=== PATIENT | female | born 1935 | race Caucasian/White ===

== ENCOUNTER 2016-07-18 18:46 | Inpatient (IN) | payer BC, OTHER ==
[~2016-07-18] VITALS: Ht 160 cm; Wt 83.2 kg
[~2016-07-18 18:46] MED LIST: AMOX500C3 PO; ASPI81TA28 PO; BRIM0.2S OPB; CHOL100010 PO; CRS20 PO; LISI-461 PO; NTRGSL/4 UT; TPRSR/25 PO; WARF5TAB90 PO
[2016-07-18] MEDS ORDERED: SODIUM CHLORIDE 0.9% 1000ML 250 ML IV STA (19:13)
[2016-07-18] MEDS ORDERED: SODIUM CHLORIDE 0.9% 1000ML 1,000 ML IV STA (19:13)
[2016-07-18] MEDS ORDERED: TRAV0.00 OPB (19:28)
--- NOTE | 2016-07-18 19:29 | EMERGENCY ROOM VISIT NOTE ---
History Report prepared by Suleman: Brooklynn Gray Under the Supervision of: Dr. William Kirkland M.D. First contact with patient: 19:08 Chief Complaint: RECTAL BLEEDING Stated Complaint: BLOOD FROM RECTUM History of Present Illness The patient is an 81 year old female who presents to the Emergency Room with complaints of persistent rectal bleeding that occurred at 1710 today. She currently rates her discomfort as a 5/10 in severity. The patient states that she noticed pressure today around 1710 and states that she went to have a bowel movement. She states that with bowel movement was mostly blood, but noticed some stool. The patient states that she had abdominal pain yesterday and additionally had vomited and felt nauseous. She denies any history of a GI bleed and states that she is no longer on Coumadin. The patient states that she takes 81 mg aspirin daily. She states that when she had her abdominal pain yesterday, she took an Advil. The patient denies any urinary symptoms, shortness of breath, or chest pain. She notes a history of diverticulitis. Source of History: patient Onset: 1710 today Position: other (rectal) Symptom Intensity: 5/10 Quality: other (bleeding) Timing: other (persistent) Associated Symptoms: + abdominal pain, + nausea, + vomiting, No SOB, No chest pain, No urinary symptoms Review of Systems See HPI for pertinent positives & negatives. A total of 10 systems reviewed and were otherwise negative. Past Medical & Surgical Medical Problems: (1) CAD (coronary artery disease) (2) CKD (chronic kidney disease) stage 3, GFR 30-59 ml/min (3) Dyslipidemia (4) Glaucoma (5) History of DVT (deep vein thrombosis) (6) HTN (hypertension) (7) Macular degeneration (8) Spinal stenosis (9) Vitamin D deficiency Surgical Problems: (1) H/O cataract removal with insertion of prosthetic lens (2) H/O heart artery stent (3) History of bilateral knee arthroplasty (4) History of bilateral total hip arthroplasty (5) History of carpal tunnel surgery (6) History of hysterectomy Family History Cancer FH: CAD (coronary artery disease) BROTHER FH: CHF (congestive heart failure) FATHER FH: heart disease Hypertension Social History Smoking Status: Never Smoker Alcohol Use: none Drug Use: none Housing Status: lives alone Occupation Status: unemployed Current/Historical Medications Scheduled Aspirin (Aspirin Ec), 81 MG PO QPM Cholecalciferol (Vitamin D), 1,000 INTER.UNIT PO QPM Lisinopril (Lisinopril), 5 MG PO QPM Metoprolol Succinate (Metoprolol Succinate ER), 12.5 MG PO QPM Rosuvastatin Calcium (Crestor), 20 MG PO QPM Travoprost (Travatan Z), 1 DROP OPB HS Scheduled PRN Amoxicillin (Amoxil), 2,000 MG PO UD PRN for Prior to Dental Appointment Nitroglycerin (Nitrostat), 0.4 MG UT UD PRN for Chest Pain Allergies Coded Allergies: No Known Allergies (Verified , 07/18/16) Physical Exam Vital Signs Date Time Temp Pulse Resp B/P Pulse Ox O2 Delivery O2 Flow Rate FiO2 07/18/16 20:45 64 07/18/16 18:49 37.0 76 18 180/81 95 Room Air Physical Exam GENERAL: Patient is in no acute distress. HEENT: No acute trauma, normocephalic atraumatic, mucous membranes moist, no nasal congestion, no scleral icterus. NECK: No stridor, no adenopathy, no meningismus, trachea is midline. LUNGS: Clear to auscultation bilaterally, no wheeze, no rhonchi, breath sounds equal. HEART: Without murmurs gallops or rubs, regular rate and rhythm. ABDOMEN: Slightly tender in epigastrium and somewhat along left abdomen. Soft, bowel sounds positive, no hernias, no peritonitis. RECTAL: Maroon, dark, blood per rectum, no external source for bleeding, no rectal mass by exam. Heme positive. EXTREMITIES: No cyanosis or edema, full range of motion of all the joints without pain or difficulty, no signs for acute trauma. NEUROLOGIC: Oriented x 3, no acute motor or sensory deficits, no focal weakness. SKIN: No rash, no jaundice, no diaphoresis. Medical Decision & Procedures ER Provider Diagnostic Interpretation: X-ray results as stated below per interpretation by me and the radiologist: CHEST ONE VIEW PORTABLE CLINICAL HISTORY: Abdominal pain. COMPARISON STUDY: Chest radiograph May 09, 2014. FINDINGS: There is no lucency under the hemidiaphragms to suggest pneumoperitoneum on this exam. Lung volumes are normal. Lungs are clear. There is no pneumothorax or pleural effusion. Cardiomegaly and mediastinal silhouette is stable. There is no evidence of pulmonary edema. Linear right lung opacity suggests atelectasis. Mild left basilar opacity favors atelectasis. IMPRESSION: No acute cardiopulmonary findings. Electronically signed by: David Holland M.D. 07/18/2016 7:38 PM Dictated Date/Time: 07/18/2016 7:37 PM Laboratory Results 07/18/16 19:40 Red Blood Count 4.06, Mean Corpuscular Volume 86.2, Mean Corpuscular Hemoglobin 29.1, Mean Corpuscular Hemoglobin Concent 33.7, Mean Platelet Volume 9.0, Neutrophils (%) (Auto) 61.9, Lymphocytes (%) (Auto) 22.6, Monocytes (%) (Auto) 11.4, Eosinophils (%) (Auto) 3.7, Basophils (%) (Auto) 0.1, Neutrophils # (Auto ) 4.49, Lymphocytes # (Auto) 1.64, Monocytes # (Auto) 0.83, Eosinophils # (Auto ) 0.27, Basophils # (Auto) 0.01 07/18/16 19:40 Test 07/18/16 19:40 07/18/16 20:29 White Blood Count 7.26 K/uL (4.8-10.8) Red Blood Count 4.06 M/uL (4.2-5.4) Hemoglobin 11.8 g/dL (12.0-16.0) Hematocrit 35.0 % (37-47) Mean Corpuscular Volume 86.2 fL (80-100) Mean Corpuscular Hemoglobin 29.1 pg (25-34) Mean Corpuscular Hemoglobin Concent 33.7 g/dl (32-36) Platelet Count 285 K/uL (130-400) Mean Platelet Volume 9.0 fL (7.4-10.4) Neutrophils (%) (Auto) 61.9 % Lymphocytes (%) (Auto) 22.6 % Monocytes (%) (Auto) 11.4 % Eosinophils (%) (Auto) 3.7 % Basophils (%) (Auto) 0.1 % Neutrophils # (Auto) 4.49 K/uL (1.4-6.5) Lymphocytes # (Auto) 1.64 K/uL (1.2-3.4) Monocytes # (Auto) 0.83 K/uL (0.11-0.59) Eosinophils # (Auto) 0.27 K/uL (0-0.5) Basophils # (Auto) 0.01 K/uL (0-0.2) RDW Standard Deviation 43.8 fL (36.4-46.3) RDW Coefficient of Variation 13.9 % (11.5-14.5) Immature Granulocyte % (Auto) 0.3 % Immature Granulocyte # (Auto) 0.02 K/uL (0.00-0.02) Prothrombin Time 10.9 SECONDS (9.0-12.0) Prothromb Time International Ratio 1.0 (0.9-1.1) Activated Partial Thromboplast Time 28.9 SECONDS (21.0-31.0) Partial Thromboplastin Ratio 1.1 Anion Gap 6.0 mmol/L (3-11) Est Creatinine Clear Calc Drug Dose 37.9 ml/min Estimated GFR () 49.1 Estimated GFR (Non- 42.4 BUN/Creatinine Ratio 18.0 (10-20) Calcium Level 9.4 mg/dl (8.5-10.1) Total Bilirubin 0.2 mg/dl (0.2-1) Aspartate Amino Transf (AST/SGOT) 23 U/L (15-37) Alanine Aminotransferase (ALT/SGPT) 18 U/L (12-78) Alkaline Phosphatase 154 U/L (45-117) Total Protein 7.6 gm/dl (6.4-8.2) Albumin 3.2 gm/dl (3.4-5.0) Globulin 4.4 gm/dl (2.5-4.0) Albumin/Globulin Ratio 0.7 (0.9-2) Laboratory results reviewed by me. Medications Administered Medications (Trade) Dose Ordered Sig/Allison Route Start Time Stop Time Status Last Admin Dose Admin Sodium Chloride 250 ml @ 999 mls/hr Q16M STAT IV 07/18/16 19:13 07/18/16 19:28 DC 07/18/16 20:04 999 MLS/HR Sodium Chloride 1,000 ml @ 200 mls/hr Q5H STAT IV 07/18/16 19:13 07/19/16 00:12 07/18/16 20:04 200 MLS/HR Pantoprazole Sodium 80 mg/ Dextrose 120 ml @ 480 mls/hr TODAY@1945 IV 07/18/16 19:45 07/18/16 19:59 DC 07/18/16 19:58 480 MLS/HR Pantoprazole Sodium/Dextrose (Protonix Inj/D5 100ml) 100 ml @ 20 mls/hr Q5H IV 07/18/16 20:00 07/19/16 00:59 07/18/16 19:58 20 MLS/HR ECG Indication: other (GI bleed) Rate (beats per minute): 64 Rhythm: normal sinus Findings: no acute ischemic change, no ectopy ED Course 1911: The patient was evaluated in room B8. A complete history and physical exam was performed. 1912: Ordered Sodium Chloride 1000 ml @ 200 mls/hr IV, Sodium Chloride 250 mls/ hr IV. 1944: Ordered Pantoprazole Sodium 80 mg/Dextrose 120 ml @ 480 mls/hr IV. 1999: Ordered Pantoprazole Sodium 40 mg/Dextrose 100 ml @ 20 mls/hr IV. 2026: I discussed the patients case with Rayna Carmichael. She is going to evaluate the patient for further treatment. 2030: I reevaluated the patient and she is resting comfortably. I discussed the exam findings with her and I discussed the treatment plan. She verbalized complete understanding and agreement. She is going to be evaluated for further treatment. Medical Decision The patient is an 81 year old female who presents to the ED with complaints of rectal bleeding. Differential diagnoses considered include upper or lower GI bleeding, diverticular bleeding, ulcer or gastritis, coagulopathy, anemia, electrolyte imbalance. There is no leukocytosis or concerning anemia. No significant electrolyte abnormality, kidney failure, hepatitis. There is no coagulopathy. Chest film shows no free air or pneumonia. EKG shows a sinus rhythm, no acute ischemia. The patient was given IV saline, she received IV Protonix. The patient is doing well, she is stable. She does have maroon-colored blood per my rectal exam and likely has a lower GI bleed. Admission/observation is warranted. I spoke with the patient and case management. The on-call hospitalist was consulted. Consults Time Called: 2025 Consulting Physician: Rayna Carmichael Returned Call: 2026 I discussed the patients case with Rayna Carmichael. She is going to evaluate the patient for further treatment. Impression Primary Impression: Rectal bleeding Scribe Attestation The scribe's documentation has been prepared under my direction and personally reviewed by me in its entirety. I confirm that the note above accurately reflects all work, treatment, procedures, and medical decision making performed by me. Departure Information Dispostion Being Evaluated By Hospitalist Margarito Pace M.D. (PCP)
--- NOTE | 2016-07-18 19:39 | DIAGNOSTIC IMAGING REPORT ---
CHEST ONE VIEW PORTABLE CLINICAL HISTORY: Abdominal pain. COMPARISON STUDY: Chest radiograph May 09, 2014. FINDINGS: There is no lucency under the hemidiaphragms to suggest pneumoperitoneum on this exam. Lung volumes are normal. Lungs are clear. There is no pneumothorax or pleural effusion. Cardiomegaly and mediastinal silhouette is stable. There is no evidence of pulmonary edema. Linear right lung opacity suggests atelectasis. Mild left basilar opacity favors atelectasis. IMPRESSION: No acute cardiopulmonary findings. Electronically signed by: David Holland M.D. 07/18/2016 7:38 PM Dictated Date/Time: 07/18/2016 7:37 PM
[2016-07-18] MEDS ORDERED: PANTOprazole INJ 80 MG in DEXTROSE 5% 100ML IV SCH (19:45)
[2016-07-18 19:52] LABS: BASO % 0.1 %; BASO ABS # 0.01 K/uL (0-0.2); COMPLETE YES; EOS % 3.7 %; IG% 0.3 %; LYMPH % 22.6 %; LYMPH ABS # 1.64 K/uL (1.2-3.4); MEAN CELL VOLUME 86.2 fL (80-100); MEAN CORPUSCULAR HEMOGLOBIN 29.1 pg (25-34); MEAN CORPUSCULAR HGB CONC 33.7 g/dl (32-36); MONO % 11.4 %; NEUT % 61.9 %; PLATELET COUNT 285 K/uL (130-400); RED BLOOD COUNT 4.06 M/uL (4.2-5.4); WHITE BLOOD COUNT 7.26 K/uL (4.8-10.8)
[2016-07-18] MEDS ORDERED: PANTOprazole INJ 40 MG in DEXTROSE 5% 100ML IV SCH (20:00)
[2016-07-18 20:02] LABS: PARTIAL THROMBOPLASTIN RATIO 1.1; PROTHROMBIN TIME (PATIENT) 10.9 SECONDS (9.0-12.0)
[2016-07-18 20:14] LABS: CALCIUM 9.4 mg/dl (8.5-10.1); CREATININE 1.2 mg/dl (0.60-1.20); POTASSIUM 3.9 mmol/L (3.5-5.1)
[2016-07-18 20:17] LABS: ALB/GLOB RATIO 0.7 (0.9-2)
[2016-07-18] MEDS ORDERED: ACETAMINOPHEN 325 MG TAB PO PRN (21:15)
[2016-07-18] MEDS ORDERED: OPTIRAY 320 IV PRN (21:15)
[2016-07-18] MEDS ORDERED: NITROGLYCERIN 0.4 MG SL PER TAB CHARGE SL PRN (21:15)
[2016-07-18] MEDS ORDERED: ONDANSETRON INJ 2 MG/ML 2 ML VIAL IV PRN (21:15)
--- NOTE | 2016-07-18 21:48 | History and Physical ---
History & Physical Date & Time of Service: Jul 18, 2016 at 21:27 Chief Complaint: Blood From Rectum Primary Care Physician: Margarito aDy M.D. History of Present Illness Source: patient This is an 81 y/o female with PMHx of CKD stage 3, CAD s/p stent placement, HTN , Dyslipidemia and other problems as outlined below who presents to the ED c/o rectal bleed that began this evening. Pt reports that around 1710 she noticed bright red blood in her BM. She states that it "filled the toilet bowl". Her sxs are assoc with LLQ abd pain and N/V yesterday. She had one more episode of bloody BM before leaving for the ED. Pt takes a baby ASA daily but is not on any other anticoagulation. She reports that she was told she had diverticulitis "years" ago but she has never had a GI bleed and never required a transfusion. Last colonoscopy was in 2005 which showed diverticulosis throughout the colon. Pt denies fever/chills, diaphoresis, chest pain, palpitations, SOB, bladder issues, LE edema, calf pain, lightheadedness/dizziness. In the ED, vitals are stable. HgB 11.8. BUN 22. Pt has not had any more bleeding since arrival to the ED. She is hemodynamically stable and will be admitted for further evaluation and treatment. Past Medical/Surgical History Medical Problems: (1) CAD (coronary artery disease) Permanent Comment: DENA to RCA 06/2009 cath 06/2010 showed widely patent RCA and no progression of disease Status: Chronic (2) CKD (chronic kidney disease) stage 3, GFR 30-59 ml/min Status: Chronic (3) Dyslipidemia Status: Chronic (4) Glaucoma Status: Chronic (5) History of DVT (deep vein thrombosis) Status: Resolved (6) HTN (hypertension) Status: Chronic (7) Macular degeneration Status: Chronic (8) Spinal stenosis Status: Chronic (9) Vitamin D deficiency Status: Chronic Surgical Problems: (1) H/O cataract removal with insertion of prosthetic lens Status: Resolved (2) H/O heart artery stent Permanent Comment: DENA to RCA in 2009 Status: Resolved (3) History of bilateral knee arthroplasty Status: Resolved (4) History of bilateral total hip arthroplasty Status: Resolved (5) History of carpal tunnel surgery Status: Resolved (6) History of hysterectomy Status: Resolved Family History Cancer FH: CAD (coronary artery disease) BROTHER FH: CHF (congestive heart failure) FATHER FH: heart disease Hypertension Social History Smoking Status: Never Smoker Alcohol Use: occasionally (beer) Drug Use: none Marital Status: single Housing status: lives alone Occupational Status: retired Immunizations History of Influenza Vaccine: Yes History of Tetanus Vaccine?: UTD History of Pneumococcal: Unknown History of Hepatitis B Vaccine: Unknown Multi-Drug Resistant Organisms History of MDRO: No Allergies Coded Allergies: No Known Allergies (Verified , 07/18/16) Home Medications Scheduled Aspirin (Aspirin Ec), 81 MG PO QPM Cholecalciferol (Vitamin D), 1,000 INTER.UNIT PO QPM Lisinopril (Lisinopril), 5 MG PO QPM Metoprolol Succinate (Metoprolol Succinate ER), 12.5 MG PO QPM Rosuvastatin Calcium (Crestor), 20 MG PO QPM Travoprost (Travatan Z), 1 DROP OPB HS Scheduled PRN Amoxicillin (Amoxil), 2,000 MG PO UD PRN for Prior to Dental Appointment Nitroglycerin (Nitrostat), 0.4 MG UT UD PRN for Chest Pain Review of Systems Constitutional: No chills, No fatigue, No fever, No sweats, No weakness Eyes: No worsening of vision ENT: No hearing loss Respiratory: No cough, No shortness of breath Cardiovascular: No chest pain, No claudication, No edema, No palpitations Abdomen: + GI bleeding, + nausea, + vomiting, No constipation, No diarrhea, No pain Musculoskeletal: No calf pain, No swelling Genitourinary - Female: No dysuria Neurologic: No weakness Psychiatric: No depression symptoms Endocrine: No fatigue Hematologic / Lymphatic: + abnormal bleeding/bruising (see above) Integumentary: No new/changing skin lesions Physical Exam Vital Signs Date Time Temp Pulse Resp B/P Pulse Ox O2 Delivery O2 Flow Rate FiO2 07/18/16 20:45 64 07/18/16 18:49 37.0 76 18 180/81 95 Room Air General Appearance: WD/WN, no apparent distress, + pertinent finding (Pt is sitting up in bed with son at bedside ) Head: normocephalic, atraumatic Eyes: normal inspection ENT: hearing grossly normal Neck: supple Respiratory/Chest: chest non-tender, lungs clear, normal breath sounds, no respiratory distress Cardiovascular: regular rate, rhythm, no edema, no murmur Abdomen/GI: normal bowel sounds, soft, + tenderness (LLQ) Back: normal inspection Extremities/Musculoskelatal: normal inspection, no calf tenderness, no pedal edema Neurologic/Psych: alert, normal mood/affect, oriented x 3 Skin: normal color, warm/dry Diagnostics Laboratory Results Results Past 24 Hours Test 07/18/16 19:40 07/18/16 21:14 Range/Units White Blood Count 7.26 4.8-10.8 K/uL Red Blood Count 4.06 4.2-5.4 M/uL Hemoglobin 11.8 12.0-16.0 g/dL Hematocrit 35.0 37-47 % Mean Corpuscular Volume 86.2 80-100 fL Mean Corpuscular Hemoglobin 29.1 25-34 pg Mean Corpuscular Hemoglobin Concent 33.7 32-36 g/dl Platelet Count 285 130-400 K/uL Mean Platelet Volume 9.0 7.4-10.4 fL Neutrophils (%) (Auto) 61.9 % Lymphocytes (%) (Auto) 22.6 % Monocytes (%) (Auto) 11.4 % Eosinophils (%) (Auto) 3.7 % Basophils (%) (Auto) 0.1 % Neutrophils # (Auto) 4.49 1.4-6.5 K/uL Lymphocytes # (Auto) 1.64 1.2-3.4 K/uL Monocytes # (Auto) 0.83 0.11-0.59 K/uL Eosinophils # (Auto) 0.27 0-0.5 K/uL Basophils # (Auto) 0.01 0-0.2 K/uL RDW Standard Deviation 43.8 36.4-46.3 fL RDW Coefficient of Variation 13.9 11.5-14.5 % Immature Granulocyte % (Auto) 0.3 % Immature Granulocyte # (Auto) 0.02 0.00-0.02 K/uL Prothrombin Time 10.9 9.0-12.0 SECONDS Prothromb Time International Ratio 1.0 0.9-1.1 Activated Partial Thromboplast Time 28.9 21.0-31.0 SECONDS Partial Thromboplastin Ratio 1.1 Sodium Level 139 136-145 mmol/L Potassium Level 3.9 3.5-5.1 mmol/L Chloride Level 106 98-107 mmol/L Carbon Dioxide Level 27 21-32 mmol/L Anion Gap 6.0 3-11 mmol/L Blood Urea Nitrogen 22 7-18 mg/dl Creatinine 1.20 0.60-1.20 mg/dl Est Creatinine Clear Calc Drug Dose 37.9 ml/min Estimated GFR () 49.1 Estimated GFR (Non- 42.4 BUN/Creatinine Ratio 18.0 10-20 Random Glucose 99 70-99 mg/dl Calcium Level 9.4 8.5-10.1 mg/dl Total Bilirubin 0.2 0.2-1 mg/dl Aspartate Amino Transf (AST/SGOT) 23 15-37 U/L Alanine Aminotransferase (ALT/SGPT) 18 12-78 U/L Alkaline Phosphatase 154 45-117 U/L Total Protein 7.6 6.4-8.2 gm/dl Albumin 3.2 3.4-5.0 gm/dl Globulin 4.4 2.5-4.0 gm/dl Albumin/Globulin Ratio 0.7 0.9-2 Diagnostic Radiology CXR IMPRESSION: No acute cardiopulmonary findings. Impression Assessment and Plan RECTAL BLEED; POSSIBLY SECONDARY TO ACUTE DIVERTICULITIS pt presented with c/o rectal bleed that began this evening assoc with LLQ abd pain -admit to telemetry -pt is not on anticoagulation and does not use NSAIDs -Hgb currently 11.8; will continue to monitor with H&H q 8h and transfuse PRN HgB <10 (with h/o heart disease) -obtain CT abd/pelvis to r/o diverticulitis -hold ASA -cont IVF and Protonix drip -type and screen completed -consult GI, Dr. Bobo-pending input -pt appears to be hemodynamically stable -continue to monitor closely CKD STAGE 3 -creatinine at baseline -cont to monitor with prp daily and avoid nephrotoxic agents when able CORONARY ARTERY DISEASE -s/p stent placement to RCA in 2009 -hold ASA due to GI bleed -cont metoprolol and statin -pt denies anginal sxs -monitor HTN -BP stable -cont lisinopril and metoprolol -monitor DYSLIPIDEMIA -cont statin DVT PROPHYLAXIS -SCDs only in setting of GI bleed CODE STATUS -FULL CODE per discussion with patient upon admission DISPO Pt seen in collaboration with Dr Morris. Please see her addendum for further details. Thanks! -Of note: patient will be followed by Dr. Pal starting tomorrow AM. ATTENDING ADDENDUM Record reviewed. Patient interviewed and examined. I have examined the patient and agree with the findings above. Care coordinated with Laura Rivera PA-C. Please refer to her documentation for patient's history. Carri Morris, DO Hospitalist VTE Prophylaxis VTE Risk Assessment Done? Y/N: Yes Risk Level: Moderate
--- NOTE | 2016-07-18 22:18 | DIAGNOSTIC IMAGING REPORT ---
CT OF THE ABDOMEN AND PELVIS WITH CONTRAST CLINICAL HISTORY: Blood from rectum. Evaluate for acute diverticulitis. COMPARISON STUDY: CT of the abdomen and pelvis June 01, 2009. TECHNIQUE: Following IV administration of 116 mL of Optiray-320, axial images of the abdomen and pelvis were obtained from the lung bases to the proximal femurs. Images were reviewed in the axial, sagittal, and coronal planes. IV contrast was administered without complication. CT DOSE: 627.17 mGy.cm FINDINGS: Visualized portions of the lower lungs demonstrate a 5 mm right lower lobe nodule shown image 29 of 441 which is unchanged since CT of June 01, 2009. Therefore, this is benign. There is a small hiatal hernia. Moderate cardiomegaly is noted. The liver, spleen, adrenal glands are unremarkable. A gallstone is noted within the gallbladder. There is no pericholecystic infiltration. There may be mild infiltration adjacent to the pancreatic neck. There is no pancreatic ductal dilatation. A right renal cyst is noted. There are suspected bilateral parapelvic cysts. Moderate renal cortical thinning is noted. There is no evidence for a bowel obstruction. There is extensive pancolonic diverticulosis. There is mild infiltration and colonic wall thickening of the distal descending colon. There is no free air or abscess. Images of the pelvis are degraded by streak artifact from bilateral hip arthroplasties. No suspicious osseous lesions are present. IMPRESSION: 1. Mild acute diverticulitis of the distal descending colon. No free air or abscess. Severe pancolonic diverticulosis. 2. Possible minimal peripancreatic infiltration. This could be correlated with laboratory evidence of acute pancreatitis. 3. Cholelithiasis. Electronically signed by: David Holland M.D. 07/18/2016 10:17 PM Dictated Date/Time: 07/18/2016 10:08 PM
[2016-07-18 23:20] VITALS: BP 104/64; PULSE 60; TEMP 36.7; O2SAT 98; Ht 160 cm; Wt 83.2 kg
[2016-07-18] MEDS: SODIUM CHLORIDE 0.9% 1000ML 1,000 ML IV SCH (23:53)
[2016-07-18] MEDS: PANTOprazole INJ 40 MG in DEXTROSE 5% 100ML IV SCH (23:53)
[2016-07-19 02:29] LABS: HEMATOCRIT 31.3 % (37-47); MEAN CORPUSCULAR HEMOGLOBIN 28.8 pg (25-34); MEAN CORPUSCULAR HGB CONC 33.5 g/dl (32-36); MEAN PLATELET VOLUME 9.2 fL (7.4-10.4); PLATELET COUNT 246 K/uL (130-400); RED BLOOD COUNT 3.64 M/uL (4.2-5.4); WHITE BLOOD COUNT 6.74 K/uL (4.8-10.8)
[2016-07-19 02:46] LABS: BUN/CREATININE RATIO 17.7 (10-20); CALCIUM 8.5 mg/dl (8.5-10.1); CREATININE 1.1 mg/dl (0.60-1.20); POTASSIUM 3.9 mmol/L (3.5-5.1)
[2016-07-19 03:55] VITALS: BP_SYST 158; BP_SYST 159; BP_SYST 175; BP_DIAS 80; BP_DIAS 83; BP_DIAS 85; PULSE 63; TEMP 36.4; O2SAT 96
[2016-07-19] MEDS: METRONIDAZOLE / NSS 500 MG in PREMIXED NSS 100 ML IV SCH ×3 (04:05→19:29)
[2016-07-19] MEDS: PANTOprazole INJ 40 MG in DEXTROSE 5% 100ML IV SCH ×4 (04:53→21:25)
[2016-07-19] MEDS: SODIUM CHLORIDE 0.9% 1000ML 1,000 ML IV SCH (05:27)
[2016-07-19] MEDS: CIPROFLOXACIN / D5W 400 MG in PREMIXED IN D5W 200 ML IV SCH ×2 (05:27→15:42)
[2016-07-19 06:58] VITALS: BP 112/68; PULSE 52; TEMP 36.7; O2SAT 94
[2016-07-19] MEDS ORDERED: PANTOprazole INJ 40 MG in SYRINGE 0 ML IV SCH (09:00)
--- NOTE | 2016-07-19 09:20 | Gastrointestinal Consultation ---
Gastrointestinal Consultation Date of Consultation: Jul 19, 2016 Consulting Physician: Kosta Reason for Consultation: rectal bleed History of Present Illness Patient is a 81 year old female with past medical history significant for CAD, HTN, macular degeneration, HTN, glaucoma, chronic ischemic heart disease, vitamin D deficiency, spinal stenosis, hyperlipidemia, raynaud's, history of DVT and CKD3. She presented to the ED with episodes of rectal bleeding, GI was consulted for management. She reports that yesterday she started with left lower quadrant abdominal pain. The pain was constant and did not radiate. She reports it was a sharp pain. There was a sudden urge to have a BM - this was BRB with clots and a small amount of stool. She had a few more episodes of bloody BM at home before seeking medical attention. This morning she reports she had a formed BM with less blood and without clots. She is denying any nausea or vomiting. No fever, chills, chest pain, SOB. She reports that she wants to go home. CT ABD: 07/18/16: Mild acute diverticulitis of the distal descending colon. No free air or abscess. Severe pancolonic diverticulosis. Possible minimal peripancreatic infiltration. This could be correlated with laboratory evidence of acute pancreatitis. Cholelithiasis. Colonoscopy 06/01/2005: The perianal and digital rectal examinations were normal. Multiple small and large-mouthed diverticula were found in the entire colon. Internal hemorrhoids were seen. Past Medical/Surgical History Medical Problems: (1) Rectal bleeding Status: Acute Family History Cancer FH: CAD (coronary artery disease) BROTHER FH: CHF (congestive heart failure) FATHER FH: heart disease Hypertension Social History Smoking Status: Unknown if Ever Smoked Alcohol Use: none Drug Use: none Marital Status: single Housing Status: lives alone Occupation Status: retired Allergies Coded Allergies: No Known Allergies (Verified , 07/18/16) Current Medications Home Meds and Scripts Medications Dose Route/Sig Max Daily Dose Days Date Category Dose Instructions Travatan Z (Travoprost) 0.004 % Ananda 1 Drop OPB HS 07/18/16 Reported Aspirin Ec (Aspirin) 81 Mg Tab 81 Mg PO QPM 03/01/14 Reported Amoxil (Amoxicillin) 500 Mg Cap 2,000 Mg PO UD PRN 03/01/14 Reported NEEDED ONE HOUR PRIOR TO DENTAL APPOINTMENTS. Lisinopril 10 Mg Tab 5 Mg PO QPM 03/01/14 Reported Crestor (Rosuvastatin Calcium) 20 Mg Tab 20 Mg PO QPM 03/01/14 Reported Metoprolol Succinate ER (Metoprolol Succinate) 25 Mg Tabcr 12.5 Mg PO QPM 03/01/14 Reported Vitamin D (Cholecalciferol) 1,000 Inter.unit Tab 1,000 Inter.unit PO QPM 11/19/10 Reported Nitrostat (Nitroglycerin) 0.4 Mg Tab 0.4 Mg UT UD PRN 11/19/10 Reported Review of Systems Constitutional: No chills, No fever Respiratory: No cough, No shortness of breath Cardiac: No chest pain, No edema Abdomen: + pain, No GI bleeding (lower, BRB, mixed with stool, no clots today) , No constipation, No diarrhea, No nausea, No vomiting Physical Exam Date Time Temp Pulse Resp B/P Pulse Ox O2 Delivery O2 Flow Rate FiO2 07/19/16 06:58 36.7 52 18 112/68 94 Room Air 07/19/16 04:00 Room Air 07/19/16 03:55 36.4 63 18 158/83 96 Room Air 159/80 175/85 07/19/16 00:00 Room Air 07/18/16 23:20 36.7 60 20 104/64 98 Room Air 07/18/16 22:07 37.0 63 20 175/87 95 07/18/16 21:26 63 20 07/18/16 21:21 63 16 07/18/16 21:16 66 23 07/18/16 21:12 175/87 07/18/16 21:11 64 25 07/18/16 21:06 66 20 07/18/16 21:01 61 15 07/18/16 20:56 67 24 07/18/16 20:51 64 27 07/18/16 20:46 65 17 07/18/16 20:45 64 07/18/16 18:49 37.0 76 18 180/81 95 Room Air General Appearance: no apparent distress Eyes: PERRL ENT: hearing grossly normal Neck: supple, trachea midline Respiratory/Chest: lungs clear, normal breath sounds, no respiratory distress, no accessory muscle use Cardiovascular: regular rate, rhythm, no edema, no gallop, no JVD Abdomen: normal bowel sounds, soft, no organomegaly, no pulsatile mass, + tenderness (left lower quadrant abdominal pain, worse with palpation, no radiation of pain) Neurologic/Psych: alert, normal mood/affect, oriented x 3 Skin: normal color, no jaundice, warm/dry Laboratory Results Last 24 Hours Test 07/18/16 19:40 07/18/16 21:14 07/19/16 02:13 White Blood Count 7.26 K/uL 6.74 K/uL Red Blood Count 4.06 M/uL 3.64 M/uL Hemoglobin 11.8 g/dL 10.5 g/dL Hematocrit 35.0 % 31.3 % Mean Corpuscular Volume 86.2 fL 86.0 fL Mean Corpuscular Hemoglobin 29.1 pg 28.8 pg Mean Corpuscular Hemoglobin Concent 33.7 g/dl 33.5 g/dl Platelet Count 285 K/uL 246 K/uL Mean Platelet Volume 9.0 fL 9.2 fL Neutrophils (%) (Auto) 61.9 % Lymphocytes (%) (Auto) 22.6 % Monocytes (%) (Auto) 11.4 % Eosinophils (%) (Auto) 3.7 % Basophils (%) (Auto) 0.1 % Neutrophils # (Auto) 4.49 K/uL Lymphocytes # (Auto) 1.64 K/uL Monocytes # (Auto) 0.83 K/uL Eosinophils # (Auto) 0.27 K/uL Basophils # (Auto) 0.01 K/uL RDW Standard Deviation 43.8 fL 43.8 fL RDW Coefficient of Variation 13.9 % 13.9 % Immature Granulocyte % (Auto) 0.3 % Immature Granulocyte # (Auto) 0.02 K/uL Prothrombin Time 10.9 SECONDS Prothromb Time International Ratio 1.0 Activated Partial Thromboplast Time 28.9 SECONDS Partial Thromboplastin Ratio 1.1 Sodium Level 139 mmol/L 143 mmol/L Potassium Level 3.9 mmol/L 3.9 mmol/L Chloride Level 106 mmol/L 110 mmol/L Carbon Dioxide Level 27 mmol/L 23 mmol/L Anion Gap 6.0 mmol/L 10.0 mmol/L Blood Urea Nitrogen 22 mg/dl 20 mg/dl Creatinine 1.20 mg/dl 1.10 mg/dl Est Creatinine Clear Calc Drug Dose 37.9 ml/min 41.3 ml/min Estimated GFR () 49.1 54.5 Estimated GFR (Non- 42.4 47.0 BUN/Creatinine Ratio 18.0 17.7 Random Glucose 99 mg/dl 110 mg/dl Calcium Level 9.4 mg/dl 8.5 mg/dl Total Bilirubin 0.2 mg/dl Aspartate Amino Transf (AST/SGOT) 23 U/L Alanine Aminotransferase (ALT/SGPT) 18 U/L Alkaline Phosphatase 154 U/L Total Protein 7.6 gm/dl Albumin 3.2 gm/dl Globulin 4.4 gm/dl Albumin/Globulin Ratio 0.7 Lactic Acid Level 0.9 mmol/L Impression Patient is a 81 year old female with LLQ abdominal pain and BRBPR. Differentials include diverticular bleed, ischemic colitis, malignancy etc. There is CT evidence of acute diverticulitis. She reports the BRBPR is slowing down in frequency and quantity. HGB today 10.5 after IVFs Plan Trend H&H Transfuse as needed Cover with IV cipro/flagyl while admitted Continue treatment with cipro/flagyl as an outpatient Advance to low residue diet as tolerated miralax once daily Discussed colonoscopy suggest 6 weeks as an outpatient I have seen and evaluated the patient. Gastroenterology is consulted at for evaluation of diverticulitis and hematochezia. The patient notes that she had sudden onset of left-sided abdominal discomfort with imaging showing evidence of diverticulitis. She also notes having hematochezia with bowel movements with blood on toilet paper and in the water. She does not have bloody bowel movements at this time and notes that her symptoms are improving. Physical examination No obvious distress Left lower quadrant with mild tenderness No peritoneal signs Impression: Patient with imaging evidence suggestive of diverticulitis. Her hematochezia is likely related to an anorectal etiology such as hemorrhoids or perhaps ischemic colitis. I would suggest that the patient complete a two-week course of antibiotics. I would suggest advancing her diet as tolerated. She will undergo a repeat colonoscopy as an outpatient in 6-8 weeks. Recommendations Complete a two-week course of antibiotics as you're doing Advance diet as tolerated Begin MiraLAX 17 g per day Please call with any questions or concerns, GI to sign off at this time.
[2016-07-19 11:24] VITALS: BP 105/56; PULSE 63; TEMP 36.8; O2SAT 95
[2016-07-19 12:43] LABS: HEMATOCRIT 33.2 % (37-47)
--- NOTE | 2016-07-19 13:27 | Progress Note ---
Medicine Progress Note Date & Time of Visit: Jul 19, 2016 at 13:20. Subjective patient seen sitting up in bed appears comfortable overall states abdominal pain has resolved (+) formed BM, minimal blood no chest pain,dyspnea, dizziness denies other symptoms Objective Last 8 Hrs Date Time Temp Pulse Resp B/P Pulse Ox O2 Delivery O2 Flow Rate FiO2 07/19/16 11:24 36.8 63 18 105/56 95 Room Air 07/19/16 08:45 Room Air 07/19/16 06:58 36.7 52 18 112/68 94 Room Air Physical Exam: General- oriented x 3, not in distress, speaks in sentences with no effort Head- atraumatic Eyes- EOMI, anicteric ENT- oropharynx clear Neck- supple, no JVD, no adenopathy, no thyromegaly Lungs- clear breath sounds bilaterally Heart-normal rate, regular rhythm; no murmurs Abdomen- normal bowel sounds, soft, nontender Extremities- no pretibial edema, no calf tenderness; peripheral pulses intact Neuro- alert, oriented x 3; no gross deficits Skin- warm & dry Laboratory Results: Last 24 Hours Test 07/18/16 19:40 07/18/16 21:14 07/19/16 02:13 07/19/16 12:37 White Blood Count 7.26 K/uL 6.74 K/uL Red Blood Count 4.06 M/uL 3.64 M/uL Hemoglobin 11.8 g/dL 10.5 g/dL 11.0 g/dL Hematocrit 35.0 % 31.3 % 33.2 % Mean Corpuscular Volume 86.2 fL 86.0 fL Mean Corpuscular Hemoglobin 29.1 pg 28.8 pg Mean Corpuscular Hemoglobin Concent 33.7 g/dl 33.5 g/dl Platelet Count 285 K/uL 246 K/uL Mean Platelet Volume 9.0 fL 9.2 fL Neutrophils (%) (Auto) 61.9 % Lymphocytes (%) (Auto) 22.6 % Monocytes (%) (Auto) 11.4 % Eosinophils (%) (Auto) 3.7 % Basophils (%) (Auto) 0.1 % Neutrophils # (Auto) 4.49 K/uL Lymphocytes # (Auto) 1.64 K/uL Monocytes # (Auto) 0.83 K/uL Eosinophils # (Auto) 0.27 K/uL Basophils # (Auto) 0.01 K/uL RDW Standard Deviation 43.8 fL 43.8 fL RDW Coefficient of Variation 13.9 % 13.9 % Immature Granulocyte % (Auto) 0.3 % Immature Granulocyte # (Auto) 0.02 K/uL Prothrombin Time 10.9 SECONDS Prothromb Time International Ratio 1.0 Activated Partial Thromboplast Time 28.9 SECONDS Partial Thromboplastin Ratio 1.1 Sodium Level 139 mmol/L 143 mmol/L Potassium Level 3.9 mmol/L 3.9 mmol/L Chloride Level 106 mmol/L 110 mmol/L Carbon Dioxide Level 27 mmol/L 23 mmol/L Anion Gap 6.0 mmol/L 10.0 mmol/L Blood Urea Nitrogen 22 mg/dl 20 mg/dl Creatinine 1.20 mg/dl 1.10 mg/dl Est Creatinine Clear Calc Drug Dose 37.9 ml/min 41.3 ml/min Estimated GFR () 49.1 54.5 Estimated GFR (Non- 42.4 47.0 BUN/Creatinine Ratio 18.0 17.7 Random Glucose 99 mg/dl 110 mg/dl Calcium Level 9.4 mg/dl 8.5 mg/dl Total Bilirubin 0.2 mg/dl Aspartate Amino Transf (AST/SGOT) 23 U/L Alanine Aminotransferase (ALT/SGPT) 18 U/L Alkaline Phosphatase 154 U/L Total Protein 7.6 gm/dl Albumin 3.2 gm/dl Globulin 4.4 gm/dl Albumin/Globulin Ratio 0.7 Lactic Acid Level 0.9 mmol/L Assessment & Plan 81 year old female with history of CAD, HTN presenting with rectal bleed RECTAL BLEED; POSSIBLY SECONDARY TO ACUTE DIVERTICULITIS - CT abdomen noted - Hg stable at 11 - no recurrence - hold Aspirin - continue CIpro + Metro IV fluids change protonix to BID advance diet to clears for dinner - appreciate GI consult CORONARY ARTERY DISEASE -s/p stent placement to RCA in 2009 -hold ASA due to GI bleed -cont metoprolol and statin HTN - hold Lisinopril as BP on the low side - continue metoprolol -monitor CKD STAGE 3 - stable DYSLIPIDEMIA -cont statin DVT PROPHYLAXIS -SCDs only in setting of GI bleed CODE STATUS -FULL CODE per discussion with patient upon admission DISPO pending Current Inpatient Medications: Current Inpatient Medications Medications (Trade) Dose Ordered Sig/Allison Route Start Time Stop Time Status Last Admin Dose Admin Acetaminophen (Tylenol Tab) 650 mg Q4H PRN PO 07/18/16 21:15 08/17/16 21:14 Ondansetron HCl (Zofran Inj) 4 mg Q6H PRN IV 07/18/16 21:15 08/17/16 21:14 Nitroglycerin (Nitrostat Tab) 0.4 mg UD PRN SL 07/18/16 21:15 08/17/16 21:14 Ioversol (Optiray 320) 100 ml UD PRN IV 07/18/16 21:15 07/22/16 21:14 Metoprolol Succinate (Toprol Xl Tab) 12.5 mg QPM PO 07/19/16 21:00 08/18/16 20:59 Travoprost 1 drops 1 drops HS OPB 07/19/16 21:00 08/18/16 20:59 Pantoprazole Sodium 40 mg/ Dextrose 100 ml @ 20 mls/hr Q5H IV 07/19/16 01:00 08/18/16 00:59 07/19/16 10:11 20 MLS/HR Ciprofloxacin/ Dextrose 400 mg/ Prmx 200 ml @ 100 mls/hr Q12H IV 07/19/16 04:00 07/29/16 03:59 07/19/16 05:27 100 MLS/HR Metronidazole 500 mg/Prmx 100 ml @ 100 mls/hr Q8H IV 07/19/16 03:00 07/29/16 02:59 07/19/16 10:31 100 MLS/HR Dextrose/Sodium Chloride (D5W And Nss) 1,000 ml @ 100 mls/hr Q10H IV 07/19/16 12:30 08/18/16 12:29 UNV
[2016-07-19] MEDS: D5W AND NSS 1,000 ML IV SCH ×2 (13:42→23:39)
[2016-07-19 15:13] VITALS: BP 158/83; PULSE 58; TEMP 36.5; O2SAT 90
[2016-07-19 20:44] VITALS: BP 150/78; PULSE 64; TEMP 36.3; O2SAT 96
[2016-07-19] MEDS ORDERED: ZOLPIDEM TARTRATE 5 MG TAB PO PRN (21:00)
[2016-07-19] MEDS ORDERED: METOPROLOL SUCC 25MG EXT REL TAB PO SCH (21:00)
[2016-07-19] MEDS ORDERED: LISINOPRIL 5 MG TAB PO SCH (21:00)
[2016-07-19] MEDS ORDERED: TRAVOPROST Z 0.004% OPH SOLN 2.5 ML BTL OPB SCH (21:00)
[2016-07-19 23:55] VITALS: BP 97/62; PULSE 65; TEMP 36.7; O2SAT 92
[2016-07-20] VITALS (7 sets, daily range): BP systolic 112–130; BP diastolic 67–78; PULSE 61–77; TEMP 36.5–36.9; O2SAT 94–96
[2016-07-20 00:39] LABS: HEMATOCRIT 29.8 % (37-47)
[2016-07-20] MEDS: PANTOprazole INJ 40 MG in DEXTROSE 5% 100ML IV SCH ×2 (01:51→07:51)
[2016-07-20] MEDS: CIPROFLOXACIN / D5W 400 MG in PREMIXED IN D5W 200 ML IV SCH (04:17)
[2016-07-20] MEDS: METRONIDAZOLE / NSS 500 MG in PREMIXED NSS 100 ML IV SCH ×2 (04:17→11:28)
[2016-07-20 06:45] LABS: HEMATOCRIT 32.1 % (37-47)
[2016-07-20] MEDS: D5W AND NSS 1,000 ML IV SCH (09:30)
[2016-07-20] MEDS ORDERED: PANTOprazole SOD 40 MG TAB PO ONE (09:52)
--- NOTE | 2016-07-20 15:07 | Progress Note ---
Medicine Progress Note Date & Time of Visit: Jul 20, 2016 at 14:52. Subjective patient seen resting in bed, comfortable states she feels better overall denies any abdominal pain, nausea no BM, (+) flatus denies other symptoms states she is ready and would like to be discharged today Objective Last 8 Hrs Date Time Temp Pulse Resp B/P Pulse Ox O2 Delivery O2 Flow Rate FiO2 07/20/16 11:17 36.8 61 18 130/74 96 07/20/16 08:00 94 Room Air 07/20/16 07:56 36.9 63 18 126/78 94 Physical Exam: General- oriented x 3, not in distress, speaks in sentences with no effort Eyes- anicteric Neck- supple, no JVD Lungs- clear breath sounds bilaterally, no rales Heart-normal rate, regular rhythm; no murmurs Abdomen- normal bowel sounds,non distended, soft, nontender Extremities- no pretibial edema, no calf tenderness; peripheral pulses intact Neuro- alert, oriented x 3; no gross deficits Skin- warm & dry Laboratory Results: Last 24 Hours Test 07/19/16 18:27 07/20/16 00:31 07/20/16 06:27 Hemoglobin 10.5 g/dL 9.9 g/dL 10.6 g/dL Hematocrit 32.0 % 29.8 % 32.1 % Assessment & Plan 81 year old female with history of CAD, HTN presenting with rectal bleed ACUTE DIVERTICULITIS with RECTAL BLEED, Resolved - CT abdomen: IMPRESSION: 1. Mild acute diverticulitis of the distal descending colon. No free air or abscess. Severe pancolonic diverticulosis. 2. Possible minimal peripancreatic infiltration. This could be correlated with laboratory evidence of acute pancreatitis. 3. Cholelithiasis. - no recurrence of rectal bleed during admission - Hg remained stable at around 10-11 - evaluated by GI- Dr. Brambila/EVER Berumen - placed on IV CIpro + Metro IV fluids, Protonix Aspirin held - discharge plan: Cipro 400mg PO BID x 12 more days to complete 14 days Metro 500mg PO TID x 12 more days to complete 14 days Miralax daily colonoscopy in 6-8 weeks ff up with PCP in 1 week CORONARY ARTERY DISEASE -s/p stent placement to RCA in 2009 - resume Aspirin in 1 day if with no recurrence rectal bleed -cont metoprolol and statin HTN - continue Lisinopril and Metoprolol -monitor CKD STAGE 3 - stable DYSLIPIDEMIA -cont statin DVT PROPHYLAXIS -SCDs only in setting of GI bleed CODE STATUS -FULL CODE per discussion with patient upon admission DISPO d/c home ff up with Dr. Mario on Mond 07/25/16 at 10 20am. Current Inpatient Medications: Current Inpatient Medications Medications (Trade) Dose Ordered Sig/Allison Route Start Time Stop Time Status Last Admin Dose Admin Acetaminophen (Tylenol Tab) 650 mg Q4H PRN PO 07/18/16 21:15 08/17/16 21:14 Ondansetron HCl (Zofran Inj) 4 mg Q6H PRN IV 07/18/16 21:15 08/17/16 21:14 07/19/16 21:38 4 MG Nitroglycerin (Nitrostat Tab) 0.4 mg UD PRN SL 07/18/16 21:15 08/17/16 21:14 Ioversol (Optiray 320) 100 ml UD PRN IV 07/18/16 21:15 07/22/16 21:14 Metoprolol Succinate (Toprol Xl Tab) 12.5 mg QPM PO 07/19/16 21:00 08/18/16 20:59 07/19/16 21:27 12.5 MG Travoprost 1 drops 1 drops HS OPB 07/19/16 21:00 08/18/16 20:59 07/19/16 21:27 1 DROPS Ciprofloxacin/ Dextrose 400 mg/ Prmx 200 ml @ 100 mls/hr Q12H IV 07/19/16 04:00 07/29/16 03:59 07/20/16 04:17 100 MLS/HR Metronidazole 500 mg/Prmx 100 ml @ 100 mls/hr Q8H IV 07/19/16 03:00 07/29/16 02:59 07/20/16 11:28 100 MLS/HR Dextrose/Sodium Chloride (D5W And Nss) 1,000 ml @ 100 mls/hr Q10H IV 07/19/16 13:30 08/18/16 13:29 07/19/16 23:39 100 MLS/HR Zolpidem Tartrate (Ambien Tab) 5 mg HS PRN PO 07/19/16 21:00 08/18/16 20:59 07/19/16 21:26 5 MG Pantoprazole Sodium (Protonix Tab) 40 mg QAM PO 07/21/16 09:00 08/20/16 08:59
[2016-07-20] MEDS ORDERED: MRLP17X PO (15:21)
[2016-07-20] MEDS ORDERED: CPR500 PO (15:21)
[2016-07-20] MEDS ORDERED: MTR500 PO (15:21)
--- NOTE | 2016-07-20 15:25 | Discharge Instructions ---
Discharge Instructions Admission Reason for Admission: Rectal Bleeding Discharge Discharge Diagnosis / Problem: ACUTE DIVERTICULITIS Discharge Goals Goal(s): Diagnostic testing, Therapeutic intervention Activity Recommendations Activity Limitations: as noted below (NO HEAVY EXERTION UNTIL RE EVALUATED BY PRIMARY CARE PHYSICIAN.) RETURN TO ER IMMEDIATELY IF WITH RECURRENCE OF SYMPTOMS. SOFT DIET X 3-5 DAYS, THEN ADVANCE ACCORDINGLY. MAINTAIN LOW FIBER DIET, AVOID NUTS AND FRUITS WITH SEEDS. TAKE YOGURT WHILE ON ANTIBIOTICS. FOLLOW UP WITH DR. FLORIAN ON Monday07/25/16 AT 10:20AM. . Current Hospital Diet Patient's current hospital diet: AHA Diet (Heart Healthy), Full Liquid Diet Discharge Diet Recommended Diet: AHA Diet (Heart Healthy), Low Fiber Diet Pending Studies Studies pending at discharge: yes List of pending studies: BLOODWORK (CBC) Medical Emergencies . Who to Call and When: Medical Emergencies: If at any time you feel your situation is an emergency, please call 911 immediately. . Non-Emergent Contact Non-Emergency issues call your: Primary Care Provider Call Non-Emergent contact if: you have a fever, your pain is not controlled, you have any medication questions . Past History Medical & Surgical History: (1) Macular degeneration (2) Glaucoma (3) Vitamin D deficiency (4) Spinal stenosis (5) Rectal bleeding (6) HTN (hypertension) (7) Dyslipidemia (8) CKD (chronic kidney disease) stage 3, GFR 30-59 ml/min (9) History of DVT (deep vein thrombosis) (10) CAD (coronary artery disease) (11) History of bilateral knee arthroplasty (12) History of bilateral total hip arthroplasty (13) History of carpal tunnel surgery (14) History of hysterectomy (15) H/O cataract removal with insertion of prosthetic lens (16) H/O heart artery stent . "Provider Documentation" section prepared by Rd Pal. VTE Core Measure Inpt VTE Proph given/why not?: SCD's, Contraindicated
--- NOTE | 2016-07-20 15:28 | Discharge Summary ---
Discharge Summary Date of Service Jul 20, 2016. Discharge Summary Admission Date: Jul 18, 2016 at 21:07 Discharge Date: Jul 20, 2016 Discharge Disposition: Home Principal Diagnosis: ACUTE DIVERTICULITIS with RECTAL BLEED, Resolved Secondary Diagnoses/Problems: Please refer to hospital course below. Consultations: GI Dr. Brambila Pending Studies/Follow-Up: Repeat CBC on follow up; Colonoscopy in 6-8 weeks Medication Reconciliation New Medications: Ciprofloxacin (Ciprofloxacin HCl) 500 Mg Tab 1 TAB PO BID for 12 Days, #24 TABS 0 Refills Metronidazole (Metronidazole) 500 Mg Tab 1 TAB PO TID for 12 Days, #36 TABS 0 Refills Polyethylene (Miralax) 17 Gm Pow 1 PKT PO DAILY for 30 Days, #30 PKT 2 Refills Continued Medications: Amoxicillin (Amoxil) 500 Mg Cap 2000 MG PO UD PRN for Prior to Dental Appointment NEEDED ONE HOUR PRIOR TO DENTAL APPOINTMENTS. Aspirin (Aspirin Ec) 81 Mg Tab 81 MG PO QPM Cholecalciferol (Vitamin D) 1,000 Inter.unit Tab 1000 INTER.UNIT PO QPM, 0 Refills Lisinopril (Lisinopril) 10 Mg Tab 5 MG PO QPM Metoprolol Succinate (Metoprolol Succinate ER) 25 Mg Tabcr 12.5 MG PO QPM Nitroglycerin (Nitrostat) 0.4 Mg Tab 0.4 MG UT UD PRN for Chest Pain, 0 Refills Rosuvastatin Calcium (Crestor) 20 Mg Tab 20 MG PO QPM Travoprost (Travatan Z) 0.004 % Ananda 1 DROP OPB HS, #2 Admission Information HPI (per Admitting provider): This is an 81 y/o female with PMHx of CKD stage 3, CAD s/p stent placement, HTN , Dyslipidemia and other problems as outlined below who presents to the ED c/o rectal bleed that began this evening. Pt reports that around 1710 she noticed bright red blood in her BM. She states that it "filled the toilet bowl". Her sxs are assoc with LLQ abd pain and N/V yesterday. She had one more episode of bloody BM before leaving for the ED. Pt takes a baby ASA daily but is not on any other anticoagulation. She reports that she was told she had diverticulitis "years" ago but she has never had a GI bleed and never required a transfusion. Last colonoscopy was in 2005 which showed diverticulosis throughout the colon. Pt denies fever/chills, diaphoresis, chest pain, palpitations, SOB, bladder issues, LE edema, calf pain, lightheadedness/dizziness. In the ED, vitals are stable. HgB 11.8. BUN 22. Pt has not had any more bleeding since arrival to the ED. She is hemodynamically stable and will be admitted for further evaluation and treatment. Physical Exam (per Admitting): General Appearance: WD/WN, no apparent distress, + pertinent finding (Pt is sitting up in bed with son at bedside ) Head: normocephalic, atraumatic Eyes: normal inspection ENT: hearing grossly normal Neck: supple Respiratory/Chest: chest non-tender, lungs clear, normal breath sounds, no respiratory distress Cardiovascular: regular rate, rhythm, no edema, no murmur Abdomen/GI: normal bowel sounds, soft, + tenderness (LLQ) Back: normal inspection Extremities/Musculoskelatal: normal inspection, no calf tenderness, no pedal edema Neurologic/Psych: alert, normal mood/affect, oriented x 3 Skin: normal color, warm/dry Hospital Course 81 year old female with history of CAD, HTN presenting with rectal bleed ACUTE DIVERTICULITIS with RECTAL BLEED, Resolved - CT abdomen: IMPRESSION: 1. Mild acute diverticulitis of the distal descending colon. No free air or abscess. Severe pancolonic diverticulosis. 2. Possible minimal peripancreatic infiltration. This could be correlated with laboratory evidence of acute pancreatitis. 3. Cholelithiasis. - no recurrence of rectal bleed during admission - Hg remained stable at around 10-11 - evaluated by GI- Dr. Brambila/EVER Berumen - placed on IV CIpro + Metro IV fluids, Protonix Aspirin held - discharge plan: Cipro 500mg PO BID x 12 more days to complete 14 days Metro 500mg PO TID x 12 more days to complete 14 days Miralax daily colonoscopy in 6-8 weeks ff up with PCP in 1 week CORONARY ARTERY DISEASE -s/p stent placement to RCA in 2009 - resume Aspirin -cont metoprolol and statin HTN - continue Lisinopril and Metoprolol -monitor CKD STAGE 3 - stable DYSLIPIDEMIA -cont statin DVT PROPHYLAXIS -SCDs only in setting of GI bleed CODE STATUS -FULL CODE per discussion with patient upon admission DISPO d/c home ff up with Dr. Florian on 07/25/16 at 10 20am. Total time spent on discharge = 35 minutes This includes examination of the patient, discharge planning, medication reconciliation, and communication with other providers. Discharge Instructions Discharge Instructions Admission Reason for Admission: Rectal Bleeding Discharge Discharge Diagnosis / Problem: ACUTE DIVERTICULITIS Discharge Goals Goal(s): Diagnostic testing, Therapeutic intervention Activity Recommendations Activity Limitations: as noted below (NO HEAVY EXERTION UNTIL RE EVALUATED BY PRIMARY CARE PHYSICIAN.) RETURN TO ER IMMEDIATELY IF WITH RECURRENCE OF SYMPTOMS. SOFT DIET X 3-5 DAYS, THEN ADVANCE ACCORDINGLY. MAINTAIN LOW FIBER DIET, AVOID NUTS AND FRUITS WITH SEEDS. TAKE YOGURT WHILE ON ANTIBIOTICS. FOLLOW UP WITH DR. FLORIAN ON Monday07/25/16 AT 10:20AM. . Current Hospital Diet Patient's current hospital diet: AHA Diet (Heart Healthy), Full Liquid Diet Discharge Diet Recommended Diet: AHA Diet (Heart Healthy), Low Fiber Diet Pending Studies Studies pending at discharge: yes List of pending studies: BLOODWORK (CBC) Medical Emergencies . Who to Call and When: Medical Emergencies: If at any time you feel your situation is an emergency, please call 911 immediately. . Non-Emergent Contact Non-Emergency issues call your: Primary Care Provider Call Non-Emergent contact if: you have a fever, your pain is not controlled, you have any medication questions . Past History Medical & Surgical History: (1) Macular degeneration (2) Glaucoma (3) Vitamin D deficiency (4) Spinal stenosis (5) Rectal bleeding (6) HTN (hypertension) (7) Dyslipidemia (8) CKD (chronic kidney disease) stage 3, GFR 30-59 ml/min (9) History of DVT (deep vein thrombosis) (10) CAD (coronary artery disease) (11) History of bilateral knee arthroplasty (12) History of bilateral total hip arthroplasty (13) History of carpal tunnel surgery (14) History of hysterectomy (15) H/O cataract removal with insertion of prosthetic lens (16) H/O heart artery stent . "Provider Documentation" section prepared by Rd Pal. VTE Core Measure Inpt VTE Proph given/why not?: SCD's, Contraindicated
[2016-07-21] MEDS ORDERED: PANTOprazole SOD 40 MG TAB PO SCH (09:00)
== END 2016-07-20 16:01 | disposition home or self-care (01) | DRG 391 ==
LOC: ENRESERVTM → ENRESERVDT → C.EDB 18:48 → C.MED 21:07
PROVIDERS: ADMIT Hospitalist; ATTEND Internal Medicine
DX: K57.32 Diverticulitis of large intestine without perforation or abscess without bleeding (principal); K57.91 Diverticulosis of intestine, part unspecified, without perforation or abscess with bleeding; K62.5 Hemorrhage of anus and rectum; N18.3 Chronic kidney disease, stage 3 (moderate); I25.10 Atherosclerotic heart disease of native coronary artery without angina pectoris; E78.5 Hyperlipidemia, unspecified; E55.9 Vitamin D deficiency, unspecified; H40.9 Unspecified glaucoma; I12.9 Hypertensive chronic kidney disease with stage 1 through stage 4 chronic kidney disease, or unspecified chronic kidney disease; H35.30 Unspecified macular degeneration; M48.00 Spinal stenosis, site unspecified; Z95.5 Presence of coronary angioplasty implant and graft; Z86.718 Personal history of other venous thrombosis and embolism; Z96.653 Presence of artificial knee joint, bilateral; Z96.643 Presence of artificial hip joint, bilateral; Z79.82 Long term (current) use of aspirin; Z79.899 Other long term (current) drug therapy

== ENCOUNTER 2016-09-01 12:20 | Inpatient (IN) | payer BC, OTHER ==
[~2016-09-01] VITALS: Ht 162.6 cm; Wt 86.4 kg
[2016-09-01] VITALS (7 sets, daily range): BP systolic 142–168; BP diastolic 65–94; PULSE 83–98; TEMP 36.1–37.8; O2SAT 91–95; Ht 162.6 cm; Wt 86.4 kg
[~2016-09-01 12:20] MED LIST changes: -BRIM0.2S OPB; +TRAV0.00 OPB; -WARF5TAB90 PO
[2016-09-01] MEDS ORDERED: ZOLPIDEM TARTRATE 5 MG TAB PO PRN (13:30)
[2016-09-01] MEDS ORDERED: ONDA4TAB65 PO (14:12)
[2016-09-01] MEDS ORDERED: TRAM-453 PO (14:12)
[2016-09-01] MEDS ORDERED: IV FLUIDS COMPLETED PRN (14:15)
[2016-09-01] MEDS ORDERED: LEVALBUTEROL/IPRATROPIUM NEB INH PRN (14:15)
[2016-09-01] MEDS ORDERED: IPRATROPIUM BROMIDE NEB SOLN 0.02% 2.5 ML VIAL INH PRN (14:30)
[2016-09-01] MEDS ORDERED: LEVALBUTEROL 0.63MG/3 ML NEB INH PRN (14:30)
--- NOTE | 2016-09-01 14:40 | DIAGNOSTIC IMAGING REPORT ---
CHEST ONE VIEW PORTABLE CLINICAL HISTORY: cough, SOB, possible aspiration dyspnea COMPARISON STUDY: 07/18/2016 FINDINGS: Poorly defined parenchymal infiltrate left base. Diaphragms smooth. Lungs otherwise are clear. IMPRESSION: Poorly defined left basilar parenchymal infiltrate. Electronically signed by: Yvon West M.D. 09/01/2016 2:37 PM Dictated Date/Time: 09/01/2016 2:37 PM
[2016-09-01 14:46] LABS: HEMATOCRIT 37.3 % (37-47); MEAN CELL VOLUME 86.3 fL (80-100); MEAN CORPUSCULAR HEMOGLOBIN 29.4 pg (25-34); MEAN PLATELET VOLUME 9.1 fL (7.4-10.4); PLATELET COUNT 282 K/uL (130-400); RED BLOOD COUNT 4.32 M/uL (4.2-5.4); WHITE BLOOD COUNT 14.39 K/uL (4.8-10.8)
[2016-09-01 14:59] LABS: PROTHROMBIN TIME (PATIENT) 11.2 SECONDS (9.0-12.0)
[2016-09-01] MEDS ORDERED: LEVALBUTEROL/IPRATROPIUM NEB INH SCH (15:00)
--- NOTE | 2016-09-01 15:12 | History and Physical ---
History & Physical Date & Time of Service: Sep 01, 2016 at 14:13 Chief Complaint: Aspiration Primary Care Physician: Bj Mario D.OTayla History of Present Illness Source: patient, hospital records This is an 81 year old female with PMH of CAD s/p stent, HTN, HL, CKD stage III , and other problems listed below who presents as a direct admission for possible aspiration episode during outpatient colonoscopy. Patient was recently admitted Jul 18-July 20 for acute diverticulitis with rectal bleed. She was discharged on Cipro and Flagyl which she finished. Pt states stool remained loose since last hospitalization but did not have any further rectal bleeding. F /u colonoscopy was done today by Dr. Ford which showed diverticulosis, erythema in sigmoid colon consistent with resolving diverticulitis. During the procedure patient reportedly developed cough and SOB with decreased O2 sats and there was concern for aspiration. She states SOB is improved at present. Still has cough. Has not produced sputum. She reports associated chills, fatigue, dry throat. Prior to today her respiratory status was at baseline (chronic QUIGLEY with climbing steps). Denies fever, chest pain, palpitations, decreased appetite, nausea, vomiting, abdominal pain, dysuria, frequency, calf pain, edema. No hx of asthma or COPD. On arrival to PCU patient is saturating 96-97% on RA, temp was low at 32.1, HR running in 90s, BP elevated to 160s systolic. Past Medical/Surgical History Medical Problems: (1) CAD (coronary artery disease) Permanent Comment: DENA to RCA 06/2009 cath 06/2010 showed widely patent RCA and no progression of disease Status: Chronic (2) CKD (chronic kidney disease) stage 3, GFR 30-59 ml/min Status: Chronic (3) Dyslipidemia Status: Chronic (4) Glaucoma Status: Chronic (5) History of DVT (deep vein thrombosis) Status: Resolved (6) HTN (hypertension) Status: Chronic (7) Macular degeneration Status: Chronic (8) Spinal stenosis Status: Chronic (9) Vitamin D deficiency Status: Chronic Surgical Problems: (1) H/O cataract removal with insertion of prosthetic lens Status: Resolved (2) H/O heart artery stent Permanent Comment: DENA to RCA in 2009 Status: Resolved (3) History of bilateral knee arthroplasty Status: Resolved (4) History of bilateral total hip arthroplasty Status: Resolved (5) History of carpal tunnel surgery Status: Resolved (6) History of hysterectomy Status: Resolved Family History Cancer FH: CAD (coronary artery disease) BROTHER FH: CHF (congestive heart failure) FATHER FH: heart disease Hypertension Social History Smoking Status: Never Smoker Alcohol Use: occasionally Drug Use: none Marital Status: single Housing status: lives with family (with daughter who lives in basement apartment) Occupational Status: retired Immunizations History of Influenza Vaccine: Yes History of Tetanus Vaccine?: UTD History of Pneumococcal: Unknown History of Hepatitis B Vaccine: Unknown Multi-Drug Resistant Organisms History of MDRO: No Allergies Coded Allergies: No Known Allergies (Verified , 07/18/16) Home Medications Scheduled Aspirin (Aspirin Ec), 81 MG PO QPM Cholecalciferol (Vitamin D), 1,000 INTER.UNIT PO QPM Lisinopril (Lisinopril), 5 MG PO QPM Metoprolol Succinate (Metoprolol Succinate ER), 12.5 MG PO QPM Rosuvastatin Calcium (Crestor), 20 MG PO QPM Travoprost (Travatan Z), 1 DROP OPB HS Scheduled PRN Amoxicillin (Amoxil), 2,000 MG PO UD PRN for Prior to Dental Appointment Nitroglycerin (Nitrostat), 0.4 MG UT UD PRN for Chest Pain Ondansetron Hcl (Zofran), 1 TAB PO Q6H PRN for Nausea Tramadol Hcl (Ultram), 50 MG PO Q6H PRN for Pain Review of Systems Constitutional: + chills, No fever, No weight loss Eyes: No worsening of vision ENT: + problem reported (dry throat), No nasal symptoms, No trouble swallowing Respiratory: + cough, + dyspnea on exertion, + shortness of breath Cardiovascular: No chest pain, No edema, No palpitations Abdomen: + diarrhea (loose stools past 6 wks), No GI bleeding (no further GI bleeding since last hospitalization), No nausea, No pain, No vomiting Musculoskeletal: No calf pain Genitourinary - Female: No dysuria, No urinary frequency, No urinary urgency Neurologic: No problem reported (no dizziness) Integumentary: No new/changing skin lesions Physical Exam Vital Signs Date Time Temp Pulse Resp B/P Pulse Ox O2 Delivery O2 Flow Rate FiO2 09/01/16 13:27 36.1 91 22 168/94 93 Room Air 3.0 154/84 General Appearance: WD/WN, no apparent distress, + pertinent finding (alert elderly female, no distress, lying in bed, daughter at bedside) Head: normocephalic, atraumatic ENT: + pertinent finding (petechiae noted in soft palate) Neck: supple, trachea midline, + JVD (mild) Respiratory/Chest: no respiratory distress, no accessory muscle use, + crackles (left base), + rhonchi (diffuse rhonchi), + wheezing (scattered expiratory wheeze) Cardiovascular: regular rate, rhythm, no murmur Abdomen/GI: normal bowel sounds, non tender, soft Extremities/Musculoskelatal: no calf tenderness, + pertinent finding (trace pretibial edema bilaterally) Neurologic/Psych: alert, normal mood/affect, oriented x 3, + pertinent finding (grossly nonfocal) Skin: normal color, warm/dry Diagnostics Laboratory Results Results Past 24 Hours Test 09/01/16 13:25 Range/Units Diagnostic Radiology CHEST ONE VIEW PORTABLE IMPRESSION: Poorly defined left basilar parenchymal infiltrate. EKG NSR, 87 bpm, nonspecific ST abnormality in V6 Impression Assessment and Plan ASPIRATION PNEUMONIA S/p aspiration episode at outpatient colonoscopy with reported drop in O2 sats CXR shows L base infiltrate Temp mildly low 36.1; HR 80s-90s, BP stable, saturating well on RA WBC 14K; PRP pending Check blood cultures, lactic acid, sputum cx Will initiate empiric antibiotics with Unasyn once blood cx drawn Xopenex-Atrovent nebs IV Solu-Medrol 80 mg x 1 then 40 mg q8 NPO except ice chips/ sips/ meds Aspiration precautions RECENT DIVERTICULITIS W/ RECTAL BLEEDING Hospitalized Jul 18-July 20; completed course of Cipro/ Flagyl Stools remain loose; no abdominal pain or further bleeding Outpatient colonoscopy 09/01/[address] Ford- diverticulosis, erythema in sigmoid colon consistent with resolving diverticulitis CORONARY ARTERY DISEASE S/p RCA stent 2009 Stable; continue aspirin, BB, statin HYPERTENSION BP moderately elevated Continue metoprolol and lisinopril CKD STAGE III Baseline creat 1.1-1.2 Creat stable at 1.0 DYSLIPIDEMIA Continue statin DVT PROPHYLAXIS SCD's CODE STATUS Full code per patient's preference on recent admission DISPOSITION Follows with Dr. Bj Mario for primary care. Patient seen in collaboration with Dr. Rivera. Please see his addendum. Attending will be Dr. Pal tomorrow. Advanced Directives Existing Living Will: Yes Existing Power of Instructional Paraprofessional: Yes VTE Prophylaxis VTE Risk Assessment Done? Y/N: Yes Risk Level: Moderate Given or contraindicated: SCD's Note ATTENDING ADDENDUM Record reviewed. Patient interviewed and examined in her room around 17:00. Care coordinated with Kathy Sanchez PA-C. Please refer to her documentation for patient's history. Briefly, 81 YO female with history of CAD, hypertension, recent diverticulitis, and other problems. Outpatient colonoscopy performed this morning at [facility] Developed cough and shortness of breath during the procedure. It was felt that she probably aspirated. She was referred for hospitalization because of persistent cough and SOB. No CP. EXAM: General- no acute distress VS- as noted Neck- no JVD Lungs- scattered rhonchi, diffuse wheezing Heart- RRR, no gallop appreciated Abdomen- + BS, soft, nontender Extremities- no pretibial edema or calf tenderness Neuro- alert, oriented DATA: WBC 14,390. Other lab studies as noted. CXR reviewed by the undersigned and interpreted by Radiology- left basilar infiltrate. EKG performed at 14:25 reviewed and demonstrated NSR at 90 / minute, left axis deviation, poor R-wave progression, slight T depression lateral precordial leads. ASSESSMENT AND PLAN: Suspected aspiration during conscious sedation for colonoscopy. It could be argued that pulmonary process is a chemical pneumonitis, but prudent to Rx with antibiotics in light of low grade fever, leukocytosis, and LLL infiltrate. Rx with IV ampicillin / sulbactam transitioning to oral therapy with amoxicillin / clavulanic acid. Steroids and nebs for bronchospasm. Please refer to EVER Sanchez's documentation for discussion of other issues. Rojas Rivera MD ADDENDUM: Patient had a few runs of non-sustained VT in the evening. ~ 20:30. Nebulizer Rx's adjusted to low dose levalbuterol. K = 3.6. Received KCl 40 mEq PO. Mg = 1.6. Received Mg Sulfate 1 gm IV. Continue telemetry. Repeat lytes in a.m. Rojas Rivera MD. .
[2016-09-01] MEDS ORDERED: METHYLPREDNISOLONE IV 80 MG in SYRINGE 0 ML IV ONE (15:15)
[2016-09-01] MEDS ORDERED: NITROGLYCERIN 0.4 MG SL PER TAB CHARGE UT PRN (15:15)
[2016-09-01] MEDS ORDERED: TRAMADOL HCL 50 MG TAB PO PRN (15:15)
[2016-09-01] MEDS: IPRATROPIUM BROMIDE NEB SOLN 0.02% 2.5 ML VIAL INH SCH ×2 (15:24→19:11)
[2016-09-01] MEDS: LEVALBUTEROL 1.25MG/0.5ML NEB INH SCH ×2 (15:24→19:11)
[2016-09-01 15:27] LABS: ALB/GLOB RATIO 0.8 (0.9-2); BUN/CREATININE RATIO 18.5 (10-20); CALCIUM 9.4 mg/dl (8.5-10.1); POTASSIUM 4.2 mmol/L (3.5-5.1)
[2016-09-01] MEDS: AMPICILLIN/SULBACTAM SOD INJ 3,000 MG in SODIUM CHLORIDE 0.9% 100ML 100 ML IV SCH ×2 (15:38→22:16)
[2016-09-01] MEDS: LACTATED RINGER'S 1000ML 1,000 ML IV SCH (18:46)
[2016-09-01] MEDS: LISINOPRIL 5 MG TAB PO SCH (18:48)
[2016-09-01] MEDS: ASPIRIN 81 MG ECTAB PO SCH (18:48)
[2016-09-01] MEDS: ROSUVASTATIN CALCIUM 20 MG TAB PO SCH (18:49)
[2016-09-01] MEDS: CHOLECALCIFEROL 1000 INTER.UNIT TAB PO SCH (18:49)
[2016-09-01] MEDS: METOPROLOL SUCC 25MG EXT REL TAB PO SCH (18:50)
[2016-09-01] MEDS ORDERED: COUGH DROP (SUGAR FREE) LOZ 24 LOZ/1 BOX ONE (19:35)
[2016-09-01] MEDS: PANTOprazole INJ 40 MG in SYRINGE 0 ML IV SCH (20:23)
[2016-09-01] MEDS ORDERED: METOPROLOL SUCC 25MG EXT REL TAB PO SCH (21:00)
[2016-09-01] MEDS ORDERED: ASPIRIN 81 MG ECTAB PO SCH (21:00)
[2016-09-01] MEDS ORDERED: ROSUVASTATIN CALCIUM 20 MG TAB PO SCH (21:00)
[2016-09-01] MEDS ORDERED: LISINOPRIL 5 MG TAB PO SCH (21:00)
[2016-09-01] MEDS ORDERED: CHOLECALCIFEROL 1000 INTER.UNIT TAB PO SCH (21:00)
[2016-09-01 21:34] LABS: POTASSIUM 3.6 mmol/L (3.5-5.1)
[2016-09-01 21:36] LABS: MAGNESIUM 1.6 mg/dl (1.8-2.4)
[2016-09-01] MEDS: METHYLPREDNISOLONE IV 40 MG in SYRINGE 0 ML IV SCH (22:16)
[2016-09-01] MEDS: TRAVOPROST Z 0.004% OPH SOLN 2.5 ML BTL OPB SCH (22:16)
[2016-09-01] MEDS ORDERED: MAGNESIUM SULFATE 1GM / D5W 1 GM in PREMIXED IN D5W 100 ML IV ONE (22:30)
[2016-09-01] MEDS ORDERED: POTASSIUM CHLORIDE 10 MEQ TABCR PO ONE (22:30)
[2016-09-02] VITALS (7 sets, daily range): BP systolic 109–136; BP diastolic 52–80; PULSE 61–74; TEMP 36.1–36.8; O2SAT 92–95
[2016-09-02] MEDS ORDERED: LEVALBUTEROL 0.63MG/3 ML NEB INH PRN (00:30)
[2016-09-02] MEDS: AMPICILLIN/SULBACTAM SOD INJ 3,000 MG in SODIUM CHLORIDE 0.9% 100ML 100 ML IV SCH ×4 (04:36→21:19)
[2016-09-02] MEDS: LACTATED RINGER'S 1000ML 1,000 ML IV SCH ×2 (04:37→14:00)
[2016-09-02 05:49] LABS: HEMATOCRIT 32.6 % (37-47); MEAN CELL VOLUME 86.9 fL (80-100); MEAN CORPUSCULAR HEMOGLOBIN 29.6 pg (25-34); MEAN PLATELET VOLUME 9.2 fL (7.4-10.4); PLATELET COUNT 256 K/uL (130-400); RED BLOOD COUNT 3.75 M/uL (4.2-5.4); WHITE BLOOD COUNT 13.13 K/uL (4.8-10.8)
[2016-09-02] MEDS: METHYLPREDNISOLONE IV 40 MG in SYRINGE 0 ML IV SCH ×3 (05:57→21:20)
[2016-09-02 06:22] LABS: CALCIUM 8.7 mg/dl (8.5-10.1); CREATININE 1.2 mg/dl (0.60-1.20); MAGNESIUM 2.1 mg/dl (1.8-2.4); POTASSIUM 4.2 mmol/L (3.5-5.1)
[2016-09-02] MEDS: PANTOprazole INJ 40 MG in SYRINGE 0 ML IV SCH ×2 (09:00→21:20)
--- NOTE | 2016-09-02 10:02 | Progress Note ---
Medicine Progress Note Date & Time of Visit: Sep 02, 2016 at 09:50. Subjective seen sitting up in bedside chair, comfortable states she feels improved compared to yesterday breathing improving, still has cough had 7 beat v tach episode yesterday no abdominal pain, nausea (+) flatus no other symptoms Objective Last 8 Hrs Date Time Temp Pulse Resp B/P Pulse Ox O2 Delivery O2 Flow Rate FiO2 09/02/16 08:18 36.1 61 16 122/66 95 Nasal Cannula 2.0 09/02/16 04:00 93 Nasal Cannula 2.0 09/02/16 04:00 36.4 70 20 117/52 93 Nasal Cannula 2.0 Physical Exam: General- oriented x 3 not in distress, speaks in sentences with no effort Head- atraumatic Eyes- EOMI, anicteric ENT- oropharynx clear Neck- supple, no JVD, no adenopathy, no thyromegaly Lungs- (+) mild scattered wheeze and rhonchi bilaterally Heart- regular rhythm; no murmur, no gallop Abdomen- normal bowel sounds, soft, nontender, no masses Extremities- no pretibial edema, no calf tenderness; peripheral pulses intact Neuro- alert, oriented x 3; no gross focal deficits Skin- warm & dry Laboratory Results: Last 24 Hours Test 09/01/16 14:38 09/01/16 15:20 09/01/16 21:07 09/02/16 05:40 White Blood Count 14.39 K/uL 13.13 K/uL Red Blood Count 4.32 M/uL 3.75 M/uL Hemoglobin 12.7 g/dL 11.1 g/dL Hematocrit 37.3 % 32.6 % Mean Corpuscular Volume 86.3 fL 86.9 fL Mean Corpuscular Hemoglobin 29.4 pg 29.6 pg Mean Corpuscular Hemoglobin Concent 34.0 g/dl 34.0 g/dl RDW Standard Deviation 43.7 fL 44.6 fL RDW Coefficient of Variation 13.8 % 14.0 % Platelet Count 282 K/uL 256 K/uL Mean Platelet Volume 9.1 fL 9.2 fL Prothrombin Time 11.2 SECONDS Prothromb Time International Ratio 1.0 Activated Partial Thromboplast Time 25.7 SECONDS Partial Thromboplastin Ratio 1.0 Sodium Level 140 mmol/L 140 mmol/L Potassium Level 4.2 mmol/L 3.6 mmol/L 4.2 mmol/L Chloride Level 106 mmol/L 108 mmol/L Carbon Dioxide Level 27 mmol/L 25 mmol/L Anion Gap 7.0 mmol/L 7.0 mmol/L Blood Urea Nitrogen 19 mg/dl 22 mg/dl Creatinine 1.00 mg/dl 1.20 mg/dl Est Creatinine Clear Calc Drug Dose 46.2 ml/min 38.5 ml/min Estimated GFR () 61.2 49.1 Estimated GFR (Non- 52.8 42.4 BUN/Creatinine Ratio 18.5 18.0 Random Glucose 97 mg/dl 184 mg/dl Calcium Level 9.4 mg/dl 8.7 mg/dl Total Bilirubin 0.5 mg/dl Aspartate Amino Transf (AST/SGOT) 28 U/L Alanine Aminotransferase (ALT/SGPT) 20 U/L Alkaline Phosphatase 132 U/L Total Protein 7.8 gm/dl Albumin 3.5 gm/dl Globulin 4.3 gm/dl Albumin/Globulin Ratio 0.8 Lactic Acid Level 1.0 mmol/L Magnesium Level 1.6 mg/dl 2.1 mg/dl Date/Time Source Procedure Growth Status 09/01/16 15:30 Blood Blood Culture Pending Received 09/01/16 15:20 Blood Blood Culture Pending Received 09/01/16 15:45 Sputum Expectorated Sputum Gram Stain - Final Resulted 09/01/16 15:45 Sputum Expectorated Sputum Sputum Culture Pending Resulted Assessment & Plan ASPIRATION PNEUMONIA S/p aspiration episode at outpatient colonoscopy with reported drop in O2 sats CXR shows L base infiltrate blood cultures: pending -- improving -- continue Unasyn, Solumedrol PRN nebs V TACH EPISODE no recurrence check Echo already on Metoprolol RECENT DIVERTICULITIS W/ RECTAL BLEEDING Hospitalized Jul 18-July 20; completed course of Cipro/ Flagyl Outpatient colonoscopy 09/01/[address] Ford- diverticulosis, erythema in sigmoid colon consistent with resolving diverticulitis CORONARY ARTERY DISEASE S/p RCA stent 2009 Stable; continue aspirin, BB, statin HYPERTENSION Continue metoprolol and lisinopril CKD STAGE III Baseline creat 1.1-1.2 Creat stable at 1.0 DYSLIPIDEMIA Continue statin DVT PROPHYLAXIS SCD's CODE STATUS Full code per patient's preference on recent admission DISPOSITION pending possible d/c home tomorrow Current Inpatient Medications: Current Inpatient Medications Medications (Trade) Dose Ordered Sig/Allison Route Start Time Stop Time Status Last Admin Dose Admin Zolpidem Tartrate (Ambien Tab) 5 mg HSZ PRN PO 09/01/16 13:30 10/01/16 13:29 Miscellaneous 1 ea 1 ea PRN PRN N/A 09/01/16 14:15 09/01/17 14:14 Ampicillin Sodium/ Sulbactam Sodium 3000 mg/Sodium Chloride 108 ml @ 200 mls/hr Q6H IV 09/01/16 16:00 09/08/16 14:29 09/02/16 04:36 200 MLS/HR Methylprednisolone Sodium Succinate/ Syringe (Solu-Medrol IV/ Syringe) 0.64 ml @ 1.5 mls/min Q8 IV 09/01/16 22:00 10/01/16 21:59 09/02/16 05:57 1.5 MLS/MIN Nitroglycerin (Nitrostat Tab) 0.4 mg UD PRN UT 09/01/16 15:15 10/01/16 15:14 Tramadol HCl (Ultram Tab) 50 mg Q6H PRN PO 09/01/16 15:15 10/01/16 15:14 Travoprost (Travatan Z) 1 drops HS OPB 09/01/16 21:00 10/01/16 20:59 09/01/16 22:16 1 DROPS Aspirin (Ecotrin Tab) 81 mg DAILY@1800 PO 09/01/16 18:00 10/01/16 17:59 09/01/16 18:48 81 MG Cholecalciferol (Vitamin D Tab) 1,000 inter.unit DAILY@1800 PO 09/01/16 18:00 10/01/16 17:59 09/01/16 18:49 1,000 INTER.UNIT Lisinopril (Zestril Tab) 5 mg DAILY@1800 PO 09/01/16 18:00 10/01/16 17:59 09/01/16 18:48 5 MG Metoprolol Succinate (Toprol Xl Tab) 12.5 mg DAILY@1800 PO 09/01/16 18:00 10/01/16 17:59 09/01/16 18:50 12.5 MG Rosuvastatin Calcium 20 mg 20 mg DAILY@1800 PO 09/01/16 18:00 10/01/16 17:59 09/01/16 18:49 20 MG Pantoprazole Sodium 40 mg/ Syringe 10 ml @ 5 mls/min BID@0900,2100 IV 09/01/16 21:00 10/01/16 20:59 09/01/16 20:23 5 MLS/MIN Lactated Ringer's (Lr 1000ml) 1,000 ml @ 100 mls/hr Q10H IV 09/01/16 18:00 10/01/16 17:59 09/02/16 04:37 100 MLS/HR Levalbuterol (Xopenex 0.63 Mg/ 3 Ml Neb) 0.63 mg Q4H PRN INH 09/02/16 00:30 10/02/16 00:29
--- NOTE | 2016-09-02 16:17 | ECHOCARDIOGRAM REPORT ---
*NOTICE TO RECEIVING [employer]Y This information is strictly Confidential and protected under [place] law. [place] law prohibits you from making any further disclosure of this information unless further disclosure is expressly permitted by the written consent of the person to whom it pertains or is authorized by law. A general authorization for the release of medical or other information is not sufficient for this purpose. Hospital accepts no responsibility if the information is made available to any other person, INCLUDING THE PATIENT. Interpretation Summary * Name: MARIELENA ESTRADA Study Date: 09/02/2016 05:30 PM BP: 109/74 mmHg * Patient Location: C.2E\S\E212\S\1 HR: 71 * : 1935 (M/d/yy) Gender: Female Height: 64 in * Age: 81 yrs Ethnicity: CA Weight: 189 lb * Ordering Physician: Rd Pal * Referring Physician: Self, Referred * Performed By: Brooklynn Faria RDCS * * Reason For Study: V TACH EPISODE * BSA: 1.9 m2 * -- Conclusions -- * The left ventricle is normal in size. * There is mild concentric left ventricular hypertrophy. * The left ventricular wall motion is normal. * Ejection Fraction = 60-65%. * The right ventricle is normal in size and function. * Aortic valve sclerosis moderate, without significant aortic valvular stenosis. * There is trace mitral regurgitation. Procedure Details * A complete two-dimensional transthoracic echocardiogram was performed (2D, M-mode, Doppler and color flow Doppler). Left Ventricle * The left ventricle is normal in size. * There is mild concentric left ventricular hypertrophy. * Ejection Fraction = 60-65%. * Left ventricular systolic function is normal. * The left ventricular wall motion is normal. Right Ventricle * The right ventricle is normal in size and function. Atria * The left atrial size is normal. * Right atrial size is normal. * No ASD detected; PFO is not assessed. Mitral Valve * The mitral valve anatomy is normal. * There is no mitral valve stenosis. * There is trace mitral regurgitation. Tricuspid Valve * The tricuspid valve anatomy is normal. * There is no tricuspid stenosis. * There is trace tricuspid regurgitation. * Doppler findings do not suggest pulmonary hypertension. Aortic Valve * The aortic valve is trileaflet. * Aortic valve sclerosis moderate, without significant aortic valvular stenosis. * No aortic regurgitation is present. Pulmonic Valve * The pulmonic valve is not well visualized. Great Vessels * The aortic root is normal size. Pericardium/Pleural * There is no pericardial effusion. Great Vessels * Normal inferior vena cava diameter and respiratory variation suggests normal central venous pressure. Left Ventricular Diastolic Function * Grade I diastolic dysfunction, (abnormal relaxation pattern). MMode 2D Measurements and Calculations IVSd 1.2 cm IVSs 1.8 cm LVIDd 4.5 cm LVIDs 3.1 cm LVPWd 1.0 cm LVPWs 1.4 cm IVS/LVPW 1.2 FS 30.2 % EDV(Teich) 92.6 ml ESV(Teich) 39.2 ml EF(Teich) 57.7 % EDV(cubed) 91.3 ml ESV(cubed) 31.1 ml EF(cubed) 66.0 % % IVS thick 55.5 % % LVPW thick 43.0 % LV mass(C)d 173.5 grams LV mass(C)dI 90.9 grams/m\S\2 LV mass(C)s 194.4 grams LV mass(C)sI 101.8 grams/m\S\2 SV(Teich) 53.4 ml SI(Teich) 28.0 ml/m\S\2 SV(cubed) 60.3 ml SI(cubed) 31.6 ml/m\S\2 Ao root diam 2.9 cm Ao root area 6.5 cm\S\2 LA dimension 3.9 cm LA/Ao 1.4 LVAd ap4 25.1 cm\S\2 LVLd ap4 7.0 cm EDV(MOD-sp4) 74.2 ml LVAs ap4 13.9 cm\S\2 LVLs ap4 5.3 cm ESV(MOD-sp4) 29.3 ml EF(MOD-sp4) 60.5 % LVAd ap2 20.4 cm\S\2 LVLd ap2 7.2 cm EDV(MOD-sp2) 49.6 ml LVAs ap2 11.0 cm\S\2 LVLs ap2 5.9 cm ESV(MOD-sp2) 18.4 ml EF(MOD-sp2) 62.9 % SV(MOD-sp4) 44.9 ml SI(MOD-sp4) 23.5 ml/m\S\2 SV(MOD-sp2) 31.2 ml SI(MOD-sp2) 16.3 ml/m\S\2 Doppler Measurements and Calculations MV E max venancio 94.3 cm/sec MV A max venancio 115.1 cm/sec MV E/A 0.82 MV dec time 0.23 sec Ao V2 max 147.7 cm/sec Ao max PG 8.7 mmHg Ao max PG (full) 4.9 mmHg LV V1 max PG 3.8 mmHg LV V1 max 97.9 cm/sec TR max venancio 257.2 cm/sec
[2016-09-02] MEDS: ASPIRIN 81 MG ECTAB PO SCH (17:15)
[2016-09-02] MEDS: ROSUVASTATIN CALCIUM 20 MG TAB PO SCH (17:16)
[2016-09-02] MEDS: METOPROLOL SUCC 25MG EXT REL TAB PO SCH (17:16)
[2016-09-02] MEDS: CHOLECALCIFEROL 1000 INTER.UNIT TAB PO SCH (17:16)
[2016-09-02] MEDS: LISINOPRIL 5 MG TAB PO SCH (17:17)
[2016-09-02] MEDS: TRAVOPROST Z 0.004% OPH SOLN 2.5 ML BTL OPB SCH (21:20)
[2016-09-03 00:07] VITALS: BP 129/56; PULSE 72; TEMP 36.3; O2SAT 95
[2016-09-03] MEDS: LACTATED RINGER'S 1000ML 1,000 ML IV SCH (00:15)
[2016-09-03 04:31] VITALS: BP 129/70; PULSE 71; TEMP 36.4; O2SAT 93
[2016-09-03] MEDS: AMPICILLIN/SULBACTAM SOD INJ 3,000 MG in SODIUM CHLORIDE 0.9% 100ML 100 ML IV SCH ×2 (05:08→10:47)
[2016-09-03] MEDS: METHYLPREDNISOLONE IV 40 MG in SYRINGE 0 ML IV SCH (05:08)
[2016-09-03] MEDS: PANTOprazole INJ 40 MG in SYRINGE 0 ML IV SCH (07:55)
[2016-09-03 08:24] VITALS: BP 120/73; PULSE 71; TEMP 36.6; O2SAT 96
[2016-09-03 11:23] VITALS: BP 127/77; PULSE 64; TEMP 36.8; O2SAT 95
--- NOTE | 2016-09-03 12:52 | Progress Note ---
Medicine Progress Note Date & Time of Visit: Sep 03, 2016 at 12:46. Subjective patient seen resting in bedside chair, comfortable in good spirits states she feels much better breathing has improved significantly, denies cough no chest pain, fever/chills,abdominal pain, nausea no other symptoms states she is ready and would like to be discharged today Objective Last 8 Hrs Date Time Temp Pulse Resp B/P Pulse Ox O2 Delivery O2 Flow Rate FiO2 09/03/16 11:23 36.8 64 20 127/77 95 Room Air 09/03/16 08:24 36.6 71 20 120/73 96 Room Air 09/03/16 08:00 Room Air Physical Exam: General- oriented x 3 not in distress, speaks in sentences with no effort Eyes- anicteric Neck- no JVD Lungs- (+) mild occasional rhonchi bilateral bases, no rhonchi, no rales Heart- regular rhythm; no murmur, normal rate Abdomen- normal bowel sounds, soft, nontender Extremities- no pretibial edema, no calf tenderness Neuro- alert, oriented x 3; no gross focal deficits Skin- warm & dry Assessment & Plan ASPIRATION PNEUMONIA s/p aspiration episode at outpatient colonoscopy with reported drop in O2 sats CXR shows L base infiltrate blood cultures: negative sputum culture: heavy normal howard -- clinically improved no supplemental oxygen required -- given Unasyn and Solumedrol x 2 days PRN nebs -- discharge plan: Augmentin x 5 for more days to complete 7 days of therapy Prednisone taper PRN Levalbuterol for SOB/wheeze -- ff up with PCP in 1 week V TACH EPISODE 6 beats, asymptomatic Echo: * -- Conclusions -- * The left ventricle is normal in size. * There is mild concentric left ventricular hypertrophy. * The left ventricular wall motion is normal. * Ejection Fraction = 60-65%. * The right ventricle is normal in size and function. * Aortic valve sclerosis moderate, without significant aortic valvular stenosis. * There is trace mitral regurgitation. -- already on Metoprolol Neb treatments changed to PRN no recurrence since denies dizziness, syncope, palpitations, dyspnea, chest pain; advised to inform PCP or [facility] if she experiences these RECENT DIVERTICULITIS W/ RECTAL BLEEDING Hospitalized Jul 18-July 20; completed course of Cipro/ Flagyl Outpatient colonoscopy 09/01/[address] Ford- diverticulosis, erythema in sigmoid colon consistent with resolving diverticulitis CORONARY ARTERY DISEASE S/p RCA stent 2009 Stable; continue aspirin, BB, statin HYPERTENSION stable Continue metoprolol and lisinopril CKD STAGE III Baseline creat 1.1-1.2 Creat stable at 1.0 DYSLIPIDEMIA Continue statin DVT PROPHYLAXIS SCD's CODE STATUS Full code per patient's preference on recent admission DISPOSITION d/c home today ff up with PCP in 1 week Current Inpatient Medications: Current Inpatient Medications Medications (Trade) Dose Ordered Sig/Allison Route Start Time Stop Time Status Last Admin Dose Admin Zolpidem Tartrate (Ambien Tab) 5 mg HSZ PRN PO 09/01/16 13:30 10/01/16 13:29 Miscellaneous 1 ea 1 ea PRN PRN N/A 09/01/16 14:15 09/01/17 14:14 Ampicillin Sodium/ Sulbactam Sodium 3000 mg/Sodium Chloride 108 ml @ 200 mls/hr Q6H IV 09/01/16 16:00 09/08/16 14:29 09/03/16 10:47 200 MLS/HR Methylprednisolone Sodium Succinate/ Syringe (Solu-Medrol IV/ Syringe) 0.64 ml @ 1.5 mls/min Q8 IV 09/01/16 22:00 10/01/16 21:59 09/03/16 05:08 1.5 MLS/MIN Nitroglycerin (Nitrostat Tab) 0.4 mg UD PRN UT 09/01/16 15:15 10/01/16 15:14 Tramadol HCl (Ultram Tab) 50 mg Q6H PRN PO 09/01/16 15:15 10/01/16 15:14 Travoprost (Travatan Z) 1 drops HS OPB 09/01/16 21:00 10/01/16 20:59 09/02/16 21:20 1 DROPS Aspirin (Ecotrin Tab) 81 mg DAILY@1800 PO 09/01/16 18:00 10/01/16 17:59 09/02/16 17:15 81 MG Cholecalciferol (Vitamin D Tab) 1,000 inter.unit DAILY@1800 PO 09/01/16 18:00 10/01/16 17:59 09/02/16 17:16 1,000 INTER.UNIT Lisinopril (Zestril Tab) 5 mg DAILY@1800 PO 09/01/16 18:00 10/01/16 17:59 09/02/16 17:17 5 MG Metoprolol Succinate (Toprol Xl Tab) 12.5 mg DAILY@1800 PO 09/01/16 18:00 10/01/16 17:59 09/02/16 17:16 12.5 MG Rosuvastatin Calcium 20 mg 20 mg DAILY@1800 PO 09/01/16 18:00 10/01/16 17:59 09/02/16 17:16 20 MG Pantoprazole Sodium 40 mg/ Syringe 10 ml @ 5 mls/min BID@0900,2100 IV 09/01/16 21:00 10/01/16 20:59 09/03/16 07:55 5 MLS/MIN Lactated Ringer's (Lr 1000ml) 1,000 ml @ 100 mls/hr Q10H IV 09/01/16 18:00 10/01/16 17:59 09/03/16 00:15 100 MLS/HR Levalbuterol (Xopenex 0.63 Mg/ 3 Ml Neb) 0.63 mg Q4H PRN INH 09/02/16 00:30 10/02/16 00:29
[2016-09-03] MEDS ORDERED: PRED10TA PO (13:01)
[2016-09-03] MEDS ORDERED: LEVA45AE INH (13:01)
[2016-09-03] MEDS ORDERED: AMOX875T PO (13:01)
--- NOTE | 2016-09-03 13:09 | Discharge Instructions ---
Discharge Instructions Date of Service Sep 03, 2016. Admission Reason for Admission: Aspiration Discharge Discharge Diagnosis / Problem: ASPIRATION PNEUMONIA Discharge Goals Goal(s): Diagnostic testing, Therapeutic intervention Activity Recommendations Activity Limitations: as noted below (NO HEAVY EXERTION UNTIL RE-EVALUATION BY PRIMARY CARE PHYSICIAN) . Instructions / Follow-Up Instructions / Follow-Up PLEASE REVIEW MEDICATION LIST AND FOLLOW INSTRUCTIONS CAREFULLY. CALL PRIMARY CARE PHYSICIAN OR RETURN TO ER IF WITH INCREASING COUGH, SPUTUM PRODUCTION, FEVER/CHILLS, SHORTNESS OF BREATH, PALPITATIONS, CHEST PAIN. FOLLOW UP WITH DR. FLORIAN ON Monday09/08/16 AT 3:10PM. Current Hospital Diet Patient's current hospital diet: AHA Diet (Heart Healthy) Discharge Diet Recommended Diet: AHA Diet (Heart Healthy) Pending Studies Studies pending at discharge: no Medical Emergencies . Who to Call and When: Medical Emergencies: If at any time you feel your situation is an emergency, please call 911 immediately. . Non-Emergent Contact Non-Emergency issues call your: Primary Care Provider Call Non-Emergent contact if: you have a fever, you have any medication questions . Past History Medical & Surgical History: (1) Dyspnea (2) Aspiration pneumonia (3) Macular degeneration (4) Glaucoma (5) Vitamin D deficiency (6) Spinal stenosis (7) HTN (hypertension) (8) Dyslipidemia (9) CKD (chronic kidney disease) stage 3, GFR 30-59 ml/min (10) History of DVT (deep vein thrombosis) (11) CAD (coronary artery disease) (12) History of bilateral knee arthroplasty (13) History of bilateral total hip arthroplasty (14) History of carpal tunnel surgery (15) History of hysterectomy (16) H/O cataract removal with insertion of prosthetic lens (17) H/O heart artery stent . "Provider Documentation" section prepared by Rd Pal. VTE Core Measure Inpt VTE Proph given/why not?: SCD's
--- NOTE | 2016-09-03 13:12 | Discharge Summary ---
Discharge Summary Date of Service Sep 03, 2016. Discharge Summary Admission Date: Sep 02, 2016 at 13:17 Discharge Date: Sep 03, 2016 Discharge Disposition: Home Principal Diagnosis: ASPIRATION PNEUMONIA Secondary Diagnoses/Problems: PLEASE REFER TO HOSPITAL COURSE BELOW. Procedures: CHEST ONE VIEW PORTABLE CLINICAL HISTORY: cough, SOB, possible aspiration dyspnea COMPARISON STUDY: 07/18/2016 FINDINGS: Poorly defined parenchymal infiltrate left base. Diaphragms smooth. Lungs otherwise are clear. IMPRESSION: Poorly defined left basilar parenchymal infiltrate. Pending Studies/Follow-Up: PLEASE REFER TO HOSPITAL COURSE BELOW. Medication Reconciliation New Medications: Amoxicillin & Pot Clavulanate (Augmentin 875-125 mg) 1 Tab Tab 875 MG PO BID for 5 Days, #10 TAB 0 Refills Levalbuterol Tartrate (Levalbuterol Tartrate Hfa) 45 Mcg/Act Aer 2 PUFFS INH Q4H PRN for SOB/Wheezing, #1 INHA 1 Refill Prednisone Tab (Prednisone) 10 Mg Tab 10 MG PO UD for 8 Days, #15 TAB take 4 tabs po daily x 2 days, then take 2 tabs po daily x 2 days, then take 1 tab po daily x 2 days, then take 1/2 tab po daily x 2 days, then stop Continued Medications: Amoxicillin (Amoxil) 500 Mg Cap 2000 MG PO UD PRN for Prior to Dental Appointment NEEDED ONE HOUR PRIOR TO DENTAL APPOINTMENTS. Aspirin (Aspirin Ec) 81 Mg Tab 81 MG PO QPM Cholecalciferol (Vitamin D) 1,000 Inter.unit Tab 1000 INTER.UNIT PO QPM, 0 Refills Lisinopril (Lisinopril) 10 Mg Tab 5 MG PO QPM Metoprolol Succinate (Metoprolol Succinate ER) 25 Mg Tabcr 12.5 MG PO QPM Nitroglycerin (Nitrostat) 0.4 Mg Tab 0.4 MG UT UD PRN for Chest Pain, 0 Refills Ondansetron Hcl (Zofran) 4 Mg Tab 1 TAB PO Q6H PRN for Nausea, #10 TAB 1 Refill Rosuvastatin Calcium (Crestor) 20 Mg Tab 20 MG PO QPM Tramadol Hcl (Ultram) 50 Mg Tab 50 MG PO Q6H PRN for Pain, TAB PRN PAIN Travoprost (Travatan Z) 0.004 % Ananda 1 DROP OPB HS, #2 Admission Information HPI (per Admitting provider): This is an 81 year old female with PMH of CAD s/p stent, HTN, HL, CKD stage III , and other problems listed below who presents as a direct admission for possible aspiration episode during outpatient colonoscopy. Patient was recently admitted Jul 18-July 20 for acute diverticulitis with rectal bleed. She was discharged on Cipro and Flagyl which she finished. Pt states stool remained loose since last hospitalization but did not have any further rectal bleeding. F /u colonoscopy was done today by Dr. Ford which showed diverticulosis, erythema in sigmoid colon consistent with resolving diverticulitis. During the procedure patient reportedly developed cough and SOB with decreased O2 sats and there was concern for aspiration. She states SOB is improved at present. Still has cough. Has not produced sputum. She reports associated chills, fatigue, dry throat. Prior to today her respiratory status was at baseline (chronic QUIGLEY with climbing steps). Denies fever, chest pain, palpitations, decreased appetite, nausea, vomiting, abdominal pain, dysuria, frequency, calf pain, edema. No hx of asthma or COPD. On arrival to PCU patient is saturating 96-97% on RA, temp was low at 32.1, HR running in 90s, BP elevated to 160s systolic. Physical Exam (per Admitting): General Appearance: WD/WN, no apparent distress, + pertinent finding (alert elderly female, no distress, lying in bed, daughter at bedside) Head: normocephalic, atraumatic ENT: + pertinent finding (petechiae noted in soft palate) Neck: supple, trachea midline, + JVD (mild) Respiratory/Chest: no respiratory distress, no accessory muscle use, + crackles (left base), + rhonchi (diffuse rhonchi), + wheezing (scattered expiratory wheeze) Cardiovascular: regular rate, rhythm, no murmur Abdomen/GI: normal bowel sounds, non tender, soft Extremities/Musculoskelatal: no calf tenderness, + pertinent finding (trace pretibial edema bilaterally) Neurologic/Psych: alert, normal mood/affect, oriented x 3, + pertinent finding (grossly nonfocal) Skin: normal color, warm/dry Hospital Course ASPIRATION PNEUMONIA s/p aspiration episode at outpatient colonoscopy with reported drop in O2 sats CXR shows L base infiltrate blood cultures: negative sputum culture: heavy normal howard -- clinically improved no supplemental oxygen required -- given Unasyn and Solumedrol x 2 days PRN nebs -- discharge plan: Augmentin x 5 for more days to complete 7 days of therapy Prednisone taper PRN Levalbuterol for SOB/wheeze -- ff up with PCP in 1 week V TACH EPISODE 6 beats, asymptomatic Echo: * -- Conclusions -- * The left ventricle is normal in size. * There is mild concentric left ventricular hypertrophy. * The left ventricular wall motion is normal. * Ejection Fraction = 60-65%. * The right ventricle is normal in size and function. * Aortic valve sclerosis moderate, without significant aortic valvular stenosis. * There is trace mitral regurgitation. -- already on Metoprolol Neb treatments changed to PRN no recurrence since denies dizziness, syncope, palpitations, dyspnea, chest pain; advised to inform PCP or Patient Accounting Representative if she experiences these RECENT DIVERTICULITIS W/ RECTAL BLEEDING Hospitalized Jul 18-July 20; completed course of Cipro/ Flagyl Outpatient colonoscopy 09/01/[address] Ford- diverticulosis, erythema in sigmoid colon consistent with resolving diverticulitis CORONARY ARTERY DISEASE S/p RCA stent 2009 Stable; continue aspirin, BB, statin HYPERTENSION stable Continue metoprolol and lisinopril CKD STAGE III Baseline creat 1.1-1.2 Creat stable at 1.0 DYSLIPIDEMIA Continue statin DVT PROPHYLAXIS SCD's CODE STATUS Full code per patient's preference on recent admission DISPOSITION d/c home ff up with PCP in 1 week Total time spent on discharge = 35 MINUTES This includes examination of the patient, discharge planning, medication reconciliation, and communication with other providers. Discharge Instructions Discharge Instructions Date of Service Sep 03, 2016. Admission Reason for Admission: Aspiration Discharge Discharge Diagnosis / Problem: ASPIRATION PNEUMONIA Discharge Goals Goal(s): Diagnostic testing, Therapeutic intervention Activity Recommendations Activity Limitations: as noted below (NO HEAVY EXERTION UNTIL RE-EVALUATION BY PRIMARY CARE PHYSICIAN) . Instructions / Follow-Up Instructions / Follow-Up PLEASE REVIEW MEDICATION LIST AND FOLLOW INSTRUCTIONS CAREFULLY. CALL PRIMARY CARE PHYSICIAN OR RETURN TO ER IF WITH INCREASING COUGH, SPUTUM PRODUCTION, FEVER/CHILLS, SHORTNESS OF BREATH, PALPITATIONS, CHEST PAIN. FOLLOW UP WITH DR. FLORIAN ON Monday09/08/16 AT 3:10PM. Current Hospital Diet Patient's current hospital diet: AHA Diet (Heart Healthy) Discharge Diet Recommended Diet: AHA Diet (Heart Healthy) Pending Studies Studies pending at discharge: no Medical Emergencies . Who to Call and When: Medical Emergencies: If at any time you feel your situation is an emergency, please call 911 immediately. . Non-Emergent Contact Non-Emergency issues call your: Primary Care Provider Call Non-Emergent contact if: you have a fever, you have any medication questions . Past History Medical & Surgical History: (1) Dyspnea (2) Aspiration pneumonia (3) Macular degeneration (4) Glaucoma (5) Vitamin D deficiency (6) Spinal stenosis (7) HTN (hypertension) (8) Dyslipidemia (9) CKD (chronic kidney disease) stage 3, GFR 30-59 ml/min (10) History of DVT (deep vein thrombosis) (11) CAD (coronary artery disease) (12) History of bilateral knee arthroplasty (13) History of bilateral total hip arthroplasty (14) History of carpal tunnel surgery (15) History of hysterectomy (16) H/O cataract removal with insertion of prosthetic lens (17) H/O heart artery stent . "Provider Documentation" section prepared by Rd Pal. VTE Core Measure Inpt VTE Proph given/why not?: SCD's
[2016-09-03 13:20] VITALS: BP 127/77; PULSE 64; TEMP 36.8; O2SAT 95
== END 2016-09-03 14:04 | disposition home or self-care (01) | DRG 177 ==
LOC: UNDOADMIN 12:20 → C.2E 12:20 → PREINTOOBSV 12:31 → C.2E 13:00 → OBSVTOIN 09-02 13:17
PROVIDERS: ADMIT Hospitalist; ATTEND Internal Medicine
DX: J69.0 Pneumonitis due to inhalation of food and vomit (principal); K57.91 Diverticulosis of intestine, part unspecified, without perforation or abscess with bleeding; K91.81 Other intraoperative complications of digestive system; I47.2 Ventricular tachycardia; H91.90 Unspecified hearing loss, unspecified ear; E55.9 Vitamin D deficiency, unspecified; E78.5 Hyperlipidemia, unspecified; I25.10 Atherosclerotic heart disease of native coronary artery without angina pectoris; N18.3 Chronic kidney disease, stage 3 (moderate); I12.9 Hypertensive chronic kidney disease with stage 1 through stage 4 chronic kidney disease, or unspecified chronic kidney disease; J98.01 Acute bronchospasm; Y84.8 Other medical procedures as the cause of abnormal reaction of the patient, or of later complication, without mention of misadventure at the time of the procedure; Y92.538 Other ambulatory health services establishments as the place of occurrence of the external cause; Z87.19 Personal history of other diseases of the digestive system; H35.30 Unspecified macular degeneration; H40.9 Unspecified glaucoma; Z86.718 Personal history of other venous thrombosis and embolism; Z96.653 Presence of artificial knee joint, bilateral; Z96.643 Presence of artificial hip joint, bilateral; Z95.5 Presence of coronary angioplasty implant and graft; Z79.82 Long term (current) use of aspirin; Z79.891 Long term (current) use of opiate analgesic; Z79.899 Other long term (current) drug therapy

== ENCOUNTER 2017-08-05 15:16 | Emergency (ER) | payer BC ==
[~2017-08-05 15:16] MED LIST changes: +AMOX875T PO; +LEVA45AE INH; +ONDA4TAB65 PO; +TRAM-453 PO
[2017-08-05 15:18] VITALS: TEMP 36.7; Ht 160 cm
--- NOTE | 2017-08-05 15:39 | EMERGENCY ROOM VISIT NOTE ---
History Report prepared by Suleman: Jagdeep Savage Under the Supervision of: Dr. Arvind Duke M.D. First contact with patient: 15:21 Chief Complaint: BACK PAIN Stated Complaint: LEFT HIP AND LEG PAIN History of Present Illness The patient is an 82 year old female who presents to the Emergency Room with complaints of constant left-sided back pain beginning 6 days ago. The patient states that she went in for X-RAYs 3 days ago for her hip pain but has not received the results. She notes that she believes that her back pain is related to her artificial hip. She also complains of nausea and left leg pain. She denies any fevers, chills, cough, congestion, vomiting, diarrhea, urinary symptoms, weakness, and recent falls. She reports that her pain worsens when she stands up. Source of History: patient Onset: 6 days ago Position: back (left-sided) Timing: constant Modifying Factors (Worsening): other (standing up) Associated Symptoms: + nausea, No fevers, No chills, No cough, No vomiting, No diarrhea, No urinary symptoms, No weakness Note: The patient also complains of left leg pain. She denies any congestion. Review of Systems See HPI for pertinent positives and negatives. A total of ten systems were reviewed and were otherwise negative. Past Medical & Surgical Medical Problems: (1) Aspiration pneumonia (2) CAD (coronary artery disease) (3) CKD (chronic kidney disease) stage 3, GFR 30-59 ml/min (4) Dyslipidemia (5) Dyspnea (6) Glaucoma (7) History of DVT (deep vein thrombosis) (8) HTN (hypertension) (9) Macular degeneration (10) Spinal stenosis (11) Vitamin D deficiency Surgical Problems: (1) H/O cataract removal with insertion of prosthetic lens (2) H/O heart artery stent (3) History of bilateral knee arthroplasty (4) History of bilateral total hip arthroplasty (5) History of carpal tunnel surgery (6) History of hysterectomy Family History Cancer FH: CAD (coronary artery disease) BROTHER FH: CHF (congestive heart failure) FATHER FH: heart disease Hypertension Social History Smoking Status: Never Smoker Alcohol Use: none Drug Use: none Marital Status: single Housing Status: lives alone Occupation Status: retired Current/Historical Medications Scheduled Aspirin (Aspirin Ec), 81 MG PO QPM Cholecalciferol (Vitamin D), 1,000 INTER.UNIT PO QPM Lisinopril (Lisinopril), 5 MG PO QPM Metoprolol Succinate (Metoprolol Succinate ER), 12.5 MG PO QPM Rosuvastatin Calcium (Crestor), 20 MG PO QPM Travoprost (Travatan Z), 1 DROP OPB HS Scheduled PRN Lidocaine (Lidocaine), 1 PATCH TD DAILY PRN for Pain Nitroglycerin (Nitrostat), 0.4 MG UT UD PRN for Chest Pain Ondansetron Hcl (Zofran), 1 TAB PO Q6H PRN for Nausea Tramadol Hcl (Ultram), 50 MG PO Q6H PRN for Pain Allergies Coded Allergies: No Known Allergies (Verified , 08/05/17) Physical Exam Vital Signs Date Time Temp Pulse Resp B/P (MAP) Pulse Ox O2 Delivery O2 Flow Rate FiO2 08/05/17 17:12 84 18 177/81 94 08/05/17 15:18 36.7 68 18 137/88 96 Room Air Physical Exam GENERAL: Awake, alert, well-appearing, in no distress HENT: Normocephalic, atraumatic. Oropharynx unremarkable. Dry MM. EYES: Normal conjunctiva. Sclera non-icteric. NECK: Supple. No nuchal rigidity. FROM. No JVD. RESPIRATORY: Clear to auscultation. CARDIAC: Regular rate, normal rhythm. Extremities warm and well perfused. Pulses equal. ABDOMEN: Soft, non-distended. No tenderness to palpation. No rebound or guarding. No masses. RECTAL: Deferred. MUSCULOSKELETAL: Chest examination reveals no tenderness. The back is symmetrical on inspection without obvious abnormality. There is no CVA tenderness to palpation. No joint edema. Mild tenderness to left lumbar region, positive straight leg raise, 5/5 strength. LOWER EXTREMITIES: Calves are equal size bilaterally and non-tender. No edema. No discoloration. SILT in bilateral lower extremities. NEURO: Normal sensorium. No sensory or motor deficits noted. SKIN: No rash or jaundice noted. Medical Decision & Procedures Medications Administered Medications (Trade) Dose Ordered Sig/Allison Route Start Time Stop Time Status Last Admin Dose Admin Oxycodone/ Acetaminophen (Percocet 5-325mg Tab) 1 tab NOW ONCE PO 08/05/17 16:00 08/05/17 16:01 DC 08/05/17 16:00 1 TAB Ibuprofen (Motrin Tab) 600 mg NOW STAT PO 08/05/17 17:26 08/05/17 17:31 DC 08/05/17 17:42 600 MG Diazepam (Valium Tab) 2 mg NOW ONCE PO 08/05/17 17:30 18 17:31 DC 08/05/17 17:42 2 MG Diazepam (Valium Tab) 6 mg NOW STAT PO 08/05/17 17:26 08/05/17 17:31 DC 08/05/17 17:42 6 MG Lidocaine (Lidoderm Patch 5%) 1 patch NOW STAT TD 08/05/17 17:26 08/05/17 17:31 DC 08/05/17 17:41 1 PATCH Lidocaine (Lidoderm Patch 5%) 1 patch NOW STAT TD 08/05/17 17:26 08/05/17 17:31 DC 08/05/17 17:41 1 PATCH ED Course 0: The patient was evaluated in room A2. A complete history and physical exam was performed. 1739: I reevaluated the patient. Discussed results and discharge instructions: She verbalized understanding and agreement. The patient is ready for discharge. Medical Decision I reviewed the patient's past medical history, medications, and the nursing notes as described above. Differential Diagnoses Include: muscular strain, fracture, complication of arthroplasty, and sciatica. The patient is a 82-year-old woman with a past medical history of arthritis and hip replacement presents emergency department with persistent left hip pain with intermittent radiation down her leg per hpi. Of note, the patient was seen on Monday and had outpatient x-rays but comes to the ED because she did not hear back about the results. On arrival, patient is relatively well- appearing, no acute distress, afebrile stable vital signs. On exam the patient has mild tenderness in the left lower lumbar region with positive left straight leg raise. She has full range of motion of bilateral hips with no instability. Outpatient plain film was reviewed which demonstrates the patient's bilateral hip arthroplasty with no evidence of complications or osseous abnormality otherwise. I reviewed the results with the patient and discussed with her that her symptoms are likely related to sciatica/a lumbosacral radiculopathy. The patient has 5/5 BLE strength and sensation. The patient shows no concerning symptoms such as urinary retention or bowel incontinence there is no indication for emergent MRI at this time. Additionally there is no recent trauma therefore no emergent need for CT scan. We will treat symptomatically and patient will follow up with her doctor. Findings and plan for follow-up reviewed with patient. Patient agreeable and d/c'd per discharge instructions. Medication Reconcilliation Current Medication List: was personally reviewed by me Blood Pressure Screening Patient's blood pressure: Elevated blood pressure Blood pressure disposition: Elevated BP felt to be situational Impression Primary Impression: Sciatica Scribe Attestation The scribe's documentation has been prepared under my direction and personally reviewed by me in its entirety. I confirm that the note above accurately reflects all work, treatment, procedures, and medical decision making performed by me. Departure Information Dispostion Home / Self-Care Prescriptions Lidocaine (Lidocaine) 1 Patch Tdsy 1 PATCH TD DAILY Y for Pain, #10 PATCH 12 hours on and 12 hours off. Prov: Arvind Duke M.D. 08/05/17 Referrals Bj Mario, D.OTayla (PCP) Forms HOME CARE DOCUMENTATION FORM, IMPORTANT VISIT INFORMATION Patient Instructions ED Sciatica, Lumbar Radiculopathy, My [facility] Additional Instructions Please follow up with your primary care physician as scheduled next week for re- evaluation and possible outpatient MRI. You may also follow up with orthopedics, Dr. Keys, if pain persists. Your symptoms are most likely related to sciatica. Otherwise, your exam did not show signs of an emergent condition at this time. Your outpatient hip xray report did not show any fractures. Acetaminophen or ibuprofen for pain as needed. Lidoderm patch for additional pain relief. Heating pad at 20 minute intervals for muscle relaxation. Valium every 6 hours as needed for additional muscle relaxation. Drink plenty of fluids to ensure hydration. Return to the emergency department for worsening symptoms as described in the accompanying instructions.
[2017-08-05] MEDS ORDERED: OXYCODONE/ACETAMINOPHEN 5-325 TAB PO ONE (16:00)
[2017-08-05 17:12] VITALS: BP 177/81; PULSE 84; O2SAT 94
[2017-08-05] MEDS ORDERED: DIAZEPAM 2MG TAB PO STA (17:26)
[2017-08-05] MEDS ORDERED: IBUPROFEN 600 MG TAB PO STA (17:26)
[2017-08-05] MEDS ORDERED: LIDODERM (LIDOCAINE) PATCH 5% TD STA ×2 (17:26)
[2017-08-05] MEDS ORDERED: DIAZEPAM 2MG TAB PO ONE (17:30)
[2017-08-05] MEDS ORDERED: LDDP5 TD (17:34)
== END 2017-08-05 17:52 | disposition home or self-care (01) ==
LOC: C.EDB 15:17 → C.EDA 17:52
DX: M54.42 Lumbago with sciatica, left side (principal); N18.3 Chronic kidney disease, stage 3 (moderate); I12.9 Hypertensive chronic kidney disease with stage 1 through stage 4 chronic kidney disease, or unspecified chronic kidney disease; I25.10 Atherosclerotic heart disease of native coronary artery without angina pectoris; E78.5 Hyperlipidemia, unspecified; H35.30 Unspecified macular degeneration; E55.9 Vitamin D deficiency, unspecified; H40.9 Unspecified glaucoma; M48.00 Spinal stenosis, site unspecified; Z79.82 Long term (current) use of aspirin; Z96.643 Presence of artificial hip joint, bilateral; Z96.653 Presence of artificial knee joint, bilateral; Z95.9 Presence of cardiac and vascular implant and graft, unspecified; Z96.1 Presence of intraocular lens; Z90.710 Acquired absence of both cervix and uterus; Z98.890 Other specified postprocedural states; Z87.01 Personal history of pneumonia (recurrent); Z86.718 Personal history of other venous thrombosis and embolism; Z87.09 Personal history of other diseases of the respiratory system; Z82.49 Family history of ischemic heart disease and other diseases of the circulatory system

== ENCOUNTER 2023-01-18 11:32 | Inpatient (IN) ==
[2023-01-18] MEDS ORDERED: MoRPHine SULFATE 4 MG/ML 1 ML CARP\\VIAL IV STA (14:27)
--- NOTE | 2023-01-18 14:45 | Emergency Department Note ---
Impression & Plan Back pain ED Provider Note Diagnosis: Intractable back pain Disposition: Admission Condition: Good INFORMANT: Patient CHIEF COMPLAINT: Back pain HPI: Patient is an 87-year-old female presenting with complaint of back pain. Patient's pain is lumbar region. Patient denies any new traumatic injury. Patient states pain sometimes radiates down both legs. Patient denies any saddle anesthesia. Patient denies any urinary retention. Patient states she has been on gabapentin and tramadol and recently started on oxycodone. Patient states that she has noticed constipation since starting the oxycodone is not on any bowel regimen. Patient has an appointment with neurosurgery outpatient and her she in 2 to 3 weeks time. Patient is having increasing pain and wanted to come to the ER to see if anything will be helped moved up appointment simon. PAST MEDICAL HISTORY: See Below PAST SURGICAL HISTORY: See Below SOCIAL HISTORY: See Below HOME MEDICATIONS: See Below ALLERGIES: See Below VITALS: See Below PHYSICAL EXAMINATION: GENERAL: Well appearing, well nourished, NAD, non-toxic. EYE EXAM: Normal conjunctiva. OROPHARYNX: Moist mucus membranes. Grossly normal dentition. NECK: Supple, LUNGS: Clear to auscultation. Normal chest wall mechanics. HEART: NSR ABDOMEN: Abdomen soft, non-tender, normo-active bowel sounds, no masses, no rebound or guarding BACK: Tenderness palpation lumbar spine, 5 out of 5 muscle strength of the lower extremities bilaterally, intact sensation lower extremities bilaterally, 2+ dorsal pedis pulses bilateral lower extremities. SKIN: No rashes and no bruising. UPPER EXTREMITIES: Upper extremities are grossly normal LOWER EXTREMITIES: Grossly normal, no edema. NEURO EXAM: A&O x3,, normal speech, moves all 4 extremities PSYCH: Cooperative MEDICAL DECISION MAKING: Patient is an 87-year-old female presenting with complaint of lower back pain. Patient states a history of spinal stenosis lumbar spine region. Patient states she has an appointment with neurosurgery at [place] on February 07. Patient has been using gabapentin and tramadol for pain and recently had oxycodone added. Patient denies any urinary retention, denies any saddle anesthesia. Patient has been having worsening pain and trouble walking at home without eliciting pain. Patient on exam today has equal muscle strength of the lower extremities with good pulses and sensation. Patient had postvoid residual that was less than 20 cc. Patient has no numbness or decree sensation and no signs of cauda equina on exam. Patient was given a dose of morphine. I did ask case management to call neurosurgery office to try to establish an appointment sooner. Case management talked with family and took down their information and will try to establish a plan to see the patient sooner as well as follow-up PCP. Patient tried to ambulate with family to the bathroom from the stretcher and had significant pain and family did not feel that it was safe for her to go home at this time. Patient's case was discussed with the hospitalist service who agrees to accept her for further treatment and evaluation. Chronic conditions affecting care: lab interpretation: No electrolyte abnormality, no leukocytosis Triage Nursing notes reviewed and agree them. Vital Signs: reviewed and remarkable for: no significant abnormalities Past Med/Surg History Medical History Aspiration pneumonia CAD (coronary artery disease) "DENA to RCA 06/2009 cath 06/2010 showed widely patent RCA and no progression of disease" Chronic back pain CKD (chronic kidney disease) stage 3, GFR 30-59 ml/min Degenerative disc disease Diverticulitis Dyslipidemia Fibromyalgia GERD (gastroesophageal reflux disease) Glaucoma bilt Hearing deficit History of anesthesia reaction aspirated during colonoscopy at [facility] 5-7yrs ago--taken to [facility] and admitted for 2 nights in ICU--no further issues, had colonoscopy 10/09/18 @ [facility] with no issues History of DVT (deep vein thrombosis) 15 yrs? ago--left leg after left knee sx HTN (hypertension) Hypercalcemia Hyperparathyroidism Macular degeneration Osteoarthritis Spinal stenosis Surgical History H/O cataract removal with insertion of prosthetic lens bilt H/O heart artery stent "DENA to RCA in 2009" x1 History of cardiac cath 2009 with 1 stent--follows with Dr. Harris History of carpal tunnel surgery bilt History of colonoscopy History of hysterectomy with unilateral oophorectomy History of left hip replacement History of right hip replacement History of tooth extraction all upper teeth History of total left knee replacement (TKR) History of total right knee replacement (TKR) Family History Brother Myocardial infarction Other Cancer Heart disease Hypertension No family history of adverse response to anesthesia Social History Smoking Status: Never smoker Cigarettes Per Day: 0; Second Hand Exposure: Yes ( was a smoker); Do You Dip or Chew Tobacco: No; Hx Alcohol Use: Yes Alcohol type: beer and wine Hx Substance Use: No Preferred Language: Upper Sorbian Communication Ability: Effective Equipment Coordinator Required: No Beliefs That Will Affect Care: None Current Living Situation: Family Current Living Situation Comment: Lives with daughter Feels Safe at Home: Yes Assistive Devices: Denture - Upper and Hearing Aid - Bilateral Allergies Allergies Allergy/AdvReac Type Severity Reaction Status Date / Time No Known Allergies Allergy Verified 10/20/21 13:29 Home Meds Home Medications Medication Instructions Recorded Confirmed aspirin 81 mg tablet,delayed 81 mg PO PM 08/13/18 01/18/23 release cholecalciferol (vitamin D3) 25 1,000 unit PO PM 08/13/18 01/18/23 mcg (1,000 unit) tablet (Vitamin D3) lisinopril 10 mg tablet 10 mg PO PM 08/13/18 01/18/23 metoprolol succinate 25 mg 12.5 mg PO PM 08/13/18 01/18/23 tablet,extended release 24 hr ropinirole 0.25 mg tablet See Rx Instructions .Route .COMPLEX 08/13/18 01/18/23 rosuvastatin 20 mg tablet 20 mg PO PM 08/13/18 01/18/23 travoprost 0.004 % eye drops 1 drp OPB HS 08/13/18 01/18/23 (Travatan Z) tramadol 50 mg tablet 50 mg PO Q6H PRN Pain 10/02/18 01/18/23 acetaminophen 500 mg tablet 500 mg PO Q6H PRN Pain 01/28/19 01/18/23 diclofenac sodium 1 % gel topical 0 g topical QID 08/30/21 01/18/23 kit famotidine 20 mg tablet 20 mg PO BID 08/30/21 01/18/23 furosemide 20 mg tablet 20 mg PO DAILY 08/30/21 01/18/23 isosorbide mononitrate 30 mg 0 mg PO DAILY 08/30/21 01/18/23 tablet,extended release 24 hr timolol maleate 0.5 % eye drops 1 drp ophthalmic (eye) DAILY 08/30/21 01/18/23 gabapentin 300 mg capsule See Rx Instructions .Route .COMPLEX 11/29/22 01/18/23 Results & Data (ED) Vital Signs Vital Signs - 24 hr 01/18/23 11:40 01/18/23 14:46 Temperature 36.4 C L Temperature Source Temporal Artery Scan Pulse Rate 62 Pulse Rate [Apical] 63 Pulse Rhythm [Apical] Regular Pulse Strength [Apical] Normal Respiratory Rate 18 18 Respiratory Effort / Characteristics Non-Labored Spontaneous Non-Labored Respiratory Depth Normal Normal Respiratory Pattern Regular Regular Blood Pressure 110/64 Blood Pressure [Right Arm] 150/76 H Blood Pressure Mean 79 Blood Pressure Mean [Right Arm] 100 Blood Pressure Position [Right Arm] Lying Pulse Oximetry 95 95 Oxygen Delivery Method Room Air Room Air Sepsis Recent Fever Within 48 Hours No Sepsis New/Unexplained Change in Mental Status N/A Sepsis Action Taken by Nursing No Action Required Laboratory Data 01/18/23 14:34 01/18/23 14:34 Lab Results 01/18/23 01/18/23 Range/Units 14:34 14:34 WBC 7.16 (4.8-10.8) K/ul RBC 3.84 L (4.20-5.40) M/uL Hgb 12.5 (12.0-16.0) g/dl Hct 35.5 L (37.0-47.0) % MCV 92.4 (80.0-100.0) fL MCH 32.6 (25.0-34.0) pg MCHC 35.2 (32.0-36.0) g/dL RDW Std Deviation 44.2 (36.4-46.3) fL RDW Coeff of Sheryl 13.1 (11.5-14.5) % Plt Count 263 (130-400) K/uL MPV 10.0 (9.4-12.4) fL Immature Gran % (Auto) 0.6 % Neut % (Auto) 64.3 % Lymph % (Auto) 20.5 % [place] % (Auto) 10.1 % Eos % (Auto) 3.8 % Baso % (Auto) 0.7 % Neut # (Auto) 4.61 (1.40-6.50) K/uL Lymph # (Auto) 1.47 (1.20-3.40) K/uL [place] # (Auto) 0.72 H (0.11-0.59) K/uL Eos # (Auto) 0.27 (0.00-0.50) K/uL Baso # (Auto) 0.05 (0.00-0.20) K/uL Immature Gran # (Auto) 0.04 (0.01-0.20) K/uL Sodium 132 L (136-145) mmol/L Potassium 4.2 (3.5-5.1) mmol/L Chloride 99 (98-107) mmol/L Carbon Dioxide 25 (21-32) mmol/L Anion Gap 8 (3-11) BUN 21 (6-23) mg/dl Creatinine 1.26 H (0.6-1.2) mg/dl Est Cr Clr Drug Dosing 36.6 ml/min Est GFR ( Amer) 44.4 ml/min Est GFR (Non-Af Amer) 38.3 ml/min BUN/Creatinine Ratio 16.7 (10-20) Glucose 98 (70-99(Fasting)) mg/dl Calcium 10.4 H (8.6-10.3) mg/dl Total Bilirubin 0.5 (0.2-1.0) mg/dl AST 20 (13-39) U/L ALT 10 (7-52) U/L Alkaline Phosphatase 82 (34-104) U/L Total Protein 6.9 (6.0-8.3) gm/dl Albumin 3.8 (3.4-5.0) gm/dl Globulin 3.1 (2.5-4.0) gm/dl Albumin/Globulin Ratio 1.2 (0.9-2) Administered Medications Discontinued Medications Dexamethasone (Dexamethasone Sod Inj 4 Mg/Ml Vial) 8 mg IV NOW STA Stop: 01/18/23 17:00 Last Admin: 01/18/23 17:08 Dose: 8 mg Documented By: RSL Morphine Sulfate (Morphine Sulfate 4 Mg/Ml 1 Ml Carp\\Vial) 4 mg IV NOW STA Stop: 01/18/23 14:28 Last Admin: 01/18/23 14:33 Dose: 4 mg Documented By: RSL Oxycodone HCl (Oxycodone Hcl Soln 5 Mg/5 Ml Udc) 10 mg PO ONCE ONE Stop: 01/18/23 17:00 Last Admin: 01/18/23 17:08 Dose: 10 mg Documented By: RSL Discharge Plan Visit Data Chief Complaint: Back Injury/Pain Stated Complaint: BACK AND LEG PAIN, EXTREME ED Provider: Stanley Handy Discharge Problem: Back pain Forms Stand Alone Forms: [facility] Prescriptions Prescriptions: No Action diclofenac sodium 1 % kit 0 g topical QID Rx Instructions: 11/29/22- pt isnt sure if she still uses this apply to single knee, ankle, foot; for foot includes sole/toes/top of foot furosemide 20 mg tablet 20 mg PO DAILY timolol maleate 0.5 % drops 1 drp ophthalmic (eye) DAILY isosorbide mononitrate 30 mg tablet extended release 24 hr 0 mg PO DAILY famotidine 20 mg tablet 20 mg PO BID travoprost [Travatan Z] 0.004 % Drops 1 drp OPB HS aspirin 81 mg Tablet,Delayed Release (Dr/Ec) 81 mg PO PM lisinopril 10 mg tablet 10 mg PO PM metoprolol succinate 25 mg tablet extended release 24 hr 12.5 mg PO PM rosuvastatin 20 mg tablet 20 mg PO PM cholecalciferol (vitamin D3) [Vitamin D3] 1,000 unit Tablet 1,000 unit PO PM ropinirole 0.25 mg Tablet See Rx Instructions .ROUTE .COMPLEX Rx Instructions: Per Pt she states she take 2 tablets, one AM and one PM. Pt maybe confused on how to take medication. Fill History is 0.25 mg QHS tramadol 50 mg Tablet 50 mg PO Q6H PRN (Reason: Pain) acetaminophen 500 mg Tablet 500 mg PO Q6H PRN (Reason: Pain) gabapentin 300 mg capsule See Rx Instructions .ROUTE .COMPLEX Rx Instructions: Per pt she takes 3 capsules daily instead of twice daily Referrals Referrals: Bj Mario, [Primary Care Provider] -
[2023-01-18 15:08] LABS: Basophils # (auto) 0.05 K/uL (0.00-0.20); Basophils % (auto) 0.7 %; Eosinophils # (auto) 0.27 K/uL (0.00-0.50); Eosinophils % (auto) 3.8 %; Hematocrit (blood only) 35.5 % (37.0-47.0); Hemoglobin 12.5 g/dl (12.0-16.0); Immature Granulocytes # (auto) 0.04 K/uL (0.01-0.20); Immature Granulocytes % (auto) 0.6 %; Lymphocytes # (auto) 1.47 K/uL (1.20-3.40); Lymphocytes % (auto) 20.5 %; Mean Corpuscular Hemoglobin 32.6 pg (25.0-34.0); Mean Corpuscular Hgb Conc 35.2 g/dL (32.0-36.0); Mean Corpuscular Volume 92.4 fL (80.0-100.0); Monocytes # (auto) 0.72 K/uL (0.11-0.59); Monocytes % (auto) 10.1 %; Neutrophils # (auto) 4.61 K/uL (1.40-6.50); Neutrophils % (auto) 64.3 %; Platelet Count 263 K/uL (130-400); RDW Coefficient of Variation 13.1 % (11.5-14.5); RDW Standard Deviation 44.2 fL (36.4-46.3); Red Blood Count 3.84 M/uL (4.20-5.40); White Blood Count 7.16 K/ul (4.8-10.8)
[2023-01-18 15:20] LABS: Albumin Globulin Ratio 1.2 (0.9-2); Albumin Level 3.8 gm/dl (3.4-5.0); BUN Creatinine Ratio 16.7 (10-20); Bilirubin,Total 0.5 mg/dl (0.2-1.0); Calcium 10.4 mg/dl (8.6-10.3); Creatinine Clr Calc Pharmacy 36.6 ml/min; Est GFR (African American) 44.4 ml/min; Est GFR (Non-African American) 38.3 ml/min; Globulin 3.1 gm/dl (2.5-4.0); Potassium 4.2 mmol/L (3.5-5.1); Total Protein 6.9 gm/dl (6.0-8.3)
[2023-01-18] MEDS ORDERED: DEXAMETHASONE SOD INJ 4 MG/ML VIAL IV STA (16:59)
[2023-01-18] MEDS ORDERED: oxyCODONE HCL SOLN 5 MG/5 ML UDC PO ONE (16:59)
[2023-01-18] MEDS ORDERED: traMADol HCL 50 MG TABLET PO PRN (18:18)
--- NOTE | 2023-01-18 18:29 | History & Physical Report ---
Date of Service January 18, 2023 Assessment & Plan (1) Back pain: Plan: secondary to known spinal stenosis Pt reports having back pain for years but now unfortunately worsening and has difficulty to function at home, reports using a walker at home but per daughters it's difficult to deal with the pain takes gabapentin tramadol hydrocodone Was given decadron and oxycodone in the ED will start methylprednisolone pack, and add baclofen prn consult pain management Pt was referred to [facility] neurosurgery by PCP - currently has appointment scheduled for Feb 07. Trying to move up her appointment. Per ED provider - ED CM called [place] neurosurgery office as well as [place] to see how early pt can be possibly seen. PT/OT Cont. to closely monitor (2) CAD (coronary artery disease): Plan: S/P Stent to RCA in 2009 No CP. -continue aspirin, metoprolol, statin, imdur (3) HTN (hypertension): Plan: -monitor BP -cont. home lisinopril, imdur Hyperlipidemia - cont. home statin (4) Spinal stenosis: Plan: -as above (5) CKD (chronic kidney disease) stage 3, GFR 30-59 ml/min: Plan: Baseline: 1.1-1.3, current Cr at baseline - monitor renal function History of Present Illness Chief Complaint: Back pain - recurrent Primary Care Provider: Bj Mario DO Pt is an 87 y/o F with lumbar spinal stenosis, CAD s/p stent to RCA in 2009, carotid stenosis, CKD III, HTN, dyslipidemia,hyperparathyroidism, non toxic nodular goiter, DVT in 2013 to RLE post R TKA, osteoarthritis who presents with complaint of severe back pain. Pt reports she has been dealing with lumbar stenosis and back pain for several years however it is getting worse and she can hardly function at home. Her 2 daughters are presents at the bedside and report that she is using walker at home but can hardly do anything due to pain. Pt's PCP sent referral to [facility] neurosurgery for for further evaluation and poss. surgical treatment. Daughters say that they have an appointment right now for February 07 but they are trying to move it up. ED provider reported to me that CM in ED contacted the [place] neurosurgery office as well as [facility] office to see if they can get to see pt earlier. When reviewing pt's chart, pt seen a [place]ropract[place] [facility] Asked if she was seen by any orthopedic surgeon at [facility] and pt denies - her daughters state that they were told that there is nobody in this area that can possibly operate on the pt. And they are trying to see a neurosurgeon/spine surgeon. Pt denies fever/chills, chest pain, shortness of breath, abd. pain, N/V. Denies incontinence. Denies any recent trauma. Denies any new weakness. Allergies Allergy/AdvReac Type Severity Reaction Status Date / Time No Known Allergies Allergy Verified 10/20/21 13:29 Home Medications Medication Instructions Recorded Confirmed Type aspirin 81 mg tablet,delayed 81 mg PO PM 08/13/18 01/18/23 History release cholecalciferol (vitamin D3) 25 1,000 unit PO PM 08/13/18 01/18/23 History mcg (1,000 unit) tablet (Vitamin D3) lisinopril 10 mg tablet 10 mg PO PM 08/13/18 01/18/23 History metoprolol succinate 25 mg 12.5 mg PO PM 08/13/18 01/18/23 History tablet,extended release 24 hr ropinirole 0.25 mg tablet See Rx Instructions .Route .COMPLEX 08/13/18 01/18/23 History rosuvastatin 20 mg tablet 20 mg PO PM 08/13/18 01/18/23 History travoprost 0.004 % eye drops 1 drp OPB HS 08/13/18 01/18/23 History (Travatan Z) tramadol 50 mg tablet 50 mg PO Q6H PRN Pain 10/02/18 01/18/23 History acetaminophen 500 mg tablet 500 mg PO Q6H PRN Pain 01/28/19 01/18/23 History diclofenac sodium 1 % gel topical 0 g topical QID 08/30/21 01/18/23 History kit famotidine 20 mg tablet 20 mg PO BID 08/30/21 01/18/23 History furosemide 20 mg tablet 20 mg PO DAILY 08/30/21 01/18/23 History isosorbide mononitrate 30 mg 0 mg PO DAILY 08/30/21 01/18/23 History tablet,extended release 24 hr timolol maleate 0.5 % eye drops 1 drp ophthalmic (eye) DAILY 08/30/21 01/18/23 History gabapentin 300 mg capsule See Rx Instructions .Route .COMPLEX 11/29/22 01/18/23 History Past Med/Surg History Medical History Aspiration pneumonia CAD (coronary artery disease) "DENA to RCA 06/2009 cath 06/2010 showed widely patent RCA and no progression of disease" Chronic back pain CKD (chronic kidney disease) stage 3, GFR 30-59 ml/min Degenerative disc disease Diverticulitis Dyslipidemia Fibromyalgia GERD (gastroesophageal reflux disease) Glaucoma bilt Hearing deficit History of anesthesia reaction aspirated during colonoscopy at [facility] 5-7yrs ago--taken to [facility] and admitted for 2 nights in ICU--no further issues, had colonoscopy 10/09/18 @ [facility] with no issues History of DVT (deep vein thrombosis) 15 yrs? ago--left leg after left knee sx HTN (hypertension) Hypercalcemia Hyperparathyroidism Macular degeneration Osteoarthritis Spinal stenosis Surgical History H/O cataract removal with insertion of prosthetic lens bilt H/O heart artery stent "DENA to RCA in 2009" x1 History of cardiac cath 2009 with 1 stent--follows with Dr. Harris History of carpal tunnel surgery bilt History of colonoscopy History of hysterectomy with unilateral oophorectomy History of left hip replacement History of right hip replacement History of tooth extraction all upper teeth History of total left knee replacement (TKR) History of total right knee replacement (TKR) Family History Brother Myocardial infarction Other Cancer Heart disease Hypertension No family history of adverse response to anesthesia Social History Smoking Status: Never smoker Cigarettes Per Day: 0; Second Hand Exposure: Yes ( was a smoker); Do You Dip or Chew Tobacco: No; Hx Alcohol Use: Yes Alcohol type: beer and wine Hx Substance Use: No Preferred Language: British Communication Ability: Effective Town Justice Required: No Beliefs That Will Affect Care: None Current Living Situation: Family Current Living Situation Comment: Lives with daughter Feels Safe at Home: Yes Assistive Devices: Denture - Upper and Hearing Aid - Bilateral Review of Systems Review of Systems: All systems reviewed & are unremarkable except as noted in HPI & below Physical Exam Constitutional: WD/WN, vitals as above Eyes: PERRL, conjunctivae normal, anicteric sclerae ENMT: external ear and nose normal, oropharynx normal Neck: trachea midline, no thyromegaly Respiratory: normal respiratory effort, lungs clear to auscultation Cardiovascular: RRR, no murmur, no edema Chest (Breasts): Chest: normal inspection of chest Gastrointestinal (Abdomen): normal bowel sounds, soft, nontender, no hepatosplenomegaly Musculoskeletal: Extremities: extremities normal to inspection (pt moves extremities however mvmt causes back pain) Skin: no rashes, warm and dry Neurologic: PERRL, EOMI, accommodation nl, no face palsy, no dysarthria Psychiatric: A+Ox3, euthymic affect Results & Data Results & Data Vital Signs (Past 12 Hours) Vital Signs Temp Pulse Pulse Resp BP BP Pulse Ox 01/18/23 14:46 63 18 150/76 H 95 01/18/23 11:40 36.4 C L 62 18 110/64 95 O2 Del Method 01/18/23 14:46 Room Air 01/18/23 11:40 Room Air Laboratory Results 01/18/23 01/18/23 Range/Units 14:34 14:34 WBC 7.16 (4.8-10.8) K/ul RBC 3.84 L (4.20-5.40) M/uL Hgb 12.5 (12.0-16.0) g/dl Hct 35.5 L (37.0-47.0) % MCV 92.4 (80.0-100.0) fL MCH 32.6 (25.0-34.0) pg MCHC 35.2 (32.0-36.0) g/dL RDW Std Deviation 44.2 (36.4-46.3) fL RDW Coeff of Sheryl 13.1 (11.5-14.5) % Plt Count 263 (130-400) K/uL MPV 10.0 (9.4-12.4) fL Immature Gran % (Auto) 0.6 % Neut % (Auto) 64.3 % Lymph % (Auto) 20.5 % [place] % (Auto) 10.1 % Eos % (Auto) 3.8 % Baso % (Auto) 0.7 % Neut # (Auto) 4.61 (1.40-6.50) K/uL Lymph # (Auto) 1.47 (1.20-3.40) K/uL [place] # (Auto) 0.72 H (0.11-0.59) K/uL Eos # (Auto) 0.27 (0.00-0.50) K/uL Baso # (Auto) 0.05 (0.00-0.20) K/uL Immature Gran # (Auto) 0.04 (0.01-0.20) K/uL Sodium 132 L (136-145) mmol/L Potassium 4.2 (3.5-5.1) mmol/L Chloride 99 (98-107) mmol/L Carbon Dioxide 25 (21-32) mmol/L Anion Gap 8 (3-11) BUN 21 (6-23) mg/dl Creatinine 1.26 H (0.6-1.2) mg/dl Est Cr Clr Drug Dosing 36.6 ml/min Est GFR ( Amer) 44.4 ml/min Est GFR (Non-Af Amer) 38.3 ml/min BUN/Creatinine Ratio 16.7 (10-20) Glucose 98 (70-99(Fasting)) mg/dl Calcium 10.4 H (8.6-10.3) mg/dl Total Bilirubin 0.5 (0.2-1.0) mg/dl AST 20 (13-39) U/L ALT 10 (7-52) U/L Alkaline Phosphatase 82 (34-104) U/L Total Protein 6.9 (6.0-8.3) gm/dl Albumin 3.8 (3.4-5.0) gm/dl Globulin 3.1 (2.5-4.0) gm/dl Albumin/Globulin Ratio 1.2 (0.9-2) Code Status & VTE Plan VTE Prophylaxis Plan VTE Prophylaxis will be ordered: Yes
[2023-01-18] MEDS: GABAPENTIN 300 MG CAP PO SCH (20:14)
[2023-01-18] MEDS: FAMOTIDINE 20 MG TAB PO SCH (23:49)
[2023-01-18] MEDS: METOPROLOL SUCC 25MG EXT REL TAB PO SCH (23:50)
[2023-01-18] MEDS: ROSUVASTATIN CALCIUM 20 MG TAB PO SCH (23:50)
[2023-01-18] MEDS: lisinopril 10 MG TAB PO SCH (23:52)
[2023-01-18] MEDS: ASPIRIN 81 MG ECTAB PO SCH (23:53)
[2023-01-19] MEDS: traMADol HCL 50 MG TABLET PO PRN ×2 (02:51→22:12)
[2023-01-19] MEDS: BACLOFEN 10 MG TAB PO PRN ×2 (02:53→12:06)
[2023-01-19] MEDS: GABAPENTIN 300 MG CAP PO SCH ×4 (06:57→21:28)
[2023-01-19] MEDS ORDERED: methylPREDNISolone 4 MG TAB PO SCH ×4 (07:00→21:00)
[2023-01-19] MEDS: CHOLECALCIFEROL 1,000 UNITS 25 MCG TAB PO SCH ×2 (07:38→21:28)
[2023-01-19] MEDS: TRAVOPROST Z 0.004% OPH SOLN 2.5 ML BTL OPB SCH ×2 (07:38→21:30)
[2023-01-19 07:57] LABS: Hematocrit (blood only) 34.8 % (37.0-47.0); Hemoglobin 11.9 g/dl (12.0-16.0); Mean Corpuscular Hemoglobin 31.2 pg (25.0-34.0); Mean Corpuscular Hgb Conc 34.2 g/dL (32.0-36.0); Mean Corpuscular Volume 91.1 fL (80.0-100.0); Mean Platelet Volume 10.1 fL (9.4-12.4); Platelet Count 248 K/uL (130-400); RDW Coefficient of Variation 12.6 % (11.5-14.5); RDW Standard Deviation 41.5 fL (36.4-46.3); Red Blood Count 3.82 M/uL (4.20-5.40); White Blood Count 6.66 K/ul (4.8-10.8)
[2023-01-19] MEDS ORDERED: traMADol HCL 50 MG TABLET PO STA (08:09)
[2023-01-19] MEDS: ACETAMINOPHEN 325 MG TAB PO PRN ×2 (08:12→12:05)
[2023-01-19 08:25] LABS: BUN Creatinine Ratio 20.7 (10-20); Calcium 10.3 mg/dl (8.6-10.3); Creatinine Clr Calc Pharmacy 36.4 ml/min; Est GFR (African American) 51.7 ml/min; Est GFR (Non-African American) 44.6 ml/min; Magnesium 1.5 mg/dl (1.7-2.4); Phosphorus 3.3 mg/dl (2.5-4.9); Potassium 4.3 mmol/L (3.5-5.1)
[2023-01-19] MEDS: methylPREDNISolone 4 MG TAB PO SCH ×4 (08:37→21:27)
--- NOTE | 2023-01-19 08:57 | Pain Management Consultation ---
Date of Consultation January 19, 2023 Assessment & Plan (1) Back pain: (2) Lumbosacral radiculopathy due to degenerative joint disease of spine: (3) Spondylolisthesis: (4) Spinal stenosis of lumbar region: Plan 1. There are no interventional procedures to offer the patient at this time while she is an inpatient. Patient has been established with an outpatient pain management clinic (Dr. Ramirez Jin) and has been receiving periodic epidural injections. Unsure if there is a plan to continue with that pain clinic. * She could consider following up with the [facility] pain clinic pending the outcome of her neurosurgery visit. 2. The following medication adjustments can be considered: * Change tramadol to 50 mg q6h scheduled 3. Agree with Medrol taper, Baclofen, PT/OT. 4. Patient needs updated lumbar spine MRI, as the last one was done in September 2021. * Order placed. * This will help with facilitating things for her [facility] visit, as well as planning for potential interlaminar vs. transforaminal JACKIE if the patient does decide to eventually follow-up with the [facility] pain clinic. Thank you for this consultation. We will follow peripherally at this time and check on the status of the patient's updated MRI. History of Present Illness Reason for Consultation: low back pain and leg pain Attending Physician: Danilo López MD History of Present Illness Patient is an 87-year-old female that presented to the [facility] ER yesterday complaining of back pain. She does relate a history of spinal stenosis in the lumbar spine. Patient localized her pain to the lumbar region and stated that she had radiating symptoms into the legs, left worse than right. Patient did not have any injury or incident that caused an injury to the back. She was also in the ER back in November for the same/similar issues. Patient does have an upcoming visit with Dr. Thacker of [facility] neurosurgery, but this is not until February 07. The patient was having increasing pain and worsening symptoms, so she apparently wanted to come to the ER to see if it would expedite things and help to get an appointment sooner with neurosurgeon. She does state a lengthy history of low back pain and radicular symptoms. She is a patient with Dr. Berg of [facility] [facility] at [facility]. She has had injections by him, of which the patient cannot really recall the details, but likely an epidural type injection. She says that most recently she has had 1 back in the July/August 2022 timeframe, which was about 5 months ago. Patient states that the injections have been helping some, but they only provide about a month or so of relief. She was recently started onto gabapentin 300 mg 3 times daily by her PCP, and she has been taking this for about 2 weeks now. Additionally, she takes tramadol, and more recently, oxycodone, at home. Patient denies bowel/bladder incontinence and saddle anesthesia. She says that she is able to walk on her own, mainly with a walker. The pain management team was consulted for help in managing the patient's back pain. Patient states that she would even go to [place] if she could get an appointment sooner than her appointment in [place]. Case discussed with Dr. Kathy Morrow. Allergies Allergy/AdvReac Type Severity Reaction Status Date / Time No Known Allergies Allergy Verified 10/20/21 13:29 Home Medications Medication Instructions Recorded Confirmed Type aspirin 81 mg tablet,delayed 81 mg PO PM 08/13/18 01/18/23 History release cholecalciferol (vitamin D3) 25 1,000 unit PO PM 08/13/18 01/18/23 History mcg (1,000 unit) tablet (Vitamin D3) lisinopril 10 mg tablet 10 mg PO PM 08/13/18 01/18/23 History metoprolol succinate 25 mg 12.5 mg PO PM 08/13/18 01/18/23 History tablet,extended release 24 hr ropinirole 0.25 mg tablet See Rx Instructions .Route .COMPLEX 08/13/18 01/18/23 History rosuvastatin 20 mg tablet 20 mg PO PM 08/13/18 01/18/23 History travoprost 0.004 % eye drops 1 drp OPB HS 08/13/18 01/18/23 History (Travatan Z) tramadol 50 mg tablet 50 mg PO Q6H PRN Pain 10/02/18 01/18/23 History acetaminophen 500 mg tablet 500 mg PO Q6H PRN Pain 01/28/19 01/18/23 History diclofenac sodium 1 % gel topical 0 g topical QID 08/30/21 01/18/23 History kit famotidine 20 mg tablet 20 mg PO BID 08/30/21 01/18/23 History furosemide 20 mg tablet 20 mg PO DAILY 08/30/21 01/18/23 History isosorbide mononitrate 30 mg 0 mg PO DAILY 08/30/21 01/18/23 History tablet,extended release 24 hr timolol maleate 0.5 % eye drops 1 drp ophthalmic (eye) DAILY 08/30/21 01/18/23 History gabapentin 300 mg capsule See Rx Instructions .Route .COMPLEX 11/29/22 01/18/23 History Pain History Pain Location Full Body Front + Back: 1. 2. 3. Patient History Medical History (Updated 01/19/23 @ 09:20 by Arnav Davis PA-C) Aspiration pneumonia CAD (coronary artery disease) "DENA to RCA 06/2009 cath 06/2010 showed widely patent RCA and no progression of disease" Chronic back pain CKD (chronic kidney disease) stage 3, GFR 30-59 ml/min Degenerative disc disease Diverticulitis Dyslipidemia Fibromyalgia GERD (gastroesophageal reflux disease) Glaucoma bilt Hearing deficit History of anesthesia reaction aspirated during colonoscopy at [facility] 5-7yrs ago--taken to [facility] and admitted for 2 nights in ICU--no further issues, had colonoscopy 10/09/18 @ [facility] with no issues History of DVT (deep vein thrombosis) 15 yrs? ago--left leg after left knee sx HTN (hypertension) Hypercalcemia Hyperparathyroidism Lumbosacral radiculopathy due to degenerative joint disease of spine Macular degeneration Osteoarthritis Spinal stenosis Spinal stenosis of lumbar region Spondylolisthesis Surgical History H/O cataract removal with insertion of prosthetic lens bilt H/O heart artery stent "DENA to RCA in 2009" x1 History of cardiac cath 2009 with 1 stent--follows with Dr. Harris History of carpal tunnel surgery bilt History of colonoscopy History of hysterectomy with unilateral oophorectomy History of left hip replacement History of right hip replacement History of tooth extraction all upper teeth History of total left knee replacement (TKR) History of total right knee replacement (TKR) Family History Brother Myocardial infarction Other Cancer Heart disease Hypertension No family history of adverse response to anesthesia Social History Smoking Status: Never smoker Cigarettes Per Day: 0; Second Hand Exposure: No; Do You Dip or Chew Tobacco: No; Tobacco Cessation Education Requested by Patient: No Hx Alcohol Use: Yes Alcohol type: hard liquor Hx Substance Use: No Preferred Language: Mohawk Communication Ability: Effective School Services Officer Required: No Beliefs That Will Affect Care: None Current Living Situation: Family Current Living Situation Comment: Daughter Corinne Marroquin lives in patients home. Feels Safe at Home: Yes Safety Concerns: Feels Safe At This Time Assistive Devices: Cane and Walker Assistive Devices Comment: assistive devices as needed Physical Exam Physical Exam: GENERAL: Speech and cognition is intact. Mood and affect is appropriate. Does not appear in acute distress. Seated in bedside chair, and does shift around to mitigate pain. HEAD: Normocephalic; atraumatic. NECK: Trachea is midline. CHEST: Regular chest respiration and excursion. EXTREMITIES: No TTP. Distal sensation and pulses intact bilaterally. BACK: Diminished ROM. + lumbosacral tenderness. Inspection/palpation demonstrates loss of normal lumbar lordotic curvature. NEURO: CN II-XII grossly intact with no focal deficits noted. Antalgic gait reported with walker. Awake, alert, and oriented x 3. Distal sensation of lower legs intact and equal bilaterally. SKIN: No lesions, erythema, or rashes noted. LOWER EXTREMITIES: Positive straight leg raise bilaterally. R Hip flexion 4/5; hip extension 4/5; knee extension 5/5; knee flexion 4-/5; ankle dorsiflexion 5/5; ankle plantar flexion 5/5; EHL 5/5 L Hip flexion 4/5; hip extension 4/5; knee extension 5/5; knee flexion 4-/5; ankle dorsiflexion 5/5; ankle plantar flexion 5/5; EHL 5/5 Results (Pain Clinic) Diagnostic Review MRI Findings: Lumbar spine MRI without contrast done at [facility] on 09/30/2021 This report was found in the [employer] link system Findings: There is moderate multilevel degenerative disc disease with loss of disc height and disc desiccation seen diffusely throughout the lumbar spine. Vertebral heights are preserved. There is a slight retrolisthesis of L1 on L2 and L2 on L3. There is a slight anterior listhesis of L4 on L5. On the sagittal T2 weighted images, no significant canal stenosis. Conus ends normally at L1 level. On the STIR images, no significant STIR signal abnormality to suggest soft tissue or ligamentous injury. On review of axial images: At L1-2: Concentric disc bulge without significant canal narrowing and mild bilateral foraminal narrowing. At L2-3: Concentric disc bulge with moderate canal narrowing and moderate bilateral foraminal narrowing. At L3-4: Concentric disc bulge with mild to moderate canal narrowing and moderate to severe bilateral foraminal narrowing. Series 7 image 12. At L4-5: Concentric disc bulge with severe canal stenosis and moderate to severe bilateral foraminal narrowing. Facet arthropathy noted at this level. Series 7 image 18. At L5-S1: Concentric disc bulge with moderate canal narrowing and moderate to severe bilateral foraminal narrowing. Series 7 image 22. Impression: 1. Moderate multilevel degenerative disc disease with loss of disc height and disc desiccation seen diffusely throughout the lumbar spine. 2. Vertebral heights are preserved. Slight retrolisthesis of L1 on L2 and L2 on L3. Slight anterolisthesis of L4 and L5. 3. At L2-3: Concentric disc bulge with moderate canal narrowing and moderate bilateral foraminal narrowing. 4. At L3-4: Concentric disc bulge with mild to moderate canal narrowing and mo derate to severe bilateral foraminal narrowing. Series 7 image 12. 5. At L4-5: Concentric disc bulge and listhesis with severe canal stenosis and moderate to severe bilateral foraminal narrowing. Facet arthropathy noted at this level. Series 7 image 18. 6. At L5-S1: Concentric disc bulge with moderate canal narrowing and moderate to severe bilateral foraminal narrowing. Series 7 image 22. 7. No STIR signal abnormality to suggest bone marrow edema, soft tissue or ligamentous injury.
[2023-01-19] MEDS ORDERED: DICLOFENAC SOD 1% GEL 100 GM TUBE EXT PRN (09:00)
[2023-01-19] MEDS ORDERED: methylPREDNISolone 4 MG TAB, 6 DAY TAPER PO SCH (09:00)
[2023-01-19] MEDS: TIMOLOL MALEATE 0.5% OP SOLN 5 ML BTL OP SCH (10:43)
[2023-01-19] MEDS: FAMOTIDINE 20 MG TAB PO SCH ×2 (10:43→21:29)
[2023-01-19] MEDS: ISOSORBIDE MONO EXTENDED REL 30 MG TABCR PO SCH (10:43)
[2023-01-19] MEDS: FUROSEMIDE 20 MG TAB PO SCH (10:43)
[2023-01-19] MEDS ORDERED: LORazepam 2 MG/1 ML VIAL IV STA (10:50)
--- NOTE | 2023-01-19 14:40 | Hospitalist Progress Note ---
Date of Service January 19, 2023 Assessment & Plan (1) Back pain: Plan: Secondary to known spinal stenosis Pt reports having back pain for years but now unfortunately worsening and has difficulty to function at home, reports using a walker at home but per daughters it's difficult to deal with the pain takes gabapentin tramadol hydrocodone Was given decadron and oxycodone in the ED will start methylprednisolone pack, and add baclofen prn Appreciate pain management input and recommendation Medications will be adjusted by the pain therapist The patient will need to have follow-up appointment with [place] neurosurgery department as planned and also with pain therapist in the [facility] MRI showed severe spinal stenosis She was referred to spine Ortho evaluation and recommendation Pt was referred to [facility] neurosurgery by PCP - currently has appointment scheduled for Feb 07. Trying to move up her appointment. Per ED provider - ED CM called [place] neurosurgery office as well as [facility] to see how early pt can be possibly seen. PT/OT Cont. to closely monitor (2) CAD (coronary artery disease): Plan: S/P Stent to RCA in 2009 No CP. -continue aspirin, metoprolol, statin, imdur (3) HTN (hypertension): Plan: -monitor BP -cont. home lisinopril, imdur Hyperlipidemia - cont. home statin (4) Spinal stenosis: Plan: -as above (5) CKD (chronic kidney disease) stage 3, GFR 30-59 ml/min: Plan: Baseline: 1.1-1.3, current Cr at baseline - monitor renal function Admission and Anticipated Discharge Date Admission Date: January 18, 2023 Subjective 01/19/2023 The patient was seen and examined in medical telemetry unit in presence of the daughter She was admitted with severe pain with radiculopathy involving the lower back and posterior thighs She has been waiting to see neurosurgery at [facility] on of next month Denies any bladder and/or bowel problem and does have minimal weakness involving the legs Review of Systems Review of Systems: All systems reviewed and are unremarkable except as noted below Musculoskeletal: Severe lower back pain with radiculopathy mostly involving back of thighs Physical Exam Physical Exam: Sitting on a chair with moderate distress due to back pain Constitutional: well developed, well nourished, + ill appearing and + obese Eyes: PERRL, conjunctivae normal, anicteric sclerae ENMT: external ear and nose normal, oropharynx normal Neck: trachea midline, no thyromegaly Respiratory: no respiratory distress Auscultation: lungs clear to auscultation bilaterally Cardiovascular: Rate/Rhythm: regular rate and regular rhythm; not tachycardic Heart Sounds: normal S1 and normal S2; no murmur Extremities: no edema Gastrointestinal (Abdomen): Inspection/Auscultation: normal bowel sounds; abdomen not distended Percussion/Palpation: abdomen soft; abdomen nontender Musculoskeletal: No acute arthritis involving any joint. Localized tenderness over lumbar spinal area Neurologic: Alert, awake and oriented x3. Lymphatic: no cervical or axillary lymphadenopathy Results & Data Results & Data Vital Signs (Past 12 Hours) Vital Signs Temp Pulse Pulse Pulse Resp BP Pulse Ox 01/19/23 12:27 36.4 C L 72 18 153/81 H 96 01/19/23 08:32 36.5 C 51 L 17 115/53 L 94 01/19/23 08:00 68 01/19/23 03:33 36.4 C L 64 16 115/78 93 01/19/23 02:50 81 O2 Del Method 01/19/23 12:27 Room Air 01/19/23 08:32 Room Air 01/19/23 08:00 01/19/23 03:33 Room Air 01/19/23 02:50 Laboratory Results Short CBC 01/18/23 01/19/23 Range/Units 14:34 06:55 WBC 7.16 6.66 (4.8-10.8) K/ul Hgb 12.5 11.9 L (12.0-16.0) g/dl Hct 35.5 L 34.8 L (37.0-47.0) % Plt Count 263 248 (130-400) K/uL BMP 01/18/23 01/19/23 14:34 06:55 Sodium 132 L 131 L Potassium 4.2 4.3 Chloride 99 99 Carbon Dioxide 25 24 BUN 21 23 Creatinine 1.26 H 1.11 Glucose 98 148 H Calcium 10.4 H 10.3 Liver Function 01/18/23 Range/Units 14:34 Total Bilirubin 0.5 (0.2-1.0) mg/dl AST 20 (13-39) U/L ALT 10 (7-52) U/L Alkaline Phosphatase 82 (34-104) U/L Albumin 3.8 (3.4-5.0) gm/dl Medications Administered Current Inpatient Medications Acetaminophen (Acetaminophen 325 Mg Tab) 650 mg PO Q4H PRN PRN Reason: Pain or Fever Stop: 02/17/23 18:14 Last Admin: 01/19/23 12:05 Dose: 650 mg Aspirin (Aspirin 81 Mg Ectab) 81 mg PO PM PATEL Stop: 02/17/23 20:59 Last Admin: 01/18/23 23:53 Dose: 81 mg Baclofen (Baclofen 10 Mg Tab) 10 mg PO TID PRN PRN Reason: back spasm pain Stop: 02/17/23 20:59 Last Admin: 01/19/23 12:06 Dose: 10 mg Diclofenac Sodium (Diclofenac Sod 1% Gel 100 Gm Tube) 0 gm EXT QID PRN PRN Reason: Pain Stop: 02/18/23 08:59 Famotidine (Famotidine 20 Mg Tab) 20 mg PO BID PATEL Stop: 02/17/23 20:59 Last Admin: 01/19/23 10:43 Dose: 20 mg Furosemide (Furosemide 20 Mg Tab) 20 mg PO DAILY PATEL Stop: 02/18/23 08:59 Last Admin: 01/19/23 10:43 Dose: 20 mg Gabapentin (Gabapentin 300 Mg Cap) 300 mg PO TID PATEL Stop: 02/17/23 18:14 Last Admin: 01/19/23 13:59 Dose: 300 mg Isosorbide Mononitrate (Isosorbide Cook Extended Rel 30 Mg Tabcr) 30 mg PO DAILY PATEL Stop: 02/18/23 08:59 Last Admin: 01/19/23 10:43 Dose: 30 mg Lisinopril (Lisinopril 10 Mg Tab) 10 mg PO PM PATEL Stop: 02/17/23 20:59 Last Admin: 01/18/23 23:52 Dose: 10 mg Methylprednisolone (Methylprednisolone 4 Mg Tab) 8 mg PO 0700,2100 PATEL Stop: 01/19/23 21:01 Last Admin: 01/19/23 08:37 Dose: 8 mg Methylprednisolone (Methylprednisolone 4 Mg Tab) 4 mg PO 1300,1800 PATEL Stop: 01/19/23 18:01 Last Admin: 01/19/23 13:59 Dose: 4 mg Methylprednisolone (Methylprednisolone 4 Mg Tab) 4 mg PO 0700,1300,1800 PATEL Stop: 01/20/23 18:01 Methylprednisolone (Methylprednisolone 4 Mg Tab) 8 mg PO HS PATEL Stop: 01/20/23 21:01 Methylprednisolone (Methylprednisolone 4 Mg Tab) 4 mg PO 0700,1300,1800,2100 PATEL Stop: 01/21/23 21:01 Methylprednisolone (Methylprednisolone 4 Mg Tab) 4 mg PO 0700,1300,2100 PATEL Stop: 01/22/23 21:01 Methylprednisolone (Methylprednisolone 4 Mg Tab) 4 mg PO 0700,2100 PATEL Stop: 01/23/23 21:01 Methylprednisolone (Methylprednisolone 4 Mg Tab) 4 mg PO 0700 PATEL Stop: 01/24/23 07:01 Metoprolol Succinate (Metoprolol Succ 25mg Ext Rel Tab) 12.5 mg PO PM PATEL Stop: 02/17/23 20:59 Last Admin: 01/18/23 23:50 Dose: 12.5 mg Rosuvastatin Calcium (Rosuvastatin Calcium 20 Mg Tab) 20 mg PO PM PATEL Stop: 02/17/23 20:59 Last Admin: 01/18/23 23:50 Dose: 20 mg Timolol Maleate (Timolol Maleate 0.5% Op Soln 5 Ml Btl) 1 drops OP DAILY PATEL Stop: 02/18/23 08:59 Last Admin: 01/19/23 10:43 Dose: 1 drops Tramadol HCl (Tramadol Hcl 50 Mg Tablet) 50 mg PO BID PRN PRN Reason: Pain Stop: 02/17/23 18:17 Last Admin: 01/19/23 02:51 Dose: 50 mg Travoprost (Travoprost Z 0.004% Oph Soln 2.5 Ml Btl) 1 drops OPB HS PATEL Stop: 02/17/23 20:59 Last Admin: 01/19/23 07:38 Dose: Not Given Vitamin D (Cholecalciferol 1,000 Units 25 Mcg Tab) 1,000 units PO PM PATEL Stop: 02/17/23 20:59 Last Admin: 01/19/23 07:38 Dose: Not Given
[2023-01-19] MEDS ORDERED: POLYETHYLENE (MIRALAX) 17 GM PACK PO PRN (15:34)
--- NOTE | 2023-01-19 15:44 | Magnetic Resonance Report ---
MR lumbar spine wo con CLINICAL HISTORY: Hx severe spinal stenosis; worsening pain TECHNIQUE: Multiplanar sequences through the lumbar spine were obtained, without intravenous contrast . Comparison: Comparison is made to CT lumbar spine 11/29/2022 FINDINGS: The alignment is anatomical. L1-L2: No significant abnormality. L2-L3: Broad-based posterior disc bulge is seen resulting in moderate canal stenosis, AP diameter 5 m m, and mild bilateral neural foraminal stenosis. L3-L4: Broad-based posterior disc bulge with moderate bilateral neural foraminal stenosis. L4-L5: Broad-based posterior disc bulge and bilateral facet arthropathy result in severe canal stenos is, AP diameter 3 mm, and severe bilateral neuroforaminal stenosis. L5-S1: Broad-based posterior disc bulge is seen with moderate to severe bilateral neural foraminal st enosis, mild canal stenosis is seen. The spinal ligaments are intact, without evidence of disruption or abnormal signal intensity. The spi nal cord is normal in signal intensity and there is no evidence of cord contusion. There is no eviden ce of an extradural, intradural, extramedullary or intramedullary lesion. Visualized soft tissues are normal. IMPRESSION: Multilevel degenerative changes with up to severe canal stenosis, AP diameter and 3 mm, and severe bi lateral neuroforaminal stenosis. ACT 112: Negative or not required by law. Electronically signed by: Boone Belle M.D. 01/19/2023 3:43 PM
[2023-01-19] MEDS: lisinopril 10 MG TAB PO SCH (21:28)
[2023-01-19] MEDS: ROSUVASTATIN CALCIUM 20 MG TAB PO SCH (21:29)
[2023-01-19] MEDS: ASPIRIN 81 MG ECTAB PO SCH (21:29)
[2023-01-19] MEDS: METOPROLOL SUCC 25MG EXT REL TAB PO SCH (21:30)
[2023-01-19] MEDS: DOCUSATE SODIUM 100 MG CAP PO SCH (21:33)
[2023-01-20] MEDS: methylPREDNISolone 4 MG TAB PO SCH ×3 (06:44→17:58)
[2023-01-20] MEDS ORDERED: methylPREDNISolone 4 MG TAB PO SCH ×2 (07:00→21:00)
[2023-01-20] MEDS: FUROSEMIDE 20 MG TAB PO SCH (07:58)
[2023-01-20] MEDS: GABAPENTIN 300 MG CAP PO SCH ×3 (07:58→21:29)
[2023-01-20] MEDS: FAMOTIDINE 20 MG TAB PO SCH ×2 (07:58→21:29)
[2023-01-20] MEDS: ISOSORBIDE MONO EXTENDED REL 30 MG TABCR PO SCH (07:59)
[2023-01-20] MEDS: TIMOLOL MALEATE 0.5% OP SOLN 5 ML BTL OP SCH (07:59)
[2023-01-20] MEDS: DOCUSATE SODIUM 100 MG CAP PO SCH ×2 (07:59→21:29)
[2023-01-20] MEDS: traMADol HCL 50 MG TABLET PO SCH ×3 (08:29→21:40)
[2023-01-20] MEDS: BACLOFEN 10 MG TAB PO PRN ×2 (09:42→17:58)
--- NOTE | 2023-01-20 09:52 | Orthopedic Consultation ---
Date of Consultation January 20, 2023 Assessment & Plan (1) Spinal stenosis of lumbar region: MRI lumbar spine performed yesterday available for review. This is in addition to a CAT scan. It demonstrates significant multilevel spondylosis. There is severe spinal stenosis most impressive at L4-L5 with evidence of instability followed by L5-S1. Assessment spinal stenosis spinal listhesis with neurogenic claudication. Plan at this time I discussed with this patient reviewing her imaging and clinical presentation. Undoubtedly she is experiencing significant neural compression and subsequent pain. We discussed possible surgical intervention. I would recommend a lumbar decompression and fusion L4-L5 L5-S1. I have discussed that she is 87 years of age and would be at increased risk. She is going to consider her options and notify us if she would like to proceed History of Present Illness Reason for Consultation: Back and bilateral leg pain Attending Physician: Danilo López MD History of Present Illness This is a very pleasant 87-year-old female presents with marked decline in status over the past several months. She has a history of back injury bilateral leg pain secondary to spinal stenosis that has been managed with injections. Unfortunately they are no longer providing any relief. She is in significant distress over the past several weeks. It radiates into the bilateral buttocks posterior thighs. Left side is markedly worse than the right. Markedly limits her ability to stand and ambulate any distance. She notes no gross strength deficits. She is considering surgical consultation. Allergies Allergy/AdvReac Type Severity Reaction Status Date / Time No Known Allergies Allergy Verified 10/20/21 13:29 Home Medications Medication Instructions Recorded Confirmed Type aspirin 81 mg tablet,delayed 81 mg PO PM 08/13/18 01/18/23 History release cholecalciferol (vitamin D3) 25 1,000 unit PO PM 08/13/18 01/18/23 History mcg (1,000 unit) tablet (Vitamin D3) lisinopril 10 mg tablet 10 mg PO PM 08/13/18 01/18/23 History metoprolol succinate 25 mg 12.5 mg PO PM 08/13/18 01/18/23 History tablet,extended release 24 hr ropinirole 0.25 mg tablet See Rx Instructions .Route .COMPLEX 08/13/18 01/18/23 History rosuvastatin 20 mg tablet 20 mg PO PM 08/13/18 01/18/23 History travoprost 0.004 % eye drops 1 drp OPB HS 08/13/18 01/18/23 History (Travatan Z) tramadol 50 mg tablet 50 mg PO Q6H PRN Pain 10/02/18 01/18/23 History acetaminophen 500 mg tablet 500 mg PO Q6H PRN Pain 01/28/19 01/18/23 History diclofenac sodium 1 % gel topical 0 g topical QID 08/30/21 01/18/23 History kit famotidine 20 mg tablet 20 mg PO BID 08/30/21 01/18/23 History furosemide 20 mg tablet 20 mg PO DAILY 08/30/21 01/18/23 History isosorbide mononitrate 30 mg 0 mg PO DAILY 08/30/21 01/18/23 History tablet,extended release 24 hr timolol maleate 0.5 % eye drops 1 drp ophthalmic (eye) DAILY 08/30/21 01/18/23 History gabapentin 300 mg capsule See Rx Instructions .Route .COMPLEX 11/29/22 01/18/23 History Patient History Medical History (Updated 01/19/23 @ 09:20 by Arnav Davis PA-C) Aspiration pneumonia CAD (coronary artery disease) "DENA to RCA 06/2009 cath 06/2010 showed widely patent RCA and no progression of disease" Chronic back pain CKD (chronic kidney disease) stage 3, GFR 30-59 ml/min Degenerative disc disease Diverticulitis Dyslipidemia Fibromyalgia GERD (gastroesophageal reflux disease) Glaucoma bilt Hearing deficit History of anesthesia reaction aspirated during colonoscopy at [facility] 5-7yrs ago--taken to [facility] and admitted for 2 nights in ICU--no further issues, had colonoscopy 10/09/18 @ [facility] with no issues History of DVT (deep vein thrombosis) 15 yrs? ago--left leg after left knee sx HTN (hypertension) Hypercalcemia Hyperparathyroidism Lumbosacral radiculopathy due to degenerative joint disease of spine Macular degeneration Osteoarthritis Spinal stenosis Spinal stenosis of lumbar region Spondylolisthesis Surgical History H/O cataract removal with insertion of prosthetic lens bilt H/O heart artery stent "DENA to RCA in 2009" x1 History of cardiac cath 2009 with 1 stent--follows with Dr. Harris History of carpal tunnel surgery bilt History of colonoscopy History of hysterectomy with unilateral oophorectomy History of left hip replacement History of right hip replacement History of tooth extraction all upper teeth History of total left knee replacement (TKR) History of total right knee replacement (TKR) Family History Brother Myocardial infarction Other Cancer Heart disease Hypertension No family history of adverse response to anesthesia Social History Smoking Status: Never smoker Cigarettes Per Day: 0; Second Hand Exposure: No; Do You Dip or Chew Tobacco: No; Tobacco Cessation Education Requested by Patient: No Hx Alcohol Use: Yes Alcohol type: hard liquor Hx Substance Use: No Preferred Language: Maltese Communication Ability: Effective Drafter Directional Survey Required: No Beliefs That Will Affect Care: None Current Living Situation: Family Current Living Situation Comment: Daughter Corinne Marroquin lives in patients home. Feels Safe at Home: Yes Safety Concerns: Feels Safe At This Time Assistive Devices: Glasses and Walker Assistive Devices Comment: assistive devices as needed Physical Exam Physical Exam: On exam she is ambulating with her walker at night paddock returned to her chair. She is markedly stooped. On bench exam she is has difficulty lifting sitting on her left side secondary to radicular pain. She has reasonable plantarflexion dorsiflexion quadricep strength bilaterally. Sensory appears to be symmetric and intact. There is some dependent edema to the lower extremities. Results & Data Vital Signs (Past 12 Hours) Vital Signs Temp Pulse Pulse Pulse Resp BP BP 01/20/23 07:36 36.5 C 69 16 139/69 01/20/23 04:00 36.7 C 76 18 135/69 01/19/23 23:00 36.6 C 73 18 124/77 01/20/23 00:22 01/20/23 00:21 73 Pulse Ox O2 Del Method 01/20/23 07:36 94 Room Air 01/20/23 04:00 96 Room Air 01/19/23 23:00 95 Room Air 01/20/23 00:22 Room Air 01/20/23 00:21
[2023-01-20] MEDS: ACETAMINOPHEN 325 MG TAB PO PRN (13:12)
[2023-01-20] MEDS ORDERED: HEPARIN SOD 5,000 UNIT/0.5 ML VIAL SQ STA (13:47)
--- NOTE | 2023-01-20 14:36 | Hospitalist Progress Note ---
Date of Service January 20, 2023 Assessment & Plan (1) Back pain: Plan: Secondary to known spinal stenosis Pt reports having back pain for years but now unfortunately worsening and has difficulty to function at home, reports using a walker at home but per daughters it's difficult to deal with the pain takes gabapentin tramadol hydrocodone Was given decadron and oxycodone in the ED will start methylprednisolone pack, and add baclofen prn Appreciate pain management input and recommendation Medications will be adjusted by the pain therapist The patient will need to have follow-up appointment with [facility] neurosurgery department as planned and also with pain therapist in the [facility] MRI showed severe spinal stenosis She was referred to spine Ortho evaluation and recommendation Pain is reasonably controlled and awaiting decision about surgery Pt was referred to [facility] neurosurgery by PCP - currently has appointment scheduled for Feb 07. Trying to move up her appointment. Per ED provider - ED CM called [facility] neurosurgery office as well as [place] to see how early pt can be possibly seen. PT/OT Cont. to closely monitor (2) CAD (coronary artery disease): Plan: S/P Stent to RCA in 2009 No CP. -continue aspirin, metoprolol, statin, imdur -No contraindication for proposed surgery (3) HTN (hypertension): Plan: -monitor BP -cont. home lisinopril, imdur Hyperlipidemia - cont. home statin (4) Spinal stenosis: Plan: -as above (5) CKD (chronic kidney disease) stage 3, GFR 30-59 ml/min: Plan: Baseline: 1.1-1.3, current Cr at baseline - monitor renal function Admission and Anticipated Discharge Date Admission Date: January 18, 2023 Subjective 01/19/2023 The patient was seen and examined in medical telemetry unit in presence of the daughter She was admitted with severe pain with radiculopathy involving the lower back and posterior thighs She has been waiting to see neurosurgery at [facility] on of next month Denies any bladder and/or bowel problem and does have minimal weakness involving the legs 01/20/2023 The patient was seen and examined in medical telemetry unit Her pain seems to be reasonably controlled with current regimen of pain medications She was seen by spine Ortho and awaiting decision for surgery Denies any other significant symptoms Review of Systems Review of Systems: All systems reviewed and are unremarkable except as noted below Musculoskeletal: Severe lower back pain with radiculopathy mostly involving back of thighs Physical Exam Physical Exam: Sitting on a chair with moderate distress due to back pain Constitutional: well developed, well nourished, + ill appearing and + obese Eyes: PERRL, conjunctivae normal, anicteric sclerae ENMT: external ear and nose normal, oropharynx normal Neck: trachea midline, no thyromegaly Respiratory: no respiratory distress Auscultation: lungs clear to auscultation bilaterally Cardiovascular: Rate/Rhythm: regular rate and regular rhythm; not tachycardic Heart Sounds: normal S1 and normal S2; no murmur Extremities: no edema Gastrointestinal (Abdomen): Inspection/Auscultation: normal bowel sounds; abdomen not distended Percussion/Palpation: abdomen soft; abdomen nontender Musculoskeletal: No acute arthritis involving any of the joint. Has significant pain in the lower back with radiation to back of the thighs Neurologic: normal touch/pain/proprioception and moves all extremities; no focal motor deficits Psychiatric: A+Ox3, euthymic affect Lymphatic: no cervical or axillary lymphadenopathy Results & Data Results & Data Vital Signs (Past 12 Hours) Vital Signs Temp Pulse Pulse Resp BP Pulse Ox O2 Del Method 01/20/23 11:20 36.7 C 63 20 102/63 95 Room Air 01/20/23 07:36 36.5 C 69 16 139/69 94 Room Air 01/20/23 04:00 36.7 C 76 18 135/69 96 Room Air Laboratory Results Home Medications Medication Instructions Recorded Confirmed aspirin 81 mg tablet,delayed 81 mg PO PM 08/13/18 01/18/23 release cholecalciferol (vitamin D3) 25 1,000 unit PO PM 08/13/18 01/18/23 mcg (1,000 unit) tablet (Vitamin D3) lisinopril 10 mg tablet 10 mg PO PM 08/13/18 01/18/23 metoprolol succinate 25 mg 12.5 mg PO PM 08/13/18 01/18/23 tablet,extended release 24 hr ropinirole 0.25 mg tablet See Rx Instructions .Route .COMPLEX 08/13/18 01/18/23 rosuvastatin 20 mg tablet 20 mg PO PM 08/13/18 01/18/23 travoprost 0.004 % eye drops 1 drp OPB HS 08/13/18 01/18/23 (Travatan Z) tramadol 50 mg tablet 50 mg PO Q6H PRN Pain 10/02/18 01/18/23 acetaminophen 500 mg tablet 500 mg PO Q6H PRN Pain 01/28/19 01/18/23 diclofenac sodium 1 % gel topical 0 g topical QID 08/30/21 01/18/23 kit famotidine 20 mg tablet 20 mg PO BID 08/30/21 01/18/23 furosemide 20 mg tablet 20 mg PO DAILY 08/30/21 01/18/23 isosorbide mononitrate 30 mg 0 mg PO DAILY 08/30/21 01/18/23 tablet,extended release 24 hr timolol maleate 0.5 % eye drops 1 drp ophthalmic (eye) DAILY 08/30/21 01/18/23 gabapentin 300 mg capsule See Rx Instructions .Route .COMPLEX 11/29/22 01/18/23 Medications Administered Current Inpatient Medications Acetaminophen (Acetaminophen 325 Mg Tab) 650 mg PO Q4H PRN PRN Reason: Pain or Fever Stop: 02/17/23 18:14 Last Admin: 01/20/23 13:12 Dose: 650 mg Aspirin (Aspirin 81 Mg Ectab) 81 mg PO PM PATEL Stop: 02/17/23 20:59 Last Admin: 01/19/23 21:29 Dose: 81 mg Baclofen (Baclofen 10 Mg Tab) 10 mg PO TID PRN PRN Reason: back spasm pain Stop: 02/17/23 20:59 Last Admin: 01/20/23 09:42 Dose: 10 mg Diclofenac Sodium (Diclofenac Sod 1% Gel 100 Gm Tube) 0 gm EXT QID PRN PRN Reason: Pain Stop: 02/18/23 08:59 Docusate Sodium (Docusate Sodium 100 Mg Cap) 100 mg PO BID PATEL Stop: 02/18/23 20:59 Last Admin: 01/20/23 07:59 Dose: 100 mg Famotidine (Famotidine 20 Mg Tab) 20 mg PO BID PATEL Stop: 02/17/23 20:59 Last Admin: 01/20/23 07:58 Dose: 20 mg Furosemide (Furosemide 20 Mg Tab) 20 mg PO DAILY PATEL Stop: 02/18/23 08:59 Last Admin: 01/20/23 07:58 Dose: 20 mg Gabapentin (Gabapentin 300 Mg Cap) 300 mg PO TID PATEL Stop: 02/17/23 18:14 Last Admin: 01/20/23 13:09 Dose: 300 mg Heparin Sodium (Porcine) (Heparin Sod 5,000 Unit/0.5 Ml Vial) 5,000 units SQ Q12 PATEL Stop: 02/19/23 20:59 Isosorbide Mononitrate (Isosorbide [place] Extended Rel 30 Mg Tabcr) 30 mg PO DAILY PATEL Stop: 02/18/23 08:59 Last Admin: 01/20/23 07:59 Dose: 30 mg Lisinopril (Lisinopril 10 Mg Tab) 10 mg PO PM PATEL Stop: 02/17/23 20:59 Last Admin: 01/19/23 21:28 Dose: 10 mg Methylprednisolone (Methylprednisolone 4 Mg Tab) 4 mg PO 0700,1300,1800 PATEL Stop: 01/20/23 18:01 Last Admin: 01/20/23 13:10 Dose: 4 mg Methylprednisolone (Methylprednisolone 4 Mg Tab) 8 mg PO HS PATEL Stop: 01/20/23 21:01 Methylprednisolone (Methylprednisolone 4 Mg Tab) 4 mg PO 0700,1300,1800,2100 PATEL Stop: 01/21/23 21:01 Methylprednisolone (Methylprednisolone 4 Mg Tab) 4 mg PO 0700,1300,2100 PATEL Stop: 01/22/23 21:01 Methylprednisolone (Methylprednisolone 4 Mg Tab) 4 mg PO 0700,2100 PATEL Stop: 01/23/23 21:01 Methylprednisolone (Methylprednisolone 4 Mg Tab) 4 mg PO 0700 PATEL Stop: 01/24/23 07:01 Metoprolol Succinate (Metoprolol Succ 25mg Ext Rel Tab) 12.5 mg PO PM PATEL Stop: 02/17/23 20:59 Last Admin: 01/19/23 21:30 Dose: 12.5 mg Polyethylene Glycol (Polyethylene (Miralax) 17 Gm Pack) 17 gm PO DAILY PRN PRN Reason: Constipation Stop: 02/18/23 15:33 Rosuvastatin Calcium (Rosuvastatin Calcium 20 Mg Tab) 20 mg PO PM PATEL Stop: 02/17/23 20:59 Last Admin: 01/19/23 21:29 Dose: 20 mg Timolol Maleate (Timolol Maleate 0.5% Op Soln 5 Ml Btl) 1 drops OP DAILY PATEL Stop: 02/18/23 08:59 Last Admin: 01/20/23 07:59 Dose: 1 drops Tramadol HCl (Tramadol Hcl 50 Mg Tablet) 50 mg PO Q6H PATEL Stop: 02/19/23 08:59 Last Admin: 01/20/23 08:29 Dose: 50 mg Travoprost (Travoprost Z 0.004% Oph Soln 2.5 Ml Btl) 1 drops OPB HS PATEL Stop: 02/17/23 20:59 Last Admin: 01/19/23 21:30 Dose: 1 drops Vitamin D (Cholecalciferol 1,000 Units 25 Mcg Tab) 1,000 units PO PM PATEL Stop: 02/17/23 20:59 Last Admin: 01/19/23 21:28 Dose: 1,000 units
[2023-01-20] MEDS: HEPARIN SOD 5,000 UNIT/0.5 ML VIAL SQ SCH (21:26)
[2023-01-20] MEDS: lisinopril 10 MG TAB PO SCH (21:26)
[2023-01-20] MEDS: METOPROLOL SUCC 25MG EXT REL TAB PO SCH (21:27)
[2023-01-20] MEDS: CHOLECALCIFEROL 1,000 UNITS 25 MCG TAB PO SCH (21:29)
[2023-01-20] MEDS: ASPIRIN 81 MG ECTAB PO SCH (21:30)
[2023-01-20] MEDS: TRAVOPROST Z 0.004% OPH SOLN 2.5 ML BTL OPB SCH (21:31)
[2023-01-20] MEDS: ROSUVASTATIN CALCIUM 20 MG TAB PO SCH (21:31)
[2023-01-21] MEDS: traMADol HCL 50 MG TABLET PO SCH ×4 (03:07→19:54)
[2023-01-21] MEDS ORDERED: methylPREDNISolone 4 MG TAB PO SCH (07:00)
[2023-01-21] MEDS: ISOSORBIDE MONO EXTENDED REL 30 MG TABCR PO SCH (08:54)
[2023-01-21] MEDS: FUROSEMIDE 20 MG TAB PO SCH (08:54)
[2023-01-21] MEDS: methylPREDNISolone 4 MG TAB PO SCH ×4 (08:54→19:56)
[2023-01-21] MEDS: FAMOTIDINE 20 MG TAB PO SCH ×2 (08:55→19:56)
[2023-01-21] MEDS: GABAPENTIN 300 MG CAP PO SCH ×3 (08:55→19:56)
[2023-01-21] MEDS: HEPARIN SOD 5,000 UNIT/0.5 ML VIAL SQ SCH ×2 (08:56→19:55)
[2023-01-21] MEDS: DOCUSATE SODIUM 100 MG CAP PO SCH ×2 (08:56→19:57)
[2023-01-21] MEDS: TIMOLOL MALEATE 0.5% OP SOLN 5 ML BTL OP SCH (08:56)
--- NOTE | 2023-01-21 10:22 | Orthopedic Progress Note ---
Date of Service January 21, 2023 Assessment & Plan (1) Spinal stenosis of lumbar region: Plan: Assessment lumbar spinal stenosis with spondylolisthesis and neurogenic claudication. Plan I had a lengthy discussion today with the patient and her family reviewing her MRI findings and clinical presentation. She is a candidate for surgical intervention. It would require a lumbar decompression and fusion L4-L5 L5-S1. Risk benefits pros cons and alternatives were in detail. [facility] forward with a surgery soon as possible. Looking at the schedule I would tentatively put her on for next Monday if cleared by medicine. Admission and Anticipated Discharge Date Admission Date: January 18, 2023 Subjective Patient continues to have back and bilateral leg pain markedly limiting her ability to stand and ambulate. This become more incapacitating over the past several months. Her son and daughter are currently in the room with her today. Physical Exam Physical Exam: On exam she is in bed. She is reasonable strength testing. Results & Data Vital Signs (Past 12 Hours) Vital Signs Temp Pulse Pulse Resp BP BP Pulse Ox 01/21/23 09:34 36.4 C L 57 L 18 154/83 H 98 01/21/23 07:30 64 01/21/23 03:03 60 18 143/90 H 93 01/20/23 23:01 36.6 C 59 L 18 156/79 H 97 O2 Del Method 01/21/23 09:34 Room Air 01/21/23 07:30 01/21/23 03:03 Room Air 01/20/23 23:01 Room Air
--- NOTE | 2023-01-21 13:25 | Hospitalist Progress Note ---
Date of Service January 21, 2023 Assessment & Plan (1) Back pain: Plan: Secondary to known spinal stenosis Pt reports having back pain for years but now unfortunately worsening and has difficulty to function at home, reports using a walker at home but per daughters it's difficult to deal with the pain takes gabapentin tramadol hydrocodone Was given decadron and oxycodone in the ED will start methylprednisolone pack, and add baclofen prn Appreciate pain management input and recommendation Medications will be adjusted by the pain therapist The patient will need to have follow-up appointment with [facility] neurosurgery department as planned and also with pain therapist in the [facility] MRI showed severe spinal stenosis She was referred to spine Ortho evaluation and recommendation Pain is reasonably controlled and awaiting decision about surgery The patient has decided to go for lumbar decompression fusion after discussion with the family members Pt was referred to [facility] neurosurgery by PCP - currently has appointment scheduled for Feb 07. Trying to move up her appointment. Per ED provider - ED CM called [facility] neurosurgery office as well as [place] to see how early pt can be possibly seen. PT/OT Cont. to closely monitor (2) CAD (coronary artery disease): Plan: S/P Stent to RCA in 2009 No CP. -continue aspirin, metoprolol, statin, imdur -Will get EKG , chest x-ray and echocardiographic before the proposed surgery (3) HTN (hypertension): Plan: -monitor BP -cont. home lisinopril, imdur Hyperlipidemia - cont. home statin (4) Spinal stenosis: Plan: -as above (5) CKD (chronic kidney disease) stage 3, GFR 30-59 ml/min: Plan: Baseline: 1.1-1.3, current Cr at baseline - monitor renal function Admission and Anticipated Discharge Date Admission Date: January 18, 2023 Subjective 01/19/2023 The patient was seen and examined in medical telemetry unit in presence of the daughter She was admitted with severe pain with radiculopathy involving the lower back and posterior thighs She has been waiting to see neurosurgery at [facility] on of next month Denies any bladder and/or bowel problem and does have minimal weakness involving the legs 01/20/2023 The patient was seen and examined in medical telemetry unit Her pain seems to be reasonably controlled with current regimen of pain medications She was seen by spine Ortho and awaiting decision for surgery Denies any other significant symptoms 01/21/2023 The patient was seen and examined in medical telemetry unit She has decided to go for lumbar surgery after discussion with the family members Pain seems to be controlled and denies any other symptoms Review of Systems Review of Systems: All systems reviewed and are unremarkable except as noted below Musculoskeletal: Severe lower back pain with radiculopathy mostly involving back of thighs Physical Exam Physical Exam: Sitting on a chair with moderate distress due to back pain Constitutional: well developed, well nourished, + ill appearing and + obese Eyes: PERRL, conjunctivae normal, anicteric sclerae ENMT: external ear and nose normal, oropharynx normal Neck: trachea midline, no thyromegaly Respiratory: no respiratory distress Auscultation: lungs clear to ausculta tion bilaterally Cardiovascular: Rate/Rhythm: regular rate and regular rhythm; not tachycardic Heart Sounds: normal S1 and normal S2; no murmur Extremities: no edema Gastrointestinal (Abdomen): Inspection/Auscultation: normal bowel sounds; abdomen not distended Percussion/Palpation: abdomen soft; abdomen nontender Neurologic: normal touch/pain/proprioception and moves all extremities; no focal motor deficits Psychiatric: A+Ox3, euthymic affect Lymphatic: no cervical or axillary lymphadenopathy Results & Data Results & Data Vital Signs (Past 12 Hours) Vital Signs Temp Pulse Pulse Resp BP Pulse Ox O2 Del Method 01/21/23 11:48 36.4 C L 61 18 115/67 96 Room Air 01/21/23 09:34 36.4 C L 57 L 18 154/83 H 98 Room Air 01/21/23 07:30 64 01/21/23 03:03 60 18 143/90 H 93 Room Air Medications Administered Current Inpatient Medications Acetaminophen (Acetaminophen 325 Mg Tab) 650 mg PO Q4H PRN PRN Reason: Pain or Fever Stop: 02/17/23 18:14 Last Admin: 01/20/23 13:12 Dose: 650 mg Aspirin (Aspirin 81 Mg Ectab) 81 mg PO PM PATEL Stop: 02/17/23 20:59 Last Admin: 01/20/23 21:30 Dose: 81 mg Baclofen (Baclofen 10 Mg Tab) 10 mg PO TID PRN PRN Reason: back spasm pain Stop: 02/17/23 20:59 Last Admin: 01/20/23 17:58 Dose: 10 mg Diclofenac Sodium (Diclofenac Sod 1% Gel 100 Gm Tube) 0 gm EXT QID PRN PRN Reason: Pain Stop: 02/18/23 08:59 Docusate Sodium (Docusate Sodium 100 Mg Cap) 100 mg PO BID PATEL Stop: 02/18/23 20:59 Last Admin: 01/21/23 08:56 Dose: 100 mg Famotidine (Famotidine 20 Mg Tab) 20 mg PO BID PATEL Stop: 02/17/23 20:59 Last Admin: 01/21/23 08:55 Dose: 20 mg Furosemide (Furosemide 20 Mg Tab) 20 mg PO DAILY PATEL Stop: 02/18/23 08:59 Last Admin: 01/21/23 08:54 Dose: 20 mg Gabapentin (Gabapentin 300 Mg Cap) 300 mg PO TID PATEL Stop: 02/17/23 18:14 Last Admin: 01/21/23 08:55 Dose: 300 mg Heparin Sodium (Porcine) (Heparin Sod 5,000 Unit/0.5 Ml Vial) 5,000 units SQ Q12 PATEL Stop: 02/19/23 20:59 Last Admin: 01/21/23 08:56 Dose: 5,000 units Isosorbide Mononitrate (Isosorbide [place] Extended Rel 30 Mg Tabcr) 30 mg PO DAILY PATEL Stop: 02/18/23 08:59 Last Admin: 01/21/23 08:54 Dose: 30 mg Lisinopril (Lisinopril 10 Mg Tab) 10 mg PO PM PATEL Stop: 02/17/23 20:59 Last Admin: 01/20/23 21:26 Dose: 10 mg Methylprednisolone (Methylprednisolone 4 Mg Tab) 4 mg PO 0700,1300,1800,2100 PATEL Stop: 01/21/23 21:01 Last Admin: 01/21/23 13:04 Dose: 4 mg Methylprednisolone (Methylprednisolone 4 Mg Tab) 4 mg PO 0700,1300,2100 PATEL Stop: 01/22/23 21:01 Methylprednisolone (Methylprednisolone 4 Mg Tab) 4 mg PO 0700,2100 PATEL Stop: 01/23/23 21:01 Methylprednisolone (Methylprednisolone 4 Mg Tab) 4 mg PO 0700 PATEL Stop: 01/24/23 07:01 Metoprolol Succinate (Metoprolol Succ 25mg Ext Rel Tab) 12.5 mg PO PM PATEL Stop: 02/17/23 20:59 Last Admin: 01/20/23 21:27 Dose: 12.5 mg Polyethylene Glycol (Polyethylene (Miralax) 17 Gm Pack) 17 gm PO DAILY PRN PRN Reason: Constipation Stop: 02/18/23 15:33 Rosuvastatin Calcium (Rosuvastatin Calcium 20 Mg Tab) 20 mg PO PM PATEL Stop: 02/17/23 20:59 Last Admin: 01/20/23 21:31 Dose: 20 mg Timolol Maleate (Timolol Maleate 0.5% Op Soln 5 Ml Btl) 1 drops OP DAILY PATEL Stop: 02/18/23 08:59 Last Admin: 01/21/23 08:56 Dose: 1 drops Tramadol HCl (Tramadol Hcl 50 Mg Tablet) 50 mg PO Q6H PATEL Stop: 02/19/23 08:59 Last Admin: 01/21/23 09:03 Dose: 50 mg Travoprost (Travoprost Z 0.004% Oph Soln 2.5 Ml Btl) 1 drops OPB HS PATEL Stop: 02/17/23 20:59 Last Admin: 01/20/23 21:31 Dose: 1 drops Vitamin D (Cholecalciferol 1,000 Units 25 Mcg Tab) 1,000 units PO PM PATEL Stop: 02/17/23 20:59 Last Admin: 01/20/23 21:29 Dose: 1,000 units
--- NOTE | 2023-01-21 17:18 | XRay Report ---
XR chest 1V portable CLINICAL HISTORY: pre-op TECHNIQUE: Single frontal radiograph of the chest was obtained. Comparison: Comparison is made to chest radiograph 09/01/2016 FINDINGS: No lines and tubes are seen. The cardiomediastinal silhouette is normal. The lungs are clear. No evid ence of pleural effusion or pneumothorax. IMPRESSION: No acute chest disease. ACT 112: Negative or not required by law. Electronically signed by: Boone Belle M.D. 01/21/2023 5:17 PM
[2023-01-21] MEDS: TRAVOPROST Z 0.004% OPH SOLN 2.5 ML BTL OPB SCH (19:54)
[2023-01-21] MEDS: METOPROLOL SUCC 25MG EXT REL TAB PO SCH (19:55)
[2023-01-21] MEDS: lisinopril 10 MG TAB PO SCH (19:55)
[2023-01-21] MEDS: ROSUVASTATIN CALCIUM 20 MG TAB PO SCH (19:55)
[2023-01-21] MEDS: CHOLECALCIFEROL 1,000 UNITS 25 MCG TAB PO SCH (19:57)
[2023-01-21] MEDS: ASPIRIN 81 MG ECTAB PO SCH (19:57)
[2023-01-22] MEDS: traMADol HCL 50 MG TABLET PO SCH ×4 (03:01→20:58)
[2023-01-22] MEDS: methylPREDNISolone 4 MG TAB PO SCH ×3 (06:02→20:59)
[2023-01-22] MEDS ORDERED: methylPREDNISolone 4 MG TAB PO SCH (07:00)
[2023-01-22] MEDS: FAMOTIDINE 20 MG TAB PO SCH ×2 (09:53→21:00)
[2023-01-22] MEDS: DOCUSATE SODIUM 100 MG CAP PO SCH ×2 (09:53→21:00)
[2023-01-22] MEDS: GABAPENTIN 300 MG CAP PO SCH ×3 (09:53→21:00)
[2023-01-22] MEDS: HEPARIN SOD 5,000 UNIT/0.5 ML VIAL SQ SCH ×2 (09:54→20:58)
[2023-01-22] MEDS: ISOSORBIDE MONO EXTENDED REL 30 MG TABCR PO SCH (09:54)
[2023-01-22] MEDS: FUROSEMIDE 20 MG TAB PO SCH (09:54)
[2023-01-22] MEDS: TIMOLOL MALEATE 0.5% OP SOLN 5 ML BTL OP SCH (09:55)
--- NOTE | 2023-01-22 11:31 | Hospitalist Progress Note ---
Date of Service January 22, 2023 Assessment & Plan (1) Back pain: Plan: Secondary to known spinal stenosis Pt reports having back pain for years but now unfortunately worsening and has difficulty to function at home, reports using a walker at home but per daughters it's difficult to deal with the pain takes gabapentin tramadol hydrocodone Was given decadron and oxycodone in the ED will start methylprednisolone pack, and add baclofen prn Appreciate pain management input and recommendation Medications will be adjusted by the pain therapist The patient will need to have follow-up appointment with [facility] as planned [facility] showed severe spinal stenosis She was referred to spine Ortho evaluation and recommendation Pain is reasonably controlled and awaiting decision about surgery The patient has decided to go for lumbar decompression fusion after discussion with the family members Pain is controlled at rest-does not have any bladder and or bowel retention Pt was referred to [facility] neurosurgery by PCP - currently has appointment scheduled for Feb 07. Trying to move up her appointment. Per ED provider - ED CM called [facility] office as well as [facility] to see how early pt can be possibly seen. PT/OT Cont. to closely monitor (2) CAD (coronary artery disease): Plan: S/P Stent to RCA in 2009 No CP. -continue aspirin, metoprolol, statin, imdur -Will get EKG , chest x-ray and echocardiographic before the proposed surgery -Echo of the heart showedmild concentric LVH, LV wall motion is normal, LV systolic function is normal with EF 55 to 60%, aortic valve sclerosis moderate without significant aortic valvular stenosis and grade 1 diastolic dysfunction -Awaiting EKG and the chest x-ray did not show any cardiomegaly under CHF -There will not be any contraindication to proposed surgery (3) HTN (hypertension): Plan: -monitor BP -cont. home lisinopril, imdur Hyperlipidemia - cont. home statin (4) Spinal stenosis: Plan: -as above (5) CKD (chronic kidney disease) stage 3, GFR 30-59 ml/min: Plan: Baseline: 1.1-1.3, current Cr at baseline - monitor renal function Admission and Anticipated Discharge Date Admission Date: January 18, 2023 Subjective 01/19/2023 The patient was seen and examined in medical telemetry unit in presence of the daughter She was admitted with severe pain with radiculopathy involving the lower back and posterior thighs She has been waiting to see neurosurgery at [facility] on of next month Denies any bladder and/or bowel problem and does have minimal weakness involving the legs 01/20/2023 The patient was seen and examined in medical telemetry unit Her pain seems to be reasonably controlled with current regimen of pain medications She was seen by spine Ortho and awaiting decision for surgery Denies any other significant symptoms 01/21/2023 The patient was seen and examined in medical telemetry unit She has decided to go for lumbar surgery after discussion with the family members Pain seems to be controlled and denies any other symptoms 01/22/2023 The patient was seen and examined in medical telemetry unit Heart pain seems to be controlled at rest Complains back pain with radiation to the back of the thighs and buttock with any movement Awaiting lumbar spine surgery Review of Systems Review of Systems: All systems reviewed and are unremarkable except as noted below Musculoskeletal: Severe lower back pain with radiculopathy mostly involving back of thighs Physical Exam Physical Exam: Sitting on a chair with moderate distress due to back pain Constitutional: well developed, well nourished, + ill appearing and + obese Eyes: PERRL, conjunctivae normal, anicteric sclerae ENMT: external ear and nose normal, oropharynx normal Neck: trachea midline, no thyromegaly Respiratory: no respiratory distress Auscultation: lungs clear to auscultation bilaterally Cardiovascular: Rate/Rhythm: regular rate and regular rhythm; not tachycardic Heart Sounds: normal S1 and normal S2; no murmur Extremities: no edema Gastrointestinal (Abdomen): Inspection/Auscultation: normal bowel sounds; abdomen not distended Percussion/Palpation: abdomen soft; abdomen nontender Neurologic: normal touch/pain/proprioception and moves all extremities; no focal motor deficits Psychiatric: A+Ox3, euthymic affect Lymphatic: no cervical or axillary lymphadenopathy Results & Data Results & Data Vital Signs (Past 12 Hours) Vital Signs Temp Pulse Pulse Resp BP BP Pulse Ox 01/22/23 08:34 36.5 C 58 L 17 129/84 95 01/22/23 08:28 01/22/23 07:04 61 01/22/23 03:20 36.4 C L 57 L 18 132/74 96 01/22/23 00:33 60 09/02/23 23:36 36.5 C 59 L 18 131/79 96 O2 Del Method 01/22/23 08:34 Room Air 01/22/23 08:28 Room Air 01/22/23 07:04 01/22/23 03:20 Room Air 01/22/23 00:33 01/21/23 23:36 Room Air Medications Administered Current Inpatient Medications Acetaminophen (Acetaminophen 325 Mg Tab) 650 mg PO Q4H PRN PRN Reason: Pain or Fever Stop: 02/17/23 18:14 Last Admin: 01/20/23 13:12 Dose: 650 mg Aspirin (Aspirin 81 Mg Ectab) 81 mg PO PM PATEL Stop: 02/17/23 20:59 Last Admin: 01/21/23 19:57 Dose: 81 mg Baclofen (Baclofen 10 Mg Tab) 10 mg PO TID PRN PRN Reason: back spasm pain Stop: 02/17/23 20:59 Last Admin: 01/20/23 17:58 Dose: 10 mg Diclofenac Sodium (Diclofenac Sod 1% Gel 100 Gm Tube) 0 gm EXT QID PRN PRN Reason: Pain Stop: 02/18/23 08:59 Docusate Sodium (Docusate Sodium 100 Mg Cap) 100 mg PO BID PATEL Stop: 02/18/23 20:59 Last Admin: 01/22/23 09:53 Dose: 100 mg Famotidine (Famotidine 20 Mg Tab) 20 mg PO BID PATEL Stop: 02/17/23 20:59 Last Admin: 01/22/23 09:53 Dose: 20 mg Furosemide (Furosemide 20 Mg Tab) 20 mg PO DAILY PATEL Stop: 02/18/23 08:59 Last Admin: 01/22/23 09:54 Dose: 20 mg Gabapentin (Gabapentin 300 Mg Cap) 300 mg PO TID PATEL Stop: 02/17/23 18:14 Last Admin: 01/22/23 09:53 Dose: 300 mg Heparin Sodium (Porcine) (Heparin Sod 5,000 Unit/0.5 Ml Vial) 5,000 units SQ Q12 PATEL Stop: 02/19/23 20:59 Last Admin: 01/22/23 09:54 Dose: 5,000 units Isosorbide Mononitrate (Isosorbide [place] Extended Rel 30 Mg Tabcr) 30 mg PO DAILY PATEL Stop: 02/18/23 08:59 Last Admin: 01/22/23 09:54 Dose: 30 mg Lisinopril (Lisinopril 10 Mg Tab) 10 mg PO PM PATEL Stop: 02/17/23 20:59 Last Admin: 01/21/23 19:55 Dose: 10 mg Methylprednisolone (Methylprednisolone 4 Mg Tab) 4 mg PO 0700,1300,2100 PATEL Stop: 01/22/23 21:01 Last Admin: 01/22/23 06:02 Dose: 4 mg Methylprednisolone (Methylprednisolone 4 Mg Tab) 4 mg PO 0700,2100 PATEL Stop: 01/23/23 21:01 Methylprednisolone (Methylprednisolone 4 Mg Tab) 4 mg PO 0700 PATEL Stop: 01/24/23 07:01 Metoprolol Succinate (Metoprolol Succ 25mg Ext Rel Tab) 12.5 mg PO PM PATEL Stop: 02/17/23 20:59 Last Admin: 01/21/23 19:55 Dose: 12.5 mg Polyethylene Glycol (Polyethylene (Miralax) 17 Gm Pack) 17 gm PO DAILY PRN PRN Reason: Constipation Stop: 02/18/23 15:33 Last Admin: 01/22/23 10:06 Dose: 17 gm Rosuvastatin Calcium (Rosuvastatin Calcium 20 Mg Tab) 20 mg PO PM PATEL Stop: 02/17/23 20:59 Last Admin: 01/21/23 19:55 Dose: 20 mg Timolol Maleate (Timolol Maleate 0.5% Op Soln 5 Ml Btl) 1 drops OP DAILY PATEL Stop: 02/18/23 08:59 Last Admin: 01/22/23 09:55 Dose: 1 drops Tramadol HCl (Tramadol Hcl 50 Mg Tablet) 50 mg PO Q6H PATEL Stop: 02/19/23 08:59 Last Admin: 01/22/23 09:56 Dose: 50 mg Travoprost (Travoprost Z 0.004% Oph Soln 2.5 Ml Btl) 1 drops OPB HS PATEL Stop: 02/17/23 20:59 Last Admin: 01/21/23 19:54 Dose: 1 drops Vitamin D (Cholecalciferol 1,000 Units 25 Mcg Tab) 1,000 units PO PM PATEL Stop: 02/17/23 20:59 Last Admin: 01/21/23 19:57 Dose: 1,000 units
[2023-01-22] MEDS: METOPROLOL SUCC 25MG EXT REL TAB PO SCH (20:59)
[2023-01-22] MEDS: lisinopril 10 MG TAB PO SCH (20:59)
[2023-01-22] MEDS: TRAVOPROST Z 0.004% OPH SOLN 2.5 ML BTL OPB SCH (20:59)
[2023-01-22] MEDS: ROSUVASTATIN CALCIUM 20 MG TAB PO SCH (20:59)
[2023-01-22] MEDS: ASPIRIN 81 MG ECTAB PO SCH (21:01)
[2023-01-22] MEDS: CHOLECALCIFEROL 1,000 UNITS 25 MCG TAB PO SCH (21:01)
--- OUTSIDE RECORDS SUMMARY | 2023-01-22 22:47 | External Medical Summary | Summary of Care ---
Author Name Unknown Organization [facility] Address [address] [place] [address] Phone [phone] Care Team Providers Care Management Trainee Program Stores Name Role Phone Bj Mario DO Primary Care Provider [phone] Reason for Visit * Reason Comments Outpatient Testing Encounter Details Date Type Department Care Team Description 11/14/2022 Laboratory [facility] [address] [place] [id number] [place], [facility] [address] [place] [id number] Benign hypertension with CKD (chronic kidney disease) stage III ([facility]) Allergies Active Allergy Reactions Severity Noted Date Comments Escitalopram 04/27/2022 "Didn't feel right" documented as of this encounter (statuses as of 11/14/2022) Medications Medication Sig Dispensed Refills Start Date End Date Status ASPIRIN 81 MG PO CHEW One pill by mouth once a day with food 100 5 08/06/2008 Active VITAMIN D 1000 UNIT PO CAPSIndications:Carmel min D deficiency 1 capsule daily 30 Cap 11 10/13/2009 Active Acetaminophen 500 MG Oral Tablet Take 1 Tablet by mouth every 6 hours as needed for Pain. 0 Active Diclofenac Sodium (VOLTAREN) 1 % gelIndications:Cervi calgia Place 4 g topically on the skin 4 times a day. To affected area as directed. 100 g 5 09/03/2019 Active travoprost, MAYA Free, (TRAVATAN Z) 0.004 % ophthalmic solution instill 1 drop into both eyes every evening 2.5 mL 5 12/03/2019 Active Timolol Maleate 0.5 % Ophthalmic Solution (Timoptic) instill 1 drop into both eyes every morning 0 11/25/2020 Active Isosorbide Mononitrate ER 30 MG Oral Tablet Extended Release 24 Hour (Imdur)Indications:C hronic ischemic heart disease take 1 tablet by mouth once daily 100 Tablet 3 04/27/2022 Active Famotidine 20 MG Oral Tablet (Pepcid) Take 1 Tablet by mouth every night at bedtime. 90 Tablet 3 05/09/2022 Active Lisinopril 10 MG Oral Tablet (Prinivil)Indication s: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),Edema take 1 tablet by mouth once daily 90 Tablet 3 06/29/2022 Active Nitroglycerin 0.4 MG Sublingual Tablet Sublingual (Nitrostat)Indicatio ns:Chronic ischemic heart disease 1 every 5 min as needed with chest pain up to 3 doses in 15 minutes 25 Tablet 11 07/04/2022 Active Metoprolol Succinate ER 25 MG Oral Tablet Extended Release 24 Hour (toPROL XL)Indications:Chron ic ischemic heart disease take 1/2 tablet by mouth daily 45 Tablet 3 07/19/2022 Active Rosuvastatin Calcium 10 MG Oral Tablet (Crestor)Indications :Dyslipidemia, goal LDL below 70 Take 1 Tablet by mouth in the morning. 90 Tablet 1 08/29/2022 Active rOPINIRole HCl 0.25 MG Oral Tablet (Requip)Indications: Restless legs syndrome take 1 tablet by mouth at bedtime 90 Tablet 1 08/29/2022 Active Furosemide 20 MG Oral Tablet (Lasix)Indications:H TN, goal below 140/90 take 1 tablet by mouth once daily 90 Tablet 1 11/03/2022 Active traMADol HCl 50 MG Oral Tablet (Ultram)Indications: 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 neurogenic claudication,Cervica lgia Take 1 Tablet by mouth 2 times a day as needed for Pain, Severe. 60 Tablet 0 11/14/2022 Active Gabapentin 300 MG Oral Capsule (Neurontin)Indicatio ns: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 neurogenic claudication Take 1 Capsule by mouth in the morning and 1 Capsule in the evening. 60 Capsule 5 11/14/2022 Active documented as of this encounter (statuses as of 11/14/2022) Active Problems Problem Noted Date Benign hypertension with CKD (chronic ki dney disease) stage III 07/04/2022 Hyperparathyroidism, primary 05/09/2022 Chronic kidney disease, stage 3b 021 Overview: Per CKD protocol 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 09/29/2020 Overview: Per CKD protocol History of deep vein thrombosis (DVT) of lower extremity 09/08/2016 Status post insertion of drug eluting co ronary artery stent 04/07/2015 Overview: 2009, DUS placed in the mid RCA at [facility] Asymptomatic bilateral carotid artery st enosis 06/10/2014 Raynaud phenomenon 06/13/2011 Knee joint replacement status 01/13/2011 Overview: 2014, right Dr Ricardo [facility] 2011: left Dr Priya Ricardo [facility] Dyslipidemia, goal LDL below 70 09/21/19 11 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 neurogenic claudication 02/17/2010 Vitamin D deficiency 10/13/2009 Chronic ischemic heart disease 0 S/P angioplasty with stent 06/30/2009 Overview: 07/01/2009 DUS in the RCA at [facility] Non-toxic multinodular goiter 04/21/2009 Overview: seen on US, repeat -10/2009 HTN, goal below 140/90 05/25/2006 Advance directive on file 01/19/2005 Overview: No, Advance Directive brochure given to patient. Hip joint replacement status 01/19/2005 Overview: right 2000, left 1992 Menopause Macular degeneration Overview: Ugo Simon MD Glaucoma of both eyes Overview: Paul Simon MD, drops used bilateral Both cataracts also documented as of this encounter (statuses as of 11/14/2022) Resolved Problems Problem Noted Date Resolved Date Benign hypertension with CKD (chronic kidney disease) stage III 09/06/2017 10/01/2020 Overview: Per CKD protocol Prophylactic antibiotic 07/09/2015 06/02/19 18 Kidney disease, chronic, stage III (GFR 30-59 ml /min) 08/04/2014 10/12/2017 Overview: Per CKD protocol #1 Acute deep vein thrombosis of right lower extrem ity 03/05/2014 09/08/2016 Overview: Occurred after the right knee replacement Right leg DVT 03/05/2014 09/08/2016 Warfarin anticoagulation 03/05/2014 015 History of bilateral hip replacements 01/16/2013 06/02/2017 Primary open angle glaucoma 08/17/200905/22 Chest pain 06/23/2009 08/17/2009 SCREEN CANCER - COLON 02/06/2006 09/06/2017 Prophylactic antibiotic 01/19/2005 06/02/19 18 Need for prophylactic hormon e replacement therapy (postmenopausal) 06/13/2001 06/02/2017 ELEV BL PRES W-O HYPERTN 06/13/2001 007 documented as of this encounter (statuses as of 11/14/2022) Immunizations Name Administration Dates Next Due COVID-19 mRNA, LNP-s, No Pre serve, 2-Dose Series (Moderna) 07/30/2020,07/02/2020 Covid-19 Mrna, Lnp-s, No Pre serve, Booster (Moderna) 05/07/2021 Pneumococcal Conjugate Vacc, 13 Valent (Prevnar) 09/22/2014 Pneumococcal Polysaccharide PPV23 (Pneumovax) 03/12/2002 Seasonal Influenza, Quadriva lent Hd, 65+ Yrs 04/01/2022 Seasonal Influenza, Quadriva lent, No Preserve, 6 Mons & Above, IM 03/14/2018,03/23/2017 Seasonal Influenza, Quadriva lent, No Preserve, Adjuvanted, 65+ Yrs, IM 06/05/2020,04/08/2020 Seasonal Influenza, Quadriva lent, No Preserve, IM 04/11/2016,04/06/2015 Seasonal Influenza, Split, I IV3, With Preserve, Inj 03/10/2014,04/25/2013,03/20/2012,03/18,02/17/2010,02/04/2009,04/28/2008 ,03/30/2007,02/22/2007,03/01/2006,02/20,03/12/2002 Seasonal Influenza, Trivalen t, Adjuvanted, 65+ yrs 03/20/2019 TD, Preservative Free 04/21/2012,04/28/2008 TDAP (age 10 and older)(Boostrix) 08/28/2018 Varicella Zoster Vaccine (Adult) 06/11/2008 Zoster Vaccine Recombinant (Shingrix) 02/26/2020 ,11/18/2019 documented as of this encounter Social History Tobacco Use Types Packs/Day Years Used Date Smoking Tobacco: Never Smokeless Tobacco: Never Alcohol Use Standard Drinks/Week Comments Yes 0 (1 standard drink = 0.6 oz pur e alcohol) now and then Food Insecurity Answer Date Recorded Within the past 12 months, y ou worried that your food would run out before you got money to buy more. Never true 01/17/2022 Within the past 12 months, t he food you bought just didn't last and you didn't have money to get more. Never true 01/17/2022 Sex Assigned at Date Recorded Female 09/14/2018 8:42 AM E DT Job Start Date Occupation Industry Not on file Not on file Not on file documented as of this encounter Plan of Treatment Upcoming Encounters Date Type Specialty Care Team Description 01/18/2023 Nurse Only Ancillary Nurse [facility] [address] [place] [id number] 04/20/2023 Imaging Radiology 04/27/2023 Office Visit Cardiology Yvon Harris PA-C [address] [place] [id number] 06/16/2023 Office Visit Family Medicine Bj Mario DO [address] [place] [id number] Pending Results Name Type Priority Associated Diagnoses Date /Time BASIC METABOLIC PANEL Lab Routine 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) 11/14/2022 9:02 AM EDT ALBUMIN / CREATININE RATIO, URINE Lab Routine 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) 11/14/2022 9:07 AM EDT Health Maintenance Due Date Last Done Comments DXA Scan 10/30/2020 10/30/2013, 10/20, 08/24/2009, Additional history exists COVID-19 Vaccine (4 - Moderna series) 07/02/2021 05/07/2021, 07/30/2020, 07/02/2020 CKD PHOS USE SMARTSET [id number] 10/19/2022 05/05/2021, 11/18/2019, 07/15/2019, Additional history exists Albumin/Creatinine Ratio 01/17/2023 01/17/2022, 03/23 Depression Screening, Annual for Pts 12 and Over 01/17/2023 01/17/2022 CKD HGB USE SMARTSET [id number] 04/27/202304/27, 04/27/2022, 10/19/2021, Additional history exists DTaP,Tdap,and Td Vaccines (2 - Td or Tdap) 08/28/2028 08/28/2018, 04/21/2012, 04/28/2008 Pneumococcal Vaccine: 65+ Years Completed 09/22/2014, 03/12/2002 Zoster Vaccines Completed 02/26/2020, 10/21, 06/11/2008 Influenza Vaccine (FLU shot) Completed 03/2022, 06/05/2020, 04/08/2020, Additional history exists GARDASIL-HPV IMMUNIZATION SERIES Aged Out No longer eligible based on patient's age to complete this topic Hepatitis B Aged Out No longer eligi ble based on patient's age to complete this topic MENINGOCOCCAL (MENACTRA/MENVEO) Aged Out No longer eligible based on patient's age to complete this topic documented as of this encounter Medical Devices Not on filedocumented as of this encounter Visit Diagnoses Diagnosis 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 I through stage IV, or unspecified documented in this encounter Care Teams Management Trainee Program Stores Relationship Specialty Start Date End Date Bj Mario DO [address] [place] [address] PCP - General Family Medicine 11/28/16 documented as of this encounter
--- OUTSIDE RECORDS SUMMARY | 2023-01-22 22:47 | External Medical Summary | Summary of Care ---
Author Name Unknown Organization [facility] Address [address] [facility] [address] Phone [phone] Care Team Providers Care Template Fitter Name Role Phone Nhi Florian DO Primary Care Provider [phone] Reason for Visit * Reason Comments eRx-Medication Refill Encounter Details Date Type Department Care Team Description 08/27/2022 Refill Family Practice [facility] [place] [address] [place] [address] Nhi Florian DO [address] [place] [address] Dyslipidemia, goal LDL below 70; Restless legs syndrome Allergies Active Allergy Reactions Severity Noted Date Comments Escitalopram 04/27/2022 "Didn't feel right" documented as of this encounter (statuses as of 11/08/2022) Medications Medication Sig Dispensed Refills Start Date End Date Status ASPIRIN 81 MG PO CHEW One pill by mouth once a day with food 100 5 9 Active VITAMIN D 1000 UNIT PO CAPSIndications:Vi tamin D deficiency 1 capsule daily 30 Cap 11 0 Active Acetaminophen 500 MG Oral Tablet Take 1 Tablet by mouth every 6 hours as needed for Pain. 0 Active Diclofenac Sodium (VOLTAREN) 1 % gelIndications:Cer vicalgia Place 4 g topically on the skin 4 times a day. To affected area as directed. 100 g 5 0 Active travoprost, MAYA Free, (TRAVATAN Z) 0.004 % ophthalmic solution instill 1 drop into both eyes every evening 2.5 mL 5 0 Active Timolol Maleate 0.5 % Ophthalmic Solution (Timoptic) instill 1 drop into both eyes every morning 0 1 Active Isosorbide Mononitrate ER 30 MG Oral Tablet Extended Release 24 Hour (Imdur)Indications :Chronic ischemic heart disease take 1 tablet by mouth once daily 100 Tablet 3 2 Active traMADol HCl 50 MG Oral Tablet (Ultram)Indication s: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 neurogenic claudication,Cervi calgia Take 1 Tablet by mouth daily as needed for Pain, Severe. 30 Tablet 0 2 Active Famotidine 20 MG Oral Tablet (Pepcid) Take 1 Tablet by mouth every night at bedtime. 90 Tablet 3 2 Active Lisinopril 10 MG Oral Tablet (Prinivil)Indicati ons: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),Edema take 1 tablet by mouth once daily 90 Tablet 3 3 Active Nitroglycerin 0.4 MG Sublingual Tablet Sublingual (Nitrostat)Indicat ions:Chronic ischemic heart disease 1 every 5 min as needed with chest pain up to 3 doses in 15 minutes 25 Tablet 11 3 Active Additional Information Patient not taking.Reported on 07/26/2022 Metoprolol Succinate ER 25 MG Oral Tablet Extended Release 24 Hour (toPROL XL)Indications:Chr onic ischemic heart disease take 1/2 tablet by mouth daily 45 Tablet 3 3 Active Gabapentin 100 MG Oral Capsule (Neurontin)Indicat ions:Spinal stenosis of lumbar region with radiculopathy Take 2 Capsules by mouth in the morning and 2 Capsules in the evening. 120 Capsule 5 3 Active Rosuvastatin Calcium 10 MG Oral Tablet (Crestor)Indicatio ns:Dyslipidemia, goal LDL below 70 Take 1 Tablet by mouth in the morning. 90 Tablet 1 3 Active rOPINIRole HCl 0.25 MG Oral Tablet (Requip)Indication s:Restless legs syndrome take 1 tablet by mouth at bedtime 90 Tablet 1 3 Active rOPINIRole HCl 0.25 MG Oral Tablet (Requip)Indication s:Restless legs syndrome take 1 tablet by mouth at bedtime 90 Tablet 1 2 08/30/19 23 Discontinued Rosuvastatin Calcium 20 MG Oral Tablet (Crestor)Indicatio ns:Dyslipidemia, goal LDL below 70 take 1 tablet by mouth once daily 90 Tablet 1 2 08/30/19 23 Discontinued Furosemide 20 MG Oral Tablet (Lasix)Indications :HTN, goal below 140/90 take 1 tablet by mouth once daily 90 Tablet 1 2 11/04/19 23 Discontinued documented as of this encounter (statuses as of 11/08/2022) Active Problems Problem Noted Date Benign hypertension [...] placed in the mid RCA at [facility] Asymptomatic bilateral carotid artery st enosis 06/10/2014 Raynaud phenomenon 06/13/2011 Knee joint replacement status 01/13/2011 Overview: 2014, right Dr Ricardo [facility] 2011: left Dr Priya Ricardo [facility] Dyslipidemia, goal LDL below 70 09/21/19 11 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 neurogenic claudication 02/17/2010 Vitamin D deficiency 10/13/2009 Chronic ischemic heart disease 0 S/P angioplasty with stent 06/30/2009 Overview: 07/01/2009 DUS in the RCA at [facility] Non-toxic multinodular goiter 04/21/2009 Overview: seen on [...] as of this encounter (statuses as of 11/08/2022) Resolved Problems Problem Noted Date Resolved Date [...] as of this encounter (statuses as of 11/08/2022) Immunizations Name Administration Dates Next Due COVID-19 [...] on file documented as of this encounter Miscellaneous Notes * Telephone Encounter - TODD Vicente - 08/31/2022 9:26 AM EDT Pt calling back and I gave her the message Thank you for your assistance [facility]i [facility] [employer] [facility] 08/31/2022,9:26 AM * Telephone Encounter - Austin Cleveland [facility] - 08/30/2022 2:16 PM EDT Called patient to update but had to leave . Also, labs reordered to be tested. Thanks, Austin Cleveland, PharmD Clinical Pharmacist [facility] [phone] 08/30/2022, 2:16 PM * Telephone Encounter - Nhi Florian DO - 08/29/2022 3:41 PM EDTSigned Prescriptions: Disp Refills Rosuvastatin Calcium 10 MG Oral Tablet (Cr*90 Tab*1 Sig: Take 1 Tablet by mouth in the morning. Authorizing Provider: NHI FLORIAN rOPINIRole HCl 0.25 MG Oral Tablet (Requip)90 Tab*1 Sig: take 1 tablet by mouth at bedtime Authorizing Provider: NHI FLORIAN * Telephone Encounter - Austin Cleveland [facility] - 08/29/2022 2:42 PM EDT Pending Prescriptions: Disp Refills Rosuvastatin Calcium 10 MG Oral Tablet (Cr*90 Tab*1 Sig: Take 1 Tablet by mouth in the morning. rOPINIRole HCl 0.25 MG Oral Tablet (Requip)90 Tab*1 Sig: take 1 tablet by mouth at bedtime * Telephone Encounter - Austin Cleveland [facility] - 08/29/2022 2:39 PM EDT Serum creatinine: 1.4 mg/dL (H) 04/27/22 1004 Estimated creatinine clearance: 28.9 mL/min (A) Altered kidney function: CrCl ?30 mL/minute/1.73 m2: No dosage adjustment necessary. CrCl <30 mL/minute/1.73 m2: 5 to 10 mg once daily. Due to patients altered kidney function dose recommendation to lower to 10 mg daily. Lipid Panel Results: Results for orders placed or performed in visit on 04/27/22 LIPID PANEL WITH DIRECT LDL IF TG IS HIGH Result Value Ref Range Triglycerides 122 <=174 mg/dL Cholesterol 142 <200 mg/dL HDL Cholesterol 55 >49 mg/dL Non-HDL Cholesterol 87 <=159 mg/dL LDL Cholesterol 63 <=129 mg/dL Please approve if agreeable. Thanks, Austin Cleveland, PharmD Clinical Pharmacist [facility] [phone] 08/29/2022, 2:42 PM documented in this encounter Plan of Treatment Upcoming Encounters Date Type Specialty Care Team Description 11/14/2022 Office Visit Family Medicine Nhi Florian, [address] [place] [address] 01/18/2023 Nurse Only Ancillary Pauline, Nurse Annual Wellness Scenery [address] [place] [address] 04/20/2023 Imaging Radiology 04/27/2023 Office Visit Cardiology Yvon Harris PA-C [address] [place] [address] Health Maintenance Due Date Last Done Comments DXA Scan 10/30/2020 10/30/2013, 10/20, 08/24/2009, Additional history exists COVID-19 Vaccine (4 - Moderna series) 07/02/2021 05/07/2021, 07/30/2020, 07/02/2020 CKD PHOS USE SMARTSET [id number] 10/19/2022 05/05/2021, 11/18/2019, 07/15/2019, Additional history exists Albumin/Creatinine Ratio 01/17/2023 01/17/2022, 03/23 Depression Screening, Annual for Pts 12 and Over 01/17/2023 01/17/2022 CKD HGB USE SMARTSET 47075 04/27/202304/27, 04/27/2022, 10/19/2021, Additional history exists DTaP,Tdap,and [...] as of this encounter Visit Diagnoses Diagnosis Dyslipidemia, goal LDL below 70 Other and unspecified hyperlipidemia Restless legs syndrome Restless legs syndrome (RLS) documented in this encounter Care Teams Template Fitter Relationship Specialty Start Date End Date Nhi Florian, DO [address] [facility] [address] [place] [address] PCP - General Family Medicine 11/28/16 documented as of this encounter
--- OUTSIDE RECORDS SUMMARY | 2023-01-22 22:47 | External Medical Summary | Summary of Care ---
Author Name Unknown Organization [facility] Address [address] [facility] [address] Phone [phone] Care Team Providers Care Judge Name Role Phone Bj Mario DO Primary Care Provider [phone] Reason for Referral * Evaluate & Treat - Unlimited Visits (Within 30 days (routine)) - Pending Review Specialty Diagnoses / Procedures Referred By Contac t Referred To Contact Physical Therapy / Physical Medicine And Rehab Diagnoses 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 neurogenic claudication Hip pain, left Bj Mario DO [address] [place] [address] Referral ID Status Reason Start Date Expiration Date Visits Requested Visits Authorized [id number] Pending Review Specialty Services Required 11/14/[phone] Question Answer Referral Priority Within 30 days (routine) * Medication Prior Authorization - Pending Review Specialty Diagnoses / Procedures Referred By Contac t Referred To Contact Diagnoses 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 neurogenic claudication Bj Mario DO [address] [place] [address] Referral ID Status Reason Start Date Expiration Date V isits Requested Visits Authorized [id number] Pending Review [phone] Reason for Visit * Reason Comments Re-Check Encounter Details Date Type Department Care Team Description 11/14/2022 Office Visit Family Practice [facility] Roger [address] [place] [address] Bj Mario DO [address] [place] [address] 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)*; 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 neurogenic claudication; Cervicalgia; Hip pain, left; Dyslipidemia, goal LDL below 70; Asymptomatic bilateral carotid artery stenosis; 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 90 Tablet 1 3 Active rOPINIRole HCl 0.25 MG Oral Tablet (Requip)Indication s:Restless legs syndrome take 1 tablet by mouth at bedtime 90 Tablet 1 3 Active Furosemide 20 MG Oral Tablet (Lasix)Indications :HTN, goal below 140/90 take 1 tablet by mouth once daily 90 Tablet 1 3 Active traMADol HCl 50 MG Oral Tablet (Ultram)Indication s: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 neurogenic claudication,Cervi calgia Take 1 Tablet by mouth 2 times a day as needed for Pain, Severe. 60 Tablet 0 3 Active Gabapentin 300 MG Oral Capsule (Neurontin)Indicat ions: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 neurogenic claudication Take 1 Capsule by mouth in the morning and 1 Capsule in the evening. 60 Capsule 5 3 Active traMADol HCl 50 MG Oral Tablet (Ultram)Indication s: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 neurogenic claudication,Cervi calgia Take 1 Tablet by mouth daily as needed for Pain, Severe. 30 Tablet 0 2 11/15/19 23 Discontinued(Ref ill) Gabapentin 100 MG Oral Capsule (Neurontin)Indicat ions:Spinal stenosis of lumbar region with radiculopathy Take 2 Capsules by mouth in the morning and 2 Capsules in the evening. 120 Capsule 5 3 11/15/19 23 Discontinued documented as of this encounter [...] DUS placed in the mid RCA at [facility] Asymptomatic bilateral carotid artery st enosis 06/10/2014 Raynaud phenomenon 06/13/2011 Knee joint replacement status 01/13/2011 Overview: 2014, right Dr Ricardo [facility] 2011: left Dr Priya Ricardo [facility] Dyslipidemia, goal LDL below 70 09/21/19 11 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 neurogenic claudication 02/17/2010 Vitamin D deficiency 10/13/2009 Chronic ischemic heart disease 0 S/P angioplasty with stent 06/30/2009 Overview: 07/01/2009 DUS in the RCA at [facility] Non-toxic multinodular goiter 04/21/2009 Overview: seen on [...] COLON 02/06/2006 09/06/2017 Prophylactic antibiotic 01/19/2005 06/02/19 Need for prophylactic hormon e replacement therapy (postmenopausal) 06/13/2001 06/02/2017 ELEV BL PRES W-O HYPERTN 06/13/2001 007 documented as of this encounter (statuses as of 11/14/2022) Immunizations Name Administration Dates Next Due COVID-19 mRNA, LNP-s, No Pre serve, 2-Dose Series (Moderna) 07/30/2020,07/02/2020 Covid-19 Mrna, Lnp-s, No Pre serve, Booster (Moderna) 05/07/2021 Pneumococcal Conjugate Vacc, 13 Valent (Prevnar) 09/22/2014 Seasonal Influenza, Quadriva lent Hd, 65+ Yrs 04/01/2022 Seasonal Influenza, Quadriva lent, No Preserve, 6 Mons & Above, IM 03/14/2018,03/23/2017 Seasonal Influenza, Quadriva lent, No Preserve, Adjuvanted, 65+ Yrs, IM 06/05/2020,04/08/2020 Seasonal Influenza, Quadriva lent, No Preserve, IM 04/11/2016,04/06/2015 Seasonal Influenza, Split, I IV3, With Preserve, Inj 03/10/2014,04/25/2013,03/20/2012,2010,02/17/2010,02/04/2009,04/28/2008,1 05/30/2006,02/22/2007,03/01/2006 Seasonal Influenza, Trivalen t, Adjuvanted, 65+ yrs [...] on file documented as of this encounter Last Filed Vital Signs Vital Sign Reading Time Taken Comments Blood Pressure 122/62 11/14/2022 8:11 AM EDT Pulse 60 11/14/2022 8:11 AM EDT Temperature 36.3 C (97.4 F) 11/14/2022 8:11 AM ED T Respiratory Rate 18 11/14/2022 8:11 AM EDT Oxygen Saturation 98% 11/14/2022 8:11 AM EDT Inhaled Oxygen Concentration - - Weight 87.5 kg (192 lb 12.8 oz) 11/14/2022 8:11 AM EDT Height - - Body Mass Index 34.7 07/04/2022 3:38 PM EST documented in this encounter Progress Notes * Bj Mario DO - 11/14/2022 8:34 AM EDT Subjective: Eugenia Hu is a 87 year old female. Chief Complaint Patient presents with Re-Check HPI: Pt here in follow-up. Shot in her back helped for about a month and a half. Cymbalta made her feel poor. Increase in gabapentin helped. Rarely uses Tramadol. Mostly uses it is going to a ball game or being active. Trying to stay active, goes to ball games, out to dinner, out to a casino. BP looks good today. Kidneys discussed, would benefit from more water. Eugenia does not want a DEXA scan because she would not want treatment if she had OP. 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 HTN, goal below 140/90 I10 Non-toxic multinodular goiter E04.2 Chronic ischemic heart disease I25.9 Vitamin D deficiency E55.9 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 neurogenic claudication M48.061 S/P angioplasty with stent Z95.820 Dyslipidemia, goal LDL below 70 E78.5 Knee joint replacement status Z96.659 Raynaud phenomenon I73.00 Asymptomatic bilateral carotid artery stenosis I65.23 Status post insertion of drug eluting coronary artery stent Z95.5 History of deep vein thrombosis (DVT) of lower extremity Z86.718 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 Diclofenac Sodium (VOLTAREN) 1 % gel Place 4 g topically on the skin 4 times a day. To affectedarea as directed. 100 g 5 travoprost, MAYA Free, (TRAVATAN Z) 0.004 % ophthalmic solution instill 1 drop into both eyes every evening 2.5 mL 5 Timolol Maleate 0.5 % Ophthalmic Solution (Timoptic) instill 1 drop into both eyes every morning Isosorbide Mononitrate ER 30 MG Oral Tablet Extended Release 24 Hour (Imdur) take 1 tablet by mouth once daily 100 Tablet 3 traMADol HCl 50 MG Oral Tablet (Ultram) Take 1 Tablet by mouth daily as needed for Pain, Severe. 30 Tablet 0 Famotidine 20 MG Oral Tablet (Pepcid) Take 1 Tablet by mouth every night at bedtime. 90 Tablet 3 Lisinopril 10 MG Oral Tablet (Prinivil) take 1 tablet by mouth once daily 90 Tablet 3 Nitroglycerin 0.4 MG Sublingual Tablet Sublingual (Nitrostat) 1 every 5 min as needed with chest pain up to 3 doses in 15 minutes 25 Tablet 11 Metoprolol Succinate ER 25 MG Oral Tablet Extended Release 24 Hour (toPROL XL) take 1/2 tablet by mouth daily 45 Tablet 3 Gabapentin 100 MG Oral Capsule (Neurontin) Take 2 Capsules by mouth in the morning and 2 Capsules in the evening. 120 Capsule 5 Rosuvastatin Calcium 10 MG Oral Tablet (Crestor) Take 1 Tablet by mouth in the morning. 90 Tablet 1 rOPINIRole HCl 0.25 MG Oral Tablet (Requip) take 1 tablet by mouth at bedtime 90 Tablet 1 Furosemide 20 MG Oral Tablet (Lasix) take 1 tablet by mouth once daily 90 Tablet 1 No current facility-administered medications for this visit. Review of patient's allergies indicates: Allergen Reactions Lexapro [Escitalopram] "Didn't feel right" OBJECTIVE: BP 122/62 | Pulse 60 | Temp 36.3 C (97.4 F) (Tympanic) | Resp 18 | Wt 87.5 kg (192 lb 12.8 oz) | SpO2 98% | BMI 34.70 kg/m | BSA 1.96 m Estimated body mass index is 34.7 kg/m as calculated from the following: Height as of 07/04/22: 1.588 m (5' 2.5"). Weight as of this encounter: 87.5 kg (192 lb 12.8 oz). BP Readings from Last 3 Encounters: 11/14/22 122/62 10/26/22 128/78 07/26/22 129/84 Wt Readings from Last 3 Encounters: 11/14/22 87.5 kg (192 lb 12.8 oz) 10/26/22 85.7 kg (189 lb) 07/04/22 84.5 kg (186 lb 3.2 oz) ROS: Negative except for above PHYSICAL EXAM: General: alert, healthy and no distress Head: Normocephalic, No masses, lesions, tenderness or abnormalities Heart: regular rate & rhythm, no murmur and no gallops Lungs: chest symmetric with normal AP diameter, no chest deformities noted, no chest wall tenderness, lungs clear to auscultation Extremities: less than 2 second capillary refill, no joint deformities, effusion, or inflammation, and trace edema B/L ASSESSMENT/Plan 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) (Primary) - ALBUMIN / CREATININE RATIO, URINE; Future; Expected date: 11/14/2022 - PHOSPHORUS - BASIC METABOLIC PANEL; Future; Expected date: 11/14/2022 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 neurogenic claudication - traMADol HCl 50 MG Oral Tablet (Ultram); Take 1 Tablet by mouth 2 times a day as needed for Pain,Severe. - Gabapentin 300 MG Oral Capsule (Neurontin); Take 1 Capsule by mouth in the morning and 1 Capsule in the evening. - PHYSICAL THERAPY REFERRAL OP Cervicalgia - traMADol HCl 50 MG Oral Tablet (Ultram); Take 1 Tablet by mouth 2 times a day as needed for Pain,Severe. 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 Staying as active as possible. Increase gabapentin. Use tramadol as needed. Try PT at [facility]. The above was discussed and understanding was expressed. Bj Mario DO documented in this encounter Nursing Notes * Fabiola Lopez LPN - 11/14/2022 8:07 AM EDT Eugenia Keen Fritz presents for 6 month recheck. Medications & HM reviewed. documented in this encounter Plan of Treatment Upcoming Encounters Date Type Specialty Care Team Description 11/14/2022 Laboratory Laboratory [place], Lab Scenery [address] [facility] [place] [address] 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) 01/18/2023 Nurse Only Ancillary Pauline, Nurse Annual Wellness Scenery [address] [place] [address] 04/20/2023 Imaging Radiology 04/27/2023 Office Visit Cardiology Yvon Harris PA-C [address] [place] [address] 06/16/2023 Office Visit Family Medicine Bj Mario, DO [address] [facility] [address] Pending Results Name Type Priority Associated Diagnoses Date /Time ALBUMIN / CREATININE RATIO, URINE Lab Routine 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) 11/14/2022 9:07 AM EDT PHOSPHORUS Lab Routine 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) 11/14/2022 9:02 AM EDT BASIC METABOLIC PANEL Lab Routine 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) 11/14/2022 9:02 AM EDT Scheduled Orders Name Type Priority Associated Diagnoses Orde r Schedule ALBUMIN / CREATININE RATIO, URINE Lab Routine 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) Expected: 11/14/2022 (Approximate), Expires: 11/15/2023 BASIC METABOLIC PANEL Lab Routine 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) Expected: 11/14/2022 (Approximate), Expires: 11/14/2023 Scheduled Referrals Name Type Priority Associated Diagnoses Orde r Schedule PHYSICAL THERAPY REFERRAL OP Referral Within 30 days (routine) 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 neurogenic claudication Hip pain, left Ordered: 11/14/2022 Health Maintenance Due Date Last Done Comments DXA Scan 10/30/2020 10/30/2013, 10/20, 08/24/2009, Additional history exists COVID-19 Vaccine (4 - Moderna series) 07/02/2021 05/07/2021, 07/30/2020, 07/02/2020 CKD PHOS USE SMARTSET [id number] 10/19/2022 05/05/2021, 11/18/2019, 07/15/2019, Additional history exists Albumin/Creatinine Ratio 01/17/2023 01/17/2022, 03/23 Depression Screening, Annual for Pts 12 and Over 01/17/2023 01/17/2022 CKD HGB USE SMARTSET [id number] 04/27/202304/27, 04/27/2022, 10/19/2021, Additional history exists DTaP,Tdap,and [...] with CKD (chronic kidney disease) stage III (HCC)- Primary Benign hypertensive kidney disease with chronic kidney disease stage I through stage IV, or unspecified 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 neurogenic claudication Spinal stenosis, lumbar region, without neurogenic claudication Cervicalgia Hip pain, left Pain in joint, pelvic region and thigh Dyslipidemia, goal LDL below 70 Other and unspecified hyperlipidemia Asymptomatic bilateral carotid artery stenosis Occlusion and stenosis of multiple and bilateral precerebral arteries without mention of cerebral infarction 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
--- OUTSIDE RECORDS SUMMARY | 2023-01-22 22:47 | External Medical Summary | Summary of Care ---
Author Name Unknown Organization [facility] Address [address] [place] [facility] [place] [address] Phone [phone] Care Team Providers Care General Partner Name Role Phone Nhi Florian DO Primary Care Provider [phone] Reason for Visit * Reason Comments eRx-Medication Refill Encounter Details Date Type Department Care Team Description 11/02/2022 Refill Family Practice [facility] [place] [address] [place] [address] Nhi Florian DO [address] [place] [address] HTN, goal below 140/90 Allergies Active Allergy Reactions Severity Noted Date Comments Escitalopram 04/27/2022 "Didn't feel right" documented as of this encounter (statuses as of 11/03/2022) Medications Medication Sig Dispensed Refills Start Date [...] once daily 90 Tablet 1 3 Active Furosemide 20 MG Oral Tablet (Lasix)Indications :HTN, goal below 140/90 take 1 tablet by mouth once daily 90 Tablet 1 2 11/04/19 23 Discontinued documented as of this encounter (statuses as of 11/03/2022) Active Problems Problem Noted Date Benign hypertension [...] DUS placed in the mid RCA at [facility] Asymptomatic bilateral carotid artery st enosis 06/10/2014 Raynaud phenomenon 06/13/2011 Knee joint replacement status 01/13/2011 Overview: 2014, right Dr Ricardo [facility] 2011: left Dr Priya Ricardo [facility] Dyslipidemia, goal LDL below 70 09/21/19 11 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 neurogenic claudication 02/17/2010 Vitamin D deficiency 10/13/2009 Chronic ischemic heart disease 0 S/P angioplasty with stent 06/30/2009 Overview: 07/01/2009 DUS in the RCA at [facility] Non-toxic multinodular goiter 04/21/2009 Overview: seen on [...] as of this encounter (statuses as of 11/03/2022) Resolved Problems Problem Noted Date Resolved Date [...] as of this encounter (statuses as of 11/03/2022) Immunizations Name Administration Dates Next Due COVID-19 [...] encounter Miscellaneous Notes * Telephone Encounter - Carolyn Chou RPh - 11/03/2022 10:24 AM EDTSigned Prescriptions: Disp Refills Furosemide 20 MG Oral Tablet (Lasix) 90 Tab*1 Sig: take 1 tabletby mouth once dailyAuthorizing Provider: NHI FLORIAN User: CAROLYN CHOU------ documented in this encounter Plan of Treatment Upcoming Encounters Date Type Specialty Care Team Description 11/14/2022 Office Visit Family Medicine Nhi Florian DO [address] [place] [address] 01/18/2023 Nurse Only Ancillary Nurse [place] [facility] [address] [place] [address] 04/20/2023 Imaging Radiology 04/27/2023 Office Visit Cardiology Yvon Harris PA-C [address] [place] [address] Health Maintenance Due Date Last Done Comments DXA Scan 10/30/2020 10/30/2013, 10/20, 08/24/2009, Additional history exists COVID-19 Vaccine (4 - Moderna series) 07/02/2021 05/07/2021, 07/30/2020, 07/02/2020 CKD PHOS USE SMARTSET 66515 10/19/202209/21, 11/18/2019, 07/15/2019, Additional history exists Albumin/Creatinine Ratio 01/17/2023 01/17/2022, 03/23 Depression Screening, Annual for Pts 12 and Over 01/17/2023 01/17/2022 CKD HGB USE SMARTSET 22667 04/27/202304/27, 04/27/2022, 10/19/2021, Additional history exists DTaP,Tdap,and [...] as of this encounter Visit Diagnoses Diagnosis HTN, goal below 140/90 Unspecified essential hypertension documented in this encounter Care Teams General Partner Relationship Specialty Start Date End Date Nhi Florian, DO [address] [place] [address] PCP - General Family Medicine 11/28/16 documented as of this encounter
--- OUTSIDE RECORDS SUMMARY | 2023-01-22 22:47 | External Medical Summary | Summary of Care ---
Author Name Unknown Organization [facility] Address [address] [facility] [address] Phone [phone] Care Team Providers Care Conductor Sleeping Car Name Role Phone Nhi Mario DO Primary Care Provider [phone] Reason for Referral * Evaluate & Treat - Unlimited Visits (Within 30 days (routine)) - Pending Review Specialty Diagnoses / Procedures Referred By Love gamboa Referred To Contact Neuro/Ortho Surgery - Spine. / Neurological Surgery Diagnoses 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 neurogenic claudication Nhi Mario DO [address] [place] [address] Referral ID Status Reason Start Date Expiration Date Visits Requested Visits Authorized [id number] Pending Review Specialty Services Required 01/09/[phone] Question Answer Referral Priority Within 30 days (routine) Select spine region: Back - Thoracic/Lumbar Do you have any recent complete loss of bladder or bowel function? No Encounter Details Date Type Department Care Team Description 01/06/2023 Telephone Family Practice [facility] [address] [place] [address] Nhi Mario DO [address] [place] [address] Allergies Active Allergy Reactions Severity Noted Date Comments Escitalopram 04/27/2022 "Didn't feel right" documented as of this encounter (statuses as of 01/09/2023) Medications Medication Sig Dispensed Refills Start Date [...] mouth in the morning and 1 Capsule at noon and 1 Capsule before bedtime. 90 Capsule 5 01/02/2023 Active HYDROcodone-Acetamin ophen 5-325 MG Oral TabletIndications:Sp inal stenosis of lumbar region without neurogenic claudication Take 1 Tablet by mouth 2 times a day as needed for Pain, Severe. 60 Tablet 0 01/02/2023 Active documented as of this encounter (statuses as of 01/09/2023) Active Problems Problem Noted Date Benign hypertension [...] DUS placed in the mid RCA at [facility] Asymptomatic bilateral carotid artery st enosis 06/10/2014 Raynaud phenomenon 06/13/2011 Knee joint replacement status 01/13/2011 Overview: 2014, right Dr Ricardo [facility] 2011: left Dr Priya Ricardo [facility] Dyslipidemia, goal LDL below 70 09/21/19 11 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 neurogenic claudication 02/17/2010 Vitamin D deficiency 10/13/2009 Chronic ischemic heart disease 0 S/P angioplasty with stent 06/30/2009 Overview: 07/01/2009 DUS in the RCA at [facility] Non-toxic multinodular goiter 04/21/2009 Overview: seen on [...] as of this encounter (statuses as of 01/09/2023) Resolved Problems Problem Noted Date Resolved Date [...] as of this encounter (statuses as of 01/09/2023) Immunizations Name Administration Dates Next Due COVID-19 mRNA, LNP-s, No Pre serve, 2-Dose Series (Moderna) 07/30/2020,07/02/2020 Covid-19 Mrna, Lnp-s, No Pre serve, Booster (Moderna) 05/07/2021 Pneumococcal Conjugate Vacc, 13 Valent (Prevnar) 09/22/2014 Pneumococcal Polysaccharide PPV23 (Pneumovax) 03/12/2002 Season Influenza, Quad, PF, Adjuvanted, 65+ Yrs, IM (FLUAD) 06/05/2020,04/08/2020 Seasonal Influenza, PF, 6 mo ns & Above, IM , (Flulaval) 03/14/2018,03/23/2017 Seasonal Influenza, Quadriva lent Hd, 65+ Yrs 04/01/2022 Seasonal Influenza, Quadriva lent, No Preserve, IM [...] encounter Miscellaneous Notes * Telephone Encounter - ALESHA Kearney - 01/09/2023 12:04 PM EDT Printed and faxed 01/09 * Addendum Note - Nhi Mario DO - 01/09/2023 11:28 AM EDTAddended by: NHI MARIO on: 01/09/2023 11:28 AM Modules accepted: Orders * Telephone Encounter - Nhi Mario DO - 01/09/2023 11:27 AM EDT Please help set up referral to Dr. Thacker at [facility] * Telephone Encounter - ALESHA Kearney - 01/06/2023 12:06 PM EDT Called pt and she stated that it is for her back, shooting pain in back, back crouch, can hardly walk * Telephone Encounter - Mary Jo Gooden DO - 01/06/2023 11:54 AM EDT General surgery? Or what specific kind of referral needed? Ortho / neurosurgery? And what is the problem you are seeing them for? * Telephone Encounter - ALESHA Kearney - 01/06/2023 11:28 AM EDT Please advise there is no referral in for pt so that I can send this to sammi * Telephone Encounter - ALESHA Colin - 01/06/2023 9:28 AM EDT Patient is calling, she states her and Dr Mario discussed a surgeon. He had mentioned about going to [place]. She has decided she would like to talk with a surgeon about options. She wants to be seen by Dr Thacker in [place]. She would like to start the process. She is open to whenever she can bescheduled Please call her back to help schedule documented in this encounter Plan of Treatment Upcoming Encounters Date Type Specialty Care Team Description 01/18/2023 Nurse Only Ancillary Pauline, Nurse Annual [facility] [address] [place] [address] 04/20/2023 Imaging Radiology 04/27/2023 Office Visit Cardiology Yvon Harris PA-C [address] [place] [address] 06/16/2023 Office Visit Family Medicine Nhi Mario, [address] [place] [address] Scheduled Referrals Name Type Priority Associated Diagnoses Orde r Schedule SPINE SURGERY REFERRAL OP Referral Within 30 days (routine) 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 neurogenic claudication Ordered: 01/09/2023 Health Maintenance Due Date Last Done Comments DXA Scan 10/30/2020 10/30/2013, 10/20, 08/24/2009, Additional history exists COVID-19 Vaccine (4 - Moderna series) 07/02/2021 05/07/2021, 07/30/2020, 07/02/2020 Depression Screening, Annual for Pts 12 and Over 01/17/2023 01/17/2022 Influenza Vaccine (FLU shot) (#1) 2023 04/01/2022, 06/05/2020, 04/08/2020, Additional history exists CKD HGB USE SMARTSET 25479 04/27/202304/27, 04/27/2022, 10/19/2021, Additional history exists Albumin/Creatinine Ratio 11/15/2023 023, 01/17/2022, 04/11/2016 CKD PHOS USE SMARTSET 79181 11/15/202310/21, 10/19/2021, 11/18/2019, Additional history exists DTaP,Tdap,and Td Vaccines (2 - Td or Tdap) 08/28/2028 08/28/2018, 04/21/2012, 04/28/2008 Pneumococcal Vaccine: 65+ Years Completed 09/22/2014, 03/12/2002 Zoster Vaccines Completed 02/26/2020, 10/21, 06/11/2008 GARDASIL-HPV IMMUNIZATION SERIES Aged Out No longer [...] as of this encounter Visit Diagnoses Diagnosis 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 neurogenic claudication- Primary Spinal stenosis, lumbar region, without neurogenic claudication documented in this encounter Care Teams Conductor Sleeping Car Relationship Specialty Start Date End Date Nhi Mario, DO [address] [place] [address] PCP - General Family Medicine 11/28/16 documented as of this encounter
--- OUTSIDE RECORDS SUMMARY | 2023-01-22 22:47 | External Medical Summary ---
Author Name Unknown Address Unknown Organization K09:[facility] [place] [address] Laboratory Report Ordering Provider Test Date Status NHIANIVAL 11/14/2022 09:02:06 Final Observation Date Value Abnormality Reference (Units ) Status BUN 11/14/2022 09:02:06 24 Above high normal 6-20 (mg/dL) Final Creatinine 11/14/2022 09:02:06 1.5 Above high normal 0.5-1.0 (mg/dL) Final Glomerular filtration rate/1.73 sq M.predicted [Volume Rate/Area] in Serum, Plasma or Blood by Creatinine-based formula (CKD-EPI) 11/14/2022 09:02:06 34 Below low normal >=60 (mL/min) Final Performing Location [facility] [address] [place] [address]
--- OUTSIDE RECORDS SUMMARY | 2023-01-22 22:47 | External Medical Summary | Summary of Care ---
Author Name Unknown Organization [facility] Address [address] [place] [address] Phone [phone] Care Team Providers Care Pre Sales Architect Name Role Phone Bj Mario DO Primary Care Provider [phone] Reason for Visit * Reason Onset Date Comments Advice 11/29/2022 Encounter Details Date Type Department Care Team Description 11/29/2022 Telephone Family Practice [facility] [address] [place] [address] Bj Mario DO [address] [facility] [place] [address] Advice Allergies Active Allergy Reactions Severity Noted Date Comments Escitalopram 04/27/2022 "Didn't feel right" documented as of this encounter (statuses as of 12/01/2022) Medications Medication Sig Dispensed Refills Start Date [...] as of this encounter (statuses as of 12/01/2022) Active Problems Problem Noted Date Benign hypertension [...] DUS placed in the mid RCA at [facility] Asymptomatic bilateral carotid artery st enosis 06/10/2014 Raynaud phenomenon 06/13/2011 Knee joint replacement status 01/13/2011 Overview: 2014, right Dr Ricardo [facility] 2011: left Dr Priya Ricardo [facility] Dyslipidemia, goal LDL below 70 09/21/19 11 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 neurogenic claudication 02/17/2010 Vitamin D deficiency 10/13/2009 Chronic ischemic heart disease 0 S/P angioplasty with stent 06/30/2009 Overview: 07/01/2009 DUS in the RCA at [facility] Non-toxic multinodular goiter 04/21/2009 Overview: [...] as of this encounter (statuses as of 12/01/2022) Resolved Problems Problem Noted Date Resolved Date [...] as of this encounter (statuses as of 12/01/2022) Immunizations Name Administration Dates Next Due COVID-19 [...] encounter Miscellaneous Notes * Telephone Encounter - Bj Mario DO - 12/01/2022 4:23 PM EDT Sounds like progress * Telephone Encounter - Keerthi Barry RN - 12/01/2022 4:03 PM EDT Provider to address: Back Pain Reason for Call: Advice Contact: Telephone Call Contact Type: Assessment Outcome: Pt says she is doing OK now because she went to chiropractor. Will have another visit withchiropractor next week. She rarely takes tramadol and she cannot go to PT. Says she just can't do the exercises. Total Time including non face to face (minutes): 5 * Telephone Encounter - Keerthi Barry RN - 12/01/2022 4:03 PM EDT Left message for pt to call back. * Telephone Encounter - Bj Mario DO - 12/01/2022 3:48 PM EDT Please call: is she using Tramadol? HAs she started the PT that was ordered? * Telephone Encounter - ALESHA Browning - 11/29/2022 8:13 AM EDT Patient calling in is experiencing back pain- has had the pain for months now but seems to be getting worse. Having difficulty with eating and walking as well as bowel issues. Wanting to know what PCP recommends. documented in this encounter Plan of Treatment Upcoming Encounters Date Type Specialty Care Team Description 01/18/2023 Nurse Only Ancillary Pauline, Nurse Annual Wellness Scenery [address] [facility] [place] [address] 04/20/2023 Imaging Radiology 04/27/2023 Office Visit Cardiology Yvon Harris PA-C [address] [place] [address] 06/16/2023 Office Visit Family Medicine Bj Mario DO [address] [facility] [place] [address] Health Maintenance Due Date Last Done Comments DXA Scan 10/30/2020 10/30/2013, 10/20, 08/24/2009, Additional history exists COVID-19 Vaccine (4 - Moderna series) 07/02/2021 05/07/2021, 07/30/2020, 07/02/2020 Depression Screening, Annual for Pts 12 and Over 01/17/2023 01/17/2022 Influenza Vaccine (FLU shot) (#1) 2023 04/01/2022, 06/05/2020, 04/08/2020, Additional history exists CKD HGB USE SMARTSET 79706 04/27/202304/27, 04/27/2022, 10/19/2021, Additional history exists Albumin/Creatinine Ratio 11/15/2023 023, 01/17/2022, 04/11/2016 CKD PHOS USE SMARTSET 78881 11/15/202310/21, 10/19/2021, 11/18/2019, Additional history exists DTaP,Tdap,and [...] Not on filedocumented as of this encounter Care Teams Pre Sales Architect Relationship Specialty Start Date End Date Bj Mario, DO [address] [place] [address] PCP - General Family Medicine 11/28/16 documented as of this encounter
--- OUTSIDE RECORDS SUMMARY | 2023-01-22 22:47 | External Medical Summary ---
Author Name Unknown Address Unknown Organization K09:[facility] [place] [address] Laboratory Report Ordering Provider Test Date Status ANIVAL HANKINS 11/14/2022 09:02:06 Final Observation Date Value Abnormality Reference (Units ) Status Phosphate 11/14/2022 09:02:06 4.0 2.5-4.8 (m g/dL) Final Performing Location [facility] [place] [address]
--- OUTSIDE RECORDS SUMMARY | 2023-01-22 22:47 | External Medical Summary | Summary of Care ---
Author Name Unknown Organization [facility] Address [address] [place] [facility] [place] [place] [address] Phone [phone] Care Team Providers Care Aquaculture Farmer Name Role Phone Bj Mario DO Primary Care Provider [phone] Encounter Details Date Type Department Care Team Description 01/06/2023 Telephone Family Practice [facility] [place]ine [place] [address] [place] [address] Bj Mario DO [address] [place] [address] Allergies Active Allergy Reactions Severity Noted Date Comments Escitalopram 04/27/2022 "Didn't feel right" documented as of this encounter (statuses as of 01/06/2023) Medications Medication Sig Dispensed Refills Start Date [...] as of this encounter (statuses as of 01/06/2023) Active Problems Problem Noted Date Benign hypertension [...] DUS placed in the mid RCA at [facility] Asymptomatic bilateral carotid artery st enosis 06/10/2014 Raynaud phenomenon 06/13/2011 Knee joint replacement status 01/13/2011 Overview: 2014, right Dr Ricardo [facility] 2011: left Dr Priya Ricardo [facility] Dyslipidemia, goal LDL below 70 09/21/19 11 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 neurogenic claudication 02/17/2010 Vitamin D deficiency 10/13/2009 Chronic ischemic heart disease 0 S/P angioplasty with stent 06/30/2009 Overview: 07/01/2009 DUS in the RCA at [facility] Non-toxic multinodular goiter 04/21/2009 Overview: seen on [...] as of this encounter (statuses as of 01/06/2023) Resolved Problems Problem Noted Date Resolved Date [...] as of this encounter (statuses as of 01/06/2023) Immunizations Name Administration Dates Next Due COVID-19 mRNA, LNP-s, No Pre serve, 2-Dose Series (Moderna) 07/30/2020,07/02/2020 Covid-19 Mrna, Lnp-s, No Pre serve, Booster (Moderna) 05/07/2021 Pneumococcal Conjugate Vacc, 13 Valent (Prevnar) 09/22/2014 Season Influenza, Quad, PF, Adjuvanted, 65+ Yrs, [...] so that I can send this to gary * Telephone Encounter - ALESHA Colin - 01/06/2023 9:28 AM EDT Patient is calling, she states her and Dr Mario discussed a surgeon. He had mentioned about going to [place]. She has decided she would like to talk with a surgeon about options. She wants to be seen by Dr Thacker in [place]. She would like to start the process. She is open to whenever she can bescheduled Please call her back to help schedule documented in this encounter Plan of Treatment Upcoming Encounters Date Type Specialty Care Team Description 01/18/2023 Nurse Only Ancillary Nurse [place] Annual Wellness Scenery [address] [facility] [place] [address] 04/20/2023 Imaging Radiology 04/27/2023 Office Visit Cardiology Yvon Harris PA-C [address] [place] [address] 06/16/2023 Office Visit Family Medicine Bj Mario DO [address] [place] [address] Health Maintenance Due Date Last Done Comments DXA Scan 10/30/2020 10/30/2013, 10/20, 08/24/2009, Additional history exists COVID-19 Vaccine (4 - Moderna series) 07/02/2021 05/07/2021, 07/30/2020, 07/02/2020 Depression Screening, Annual for Pts 12 and Over 01/17/2023 01/17/2022 Influenza Vaccine (FLU shot) (#1) 2023 04/01/2022, 06/05/2020, 04/08/2020, Additional history exists CKD HGB USE SMARTSET 18224 04/27/202304/27, 04/27/2022, 10/19/2021, Additional history exists Albumin/Creatinine Ratio 11/15/2023 023, 01/17/2022, 04/11/2016 CKD PHOS USE SMARTSET 85968 11/15/202310/21, 10/19/2021, 11/18/2019, Additional history exists DTaP,Tdap,and [...] filedocumented as of this encounter Care Teams Aquaculture Farmer Relationship Specialty Start Date End Date Bj Mario, DO [address] [place] [address] PCP - General Family Medicine 11/28/16 documented as of this encounter
--- OUTSIDE RECORDS SUMMARY | 2023-01-22 22:47 | External Medical Summary | Summary of Care ---
Author Name Unknown Organization [facility] Address [address] [place] [place] [address] Phone [phone] Care Team Providers Care Ink Technician Name Role Phone Bj Mario DO Primary Care Provider [phone] Encounter Details Date Type Department Care Team Description 01/06/2023 Telephone Family Practice [facility] [place] [address] [place] [address] Bj Mario DO [address] [place] [address] Allergies Active Allergy Reactions Severity Noted Date [...] DUS placed in the mid RCA at [facility] Asymptomatic bilateral carotid artery st enosis 06/10/2014 Raynaud phenomenon 06/13/2011 Knee joint replacement status 01/13/2011 Overview: 2014, right Dr Ricardo [facility] 2011: left Dr Priya Ricardo [facility] Dyslipidemia, goal LDL below 70 09/21/19 11 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 neurogenic claudication 02/17/2010 Vitamin D deficiency 10/13/2009 Chronic ischemic heart disease 0 S/P angioplasty with stent 06/30/2009 Overview: 07/01/2009 DUS in the RCA at [facility] Non-toxic multinodular goiter 04/21/2009 Overview: seen [...] so that I can send this to [place] * Telephone Encounter - Malina VannALESHA campo - 01/06/2023 9:28 AM EDT Patient is calling, she states her and Dr Mario discussed a surgeon. He had mentioned about going to [place]. She has decided she would like to talk with a surgeon about options. She wants to be seen by Dr Thacker in [place]. She would like to start the process. She is open to whenever she can bescheduled Please call her back to help schedule documented in this encounter Plan of Treatment Upcoming Encounters Date Type Specialty Care Team Description 01/18/2023 Nurse Only Ancillary Pauline Nurse Annual Wellness Scenery [address] [facility] [place] [address] 04/20/2023 Imaging Radiology 04/27/2023 Office Visit Cardiology Yvon Harris PA-C [address] [place] [address] 06/16/2023 Office Visit Family Medicine Bj Mario, DO [address] [facility] [address] Health Maintenance Due Date Last Done Comments DXA Scan 10/30/2020 10/30/2013, 10/20, 08/24/2009, Additional history exists COVID-19 Vaccine (4 - Moderna series) 07/02/2021 05/07/2021, 07/30/2020, 07/02/2020 Depression Screening, Annual for Pts 12 and Over 01/17/2023 01/17/2022 Influenza Vaccine (FLU shot) (#1) 2023 04/01/2022, 06/05/2020, 04/08/2020, Additional history exists CKD HGB USE SMARTSET 86091 04/27/202304/27, 04/27/2022, 10/19/2021, Additional history exists Albumin/Creatinine Ratio 11/15/2023 023, 01/17/2022, 04/11/2016 CKD PHOS USE SMARTSET 83074 11/15/202310/21, 10/19/2021, 11/18/2019, Additional history exists DTaP,Tdap,and [...] filedocumented as of this encounter Care Teams Ink Technician Relationship Specialty Start Date End Date Bj Mario, DO [address] [place] [address] PCP - General Family Medicine 11/28/16 documented as of this encounter
--- OUTSIDE RECORDS SUMMARY | 2023-01-22 22:47 | External Medical Summary | Summary of Care ---
Author Name Unknown Organization [facility] Address [address] [facility] [place] [address] Phone [phone] Care Team Providers Care Senior Network Administrator Name Role Phone Bj Mario DO Primary Care Provider [phone] Reason for Referral * Medication Prior Authorization - Pending Review Specialty Diagnoses / Procedures Referred By Love gamboa Referred To Contact Diagnoses 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 neurogenic claudication Bj Mario DO [address] [facility] [place] [address] Referral ID Status Reason Start Date Expiration Date V isits Requested Visits Authorized [id number] Pending Review [phone] Reason for Visit * Reason Comments Back Pain Encounter Details Date Type Department Care Team Description 01/02/2023 Office Visit [facility] [place] [address] [facility] [place] [address] Bj Mario DO 200 [facility] [place] [address] 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 neurogenic claudication* Allergies Active Allergy Reactions Severity Noted Date Comments Escitalopram 04/27/2022 "Didn't feel right" documented as of this encounter (statuses as of 01/09/2023) Medications Medication Sig Dispensed Refills Start Date End Date Status ASPIRIN 81 MG PO CHEW One pill by mouth once a day with food 100 5 08/06/2008 Active VITAMIN D 1000 UNIT PO CAPSIndications:Vi [...] 05/09/2022 Active Lisinopril 10 MG Oral Tablet (Prinivil)Indicati [...] 08/29/2022 Active Furosemide 20 MG Oral Tablet (Lasix)Indications :HTN, goal below 140/90 take 1 tablet by mouth once daily 90 Tablet 1 11/03/2022 Active traMADol HCl 50 MG Oral Tablet (Ultram)Indication s: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 neurogenic claudication,Cervi calgia Take 1 Tablet by mouth 2 times a day as needed for Pain, Severe. 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 60 Capsule 5 11/14/2022 3 Discontinued documented as of this encounter (statuses [...] the mid RCA at [facility] Asymptomatic bilateral carotid artery st enosis 06/10/2014 Raynaud phenomenon 06/13/2011 Knee joint replacement status 01/13/2011 Overview: 2014, right Dr Ricardo [facility] 2011: left Dr Priya Ricardo [facility] Dyslipidemia, goal LDL below 70 09/21/19 11 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 neurogenic claudication 02/17/2010 Vitamin D deficiency 10/13/2009 Chronic ischemic heart disease 0 S/P angioplasty with stent 06/30/2009 Overview: 07/01/2009 DUS in the RCA at [facility] Non-toxic multinodular goiter 04/21/2009 Overview: seen on US, repeat 4-10/2009 HTN, goal below 140/90 05/25/2006 Advance directive [...] Sign Reading Time Taken Comments Blood Pressure 104/60 01/02/2023 2:50 PM EDT Pulse 63 01/02/2023 2:50 PM EDT Temperature 35.8 C (96.4 F) 01/02/2023 2:50 PM ED T Respiratory Rate 16 01/02/2023 2:50 PM EDT Oxygen Saturation 96% 01/02/2023 2:50 PM EDT Inhaled Oxygen Concentration - - Weight 86.8 kg (191 lb 6.4 oz) 01/02/2023 2:50 P M EDT Height - - Body Mass Index 34.45 07/04/2022 3:38 PM EST documented in this encounter Progress Notes * Bj Mario, DO - 01/02/2023 3:13 PM EDT Subjective: Eugenia Hu is a 87 year old female. Chief Complaint Patient presents with Back Pain HPI: Pt here for a back pain. We increased her gabapentin on last visit. We also put her on Tramadol. She does not feel like it is strong enough. Pain is around her tailbone and into her buttocks. A lot of it is going to her legs. She feels painwith walking. She sees Dr. Hall and has for 3-4 weeks. It helps to a certain extent. She has tried a TENS unit also. Family member says gabapentin helped. 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 100 g 5 travoprost, MAYA Free, (TRAVATAN Z) 0.004 % ophthalmic solution instill 1 drop into both eyes every evening 2.5 mL 5 Timolol Maleate 0.5 % Ophthalmic Solution (Timoptic) instill 1 drop into both eyes every morning Isosorbide Mononitrate ER 30 MG Oral Tablet Extended Release 24 Hour (Imdur) take 1 tablet by mouthonce daily 100 Tablet 3 Famotidine 20 MG Oral Tablet (Pepcid) Take [...] tablet by mouth daily 45 Tablet 3 Rosuvastatin Calcium 10 MG Oral Tablet (Crestor) Take 1 Tablet by mouth in the morning. 90 Tablet 1 rOPINIRole HCl 0.25 MG Oral Tablet (Requip) take 1 tablet by mouth at bedtime 90 Tablet 1 Furosemide 20 MG Oral Tablet (Lasix) take 1 tablet by mouth once daily 90 Tablet 1 traMADol HCl 50 MG Oral Tablet (Ultram) Take 1 Tablet by mouth 2 times a day as needed for Pain, Severe. 60 Tablet 0 Gabapentin 300 MG Oral Capsule (Neurontin) Take 1 Capsule by mouth in the morning and 1 Capsule in the evening. (Patient not taking: Reported on 01/02/2023) 60 Capsule 5 No current facility-administered medications for this visit. Review of patient's allergies indicates: Allergen Reactions Lexapro [Escitalopram] "Didn't feel right" OBJECTIVE: BP 104/60 | Pulse 63 | Temp 35.8 C (96.4 F) (Tympanic) | Resp 16 | Wt 86.8 kg (191 lb 6.4 oz) |SpO2 96% | BMI 34.45 kg/m | BSA 1.96 m Estimated body mass index is 34.45 kg/m as calculated from the following: Height as of 07/04/22: 1.588 m (5' 2.5"). Weight as of this encounter: 86.8 kg (191 lb 6.4 oz). BP Readings from Last 3 Encounters: 01/02/23 104/60 11/14/22 122/62 10/26/22 128/78 Wt Readings from Last 3 Encounters: 01/02/23 86.8 kg (191 lb 6.4 oz) 11/14/22 87.5 kg (192 lb 12.8 oz) 10/26/22 85.7 kg (189 lb) ROS: Negative except for above PHYSICAL EXAM: General: alert, healthy, and no distress Head: Normocephalic, No masses, lesions, tenderness or abnormalities ASSESSMENT/Plan 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 neurogenic claudication (Primary) - Gabapentin 300 MG Oral Capsule (Neurontin); Take 1 Capsule by mouth in the morning and 1 Capsule at noon and 1 Capsule before bedtime. - HYDROcodone-Acetaminophen 5-325 MG Oral Tablet; Take 1 Tablet by mouth 2 times a day as needed for Pain, Severe. Go back to gabapentin. Use Vicodin as needed. She will consider going to neurosurgery. Will let me know if she wants to go there. The above was discussed and understanding was expressed. Bj Mario DO documented in this encounter Nursing Notes * Marly Dennison LPN - 01/02/2023 2:45 PM EDT Patient presents in office today with C/O lower back and tail bone pain. Was in the ER 2 weeks ago had a follow up and missed it but is now in more pain. States its a sharp pain that comes and goes. Says the pain radiates down into her buttocks. States she has sat on ice, used TENs unit, PT twice aweek. Tried doing some exercises. documented in this encounter Plan of Treatment Upcoming Encounters Date Type Specialty Care Team Description 01/18/2023 Nurse Only Ancillary Nurse Pauline [facility] [address] [place] [address] 04/20/2023 Imaging Radiology 04/27/2023 Office Visit Cardiology Yvon Harris PA-C [address] [place] [address] 06/16/2023 Office Visit Family Medicine Bj Mario DO [address] [place] [address] Health Maintenance Due Date Last Done Comments DXA Scan 10/30/2020 10/30/2013, 10/20, 08/24/2009, Additional history exists COVID-19 Vaccine (4 - Moderna series) 07/02/2021 05/07/2021, 07/30/2020, 07/02/2020 Depression Screening, Annual for Pts 12 and Over 01/17/2023 01/17/2022 Influenza Vaccine (FLU shot) (#1) 2023 04/01/2022, 06/05/2020, 04/08/2020, Additional history exists CKD HGB USE SMARTSET 35836 04/27/202304/27, 04/27/2022, 10/19/2021, Additional history exists Albumin/Creatinine Ratio 11/15/2023 023, 01/17/2022, 04/11/2016 CKD PHOS USE SMARTSET 77591 11/15/202310/21, 10/19/2021, 11/18/2019, Additional history exists DTaP,Tdap,and [...] claudication documented in this encounter Care Teams Senior Network Administrator Relationship Specialty Start Date End Date Bj Mario, DO [address] [place] [address] PCP - General Family Medicine 11/28/16 documented as of this encounter
--- OUTSIDE RECORDS SUMMARY | 2023-01-22 22:47 | External Medical Summary | Summary of Care ---
Author Name Unknown Organization [facility] Address [address] [place] [address] Phone [phone] Care Team Providers Care Lap Polisher Name Role Phone Bj Mario DO Primary Care Provider [phone] Reason for Visit * Reason Comments Outpatient Testing Encounter Details Date Type Department Care Team Description 11/14/2022 Laboratory Laboratory Sc[facility] Raquel Carpenter [address] [place] [address] [place], Lab Scenery [address] [place] [address] Benign hypertension with CKD (chronic kidney disease) stage III ([facility]) Allergies Active Allergy Reactions Severity Noted Date [...] DUS placed in the mid RCA at [facility] Asymptomatic bilateral carotid artery st enosis 06/10/2014 Raynaud phenomenon 06/13/2011 Knee joint replacement status 01/13/2011 Overview: 2014, right Dr Ricardo [facility] 2011: left Dr Priya Ricardo [facility] Dyslipidemia, goal LDL below 70 09/21/19 11 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 neurogenic claudication 02/17/2010 Vitamin D deficiency 10/13/2009 Chronic ischemic heart disease 0 S/P angioplasty with stent 06/30/2009 Overview: 07/01/2009 DUS in the RCA at [facility] Non-toxic multinodular goiter 04/21/2009 Overview: seen on [...] Annual Wellness Scenery [address] [place] [address] 04/20/2023 Imaging Radiology 04/27/2023 Office Visit Cardiology Yvon Harris PA-C [address] [place] [address] 06/16/2023 Office Visit Family Medicine Bj Mario DO [address] [place] [address] Pending Results Name Type Priority Associated Diagnoses [...] 05/07/2021, 07/30/2020, 07/02/2020 CKD PHOS USE SMARTSET 45536 10/19/2022 05/05/2021, 11/18/2019, 07/15/2019, Additional history exists Albumin/Creatinine Ratio 01/17/2023 01/17/2022, 03/23 Depression Screening, Annual for Pts 12 and Over 01/17/2023 01/17/2022 CKD HGB USE SMARTSET 57248 04/27/202304/27, 04/27/2022, 10/19/2021, Additional history exists DTaP,Tdap,and [...] unspecified documented in this encounter Care Teams Lap Polisher Relationship Specialty Start Date End Date Bj Mario DO [address] [place] [address] PCP - General Family Medicine 11/28/16 documented as of this encounter
--- OUTSIDE RECORDS SUMMARY | 2023-01-22 22:47 | External Medical Summary ---
Author Name Unknown Address Unknown Organization K01:[facility] - [address] [place] [address] Laboratory Report Ordering Provider Test Date Status NHIANIVAL 11/14/2022 09:07:10 Final Observation Date Value Abnormality Reference (Units ) Status Albumin, Urine 11/14/2022 09:07:10 <1.20 (mg/dL) Final Creatinine, Urine 11/14/2022 09:07:10 76 (mg/dL) Final Albumin/Creatinine [Mass Ratio] in Urine 11/14/2022 09:07:10 <16 <30 (mg/g Creat) Final Performing Location [facility] - [address] [place] [address]
--- OUTSIDE RECORDS SUMMARY | 2023-01-22 22:47 | External Medical Summary | Summary of Care ---
Author Name Unknown Organization [facility] Address [address] [facility] [place] [address] Phone [phone] Care Team Providers Care Prepress Supervisor Name Role Phone Bj Mario DO Primary Care Provider [phone] Encounter Details Date Type Department Care Team Description 01/06/2023 Telephone Family Practice [facility] [place] [address] [place] [address] Bj Mario DO [address] [place] [address] Allergies Active Allergy Reactions Severity Noted Date [...] in the mid RCA at [facility] Asymptomatic bilateral carotid artery st enosis 06/10/2014 Raynaud phenomenon 06/13/2011 Knee joint replacement status 01/13/2011 Overview: 2014, right Dr Ricardo [facility] 2011: left Dr Priya Ricardo [facility] Dyslipidemia, goal LDL below 70 09/21/19 11 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 neurogenic claudication 02/17/2010 Vitamin D deficiency 10/13/2009 Chronic ischemic heart disease 0 S/P angioplasty with stent 06/30/2009 Overview: 07/01/2009 DUS in the RCA at [facility] Non-toxic multinodular goiter 04/21/2009 Overview: seen on [...] encounter Miscellaneous Notes * Telephone Encounter - Mary Jo Gooden DO - 01/06/2023 11:54 AM EDT General surgery? Or what specific kind of referral needed? Ortho / neurosurgery? And what is the problem you are seeing them for? * Telephone Encounter - ALESHA Kearney - 01/06/2023 11:28 AM EDT Please advise there is no referral in for pt so that I can send this to [place] * Telephone Encounter - ALESHA Colin - 01/06/2023 9:28 AM EDT Patient is calling, she states her and Dr Mario discussed a surgeon. He had mentioned about going to [place]. She has decided she would like to talk with a surgeon about options. She wants to be seen by Dr Thacker in [place]. She would like to start the process. She is open to whenever she can bescheduled Please call her back to help schedule documented in this encounter Plan of Treatment Upcoming Encounters Date Type Specialty Care Team Description 01/18/2023 Nurse Only Ancillary Pauline, Nurse [facility] [address] [place] [address] 04/20/2023 Imaging Radiology 04/27/2023 Office Visit Cardiology Yvon Harris PA-C [address] [place] [address] 06/16/2023 Office Visit Family Medicine Bj Mario DO [address] [place] [address] Health Maintenance Due Date Last Done Comments DXA Scan 10/30/2020 10/30/2013, 10/20, 08/24/2009, Additional history exists COVID-19 Vaccine (4 - Moderna series) 07/02/2021 05/07/2021, 07/30/2020, 07/02/2020 Depression Screening, Annual for Pts 12 and Over 01/17/2023 01/17/2022 Influenza Vaccine (FLU shot) (#1) 2023 04/01/2022, 06/05/2020, 04/08/2020, Additional history exists CKD HGB USE SMARTSET 80890 04/27/202304/27, 04/27/2022, 10/19/2021, Additional history exists Albumin/Creatinine Ratio 11/15/2023 023, 01/17/2022, 04/11/2016 CKD PHOS USE SMARTSET 12007 11/15/202310/21, 10/19/2021, 11/18/2019, Additional history exists DTaP,Tdap,and [...] filedocumented as of this encounter Care Teams Prepress Supervisor Relationship Specialty Start Date End Date Bj Mario, DO [address] [place] [place] [address] PCP - General Family Medicine 11/28/16 documented as of this encounter
--- OUTSIDE RECORDS SUMMARY | 2023-01-22 22:47 | External Medical Summary | Summary of Care ---
Author Name Unknown Organization [facility] Address [address] [facility] [address] Phone [phone] Care Team Providers Care Boiler Maker Name Role Phone Nhi Mario DO Primary Care Provider [phone] Reason for Referral * Evaluate & Treat - Unlimited Visits (Within 30 days (routine)) - Pending Review Specialty Diagnoses / Procedures Referred By Love gamboa Referred To Contact Neuro/Ortho Surgery - Spine. 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 No Encounter Details Date Type Department Care Team Description 01/06/2023 Telephone Family Practice [place] Raquel Roger [address] [place] [address] Nhi Mario DO [address] [place] [address] Allergies Active Allergy Reactions Severity Noted Date [...] DUS placed in the mid RCA at [facility] Asymptomatic bilateral carotid artery st enosis 06/10/2014 Raynaud phenomenon 06/13/2011 Knee joint replacement status 01/13/2011 Overview: 2014, right Dr Ricardo [facility] 2011: left Dr Priya Ricardo [facility] Dyslipidemia, goal LDL below 70 09/21/19 11 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 Thacker at [facility] * Telephone Encounter - ALESHA Kearney - [...] so that I can send this to [place] * Telephone Encounter - Malina Dinero, ALESHA - 01/06/2023 9:28 AM EDT Patient is calling, she states her and Dr Mario discussed a surgeon. He had mentioned about going to [place]. She has decided she would like to talk with a surgeon about options. She wants to be seen by Dr Thacker in [place]. She would like to start the process. She is open to whenever she can bescheduled Please call her back to help schedule documented in this encounter Plan of Treatment Upcoming Encounters Date Type Specialty Care Team Description 01/18/2023 Nurse Only Ancillary Nurse Pauline [facility] [address] [place] [address] 04/20/2023 Imaging Radiology 04/27/2023 Office Visit Cardiology Yvon Harris PA-C [address] [place] [address] 06/16/2023 Office Visit Family Medicine Nhi Mario DO [address] [place] [address] Scheduled Referrals Name Type Priority Associated Diagnoses [...] Additional history exists CKD HGB USE SMARTSET 14001 04/27/202304/27, 04/27/2022, 10/19/2021, Additional history exists Albumin/Creatinine Ratio 11/15/2023 023, 01/17/2022, 04/11/2016 CKD PHOS USE SMARTSET 87178 11/15/202310/21, 10/19/2021, 11/18/2019, Additional history exists DTaP,Tdap,and [...] claudication documented in this encounter Care Teams Boiler Maker Relationship Specialty Start Date End Date Nhi Mario, DO [address] [place] [address] PCP - General Family Medicine 11/28/16 documented as of this encounter
--- OUTSIDE RECORDS SUMMARY | 2023-01-22 22:48 | External Medical Summary | Summary of Care ---
Author Name Unknown Organization [place] [address] Care Team Providers Care Outreach Librarian Name Role Phone Nhi Florian DO Primary Care Provider [phone] Reason for Visit * Reason Comments eRx-Medication Refill Encounter Details Date Type Department Care Team Description 07/18/2022 Refill Family Practice [facility] [place] [address] [place] [address] Nhi Florian DO [address] [place] [address] CHR ISCHEMIC HRT DIS NOS Allergies Active Allergy Reactions Severity Noted Date Comments Escitalopram 04/27/2022 "Didn't feel right" documented as of this encounter (statuses as of 07/19/2022) Medications Medication Sig Dispensed Refills Start Date [...] both eyes every morning 0 11/25/2020 Active rOPINIRole HCl 0.25 MG Oral Tablet (Requip)Indication s:Restless legs syndrome take 1 tablet by mouth at bedtime 90 Tablet 1 02/24/2022 Active Rosuvastatin Calcium 20 MG Oral Tablet (Crestor)Indicatio ns:Dyslipidemia, goal LDL below 70 take 1 tablet by mouth once daily 90 Tablet 1 02/24/2022 Active Isosorbide Mononitrate ER 30 MG Oral Tablet Extended Release 24 Hour (Imdur)Indications :Chronic ischemic heart disease take 1 tablet by mouth once daily 100 Tablet 3 04/27/2022 Active Furosemide 20 MG Oral Tablet (Lasix)Indications :HTN, goal below 140/90 take 1 tablet by mouth once daily 90 Tablet 1 05/02/2022 Active traMADol HCl 50 MG Oral Tablet (Ultram)Indication s: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 neurogenic claudication,Cervi calgia Take 1 Tablet by mouth daily as needed for Pain, Severe. 30 Tablet 0 05/09/2022 Active Famotidine 20 MG Oral Tablet (Pepcid) [...] 15 minutes 25 Tablet 11 07/04/2022 Active Gabapentin 100 MG Oral Capsule (Neurontin)Indicat ions:Spinal stenosis of lumbar region with radiculopathy Take 1 Capsule by mouth in the morning and 1 Capsule in the evening. 60 Capsule 5 07/04/2022 Active Metoprolol Succinate ER 25 MG Oral Tablet Extended Release 24 Hour (toPROL XL)Indications:Chr onic ischemic heart disease take 1/2 tablet by mouth daily 45 Tablet 3 07/19/2022 Active Metoprolol Succinate ER 25 MG Oral Tablet Extended Release 24 Hour (toPROL XL)Indications:Chr onic ischemic heart disease Take 0.5 Tablets by mouth daily. 45 Tablet 3 04/19/2021 3 Discontinued documented as of this encounter (statuses as of 07/19/2022) Active Problems Problem Noted Date Benign hypertension [...] DUS placed in the mid RCA at [facility] Asymptomatic bilateral carotid artery st enosis 06/10/2014 Raynaud phenomenon 06/13/2011 Knee joint replacement status 01/13/2011 Overview: 2014, right Dr Ricardo [facility] 2011: left Dr Priya Ricardo [facility] Dyslipidemia, goal LDL below 70 09/21/19 11 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 neurogenic claudication 02/17/2010 Vitamin D deficiency 10/13/2009 Chronic ischemic heart disease 0 S/P angioplasty with stent 06/30/2009 Overview: 07/01/2009 DUS in the RCA at [facility] Non-toxic multinodular goiter 04/21/2009 Overview: seen [...] as of this encounter (statuses as of 07/19/2022) Resolved Problems Problem Noted Date Resolved Date [...] as of this encounter (statuses as of 07/19/2022) Immunizations Name Administration Dates Next Due COVID-19 [...] encounter Miscellaneous Notes * Telephone Encounter - Cynthia Madison [facility] - 07/19/2022 9:19 AM ESTSigned Prescriptions: Disp Refills Metoprolol Succinate ER 25 MG Oral Tablet *45 Tab*3 Sig: take 1/2 tablet by mouth daily Authorizing Provider: NHI FLORIAN User: CYNTHIA MADISON * Telephone Encounter - Zoe [facility] - 07/18/2022 3:26 PM ESTPending Prescriptions: Disp Refills Metoprolol Succinate ER 25 MG Oral Tablet *45 Tab*3 Sig: take 1/2 tablet by mouth daily * Telephone Encounter - Cassidy Gamez, gear machinist - 07/18/2022 10:32 AM EST Did you pend patient's preferred pharmacy and medication before forwarding?yes Pharmacy: [facility] #[id number] Pending Prescriptions: Disp Refills Metoprolol Succinate ER 25 MG Oral Tablet*45 Tab*3 Sig: take 1/2 tablet by mouth daily Last Visit: 05/09/2022 (in office), Visit date not found (telemedicine) Next Visit: 11/14/2022 If no future appointments scheduled, and last appointment is greater than a year ago, please schedule patient for a follow-up appointment Last date the medication was ordered: 04/19/21 Is this request for a controlled substance?No Urine Drug Screen:No results found for this or any previous visit. Patient Phone Numbers Labs: Lab Results Component Value Date/Time CREAT 1.4 (H) 04/27/2022 10:04 AM CREAT 1.3 (H) 04/06/2020 10:20 AM POTASSIUM 4.4 04/27/2022 10:04 AM POTASSIUM 4.6 04/06/2020 10:20 AM POTASSIUM 4.0 08/05/1996 07:45 AM TSH 1.79 04/27/2022 10:04 AM TSH 2.53 04/06/2020 10:20 AM TSH 3.60 08/05/1996 07:45 AM LDLCALC 63 04/27/2022 10:04 AM LDLCALC 59 04/04/2019 10:11 AM LDLDIRECT 72 04/19/2021 09:18 AM LDLDIRECT 67 04/06/2020 10:20 AM LDLDIRECT 92 06/13/2011 10:52 AM ALT 12 04/27/2022 10:04 AM ALT 14 04/06/2020 10:20 AM documented in this encounter Plan of Treatment Upcoming Encounters Date Type Specialty Care Team Description 07/26/2022 Hospital Encounter Surgery Paul Berg, [address] [place] [address] 07/26/2022 Surgery Surgery Paul Berg DO [address] [place] [address] INJECTION SPINE LUMBAR OR SACRAL 10/26/2022 Office Visit Cardiology Yvon Harris PA-C [address] [place] [address] 11/14/2022 Office Visit Family Medicine Nhi Florian, DO [address] [place] [address] 01/18/2023 Nurse Only [place]illary [place], Nurse Annual Wellness Scenery [address] [place] [address] Scheduled Procedures Name Priority Associated Diagnoses Date/Ti me INJECTION SPINE LUMBAR OR SACRAL 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 neurogenic claudication 07/26/2022 10:00 AM EST Health Maintenance Due Date Last Done Comments DXA Scan 10/30/2020 10/30/2013, 10/20, 08/24/2009, Additional history exists COVID-19 Vaccine (4 - Booster for Moderna series) 07/02/2021 05/07/2021, 07/30/2020, 07/02/2020 CKD PHOS USE SMARTSET 68924 10/19/202209/21, 11/18/2019, 07/15/2019, Additional history exists Albumin/Creatinine Ratio 01/17/2023 01/17/2022, 03/23 Depression Screening, Annual for Pts 12 and Over 01/17/2023 01/17/2022 CKD HGB USE SMARTSET 85288 04/27/202304/27, 04/27/2022, 10/19/2021, Additional history exists DTaP,Tdap,and [...] as of this encounter Visit Diagnoses Diagnosis CHR ISCHEMIC HRT DIS NOS Chronic ischemic heart disease, unspecified 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 neurogenic claudication Spinal stenosis, lumbar region, without neurogenic claudication documented in this encounter Care Teams Outreach Librarian Relationship Specialty Start Date End Date Nhi Florian, DO [address] [facility] [place] [address] PCP - General Family Medicine 11/28/16 documented as of this encounter
--- OUTSIDE RECORDS SUMMARY | 2023-01-22 22:48 | External Medical Summary | Summary of Care ---
Author Name Unknown Organization [facility] Address [address] [place] [address] Phone [phone] Care Team Providers Care Loop Cutter Name Role Phone Bj Mario DO Primary Care Provider [phone] Reason for Visit * Reason Onset Date Comments Order Request 08/01/2022 Encounter Details Date Type Department Care Team Description 08/01/2022 Telephone Family Practice [facility] [address] [place] [address] Bj Mario DO [address] [facility] [place] [place] [address] Order Request Allergies Active Allergy Reactions Severity Noted Date Comments Escitalopram 04/27/2022 "Didn't feel right" documented as of this encounter (statuses as of 08/01/2022) Medications Medication Sig Dispensed Refills Start Date End Date Status ASPIRIN 81 MG PO CHEW One pill by mouth once a day with food 100 5 08/06/2008 Active VITAMIN D 1000 UNIT PO CAPSIndications:Vit fishman D deficiency 1 capsule daily 30 Cap 11 10/13/2009 Active Acetaminophen 500 MG Oral Tablet Take 1 Tablet by mouth every 6 hours as needed for Pain. 0 Active Diclofenac Sodium (VOLTAREN) 1 % gelIndications:Cerv icalgia Place 4 g topically on the skin [...] Active rOPINIRole HCl 0.25 MG Oral Tablet (Requip)Indications :Restless legs syndrome take 1 tablet by mouth at bedtime 90 Tablet 1 02/24/2022 Active Rosuvastatin Calcium 20 MG Oral Tablet (Crestor)Indication s:Dyslipidemia, goal LDL below 70 take 1 tablet by mouth once daily 90 Tablet 1 02/24/2022 Active Isosorbide Mononitrate ER 30 MG Oral Tablet Extended Release 24 Hour (Imdur)Indications: Chronic ischemic heart disease take 1 tablet by mouth once daily 100 Tablet 3 04/27/2022 Active Furosemide 20 MG Oral Tablet (Lasix)Indications: HTN, goal below 140/90 take 1 tablet by mouth once daily 90 Tablet 1 05/02/2022 Active traMADol HCl 50 MG Oral Tablet (Ultram)Indications :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 neurogenic claudication,Cervic algia Take 1 Tablet by mouth daily as needed for Pain, Severe. 30 Tablet 0 05/09/2022 Active Famotidine 20 MG Oral Tablet (Pepcid) Take 1 Tablet by mouth every night at bedtime. 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 120 Capsule 5 07/29/2022 Active documented as of this encounter (statuses as of 08/01/2022) Active Problems Problem Noted Date Benign hypertension [...] DUS placed in the mid RCA at [facility] Asymptomatic bilateral carotid artery st enosis 06/10/2014 Raynaud phenomenon 06/13/2011 Knee joint replacement status 01/13/2011 Overview: 2014, right Dr Ricardo [facility] 2011: left Dr Priya Ricardo [facility] Dyslipidemia, goal LDL below 70 09/21/19 11 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 neurogenic claudication 02/17/2010 Vitamin D deficiency 10/13/2009 Chronic ischemic heart disease 0 S/P angioplasty with stent 06/30/2009 Overview: 07/01/2009 DUS in the RCA at [facility] Non-toxic multinodular goiter 04/21/2009 Overview: seen on [...] as of this encounter (statuses as of 08/01/2022) Resolved Problems Problem Noted Date Resolved Date [...] as of this encounter (statuses as of 08/01/2022) Immunizations Name Administration Dates Next Due COVID-19 [...] Telephone Encounter - Bj Mario DO - 08/01/2022 4:47 PM EDT Order placed in separate encounter already it appears. * Telephone Encounter - ALESHA Sotomayor - 08/01/2022 9:10 AM EDT Will need an order for a mammogram cristi bilateral documented in this encounter Plan of Treatment Upcoming Encounters Date Type Specialty Care Team Description 08/23/2022 Telemedicine Pain Medicine Paul Berg DO [address] [place] [address] 09/12/2022 Imaging Radiology 10/26/2022 Office Visit Cardiology Yvon Harris PA-C [address] [place] [address] 11/14/2022 Office Visit Family Medicine Bj Mario DO [address] [place] [address] 01/18/2023 Nurse Only Ancillary [place], Nurse Annual Wellness Scenery [address] [place] [address] Health Maintenance Due Date Last Done Comments DXA Scan 10/30/2020 10/30/2013, 10/20, 08/24/2009, Additional history exists COVID-19 Vaccine (4 - Booster for Moderna series) 07/02/2021 05/07/2021, 07/30/2020, 07/02/2020 CKD PHOS USE SMARTSET 91423 10/19/202209/21, 11/18/2019, 07/15/2019, Additional history exists Albumin/Creatinine Ratio 01/17/2023 01/17/2022, 03/23 Depression Screening, Annual for Pts 12 and Over 01/17/2023 01/17/2022 CKD HGB USE SMARTSET 92372 04/27/202304/27, 04/27/2022, 10/19/2021, Additional history exists DTaP,Tdap,and [...] filedocumented as of this encounter Care Teams Loop Cutter Relationship Specialty Start Date End Date Bj Mario, DO [address] [place] [address] PCP - General Family Medicine 11/28/16 documented as of this encounter
--- OUTSIDE RECORDS SUMMARY | 2023-01-22 22:48 | External Medical Summary | Summary of Care ---
Author Name Unknown Organization [facility] Address [address] [place] [address] Phone [phone] Care Team Providers Care Advertising Account Executive Name Role Phone Bj Mario DO Primary Care Provider [phone] Reason for Visit * Reason Onset Date Comments Medication Question 07/29/2022 Encounter Details Date Type Department Care Team Description 07/29/2022 Telephone General Internal Medicine [facility] [address] [facility] [place] [address] Leonel Burns PA-C [address] [facility] [place] [address] Medication Question Allergies Active Allergy Reactions Severity Noted Date [...] 07/19/2022 Active Gabapentin 100 MG Oral Capsule (Neurontin)Indicat ions:Spinal stenosis of lumbar region with radiculopathy Take 2 Capsules by mouth in the morning and 2 Capsules in the evening. 120 Capsule 5 07/29/2022 Active Gabapentin 100 MG Oral Capsule (Neurontin)Indicat ions:Spinal stenosis of lumbar region with radiculopathy Take 1 Capsule by mouth in the morning and 1 Capsule in the evening. 60 Capsule 5 07/04/2022 3 Discontinu ed(Refill) documented as of this encounter (statuses as [...] DUS placed in the mid RCA at [facility] Asymptomatic bilateral carotid artery st enosis 06/10/2014 Raynaud phenomenon 06/13/2011 Knee joint replacement status 01/13/2011 Overview: 2014, right Dr Ricardo [facility] 2011: left Dr Priya Ricardo [facility] Dyslipidemia, goal LDL below 70 09/21/19 11 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 neurogenic claudication 02/17/2010 Vitamin D deficiency 10/13/2009 Chronic ischemic heart disease 0 S/P angioplasty with stent 06/30/2009 Overview: 07/01/2009 DUS in the RCA at [facility] Non-toxic multinodular goiter 04/21/2009 Overview: seen [...] Miscellaneous Notes * Telephone Encounter - TODD Guerrero - 07/29/2022 10:09 AM EST Pt calling in requesting increased dosage on Gabapentin 100 MG Oral Capsule (Neurontin). Pt is requesting to take 200 MG twice daily. Please advise. Thank you, Renée Schmitz CPhT Functional Skills Tutor [facility] 07/29/2022, 10:10 AM documented in this encounter Plan of Treatment Upcoming Encounters Date Type Specialty Care Team Description 08/23/2022 Telemedicine Pain Medicine Cousins, Paul Weiss, DO [address] [place] [address] 09/12/2022 Imaging Radiology 10/26/2022 Office Visit Cardiology Yvon Harris PA-C [address] [place] [address] 11/14/2022 Office Visit Family Medicine Bj Mario, DO [address] [place] [address] 01/18/2023 Nurse Only [place]illary [place], Nurse Annual Wellness Scenery [address] [place] [address] Health Maintenance Due Date Last Done Comments DXA Scan 10/30/2020 10/30/2013, 10/20, 08/24/2009, Additional history exists COVID-19 Vaccine (4 - Booster for Moderna series) 07/02/2021 05/07/2021, 07/30/2020, 07/02/2020 CKD PHOS USE SMARTSET 88652 10/19/202209/21, 11/18/2019, 07/15/2019, Additional history exists Albumin/Creatinine Ratio 01/17/2023 01/17/2022, 03/23 Depression Screening, Annual for Pts 12 and Over 01/17/2023 01/17/2022 CKD HGB USE SMARTSET 25141 04/27/202304/27, 04/27/2022, 10/19/2021, Additional history exists DTaP,Tdap,and [...] Diagnoses Diagnosis Spinal stenosis of lumbar region with radiculopathy Spinal stenosis, lumbar region, without neurogenic claudication documented in this encounter Care Teams Advertising Account Executive Relationship Specialty Start Date End Date Bj Mario, DO [address] [facility] [place] [place] [address] PCP - General Family Medicine 11/28/16 documented as of this encounter
--- OUTSIDE RECORDS SUMMARY | 2023-01-22 22:48 | External Medical Summary | Summary of Care ---
Author Name Unknown Organization [facility] Address [address] [facility] [place] [address] Phone [phone] Care Team Providers Care Human Resources Receptionist Name Role Phone Nhi Florian DO Primary Care Provider [phone] Reason for Visit * Reason Comments eRx-Medication Refill Encounter Details Date Type Department Care Team Description 08/27/2022 Refill Family Practice [facility] [place] [address] [place] [address] Nhi Florian DO [address] [place] [address] Dyslipidemia, goal LDL below 70; Restless legs syndrome Allergies Active Allergy Reactions Severity Noted Date Comments Escitalopram 04/27/2022 "Didn't feel right" documented as of this encounter (statuses as of 08/29/2022) Medications Medication Sig Dispensed Refills Start Date [...] once daily 100 Tablet 3 2 Active Furosemide 20 MG Oral Tablet (Lasix)Indications :HTN, goal below 140/90 take 1 tablet by mouth once daily 90 Tablet 1 2 Active traMADol HCl 50 MG Oral [...] 90 Tablet 1 2 08/30/19 23 Discontinued documented as of this encounter (statuses as of 08/29/2022) Active Problems Problem Noted Date Benign hypertension [...] DUS placed in the mid RCA at [facility] Asymptomatic bilateral carotid artery st enosis 06/10/2014 Raynaud phenomenon 06/13/2011 Knee joint replacement status 01/13/2011 Overview: 2014, right Dr Ricardo [facility] 2011: left Dr Priya Ricardo [facility] Dyslipidemia, goal LDL below 70 09/21/19 11 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 neurogenic claudication 02/17/2010 Vitamin D deficiency 10/13/2009 Chronic ischemic heart disease 0 S/P angioplasty with stent 06/30/2009 Overview: 07/01/2009 DUS in the RCA at [facility] Non-toxic multinodular goiter 04/21/2009 Overview: seen [...] as of this encounter (statuses as of 08/29/2022) Resolved Problems Problem Noted Date Resolved Date [...] as of this encounter (statuses as of 08/29/2022) Immunizations Name Administration Dates Next Due COVID-19 [...] encounter Miscellaneous Notes * Telephone Encounter - Nhi Florian DO - 08/29/2022 3:41 PM EDTSigned Prescriptions: Disp Refills Rosuvastatin Calcium 10 MG Oral Tablet (Cr*90 Tab*1 Sig: Take 1 Tablet by mouth in the morning. Authorizing Provider: NHI FLORIAN rOPINIRole HCl 0.25 MG Oral Tablet (Requip)90 Tab*1 Sig: take 1 tablet by mouth at bedtime Authorizing Provider: NHI FLORIAN * Telephone Encounter - Austin Cleveland, [facility] - 08/29/2022 2:42 PM EDT Pending Prescriptions: Disp Refills Rosuvastatin Calcium 10 MG Oral Tablet (Cr*90 Tab*1 Sig: Take 1 Tablet by mouth in the morning. rOPINIRole HCl 0.25 MG Oral Tablet (Requip)90 Tab*1 Sig: take 1 tablet by mouth at bedtime * Telephone Encounter - Austin Cleveland [facility] - 08/29/2022 2:39 PM EDT Serum creatinine: [...] agreeable. Thanks, Austin Cleveland, PharmD Clinical Pharmacist [facility] [phone] 08/29/2022, 2:42 PM documented in this encounter Plan of Treatment Upcoming Encounters Date Type Specialty Care Team Description 09/12/2022 Imaging Radiology 10/26/2022 Office Visit Cardiology Yvon Harris PA-C [address] [place] [address] 11/14/2022 Office Visit Family Medicine Nhi Florian, DO [address] [place] [address] 01/18/2023 Nurse Only Ancillary [place]ine, Nurse Annual Wellness Scenery [address] [place] [address] Health Maintenance Due Date Last Done Comments DXA Scan 10/30/2020 10/30/2013, 10/20, 08/24/2009, Additional history exists COVID-19 Vaccine (4 - Booster for Moderna series) 07/02/2021 05/07/2021, 07/30/2020, 07/02/2020 CKD PHOS USE SMARTSET 60010 10/19/202209/21, 11/18/2019, 07/15/2019, Additional history exists Albumin/Creatinine Ratio 01/17/2023 01/17/2022, 03/23 Depression Screening, Annual for Pts 12 and Over 01/17/2023 01/17/2022 CKD HGB USE SMARTSET 73312 04/27/202304/27, 04/27/2022, 10/19/2021, Additional history exists DTaP,Tdap,and [...] (RLS) documented in this encounter Care Teams Human Resources Receptionist Relationship Specialty Start Date End Date Nhi Florian, DO [address] [facility] [place] [address] PCP - General Family Medicine 11/28/16 documented as of this encounter
--- OUTSIDE RECORDS SUMMARY | 2023-01-22 22:48 | External Medical Summary | Summary of Care ---
Author Name Unknown Organization [facility] Address [address] [place] [address] Phone [phone] Care Team Providers Care Silk Finisher Name Role Phone Bj Mario DO Primary Care Provider [phone] Reason for Visit * Reason Onset Date Comments Medication Question 07/29/2022 Encounter Details Date Type Department Care Team Description 07/29/2022 Telephone General Internal Medicine [facility] [address] [place] [address] Leonel Burns PA-C [address] [facility] [place] [address] Medication Question Allergies Active Allergy Reactions Severity Noted Date Comments Escitalopram 04/27/2022 "Didn't feel right" documented as of this encounter (statuses as of 07/29/2022) Medications Medication Sig Dispensed Refills Start Date [...] as of this encounter (statuses as of 07/29/2022) Active Problems Problem Noted Date Benign hypertension [...] DUS placed in the mid RCA at [facility] Asymptomatic bilateral carotid artery st enosis 06/10/2014 Raynaud phenomenon 06/13/2011 Knee joint replacement status 01/13/2011 Overview: 2014, right Dr Ricardo [facility] 2011: left Dr Priya Ricardo [facility] Dyslipidemia, goal LDL below 70 09/21/19 11 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 neurogenic claudication 02/17/2010 Vitamin D deficiency 10/13/2009 Chronic ischemic heart disease 0 S/P angioplasty with stent 06/30/2009 Overview: 07/01/2009 DUS in the RCA at [facility] Non-toxic multinodular goiter 04/21/2009 Overview: [...] as of this encounter (statuses as of 07/29/2022) Resolved Problems Problem Noted Date Resolved Date [...] as of this encounter (statuses as of 07/29/2022) Immunizations Name Administration Dates Next Due COVID-19 [...] Please advise. Thank you, Renée Schmitz CPhT Patrol Community Service Officer [facility] 07/29/2022, 10:10 AM documented in this encounter Plan of Treatment Upcoming Encounters Date Type Specialty Care Team Description 08/23/2022 Telemedicine Pain Medicine Cousins, Paul Weiss, DO [address] [place] [address] 10/26/2022 Office Visit Cardiology Yvon Harris PA-C [address] [place] [address] 11/14/2022 Office Visit Family Medicine Bj Mario, DO [address] [place] [address] 01/18/2023 Nurse Only [place]illary [place], Nurse Annual Wellness Scenery [address] [place] [address] Health Maintenance Due Date Last Done Comments DXA Scan 10/30/2020 10/30/2013, 10/20, 08/24/2009, Additional history exists COVID-19 Vaccine (4 - Booster for Moderna series) 07/02/2021 05/07/2021, 07/30/2020, 07/02/2020 CKD PHOS USE SMARTSET 01784 10/19/202209/21, 11/18/2019, 07/15/2019, Additional history exists Albumin/Creatinine Ratio 01/17/2023 01/17/2022, 03/23 Depression Screening, Annual for Pts 12 and Over 01/17/2023 01/17/2022 CKD HGB USE SMARTSET 66528 04/27/202304/27, 04/27/2022, 10/19/2021, Additional history exists DTaP,Tdap,and [...] claudication documented in this encounter Care Teams Silk Finisher Relationship Specialty Start Date End Date Bj Mario, DO [address] [place] [address] PCP - General Family Medicine 11/28/16 documented as of this encounter
--- OUTSIDE RECORDS SUMMARY | 2023-01-22 22:48 | External Medical Summary | Summary of Care ---
Author Name Unknown Organization [facility] Address [address] [address] Phone [phone] Care Team Providers Care Jewelry Engraver Name Role Phone Bj Mario DO Primary Care Provider [phone] Reason for Visit * Auth/Cert Specialty Diagnoses / Procedures Referred By Love gamboa Referred To Contact Diagnoses 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 neurogenic claudication 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 neurogenic claudication [M48.061] Procedures INJECT DX/THER SUBSTANCE INTERLAMINAR LUMBAR/SACRAL W IMAGE GUIDE INJECTION SPINE LUMBAR OR SACRAL Referral ID Status Reason Start Date Expiration Date Visits Re quested Visits Authorized [id number] Encounter Details Date Type Department Care Team Description 07/26/2022 Hospital Encounter OR [facility], Operating Room [facility] [address] [place] [address] Paul Berg DO [address] [place] [address] Allergies Active Allergy Reactions Severity Noted Date Comments Escitalopram 04/27/2022 "Didn't feel right" documented as of this encounter (statuses as of 07/26/2022) Medications Medication Sig Dispensed Refills Start Date [...] Active Rosuvastatin Calcium 20 MG Oral Tablet (Crestor)Indications :Dyslipidemia, goal LDL below 70 take 1 tablet by mouth once daily 90 Tablet 1 02/24/2022 Active Isosorbide Mononitrate ER 30 MG Oral Tablet Extended Release 24 Hour (Imdur)Indications:C hronic ischemic heart disease take 1 tablet by mouth once daily 100 Tablet 3 04/27/2022 Active Furosemide 20 MG Oral Tablet (Lasix)Indications:H TN, goal below 140/90 take 1 tablet by mouth once daily 90 Tablet 1 05/02/2022 Active traMADol HCl 50 MG Oral Tablet (Ultram)Indications: 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 neurogenic claudication,Cervica lgia Take 1 Tablet by mouth daily as [...] Additional Information Patient not taking.Reported on 07/26/2022 Gabapentin 100 MG Oral Capsule (Neurontin)Indicatio ns:Spinal stenosis of lumbar region with radiculopathy Take 1 Capsule by mouth in the morning and 1 Capsule in the evening. 60 Capsule 5 07/04/2022 Active Metoprolol Succinate ER 25 MG Oral Tablet Extended Release 24 Hour (toPROL XL)Indications:Chron ic ischemic heart disease take 1/2 tablet by mouth daily 45 Tablet 3 07/19/2022 Active documented as of this encounter (statuses as of 07/26/2022) Active Problems Problem Noted Date Benign hypertension [...] placed in the mid RCA at [facility] Asymptomatic bilateral carotid artery st enosis 06/10/2014 Raynaud phenomenon 06/13/2011 Knee joint replacement status 01/13/2011 Overview: 2014, right Dr Ricardo [facility] 2011: left Dr Pirya Ricardo [facility] Dyslipidemia, goal LDL below 70 09/21/19 11 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 neurogenic claudication 02/17/2010 Vitamin D deficiency 10/13/2009 Chronic ischemic heart disease 0 S/P angioplasty with stent 06/30/2009 Overview: 07/01/2009 DUS in the RCA at [facility] Non-toxic multinodular goiter 04/21/2009 Overview: [...] as of this encounter (statuses as of 07/26/2022) Resolved Problems Problem Noted Date Resolved Date [...] as of this encounter (statuses as of 07/26/2022) Immunizations Name Administration Dates Next Due COVID-19 [...] Sign Reading Time Taken Comments Blood Pressure 129/84 07/26/2022 9:55 AM EST Pulse 64 07/26/2022 9:55 AM EST Temperature 35.9 C (96.6 F) 07/26/2022 9:34 AM ES T Respiratory Rate 20 07/26/2022 9:55 AM EST Oxygen Saturation 100% 07/26/2022 9:55 AM EST Inhaled Oxygen Concentration - - Weight - - Height - - Body Mass Index - - documented in this encounter Discharge Instructions * Discharge Instr - AVS* Paul Berg, DO - 07/26/2022 9:51 AM EST Rayna Callahan [facility] [address] [place] [address] Discharge Date: 07/26/2022 [facility] at [phone] during business hours. For after-hours emergencies call 911. Your attending physician at the time of your discharge was: Paul Berg DO [address] [place] [address] The information below provides you with the instructions and the list of medications you need to betaking following discharge from the hospital. If you have any questions, please ask before leaving.Please carry this letter with you when you see your doctor in the clinic. Diet: Resume your normal diet If you are diabetic, follow your blood sugars closely for next 2-3 days as they are likely to be elevated. If you are having difficulty controlling your blood sugars call your family doctor or the physician that treats your diabetes. Activity: Do not engage in strenuous activity today Resume your normal activities tomorrow Do not soak in water for 24 hours. No swimming, hot tub or bath but showering is allowed. Do not use heat on the injection site for 24 hours. If uncomfortable ice may be helpful. Some injections may make your arms or legs weak for a few hours. Be extremely careful when walking or changing positions that you do not fall. Have someone assist you for the next 6 hours. If weakness or numbness becomes progressive CALL IMMEDIATELY or GO TO THE NEAREST EMERGENCY ROOM Keep a diary of your pain until seen in the office to help us determine how effective the injectionwas Do not restart physical therapy or chiropractic manipulation until 48 hours after your injection Call : If weakness or numbness suddenly becomes worse or become progressive If the injection site becomes red, swollen, warm to the touch, begins to bleed or drain fluid, or is excessively painful. If you have any questions Medications: Resume all the medications you were taking prior to your injection. Resume your anticoagulants tomorrow unless otherwise instructed by your family physician, recruiting specialist or the anticoagulation clinic. Additional Instructions: {NONE:[id number]} Driving: . Date you may return to work or school: Follow Up: Telemedicine visit in 4 weeks. documented in this encounter Progress Notes * Paul Leslieian DO [place] - 07/26/2022 9:51 AM EST [facility] [place] [address] [place] [address] OUTPATIENT SURGERY DISCHARGE SUMMARY NOTE Name: Eugenia Hu Location: OR [facility]/OR Date: 07/26/2022 Time: 9:51 AM Surgery Date: 07/26/2022 Procedure: Procedure(s): INJECTION SPINE LUMBAR OR SACRAL No laterality found for procedure #1 Surgeon: Surgeon(s): Paul Berg DO Discharge Diagnosis: Lumbar spinal stenosis After examination of this patient, I have determined she is ready for discharge to home when the patient meets criteria. Discharge instructions were given to the patient. documented in this encounter H&P Notes * Paul Berg DO - 07/26/2022 6:44 AM EST Interventional Pain Pre-Procedure Assessment Name:Eugenia Hu Date:07/26/2022 Time:6:44 AM Procedure(s): Caudal epidural steroid injection Diagnosis: Lumbar spinal stenosis Pre-Procedure Assessment: Prior to the procedure, the patient was identified. The patient's history, medications and allergies were reviewed . The patient is competent. The risks and benefits of the proposed procedure and theplanned sedation were discussed with the patient. All questions were answered and informed consent for the procedure was obtained. Prior to Admission medications Medication Sig Last Dose Discont. Metoprolol Succinate ER 25 MG Oral Tablet Extended Release 24 Hour (toPROL XL) take 1/2 tablet by mouth daily Gabapentin 100 MG Oral Capsule (Neurontin) Take 1 Capsule by mouth in the morning and 1 Capsule in the evening. Nitroglycerin 0.4 MG Sublingual Tablet Sublingual (Nitrostat) 1 every 5 min as needed with chest pain up to 3 doses in 15 minutes Lisinopril 10 MG Oral Tablet (Prinivil) take 1 tablet by mouth once daily Famotidine 20 MG Oral Tablet (Pepcid) Take 1 Tablet by mouth every night at bedtime. traMADol HCl 50 MG Oral Tablet (Ultram) Take 1 Tablet by mouth daily as needed for Pain, Severe. Furosemide 20 MG Oral Tablet (Lasix) take 1 tablet by mouth once daily Isosorbide Mononitrate ER 30 MG Oral Tablet Extended Release 24 Hour (Imdur) take 1 tablet by mouthonce daily rOPINIRole HCl 0.25 MG Oral Tablet (Requip) take 1 tablet by mouth at bedtime Rosuvastatin Calcium 20 MG Oral Tablet (Crestor) take 1 tablet by mouth once daily Timolol Maleate 0.5 % Ophthalmic Solution (Timoptic) instill 1 drop into both eyes every morning travoprost, MAYA Free, (TRAVATAN Z) 0.004 % ophthalmic solution instill 1 drop into both eyes every evening Diclofenac Sodium (VOLTAREN) 1 % gel Place 4 g topically on the skin 4 times a day. To affected area as directed. Acetaminophen 500 MG Oral Tablet Take 1 Tablet by mouth every 6 hours as needed for Pain. VITAMIN D 1000 UNIT PO CAPS 1 capsule daily ASPIRIN 81 MG PO CHEW One pill by mouth once a day with food Review of patient's allergies indicates: Allergen Reactions Lexapro [Escitalopram] "Didn't feel right" There were no vitals taken for this visit. Physical Exam: Mental Status Examination: alert and oriented. Airway Examination: normal oropharyngeal airway and neck mobility. Respiratory Examination: clear to auscultation. CV Examination: normal. ASA Grade: III - A patient with severe systemic disease. After reviewing the risks and benefits, the patient was deemed in satisfactory condition to undergothe procedure. The anesthesia plan was to use local anesthesia. Paul Berg DO 07/26/2022 documented in this encounter Nursing Notes * Lynn Loaiza RN - 07/26/2022 9:58 AM EST Pt to PACU II post procedure. Tolerated injection well. Visited by Dr. Berg post procedure. Instructions for discharge given and understood by patient. * Ilene Powers RN - 07/26/2022 9:49 AM EST Band aid applied to area patient transferred to pacu 11 via wheelchair * Ilene Powers RN - 07/26/2022 9:46 AM EST Patient tolerating pain management injection well. * Lynn Loaiza RN - 07/26/2022 9:39 AM EST Patient is present for pain management injection. documented in this encounter OR Notes * OR Surgeon - Paul Berg DO - 07/26/2022 9:51 AM EST OPERATIVE RECORD OR [facility], Operating Room [address] [address] Eugenia Hu : 1935 DOS: 07/26/2022 SERVICE: INTERVENTIONAL PAIN MANAGEMENT PRE-OP DIAGNOSIS: Lumbar spinal stenosis with neurogenic claudication. POST-OP DIAGNOSIS: Same. SURGEON: Paul Berg DO. ASSISTANTS: None. ANESTHESIA: 2 cubic centimeters of 1% lidocaine. OPERATION: Caudal epidural steroid injection. FINDINGS: No intraoperative findings. ESTIMATED BLOOD LOSS: None. DRAINS: There were no drains placed. FLUIDS: No IV fluids. URINE OUTPUT: None. SPECIMEN: No specimens collected. COMPLICATIONS: None. CONDITION: Good. INDICATIONS AND HISTORY: Eugenia Hu presents in anticipation of undergoing epidural steroidinjection for persistent low back and lower extremity radicular pain refractory to conservative treatment. The injection procedure was reviewed, as well as the risks of bleeding, infection, headache,nerve or spinal cord injury, worsening pain, or steroid side effects. DESCRIPTION OF OPERATION: After obtaining appropriate informed consent, Eugenia Hu was taken to the fluoroscopy suite, placed in a prone position. Time- out was taken to properly identify the patient and procedure, and the sacral hiatus was identified and the overlying skin sterilely preppedwith ChloraPrep and draped. 1% lidocaine, 2 cubic centimeters, was infiltrated in skin and subcutaneous tissue and a #25 gauge, 3-1/2 inch spinal needle was directed with fluoroscopic guidance through the sacral hiatus, into the sacral canal without pain or paresthesia. After negative aspiration for blood or cerebrospinal fluid, Omnipaque 180, 0.5 cubic centimeter was easily injected, showed appropriate epidural spread in P-A and lateral fluoroscopic views. There was no evidence of intravascular or subarachnoid spread of contrast. Kenalog 40 mg with 5 cubic centimeters of preservative-free normal saline was slowly and easily injected without pain. There was appropriate washout of contrast. The needle was removed. Patient tolerated procedure well. Eugenia Hu will be re-evaluated by telemedicine in approximately 4 weeks, and was given appropriate discharge instructions following postprocedure monitoring. Paul Berg DO 07/26/2022 9:51 AM documented in this encounter Plan of Treatment Upcoming Encounters Date Type Specialty Care Team Description 08/23/2022 Telemedicine Pain Medicine Paul Berg DO [address] [place] [address] 10/26/2022 Office Visit Cardiology Yvon Harris PA-C [address] [place] [address] 11/14/2022 Office Visit Family Medicine Bj Mario, DO [address] [place] [address] 01/18/2023 Nurse Only [place], Nurse [facility] [address] [place] [address] Scheduled Procedures Name Priority Associated Diagnoses Date/Ti me INJECTION SPINE LUMBAR OR SACRAL 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 neurogenic claudication 07/26/2022 9:45 AM EST Health Maintenance Due Date Last Done Comments DXA Scan 10/30/2020 10/30/2013, 10/20, 08/24/2009, Additional history exists COVID-19 Vaccine (4 - Booster for Moderna series) 07/02/2021 05/07/2021, 07/30/2020, 07/02/2020 CKD PHOS USE SMARTSET 05471 10/19/2022 05/05/2021, 11/18/2019, 07/15/2019, Additional history exists Albumin/Creatinine Ratio 01/17/2023 01/17/2022, 03/23 Depression Screening, Annual for Pts 12 and Over 01/17/2023 01/17/2022 CKD HGB USE SMARTSET 05550 04/27/202304/27, 04/27/2022, 10/19/2021, Additional history exists DTaP,Tdap,and [...] Not on filedocumented as of this encounter Procedures Procedure Name Priority Date/Time Associated Diagnosis Comments FLUORO INTERVENTIONAL PAIN PROCEDURE NONBILLABLE Routine 07/26/2022 9:53 AM EST documented in this encounter Results * FLUORO INTERVENTIONAL PAIN PROCEDURE NONBILLABLE (07/26/2022 9:53 AM EST) Narrative Scheduling, Silent - 07/26/2022 9:54 AM EST This procedure will not be read by a Radiologist. Please see operative note. Paul Berg DO RAD FLUOROSCOPY documented in this encounter Administered Medications Inactive Administered Medications - up to 3 most recent administrations Medication Order MAR Action Action Date Dose Rate Site Iohexol (Omnipaque 180) inj 1 mL 1 mL, Intravenous, ONCE, On 07/26/22 at 1015, For 1 dose Given 07/26/2022 9:47 AM EST 1 mL lidocaine 1 % inj 20 mg 20 mg (2 mL), Subcutaneous, ONCE, On 07/26/22 at 1015, For 1 dose Given 07/26/2022 9:46 AM EST 20 mg O ther-Specify Triamcinolone Acetonide (Kenalog) 40 MG/ML inj 40 mg 40 mg, Injection, ONCE, On 07/26/22 at 1015, For 1 dose Given 07/26/2022 9:47 AM EST 40 mg documented in this encounter Active and Recently Administered Medications Times are shown in EST. Scheduled Medication Order 07/24/2022 07/25/2022 07/26/2022 Iohexol (Omnipaque 180) inj 1 mL (COMPLETED) 1 mL, Intravenous, ONCE, On 07/26/22 at 1015, For 1 dose 0947 (Given - Provid er: Ilene Powers RN - Comment: CAUDAL) lidocaine 1 % inj 20 mg (COMPLETED) 20 mg (2 mL), Subcutaneous, ONCE, On 07/26/22 at 1015, For 1 dose 0946 (Given - Provid er: Ilene Powers RN - Comment: CAUDAL) Triamcinolone Acetonide (Kenalog) 40 MG/ML inj 40 mg (COMPLETED) 40 mg, Injection, ONCE, On 07/26/22 at 1015, For 1 dose 0947 (Given - Provid er: Ilene Powers RN - Comment: CAUDAL) documented in this encounter Care Teams Jewelry Engraver Relationship Specialty Start Date End Date Bj Mario, [address] [place] [address] PCP - General Family Medicine 11/28/16 documented as of this encounter
--- OUTSIDE RECORDS SUMMARY | 2023-01-22 22:48 | External Medical Summary | Summary of Care ---
Author Name Unknown Organization [facility] Address [address] [place] [address] Phone [phone] Care Team Providers Care Pocket And Pulley Machine Operator Name Role Phone Bj Mario DO Primary Care Provider [phone] Reason for Visit * Reason Comments Follow Up 6 month follow up. E eva in left leg ongoing but no worse then prior. SOB only up and down steps and long distances. Denies chest pain, palpitations, dizziness. Encounter Details Date Type Department Care Team Description 10/26/2022 Office Visit Cardiology, [facility] [address] [place] [address] Yvon Harris PA-C [address] [place] [id number] Chronic ischemic heart disease*; HTN, goal below 140/90; S/P angioplasty with stent; 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); Dyslipidemia, goal LDL below 70; PVC (premature ventricular contraction); Asymptomatic bilateral carotid artery stenosis Allergies Active Allergy Reactions Severity Noted Date Comments Escitalopram 04/27/2022 "Didn't feel right" documented as of this encounter (statuses as of 10/26/2022) Medications Medication Sig Dispensed Refills Start Date [...] Oral Tablet Extended Release 24 Hour (toPROL XL)Indications: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 120 Capsule 5 07/29/2022 Active Rosuvastatin Calcium 10 MG Oral Tablet (Crestor)Indication s:Dyslipidemia, goal LDL below 70 Take 1 Tablet by mouth in the morning. 90 Tablet 1 08/29/2022 Active rOPINIRole HCl 0.25 MG Oral Tablet (Requip)Indications :Restless legs syndrome take 1 tablet by mouth at bedtime 90 Tablet 1 08/29/2022 Active documented as of this encounter (statuses as of 10/26/2022) Active Problems Problem Noted Date Benign hypertension [...] DUS placed in the mid RCA at [facility] Asymptomatic bilateral carotid artery st enosis 06/10/2014 Raynaud phenomenon 06/13/2011 Knee joint replacement status 01/13/2011 Overview: 2014, right Dr Ricardo [facility] 2011: left Dr Priya Ricardo [facility] Dyslipidemia, goal LDL below 70 09/21/19 11 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 neurogenic claudication 02/17/2010 Vitamin D deficiency 10/13/2009 Chronic ischemic heart disease 0 S/P angioplasty with stent 06/30/2009 Overview: 07/01/2009 DUS in the RCA at [facility] Non-toxic multinodular goiter 04/21/2009 Overview: [...] as of this encounter (statuses as of 10/26/2022) Resolved Problems Problem Noted Date Resolved Date [...] as of this encounter (statuses as of 10/26/2022) Immunizations Name Administration Dates Next Due COVID-19 [...] Sign Reading Time Taken Comments Blood Pressure 128/78 10/26/2022 8:34 AM EDT Pulse 60 10/26/2022 8:34 AM EDT Temperature - - Respiratory Rate 17 10/26/2022 8:34 AM EDT Oxygen Saturation - - Inhaled Oxygen Concentration - - Weight 85.7 kg (189 lb) 10/26/2022 8:34 AM EDT Height - - Body Mass Index 34.02 07/04/2022 3:38 PM EST documented in this encounter Progress Notes * Yvon Harris PA-C - 10/26/2022 8:43 AM EDT History of Present Illness: Eugenia Hu is an 87-year-old female who returns today for cardiology follow-up evaluation. Patient returns today feeling relatively well from a cardiac standpoint. No reported chest pain. Stable exertional shortness of breath. No resting dyspnea. Stable chronic left greater than right lower extremity peripheral edema. Chronic stable back pain. Notes breaking down in utilizing a cane for her granddaughter's recent graduation from [employer]. Occasional heartburn, taking Tums as needed may be 5 per week. Self discontinued famotidine. No palpitations. No cough, chest congestion, orthopnea, or PND. No lightheadedness, dizziness, near syncope, or syncope. No epistaxis, hemoptysis, melena, hematochezia, or hematuria. No night sweats. History includes chest pain and abnormal adenosine stress testing leading to diagnostic cardiac catheterization on June 30, 2009 which demonstrated a 99% mid RCA stenosis with moderate non-obstructive disease observed elsewhere. Patient status post PTCA and stenting of the RCA with a drug-eluting stent. Abnormal Lexiscan in November 2010, prior to elective knee replacement, revealed a reversible defect consistent with inferior wall ischemia and a fixed defect involving the apex which lead to repeat cardiac catheterization on December 23, 2010 demonstrating a widely patent mid RCA stent with no progression in disease from the time of the prior cardiac catheterization (40% mid LAD stenosis, moderate irregularities of up to 50% in two separate areas within the midportion of the LCX. There was mild hypokinesis of the inferior wall at the base without otherwise reserved LV systolic function, EF 55%. Patient hospitalized at [facility] in June 2012 at which time she was seen by the undersigned as wellas Dr. Robert Kidd. She presented with atypical chest discomfort and was referred for exercise stress testing which was negative for ischemia at 99% age predicted maximal heart rate. Patient hospitalized in February 2014 with a right lower extremity deep venous thrombosis (post right knee replacement) which was treated with 3 months of Coumadin anticoagulation. At that time the patient was seen in cardiology consultation by Dr. Kidd secondary to atypical chest pain. Resting echo cardiography revealed a normal size left ventricle with mild concentric left ventricular hypertrophy. Left ventricular systolic function was normal, EF 60 to 65%. There was mild aortic valve sclerosis without significant stenosis, trace tricuspid regurgitation, no significant evidence to suggest pulmonary hypertension. The aortic root was noted to be normal in size. There was no pericardial effusion. She was referred for dobutamine stress echocardiography which was negative for pharmacologically induced myocardial ischemia at 95% age predicted maximum heart rate. Patient hospitalized in August 2016 secondary to possible aspiration at the time of outpatient colonoscopy to follow-up on the episode of acute diverticulotis in July 2016. Resting echocardiography was obtained due to an asymptomatic 6 beat run of ventricular tachycardia; borderline hypokalemia (3.6 mmol/L) and hypomagnesemia 1.6 mg/dL) were noted as was the use of albuterol via nebulization. TTE was interpreted by Dr. Kidd at [facility] on September 02, 2016 as demonstrating normal LV chamber size with mild concentric LVH. Left ventricular wall motion was normal. Systolic function was normal, EF 60 to 65%. The right ventricle was noted be normal in size and function. There was moderate aortic sclerosis without significant stenosis and trace mitral regurgitation observed. Hospitalized in July of 2018 with acute diverticulitis. Colonoscopy in September 2018 revealed diverticulosis as well as nonbleeding internal hemorrhoids. Repeat colonoscopy not recommended for screening purposes. EGD on January 30, 2019 revealed a large hiatal hernia and a nonobstructing Schatzki's ring that was dilated and biopsied. Additional problems include carotid disease without infarction, hypertension, hyperlipidemia, multinodular goiter, macular degeneration, glaucoma, and osteoarthritis with cervical and lumbar spinal stenosis, bilateral hip replacements, December 2010 uneventful left knee replacement, and November 2013 right knee replacement complicated by postop DVT. Patient Active Problem List Diagnosis Code Advance [...] CKD (chronic kidney disease) stage III (HCC) I12.9, N18.30 Past Medical History: Diagnosis Date Chronic kidney disease, stage 3b (HCC) 11/03/2020 Per CKD protocol Dyslipidemia, goal LDL below 100 Dyslipidemia, goal to be determined Hip joint replacement status 2000 right 2000, left 1992 HTN, goal below 140/90 HTN, goal below 140/90 05/25/2006 Knee joint replacement status 01/13/[address] Priya Ricarod [facility] Knee joint replacement status 12/15/2013 right [facility] Macular degeneration Ugo Simon MD Menopause 1974 Need for prophylactic hormone replacement therapy (postmenopausal) 1974 Non-toxic multinodular goiter 04/2009 seen on US, repeat -10/2009 Other screening mammogram 10/24/03 Birad Code 2 Other specified glaucoma both eyes, Paul Simon MD, drops used, timolol S/P angioplasty with stent 06/30/09 [facility] Status post insertion of drug eluting coronary artery stent 04/07/20152009, DUS placed in the mid RCA at [facility] Vitamin D deficiency 10/13/2009 Past Surgical History: Procedure Laterality Date ARTHROPLASTY KNEE TOTAL Left 01/13/2011 Left, Dr Priya Ricardo [place] ARTHROPLASTY KNEE TOTAL Right 12/16/13 Right, Dr Priya Ricardo [facility] CARDIAC CATH SCANNED RESULT 06/30/2009 DUS placed in right coronary, [facility] CARPAL TUNNEL SURGERY Bilateral 2014 bilateral COLONOSCOPY 03/22/2006 normal repeat in 2015 COLONOSCOPY, DIAGNOSTIC (RECTUM) 09/01/2016 diverticulosis/COLONOSCOPY FLEXIBLE PROXIMAL DIAGNOSTIC performed by Kaylie Ford MD at [facility] COLONOSCOPY, DIAGNOSTIC (RECTUM) 10/09/2018 diverticulosis/[facility] COLONOSCOPY, GI REFERRAL OP 03/22/2005 diverticulosis, repeat in 10 years for surveillance reasons COLORECTAL CANCER SCREEN;W/FLE 1999 normal, Dr Estrella DENTAL SURGERY PROCEDURE NEC 1970 Dental Surgery Procedure tumor benign palate DEXA SCAN/BONE MINERAL AXIAL 07/2002 normal, repeat 2007 DEXA SCAN/BONE MINERAL AXIAL 07/20/2006 normal repeat in 6-8 years EGD, FLEXIBLE, DIAGNOSTIC 01/30/2019 acid reflux, Schatzki ring, hiatal hernia / [facility] EXERCISE ECHO 09/02/2002 normal, Dr Genao INJECT DX/THER SUBSTANCE INTERLAMINAR LUMBAR/SACRAL W IMAGE GUIDE 01/18/2018 INJECTION SPINE LUMBAR OR SACRAL performed by Paul B Cousins, DO at [facility] INJECT DX/THER SUBSTANCE INTERLAMINAR LUMBAR/SACRAL W IMAGE GUIDE 02/12/2018 INJECTION SPINE LUMBAR OR SACRAL performed by Paul Azam Cousins, DO at [facility] INJECT DX/THER SUBSTANCE INTERLAMINAR LUMBAR/SACRAL W IMAGE GUIDE 12/27/2018 INJECTION SPINE LUMBAR OR SACRAL performed by Paul Azam Cousins, DO at [facility] INJECT DX/THER SUBSTANCE INTERLAMINAR LUMBAR/SACRAL W IMAGE GUIDE 02/21/2019 INJECTION SPINE LUMBAR OR SACRAL performed by Paul Azam Cousins, DO at [facility] INJECT DX/THER SUBSTANCE INTERLAMINAR LUMBAR/SACRAL W IMAGE GUIDE 08/06/2020 INJECTION SPINE LUMBAR OR SACRAL performed by Paul Weiss Cousins, DO at [facility] INJECT DX/THER SUBSTANCE INTERLAMINAR LUMBAR/SACRAL W IMAGE GUIDE 02/16/2022 INJECTION SPINE LUMBAR OR SACRAL performed by Paul Weiss Cousins, DO at [facility] INJECT DX/THER SUBSTANCE INTERLAMINAR LUMBAR/SACRAL W IMAGE GUIDE 07/26/2022 INJECTION SPINE LUMBAR OR SACRAL performed by Paul Weiss Cousins, DO at [facility] MAMMOGRAM - BILATERAL 2.1.02 negative finding. birad code 1 MAMMOGRAM - BILATERAL 4.25.03 negative findings, yearly mammograms appropriate, birad code 1-diffuse scattered calcifications MAMMOGRAM - BILATERAL 04/10/07 birad code 2 MAMMOGRAM SCREENING-BILATERAL 03/02/05 benign findings, yearly mammograms appropriate, birad code 2 MAMMOGRAM SCREENING-BILATERAL 10.13.06 benign findings, yearly mammograms appropriate, birad code 2 MAMMOGRAM SCREENING-BILATERAL 07/03/08 birad code 2 NUCLEAR SCAN OF HEART MUSCLE 05/31/09, 11/23/10 abnormal PARTIAL HYSTERECTOMY 1974 one ovary left in, Dr Chakraborty in [facility] REMOVE CATARACT, INSERT LENS PROSTH Right 01/05/[address] Messi Simon REMOVE CATARACT, INSERT LENS PROSTH Left 01/28/[address] Messi Simon STENT, COATED/COVERED, WITH DELIVERY SYSTEM 06/30/2009 [employer] [facility] Eluding Stent [facility] TOTAL HIP REPLACEMENT & PROSTHESIS 1992 left, Dr Ricardo TOTAL HIP REPLACEMENT & PROSTHESIS 10/2000 right , Dr Ricardo at [facility] Family History Problem Relation Age of Onset Bone cancer Mother Lung Disorder Father Heart disease Father Heart failure Father old age with heart failure No Known Problems Daughter No Known Problems Daughter Heart attack Brother 62 Lung Disorder Brother smoker Heart attack Brother age 62 Heart disease Brother angina No Known Problems Son Breast Cancer No significant family history 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, [employer]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: Employer: [employer] Social Needs Financial resource strain: Not on file Food insecurity: Worry: Not on file Inability: Not on file Transportation needs: Medical: Not on file Non-medical: Not on file Tobacco Use Smoking status: Never Smoker Smokeless tobacco: Never Used Substance and Sexual Activity Alcohol use: Yes Comment: occ Drug use: No Sexual activity: Yes Partners: Male Lifestyle Physical activity: Days per week: Not on file Minutes per session: Not on file Stress: Not on file Relationships Social connections: Talks on phone: Not on file Gets together: Not on file Attends restoration service: Not on file Active member of club or organization: Not on file Attends meetings of clubs or organizations: Not on file Relationship status: Not on file Intimate partner violence: Fear of current or ex partner: Not on file Emotionally abused: Not on file Physically abused: Not on file Forced sexual activity: Not on file Other Topics Concern Service No Blood Transfusions No Caffeine Concern Not Asked Occupational Exposure Not Asked Hobby Hazards Not Asked Sleep Concern Not Asked Stress Concern Not Asked Weight Concern Not Asked Special Diet Not Asked Back Care Not Asked Exercise Not Asked Bike Helmet Not Asked Seat Belt Not Asked Self-Exams Not Asked Social History Narrative born [place] in [facility] since 1953 ; 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 Complete Review of Systems: See above. Otherwise negative or noncontributory. Review of patient's allergies indicates: Allergen Reactions Lexapro [Escitalopram] "Didn't feel right" Outpatient Medications Marked as Taking for the 10/26/22 encounter (Office Visit) with Yvon Harris PA-C Medication Sig rOPINIRole HCl 0.25 MG Oral Tablet (Requip) take 1 tablet by mouth at bedtime Rosuvastatin Calcium 10 MG Oral Tablet (Crestor) Take 1 Tablet by mouth in the morning. Gabapentin 100 MG Oral Capsule (Neurontin) Take 2 Capsules by mouth in the morning and 2 Capsules in the evening. Metoprolol Succinate ER 25 MG Oral Tablet Extended Release 24 Hour (toPROL XL) take 1/2 tablet by mouth daily Lisinopril 10 MG Oral Tablet (Prinivil) take [...] times a day. To affectedarea as directed. Acetaminophen 500 MG Oral Tablet Take 1 Tablet by mouth every 6 hours as needed for Pain. VITAMIN D 1000 UNIT PO CAPS 1 capsule daily ASPIRIN 81 MG PO CHEW One pill by mouth once a day with food OBJECTIVE/PHYSICAL EXAMINATION: BP 128/78 | Pulse 60 | Resp 17 | Wt 85.7 kg (189 lb) | BMI 34.02 kg/m | BSA 1.94 m General: NAD. HENT: Normocephalic. Atraumatic. Eyes: PER. Conjunctiva pink, sclera clear. Neck: Bilateral carotid bruits. No JVD. Heart: RRR, 66 bpm. Soft systolic murmur. Lungs: Clear to auscultation. Abdomen: +BS. Soft. Nontender. No masses or organomegaly. Extremities: Mild left lower extremity edema. No clubbing. No cyanosis. Pulses: radial=2/4, posterior tibial=1/4 on the left and nonpalpable on the right. Additional Data: August 28, 2017 DSE Interpretation Summary (as per Dr. Kidd): The stress echo is negative for inducible ischemia. There was an adequate and appropriate heart rate and blood pressure response to the dobutamine/atropine stress protocol. No symptoms were noted. The stress EKG response showed no evidence of ischemia. Occasional PVCs were noted with stress. Nonsustained supraventricular tachycardia wasnoted during stress. The left ventricular wall motion is normal. The left ventricular ejection fraction increases normally with stress. The left ventricular wall motion with stress is normal. The left ventricular cavity size is normal. The LV wall thickness is moderately increased (concentric). Thebasal septum is thickened and angulated consistent with sigmoid septum. The qualitative LV ejectionfraction is 60-64% (normal). Moderate aortic valve sclerosis is present. Prior described VSD not visible on current study. ASSESSMENT: 1. ASCVD. Stable. 2. Hypertension, well controlled. 3. Hyperlipidemia. LDL cholesterol 63 mg/dL on 04/27/2022. 4. Bilateral internal carotid artery disease, without infarction, asymptomatic. Carotid duplex in March 2020 revealed mild right internal carotid artery disease, 50 to 69% left internal carotid artery disease, unchanged dating back to January 2015. 5. Asymptomatic ectopy 6. Chronic kidney disease. 7. Primary hyperparathyroidism. Previously followed [place] [facility]. 8. Degenerative disc disease, spinal stenosis, status post injection RECOMMENDATIONS/PLAN: Recommend resumption of famotidine for GI protection given medications and history of large hiatal hernia. Carotid duplex to be obtained prior to next evaluation. Continue conservative medical management of the patient's CAD. Cardiology follow-up in 6 months time or as needed.ER with emergencies. Yvon Harris PA-C Department of Cardiology This chart was completed in part utilizing [employer] Speech Voice Recognition Software. Grammatical errors, random word insertions, prounoun errors, and incomplete sentences are an occasional consequence of this system due to software limitations, ambient noise, and hardware issues. Any formal questions or concerns about the content, text, or information contained within the body of this dictation should be directly addressed to the provider for clarification. documented in this encounter Nursing Notes * Stanley Felix LPN - 10/26/2022 8:33 AM EDT Patient identified by full name and date of Chief Complaint Patient presents with Follow Up 6 month follow up. Edema in left leg ongoing but no worse then prior. SOB only up and down steps and long distances. Denies chest pain, palpitations, dizziness. Examination Room: 3 Name: Eugenia Hu Date of : (1935). Reason for Visit: 6 month follow up Interim Hospitalization(s): Denies Problems/Concerns: See chief complaint Chest Pain/SOB: See chief complaint [facility] Discussed: Not applicable [facility] is a way you can talk to your provider online through e-mail. Would you like to sign up? I can activate it for you? DECLINES Patient was instructed to not get up on the exam table until directed and assisted by their provider; patient is to remain seated in the chair/ wheelchair/ exam table for fall prevention and safety reasons. Patient is aware to have assistance to step down off exam table with personnel. Patient voiced full comprehension of instructions. documented in this encounter Plan of Treatment Upcoming Encounters Date Type Specialty Care Team Description 11/14/2022 Office Visit Family Medicine Bj Mario, DO [address] [place] [id number] 01/18/2023 Nurse Only Ancillary Nurse [facility] [address] [place] [id number] 04/20/2023 Imaging Radiology 04/27/2023 Office Visit Cardiology Yvon Harris PA-C [address] [place] [id number] Scheduled Orders Name Type Priority Associated Diagnoses Orde r Schedule VASC DUPLEX CAROTID BILAT Medical Imaging Routine Asymptomatic bilateral carotid artery stenosis Expected: 04/27/2023, Expires: 11/26/2023 Health Maintenance Due Date Last Done Comments DXA Scan 10/30/2020 10/30/2013, 10/20, 08/24/2009, Additional history exists COVID-19 Vaccine (4 - Booster for Moderna series) 07/02/2021 05/07/2021, 07/30/2020, 07/02/2020 CKD PHOS USE SMARTSET [id number] 10/19/202209/21, 11/18/2019, 07/15/2019, Additional history exists Albumin/Creatinine Ratio 01/17/2023 01/17/2022, 03/23 Depression Screening, Annual for Pts 12 and Over 01/17/2023 01/17/2022 CKD HGB USE SMARTSET [id number] 04/27/202304/27, 04/27/2022, 10/19/2021, Additional history exists DTaP,Tdap,and [...] as of this encounter Visit Diagnoses Diagnosis Chronic ischemic heart disease- Primary Chronic ischemic heart disease, unspecified HTN, goal below 140/90 Unspecified essential hypertension S/P angioplasty with stent Postsurgical percutaneous transluminal coronary angioplasty status 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 I through stage IV, or unspecified Dyslipidemia, goal LDL below 70 Other and unspecified hyperlipidemia PVC (premature ventricular contraction) Other premature beats Asymptomatic bilateral carotid artery stenosis Occlusion and stenosis of multiple and bilateral precerebral arteries without mention of cerebral infarction documented in this encounter Care Teams Pocket And Pulley Machine Operator Relationship Specialty Start Date End Date Bj Mario, DO [address] [place] [address] PCP - General Family Medicine 11/28/16 documented as of this encounter
--- OUTSIDE RECORDS SUMMARY | 2023-01-22 22:48 | External Medical Summary | Summary of Care ---
Author Name Unknown Organization [facility] Address [address] [facility] [place] [address] Phone [phone] Care Team Providers Care Unit Secretary Name Role Phone Nhi Florian DO Primary Care Provider [phone] Reason for Visit * Reason Comments eRx-Medication Refill Encounter Details Date Type Department Care Team Description 08/27/2022 Refill Family Practice [facility] [place] [address] [place] [address] Nhi Florian DO [address] [place] [address] Dyslipidemia, goal LDL below 70; Restless legs syndrome Allergies Active Allergy Reactions Severity Noted Date Comments Escitalopram 04/27/2022 "Didn't feel right" documented as of this encounter (statuses as of 08/31/2022) Medications Medication Sig Dispensed Refills Start Date [...] as of this encounter (statuses as of 08/31/2022) Active Problems Problem Noted Date Benign hypertension [...] in the mid RCA at [facility] Asymptomatic bilateral carotid artery st enosis 06/10/2014 Raynaud phenomenon 06/13/2011 Knee joint replacement status 01/13/2011 Overview: 2014, right Dr Ricardo [facility] 2011: left Dr Priya Ricardo [facility] Dyslipidemia, goal LDL below 70 09/21/19 11 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 neurogenic claudication 02/17/2010 Vitamin D deficiency 10/13/2009 Chronic ischemic heart disease 0 S/P angioplasty with stent 06/30/2009 Overview: 07/01/2009 DUS in the RCA at [facility] Non-toxic multinodular goiter 04/21/2009 Overview: seen on [...] as of this encounter (statuses as of 08/31/2022) Resolved Problems Problem Noted Date Resolved Date [...] as of this encounter (statuses as of 08/31/2022) Immunizations Name Administration Dates Next Due COVID-19 [...] Thank you for your assistance Franci Armstrong [employer] [facility] 08/31/2022,9:26 AM * Telephone Encounter - Austin Cleveland [facility] - 08/30/2022 2:16 PM EDT Called patient to update but had to leave VM. Also, labs reordered to be tested. Thanks, Austin Cleveland, PharmD Clinical Pharmacist [facility] [phone] 08/30/2022, 2:16 PM * Telephone Encounter - [...] FLORIAN * Telephone Encounter - Austin Cleveland [facility] - 08/29/2022 2:42 PM EDT Pending Prescriptions: Disp Refills Rosuvastatin Calcium 10 MG Oral Tablet (Cr*90 Tab*1 Sig: Take 1 Tablet by mouth in the morning. rOPINIRole HCl 0.25 MG Oral Tablet (Requip)90 Tab*1 Sig: take 1 tablet by mouth at bedtime * Telephone Encounter - Austin Cleveland [facility] - 08/29/2022 2:39 PM EDT Serum creatinine: [...] Thanks, Austin Cleveland, PharmD Clinical Pharmacist [facility] [phone] 08/29/2022, 2:42 PM documented in this encounter Plan of Treatment Upcoming Encounters Date Type Specialty Care Team Description 09/12/2022 Imaging Radiology 10/26/2022 Office Visit Cardiology Yvon Harris PA-C [address] [place] [address] 11/14/2022 Office Visit Family Medicine Nhi Florian, [address] [place] [address] 01/18/2023 Nurse Only Ancillary Park, Nurse Annual Well[facility] Scenery [address] [place] [address] Health Maintenance Due Date Last Done Comments DXA Scan 10/30/2020 10/30/2013, 10/20, 08/24/2009, Additional history exists COVID-19 Vaccine (4 - Booster for Moderna series) 07/02/2021 05/07/2021, 07/30/2020, 07/02/2020 CKD PHOS USE SMARTSET 03286 10/19/202209/21, 11/18/2019, 07/15/2019, Additional history exists Albumin/Creatinine Ratio 01/17/2023 01/17/2022, 03/23 Depression Screening, Annual for Pts 12 and Over 01/17/2023 01/17/2022 CKD HGB USE SMARTSET 44944 04/27/202304/27, 04/27/2022, 10/19/2021, Additional history exists DTaP,Tdap,and [...] (RLS) documented in this encounter Care Teams Unit Secretary Relationship Specialty Start Date End Date Nhi Florian, DO [address] [place] [address] PCP - General Family Medicine 11/28/16 documented as of this encounter
--- OUTSIDE RECORDS SUMMARY | 2023-01-22 22:48 | External Medical Summary | Summary of Care ---
Author Name Unknown Organization [facility] Address [address] [facility] [place] [address] Phone [phone] Care Team Providers Care Commission Auditor Name Role Phone Nhi Florian DO Primary Care Provider [phone] Reason for Visit * Reason Comments eRx-Medication Refill Encounter Details Date Type Department Care Team Description 08/27/2022 Refill Family Practice [facility] [place] [address] [place] [address] Nhi Florian DO [address] [place] [address] Dyslipidemia, goal LDL below 70; Restless legs syndrome Allergies Active Allergy Reactions Severity Noted Date Comments Escitalopram 04/27/2022 "Didn't feel right" documented as of this encounter (statuses as of 08/30/2022) Medications Medication Sig Dispensed Refills Start Date [...] as of this encounter (statuses as of 08/30/2022) Active Problems Problem Noted Date Benign hypertension [...] DUS placed in the mid RCA at [facility] Asymptomatic bilateral carotid artery st enosis 06/10/2014 Raynaud phenomenon 06/13/2011 Knee joint replacement status 01/13/2011 Overview: 2014, right Dr Ricardo [facility] 2011: left Dr Priya Ricardo [facility] Dyslipidemia, goal LDL below 70 09/21/19 11 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 neurogenic claudication 02/17/2010 Vitamin D deficiency 10/13/2009 Chronic ischemic heart disease 0 S/P angioplasty with stent 06/30/2009 Overview: 07/01/2009 DUS in the RCA at [facility] Non-toxic multinodular goiter 04/21/2009 [...] as of this encounter (statuses as of 08/30/2022) Resolved Problems Problem Noted Date Resolved Date [...] as of this encounter (statuses as of 08/30/2022) Immunizations Name Administration Dates Next Due COVID-19 [...] encounter Miscellaneous Notes * Telephone Encounter - Austin Cleveland [facility] - 08/30/2022 2:16 PM EDT Called patient to update but had to leave . Also, labs reordered to be tested. Thanks, Austin Cleveland, PharmD Clinical Pharmacist [facility] [phone] 08/30/2022, 2:16 PM * Telephone Encounter - [...] FLORIAN * Telephone Encounter - Austin Cleveland [facility] - 08/29/2022 2:42 PM EDT Pending Prescriptions: Disp Refills Rosuvastatin Calcium 10 MG Oral Tablet (Cr*90 Tab*1 Sig: Take 1 Tablet by mouth in the morning. rOPINIRole HCl 0.25 MG Oral Tablet (Requip)90 Tab*1 Sig: take 1 tablet by mouth at bedtime * Telephone Encounter - Austin Cleveland [facility] - 08/29/2022 2:39 PM EDT Serum creatinine: [...] agreeable. Thanks, Austin Cleveland, PharmD Clinical Pharmacist [facility] [phone] 08/29/2022, 2:42 PM documented in this encounter Plan of Treatment Upcoming Encounters Date Type Specialty Care Team Description 09/12/2022 Imaging Radiology 10/26/2022 Office Visit Cardiology Yvon Harris PA-C [address] [place] [address] 11/14/2022 Office Visit Family Medicine Nhi Florian, [address] [place] [address] 01/18/2023 Nurse Only Ancillary Park, Nurse Annual Wellness Scenery [address] [place] [address] Health Maintenance Due Date Last Done Comments DXA Scan 10/30/2020 10/30/2013, 10/20, 08/24/2009, Additional history exists COVID-19 Vaccine (4 - Booster for Moderna series) 07/02/2021 05/07/2021, 07/30/2020, 07/02/2020 CKD PHOS USE SMARTSET 70258 10/19/202209/21, 11/18/2019, 07/15/2019, Additional history exists Albumin/Creatinine Ratio 01/17/2023 01/17/2022, 03/23 Depression Screening, Annual for Pts 12 and Over 01/17/2023 01/17/2022 CKD HGB USE SMARTSET 94489 04/27/202304/27, 04/27/2022, 10/19/2021, Additional history exists DTaP,Tdap,and [...] (RLS) documented in this encounter Care Teams Commission Auditor Relationship Specialty Start Date End Date Nhi Florian, DO [address] [place] [address] PCP - General Family Medicine 11/28/16 documented as of this encounter
--- OUTSIDE RECORDS SUMMARY | 2023-01-22 22:48 | External Medical Summary | Summary of Care ---
Author Name Unknown Organization [facility] Address [address] [facility] [address] Phone [phone] Care Team Providers Care Lead Presser Name Role Phone Bj Mario Primary Care Provider [phone] Reason for Visit * Reason Comments Lumbar Pain W/radiation Encounter Details Date Type Department Care Team Description 08/23/2022 Telemedicine Interventional [facility], [facility] [address] [place] [address] Cousins Pual LeslieianDO [address] [place] [address] Spinal stenosis of lumbar region with neurogenic claudication* Allergies Active Allergy Reactions Severity Noted Date Comments Escitalopram 04/27/2022 "Didn't feel right" documented as of this encounter (statuses as of 08/23/2022) Medications Medication Sig Dispensed Refills Start Date [...] Oral Tablet Extended Release 24 Hour (toPROL XL)Indications:Bulk Fluids Handler jose alberto ischemic heart disease take 1/2 tablet by mouth daily 45 Tablet 3 07/19/2022 Active Gabapentin 100 MG Oral Capsule (Neurontin)Indicati ons:Spinal stenosis of lumbar region with radiculopathy Take 2 Capsules by mouth in the morning and 2 Capsules in the evening. 120 Capsule 5 07/29/2022 Active documented as of this encounter (statuses as of 08/23/2022) Active Problems Problem Noted Date Benign hypertension [...] as of this encounter (statuses as of 08/23/2022) Resolved Problems Problem Noted Date Resolved Date [...] as of this encounter (statuses as of 08/23/2022) Immunizations Name Administration Dates Next Due COVID-19 [...] on file documented as of this encounter Progress Notes * Paul Abhishek Cousins, DO - 08/23/2022 10:51 AM EDT Name: Eugenia uH Date: 08/23/2022 HPI: Eugenia Hu is a 87 year old female who presents for telephonic visit. After connecting to the patient via telephone, the patient was identified by name and date of . Patient was then informed that this was a telephone call only visit. The patient agreed to participate. Visit Disposition: Routine follow-up Total call duration was 5 minutes. Moderate improvement following caudal JACKIE, 4 weeks ago. Minimal leg pain now. More active. History: Past Medical History: Diagnosis Date Chronic kidney disease, stage 3b (HCC) 11/03/2020 Per CKD protocol Dyslipidemia, goal LDL below 100 Dyslipidemia, goal to be determined Hip joint replacement status 2001 right 2000, left 1992 HTN, goal below 140/90 HTN, goal below 140/90 05/25/2006 Knee joint replacement status 01/13/[address] Priya Ricardo [facility] Knee joint replacement status 12/15/2013 right [facility] Macular degeneration Ugo Simon MD Menopause 1974 Need for prophylactic hormone replacement therapy (postmenopausal) 1974 Non-toxic multinodular goiter 04/2009 seen on US, repeat -10/2009 Other screening mammogram 10/24/03 Birad Code 2 Other specified glaucoma both eyes, Paul Simon MD, drops used, timolol S/P angioplasty with stent 06/30/09 [facility] Status post insertion of drug eluting coronary artery stent 04/07/20152009, DUS placed in the mid RCA at [facility] Vitamin D deficiency 10/13/2009 Past Surgical History: Procedure Laterality Date ARTHROPLASTY KNEE TOTAL Left 01/13/2011 Left, Dr Priya Ricardo [facility] ARTHROPLASTY KNEE TOTAL Right 12/16/13 Right, Dr Priya Ricardo [facility] CARDIAC CATH SCANNED RESULT 06/30/2009 DUS placed in right coronary, [facility] CARPAL TUNNEL SURGERY Bilateral 2014 bilateral COLONOSCOPY 03/22/2006 normal repeat in 2015 COLONOSCOPY, DIAGNOSTIC (RECTUM) 09/01/2016 diverticulosis/COLONOSCOPY FLEXIBLE PROXIMAL DIAGNOSTIC performed by Kaylie Ford MD at ENDOSCOPY [facility] COLONOSCOPY, DIAGNOSTIC (RECTUM) 10/09/2018 diverticulosis/[facility] COLONOSCOPY, GI REFERRAL OP 03/22/2005 diverticulosis, repeat in 10 years for surveillance reasons COLORECTAL CANCER SCREEN;W/FLE 1999 normal, Dr Estrella DENTAL SURGERY PROCEDURE NEC 1970 Dental Surgery Procedure tumor benign palate DEXA SCAN/BONE MINERAL AXIAL 07/2002 normal, repeat 2007 DEXA SCAN/BONE MINERAL AXIAL 07/20/2006 normal repeat in 6-8 years EGD, FLEXIBLE, DIAGNOSTIC 01/30/2019 acid reflux, Schatzki ring, hiatal hernia / [facility] EXERCISE ECHO 09/02/2002 normal, Dr Genao INJECT DX/THER SUBSTANCE INTERLAMINAR LUMBAR/SACRAL W IMAGE GUIDE 01/18/2018 INJECTION SPINE LUMBAR OR SACRAL performed by Paul Berg, DO at [facility] INJECT DX/THER SUBSTANCE INTERLAMINAR LUMBAR/SACRAL W IMAGE GUIDE 02/12/2018 INJECTION SPINE LUMBAR OR SACRAL performed by Paul Azam Berg, DO at [facility] INJECT DX/THER SUBSTANCE INTERLAMINAR LUMBAR/SACRAL W IMAGE GUIDE 12/27/2018 INJECTION SPINE LUMBAR OR SACRAL performed by [facility] Robbis, DO at [facility] INJECT DX/THER SUBSTANCE INTERLAMINAR LUMBAR/SACRAL W IMAGE GUIDE 02/21/2019 INJECTION SPINE LUMBAR OR SACRAL performed by Paul Nascimento Cousins, DO at [facility] INJECT DX/THER [...] one ovary left in, Dr Chakraborty in [facility] REMOVE CATARACT, INSERT LENS PROSTH Right 01/05/[address] Messi Simon REMOVE CATARACT, INSERT LENS PROSTH Left 01/28/[address] Messi iSmon STENT, COATED/COVERED, WITH DELIVERY SYSTEM 06/30/2009 [employer] Eluding Stent [facility] TOTAL HIP REPLACEMENT & PROSTHESIS 1992 left, Dr Ricardo TOTAL HIP REPLACEMENT & PROSTHESIS 10/2000 right , Dr Ricardo at [facility] Current Outpatient Medications Medication Sig Dispense Refill [...] 1 drop into both eyes every morning rOPINIRole HCl 0.25 MG Oral Tablet (Requip) take 1 tablet by mouth at bedtime 90 Tablet 1 Rosuvastatin Calcium 20 MG Oral Tablet (Crestor) take 1 tablet by mouth once daily 90 Tablet 1 Isosorbide Mononitrate ER 30 MG Oral Tablet Extended Release 24 Hour (Imdur) take 1 tablet by mouth once daily 100 Tablet 3 Furosemide 20 MG Oral Tablet (Lasix) take [...] up to 3 doses in 15 minutes (Patient not taking: Reported on 07/26/2022) 25 Tablet 11 Metoprolol Succinate ER 25 MG Oral Tablet Extended Release 24 Hour (toPROL XL) take 1/2 tablet by mouth daily 45 Tablet 3 Gabapentin 100 MG Oral Capsule (Neurontin) Take 2 Capsules by mouth in the morning and 2 Capsules in the evening. 120 Capsule 5 No current facility-administered medications for this visit. Review of patient's allergies indicates: Allergen Reactions Lexapro [Escitalopram] "Didn't feel right" Social History Tobacco Use Smoking Status Never Smokeless Tobacco Never Social History Substance and Sexual Activity Alcohol Use Yes Comment: now and then ASSESSMENT: Lumbar radicular pain Lumbar spinal stenosis RECOMMENDATION: I will see her if symptoms worsen again. Paul Berg DO 08/23/2022 10:51 AM documented in this encounter Plan of Treatment Upcoming Encounters Date Type Specialty Care Team Description 09/12/2022 Imaging Radiology 10/26/2022 Office Visit Cardiology Yvon Harris PA-C [address] [place] [address] 11/14/2022 Office Visit Family Medicine Bj Mario DO [address] [place] [address] 01/18/2023 Nurse Only Ancillary Nurse Pauline Annual Wellness Scenery [address] [facility] [place] [address] Health Maintenance Due Date Last Done Comments DXA Scan 10/30/2020 10/30/2013, 10/20, 08/24/2009, Additional history exists COVID-19 Vaccine (4 - Booster for Moderna series) 07/02/2021 05/07/2021, 07/30/2020, 07/02/2020 CKD PHOS USE SMARTSET 26079 10/19/202209/21, 11/18/2019, 07/15/2019, Additional history exists Albumin/Creatinine Ratio 01/17/2023 01/17/2022, 03/23 Depression Screening, Annual for Pts 12 and Over 01/17/2023 01/17/2022 CKD HGB USE SMARTSET 03067 04/27/202304/27, 04/27/2022, 10/19/2021, Additional history exists DTaP,Tdap,and [...] Diagnosis Spinal stenosis of lumbar region with neurogenic claudication- Primary Spinal stenosis, lumbar region, with neurogenic claudication documented in this encounter Care Teams Lead Presser Relationship Specialty Start Date End Date Bj Mario, DO [address] [place] [address] PCP - General Family Medicine 11/28/16 documented as of this encounter
--- OUTSIDE RECORDS SUMMARY | 2023-01-22 22:48 | External Medical Summary | Summary of Care ---
Author Name Unknown Organization [facility] Address [address] [place] [address] Phone [phone] Care Team Providers Care Fast Food Server Name Role Phone Bj Mario DO Primary Care Provider [phone] Reason for Visit * Reason Onset Date Comments Test Results 09/15/2022 Encounter Details Date Type Department Care Team Description 09/15/2022 Telephone Family Practice [facility] [address] [place] [address] Bj Mario DO [address] [facility] [place] [address] Test Results Allergies Active Allergy Reactions Severity Noted Date Comments Escitalopram 04/27/2022 "Didn't feel right" documented as of this encounter (statuses as of 09/15/2022) Medications Medication Sig Dispensed Refills Start Date [...] Oral Tablet Extended Release 24 Hour (toPROL XL)Indications:Lambskin Trimmer jose alberto ischemic heart disease take 1/2 [...] as of this encounter (statuses as of 09/15/2022) Active Problems Problem Noted Date Benign hypertension [...] DUS placed in the mid RCA at [facility] Asymptomatic bilateral carotid artery st enosis 06/10/2014 Raynaud phenomenon 06/13/2011 Knee joint replacement status 01/13/2011 Overview: 2014, right Dr Ricardo [facility] 2011: left Dr Priya Ricardo [facility] Dyslipidemia, goal LDL below 70 09/21/19 11 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 neurogenic claudication 02/17/2010 Vitamin D deficiency 10/13/2009 Chronic ischemic heart disease 0 S/P angioplasty with stent 06/30/2009 Overview: 07/01/2009 DUS in the RCA at [facility] Non-toxic multinodular goiter 04/21/2009 Overview: seen on [...] as of this encounter (statuses as of 09/15/2022) Resolved Problems Problem Noted Date Resolved Date [...] as of this encounter (statuses as of 09/15/2022) Immunizations Name Administration Dates Next Due COVID-19 [...] encounter Miscellaneous Notes * Telephone Encounter - Mounika Torres RN - 09/15/2022 3:11 PM EDT Reason for Call: Test result Contact: Letter Contact Type: Test Results Outcome: Automated negative mammogram letter sent to patient by [facility] radiology. Face to face time spent with Patient (minutes): 0 Total Time including non face to face (minutes): 10 documented in this encounter Plan of Treatment Upcoming Encounters Date Type Specialty Care Team Description 10/26/2022 Office Visit Cardiology Yvon Harris PA-C [address] [place] [address] 11/14/2022 Office Visit Family Medicine Bj Mario, DO [address] [place] [address] 01/18/2023 Nurse Only Ancillary Park, Nurse Annual Wellness Scenery [address] [place] [address] Health Maintenance Due Date Last Done Comments DXA Scan 10/30/2020 10/30/2013, 10/20, 08/24/2009, Additional history exists COVID-19 Vaccine (4 - Booster for Moderna series) 07/02/2021 05/07/2021, 07/30/2020, 07/02/2020 CKD PHOS USE SMARTSET 03137 10/19/2022 0505/2021, 11/18/2019, 07/15/2019, Additional history exists Albumin/Creatinine Ratio 01/17/2023 01/17/2022, 03/23 Depression Screening, Annual for Pts 12 and Over 01/17/2023 01/17/2022 CKD HGB USE SMARTSET 94248 04/27/202304/27, 04/27/2022, 10/19/2021, Additional history exists DTaP,Tdap,and [...] filedocumented as of this encounter Care Teams Fast Food Server Relationship Specialty Start Date End Date Bj Mario, DO [address] [place] [address] PCP - General Family Medicine 11/28/16 documented as of this encounter
--- OUTSIDE RECORDS SUMMARY | 2023-01-22 22:49 | External Medical Summary | Summary of Care ---
Author Name Unknown Organization [place] [address] Care Team Providers Care Sap Hana Architect Name Role Phone Bj Mario DO Primary Care Provider [phone] Reason for Visit * Reason Comments eRx-Medication Refill Encounter Details Date Type Department Care Team Description 04/27/2022 Refill Cardiology, [facility] [address] [place] [address] Chaim Harris PA-C [address] [employer] [place] [address] Chronic ischemic heart disease Allergies Active Allergy Reactions Severity Noted Date Comments Escitalopram 04/27/2022 "Didn't feel right" documented as of this encounter (statuses as of 04/27/2022) Medications Medication Sig Dispensed Refills Start Date End Date Status ASPIRIN 81 MG PO CHEW One pill by mouth once a day with food 100 5 08/06/2008 Active VITAMIN D 1000 UNIT PO CAPSIndications:Vi tamin D deficiency 1 capsule daily 30 Cap 11 10/13/2009 Active nitroglycerin (NITROSTAT) 0.4 MG SUBLIndications:Ch ronic ischemic heart disease 1 every 5 min as needed with chest pain up to 3 doses in 15 minutes 25 Tab 11 10/09/2017 Active Acetaminophen 500 MG Oral Tablet Take 500 mg by mouth every 6 hours as needed for Pain. 0 Active cyclobenzaprine (FLEXERIL) 5 MG TabletIndications: Spasm of muscle Take 1 Tab by mouth 2 times a day as needed for Muscle spasms. 60 Tab 5 03/20/2019 Active Diclofenac Sodium (VOLTAREN) 1 % gelIndications:Cer vicalgia Place 4 g topically on the skin 4 times a day. To affected area as directed. 100 g 5 09/03/2019 Active travoprost, MAYA Free, (TRAVATAN Z) 0.004 % ophthalmic solution instill 1 drop into both eyes every evening 2.5 mL 5 12/03/2019 Active Meclizine HCl 12.5 MG Oral Tablet (ANTIVERT)Indicati ons:Benign paroxysmal vertigo of left ear Take 1 Tab by mouth 3 times a day as needed for Dizziness. 30 Tab 0 04/25/2020 Active Timolol Maleate 0.5 % Ophthalmic Solution (Timoptic) instill 1 drop into both eyes every morning 0 11/25/2020 Active Metoprolol Succinate ER 25 MG Oral Tablet Extended Release 24 Hour (toPROL XL)Indications:Chr onic ischemic heart disease Take 0.5 Tablets by mouth daily. 45 Tablet 3 04/19/2021 Active Lisinopril 10 MG Oral Tablet (Prinivil)Indicati ons: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),Edema take 1 tablet by mouth once daily 90 Tablet 2 10/07/2021 Active Furosemide 20 MG Oral Tablet (Lasix)Indications :HTN, goal below 140/90 take 1 tablet by mouth once daily 90 Tablet 1 11/03/2021 Active Famotidine 10 MG Oral Tablet (Pepcid)Indication s:Gastroesophageal reflux disease without esophagitis Take by mouth 1 Tablet in the morning. 90 Tablet 1 12/31/2021 Active traMADol HCl 50 MG Oral Tablet (Ultram)Indication s: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 neurogenic claudication,Cervi calgia Take by mouth 1 Tablet daily as needed for Pain, Severe. 30 Tablet 0 01/17/2022 Active rOPINIRole HCl 0.25 MG Oral Tablet [...] once daily 100 Tablet 3 04/27/2022 Active Isosorbide Mononitrate ER 30 MG Oral Tablet Extended Release 24 Hour (Imdur)Indications :Chronic ischemic heart disease Take 1 Tab by mouth daily. 100 Tab 3 03/17/2021 2 Discontinued documented as of this encounter (statuses as of 04/27/2022) Active Problems Problem Noted Date Chronic kidney disease, stage 3b 021 Overview: Per CKD protocol 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 09/29/2020 Overview: Per CKD protocol History of deep vein thrombosis (DVT) of lower extremity 09/08/2016 Status post insertion of drug eluting co ronary artery stent 04/07/2015 Overview: 2009, DUS placed in the mid RCA at [facility] Asymptomatic bilateral carotid artery st enosis 06/10/2014 Raynaud phenomenon 06/13/2011 Knee joint replacement status 01/13/2011 Overview: 2014, right Dr Ricardo [facility] 2011: left Dr Priya Ricardo [facility] Dyslipidemia, goal LDL below 70 09/21/19 11 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 neurogenic claudication 02/17/2010 Vitamin D deficiency 10/13/2009 Chronic ischemic heart disease 0 S/P angioplasty with stent 06/30/2009 Overview: 07/01/2009 DUS in the RCA at [facility] Non-toxic multinodular goiter 04/21/2009 Overview: seen [...] as of this encounter (statuses as of 04/27/2022) Resolved Problems Problem Noted Date Resolved Date [...] as of this encounter (statuses as of 04/27/2022) Immunizations Name Administration Dates Next Due COVID-19 [...] encounter Miscellaneous Notes * Telephone Encounter - Chaim Harris PA-C - 04/27/2022 12:42 PM ESTSigned Prescriptions: Disp Refills Isosorbide Mononitrate ER 30 MG Oral Table*100 Ta*3 Sig: take 1 tablet by mouth once daily Authorizing Provider: CHAIM HARRIS * Telephone Encounter - Jace Gonzalez RN - 04/27/2022 11:10 AM ESTPending Prescriptions: Disp Refills Isosorbide Mononitrate ER 30 MG Oral Table*100 Ta*3 Sig: take 1 tablet by mouth once daily * Telephone Encounter - Jace Gonzalez RN - 04/27/2022 11:10 AM EST Pending Prescriptions: Disp Refills Isosorbide Mononitrate ER 30 MG Oral Tabl*100 Ta*3 Sig: take 1 tablet by mouth once daily Last Visit: 04/27/2022 (in office), 07/07/2020 (telemedicine) Next Visit: 10/26/2022 Last medication order date: 03/17/2021 Have you choosen a preferred pharm?? yes Patient Active Problem List Diagnosis Code Advance [...] Chronic kidney disease, stage 3b (HCC) N18.32 Labs: Lab Results Component Value Date/Time CREATININE - [facility] 1.6 (H) 10/19/2021 12:35 PM CREATININE - [facility] 1.3 (H) 04/06/2020 10:20 AM CREATININE, RANDOM URINE - [facility] 158 01/17/2022 10:28 AM CREATININE, RANDOM URINE - [facility] 195 04/11/2016 08:47 AM CREATININE-[facility] 1.53 (A) 08/13/2018 12:00 AM Lab Results Component Value Date/Time POTASSIUM 4.0 08/05/1996 07:45 AM POTASSIUM - [facility] 4.7 10/19/2021 12:35 PM POTASSIUM - [facility] 4.6 04/06/2020 10:20 AM POTASSIUM-[facility] 3.9 08/13/2018 12:00 AM Lab Results Component Value Date/Time TSH - [facility] 2.53 04/06/2020 10:20 AM Lab Results Component Value Date/Time LDL CHOLESTEROL (CALCULATED) - [facility] 59 04/04/2019 10:11 AM LDL CHOLESTEROL (CALCULATED) - [facility] 55 02/14/2018 09:47 AM LDL CHOLESTEROL (DIRECT MEASURE) - [facility] 72 04/19/2021 09:18 AM LDL CHOLESTEROL (DIRECT MEASURE) - [facility] 67 04/06/2020 10:20 AM LDL CHOLESTEROL (DIRECT MEASURE) - [facility] NOT APPLICABLE 04/04/2019 10:11 AM LDL CHOLESTEROL (DIRECT MEASURE) - [facility] 92 06/13/2011 10:52 AM Lab Results Component Value Date/Time ALT - [facility] 13 10/19/2021 12:35 PM ALT - [facility] 14 04/06/2020 10:20 AM Hemoglobin AIC Results: No results found for: HEMOGLOBIN A1C documented in this encounter Plan of Treatment Upcoming Encounters Date Type Specialty Care Team Description 05/09/2022 Office Visit Family Medicine Bj Mario, DO [address] [place] [address] 10/26/2022 Office Visit Cardiology Chaim Harris PA-C [address] [place] [address] 01/18/2023 Nurse Only [place], Nurse [facility] [address] [place] [address] Health Maintenance Due Date Last Done Comments Hepatitis B (1 of 3 - 3-dose series) 1935 DXA Scan 10/30/2020 10/30/2013, 10/20, 08/24/2009, Additional history exists COVID-19 Vaccine (4 - Booster for Moderna series) 07/02/2021 05/07/2021, 07/30/2020, 07/02/2020 CKD HGB USE SMARTSET 83572 10/19/202210/19, 10/30/2020, 04/06/2020, Additional history exists CKD PHOS USE SMARTSET 39437 10/19/2022 05/3 05/2021, 11/18/2019, 07/15/2019, Additional history exists Alb / Creat Ratio 01/17/2023 01/17/2022, 04/11/2016 Depression Screening, Annual for Pts 12 and Over 01/17/2023 01/17/2022 DTaP,Tdap,and Td Vaccines (2 - Td or [...] encounter Visit Diagnoses Diagnosis Chronic ischemic heart disease Chronic ischemic heart disease, unspecified documented in this encounter Care Teams Sap Hana Architect Relationship Specialty Start Date End Date Bj Mario, DO [address] [place] [address] PCP - General Family Medicine 11/28/16 documented as of this encounter
--- OUTSIDE RECORDS SUMMARY | 2023-01-22 22:49 | External Medical Summary | Summary of Care ---
Author Name Unknown Organization [place] [address] Care Team Providers Care Telecommunications Repairer Name Role Phone Bj Mario DO Primary Care Provider [phone] Reason for Visit * Reason Onset Date Comments Follow Up 03/14/2022 Encounter Details Date Type Department Care Team Description 03/14/2022 Telephone Interventional Pain Center, [facility] [address] [place] [address] CousinsPaulDO [address] [place] [address] Follow Up Allergies No known active allergiesdocumented as of this encounter (statuses as of 03/15/2022) Medications Medication Sig Dispensed Refills Start Date End Date Status ASPIRIN 81 MG PO CHEW One pill by mouth once a day with food 100 5 08/06/2008 Active VITAMIN D 1000 UNIT PO CAPSIndications:Vitam in D deficiency 1 capsule daily 30 Cap 11 10/13/2009 Active nitroglycerin (NITROSTAT) 0.4 MG SUBLIndications:Chron ic ischemic heart disease 1 every 5 min as needed with chest pain up to 3 doses in 15 minutes 25 Tab 11 10/09/2017 Active acetaminophen (TYLENOL EXTRA STRENGTH) 500 MG Tablet Take 500 mg by mouth every 6 hours as needed for Pain. 0 Active cyclobenzaprine (FLEXERIL) 5 MG TabletIndications:Spa sm of muscle Take 1 Tab by mouth 2 times a day as needed for Muscle spasms. 60 Tab 5 03/20/2019 Active Diclofenac Sodium (VOLTAREN) 1 % gelIndications:Cervic algia Place 4 g topically on the skin 4 times a day. To affected area as directed. 100 g 5 09/03/2019 Active travoprost, MAYA Free, (TRAVATAN Z) 0.004 % ophthalmic solution instill 1 drop into both eyes every evening 2.5 mL 5 12/03/2019 Active Meclizine HCl 12.5 MG Oral Tablet (ANTIVERT)Indications :Benign paroxysmal vertigo of left ear Take 1 Tab by mouth 3 times a day as needed for Dizziness. 30 Tab 0 04/25/2020 Active Timolol Maleate 0.5 % Ophthalmic Solution (Timoptic) instill 1 drop into both eyes every morning 0 11/25/2020 Active Isosorbide Mononitrate ER 30 MG Oral Tablet Extended Release 24 Hour (Imdur)Indications:Ch ronic ischemic heart disease Take 1 Tab by mouth daily. 100 Tab 3 03/17/2021 Active Metoprolol Succinate ER 25 MG Oral Tablet Extended Release 24 Hour (toPROL XL)Indications:Chroni c ischemic heart disease Take 0.5 Tablets by mouth daily. 45 Tablet 3 04/19/2021 Active Lisinopril 10 MG Oral Tablet (Prinivil)Indications :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),Edema take 1 tablet by mouth once daily 90 Tablet 2 10/07/2021 Active Furosemide 20 MG Oral Tablet (Lasix)Indications:HT N, goal below 140/90 take 1 tablet by mouth once daily 90 Tablet 1 11/03/2021 Active Famotidine 10 MG Oral Tablet (Pepcid)Indications:G astroesophageal reflux disease without esophagitis Take by mouth 1 Tablet in the morning. 90 Tablet 1 12/31/2021 Active traMADol HCl 50 MG Oral Tablet (Ultram)Indications:S josie stenosis of lumbar region without neurogenic claudication,Cervical jade Take by mouth 1 Tablet daily as needed for Pain, Severe. 30 Tablet 0 01/17/2022 Active Escitalopram Oxalate 10 MG Oral Tablet (Lexapro)Indications: RIGOBERTO (generalized anxiety disorder) Take by mouth 1 Tablet in the morning. 30 Tablet 5 02/08/2022 Active rOPINIRole HCl 0.25 MG Oral Tablet (Requip)Indications:R estless legs syndrome take 1 tablet by mouth at bedtime 90 Tablet 1 02/24/2022 Active Rosuvastatin Calcium 20 MG Oral Tablet (Crestor)Indications: Dyslipidemia, goal LDL below 70 take 1 tablet by mouth once daily 90 Tablet 1 02/24/2022 Active documented as of this encounter (statuses as of 03/15/2022) Active Problems Problem Noted Date Chronic kidney disease, stage 3b 021 Overview: Per CKD protocol 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 09/29/2020 Overview: Per CKD protocol History of deep vein thrombosis (DVT) of lower extremity 09/08/2016 Status post insertion of drug eluting co ronary artery stent 04/07/2015 Overview: 2009, DUS placed in the mid RCA at [facility] Asymptomatic bilateral carotid artery st enosis 06/10/2014 Raynaud phenomenon 06/13/2011 Knee joint replacement status 01/13/2011 Overview: 2014, right Dr Ricardo [facility] 2011: left Dr Priya Ricardo [facility] Dyslipidemia, goal LDL below 70 09/21/19 11 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 neurogenic claudication 02/17/2010 Vitamin D deficiency 10/13/2009 Chronic ischemic heart disease 0 S/P angioplasty with stent 06/30/2009 Overview: 07/01/2009 DUS in the RCA at [facility] Non-toxic multinodular goiter 04/21/2009 Overview: seen [...] as of this encounter (statuses as of 03/15/2022) Resolved Problems Problem Noted Date Resolved Date [...] as of this encounter (statuses as of 03/15/2022) Immunizations Name Administration Dates Next Due COVID-19 mRNA, LNP-s, No Pre serve, 2-Dose Series (Moderna) 07/30/2020,07/02/2020 Covid-19 Mrna, Lnp-s, No Pre serve, Booster (Moderna) 05/07/2021 Pneumococcal Conjugate Vacc, 13 Valent (Prevnar) 09/22/2014 Pneumococcal Polysaccharide PPV23 (Pneumovax) 03/12/2002 Seasonal Influenza, Quadriva lent, No Preserve, 6 [...] Tobacco Use Types Packs/Day Years Used Date Never Smoker Smokeless Tobacco: Never Used Alcohol Use Standard Drinks/Week Comments Not Currently 0 (1 standard drink = 0.6 oz pur e alcohol) occasional Alcohol Habits Answer Date Recorded How often do you have a drink containing alcohol ? Not asked How many drinks containing a lcohol do you have on a typical day when you are drinking? Not asked How often do you have six or more drinks on one occasion? Not asked Comment: occasional 01/17/2022 Food Insecurity Answer Date Recorded Within the [...] encounter Miscellaneous Notes * Telephone Encounter - Paul Berg DO - 03/15/2022 7:22 AM EDT Can repeat injection in another few months if things worsen. * Telephone Encounter - ALESHA Kaur - 03/14/2022 1:38 PM EDT Patient states she is having 40-50% relief from her injection. documented in this encounter Plan of Treatment Upcoming Encounters Date Type Specialty Care Team Description 04/27/2022 Office Visit Cardiology Yvon Harris PA-C [address] [facility] [place] [address] 05/09/2022 Office Visit Family Medicine Bj Mario, DO [address] [place] [address] 01/18/2023 Nurse Only Ancillary Nurse [facility] [address] [place] [address] Health Maintenance Due Date Last Done Comments DXA Scan 10/30/2020 10/30/2013, 10/20, 08/24/2009, Additional history exists COVID-19 Vaccine (4 - Booster for Moderna series) 07/02/2021 05/07/2021, 07/30/2020, 07/02/2020 Influenza Vaccine (FLU shot) (#1) 2022 06/05/2020, 04/08/2020, 03/20/2019, Additional history exists CKD HGB USE SMARTSET 74719 10/19/202210/19, 10/30/2020, 04/06/2020, Additional history exists CKD PHOS USE SMARTSET 22681 10/19/2022 05/05/2021, 11/18/2019, 07/15/2019, Additional history exists Alb / [...] this topic documented as of this encounter Implants Not on filedocumented as of this encounter Advance Directives Documents on File Type Date Recorded Patient Stack Attendant Expl anation Advanced Directive service a mike default Advanced Directive Advanced Directive Advanced Directive Advanced Directive Advanced Directive Advanced Directive Advanced Directive Advanced Directive Advanced Directive Advanced Directive Advanced Directive Advanced Directive Advanced Directive Advanced Directive Advanced Directive Advanced Directive Advanced Directive Advanced Directive Advanced Directive Advanced Directive Advanced Directive Advanced Directive Advanced Directive Advanced Directive Advanced Directive Advanced Directive Advanced Directive Advanced Directive Advanced Directive Advanced Directive Advanced Directive Advanced Directive Advanced Directive Advanced Directive Advanced Directive Advanced Directive Advanced Directive Advanced Directive Advanced Directive Advanced Directive Advanced Directive Advanced Directive Advanced Directive Advanced Directive Advanced Directive Advanced Directive Advanced Directive Advanced Directive Advanced Directive Advanced Directive Advanced Directive Advanced Directive Advanced Directive Advanced Directive Advanced Directive Advanced Directive Advanced Directive Advanced Directive Advanced Directive Advanced Directive Advanced Directive Advanced Directive Advanced Directive Advanced Directive Advanced Directive 09/01/2016 8:20 AM Advance Directives and Living Will 08/13/2009 12:00 AM LIVING WILL Power of Paraprofessional Interpreter 08/13/2009 12:00 AM DOMONIQUE R OF NUCLEAR ENGINEER DURABLE HEALTH POA AND HEALTH CARE TREATMENT INSTR Power of Paraprofessional Interpreter 08/13/2009 12:00 AM DOMONIQUE R OF NUCLEAR ENGINEER DURABLE HEALTH CARE POA Care Teams Telecommunications Repairer Relationship Specialty Start Date End Date Bj Mario, DO [address] [place] [address] PCP - General Family Medicine 11/28/16 documented as of this encounter
--- OUTSIDE RECORDS SUMMARY | 2023-01-22 22:49 | External Medical Summary ---
Author Name Unknown Address Unknown Organization K01:[facility] [address] [place] [address] Laboratory Report Ordering Provider Test Date Status SRINI RUCKER 04/27/2022 10:04:30 Final Observation Date Value Abnormality Reference (Units ) Status Triglyceride 04/27/2022 10:04:30 122 <=174 ( mg/dL) Final Performing Location [facility] [address] [place] [address]
--- OUTSIDE RECORDS SUMMARY | 2023-01-22 22:49 | External Medical Summary | Summary of Care ---
Author Name Unknown Organization [place] [address] Care Team Providers Care School Director Name Role Phone Bj Mario DO Primary Care Provider [phone] Reason for Visit * Reason Comments Follow Up 6 month follow up. E eva in LE is no worse then prior- uses compression socks most days. SOB ongoing but no worse then prior. Denies chest pain, palpitations and dizziness. Encounter Details Date Type Department Care Team Description 04/27/2022 Office Visit Cardiology, [facility] [address] [place] [address] Yvon Harris PA-C [address] [place] [address] HTN, goal below 140/90*; Weight loss; Chronic ischemic heart disease; S/P angioplasty with stent; 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); Dyslipidemia, goal LDL below 70; PVC (premature ventricular contraction) Allergies Active Allergy Reactions Severity Noted Date Comments Escitalopram 04/27/2022 "Didn't feel right" documented as of this encounter (statuses as of 04/29/2022) Medications Medication Sig Dispensed Refills Start Date End Date Status ASPIRIN 81 MG PO CHEW One pill by mouth once a day with food 100 5 08/06/2008 Active VITAMIN D 1000 UNIT PO CAPSIndications:V itamin D deficiency 1 capsule daily 30 Cap 11 10/13/2009 Active nitroglycerin (NITROSTAT) 0.4 MG SUBLIndications:C hronic ischemic heart disease 1 every 5 min as needed with chest pain up to 3 doses in 15 minutes 25 Tab 11 10/09/2017 Active Acetaminophen 500 MG Oral Tablet Take 500 mg by mouth every 6 hours as needed for Pain. 0 Active cyclobenzaprine (FLEXERIL) 5 MG TabletIndications :Spasm of muscle Take 1 Tab by mouth 2 times a day as needed for Muscle spasms. 60 Tab 5 03/20/2019 Active Diclofenac Sodium (VOLTAREN) 1 % gelIndications:Ce rvicalgia Place 4 g topically on the skin 4 times a day. To affected area as directed. 100 g 5 09/03/2019 Active travoprost, MAYA Free, (TRAVATAN Z) 0.004 % ophthalmic solution instill 1 drop into both eyes every evening 2.5 mL 5 12/03/2019 Active Meclizine HCl 12.5 MG Oral Tablet (ANTIVERT)Indicat ions:Benign paroxysmal vertigo of left ear Take 1 Tab by mouth 3 times a day as needed for Dizziness. 30 Tab 0 04/25/2020 Active Timolol Maleate 0.5 % Ophthalmic Solution (Timoptic) instill 1 drop into both eyes every morning 0 11/25/2020 Active Metoprolol Succinate ER 25 MG Oral Tablet Extended Release 24 Hour (toPROL XL)Indications:Ch ronic ischemic heart disease Take 0.5 Tablets by mouth daily. 45 Tablet 3 04/19/2021 Active Lisinopril 10 MG Oral Tablet (Prinivil)Indicat ions: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),Edema take 1 tablet by mouth once daily 90 Tablet 2 10/07/2021 Active Furosemide 20 MG Oral Tablet (Lasix)Indication s:HTN, goal below 140/90 take 1 tablet by mouth once daily 90 Tablet 1 11/03/2021 Active Famotidine 10 MG Oral Tablet (Pepcid)Indicatio ns:Gastroesophage al reflux disease without esophagitis Take by mouth 1 Tablet in the morning. 90 Tablet 1 12/31/2021 Active traMADol HCl 50 MG Oral Tablet (Ultram)Indicatio ns: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 neurogenic claudication,Cerv icalgia Take by mouth 1 Tablet daily as needed for Pain, Severe. 30 Tablet 0 01/17/2022 Active rOPINIRole HCl 0.25 MG Oral Tablet (Requip)Indicatio ns:Restless legs syndrome take 1 tablet by mouth at bedtime 90 Tablet 1 02/24/2022 Active Rosuvastatin Calcium 20 MG Oral Tablet (Crestor)Indicati ons:Dyslipidemia, goal LDL below 70 take 1 tablet by mouth once daily 90 Tablet 1 02/24/2022 Active Isosorbide Mononitrate ER 30 MG Oral Tablet Extended Release 24 Hour (Imdur)Indication s:Chronic ischemic heart disease Take 1 Tab by mouth daily. 100 Tab 3 03/17/2021 04/27/20 22 Discontinued Escitalopram Oxalate 10 MG Oral Tablet (Lexapro)Indicati ons:RIGOBERTO (generalized anxiety disorder) Take by mouth 1 Tablet in the morning. 30 Tablet 5 02/08/2022 04/27/20 22 Discontinued(Adv erse reaction) documented as of this encounter (statuses as of 04/29/2022) Active Problems Problem Noted Date Chronic kidney [...] as of this encounter (statuses as of 04/29/2022) Resolved Problems Problem Noted Date Resolved Date [...] as of this encounter (statuses as of 04/29/2022) Immunizations Name Administration Dates Next Due COVID-19 [...] Date Smoking Tobacco: Never Smokeless Tobacco: Never Tobacco Cessation:Counseling Given: Not Answered Alcohol Use Standard Drinks/Week Comments Yes 0 [...] Sign Reading Time Taken Comments Blood Pressure 132/78 04/27/2022 9:03 AM EST Pulse 64 04/27/2022 9:03 AM EST Temperature 36.1 C (97 F) 04/27/2022 9:03 AM EST Respiratory Rate 16 04/27/2022 9:03 AM EST Oxygen Saturation - - Inhaled Oxygen Concentration - - Weight 82.4 kg (181 lb 12 oz) 04/27/2022 9:03 AM EST Height - - Body Mass Index 32.61 02/08/2022 9:54 AM EDT documented in this encounter Progress Notes * Yvon Harris PA-C - 04/27/2022 9:34 AM EST History of Present Illness: Eugenia Hu is an 87-year-old female who returns today for cardiology follow-up evaluation. Prescribed Lexapro in January for anxiety. Took one pill and stopped. Back injection at the end of January that "did good" until late last month. "If I had a new back I'd been real good." Less of an appetite since the summer, down 11 pounds, improving since . No chest pain. She states that her breathing "is the same as it has always been." Less swelling with the cooler weather. Wearing compression stockings most days. No resting or nocturnal dyspnea. No palpitations. No positional dizziness or lightheadedness. No syncope. No melena or hematochezia. History includes chest pain and abnormal adenosine [...] systolic function, EF 55%. Patient hospitalized at [facility] in June 2012 at which time she [...] TTE was interpreted by Dr. Kidd at [facility] on September 02, 2016 as demonstrating normal LV chamber size with mild concentric LVH. Left ventricular wall motion was normal. Systolic function was normal, EF 60 to 65%. The right ventricle was noted be normal in size and function. There was moderate aortic sclerosis without significant stenosis and trace mitral regurgitation observed. Last hospitalization was in July of 2018 with acute diverticulitis. [...] Chronic kidney disease, stage 3b (HCC) N18.32 Past Medical History: Diagnosis Date Chronic kidney disease, stage 3b (HCC) 11/03/2020 Per CKD protocol Dyslipidemia, goal LDL below 100 Dyslipidemia, goal to be determined Hip joint replacement status 2000 right 2000, left 1992 HTN, goal below 140/90 HTN, goal below 140/90 05/25/2006 Knee joint replacement status 01/13/[address] Priya Ricardo [facility] Knee joint replacement status 12/15/2013 right [facility] Macular degeneration Ugo Simon MD Menopause 1974 Need for prophylactic hormone replacement therapy (postmenopausal) 1974 Non-toxic multinodular goiter 04/2009 seen on US, repeat Other screening mammogram 10/24/03 [facility] Code 2 Other specified glaucoma both eyes, Paul Simon MD, drops used, timolol S/P angioplasty with stent 06/30/09 [facility] Status post insertion of drug eluting coronary artery stent 04/07/20152009, DUS placed in the mid RCA at [facility] Vitamin D deficiency 10/13/2009 Past Surgical History: Procedure Laterality Date ARTHROPLASTY KNEE TOTAL Left 01/13/2011 Left, Dr Priya Ricardo [facility] ARTHROPLASTY KNEE TOTAL Right 12/16/13 Right, Dr Priya Ricardo [facility] CARDIAC CATH SCANNED RESULT 06/30/2009 DUS placed in right coronary, [facility] CARPAL TUNNEL SURGERY Bilateral 2014 bilateral COLONOSCOPY 03/22/2006 normal repeat in 2015 COLONOSCOPY, DIAGNOSTIC (RECTUM) 09/01/2016 diverticulosis/COLONOSCOPY FLEXIBLE PROXIMAL DIAGNOSTIC performed by Kaylie Ford MD at ENDOSCOPY [facility] COLONOSCOPY, DIAGNOSTIC (RECTUM) 10/09/2018 diverticulosis/[facility] COLONOSCOPY, GI REFERRAL OP 03/22/2005 diverticulosis, repeat in 10 years for surveillance reasons COLORECTAL CANCER SCREEN;W/FLE 1999 normal, Dr Estrella DENTAL SURGERY PROCEDURE NEC 1970 Dental Surgery Procedure tumor benign palate DEXA SCAN/BONE MINERAL AXIAL 07/2002 normal, repeat 2007 DEXA SCAN/BONE MINERAL AXIAL 07/20/2006 normal repeat in 6-8 years EGD, FLEXIBLE, DIAGNOSTIC 01/30/2019 acid reflux, Schatzki ring, hiatal hernia / [facility] EXERCISE ECHO 09/02/2002 normal, Dr Genao INJECT [...] SPINE LUMBAR OR SACRAL performed by Paul Abhishek Cousins, DO at OR [facility] MAMMOGRAM - [...] one ovary left in, Dr Chakraborty in [facility] REMOVE CATARACT, INSERT LENS PROSTH Right 01/05/[address] Messi Simon REMOVE CATARACT, INSERT LENS PROSTH Left 01/28/[address] Messi Simon STENT, COATED/COVERED, WITH DELIVERY SYSTEM 06/30/2009 [employer] Drug Eluding Stent [facility] TOTAL HIP REPLACEMENT & PROSTHESIS 1992 left, Dr Ricardo TOTAL HIP REPLACEMENT & PROSTHESIS 10/2000 right , Dr Ricardo at [facility] Family History Problem Relation Age of Onset Cancer Mother cancer of bone Lung Disorder Father old age with heart failure Heart disease Father Heart attack Brother 62 Lung Disorder Brother smoker Heart attack Brother age 62 Heart disease Brother angina No Known Problems Son No Known Problems Daughter No Known Problems Daughter Social History Socioeconomic History Marital status: Spouse [...] file Gets together: Not on file Attends yazdanism service: Not on file Active member of [...] Self-Exams Not Asked Social History Narrative born [place] in [facility] since 1953 ; 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 Complete Review of Systems: See above. Otherwise negative or noncontributory. Review of patient's allergies indicates: Allergen Reactions Lexapro [Escitalopram] "Didn't feel right" Outpatient Medications Marked as Taking for the 04/27/22 encounter (Office Visit) with Yvon Harris PA-C Medication Sig rOPINIRole HCl 0.25 MG Oral Tablet (Requip) take 1 tablet by mouth at bedtime Rosuvastatin Calcium 20 MG Oral Tablet (Crestor) take 1 tablet by mouth once daily Famotidine 10 MG Oral Tablet (Pepcid) Take by mouth 1 Tablet in the morning. Furosemide 20 MG Oral Tablet (Lasix) take 1 tablet by mouth once daily Lisinopril 10 MG Oral Tablet (Prinivil) take 1 tablet by mouth once daily Metoprolol Succinate ER 25 MG Oral Tablet Extended Release 24 Hour (toPROL XL) Take 0.5 Tabletsby mouth daily. Isosorbide Mononitrate ER 30 MG Oral Tablet Extended Release 24 Hour (Imdur) Take 1 Tab by mouth daily. Timolol Maleate 0.5 % Ophthalmic Solution (Timoptic) instill 1 drop into both eyes every morning travoprost, MAYA Free, (TRAVATAN Z) 0.004 % ophthalmic solution instill 1 drop into both eyes every evening Diclofenac Sodium (VOLTAREN) 1 % gel Place 4 g topically on the skin 4 times a day. To affectedarea as directed. Acetaminophen 500 MG Oral Tablet Take 500 mg by mouth every 6 hours as needed for Pain. VITAMIN D 1000 UNIT PO CAPS 1 capsule daily ASPIRIN 81 MG PO CHEW One pill by mouth once a day with food OBJECTIVE/PHYSICAL EXAMINATION: BP 132/78 | Pulse 64 | Temp 36.1 C (97 F) | Resp 16 | Wt 82.4 kg (181 lb 12 oz) | BMI 32.61 kg/m | BSA 1.91 m General: NAD. HENT: Normocephalic. Atraumatic. Eyes: PER. Conjunctiva pink, sclera clear. Neck: Bilateral carotid bruits. No JVD. Heart: RRR, 70 bpm. Soft systolic murmur. Lungs: Clear to auscultation. Abdomen: +BS. Soft. Nontender. No masses or organomegaly. Extremities: Minimal left lower extremity edema. No clubbing. No [...] described VSD not visible on current study. EKG today reveals sinus rhythm at 62 bpm with frequent premature ventricular complexes, left axis deviation, low-voltage QRS, nonspecific ST and T-wave abnormality. ASSESSMENT: 1. ASCVD. Stable. 2. Hypertension, well controlled. 3. Hyperlipidemia. LDL cholesterol 72 mg/dL on April 19, 2021 4. Bilateral internal carotid artery disease, without infarction, asymptomatic. Carotid duplex in March 2020 revealed mild right internal carotid artery disease, 50 to 69% left internal carotid artery disease, unchanged dating back to January 2015. 5. Asymptomatic ectopy 6. Chronic kidney disease. Creatinine 1.6 mg/dL on October 19, 2021. 7. Primary hyperparathyroidism. Followed by [facility] Endocrinology. 8. Degenerative disc disease, spinal stenosis, status post injection RECOMMENDATIONS/PLAN: Laboratory work today. Continue current therapies as prescribed. Continue conservative medical management of the patient's CAD. Cardiology follow-up in 6 months time or as needed. ER with emergencies. Yvon Harris PA-C Department of Cardiology This chart was completed in part utilizing [employer] Speech Voice Recognition Software. Grammatical errors, random word insertions, prounoun errors, and incomplete sentences are an occasional consequence of this system due to software limitations, ambient noise, and hardware issues. Any formal questions or concerns about the content, text, or information contained within the body of this dictation should be directly addressed to the provider for clarification. documented in this encounter Procedure Notes * Gonzalo Gay, - 04/27/2022 8:59 AM ESTAssociated Order(s): EKG REASON FOR STUDY: HTN CONCLUSIONS: Sinus rhythm with frequent Premature ventricular complexes Left axis deviation Low voltage QRS, consider pulmonary disease, pericardial effusion, or normal variant Nonspecific ST and T wave abnormality Abnormal ECG When compared with ECG of 16-APR-2021 14:49, Criteria for Septal infarct are no longer Present Ventricular Rate: 62 Atrial Rate: 62 MA Interval: 164 QRS Duration: 100 QT/QTc: 370/375 ms P-R-T [place]: 68 : -34 : 57 degrees documented in this encounter Nursing Notes * Stanley Felix LPN - 04/27/2022 8:59 AM EST Patient identified by full name and date of Chief Complaint Patient presents with Follow Up 6 month follow up. Edema in LE is no worse then prior- uses compression socks most days. SOB ongoing but no worse then prior. Denies chest pain, palpitations and dizziness. Examination Room: 2 Name: Eugenia Hu Date of : (1935). Reason for Visit: 6 month follow up Interim Hospitalization(s): Denies Problems/Concerns: See chief complaint Chest Pain/SOB: See chief complaint [facility] Discussed: Not applicable [facility] is a way you can talk to [...] Description 05/09/2022 Office Visit Family Medicine Bj aMrio DO [address] [place] [id number] 10/26/2022 Office Visit Cardiology Yvon Harris PA-C [address] [facility] [place] [address] 01/18/2023 Nurse Only [place] [place], Nurse [facility] [address] [place] [address] Health Maintenance Due Date Last Done Comments Hepatitis B (1 of 3 - 3-dose series) 1935 DXA Scan 10/30/2020 10/30/2013, 10/20, 08/24/2009, Additional history exists COVID-19 Vaccine (4 - Booster for Moderna series) 07/02/2021 05/07/2021, 07/30/2020, 07/02/2020 CKD PHOS USE SMARTSET 82863 10/19/2022 0505/2021, 11/18/2019, 07/15/2019, Additional history exists Alb / Creat Ratio 01/17/2023 01/17/2022, 04/11/2016 Depression Screening, Annual for Pts 12 and Over 01/17/2023 01/17/2022 CKD HGB USE SMARTSET 85247 04/27/202304/27, 04/27/2022, 10/19/2021, Additional history exists DTaP,Tdap,and [...] Procedure Name Priority Date/Time Associated Diagnosis Comments MA ECG ROUTINE ECG W/LEAST 12 LDS I&R ONLY Routine 04/27/2022 8:59 AM EST HTN, goal below 140/90 documented in this encounter Results * MAGNESIUM (04/27/2022 10:04 AM EST) Magnesium 1.8 1.5 - 2.6 mg/dL 04/27/2022 7:27 PM EST [facility] Blood Venous blood specimen / Unknown Venipuncture / Unknown 04/27/2022 10:04 AM EST 04/27/2022 10:04 AM EST Yvon Harris PA-C LAB BLOOD ORDERABLE S Performing Organization Address City/[facility]/ZIP Co de Phone Number [facility] [place] [address] [place] [address] * TSH WITH FREE T4 IF INDICATED (04/27/2022 10:04 AM EST) TSH 1.79 0.27 - 4.20 uIU/mL 04/27/2022 8:13 PM EST [facility] [place] Venous blood specimen / Unknown Venipuncture / Unknown 04/27/2022 10:04 AM EST 04/27/2022 10:04 AM EST Yvon Harris PA-C LAB BLOOD ORDERABLE S [facility] [place] [address] [place] [address] * (ABNORMAL) COMPREHENSIVE METABOLIC PANEL (04/27/2022 10:04 AM EST) BUN 17 6 - 20 mg/dL 04/27/2022 12:38 PM EST LABORATORY [place] [facility]10 Creatinine 1.4(H) 0.5 - 1.0 mg/dL 04/27/2022 12:38 PM EST LAB[facility]ATORY [place] [facility] Estimated Glomerular Filtration Rate 37(L) >=60 mL/min 04/27/2022 12:38 PM EST LAB[facility] [place] [facility]10 Comment:eGFR is calculated b ased on the CKD-EPI 2020 equation Sodium 142 135 - 146 mmol/L 04/27/2022 12:38 PM EST LAB[facility]ORY [place] [facility]10 Potassium 4.4 3.5 - 5.1 mmol/L 04/27/2022 12:38 PM EST LAB[facility] [place] [facility]10 Chloride 107 98 - 107 mmol/L 04/27/2022 12:38 PM EST [facility] [place] [facility] CO2 24 22 - 32 mmol/L 04/27/2022 12:38 PM EST [facility] [place] [facility] Anion Gap 11 7 - 15 mmol/L 04/27/2022 12:38 PM EST [facility] [place] [facility]10 Glucose 108 70 - 120 mg/dL 04/27/2022 12:38 PM EST [facility] [place] [facility] Albumin 4.1 3.8 - 5.0 g/dL 04/27/2022 12:38 PM EST [facility] [place] [facility]10 AST 22 10 - 35 U/L 04/27/2022 12:38 PM EST [facility] [place] [facility] Alkaline Phosphatase 87 35 - 130 U/L 04/27/2022 12:38 PM EST [facility] [place] [facility]10 Bilirubin, Total 0.4 <=1.2 mg/dL 04/27/2022 12:38 PM EST [facility] [place] [facility] Calcium 10.6(H) 8.4 - 10.2 mg/dL 04/27/2022 12:38 PM EST [facility] [place] [facility]10 Protein 6.8 6.0 - 8.3 g/dL 04/27/2022 12:38 PM EST [facility] [place] [facility] ALT 12 10 - 35 U/L 04/27/2022 12:38 PM EST [facility] [place] [facility] Blood Venous blood specimen / Unknown Venipuncture / Unknown 04/27/2022 10:04 AM EST 04/27/2022 10:04 AM EST Yvon Harris PA-C LAB BLOOD ORDERABLE S [facility] [place] [facility] [address] [facility] [place] [address] * LIPID PANEL WITH DIRECT LDL IF TG IS HIGH (04/27/2022 10:04 AM EST) Triglycerides 122 <=174 mg/dL 04/27/2022 7:27 PM EST [facility] [place] Comment: Triglyceride Reference Ranges (mg/dL): <150 Acceptable 150-174 Borderline high 175-499 High >=500 Very high Cholesterol 142 <200 mg/dL 04/27/2022 7:27 PM EST [facility] [place] Comment: Total Cholesterol Reference Ranges (mg/dL): <200 Desirable 200-239 Borderline high >=240 High HDL Cholesterol 55 >49 mg/dL 7:27 PM EST [facility] [place] Comment: HDL Cholesterol Reference Ranges (mg/dL): >=60 High (Desirable) <50 Low (Undesirable) For Females <40 Low (Undesirable) For Males Non-HDL Cholesterol 87 <=159 mg/dL 04/27/2022 7:27 PM EST [facility] [place] Comment: Non-HDL Cholesterol Reference Range (mg/dL): <100 Target level for high risk ASCVD patient <130 Optimal for general population 130-159 Near optimal for general population 160-189 Borderline High 190-219 High >=220 Very High LDL Cholesterol 63 <=129 mg/dL 04/27/2022 7:27 PM EST [facility] [place] Comment: LDL Cholesterol Reference Ranges (mg/dL): <70 Target level for high risk ASCVD patient <100 Optimal for general population 100-129 Near optimal for general population 130-159 Borderline high 160-189 High >=190 Very high Blood Venous blood specimen / Unknown Venipuncture / Unknown 04/27/2022 10:04 AM EST 04/27/2022 10:04 AM EST Yvon Leonila Kimberly [place] LAB BLOOD ORDERABLE S [facility] [place] [address] [place], [place] [id number] * EKG (04/27/2022 8:59 AM EST) 04/27/2022 8:59 AM EST Procedure Note Gonzalo Gay, DO - 04/27/2022 8:59 AM EST REASON FOR STUDY: HTN CONCLUSIONS: Sinus rhythm with frequent Premature ventricular complexes Left axis deviation Low voltage QRS, consider pulmonary disease, pericardial effusion, ornormal variant Nonspecific ST and T wave abnormality Abnormal ECG When compared with ECG of 16-APR-2021 14:49, Criteria for Septal infarct are no longer Present Ventricular Rate: 62 Atrial Rate: 62 MA Interval: 164 QRS Duration: 100 QT/QTc: 370/375 ms P-R-T [place]: 68 : -34 : 57 degrees Yvon Harris PA-C EKG [facility] documented in this encounter Visit Diagnoses Diagnosis HTN, goal below 140/90- Primary Unspecified essential hypertension Weight loss Loss of weight Chronic ischemic heart disease Chronic ischemic heart disease, unspecified S/P angioplasty with stent Postsurgical percutaneous transluminal coronary angioplasty status 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 I through stage IV, or unspecified Dyslipidemia, goal LDL below 70 Other and unspecified hyperlipidemia PVC (premature ventricular contraction) Other premature beats documented in this encounter Care Teams School Director Relationship Specialty Start Date End Date Bj Mario, DO [address] [place] [address] PCP - General Family Medicine 11/28/16 documented as of this encounter
--- OUTSIDE RECORDS SUMMARY | 2023-01-22 22:49 | External Medical Summary ---
Author Name Unknown Address Unknown Organization [id number]:LABORATORY [facility] - [address] [place] [address] Laboratory Report Ordering Provider Test Date Status SRINI RUCKER 04/27/2022 10:04:30 Final Observation Date Value Abnormality Reference (Units ) Status TSH 04/27/2022 10:04:30 1.79 0.27-4.20 (uIU/mL) Final Performing Location LABORATORY [facility] - [address] [place] [place] [address]
--- OUTSIDE RECORDS SUMMARY | 2023-01-22 22:49 | External Medical Summary ---
Author Name Unknown Address Unknown Organization K01:LABORATORY [facility] - [address] [place] [address] Laboratory Report Ordering Provider Test Date Status SRINI RUCKER 04/27/2022 10:04:30 Final Observation Date Value Abnormality Reference (Units ) Status Magnesium 04/27/2022 10:04:30 1.8 1.5-2.6 (m g/dL) Final Performing Location [facility] - [address] [place] [address]
--- OUTSIDE RECORDS SUMMARY | 2023-01-22 22:49 | External Medical Summary | Summary of Care ---
Author Name Unknown Organization [place] [address] Care Team Providers Care Parking Lot Supervisor Name Role Phone Bj Mario Primary Care Provider [phone] Reason for Visit * Reason Comments Outpatient Testing Encounter Details Date Type Department Care Team Description 04/27/2022 [facility] [address] [facility] [place] [id number] JinLisette macks [address] [facility] [place] [address] Dyslipidemia, goal LDL below 70; Weight loss; 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); PVC (premature ventricular contraction) Allergies Active Allergy [...] in the mid RCA at [facility] Asymptomatic bilateral carotid artery st enosis 06/10/2014 Raynaud phenomenon 06/13/2011 Knee joint replacement status 01/13/2011 Overview: 2014, right Dr Ricardo [facility] 2011: left Dr Priya Ricrado [facility] Dyslipidemia, goal LDL below 70 09/21/19 11 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 neurogenic claudication 02/17/2010 Vitamin D deficiency 10/13/2009 Chronic ischemic heart disease 0 S/P angioplasty with stent 06/30/2009 Overview: 07/01/2009 DUS in the RCA at [facility] Non-toxic multinodular goiter 04/21/2009 Overview: seen [...] 13 Valent (Prevnar) 09/22/2014 Seasonal Influenza, Quadriva lent, No Preserve, 6 [...] 05/09/2022 Office Visit Family Medicine Bj Mario, [address] [place] [address] 10/26/2022 Office Visit Cardiology Yvon Harris PA-C [address] [facility] [place] [address] 01/18/2023 Nurse Only Ancillary Park, Nurse Annual Wellness Scenery [address] [place] [address] Pending Results Name Type Priority Associated Diagnoses Date /Time LIPID PANEL WITH DIRECT LDL IF TG IS HIGH Lab Routine Dyslipidemia, goal LDL below 70 04/27/2022 10:04 AM EST COMPREHENSIVE METABOLIC PANEL Lab Routine Weight loss 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) Dyslipidemia, goal LDL below 70 PVC (premature ventricular contraction) 04/27/2022 10:04 AM EST CBC WITH WBC DIFFERENTIAL AND ANEMIA REFLEX WORKUP Lab Routine Weight loss 04/27/2022 10:04 AM EST TSH WITH FREE T4 IF INDICATED Lab Routine Weight loss PVC (premature ventricular contraction) 04/27/2022 10:04 AM EST MAGNESIUM Lab Routine PVC (premature ventricular contraction) 04/27/2022 10:04 AM EST ANEMIA CBC Lab Routine Weight loss 04/27/2022 10:04 AM EST DIFFERENTIAL, AUTOMATED Lab Routine Weight loss 04/27/2022 10:04 AM EST ANEMIA REFLEX CHEMISTRY HOLD Lab Routine Weight loss 04/27/2022 10:04 AM EST Health Maintenance Due Date Last Done Comments Hepatitis B (1 of 3 - 3-dose series) 1935 DXA Scan 10/30/2020 10/30/2013, 10/20, 08/24/2009, Additional history exists COVID-19 Vaccine (4 - Booster for Moderna series) 07/02/2021 05/07/2021, 07/30/2020, 07/02/2020 Influenza Vaccine (FLU shot) (#1) 2022 06/05/2020, 04/08/2020, 03/20/2019, Additional history exists CKD HGB USE SMARTSET 76236 10/19/202210/19, 10/30/2020, 04/06/2020, Additional history exists CKD PHOS USE SMARTSET 70481 10/19/2022/05/2021, 11/18/2019, 07/15/2019, Additional history exists Alb / [...] LDL below 70 Other and unspecified hyperlipidemia Weight loss Loss of weight 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 I through stage IV, or unspecified PVC (premature ventricular contraction) Other premature beats documented in this encounter Care Teams Parking Lot Supervisor Relationship Specialty Start Date End Date Bj Mario, DO [address] [place] [address] PCP - General Family Medicine 11/28/16 documented as of this encounter
--- OUTSIDE RECORDS SUMMARY | 2023-01-22 22:49 | External Medical Summary ---
Author Name Unknown Address Unknown Organization K01:[facility] [place] [address] [place] [address] Laboratory Report Ordering Provider Test Date Status SRINI RUCKER 04/27/2022 10:04:30 Final Observation Date Value Abnormality Reference (Units ) Status SYNC LEUKOCYTES IN BLOOD BY AUTOMATED COUNT 04/27/2022 10:04:30 6.28 4.00-10.80 (K/uL) Final Segs 04/27/2022 10:04:30 63.5 40.0-75.0 (%) Final Lymphs % 04/27/2022 10:04:30 22.8 18.0-42.0 (%) Final Monos 04/27/2022 10:04:30 9.6 1.0-11.0 (%) Final Eosinophils 04/27/2022 10:04:30 3.0 0.0-6.0 (%) Final Basos 04/27/2022 10:04:30 0.6 0.0-2.0 (%) Final Immature Granulocyte, Percent 04/27/2022 10:04:30 0.5 0.0-2.0 (%) Final Absolute Segs 04/27/2022 10:04:30 3.99 1.80-7.70 (K/uL) Final Lymphs, absolute 04/27/2022 10:04:30 1.43 1.00-4.80 (K/ul) Final Monos, Abs 04/27/2022 10:04:30 0.60 0.00-1.10 (K/uL) Final Eos, Abs 04/27/2022 10:04:30 0.19 0.00-0.70 (K/uL) Final Basos, Abs 04/27/2022 10:04:30 0.04 0.00-0.20 (K/uL) Final Immature Granulocytes, Number 04/27/2022 10:04:30 0.03 0.00-0.20 (K/uL) Final Performing Location [facility] [place] [facility][note 3] [address] [facility] [id number]
--- OUTSIDE RECORDS SUMMARY | 2023-01-22 22:49 | External Medical Summary | Summary of Care ---
Author Name Unknown Organization [place] [address] Care Team Providers Care Independent Marketing Consultant Name Role Phone Bj Mario DO Primary Care Provider [phone] Reason for Visit * Reason Onset Date Comments Follow Up 03/14/2022 Encounter Details Date Type Department Care Team Description 03/14/2022 Telephone Interventional Pain Center, [facility] [address] [place] [address] CousinsPaulDO [address] [place] [id number] Follow Up Allergies No known active allergiesdocumented as of this encounter (statuses as of 03/14/2022) Medications Medication Sig Dispensed Refills Start Date [...] as of this encounter (statuses as of 03/14/2022) Active Problems Problem Noted Date Chronic kidney disease, stage 3b 021 Overview: Per CKD protocol 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 09/29/2020 Overview: Per CKD protocol History of deep vein thrombosis (DVT) of lower extremity 09/08/2016 Status post insertion of drug eluting co ronary artery stent 04/07/2015 Overview: 2009, DUS placed in the mid RCA at [facility] Asymptomatic bilateral carotid artery st enosis 06/10/2014 Raynaud phenomenon 06/13/2011 Knee joint replacement status 01/13/2011 Overview: 2014, right Dr Ricardo [facility] 2011: left Dr Priya Ricardo [facility] Dyslipidemia, goal LDL below 70 09/21/19 11 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 neurogenic claudication 02/17/2010 Vitamin D deficiency 10/13/2009 Chronic ischemic heart disease 0 S/P angioplasty with stent 06/30/2009 Overview: 07/01/2009 DUS in the RCA at [facility] Non-toxic multinodular goiter 04/21/2009 Overview: [...] as of this encounter (statuses as of 03/14/2022) Resolved Problems Problem Noted Date Resolved Date [...] as of this encounter (statuses as of 03/14/2022) Immunizations Name Administration Dates Next Due COVID-19 [...] Miscellaneous Notes * Telephone Encounter - ALESHA Kaur - 03/14/2022 1:38 PM EDT Patient states she is having 40-50% relief from her injection. documented in this encounter Plan of Treatment Upcoming Encounters Date Type Specialty Care Team Description 04/27/2022 Office Visit Cardiology Yvon Harris PA-C [address] [place] [address] [place] [address] 05/09/2022 Office Visit Family Medicine jB Mario, DO [address] [facility] [place] [address] 01/18/2023 Nurse Only Ancillary [place] Nurse Annual Wellness Scenery [address] [place] [address] Health Maintenance Due Date Last Done Comments DXA Scan 10/30/2020 10/30/2013, 10/20, 08/24/2009, Additional history exists COVID-19 Vaccine (4 - Booster for Moderna series) 07/02/2021 05/07/2021, 07/30/2020, 07/02/2020 Influenza Vaccine (FLU shot) (#1) 2022 06/05/2020, 04/08/2020, 03/20/2019, Additional history exists CKD HGB USE SMARTSET 96672 10/19/202210/19, 10/30/2020, 04/06/2020, Additional history exists CKD PHOS USE SMARTSET 94280 10/19/2022 05/05/2021, 11/18/2019, 07/15/2019, Additional history exists [...] Documents on File Type Date Recorded 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
--- OUTSIDE RECORDS SUMMARY | 2023-01-22 22:49 | External Medical Summary ---
Author Name Unknown Address Unknown Organization K0G:[email or web address] [address] [place] [address] Laboratory Report Ordering Provider Test Date Status SRINI RUCKER 04/27/2022 10:04:30 Final Observation Date Value Abnormality Reference (Units ) Status BUN 04/27/2022 10:04:30 17 6-20 (mg/dL) Final Creatinine 04/27/2022 10:04:30 1.4 Above high normal 0.5-1.0 (mg/dL) Final Glomerular filtration rate/1.73 sq M.predicted [Volume Rate/Area] in Serum, Plasma or Blood by Creatinine-based formula (CKD-EPI) 04/27/2022 10:04:30 37 Below low normal >=60 (mL/min) Final Performing Location [email or web address] [address] [place] [address]
--- OUTSIDE RECORDS SUMMARY | 2023-01-22 22:49 | External Medical Summary | Summary of Care ---
Author Name Unknown Organization [place] [address] Care Team Providers Care Audiovisual Equipment Operator Name Role Phone Nhi Florian DO Primary Care Provider [phone] Reason for Visit * Reason Comments eRx-Medication Refill Encounter Details Date Type Department Care Team Description 05/01/2022 Refill Family Practice Festus Carpenter [place] [address] [facility] [place] [address] Nhi Florian DO [address] [facility] [place] [address] HTN, goal below 140/90 Allergies Active Allergy Reactions Severity Noted Date Comments Escitalopram 04/27/2022 "Didn't feel right" documented as of this encounter (statuses as of 05/02/2022) Medications Medication Sig Dispensed Refills Start Date [...] once daily 90 Tablet 2 10/07/2021 Active Famotidine 10 MG Oral Tablet (Pepcid)Indication [...] once daily 90 Tablet 1 05/02/2022 Active Furosemide 20 MG Oral Tablet (Lasix)Indications :HTN, goal below 140/90 take 1 tablet by mouth once daily 90 Tablet 1 11/03/2021 2 Discontinued documented as of this encounter (statuses as of 05/02/2022) Active Problems Problem Noted Date Chronic kidney disease, stage 3b 021 Overview: Per CKD protocol 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 09/29/2020 Overview: Per CKD protocol History of deep vein thrombosis (DVT) of lower extremity 09/08/2016 Status post insertion of drug eluting co ronary artery stent 04/07/2015 Overview: 2009, DUS placed in the mid RCA at [facility] Asymptomatic bilateral carotid artery st enosis 06/10/2014 Raynaud phenomenon 06/13/2011 Knee joint replacement status 01/13/2011 Overview: 2014, right Dr Ricardo [facility] 2011: left Dr Priya Ricardo [facility] Dyslipidemia, goal LDL below 70 09/21/19 11 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 neurogenic claudication 02/17/2010 Vitamin D deficiency 10/13/2009 Chronic ischemic heart disease 0 S/P angioplasty with stent 06/30/2009 Overview: 07/01/2009 DUS in the RCA at [facility] Non-toxic multinodular goiter 04/21/2009 Overview: seen [...] as of this encounter (statuses as of 05/02/2022) Resolved Problems Problem Noted Date Resolved Date [...] as of this encounter (statuses as of 05/02/2022) Immunizations Name Administration Dates Next Due COVID-19 [...] encounter Miscellaneous Notes * Telephone Encounter - David Taylor RPh - 05/02/2022 11:18 AM ESTSigned Prescriptions: Disp Refills Furosemide 20 MG Oral Tablet (Lasix) 90 Tab*1 Sig: take 1 tabletby mouth once dailyAuthorizing Provider: NHI FLORIAN User: DAVID TAYLOR-------- documented in this encounter Plan of Treatment Upcoming Encounters Date Type Specialty Care Team Description 05/09/2022 Office Visit Family Medicine Nhi Florian, DO [address] [facility], [place] [id number] 10/26/2022 Office Visit Cardiology Yvon Harris PA-C [address] [facility] [place] [address] 01/18/2023 Nurse Only Ancillary [place], Nurse Annual Wellness Scenery [address] [facility] [address] Health Maintenance Due Date Last Done Comments Hepatitis B (1 of 3 - 3-dose series) 1935 DXA Scan 10/30/2020 10/30/2013, 10/20, 08/24/2009, Additional history exists COVID-19 Vaccine (4 - Booster for Moderna series) 07/02/2021 05/07/2021, 07/30/2020, 07/02/2020 CKD PHOS USE SMARTSET 91282 10/19/202209/21, 11/18/2019, 07/15/2019, Additional history exists Alb / Creat Ratio 01/17/2023 01/17/2022, 04/11/2016 Depression Screening, Annual for Pts 12 and Over 01/17/2023 01/17/2022 CKD HGB USE SMARTSET 95072 04/27/202304/27, 04/27/2022, 10/19/2021, Additional history exists DTaP,Tdap,and [...] hypertension documented in this encounter Care Teams Audiovisual Equipment Operator Relationship Specialty Start Date End Date Nhi Florian, DO [address] [facility] [place] [address] PCP - General Family Medicine 11/28/16 documented as of this encounter
--- OUTSIDE RECORDS SUMMARY | 2023-01-22 22:49 | External Medical Summary | Summary of Care ---
Author Name Unknown Organization [place] [address] Care Team Providers Care National Service Officer Name Role Phone Bj Mario DO Primary Care Provider [phone] Reason for Visit * Reason Comments Follow Up Encounter Details Date Type Department Care Team Description 05/09/2022 Office Visit Family Practice [facility] [address] [place] [address] [facility] [place] [id number] Bj Mario DO [address] [place] [id number] Hyperparathyroidism, primary (HCC)*; 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 neurogenic claudication; Cervicalgia Allergies Active Allergy Reactions Severity Noted Date Comments Escitalopram 04/27/2022 "Didn't feel right" documented as of this encounter (statuses as of 05/09/2022) Medications Medication Sig Dispensed Refills Start Date End Date Status ASPIRIN 81 MG PO CHEW One pill by mouth once a day with food 100 5 9 Active VITAMIN D 1000 UNIT PO CAPSIndications:V itamin D deficiency 1 capsule daily 30 Cap 11 0 Active nitroglycerin (NITROSTAT) 0.4 MG SUBLIndications:C hronic ischemic heart disease 1 every 5 min as needed with chest pain up to 3 doses in 15 minutes 25 Tab 11 8 Active Acetaminophen 500 MG Oral Tablet Take 500 mg by mouth every 6 hours as needed for Pain. 0 Active cyclobenzaprine (FLEXERIL) 5 MG TabletIndications :Spasm of muscle Take 1 Tab by mouth 2 times a day as needed for Muscle spasms. 60 Tab 5 9 Active Diclofenac Sodium (VOLTAREN) 1 % gelIndications:Ce rvicalgia Place 4 g topically on the skin 4 times a day. To affected area as directed. 100 g 5 0 Active travoprost, MAYA Free, (TRAVATAN Z) 0.004 % ophthalmic solution instill 1 drop into both eyes every evening 2.5 mL 5 0 Active Meclizine HCl 12.5 MG Oral Tablet (ANTIVERT)Indicat ions:Benign paroxysmal vertigo of left ear Take 1 Tab by mouth 3 times a day as needed for Dizziness. 30 Tab 0 0 Active Timolol Maleate 0.5 % Ophthalmic Solution (Timoptic) instill 1 drop into both eyes every morning 0 1 Active Metoprolol Succinate ER 25 MG Oral Tablet Extended Release 24 Hour (toPROL XL)Indications:Ch ronic ischemic heart disease Take 0.5 Tablets by mouth daily. 45 Tablet 3 1 Active Lisinopril 10 MG Oral Tablet (Prinivil)Indicat ions: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),Edema take 1 tablet by mouth once daily 90 Tablet 2 2 Active rOPINIRole HCl 0.25 MG Oral Tablet (Requip)Indicatio ns:Restless legs syndrome take 1 tablet by mouth at bedtime 90 Tablet 1 2 Active Rosuvastatin Calcium 20 MG Oral Tablet (Crestor)Indicati ons:Dyslipidemia, goal LDL below 70 take 1 tablet by mouth once daily 90 Tablet 1 2 Active Isosorbide Mononitrate ER 30 MG Oral Tablet Extended Release 24 Hour (Imdur)Indication s:Chronic ischemic heart disease take 1 tablet by mouth once daily 100 Tablet 3 2 Active Furosemide 20 MG Oral Tablet (Lasix)Indication s:HTN, goal below 140/90 take 1 tablet by mouth once daily 90 Tablet 1 2 Active traMADol HCl 50 MG Oral Tablet (Ultram)Indicatio ns: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 neurogenic claudication,Cerv icalgia Take 1 Tablet by mouth daily as needed for Pain, Severe. 30 Tablet 0 2 Active DULoxetine HCl 20 MG Oral Capsule Delayed Release Particles (Cymbalta)Indicat ions: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 neurogenic claudication,Cerv icalgia Take 1 Capsule by mouth in the morning. Do not cut, crush or chew. 30 Capsule 5 2 Active Famotidine 20 MG Oral Tablet (Pepcid) Take 1 Tablet by mouth every night at bedtime. 90 Tablet 3 2 Active Famotidine 10 MG Oral Tablet (Pepcid)Indicatio ns:Gastroesophage al reflux disease without esophagitis Take by mouth 1 Tablet in the morning. 90 Tablet 1 2 05/09/20 22 Discontinued traMADol HCl 50 MG Oral Tablet (Ultram)Indicatio ns: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 neurogenic claudication,Cerv icalgia Take by mouth 1 Tablet daily as needed for Pain, Severe. 30 Tablet 0 2 05/09/20 22 Discontinued(Ref ill) documented as of this encounter (statuses as of 05/09/2022) Active Problems Problem Noted Date Hyperparathyroidism, primary 05/09/2022 Chronic kidney disease, stage 3b 021 Overview: Per CKD protocol 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 09/29/2020 Overview: Per CKD protocol History of deep vein thrombosis (DVT) of lower extremity 09/08/2016 Status post insertion of drug eluting co ronary artery stent 04/07/2015 Overview: 2009, DUS placed in the mid RCA at [facility] Asymptomatic bilateral carotid artery st enosis 06/10/2014 Raynaud phenomenon 06/13/2011 Knee joint replacement status 01/13/2011 Overview: 2014, right Dr Ricardo [facility] 2011: left Dr Priya Ricardo [facility] Dyslipidemia, goal LDL below 70 09/21/19 11 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 neurogenic claudication 02/17/2010 Vitamin D deficiency 10/13/2009 Chronic ischemic heart disease 0 S/P angioplasty with stent 06/30/2009 Overview: 07/01/2009 DUS in the RCA at [facility] Non-toxic multinodular goiter 04/21/2009 Overview: seen [...] as of this encounter (statuses as of 05/09/2022) Resolved Problems Problem Noted Date Resolved Date [...] as of this encounter (statuses as of 05/09/2022) Immunizations Name Administration Dates Next Due COVID-19 [...] Sign Reading Time Taken Comments Blood Pressure 132/68 05/09/2022 12:28 PM EST Pulse 73 05/09/2022 12:28 PM EST Temperature 36.3 C (97.3 F) 05/09/2022 12:[address] Respiratory Rate - - Oxygen Saturation 98% 05/09/2022 12:28 PM EST Inhaled Oxygen Concentration - - Weight - - Height - - Body Mass Index - - documented in this encounter Progress Notes * Bj Mario, DO - 05/09/2022 12:52 PM EST Subjective: Eugenia Hu is a 87 year old female. Chief Complaint Patient presents with Follow Up HPI: Pt here in follow-up. She saw endocrine and was diagnosed with hyperparathyroidism. Feels done is seeing them. No kidney stones, no fractures, mood is steady. Up and down. Mood is effected by pain. Pain comes from her back mostly but sometimes in her groin. Using Tramadol as needed. Refill signedtoday. Seeing Dr. Hall at [facility] for neck. Won't do much for her low back. Pain goes down her legs. johnny her stomach isn't the best. NEeding to sit with her pillow elevated. Gets stuff up her throat. Last upper endoscopy discussed. Can consider scope if no better. PMHx, meds, and allergies reviewed Patient Active [...] 3b (HCC) N18.32 Hyperparathyroidism, primary (HCC) E21.0 Current Outpatient Medications Medication Sig Dispense Refill traMADol HCl 50 MG Oral Tablet (Ultram) Take 1 Tablet by mouth daily as needed for Pain, Severe. 30 Tablet 0 ASPIRIN 81 MG PO CHEW One pill by mouth once a day with food 100 5 VITAMIN D 1000 UNIT PO CAPS 1 capsule daily 30 Cap 11 nitroglycerin (NITROSTAT) 0.4 MG SUBL 1 every 5 min as needed with chest pain up to 3 doses in 15 minutes 25 Tab 11 Acetaminophen 500 MG Oral Tablet Take 500 mg by mouth every 6 hours as needed for Pain. cyclobenzaprine (FLEXERIL) 5 MG Tablet Take 1 Tab by mouth 2 times a day as needed for Muscle spasms. 60 Tab 5 Diclofenac Sodium (VOLTAREN) 1 % gel Place 4 g topically on the skin 4 times a day. To affectedarea as directed. 100 g 5 travoprost, MAYA Free, (TRAVATAN Z) 0.004 % ophthalmic solution instill 1 drop into both eyes every evening 2.5 mL 5 Meclizine HCl 12.5 MG Oral Tablet (ANTIVERT) Take 1 Tab by mouth 3 times a day as needed for Dizziness. 30 Tab 0 Timolol Maleate 0.5 % Ophthalmic Solution (Timoptic) instill 1 drop into both eyes every morning Metoprolol Succinate ER 25 MG Oral Tablet Extended Release 24 Hour (toPROL XL) Take 0.5 Tabletsby mouth daily. 45 Tablet 3 Lisinopril 10 MG Oral Tablet (Prinivil) take 1 tablet by mouth once daily 90 Tablet 2 Famotidine 10 MG Oral Tablet (Pepcid) Take by mouth 1 Tablet in the morning. 90 Tablet 1 rOPINIRole [...] Lexapro [Escitalopram] "Didn't feel right" OBJECTIVE: BP 132/68 | Pulse 73 | Temp 36.3 C (97.3 F) (Tympanic) | SpO2 98% Estimated body mass index is 32.61 kg/m as calculated from the following: Height as of 02/08/22: 1.59 m (5' 2.6"). Weight as of 04/27/22: 82.4 kg (181 lb 12 oz). BP Readings from Last 3 Encounters: 05/09/22 132/68 04/27/22 132/78 02/16/22 137/74 Wt Readings from Last 3 Encounters: 04/27/22 82.4 kg (181 lb 12 oz) 02/08/22 84.4 kg (186 lb) 01/17/22 84.6 kg (186 lb 6.4 oz) ROS: Negative except for above PHYSICAL EXAM: General: alert, healthy and no distress Head: Normocephalic, No masses, lesions, tenderness or abnormalities Heart: regular rate & rhythm, no murmur and no gallops Lungs: chest symmetric with normal AP diameter, no chest deformities noted, no chest wall tenderness, lungs clear to auscultation Abdomen: abdomen soft, non-tender, normal bowel sounds and no masses or organomegaly ASSESSMENT/Plan Hyperparathyroidism, primary (HCC) (Primary) 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 neurogenic claudication - traMADol HCl 50 MG Oral Tablet (Ultram); Take 1 Tablet by mouth daily as needed for Pain, Severe. - DULoxetine HCl 20 MG Oral Capsule Delayed Release Particles (Cymbalta); Take 1 Capsule by mouth in the morning. Do not cut, crush or chew. Cervicalgia - traMADol HCl 50 MG Oral Tablet (Ultram); Take 1 Tablet by mouth daily as needed for Pain, Severe. - DULoxetine HCl 20 MG Oral Capsule Delayed Release Particles (Cymbalta); Take 1 Capsule by mouth in the morning. Do not cut, crush or chew. Other orders - Famotidine 20 MG Oral Tablet (Pepcid); Take 1 Tablet by mouth every night at bedtime. I spent a total of 30 minutes on the date of service in preparation, delivery, and documentation ofthe care provided to this patient, excluding any time spent on the performance of any procedure or separately billable services. Increase Pepcid Try Cymbalta for overall pain. The above was discussed and understanding was expressed. Bj Mario DO documented in this encounter Nursing Notes * Loretta Root LPN - 05/09/2022 12:27 PM EST Eugenia Hu presents for 6 month recheck. Medications & HM reviewed. Patient would like a refill of tramadol. Says her pain is getting worse and she's had to take it more often than she used to. documented in this encounter Plan of Treatment Upcoming Encounters Date Type Specialty Care Team Description 10/26/2022 Office Visit Cardiology Yvon Harris PA-C [address] [facility] [place] [id number] 11/14/2022 Office Visit Family Medicine Bj Mario DO [address] [place] [id number] 01/18/2023 Nurse Only Ancillary Pauline, Nurse [facility] [address] [place] [id number] Health Maintenance Due Date Last Done Comments DXA Scan 10/30/2020 10/30/2013, 10/20, 08/24/2009, Additional history exists COVID-19 Vaccine (4 - Booster for Moderna series) 07/02/2021 05/07/2021, 07/30/2020, 07/02/2020 CKD PHOS USE SMARTSET [id number] 10/19/2022 05/05/2021, 11/18/2019, 07/15/2019, Additional history exists Alb / Creat Ratio 01/17/2023 01/17/2022, 04/11/2016 Depression Screening, Annual for Pts 12 and Over 01/17/2023 01/17/2022 CKD HGB USE SMARTSET 48341 04/27/202304/27, 04/27/2022, 10/19/2021, Additional history exists DTaP,Tdap,and [...] as of this encounter Visit Diagnoses Diagnosis Hyperparathyroidism, primary (HCC)- Primary Primary hyperparathyroidism 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 neurogenic claudication Spinal stenosis, lumbar region, without neurogenic claudication Cervicalgia documented in this encounter Care Teams National Service Officer Relationship Specialty Start Date End Date Bj Mario, DO [address] [place] [address] PCP - General Family Medicine 11/28/16 documented as of this encounter
--- OUTSIDE RECORDS SUMMARY | 2023-01-22 22:49 | External Medical Summary | Summary of Care ---
Author Name Unknown Organization [place] [address] Care Team Providers Care Production Helper Name Role Phone Bj Mario DO Primary Care Provider [phone] Reason for Referral * Medication Prior Authorization - Pending Review Specialty Diagnoses / Procedures Referred By Love gamboa Referred To Contact Diagnoses Spinal stenosis of lumbar region with radiculopathy Leonel Burns PA-C [address] [place] [address] Referral ID Status Reason Start Date Expiration Date V isits Requested Visits Authorized [id number] Pending Review [phone] Reason for Visit * Reason Comments Acute Patient presents wit h concerns for on going back/coccyx pain for 1 month that continues to worsen over time. Patient states last spring she tried PT and did not have much relief. Patient has not had recent imagining but states and MRI was preformed last year for the same reason. Denied any injury. Encounter Details Date Type Department Care Team Description 07/04/2022 Office Visit General Internal Medicine State Raquel Roger [address] [place] [id number] Leonel Burns PA-C 200 [facility] [place] [address] Spinal stenosis of lumbar region with radiculopathy*; Chronic ischemic heart disease; 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); Hyperparathyroidism, primary (HCC) Allergies Active Allergy Reactions Severity Noted Date Comments Escitalopram 04/27/2022 "Didn't feel right" documented as of this encounter (statuses as of 07/05/2022) Medications Medication Sig Dispensed Refills Start Date [...] mouth daily. 45 Tablet 3 1 Active rOPINIRole HCl 0.25 MG Oral Tablet [...] 15 minutes 25 Tablet 11 3 Active Gabapentin 100 MG Oral Capsule (Neurontin)Indicat ions:Spinal stenosis of lumbar region with radiculopathy Take 1 Capsule by mouth in the morning and 1 Capsule in the evening. 60 Capsule 5 3 Active nitroglycerin (NITROSTAT) 0.4 MG SUBLIndications:Ch ronic ischemic heart disease 1 every 5 min as needed with chest pain up to 3 doses in 15 minutes 25 Tab 11 8 07/04/19 23 Discontinued(Ref ill) cyclobenzaprine (FLEXERIL) 5 MG TabletIndications: Spasm of muscle Take 1 Tab by mouth 2 times a day as needed for Muscle spasms. 60 Tab 5 9 07/04/19 23 Discontinued Meclizine HCl 12.5 MG Oral Tablet (ANTIVERT)Indicati ons:Benign paroxysmal vertigo of left ear Take 1 Tab by mouth 3 times a day as needed for Dizziness. 30 Tab 0 0 07/04/19 23 Discontinued(Ref ill) DULoxetine HCl 20 MG Oral Capsule Delayed Release Particles (Cymbalta)Indicati ons: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 neurogenic claudication,Cervi calgia Take 1 Capsule by mouth in the morning. Do not cut, crush or chew. 30 Capsule 5 2 07/04/19 23 Discontinued Meclizine HCl 12.5 MG Oral Tablet (Antivert) Take 1 Tablet by mouth 3 times a day as needed for Dizziness. 30 Tablet 0 3 07/04/19 23 Discontinued documented as of this encounter (statuses as of 07/05/2022) Active Problems Problem Noted Date Benign hypertension with CKD (chronic ki dney disease) stage III 07/04/2022 Hyperparathyroidism, primary 05/09/2022 Chronic kidney disease, stage 3b 06/15/2 021 Overview: Per CKD protocol 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 09/29/2020 Overview: Per CKD protocol History of deep vein thrombosis (DVT) of lower extremity 09/08/2016 Status post insertion of drug eluting co ronary artery stent 04/07/2015 Overview: 2009, DUS placed in the mid RCA at [facility] Asymptomatic bilateral carotid artery st enosis 06/10/2014 Raynaud phenomenon 06/13/2011 Knee joint replacement status 01/13/2011 Overview: 2014, right Dr Ricardo [facility] 2011: left Dr Priya Ricardo [facility] Dyslipidemia, goal LDL below 70 09/21/19 11 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 neurogenic claudication 02/17/2010 Vitamin D deficiency 10/13/2009 Chronic ischemic heart disease 0 S/P angioplasty with stent 06/30/2009 Overview: 07/01/2009 DUS in the RCA at [facility] Non-toxic multinodular goiter 04/21/2009 Overview: seen on [...] as of this encounter (statuses as of 07/05/2022) Resolved Problems Problem Noted Date Resolved Date [...] as of this encounter (statuses as of 07/05/2022) Immunizations Name Administration Dates Next Due COVID-19 [...] Sign Reading Time Taken Comments Blood Pressure 150/68 07/04/2022 3:38 PM EST Pulse 65 07/04/2022 3:38 PM EST Temperature 35.6 C (96.1 F) 07/04/2022 3:38 PM ES T Respiratory Rate - - Oxygen Saturation 97% 07/04/2022 3:38 PM EST Inhaled Oxygen Concentration - - Weight 84.5 kg (186 lb 3.2 oz) 07/04/2022 3:38 P M EST Height 158.8 cm (5' 2.5") 07/04/2022 3:38 PM EST Body Mass Index 33.51 07/04/2022 3:38 PM EST documented in this encounter Progress Notes * Paul Dykes DO - 07/05/2022 7:21 AM EST Last injection was in 2021. Will [address] injection order. * Leonel Burns PA-C - 07/04/2022 3:41 PM EST Subjective: Eugenia Hu is a 87 year old female. Chief Complaint Patient presents with Acute Patient presents with concerns for on going back/coccyx pain for 1 month that continues to worsen over time. Patient states last spring she tried PT and did not have much relief. Patient has not had recent imagining but states and MRI was preformed last year for the same reason. Denied any injury. HPI: 87 y/o female with macular degeneration, glaucoma, HTN, HLD, CAD, CKD III, hyperparathyroidismseen today with complaint of return of low back pain return with bilateral radiculopathy that is absent at rest and worse with ambulation. Has MRI year ago with follow up JACKIE with improvement. Has one in January recently with improvement. Has not reached back out to pain management. Not using much Tylenol. Does not want to use Tramadol prescribed due to being concerned for addition. "space cadet" with cymbalta. Only used for about three days. Flexeril makes her lethargic. PMH: Patient Active Problem List Diagnosis Code Advance [...] kidney disease) stage III (HCC) I12.9, N18.30 Current Outpatient Medications Medication Sig [...] 0.5 Tabletsby mouth daily. 45 Tablet 3 rOPINIRole HCl 0.25 MG Oral Tablet (Requip) [...] doses in 15 minutes 25 Tablet 11 Gabapentin 100 MG Oral Capsule (Neurontin) Take 1 Capsule by mouth in the morning and 1 Capsulein the evening. 60 Capsule 5 No current facility-administered medications for this visit. Review of patient's allergies indicates: Allergen Reactions Lexapro [Escitalopram] "Didn't feel right" All other review of systems reviewed and negative other than mentioned in HPI. Objective: BP 150/68 | Pulse 65 | Temp 35.6 C (96.1 F) | Ht 1.588 m (5' 2.5") | Wt 84.5 kg (186 lb 3.2 oz)| SpO2 97% | BMI 33.51 kg/m | BSA 1.93 m Results for orders placed or performed in visit on 04/27/22 LIPID PANEL WITH DIRECT LDL IF TG IS HIGH Result Value Ref Range Triglycerides 122 <=174 mg/dL Cholesterol 142 <200 mg/dL HDL Cholesterol 55 >49 mg/dL Non-HDL Cholesterol 87 <=159 mg/dL LDL Cholesterol 63 <=129 mg/dL COMPREHENSIVE METABOLIC PANEL Result Value Ref Range BUN 17 6 - 20 mg/dL Creatinine 1.4 (H) 0.5 - 1.0 mg/dL Estimated Glomerular Filtration Rate 37 (L) >=60 mL/min Sodium 142 135 - 146 mmol/L Potassium 4.4 3.5 - 5.1 mmol/L Chloride 107 98 - 107 mmol/L CO2 24 22 - 32 mmol/L Anion Gap 11 7 - 15 mmol/L Glucose 108 70 - 120 mg/dL Albumin 4.1 3.8 - 5.0 g/dL AST 22 10 - 35 U/L Alkaline Phosphatase 87 35 - 130 U/L Bilirubin, Total 0.4 <=1.2 mg/dL Calcium 10.6 (H) 8.4 - 10.2 mg/dL Protein 6.8 6.0 - 8.3 g/dL ALT 12 10 - 35 U/L TSH WITH FREE T4 IF INDICATED Result Value Ref Range TSH 1.79 0.27 - 4.20 uIU/mL MAGNESIUM Result Value Ref Range Magnesium 1.8 1.5 - 2.6 mg/dL ANEMIA CBC Result Value Ref Range WBC 6.28 4.00 - 10.80 K/uL RBC 4.20 3.85 - 5.15 M/uL HGB 13.1 12.0 - 15.3 g/dL HCT 42.4 36.0 - 45.2 % MCV 101.0 81.5 - 97.5 fL MCH 31.2 27.0 - 34.0 pg MCHC 30.9 32.0 - 36.0 g/dL RDW 13.1 11.5 - 15.5 % PLT 285 140 - 400 K/uL MPV 10.3 6.6 - 11.1 fL nRBCs 0 <=0 /100 WBCs DIFFERENTIAL, AUTOMATED Result Value Ref Range WBC 6.28 4.00 - 10.80 K/uL Neutrophils % 63.5 40.0 - 75.0 % Lymphocytes % 22.8 18.0 - 42.0 % Monocytes % 9.6 1.0 - 11.0 % Eosinophils % 3.0 0.0 - 6.0 % Basophils % 0.6 0.0 - 2.0 % Immature Granulocytes % 0.5 0.0 - 2.0 % Absolute Neutrophils 3.99 1.80 - 7.70 K/uL Absolute Lymphocytes 1.43 1.00 - 4.80 K/ul Absolute Monocytes 0.60 0.00 - 1.10 K/uL Absolute Eosinophils 0.19 0.00 - 0.70 K/uL Absolute Basophils 0.04 0.00 - 0.20 K/uL Absolute Immature Granulocytes 0.03 0.00 - 0.20 K/uL 01/28/22 pain medicine note: RECOMMENDATION: Progressive low back pain with R LE radiculopathy. Associated paresthesia, follows L5/S1 pattern. Discussed repeat JACKIE as this has provided benefit in the past. Reviewed updated L spine MRI - severe central stenosis L4/5 with moderate to severe B foraminal narrowing, moderate central and foraminal narrowing bilaterally L5/S1. Risks of JACKIE including, but not limited to, bleeding, infection, worsening pain, nerve injury and possible steroid side effects were reviewed. Due to severity and durationof symptoms, will schedule caudal JACKIE. Follow up four weeks after procedure. Reviewed MRI report with main findings listed above Physical Exam Constitutional: General: She is not in acute distress. Appearance: She is normal weight. She is not ill-appearing or toxic-appearing. Musculoskeletal: Comments: 5/5 strength to hip flexion, knee flexion and extension, dorsiflexion and plantar flexion. Neurological: General: No focal deficit present. Mental Status: She is alert. Mental status is at baseline. Sensory: No sensory deficit. Motor: No weakness. Gait: Gait abnormal. Deep Tendon Reflexes: Reflexes normal. Psychiatric: Mood and Affect: Mood normal. ASSESSMENT: Spinal stenosis of lumbar region with radiculopathy (Primary) - Gabapentin 100 MG Oral Capsule (Neurontin); Take 1 Capsule by mouth in the morning and 1 Capsule in the evening. Past treatment as noted above. Did send notification to pain medicine that she would like to be seen for infection again. Recommend she call as well. Stop cymbalta as did not tolerate. Stop flexeril as just makes lethargic and does not improve pain. More likely to have adverse effectfrom use. Discussed tylenol 500 mg q6 hours. Can use a tramadol if pain severe. Can trial gabapentin. Did discuss possible neurologic and GI side effects that are common. 100 mg at bedtime for 4-5 days then increase to BID to note response. Chronic ischemic heart disease - Nitroglycerin 0.4 MG Sublingual Tablet Sublingual (Nitrostat); 1 every 5 min as needed with chestpain up to 3 doses in 15 minutes Has not needed. Current script out dated and would like new. 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) Dicussed max dose of gabapentin 600 mg daily based on renal function Hyperparathyroidism, primary (HCC) Calcium 10.6 on recent labs. Follow up with PCP Follow-up: Return if symptoms worsen or fail to improve. | Check-out note: Follow up with Dr. Culp (pain medicine) Leonel Burns PA-C documented in this encounter Nursing Notes * Judy Lawrence CMA - 07/04/2022 3:38 PM EST Chief Complaint Patient presents with Acute Patient presents with concerns for on going back/coccyx pain for 1 month that continues to worsen over time. Patient states last spring she tried PT and did not have much relief. Patient has not had recent imagining but states and MRI was preformed last year for the same reason. Denied any injury. documented in this encounter Miscellaneous Notes * Addendum Note - Paul Dykes DO - 07/05/2022 7:22 AM ESTAddended by: PAUL DYKES on: 07/05/2022 07:22 AM Modules accepted: Orders documented in this encounter Plan of Treatment Upcoming Encounters Date Type Specialty Care Team Description 10/26/2022 Office Visit Cardiology Yvon Harris PA-C [address] [place] [address] [place] [address] 11/14/2022 Office Visit Family Medicine Bj Mario DO [address] [place] [address] 01/18/2023 Nurse Only Ancillary Pauline Nurse [facility] [address] [place] [address] Scheduled Orders Name Type Priority Associated Diagnoses Orde r Schedule INJECT DX/THER SUBSTANCE INTERLAMINAR LUMBAR/SACRAL W IMAGE GUIDE Procedures Routine Spinal stenosis of lumbar region with radiculopathy Ordered: 07/05/2022 Health Maintenance Due Date Last Done Comments DXA Scan 10/30/2020 10/30/2013, 10/20, 08/24/2009, Additional history exists COVID-19 Vaccine (4 - Booster for Moderna series) 07/02/2021 05/07/2021, 07/30/2020, 07/02/2020 CKD PHOS USE SMARTSET 37440 10/19/202209/21, 11/18/2019, 07/15/2019, Additional history exists Alb / Creat Ratio 01/17/2023 01/17/2022, 04/11/2016 Depression Screening, Annual for Pts 12 and Over 01/17/2023 01/17/2022 CKD HGB USE SMARTSET 55340 04/27/202304/27, 04/27/2022, 10/19/2021, Additional history exists DTaP,Tdap,and [...] Diagnosis Spinal stenosis of lumbar region with radiculopathy- Primary Spinal stenosis, lumbar region, without neurogenic claudication Chronic ischemic heart disease Chronic ischemic heart disease, unspecified 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 I through stage IV, or unspecified Hyperparathyroidism, primary (HCC) Primary hyperparathyroidism documented in this encounter Care Teams Production Helper Relationship Specialty Start Date End Date Bj Mario, DO [address] [facility] [place] [address] PCP - General Family Medicine 11/28/16 documented as of this encounter
--- OUTSIDE RECORDS SUMMARY | 2023-01-22 22:49 | External Medical Summary | Summary of Care ---
Author Name Unknown Organization [place] [address] Care Team Providers Care Re Etcher Name Role Phone Bj Mario DO Primary Care Provider [phone] Reason for Referral * Medication Prior Authorization - Pending Review Specialty Diagnoses / Procedures Referred By Love gamboa Referred To Contact Diagnoses Spinal stenosis of lumbar region with radiculopathy Leonel Burns PA-C [address] [place] [address] Referral ID Status Reason Start Date Expiration Date V isits Requested Visits Authorized [id number] Pending Review [phone] Reason for Visit [...] State Raquel Roger [address] [place] [address] [address] Leonel Burns PA-C 200 [facility] [place] [address] Spinal stenosis of lumbar region with radiculopathy*; Chronic ischemic heart disease; 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); Hyperparathyroidism, primary (HCC) Allergies Active Allergy Reactions Severity Noted Date Comments Escitalopram 04/27/2022 "Didn't feel right" documented as of this encounter (statuses as of 07/04/2022) Medications Medication Sig Dispensed Refills Start Date [...] as of this encounter (statuses as of 07/04/2022) Active Problems Problem Noted Date Benign hypertension [...] in the mid RCA at [facility] Asymptomatic bilateral carotid artery st enosis 06/10/2014 Raynaud phenomenon 06/13/2011 Knee joint replacement status 01/13/2011 Overview: 2014, right Dr Ricardo [facility] 2011: left Dr Pryia Ricardo [facility] Dyslipidemia, goal LDL below 70 09/21/19 11 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 neurogenic claudication 02/17/2010 Vitamin D deficiency 10/13/2009 Chronic ischemic heart disease 0 S/P angioplasty with stent 06/30/2009 Overview: 07/01/2009 DUS in the RCA at [facility] Non-toxic multinodular goiter 04/21/2009 Overview: seen on [...] as of this encounter (statuses as of 07/04/2022) Resolved Problems Problem Noted Date Resolved Date [...] as of this encounter (statuses as of 07/04/2022) Immunizations Name Administration Dates Next Due COVID-19 [...] documented in this encounter Progress Notes * Leonel Burns PA-C - 07/04/2022 3:41 [...] disease, stage 3b (HCC) N18.32 Hyperparathyroidism, primary ([facility]) E21.0 Benign hypertension with CKD [...] Denied any injury. documented in this encounter Plan of Treatment Upcoming Encounters Date Type Specialty Care Team Description 10/26/2022 Office Visit Cardiology Yvon Harris PA-C [address] [facility] [place] [address] 11/14/2022 Office Visit Family Medicine Bj Mario, DO [address] [place] [address] 01/18/2023 Nurse Only Ancillary Pauline, Nurse [facility] [address] [place] [address] Health Maintenance Due Date Last Done Comments DXA Scan 10/30/2020 10/30/2013, 10/20, 08/24/2009, Additional history exists COVID-19 Vaccine (4 - Booster for Moderna series) 07/02/2021 05/07/2021, 07/30/2020, 07/02/2020 CKD PHOS USE SMARTSET 47977 10/19/202209/21, 11/18/2019, 07/15/2019, Additional history exists Alb / Creat Ratio 01/17/2023 01/17/2022, 04/11/2016 Depression Screening, Annual for Pts 12 and Over 01/17/2023 01/17/2022 CKD HGB USE SMARTSET 30338 04/27/202304/27, 04/27/2022, 10/19/2021, Additional history exists DTaP,Tdap,and [...] hyperparathyroidism documented in this encounter Care Teams Re Etcher Relationship Specialty Start Date End Date Bj Mario, [address] [place] [address] PCP - General Family Medicine 11/28/16 documented as of this encounter
--- OUTSIDE RECORDS SUMMARY | 2023-01-22 22:49 | External Medical Summary | Summary of Care ---
Author Name Unknown Organization [place] [address] Care Team Providers Care Puppy Trainer Name Role Phone Nhi Florian DO Primary Care Provider [phone] Reason for Visit * Reason Comments eRx-Medication Refill Encounter Details Date Type Department Care Team Description 06/28/2022 Refill Family Practice [facility] [place] [address] [place] [address] Nhi Florian DO [address] [place] [address] 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); Edema Allergies Active Allergy Reactions Severity Noted Date Comments Escitalopram 04/27/2022 "Didn't feel right" documented as of this encounter (statuses as of 06/29/2022) Medications Medication Sig Dispensed Refills Start Date [...] mouth daily. 45 Tablet 3 04/19/2021 Active rOPINIRole HCl 0.25 MG Oral Tablet [...] Pain, Severe. 30 Tablet 0 05/09/2022 Active DULoxetine HCl 20 MG Oral Capsule Delayed Release Particles (Cymbalta)Indicati ons: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 neurogenic claudication,Cervi calgia Take 1 Capsule by mouth in the morning. Do not cut, crush or chew. 30 Capsule 5 05/09/2022 Active Famotidine 20 MG Oral Tablet (Pepcid) Take 1 Tablet by mouth every night at bedtime. 90 Tablet 3 05/09/2022 Active Lisinopril 10 MG Oral Tablet (Prinivil)Indicati ons: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),Edema take 1 tablet by mouth once daily 90 Tablet 3 06/29/2022 Active Lisinopril 10 MG Oral Tablet (Prinivil)Indicati ons: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),Edema take 1 tablet by mouth once daily 90 Tablet 2 10/07/2021 3 Discontinued documented as of this encounter (statuses as of 06/29/2022) Active Problems Problem Noted Date Hyperparathyroidism, primary 05/09/2022 Chronic kidney disease, stage 3b 021 Overview: Per CKD protocol 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 09/29/2020 Overview: Per CKD protocol History of deep vein thrombosis (DVT) of lower extremity 09/08/2016 Status post insertion of drug eluting co ronary artery stent 04/07/2015 Overview: 2009, DUS placed in the mid RCA at [facility] Asymptomatic bilateral carotid artery st enosis 06/10/2014 Raynaud phenomenon 06/13/2011 Knee joint replacement status 01/13/2011 Overview: 2014, right Dr Ricardo [facility] 2011: left Dr Priya Ricardo [facility] Dyslipidemia, goal LDL below 70 09/21/19 11 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 neurogenic claudication 02/17/2010 Vitamin D deficiency 10/13/2009 Chronic ischemic heart disease 0 S/P angioplasty with stent 06/30/2009 Overview: 07/01/2009 DUS in the RCA at [facility] Non-toxic multinodular goiter 04/21/2009 Overview: [...] as of this encounter (statuses as of 06/29/2022) Resolved Problems Problem Noted Date Resolved Date [...] as of this encounter (statuses as of 06/29/2022) Immunizations Name Administration Dates Next Due COVID-19 [...] at Date Recorded Female 09/14/2018 8:42 AM EDT Job Start Date Occupation Industry Not on file Not on file Not on file documented as of this encounter Miscellaneous Notes * Telephone Encounter - Ruby Beltran, [facility] - 06/29/2022 9:13 AM ESTSigned Prescriptions: Disp Refills Lisinopril 10 MG Oral Tablet (Prinivil) 90 Tab*3 Sig: take 1 tablet by mouth once dailyAuthorizing Provider: NHI FLORIAN User: RUBY BELTRAN------ documented in this encounter Plan of Treatment Upcoming Encounters Date Type Specialty Care Team Description 10/26/2022 Office Visit Cardiology Yvon Harris PA-C [address] [facility] [place] [address] 11/14/2022 Office Visit Family Medicine Nhi Florian DO [address] [place] [address] 01/18/2023 Nurse Only Ancillary Nurse Pauline [facility] [address] [place] [address] Health Maintenance Due Date Last Done Comments DXA Scan 10/30/2020 10/30/2013, 10/20, 08/24/2009, Additional history exists COVID-19 Vaccine (4 - Booster for Moderna series) 07/02/2021 05/07/2021, 07/30/2020, 07/02/2020 CKD PHOS USE SMARTSET [id number] 10/19/202209/21, 11/18/2019, 07/15/2019, Additional history exists Alb / Creat Ratio 01/17/2023 01/17/2022, 04/11/2016 Depression Screening, Annual for Pts 12 and Over 01/17/2023 01/17/2022 CKD HGB USE SMARTSET [id number] 04/27/202304/27, 04/27/2022, 10/19/2021, Additional history exists DTaP,Tdap,and [...] stage I through stage IV, or unspecified Edema documented in this encounter Care Teams Puppy Trainer Relationship Specialty Start Date End Date Nhi Florian, DO [address] [place] [address] PCP - General Family Medicine 11/28/16 documented as of this encounter
--- OUTSIDE RECORDS SUMMARY | 2023-01-22 22:49 | External Medical Summary ---
Author Name Unknown Address Unknown Organization K01:[facility] [place] [address] [address] Laboratory Report Ordering Provider Test Date Status SRINI RUCKER 04/27/2022 10:04:30 Final Observation Date Value Abnormality Reference (Units ) Status WBC, Total 04/27/2022 10:04:30 6.28 4.00-10.8 0 (K/uL) Final RBC 04/27/2022 10:04:30 4.20 3.85-5.15 (M/uL) Final Hemoglobin 04/27/2022 10:04:30 13.1 12.0-15.3 (g/dL) Final Performing Location [facility] - [address] [place] [address]
--- OUTSIDE RECORDS SUMMARY | 2023-01-22 22:50 | External Medical Summary | Summary of Care ---
Author Name Unknown Organization [place] [address] Care Team Providers Care Financial Analyst Name Role Phone Bj Mario DO Primary Care Provider [phone] [phone] Encounter Details Date Type Department Care Team Description 09/22/2021 Orders Only [facility], [facility] [address] [place] [address] [place] [address] [place] [address] Allergies No known active allergiesdocumented as of this encounter (statuses as of 02/07/2022) Medications Medication Sig Dispensed Refills Start Date End Date Status ASPIRIN 81 MG PO CHEW One pill by mouth once a day with food 100 5 08/06/2008 Active VITAMIN D 1000 UNIT PO CAPSIndications:Carmel min D deficiency 1 capsule daily 30 Cap 11 10/13/2009 Active nitroglycerin (NITROSTAT) 0.4 MG SUBLIndications:[employer] Car Loader jose alberto ischemic heart disease 1 every 5 min as needed with chest pain up to 3 doses in 15 minutes 25 Tab 11 10/09/2017 Active acetaminophen (TYLENOL EXTRA STRENGTH) 500 MG Tablet Take 500 mg by mouth every 6 hours as needed for Pain. 0 Active cyclobenzaprine (FLEXERIL) 5 MG TabletIndications:Sp asm of muscle Take 1 Tab by mouth 2 times a day as needed for Muscle spasms. 60 Tab 5 03/20/2019 Active Diclofenac Sodium (VOLTAREN) 1 % gelIndications:Cervi calgia Place 4 g topically on the skin 4 times a day. To affected area as directed. 100 g 5 09/03/2019 Active travoprost, MAYA Free, (TRAVATAN Z) 0.004 % ophthalmic solution instill 1 drop into both eyes every evening 2.5 mL 5 12/03/2019 Active Meclizine HCl 12.5 MG Oral Tablet (ANTIVERT)Indication s:Benign paroxysmal vertigo of left ear Take 1 Tab by mouth 3 times a day as needed for Dizziness. 30 Tab 0 04/25/2020 Active Timolol Maleate 0.5 % Ophthalmic Solution (Timoptic) instill 1 drop into both eyes every morning 0 11/25/2020 Active rOPINIRole HCl 0.25 MG Oral Tablet (Requip)Indications: Restless legs syndrome take 1 tablet by mouth at bedtime 90 Tab 3 02/08/2021 Active Isosorbide Mononitrate ER 30 MG Oral Tablet Extended Release 24 Hour (Imdur)Indications:C hronic ischemic heart disease Take 1 Tab by mouth daily. 100 Tab 3 03/17/2021 Active Metoprolol Succinate ER 25 MG Oral Tablet Extended Release 24 Hour (toPROL XL)Indications:Chron ic ischemic heart disease Take 0.5 Tablets by mouth daily. 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 Asymptomatic bilateral carotid artery st enosis 06/10/2014 Raynaud phenomenon 06/13/2011 Knee joint replacement status 01/13/2011 Overview: 2014, right Dr Ricardo [facility] 2011: left Dr Priya Ricardo [facility] Dyslipidemia, goal LDL below 70 09/21/19 11 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 neurogenic claudication 02/17/2010 Vitamin D deficiency 10/13/2009 Chronic ischemic heart disease 0 S/P angioplasty with stent 06/30/2009 Overview: 07/01/2009 DUS in the RCA at [facility] Non-toxic multinodular goiter 04/21/2009 Overview: seen [...] as of this encounter (statuses as of 02/07/2022) Resolved Problems Problem Noted Date Resolved Date [...] as of this encounter (statuses as of 02/07/2022) Immunizations Name Administration Dates Next Due COVID-19 [...] Never Used Alcohol Use Standard Drinks/Week Comments Yes 0 (1 standard drink = 0.6 oz pure alcohol) occ-once every couple of months Alcohol Habits Answer Date Recorded How often do you have a drin k containing alcohol? Not asked How many drinks containing a lcohol do you have on a typical day when you are drinking? Not asked How often do you have six or more drinks on one occasion? Not asked Comment: occ-once every couple of months 07/15/2019 Food Insecurity Answer Date Recorded Within the [...] Encounters Date Type Specialty Care Team Description 02/08/2022 Office Visit Family Medicine Bj Mario, DO [address] [place] [address] 02/16/2022 Hospital Encounter Surgery Paul Berg, [address] [place] [address] 02/16/2022 Surgery Surgery Paul Berg DO [address] [place] [address] INJECTION SPINE LUMBAR OR SACRAL 04/27/2022 Office Visit Cardiology Yvon Harris PA-C [address] [place] [address] 05/09/2022 Office Visit Family Medicine Bj Mario, DO [address] [place] [address] 01/18/2023 Nurse Only Ancillary Pauline, Nurse Annual Well[facility] [address] [place] [address] Scheduled Procedures Name Priority Associated Diagnoses Date/Ti me INJECTION SPINE LUMBAR OR SACRAL Lumbar radiculopathy 02/16/2022 1:00 PM EDT Health Maintenance Due Date Last Done Comments DXA Scan 10/30/2020 10/30/2013, 10/20, 08/24/2009, Additional history exists COVID-19 Vaccine (4 - Booster for Moderna series) 09/05/2021 05/07/2021, 07/30/2020, 07/02/2020 Influenza Vaccine (FLU shot) (#1) 2022 06/05/2020, 04/08/2020, 03/20/2019, Additional history exists CKD HGB USE SMARTSET 61676 10/19/202210/19, 10/30/2020, 04/06/2020, Additional history exists CKD PHOS USE SMARTSET 16077 10/19/202209/21, 11/18/2019, 07/15/2019, Additional history exists Alb [...] Procedure Name Priority Date/Time Associated Diagnosis Comments RADIOLOGY EXAM - GENERAL RAD (IMAGES ONLY,NO REPORT) Routine 09/22/2021 9:30 AM EDT documented in this encounter Results * RADIOLOGY EXAM - GENERAL RAD (IMAGES ONLY,NO REPORT) (09/22/2021 9:30 AM EDT) Specimen Narrative Scheduling, Silent - 02/07/2022 9:20 PM EDT This is an imaging study not interpreted or resulted by a [facility] or [facility] radiologist. documented in this encounter Advance Directives Documents on File Type Date Recorded Patient Security Operations Specialist Expl anation Advanced Directive service a [...] 08/13/2009 12:00 AM LIVING WILL Power of Motion Picture Operator 08/13/2009 12:00 AM DOMONIQUE R OF DATABASE ADMINISTRATION PROJECT MANAGER DURABLE HEALTH POA AND HEALTH CARE TREATMENT INSTR Power of Motion Picture Operator 08/13/2009 12:00 AM DOMONIQUE R OF DATABASE ADMINISTRATION PROJECT MANAGER DURABLE HEALTH CARE POA Care Teams Financial Analyst Relationship Specialty Start Date End Date Bj Mario, DO [address] [place] [address] PCP - General Family Medicine 11/28/16 documented as of this encounter
--- OUTSIDE RECORDS SUMMARY | 2023-01-22 22:50 | External Medical Summary | Summary of Care ---
Author Name Unknown Organization [place] [address] Care Team Providers Care Oil Gauger Name Role Phone Bj Mario DO Primary Care Provider [phone] Reason for Visit * Reason Onset Date Comments Pre Cert/Prior Auth 02/23/2022 Encounter Details Date Type Department Care Team Description 02/23/2022 Telephone Family Practice [facility] [place] [address] [place] [address] Bj Mario DO [address] [facility] [place] [address] Pre Cert/Prior Auth Allergies No known active allergiesdocumented as of this encounter (statuses as of 02/23/2022) Medications Medication Sig Dispensed Refills Start Date [...] once daily 90 Tablet 2 05/17/2021 Active Lisinopril 10 MG Oral Tablet (Prinivil)Indications [...] the morning. 30 Tablet 5 02/08/2022 Active documented as of this encounter (statuses as of 02/23/2022) Active Problems Problem Noted Date Chronic kidney disease, stage 3b 021 Overview: Per CKD protocol 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 09/29/2020 Overview: Per CKD protocol History of deep vein thrombosis (DVT) of lower extremity 09/08/2016 Status post insertion of drug eluting co ronary artery stent 04/07/2015 Overview: 2009, DUS placed in the mid RCA at [facility] Asymptomatic bilateral carotid artery st enosis 06/10/2014 Raynaud phenomenon 06/13/2011 Knee joint replacement status 01/13/2011 Overview: 2014, right Dr Ricardo [facility] 2011: left Dr Priya Ricardo [facility] Dyslipidemia, goal LDL below 70 09/21/19 11 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 neurogenic claudication 02/17/2010 Vitamin D deficiency 10/13/2009 Chronic ischemic heart disease 0 S/P angioplasty with stent 06/30/2009 Overview: 07/01/2009 DUS in the RCA at [facility] Non-toxic multinodular goiter 04/21/2009 Overview: seen [...] as of this encounter (statuses as of 02/23/2022) Resolved Problems Problem Noted Date Resolved Date [...] as of this encounter (statuses as of 02/23/2022) Immunizations Name Administration Dates Next Due COVID-19 [...] encounter Miscellaneous Notes * Telephone Encounter - Yanely Coe LPN - 02/23/2022 3:49 PM EDT Prior auth for Tramadol HCL 30 per 30 days 50mg was approved from 12/13/2021- 02/12/2023. Approval letter placed in scans documented in this encounter Plan of Treatment Upcoming Encounters Date Type Specialty Care Team Description 04/27/2022 Office Visit Cardiology Yvon Harris PA-C [address] [facility] [place] [address] 05/09/2022 Office Visit Family Medicine Bj Mario DO [address] [place] [address] 01/18/2023 Nurse Only Ancillary Nurse [place]ine [facility] [place] [address] [facility] [place] [address] Health Maintenance Due Date Last Done Comments DXA Scan 10/30/2020 10/30/2013, 10/20, 08/24/2009, Additional history exists COVID-19 Vaccine (4 - Booster for Moderna series) 07/02/2021 05/07/2021, 07/30/2020, 07/02/2020 Influenza Vaccine (FLU shot) (#1) 2022 06/05/2020, 04/08/2020, 03/20/2019, Additional history exists CKD HGB USE SMARTSET 44760 10/19/202210/19, 10/30/2020, 04/06/2020, Additional history exists CKD PHOS USE SMARTSET 20594 10/19/202209/21, 11/18/2019, 07/15/2019, Additional history exists Alb [...] Documents on File Type Date Recorded Patient Mds Nurse Expl anation Advanced Directive service a mike [...] 08/13/2009 12:00 AM LIVING WILL Power of Milk Pasteurizer 08/13/2009 12:00 AM DOMONIQUE R OF DISTILLING DEPARTMENT SUPERVISOR DURABLE HEALTH POA AND HEALTH CARE TREATMENT INSTR Power of Milk Pasteurizer 08/13/2009 12:00 AM DOMONIQUE R OF DISTILLING DEPARTMENT SUPERVISOR DURABLE HEALTH CARE POA Care Teams Oil Gauger Relationship Specialty Start Date End Date Bj Mario, DO [address] [place] [address] PCP - General Family Medicine 11/28/16 documented as of this encounter
--- OUTSIDE RECORDS SUMMARY | 2023-01-22 22:50 | External Medical Summary | Summary of Care ---
Author Name Unknown Organization [place] [address] Care Team Providers Care Job Coach Name Role Phone Nhi Florian DO Primary Care Provider [phone] [phone] Reason for Visit * Reason Comments eRx-Medication Refill Encounter Details Date Type Department Care Team Description 02/24/2022 Refill Family Practice [facility] [place] [address] [place] [address] Nhi Florian DO [address] [place] [address] Restless legs syndrome; Dyslipidemia, goal LDL below 70 Allergies No known active allergiesdocumented as of this encounter (statuses as of 02/24/2022) Medications Medication Sig Dispensed Refills Start Date [...] Active Escitalopram Oxalate 10 MG Oral Tablet (Lexapro)Indicatio ns:RIGOBERTO (generalized anxiety disorder) Take by mouth 1 Tablet in the morning. 30 Tablet 5 02/08/2022 Active rOPINIRole HCl 0.25 MG Oral Tablet (Requip)Indication s:Restless legs syndrome take 1 tablet by mouth at bedtime 90 Tablet 1 02/24/2022 Active Rosuvastatin Calcium 20 MG Oral Tablet (Crestor)Indicatio ns:Dyslipidemia, goal LDL below 70 take 1 tablet by mouth once daily 90 Tablet 1 02/24/2022 Active rOPINIRole HCl 0.25 MG Oral Tablet (Requip)Indication s:Restless legs syndrome take 1 tablet by mouth at bedtime 90 Tab 3 02/08/2021 2 Discontinued Rosuvastatin Calcium 20 MG Oral Tablet (Crestor)Indicatio ns:Dyslipidemia, goal LDL below 70 take 1 tablet by mouth once daily 90 Tablet 2 05/17/2021 2 Discontinued documented as of this encounter (statuses as of 02/24/2022) Active Problems Problem Noted Date Chronic kidney disease, stage 3b 021 Overview: Per CKD protocol 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 09/29/2020 Overview: Per CKD protocol History of deep vein thrombosis (DVT) of lower extremity 09/08/2016 Status post insertion of drug eluting co ronary artery stent 04/07/2015 Overview: 2009, DUS placed in the mid RCA at [facility] Asymptomatic bilateral carotid artery st enosis 06/10/2014 Raynaud phenomenon 06/13/2011 Knee joint replacement status 01/13/2011 Overview: 2014, right Dr Ricardo [facility] 2011: left Dr Priya Ricardo [facility] Dyslipidemia, goal LDL below 70 09/21/19 11 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 neurogenic claudication 02/17/2010 Vitamin D deficiency 10/13/2009 Chronic ischemic heart disease 0 S/P angioplasty with stent 06/30/2009 Overview: 07/01/2009 DUS in the RCA at [facility] Non-toxic multinodular goiter 04/21/2009 Overview: [...] as of this encounter (statuses as of 02/24/2022) Resolved Problems Problem Noted Date Resolved Date [...] as of this encounter (statuses as of 02/24/2022) Immunizations Name Administration Dates Next Due COVID-19 [...] Telephone Encounter - Nhi Florian DO - 02/24/2022 2:18 PM EDT Signed Prescriptions: Disp Refills rOPINIRole HCl 0.25 MG Oral Tablet (Requip)90 Tab*1 Sig: take 1 tablet by mouth at bedtime Authorizing Provider: NHI FLORIAN Rosuvastatin Calcium 20 MG Oral Tablet (Cr*90 Tab*1 Sig: take 1 tablet by mouth once daily Authorizing Provider: NHI FLORIAN Ordering User: MARCO ANTONIO MACE * Telephone Encounter - Marco Antonio Mace [facility] - 02/24/2022 12:30 PM EDT Pending Prescriptions: Disp Refills rOPINIRole HCl 0.25 MG Oral Tablet (Requip)90 Tab*1 Sig: take 1 tablet by mouth at bedtime Signed Prescriptions: Disp Refills Rosuvastatin Calcium 20 MG Oral Tablet (Cr*90 Tab*1 Sig: take 1 tablet by mouth once daily Authorizing Provider: NHI FLORIAN Ordering User: MARCO ANTONIO MACE * Telephone Encounter - Marco Antonio Mace [facility] - 02/24/2022 12:30 PM EDT Pending Prescriptions: Disp Refills rOPINIRole HCl 0.25 MG Oral Tablet (Requip)90 Tab*1 Sig: take 1 tablet by mouth at bedtime Signed Prescriptions: Disp Refills Rosuvastatin Calcium 20 MG Oral Tablet (Cr*90 Tab*1 Sig: take 1 tablet by mouth once daily Authorizing Provider: NHI FLORIAN Ordering User: MARCO ANTONIO MACE 02/08/2022 (in office), Visit date not found (telemedicine) 05/09/2022 If no future appointments scheduled, and last appointment is greater than a year ago, please schedule patient for a follow-up appointment Last date the medication was ordered: 02/08/21 [facility]: [id number] [address] [facility] Is this request for a controlled substance?No Urine Drug Screen:No results found for this or any previous visit. Patient Phone Numbers Labs: Lab Results Component Value Date/Time CREAT 1.6 (H) 10/19/2021 12:35 PM CREAT 1.3 (H) 04/06/2020 10:20 AM POTASSIUM 4.7 10/19/2021 12:35 PM POTASSIUM 4.6 04/06/2020 10:20 AM POTASSIUM 4.0 08/05/1996 07:45 AM TSH 2.53 04/06/2020 10:20 AM TSH 3.60 08/05/1996 07:45 AM LDLCALC 59 04/04/2019 10:11 AM LDLDIRECT 72 04/19/2021 09:18 AM LDLDIRECT 67 04/06/2020 10:20 AM LDLDIRECT 92 06/13/2011 10:52 AM ALT 13 10/19/2021 12:35 PM ALT 14 04/06/2020 10:20 AM documented in this encounter Plan of Treatment Upcoming Encounters Date Type Specialty Care Team Description 04/27/2022 Office Visit Cardiology Yvon Harris PA-C [address] [place] [address] [place] [address] 05/09/2022 Office Visit Family Medicine Nhi Florian DO [address] [place] [address] 01/18/2023 Nurse Only Ancillary Nurse [place]ine [facility] [address] [facility] [place] [address] Health Maintenance Due Date Last Done Comments DXA Scan 10/30/2020 10/30/2013, 10/20, 08/24/2009, Additional history exists COVID-19 Vaccine (4 - Booster for Moderna series) 07/02/2021 05/07/2021, 07/30/2020, 07/02/2020 Influenza Vaccine (FLU shot) (#1) 2022 06/05/2020, 04/08/2020, 03/20/2019, Additional history exists CKD HGB USE SMARTSET 16955 10/19/202210/19, 10/30/2020, 04/06/2020, Additional history exists CKD PHOS USE SMARTSET 34981 10/19/2022 05/3 05/2021, 11/18/2019, 07/15/2019, Additional history [...] as of this encounter Visit Diagnoses Diagnosis Restless legs syndrome Restless legs syndrome (RLS) Dyslipidemia, goal LDL below 70 Other and unspecified hyperlipidemia documented in this encounter Advance Directives Documents on File Type Date Recorded Patient Merchant Tailor Expl anation Advanced Directive service a mike [...] 08/13/2009 12:00 AM LIVING WILL Power of Manager Math 08/13/2009 12:00 AM DOMONIQUE R OF TRANSPORTATION OPERATIONS MANAGER DURABLE HEALTH POA AND HEALTH CARE TREATMENT INSTR Power of Manager Math 08/13/2009 12:00 AM DOMONIQUE R OF TRANSPORTATION OPERATIONS MANAGER DURABLE HEALTH CARE POA Care Teams Job Coach Relationship Specialty Start Date End Date Nhi Florian, DO [address] [place] [address] PCP - General Family Medicine 11/28/16 documented as of this encounter
--- OUTSIDE RECORDS SUMMARY | 2023-01-22 22:50 | External Medical Summary | Summary of Care ---
Author Name Unknown Organization [place] [address] Care Team Providers Care Geophysical Operator Name Role Phone Bj Mario DO Primary Care Provider [phone] [phone] Encounter Details Date Type Department Care Team Description 10/11/2021 Orders Only [facility], [facility] [address] [place] [address] [place] [address] [place] [address] Allergies No known active allergiesdocumented as of [...] once daily 90 Tablet 2 10/07/2021 Active documented as of this encounter (statuses [...] DUS placed in the mid RCA at [facility] Asymptomatic bilateral carotid artery st enosis 06/10/2014 Raynaud phenomenon 06/13/2011 Knee joint replacement status 01/13/2011 Overview: 2014, right Dr Ricardo [facility] 2011: left Dr Priya Ricardo [facility] Dyslipidemia, goal LDL below 70 09/21/19 11 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 neurogenic claudication 02/17/2010 Vitamin D deficiency 10/13/2009 Chronic ischemic heart disease 0 S/P angioplasty with stent 06/30/2009 Overview: 07/01/2009 DUS in the RCA at [facility] Non-toxic multinodular goiter 04/21/2009 Overview: [...] Bj Mario, DO [address] [place] [address] 02/16/2022 Hospital Encounter Surgery Paul Berg, DO [address] [place] [address] 02/16/2022 Surgery Surgery Paul Berg, [address] [place] [address] INJECTION SPINE LUMBAR OR SACRAL 04/27/2022 Office Visit Cardiology Yvon Harris PA-C [address] [place] [address] 05/09/2022 Office Visit Family Medicine Bj Mario DO [address] [place] [address] 01/18/2023 Nurse Only Ancillary [place], Nurse [facility] [address] [place] [address] Scheduled Procedures Name Priority Associated Diagnoses Date/Ti me INJECTION SPINE LUMBAR OR SACRAL Lumbar radiculopathy 02/16/2022 1:00 PM EDT Health Maintenance Due Date Last Done Comments DXA Scan 10/30/2020 10/30/2013, 10/20, 08/24/2009, Additional history exists COVID-19 Vaccine (4 - Booster for Moderna series) 09/05/2021 05/07/2021, 07/30/2020, 07/02/2020 Influenza Vaccine (FLU shot) (#1) 2022 06/05/2020, 04/08/2020, 03/20/2019, Additional history exists CKD HGB USE SMARTSET 57627 10/19/202210/19, 10/30/2020, 04/06/2020, Additional history exists CKD PHOS USE SMARTSET 32923 10/19/2022 05/05/2021, 11/18/2019, 07/15/2019, Additional history exists [...] - GENERAL RAD (IMAGES ONLY,NO REPORT) Routine 10/11/2021 9:30 AM EDT documented in this encounter Results * RADIOLOGY EXAM - GENERAL RAD (IMAGES ONLY,NO REPORT) (10/11/2021 9:30 AM EDT) Specimen Narrative Scheduling, Silent - 02/07/2022 9:26 PM EDT This is an imaging study not interpreted or resulted by a [facility] or [facility] contracted radiologist. documented in this encounter Advance Directives Documents on File Type Date Recorded Patient Biomedical Equipment Specialist Expl anation Advanced Directive service a [...] 08/13/2009 12:00 AM LIVING WILL Power of Detail Drafter 08/13/2009 12:00 AM DOMONIQUE R OF GLASS CLEANER DURABLE HEALTH POA AND HEALTH CARE TREATMENT INSTR Power of Detail Drafter 08/13/2009 12:00 AM DOMONIQUE R OF GLASS CLEANER DURABLE HEALTH CARE POA Care Teams Geophysical Operator Relationship Specialty Start Date End Date Bj Mario, DO [address] [place] [address] PCP - General Family Medicine 11/28/16 documented as of this encounter
--- OUTSIDE RECORDS SUMMARY | 2023-01-22 22:50 | External Medical Summary | Summary of Care ---
Author Name Unknown Organization [facility] [address] Care Team Providers Care Cad Engineer Name Role Phone Bj Mario Primary Care Provider [phone] Reason for Visit * Auth/Cert Specialty Diagnoses / Procedures Referred By Love gamboa Referred To Contact Diagnoses Lumbar radiculopathy Lumbar radiculopathy [M54.16] Procedures INJECT DX/THER SUBSTANCE INTERLAMINAR LUMBAR/SACRAL W IMAGE GUIDE INJECTION SPINE LUMBAR OR SACRAL Referral ID Status Reason Start Date Expiration Date Visits Re quested Visits Authorized [id number] Encounter Details Date Type Department Care Team Description 02/16/2022 Hospital Encounter OR [facility], Operating Room [facility] [address] [place] [id number] CouPaul gillespie DO [address] [place] [address] Allergies No known active allergiesdocumented as of this encounter (statuses as of 02/17/2022) Medications Medication Sig Dispensed Refills Start Date [...] Escitalopram Oxalate 10 MG Oral Tablet (Lexapro)Indications: RIGOBRETO (generalized anxiety disorder) Take by mouth 1 Tablet in the morning. 30 Tablet 5 02/08/2022 Active documented as of this encounter (statuses as of 02/17/2022) Active Problems Problem Noted Date Chronic kidney [...] as of this encounter (statuses as of 02/17/2022) Resolved Problems Problem Noted Date Resolved Date [...] as of this encounter (statuses as of 02/17/2022) Immunizations Name Administration Dates Next Due COVID-19 [...] Sign Reading Time Taken Comments Blood Pressure 137/74 02/16/2022 12:53 PM EDT Pulse 55 02/16/2022 12:53 PM EDT Temperature 36.2 C (97.1 F) 02/16/2022 12:53 PM E DT Respiratory Rate 16 02/16/2022 12:53 PM EDT Oxygen Saturation 99% 02/16/2022 12:53 PM EDT Inhaled Oxygen Concentration - - Weight - - Height - - Body Mass Index - - documented in this encounter Discharge Instructions * Discharge Instr - AVS* Paul Berg DO - 02/16/2022 12:49 PM EDT [facility] [address] [place] [address] Discharge Date: 02/16/2022 You may call [facility] at [phone] during business hours. For after-hours emergencies call 911. Your attending physician at the time of your discharge was: Paul BergDO [address] [facility] [address] The information below provides you with the [...] unless otherwise instructed by your family physician, reimbursement liaison or the anticoagulation clinic. Additional Instructions: Driving: . Date you may return to work or school: Follow Up: Call [phone] in 4 weeks. documented in this encounter Progress Notes * Paul Berg DO - 02/16/2022 12:49 PM EDT [facility] [address] [address] OUTPATIENT SURGERY DISCHARGE SUMMARY NOTE Name: Eugenia Hu Location: OR [facility] Date: 02/16/2022 Time: 12:49 PM Surgery Date: 02/16/2022 Procedure: Procedure(s): INJECTION SPINE LUMBAR OR SACRAL No laterality found for procedure #1 Surgeon: Surgeon(s): Paul Berg DO Discharge Diagnosis: Lumbar spinal stenosis After examination of this patient, I have determined she is ready for discharge to home when the patient meets criteria. Discharge instructions were given to the patient. documented in this encounter H&P Notes * Paul Begr DO - 02/16/2022 6:57 AM EDT Interventional Pain Pre-Procedure Assessment Name:Eugenia Hu Date:02/16/2022 Time:6:57 AM Procedure(s): Caudal epidural steroid injection Diagnosis: [...] Admission medications Medication Sig Last Dose Discont. Escitalopram Oxalate 10 MG Oral Tablet (Lexapro) Take by mouth 1 Tablet in the morning. traMADol HCl 50 MG Oral Tablet (Ultram) Take by mouth 1 Tablet daily as needed for Pain, Severe. Famotidine 10 MG Oral Tablet (Pepcid) Take by mouth 1 Tablet in the morning. Furosemide 20 MG Oral Tablet (Lasix) take 1 tablet by mouth once daily Lisinopril 10 MG Oral Tablet (Prinivil) take 1 tablet by mouth once daily Rosuvastatin Calcium 20 MG Oral Tablet (Crestor) take 1 tablet by mouth once daily Metoprolol Succinate ER 25 MG Oral Tablet Extended Release 24 Hour (toPROL XL) Take 0.5 Tablets by mouth daily. Isosorbide Mononitrate ER 30 MG Oral Tablet Extended Release 24 Hour (Imdur) Take 1 Tab by mouth daily. rOPINIRole HCl 0.25 MG Oral Tablet (Requip) take 1 tablet by mouth at bedtime Timolol Maleate 0.5 % Ophthalmic Solution (Timoptic) instill 1 drop into both eyes every morning Meclizine HCl 12.5 MG Oral Tablet (ANTIVERT) Take 1 Tab by mouth 3 times a day as needed for Dizziness. travoprost, MAYA Free, (TRAVATAN Z) 0.004 % ophthalmic solution instill 1 drop into both eyes every evening Diclofenac Sodium (VOLTAREN) 1 % gel Place 4 g topically on the skin 4 times a day. To affected area as directed. cyclobenzaprine (FLEXERIL) 5 MG Tablet Take 1 Tab by mouth 2 times a day as needed for Muscle spasms. acetaminophen (TYLENOL EXTRA STRENGTH) 500 MG Tablet Take 500 mg by mouth every 6 hours as needed for Pain. nitroglycerin (NITROSTAT) 0.4 MG SUBL 1 every 5 min as needed with chest pain up to 3 doses in 15 minutes VITAMIN D 1000 UNIT PO CAPS 1 capsule daily ASPIRIN 81 MG PO CHEW One pill by mouth once a day with food Review of patient's allergies indicates: No Known Allergies There were no vitals taken for this [...] to use local anesthesia. Paul Berg DO 02/16/2022 documented in this encounter Nursing Notes * Yane Hui RN - 02/16/2022 12:55 PM EDT Patient tolerated pain procedure well. Visited by Dr Berg. Ready for discharge. * Ilene Powers RN - 02/16/2022 12:47 PM EDT Patient tolerating pain management injection well. documented in this encounter OR Notes * OR Surgeon - Paul Berg DO - 02/16/2022 12:49 PM EDT OPERATIVE RECORD OR [facility], Operating Room [address] [address] Eugenia Hu : 1935 DOS: 02/16/2022 SERVICE: INTERVENTIONAL PAIN MANAGEMENT PRE-OP DIAGNOSIS: Lumbar [...] 0.5 cubic centimeter was easily injected, showed appr opriate epidural spread in P-A and lateral fluoroscopic views. There was no evidence of intravascular or subarachnoid spread of contrast. Kenalog 40 mg with 5 cubic centimeters of preservative-free normal saline was slowly and easily injected without pain. There was appropriate washout of contrast.The needle was removed. Patient tolerated procedure well. Eugenia Hu will be re- evaluated by phone in approximately 4 weeks, and was given appropriate discharge instructions following postprocedure monitoring. Paul Berg DO 02/16/2022 12:49 PM documented in this encounter Plan of Treatment Upcoming Encounters Date Type Specialty Care Team Description 04/27/2022 Office Visit Cardiology Yvon Harris PA-C [address] [facility] [place] [address] 05/09/2022 Office Visit Family Medicine Bj Mario DO [address] [facility] [place] [address] 01/18/2023 Nurse Only Ancillary Nurse Pauline [facility] [address] Health Maintenance Due Date Last Done Comments DXA Scan 10/30/2020 10/30/2013, 10/20, 08/24/2009, Additional history exists COVID-19 Vaccine (4 - Booster for Moderna series) 07/02/2021 05/07/2021, 07/30/2020, 07/02/2020 Influenza Vaccine (FLU shot) (#1) 2022 06/05/2020, 04/08/2020, 03/20/2019, Additional history exists CKD HGB USE SMARTSET 71516 10/19/202210/19, 10/30/2020, 04/06/2020, Additional history exists CKD PHOS USE SMARTSET 49625 10/19/202209/21, 11/18/2019, 07/15/2019, Additional history exists Alb [...] Procedure Name Priority Date/Time Associated Diagnosis Comments XR INTRA-OP C-ARM CASE Routine 02/16/2022 12:52 PM EDT documented in this encounter Results * XR INTRA-OP C-ARM CASE (02/16/2022 12:52 PM EDT) Specimen Narrative Scheduling, Silent - 02/16/2022 12:53 PM EDT This procedure will not be read by a Radiologist. Please see operative note. documented in this encounter Administered Medications Inactive Administered Medications - up to 3 most recent administrations Medication Order MAR Action Action Date Dose Rate Site Iohexol (Omnipaque 180) inj 1 mL 1 mL, Injection, ONCE, On Mon02/16/22 at 1300, For 1 dose Given 02/16/2022 12:46 PM EDT 0.5 mL lidocaine 1 % inj 20 mg 20 mg (2 mL), Subcutaneous, ONCE, On Mon02/16/22 at 1300, For 1 dose Given 02/16/2022 12:45 PM EDT 20 mg Other-Specify Triamcinolone Acetonide (Kenalog) 40 MG/ML inj 40 mg 40 mg, Injection, ONCE, On Mon02/16/22 at 1300, For 1 dose Given 02/16/2022 12:47 PM EDT 40 mg documented in this encounter Active and Recently Administered Medications Times are shown in EDT. Scheduled Medication Order 02/14/2022 02/15/2022 02/16/2022 Iohexol (Omnipaque 180) inj 1 mL (COMPLETED) 1 mL, Injection, ONCE, On Mon02/16/22 at 1300, For 1 dose 1246 (Given - Provid er: Ilene Powers RN - Comment: CAUDAL) lidocaine 1 % inj 20 mg (COMPLETED) 20 mg (2 mL), Subcutaneous, ONCE, On Mon02/16/22 at 1300, For 1 dose 1245 (Given - Provid er: Ilene Powers RN - Comment: CAUDAL) Triamcinolone Acetonide (Kenalog) 40 MG/ML inj 40 mg (COMPLETED) 40 mg, Injection, ONCE, On Mon02/16/22 at 1300, For 1 dose 1247 (Given - Provid er: Ilene Powers RN - Comment: CAUDAL) documented in this encounter Advance Directives Documents on File Type Date Recorded 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
--- OUTSIDE RECORDS SUMMARY | 2023-01-22 22:50 | External Medical Summary | Summary of Care ---
Author Name Unknown Organization [place] [address] Care Team Providers Care Advertising Sales Associate Name Role Phone Bj Mario DO Primary Care Provider [phone] Encounter Details Date Type Department Care Team Description 09/30/2021 Orders Only Interventional Pain Center, [facility] [address] [place] [address] CousinsPaul [address] [place] [address] Allergies No known active allergiesdocumented as of this encounter (statuses as of 02/07/2022) Medications Medication Sig Dispensed Refills Start Date End Date Status ASPIRIN 81 MG PO CHEW One pill by mouth once a day with food 100 5 08/06/2008 Active VITAMIN D 1000 UNIT PO CAPSIndications:Carmel min D deficiency 1 capsule daily 30 Cap 11 10/13/2009 Active nitroglycerin (NITROSTAT) 0.4 MG SUBLIndications:Surface Mount Technology Operator jose alberto ischemic heart disease 1 every [...] placed in the mid RCA at [facility] Asymptomatic bilateral carotid artery st enosis 06/10/2014 Raynaud phenomenon 06/13/2011 Knee joint replacement status 01/13/2011 Overview: 2014, right Dr Ricardo [facility] 2011: left Dr Priya Ricardo [facility] Dyslipidemia, goal LDL below 70 09/21/19 11 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 neurogenic claudication 02/17/2010 Vitamin D deficiency 10/13/2009 Chronic ischemic heart disease 0 S/P angioplasty with stent 06/30/2009 Overview: 07/01/2009 DUS in the RCA at [facility] Non-toxic multinodular goiter 04/21/2009 Overview: seen on [...] Bj Mario, DO [address] [place] [address] 02/16/2022 Hospital Encounter Surgery Paul Berg, [address] [place] [address] 02/16/2022 Surgery Surgery Paul Berg DO [address] [place] [address] INJECTION SPINE LUMBAR OR SACRAL 04/27/2022 Office Visit Cardiology Yvon Harris PA-C [address] [place] [address] 05/09/2022 Office Visit Family Medicine Bj Mario, DO [address] [place] [address] 01/18/2023 Nurse Only Ancillary Pauline, Nurse [facility] [address] [place] [address] Scheduled Procedures Name Priority Associated Diagnoses Date/Ti me INJECTION SPINE LUMBAR OR SACRAL Lumbar radiculopathy 02/16/2022 1:00 PM EDT Health Maintenance Due Date Last Done Comments DXA Scan 10/30/2020 10/30/2013, 10/20, 08/24/2009, Additional history exists COVID-19 Vaccine (4 - Booster for Moderna series) 09/05/2021 05/07/2021, 07/30/2020, 07/02/2020 Influenza Vaccine (FLU shot) (#1) 2022 06/05/2020, 04/08/2020, 03/20/2019, Additional history exists CKD HGB USE SMARTSET 23932 10/19/202210/19, 10/30/2020, 04/06/2020, Additional history exists CKD PHOS USE SMARTSET 74662 10/19/202209/21, 11/18/2019, 07/15/2019, Additional history exists Alb [...] Date/Time Associated Diagnosis Comments RADIOLOGY EXAM - MRI (IMAGES ONLY, NO REPORT) Routine 09/30/2021 12:25 PM EDT documented in this encounter Results * RADIOLOGY EXAM - MRI (IMAGES ONLY, NO REPORT) (09/30/2021 12:25 PM EDT) Specimen Narrative Scheduling, Silent - 02/07/2022 9:23 PM EDT This is an imaging study not interpreted or resulted by a [facility] or [facility] contracted radiologist. documented in this encounter Advance Directives Documents on File Type Date Recorded Patient Underwriting Manager Expl anation Advanced Directive service a mike [...] 08/13/2009 12:00 AM LIVING WILL Power of Air Twist Operator 08/13/2009 12:00 AM DOMONIQUE R OF PET WALKER DURABLE HEALTH POA AND HEALTH CARE TREATMENT INSTR Power of Air Twist Operator 08/13/2009 12:00 AM DOMONIQUE R OF PET WALKER DURABLE HEALTH CARE POA Care Teams Advertising Sales Associate Relationship Specialty Start Date End Date Bj Mario, DO [address] [place] [address] PCP - General Family Medicine 11/28/16 documented as of this encounter
--- OUTSIDE RECORDS SUMMARY | 2023-01-22 22:50 | External Medical Summary | Summary of Care ---
Author Name Unknown Organization [place] [address] Care Team Providers Care Road Roller Operator Name Role Phone Bj Mario DO Primary Care Provider [phone] Encounter Details Date Type Department Care Team Description 10/11/2021 Hospital Encounter Radiology Film File [address] [place] [address] Allergies No known active allergiesdocumented as of this encounter (statuses as of 02/08/2022) Medications Medication Sig Dispensed Refills Start Date [...] as of this encounter (statuses as of 02/08/2022) Active Problems Problem Noted Date Chronic kidney [...] as of this encounter (statuses as of 02/08/2022) Resolved Problems Problem Noted Date Resolved Date [...] as of this encounter (statuses as of 02/08/2022) Immunizations Name Administration Dates Next Due COVID-19 [...] Encounters Date Type Specialty Care Team Description 02/16/2022 Hospital Encounter Surgery Paul Berg DO [address] [place] [address] 02/16/2022 Surgery Surgery Paul Berg DO [address] [place] [address] INJECTION SPINE LUMBAR OR SACRAL 04/27/2022 Office Visit Cardiology Yvon Harris PA-C [address] [place] [address] 05/09/2022 Office Visit Family Medicine Bj Mario DO [address] [facility] [address] 01/18/2023 Nurse Only Ancillary Pauline, Nurse [facility] [address] [place] [facility] [address] Scheduled Procedures Name Priority Associated Diagnoses Date/Ti me INJECTION SPINE LUMBAR OR SACRAL Lumbar radiculopathy 02/16/2022 1:00 PM EDT Health Maintenance Due Date Last Done Comments DXA Scan 10/30/2020 10/30/2013, 10/20, 08/24/2009, Additional history exists COVID-19 Vaccine (4 - Booster for Moderna series) 09/05/2021 05/07/2021, 07/30/2020, 07/02/2020 Influenza Vaccine (FLU shot) (#1) 2022 06/05/2020, 04/08/2020, 03/20/2019, Additional history exists CKD HGB USE SMARTSET 77368 10/19/202210/19, 10/30/2020, 04/06/2020, Additional history exists CKD PHOS USE SMARTSET 19703 10/19/202209/21, 11/18/2019, 07/15/2019, Additional history exists Alb [...] interpreted or resulted by a [facility] or [facility] contracted radiologist. 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 Vice President [employer] (Ex ) 08/13/2009 12:00 AM DOMONIQUE R OF AFTER SCHOOL COORDINATOR DURABLE HEALTH POA AND HEALTH CARE TREATMENT INSTR Power of Consultant [employer]. Vice President [employer] (Ex ) 08/13/2009 12:00 AM DOMONIQUE R OF AFTER SCHOOL COORDINATOR DURABLE HEALTH CARE POA Care Teams Road Roller Operator Relationship Specialty Start Date End Date Bj Mario, DO [address] [place] [address] PCP - General Family Medicine 11/28/16 documented as of this encounter
--- OUTSIDE RECORDS SUMMARY | 2023-01-22 22:50 | External Medical Summary | Summary of Care ---
Author Name Unknown Organization [place] [address] Care Team Providers Care Slip Dumper Name Role Phone Bj Mario DO Primary Care Provider [phone] Reason for Referral * Ancillary Services (Within 10 days (routine)) - Pending Review Specialty Diagnoses / Procedures Referred By Love gamboa Referred To Contact Audiology Diagnoses Sensorineural hearing loss (SNHL) of both ears Bj Mario DO [address] [place] [address] Referral ID Status Reason Start Date Expiration Date Visits Requested Visits Authorized [id number] Pending Review Ancillary Services Required 02/08/[phone] Question Answer Referral Priority Within 10 days (routine) Reason for Referral: Hearing Loss Is this sudden hearing loss? No Reason for Visit * Reason Comments Ear Problem Encounter Details Date Type Department Care Team Description 02/08/2022 Office Visit [facility] [place] [address] [place], [place] [address] Bj Mario DO [address] [facility] [place] [address] RIGOBERTO (generalized anxiety disorder)*; Sensorineural hearing loss (SNHL) of both ears Allergies No known active allergiesdocumented as of [...] DUS placed in the mid RCA at [facility] Asymptomatic bilateral carotid artery st enosis 06/10/2014 Raynaud phenomenon 06/13/2011 Knee joint replacement status 01/13/2011 Overview: 2014, right Dr Ricardo [facility] 2011: left Dr Priya Ricardo [facility] Dyslipidemia, goal LDL below 70 09/21/19 11 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 neurogenic claudication 02/17/2010 Vitamin D deficiency 10/13/2009 Chronic ischemic heart disease 0 S/P angioplasty with stent 06/30/2009 Overview: 07/01/2009 DUS in the RCA at [facility] Non-toxic multinodular goiter 04/21/2009 Overview: seen on [...] Sign Reading Time Taken Comments Blood Pressure 118/64 02/08/2022 9:54 AM EDT Pulse 69 02/08/2022 9:54 AM EDT Temperature 36.3 C (97.3 F) 02/08/2022 9:54 AM ED T Respiratory Rate 12 02/08/2022 9:54 AM EDT Oxygen Saturation 97% 02/08/2022 9:54 AM EDT Inhaled Oxygen Concentration - - Weight 84.4 kg (186 lb) 02/08/2022 9:54 AM EDT Height 159 cm (5' 2.6") 02/08/2022 9:54 AM EDT Body Mass Index 33.37 02/08/2022 9:54 AM EDT documented in this encounter Progress Notes * Bj Mario, DO - 02/08/2022 10:10 AM EDT Subjective: Eugenia Hu is a 87 year old female. Chief Complaint Patient presents with Ear Problem HPI: Pt here for acute. Ears do not hurt. She picks her ears a lot. Daughter yells at her not to. Some itch with it. HEaring is terrible. That was her main goal. No pus or blood from her ears. Her eyes have been good with Dr. Simon. She says her nose are good. Sometimes tingling around shoulder. Itching a lot. Digging at her scalp. Admits some anxiety. PMHx, meds, and allergies reviewed Patient Active [...] Chronic kidney disease, stage 3b (HCC) N18.32 Current Outpatient Medications Medication Sig Dispense Refill ASPIRIN 81 MG PO CHEW One pill by mouth once a day with food 100 5 VITAMIN D 1000 UNIT PO CAPS 1 capsule daily 30 Cap 11 nitroglycerin (NITROSTAT) 0.4 MG SUBL 1 every 5 min as needed with chest pain up to 3 doses in 15 minutes 25 Tab 11 acetaminophen (TYLENOL EXTRA STRENGTH) 500 MG Tablet [...] by mouth at bedtime 90 Tab 3 Isosorbide Mononitrate ER 30 MG Oral Tablet Extended Release 24 Hour (Imdur) Take 1 Tab by mouth daily. 100 Tab 3 Metoprolol Succinate ER 25 MG Oral Tablet Extended Release 24 Hour (toPROL XL) Take 0.5 Tabletsby mouth daily. 45 Tablet 3 Rosuvastatin Calcium 20 MG Oral Tablet (Crestor) take 1 tablet by mouth once daily 90 Tablet 2 Lisinopril 10 MG Oral Tablet (Prinivil) take 1 tablet by mouth once daily 90 Tablet 2 Furosemide 20 MG Oral Tablet (Lasix) take 1 tablet by mouth once daily 90 Tablet 1 Famotidine 10 MG Oral Tablet (Pepcid) Take by mouth 1 Tablet in the morning. 90 Tablet 1 traMADol HCl 50 MG Oral Tablet (Ultram) Take by mouth 1 Tablet daily as needed for Pain, Severe. 30 Tablet 0 No current facility-administered medications for this visit. Review of patient's allergies indicates: No Known Allergies OBJECTIVE: BP 118/64 (BP Site: Left Arm, BP Position: Sitting, BP Cuff Size: Regular) | Pulse 69 | Temp 36.3 C (97.3 F) (Tympanic) | Resp 12 | Ht 1.59 m (5' 2.6") | Wt 84.4 kg (186 lb) | SpO2 97% | BMI 33.37 kg/m | BSA 1.93 m Estimated body mass index is 33.37 kg/m as calculated from the following: Height as of this encounter: 1.59 m (5' 2.6"). Weight as of this encounter: 84.4 kg (186 lb). BP Readings from Last 3 Encounters: 02/08/22 118/64 01/17/22 118/64 11/01/21 108/62 Wt Readings from Last 3 Encounters: 02/08/22 84.4 kg (186 lb) 01/17/22 84.6 kg (186 lb 6.4 oz) 11/01/21 87.3 kg (192 lb 8 oz) ROS: Negative except for above PHYSICAL EXAM: General: alert, healthy and no distress Head: Normocephalic, No masses, lesions, tenderness or abnormalities Ears: External ears normal, TM's Normal, R TM not visualized secondary to cerumen, L TM not visualized secondary to cerumen ASSESSMENT/Plan RIGOBERTO (generalized anxiety disorder) (Primary) - Escitalopram Oxalate 10 MG Oral Tablet (Lexapro); Take by mouth 1 Tablet in the morning. Sensorineural hearing loss (SNHL) of both ears - AUDIOLOGY REFERRAL OP I spent a total of 30 minutes on the date of service in preparation, delivery, and documentation ofthe care provided to this patient, excluding any time spent on the performance of any procedure or separately billable services. Even with getting her ears cleared I still feel she will need hearing support The above was discussed and understanding was expressed. Bj aMrio DO documented in this encounter Nursing Notes * QUIQUE Xiao ASSIST - 02/08/2022 9:53 AM EDT Eugenia Hu presents with complaints of: Ear problem- Hearing loss- bilateral Ringing- bilateral Pressure- bilateral Itching-bilateral Would like a referral for hearing aids. Onset of symptoms: 1 month(s) ago. documented in this encounter Plan of Treatment Upcoming Encounters Date Type Specialty Care Team Description 02/16/2022 Hospital Encounter Surgery Paul Berg, DO [address] [place] [address] 02/16/2022 Surgery Surgery Paul Berg DO [address] [place] [address] INJECTION SPINE LUMBAR OR SACRAL 04/27/2022 Office Visit Cardiology Yvon Harris PA-C [address] [place] [address] 05/09/2022 Office Visit Family Medicine Bj Mario DO [address] [place] [address] 01/18/2023 Nurse Only Ancillary Pauline, Nurse [facility] [address] [place], [place] [address] Scheduled Procedures Name Priority Associated Diagnoses Date/Ti me INJECTION SPINE LUMBAR OR SACRAL Lumbar radiculopathy 02/16/2022 1:00 PM EDT Scheduled Referrals Name Type Priority Associated Diagnoses Orde r Schedule AUDIOLOGY REFERRAL OP Referral Within 10 days (routine) Sensorineural hearing loss (SNHL) of both ears Ordered: 02/08/2022 Health Maintenance Due Date Last Done Comments DXA Scan 10/30/2020 10/30/2013, 10/20, 08/24/2009, Additional history exists COVID-19 Vaccine (4 - Booster for Moderna series) 09/05/2021 05/07/2021, 07/30/2020, 07/02/2020 Influenza Vaccine (FLU shot) (#1) 2022 06/05/2020, 04/08/2020, 03/20/2019, Additional history exists CKD HGB USE SMARTSET 54344 10/19/202210/19, 10/30/2020, 04/06/2020, Additional history exists CKD PHOS USE SMARTSET 02489 10/19/2022 05/05/2021, 11/18/2019, 07/15/2019, Additional history exists [...] as of this encounter Visit Diagnoses Diagnosis RIGOBERTO (generalized anxiety disorder)- Primary Generalized anxiety disorder Sensorineural hearing loss (SNHL) of both ears Lumbar radiculopathy Thoracic or lumbosacral neuritis or radiculitis, unspecified documented in this encounter Advance Directives Documents on File Type Date Recorded Patient Pension Agent Expl anation Advanced Directive service a mike [...] 08/13/2009 12:00 AM LIVING WILL Power of Shag Truck Driver 08/13/2009 12:00 AM DOMONIQUE Madsen OF REFINERY OPERATOR HELPER CRUDE UNIT DURABLE HEALTH POA AND HEALTH CARE TREATMENT INSTR Power of Shag Truck Driver 08/13/2009 12:00 AM DOMONIQUE Madsen OF REFINERY OPERATOR HELPER CRUDE UNIT DURABLE HEALTH CARE POA Care Teams Slip Dumper Relationship Specialty Start Date End Date Bj Mario, DO [address] [place] [address] PCP - General Family Medicine 11/28/16 documented as of this encounter
--- OUTSIDE RECORDS SUMMARY | 2023-01-22 22:50 | External Medical Summary | Summary of Care ---
Author Name Unknown Organization [place] [address] Care Team Providers Care Machine Package Sealer Name Role Phone Bj Mario DO Primary Care Provider [phone] Encounter Details Date Type Department Care Team Description 09/22/2021 Hospital Encounter Radiology Film File [address] [place] [address] Allergies No known active allergiesdocumented [...] 11 10/13/2009 Active nitroglycerin (NITROSTAT) 0.4 MG SUBLIndications:Career And Guidance Counselor jose alberto ischemic heart disease 1 every [...] DUS placed in the mid RCA at [facility] Asymptomatic bilateral carotid artery st enosis 06/10/2014 Raynaud phenomenon 06/13/2011 Knee joint replacement status 01/13/2011 Overview: 2014, right Dr Ricardo [facility] 2011: left Dr Priya Ricardo [facility] Dyslipidemia, goal LDL below 70 09/21/19 11 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 neurogenic claudication 02/17/2010 Vitamin D deficiency 10/13/2009 Chronic ischemic heart disease 0 S/P angioplasty with stent 06/30/2009 Overview: 07/01/2009 DUS in the RCA at [facility] Non-toxic multinodular goiter 04/21/2009 [...] Description 02/16/2022 Hospital Encounter Surgery Paul Berg, [address] [place] [address] 02/16/2022 Surgery Surgery Paul Berg DO [address] [place] [address] INJECTION SPINE LUMBAR OR SACRAL 04/27/2022 Office Visit Cardiology Yvon Harris PA-C [address] [place] [address] 05/09/2022 Office Visit Family Medicine Bj Mario, DO [address] [place] [address] 01/18/2023 Nurse Only Ancillary Pauline, Nurse [facility] [address] [place] [address] Scheduled Procedures Name Priority Associated Diagnoses Date/Ti me INJECTION SPINE LUMBAR OR SACRAL Lumbar radiculopathy 02/16/2022 1:00 PM EDT Health Maintenance Due Date Last Done Comments DXA Scan 10/30/2020 10/30/2013, 10/20, 08/24/2009, Additional history exists COVID-19 Vaccine (4 - Booster for Moderna series) 09/05/2021 05/07/2021, 07/30/2020, 07/02/2020 Influenza Vaccine (FLU shot) (#1) 2022 06/05/2020, 04/08/2020, 03/20/2019, Additional history exists CKD HGB USE SMARTSET 41561 10/19/202210/19, 10/30/2020, 04/06/2020, Additional history exists CKD PHOS USE SMARTSET 92005 10/19/202209/21, 11/18/2019, 07/15/2019, Additional history exists Alb [...] interpreted or resulted by a [facility] or [employer] contracted radiologist. documented in this encounter Advance Directives Documents on File Type Date Recorded Patient Double Ending Machine Operator Expl anation Advanced Directive service a mike [...] 08/13/2009 12:00 AM LIVING WILL Power of Human Resources Representative 08/13/2009 12:00 AM DOMONIQUE R OF GRANITE FABRICATOR DURABLE HEALTH POA AND HEALTH CARE TREATMENT INSTR Power of Human Resources Representative 08/13/2009 12:00 AM DOMONIQUE R OF GRANITE FABRICATOR DURABLE HEALTH CARE POA Care Teams Machine Package Sealer Relationship Specialty Start Date End Date Bj Mario, DO [address] [place] [address] PCP - General Family Medicine 11/28/16 documented as of this encounter
--- OUTSIDE RECORDS SUMMARY | 2023-01-22 22:50 | External Medical Summary | Summary of Care ---
Author Name Unknown Organization [place] [address] Care Team Providers Care Client Technologies Analyst Name Role Phone Bj Mario Primary Care Provider [phone] Encounter Details Date Type Department Care Team Description 02/17/2022 Result Scan Unspecified Department <No scans attached> Allergies No known active allergiesdocumented as of this encounter (statuses as of 02/21/2022) Medications Medication Sig Dispensed Refills Start Date [...] as of this encounter (statuses as of 02/21/2022) Active Problems Problem Noted Date Chronic kidney disease, stage 3b 021 Overview: Per CKD protocol 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 09/29/2020 Overview: Per CKD protocol History of deep vein thrombosis (DVT) of lower extremity 09/08/2016 Status post insertion of drug eluting co ronary artery stent 04/07/2015 Overview: 2009, DUS placed in the mid RCA at [facility] Asymptomatic bilateral carotid artery st enosis 06/10/2014 Raynaud phenomenon 06/13/2011 Knee joint replacement status 01/13/2011 Overview: 2014, right Dr Ricardo [facility] 2011: left Dr Priya Ricardo [facility] Dyslipidemia, goal LDL below 70 09/21/19 11 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 neurogenic claudication 02/17/2010 Vitamin D deficiency 10/13/2009 Chronic ischemic heart disease 0 S/P angioplasty with stent 06/30/2009 Overview: 07/01/2009 DUS in the RCA at [facility] Non-toxic multinodular goiter 04/21/2009 Overview: seen on [...] as of this encounter (statuses as of 02/21/2022) Resolved Problems Problem Noted Date Resolved Date [...] as of this encounter (statuses as of 02/21/2022) Immunizations Name Administration Dates Next Due COVID-19 [...] Description 04/27/2022 Office Visit Cardiology Yvon Harris PATylerC [address] [facility] [place] [address] 05/09/2022 Office Visit Family Medicine Bj Mario, [address] [place] [address] 01/18/2023 Nurse Only Ancillary Pauline, Nurse [facility] [address] [place] [address] Health Maintenance Due Date Last Done Comments DXA Scan 10/30/2020 10/30/2013, 10/20, 08/24/2009, Additional history exists COVID-19 Vaccine (4 - Booster for Moderna series) 07/02/2021 05/07/2021, 07/30/2020, 07/02/2020 Influenza Vaccine (FLU shot) (#1) 2022 06/05/2020, 04/08/2020, 03/20/2019, Additional history exists CKD HGB USE SMARTSET 54355 10/19/202210/19, 10/30/2020, 04/06/2020, Additional history exists CKD PHOS USE SMARTSET 40415 10/19/2022 05/05/2021, 11/18/2019, 07/15/2019, Additional history exists [...] Procedure Name Priority Date/Time Associated Diagnosis Comments PROCEDURE SCANNED RESULT 02/17/2022 documented in this encounter Results * PROCEDURE SCANNED RESULT (02/17/2022) Specimen Narrative documented in this encounter Advance Directives Documents on File Type Date Recorded Patient Financial Reporting Advisor Expl anation Advanced Directive service a mike [...] 08/13/2009 12:00 AM LIVING WILL Power of Entertainment Musician 08/13/2009 12:00 AM DOMONIQUE R OF PHOTOGRAPHY PROFESSOR DURABLE HEALTH POA AND HEALTH CARE TREATMENT INSTR Power of Entertainment Musician 08/13/2009 12:00 AM DOMONIQUE R OF PHOTOGRAPHY PROFESSOR DURABLE HEALTH CARE POA Care Teams Client Technologies Analyst Relationship Specialty Start Date End Date Bj Mario, DO [address] [place] [address] PCP - General Family Medicine 11/28/16 documented as of this encounter
--- OUTSIDE RECORDS SUMMARY | 2023-01-22 22:50 | External Medical Summary | Summary of Care ---
Author Name Unknown Organization [place] [address] Care Team Providers Care Diesel Power Shovel Operator Name Role Phone Bj Mario DO Primary Care Provider [phone] Reason for Visit * Auth/Cert Specialty Diagnoses / Procedures Referred By Love gamboa Referred To Contact Diagnoses Lumbar radiculopathy Lumbar radiculopathy [M54.16] Procedures INJECT DX/THER SUBSTANCE INTERLAMINAR LUMBAR/SACRAL W IMAGE GUIDE INJECTION SPINE LUMBAR OR SACRAL Referral ID Status Reason Start Date Expiration Date Visits Re quested Visits Authorized [id number] [phone] Encounter Details Date Type Department Care Team Description 02/16/2022 Hospital Encounter [facility] [place] [address] [place] [address] Allergies No known active allergiesdocumented as of [...] Office Visit Cardiology Yvon Harris PA-C [address] [facility] [place] [address] 05/09/2022 Office Visit Family Medicine Bj Mario DO [address] [place] [address] 01/18/2023 Nurse Only Ancillary [place], Nurse Annual [facility] [address] [place] [address] Health Maintenance Due Date Last Done Comments DXA Scan 10/30/2020 10/30/2013, 10/20, 08/24/2009, Additional history exists COVID-19 Vaccine (4 - Booster for Moderna series) 07/02/2021 05/07/2021, 07/30/2020, 07/02/2020 Influenza Vaccine (FLU shot) (#1) 2022 06/05/2020, 04/08/2020, 03/20/2019, Additional history exists CKD HGB USE SMARTSET 47980 10/19/202210/19, 10/30/2020, 04/06/2020, Additional history exists CKD PHOS USE SMARTSET 82577 10/19/2022 05/05/2021, 11/18/2019, 07/15/2019, Additional history exists [...] see operative note. documented in this encounter Advance Directives Documents on File Type Date Recorded Patient Central Supply Assistant Expl anation Advanced Directive service a mike [...] 08/13/2009 12:00 AM LIVING WILL Power of Christmas Tree Grower 08/13/2009 12:00 AM DOMONIQUE R OF ROLLER GOLD LEAF DURABLE HEALTH POA AND HEALTH CARE TREATMENT INSTR Power of Christmas Tree Grower 08/13/2009 12:00 AM DOMONIQUE R OF ROLLER GOLD LEAF DURABLE HEALTH CARE POA Care Teams Diesel Power Shovel Operator Relationship Specialty Start Date End Date Bj Mario, DO [address] [place] [address] PCP - General Family Medicine 11/28/16 documented as of this encounter
--- OUTSIDE RECORDS SUMMARY | 2023-01-22 22:50 | External Medical Summary | Summary of Care ---
Author Name Unknown Organization [place] [address] Care Team Providers Care Twisting Press Operator Name Role Phone Bj Mario DO Primary Care Provider [phone] Encounter Details Date Type Department Care Team Description 09/30/2021 Hospital Encounter Radiology Film File [address] [place] [address] Allergies No known active allergiesdocumented [...] 11 10/13/2009 Active nitroglycerin (NITROSTAT) 0.4 MG SUBLIndications:Pc Installation Engineer jose alberto ischemic heart disease 1 every [...] Paul Berg, [address] [place] [address] 02/16/2022 Surgery Surgery Paul Berg DO [address] [place] [address] INJECTION SPINE LUMBAR OR SACRAL 04/27/2022 Office Visit Cardiology Yvon Harris PA-C [address] [place] [address] 05/09/2022 Office Visit Family Medicine Bj Mario, DO [address] [place] [address] 01/18/2023 Nurse Only Ancillary Pauline, Nurse Annual [facility] [address] [place] [address] Scheduled Procedures Name Priority Associated Diagnoses Date/Ti me INJECTION SPINE LUMBAR OR SACRAL Lumbar radiculopathy 02/16/2022 1:00 PM EDT Health Maintenance Due Date Last Done Comments DXA Scan 10/30/2020 10/30/2013, 10/20, 08/24/2009, Additional history exists COVID-19 Vaccine (4 - Booster for Moderna series) 09/05/2021 05/07/2021, 07/30/2020, 07/02/2020 Influenza Vaccine (FLU shot) (#1) 2022 06/05/2020, 04/08/2020, 03/20/2019, Additional history exists CKD HGB USE SMARTSET 74944 10/19/202210/19, 10/30/2020, 04/06/2020, Additional history exists CKD PHOS USE SMARTSET 17711 10/19/2022 0505/2021, 11/18/2019, 07/15/2019, Additional history exists [...] interpreted or resulted by a [facility] or [employer] contracted radiologist. documented in this encounter Advance Directives Documents on File Type Date Recorded Patient Director Weights And Measures Expl anation Advanced Directive service a mike [...] 08/13/2009 12:00 AM LIVING WILL Power of Realty Loan Specialist 08/13/2009 12:00 AM DOMONIQUE R OF LAUNDRY LABORER DURABLE HEALTH POA AND HEALTH CARE TREATMENT INSTR Power of Realty Loan Specialist 08/13/2009 12:00 AM DOMONIQUE R OF LAUNDRY LABORER DURABLE HEALTH CARE POA Care Teams Twisting Press Operator Relationship Specialty Start Date End Date Bj Mario, DO [address] [place] [address] PCP - General Family Medicine 11/28/16 documented as of this encounter
--- OUTSIDE RECORDS SUMMARY | 2023-01-22 22:51 | External Medical Summary | Summary of Care ---
Author Name Unknown Organization [place] [address] Care Team Providers Care Door Manager Name Role Phone Bj Mario DO Primary Care Provider [phone] Reason for Visit * Reason Onset Date Comments Adult Annual Wellness Visit, Subsequent Visit Adult Annual Wellness Visit, Subsequent Visit Encounter Details Date Type Department Care Team Description 01/17/2022 Nurse Only [facility]illary [facility] [place] [place] [address] [place] [address] [place], Nurse Annual Wellness [facility] [address] [place] [id number] Adult Annual Wellness Visit, Subsequent Vi... Allergies No known active allergiesdocumented as of this encounter (statuses as of 01/17/2022) Medications Medication Sig Dispensed Refills Start Date [...] for Dizziness. 30 Tab 0 04/25/2020 Active traMADol HCl 50 MG Oral Tablet (Ultram)Indications:C ervicalgia,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 neurogenic claudication Take 1 Tab by mouth daily as needed for Pain, Severe. 30 Tab 0 10/06/2020 Active Timolol Maleate 0.5 % Ophthalmic Solution [...] the morning. 90 Tablet 1 12/31/2021 Active documented as of this encounter (statuses as of 01/17/2022) Active Problems Problem Noted Date Chronic kidney disease, stage 3b 021 Overview: Per CKD protocol 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 09/29/2020 Overview: Per CKD protocol History of deep vein thrombosis (DVT) of lower extremity 09/08/2016 Status post insertion of drug eluting co ronary artery stent 04/07/2015 Overview: 2009, DUS placed in the mid RCA at [facility] Asymptomatic bilateral carotid artery st enosis 06/10/2014 Raynaud phenomenon 06/13/2011 Knee joint replacement status 01/13/2011 Overview: 2014, right Dr Ricardo [facility] 2011: left Dr Priya Ricardo [facility] Dyslipidemia, goal LDL below 70 09/21/19 11 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 neurogenic claudication 02/17/2010 Vitamin D deficiency 10/13/2009 Chronic ischemic heart disease 0 S/P angioplasty with stent 06/30/2009 Overview: 07/01/2009 DUS in the RCA at [facility] Non-toxic multinodular goiter 04/21/2009 Overview: seen on US, repeat -10/2009 HTN, goal below 140/90 05/25/2006 Advance directive on file 01/19/2005 Overview: No, Advance Directive brochure given to patient. Hip joint replacement status 01/19/2005 Overview: right 2000, left 1992 Menopause Macular degeneration Overview: Ugo Simon MD Glaucoma of both eyes Overview: Paul Smion MD, drops used bilateral Both cataracts also documented as of this encounter (statuses as of 01/17/2022) Resolved Problems Problem Noted Date Resolved Date [...] as of this encounter (statuses as of 01/17/2022) Immunizations Name Administration Dates Next Due COVID-19 [...] Reading Time Taken Comments Blood Pressure 118/64 01/17/2022 10:02 AM EDT Pulse 48 01/17/2022 10:02 AM EDT Temperature 36.2 C (97.2 F) 01/17/2022 10:02 AM E DT Respiratory Rate 18 01/17/2022 10:02 AM EDT Oxygen Saturation 95% 01/17/2022 10:02 AM EDT Inhaled Oxygen Concentration - - Weight 84.6 kg (186 lb 6.4 oz) 01/17/2022 10:02 AM EDT Height 160 cm (5' 3") 01/17/2022 10:02 AM EDT Body Mass Index 33.02 01/17/2022 10:02 AM EDT documented in this encounter Patient Instructions * Patient Instructions* Mounika Torres RN - 01/17/2022 9:39 AM EDT Patient Instructions - Fall Prevention (This education is for all patients over 65 regardless of symptoms) Remember to take your current medications as prescribed. In order to prevent falls, you are encouraged to: Exercise Utilize assistive/adaptive devices Avoid multifocal lenses when walking Avoid hazards in home Maintain a regular toileting schedule Any questions please contact our office. Preventing Falls in the Home (This education is for all patients over 65 regardless of symptoms) As you get older, falls are more likely. Thats because your reaction time slows. Your muscles and joints may also get stiffer, making them less flexible. Illness, medications, and vision changes can also affect your balance. A fall could leave you unable to live on your own. To make your home safer, follow these tips: Floors Put nonskid pads under area rugs Remove throw rugs Replace worn floor coverings Tack carpets firmly to each step on carpeted stairs. Put nonskid strips on the edges of uncarpeted stairs Keep floors and stairs free of clutter and cords Arrange furniture so there are clear pathways Clean up any spills right away Bathrooms Install grab bars in the tub or shower Apply nonskid strips or put a nonskid rubber mat in the tub or shower Sit on a bath chair to bathe Use bathmats with nonskid backing Lighting Keep a flashlight in each room Put a nightlight along the pathway between the bedroom and the bathroom [employer] Patient Education Copyright 2008 - 2010 Jelani except where otherwise noted Preventing Falls: Exercises to Improve Balance, Flexibility, Strength, and Staying Power (This education is for all patients over 65 regardless of symptoms) Certain types of exercises may help make you less likely to fall. Try the ones below. Or do other exercises that your healthcare provider suggests. Depending on your health, you may need to start slowly. Dont let that stop you. Even small amounts of exercise can help you. Be sure to talk to yourhealthcare provider before starting any exercise program. Improve Balance Many types of exercise can help improve balance. Dwight chi and yoga are good examples. Heres another one to try. You can do it anytime and almost anywhere. Stand next to a counter or solid support. Push yourself up onto your tiptoes. Hold for 5 seconds. If you start to lose your balance, hold on to the counter. Rest and repeat 5 times. Work up to holding for 20 to 30 seconds, if you can. Increase Flexibility Being more flexible makes it easier for you to move around safely. Try exercises like the seated hamstring stretch. Sit in a chair and put one foot on a stool. Straighten your leg and reach with both hands down either side of your leg. Reach as far down your leg as you can. Hold for about 20 seconds. Go back to the starting position. Then repeat 5 times. Switch legs. Build Strength Resistance exercises help build strength. You can do them without equipment. Or you can use weights, elastic bands, or special machines. One such exercise is called the biceps curl. You can hold a 1 pound weight or even a can of soup. Do this exercise at least 3 times a week. Strive for everyday. Sit up straight in a chair. Keep your elbow close to your body and your wrist straight. Bend your arm, moving your hand up to your shoulder. Then slowly lower your arm. Repeat 5 times. Switch to the other arm. Build Your Staying Power Aerobic exercises make your heart and lungs stronger so you can keep moving longer. Walking and swimming are two of the best types of exercises you can do. Using a stationary bike is great, too. Find an aerobic exercise that you enjoy. Start slowly and build up. Even 5 minutes is helpful. Aimfor a goal of 30 minutes, at least 3 times a week. You dont have to do 30 minutes in one session. Break it up and walk a little throughout the day. More Helpful Tips Start easy. Slowly work up to doing more. Talk with your healthcare provider about the best exercises for you. Call senior centers or health clubs about exercise programs. If needed, have a family member watch you walk every so often to check your stability. Exercise with a friend. Choose an activity you both enjoy. Try exercises that you can do anytime, anywhere. Here are two examples. Have someone with you when you first try these: Practice walking by placing one foot right in front of the other. Stand up and sit down 10 times. Repeat this throughout the day. [employer] Patient Education Copyright 2009 - 2010 Jelani except where otherwise noted. Preventing Falls: Moving Safely Using a Cane or Walker (This education is for all patients over 65 regardless of symptoms) Keep the cane away from your feet so you dont trip. A walking aid, such as a cane or walker, can help you stay more independent and avoid falls. Remember to keep your walking aid within easy reach when youre in a chair or in bed. And learn how to use it safely so you dont injure yourself. Using a Cane If you have a stronger side, hold the cane on that side. 17. Get your balance. 18. Move the cane and your weaker leg forward. 19. Support your weight on both the cane and your weaker side. 20. Step with your stronger leg. 21. Start again from step 1. If youre using a folding walker, be sure you know how to lock it open. Check that its locked open before each use. Using a Walker 7. Roll the walker (or lift it, if youre using one without wheels) forward about 12 inches. 8. Step forward with your weaker leg first. 9. Use the walker to help keep your balance. 10. Bring your other foot forward to the center of the walker. 11. Start again from step 1. Helpful Tips Check with your healthcare provider about the right walking aid to use. Ask about a walker with a seat attached. Check the tips of your cane or walker to make sure they have nonskid covers. Move slowly from room to room. Dont candelaria. Sit down to get dressed. Use a alexander pack or backpack to keep your hands free. Get help for jobs that mean climbing, even on a stepstool. [employer]el[employer] Patient Education Copyright 2008 - 2010 Jelani except where otherwise noted. Urinary Incontinence Plan of Care Documentation: (This education is for all patients over 65 regardless of symptoms) Current medications reconciled. Patient encouraged to: Practice kegal exercises Provide education materials Use the restroom every 2 hours throughout the day Limit caffeine, alcohol, spicy foods and acidic foods Keep a bladder diary Limit fluid intake 3-4 hours before bed Lose weight Prevent constipation Take fluid pills at a time when you can get to the bathroom quickly Control sugar better if diabetic Limit fluid intake to 60 oz. per day Wear support stockings (TEDs)if you have edema Mounika Torres RN 01/17/2022 Kegel Exercises Kegel exercises dont require special clothing or equipment. Theyre easy to learn and simple to do. And if you do them right, no one can tell youre doing them, so they can be done almost anywhere. Your doctor, nurse, or physical therapist can answer any questions you have and help you get started. A Weak Pelvic Floor The pelvic floor muscles may weaken due to aging, and vaginal childbirth, injury, surgery, chronic cough, or lack of exercise. If the pelvic floor is weak, your bladder and other pelvic organs may sag out of place. The urethra may also open too easily and allow urine to leak out. Kegel exercises can help you strengthen your pelvic floor muscles so they can better support the pelvic organs and control urine flow. How Kegel Exercises Are Done Try each of the Kegel exercises described below. When youre doing them, try not to move your leg, buttock, or stomach muscles. While youre urinating, try to stop the flow of urine. Start and stop it as often as you can. Contract as if you were stopping your urine stream, but do it when youre not urinating. Tighten your rectum as if trying not to pass gas. Contract your anus, but dont move your buttocks. Helpful Hints Do your Kegels as often as you can. The more you do them, the faster youll feel the results. Pick an activity you do often as a reminder. For instance, do your Kegels every time you sit down. Tighten your pelvic floor before you sneeze, get up from a chair, cough, laugh, or lift. This protects your pelvic floor from injury and can help prevent urine leakage. Try to hold each Kegel for a slow count to five. You probably wont be able to hold them for thatlong at first, but keep practicing. It will get easier as your pelvic floor gets stronger. Eventually, special weights that you place in your vagina may be recommended to help make your Kegels even more effective. Jelani Patient Education Copyright 2009 - 2011 Jelani except where otherwise noted. Here are some helpful tips for your urinary incontinence: (This education is for all patients over 65 regardless of symptoms) Practice Kegel exercises Use the restroom every 2 hours throughout the day Limit caffeine, alcohol, spicy foods, and acidic foods Keep a bladder diary Limit fluid intake 3-4 hours before bed Lose weight Prevent constipation Take fluid pills at a time when can get to the bathroom quickly Control sugar better if diabetic Limit fluid intake to 60 oz. per day Any questions, please feel free to contact our office. Hi Ms. Hu, As your primary care physician, I know that regular visits with my patients who have several chronic conditions can go a long way in helping you stay healthy. Many times, the clinic team and I are in touch with you and/or other care team members between office visits to adjust medications, discuss any changes in your health, and review our care plan to make sure it is still meeting your needs. I am dedicated to helping you take a more active role in your overall care. It is important that there are resources available to you, so I created a personalized plan of care with a Health Calendar for you, which is included on the next page of this letter. Below is a list that summarizes your electronic health record: Health Maintenance Due: Health Maintenance Due Topic Date Due Alb / Creat Ratio 04/11/2017 DXA Scan 10/30/2020 Depression Screening, Annual for Pts 12 and Over 08/28/2021 COVID-19 Vaccine (4 - Booster for Moderna series) 09/05/2021 Current Medication List: (as of Visit date not found (in office), Visit date not found (telemedicine) ) Current Outpatient Medications Medication Sig Dispense Refill [...] both eyes every evening 2.5 mL 5 traMADol HCl 50 MG Oral Tablet (Ultram) Take 1 Tab by mouth daily as needed for Pain, Severe. 30 Tab 0 Timolol Maleate 0.5 % [...] Tablet in the morning. 90 Tablet 1 cyclobenzaprine (FLEXERIL) 5 MG Tablet Take 1 Tab by mouth 2 times a day as needed for Muscle spasms. 60 Tab 5 Meclizine HCl 12.5 MG Oral Tablet (ANTIVERT) Take 1 Tab by mouth 3 times a day as needed for Dizziness. 30 Tab 0 No current facility-administered medications for this visit. Current List of Allergies: (as of Visit date not found (in office), Visit date not found (telemedicine) ) Review of patient's allergies indicates: No Known Allergies Most Recent Lab Results: Results for orders placed or performed in visit on 10/19/21 CBC Result Value Ref Range WBC 6.27 4.00 - 10.80 K/uL RBC 3.70 (L) 3.85 - 5.15 M/uL HGB 11.4 (L) 12.0 - 15.3 g/dL HCT 34.4 (L) 36.0 - 45.2 % MCV 93.0 81.5 - 97.5 fL MCH 30.8 27.0 - 34.0 pg MCHC 33.1 32.0 - 36.0 g/dL RDW 13.0 11.5 - 15.5 % PLT 265 140 - 400 K/uL MPV 9.7 6.6 - 11.1 fL COMPREHENSIVE METABOLIC PANEL Result Value Ref Range BUN 29 (H) 6 - 20 mg/dL Creatinine 1.6 (H) 0.5 - 1.0 mg/dL Estimated Glomerular Filtration Rate 31 (L) >=60 mL/min Sodium 137 135 - 146 mmol/L Potassium 4.7 3.5 - 5.1 mmol/L Chloride 103 98 - 107 mmol/L CO2 23 22 - 32 mmol/L Anion Gap 11 7 - 15 mmol/L Glucose 94 70 - 120 mg/dL Albumin 4.2 3.8 - 5.0 g/dL AST 23 10 - 35 U/L Alkaline Phosphatase 105 35 - 130 U/L Bilirubin, Total 0.2 <=1.2 mg/dL Calcium 9.3 8.4 - 10.2 mg/dL Protein 6.6 6.0 - 8.3 g/dL ALT 13 10 - 35 U/L PHOSPHORUS Result Value Ref Range Phosphorus 4.2 2.5 - 4.8 mg/dL Sincerely, Bj Mario, DO 01/17/2022 [facility] Calendar (as of Visit date not found (in office), Visit date not found (telemedicine) ) Care needs Care needs Last completed Due next Urine albumin/creatinine test 04/11/2016 04/11/2017 Bone Density 10/30/2013 10/30/2020 COVID-19 Vaccine (4 - Booster for Moderna series) 05/07/2021 09/05/2021 Flu vaccine (recommended) (1) 06/05/2020 01/20/2022 Diphtheria, tetanus & pertussis vaccines (2 - Td or Tdap) 08/28/2018 08/28/2028 As you look over the recommended services, be sure to check with your insurance company to determine what's covered. [employer] is a great tool that helps you review your medical record online, including test results, doctor notes and your health summary. You can also schedule appointments with me and other members of your care team, request prescription refills and ask for advice related to your medical conditions at [email or web address]. documented in this encounter Progress Notes * Mounika Torres RN - 01/17/2022 9:47 AM EDT AD8 Dementia Screening Interview Person answering questions: patient Remember, "Yes, a change" indicates that there has been a change in the last several years caused by cognitive (thinking and memory) problems 1. Problems with judgement (eg: problems making decisions, bad financial decisions, problems with thinking). No (0) 2. Less interest in hobbies/activities. No (0) 3. Repeats the same things over and over (questions, stories, or statements). No (0) 4. Trouble learning how to use a tool, appliance, or gadget (eg: VCR, computer, microwave, remote control). No (0) 5. Forgets correct month or year. No (0) 6. Trouble handling complicated financial affairs (eg: balancing checkbook, income taxes, paying bills). No (0) 7. Trouble remembering appointments. No (0) 8. Daily problems with thinking and/or memory. No (0) TOTAL AD8: 0 - AD8 Dementia Screening Score The final score is a sum of the number items marked "Yes, A Change". 0 - 1: Normal cognition; 2 or greater: Cognitive impairments is likely to be present - further testing required Adult Annual Wellness Visit: Eugenia Hu is a 86 year old female who presents for an Adult Annual Wellness Visit. Depression Screening: Did the patient complete the screening questionnaire for Depression? Yes Is the patient's total score for Depression 15 or greater? No, no further intervention needed, unless requested by patient. Did the patient answer positively to the suicide question? No, no further intervention needed, unless requested by patient. Patient scored 4 (no depression) on depression screening. In general, compared to other people your age, what would you say that your health is? Good Ht Readings from Last 1 Encounters: 01/17/22 1.6 m (5' 3") Wt Readings from Last 1 Encounters: 01/17/22 84.6 kg (186 lb 6.4 oz) Body Mass Index: BMI Greater than 30 Body mass index is 33.02 kg/m. BP Readings from Last 1 Encounters: 01/17/22 118/64 Medical/Surgical/Family History Reviewed: Yes Past Medical History: Diagnosis Date Chronic kidney disease, stage 3b (HCC) 11/03/2020 Per CKD protocol Dyslipidemia, goal LDL below 100 Dyslipidemia, goal to be determined Hip joint replacement status 2000 right 2000, left 1992 HTN, goal below 140/90 HTN, goal below 140/90 05/25/2006 Knee joint replacement status 01/13/[address] Priya Ricardo [facility] Knee joint replacement status 12/15/2013 right [facility] Macular degeneration Ugo Simon MD Menopause 1974 Need for prophylactic hormone replacement therapy (postmenopausal) 1973 Non-toxic multinodular goiter 04/2009 seen on US, repeat -10/2009 Other screening mammogram 10/24/03 Birad Code 2 Other specified glaucoma both eyes, Paul Simon MD, drops used, timolol S/P angioplasty with stent 06/30/09 [facility] Status post insertion of drug eluting coronary artery stent 04/07/20152009, DUS placed in the mid RCA at [facility] Vitamin D deficiency 10/13/2009 Past Surgical History: Procedure Laterality Date ARTHROPLASTY KNEE TOTAL Left 01/13/2011 Left, Dr Priya Ricardo [facility] ARTHROPLASTY KNEE TOTAL Right 12/16/13 Right, Dr Priya Ricardo [facility] CARDIAC CATH SCANNED RESULT 06/30/2009 DUS placed in right coronary, [facility] CARPAL TUNNEL SURGERY Bilateral 2014 bilateral COLONOSCOPY 03/22/2006 normal repeat in 2015 COLONOSCOPY, DIAGNOSTIC (RECTUM) 09/01/2016 diverticulosis/COLONOSCOPY FLEXIBLE PROXIMAL DIAGNOSTIC performed by Kaylie Ford MD at ENDOSCOPY [facility] COLONOSCOPY, DIAGNOSTIC (RECTUM) 10/09/2018 diverticulosis/[facility] COLONOSCOPY, GI REFERRAL OP 03/22/2005 diverticulosis, repeat in 10 years for surveillance reasons COLORECTAL CANCER SCREEN;W/FLE 1999 normal, Dr Estrella DENTAL SURGERY PROCEDURE NEC 1970 Dental Surgery Procedure tumor benign palate DEXA SCAN/BONE MINERAL AXIAL 07/2002 normal, repeat 2007 DEXA SCAN/BONE MINERAL AXIAL 07/20/2006 normal repeat in 6-8 years EGD, FLEXIBLE, DIAGNOSTIC 01/30/2019 acid reflux, Schatzki ring, hiatal hernia / [facility] EXERCISE ECHO 09/02/2002 normal, Dr Genao INJECT DX/THER SUBSTANCE INTERLAMINAR LUMBAR/SACRAL W IMAGE GUIDE 01/18/2018 INJECTION SPINE LUMBAR OR SACRAL performed by Paul Azam Kimsins, DO at OR [facility] INJECT DX/THER SUBSTANCE INTERLAMINAR LUMBAR/SACRAL W IMAGE GUIDE 02/12/2018 INJECTION SPINE LUMBAR OR SACRAL performed by [place] Azam Kimsins, DO at OR [facility] INJECT DX/THER SUBSTANCE INTERLAMINAR LUMBAR/SACRAL W IMAGE GUIDE 12/27/2018 INJECTION SPINE LUMBAR OR SACRAL performed by [place] Azam Kimsins, DO at OR [facility] INJECT DX/THER SUBSTANCE INTERLAMINAR LUMBAR/SACRAL W IMAGE GUIDE 02/21/2019 INJECTION SPINE LUMBAR OR SACRAL performed by Paul Azam Culps, DO at OR [facility] INJECT DX/THER SUBSTANCE INTERLAMINAR LUMBAR/SACRAL W IMAGE GUIDE 08/06/2020 INJECTION SPINE LUMBAR OR SACRAL performed by Paul Berg, DO at OR [facility] MAMMOGRAM - BILATERAL 2.1.02 negative finding. birad [...] one ovary left in, Dr Chakraborty in [facility] REMOVE CATARACT, INSERT LENS PROSTH Right 01/05/[address] Messi Simon REMOVE CATARACT, INSERT LENS PROSTH Left 01/28/[address] Messi Simon STENT, COATED/COVERED, WITH DELIVERY SYSTEM 06/30/2009 [employer] [facility] Eluding Stent [facility] TOTAL HIP REPLACEMENT & PROSTHESIS 1992 left, Dr Ricardo TOTAL HIP REPLACEMENT & PROSTHESIS 10/2000 right , Dr Ricardo at [facility] Family History Problem Relation Age of Onset Cancer Mother cancer of bone Lung Disorder Father old age with heart failure Heart disease Father Heart attack Brother 62 Lung Disorder Brother smoker Heart attack Brother age 62 Heart disease Brother angina No Known Problems Son No Known Problems Daughter No Known Problems Daughter Has patient ever had cancer? No Social History Tobacco Use Smoking status: Never Smoker Smokeless tobacco: Never Used Substance Use Topics Alcohol use: Not Currently Comment: occasional Vaping/E-Cigarette Use Vaping/E-Cigarette Use Never User Vaping/E-Cigarette Substances Nicotine No Other No Flavoring No THC No Cannabidiol (CBD) No Vaping/E-Cigarette Devices Disposable No Pre-filled or Refillable Cartridge No Refillable Tank No Pre-filled Pod No Tobacco/Alcohol screening completed today? Yes Hospital Care: Admissions (within the last year): Not Applicable ER within 30 days: No Does the patient have an Advance Directives/Living Will? Yes Last Physical Exam: Last physical exam: 10/19/21 Does patient see primary provider regularly? Yes Does patient see other providers? Yes, Specialist Patient Care Team updated? Yes Review of patient's allergies indicates: No Known Allergies Immunization History Administered Date(s) Administered COVID-19 mRNA, LNP-s, No Preserve, 2-Dose Series (Moderna) 07/02/2020, 07/30/2020 Covid-19 Mrna, Lnp-s, No Preserve, Booster (Moderna) 05/07/2021 Pneumococcal Conjugate Vacc, 13 Valent (Prevnar) 09/22/2014 Pneumococcal Polysaccharide PPV23 (Pneumovax) 03/12/2002 Seasonal Influenza, Quadrivalent, No Preserve, 6 Mons & Above, IM 03/23/2017, 03/14/2018 Seasonal Influenza, Quadrivalent, No Preserve, Adjuvanted, 65+ Yrs, IM 04/08/2020, 06/05/2020 Seasonal Influenza, Quadrivalent, No Preserve, IM 04/06/2015, 04/11/2016 Seasonal Influenza, Split, IIV3, With Preserve, Inj 03/12/2002, 03/12/2003, 03/01/2006, 02/22/2007, 03/30/2007, 04/28/2008, 02/04/2009, 02/17/2010, 03/18/2011, 03/20/2012, 04/25/2013, 03/10/2014 Seasonal Influenza, Trivalent, Adjuvanted, 65+ yrs 03/20/2019 TD, Preservative Free 04/28/2008, 04/21/2012 TDAP (age 10 and older)(Boostrix) 08/28/2018 Varicella Zoster Vaccine (Adult) 06/11/2008 Zoster Vaccine Recombinant (Shingrix) 11/18/2019, 02/26/2020 Current Outpatient Medications Medication Sig Dispense Refill [...] both eyes every evening 2.5 mL 5 traMADol HCl 50 MG Oral Tablet (Ultram) Take 1 Tab by mouth daily as needed for Pain, Severe. 30 Tab 0 Timolol Maleate 0.5 % [...] Tablet in the morning. 90 Tablet 1 cyclobenzaprine (FLEXERIL) 5 MG Tablet Take 1 Tab by mouth 2 times a day as needed for Muscle spasms. 60 Tab 5 Meclizine HCl 12.5 MG Oral Tablet (ANTIVERT) Take 1 Tab by mouth 3 times a day as needed for Dizziness. 30 Tab 0 No current facility-administered medications for this visit. Patient Active Problem List Diagnosis Code Advance [...] Chronic kidney disease, stage 3b (HCC) N18.32 Medication Compliance: Patient is able to obtain all of her medications? Yes Patient takes medications as prescribed? Yes Patient manages own medications: Yes Patient uses a pill box? Yes, refill(s) completed by self Dental Exam: No Eye Screening: Yes: Every 4 months Are you having trouble with hearing? Yes Do you use an assistive device to help your hearing? Yes Exercise Screening: only the exercise associated with activities daily work around the house. Nutrition Assessment: Eats a balanced diet and Eats three meals a day Pain Screening: Are you having any pain? Yes. Pain Scale: 8 out of 10; Location: Lower back, When: Movement/daily, Duration: n/a, Aggravating Factors: Movement, Relieved by: Resting and taking tylenol daily, ultram prn. Sleep Screening Tool 'STOP': 1. Do you snore? No 2. Do you feel fatigued during the day? No 3. Do you wake up feeling like you haven't slept? No 4. Have you been told you stop breathing at night? No 5. Do you gasp for air or choke while sleeping? No 6. Have you been told you have Sleep Apnea? No 7. Do you have high blood pressure or are on medication(s) to control high blood pressure? Yes SCORE: If you check YES to two or more questions, make a referral for Obstructive Sleep Apnea Patient and Caregiver Support System: Patient lives with children, daughter lives with her. Means of Transportation: Drives. Not a concern. Patient lives in One Story - with basement stairs: 10 stairs to basement and 6 stairs in and out ofhouse, both have railings. Community Resources: Not Applicable Functional Status and ADL Skills: Has patient ever had an amputation? No Functional Assessment: 80- Normal activity with effort: some symptoms of disease Ambulation: Patient ambulates with assistive device. Cane at times. Sometimes uses a rolling walker with seat when she is out walking long distances or different terrains. Dressing: Gets clothes and dresses without any assistance: Independent Able to move freely in chair or bed including turning over: Independent Repositioning (bed or chair): Not applicable Transfers: Independent Toileting: Goes to bathroom, uses toilet, arranges clothes and returns without any assistance: Independent Toileting: continent of bladder and continent of bowel Feeding: Self Bathing: Self; Shower Chair, walk in shower, no grab bar present in shower, but there is one outside of shower, floor of shower is textured, when getting out of shower patient steps out onto bath mat/rug. Requires none assistance with ADLs. Instrumental ADL's: Shopping: Independent Housekeeping: Independent Handling Finances: Independent DME Vendor Name: Not Applicable Fall Risk Assessment: Can the patient demonstrate that she can stand from a sitting position? Yes Has the patient had a fall within the last 6 months? No Does the patient have a problem with her gait or balance? No Does the patient take 4 or more prescription medicines? Yes Does the patient use sedatives or narcotics? No Fall Risk Factors Present: Uses more than 4 medications Uses assistive devices Lower extremity weakness Older than age 70 Fee-Zb-uwz-Go Test: Time began at 0930. Patient stood from sitting position and walked approximately 10 feet, returned and sat down. Total time for onj-tc-fhq-go test was 12 seconds. Qza-Kr-jdk-Go Test completed? Yes Gender Specific Preventative Plan: Health Maintenance Topic Date Due Alb / Creat Ratio 04/11/2017 DXA Scan 10/30/2020 Depression Screening, Annual for Pts 12 and Over 08/28/2021 COVID-19 Vaccine (4 - Booster for Moderna series) 09/05/2021 Influenza Vaccine (FLU shot) (1) 01/20/2022 CKD HGB USE SMARTSET 22083 10/19/2022 CKD PHOS USE SMARTSET 48033 10/19/2022 DTaP,Tdap,and Td Vaccines (2 - Td or Tdap) 08/28/2028 Zoster Vaccines Completed Pneumococcal Vaccine: 65+ Years Completed Hepatitis B Aged Out MENINGOCOCCAL (MENACTRA/MENVEO) Aged Out GARDASIL-HPV IMMUNIZATION SERIES Aged Out Follow Up/ Referrals/Handouts: No further action needed Chronic kidney disease, stage 3b (HCC) (Primary) - ALBUMIN / CREATININE RATIO, URINE; Future; Expected date: 01/17/2022, done 01/17/22. Risk and functional assessment Routine general medical examination at a health care facility HTN, goal below 140/90 - ALBUMIN / CREATININE RATIO, URINE; Future; Expected date: 01/17/2022, done 01/17/22 Continue to monitor and take current medications. BP Readings from Last 3 Encounters: 01/17/22 118/64 11/01/21 108/62 05/31/22 102/64 Dyslipidemia, goal LDL below 70 Continue to monitor and take current medications. Lab Results Component Value Date/Time LDL CHOLESTEROL (CALCULATED) - GIOVANNI 59 04/04/2019 10:11 AM LDL CHOLESTEROL (DIRECT MEASURE) - GIOVANNI 72 04/19/2021 09:18 AM LDL CHOLESTEROL (DIRECT MEASURE) - GIOVANNI 67 04/06/2020 10:20 AM LDL CHOLESTEROL (DIRECT MEASURE) - GIOVANNI 92 06/13/2011 10:52 AM Asymptomatic bilateral carotid artery stenosis Chronic ischemic heart disease Continue to monitor and take current medications. and follow-up with cardiology. Last carotid duplex 12/18/2018: Right carotid artery duplex examination indicates evidence of less than 50% stenosis of the internal carotid artery. Left carotid artery duplex examination indicates evidence of 50-69% stenosis of the internal carotid artery. 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) Continue to monitor and take current medications. Last labs 10/19/21: BUN 6 - 20 mg/dL 29High Creatinine 0.5 - 1.0 mg/dL 1.6High Estimated Glomerular Filtration Rate >=60 mL/min 31Low Vitamin D deficiency Continue to monitor and take current medications. Continue to follow up with endocrinology. Last vit D level 07/02/20: 57 Glaucoma of both eyes Macular degeneration Continue to monitor and take current medications. Continue to follow-up with eye doctor. 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 neurogenic claudication Continue to monitor and take current medications. Patient is requesting pain management referral for possible pain injections. Has had them twice in the past, last one 07/2020 with success. Patient has been verbally educated on the need or importance of Dexa Scan and Urine Microalbumin, albumin creat ratio done 01/17/22, patient reports cancelling her dexa scan, she does not think she needs this test done due to her age. Encouraged patient to talk with Dr. Mario at her next appointment about dexa scan. Patient had both covid vaccines and a booster shot, she is aware she can have another covid boostershot. Patient continues to have lower back pain, she is requesting a refill of her tramadol and a pain management referral. Will send separate telephone encounter to Dr. Mario for request. Follow Up: Return in 1 year (on 01/17/2023) for 12 month Subsequent Adult Wellness Visit. | For: 12 month Subsequent Adult Wellness Visit | Check-out note: 12 month Subsequent Adult Wellness Visit Would patient like to schedule next AWV visit? Yes Mounika Torres RN documented in this encounter Miscellaneous Notes * Pt Handout (on AVS) - Mounika Torres RN - 01/17/2022 10:15 AM EDT 34653 Preventing Falls: Making Changes in Your Living Space Is your living space filled with hazards that could cause you to fall? Changes can make you safer. They could even save your life. Take a careful look around your home. Change what you can on your own. Hire someone or ask friends or family to help with harder tasks. Be sure to add a nonslip mat to the inside of your shower or bathtub. Always keep a nightlight on. Keep a clear path from your bed to the bathroom. Move items from higher shelves to lower ones. Remove hazards Remove things that can trip you, like throw rugs, boxes, piles of paper, or cords. Nail down rugs or carpeting if you don't want to remove them. Don't store items on stairs. Keep walkways clear. Clean up spills right away. Replace glass tables with wooden ones. They're safer if you fall. Add safety devices Add handrails to both sides of stairs. Buy a raised toilet seat. Add grab bars near the toilet and in the shower. Get grabbers to help you reach things and avoid climbing. Improve lighting Add nightlights to halls, bedrooms, and bathrooms. Put light switches at the top and bottom of stairs. Be sure each room and flight of stairs has proper lighting. Use shades or curtains to cut glare from windows. Put flashlights in each room. Replace burned-out bulbs. Get glowing light switches for room entrances. Take other precautions Use nonskid floor wax. Buy a nonslip mat and a liquid soap dispenser for the shower. Tack down carpets or use slip-resistant backing. Put most-used items within easy reach. Add bright paint or tape on the top front edge of steps. Save big jobs, such as moving furniture or other heavy objects, for family or friends. Get professional help installing grab bars. They can be unsafe if not installed the right way. Fix riskier rooms first Don't tackle everything at once. Focus on one room at a time. The bathroom is a common spot for falls, so you may want to start there. Or start with a room you spend lots of time in, such as your bedroom. Make only a few changes at once. This will give you time to adjust to them. Outside safety You might arrange for these changes yourself, or you might need to talk to your building architect orhomeowners' association about them. Have loose boards on porches or damaged stairs repaired. Have rough edges, holes, or large cracks in sidewalks or driveways repaired. Remove hazards that could trip you, such as hoses or samantha. Use high-wattage light bulbs (100 tatum or greater) near outside doors and stairs. Add handrails to outside stairs. Have them extend beyond the bottom step. Get help in winter weather with ice or snow removal. Last Reviewed Date: 09/20/201919997973-9322 [employer]. All rights reserved. This information is not intended as a substitute for professional medical care. Always follow your healthcare professional's instructions. * Pt Handout (on AVS) - Mounika Torres RN - 01/17/2022 10:13 AM EDT 28345 Exercises to Prevent Falls Certain types of exercises may help make you less likely to fall. Try the ones below or do other exercises that your healthcare provider suggests. Depending on your health, you may need to start slowly. Don't let that stop you. Even small amountsof exercise can help you. Talk with your healthcare provider before starting any exercise program. Improve balance Many types of exercise can help improve balance. Dwight chi and yoga are good examples. Here's anotherone to try. You can do it anytime and almost anywhere. Stand next to a counter or solid support. Push yourself up onto your tiptoes. Hold for 5 seconds. If you start to lose your balance, hold on to the counter. Rest and repeat 5 times. Work up to holding for 20 to 30 seconds, if you can. Increase flexibility Being more flexible makes it easier for you to move around safely. Try exercises like the seated hamstring stretch. Sit in a chair and put one foot on a stool. Straighten your leg and reach with both hands down either side of your leg. Reach as far down your leg as you can. Hold for about 20 seconds. Go back to the starting position. Then repeat 5 times. Switch legs. Build strength Resistance exercises help build strength. You can do them without equipment. Or you can use weights, elastic bands, or special machines. One such exercise is called the biceps curl. You can hold a 1-pound (0.45 kg) weight or even a can of soup. Do this exercise at least 3 times a week. Strive for every day. Sit up straight in a chair. Keep your elbow close to your body and your wrist straight. Bend your arm, moving your hand up to your shoulder. Then slowly lower your arm. Repeat 5 times. Switch to the other arm. Build your staying power Aerobic exercises make your heart and lungs stronger so you can keep moving longer. Walking and swimming are 2 of the best types of exercises you can do. Using a stationary bike is great, too. Find an aerobic exercise that you enjoy. Start slowly and build up. Even 5 minutes is helpful. Aim for a goal of 30 minutes, at least 3 times a week. You don't have to do 30 minutes in 1 session. Break it up and walk a little throughout the day. Starting out safely and slowly Start easy. Slowly work up to doing more. Talk with your healthcare provider about the best exercises for you. Call senior centers or health clubs about exercise programs. If needed, have a family member watch you walk every so often to check your stability. Exercise with a friend. Choose an activity you both enjoy. Consider dwight chi or yoga to strengthen your balance. Try exercises that you can do anytime, anywhere. Here are 2 examples. Have someone with you whenyou first try these: o Practice walking by placing one foot right in front of the other. o Stand up and sit down 10 times. Repeat this throughout the day. Last Reviewed Date: 08/21/201919999588-0239 [employer]. All rights reserved. This information is not intended as a substitute for professional medical care. Always follow your healthcare professional's instructions. documented in this encounter Plan of Treatment Upcoming Encounters Date Type Specialty Care Team Description 04/27/2022 Office Visit Cardiology Yvon Harris PA-C [address] [facility] [place] [id number] 05/09/2022 Office Visit Family Medicine Bj Mario, DO [address] [place] [address] 01/18/2023 Nurse Only [place]illary [place], Nurse [facility] [address] [place] [address] Pending Results Name Type Priority Associated Diagnoses Date /Time ALBUMIN / CREATININE RATIO, URINE Lab Routine Chronic kidney disease, stage 3b (HCC) HTN, goal below 140/90 01/17/2022 10:28 AM EDT Scheduled Orders Name Type Priority Associated Diagnoses Orde r Schedule ALBUMIN / CREATININE RATIO, URINE Lab Routine Chronic kidney disease, stage 3b (HCC) HTN, goal below 140/90 Expected: 01/17/2022 (Approximate), Expires: 01/17/2023 Health Maintenance Due Date Last Done Comments Alb / Creat Ratio 04/11/2017 04/11/2016 DXA Scan 10/30/2020 10/30/2013, 10/20, 08/24/2009, Additional history exists Depression Screening, Annual for Pts 12 and Over 08/28/2021 01/17/2022 COVID-19 Vaccine (4 - Booster for Moderna series) 09/05/2021 05/07/2021, 07/30/2020, 07/02/2020 Influenza Vaccine (FLU shot) (#1) 2022 06/05/2020, 04/08/2020, 03/20/2019, Additional history exists CKD HGB USE SMARTSET 75555 10/19/202210/19, 10/30/2020, 04/06/2020, Additional history exists CKD PHOS USE SMARTSET 53614 10/19/202209/21, 11/18/2019, 07/15/2019, Additional history exists DTaP,Tdap,and Td Vaccines (2 [...] of this encounter Visit Diagnoses Diagnosis Chronic kidney disease, stage 3b (HCC)- Primary Risk and functional assessment Screening for unspecified condition Routine general medical examination at a health care facility HTN, goal below 140/90 Unspecified essential hypertension Dyslipidemia, goal LDL below 70 Other and unspecified hyperlipidemia Asymptomatic bilateral carotid artery stenosis Occlusion and stenosis of multiple and bilateral precerebral arteries without mention of cerebral infarction 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) Chronic ischemic heart disease Chronic ischemic heart disease, unspecified Vitamin D deficiency Unspecified vitamin D deficiency Glaucoma of both eyes Unspecified glaucoma Macular degeneration Macular degeneration (senile) of retina, unspecified 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 neurogenic claudication Spinal stenosis, lumbar region, without neurogenic claudication documented in this encounter Advance Directives Documents on File Type Date Recorded 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
--- OUTSIDE RECORDS SUMMARY | 2023-01-22 22:51 | External Medical Summary | Summary of Care ---
Author Name Unknown Organization [place] [address] Care Team Providers Care Electronic Resources Librarian Name Role Phone Bj Mario DO Primary Care Provider [phone] Encounter Details Date Type Department Care Team Description 12/16/2021 External Data Patient Risk Medial Allergies No known active allergiesdocumented as of this encounter (statuses as of 12/22/2021) Medications Medication Sig Dispensed Refills Start Date End Date Status ASPIRIN 81 MG PO CHEW One pill by mouth once a day with food 100 5 08/06/2008 Active VITAMIN D 1000 UNIT PO CAPSIndications:Vit fishman D deficiency 1 capsule daily 30 Cap 11 10/13/2009 Active nitroglycerin (NITROSTAT) 0.4 MG SUBLIndications:Chr onic ischemic heart disease 1 every 5 min as needed with chest pain up to 3 doses in 15 minutes 25 Tab 11 10/09/2017 Active Additional Information Patient not taking. Reported on 11/01/2021 acetaminophen (TYLENOL EXTRA STRENGTH) 500 MG Tablet Take 500 mg by mouth every 6 hours as needed for Pain. 0 Active cyclobenzaprine (FLEXERIL) 5 MG TabletIndications:S pasm of muscle Take 1 Tab by mouth 2 times a day as needed for Muscle spasms. 60 Tab 5 03/20/2019 Active Diclofenac Sodium (VOLTAREN) 1 % gelIndications:Cerv icalgia Place 4 g topically on the skin 4 times a day. To affected area as directed. 100 g 5 09/03/2019 Active travoprost, MAYA Free, (TRAVATAN Z) 0.004 % ophthalmic solution instill 1 drop into both eyes every evening 2.5 mL 5 12/03/2019 Active Meclizine HCl 12.5 MG Oral Tablet (ANTIVERT)Indicatio ns:Benign paroxysmal vertigo of left ear Take 1 Tab by mouth 3 times a day as needed for Dizziness. 30 Tab 0 04/25/2020 Active traMADol HCl 50 MG Oral Tablet (Ultram)Indications :Cervicalgia,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 neurogenic claudication [...] 24 Hour (Imdur)Indications: Chronic ischemic heart disease Take 1 Tab by mouth daily. 100 Tab 3 03/17/2021 Active Famotidine 20 MG Oral Tablet (Pepcid)Indications :Gastroesophageal reflux disease without esophagitis take 1 tablet by mouth twice a day 180 Tablet 2 04/09/2021 Active Metoprolol Succinate ER 25 MG Oral Tablet Extended Release 24 Hour (toPROL XL)Indications:Rehabilitation Center Manager jose alberto ischemic heart disease Take 0.5 Tablets by mouth daily. 45 Tablet 3 04/19/2021 Active Rosuvastatin Calcium 20 MG Oral Tablet (Crestor)Indication s:Dyslipidemia, goal LDL below 70 take 1 tablet by mouth once daily 90 Tablet 2 05/17/2021 Active Lisinopril 10 MG Oral Tablet (Prinivil)Indicatio ns: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),Edema take 1 tablet by mouth once daily 90 Tablet 2 10/07/2021 Active Furosemide 20 MG Oral Tablet (Lasix)Indications: HTN, goal below 140/90 take 1 tablet by mouth once daily 90 Tablet 1 11/03/2021 Active documented as of this encounter (statuses as of 12/22/2021) Active Problems Problem Noted Date Chronic kidney disease, stage 3b 021 Overview: Per CKD protocol 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 09/29/2020 Overview: Per CKD protocol History of deep vein thrombosis (DVT) of lower extremity 09/08/2016 Status post insertion of drug eluting co ronary artery stent 04/07/2015 Overview: 2009, DUS placed in the mid RCA at [facility] Asymptomatic bilateral carotid artery st enosis 06/10/2014 Raynaud phenomenon 06/13/2011 Knee joint replacement status 01/13/2011 Overview: 2014, right Dr Ricardo [facility] 2011: left Dr Priya Ricardo [facility] Dyslipidemia, goal LDL below 70 09/21/19 11 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 neurogenic claudication 02/17/2010 Vitamin D deficiency 10/13/2009 Chronic ischemic heart disease 0 S/P angioplasty with stent 06/30/2009 Overview: 07/01/2009 DUS in the RCA at [facility] Non-toxic multinodular goiter 04/21/2009 Overview: seen [...] as of this encounter (statuses as of 12/22/2021) Resolved Problems Problem Noted Date Resolved Date [...] as of this encounter (statuses as of 12/22/2021) Immunizations Name Administration Dates Next Due COVID-19 mRNA, LNP-s, No Pre serve, 2-Dose Series (Moderna) 07/30/2020,07/02/2020 Pneumococcal Conjugate Vacc, 13 Valent (Prevnar) 09/22/2014 [...] drink = 0.6 oz pur e alcohol) Food Insecurity Answer Date Recorded Within the past 12 months, y ou worried that your food would run out before you got money to buy more. Never true 05/27/2019 Within the past 12 months, t he food you bought just didn't last and you didn't have money to get more. Never true 05/27/2019 Sex Assigned at Date Recorded Female 09/14/2018 8:42 AM E DT Job Start Date Occupation Industry Not on file Not on file Not on file documented as of this encounter Plan of Treatment Upcoming Encounters Date Type Specialty Care Team Description 01/17/2022 Nurse Only Ancillary Nurse [facility] [address] [place] [address] 05/09/2022 Office Visit Family Medicine Bj Mario DO [address] [place] [id number] Health Maintenance Due Date Last Done Comments DXA Scan 10/30/2020 10/30/2013, 10/20, 08/24/2009, Additional history exists COVID-19 Vaccine (3 - Booster for Moderna series) 12/30/2020 07/30/2020, 07/02/2020 Depression Screening, Annual for Pts 12 and Over 08/28/2021 08/28/2020 Influenza Vaccine (FLU shot) (#1) 2022 06/05/2020, 04/08/2020, 03/20/2019, Additional history exists CKD HGB USE SMARTSET 02723 10/19/202210/19, 10/30/2020, 04/06/2020, Additional history exists CKD PHOS USE SMARTSET 97065 10/19/2022 05/05/2021, 11/18/2019, 07/15/2019, Additional history exists DTaP,Tdap,and Td [...] Documents on File Type Date Recorded Patient Parts Classifier Expl anation Advanced Directive service a mike [...] 08/13/2009 12:00 AM LIVING WILL Power of Electrical Engineer Mep 08/13/2009 12:00 AM DOMONIQUE R OF HUMANITIES DEPARTMENT CHAIR DURABLE HEALTH POA AND HEALTH CARE TREATMENT INSTR Power of Electrical Engineer Mep 08/13/2009 12:00 AM DOMONIQUE R OF HUMANITIES DEPARTMENT CHAIR DURABLE HEALTH CARE POA Care Teams Electronic Resources Librarian Relationship Specialty Start Date End Date Bj Mario, DO [address] [place] [address] PCP - General Family Medicine 11/28/16 documented as of this encounter
--- OUTSIDE RECORDS SUMMARY | 2023-01-22 22:51 | External Medical Summary | Summary of Care ---
Author Name Unknown Organization [place] [address] Care Team Providers Care Port Engineer Name Role Phone Bj Mario DO Primary Care Provider [phone] Reason for Visit * Reason Onset Date Comments eRx-Medication Refill Medication Refill 12/31/2021 Medication Refill 01/03/2022 Encounter Details Date Type Department Care Team Description 12/31/2021 Refill Family Practice [facility] [place] [address] Bj Mario DO 200 [facility] [place] [address] Gastroesophageal reflux disease without esophagitis Allergies No known active allergiesdocumented as of this encounter (statuses as of 01/03/2022) Medications Medication Sig Dispensed Refills Start Date [...] traMADol HCl 50 MG Oral Tablet (Ultram)Indicatio ns:Cervicalgia,Sp inal stenosis of lumbar region without neurogenic [...] 05/17/2021 Active Lisinopril 10 MG Oral Tablet (Prinivil)Indicat [...] the morning. 90 Tablet 1 12/31/2021 Active Famotidine 20 MG Oral Tablet (Pepcid)Indicatio ns:Gastroesophage al reflux disease without esophagitis take 1 tablet by mouth twice a day 180 Tablet 2 04/09/2021 01/01/20 22 Discontinued documented as of this encounter (statuses as of 01/03/2022) Active Problems Problem Noted Date Chronic kidney [...] MD Glaucoma of both eyes Overview: Paul iSmon MD, drops used bilateral Both cataracts also documented as of this encounter (statuses as of 01/03/2022) Resolved Problems Problem Noted Date Resolved Date [...] as of this encounter (statuses as of 01/03/2022) Immunizations Name Administration Dates Next Due COVID-19 [...] encounter Miscellaneous Notes * Telephone Encounter - Amelie Spence RPh - 01/03/2022 8:59 AM EDT Placed call back to pt regarding previous message. Pt gave verbal understanding. Thank you, Amelie Spence, PharmD Clinical Pharmacist [facility] [phone] 01/03/2022, 9:00 AM * Telephone Encounter - Amelie Spence RPh - 12/31/2021 4:57 PM EDT Placed call to pt to notify lower dose of Famotidine was [id number] due to reduced renal function. No answer or or [facility] pt portal. Set remind me to try to call pt back on Monday. Thank you, Amelie Spence, PharmD Clinical Pharmacist [facility] [phone] 12/31/2021, 4:58 PM * Telephone Encounter - Jermaine Gooden DO - 12/31/2021 4:35 PM EDT Signed Prescriptions: Disp Refills Famotidine 10 MG Oral Tablet (Pepcid) 90 Tab*1 Sig: Take by mouth 1 Tablet in the morning. Authorizing Provider: JERMAINE GOODEN * Telephone Encounter - Amelie Spence [facility] - 12/31/2021 1:25 PM EDT Pending Prescriptions: Disp Refills Famotidine 10 MG Oral Tablet (Pepcid) 90 Tab*1 Sig: Take by mouth 1 Tablet in the morning. * Telephone Encounter - Amelie Spence [facility] - 12/31/2021 1:21 PM EDT Serum creatinine: 1.6 mg/dL (H) 10/19/21 1235 Estimated creatinine clearance: 26.7 mL/min (A) As per UpToDate: If usual dose is 20 mg twice daily and CrCl is < 30; 10 mg once daily or 20 mg every other day is recommended. Pending Prescriptions: Disp Refills Famotidine 10 MG Oral Tablet (Pepcid) [Ph*90 Tab*1 Sig: Take by mouth 1 Tablet in the morning. Please sign if agreeable and route back so I can advise her. Thank you, Amelie Spence, PharmD Clinical Pharmacist Telepharmacy [phone] 12/31/2021, 1:24 PM documented in this encounter Plan of Treatment Upcoming Encounters Date Type Specialty Care Team Description 01/17/2022 Nurse Only Ancillary Pauline, Nurse [facility] [address] [place] [address] 05/09/2022 Office Visit Family Medicine Bj Mario DO [address] [place] [address] Health Maintenance Due Date Last Done Comments DXA Scan 10/30/2020 10/30/2013, 10/20, 08/24/2009, Additional history exists COVID-19 Vaccine (3 - Booster for Moderna series) 12/30/2020 07/30/2020, 07/02/2020 Depression Screening, Annual for Pts 12 and Over 08/28/2021 08/28/2020 Influenza Vaccine (FLU shot) (#1) 2022 06/05/2020, 04/08/2020, 03/20/2019, Additional history exists CKD HGB USE SMARTSET 53583 10/19/202210/19, 10/30/2020, 04/06/2020, Additional history exists CKD PHOS USE SMARTSET 61559 10/19/2022 0505/2021, 11/18/2019, 07/15/2019, Additional history exists DTaP,Tdap,and Td [...] as of this encounter Visit Diagnoses Diagnosis Gastroesophageal reflux disease without esophagitis Esophageal reflux documented in this encounter Advance Directives Documents on File Type Date Recorded 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
--- OUTSIDE RECORDS SUMMARY | 2023-01-22 22:51 | External Medical Summary | Summary of Care ---
Author Name Unknown Organization [facility] [place] [address] Care Team Providers Care Clinical Services Consultant Name Role Phone Bj Mario DO Primary Care Provider [phone] Reason for Visit * Reason Onset Date Comments eRx-Medication Refill Medication Refill 12/31/2021 Encounter Details Date Type Department Care Team Description 12/31/2021 Refill Family Practice [facility] [place] [address] [place] [address] Bj Mario DO 200 [facility] [place] [address] Gastroesophageal reflux disease without esophagitis Allergies No known active allergiesdocumented as of this encounter (statuses as of 12/31/2021) Medications Medication Sig Dispensed Refills Start Date [...] as of this encounter (statuses as of 12/31/2021) Active Problems Problem Noted Date Chronic kidney disease, stage 3b 021 Overview: Per CKD protocol 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 09/29/2020 Overview: Per CKD protocol History of deep vein thrombosis (DVT) of lower extremity 09/08/2016 Status post insertion of drug eluting co ronary artery stent 04/07/2015 Overview: 2009, DUS placed in the mid RCA at [facility] Asymptomatic bilateral carotid artery st enosis 06/10/2014 Raynaud phenomenon 06/13/2011 Knee joint replacement status 01/13/2011 Overview: 2014, right Dr Ricardo [facility] 2011: left Dr Priya Ricardo [facility] Dyslipidemia, goal LDL below 70 09/21/19 11 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 neurogenic claudication 02/17/2010 Vitamin D deficiency 10/13/2009 Chronic ischemic heart disease 0 S/P angioplasty with stent 06/30/2009 Overview: 07/01/2009 DUS in the RCA at [facility] Non-toxic multinodular goiter 04/21/2009 Overview: seen [...] as of this encounter (statuses as of 12/31/2021) Resolved Problems Problem Noted Date Resolved Date [...] as of this encounter (statuses as of 12/31/2021) Immunizations Name Administration Dates Next Due COVID-19 [...] dose of [facility]otidine [id number] due to renal function. No answer or or My pt portal. Set remind me to try to call pt back on Monday. Thank you, Amelie Spence, PharmD Clinical Pharmacist Telepharmacy [phone] 12/31/2021, 4:58 PM * Telephone Encounter - Jermaine Gooden DO - 12/31/2021 4:35 PM EDT Signed Prescriptions: Disp Refills Famotidine 10 MG Oral Tablet (Pepcid) 90 Tab*1 Sig: Take by mouth 1 Tablet in the morning. Authorizing Provider: JERMAINE GOODEN * Telephone Encounter - Amelie Spence [facility] - 12/31/2021 1:25 PM EDT Pending Prescriptions: Disp Refills Famotidine 10 MG Oral Tablet (Pepcid) 90 Tab*1 Sig: Take by mouth 1 Tablet in the morning. * Telephone Encounter - Amelie Spence [facility] - 12/31/2021 1:21 PM EDT Serum creatinine: [...] Thank you, Amelie Spence, PharmD Clinical Pharmacist [facility] [phone] 12/31/2021, 1:24 PM documented in this encounter Plan of Treatment Upcoming Encounters Date Type Specialty Care Team Description 01/17/2022 Nurse Only Ancillary Nurse Pauline [facility] [address] [place] [address] 05/09/2022 Office Visit Family Medicine Bj Mario DO [address] [place] [address] Health Maintenance Due Date Last Done Comments DXA Scan 10/30/2020 10/30/2013, 10/20, 08/24/2009, Additional history exists COVID-19 Vaccine (3 - Booster for Moderna series) 12/30/2020 07/30/2020, 07/02/2020 Depression Screening, Annual for Pts 12 and Over 08/28/2021 08/28/2020 Influenza Vaccine (FLU shot) (#1) 2022 06/05/2020, 04/08/2020, 03/20/2019, Additional history exists CKD HGB USE SMARTSET 84023 10/19/202210/19, 10/30/2020, 04/06/2020, Additional history exists CKD PHOS USE SMARTSET 14240 10/19/202209/21, 11/18/2019, 07/15/2019, Additional history exists DTaP,Tdap,and [...] Documents on File Type Date Recorded Patient Document Control Manager Expl anation Advanced Directive service a [...] 08/13/2009 12:00 AM LIVING WILL Power of Belt Buckle Maker 08/13/2009 12:00 AM DOMONIQUE R OF MEAT COOLER DURABLE HEALTH POA AND HEALTH CARE TREATMENT INSTR Power of Belt Buckle Maker 08/13/2009 12:00 AM DOMONIQUE R OF MEAT COOLER DURABLE HEALTH CARE POA Care Teams Clinical Services Consultant Relationship Specialty Start Date End Date Bj Mario, DO [address] [place] [address] PCP - General Family Medicine 11/28/16 documented as of this encounter
--- OUTSIDE RECORDS SUMMARY | 2023-01-22 22:51 | External Medical Summary | Summary of Care ---
Author Name Unknown Organization [place] [address] Care Team Providers Care Customer Advocacy Manager Name Role Phone Bj Mario DO Primary Care Provider [phone] Reason for Visit * Reason Comments eRx-Medication Refill Encounter Details Date Type Department Care Team Description 12/31/2021 Refill Family Practice [facility] [place] [facility] [place] [address] Bj Mario DO 200 [facility] [place] [address] Gastroesophageal reflux disease without esophagitis Allergies No [...] DUS placed in the mid RCA at [facility] Asymptomatic bilateral carotid artery st enosis 06/10/2014 Raynaud phenomenon 06/13/2011 Knee joint replacement status 01/13/2011 Overview: 2014, right Dr Ricardo [facility] 2011: left Dr Priya Ricardo [facility] Dyslipidemia, goal LDL below 70 09/21/19 11 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 neurogenic claudication 02/17/2010 Vitamin D deficiency 10/13/2009 Chronic ischemic heart disease 0 S/P angioplasty with stent 06/30/2009 Overview: 07/01/2009 DUS in the RCA at [facility] Non-toxic multinodular goiter 04/21/2009 Overview: [...] encounter Miscellaneous Notes * Telephone Encounter - Jermaine Gooden DO - 12/31/2021 4:35 PM EDT Signed Prescriptions: Disp Refills Famotidine 10 MG Oral Tablet (Pepcid) 90 Tab*1 Sig: Take by mouth 1 Tablet in the morning. Authorizing Provider: JERMAINE GOODEN * Telephone Encounter - Amelie Spence [facility] - 12/31/2021 1:25 PM EDT Pending Prescriptions: Disp Refills Famotidine 10 MG Oral Tablet (Pepcid) 90 Tab*1 Sig: Take by mouth 1 Tablet in the morning. * Telephone Encounter - Amelie Spence RP - 12/31/2021 1:21 PM EDT Serum creatinine: [...] you, Amelie Spence, PharmD Clinical Pharmacist Telepharmacy [phone] 12/31/2021, 1:24 PM documented in this encounter Plan of Treatment Upcoming Encounters Date Type Specialty Care Team Description 01/17/2022 Nurse Only Ancillary Pauline Nurse [facility] [address] [facility] [place] [address] 05/09/2022 Office Visit Family Medicine Bj Mario DO [address] [facility] [place] [address] Health Maintenance Due Date Last Done Comments DXA Scan 10/30/2020 10/30/2013, 10/20, 08/24/2009, Additional history exists COVID-19 Vaccine (3 - Booster for Moderna series) 12/30/2020 07/30/2020, 07/02/2020 Depression Screening, Annual for Pts 12 and Over 08/28/2021 08/28/2020 Influenza Vaccine (FLU shot) (#1) 2022 06/05/2020, 04/08/2020, 03/20/2019, Additional history exists CKD HGB USE SMARTSET 76610 10/19/202210/19, 10/30/2020, 04/06/2020, Additional history exists CKD PHOS USE SMARTSET 15568 10/19/2022 0505/2021, 11/18/2019, 07/15/2019, Additional history exists [...] on File Type Date Recorded 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
--- OUTSIDE RECORDS SUMMARY | 2023-01-22 22:51 | External Medical Summary | Summary of Care ---
Author Name Unknown Organization [place] [address] Care Team Providers Care Truck Body Builder Apprentice Name Role Phone Bj Mario DO Primary Care Provider [phone]- [phone] Reason for Visit * Reason Onset Date Comments Advice 02/04/2022 Encounter Details Date Type Department Care Team Description 02/04/2022 Telephone Family Practice [facility] [place] [address] [place] [address] Bj Mario DO [address] [place] [address] Advice Allergies No known active allergiesdocumented as of [...] Pain, Severe. 30 Tablet 0 01/17/2022 Active documented as of this encounter (statuses [...] DUS placed in the mid RCA at [facility] Asymptomatic bilateral carotid artery st enosis 06/10/2014 Raynaud phenomenon 06/13/2011 Knee joint replacement status 01/13/2011 Overview: 2014, right Dr Ricardo [facility] 2011: left Dr Priya Ricardo [facility] Dyslipidemia, goal LDL below 70 09/21/19 11 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 neurogenic claudication 02/17/2010 Vitamin D deficiency 10/13/2009 Chronic ischemic heart disease 0 S/P angioplasty with stent 06/30/2009 Overview: 07/01/2009 DUS in the RCA at [facility] Non-toxic multinodular goiter 04/21/2009 Overview: seen [...] * Telephone Encounter - ALESHA Kearney - 02/07/2022 10:19 AM EDT appt is scheduled and pt is aware Scheduled for tomorrow at * Telephone Encounter - Yanely Coe LPN - 02/06/2022 8:43 AM EDT Please assist with scheduling * Telephone Encounter - ALESHA Singh - 02/04/2022 3:30 PM EDT No appointments available. Patient declined appointments?: no Is this appointment ACUTE (Yes/No)? acute If YES, were surrounding clinics offered to patient (Yes/No)? Explain Was patient offered appointments with other available providers (Yes/No)? yes If No, explain See Call Details? (Yes or No): yes documented in this encounter Plan of Treatment Upcoming Encounters Date Type Specialty Care Team Description 02/08/2022 Office Visit Family Medicine Bj Mario, DO [address] [place] [address] 02/16/2022 Hospital Encounter Surgery Paul Berg, DO [address] [place] [address] 02/16/2022 Surgery Surgery Paul Berg, DO [address] [place] [address] INJECTION SPINE LUMBAR OR SACRAL 04/27/2022 Office Visit Cardiology Yvon Harris PA-C [address] [place] [address] 05/09/2022 Office Visit Family Medicine Bj Mario, DO [address] [place] [address] 01/18/2023 Nurse Only Ancillary [place], Nurse Annual Wellness Scenery 200 [facility] [place] [address] Scheduled Procedures Name Priority Associated Diagnoses Date/Ti me INJECTION SPINE LUMBAR OR SACRAL Lumbar radiculopathy 02/16/2022 1:00 PM EDT Health Maintenance Due Date Last Done Comments DXA Scan 10/30/2020 10/30/2013, 10/20, 08/24/2009, Additional history exists COVID-19 Vaccine (4 - Booster for Moderna series) 09/05/2021 05/07/2021, 07/30/2020, 07/02/2020 Influenza Vaccine (FLU shot) (#1) 2022 06/05/2020, 04/08/2020, 03/20/2019, Additional history exists CKD HGB USE SMARTSET 96985 10/19/202210/19, 10/30/2020, 04/06/2020, Additional history exists CKD PHOS USE SMARTSET 59440 10/19/2022 0505/2021, 11/18/2019, 07/15/2019, Additional history exists [...] Documents on File Type Date Recorded Patient Machine Splitter Expl anation Advanced Directive service a mike [...] 08/13/2009 12:00 AM LIVING WILL Power of Spanish Medical Interpreter 08/13/2009 12:00 AM DOMONIQUE Madsen OF STAFF RADIATION THERAPIST DURABLE HEALTH POA AND HEALTH CARE TREATMENT INSTR Power of Spanish Medical Interpreter 08/13/2009 12:00 AM DOMONIQUE Madsen OF STAFF RADIATION THERAPIST DURABLE HEALTH CARE POA Care Teams Truck Body Builder Apprentice Relationship Specialty Start Date End Date Bj Mario, DO [address] [place] [address] PCP - General Family Medicine 11/28/16 documented as of this encounter
--- OUTSIDE RECORDS SUMMARY | 2023-01-22 22:51 | External Medical Summary | Summary of Care ---
Author Name Unknown Organization [place] [address] Care Team Providers Care Photo Booth Operator Name Role Phone Bj Mario DO Primary Care Provider [phone] Reason for Visit * Reason Comments Back Pain * Evaluate & Treat - Unlimited Visits (Within 10 days (routine)) - Pending Review Specialty Diagnoses / Procedures Referred By Love gamboa Referred To Contact Pain Management / Pain Medicine Diagnoses 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 neurogenic claudication Low back pain Bj Mario DO [address] [place] [address] Referral ID Status Reason Start Date Expiration Date Visits Requested Visits Authorized [id number] Pending Review Specialty Services Required 01/17/[phone] Encounter Details Date Type Department Care Team Description 01/28/2022 Office Visit Interventional Pain Center, [facility] [address] [facility] [place] [address] Jessi Velásquez PA-C [address] [place] [address] [place] [address] Spinal stenosis of lumbar region with neurogenic claudication*; Lumbar radicular pain Allergies No known active allergiesdocumented as of this encounter (statuses as of 01/28/2022) Medications Medication Sig Dispensed Refills Start Date [...] as of this encounter (statuses as of 01/28/2022) Active Problems Problem Noted Date Chronic kidney disease, stage 3b 021 Overview: Per CKD protocol 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 09/29/2020 Overview: Per CKD protocol History of deep vein thrombosis (DVT) of lower extremity 09/08/2016 Status post insertion of drug eluting co ronary artery stent 04/07/2015 Overview: 2009, DUS placed in the mid RCA at [facility] Asymptomatic bilateral carotid artery st enosis 06/10/2014 Raynaud phenomenon 06/13/2011 Knee joint replacement status 01/13/2011 Overview: 2014, right Dr Ricardo [facility] 2011: left Dr Priya Ricardo [facility] Dyslipidemia, goal LDL below 70 09/21/19 11 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 neurogenic claudication 02/17/2010 Vitamin D deficiency 10/13/2009 Chronic ischemic heart disease 0 S/P angioplasty with stent 06/30/2009 Overview: 07/01/2009 DUS in the RCA at [facility] Non-toxic multinodular goiter 04/21/2009 [...] as of this encounter (statuses as of 01/28/2022) Resolved Problems Problem Noted Date Resolved Date [...] as of this encounter (statuses as of 01/28/2022) Immunizations Name Administration Dates Next Due COVID-19 [...] as of this encounter Progress Notes * Jessi Velásquez PA-C - 01/28/2022 1:32 PM EDT Name: Eugenia Hu Date: 01/28/2022 HPI: Eugenia Hu is a 86 year old female known to the Pain Management clinic presents for follow up due to progressive low back pain that radiates to R buttock, posterior thigh and calf. Last evaluated August 2020 at which time caudal JACKIE was providing significant benefit. Worsening low back and LE pain x's three months without injury. Has followed with PCP for such complaint. [place] [facility] [place] mild [place]. L spine MRI updated 10/31/21 revealed severe central stenosis L4/5 with moderate to severe B foraminal narrowing, moderate central and foraminal narrowing bilaterally L5/S1. Locates pain bilateral low back and buttock that radiates to R posterior thigh and calf. Rates pain8/10 and is constant in nature. Associated weakness R LE. Denies paresthesia. Denies L LE radicularpain. Denies bowel/bladder dysfunction. Aggravated by standing or walking for prolonged periods. Completely alleviated with rest/sitting. Using tylenol, voltaren gel, lidocaine patch, tramadol for pain relief. Pain is affecting ADL. Requesting repeat injection although does have concern for pain during procedure - she has some memory concerns, inially did not recall previous procedures. Historically obtained significant improvement from intermittent injections. Presents with daughter. History: Past Medical History: Diagnosis Date Chronic kidney disease, stage 3b (HCC) 11/03/2020 Per CKD protocol Dyslipidemia, goal LDL below 100 Dyslipidemia, goal to be determined Hip joint replacement status 2000 right 2000, left 1992 HTN, goal below 140/90 HTN, goal below 140/90 05/25/2006 Knee joint replacement status 01/13/[address] Priya Ricardo [facility] Knee joint replacement status 12/15/2013 right [facility] Macular degeneration Ugo Simon MD Menopause 1974 Need for prophylactic hormone replacement therapy (postmenopausal) 1974 Non-toxic multinodular goiter 04/2009 seen on US, repeat -10/2009 Other screening mammogram 10/24/03 Birad Code 2 Other specified glaucoma both eyes, Paul Simon MD, drops used, timolol S/P angioplasty with stent 06/30/09 [facility] Status post insertion of drug eluting coronary artery stent 04/07/20152009, DUS placed in the mid RCA at [facility] Vitamin D deficiency 10/13/2009 Past Surgical History: Procedure Laterality Date ARTHROPLASTY KNEE TOTAL Left 01/13/2011 Left, Dr Priya Ricardo [facility] ARTHROPLASTY KNEE TOTAL Right 12/16/13 Right, Dr Priya Ricardo [facility] CARDIAC CATH SCANNED RESULT 06/30/2009 DUS placed in right coronary, [facility] CARPAL TUNNEL SURGERY Bilateral 2015 bilateral COLONOSCOPY 03/22/2006 normal repeat in 2015 COLONOSCOPY, DIAGNOSTIC (RECTUM) 09/01/2016 diverticulosis/COLONOSCOPY FLEXIBLE PROXIMAL DIAGNOSTIC performed by Kaylie Ford MD at [facility] COLONOSCOPY, DIAGNOSTIC (RECTUM) 10/09/2018 diverticulosis/[facility] COLONOSCOPY, GI REFERRAL OP 03/22/2005 diverticulosis, repeat in 10 years for surveillance reasons COLORECTAL CANCER SCREEN;W/FLE 1999 normal, Dr Estrella DENTAL SURGERY PROCEDURE NEC 1970 Dental Surgery Procedure tumor benign palate DEXA SCAN/BONE MINERAL AXIAL 07/2002 normal, repeat 2007 DEXA SCAN/BONE MINERAL AXIAL 07/20/2006 normal repeat in 6-8 years EGD, FLEXIBLE, DIAGNOSTIC 01/30/2019 acid reflux, Schatzki ring, hiatal hernia / [facility] EXERCISE ECHO 09/02/2002 normal, Dr Genao INJECT DX/THER SUBSTANCE INTERLAMINAR LUMBAR/SACRAL W IMAGE GUIDE 01/18/2018 INJECTION SPINE LUMBAR OR SACRAL performed by Paul Azam Cousins, DO at [facility] INJECT DX/THER SUBSTANCE INTERLAMINAR LUMBAR/SACRAL W IMAGE GUIDE 02/12/2018 INJECTION SPINE LUMBAR OR SACRAL performed by Project [employer] Cousins, DO at [facility] INJECT DX/THER SUBSTANCE INTERLAMINAR LUMBAR/SACRAL W IMAGE GUIDE 12/27/2018 INJECTION SPINE LUMBAR OR SACRAL performed by [employer] Cousins, DO at [facility] INJECT DX/THER SUBSTANCE INTERLAMINAR LUMBAR/SACRAL W IMAGE GUIDE 02/21/2019 INJECTION SPINE LUMBAR OR SACRAL performed by [employer] Cousins, DO at [facility] INJECT DX/THER [...] one ovary left in, Dr Chakraborty in [facility] REMOVE CATARACT, INSERT LENS PROSTH Right 01/05/[address] Messi Simon REMOVE CATARACT, INSERT LENS PROSTH Left 01/28/[address] Messi Simon STENT, COATED/COVERED, WITH DELIVERY SYSTEM 06/30/2009 [employer] [facility] Eluding Stent [facility] TOTAL HIP REPLACEMENT & PROSTHESIS 1992 left, Dr Ricardo TOTAL HIP REPLACEMENT & PROSTHESIS 10/2000 right , Dr Ricardo at [facility] Current Outpatient Medications Medication Sig Dispense Refill ASPIRIN 81 MG PO CHEW One pill by mouth once a day with food 100 5 VITAMIN D 1000 UNIT PO CAPS 1 capsule daily 30 Cap 11 acetaminophen (TYLENOL EXTRA STRENGTH) 500 MG Tablet Take 500 mg by mouth every 6 hours as needed for Pain. cyclobenzaprine (FLEXERIL) 5 MG Tablet Take 1 Tab by mouth 2 times a day as needed for Muscle spasms. 60 Tab 5 travoprost, MAYA Free, (TRAVATAN Z) 0.004 [...] needed for Pain, Severe. 30 Tablet 0 nitroglycerin (NITROSTAT) 0.4 MG SUBL 1 every 5 min as needed with chest pain up to 3 doses in 15 minutes 25 Tab 11 Diclofenac Sodium (VOLTAREN) 1 % gel Place 4 g topically on the skin 4 times a day. To affectedarea as directed. 100 g 5 Meclizine HCl 12.5 MG Oral Tablet (ANTIVERT) Take 1 Tab by mouth 3 times a day as needed for Dizziness. 30 Tab 0 No current facility-administered medications for this visit. Review of patient's allergies indicates: No Known Allergies ROS: CONSTITUTIONAL: Denies anorexia, weight loss, fever, night sweats. RESPIRATORY: Denies shortness of breath, wheezing, productive cough. CARDIOVASCULAR: Denies chest pains, irregular heartbeat. HEME: Denies easy bruising and anticoagulation use. ROS EXAM: Remainder of ROS negative as discussed above in the HPI. PHYSICAL EXAM: There were no vitals taken for this visit. GENERAL: WD/WN female who is awake and alert. Does not appear to be in acute distress. MENTAL STATUS: Oriented x 3. Pleasant and cooperative with normal affect. LUMBAR SPINE: No gross abnormalities. Skin is intact. No lesions visualized. Midline nontender. Mild R paravertebral musculature tenderness. B sacroiliac joint nontender. Mildly limited active ROM with flexion and extension of the lumbar spine. Increased pain with full extension. Lumbar facet loading: positive bilaterally. Straight leg raise: positive R, negative L. FLORENTINO: negative bilaterally. STRENGTH: 5/5 in all major motor groups lower extremities bilaterally. SENSATION: Not formally tested. No gross sensory deficits lower extremities bilaterally. GAIT/COORDINATION: Gait is intact. Ambulates without assistance. ASSESSMENT: Severe lumbar spinal stenosis with neurogenic claudication Right lumbar radicular pain RECOMMENDATION: Progressive low back pain with R [...] JACKIE. Follow up four weeks after procedure. I spent a total of 20-29 minutes (exact time 26 mins) on the date of service in preparation, delivery, and documentation of the care provided to Eugenia Hu excluding any time spent in the performance of separately billed services. Jessi Velásquez PA-C 01/28/2022 documented in this encounter Nursing Notes * Lorri Gotti LPN - 01/28/2022 1:25 PM EDT Patient reports low back and right lower ext pain No relief with PT in -uoc MRI at [facility] with walking documented in this encounter Plan of Treatment Upcoming Encounters Date Type Specialty Care Team Description 02/16/2022 Hospital Encounter Surgery Paul Berg DO [address] [place] [address] 02/16/2022 Surgery Surgery Paul Berg DO [address] [place] [address] INJECTION SPINE LUMBAR OR SACRAL 04/27/2022 Office Visit Cardiology Yvon Harris PA-C [address] [place] [address] 05/09/2022 Office Visit Family Medicine Bj Mario, DO [address] [place] [address] 01/18/2023 Nurse Only [place], Nurse Annual [facility]ness Scenery [address] [place] [address] Scheduled Orders Name Type Priority Associated Diagnoses Orde r Schedule INJECT DX/THER SUBSTANCE INTERLAMINAR LUMBAR/SACRAL W IMAGE GUIDE Procedures Routine Spinal stenosis of lumbar region with neurogenic claudication Lumbar radicular pain Ordered: 01/28/2022 Scheduled Procedures Name Priority Associated Diagnoses Date/Ti me INJECTION SPINE LUMBAR OR SACRAL Lumbar radiculopathy 02/16/2022 1:00 PM EDT Health Maintenance Due Date Last Done Comments DXA Scan 10/30/2020 10/30/2013, 10/20, 08/24/2009, Additional history exists COVID-19 Vaccine (4 - Booster for Moderna series) 09/05/2021 05/07/2021, 07/30/2020, 07/02/2020 Influenza Vaccine (FLU shot) (#1) 2022 06/05/2020, 04/08/2020, 03/20/2019, Additional history exists CKD HGB USE SMARTSET 48542 10/19/202210/19, 10/30/2020, 04/06/2020, Additional history exists CKD PHOS USE SMARTSET 16094 10/19/2022/05/2021, 11/18/2019, 07/15/2019, Additional history exists Alb [...] Spinal stenosis, lumbar region, with neurogenic claudication Lumbar radicular pain Thoracic or lumbosacral neuritis or radiculitis, unspecified Lumbar radiculopathy Thoracic or lumbosacral neuritis or radiculitis, unspecified documented in this encounter Advance Directives Documents on File Type Date Recorded Patient Signal Integrity Engineer Expl anation Advanced Directive service a mike [...] 08/13/2009 12:00 AM LIVING WILL Power of Mine Engineer 08/13/2009 12:00 AM DOMONIQUE R OF LINOLEUM TILE FLOOR LAYER DURABLE HEALTH POA AND HEALTH CARE TREATMENT INSTR Power of Mine Engineer 08/13/2009 12:00 AM DOMONIQUE R OF LINOLEUM TILE FLOOR LAYER DURABLE HEALTH CARE POA Care Teams Photo Booth Operator Relationship Specialty Start Date End Date Bj Mario, DO [address] [place] [address] PCP - General Family Medicine 11/28/16 documented as of this encounter
--- OUTSIDE RECORDS SUMMARY | 2023-01-22 22:51 | External Medical Summary | Summary of Care ---
Author Name Unknown Organization [facility] Address [facility] [place] [address] Care Team Providers Care Heat Treat Inspector Name Role Phone Bj Mario DO Primary Care Provider [phone] Encounter Details Date Type Department Care Team Description 11/15/2021 Scan Encounter Family Practice [facility] [place] [address] [place] [address] Bj Mario DO [address] [facility] [place] [address] <No scans attached> Allergies No known active allergiesdocumented as of this encounter (statuses as of 11/16/2021) Medications Medication Sig Dispensed Refills Start Date [...] Oral Tablet Extended Release 24 Hour (toPROL XL)Indications:Pet Groomer jose alberto ischemic heart disease Take 0.5 [...] as of this encounter (statuses as of 11/16/2021) Active Problems Problem Noted Date Chronic kidney [...] as of this encounter (statuses as of 11/16/2021) Resolved Problems Problem Noted Date Resolved Date [...] as of this encounter (statuses as of 11/16/2021) Immunizations Name Administration Dates Next Due COVID-19 [...] Pauline Nurse Annual Wellness Scenery [address] [place] [address] 03/04/2022 Office Visit Cardiology Yvon Harris PA-C [address] [facility] [place] [address] 05/09/2022 Office Visit Family Medicine Bj Mario DO [address] [place] [address] Health Maintenance Due Date Last Done Comments Dexa Scan 10/30/2020 10/30/2013, 10/20, 08/24/2009, Additional history exists COVID-19 Vaccine (3 - Booster for Moderna series) 12/30/2020 07/30/2020, 07/02/2020 Depression Screening, Annual for Pts 12 and Over 08/28/2021 08/28/2020 Influenza Vaccine (FLU shot) (Season Ended) 2022 06/05/2020, 04/08/2020, 03/20/2019, Additional history exists CKD GFR USE SMARTSET 15771 04/20/202210/19, 04/19/2021, 10/30/2020, Additional history exists BASIC METABOLIC PANEL (BMP) FOR HTN YEARLY 10/19/2022 10/19/2021, 04/19/2021, 10/30/2020, Additional history exists CKD HGB USE SMARTSET 68694 10/19/202210/19, 10/30/2020, 04/06/2020, Additional history exists CKD PHOS USE SMARTSET 85901 10/19/2022 05/05/2021, 11/18/2019, 07/15/2019, Additional history exists DIABETES SCREEN EVERY 3 YRS-AGE 45 AND ABOVE 10/19/2024 10/19/2021, 04/19/2021, 10/30/2020, Additional history exists DTaP,Tdap,and Td Vaccines (2 [...] Documents on File Type Date Recorded Patient Airline Flight Attendant Expl anation Advanced Directive service a [...] 08/13/2009 12:00 AM LIVING WILL Power of Account Assistant 08/13/2009 12:00 AM DOMONIQUE Madsen OF MAINTENANCE SUPERVISOR DURABLE HEALTH POA AND HEALTH CARE TREATMENT INSTR Power of Account Assistant 08/13/2009 12:00 AM DOMONIQUE Madsen OF MAINTENANCE SUPERVISOR DURABLE HEALTH CARE POA Care Teams Heat Treat Inspector Relationship Specialty Start Date End Date Bj Mario, DO [address] [facility] [place] [address] PCP - General Family Medicine 11/28/16 documented as of this encounter
--- OUTSIDE RECORDS SUMMARY | 2023-01-22 22:51 | External Medical Summary | Summary of Care ---
Author Name Unknown Organization [place] [address] Care Team Providers Care Web Art Director Name Role Phone Nhi Florian DO Primary Care Provider [phone] Reason for Referral * Medication Prior Authorization - Pending Review Specialty Diagnoses / Procedures Referred By Love gamboa Referred To Contact Diagnoses 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 neurogenic claudication Cervicalgia Nhi Florian DO [address] [place] [address] Referral ID Status Reason Start Date Expiration Date V isits Requested Visits Authorized [id number] Pending Review [phone] * Evaluate & Treat - Unlimited Visits (Within 10 days (routine)) - Pending Review Specialty Diagnoses / Procedures Referred By Love gamboa Referred To Contact Pain Management / Pain Medicine Diagnoses 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 neurogenic claudication Low back pain Nhi Florian, DO [address] [place] [address] Referral ID Status Reason Start Date Expiration Date Visits Requested Visits Authorized [id number] Pending Review Specialty Services Required 01/17/2022 999 999 Question Answer Referral Priority Within 10 days (routine) Reason for referral? Interventional Pain Management - (Injection) What is the preferred location to have this test performed? [facility] Comments Patient Name: Eugenia Hu Date of : 1935 Department Phone Number: MRI or CT (if unable to have a MRI) is recommended if any of the following apply: 1. Patient has neck or back pain with radiation to extremities. A previous MRI will be accepted if symptoms unchanged since prior MRI. 2. Spinal surgery since last MRI. If yes, order a MRI with and without contrast. 3. Hx or ongoing cancer treatment. Patient will need spine x-ray (Ap/Lat) for axial neck or back pain if not done previously. Fax No. [facility] [phone] or contact front desk attendant [phone] Fax No. [facility] [phone] or contact front desk attendant [phone] Fax No. [facility] [phone] or contact front desk attendant [phone] Reason for Visit * Reason Onset Date Comments Referral 01/17/2022 Medication Refill 01/17/2022 Encounter Details Date Type Department Care Team Description 01/17/2022 Refill Family Practice [facility] Pauline [place] [address] [facility] [place] [address] Nhi Florian DO [address] [facility] [place] [address] 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 neurogenic claudication*; Low back pain; Cervicalgia Allergies No known active allergiesdocumented as of this encounter (statuses as of 01/18/2022) Medications Medication Sig Dispensed Refills Start Date [...] 05/17/2021 Active Lisinopril 10 MG Oral Tablet (Prinivil)Indicati [...] Pain, Severe. 30 Tablet 0 01/17/2022 Active traMADol HCl 50 MG Oral Tablet (Ultram)Indication s:Cervicalgia,Spin al stenosis of lumbar region without neurogenic claudication Take 1 Tab by mouth daily as needed for Pain, Severe. 30 Tab 0 10/06/2020 01/17/2022 Discontinue d(Refill) documented as of this encounter (statuses as of 01/18/2022) Active Problems Problem Noted Date Chronic kidney disease, stage 3b 021 Overview: Per CKD protocol 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 09/29/2020 Overview: Per CKD protocol History of deep vein thrombosis (DVT) of lower extremity 09/08/2016 Status post insertion of drug eluting co ronary artery stent 04/07/2015 Overview: 2009, DUS placed in the mid RCA at [facility] Asymptomatic bilateral carotid artery st enosis 06/10/2014 Raynaud phenomenon 06/13/2011 Knee joint replacement status 01/13/2011 Overview: 2014, right Dr Ricardo [facility] 2011: left Dr Priya Ricardo [facility] Dyslipidemia, goal LDL below 70 09/21/19 11 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 neurogenic claudication 02/17/2010 Vitamin D deficiency 10/13/2009 Chronic ischemic heart disease 0 S/P angioplasty with stent 06/30/2009 Overview: 07/01/2009 DUS in the RCA at [facility] Non-toxic multinodular goiter 04/21/2009 Overview: [...] as of this encounter (statuses as of 01/18/2022) Resolved Problems Problem Noted Date Resolved Date [...] as of this encounter (statuses as of 01/18/2022) Immunizations Name Administration Dates Next Due COVID-19 [...] * Telephone Encounter - ALESHA Kearney - 01/18/2022 9:06 AM EDT PAIN MEDICINE REFERRAL OP [[id number]] (Order [id number]) 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 neurogenic claudication [M48.061] - Primary Low back pain [M54.50] Denied scheduling please call to schedule appt * Telephone Encounter - Nhi Florian DO - 01/17/2022 4:03 PM EDT Signed Prescriptions: Disp Refills traMADol HCl 50 MG Oral Tablet (Ultram) 30 Tab*0 Sig: Take by mouth 1 Tablet daily as needed for Pain, Severe. Authorizing Provider: NHI FLORIAN * Telephone Encounter - Nhi Florian DO - 01/17/2022 4:03 PM EDT Script sent and referral placed * Telephone Encounter - Mounika Torres RN - 01/17/2022 11:20 AM EDT Patient in for annual wellness visit today. Patient is requesting refill on Tramadol, script pended for review. Patient also asking to see Dr. Berg again for pain management and possible injections to her back. She has had two in the past and they were successful. Patient rated her back pain 8/10 today during [facility]. Referral pended for review. documented in this encounter Plan of Treatment Upcoming Encounters Date Type Specialty Care Team Description 04/27/2022 Office Visit Cardiology Yvon Harris PA-C [address] [facility] [place] [address] 05/09/2022 Office Visit Family Medicine Nhi Florian DO [address] [facility] [place] [address] 01/18/2023 Nurse Only Ancillary Pauline Nurse Annual Wellness Scenery [address] [place] [address] Scheduled Referrals Name Type Priority Associated Diagnoses Orde r Schedule PAIN MEDICINE REFERRAL OP Referral Within 10 days (routine) 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 neurogenic claudication Low back pain Ordered: 01/17/2022 Health Maintenance Due Date Last Done Comments DXA Scan 10/30/2020 10/30/2013, 10/20, 08/24/2009, Additional history exists COVID-19 Vaccine (4 - Booster for Moderna series) 09/05/2021 05/07/2021, 07/30/2020, 07/02/2020 Influenza Vaccine (FLU shot) (#1) 2022 06/05/2020, 04/08/2020, 03/20/2019, Additional history exists CKD HGB USE SMARTSET 62764 10/19/202210/19, 10/30/2020, 04/06/2020, Additional history exists CKD PHOS USE SMARTSET 79268 10/19/2022 05/3 05/2021, 11/18/2019, 07/15/2019, Additional history [...] Spinal stenosis, lumbar region, without neurogenic claudication Low back pain Lumbago Cervicalgia documented in this encounter Advance Directives Documents on File Type Date Recorded Patient Plant Operator Expl anation Advanced Directive service a [...] 08/13/2009 12:00 AM LIVING WILL Power of Boat Crew Deck Hand 08/13/2009 12:00 AM DOMONIQUE R OF TILE MECHANIC HELPER DURABLE HEALTH POA AND HEALTH CARE TREATMENT INSTR Power of Boat Crew Deck Hand 08/13/2009 12:00 AM DOMONIQUE R OF TILE MECHANIC HELPER DURABLE HEALTH CARE POA Care Teams Web Art Director Relationship Specialty Start Date End Date Nhi Florian, DO [address] [place] [address] PCP - General Family Medicine 11/28/16 documented as of this encounter
--- OUTSIDE RECORDS SUMMARY | 2023-01-22 22:51 | External Medical Summary ---
Author Name Unknown Address Unknown Organization K01:[facility] [place] - [address] [place] [address] Laboratory Report Ordering Provider Test Date Status KENNETH HANKINSDANILO 01/17/2022 10:28:51 Final Observation Date Value Abnormality Reference (Units ) Status Albumin, Urine 01/17/2022 10:28:51 <1.20 (mg/dL) Final Creatinine, Urine 01/17/2022 10:28:51 158 (mg/dL) Final Albumin/Creatinine [Mass Ratio] in Urine 01/17/2022 10:28:51 <8 <30 (mg/g Creat) Final Performing Location [facility] [place] - [address] [place] [address]
--- OUTSIDE RECORDS SUMMARY | 2023-01-22 22:51 | External Medical Summary | Summary of Care ---
Author Name Unknown Organization [place] [address] Care Team Providers Care Box Machine Operator Name Role Phone Bj Mario DO Primary Care Provider [phone] Reason for Visit * Reason Comments Follow Up 6 month follow up. S OB with exertion like walking. Denies chest pain, palpitations, dizziness and edema. Encounter Details Date Type Department Care Team Description 11/01/2021 Office Visit Cardiology, [facility] [address] [place] [address] Yvon Harris PA-C [address] [facility] [place] [address] Chronic ischemic heart disease*; S/P angioplasty with stent; 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); Dyslipidemia, goal LDL below 70; HTN, goal below 140/90; Asymptomatic bilateral carotid artery stenosis; PVC (premature ventricular contraction) Allergies No known active allergiesdocumented as of this encounter (statuses as of 11/02/2021) Medications Medication Sig Dispensed Refills Start Date [...] Pain, Severe. 30 Tab 0 10/06/2020 Active Furosemide 20 MG Oral Tablet (Lasix)Indications: HTN, goal below 140/90 Take 1 Tab by mouth daily. 30 Tab 11 10/06/2020 Active Timolol Maleate 0.5 % Ophthalmic [...] Oral Tablet Extended Release 24 Hour (toPROL XL)Indications:Primary Operator jose alberto ischemic heart disease Take 0.5 [...] as of this encounter (statuses as of 11/02/2021) Active Problems Problem Noted Date Chronic kidney [...] as of this encounter (statuses as of 11/02/2021) Resolved Problems Problem Noted Date Resolved Date [...] as of this encounter (statuses as of 11/02/2021) Immunizations Name Administration Dates Next Due COVID-19 [...] Sign Reading Time Taken Comments Blood Pressure 108/62 11/01/2021 3:32 PM EDT Pulse 72 11/01/2021 3:32 PM EDT Temperature 36.8 C (98.2 F) 11/01/2021 3:32 PM ED T Respiratory Rate 16 11/01/2021 3:32 PM EDT Oxygen Saturation - - Inhaled Oxygen Concentration - - Weight 87.3 kg (192 lb 8 oz) 11/01/2021 3:32 PM EDT Height - - Body Mass Index 33.69 10/19/2021 11:51 AM EDT documented in this encounter Progress Notes * Yvon Harris PA-C - 11/01/2021 3:55 PM EDT History of Present Illness: Eugenia Hu is an 86-year-old female who returns today for cardiology follow-up evaluation. Patient returns today feeling relatively well. She does note shortness of breath that, per history today, has been chronic and stable for the last 1 to 2 years. She notes parking in the lower level today, walking up the 2 flights of stairs, having to stop fpc up and catch her breath for brief moment before proceeding to the check-in desk. She notes remaining active,doing all for necessary work without significant limitation. Notes knowing her limitations, taking a break when needed. No resting or nocturnal dyspnea. No overt chest pain. No sublingual nitroglycerin use. No palpitations. No cough or chest congestion, abdominal bloating, or increased peripheral edema. No palpitations. No headaches. No positional dizziness or lightheadedness. No syncope. [...] (HCC) N18.32 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 2000, left 1992 HTN, goal below 140/90 Knee joint replacement status 01/13/[address] Priya Ricardo [facility] Knee joint replacement [...] TOTAL Left 01/13/2011 Left, Dr Priya Ricardo [facility] ARTHROPLASTY KNEE TOTAL Right 12/16/13 Right, Dr Priya Ricardo [facility] CARDIAC CATH SCANNED RESULT 06/30/2009 DUS placed in right coronary, [facility] CARPAL TUNNEL SURGERY Bilateral 2015 bilateral COLONOSCOPY 03/22/2006 normal repeat in 2016 COLONOSCOPY, DIAGNOSTIC (RECTUM) 09/01/2016 diverticulosis/COLONOSCOPY FLEXIBLE PROXIMAL DIAGNOSTIC performed by Kaylie Ford MD at ENDOSCOPY [facility] COLONOSCOPY, DIAGNOSTIC (RECTUM) 10/09/2018 diverticulosis[facility] [...] LUMBAR OR SACRAL performed by Paul Berg, at OR [facility] INJECT DX/THER SUBSTANCE INTERLAMINAR LUMBAR/SACRAL W IMAGE [...] one ovary left in, Dr Chakraborty in [facility] REMOVE CATARACT, INSERT LENS PROSTH Right 01/05/[address] Messi Simon REMOVE CATARACT, INSERT LENS PROSTH Left 01/28/[address] Messi Simon STENT, COATED/COVERED, WITH DELIVERY SYSTEM 06/30/2009 [employer] [facility] Drug Eluding Stent [facility] TOTAL HIP REPLACEMENT & PROSTHESIS 1992 left, Dr Ricardo TOTAL HIP REPLACEMENT & PROSTHESIS 10/2000 right , Dr Ricardo at [facility] Family History Problem Relation Age of [...] file Gets together: Not on file Attends bahai service: Not on file Active member of [...] Self-Exams Not Asked Social History Narrative born [place] in [facility] since 1953 ; 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 Complete Review of Systems: See above. Otherwise negative or noncontributory. Review of patient's allergies indicates: No Known Allergies Outpatient Medications Marked as Taking for the 11/01/21 encounter (Office Visit) with Yvon Harris PA-C Medication Sig Lisinopril 10 MG Oral Tablet (Prinivil) take 1 tablet by mouth once daily Rosuvastatin Calcium 20 MG Oral Tablet (Crestor) take 1 tablet by mouth once daily Metoprolol Succinate ER 25 MG Oral Tablet Extended Release 24 Hour (toPROL XL) Take 0.5 Tabletsby mouth daily. Famotidine 20 MG Oral Tablet (Pepcid) take 1 tablet by mouth twice a day Isosorbide Mononitrate ER 30 MG Oral Tablet Extended Release 24 Hour (Imdur) Take 1 Tab by mouth daily. rOPINIRole HCl 0.25 MG Oral Tablet (Requip) take 1 tablet by mouth at bedtime Timolol Maleate 0.5 % Ophthalmic Solution (Timoptic) instill 1 drop into both eyes every morning Furosemide 20 MG Oral Tablet (Lasix) Take 1 Tab by mouth daily. traMADol HCl 50 MG Oral Tablet (Ultram) Take 1 Tab by mouth daily as needed for Pain, Severe. travoprost, MAYA Free, (TRAVATAN Z) 0.004 % ophthalmic solution instill 1 drop into both eyes every evening Diclofenac Sodium (VOLTAREN) 1 % gel Place 4 g topically on the skin 4 times a day. To affectedarea as directed. cyclobenzaprine (FLEXERIL) 5 MG Tablet [...] a day with food OBJECTIVE/PHYSICAL EXAMINATION: BP 108/62 | Pulse 72 | Temp 36.8 C (98.2 F) | Resp 16 | Wt 87.3 kg (192 lb 8 oz) | BMI 33.69 kg/m | BSA 1.98 m General: NAD. HENT: Normocephalic. Atraumatic. Eyes: [...] study. EKG today reveals sinus rhythm at 74 bpm with occasional premature ventricular complexes, low-voltage QRS, possible old septal infarct. QTc is 408 ms. ASSESSMENT: 1. ASCVD. Stable. 2. Hypertension, well controlled. 3. Hyperlipidemia. LDL cholesterol 72 mg/dL on April 19, 2021 4. Bilateral internal carotid artery disease, without infarction, asymptomatic. Carotid duplex in March 2020 revealed mild right internal carotid artery disease, 50 to 69% left internal carotid artery disease, unchanged dating back to January 2015. 5. Fluid retention, significantly improved following discontinuation of amlodipine 6. Chronic kidney disease. Creatinine 1.6 mg/dL on October 19, 2021. 7. Primary hyperparathyroidism. Followed by [facility] Endocrinology. 8. Degenerative disc disease, spinal stenosis RECOMMENDATIONS/PLAN: Continue current therapies as prescribed. Continue conservative medical management of the patient's CAD. Cardiology follow-up in 4 months time or as needed. ER with emergencies. Yvon Harris PA-C Department of Cardiology This chart was completed in part utilizing [employer] Speech Voice Recognition Software. Grammatical errors, random [...] in this encounter Nursing Notes * Stanley Felix, YESENIA - 11/01/2021 3:32 PM EDT Patient identified by full name and date of Chief Complaint Patient presents with Follow Up 6 month follow up. SOB with exertion like walking. Denies chest pain, palpitations, dizziness and edema. Examination Room: 3 Name: Eugenia Hu Date of : (1935). Reason for Visit: 6 month follow up Interim Hospitalization(s): Denies Problems/Concerns: See chief complaint Chest Pain/SOB: See chief complaint [facility] Discussed: Not applicable My [facility] is a way you can talk to [...] Care Team Description 01/17/2022 Nurse Only [place], Nurse Annual Wellness Scenery [address] [place] [id number] 03/04/2022 Office Visit Cardiology Yvon Harris PA-C [address] [facility] [place] [address] 05/09/2022 Office Visit Family Medicine Bj Mario DO [address] [place] [address] Health Maintenance Due Date Last Done Comments Dexa Scan 10/30/2020 10/30/2013, 10/20, 08/24/2009, Additional history exists COVID-19 Vaccine (3 - Booster for Moderna series) 12/30/2020 07/30/2020, 07/02/2020 Depression Screening, Annual for Pts 12 and Over 08/28/2021 08/28/2020 Influenza Vaccine (FLU shot) (Season Ended) 2022 06/05/2020, 04/08/2020, 03/20/2019, Additional history exists CKD GFR USE SMARTSET 44809 04/20/202210/19, 04/19/2021, 10/30/2020, Additional history exists BASIC METABOLIC PANEL (BMP) FOR HTN YEARLY 10/19/2022 10/19/2021, 04/19/2021, 10/30/2020, Additional history exists CKD HGB USE SMARTSET 55213 10/19/202210/19, 10/30/2020, 04/06/2020, Additional history exists CKD PHOS USE SMARTSET 24153 10/19/2022 05/05/2021, 11/18/2019, 07/15/2019, Additional history exists [...] disease- Primary Chronic ischemic heart disease, unspecified S/P angioplasty with stent Postsurgical percutaneous transluminal coronary angioplasty status 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 I through stage IV, or unspecified Dyslipidemia, goal LDL below 70 Other and unspecified hyperlipidemia HTN, goal below 140/90 Unspecified essential hypertension Asymptomatic bilateral carotid artery stenosis Occlusion and stenosis of multiple and bilateral precerebral arteries without mention of cerebral infarction PVC (premature ventricular contraction) Other premature beats documented in this encounter Advance Directives Documents on File Type Date Recorded 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
--- OUTSIDE RECORDS SUMMARY | 2023-01-22 22:51 | External Medical Summary | Summary of Care ---
Author Name Unknown Organization [facility] Address [facility] [place] [address] Care Team Providers Care Offshore Diver Name Role Phone Bj Mario DO Primary Care Provider [phone] Encounter Details Date Type Department Care Team Description 11/19/2021 Scan Encounter Family Practice [facility] [place] [address] [place] [address] Bj Mario DO [address] [facility] [place] [address] <No scans attached> Allergies No known active allergiesdocumented as of this encounter (statuses as of 11/23/2021) Medications Medication Sig Dispensed Refills Start Date [...] Oral Tablet Extended Release 24 Hour (toPROL XL)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: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 jose alberto ischemic heart disease Take [...] as of this encounter (statuses as of 11/23/2021) Active Problems Problem Noted Date Chronic kidney disease, stage 3b 021 Overview: Per CKD protocol 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 09/29/2020 Overview: Per CKD protocol History of deep vein thrombosis (DVT) of lower extremity 09/08/2016 Status post insertion of drug eluting co ronary artery stent 04/07/2015 Overview: 2009, DUS placed in the mid RCA at [facility] Asymptomatic bilateral carotid artery st enosis 06/10/2014 Raynaud phenomenon 06/13/2011 Knee joint replacement status 01/13/2011 Overview: 2014, right Dr Ricardo [facility] 2011: left Dr Priya Ricardo [facility] Dyslipidemia, goal LDL below 70 09/21/19 11 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 neurogenic claudication 02/17/2010 Vitamin D deficiency 10/13/2009 Chronic ischemic heart disease 0 S/P angioplasty with stent 06/30/2009 Overview: 07/01/2009 DUS in the RCA at [facility] Non-toxic multinodular goiter 04/21/2009 Overview: seen on [...] as of this encounter (statuses as of 11/23/2021) Resolved Problems Problem Noted Date Resolved Date [...] as of this encounter (statuses as of 11/23/2021) Immunizations Name Administration Dates Next Due COVID-19 [...] Pauline Nurse Annual Wellness Scenery [address] [place] [id number] 03/04/2022 Office Visit Cardiology Yvon Harris PA-C [address] [facility] [place] [address] 05/09/2022 Office Visit Family Medicine Bj Mario DO [address] [place] [address] Health Maintenance Due Date Last Done Comments Dexa Scan 10/30/2020 10/30/2013, 10/20, 08/24/2009, Additional history exists COVID-19 Vaccine (3 - Booster for Moderna series) 12/30/2020 07/30/2020, 07/02/2020 Depression Screening, Annual for Pts 12 and Over 08/28/2021 08/28/2020 Influenza Vaccine (FLU shot) (#1) 2022 06/05/2020, 04/08/2020, 03/20/2019, Additional history exists CKD GFR USE SMARTSET 33999 04/20/202210/19, 04/19/2021, 10/30/2020, Additional history exists BASIC METABOLIC PANEL (BMP) FOR HTN YEARLY 10/19/2022 10/19/2021, 04/19/2021, 10/30/2020, Additional history exists CKD HGB USE SMARTSET 94631 10/19/202210/19, 10/30/2020, 04/06/2020, Additional history exists CKD PHOS USE SMARTSET 59668 10/19/2022 05/05/2021, 11/18/2019, 07/15/2019, Additional history exists [...] Documents on File Type Date Recorded 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
--- OUTSIDE RECORDS SUMMARY | 2023-01-22 22:52 | External Medical Summary | Summary of Care ---
Author Name Unknown Organization [place] [address] Care Team Providers Care Drilling Contractor Name Role Phone Bj Mario Primary Care Provider [phone] [phone] Reason for Visit * Reason Comments Acute Pt c/o of dizziness since 07/21 and right feels plugged up Encounter Details Date Type Department Care Team Description 07/23/2021 Office Visit General Internal Medicine [facility] Pauline [place] [address] [facility] [place] [address] Maury Young MD [address] [facility] [place] [address] Dizziness*; Ear fullness, right; 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) Allergies No known active allergiesdocumented as of this encounter (statuses as of 09/30/2021) Medications Medication Sig Dispensed Refills Start Date End Date Status ASPIRIN 81 MG PO CHEW One pill by mouth once a day with food 100 5 08/06/2008 Active VITAMIN D 1000 UNIT PO CAPSIndications:Carmel min D deficiency 1 capsule daily 30 Cap 11 10/13/2009 Active nitroglycerin (NITROSTAT) 0.4 MG SUBLIndications:Transaction Coordinator jose alberto ischemic heart disease 1 every [...] traMADol HCl 50 MG Oral Tablet (Ultram)Indications: Cervicalgia,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 neurogenic claudication Take 1 Tab by mouth daily as needed for Pain, Severe. 30 Tab 0 10/06/2020 Active Furosemide 20 MG Oral Tablet (Lasix)Indications:H TN, goal below 140/90 Take 1 Tab by [...] mouth daily. 100 Tab 3 03/17/2021 Active Lisinopril 10 MG Oral Tablet (Prinivil)Indication s: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),Edema take 1 tablet by mouth once daily 90 Tablet 1 04/05/2021 Active Famotidine 20 MG Oral Tablet (Pepcid)Indications: Gastroesophageal reflux disease without esophagitis take 1 tablet [...] as of this encounter (statuses as of 09/30/2021) Active Problems Problem Noted Date Chronic kidney [...] as of this encounter (statuses as of 09/30/2021) Resolved Problems Problem Noted Date Resolved Date [...] as of this encounter (statuses as of 09/30/2021) Immunizations Name Administration Dates Next Due COVID-19 [...] Sign Reading Time Taken Comments Blood Pressure 120/72 07/23/2021 12:04 PM EST Pulse 78 07/23/2021 12:04 PM EST Temperature 35.7 C (96.2 F) 07/23/2021 12:[address] Respiratory Rate - - Oxygen Saturation 98% 07/23/2021 12:04 PM EST Inhaled Oxygen Concentration - - Weight 86.9 kg (191 lb 8 oz) 07/23/2021 12:04 PM EST Height 157.5 cm (5' 2") 07/23/2021 12:04 PM EST Body Mass Index 35.03 07/23/2021 12:04 PM EST documented in this encounter Progress Notes * Maury Young MD - 07/23/2021 12:28 PM EST Chief Complaint Patient presents with Acute Pt c/o of dizziness since 3/2 and right feels plugged up SUBJECTIVE: Eugenia Hu is a 86 year old female with PMH as below who presents for dizziness. Started 3 days ago. Seems worse when awakens and turns head on pillow. Last minutes. No slurred speech, weakness, cp, sob, cancino, or palpitations. No vomitting. Perhaps mild sinus congestion w/o fevers, chills los s of taste/smell. Right ear feels full. No discharge or pain from her ears. Patient Active Problem List Diagnosis Code Advance [...] every 6 hours as needed for Pain. travoprost, MAYA Free, (TRAVATAN Z) 0.004 % ophthalmic solution instill 1 drop into both eyes every evening 2.5 mL 5 Meclizine HCl 12.5 MG Oral Tablet (ANTIVERT) Take 1 Tab by mouth 3 times a day as needed for Dizziness. 30 Tab 0 traMADol HCl 50 MG Oral Tablet (Ultram) Take 1 Tab by mouth daily as needed for Pain, Severe. 30 Tab 0 Furosemide 20 MG Oral Tablet (Lasix) Take 1 Tab by mouth daily. 30 Tab 11 Timolol Maleate 0.5 % Ophthalmic Solution (Timoptic) instill 1 drop into both eyes every morning rOPINIRole HCl 0.25 MG Oral Tablet (Requip) take 1 tablet by mouth at bedtime 90 Tab 3 Isosorbide Mononitrate ER 30 MG Oral Tablet Extended Release 24 Hour (Imdur) Take 1 Tab by mouth daily. 100 Tab 3 Lisinopril 10 MG Oral Tablet (Prinivil) take 1 tablet by mouth once daily 90 Tablet 1 Famotidine 20 MG Oral Tablet (Pepcid) take 1 tablet by mouth twice a day 180 Tablet 2 Metoprolol Succinate ER 25 MG Oral Tablet Extended Release 24 Hour (toPROL XL) Take 0.5 Tabletsby mouth daily. 45 Tablet 3 Rosuvastatin Calcium 20 MG Oral Tablet (Crestor) take 1 tablet by mouth once daily 90 Tablet 2 cyclobenzaprine (FLEXERIL) 5 MG Tablet Take 1 Tab by mouth 2 times a day as needed for Muscle spasms. 60 Tab 5 Diclofenac Sodium (VOLTAREN) 1 % gel Place 4 g topically on the skin 4 times a day. To affectedarea as directed. 100 g 5 No current facility-administered medications for this visit. Review of patient's allergies indicates: No Known Allergies Health Maintenance Due Topic Date Due Dexa Scan 10/30/2020 CKD PHOS USE SMARTSET 91080 11/17/2020 COVID-19 Vaccine (3 - Booster for Moderna series) 12/30/2020 Influenza Vaccine (FLU shot) (1) 01/20/2021 ROS: CONSTITUTIONAL: No change in weight, No weakness and No fevers, sweats, or chills EYE: No recent significant change in vision, No eye pain, redness, discharge and No diplopia EARS: No ear pain, No drainage and No recent change in hearing PULMONARY: No cough, sputum, or hemoptysis, No wheezing, No rales, No shortness of breath and No recent change in breathing CARDIOVASCULAR: No chest pain, No shortness of breath, No dyspnea on exertion, No orthopnea, No paroxysmal nocturnal dyspnea, No edema, No palpitations and No syncope GASTROINTESTINAL: No abdominal pain, No change in bowel habits, No significant heartburn, No significant change in appetite, No vomiting, diarrhea, or constipation, No hematemesis, No blood in stoolsor black tarry stools, No abdominal bloating or early satiety and No dysphagia EXTREMITIES: No pain, redness or swelling on the joints ALL OTHER SYSTEMS NEGATIVE I reviewed social, PMH, PSH, and family history and updated where needed. 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: Employer: [employer] Tobacco Use Smoking status: Never Smoker Smokeless tobacco: Never Used Vaping Use Vaping Use: Never used Substance and Sexual Activity Alcohol use: Yes Comment: occ-once every couple of months Drug use: No Sexual activity: Yes Partners: Male Other Topics Concern Service No Blood Transfusions No Caffeine Concern Not Asked Occupational Exposure Not Asked Hobby Hazards Not Asked Sleep Concern Not Asked Stress Concern Not Asked Weight Concern Not Asked Special Diet Not Asked Back Care Not Asked Exercise Not Asked Bike Helmet Not Asked Seat Belt Not Asked Self-Exams Not Asked Social History Narrative born [place] in [facility] since 1953 ; 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 2000, left 1992 HTN, goal below 140/90 Knee joint replacement status 01/13/[address] Priya Ricardo [facility] Knee joint replacement status 12/15/2013 right [facility] Macular degeneration Ugo Simon MD Menopause 1974 Need for prophylactic hormone replacement therapy (postmenopausal) 1974 Non-toxic multinodular goiter 04/2009 seen on US, repeat -10/2009 Other screening mammogram 10/24/03 Birad Code 2 Other specified glaucoma both eyes, Pual Simon MD, drops used, timolol S/P angioplasty with stent 06/30/09 [facility] Status post insertion of drug eluting coronary artery stent 04/07/20152009, DUS placed in the mid RCA at [facility] Vitamin D deficiency 10/13/2009 Past Surgical History: Procedure Laterality Date ARTHROPLASTY KNEE TOTAL Left 01/13/2011 Left, Dr Priya Ricardo [facility] ARTHROPLASTY KNEE TOTAL Right 12/16/13 Right, Dr Priya Ricardo [facility] CARDIAC CATH SCANNED RESULT 06/30/2009 DUS placed in right coronary, [facility] CARPAL TUNNEL SURGERY Bilateral 2015 bilateral COLONOSCOPY 03/22/2006 normal repeat in 2016 COLONOSCOPY, DIAGNOSTIC (RECTUM) 09/01/2016 diverticulosis/COLONOSCOPY FLEXIBLE PROXIMAL DIAGNOSTIC performed by Kaylie Ford MD at ENDOSCOPY [facility] COLONOSCOPY, DIAGNOSTIC (RECTUM) 10/09/2018 diverticulosis/[facility] COLONOSCOPY, GI REFERRAL OP 03/22/2005 diverticulosis, repeat in 10 years for surveillance reasons COLORECTAL CANCER SCREEN;W/FLE 1999 normal, Dr Estrella DENTAL SURGERY PROCEDURE NEC 1970 Dental Surgery Procedure tumor benign palate DEXA SCAN/BONE MINERAL AXIAL 07/2002 normal, repeat 2007 DEXA SCAN/BONE MINERAL AXIAL 07/20/2006 normal repeat in 6-8 years EGD, FLEXIBLE, DIAGNOSTIC 01/30/2019 acid reflux, Schatzki ring, hiatal hernia / [facility] EXERCISE ECHO 09/02/2002 normal, Dr Genao INJECT DX/THER SUBSTANCE INTERLAMINAR LUMBAR/SACRAL W IMAGE GUIDE 01/18/2018 INJECTION SPINE LUMBAR OR SACRAL performed by Paul miacosa Cousins, DO at OR [facility] INJECT DX/THER SUBSTANCE INTERLAMINAR LUMBAR/SACRAL W IMAGE GUIDE 02/12/2018 INJECTION SPINE LUMBAR OR SACRAL performed by zLense Cousins, DO at OR [facility] INJECT DX/THER SUBSTANCE INTERLAMINAR LUMBAR/SACRAL W IMAGE GUIDE 12/27/2018 INJECTION SPINE LUMBAR OR SACRAL performed by zLense Cousins, DO at [facility] INJECT DX/THER SUBSTANCE INTERLAMINAR LUMBAR/SACRAL W IMAGE GUIDE 02/21/2019 INJECTION SPINE LUMBAR OR SACRAL performed by zLense Cousins, DO at OR [facility] INJECT DX/THER SUBSTANCE INTERLAMINAR LUMBAR/SACRAL W IMAGE GUIDE 08/06/2020 INJECTION SPINE LUMBAR OR SACRAL performed by Paul Weiss Cousins, DO at OR [facility] MAMMOGRAM - BILATERAL 2.1.02 negative finding. birad code 1 MAMMOGRAM - BILATERAL 09.13. negative findings, yearly mammograms appropriate, birad code 1-diffuse scattered calcifications MAMMOGRAM - BILATERAL 04/10/07 birad code 2 MAMMOGRAM SCREENING-BILATERAL 03/02/05 benign findings, yearly mammograms appropriate, birad code 2 MAMMOGRAM SCREENING-BILATERAL 03.03.06 benign findings, yearly mammograms appropriate, birad code 2 MAMMOGRAM SCREENING-BILATERAL 07/03/08 birad code 2 NUCLEAR SCAN OF HEART MUSCLE 05/31/09, 11/23/10 abnormal PARTIAL HYSTERECTOMY 1973 one ovary left in, Dr Chakraborty in [facility] REMOVE CATARACT, INSERT LENS PROSTH Right 01/05/[address] Messi Simon REMOVE CATARACT, INSERT LENS PROSTH Left 01/28/[address] Messi Simon STENT, COATED/COVERED, WITH DELIVERY SYSTEM 06/30/2009 [employer] [facility] Drug Eluding Stent RCC TOTAL HIP REPLACEMENT & PROSTHESIS 1992 left, Dr Ricardo TOTAL HIP REPLACEMENT & PROSTHESIS 10/2000 right , Dr Ricardo at [facility] Family History Problem Relation Age of Onset Cancer Mother cancer of bone Lung Disorder Father old age with heart failure Heart disease Father Lung Disorder Brother smoker Heart attack Brother age 62 Heart disease Brother angina No Known Problems Son No Known Problems Daughter No Known Problems Daughter OBJECTIVE: PHYSICAL EXAM: BP 120/72 | Pulse 78 | Temp 35.7 C (96.2 F) (Tympanic) | Ht 1.575 m (5' 2") | Wt 86.9 kg (191 lb 8 oz) | SpO2 98% | BMI 35.03 kg/m | BSA 1.95 m General: alert, healthy and no distress Head: Normocephalic, No masses, lesions, or abnormalities Eye Exam: conjunctiva are pink and non-injected, sclera clear KELSEY Ears: External ears normal, TM's Normal, canals with minimal cerumen Heart: regular rate & rhythm, no murmurs, no gallops, PMI non-displaced, S-1 normal and S-2 normal Lungs: normal respiratory rate and rhythm, lungs clear to auscultation Psych: normal affect, no flight of ideas or tangential thought, good eye contact, no pressured speech Neuro stands on own, walks w/o issues, to table w/o aid ASSESSMENT: R42 Dizziness (primary encounter diagnosis) H93.8X1 Ear fullness, right I12.9,N18.32 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 Maury Young MD * Yessy Villa LPN - 07/23/2021 12:02 PM EST Chief Complaint Patient presents with Acute Pt c/o of dizziness since 07/21 and right feels plugged up documented in this encounter Miscellaneous Notes * Addendum Note - Maury Young MD - 09/30/2021 1:24 PM EDT Addended by: MAURY YOUNG on: 09/30/2021 01:24 PM Modules accepted: Level of Service documented in this encounter Plan of Treatment Upcoming Encounters Date Type Specialty Care Team Description 10/19/2021 Office Visit Family Medicine Bj Mario DO [address] [place] [address] 11/01/2021 Office Visit Cardiology Yvon Harris PA-C [address] [facility] [place] [address] Health Maintenance Due Date Last Done Comments Dexa Scan 10/30/2020 10/30/2013, 10/20, 08/24/2009, Additional history exists CKD PHOS USE SMARTSET 44635 11/17/202010/21, 07/15/2019, 08/13/2018, Additional history exists COVID-19 Vaccine (3 - Booster for Moderna series) 12/30/2020 07/30/2020, 07/02/2020 Depression Screening, Annual for Pts 12 and Over 08/28/2021 08/28/2020 CKD GFR USE SMARTSET 73730 10/17/202104/19, 10/30/2020, 10/20/2020, Additional history exists CKD HGB USE SMARTSET 77236 10/30/202110/30, 04/06/2020, 04/04/2019, Additional history exists Influenza Vaccine (FLU shot) (Season Ended) 2022 06/05/2020, 04/08/2020, 03/20/2019, Additional history exists BASIC METABOLIC PANEL (BMP) FOR HTN YEARLY 04/19/2022 04/19/2021, 10/30/2020, 10/20/2020, Additional history exists DIABETES SCREEN EVERY 3 YRS-AGE 45 AND ABOVE 04/19/2024 04/19/2021, 10/30/2020, 10/20/2020, Additional history exists DTaP,Tdap,and Td Vaccines (2 [...] as of this encounter Visit Diagnoses Diagnosis Dizziness- Primary Dizziness and giddiness Ear fullness, right 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) documented in this encounter Advance Directives Documents on File Type Date Recorded Patient Coil Former Expl anation Advanced Directive service a mike [...] 08/13/2009 12:00 AM LIVING WILL Power of Devulcanizer Operator 08/13/2009 12:00 AM DOMONIQUE R OF STUDY MANAGER DURABLE HEALTH POA AND HEALTH CARE TREATMENT INSTR Power of Devulcanizer Operator 08/13/2009 12:00 AM DOMONIQUE Madsen OF STUDY MANAGER DURABLE HEALTH CARE POA Care Teams Drilling Contractor Relationship Specialty Start Date End Date Bj Mario, [address] [place] [address] PCP - General Family Medicine 11/28/16 documented as of this encounter
--- OUTSIDE RECORDS SUMMARY | 2023-01-22 22:52 | External Medical Summary | Summary of Care ---
Author Name Unknown Organization [place] [address] Care Team Providers Care Tail Worker Name Role Phone Bj Mario Primary Care Provider [phone] [phone] Encounter Details Date Type Department Care Team Description 09/30/2021 Result Scan Unspecified Department <No scans attached> Allergies No known active allergiesdocumented as of this encounter (statuses as of 10/20/2021) Medications Medication Sig Dispensed Refills Start Date End Date Status ASPIRIN 81 MG PO CHEW One pill by mouth once a day with food 100 5 08/06/2008 Active VITAMIN D 1000 UNIT PO CAPSIndications:Carmel min D deficiency 1 capsule daily 30 Cap 11 10/13/2009 Active nitroglycerin (NITROSTAT) 0.4 MG SUBLIndications:Senior Product Integrity Engineer jose alberto ischemic heart disease 1 [...] 03/17/2021 Active Famotidine 20 MG Oral Tablet (Pepcid)Indications: [...] as of this encounter (statuses as of 10/20/2021) Active Problems Problem Noted Date Chronic kidney disease, stage 3b 021 Overview: Per CKD protocol 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 09/29/2020 Overview: Per CKD protocol History of deep vein thrombosis (DVT) of lower extremity 09/08/2016 Status post insertion of drug eluting co ronary artery stent 04/07/2015 Overview: 2009, DUS placed in the mid RCA at [facility] Asymptomatic bilateral carotid artery st enosis 06/10/2014 Raynaud phenomenon 06/13/2011 Knee joint replacement status 01/13/2011 Overview: 2014, right Dr Ricardo [facility] 2011: left Dr Priya Ricardo [facility] Dyslipidemia, goal LDL below 70 09/21/19 11 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 neurogenic claudication 02/17/2010 Vitamin D deficiency 10/13/2009 Chronic ischemic heart disease 0 S/P angioplasty with stent 06/30/2009 Overview: 07/01/2009 DUS in the RCA at [facility] Non-toxic multinodular goiter 04/21/2009 Overview: seen [...] as of this encounter (statuses as of 10/20/2021) Resolved Problems Problem Noted Date Resolved Date [...] as of this encounter (statuses as of 10/20/2021) Immunizations Name Administration Dates Next Due COVID-19 [...] Encounters Date Type Specialty Care Team Description 11/01/2021 Office Visit Cardiology Yvon Harris PA-C [address] [place] [address] 01/17/2022 Nurse Only Ancillary Nurse [facility] [address] [place] [address] 05/09/2022 Office Visit Family Medicine Bj Mario, [address] [place] [address] Health Maintenance Due Date Last Done Comments Dexa Scan 10/30/2020 10/30/2013, 10/20, 08/24/2009, Additional history exists COVID-19 Vaccine (3 - Booster for Moderna series) 12/30/2020 07/30/2020, 07/02/2020 Depression Screening, Annual for Pts 12 and Over 08/28/2021 08/28/2020 Influenza Vaccine (FLU shot) (Season Ended) 2022 06/05/2020, 04/08/2020, 03/20/2019, Additional history exists CKD GFR USE SMARTSET 47713 04/20/202210/19, 04/19/2021, 10/30/2020, Additional history exists BASIC METABOLIC PANEL (BMP) FOR HTN YEARLY 10/19/2022 10/19/2021, 04/19/2021, 10/30/2020, Additional history exists CKD HGB USE SMARTSET 46151 10/19/202210/19, 10/30/2020, 04/06/2020, Additional history exists CKD PHOS USE SMARTSET 04664 10/19/2022 05/05/2021, 11/18/2019, 07/15/2019, Additional history exists [...] Name Priority Date/Time Associated Diagnosis Comments RADIOLOGY SCANNED RESULT 09/30/2021 documented in this encounter Results * RADIOLOGY SCANNED RESULT (09/30/2021) Specimen Narrative documented in this encounter Advance Directives Documents on File Type Date Recorded 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
--- OUTSIDE RECORDS SUMMARY | 2023-01-22 22:52 | External Medical Summary ---
Author Name Unknown Address Unknown Organization K09:[facility] [place] [place] [id number] Laboratory Report Ordering Provider Test Date Status ANIVAL HANKINS 10/19/2021 12:35:31 Final Observation Date Value Abnormality Reference (Units ) Status WBC, Total 10/19/2021 12:35:31 6.27 4.00-10.8 0 (K/uL) Final RBC 10/19/2021 12:35:31 3.70 Below low normal 3.8 5-5.15 (M/uL) Final Hemoglobin 10/19/2021 12:35:31 11.4 Below low normal 12 .0-15.3 (g/dL) Final HCT 10/19/2021 12:35:31 34.4 Below low normal 36. 0-45.2 (%) Final MCV 10/19/2021 12:35:31 93.0 81.5-97.5 (fL) Final MCH 10/19/2021 12:35:31 30.8 27.0-34.0 (pg) Final MCHC 10/19/2021 12:35:31 33.1 32.0-36.0 (g/dL) Final RDW 10/19/2021 12:35:31 13.0 11.5-15.5 (%) Final Platelets 10/19/2021 12:35:31 265 140-400 (K /uL) Final MPV 10/19/2021 12:35:31 9.7 6.6-11.1 ( fL) Final Performing Location [facility] [place] [address]
--- OUTSIDE RECORDS SUMMARY | 2023-01-22 22:52 | External Medical Summary | Summary of Care ---
Author Name Unknown Organization [place] [address] Care Team Providers Care Composite Laminator Name Role Phone Nhi Florian DO Primary Care Provider [phone] [phone] Reason for Visit * Reason Comments eRx-Medication Refill Encounter Details Date Type Department Care Team Description 10/06/2021 Refill Family Practice [facility] Pauline [place] [address] [facility] [place] [address] Nhi Florian DO [address] [facility] [place] [address] 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); Edema Allergies No known active allergiesdocumented as of this encounter (statuses as of 10/07/2021) Medications Medication Sig Dispensed Refills Start Date [...] 10/06/2020 Active Furosemide 20 MG Oral Tablet (Lasix)Indications :HTN, goal below 140/90 Take 1 Tab by [...] 03/17/2021 Active Famotidine 20 MG Oral Tablet (Pepcid)Indication s:Gastroesophageal reflux disease without esophagitis take 1 tablet [...] once daily 90 Tablet 2 10/07/2021 Active Lisinopril 10 MG Oral Tablet (Prinivil)Indicati ons: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),Edema take 1 tablet by mouth once daily 90 Tablet 1 04/05/2021 2 Discontinued documented as of this encounter (statuses as of 10/07/2021) Active Problems Problem Noted Date Chronic kidney [...] as of this encounter (statuses as of 10/07/2021) Resolved Problems Problem Noted Date Resolved Date [...] as of this encounter (statuses as of 10/07/2021) Immunizations Name Administration Dates Next Due COVID-19 [...] Notes * Telephone Encounter - Cynthia Madison [facility] - 10/07/2021 1:40 PM EDT Signed Prescriptions: Disp Refills Lisinopril 10 MG Oral Tablet (Prinivil) 90 Tab*2 Sig: take 1 tablet by mouth once dailyAuthorizing Provider: NHI FLORIAN User: CYNTHIA MADISON--- documented in this encounter Plan of Treatment Upcoming Encounters Date Type Specialty Care Team Description 10/19/2021 Office Visit Family Medicine Nhi Florian, DO [address] [place] [address] 11/01/2021 Office Visit Cardiology Yvon Harris PA-C [address] [facility] [place] [address] Health Maintenance Due Date Last Done Comments Dexa Scan 10/30/2020 10/30/2013, 10/20, 08/24/2009, Additional history exists CKD PHOS USE SMARTSET 60122 11/17/202010/21, 07/15/2019, 08/13/2018, Additional history exists COVID-19 Vaccine (3 - Booster for Moderna series) 12/30/2020 07/30/2020, 07/02/2020 Depression Screening, Annual for Pts 12 and Over 08/28/2021 08/28/2020 CKD GFR USE SMARTSET 91161 10/17/202104/19, 10/30/2020, 10/20/2020, Additional history exists CKD HGB USE SMARTSET 96866 10/30/202110/30, 04/06/2020, 04/04/2019, Additional history exists Influenza [...] or unspecified Edema documented in this encounter Advance Directives Documents on File Type Date Recorded Patient Glass Finisher Expl anation Advanced Directive service a mike [...] 08/13/2009 12:00 AM LIVING WILL Power of Survey Rodman 08/13/2009 12:00 AM DOMONIQUE R OF ASSISTANT COUNSEL DURABLE HEALTH POA AND HEALTH CARE TREATMENT INSTR Power of Survey Rodman 08/13/2009 12:00 AM DOMONIQUE R OF ASSISTANT COUNSEL DURABLE HEALTH CARE POA Care Teams Composite Laminator Relationship Specialty Start Date End Date Nhi Florian, DO [address] [place] [address] PCP - General Family Medicine 11/28/16 documented as of this encounter
--- OUTSIDE RECORDS SUMMARY | 2023-01-22 22:52 | External Medical Summary | Summary of Care ---
Author Name Unknown Organization [place] [address] Care Team Providers Care Director Community Organization Name Role Phone Bj Mario DO Primary Care Provider [phone] Reason for Visit * Reason Comments Outpatient Testing Encounter Details Date Type Department Care Team Description 10/19/2021 Laboratory Laboratory [facility] [place] [address] [place] [address] [facility] [address] [place] [address] Chronic kidney disease, unspecified CKD stage Allergies No known active allergiesdocumented as of this encounter (statuses as of 10/19/2021) Medications Medication Sig Dispensed Refills Start Date End Date Status ASPIRIN 81 MG PO CHEW One pill by mouth once a day with food 100 5 08/06/2008 Active VITAMIN D 1000 UNIT PO CAPSIndications:Carmel min D deficiency 1 capsule daily 30 Cap 11 10/13/2009 Active nitroglycerin (NITROSTAT) 0.4 MG SUBLIndications:Psych Specialist jose alberto ischemic heart disease 1 every [...] 05/17/2021 Active Lisinopril 10 MG Oral Tablet (Prinivil)Indication s: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),Edema take 1 tablet by mouth once daily 90 Tablet 2 10/07/2021 Active documented as of this encounter (statuses as of 10/19/2021) Active Problems Problem Noted Date Chronic kidney disease, stage 3b 021 Overview: Per CKD protocol 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 09/29/2020 Overview: Per CKD protocol History of deep vein thrombosis (DVT) of lower extremity 09/08/2016 Status post insertion of drug eluting co ronary artery stent 04/07/2015 Overview: 2009, DUS placed in the mid RCA at [facility] Asymptomatic bilateral carotid artery st enosis 06/10/2014 Raynaud phenomenon 06/13/2011 Knee joint replacement status 01/13/2011 Overview: 2014, right Dr Ricardo [facility] 2011: left Dr Priya Ricardo [facility] Dyslipidemia, goal LDL below 70 09/21/19 11 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 neurogenic claudication 02/17/2010 Vitamin D deficiency 10/13/2009 Chronic ischemic heart disease 0 S/P angioplasty with stent 06/30/2009 Overview: 07/01/2009 DUS in the RCA at [facility] Non-toxic multinodular goiter 04/21/2009 Overview: [...] as of this encounter (statuses as of 10/19/2021) Resolved Problems Problem Noted Date Resolved Date [...] as of this encounter (statuses as of 10/19/2021) Immunizations Name Administration Dates Next Due COVID-19 [...] Office Visit Cardiology Yvon Harris PA-C 132 [facility] [place] [address] 01/17/2022 Nurse Only Ancillary Pauline, Nurse Annual Wellness [facility]en[facility] [address] [place] [address] 05/09/2022 Office Visit Family Medicine Bj Mario DO [address] [place] [address] Pending Results Name Type Priority Associated Diagnoses Date /Time COMPREHENSIVE METABOLIC PANEL Lab Routine Chronic kidney disease, unspecified CKD stage 10/19/2021 12:35 PM EDT PHOSPHORUS Lab Routine Chronic kidney disease, unspecified CKD stage 10/19/2021 12:35 PM EDT Health Maintenance Due Date Last Done Comments Dexa Scan 10/30/2020 10/30/2013, 10/20, 08/24/2009, Additional history exists CKD PHOS USE SMARTSET 93583 11/17/202010/21, 07/15/2019, 08/13/2018, Additional history exists COVID-19 Vaccine (3 - Booster for Moderna series) 12/30/2020 07/30/2020, 07/02/2020 Depression Screening, Annual for Pts 12 and Over 08/28/2021 08/28/2020 CKD GFR USE SMARTSET 08879 10/17/202104/19, 10/30/2020, 10/20/2020, Additional history exists CKD HGB USE SMARTSET 82736 10/30/202110/19, 10/30/2020, 04/06/2020, Additional history exists Influenza Vaccine (FLU shot) [...] Procedure Name Priority Date/Time Associated Diagnosis Comments CBC Routine 10/19/2021 12:35 PM EDT Chronic kidney disease, unspecified CKD stage documented in this encounter Results * (ABNORMAL) CBC (10/19/2021 12:35 PM EDT) WBC 6.27 4.00 - 10.80 K/uL [place] [address] RBC 3.70(L) 3.85 - 5.15 M/uL [place] [address] HGB 11.4(L) 12.0 - 15.3 g/dL [place] [address] HCT 34.4(L) 36.0 - 45.2 % LAB[facility]ATORY [address] MCV 93.0 81.5 - 97.5 fL [address] MCH 30.8 27.0 - 34.0 pg LABORATORY [address] MCHC 33.1 32.0 - 36.0 g/dL [address] RDW 13.0 11.5 - 15.5 % LABORATORY [address] PLT 265 140 - 400 K/uL LABORATORY [address] MPV 9.7 6.6 - 11.1 fL LAB[facility]AT[facility] [address] Specimen Blood - Venous blood specime n (specimen) Performing Organization Address City/State/[facility] Co de Phone Number [place] [address] [place] [address] documented in this encounter Visit Diagnoses Diagnosis Chronic kidney disease, unspecified CKD stage documented in this encounter Advance Directives Documents on File Type Date Recorded Patient Magento Developer Expl anation Advanced Directive service a mike [...] 08/13/2009 12:00 AM LIVING WILL Power of Corrosion Technician 08/13/2009 12:00 AM DOMONIQUE R OF INDUCTION HEATING EQUIPMENT SETTER DURABLE HEALTH POA AND HEALTH CARE TREATMENT INSTR Power of Corrosion Technician 08/13/2009 12:00 AM DOMONIQUE Madsen OF INDUCTION HEATING EQUIPMENT SETTER [facility] POA Care Teams Director Community Organization Relationship Specialty Start Date End Date Bj Mario, DO [facility] [place] [address] PCP - General Family Medicine 11/28/16 documented as of this encounter
--- OUTSIDE RECORDS SUMMARY | 2023-01-22 22:52 | External Medical Summary ---
Author Name Unknown Address Unknown Organization K09:[facility] [place] [address] Laboratory Report Ordering Provider Test Date Status ANIVAL HANKINS 10/19/2021 12:35:31 Final Observation Date Value Abnormality Reference (Units ) Status Phosphate 10/19/2021 12:35:31 4.2 2.5-4.8 (m g/dL) Final Performing Location [facility] [place] [address]
--- OUTSIDE RECORDS SUMMARY | 2023-01-22 22:52 | External Medical Summary | Summary of Care ---
Author Name Unknown Organization [place] [address] Care Team Providers Care Work Order Clerk Name Role Phone Bj Mario DO Primary Care Provider [phone] Encounter Details Date Type Department Care Team Description 10/20/2021 Scan Encounter Family Practice [place] [address] [place] [address] jB Mario DO 200 [facility] [place] [address] <No scans attached> Allergies No known active allergiesdocumented as of this encounter (statuses as of 10/21/2021) Medications Medication Sig Dispensed Refills Start Date End Date Status ASPIRIN 81 MG PO CHEW One pill by mouth once a day with food 100 5 08/06/2008 Active VITAMIN D 1000 UNIT PO CAPSIndications:Carmel min D deficiency 1 capsule daily 30 Cap 11 10/13/2009 Active nitroglycerin (NITROSTAT) 0.4 MG SUBLIndications:Campus Director jose alberto ischemic heart disease 1 every [...] as of this encounter (statuses as of 10/21/2021) Active Problems Problem Noted Date Chronic kidney disease, stage 3b 021 Overview: Per CKD protocol 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 09/29/2020 Overview: Per CKD protocol History of deep vein thrombosis (DVT) of lower extremity 09/08/2016 Status post insertion of drug eluting co ronary artery stent 04/07/2015 Overview: 2009, DUS placed in the mid RCA at [facility] Asymptomatic bilateral carotid artery st enosis 06/10/2014 Raynaud phenomenon 06/13/2011 Knee joint replacement status 01/13/2011 Overview: 2014, right Dr Ricardo [facility] 2011: left Dr Priya Ricardo [facility] Dyslipidemia, goal LDL below 70 09/21/19 11 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 neurogenic claudication 02/17/2010 Vitamin D deficiency 10/13/2009 Chronic ischemic heart disease 0 S/P angioplasty with stent 06/30/2009 Overview: 07/01/2009 DUS in the RCA at [facility] Non-toxic multinodular goiter 04/21/2009 Overview: seen [...] as of this encounter (statuses as of 10/21/2021) Resolved Problems Problem Noted Date Resolved Date [...] as of this encounter (statuses as of 10/21/2021) Immunizations Name Administration Dates Next Due COVID-19 [...] Office Visit Cardiology Yvon Harris PA-C [address] [facility] [place] [address] 01/17/2022 Nurse Only Ancillary Pauline Nurse Annual [facility] [address] [place] [address] 05/09/2022 Office Visit Family Medicine Bj Mario DO [address] [place] [address] Health Maintenance Due Date Last Done Comments Dexa Scan 10/30/2020 10/30/2013, 10/20, 08/24/2009, Additional history exists COVID-19 Vaccine (3 - Booster for Moderna series) 12/30/2020 07/30/2020, 07/02/2020 Depression Screening, Annual for Pts 12 and Over 08/28/2021 08/28/2020 Influenza Vaccine (FLU shot) (Season Ended) 2022 06/05/2020, 04/08/2020, 03/20/2019, Additional history exists CKD GFR USE SMARTSET 21488 04/20/202210/19, 04/19/2021, 10/30/2020, Additional history exists BASIC METABOLIC PANEL (BMP) FOR HTN YEARLY 10/19/2022 10/19/2021, 04/19/2021, 10/30/2020, Additional history exists CKD HGB USE SMARTSET 40171 10/19/202210/19, 10/30/2020, 04/06/2020, Additional history exists CKD PHOS USE SMARTSET 64856 10/19/2022 0505/2021, 11/18/2019, 07/15/2019, Additional history exists DIABETES SCREEN [...] Documents on File Type Date Recorded Patient Drama Critic Expl anation Advanced Directive service a mike [...] 08/13/2009 12:00 AM LIVING WILL Power of Residential Youth Counselor 08/13/2009 12:00 AM DOMONIQUE R OF TRAFFIC ENGINEER DURABLE HEALTH POA AND HEALTH CARE TREATMENT INSTR Power of Residential Youth Counselor 08/13/2009 12:00 AM DOMONIQUE R OF TRAFFIC ENGINEER DURABLE HEALTH CARE POA Care Teams Work Order Clerk Relationship Specialty Start Date End Date Bj Mario, DO [address] [place] [address] PCP - General Family Medicine 11/28/16 documented as of this encounter
--- OUTSIDE RECORDS SUMMARY | 2023-01-22 22:52 | External Medical Summary | Summary of Care ---
Author Name Unknown Organization [place] [address] Care Team Providers Care Instructor Physical Name Role Phone Bj Mario DO Primary Care Provider [phone] Reason for Visit * Reason Onset Date Comments Health Maintenance 10/06/2021 Encounter Details Date Type Department Care Team Description 10/06/2021 Telephone Family Practice [place] [address] [place] [address] Bj Mario DO [address] [place] [address] Health Maintenance Allergies No known active allergiesdocumented as of this encounter (statuses as of 10/11/2021) Medications Medication Sig Dispensed Refills Start Date [...] directed. 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 09/29/2020 Overview: Per CKD protocol History of deep vein thrombosis (DVT) of lower extremity 09/08/2016 Status post insertion of drug eluting co ronary artery stent 04/07/2015 Overview: 2009, DUS placed in the mid RCA at [facility] Asymptomatic bilateral carotid artery st enosis 06/10/2014 Raynaud phenomenon 06/13/2011 Knee joint replacement status 01/13/2011 Overview: 2014, right Dr Ricardo [facility] 2011: left Dr Priya Ricardo [facility] Dyslipidemia, goal LDL below 70 09/21/19 11 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 neurogenic claudication 02/17/2010 Vitamin D deficiency 10/13/2009 Chronic ischemic heart disease 0 S/P angioplasty with stent 06/30/2009 Overview: 07/01/2009 DUS in the RCA at [facility] Non-toxic multinodular goiter 04/21/2009 [...] as of this encounter (statuses as of 10/11/2021) Resolved Problems Problem Noted Date Resolved Date [...] as of this encounter (statuses as of 10/11/2021) Immunizations Name Administration Dates Next Due COVID-19 [...] encounter Miscellaneous Notes * Addendum Note - Alexandre Martinez LPN - 10/11/2021 1:53 PM EDT Addended by: ALEXANDRE MARTINEZ on: 10/11/2021 01:53 PM Modules accepted: Orders, SmartSet * Telephone Encounter - Alexandre Martinez LPN - 10/11/2021 1:53 PM EDT Patient returned call. Scheduled awv Scheduled labs with ov per request Will discuss dexa at ov * Telephone Encounter - Alexandre Martinez LPN - 10/06/2021 11:11 AM EDT Care Gaps Comprehensive Care Outreach Last Office/Telemedicine Visit: 04/19/2021 (in office), Visit date not found (telemedicine) Last Office/Telemedine Visit Annual Wellness: due Next Office Visit: 10/19/2021 Reviewed Health Maintenance below: Health Maintenance Care needs: Frequency: Last completed: Due next: Bone Density 1 Year 10/30/2013 10/30/2020 Phosphorus Monitoring (Kidney Disease) 1 Year 11/18/2019 11/17/2020 Covid-19 Vaccine (#3[3 - Booster for Moderna series) Series 07/30/2020 12/30/2020 Kidney Function Test (Kidney Disease) 6 Months 04/19/2021 10/17/2021 Anemia Monitoring (Kidney Disease) 1 Year 10/30/2020 10/30/2021 Care Gap Outreach Action Taken: Left message documented in this encounter Plan of Treatment Upcoming Encounters Date Type Specialty Care Team Description 10/19/2021 Office Visit Family Medicine Bj Mario, DO [address] [place] [address] 10/19/2021 Laboratory Laboratory [place], Lab Scenery 200 [facility] [place] [address] 11/01/2021 Office Visit Cardiology Yvon Harris PA-C 132 [facility] [place] [address] 01/17/2022 Nurse Only Ancillary Pauline Nurse Annual Wellness [address] [place] [address] Scheduled Orders Name Type Priority Associated Diagnoses Orde r Schedule CBC Lab Routine Chronic kidney disease, unspecified CKD stage Expected: 10/11/2021, Expires: 10/11/2022 COMPREHENSIVE METABOLIC PANEL Lab Routine Chronic kidney disease, unspecified CKD stage Expected: 10/11/2021, Expires: 10/11/2022 PHOSPHORUS Lab Routine Chronic kidney disease, unspecified CKD stage Expected: 10/11/2021, Expires: 10/11/2022 Health Maintenance Due Date Last Done Comments Dexa Scan 10/30/2020 10/30/2013, 10/20, 08/24/2009, Additional history exists CKD PHOS USE SMARTSET 08968 11/17/202010/21, 07/15/2019, 08/13/2018, Additional history exists COVID-19 Vaccine (3 - Booster for Moderna series) 12/30/2020 07/30/2020, 07/02/2020 Depression Screening, Annual for Pts 12 and Over 08/28/2021 08/28/2020 CKD GFR USE SMARTSET 14917 10/17/202104/19, 10/30/2020, 10/20/2020, Additional history exists CKD HGB USE SMARTSET 10982 10/30/202110/30, 04/06/2020, 04/04/2019, Additional history exists Influenza [...] Diagnoses Diagnosis Chronic kidney disease, unspecified CKD stage- Primary documented in this encounter Advance Directives Documents on File Type Date Recorded Patient Immigration Associate Expl anation Advanced Directive service a mike [...] 08/13/2009 12:00 AM LIVING WILL Power of Cook Seafood 08/13/2009 12:00 AM DOMONIQUE R OF COMPLEX DIRECTOR DURABLE HEALTH POA AND HEALTH CARE TREATMENT INSTR Power of Cook Seafood 08/13/2009 12:00 AM DOMONIQUE R OF COMPLEX DIRECTOR DURABLE HEALTH CARE POA Care Teams Instructor Physical Relationship Specialty Start Date End Date Bj Mario, DO [address] [place] [address] PCP - General Family Medicine 11/28/16 documented as of this encounter
--- OUTSIDE RECORDS SUMMARY | 2023-01-22 22:52 | External Medical Summary | Summary of Care ---
Author Name Unknown Organization [place] [address] Care Team Providers Care Meter Readers Supervisor Name Role Phone Bj Mario DO Primary Care Provider [phone] Reason for Visit * Reason Onset Date Comments Health Maintenance 10/06/2021 Encounter Details Date Type Department Care Team Description 10/06/2021 Telephone Family Practice [place] [address] [place] [address] Bj Mario DO [address] [place] [address] Health Maintenance Allergies No known active allergiesdocumented as of this encounter (statuses as of 10/06/2021) Medications Medication Sig Dispensed Refills Start Date End Date Status ASPIRIN 81 MG PO CHEW One pill by mouth once a day with food 100 5 08/06/2008 Active VITAMIN D 1000 UNIT PO CAPSIndications:Carmel min D deficiency 1 capsule daily 30 Cap 11 10/13/2009 Active nitroglycerin (NITROSTAT) 0.4 MG SUBLIndications:Supervisor Engine Repair jose alberto ischemic heart disease 1 every [...] as of this encounter (statuses as of 10/06/2021) Active Problems Problem Noted Date Chronic kidney [...] as of this encounter (statuses as of 10/06/2021) Resolved Problems Problem Noted Date Resolved Date [...] as of this encounter (statuses as of 10/06/2021) Immunizations Name Administration Dates Next Due COVID-19 [...] encounter Miscellaneous Notes * Telephone Encounter - Martine Doherty LPN - 10/06/2021 11:11 AM EDT Care [...] Visit Family Medicine Bj Mario, DO 200 [facility] [place] [address] 11/01/2021 Office Visit Cardiology Yvon Harris PA-C [address] [facility] [place] [address] Health Maintenance Due Date Last Done Comments Dexa Scan 10/30/2020 10/30/2013, 10/20, 08/24/2009, Additional history exists CKD PHOS USE SMARTSET 51578 11/17/202010/21, 07/15/2019, 08/13/2018, Additional history exists COVID-19 Vaccine (3 - Booster for Moderna series) 12/30/2020 07/30/2020, 07/02/2020 Depression Screening, Annual for Pts 12 and Over 08/28/2021 08/28/2020 CKD GFR USE SMARTSET 60991 10/17/202104/19, 10/30/2020, 10/20/2020, Additional history exists CKD HGB USE SMARTSET 73159 10/30/202110/30, 04/06/2020, 04/04/2019, Additional history exists Influenza [...] Documents on File Type Date Recorded Patient Doorperson Or Luggage Porter Expl anation Advanced Directive service a mike [...] 08/13/2009 12:00 AM LIVING WILL Power of Machine Shop Specialist 08/13/2009 12:00 AM DOMONIQUE R OF TICKET BROKER DURABLE HEALTH POA AND HEALTH CARE TREATMENT INSTR Power of Machine Shop Specialist 08/13/2009 12:00 AM DOMONIQUE R OF TICKET BROKER DURABLE HEALTH CARE POA Care Teams Meter Readers Supervisor Relationship Specialty Start Date End Date Bj Mario, DO [address] [place] [address] PCP - General Family Medicine 11/28/16 documented as of this encounter
--- OUTSIDE RECORDS SUMMARY | 2023-01-22 22:52 | External Medical Summary ---
Author Name Unknown Address Unknown Organization K09:[facility] [place] [address] Laboratory Report Ordering Provider Test Date Status BUTCH HANKINSCale 10/19/2021 12:35:31 Final Observation Date Value Abnormality Reference (Units ) Status BUN 10/19/2021 12:35:31 29 Above high normal 6-20 (mg/dL) Final Creatinine 10/19/2021 12:35:31 1.6 Above high normal 0.5-1.0 (mg/dL) Final Glomerular filtration rate/1.73 sq M.predicted [Volume Rate/Area] in Serum, Plasma or Blood by Creatinine-based formula (CKD-EPI) 10/19/2021 12:35:31 31 Below low normal >=60 (mL/min) Final Performing Location [facility] [place] [address]
--- OUTSIDE RECORDS SUMMARY | 2023-01-22 22:52 | External Medical Summary | Summary of Care ---
Author Name Unknown Organization [place] [address] Care Team Providers Care Chocolate Production Machine Operator Name Role Phone Bj Mario DO Primary Care Provider [phone] Encounter Details Date Type Department Care Team Description 09/22/2021 Scan Encounter Family Practice [facility] [place] [address] [place] [address] Bj Mario DO [address] [facility] [place] [address] <No scans attached> Allergies No known active allergiesdocumented as of this encounter (statuses as of 09/24/2021) Medications Medication Sig Dispensed Refills Start Date End Date Status ASPIRIN 81 MG PO CHEW One pill by mouth once a day with food 100 5 08/06/2008 Active VITAMIN D 1000 UNIT PO CAPSIndications:Carmel min D deficiency 1 capsule daily 30 Cap 11 10/13/2009 Active nitroglycerin (NITROSTAT) 0.4 MG SUBLIndications:Specialist Physician jose alberto ischemic heart disease 1 every [...] as of this encounter (statuses as of 09/24/2021) Active Problems Problem Noted Date Chronic kidney disease, stage 3b 021 Overview: Per CKD protocol 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 09/29/2020 Overview: Per CKD protocol History of deep vein thrombosis (DVT) of lower extremity 09/08/2016 Status post insertion of drug eluting co ronary artery stent 04/07/2015 Overview: 2009, DUS placed in the mid RCA at [facility] Asymptomatic bilateral carotid artery st enosis 06/10/2014 Raynaud phenomenon 06/13/2011 Knee joint replacement status 01/13/2011 Overview: 2014, right Dr Ricardo [facility] 2011: left Dr Priya Ricardo [facility] Dyslipidemia, goal LDL below 70 09/21/19 11 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 neurogenic claudication 02/17/2010 Vitamin D deficiency 10/13/2009 Chronic ischemic heart disease 0 S/P angioplasty with stent 06/30/2009 Overview: 07/01/2009 DUS in the RCA at [facility] Non-toxic multinodular goiter 04/21/2009 Overview: [...] as of this encounter (statuses as of 09/24/2021) Resolved Problems Problem Noted Date Resolved Date [...] as of this encounter (statuses as of 09/24/2021) Immunizations Name Administration Dates Next Due COVID-19 [...] 10/19/2021 Office Visit Family Medicine Bj Mario, [address] [place] [address] 11/01/2021 Office Visit Cardiology Yvon Harris PA-C 132 [facility] [place] [address] Health Maintenance Due Date Last Done Comments Dexa Scan 10/30/2020 10/30/2013, 10/20, 08/24/2009, Additional history exists CKD PHOS USE SMARTSET 64324 11/17/202010/21, 07/15/2019, 08/13/2018, Additional history exists COVID-19 Vaccine (3 - Booster for Moderna series) 12/30/2020 07/30/2020, 07/02/2020 Depression Screening, Annual for Pts 12 and Over 08/28/2021 08/28/2020 CKD GFR USE SMARTSET 76145 10/17/202104/19, 10/30/2020, 10/20/2020, Additional history exists CKD HGB USE SMARTSET 46840 10/30/202110/30, 04/06/2020, 04/04/2019, Additional history exists Influenza [...] Documents on File Type Date Recorded Patient Farm Manager Expl anation Advanced Directive service a [...] 08/13/2009 12:00 AM LIVING WILL Power of Retail Marketing Executive 08/13/2009 12:00 AM DOMONIQUE Madsen OF DEVELOPMENT LEAD DURABLE HEALTH POA AND HEALTH CARE TREATMENT INSTR Power of Retail Marketing Executive 08/13/2009 12:00 AM DOMONIQUE Madsen OF DEVELOPMENT LEAD DURABLE HEALTH CARE POA Care Teams Chocolate Production Machine Operator Relationship Specialty Start Date End Date Bj Mario, DO [address] [facility] [place] [address] PCP - General Family Medicine 11/28/16 documented as of this encounter
--- OUTSIDE RECORDS SUMMARY | 2023-01-22 22:52 | External Medical Summary | Summary of Care ---
Author Name Unknown Organization [place] [address] Care Team Providers Care Reimbursement Coordinator Name Role Phone Bj Mario DO Primary Care Provider [phone] Encounter Details Date Type Department Care Team Description 08/16/2021 Scan Encounter Family Practice Festus Carpenter [place] [address] [place] [address] Bj Mario DO 200 [facility] [place] [address] <No scans attached> Allergies No known active allergiesdocumented as of this encounter (statuses as of 08/17/2021) Medications Medication Sig Dispensed Refills Start Date End Date Status ASPIRIN 81 MG PO CHEW One pill by mouth once a day with food 100 5 08/06/2008 Active VITAMIN D 1000 UNIT PO CAPSIndications:Carmel min D deficiency 1 capsule daily 30 Cap 11 10/13/2009 Active nitroglycerin (NITROSTAT) 0.4 MG SUBLIndications:Injury/Safety Hazard Assessment jose alberto ischemic heart disease 1 every [...] as of this encounter (statuses as of 08/17/2021) Active Problems Problem Noted Date Chronic kidney disease, stage 3b 021 Overview: Per CKD protocol 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 09/29/2020 Overview: Per CKD protocol History of deep vein thrombosis (DVT) of lower extremity 09/08/2016 Status post insertion of drug eluting co ronary artery stent 04/07/2015 Overview: 2009, DUS placed in the mid RCA at [facility] Asymptomatic bilateral carotid artery st enosis 06/10/2014 Raynaud phenomenon 06/13/2011 Knee joint replacement status 01/13/2011 Overview: 2014, right Dr Ricardo [facility] 2011: left Dr Priya Ricardo [facility] Dyslipidemia, goal LDL below 70 09/21/19 11 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 neurogenic claudication 02/17/2010 Vitamin D deficiency 10/13/2009 Chronic ischemic heart disease 0 S/P angioplasty with stent 06/30/2009 Overview: 07/01/2009 DUS in the RCA at [facility] Non-toxic multinodular goiter 04/21/2009 Overview: [...] as of this encounter (statuses as of 08/17/2021) Resolved Problems Problem Noted Date Resolved Date [...] as of this encounter (statuses as of 08/17/2021) Immunizations Name Administration Dates Next Due COVID-19 [...] Encounters Date Type Specialty Care Team Description 09/09/2021 Imaging Radiology 10/14/2021 Office Visit Cardiology Yvon Harris, MICHAELC 132 [facility] [place] [address] 10/19/2021 Office Visit [facility] Medicine Bj [facility] DO [facility] [address] Health Maintenance Due Date Last Done Comments Dexa Scan 10/30/2020 10/30/2013, 10/20, 08/24/2009, Additional history exists CKD PHOS USE SMARTSET 40860 11/17/202010/21, 07/15/2019, 08/13/2018, Additional history exists COVID-19 Vaccine (3 - Booster for Moderna series) 12/30/2020 07/30/2020, 07/02/2020 Influenza Vaccine (FLU shot) (#1) 2021 06/05/2020, 04/08/2020, 03/20/2019, Additional history exists *URINE ALBUMIN/CREATININE RATIO ONCE FOR HTN 08/15/2021 Depression Screening, Annual for Pts 12 and Over 08/28/2021 08/28/2020 CKD GFR USE SMARTSET 88850 10/17/202104/19, 10/30/2020, 10/20/2020, Additional history exists CKD HGB USE SMARTSET 14775 10/30/202110/30, 04/06/2020, 04/04/2019, Additional history exists BASIC METABOLIC PANEL (BMP) [...] Documents on File Type Date Recorded Patient Trap Setter Expl anation Advanced Directive service a mike [...] 08/13/2009 12:00 AM LIVING WILL Power of Clutch Mechanic 08/13/2009 12:00 AM DOMONIQUE Madsen OF RAIL WALKER DURABLE HEALTH POA AND HEALTH CARE TREATMENT INSTR Power of Clutch Mechanic 08/13/2009 12:00 AM DOMONIQUE Madsen OF RAIL WALKER DURABLE HEALTH CARE POA Care Teams Reimbursement Coordinator Relationship Specialty Start Date End Date Bj Mario, DO 200 [place] [address] PCP - General Family Medicine 11/28/16 documented as of this encounter
--- OUTSIDE RECORDS SUMMARY | 2023-01-22 22:52 | External Medical Summary | Summary of Care ---
Author Name Unknown Organization [place] [address] Care Team Providers Care Mail Courier Name Role Phone Bj Mario DO Primary Care Provider [phone] Encounter Details Date Type Department Care Team Description 09/08/2021 Scan Encounter Family Practice Festus Carpenter [place] [address] [place] [address] Bj Mario DO 200 [facility] [place] [address] <No scans attached> Allergies No known active allergiesdocumented as of this encounter (statuses as of 09/09/2021) Medications Medication Sig Dispensed Refills Start Date End Date Status ASPIRIN 81 MG PO CHEW One pill by mouth once a day with food 100 5 08/06/2008 Active VITAMIN D 1000 UNIT PO CAPSIndications:Carmel min D deficiency 1 capsule daily 30 Cap 11 10/13/2009 Active nitroglycerin (NITROSTAT) 0.4 MG SUBLIndications:Assessment Director jose alberto ischemic heart disease 1 [...] as of this encounter (statuses as of 09/09/2021) Active Problems Problem Noted Date Chronic kidney disease, stage 3b 021 Overview: Per CKD protocol 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 09/29/2020 Overview: Per CKD protocol History of deep vein thrombosis (DVT) of lower extremity 09/08/2016 Status post insertion of drug eluting co ronary artery stent 04/07/2015 Overview: 2009, DUS placed in the mid RCA at [facility] Asymptomatic bilateral carotid artery st enosis 06/10/2014 Raynaud phenomenon 06/13/2011 Knee joint replacement status 01/13/2011 Overview: 2014, right Dr Ricardo [facility] 2011: left Dr Priya Ricardo [facility] Dyslipidemia, goal LDL below 70 09/21/19 11 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 neurogenic claudication 02/17/2010 Vitamin D deficiency 10/13/2009 Chronic ischemic heart disease 0 S/P angioplasty with stent 06/30/2009 Overview: 07/01/2009 DUS in the RCA at [facility] Non-toxic multinodular goiter 04/21/2009 Overview: seen [...] as of this encounter (statuses as of 09/09/2021) Resolved Problems Problem Noted Date Resolved Date [...] as of this encounter (statuses as of 09/09/2021) Immunizations Name Administration Dates Next Due COVID-19 [...] Radiology 10/14/2021 Office Visit Cardiology Yvon Harris, PATylerC 132 [facility] [place] [address] 10/19/2021 Office Visit [facility], DO [facility] [address] Health Maintenance Due Date Last Done Comments Dexa Scan 10/30/2020 10/30/2013, 10/20, 08/24/2009, Additional history exists CKD PHOS USE SMARTSET 67843 11/17/202010/21, 07/15/2019, 08/13/2018, Additional history exists COVID-19 Vaccine (3 - Booster for Moderna series) 12/30/2020 07/30/2020, 07/02/2020 Depression Screening, Annual for Pts 12 and Over 08/28/2021 08/28/2020 CKD GFR USE SMARTSET 33463 10/17/202104/19, 10/30/2020, 10/20/2020, Additional history exists CKD HGB USE SMARTSET 94581 10/30/202110/30, 04/06/2020, 04/04/2019, Additional history exists Influenza [...] Documents on File Type Date Recorded Patient Lead Recoverer Expl anation Advanced Directive service a mike [...] 08/13/2009 12:00 AM LIVING WILL Power of Computer Numerical Control Grinder 08/13/2009 12:00 AM DOMONIQUE Madsen OF EQUIPMENT MAINTENANCE SUPERINTENDENT DURABLE HEALTH POA AND HEALTH CARE TREATMENT INSTR Power of Computer Numerical Control Grinder 08/13/2009 12:00 AM DOMONIQUE Madsen OF EQUIPMENT MAINTENANCE SUPERINTENDENT DURABLE HEALTH CARE POA Care Teams Mail Courier Relationship Specialty Start Date End Date Bj Mario, DO 200 [facility] [place] [address] PCP - General Family Medicine 11/28/16 documented as of this encounter
--- OUTSIDE RECORDS SUMMARY | 2023-01-22 22:52 | External Medical Summary | Summary of Care ---
Author Name Unknown Organization [place] [address] Care Team Providers Care Solar Installation Manager Name Role Phone Bj Mario DO Primary Care Provider [phone] Reason for Visit * Reason Comments Re-Check 6 month Encounter Details Date Type Department Care Team Description 10/19/2021 Office Visit Family Practice Festus Carpenter [place] 200 [facility] [place] [address] Bj Mario DO 200 [facility] [place] [address] Hyperparathyroidism, primary (HCC)*; 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 neurogenic claudication; Dyslipidemia, goal LDL below 70; Asymptomatic bilateral [...] 11 10/13/2009 Active nitroglycerin (NITROSTAT) 0.4 MG SUBLIndications:Psychology Department Chair jose alberto ischemic heart disease 1 every [...] DUS placed in the mid RCA at [facility] Asymptomatic bilateral carotid artery st enosis 06/10/2014 Raynaud phenomenon 06/13/2011 Knee joint replacement status 01/13/2011 Overview: 2014, right Dr Ricardo [facility] 2011: left Dr Priya Ricardo [facility] Dyslipidemia, goal LDL below 70 09/21/19 11 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 neurogenic claudication 02/17/2010 Vitamin D deficiency 10/13/2009 Chronic ischemic heart disease 0 S/P angioplasty with stent 06/30/2009 Overview: 07/01/2009 DUS in the RCA at [facility] Non-toxic multinodular goiter 04/21/2009 Overview: [...] Sign Reading Time Taken Comments Blood Pressure 102/64 10/19/2021 11:51 AM EDT Pulse 57 10/19/2021 11:51 AM EDT Temperature 36.1 C (97 F) 10/19/2021 11:51 AM EDT Respiratory Rate 16 10/19/2021 11:51 AM EDT Oxygen Saturation 97% 10/19/2021 11:51 AM EDT Inhaled Oxygen Concentration - - Weight 89.4 kg (197 lb 3.2 oz) 10/19/2021 11:51 AM EDT Height 161 cm (5' 3.39") 10/19/2021 11:51 AM EDT Body Mass Index 34.51 10/19/2021 11:51 AM EDT documented in this encounter Progress Notes * Bj Mario DO - 10/19/2021 12:12 PM EDT Subjective: Eugenia Hu is a 86 year old female. Chief Complaint Patient presents with Re-Check 6 month HPI: Pt here in follow-up. HAs been having LBP at the base of her spine and tailbone. Told by [facility] that it was not her hips wearing out. Told more coming from her spine. They did an MRI of her spine. Told she has arthritis. They want her to do therapy, starting this afternoon. She has had injections in her back in the past. Will do therpay before trying shots again. We discussed benefits of PT. Walking slower. No pain sitting but pain with walking. She has Tramadol but tries not to us eit much. Only 2 in a long time. Uses ice also. BP lower today. No light-headedness. Seeing an cryptologic technician operator/analyst tomorrow after blood work. Told she has primary hyperparathyroidism. Endonote reviewed. Not scheduled for bone density check yet. Checking her water to see if too much calcium. PMHx, meds, and allergies reviewed Patient Active [...] Tab by mouth daily. 100 Tab 3 Famotidine 20 MG Oral Tablet (Pepcid) take [...] by mouth once daily 90 Tablet 2 No current facility-administered medications for this visit. Review of patient's allergies indicates: No Known Allergies OBJECTIVE: BP 102/64 | Pulse 57 | Temp 36.1 C (97 F) (Tympanic) | Resp 16 | Ht 1.61 m (5' 3.39") | Wt 89.4kg (197 lb 3.2 oz) | SpO2 97% | BMI 34.51 kg/m | BSA 2 m Estimated body mass index is 34.51 kg/m as calculated from the following: Height as of this encounter: 1.61 m (5' 3.39"). Weight as of this encounter: 89.4 kg (197 lb 3.2 oz). BP Readings from Last 3 Encounters: 10/19/21 102/64 07/23/21 120/72 04/19/21 122/66 Wt Readings from Last 3 Encounters: 10/19/21 89.4 kg (197 lb 3.2 oz) 07/23/21 86.9 kg (191 lb 8 oz) 04/19/21 87.3 kg (192 lb 6.4 oz) ROS: Negative except for above PHYSICAL EXAM: General: alert, healthy and no distress Head: Normocephalic, No masses, lesions, tenderness or abnormalities Heart: regular rate & rhythm, no murmurs and no gallops Lungs: chest symmetric with normal AP diameter, no chest deformities noted, no chest wall tenderness, lungs clear to auscultation Extremities: less than 2 second capillary refill, no joint deformities, effusion, or inflammation, and + 1 edema ASSESSMENT/Plan Hyperparathyroidism, primary (HCC) (Primary) 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 neurogenic claudication Dyslipidemia, goal LDL below 70 Asymptomatic bilateral carotid artery stenosis 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) I spent a total of 30 minutes on the date of service in preparation, delivery, and documentation ofthe care provided to this patient, excluding any time spent on the performance of any procedure or separately billable services. We discussed different health issues and particularly as they apply to wanting to go toward surgeryor not. [facility] does show severe spinal stenosis at L4-L5. Will put into scanning. The above was discussed and understanding was expressed. Bj Mario DO documented in this encounter Nursing Notes * Yanely Coe LPN - 10/19/2021 11:50 AM EDT Eugenia Keen Fritz presents for 6 month recheck. Medications & HM reviewed. documented in this encounter Plan of Treatment Upcoming Encounters Date Type Specialty Care Team Description 11/01/2021 Office Visit Cardiology Yvon Harris, ALEXSANDRA 132 [facility] [place] [address] 01/17/2022 Nurse Only Ancillary Nurse [facility] [address] [place] [address] 05/09/2022 Office Visit Family Medicine Bj Mario DO [address] [place] [address] Health Maintenance Due Date Last Done Comments Dexa Scan 10/30/2020 10/30/2013, 10/20, 08/24/2009, Additional history exists CKD PHOS USE SMARTSET 07442 11/17/202010/21, 07/15/2019, 08/13/2018, Additional history exists COVID-19 Vaccine (3 - Booster for Moderna series) 12/30/2020 07/30/2020, 07/02/2020 Depression Screening, Annual for Pts 12 and Over 08/28/2021 08/28/2020 CKD GFR USE SMARTSET 73712 10/17/202104/19, 10/30/2020, 10/20/2020, Additional history exists CKD HGB USE SMARTSET 20448 10/30/202110/19, 10/30/2020, 04/06/2020, Additional history exists Influenza [...] Spinal stenosis, lumbar region, without neurogenic claudication Dyslipidemia, goal LDL below 70 Other and unspecified hyperlipidemia Asymptomatic bilateral carotid artery stenosis Occlusion and stenosis of multiple and bilateral precerebral arteries without mention of cerebral infarction 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) documented in this encounter Advance Directives Documents on File Type Date Recorded Patient Health Associate Expl anation Advanced Directive service a [...] 08/13/2009 12:00 AM LIVING WILL Power of Linux Engineer 08/13/2009 12:00 AM DOMONIQUE R OF ACQUISITION MARKETING MANAGER DURABLE HEALTH POA AND HEALTH CARE TREATMENT INSTR Power of Linux Engineer 08/13/2009 12:00 AM DOMONIQUE R OF ACQUISITION MARKETING MANAGER DURABLE HEALTH CARE POA Care Teams Solar Installation Manager Relationship Specialty Start Date End Date Bj Mario, DO [address] [place] [address] PCP - General Family Medicine 11/28/16 documented as of this encounter
--- OUTSIDE RECORDS SUMMARY | 2023-01-22 22:53 | External Medical Summary | Summary of Care ---
Author Name Unknown Organization [place] [address] Care Team Providers Care Wood And Hardware Outfitter Name Role Phone Bj Mario DO Primary Care Provider [phone] Encounter Details Date Type Department Care Team Description 08/09/2021 Scan Encounter Family Practice Fest[facility] Carpenter [place] [address] [place] [address] Bj Mario DO 200 [facility] [place] [address] <No scans attached> Allergies No known active allergiesdocumented as of this encounter (statuses as of 08/11/2021) Medications Medication Sig Dispensed Refills Start Date End Date Status ASPIRIN 81 MG PO CHEW One pill by mouth once a day with food 100 5 08/06/2008 Active VITAMIN D 1000 UNIT PO CAPSIndications:Carmel min D deficiency 1 capsule daily 30 Cap 11 10/13/2009 Active nitroglycerin (NITROSTAT) 0.4 MG SUBLIndications:Filing And Polishing Supervisor jose alberto ischemic heart disease 1 every [...] as of this encounter (statuses as of 08/11/2021) Active Problems Problem Noted Date Chronic kidney disease, stage 3b 021 Overview: Per CKD protocol 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 09/29/2020 Overview: Per CKD protocol History of deep vein thrombosis (DVT) of lower extremity 09/08/2016 Status post insertion of drug eluting co ronary artery stent 04/07/2015 Overview: 2009, DUS placed in the mid RCA at [facility] Asymptomatic bilateral carotid artery st enosis 06/10/2014 Raynaud phenomenon 06/13/2011 Knee joint replacement status 01/13/2011 Overview: 2014, right Dr Ricardo [facility] 2011: left Dr Priya Ricardo [facility] Dyslipidemia, goal LDL below 70 09/21/19 11 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 neurogenic claudication 02/17/2010 Vitamin D deficiency 10/13/2009 Chronic ischemic heart disease 0 S/P angioplasty with stent 06/30/2009 Overview: 07/01/2009 DUS in the RCA at [facility] Non-toxic multinodular goiter 04/21/2009 Overview: seen on US, repeat -10/2009 HTN, goal below 140/90 05/25/2006 Advance directive on file 01/19/2005 Overview: No, Advance Directive brochure given to patient. Hip joint replacement status 01/19/2005 Overview: right 2000, left 1992 Menopause Macular degeneration Overview: Uog Simon MD Glaucoma of both eyes Overview: Paul Simon MD, drops used bilateral Both cataracts also documented as of this encounter (statuses as of 08/11/2021) Resolved Problems Problem Noted Date Resolved Date [...] as of this encounter (statuses as of 08/11/2021) Immunizations Name Administration Dates Next Due COVID-19 [...] Office Visit Cardiology Yvon Harris, MICHAELC 132 [facility] [place] [address] 10/19/2021 Office Visit Family Medicine Bj Mario, DO [facility] [address] Health Maintenance Due Date Last Done Comments Dexa Scan 10/30/2020 10/30/2013, 10/20, 08/24/2009, Additional history exists CKD PHOS USE SMARTSET 84583 11/17/202010/21, 07/15/2019, 08/13/2018, Additional history exists COVID-19 Vaccine (3 - Booster for Moderna series) 12/30/2020 07/30/2020, 07/02/2020 Influenza Vaccine (FLU shot) (#1) 2021 06/05/2020, 04/08/2020, 03/20/2019, Additional history exists Depression Screening, Annual for Pts 12 and Over 08/28/2021 08/28/2020 CKD GFR USE SMARTSET 15072 10/17/202104/19, 10/30/2020, 10/20/2020, Additional history exists CKD HGB USE SMARTSET 52318 10/30/202110/30, 04/06/2020, 04/04/2019, Additional history exists BASIC [...] Documents on File Type Date Recorded Patient Group Care Worker Expl anation Advanced Directive service a mike [...] 08/13/2009 12:00 AM LIVING WILL Power of Evening Sitter 08/13/2009 12:00 AM DOMONIQUE Madsen OF REAL ESTATE COORDINATOR DURABLE HEALTH POA AND HEALTH CARE TREATMENT INSTR Power of Evening Sitter 08/13/2009 12:00 AM DOMONIQUE Madsen OF REAL ESTATE COORDINATOR DURABLE HEALTH CARE POA Care Teams Wood And Hardware Outfitter Relationship Specialty Start Date End Date Bj Mario, DO 200 [facility] [place] [address] PCP - General Family Medicine 11/28/16 documented as of this encounter
--- OUTSIDE RECORDS SUMMARY | 2023-01-22 22:53 | External Medical Summary | Summary of Care ---
Author Name Unknown Organization [place] [address] Care Team Providers Care Cone Operator Name Role Phone Bj Mario DO Primary Care Provider [phone] Reason for Referral * Evaluate & Treat - Unlimited Visits (Within 10 days (routine)) - Pending Review Specialty Diagnoses / Procedures Referred By Love gamboa Referred To Contact Endocrinology/Metabolism / Endocrinology Diagnoses Hypercalcemia Yvon Harris PA-C [address] [place] [address] Referral ID Status Reason Start Date Expiration Date Visits Requested Visits Authorized [id number] Pending Review Specialty Services Required 04/21/2021 1 1 Question Answer Referral Priority Within 10 days (routine) For what condition is the patient being referred? Thyroid Issues For which thyroid condition are you referring? Other Thyroid Condition Comments Parathyroid Reason for Visit * Reason Onset Date Comments Test Results 04/21/2021 Encounter Details Date Type Department Care Team Description 04/21/2021 Telephone Cardiology, [facility] [address] [place] [address] Yvon Harris PA-C [address] [place] [address] Test Results Allergies No known active allergiesdocumented as of this encounter (statuses as of 04/22/2021) Medications Medication Sig Dispensed Refills Start Date End Date Status ASPIRIN 81 MG PO CHEW One pill by mouth once a day with food 100 5 08/06/2008 Active VITAMIN D 1000 UNIT PO CAPSIndications:Carmel min D deficiency 1 capsule daily 30 Cap 11 10/13/2009 Active nitroglycerin (NITROSTAT) 0.4 MG SUBLIndications:Psych Np jose alberto ischemic heart disease 1 every [...] for Dizziness. 30 Tab 0 04/25/2020 Active Rosuvastatin Calcium 20 MG Oral Tablet (Crestor)Indications :Dyslipidemia, goal LDL below 70 take 1 tablet by mouth once daily 90 Tab 2 08/12/2020 Active traMADol HCl 50 MG Oral Tablet [...] mouth daily. 45 Tablet 3 04/19/2021 Active documented as of this encounter (statuses as of 04/22/2021) Active Problems Problem Noted Date Chronic kidney disease, stage 3b 021 Overview: Per CKD protocol 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 09/29/2020 Overview: Per CKD protocol History of deep vein thrombosis (DVT) of lower extremity 09/08/2016 Status post insertion of drug eluting co ronary artery stent 04/07/2015 Overview: 2009, DUS placed in the mid RCA at [facility] Asymptomatic bilateral carotid artery st enosis 06/10/2014 Raynaud phenomenon 06/13/2011 Knee joint replacement status 01/13/2011 Overview: 2014, right Dr Ricardo [facility] 2011: left Dr Priya Ricardo [facility] Dyslipidemia, goal LDL below 70 09/21/19 11 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 neurogenic claudication 02/17/2010 Vitamin D deficiency 10/13/2009 Chronic ischemic heart disease 0 S/P angioplasty with stent 06/30/2009 Overview: 07/01/2009 DUS in the RCA at [facility] Non-toxic multinodular goiter 04/21/2009 Overview: seen [...] as of this encounter (statuses as of 04/22/2021) Resolved Problems Problem Noted Date Resolved Date [...] as of this encounter (statuses as of 04/22/2021) Immunizations Name Administration Dates Next Due COVID-19 [...] Miscellaneous Notes * Telephone Encounter - ALESHA Chin - 04/22/2021 1:48 PM EST LMOM. Will offer [facility]. * Telephone Encounter - Stanley Felix LPN - 04/21/2021 4:52 PM EST Called patient and informed of Yvon's message. Patient verbalized understanding. Referral placed. ----- Message from Yvon Harris PA-C sent at 04/21/2021 8:14 AM EST ----- Hypercalcemia , previously with high normal PTH, normal 25 hydroxy vitamin-D, chronic renal insufficiency. Likely primary hyperparathyroidism Recommend Endocrinology evaluation documented in this encounter Plan of Treatment Upcoming Encounters Date Type Specialty Care Team Description 09/09/2021 Imaging Radiology 10/14/2021 Office Visit Cardiology Yvon Harris PA-C [address] [facility] [place] [address] 10/19/2021 Office Visit Family Medicine Bj Mario, DO [address] [facility] [address] Scheduled Referrals Name Type Priority Associated Diagnoses Order Schedule ENDOCRINOLOGY REFERRAL OP Referral Within 10 days (routine) Hypercalcemia Ordered: 04/21/2021 Health Maintenance Due Date Last Done Comments Dexa Scan 10/30/2020 10/30/2013, 10/20, 08/24/2009, Additional history exists CKD PHOS USE SMARTSET 26194 11/17/202010/21, 07/15/2019, 08/13/2018, Additional history exists Influenza Vaccine (FLU shot) (#1) 2021 06/05/2020, 04/08/2020, 03/20/2019, Additional history exists COVID-19 Vaccine (3 - Booster for Moderna series) 01/30/2021 07/30/2020, 07/02/2020 CKD GFR USE SMARTSET 75962 10/17/202104/19, 10/30/2020, 10/20/2020, Additional history exists CKD HGB USE SMARTSET 12589 10/30/202110/30, 04/06/2020, 04/04/2019, Additional history exists DIABETES SCREEN EVERY 3 YRS-AGE 45 AND ABOVE 04/19/2024 04/19/2021, 10/30/2020, 10/20/2020, Additional history exists DTaP,Tdap,and Td Vaccines (2 - Td or Tdap) 08/28/2028 08/28/2018, 04/21/2012, 04/28/2008 Pneumococcal Vaccine: 65+ Years Completed 09/22/2014, 03/12/2002 Zoster Vaccines Completed 02/26/2020, 10/21, 06/11/2008 MENINGOCOCCAL (MENACTRA/MENVEO) Aged Out No longer eligible based on patient's age to complete this topic documented as of this encounter Implants Not on filedocumented as of this encounter Visit Diagnoses Diagnosis Hypercalcemia- Primary documented in this encounter Advance Directives Documents on File Type Date Recorded Patient Membership Secretary Expl anation Advanced Directive service a mike [...] 08/13/2009 12:00 AM LIVING WILL Power of Heel Builder 08/13/2009 12:00 AM DOMONIQUE R OF PHOTOVOLTAIC INSTALLATION TECHNICIAN DURABLE HEALTH POA AND HEALTH CARE TREATMENT INSTR Power of Heel Builder 08/13/2009 12:00 AM DOMONIQUE R OF PHOTOVOLTAIC INSTALLATION TECHNICIAN DURABLE HEALTH CARE POA Care Teams Cone Operator Relationship Specialty Start Date End Date Bj Mario, DO [address] [place] [address] PCP - General Family Medicine 11/28/16 documented as of this encounter
--- OUTSIDE RECORDS SUMMARY | 2023-01-22 22:53 | External Medical Summary | Summary of Care ---
Author Name Unknown Organization [place] [address] Care Team Providers Care Field Contractor Name Role Phone Bj Mario DO Primary Care Provider [phone] Reason for Visit * Reason Comments Follow Up Encounter Details Date Type Department Care Team Description 04/19/2021 Office Visit Family Practice [facility] [place] [address] [facility] [place] [address] Bj Mario DO [address] [facility] [place] [address] 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 neurogenic claudication*; Dyslipidemia, goal LDL below 70; Status post insertion of drug eluting coronary artery stent; 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); HTN, goal below 140/90; CHR ISCHEMIC HRT DIS NOS; Encounter for monitoring diuretic therapy Allergies No known active allergiesdocumented as of this encounter (statuses as of 04/19/2021) Medications Medication Sig Dispensed Refills Start Date [...] 03/17/2021 Active Lisinopril 10 MG Oral Tablet (Prinivil)Indicati ons: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),Edema take 1 tablet by mouth once daily 90 Tablet 1 04/05/2021 Active Famotidine 20 MG Oral Tablet (Pepcid)Indication s:Gastroesophageal reflux disease without esophagitis take 1 tablet by mouth twice a day 180 Tablet 2 04/09/2021 Active Metoprolol Succinate ER 25 MG Oral Tablet Extended Release 24 Hour (toPROL XL)Indications:Chr onic ischemic heart disease Take 0.5 Tablets by mouth daily. 45 Tablet 3 04/19/2021 Active Metoprolol Succinate ER 25 MG Oral Tablet Extended Release 24 Hour (toPROL XL)Indications:Chr onic ischemic heart disease Take 0.5 Tabs by mouth daily. 45 Tab 3 04/08/2020 1 Discontinue d(Refill) documented as of this encounter (statuses as of 04/19/2021) Active Problems Problem Noted Date Chronic kidney disease, stage 3b 021 Overview: Per CKD protocol 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 09/29/2020 Overview: Per CKD protocol History of deep vein thrombosis (DVT) of lower extremity 09/08/2016 Status post insertion of drug eluting co ronary artery stent 04/07/2015 Overview: 2009, DUS placed in the mid RCA at [facility] Asymptomatic bilateral carotid artery st enosis 06/10/2014 Raynaud phenomenon 06/13/2011 Knee joint replacement status 01/13/2011 Overview: 2014, right Dr Ricardo [facility] 2011: left Dr Priya Ricardo [facility] Dyslipidemia, goal LDL below 70 09/21/19 11 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 neurogenic claudication 02/17/2010 Vitamin D deficiency 10/13/2009 Chronic ischemic heart disease 0 S/P angioplasty with stent 06/30/2009 Overview: 07/01/2009 DUS in the RCA at [facility] Non-toxic multinodular goiter 04/21/2009 Overview: [...] as of this encounter (statuses as of 04/19/2021) Resolved Problems Problem Noted Date Resolved Date [...] as of this encounter (statuses as of 04/19/2021) Immunizations Name Administration Dates Next Due COVID-19 [...] Sign Reading Time Taken Comments Blood Pressure 122/66 04/19/2021 8:52 AM EST Pulse 54 04/19/2021 8:52 AM EST Temperature 35.8 C (96.4 F) 04/19/2021 8:52 AM ES T Respiratory Rate 18 04/19/2021 8:52 AM EST Oxygen Saturation - - Inhaled Oxygen Concentration - - Weight 87.3 kg (192 lb 6.4 oz) 04/19/2021 8:52 A M EST Height - - Body Mass Index 35.19 09/29/2020 9:01 AM EDT documented in this encounter Progress Notes * Bj Mario, - 04/19/2021 9:03 AM EST Subjective: Eugenia Hu is a 86 year old female. Chief Complaint Patient presents with Follow Up HPI: She had some swelling and headache on Amlodipine. Got rid of it and feels better. Due for blood work. Says she got flu shot done, gave cardio the date. Got first two COVID shots done. We discussed the booster. Wants to get booster at [facility]. BP is great today. Weight is down after med switches. Down 7 pounds since switches. DEXA offered and she does not want it now. She uses Tramadol on very rare occasions. PMHx, meds, and allergies reviewed Patient Active [...] affectedarea as directed. 100 g 5 travoprost, MAAY Free, (TRAVATAN Z) 0.004 % ophthalmic solution instill 1 drop into both eyes every evening 2.5 mL 5 Metoprolol Succinate ER 25 MG Oral Tablet Extended Release 24 Hour (toPROL XL) Take 0.5 Tabs bymouth daily. 45 Tab 3 Meclizine HCl 12.5 MG Oral Tablet (ANTIVERT) Take 1 Tab by mouth 3 times a day as needed for Dizziness. 30 Tab 0 Rosuvastatin Calcium 20 MG Oral Tablet (Crestor) take 1 tablet by mouth once daily 90 Tab 2 traMADol HCl 50 MG Oral Tablet (Ultram) [...] mouth twice a day 180 Tablet 2 No current facility-administered medications for this visit. Review of patient's allergies indicates: No Known Allergies OBJECTIVE: BP 122/66 | Pulse 54 | Temp 35.8 C (96.4 F) (Tympanic) | Resp 18 | Wt 87.3 kg (192 lb 6.4 oz) |BMI 35.19 kg/m | BSA 1.95 m Estimated body mass index is 35.19 kg/m as calculated from the following: Height as of 09/29/20: 1.575 m (5' 2"). Weight as of this encounter: 87.3 kg (192 lb 6.4 oz). BP Readings from Last 3 Encounters: 04/19/21 122/66 04/16/21 126/68 01/04/21 124/64 Wt Readings from Last 3 Encounters: 04/19/21 87.3 kg (192 lb 6.4 oz) 04/16/21 87.5 kg (193 lb) 01/04/21 89.9 kg (198 lb 4 oz) ROS: Negative except for above PHYSICAL EXAM: General: alert, healthy and no distress Head: Normocephalic, No masses, lesions, tenderness or abnormalities Heart: regular rate & rhythm, no murmurs and no gallops Lungs: chest symmetric with normal AP diameter, no chest deformities noted, no chest wall tenderness, lungs clear to auscultation Abdomen: abdomen soft, non-tender, normal bowel sounds and no masses or organomegaly Extremities: less than 2 second capillary refill, no joint deformities, effusion, or inflammation ASSESSMENT/Plan 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 Feeling good overall with medication changes The above was discussed and understanding was expressed. Bj Mario DO documented in this encounter Nursing Notes * Loretta Root LPN - 04/19/2021 8:52 AM EST Eugenia Hu presents for 6 month recheck. Medications & HM reviewed. documented in this encounter Plan of Treatment Upcoming Encounters Date Type Specialty Care Team Description 09/09/2021 Imaging Radiology 10/14/2021 Office Visit Cardiology Yvon Harris PA-C [address] [place] [address] [place] [address] Pending Results Name Type Priority Associated Diagnoses Date /Time LIPID PANEL WITH DIRECT LDL IF TG IS HIGH Lab Routine Dyslipidemia, goal LDL below 70 04/19/2021 9:18 AM EST COMPREHENSIVE METABOLIC PANEL Lab Routine Dyslipidemia, goal LDL below 70 Encounter for monitoring diuretic therapy 04/19/2021 9:18 AM EST MAGNESIUM Lab Routine Encounter for monitoring diuretic therapy 04/19/2021 9:18 AM EST Health Maintenance Due Date Last Done Comments Dexa Scan 10/30/2020 10/30/2013, 10/20, 08/24/2009, Additional history exists CKD PHOS USE SMARTSET 32292 11/17/202010/21, 07/15/2019, 08/13/2018, Additional history exists Influenza Vaccine (FLU shot) (#1) 2021 06/05/2020, 04/08/2020, 03/20/2019, Additional history exists COVID-19 Vaccine (3 - Booster for Moderna series) 01/30/2021 07/30/2020, 07/02/2020 CKD GFR USE SMARTSET 26243 05/01/202110/30, 10/20/2020, 09/15/2020, Additional history exists CKD HGB USE SMARTSET 76046 10/30/202110/30, 04/06/2020, 04/04/2019, Additional history exists DIABETES SCREEN EVERY 3 YRS-AGE 45 AND ABOVE 10/31/2023 10/30/2020, 10/20/2020, 09/15/2020, Additional history exists DTaP,Tdap,and Td Vaccines (2 [...] LDL below 70 Other and unspecified hyperlipidemia Status post insertion of drug eluting coronary artery stent Postsurgical percutaneous transluminal coronary angioplasty status 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) HTN, goal below 140/90 Unspecified essential hypertension CHR ISCHEMIC HRT DIS NOS Chronic ischemic heart disease, unspecified Encounter for monitoring diuretic therapy Encounter for therapeutic drug monitoring documented in this encounter Advance Directives Documents on File Type Date Recorded Patient Bin Packer Expl anation Advanced Directive service a mike [...] 08/13/2009 12:00 AM LIVING WILL Power of Jewelry Polisher 08/13/2009 12:00 AM DOMONIQUE R OF WIRELINE OPERATOR DURABLE HEALTH POA AND HEALTH CARE TREATMENT INSTR Power of Jewelry Polisher 08/13/2009 12:00 AM DOMONIQUE R OF WIRELINE OPERATOR DURABLE HEALTH CARE POA Care Teams Field Contractor Relationship Specialty Start Date End Date Bj Mario, DO [address] [place] [address] PCP - General Family Medicine 11/28/16 documented as of this encounter
--- OUTSIDE RECORDS SUMMARY | 2023-01-22 22:53 | External Medical Summary | Summary of Care ---
Author Name Unknown Organization [place] [address] Care Team Providers Care Sales And Operations Trainee Name Role Phone Bj Mario DO Primary Care Provider [phone] Encounter Details Date Type Department Care Team Description 07/26/2021 Scan Encounter Family Practice [facility] [place] [address] [place] [address] Bj Mario DO 200 [facility] [place] [address] <No scans attached> Allergies No known active allergiesdocumented as of this encounter (statuses as of 07/28/2021) Medications Medication Sig Dispensed Refills Start Date End Date Status ASPIRIN 81 MG PO CHEW One pill by mouth once a day with food 100 5 08/06/2008 Active VITAMIN D 1000 UNIT PO CAPSIndications:Carmel min D deficiency 1 capsule daily 30 Cap 11 10/13/2009 Active nitroglycerin (NITROSTAT) 0.4 MG SUBLIndications:Certified Master Safe Technician jose alberto ischemic heart disease 1 every [...] as of this encounter (statuses as of 07/28/2021) Active Problems Problem Noted Date Chronic kidney [...] as of this encounter (statuses as of 07/28/2021) Resolved Problems Problem Noted Date Resolved Date [...] as of this encounter (statuses as of 07/28/2021) Immunizations Name Administration Dates Next Due COVID-19 [...] Office Visit Cardiology Yvon Harris, MICHAELC [address] [facility] [place] [address] 10/19/2021 Office Visit [facility] [address] Health Maintenance Due Date Last Done Comments Dexa Scan 10/30/2020 10/30/2013, 10/20, 08/24/2009, Additional history exists CKD PHOS USE SMARTSET 78029 11/17/202010/21, 07/15/2019, 08/13/2018, Additional history exists COVID-19 Vaccine (3 - Booster for Moderna series) 12/30/2020 07/30/2020, 07/02/2020 Influenza Vaccine (FLU shot) (#1) 2021 06/05/2020, 04/08/2020, 03/20/2019, Additional history exists Depression Screening, Annual for Pts 12 and Over 08/28/2021 08/28/2020 CKD GFR USE SMARTSET 36087 10/17/202104/19, 10/30/2020, 10/20/2020, Additional history exists CKD HGB USE SMARTSET 75161 10/30/202110/30, 04/06/2020, 04/04/2019, Additional history exists BASIC [...] Documents on File Type Date Recorded Patient Instrumentation Chemist Expl anation Advanced Directive service a mike [...] 08/13/2009 12:00 AM LIVING WILL Power of Immigration Specialist 08/13/2009 12:00 AM DOMONIQUE Madsen OF MARKETING TRAFFIC COORDINATOR DURABLE HEALTH POA AND HEALTH CARE TREATMENT INSTR Power of Immigration Specialist 08/13/2009 12:00 AM DOMONIQUE Madsen OF MARKETING TRAFFIC COORDINATOR DURABLE HEALTH CARE POA Care Teams Sales And Operations Trainee Relationship Specialty Start Date End Date Bj Mario, DO [address] [facility] [place] [address] PCP - General Family Medicine 11/28/16 documented as of this encounter
--- OUTSIDE RECORDS SUMMARY | 2023-01-22 22:53 | External Medical Summary | Summary of Care ---
Author Name Unknown Organization [place] [address] Care Team Providers Care Crochet Beader Name Role Phone Bj Mario Primary Care Provider [phone] Reason for Visit * Reason Comments Acute Pt c/o of dizziness since 07/21 and right feels plugged up Encounter Details Date Type Department Care Team Description 07/23/2021 Office Visit General Internal Medicine [facility] [place] [address] [facility] [place] [address] Maury Higgins MD [address] [facility] [place] [address] Dizziness*; Ear fullness, right; 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) Allergies No known active allergiesdocumented as of this encounter (statuses as of 07/23/2021) Medications Medication Sig Dispensed Refills Start Date End Date Status ASPIRIN 81 MG PO CHEW One pill by mouth once a day with food 100 5 08/06/2008 Active VITAMIN D 1000 UNIT PO CAPSIndications:Carmel min D deficiency 1 capsule daily 30 Cap 11 10/13/2009 Active nitroglycerin (NITROSTAT) 0.4 MG SUBLIndications:Cherry Sorter jose alberto ischemic heart disease 1 every [...] as of this encounter (statuses as of 07/23/2021) Active Problems Problem Noted Date Chronic kidney disease, stage 3b 021 Overview: Per CKD protocol 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 09/29/2020 Overview: Per CKD protocol History of deep vein thrombosis (DVT) of lower extremity 09/08/2016 Status post insertion of drug eluting co ronary artery stent 04/07/2015 Overview: 2009, DUS placed in the mid RCA at [facility] Asymptomatic bilateral carotid artery st enosis 06/10/2014 Raynaud phenomenon 06/13/2011 Knee joint replacement status 01/13/2011 Overview: 2014, right Dr Ricardo [facility] 2011: left Dr Priya Ricardo [facility] Dyslipidemia, goal LDL below 70 09/21/19 11 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 neurogenic claudication 02/17/2010 Vitamin D deficiency 10/13/2009 Chronic ischemic heart disease 0 S/P angioplasty with stent 06/30/2009 Overview: 07/01/2009 DUS in the RCA at [facility] Non-toxic multinodular goiter 04/21/2009 Overview: seen [...] as of this encounter (statuses as of 07/23/2021) Resolved Problems Problem Noted Date Resolved Date [...] as of this encounter (statuses as of 07/23/2021) Immunizations Name Administration Dates Next Due COVID-19 [...] in this encounter Progress Notes * Maury Higgins MD - 07/23/2021 12:28 PM EST Chief [...] Dexa Scan 10/30/2020 CKD PHOS USE SMARTSET 36304 11/17/2020 COVID-19 Vaccine (3 - Booster for [...] Not on file Occupational History 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, [employer]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: 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: [employer] Tobacco Use Smoking status: Never Smoker Smokeless [...] Self-Exams Not Asked Social History Narrative born [place] in [facility] since 1953 ; 3 healthy children; [...] replacement status 01/13/[address] Priya Ricardo [facility] Knee joint replacement status 12/15/2013 right [facility] Macular degeneration Ugo Simon MD Menopause 1974 Need for prophylactic hormone replacement therapy (postmenopausal) 1974 Non-toxic multinodular goiter 04/2009 seen on US, repeat -10/2009 Other screening mammogram 10/24/03 Birad Code 2 Other specified glaucoma both eyes, Paul Simon MD, drops used, timolol S/P angioplasty with stent 06/30/09 [facility] Status post insertion of drug eluting coronary artery stent 04/07/20152009, DUS placed in the mid RCA at [facility] Vitamin D deficiency 10/13/2009 Past Surgical History: Procedure Laterality Date ARTHROPLASTY KNEE TOTAL Left 01/13/2011 Left, Dr Priya Ricardo [facility] ARTHROPLASTY KNEE TOTAL Right 12/16/13 Right, Dr Priya Ricardo [facility] CARDIAC CATH SCANNED RESULT 06/30/2009 DUS placed in right coronary, [facility] CARPAL TUNNEL SURGERY Bilateral 2015 bilateral COLONOSCOPY 03/22/2006 normal repeat in 2016 COLONOSCOPY, DIAGNOSTIC (RECTUM) 09/01/2016 diverticulosis/COLONOSCOPY FLEXIBLE PROXIMAL DIAGNOSTIC performed by Kaylie Ford MD at ENDOSCOPY [facility] COLONOSCOPY, DIAGNOSTIC (RECTUM) 10/09/2018 diverticulosis/[facility] COLONOSCOPY, GI REFERRAL OP 03/22/2005 diverticulosis, repeat in 10 years for surveillance reasons COLORECTAL CANCER SCREEN;W/FLE 1999 normal, Dr Estrella DENTAL SURGERY PROCEDURE NEC 1970 Dental Surgery Procedure tumor benign palate DEXA SCAN/BONE MINERAL AXIAL 07/2002 normal, repeat 2007 DEXA SCAN/BONE MINERAL AXIAL 07/20/2006 normal repeat in 6-8 years EGD, FLEXIBLE, DIAGNOSTIC 01/30/2019 acid reflux, Schatzki ring, hiatal hernia / [facility] EXERCISE ECHO 09/02/2002 normal, Dr Genao INJECT DX/THER SUBSTANCE INTERLAMINAR LUMBAR/SACRAL W IMAGE GUIDE 01/18/2018 INJECTION SPINE LUMBAR OR SACRAL performed by Paul Paradigm Cousins, DO at OR [facility] INJECT DX/THER SUBSTANCE INTERLAMINAR LUMBAR/SACRAL W IMAGE GUIDE 02/12/2018 INJECTION SPINE LUMBAR OR SACRAL performed by MamaBear App Cousins, DO at OR [facility] INJECT DX/THER SUBSTANCE INTERLAMINAR LUMBAR/SACRAL W IMAGE GUIDE 12/27/2018 INJECTION SPINE LUMBAR OR SACRAL performed by MamaBear App Cousins, DO at OR [facility] INJECT DX/THER SUBSTANCE INTERLAMINAR LUMBAR/SACRAL W IMAGE GUIDE 02/21/2019 INJECTION SPINE LUMBAR OR SACRAL performed by MamaBear App Cousins, DO at [facility] INJECT DX/THER [...] one ovary left in, Dr Chakraborty in [facility] REMOVE CATARACT, INSERT LENS PROSTH Right 01/05/[address] Messi Simon REMOVE CATARACT, INSERT LENS PROSTH Left 01/28/[address] Messi Simon STENT, COATED/COVERED, WITH DELIVERY SYSTEM 06/30/2009 [employer] Endeaver Drug Eluding Stent [facility] TOTAL HIP REPLACEMENT & PROSTHESIS 1992 left, Dr Ricardo TOTAL HIP REPLACEMENT & PROSTHESIS 10/2000 right , Dr Ricardo at [facility] Family History Problem Relation Age of Onset [...] symptoms worsen or fail to improve. Maury Higgins MD * Yessy Villa LPN - 07/23/2021 12:02 PM EST Chief Complaint Patient presents with Acute Pt c/o of dizziness since 07/21 and right feels plugged up documented in this encounter Plan of Treatment Upcoming Encounters Date Type Specialty Care Team Description 09/09/2021 Imaging Radiology 10/14/2021 Office Visit Cardiology Yvon Harris PA-C [address] [facility] [place] [address] 10/19/2021 Office Visit Family Medicine Bj Mario DO [facility] [address] Health Maintenance Due Date Last Done Comments Dexa Scan 10/30/2020 10/30/2013, 10/20, 08/24/2009, Additional history exists CKD PHOS USE SMARTSET 31717 11/17/202010/21, 07/15/2019, 08/13/2018, Additional history exists COVID-19 Vaccine (3 - Booster for Moderna series) 12/30/2020 07/30/2020, 07/02/2020 Influenza Vaccine (FLU shot) (#1) 2021 06/05/2020, 04/08/2020, 03/20/2019, Additional history exists Depression Screening, Annual for Pts 12 and Over 08/28/2021 08/28/2020 CKD GFR USE SMARTSET 48380 10/17/202104/19, 10/30/2020, 10/20/2020, Additional history exists CKD HGB USE SMARTSET 09089 10/30/202110/30, 04/06/2020, 04/04/2019, Additional history exists BASIC [...] Documents on File Type Date Recorded 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
--- OUTSIDE RECORDS SUMMARY | 2023-01-22 22:53 | External Medical Summary | Summary of Care ---
Author Name Unknown Organization [place] [address] Care Team Providers Care Building Pressure Washer Name Role Phone Bj Mario DO Primary Care Provider [phone] Reason for Referral * Evaluate & Treat - Unlimited Visits (Within 10 days (routine)) - Pending Review Specialty Diagnoses / Procedures Referred By Love gamboa Referred To Contact Endocrinology/Metabolism / Endocrinology Diagnoses Hypercalcemia Yvon Harris PA-C [address] [place] [address] Referral ID Status Reason Start Date Expiration Date Visits Requested Visits Authorized [id number] Pending Review Specialty Services Required 04/21/2021 1 1 Question Answer Referral Priority Within 10 days (routine) For what condition is the patient being referred? Thyroid Issues For which thyroid condition are you referring? Other Thyroid Condition Comments Parathyroid Reason for Visit * Reason Onset Date Comments Test Results 04/21/2021 Encounter Details Date Type Department Care Team Description 04/21/2021 Telephone Cardiology, [facility] [address] [place] [address] Yvon Harris PA-C [address] [place] [address] Test Results Allergies No known active allergiesdocumented [...] 11 10/13/2009 Active nitroglycerin (NITROSTAT) 0.4 MG SUBLIndications:Wood Flooring Specialist jose alberto ischemic heart disease 1 [...] placed in the mid RCA at [facility] Asymptomatic bilateral carotid artery st enosis 06/10/2014 Raynaud phenomenon 06/13/2011 Knee joint replacement status 01/13/2011 Overview: 2014, right Dr Ricardo [facility] 2011: left Dr Priya Ricardo [facility] Dyslipidemia, goal LDL below 70 09/21/19 11 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 neurogenic claudication 02/17/2010 Vitamin D deficiency 10/13/2009 Chronic ischemic heart disease 0 S/P angioplasty with stent 06/30/2009 Overview: 07/01/2009 DUS in the RCA at [facility] Non-toxic multinodular goiter 04/21/2009 Overview: seen [...] encounter Miscellaneous Notes * Telephone Encounter - Stanley Felix LPN [...] Office Visit Cardiology Yvon Harris PA-C [address] [facility] [place] [address] 10/19/2021 Office Visit Family Medicine Bj Mario, DO [address] [facility] [address] Scheduled Referrals Name Type Priority Associated Diagnoses Order Schedule ENDOCRINOLOGY REFERRAL OP Referral Within 10 days (routine) Hypercalcemia Ordered: 04/21/2021 Health Maintenance Due Date Last Done Comments Dexa Scan 10/30/2020 10/30/2013, 10/20, 08/24/2009, Additional history exists CKD PHOS USE SMARTSET 16629 11/17/202010/21, 07/15/2019, 08/13/2018, Additional history exists Influenza Vaccine (FLU shot) (#1) 2021 06/05/2020, 04/08/2020, 03/20/2019, Additional history exists COVID-19 Vaccine (3 - Booster for Moderna series) 01/30/2021 07/30/2020, 07/02/2020 CKD GFR USE SMARTSET 43354 10/17/202104/19, 10/30/2020, 10/20/2020, Additional history exists CKD HGB USE SMARTSET 51322 10/30/202110/30, 04/06/2020, 04/04/2019, Additional history exists DIABETES [...] Documents on File Type Date Recorded Patient Weight Count Operator Expl anation Advanced Directive service a [...] 08/13/2009 12:00 AM LIVING WILL Power of Online Marketing Manager 08/13/2009 12:00 AM DOMONIQUE R OF GAS OR PETROLEUM OPERATOR DURABLE HEALTH POA AND HEALTH CARE TREATMENT INSTR Power of Online Marketing Manager 08/13/2009 12:00 AM DOMONIQUE R OF GAS OR PETROLEUM OPERATOR DURABLE HEALTH CARE POA Care Teams Building Pressure Washer Relationship Specialty Start Date End Date Bj Mario, DO [address] [place] [address] PCP - General Family Medicine 11/28/16 documented as of this encounter
--- OUTSIDE RECORDS SUMMARY | 2023-01-22 22:53 | External Medical Summary | Summary of Care ---
Author Name Unknown Organization [place] [address] Care Team Providers Care Visual Effects Artist Name Role Phone Nhi Florian DO Primary Care Provider [phone] Reason for Visit * Reason Comments eRx-Medication Refill Encounter Details Date Type Department Care Team Description 05/16/2021 Refill Family Practice [facility] [place] [address] [facility] [place] [address] Nhi Florian DO [address] [facility] [place] [address] Dyslipidemia, goal LDL below 70 Allergies No known active allergiesdocumented as of this encounter (statuses as of 05/17/2021) Medications Medication Sig Dispensed Refills Start Date [...] once daily 90 Tablet 2 05/17/2021 Active Rosuvastatin Calcium 20 MG Oral Tablet (Crestor)Indicatio ns:Dyslipidemia, goal LDL below 70 take 1 tablet by mouth once daily 90 Tab 2 08/12/2020 1 Discontinued documented as of this encounter (statuses as of 05/17/2021) Active Problems Problem Noted Date Chronic kidney disease, stage 3b 021 Overview: Per CKD protocol 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 09/29/2020 Overview: Per CKD protocol History of deep vein thrombosis (DVT) of lower extremity 09/08/2016 Status post insertion of drug eluting co ronary artery stent 04/07/2015 Overview: 2009, DUS placed in the mid RCA at [facility] Asymptomatic bilateral carotid artery st enosis 06/10/2014 Raynaud phenomenon 06/13/2011 Knee joint replacement status 01/13/2011 Overview: 2014, right Dr Ricardo [facility] 2011: left Dr Priya Ricardo [facility] Dyslipidemia, goal LDL below 70 09/21/19 11 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 neurogenic claudication 02/17/2010 Vitamin D deficiency 10/13/2009 Chronic ischemic heart disease 0 S/P angioplasty with stent 06/30/2009 Overview: 07/01/2009 DUS in the RCA at [facility] Non-toxic multinodular goiter 04/21/2009 Overview: [...] as of this encounter (statuses as of 05/17/2021) Resolved Problems Problem Noted Date Resolved Date [...] as of this encounter (statuses as of 05/17/2021) Immunizations Name Administration Dates Next Due COVID-19 [...] encounter Miscellaneous Notes * Telephone Encounter - Jhonny Ocampo RPh - 05/17/2021 9:34 AM EST Signed Prescriptions: Disp Refills Rosuvastatin Calcium 20 MG Oral Tablet (Cr*90 Tab*2 Sig: take 1 tablet by mouth once dailyAuthorizing Provider: NHI FLORIAN User: JHONNY CUELLAR--- documented in this encounter Plan of Treatment Upcoming Encounters Date Type Specialty Care Team Description 09/09/2021 Imaging Radiology 10/14/2021 Office Visit Cardiology Yvon Harris PA-C [address] [facility] [place] [address] 10/19/2021 Office Visit Family Medicine Nhi Florian, DO [address] [place] [address] Health Maintenance Due Date Last Done Comments Dexa Scan 10/30/2020 10/30/2013, 10/20, 08/24/2009, Additional history exists CKD PHOS USE SMARTSET 63529 11/17/202010/21, 07/15/2019, 08/13/2018, Additional history exists Influenza Vaccine (FLU shot) (#1) 2021 06/05/2020, 04/08/2020, 03/20/2019, Additional history exists COVID-19 Vaccine (3 - Booster for Moderna series) 01/30/2021 07/30/2020, 07/02/2020 Depression Screening, Annual for Pts 12 and Over 08/28/2021 08/28/2020 CKD GFR USE SMARTSET 03710 10/17/202104/19, 10/30/2020, 10/20/2020, Additional history exists CKD HGB USE SMARTSET 85372 10/30/202110/30, 04/06/2020, 04/04/2019, Additional history exists DIABETES [...] Documents on File Type Date Recorded Patient Screedman Expl anation Advanced Directive service a mike [...] 08/13/2009 12:00 AM LIVING WILL Power of Electrotype Servicer 08/13/2009 12:00 AM DOMONIQUE R OF TYPING ELEMENT MACHINE OPERATOR DURABLE HEALTH POA AND HEALTH CARE TREATMENT INSTR Power of Electrotype Servicer 08/13/2009 12:00 AM DOMONIQUE R OF TYPING ELEMENT MACHINE OPERATOR DURABLE HEALTH CARE POA Care Teams Visual Effects Artist Relationship Specialty Start Date End Date Nhi Florian, DO [address] [place] [address] PCP - General Family Medicine 11/28/16 documented as of this encounter
--- OUTSIDE RECORDS SUMMARY | 2023-01-22 22:53 | External Medical Summary | Summary of Care ---
Author Name Unknown Organization [place] [address] Care Team Providers Care Pan Reclaim Processor Name Role Phone Bj Mario DO Primary Care Provider [phone] Reason for Referral * Evaluate & Treat - Unlimited Visits (Within 10 days (routine)) - Pending Review Specialty Diagnoses / Procedures Referred By Love gamboa Referred To Contact Endocrinology/Metabolism / Endocrinology Diagnoses Hypercalcemia Yvon Harris PA-C [address] [place] [address] Referral ID Status Reason Start Date Expiration Date Visits Requested Visits Authorized [id number] Pending Review Specialty Services Required 04/21/2021 1 1 Question Answer Referral Priority Within 10 days (routine) For what condition is the patient being referred? Thyroid Issues For which thyroid condition are you referring? Other Thyroid Condition Comments Parathyroid Reason for Visit * Reason Onset Date Comments Test Results 04/21/2021 Encounter Details Date Type Department Care Team Description 04/21/2021 Telephone Cardiology, [facility] [address] [place] [address] Yvon Harris PA-C [address] [place] [address] Test Results Allergies No known active allergiesdocumented as of this encounter (statuses as of 04/21/2021) Medications Medication Sig Dispensed Refills Start Date End Date Status ASPIRIN 81 MG PO CHEW One pill by mouth once a day with food 100 5 08/06/2008 Active VITAMIN D 1000 UNIT PO CAPSIndications:Carmel min D deficiency 1 capsule daily 30 Cap 11 10/13/2009 Active nitroglycerin (NITROSTAT) 0.4 MG SUBLIndications:Or Director jose alberto ischemic heart disease 1 [...] as of this encounter (statuses as of 04/21/2021) Active Problems Problem Noted Date Chronic kidney [...] as of this encounter (statuses as of 04/21/2021) Resolved Problems Problem Noted Date Resolved Date [...] as of this encounter (statuses as of 04/21/2021) Immunizations Name Administration Dates Next Due COVID-19 [...] Office Visit Cardiology Yvon Harris PA-C [address] [facility] [place] [address] 10/19/2021 Office Visit Family Medicine Bj Mario, DO [address] [facility] [address] Scheduled Referrals Name Type Priority Associated Diagnoses Order Schedule ENDOCRINOLOGY REFERRAL OP Referral Within 10 days (routine) Hypercalcemia Ordered: 04/21/2021 Health Maintenance Due Date Last Done Comments Dexa Scan 10/30/2020 10/30/2013, 10/20, 08/24/2009, Additional history exists CKD PHOS USE SMARTSET 60206 11/17/202010/21, 07/15/2019, 08/13/2018, Additional history exists Influenza Vaccine (FLU shot) (#1) 2021 06/05/2020, 04/08/2020, 03/20/2019, Additional history exists COVID-19 Vaccine (3 - Booster for Moderna series) 01/30/2021 07/30/2020, 07/02/2020 CKD GFR USE SMARTSET 37893 10/17/202104/19, 10/30/2020, 10/20/2020, Additional history exists CKD HGB USE SMARTSET 85693 10/30/202110/30, 04/06/2020, 04/04/2019, Additional history exists DIABETES [...] Documents on File Type Date Recorded 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
--- OUTSIDE RECORDS SUMMARY | 2023-01-22 22:53 | External Medical Summary | Summary of Care ---
Author Name Unknown Organization [place] [address] Care Team Providers Care Certified Rehabilitation Counselor Name Role Phone Bj Mario DO Primary Care Provider [phone] Reason for Visit * Reason Comments Follow Up Encounter Details Date Type Department Care Team Description 04/19/2021 Office Visit Family Practice [address] [place] [address] [facility] [place] [address] Bj Mario DO [address] [facility] [place] [address] 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 neurogenic [...] mid RCA at [facility] Asymptomatic bilateral carotid artery st enosis 06/10/2014 Raynaud phenomenon 06/13/2011 Knee joint replacement status 01/13/2011 Overview: 2014, right Dr Ricardo [facility] 2011: left Dr Priya Ricardo [facility] Dyslipidemia, goal LDL below 70 09/21/19 11 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 neurogenic claudication 02/17/2010 Vitamin D deficiency 10/13/2009 Chronic ischemic heart disease 0 S/P angioplasty with stent 06/30/2009 Overview: 07/01/2009 DUS in the RCA at [facility] Non-toxic multinodular goiter 04/21/2009 Overview: seen on [...] LPN - 04/19/2021 8:52 AM EST Eugenia Hendersonmarieskylar presents for 6 month recheck. Medications & HM reviewed. documented in this encounter Plan of Treatment Upcoming Encounters Date Type Specialty Care Team Description 09/09/2021 Imaging Radiology 10/14/2021 Office Visit Cardiology Yvon Harris PA-C [address] [facility] [place] [address] 10/19/2021 Office Visit Family Medicine Bj Mario DO [address] [place] [address] Pending Results Name Type Priority Associated Diagnoses [...] Additional history exists CKD PHOS USE SMARTSET 22554 11/17/202010/21, 07/15/2019, 08/13/2018, Additional history exists Influenza Vaccine (FLU shot) (#1) 2021 06/05/2020, 04/08/2020, 03/20/2019, Additional history exists COVID-19 Vaccine (3 - Booster for Moderna series) 01/30/2021 07/30/2020, 07/02/2020 CKD GFR USE SMARTSET 97775 05/01/202110/30, 10/20/2020, 09/15/2020, Additional history exists CKD HGB USE SMARTSET 44826 10/30/202110/30, 04/06/2020, 04/04/2019, Additional history exists DIABETES [...] Documents on File Type Date Recorded Patient Copyright Clerk Expl anation Advanced Directive service a [...] 08/13/2009 12:00 AM LIVING WILL Power of Health Service Worker 08/13/2009 12:00 AM DOMONIQUE R OF PLATE PRINTER DURABLE HEALTH POA AND HEALTH CARE TREATMENT INSTR Power of Health Service Worker 08/13/2009 12:00 AM DOMONIQUE R OF PLATE PRINTER DURABLE HEALTH CARE POA Care Teams Certified Rehabilitation Counselor Relationship Specialty Start Date End Date Bj Mario, DO [address] [place] [address] PCP - General Family Medicine 11/28/16 documented as of this encounter
--- OUTSIDE RECORDS SUMMARY | 2023-01-22 22:53 | External Medical Summary | Summary of Care ---
Author Name Unknown Organization [place] [address] Care Team Providers Care Cfo Controller Name Role Phone Bj Mario DO Primary Care Provider [phone] Encounter Details Date Type Department Care Team Description 07/28/2021 Scan Encounter Family Practice [facility] [place] [address] [place] [address] Bj Mario DO 200 [facility] [place] [address] <No scans attached> Allergies No known active allergiesdocumented as of this encounter (statuses as of 07/29/2021) Medications Medication Sig Dispensed Refills Start Date End Date Status ASPIRIN 81 MG PO CHEW One pill by mouth once a day with food 100 5 08/06/2008 Active VITAMIN D 1000 UNIT PO CAPSIndications:Carmel min D deficiency 1 capsule daily 30 Cap 11 10/13/2009 Active nitroglycerin (NITROSTAT) 0.4 MG SUBLIndications:Lap Winder jose alberto ischemic heart disease 1 every [...] as of this encounter (statuses as of 07/29/2021) Active Problems Problem Noted Date Chronic kidney disease, stage 3b 021 Overview: Per CKD protocol 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 09/29/2020 Overview: Per CKD protocol History of deep vein thrombosis (DVT) of lower extremity 09/08/2016 Status post insertion of drug eluting co ronary artery stent 04/07/2015 Overview: 2009, DUS placed in the mid RCA at [facility] Asymptomatic bilateral carotid artery st enosis 06/10/2014 Raynaud phenomenon 06/13/2011 Knee joint replacement status 01/13/2011 Overview: 2014, right Dr Ricardo [facility] 2011: left Dr Priya Ricardo [facility] Dyslipidemia, goal LDL below 70 09/21/19 11 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 neurogenic claudication 02/17/2010 Vitamin D deficiency 10/13/2009 Chronic ischemic heart disease 0 S/P angioplasty with stent 06/30/2009 Overview: 07/01/2009 DUS in the RCA at [facility] Non-toxic multinodular goiter 04/21/2009 Overview: [...] as of this encounter (statuses as of 07/29/2021) Resolved Problems Problem Noted Date Resolved Date [...] as of this encounter (statuses as of 07/29/2021) Immunizations Name Administration Dates Next Due COVID-19 [...] Office Visit Cardiology Yvon Harris, MICHAELC [address] [facility] [place] [address] 10/19/2021 [facility] Visit [facility], [facility] [address] Health Maintenance Due Date Last Done Comments Dexa Scan 10/30/2020 10/30/2013, 10/20, 08/24/2009, Additional history exists CKD PHOS USE SMARTSET 62318 11/17/202010/21, 07/15/2019, 08/13/2018, Additional history exists COVID-19 Vaccine (3 - Booster for Moderna series) 12/30/2020 07/30/2020, 07/02/2020 Influenza Vaccine (FLU shot) (#1) 2021 06/05/2020, 04/08/2020, 03/20/2019, Additional history exists Depression Screening, Annual for Pts 12 and Over 08/28/2021 08/28/2020 CKD GFR USE SMARTSET 83858 10/17/202104/19, 10/30/2020, 10/20/2020, Additional history exists CKD HGB USE SMARTSET 82498 10/30/202110/30, 04/06/2020, 04/04/2019, Additional history exists BASIC [...] Documents on File Type Date Recorded Patient Upfitter Expl anation Advanced Directive service a mike [...] 08/13/2009 12:00 AM LIVING WILL Power of Car Hopper 08/13/2009 12:00 AM DOMONIQUE Madsen OF MARINE INSURANCE CLAIM EXAMINER DURABLE HEALTH POA AND HEALTH CARE TREATMENT INSTR Power of Car Hopper 08/13/2009 12:00 AM DOMONIQUE Madsen OF MARINE INSURANCE CLAIM EXAMINER DURABLE HEALTH CARE POA Care Teams Cfo Controller Relationship Specialty Start Date End Date Bj Mario, DO 200 [facility] [place] [address] PCP - General Family Medicine 11/28/16 documented as of this encounter
--- OUTSIDE RECORDS SUMMARY | 2023-01-22 22:53 | External Medical Summary | Summary of Care ---
Author Name Unknown Organization [place] [address] Care Team Providers Care Glassine Machine Tender Name Role Phone Bj Mario DO Primary Care Provider [phone] Reason for Referral * Evaluate & Treat - Unlimited Visits (Within 10 days (routine)) - Pending Review Specialty Diagnoses / Procedures Referred By Love gamboa Referred To Contact Endocrinology/Metabolism / Endocrinology Diagnoses Hypercalcemia Yvon Harris PA-C [address] [employer] [place] [address] Referral ID Status Reason Start Date Expiration Date Visits Requested Visits Authorized [id number] Pending Review Specialty Services Required 04/21/2021 1 1 Question Answer Referral Priority Within 10 days (routine) For what condition is the patient being referred? Thyroid Issues For which thyroid condition are you referring? Other Thyroid Condition Comments Parathyroid Reason for Visit * Reason Onset Date Comments Test Results 04/21/2021 Encounter Details Date Type Department Care Team Description 04/21/2021 Telephone Cardiology, [facility] [address] [place] [address] Yvon Harris PA-C [address] [place] [address] Test Results Allergies No known active allergiesdocumented [...] 11 10/13/2009 Active nitroglycerin (NITROSTAT) 0.4 MG SUBLIndications:Molecular Modeler jose albreto ischemic heart disease 1 every 5 min [...] Telephone Encounter - ALESHA Chin - 04/22/2021 3:29 PM EST Spoke with pt. Pt is scheduled 09/08/[address] Phillips at [facility]. Referral and OV notes faxed [phone] * Telephone Encounter - ALESHA Chin - [...] Office Visit Cardiology Yvon Harris PA-C 132 [facility] [place] [address] 10/19/2021 Office Visit Family Medicine Bj Mario, DO 200 [facility] [place] [address] Scheduled Referrals Name Type Priority Associated Diagnoses Order Schedule ENDOCRINOLOGY REFERRAL OP Referral Within 10 days (routine) Hypercalcemia Ordered: 04/21/2021 Health Maintenance Due Date Last Done Comments Dexa Scan 10/30/2020 10/30/2013, 10/20, 08/24/2009, Additional history exists CKD PHOS USE SMARTSET 19924 11/17/202010/21, 07/15/2019, 08/13/2018, Additional history exists Influenza Vaccine (FLU shot) (#1) 2021 06/05/2020, 04/08/2020, 03/20/2019, Additional history exists COVID-19 Vaccine (3 - Booster for Moderna series) 01/30/2021 07/30/2020, 07/02/2020 CKD GFR USE SMARTSET 05489 10/17/202104/19, 10/30/2020, 10/20/2020, Additional history exists CKD HGB USE SMARTSET 56312 10/30/202110/30, 04/06/2020, 04/04/2019, Additional history exists DIABETES [...] Documents on File Type Date Recorded Patient Printer Helper Expl anation Advanced Directive service a mike [...] 08/13/2009 12:00 AM LIVING WILL Power of Commercial Energy Auditor 08/13/2009 12:00 AM DOMONIQUE R OF COSMETIC MAKER DURABLE HEALTH POA AND HEALTH CARE TREATMENT INSTR Power of Commercial Energy Auditor 08/13/2009 12:00 AM DOMONIQUE R OF COSMETIC MAKER [facility] POA Care Teams Glassine Machine Tender Relationship Specialty Start Date End Date Bj Mario, DO 200 [facility] [place] [address] PCP - General Family Medicine 11/28/16 documented as of this encounter
--- OUTSIDE RECORDS SUMMARY | 2023-01-22 22:53 | External Medical Summary | Summary of Care ---
Author Name Unknown Organization [place] [address] Care Team Providers Care Foxing Cutting Machine Operator Name Role Phone Bj Mario DO Primary Care Provider [phone] Encounter Details Date Type Department Care Team Description 08/02/2021 Scan Encounter Family Practice [facility] [place] [address] [place] [address] Bj Mario DO [address] [facility] [place] [address] <No scans attached> Allergies No known active allergiesdocumented as of this encounter (statuses as of 08/04/2021) Medications Medication Sig Dispensed Refills Start Date End Date Status ASPIRIN 81 MG PO CHEW One pill by mouth once a day with food 100 5 08/06/2008 Active VITAMIN D 1000 UNIT PO CAPSIndications:Carmel min D deficiency 1 capsule daily 30 Cap 11 10/13/2009 Active nitroglycerin (NITROSTAT) 0.4 MG SUBLIndications:Diamond Wheel Molder jose alberto ischemic heart disease 1 every [...] as of this encounter (statuses as of 08/04/2021) Active Problems Problem Noted Date Chronic kidney [...] as of this encounter (statuses as of 08/04/2021) Resolved Problems Problem Noted Date Resolved Date [...] as of this encounter (statuses as of 08/04/2021) Immunizations Name Administration Dates Next Due COVID-19 [...] Office Visit Cardiology Yvon Harris, MICHAELC 132 [facility] [place] [address] 10/19/2021 Office Visit Family Medicine Bj [facility], DO [facility] [address] Health Maintenance Due Date Last Done Comments Dexa Scan 10/30/2020 10/30/2013, 10/20, 08/24/2009, Additional history exists CKD PHOS USE SMARTSET 48243 11/17/202010/21, 07/15/2019, 08/13/2018, Additional history exists COVID-19 Vaccine (3 - Booster for Moderna series) 12/30/2020 07/30/2020, 07/02/2020 Influenza Vaccine (FLU shot) (#1) 2021 06/05/2020, 04/08/2020, 03/20/2019, Additional history exists Depression Screening, Annual for Pts 12 and Over 08/28/2021 08/28/2020 CKD GFR USE SMARTSET 29454 10/17/202104/19, 10/30/2020, 10/20/2020, Additional history exists CKD HGB USE SMARTSET 25548 10/30/202110/30, 04/06/2020, 04/04/2019, Additional history exists BASIC [...] Documents on File Type Date Recorded Patient Fundraising Sale Representative Expl anation Advanced Directive service a mike [...] 08/13/2009 12:00 AM LIVING WILL Power of Log Manager 08/13/2009 12:00 AM DOMONIQUE Madsen OF HAY STACKER DURABLE HEALTH POA AND HEALTH CARE TREATMENT INSTR Power of Log Manager 08/13/2009 12:00 AM DOMONIQUE Madsen OF HAY STACKER DURABLE HEALTH CARE POA Care Teams Foxing Cutting Machine Operator Relationship Specialty Start Date End Date Bj Mario, DO 200 [facility] [place] [address] PCP - General Family Medicine 11/28/16 documented as of this encounter
--- OUTSIDE RECORDS SUMMARY | 2023-01-22 22:54 | External Medical Summary | Summary of Care ---
Author Name Unknown Organization [place] [address] Care Team Providers Care Pharmacist Per Diem Name Role Phone Bj Mario DO Primary Care Provider [phone] Reason for Visit * Reason Comments eRx-Medication Refill Encounter Details Date Type Department Care Team Description 10/09/2020 Refill Cardiology, [facility] [address] [place] [address] Chaim Harris PA-C [address] [place] [address] [phone] Allergies No Known Active Allergiesdocumented as of this encounter (statuses as of 10/12/2020) Medications Medication Sig Dispensed Refills Start Date [...] every evening 2.5 mL 5 12/03/2019 Active rOPINIRole HCl 0.25 MG Oral Tablet (REQUIP)Indication s:Restless legs syndrome take 1 tablet by mouth at bedtime 90 Tab 3 02/12/2020 Active Lisinopril 10 MG Oral Tablet (PRINIVIL)Indicati ons: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),Edema take 1 tablet by mouth once daily 90 Tab 3 03/26/2020 Active Famotidine 20 MG Oral Tablet (Pepcid)Indication s:Gastroesophageal reflux disease without esophagitis Take 1 Tab by mouth 2 times a day. 60 Tab 11 04/08/2020 Active Metoprolol Succinate ER 25 MG Oral Tablet Extended Release 24 Hour (toPROL XL)Indications:Chr onic ischemic heart disease Take 0.5 Tabs by mouth daily. 45 Tab 3 04/08/2020 Active Meclizine HCl 12.5 MG Oral Tablet [...] mouth daily. 30 Tab 11 10/06/2020 Active amLODIPine Besylate 2.5 MG Oral Tablet (Norvasc) take 1 tablet by mouth once daily 31 Tab 5 10/12/2020 Active amLODIPine Besylate 2.5 MG Oral Tablet (NORVASC) Take 1 Tab by mouth daily. 31 Tab 5 04/06/2020 10/12/2020 Discontinued documented as of this encounter (statuses as of 10/12/2020) Active Problems Problem Noted Date 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 09/29/2020 Overview: Per CKD protocol History of deep vein thrombosis (DVT) of lower extremity 09/08/2016 Status post insertion of drug eluting co ronary artery stent 04/07/2015 Overview: 2009, DUS placed in the mid RCA at [facility] Asymptomatic bilateral carotid artery st enosis 06/10/2014 Raynaud phenomenon 06/13/2011 Knee joint replacement status 01/13/2011 Overview: 2014, right Dr Ricardo [facility] 2011: left Dr Priya Ricardo [facility] Dyslipidemia, goal LDL below 70 09/21/19 11 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 neurogenic claudication 02/17/2010 Vitamin D deficiency 10/13/2009 Chronic ischemic heart disease 0 S/P angioplasty with stent 06/30/2009 Overview: 07/01/2009 DUS in the RCA at [facility] Non-toxic multinodular goiter 04/21/2009 Overview: seen on [...] as of this encounter (statuses as of 10/12/2020) Resolved Problems Problem Noted Date Resolved Date [...] as of this encounter (statuses as of 10/12/2020) Immunizations Name Administration Dates Next Due COVID-19 mRNA, LNP-s, No Pre serve, 2-Dose Series (Moderna) 07/30/2020,07/02/2020 Pneumococcal Conjugate Vacc, 13 Valent (Prevnar) 09/22/2014 Pneumococcal Polysaccharide PPV23 (Pneumovax) 03/12/2002 Seasonal Influenza, Quadriva lent, No Preserve, 6 Mons & Above, IM 03/14/2018,03/23/2017 Seasonal Influenza, Quadriva lent, No Preserve, Adjuvanted, 65+ Yrs, IM 06/05/2020,04/08/2020 Seasonal Influenza, Quadriva lent, No Preserve, IM 04/11/2016,04/06/2015 Seasonal Influenza, Trivalen t, Adjuvanted, 65+ yrs 03/20/2019 Seasonal Influenza, Trivalen t, with Preserve, 3yr & Above, Split 03/10/2014,04/25/2013,03/20/2012,03/18,02/17/2010,02/04/2009,04/28/2008 ,03/30/2007,02/22/2007,03/01/2006,02/20,03/12/2002 TD, Preservative Free 04/21/2012,04/28/2008 TDAP (age 10 and older)(Boostrix) 08/28/2018 Varicella Zoster Vaccine (Adult) 06/11/2008 Zoster Vaccine Recombinant (Shingrix) 02/26/2020 ,11/18/2019 documented as of this encounter Social History Tobacco Use Types Packs/Day Years Used Date Never Smoker Smokeless Tobacco: Never Used Alcohol Use Drinks/Week oz/Week Comments Yes occ-once every couple of months Food Insecurity Answer Date Recorded Within the past 12 months, y ou worried that your food would run out before you got money to buy more. Never true Within the past 12 months, t he food you bought just didn't last and you didn't have money to get more. Never true Sex Assigned at Date Recorded Female 09/14/2018 8:42 AM E DT Job Start Date Occupation Industry Not on file Not on file Not on file documented as of this encounter Miscellaneous Notes * Telephone Encounter - Chaim Harris PA-C - 10/12/2020 12:09 PM EDT Signed Prescriptions: Disp Refills amLODIPine Besylate 2.5 MG Oral Tablet (No*31 Tab 5 Sig: take 1 tablet by mouth once daily Authorizing Provider: CHAIM HARRIS * Telephone Encounter - Jace Gonzalez RN - 10/12/2020 9:01 AM EDT Pending Prescriptions: Disp Refills amLODIPine Besylate 2.5 MG Oral Tablet (N*31 Tab 5 Sig: take 1 tablet by mouth once daily * Telephone Encounter - Jaec Gonzalez RN - 10/12/2020 9:00 AM EDT Pending Prescriptions: Disp Refills amLODIPine Besylate 2.5 MG Oral Tablet (N*31 Tab 5 Sig: take 1 tablet by mouth once daily Last Office/Telemedicine Visit: 07/07/2020 Next Office Visit: 01/04/2021 Scheduled Provider(s): Chaim Harris PA-C Last medication order date:04/06/2020 Have you choosen a preferred pharm?? yes [...] 3b chronic kidney disease (HCC) I12.9, N18.32 Labs: Lab Results Component Value Date/Time CREATININE - [facility] 1.4 (H) 09/15/2020 08:32 AM CREATININE - [facility] 1.3 (H) 04/06/2020 10:20 AM CREATININE, RANDOM URINE - [facility] 195 04/11/2016 08:47 AM CREATININE-OUTSIDE LAB 1.53 (A) 08/13/2018 Lab Results Component Value Date/Time POTASSIUM 4.0 08/05/1996 07:45 AM POTASSIUM - [facility] 4.6 09/15/2020 08:32 AM POTASSIUM - [facility] 4.6 04/06/2020 10:20 AM POTASSIUM-OUTSIDE LAB 3.9 08/13/2018 Lab Results Component Value Date/Time TSH - [...] Lab Results Component Value Date/Time ALT - [facility] 14 04/06/2020 10:20 AM Hemoglobin AIC Results: No results found for: HEMOGLOBIN A1C documented in this encounter Plan of Treatment Upcoming Encounters Date Type Specialty Care Team Description 10/20/2020 Laboratory [facility] [place] [address] [place] [address] [phone] 01/04/2021 Office Visit Cardiology Chaim Harris PA-C 132 [facility] [place] [address] [phone] 04/19/2021 Office Visit Family Medicine Bj Mario, [address] [place] [address] [phone] 09/09/2021 Imaging Radiology Health Maintenance Due Date Last Done Comments Dexa Scan 10/30/2020 10/30/2013, 10/20, 08/24/2009, Additional history exists DIABETES SCREEN EVERY 3 YRS-AGE 45 AND ABOVE 09/16/2023 09/15/2020, 07/02/2020, 04/06/2020, Additional history exists DTaP,Tdap,and Td Vaccines (2 - Td) 08/28/2028 08/28/2018, 04/21/2012, 04/28/2008 Pneumococcal Vaccine: 65+ Years Completed 09/22/2014, 03/12/2002 Zoster Vaccines Completed 02/26/2020, 10/21, 06/11/2008 Influenza Vaccine (FLU shot) Completed , 04/08/2020, 03/20/2019, Additional history exists COVID-19 Vaccine Completed 07/30/2020, 07/02/2020 MENINGOCOCCAL (MENACTRA/MENVEO) Aged Out No longer eligible based on patient's age to complete this topic documented as of this encounter Implants Not on filedocumented as of this encounter Advance Directives Documents on File Type Date Recorded Patient Silverware Buffer Expl anation Advance Directives and Living Will 08/13/2009 12:00 AM LIVING WILL Power of Superintendent Maintenance 08/13/2009 12:00 AM DOMONIQUE R OF PULLMAN CAR CLERK DURABLE HEALTH POA AND HEALTH CARE TREATMENT INSTR Power of Superintendent Maintenance 08/13/2009 12:00 AM DOMONIQUE R OF PULLMAN CAR CLERK DURABLE HEALTH CARE POA Advanced Directive service a mike default Advanced Directive Advanced Directive Advanced Directive Advanced Directive Advanced Directive Advanced Directive Advanced Directive Advanced Directive Advanced Directive Advanced Directive Advanced Directive Advanced Directive 09/01/2016 8:20 AM Advanced Directive Advanced Directive Advanced Directive Advanced Directive Advanced Directive Advanced Directive Advanced Directive Advanced Directive Advanced Directive Advanced Directive Advanced Directive Advanced Directive Advanced Directive Advanced Directive Advanced Directive Advanced Directive Advanced Directive Advanced Directive Advanced Directive Advanced Directive Advanced Directive Advanced Directive Advanced Directive Advanced Directive Advanced Directive Advanced Directive
--- OUTSIDE RECORDS SUMMARY | 2023-01-22 22:54 | External Medical Summary ---
Author Name Unknown Address Unknown Organization K09:[facility] [place] [address] Laboratory Report Ordering Provider Test Date Status ANIVAL HANKINS 10/30/2020 15:15:57 Final Observation Date Value Abnormality Reference (Units ) Status WBC, Total 10/30/2020 15:15:57 7.02 4.00-10.8 0 (K/uL) Final RBC 10/30/2020 15:15:57 4.17 3.85-5.15 (M/uL) Final Hemoglobin 10/30/2020 15:15:57 13.1 12.0-15.3 (g/dL) Final HCT 10/30/2020 15:15:57 39.3 36.0-45.2 (%) Final MCV 10/30/2020 15:15:57 94.2 81.5-97.5 (fL) Final MCH 10/30/2020 15:15:57 31.4 27.0-34.0 (pg) Final MCHC 10/30/2020 15:15:57 33.3 32.0-36.0 (g/dL) Final RDW 10/30/2020 15:15:57 12.9 11.5-15.5 (%) Final Platelets 10/30/2020 15:15:57 300 140-400 (K /uL) Final MPV 10/30/2020 15:15:57 10.0 6.6-11.1 ( fL) Final Performing Location [facility] [place] [address]
--- OUTSIDE RECORDS SUMMARY | 2023-01-22 22:54 | External Medical Summary | Summary of Care ---
Author Name Unknown Organization [place] [address] Care Team Providers Care Face Hardener Name Role Phone Nhi Florian DO Primary Care Provider [phone] Reason for Visit * Reason Comments eRx-Medication Refill Encounter Details Date Type Department Care Team Description 04/09/2021 Refill Family Practice [facility] [place] [address] [facility] [place] [address] Nhi Florian DO [address] [place] [address] Gastroesophageal reflux disease without esophagitis Allergies No known active allergiesdocumented as of this encounter (statuses as of 04/09/2021) Medications Medication Sig Dispensed Refills Start Date [...] every evening 2.5 mL 5 12/03/2019 Active Metoprolol Succinate ER 25 MG Oral [...] a day 180 Tablet 2 04/09/2021 Active Famotidine 20 MG Oral Tablet (Pepcid)Indication s:Gastroesophageal reflux disease without esophagitis Take 1 Tab by mouth 2 times a day. 60 Tab 11 04/08/2020 1 Discontinued documented as of this encounter (statuses as of 04/09/2021) Active Problems Problem Noted Date Chronic kidney [...] [facility] 2011: left Dr Priya Ricardo [facility] Dyslipidemia, [...] as of this encounter (statuses as of 04/09/2021) Resolved Problems Problem Noted Date Resolved Date [...] as of this encounter (statuses as of 04/09/2021) Immunizations Name Administration Dates Next Due COVID-19 [...] Comment: occ-once every couple of months 07/15/2019 Sex Assigned at Date Recorded Female 09/14/2018 8:42 AM E DT Job Start Date Occupation Industry Not on file Not on file Not on file documented as of this encounter Miscellaneous Notes * Telephone Encounter - Jana Roth RPh - 04/09/2021 10:40 AM EST Signed Prescriptions: Disp Refills Famotidine 20 MG Oral Tablet (Pepcid) 180 Ta*2 Sig: take 1 tablet by mouth twice a dayAuthorizing Provider: NHI FLORIAN User: JANA ROTH------- documented in this encounter Plan of Treatment Upcoming Encounters Date Type Specialty Care Team Description 04/16/2021 Office Visit Cardiology Yvon Harris PA-C [address] [facility] [place] [address] 04/19/2021 Office Visit Family Medicine Nhi Florian, DO 200 [facility] [place] [address] 08/04/2021 Office Visit Cardiology Yvon Harris PA-C [address] [place] [address] 09/09/2021 Imaging Radiology Health Maintenance Due Date Last Done Comments Dexa Scan 10/30/2020 10/30/2013, 10/20, 08/24/2009, Additional history exists CKD PHOS USE SMARTSET 06453 11/17/202010/21, 07/15/2019, 08/13/2018, Additional history exists Influenza Vaccine (FLU shot) (#1) 2021 06/05/2020, 04/08/2020, 03/20/2019, Additional history exists COVID-19 Vaccine (3 - Booster for Moderna series) 01/30/2021 07/30/2020, 07/02/2020 CKD GFR USE SMARTSET 77550 05/01/202110/30, 10/20/2020, 09/15/2020, Additional history exists CKD HGB USE SMARTSET 78970 10/30/202110/30, 04/06/2020, 04/04/2019, Additional history exists DIABETES [...] Documents on File Type Date Recorded Patient Replanting Machine Crewman Expl anation Advanced Directive service a mike [...] 08/13/2009 12:00 AM LIVING WILL Power of Rotary Rock Drilling Machine Operator 08/13/2009 12:00 AM DOMONIQUE R OF SEAT PACK INSPECTOR DURABLE HEALTH POA AND HEALTH CARE TREATMENT INSTR Power of Rotary Rock Drilling Machine Operator 08/13/2009 12:00 AM DOMONIQUE R OF SEAT PACK INSPECTOR DURABLE HEALTH CARE POA Care Teams Face Hardener Relationship Specialty Start Date End Date Nhi Florian, DO [address] [place] [address] PCP - General Family Medicine 11/28/16 documented as of this encounter
--- OUTSIDE RECORDS SUMMARY | 2023-01-22 22:54 | External Medical Summary | Summary of Care ---
Author Name Unknown Organization [place] [address] Care Team Providers Care Evs Manager Name Role Phone Bj Mario DO Primary Care Provider [phone] Reason for Visit * Reason Onset Date Comments Edema 03/15/2021 LM 03/16 Encounter Details Date Type Department Care Team Description 03/15/2021 Telephone Cardiology, [facility] [address] [place] [address] Yvon Harris PA-C [address] [place] [address] [phone] Edema (LM 03/16) Allergies No Known Active Allergiesdocumented as of this encounter (statuses as of 03/17/2021) Medications Medication Sig Dispensed Refills Start Date [...] every evening 2.5 mL 5 12/03/2019 Active Lisinopril 10 MG Oral Tablet (PRINIVIL)Indicatio ns: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),Edema take 1 tablet by mouth once daily 90 Tab 3 03/26/2020 Active Famotidine 20 MG Oral Tablet (Pepcid)Indications :Gastroesophageal reflux disease without esophagitis Take 1 Tab by mouth 2 times a day. 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 100 Tab 3 03/17/2021 Active amLODIPine Besylate 2.5 MG Oral Tablet (Norvasc) take 1 tablet by mouth once daily 31 Tab 5 10/12/2020 03/17/2021 Discontinued (Adverse reaction) documented as of this encounter (statuses as of 03/17/2021) Active Problems Problem Noted Date Chronic kidney [...] as of this encounter (statuses as of 03/17/2021) Resolved Problems Problem Noted Date Resolved Date [...] as of this encounter (statuses as of 03/17/2021) Immunizations Name Administration Dates Next Due COVID-19 [...] encounter Miscellaneous Notes * Telephone Encounter - Kathy José OSA - 03/17/2021 11:05 AM EDT Spoke with pt. Pt is scheduled 04/16/21 with Yvon. * Telephone Encounter - Alvaro León RN - 03/17/2021 10:47 AM EDT That will be okay, thank you * Telephone Encounter - Kathy José OSA - 03/17/2021 9:28 AM EDT No openings with Yvon until 04/16 which is over 4 weeks. Please advise. * Telephone Encounter - Alvaro León RN - 03/17/2021 8:57 AM EDT Spoke to pt by phone (cold transfer). Shared guidance from Yvon: 1. Discontinue amlodipine (2.5 mg/day) 2. Add isosorbide mononitrate 30 mg daily in the morning. 3. Double furosemide x3 days (today, and Monday), then resume prior dosing starting Monday. 4. Move up cardiology appointment. Pt agrees with plan. All questions were answered to the pt's satisfaction. Scheduling please schedule pt with Yvon in ~ 2-3 weeks. Alvaro León RN * Telephone Encounter - Phoebe Penny LPN - 03/16/2021 3:49 PM EDT Message left for the pt to call back. Phoebe Penny LPN * Telephone Encounter - Yvon Harris PA-C - 03/15/2021 4:27 PM EDT 1. Discontinue amlodipine (2.5 mg/day). 2. Add isosorbide 30 mg daily in the morning. 3. Double furosemide x3 days then resume prior dosing. 4. Move up cardiology appointment. Yvon Harris PA-C Department of Cardiology * Telephone Encounter - Vinita West LPN - 03/15/2021 8:34 AM EDT Pt calling in with continued edema of her ankles. Has not weighed herself lately , so is unsure of weight gain. Upon review of chart, it is documented at last visit to discontinue amlodipine and retry imdur, however she is unsure if this was actually done. Was not changed on med list. Pt advised to check her medication bottles and weight for when chart is reviewed by provider. Denies dyspnea Yvon, Please advise documented in this encounter Plan of Treatment Upcoming Encounters Date Type Specialty Care Team Description 04/16/2021 Office Visit Cardiology Yvon Harris PA-C [address] [place] [address] [phone] 04/19/2021 Office Visit Family Medicine Bj Mario, DO [address] [facility] [address] [phone] 08/04/2021 Office Visit Cardiology Yvon Harris PA-C [address] [place] [place] [address] [phone] 09/09/2021 Imaging Radiology Health Maintenance Due Date Last Done Comments Dexa Scan 10/30/2020 10/30/2013, 10/20, 08/24/2009, Additional history exists CKD PHOS USE SMARTSET 07784 11/17/202010/21, 07/15/2019, 08/13/2018, Additional history exists Influenza Vaccine (FLU shot) (#1) 2021 06/05/2020, 04/08/2020, 03/20/2019, Additional history exists CKD GFR USE SMARTSET 14946 05/01/202110/30, 10/20/2020, 09/15/2020, Additional history exists CKD HGB USE SMARTSET 24559 10/30/202110/30, 04/06/2020, 04/04/2019, Additional history exists DIABETES SCREEN EVERY 3 YRS-AGE 45 AND ABOVE 10/31/2023 10/30/2020, 10/20/2020, 09/15/2020, Additional history exists DTaP,Tdap,and Td Vaccines (2 - Td) 08/28/2028 08/28/2018, 04/21/2012, 04/28/2008 Pneumococcal Vaccine: 65+ Years Completed 09/22/2014, 03/12/2002 Zoster Vaccines Completed 02/26/2020, 10/21, 06/11/2008 COVID-19 Vaccine Completed 07/30/2020, 07/02/2020 MENINGOCOCCAL (MENACTRA/MENVEO) Aged Out No longer eligible based on patient's age to complete this topic documented as of this encounter Implants Not on filedocumented as of this encounter Visit Diagnoses Diagnosis Chronic ischemic heart disease- Primary Chronic ischemic heart disease, unspecified documented in this encounter Advance Directives Documents on File Type Date 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
--- OUTSIDE RECORDS SUMMARY | 2023-01-22 22:54 | External Medical Summary | Summary of Care ---
Author Name Unknown Organization [place] [address] Care Team Providers Care Tacker Off Name Role Phone Bj Mario DO Primary Care Provider [phone] Reason for Referral * Precert (Within 24 hrs (call dept; emergent)) Status Reason Specialty Diagnoses / Procedures Referred By Contact Referred To Contact Pending Review Radiology Diagnoses Abdominal pain, left lower quadrant Abdominal guarding Procedures CT ABD/PELVIS WO IV/ORAL CONTRAST Bj Mario DO [address] [facility] [place] [address] Electronically signed by Bj Mario DO at Reason for Visit * Reason Comments Abdominal Pain Encounter Details Date Type Department Care Team Description 10/30/2020 Office Visit Family Practice [facility] [address] [facility] [place] [address] Bj Mario DO [address] [facility] [place] [address] [phone] Abdominal pain, left lower quadrant*; Abdominal guarding; 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 neurogenic claudication; Asymptomatic bilateral carotid artery stenosis; 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); HTN, goal below 140/90 Allergies No Known Active Allergiesdocumented as of this encounter (statuses as of 10/30/2020) Medications Medication Sig Dispensed Refills Start Date End Date Status ASPIRIN 81 MG PO CHEW One pill by mouth once a day with food 100 5 08/06/2008 Active VITAMIN D 1000 UNIT PO CAPSIndications:Vitami n D deficiency 1 capsule daily 30 Cap 11 10/13/2009 Active nitroglycerin (NITROSTAT) 0.4 MG SUBLIndications:Chroni c ischemic heart disease 1 every 5 min as needed with chest pain up to 3 doses in 15 minutes 25 Tab 11 10/09/2017 Active acetaminophen (TYLENOL EXTRA STRENGTH) 500 MG Tablet Take 500 mg by mouth every 6 hours as needed for Pain. 0 Active cyclobenzaprine (FLEXERIL) 5 MG TabletIndications:Spas m of muscle Take 1 Tab by mouth 2 times a day as needed for Muscle spasms. 60 Tab 5 03/20/2019 Active Diclofenac Sodium (VOLTAREN) 1 % gelIndications:Cervica lgia Place 4 g topically on the skin 4 times a day. To affected area as directed. 100 g 5 09/03/2019 Active travoprost, MAYA Free, (TRAVATAN Z) 0.004 % ophthalmic solution instill 1 drop into both eyes every evening 2.5 mL 5 12/03/2019 Active rOPINIRole HCl 0.25 MG Oral Tablet (REQUIP)Indications:Re stless legs syndrome take 1 tablet by mouth at bedtime 90 Tab 3 02/12/2020 Active Lisinopril 10 MG Oral Tablet (PRINIVIL)Indications: 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),Edema take 1 tablet by mouth once daily 90 Tab 3 03/26/2020 Active Famotidine 20 MG Oral Tablet (Pepcid)Indications:Ga stroesophageal reflux disease without esophagitis Take 1 Tab by mouth 2 times a day. 60 Tab 11 04/08/2020 Active Metoprolol Succinate ER 25 MG Oral Tablet Extended Release 24 Hour (toPROL XL)Indications:Chronic ischemic heart disease Take 0.5 Tabs by mouth daily. 45 Tab 3 04/08/2020 Active Meclizine HCl 12.5 MG Oral Tablet (ANTIVERT)Indications: Benign paroxysmal vertigo of left ear Take 1 Tab by mouth 3 times a day as needed for Dizziness. 30 Tab 0 04/25/2020 Active Rosuvastatin Calcium 20 MG Oral Tablet (Crestor)Indications:D yslipidemia, goal LDL below 70 take 1 tablet by mouth once daily 90 Tab 2 08/12/2020 Active traMADol HCl 50 MG Oral Tablet (Ultram)Indications:Ce rvicalgia,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 neurogenic claudication Take 1 Tab by mouth daily as needed for Pain, Severe. 30 Tab 0 10/06/2020 Active Furosemide 20 MG Oral Tablet (Lasix)Indications:HTN , goal below 140/90 Take 1 Tab by mouth daily. 30 Tab 11 10/06/2020 Active amLODIPine Besylate 2.5 MG Oral Tablet (Norvasc) take 1 tablet by mouth once daily 31 Tab 5 10/12/2020 Active documented as of this encounter (statuses as of 10/30/2020) Active Problems Problem Noted Date 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 09/29/2020 Overview: Per CKD protocol History of deep vein thrombosis (DVT) of lower extremity 09/08/2016 Status post insertion of drug eluting co ronary artery stent 04/07/2015 Overview: 2009, DUS placed in the mid RCA at [facility] Asymptomatic bilateral carotid artery st enosis 06/10/2014 Raynaud phenomenon 06/13/2011 Knee joint replacement status 01/13/2011 Overview: 2014, right Dr Ricardo [facility] 2011: left Dr Priya Ricardo [facility] Dyslipidemia, goal LDL below 70 09/21/19 11 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 neurogenic claudication 02/17/2010 Vitamin D deficiency 10/13/2009 Chronic ischemic heart disease 0 S/P angioplasty with stent 06/30/2009 Overview: 07/01/2009 DUS in the RCA at [facility] Non-toxic multinodular goiter 04/21/2009 Overview: seen on [...] as of this encounter (statuses as of 10/30/2020) Resolved Problems Problem Noted Date Resolved Date [...] as of this encounter (statuses as of 10/30/2020) Immunizations Name Administration Dates Next Due COVID-19 [...] Sign Reading Time Taken Comments Blood Pressure 140/86 10/30/2020 2:22 PM EDT Pulse 72 10/30/2020 2:22 PM EDT Temperature 35.6 C (96.1 F) 10/30/2020 2:22 PM ED T Respiratory Rate 18 10/30/2020 2:22 PM EDT Oxygen Saturation - - Inhaled Oxygen Concentration - - Weight 89.4 kg (197 lb) 10/30/2020 2:22 PM EDT Height - - Body Mass Index 36.03 09/29/2020 9:01 AM EDT documented in this encounter Progress Notes * Bj Mario, - 10/30/2020 2:49 PM EDT Subjective: Eugenia Hu is a 85 year old female. Chief Complaint Patient presents with Abdominal Pain HPI: Told nurse belly pain for 2 weeks, told me 2 days. She describes it as a fullness of her abdomen. She also has pain on her L hip. The pain is a No numbness, tingling or burning. No N or V. Feelslike she could. She had a BM yesterday, more like diarrhea. Did not look to see if blood or dark black. She says it started about 2 weeks ago. We reviewed my note - she talked more about swelling then. Starting lasix has made her swelling better. PMHx, meds, and allergies reviewed Patient [...] 3b chronic kidney disease (HCC) I12.9, N18.32 Current Outpatient Medications Medication Sig Dispense Refill amLODIPine Besylate 2.5 MG Oral Tablet (Norvasc) take 1 tablet by mouth once daily 31 Tab 5 Furosemide 20 MG Oral Tablet (Lasix) Take 1 Tab by mouth daily. 30 Tab 11 traMADol HCl 50 MG Oral Tablet (Ultram) Take 1 Tab by mouth daily as needed for Pain, Severe. 30 Tab 0 Rosuvastatin Calcium 20 MG Oral Tablet (Crestor) take 1 tablet by mouth once daily 90 Tab 2 Meclizine HCl 12.5 MG Oral Tablet (ANTIVERT) Take 1 Tab by mouth 3 times a day as needed for Dizziness. 30 Tab 0 Famotidine 20 MG Oral Tablet (Pepcid) Take 1 Tab by mouth 2 times a day. 60 Tab 11 Metoprolol Succinate ER 25 MG Oral Tablet Extended Release 24 Hour (toPROL XL) Take 0.5 Tabs by mouth daily. 45 Tab 3 Lisinopril 10 MG Oral Tablet (PRINIVIL) take 1 tablet by mouth once daily 90 Tab 3 rOPINIRole HCl 0.25 MG Oral Tablet (REQUIP) take 1 tablet by mouth at bedtime 90 Tab 3 travoprost, MAYA Free, (TRAVATAN Z) 0.004 % ophthalmic solution instill 1 drop into both eyes every evening 2.5 mL 5 Diclofenac Sodium (VOLTAREN) 1 % gel Place 4 g topically on the skin 4 times a day. To affected area as directed. 100 g 5 cyclobenzaprine (FLEXERIL) 5 MG Tablet Take 1 Tab by mouth 2 times a day as needed for Muscle spasms. 60 Tab 5 acetaminophen (TYLENOL EXTRA STRENGTH) 500 MG Tablet Take 500 mg by mouth every 6 hours as needed for Pain. nitroglycerin (NITROSTAT) 0.4 MG SUBL 1 every 5 min as needed with chest pain up to 3 doses in 15 minutes 25 Tab 11 VITAMIN D 1000 UNIT PO CAPS 1 capsule daily 30 Cap 11 ASPIRIN 81 MG PO CHEW One pill by mouth once a day with food 100 5 Review of patient's allergies indicates: No Known Allergies OBJECTIVE: BP 140/86 | Pulse 72 | Temp 35.6 C (96.1 F) (Tympanic) | Resp 18 | Wt 89.4 kg (197 lb) | BMI 36.03 kg/m | BSA 1.98 m Estimated body mass index is 36.03 kg/m as calculated from the following: Height as of 09/29/20: 1.575 m (5' 2"). Weight as of this encounter: 89.4 kg (197 lb). BP Readings from Last 3 Encounters: 10/30/20 140/86 10/06/20 134/62 09/15/20 124/60 Wt Readings from Last 3 Encounters: 10/30/20 89.4 kg (197 lb) 10/06/20 90.6 kg (199 lb 12.8 oz) 09/29/20 89.4 kg (197 lb) ROS: Negative except for above PHYSICAL EXAM: General: alert, healthy and no distress Head: Normocephalic, No masses, lesions, tenderness or abnormalities Heart: regular rate & rhythm, no murmurs and no gallops Lungs: chest symmetric with normal AP diameter, no chest deformities noted, no chest wall tenderness, lungs clear to auscultation Abdomen: no masses or organomegaly, distended and hyperactive bowel sounds, guarding on exam with pain to palpation over her left side of her abdomen more focused in the lower quadrant Back: back symmetric, no curvature, no costovertebral angle tenderness, range of motion is normal Extremities: less than 2 second capillary refill, no joint deformities, effusion, or inflammation ASSESSMENT/Plan Abdominal pain, left lower quadrant (Primary) - COMPREHENSIVE METABOLIC PANEL; Future; Expected date: 10/30/2020 - CBC; Future; Expected date: 10/30/2020 - LIPASE; Future; Expected date: 10/30/2020 - CT ABD/PELVIS WO IV/ORAL CONTRAST Abdominal guarding - COMPREHENSIVE METABOLIC PANEL; Future; Expected date: 10/30/2020 - CBC; Future; Expected date: 10/30/2020 - LIPASE; Future; Expected date: 10/30/2020 - CT ABD/PELVIS WO IV/ORAL CONTRAST 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 neurogenic claudication Asymptomatic bilateral carotid artery stenosis 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) HTN, goal below 140/90 Get blood work here now, CT done stat for possible diverticulitis vs bowel blockage. Cell phone number placed on the order to take further care once resulted. The above was discussed and understanding was expressed. Bj Mario DO documented in this encounter Nursing Notes * Loretta Root LPN - 10/30/2020 2:20 PM EDT Patient c/o pain in the left side of her abdomen and her left hip. She would like to have x-rays ofher abdomen and hip. Pain started about 2 weeks ago, got much worse yesterday. She says it feels like she's got a rock in her belly. Moving her bowels and voiding normally. Nothing seems to make it better or worse. documented in this encounter Plan of Treatment Upcoming Encounters Date Type Specialty Care Team Description 10/30/2020 Imaging Radiology 01/04/2021 Office Visit Cardiology Yvon Harris PA-C [address] [facility] [place] [address] [phone] 04/19/2021 Office Visit Family Medicine Bj Mario DO [address] [facility] [place] [address] [phone] 09/09/2021 Imaging Radiology Pending Results Name Type Priority Associated Diagnoses Date /Time COMPREHENSIVE METABOLIC PANEL Lab Routine Abdominal pain, left lower quadrant Abdominal guarding 10/30/2020 3:15 PM EDT CBC Lab Routine Abdominal pain, left lower quadrant Abdominal guarding 10/30/2020 3:15 PM EDT LIPASE Lab Routine Abdominal pain, left lower quadrant Abdominal guarding 10/30/2020 3:15 PM EDT Scheduled Orders Name Type Priority Associated Diagnoses Orde r Schedule COMPREHENSIVE METABOLIC PANEL Lab Routine Abdominal pain, left lower quadrant Abdominal guarding Expected: 10/30/2020 (Approximate), Expires: 10/30/2021 CBC Lab Routine Abdominal pain, left lower quadrant Abdominal guarding Expected: 10/30/2020 (Approximate), Expires: 10/30/2021 LIPASE Lab Routine Abdominal pain, left lower quadrant Abdominal guarding Expected: 10/30/2020 (Approximate), Expires: 10/30/2021 CT ABD/PELVIS WO IV/ORAL CONTRAST Medical Imaging STAT Abdominal pain, left lower quadrant Abdominal guarding Ordered: 10/30/2020 Health Maintenance Due Date Last Done Comments Dexa Scan 10/30/2020 10/30/2013, 10/20, 08/24/2009, Additional history exists DIABETES SCREEN EVERY 3 YRS-AGE 45 AND ABOVE 10/21/2023 10/20/2020, 09/15/2020, 07/02/2020, Additional history exists DTaP,Tdap,and Td Vaccines (2 [...] as of this encounter Visit Diagnoses Diagnosis Abdominal pain, left lower quadrant- Primary Abdominal guarding Other symptoms involving abdomen and pelvis 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 neurogenic claudication Spinal stenosis, lumbar region, without neurogenic claudication Asymptomatic bilateral carotid artery stenosis Occlusion and stenosis of multiple and bilateral precerebral arteries without mention of cerebral infarction 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) HTN, goal below 140/90 Unspecified essential hypertension documented in this encounter Advance Directives Documents on File Type Date Recorded 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
--- OUTSIDE RECORDS SUMMARY | 2023-01-22 22:54 | External Medical Summary ---
Author Name Unknown Address Unknown Organization K01:[facility] - [address] [place] [address] Laboratory Report Ordering Provider Test Date Status SRINI RUCKER 04/19/2021 09:18:38 Final Observation Date Value Abnormality Reference (Units ) Status LDL, (direct) 04/19/2021 09:18:38 72 <=129 (mg/dL) Final Performing Location [facility] [address] [place] [address]
--- OUTSIDE RECORDS SUMMARY | 2023-01-22 22:54 | External Medical Summary ---
Author Name Unknown Address Unknown Organization K09:[facility] [place] [address] Laboratory Report Ordering Provider Test Date Status NHIANIVAL 10/20/2020 09:11:51 Final Observation Date Value Abnormality Reference (Units ) Status BUN 10/20/2020 09:11:51 27 Above high normal 6-20 (mg/dL) Final Creatinine 10/20/2020 09:11:51 1.7 Above high normal 0.5-1.0 (mg/dL) Final Glomerular filtration rate/1.73 sq M.predicted [Volume Rate/Area] in Serum, Plasma or Blood by Creatinine-based formula (CKD-EPI) 10/20/2020 09:11:51 27.5 Below low normal >=60.0 (mL/min) Final Performing Location [facility] [place] [address]
--- OUTSIDE RECORDS SUMMARY | 2023-01-22 22:54 | External Medical Summary | Summary of Care ---
Author Name Unknown Organization [place] [address] Care Team Providers Care Media Consultant Outside Sales Name Role Phone Bj Mario Primary Care Provider [phone] Encounter Details Date Type Department Care Team Description 10/20/2020 Documentation Laboratory [place] [address] [place] [address] [place], [facility] [address] [place] [address] [phone] HTN, goal below 140/90 Allergies No Known Active Allergiesdocumented as of this encounter (statuses as of 10/23/2020) Medications Medication Sig Dispensed Refills Start Date [...] as of this encounter (statuses as of 10/23/2020) Active Problems Problem Noted Date 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 09/29/2020 Overview: Per CKD protocol History of deep vein thrombosis (DVT) of lower extremity 09/08/2016 Status post insertion of drug eluting co ronary artery stent 04/07/2015 Overview: 2010, DUS placed in the mid RCA at [...] goiter 04/21/2009 Overview: seen on US, repeat HTN, goal below 140/90 05/25/2006 Advance directive on file 01/19/2005 Overview: No, Advance Directive brochure given to patient. Hip joint replacement status 01/19/2005 Overview: right 2000, left 1992 Menopause Macular degeneration Overview: Ugo Simon MD Glaucoma of both eyes Overview: Paul Simon MD, drops used bilateral Both cataracts also documented as of this encounter (statuses as of 10/23/2020) Resolved Problems Problem Noted Date Resolved Date [...] as of this encounter (statuses as of 10/23/2020) Immunizations Name Administration Dates Next Due COVID-19 [...] on file documented as of this encounter Nursing Notes * Data, Entry - 10/21/2020 5:33 AM EDT Automated conversion to a Documentation Encounter documented in this encounter Miscellaneous Notes * Result QuickNote - Bj Mario DO - 10/23/2020 8:54 AM EDT Letter: I feel that your kidneys held up well enough to continue lasix if it is working for your swelling. documented in this encounter Plan of Treatment Upcoming Encounters Date Type Specialty Care Team Description 01/04/2021 Office Visit Cardiology Yvon Harris PA-C [address] [facility] [place] [address] [phone] 04/19/2021 Office Visit Family Medicine Bj Mario DO [address] [facility] [address] [phone] 09/09/2021 Imaging Radiology Health Maintenance Due Date [...] Procedure Name Priority Date/Time Associated Diagnosis Comments BASIC METABOLIC PANEL Routine 10/20/2020 9:11 AM EDT HTN, goal below 140/90 documented in this encounter Results * BASIC METABOLIC PANEL (10/20/2020 9:11 AM EDT) BUN 27(H) 6 - 20 mg/dL LABORATORY STAT E [facility] 56-02 Creatinine 1.7(H) 0.5 - 1.0 mg/dL LABORATORY [place] [id number] Estimated Glomerular Filtration Rate 27.5(L)Comment:If patient is , multiply estimated GFR by 1.159. >=60.0 mL/min LABORATORY [place] 56-02 Sodium 144 135 - 146 mmol/L [facility] [place] 56-02 Potassium 4.7 3.5 - 5.1 mmol/L LAB[facility]AT[facility] [place] 56-02 Chloride 107 98 - 107 mmol/L [facility] [place] 56-02 CO2 26 22 - 32 mmol/L [facility] [place] 56-02 Anion Gap 11 7 - 15 mmol/L LABORATORY [facility] 56-02 Glucose 113 70 - 120 mg/dL LABORATORY [place] 56-02 Calcium 10.0 8.4 - 10.2 mg/dL LABORATORY [place] 56-02 Specimen Blood - Venous blood specime n (specimen) LABORATORY [place] 56-[address] [place] [address] documented in this encounter Visit Diagnoses Diagnosis HTN, goal below 140/90 Unspecified essential hypertension documented in this encounter Advance Directives Documents on File Type Date Recorded Patient Household Manager Expl anation Advance Directives and Living Will 08/13/2009 12:00 AM LIVING WILL Power of Rate Inserter 08/13/2009 12:00 AM DOMONIQUE Madsen OF MIGRATORY FARM HAND DURABLE HEALTH POA AND HEALTH CARE TREATMENT INSTR Power of Rate Inserter 08/13/2009 12:00 AM DOMONIQUE R OF MIGRATORY FARM HAND [facility]A Advanced Directive service a [...]
--- OUTSIDE RECORDS SUMMARY | 2023-01-22 22:54 | External Medical Summary ---
Author Name Unknown Address Unknown Organization K09:[facility] [place] [address] Laboratory Report Ordering Provider Test Date Status ANIVAL HANKINS 10/30/2020 15:15:59 Final Observation Date Value Abnormality Reference (Units ) Status BUN 10/30/2020 15:15:59 16 6-20 (mg/dL) Final Creatinine 10/30/2020 15:15:59 1.5 Above high normal 0.5-1.0 (mg/dL) Final Glomerular filtration rate/1.73 sq M.predicted [Volume Rate/Area] in Serum, Plasma or Blood by Creatinine-based formula (CKD-EPI) 10/30/2020 15:15:59 32.3 Below low normal >=60.0 (mL/min) Final Performing Location [facility] [place] [address]
--- OUTSIDE RECORDS SUMMARY | 2023-01-22 22:54 | External Medical Summary ---
Author Name Unknown Address Unknown Organization [id number]:[facility] [place] [address] [place] [address] Laboratory Report Ordering Provider Test Date Status SRINI RUCKER 04/19/2021 09:18:38 Final Observation Date Value Abnormality Reference (Units ) Status Triglyceride 04/19/2021 09:18:38 193 Above high normal <=174 (mg/dL) Final Performing Location [facility]ATORY [facility] - [address] [place] [address]
--- OUTSIDE RECORDS SUMMARY | 2023-01-22 22:54 | External Medical Summary | Summary of Care ---
Author Name Unknown Organization [place] [address] Care Team Providers Care Pre School Manager Name Role Phone Bj Mario DO Primary Care Provider [phone] Reason for Visit * Reason Comments Follow Up 6 month follow up. E eva ongoing in legs- no big changes. Lightheaded- does not feel right in the head now. Denies chest pain, palpitations and SOB. Encounter Details Date Type Department Care Team Description 01/04/2021 Office Visit Cardiology, [facility] [address] [facility] [place] [address] Yvon Harris PA-C [address] [facility] [place] [address] [phone] Chronic ischemic heart disease*; S/P angioplasty with stent; 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); Dyslipidemia, goal LDL below 70; HTN, goal below 140/90 Allergies No Known Active Allergiesdocumented as of this encounter (statuses as of 01/07/2021) Medications Medication Sig Dispensed Refills Start Date [...] once daily 31 Tab 5 10/12/2020 Active Timolol Maleate 0.5 % Ophthalmic Solution (Timoptic) instill 1 drop into both eyes every morning 0 11/25/2020 Active documented as of this encounter (statuses as of 01/07/2021) Active Problems Problem Noted Date Chronic kidney [...] as of this encounter (statuses as of 01/07/2021) Resolved Problems Problem Noted Date Resolved Date [...] as of this encounter (statuses as of 01/07/2021) Immunizations Name Administration Dates Next Due COVID-19 [...] Sign Reading Time Taken Comments Blood Pressure 124/64 01/04/2021 10:29 AM EDT Pulse 68 01/04/2021 10:29 AM EDT Temperature 36.3 C (97.3 F) 01/04/2021 10:29 AM E DT Respiratory Rate 16 01/04/2021 10:29 AM EDT Oxygen Saturation - - Inhaled Oxygen Concentration - - Weight 89.9 kg (198 lb 4 oz) 01/04/2021 10:29 AM EDT Height - - Body Mass Index 36.26 09/29/2020 9:01 AM EDT documented in this encounter Progress Notes * Yvon Harris PA-C - 01/04/2021 10:45 AM EDT History of Present Illness: Eugenia Hu is an 85-year-old female who returns today for cardiology follow-up evaluation. "Sitting too much. Getting fat and old." Weight is up 7 pounds from last evaluation in this office in March 2020. No chest pain. No palpitations. + Dyspnea when carrying something up stairs, felt to be normal for her. No resting or nocturnal dyspnea. No cough or chest congestion. No improvement noted in the peripheral edema following the addition of furosemide by PCP in September 2020. No new or worsening lightheadedness/dizziness, previously occurring when jumpingout of bed though she notes she has learned to move slower in the mornings and at night. No syncope. No epistaxis, hemoptysis, melena, hematochezia, or hematuria. History includes chest pain and abnormal adenosine [...] prior cardiac catheterization (40% mid LAD stenosis, modera te irregularities of up to 50% in two separate areas within the midportion of the LCX. There was mild hypokinesis of the inferior wall at the base without otherwise reserved LV systolic function, EF 55%. Patient hospitalized at [facility] in June 2012 at which time she was seen by the undersigned as well as Dr. Robert Kidd. She presented with atypical [...] via nebulization. TTE was interpreted by Dr. Kdid at [facility] on September 02, 2016 as [...] replacement status 01/13/[address] Priya Ricardo [facility] Knee joint replacement status 12/15/2013 right [facility] Macular degeneration Ugo Simon MD Menopause 1974 Need for prophylactic hormone replacement therapy (postmenopausal) 1974 Non-toxic multinodular goiter 04/2009 seen on US, repeat -10/2009 Other screening mammogram 10/24/03 Birad Code 2 Other specified glaucoma both eyes, Paul Simon MD, drops used, timolol S/P angioplasty with stent 06/30/09 [facility] Status post insertion of drug eluting coronary artery stent 04/07/20152009, DUS placed in the mid RCA at [facility] Vitamin D deficiency 10/13/2009 Past Surgical History: Procedure Laterality Date ARTHROPLASTY KNEE TOTAL Left 01/13/2011 Left, Dr Priya Ricardo [facility] ARTHROPLASTY KNEE TOTAL Right 12/16/13 Right, Dr Priya Ricardo [facility] CARDIAC CATH SCANNED RESULT 06/30/2009 DUS placed in right coronary, [facility] CARPAL TUNNEL SURGERY Bilateral 2015 bilateral COLONOSCOPY 03/22/2006 normal repeat in 2015 COLONOSCOPY, DIAGNOSTIC (RECTUM) 09/01/2016 diverticulosis/COLONOSCOPY FLEXIBLE PROXIMAL DIAGNOSTIC performed by Kaylie Ford MD at ENDOSCOPY [facility] COLONOSCOPY, DIAGNOSTIC (RECTUM) 10/09/2018 diverticulosis/[facility] COLONOSCOPY, GI REFERRAL OP 03/22/2005 diverticulosis, repeat in 10 years for surveillance reasons COLORECTAL CANCER SCREEN;W/FLE 1999 normal, Dr Estrella DENTAL SURGERY PROCEDURE NEC 1970 Dental Surgery Procedure tumor benign palate DEXA SCAN/BONE MINERAL AXIAL 07/2002 normal, repeat 2007 DEXA SCAN/BONE MINERAL AXIAL 07/20/2006 normal repeat in 6-8 years EGD, FLEXIBLE, DIAGNOSTIC 01/30/2019 acid reflux, Schatzki ring, hiatal hernia / [facility] EXERCISE ECHO 09/02/2002 normal, Dr Genao INJECT DX/THER SUBSTANCE INTERLAMINAR LUMBAR/SACRAL W IMAGE GUIDE 01/18/2018 INJECTION SPINE LUMBAR OR SACRAL performed by Paul Azam Berg, DO at OR [facility] INJECT DX/THER SUBSTANCE INTERLAMINAR LUMBAR/SACRAL W IMAGE GUIDE 02/12/2018 INJECTION SPINE LUMBAR OR SACRAL performed by Paul Kimsins, DO at OR [facility] INJECT DX/THER SUBSTANCE INTERLAMINAR LUMBAR/SACRAL W IMAGE GUIDE 12/27/2018 INJECTION SPINE LUMBAR OR SACRAL performed by Paul Azam Culps, DO at OR [facility] INJECT DX/THER SUBSTANCE INTERLAMINAR LUMBAR/SACRAL W IMAGE GUIDE 02/21/2019 INJECTION SPINE LUMBAR OR SACRAL performed by Paul Kimsins, DO at OR [facility] INJECT DX/THER [...] one ovary left in, Dr Chakraborty in [facility] REMOVE CATARACT, INSERT LENS PROSTH Right 01/05/[address] Messi Simon REMOVE CATARACT, INSERT LENS PROSTH Left 01/28/[address] Messi Simon STENT, COATED/COVERED, WITH DELIVERY SYSTEM 06/30/2009 [employer] Drug Eluding Stent [facility] TOTAL HIP REPLACEMENT & PROSTHESIS 1992 left, Dr Ricardo TOTAL HIP REPLACEMENT & PROSTHESIS 10/2000 right , Dr Ricardo at [facility] Family History Problem Relation Age [...] file Gets together: Not on file Attends jewish service: Not on file Active member of [...] Self-Exams Not Asked Social History Narrative born [place] in [facility] since 1953 ; 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 Complete Review of Systems: See above. Otherwise negative or noncontributory. Review of patient's allergies indicates: No Known Allergies Outpatient Medications Marked as Taking for the 01/04/21 encounter (Office Visit) with Yvon Harris PA-C Medication Sig amLODIPine Besylate 2.5 MG Oral Tablet (Norvasc) take 1 tablet by mouth once daily Furosemide 20 MG Oral Tablet (Lasix) Take 1 Tab by mouth daily. traMADol HCl 50 MG Oral Tablet (Ultram) Take 1 Tab by mouth daily as needed for Pain, Severe. Rosuvastatin Calcium 20 MG Oral Tablet (Crestor) take 1 tablet by mouth once daily Famotidine 20 MG Oral Tablet (Pepcid) Take 1 Tab by mouth 2 times a day. Metoprolol Succinate ER 25 MG Oral Tablet Extended Release 24 Hour (toPROL XL) Take 0.5 Tabs bymouth daily. Lisinopril 10 MG Oral Tablet (PRINIVIL) take 1 tablet by mouth once daily rOPINIRole HCl 0.25 MG Oral Tablet (REQUIP) take 1 tablet by mouth at bedtime travoprost, MAYA Free, (TRAVATAN Z) 0.004 % ophthalmic solution instill 1 drop into both eyes every evening cyclobenzaprine (FLEXERIL) 5 MG Tablet Take 1 [...] a day with food OBJECTIVE/PHYSICAL EXAMINATION: BP 124/64 | Pulse 68 | Temp 36.3 C (97.3 F) | Resp 16 | Wt 89.9 kg (198 lb 4 oz) | BMI 36.26 kg/m | BSA 1.98 m BP on my evaluation was 130/70 via the left arm General: NAD. HENT: Normocephalic. Atraumatic. Eyes: PER. Conjunctiva pink, sclera clear. Bilateralcarotid bruits. No overt JVD. Heart: RRR, 60 bpm. Soft systolic murmur. Lungs: Clear to auscultation. Abdomen: +BS. Soft. Nontender. No masses or organomegaly. Extremities: Mild, trace to 1+ left greater than right lower extremity peripheral edema more towards the lower end of the estimate. No clubbing. No cyanosis. Pulses: radial=2/4, posterior [...] described VSD not visible on current study. Carotid duplex in March 2020 revealed mild right internal carotid artery disease, 50 to 69% leftinternal carotid artery disease. This was stable, unchanged dating back to January 2015. LDL cholesterol was 67 mg/dL March 2020. ASSESSMENT: 1. ASCVD. 2. Hypertension. 3. Hyperlipidemia. 4. Bilateral internal carotid artery disease, without infarction, asymptomatic 5. Mild left greater than right lower extremity peripheral edema, on amlodipine. RECOMMENDATIONS/PLAN: Options of management discussed. Via shared decision making, we decided to continue as prescribed. If edema persists or progresses, would discontinue amlodipine and retry isosorbide versus increase diuretic therapy. Routine cardiology follow-up. ER with emergencies. Yvon Harris PA-C Department of Cardiology This chart was completed in part utilizing [employer] Speech Voice Recognition Software. Grammatical errors, random [...] Nursing Notes * Stanley Felix LPN - 01/04/2021 10:28 AM EDT Patient identified by full name and date of Chief Complaint Patient presents with Follow Up 6 month follow up. Edema ongoing in legs- no big changes. Lightheaded- does not feel right in the head now. Denies chest pain, palpitations and SOB. Examination Room: 2 Name: Eugenia Hu Date of : (1935). Reason for Visit: 6 month follow up Interim Hospitalization(s): Denies Problems/Concerns: See chief complaint Chest Pain/SOB: Denies My [facility] is a way you can talk to your provider online through e-mail. Would you like to sign up? I can activate it for you? ALREADY ACTIVE Patient was instructed to not get up [...] Encounters Date Type Specialty Care Team Description 04/19/2021 Office Visit Family Medicine Bj Mario, DO [address] [place] [address] [phone] 08/04/2021 Office Visit Cardiology Yvon Harris PA-C [address] [facility] [place] [address] [phone] 09/09/2021 Imaging Radiology Health Maintenance Due Date Last Done Comments Dexa Scan 10/30/2020 10/30/2013, 10/20, 08/24/2009, Additional history exists Influenza Vaccine (FLU shot) (#1) 2021 06/05/2020, 04/08/2020, 03/20/2019, Additional history exists DIABETES SCREEN EVERY 3 [...] Documents on File Type Date Recorded Patient Technical Instructor Course Developer Expl anation Advance Directives and Living Will 08/13/2009 12:00 AM LIVING WILL Power of Biochemistry Specialist 08/13/2009 12:00 AM DOMONIQUE Madsen OF QUALITY LAB TECHNICIAN DURABLE HEALTH POA AND HEALTH CARE TREATMENT INSTR Power of Biochemistry Specialist 08/13/2009 12:00 AM DOMONIQUE R OF QUALITY LAB TECHNICIAN DURABLE HEALTH CARE POA Advanced Directive service [...]
--- OUTSIDE RECORDS SUMMARY | 2023-01-22 22:54 | External Medical Summary | Summary of Care ---
Author Name Unknown Organization [place] [address] Care Team Providers Care Dining Chair Seat Cushion Trimmer Name Role Phone Bj Mario DO Primary Care Provider [phone] Reason for Visit * Reason Onset Date Comments eRx-Medication Refill Status Check 10/23/2020 Encounter Details Date Type Department Care Team Description 10/09/2020 Refill Cardiology, [facility] [address] [place] [address] Chaim Harris PA-C [address] [facility] [place] [address] [phone] Allergies No Known Active Allergiesdocumented as of [...] DUS placed in the mid RCA at [facility] [place] Asymptomatic bilateral carotid artery st enosis 06/10/2014 Raynaud phenomenon 06/13/2011 Knee joint replacement status 01/13/2011 Overview: 2014, right Dr Ricardo [facility] [place] 2011: left Dr Priya Ricardo [facility] [place] Dyslipidemia, goal LDL below 70 09/21/19 11 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 neurogenic claudication 02/17/2010 Vitamin D deficiency 10/13/2009 Chronic ischemic heart disease 0 S/P angioplasty with stent 06/30/2009 Overview: 07/01/2009 DUS in the RCA at [facility] [place] Non-toxic multinodular goiter 04/21/2009 Overview: seen [...] encounter Miscellaneous Notes * Telephone Encounter - Leidy Vega PHARM Tech - 10/23/2020 2:08 PM EDT Pt calling to request amlodipine. Informed pt that RX is available at their pharmacy. Pt verbalizedunderstanding and stated they will check with their pharmacy regarding this medication. Thank you, Leidy Vega Refining Machine Operator [employer] 10/23/2020, 2:08 PM * Telephone Encounter - Chaim Harris PA-C [...] Encounter - Jace Gonzalez RN - 10/12/2020 9:00 AM EDT [...] Results Component Value Date/Time ALT - [facility] 04/06/2020 10:20 AM Hemoglobin AIC Results: No results found for: HEMOGLOBIN A1C documented in this encounter Plan of Treatment Upcoming Encounters Date Type Specialty Care Team Description 01/04/2021 Office Visit Cardiology Chaim Harris PA-C [address] [facility] [place] [address] [phone] 04/19/2021 Office Visit Family Medicine Bj Mario, DO [address] [place] [address] [phone] 09/09/2021 Imaging Radiology Health Maintenance Due Date [...] Documents on File Type Date Recorded Patient Manager Lan Expl anation Advance Directives and Living Will 08/13/2009 12:00 AM LIVING WILL Power of Racing Secretary And Handicapper 08/13/2009 12:00 AM DOMONIQUE R OF MANAGER CONTRACTING DURABLE HEALTH POA AND HEALTH CARE TREATMENT INSTR Power of Racing Secretary And Handicapper 08/13/2009 12:00 AM DOMONIQUE R OF MANAGER CONTRACTING DURABLE HEALTH CARE POA Advanced Directive service [...]
--- OUTSIDE RECORDS SUMMARY | 2023-01-22 22:54 | External Medical Summary | Summary of Care ---
Author Name Unknown Organization [place] [address] Care Team Providers Care Process Chemist Name Role Phone Nhi Florian DO Primary Care Provider [phone] Reason for Visit * Reason Comments eRx-Medication Refill Encounter Details Date Type Department Care Team Description 04/04/2021 Refill Family Practice [facility] [place] [address] [facility] [place] [address] Nhi Florian DO [address] [facility] [place] [address] 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); Edema Allergies No known active allergiesdocumented as of this encounter (statuses as of 04/05/2021) Medications Medication Sig Dispensed Refills Start Date [...] every evening 2.5 mL 5 12/03/2019 Active Famotidine 20 MG Oral Tablet (Pepcid)Indication [...] once daily 90 Tablet 1 04/05/2021 Active Lisinopril 10 MG Oral Tablet (PRINIVIL)Indicati ons: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),Edema take 1 tablet by mouth once daily 90 Tab 3 03/26/2020 1 Discontinued documented as of this encounter (statuses as of 04/05/2021) Active Problems Problem Noted Date Chronic kidney [...] as of this encounter (statuses as of 04/05/2021) Resolved Problems Problem Noted Date Resolved Date [...] as of this encounter (statuses as of 04/05/2021) Immunizations Name Administration Dates Next Due COVID-19 [...] Miscellaneous Notes * Telephone Encounter - Ruby Beltran RPh - 04/05/2021 12:50 PM EST Signed Prescriptions: Disp Refills Lisinopril 10 MG Oral Tablet (Prinivil) 90 Tab*1 Sig: take 1 tablet by mouth once dailyAuthorizing Provider: NHI FLORIAN User: RUBY BELTRAN------ documented in this encounter Plan of Treatment Upcoming Encounters Date Type Specialty Care Team Description 04/16/2021 Office Visit Cardiology Yvon Harris PA-C [address] [place] [address] 04/19/2021 Office Visit Family Medicine Nhi Florian, DO [address] [facility] [address] 08/04/2021 Office Visit Cardiology Yvon Harris PA-C [address] [place] [address] 09/09/2021 Imaging Radiology Health Maintenance Due Date Last Done Comments Dexa Scan 10/30/2020 10/30/2013, 10/20, 08/24/2009, Additional history exists CKD PHOS USE SMARTSET 70361 11/17/202010/21, 07/15/2019, 08/13/2018, Additional history exists Influenza Vaccine (FLU shot) (#1) 2021 06/05/2020, 04/08/2020, 03/20/2019, Additional history exists COVID-19 Vaccine (3 - Booster for Moderna series) 01/30/2021 07/30/2020, 07/02/2020 CKD GFR USE SMARTSET 71953 05/01/202110/30, 10/20/2020, 09/15/2020, Additional history exists CKD HGB USE SMARTSET 11303 10/30/202110/30, 04/06/2020, 04/04/2019, Additional history exists DIABETES [...] Documents on File Type Date Recorded Patient Sports Medicine Physician Expl anation Advanced Directive service a mike [...] 08/13/2009 12:00 AM LIVING WILL Power of Automatic Buffer 08/13/2009 12:00 AM DOMONIQUE R OF ERP IMPLEMENTATION CONSULTANT DURABLE HEALTH POA AND HEALTH CARE TREATMENT INSTR Power of Automatic Buffer 08/13/2009 12:00 AM DOMONIQUE R OF ERP IMPLEMENTATION CONSULTANT DURABLE HEALTH CARE POA Care Teams Process Chemist Relationship Specialty Start Date End Date Nhi Florian, DO [address] [place] [address] PCP - General Family Medicine 11/28/16 documented as of this encounter
--- OUTSIDE RECORDS SUMMARY | 2023-01-22 22:54 | External Medical Summary | Summary of Care ---
Author Name Unknown Organization [place] [address] Care Team Providers Care Border Measurer Name Role Phone Bj Mario Primary Care Provider [phone] Reason for Visit * Reason Comments Follow Up Encounter Details Date Type Department Care Team Description 04/16/2021 Office Visit Cardiology, [facility] [address] [place] [address] Yvon Harris PA-C [address] [place] [address] Chronic ischemic heart disease*; S/P angioplasty with stent; 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); Dyslipidemia, goal LDL below 70; HTN, goal below 140/90; Asymptomatic bilateral carotid artery stenosis; PVC (premature ventricular contraction); Encounter for monitoring diuretic therapy Allergies No known active allergiesdocumented as of this encounter (statuses as of 04/18/2021) Medications Medication Sig Dispensed Refills Start Date End Date Status ASPIRIN 81 MG PO CHEW One pill by mouth once a day with food 100 5 08/06/2008 Active VITAMIN D 1000 UNIT PO CAPSIndications:Carmel min D deficiency 1 capsule daily 30 Cap 11 10/13/2009 Active nitroglycerin (NITROSTAT) 0.4 MG SUBLIndications:[employer] jose alberto ischemic heart disease 1 every [...] XL)Indications:Chron ic ischemic heart disease Take 0.5 Tabs by [...] a day 180 Tablet 2 04/09/2021 Active documented as of this encounter (statuses as of 04/18/2021) Active Problems Problem Noted Date Chronic kidney [...] as of this encounter (statuses as of 04/18/2021) Resolved Problems Problem Noted Date Resolved Date [...] as of this encounter (statuses as of 04/18/2021) Immunizations Name Administration Dates Next Due COVID-19 [...] Sign Reading Time Taken Comments Blood Pressure 126/68 04/16/2021 2:41 PM EST Pulse 76 04/16/2021 2:41 PM EST Temperature 35.9 C (96.6 F) 04/16/2021 2:41 PM ES T Respiratory Rate 12 04/16/2021 2:41 PM EST Oxygen Saturation - - Inhaled Oxygen Concentration - - Weight 87.5 kg (193 lb) 04/16/2021 2:41 PM EST Height - - Body Mass Index 35.3 09/29/2020 9:01 AM EDT documented in this encounter Progress Notes * Yvon Harris PA-C - 04/16/2021 3:03 PM EST History of Present Illness: Eugenia Hu is an 86-year-old female who returns today for cardiology follow-up evaluation. Patient noted complaints of fluid retention in February. Furosemide was transiently increased x3 days. Amlodipine (2.5 mg/day) was switched to isosorbide mononitrate 30 mg/day in the morning without difficulty. Patient returns today feeling well. Notes significant improvement after the above medication changes. No chest pain. No sublingual nitroglycerin use. No palpitations. Exertional dyspnea has improved. No resting or nocturnal dyspnea. Peripheral edema has resolved. No cough, chest congestion, abdominal bloating, or peripheral edema noted. Weight is down 5 lb. Nopositional lightheadedness or dizziness. No near syncope or syncope. No fevers or chills. No melenaor hematochezia. Seasonal influenza vaccination received [facility] on March 29, 2021. Patient is scheduled to see PCP on April 19, 2021. History includes chest pain and abnormal adenosine [...] systolic function, EF 55%. Patient hospitalized at [facility] in June 2012 at which time [...] TTE was interpreted by Dr. Kidd at [facility] on September 02, 2016 as demonstrating [...] replacement status 01/13/[address] Ricardo [facility] Knee joint replacement status 12/15/[address] [facility] Macular degeneration Ugo Simon MD Menopause 1974 Need for prophylactic hormone replacement therapy (postmenopausal) 1974 Non-toxic multinodular goiter 04/2009 seen on US, repeat -10/2009 Other screening mammogram 10/24/03 Birad Code 2 Other specified glaucoma both eyes, Paul Simon MD, drops used, timolol S/P angioplasty with stent 06/30/09 [facility] Status post insertion of drug eluting coronary artery stent 04/07/20152009, DUS placed in the mid RCA at [facility] Vitamin D deficiency 10/13/2009 Past Surgical History: Procedure Laterality Date ARTHROPLASTY KNEE TOTAL Left 01/13/2011 Left, Dr Priya Ricardo [facility] ARTHROPLASTY KNEE TOTAL Right 12/16/13 Right, Dr Priya Ricardo [facility] CARDIAC CATH SCANNED RESULT 06/30/2009 DUS placed in right coronary, [facility] CARPAL TUNNEL SURGERY Bilateral 2014 bilateral COLONOSCOPY 03/22/2006 normal repeat in 2015 COLONOSCOPY, DIAGNOSTIC (RECTUM) 09/01/2016 diverticulosis/COLONOSCOPY FLEXIBLE PROXIMAL DIAGNOSTIC performed by Kaylie Ford MD at ENDOSCOPY [facility] COLONOSCOPY, DIAGNOSTIC (RECTUM) 10/09/2018 diverticulosis/[facility] COLONOSCOPY, GI REFERRAL OP 03/22/2005 diverticulosis, repeat in 10 years for surveillance reasons COLORECTAL CANCER SCREEN;W/FLE 1999 normal, Dr Estrella DENTAL SURGERY PROCEDURE NEC 1970 Dental Surgery Procedure tumor benign palate DEXA SCAN/BONE MINERAL AXIAL 07/2002 normal, repeat 2007 DEXA SCAN/BONE MINERAL AXIAL 07/20/2006 normal repeat in 6-8 years EGD, FLEXIBLE, DIAGNOSTIC 01/30/2019 acid reflux, Schatzki ring, hiatal hernia / [facility] EXERCISE ECHO 09/02/2002 normal, Dr Genao [...] INJECTION SPINE LUMBAR OR SACRAL performed by aPul Weiss Cousins, DO at OR [facility] MAMMOGRAM [...] one ovary left in, Dr Chakraborty in [facility] REMOVE CATARACT, INSERT LENS PROSTH Right 01/05/[address] Messi Simon REMOVE CATARACT, INSERT LENS PROSTH Left 01/28/[address] Messi Simon STENT, COATED/COVERED, WITH DELIVERY SYSTEM 06/30/2009 [employer] Endeaver Drug Eluding Stent [facility] TOTAL HIP REPLACEMENT & PROSTHESIS 1992 left, Dr Ricardo TOTAL HIP REPLACEMENT & PROSTHESIS 10/2000 right , Dr Ricardo at [facility] Family History Problem Relation Age of [...] Not on file Occupational History 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, [employer] Occupation: Employer: [employer] Social Needs Financial [...] file Gets together: Not on file Attends temple service: Not on file Active member of [...] Self-Exams Not Asked Social History Narrative born [place] [facility] since 1953 ; 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 Complete Review of Systems: See above. Otherwise negative or noncontributory. Review of patient's allergies indicates: No Known Allergies Outpatient Medications Marked as Taking for the 04/16/21 encounter (Office Visit) with Yvon Harris PA-C Medication Sig Famotidine 20 MG Oral Tablet (Pepcid) take 1 tablet by mouth twice a day Lisinopril 10 MG Oral Tablet (Prinivil) take [...] take 1 tablet by mouth once daily Meclizine HCl 12.5 MG Oral Tablet (ANTIVERT) Take 1 Tab by mouth 3 times a day as needed for Dizziness. Metoprolol Succinate ER 25 MG Oral Tablet Extended Release 24 Hour (toPROL XL) Take 0.5 Tabs bymouth daily. travoprost, MAYA Free, (TRAVATAN Z) 0.004 % [...] a day with food OBJECTIVE/PHYSICAL EXAMINATION: BP 126/68 | Pulse 76 | Temp 35.9 C (96.6 F) (Tympanic) | Resp 12 | Wt 87.5 kg (193 lb) | BMI 35.30 kg/m | BSA 1.96 m General: NAD. HENT: Normocephalic. Atraumatic. Eyes: PER. Conjunctiva pink, sclera clear. Neck: Bilateral carotid bruits. No JVD. Heart: RRR, 66 bpm. Soft systolic murmur. Lungs: Clear to auscultation. Abdomen: +BS. Soft. Nontender. No masses or organomegaly. Extremities: Trivial edema. No clubbing. No cyanosis. Pulses: radial=2/4, [...] QTc is 408 ms. ASSESSMENT: 1. ASCVD. Stable, asymptomatic 2. Hypertension, well controlled. 3. Hyperlipidemia. LDL cholesterol was 67 mg/dL March 2020. 4. Bilateral internal carotid artery disease, without infarction, asymptomatic. Carotid duplex in March 2020 revealed mild right internal carotid artery disease, 50 to 69% left internal carotid artery disease, unchanged dating back to January 2015. 5. Fluid retention, significantly improved following discontinuation of amlodipine RECOMMENDATIONS/PLAN: Continue current therapies as prescribed. Fasting laboratory work when evaluated by PCP next week. Routine cardiology follow-up in 6 months time or as needed. ER with emergencies. Yvon Harris PA-C Department of Cardiology This chart was completed in part utilizing [employer] Speech Voice Recognition Software. Grammatical errors, random [...] documented in this encounter Nursing Notes * [place] LPN - 04/16/2021 2:40 PM EST Examination Room: 1 Name: Eugenia Hu Date of : (1935). Reason for Visit: follow up med change Interim Hospitalization(s): denies Problems/Concerns: none Chest Pain/SOB: denies [facility] Discussed: Not applicable [facility] is a way you can talk to your provider online through e-mail. Would you like to sign up? I can activate it for you? NO Patient was instructed to not get up [...] Visit Family Medicine Bj Mario, DO [address] [facility] [place] [address] 09/09/2021 Imaging Radiology 10/14/2021 Office Visit Cardiology Yvon Harris PA-C [address] [facility] [place] [address] Scheduled Orders Name Type Priority Associated Diagnoses Orde r Schedule EKG EKG Routine Chronic ischemic heart disease Ordered: 04/16/2021 LIPID PANEL WITH DIRECT LDL IF TG IS HIGH Lab Routine Dyslipidemia, goal LDL below 70 Expected: 04/17/2021, Expires: 04/16/2022 COMPREHENSIVE METABOLIC PANEL Lab Routine Dyslipidemia, goal LDL below 70 Encounter for monitoring diuretic therapy Expected: 04/17/2021, Expires: 04/16/2022 MAGNESIUM Lab Routine Encounter for monitoring diuretic therapy Expected: 04/17/2021, Expires: 04/16/2022 Health Maintenance Due Date Last Done Comments Dexa Scan 10/30/2020 10/30/2013, 10/20, 08/24/2009, Additional history exists CKD PHOS USE SMARTSET 15316 11/17/2020/01/2020, 07/15/2019, 08/13/2018, Additional history exists Influenza Vaccine (FLU shot) (#1) 2021 06/05/2020, 04/08/2020, 03/20/2019, Additional history exists COVID-19 Vaccine (3 - Booster for Moderna series) 01/30/2021 07/30/2020, 07/02/2020 CKD GFR USE SMARTSET 11660 05/01/202110/30, 10/20/2020, 09/15/2020, Additional history exists CKD HGB USE SMARTSET 27068 10/30/202110/30, 04/06/2020, 04/04/2019, Additional history exists DIABETES [...] PVC (premature ventricular contraction) Other premature beats Encounter for monitoring diuretic therapy Encounter for therapeutic drug monitoring documented in this encounter Advance Directives Documents on File Type Date Recorded Patient Industrial Nurse Expl anation Advanced Directive service a [...] 08/13/2009 12:00 AM LIVING WILL Power of Prep Cook 08/13/2009 12:00 AM DOMONIQUE R OF LIVE TRUCK OPERATOR DURABLE HEALTH POA AND HEALTH CARE TREATMENT INSTR Power of Prep Cook 08/13/2009 12:00 AM DOMONIQUE Madsen OF LIVE TRUCK OPERATOR DURABLE HEALTH CARE POA Care Teams Border Measurer Relationship Specialty Start Date End Date Bj Mario, DO [address] [facility] [place] [address] PCP - General Family Medicine 11/28/16 documented as of this encounter"
--- OUTSIDE RECORDS SUMMARY | 2023-01-22 22:54 | External Medical Summary ---
Author Name Unknown Address Unknown Organization K[facility] [address] [place] [place] [address] Laboratory Report Ordering Provider Test Date Status ANIVAL HANKINS 10/30/2020 15:15:57 Final Observation Date Value Abnormality Reference (Units ) Status Lipase 10/30/2020 15:15:57 38 13-60 (U/L ) Final Performing Location [facility] - [address] [place] [address]
--- OUTSIDE RECORDS SUMMARY | 2023-01-22 22:54 | External Medical Summary ---
Author Name Unknown Address Unknown Organization [facility] [place] [address] Laboratory Report Ordering Provider Test Date Status SRINI RUCKER 04/19/2021 09:18:38 Final Observation Date Value Abnormality Reference (Units ) Status BUN 04/19/2021 09:18:38 21 Above high normal 6-20 (mg/dL) Final Creatinine 04/19/2021 09:18:38 1.4 Above high normal 0.5-1.0 (mg/dL) Final Glomerular filtration rate/1.73 sq M.predicted [Volume Rate/Area] in Serum, Plasma or Blood by Creatinine-based formula (CKD-EPI) 04/19/2021 09:18:38 33 Below low normal >=60 (mL/min) Final Performing Location [facility] [place] [address]
--- OUTSIDE RECORDS SUMMARY | 2023-01-22 22:54 | External Medical Summary ---
Author Name Unknown Address Unknown Organization K[facility] [place] [address] Laboratory Report Ordering Provider Test Date Status SRINI RUCKER 04/19/2021 09:18:38 Final Observation Date Value Abnormality Reference (Units ) Status Magnesium 04/19/2021 09:18:38 1.9 1.5-2.6 (m g/dL) Final Performing Location [facility] [place] [address]
--- OUTSIDE RECORDS SUMMARY | 2023-01-22 22:54 | External Medical Summary | Summary of Care ---
Author Name Unknown Organization [place] [address] Care Team Providers Care Gum Puller Name Role Phone Nhi Florian DO Primary Care Provider [phone] Reason for Visit * Reason Comments eRx-Medication Refill Encounter Details Date Type Department Care Team Description 02/07/2021 Refill Family Practice [facility] [place] [address] [place] [address] Nhi Florian DO [address] [facility] [place] [address] [phone] Restless legs syndrome Allergies No Known Active Allergiesdocumented as of this encounter (statuses as of 02/08/2021) Medications Medication Sig Dispensed Refills Start Date [...] 12/03/2019 Active Lisinopril 10 MG Oral Tablet (PRINIVIL)Indicati [...] at bedtime 90 Tab 3 02/08/2021 Active rOPINIRole HCl 0.25 MG Oral Tablet (REQUIP)Indication s:Restless legs syndrome take 1 tablet by mouth at bedtime 90 Tab 3 02/12/2020 02/08/2021 Discontinued documented as of this encounter (statuses as of 02/08/2021) Active Problems Problem Noted Date Chronic kidney [...] as of this encounter (statuses as of 02/08/2021) Resolved Problems Problem Noted Date Resolved Date [...] as of this encounter (statuses as of 02/08/2021) Immunizations Name Administration Dates Next Due COVID-19 [...] Telephone Encounter - Nhi Florian DO - 02/08/2021 4:13 PM EDT Signed Prescriptions: Disp Refills rOPINIRole HCl 0.25 MG Oral Tablet (Requip)90 Tab 3 Sig: take 1 tablet by mouth at bedtime Authorizing Provider: NHI FLORIAN * Telephone Encounter - Malorie Whitaker [facility] - 02/08/2021 1:09 PM EDT Pending Prescriptions: Disp Refills rOPINIRole HCl 0.25 MG Oral Tablet [Pharma*90 Tab 3 Sig: take 1 tablet by mouth at bedtime * Telephone Encounter - Malorie Whitaker RPh - 02/08/2021 1:09 PM EDT Refill pharmacists currently not authorized to approve refills for this class of medication per refill protocol. Please approve if appropriate. Thank You, Malorie Whitaker [facility] Clinical Pharmacist [facility] 02/08/2021, 1:09 PM documented in this encounter Plan of Treatment Upcoming Encounters Date Type Specialty Care Team Description 04/19/2021 Office Visit Family Medicine Nhi Florian, DO [address] [facility] [place] [address] [phone] 08/04/2021 Office Visit Cardiology Yvon Harris PA-C [address] [facility] [place] [address] [phone] 09/09/2021 Imaging Radiology Health Maintenance Due Date [...] legs syndrome (RLS) documented in this encounter Advance Directives Documents on File Type Date Recorded Patient Back End Web Developer Expl anation Advance Directives and Living Will 08/13/2009 12:00 AM LIVING WILL Power of Client Support Consultant 08/13/2009 12:00 AM DOMONIQUE R OF FIRER LOCOMOTIVE CRANE DURABLE HEALTH POA AND HEALTH CARE TREATMENT INSTR Power of Client Support Consultant 08/13/2009 12:00 AM DOMONIQUE R OF FIRER LOCOMOTIVE CRANE DURABLE HEALTH CARE POA Advanced Directive service [...]
--- OUTSIDE RECORDS SUMMARY | 2023-01-22 22:55 | External Medical Summary | Summary of Care ---
Author Name Unknown Organization [place] [address] Care Team Providers Care Molder Trimmer Name Role Phone Bj Mario DO Primary Care Provider [phone] Reason for Visit * Reason Comments Adult Annual Wellness Visit, Subsequent Visit Encounter Details Date Type Department Care Team Description 08/28/2020 Nurse Only Ancillary Scenery [place] [address] [place] [address] Pauline, Nurse Annual Wellness Scenery [address] [place] [address] [phone] Adult Annual Wellness Visit, Subsequent Visit Allergies No Known Active Allergiesdocumented as of this encounter (statuses as of 08/28/2020) Medications Medication Sig Dispensed Refills Start Date [...] Active rOPINIRole HCl 0.25 MG Oral Tablet (REQUIP)Indications:R estless legs syndrome take 1 tablet by mouth at bedtime 90 Tab 3 02/12/2020 Active Additional Information Patient not taking. Reported on 08/28/2020 Lisinopril 10 MG Oral Tablet (PRINIVIL)Indications :Benign hypertension with CKD (chronic kidney disease) stage III,Edema take 1 tablet by mouth once daily 90 Tab 3 03/26/2020 Active amLODIPine Besylate 2.5 MG Oral Tablet (NORVASC) Take 1 Tab by mouth daily. 31 Tab 5 04/06/2020 Active Famotidine 20 MG Oral Tablet (Pepcid)Indications:G astroesophageal reflux disease without esophagitis Take 1 Tab by mouth 2 times a day. 60 Tab 11 04/08/2020 Active Metoprolol Succinate ER 25 MG Oral Tablet Extended Release 24 Hour (toPROL XL)Indications:Chroni c ischemic heart disease Take 0.5 Tabs by mouth daily. 45 Tab 3 04/08/2020 Active Meclizine HCl 12.5 MG Oral Tablet (ANTIVERT)Indications :Benign paroxysmal vertigo of left ear Take 1 Tab by mouth 3 times a day as needed for Dizziness. 30 Tab 0 04/25/2020 Active Additional Information Patient not taking. Reported on 08/28/2020 Rosuvastatin Calcium 20 MG Oral Tablet (Crestor)Indications: Dyslipidemia, goal LDL below 70 take 1 tablet by mouth once daily 90 Tab 2 08/12/2020 Active documented as of this encounter (statuses as of 08/28/2020) Active Problems Problem Noted Date Benign hypertension with CKD (chronic ki dney disease) stage III 09/06/2017 History of deep vein thrombosis (DVT) of [...] as of this encounter (statuses as of 08/28/2020) Resolved Problems Problem Noted Date Resolved Date Prophylactic antibiotic 07/09/2015 06/02/19 18 Kidney disease, [...] as of this encounter (statuses as of 08/28/2020) Immunizations Name Administration Dates Next Due COVID-19 [...] Sign Reading Time Taken Comments Blood Pressure 122/64 08/28/2020 9:06 AM EDT Pulse 83 08/28/2020 9:06 AM EDT Temperature 35.9 C (96.6 F) 08/28/2020 9:06 AM ED T Respiratory Rate - - Oxygen Saturation 98% 08/28/2020 9:06 AM EDT Inhaled Oxygen Concentration - - Weight 88 kg (194 lb) 08/28/2020 9:06 AM EDT Height 157.5 cm (5' 2") 08/28/2020 9:06 AM EDT Body Mass Index 35.48 08/28/2020 9:06 AM EDT documented in this encounter Patient Instructions * Patient Instructions* Rosalind Griffith RN - 08/28/2020 9:55 AM EDT Hi Ms. Hu, As your primary care [...] Due: Health Maintenance Due Topic Date Due *DEPRESSION SCREENING,ANNUAL FOR PTS 12 AND OVER Never done Dexa Scan 10/30/2020 Current Medication List: (as of Last Office/Telemedicine Visit: No Previous Office/Telemedicine Visits) Current Outpatient Medications Medication Sig Dispense Refill Rosuvastatin Calcium 20 MG Oral Tablet (Crestor) take 1 tablet by mouth once daily 90 Tab 2 Famotidine 20 MG Oral Tablet (Pepcid) Take 1 Tab by mouth 2 times a day. 60 Tab 11 Metoprolol Succinate ER 25 MG Oral Tablet Extended Release 24 Hour (toPROL XL) Take 0.5 Tabs bymouth daily. 45 Tab 3 amLODIPine Besylate 2.5 MG Oral Tablet (NORVASC) Take 1 Tab by mouth daily. 31 Tab 5 Lisinopril 10 MG Oral Tablet (PRINIVIL) take 1 tablet by mouth once daily 90 Tab 3 travoprost, MAYA Free, (TRAVATAN Z) 0.004 % ophthalmic solution instill 1 drop into both eyes every evening 2.5 mL 5 Diclofenac Sodium (VOLTAREN) 1 % gel Place 4 g topically on the skin 4 times a day. To affectedarea as directed. 100 g 5 cyclobenzaprine (FLEXERIL) [...] once a day with food 100 5 Meclizine HCl 12.5 MG Oral Tablet (ANTIVERT) Take 1 Tab by mouth 3 times a day as needed for Dizziness. (Patient not taking: Reported on 08/28/2020) 30 Tab 0 rOPINIRole HCl 0.25 MG Oral Tablet (REQUIP) take 1 tablet by mouth at bedtime (Patient not taking: Reported on 08/28/2020) 90 Tab 3 nitroglycerin (NITROSTAT) 0.4 MG SUBL 1 every 5 min as needed with chest pain up to 3 doses in 15 minutes 25 Tab 11 Current List of Allergies: (as of Last Office/Telemedicine Visit: No Previous Office/Telemedicine Visits) Review of patient's allergies indicates: No Known Allergies Most Recent Lab Results: Results for orders placed or performed in visit on 07/02/20 BASIC METABOLIC PANEL Result Value Ref Range BUN 20 6 - 20 mg/dL Creatinine 1.4 (H) 0.5 - 1.0 mg/dL Estimated Glomerular Filtration Rate 35.8 (L) >=60.0 mL/min Sodium 142 135 - 146 mmol/L Potassium 4.8 3.5 - 5.1 mmol/L Chloride 105 98 - 107 mmol/L CO2 25 22 - 32 mmol/L Anion Gap 12 7 - 15 mmol/L Glucose 98 70 - 120 mg/dL Calcium 10.5 (H) 8.4 - 10.2 mg/dL PTH Result Value Ref Range PTH 62 15 - 65 pg/mL 25-HYDROXY VITAMIN D Result Value Ref Range 25-Hydroxy Vitamin D 57 >19 ng/mL Sincerely, Bj Mario, DO 08/28/2020 [facility] Calendar (as of Last Office/Telemedicine Visit: No Previous Office/Telemedicine Visits) Check off each item when done! Due Now or Overdue Care needs: Frequency: Last completed: Due next: Screen For Depression Yearly Once 05/30/2020 Due in 3 Months Care needs: Frequency: Last completed: Due next: Bone Density 1 Year 10/30/2013 10/30/2020 Phosphorus Monitoring (Kidney Disease) 1 Year 11/18/2019 11/17/2020 Due in 6 Months Care needs: Frequency: Last completed: Due next: Kidney Function Test (Kidney Disease) 6 Months 07/02/2020 12/30/2020 Due This Year or Later Care needs: Frequency: Last completed: Due next: Anemia Monitoring (Kidney Disease) 1 Year 04/06/2020 04/06/2021 Diabetes Screening - Every 3 Years (Age 45 And Up) 3 Years 07/02/2020 07/02/2023 Diphtheria, Tetanus & Pertussis Vaccines (#2[2 - Td) Series 08/28/2018 08/28/2028 As you look over the recommended services, be sure to check with your insurance company to determine what's covered. [employer] is a great tool that helps you review your medical record online, including test results, doctor notes and your health summary. You can also schedule appointments with me and other members of your care team, request prescription refills and ask for advice related to your medical conditions at [email or web address]. documented in this encounter Progress Notes * Rosalind Griffith RN - 08/28/2020 9:24 AM EDT AD8 Dementia Screening Interview Person [...] (0) 5. Forgets correct month or year. Yes (1) 6. Trouble handling complicated financial affairs (eg: balancing checkbook, income taxes, paying bills). Yes (1) 7. Trouble remembering appointments. No (0) 8. [...] Annual Wellness Visit: Eugenia Hu is a 85 year old female who presents for an Adult Annual Wellness Visit. Depression Screening: Did the patient complete the screening questionnaire for Depression? Yes Is the patient's total score for Depression 15 or greater? No, no further intervention needed, unless requested by patient. Did the patient answer positively to the suicide question? No, no further intervention needed, unless requested by patient. In general, compared to other people your age, what would you say that your health is? Good Ht Readings from Last 1 Encounters: 08/28/20 (!) 1.575 m (5' 2") Wt Readings from Last 1 Encounters: 08/28/20 88 kg (194 lb) Body Mass Index: BMI Greater than 30 Body mass index is 35.48 kg/m. BP Readings from Last 1 Encounters: 08/28/20 122/64 Medical/Surgical/Family History Reviewed: Yes 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 2000, left 1992 HTN, goal below 140/90 Knee joint replacement status 01/13/[address] Priya Ricardo [facility] Knee joint replacement status 12/15/2013 right [facility] Macular degeneration Ugo Simon MD Menopause 1974 Need for prophylactic hormone replacement therapy (postmenopausal) 1974 Non-toxic multinodular goiter 04/2009 seen on US, repeat -10/2009 Other screening mammogram 10/24/03 [facility] Code 2 Other specified glaucoma both eyes, Paul Simon MD, drops used, timolol S/P angioplasty with stent 06/30/09 [facility] Status post insertion of drug eluting coronary artery stent 04/07/20152009, DUS placed in the mid RCA at [facility] Vitamin D deficiency 10/13/2009 Past Surgical History: Procedure Laterality Date ARTHROPLASTY KNEE TOTAL Left 01/13/2011 Left, Dr Priya Ricardo [facility] ARTHROPLASTY KNEE TOTAL Right 12/16/13 Right, Dr Priya Ricardo [facility] CARDIAC CATH SCANNED RESULT 06/30/2009 DUS placed in right coronary, [facility] CARPAL TUNNEL SURGERY Bilateral 2014 bilateral COLONOSCOPY 03/22/2006 normal repeat in 2015 COLONOSCOPY, DIAGNOSTIC (RECTUM) 09/01/2016 diverticulosis/COLONOSCOPY FLEXIBLE PROXIMAL DIAGNOSTIC performed by Kaylie Ford MD at ENDOSCOPY [facility] COLONOSCOPY, DIAGNOSTIC (RECTUM) 10/09/2018 diverticulosis/[facility] COLONOSCOPY, GI REFERRAL OP 03/22/2005 diverticulosis, repeat in 10 years for surveillance reasons COLORECTAL CANCER SCREEN;W/FLE 1999 normal, Dr Estrella DENTAL SURGERY PROCEDURE NEC 1970 Dental Surgery Procedure tumor benign palate DEXA SCAN/BONE MINERAL AXIAL 07/2002 normal, repeat 2007 DEXA SCAN/BONE MINERAL AXIAL 07/20/2006 normal repeat in 6-8 years EGD, FLEXIBLE, DIAGNOSTIC 01/30/2019 acid reflux, Schatzki ring, hiatal hernia / [facility] EXERCISE ECHO 09/02/2002 normal, Dr Genao INJECT DX/THER SUBSTANCE INTERLAMINAR LUMBAR/SACRAL W IMAGE GUIDE 01/18/2018 INJECTION SPINE LUMBAR OR SACRAL performed by Paul Azam Cousins, DO at [facility] INJECT DX/THER SUBSTANCE INTERLAMINAR LUMBAR/SACRAL W IMAGE GUIDE 02/12/2018 INJECTION SPINE LUMBAR OR SACRAL performed by [employer] Cousins, DO at OR [facility] INJECT DX/THER SUBSTANCE INTERLAMINAR LUMBAR/SACRAL W IMAGE GUIDE 12/27/2018 INJECTION SPINE LUMBAR OR SACRAL performed by [employer] Cousins, DO at [facility] INJECT DX/THER SUBSTANCE INTERLAMINAR LUMBAR/SACRAL W IMAGE GUIDE 02/21/2019 INJECTION SPINE LUMBAR OR SACRAL performed by [employer] Cousins, DO at [facility] INJECT DX/THER SUBSTANCE INTERLAMINAR LUMBAR/SACRAL W IMAGE GUIDE 08/06/2020 INJECTION SPINE LUMBAR OR SACRAL performed by Paul Kimsins, DO at [facility] MAMMOGRAM - BILATERAL [...] one ovary left in, Dr Chakraborty in [facility] REMOVE CATARACT, INSERT LENS PROSTH Right 01/05/[address] Messi Simon REMOVE CATARACT, INSERT LENS PROSTH Left 01/28/[address] Messi Simon STENT, COATED/COVERED, WITH DELIVERY SYSTEM 06/30/2009 [employer] [facility] Eluding Stent [facility] TOTAL HIP REPLACEMENT & PROSTHESIS 1992 left, Dr Ricardo TOTAL HIP REPLACEMENT & PROSTHESIS 10/2000 right , Dr Ricardo at [facility] Family History Problem Relation Age of Onset Cancer Mother cancer of bone Lung Disorder Father old age with heart failure Heart disease Father Lung Disorder Brother smoker Heart attack Brother age 62 Heart disease Brother angina No Known Problems Son No Known Problems Daughter No Known Problems Daughter Has patient ever had cancer? History of cancer, type: basal cell carcinoma and location: nose Social History Tobacco Use Smoking status: Never Smoker Smokeless tobacco: Never Used Substance Use Topics Alcohol use: Yes Comment: occ-once every couple of months Vaping/E-Cigarette Use Vaping/E-Cigarette Use Never User Vaping/E-Cigarette Substances Vaping/E-Cigarette Devices Tobacco/Alcohol screening completed today? Yes Hospital Care: Admissions (within the last year): Not Applicable ER within 30 days: No Does the patient have an Advance Directives/Living Will? Yes Last Physical Exam: Last physical exam: 04/08/2020 Does patient see primary provider regularly? Yes Does patient see other providers? Yes, Specialist Patient Care Team updated? Yes- added pain mgmt provider, opthomologist and dentist Review of patient's allergies indicates: No Known Allergies Immunization History Administered Date(s) Administered COVID-19 mRNA, LNP-s, No Preserve, 2-Dose Series (Moderna) 07/02/2020, 07/30/2020 Pneumococcal Conjugate Vacc, 13 Valent (Prevnar) 09/22/2014 Pneumococcal Polysaccharide PPV23 (Pneumovax) 03/12/2002 Seasonal Influenza, Quadrivalent, No Preserve, 6 Mons & Above, IM 03/23/2017, 03/14/2018 Seasonal Influenza, Quadrivalent, No Preserve, Adjuvanted, 65+ Yrs, IM 04/08/2020, 06/05/2020 Seasonal Influenza, Quadrivalent, No Preserve, IM 04/06/2015, 04/11/2016 Seasonal Influenza, Trivalent, Adjuvanted, 65+ yrs 03/20/2019 Seasonal Influenza, Trivalent, with Preserve, 3yr & Above, Split 03/12/2002, 03/12/2003, 03/01/2006, 02/22/2007, 03/30/2007, 04/28/2008, 02/04/2009, 02/17/2010, 03/18/2011, 03/20/2012, 04/25/2013, 03/10/2014 TD, Preservative Free 04/28/2008, 04/21/2012 TDAP (age 10 and older)(Boostrix) 08/28/2018 Varicella Zoster Vaccine (Adult) 06/11/2008 Zoster Vaccine Recombinant (Shingrix) 11/18/2019, 02/26/2020 Current Outpatient Medications Medication Sig Dispense Refill Rosuvastatin Calcium 20 MG Oral Tablet (Crestor) take 1 tablet by mouth once daily 90 Tab 2 Famotidine 20 MG Oral Tablet (Pepcid) Take 1 Tab by mouth 2 times a day. 60 Tab 11 Metoprolol Succinate ER 25 MG Oral Tablet Extended Release 24 Hour (toPROL XL) Take 0.5 Tabs bymouth daily. 45 Tab 3 amLODIPine Besylate 2.5 MG Oral Tablet (NORVASC) Take 1 Tab by mouth daily. 31 Tab 5 Lisinopril 10 MG Oral Tablet (PRINIVIL) take 1 tablet by mouth once daily 90 Tab 3 travoprost, MAYA Free, (TRAVATAN Z) 0.004 % ophthalmic solution instill 1 drop into both eyes every evening 2.5 mL 5 Diclofenac Sodium (VOLTAREN) 1 % gel Place 4 g topically on the skin 4 times a day. To affectedarea as directed. 100 g 5 cyclobenzaprine (FLEXERIL) [...] once a day with food 100 5 Meclizine HCl 12.5 MG Oral Tablet (ANTIVERT) Take 1 Tab by mouth 3 times a day as needed for Dizziness. (Patient not taking: Reported on 08/28/2020) 30 Tab 0 rOPINIRole HCl 0.25 MG Oral Tablet (REQUIP) take 1 tablet by mouth at bedtime (Patient not taking: Reported on 08/28/2020) 90 Tab 3 nitroglycerin (NITROSTAT) 0.4 MG SUBL 1 every 5 min as needed with chest pain up to 3 doses in 15 minutes 25 Tab 11 Patient Active Problem List Diagnosis Code Advance [...] of lower extremity Z86.718 Benign hypertension with CKD (chronic kidney disease) stage III I12.9, N18.30 Medication Compliance: Patient is able to obtain all of her medications? Yes Patient takes medications as prescribed? Yes Patient manages own medications: Yes Patient uses a pill box? Yes, refill(s) completed by self Dental Exam: Yes: Every 6 Months - PT has an upper partial Eye Screening: Yes: Every 6months Are you having trouble with hearing? No Do you use an assistive device to help your hearing? No, PT has hearing aides made approx 10-12 years ago but reports that they do not work. PT is possibly looking into getting new hearing aides at [facility]. PT had not trouble hearing during this exam. Exercise Screening: does not exercise regularly, but lives a very active lifestyle Nutrition Assessment: Eats a balanced diet, Eats three meals a day and eats smaller portions. PT recently switched from full caffeine coffee to half caffeine to improve GERD symptoms. PT also eats 3 prunes every morning. Pain Screening: Are you having any pain? No- PT reports having pain several days a week, exasperated by activities like raking leaves and planting rehman. PT takes Tylenol and Voltaren gel for pain. Sleep Screening Tool 'STOP': 1. Do you [...] on medication(s) to control high blood pressure? No SCORE: If you check YES to two or more questions, make a referral for Obstructive Sleep Apnea PT declined Sleep Study Patient and Caregiver Support System: Patient lives with children- adult daughter lives in the basement of the home Means of Transportation: Drives. Not a concern. Patient lives in Two Story - How many stairs: 12-15, laundry is in the basement, stairs have handrails. PT reports that she takes her time and always uses the rails when taking the steps Community Resources: Not Applicable Functional Status and ADL Skills: Has patient ever had an amputation? No Functional Assessment: 90- Able to carry on normal activity, minor symptoms of disease Ambulation: Patient ambulates without assistive device. Independent Dressing: Gets clothes and dresses without any assistance: Independent Able to move freely in chair or bed including turning over: Independent Repositioning (bed or chair): Not applicable Transfers: Independent Toileting: Goes to bathroom, uses toilet, arranges clothes and returns without any assistance: Independent Toileting: continent of bladder and continent of bowel Feeding: Self Bathing: Self; shower- floor is textured Requires none assistance with ADLs. Instrumental ADL's: Shopping: Independent Housekeeping: Independent Handling Finances: Independent DME Vendor Name: N/A Fall Risk Assessment: Can the patient demonstrate [...] Factors Present: Uses more than 4 medications Older than age 70 Nbc-Ci-dhk-Go Test: Time began at 0900. Patient stood from sitting position and walked approximately 10 feet, returned and sat down. Total time for fza-ry-byk-go test was 10 seconds. Xhf-Nl-yaa-Go Test completed? Yes Gender Specific Preventative Plan: Health Maintenance Topic Date Due *DEPRESSION SCREENING,ANNUAL FOR PTS 12 AND OVER Never done Dexa Scan 10/30/2020 CKD PHOS USE SMARTSET 69709 11/17/2020 CKD GFR USE SMARTSET 76364 12/30/2020 CKD HGB USE SMARTSET 59379 04/06/2021 DIABETES SCREEN EVERY 3 YRS-AGE 45 AND ABOVE 07/02/2023 DTaP,Tdap,and Td Vaccines (2 - Td) 08/28/2028 Influenza Vaccine (FLU shot) Completed Zoster Vaccines Completed Pneumococcal Vaccine: 65+ Years Completed COVID-19 Vaccine Completed MENINGOCOCCAL (MENACTRA/MENVEO) Aged Out Follow Up/ Referrals/Handouts: Falls Risk screening - Provided handouts on improving balance and preventing falls in the home Exercise screening - Provided exercise handouts Pain screening - PT is to follow-up with Pain Management provider next week Depression screening- completed during visit and no follow up is required. PT scored a 0. Routine general medical examination at a health care facility (Primary) Macular degeneration Glaucoma of both eyes Continue to monitor and continue with current medications. Continue to follow up with cab supervisor . 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 neurogenic claudication Continue to monitor and follow up with pain mgmt for additional injections/therapy Kidney disease, chronic, stage III (GFR 30-59 ml/min) HTN, goal below 140/90 BP Readings from Last 3 Encounters: 08/28/20 122/64 08/06/20 148/80 06/16/20 130/64 Continue to monitor and continue with current medications. PT is within goal. Vitamin D deficiency Component Latest Ref Rng & Units 07/02/2020 25-Hydroxy Vitamin D >19 ng/mL 57 Continue to monitor and continue with current medications. S/P angioplasty with stent Chronic ischemic heart disease Asymptomatic bilateral carotid artery stenosis Continue to monitor. Continue with current medications. Follow up with cardiology. Dyslipidemia, goal LDL below 70 Component Latest Ref Rng & Units 04/06/2020 HOURS FASTING hours >8 HOURS Triglycerides 0 - 174 mg/dL 159 Cholesterol <200 mg/dL 142 HDL Cholesterol >49 mg/dL 54 NON-HDL CHOLESTEROL 0 - 159 mg/dL 88 LDL Cholesterol (Direct Measure) 0 - 129 mg/dL 67 Continue to monitor and continue with current medications. Eat a diet low in satured fat and high in fiber. Status post bilateral knee replacements Status post bilateral hip replacements Continue to monitor. Continue to stay active. PT is up-to-date on the Flu, Shingrix, PNA and COVID-19 vaccines. Would patient like to schedule next AWV visit? Yes Rosalind Griffith RN documented in this encounter Miscellaneous Notes * Addendum Note - Rosalind Griffith RN - 08/28/2020 11:53 AM EDT Addended by: ROSALIND GRIFFITH on: 08/28/2020 11:53 AM Modules accepted: Orders * Addendum Note - Rosalind Griffith RN - 08/28/2020 11:47 AM EDT Addended by: ROSALIND GRIFFITH on: 08/28/2020 11:47 AM Modules accepted: Orders documented in this encounter Plan of Treatment Upcoming Encounters Date Type Specialty Care Team Description 10/06/2020 Office Visit Family Medicine Bj Mario, DO [address] [place] [address] [phone] 01/04/2021 Office Visit Cardiology Yvon Harris PA-C [address] [facility] [place] [address] [phone] Health Maintenance Due Date Last Done Comments *DEPRESSION SCREENING,ANNUAL FOR PTS 12 AND OVER 05/30/2020 Dexa Scan 10/30/2020 10/30/2013, 10/20, 08/24/2009, Additional history exists CKD PHOS USE SMARTSET 96229 11/17/202010/21, 07/15/2019, 08/13/2018, Additional history exists CKD GFR USE SMARTSET 24480 12/30/202007/02, 04/06/2020, 11/18/2019, Additional history exists CKD HGB USE SMARTSET 37073 04/06/202104/06, 04/04/2019, 08/13/2018, Additional history exists DIABETES SCREEN EVERY 3 YRS-AGE 45 AND ABOVE 07/02/2023 07/02/2020, 04/06/2020, 11/18/2019, Additional history exists DTaP,Tdap,and Td Vaccines [...] as of this encounter Visit Diagnoses Diagnosis Routine general medical examination at a health care facility- Primary Kidney disease, chronic, stage III (GFR 30-59 ml/min) Chronic kidney disease, Stage III (moderate) Macular degeneration Macular degeneration (senile) of retina, unspecified 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 neurogenic claudication Spinal stenosis, lumbar region, without neurogenic claudication Glaucoma of both eyes Unspecified glaucoma HTN, goal below 140/90 Unspecified essential hypertension Vitamin D deficiency Unspecified vitamin D deficiency Status post bilateral hip replacements Hip joint replacement by other means Chronic ischemic heart disease Chronic ischemic heart disease, unspecified S/P angioplasty with stent Postsurgical percutaneous transluminal coronary angioplasty status Dyslipidemia, goal LDL below 70 Other and unspecified hyperlipidemia Asymptomatic bilateral carotid artery stenosis Occlusion and stenosis of multiple and bilateral precerebral arteries without mention of cerebral infarction Status post bilateral knee replacements Knee joint replacement by other means Inverted nipple Other sign and symptom in breast documented in this encounter Advance Directives Documents on File Type Date Recorded 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
--- OUTSIDE RECORDS SUMMARY | 2023-01-22 22:55 | External Medical Summary | Summary of Care ---
Author Name Unknown Organization [place] [address] Care Team Providers Care Research Worker Kitchen Name Role Phone Bj Mario DO Primary Care Provider [phone] [phone] Reason for Visit * Reason Onset Date Comments Follow Up 09/03/2020 Encounter Details Date Type Department Care Team Description 09/03/2020 Telephone Interventional Pain Center, [facility] [address] [place] [address] CousinsPaulDO [address] [place] [address] [phone] Follow Up Allergies No Known Active Allergiesdocumented as of this encounter (statuses as of 09/03/2020) Medications Medication Sig Dispensed Refills Start Date [...] as of this encounter (statuses as of 09/03/2020) Active Problems Problem Noted Date Benign hypertension with CKD (chronic ki dney disease) stage III 09/06/2017 History of deep vein thrombosis (DVT) of lower extremity 09/08/2016 Status post insertion of drug eluting co ronary artery stent 04/07/2015 Overview: 2009, DUS placed in the mid RCA at [facility] Asymptomatic bilateral carotid artery st enosis 06/10/2014 Raynaud phenomenon 06/13/2011 Knee joint replacement status 01/13/2011 Overview: 2014, right Dr Ricardo [facility] 2011: left Dr Priya Ricardo [facility] Dyslipidemia, goal LDL below 70 09/21/19 11 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 neurogenic claudication 02/17/2010 Vitamin D deficiency 10/13/2009 Chronic ischemic heart disease 0 S/P angioplasty with stent 06/30/2009 Overview: 07/01/2009 DUS in the RCA at [facility] Non-toxic multinodular goiter 04/21/2009 Overview: [...] as of this encounter (statuses as of 09/03/2020) Resolved Problems Problem Noted Date Resolved Date [...] as of this encounter (statuses as of 09/03/2020) Immunizations Name Administration Dates Next Due COVID-19 [...] encounter Miscellaneous Notes * Telephone Encounter - Lorri Gotti LPN - 09/03/2020 2:30 PM EDT Patient reports 65% improvement after injection, pain is tolerable at this point. Will call if needed in future. documented in this encounter Plan of Treatment Upcoming Encounters Date Type Specialty Care Team Description 09/08/2020 Imaging Radiology 09/08/2020 Imaging Radiology 10/06/2020 Office Visit Family Medicine Bj Mario, DO [address] [facility] [address] [phone] 01/04/2021 Office Visit Cardiology Yvon Harris PA-C [address] [facility] [place] [address] [phone] Health Maintenance Due Date Last Done Comments Dexa Scan 10/30/2020 10/30/2013, 10/20, 08/24/2009, Additional history exists CKD PHOS USE SMARTSET 95133 11/17/202010/21, 07/15/2019, 08/13/2018, Additional history exists CKD GFR USE SMARTSET 08748 12/30/202007/02, 04/06/2020, 11/18/2019, Additional history exists CKD HGB USE SMARTSET 52639 04/06/202104/06, 04/04/2019, 08/13/2018, Additional history exists DIABETES [...] Documents on File Type Date Recorded Patient Returns Clerk Expl anation Advance Directives and Living Will 08/13/2009 12:00 AM LIVING WILL Power of Vice Admiral 08/13/2009 12:00 AM DOMONIQUE R OF [place] ORGANIST DURABLE HEALTH POA AND HEALTH CARE TREATMENT INSTR Power of Vice Admiral 08/13/2009 12:00 AM DOMONIQUE R OF [place] ORGANIST DURABLE HEALTH CARE POA Advanced Directive service [...]
--- OUTSIDE RECORDS SUMMARY | 2023-01-22 22:55 | External Medical Summary ---
Author Name Unknown Address Unknown Organization K09:[facility] [place] [address] Laboratory Report Ordering Provider Test Date Status KENNETH HANKINSDANILO 09/15/2020 08:32:15 Final Observation Date Value Abnormality Reference (Units ) Status BUN 09/15/2020 08:32:15 21 Above high normal 6-20 (mg/dL) Final Creatinine 09/15/2020 08:32:15 1.4 Above high normal 0.5-1.0 (mg/dL) Final Glomerular filtration rate/1.73 sq M.predicted [Volume Rate/Area] in Serum, Plasma or Blood by Creatinine-based formula (CKD-EPI) 09/15/2020 08:32:15 35.8 Below low normal >=60.0 (mL/min) Final Performing Location [facility] [place] [address]
--- OUTSIDE RECORDS SUMMARY | 2023-01-22 22:55 | External Medical Summary | Summary of Care ---
Author Name Unknown Organization [place] [address] Care Team Providers Care Campaign Consultant Name Role Phone Bj Mario DO Primary Care Provider [phone] Reason for Visit * Reason Onset Date Comments Appointment 08/28/2020 Encounter Details Date Type Department Care Team Description 08/28/[address] [facility] [place] [address] [place] [address] Rosalind German, RN Appointment Allergies No Known Active Allergiesdocumented as of [...] encounter Miscellaneous Notes * Telephone Encounter - Deanna Gaytan OSA - 08/28/2020 1:52 PM EDT Diag Mammo/US scheduled for 09/08/2020 Antoine Landas. * Telephone Encounter - Rosalind German RN - 08/28/2020 12:01 PM EDT PT needs to be scheduled for a mammogram and breast US. documented in this encounter Plan of Treatment Upcoming Encounters Date Type Specialty Care Team Description 09/08/2020 Imaging Radiology 09/08/2020 Imaging Radiology 10/06/2020 Office Visit Family Medicine Bj Mario, DO [address] [facility] [address] [phone] 01/04/2021 Office Visit Cardiology Yvon Harris PA-C [address] [facility] [place] [address] [phone] Scheduled Orders Name Type Priority Associated Diagnoses Orde r Schedule MAMMOGRAM DIAGNOSTIC BILATERAL Medical Imaging Routine Inverted nipple Ordered: 08/28/2020 US BREAST LIMITED RIGHT Medical Imaging Routine Inverted nipple Ordered: 08/28/2020 Health Maintenance Due Date Last Done Comments *DEPRESSION SCREENING,ANNUAL FOR PTS 12 AND OVER 05/30/2020 Dexa Scan 10/30/2020 10/30/2013, 10/20, 08/24/2009, Additional history exists CKD PHOS USE SMARTSET 64291 11/17/202010/21, 07/15/2019, 08/13/2018, Additional history exists CKD GFR USE SMARTSET 44125 12/30/202007/02, 04/06/2020, 11/18/2019, Additional history exists CKD HGB USE SMARTSET 06412 04/06/202104/06, 04/04/2019, 08/13/2018, Additional history exists DIABETES [...] as of this encounter Visit Diagnoses Diagnosis Inverted nipple- Primary Other sign and symptom in breast documented in this encounter Advance Directives Documents on File Type Date Recorded Patient Coding Technician Expl anation Advance Directives and Living Will 08/13/2009 12:00 AM LIVING WILL Power of Spanish Lecturer 08/13/2009 12:00 AM DOMONIQUE R OF PLATE INSPECTOR DURABLE HEALTH POA AND HEALTH CARE TREATMENT INSTR Power of Spanish Lecturer 08/13/2009 12:00 AM DOMONIQUE R OF PLATE INSPECTOR DURABLE HEALTH CARE POA Advanced Directive service [...]
--- OUTSIDE RECORDS SUMMARY | 2023-01-22 22:55 | External Medical Summary | Summary of Care ---
Author Name Unknown Organization [place] [address] Care Team Providers Care Transactional Attorney Name Role Phone Bj Mario DO Primary Care Provider [phone] [phone] Reason for Visit * Reason Comments NEW PATIENT right nipple retract ion * Evaluate & Treat - Unlimited Visits (Within 10 days (routine)) Status Reason Specialty Diagnoses / Procedures Referred By Contact Referred To Contact Pending Review Specialty Services Required General Surgery Diagnoses Nipple retraction Bj Mario DO [address] [place] [address] Vanessa Brambila MD [address] [place] [address] Encounter Details Date Type Department Care Team Description 09/29/2020 Office Visit General Surgery, [facility] [address] [place] [address] Vanessa Brambila MD [address] [place] [address] [phone] Inversion of right nipple*; Encounter for screening mammogram for breast cancer Allergies No Known Active Allergiesdocumented as of this encounter (statuses as of 09/29/2020) Medications Medication Sig Dispensed Refills Start Date [...] 04/06/2020 Active Famotidine 20 MG Oral Tablet (Pepcid)Indications:Ga [...] as of this encounter (statuses as of 09/29/2020) Active Problems Problem Noted Date Benign hypertension [...] as of this encounter (statuses as of 09/29/2020) Resolved Problems Problem Noted Date Resolved Date [...] as of this encounter (statuses as of 09/29/2020) Immunizations Name Administration Dates Next Due COVID-19 [...] Sign Reading Time Taken Comments Blood Pressure - - Pulse - - Temperature - - Respiratory Rate - - Oxygen Saturation - - Inhaled Oxygen Concentration - - Weight 89.4 kg (197 lb) 09/29/2020 9:01 AM EDT Height 157.5 cm (5' 2") 09/29/2020 9:01 AM EDT Body Mass Index 36.03 09/29/2020 9:01 AM EDT documented in this encounter Progress Notes * Vanessa Brambila MD - 09/29/2020 9:05 AM EDT [facility] GENERAL SURGERY NEW BREAST EXAM CLINIC NOTES Chief Complaint Patient presents with NEW PATIENT right nipple retraction REASON FOR CONSULTATION: Right nipple retraction HPI: Eugenia Hu is a 85 year old female who is seen at the request of Bj Mario DO for evaluation of right nipple retraction which started recently. Last mammogram prior was in 2016. Was sent for diagnostic imaging which showed no worrisome changes. She is here to discuss further. No breast pain or nipple discharge. No nipple crusting. Does have pain in the right arm, gioing on the same period of time. Occasional pain in her neck on the right side also. No breast cancer in her family. No prior breast procedures. BREAST ROS: No new breast lumps or masses, No severe breast pain, No nipple discharge Accompanied by her daughter today. GYNECOLOGIC HISTORY: LMP: No LMP recorded. Patient has had a hysterectomy and unilateral SO. Done after a tubular . Menarche at age: 13 Menopause at age: n/a Number of children: Patient's age at first live : 18 Did you breast feed any of your children: Yes Ever take oral contraceptives? Yes, history of use for less than 1 year(s) Ever take estrogen? Yes, history of use for over 10 year(s) RADIOLOGIC INTERPRETATION: Diagnostic bilateral mammography performed 09/08/2020 at [facility] and is interpreted asBiRads 2. Findings Right MAMMOGRAM DIAGNOSTIC KT The right breast has scattered areas of fibroglandular density. Right nipple is retracted, unchanged since mammogram dating back to 2014 and 2013.No new dominant mass or clustered microcalcificationssuspicious for malignancy are identified. US BREAST LIMITED RIGHT Right breast tissue demonstrates heterogeneous echogenicity. There is no evidence of suspicious masses or other abnormal findings in the right breast. Targeted ultrasound with attention to retroareolar region demonstrates no focal abnormality, cystic or solid. Benign focal duct ectasia is noted. Nointraductal mass identified. Left MAMMOGRAM DIAGNOSTIC KT The left breast has scattered areas of fibroglandular density. There is no evidence of suspicious masses, calcifications, or other abnormal findings in the left breast. Impression Bilateral No mammographic evidence of malignancy. BI-RADS Category: 2 - Benign. Recommendation Clinical management and follow-up of the right nipple changes is advised as deemed clinically necessary. Patient is advised to follow-up with referring clinician. Surgical consultation is a consideration for further evaluation. MY INTERPRETATION: Concur - films personally reviewed with pt. FAMILY HISTORY: Family history of breast cancer: None Family history of ovarian cancer: None Family History Problem Relation Age of Onset Cancer Mother cancer of bone Lung Disorder Father old age with heart failure Heart disease Father Lung Disorder Brother smoker Heart attack Brother age 62 Heart disease Brother angina No Known Problems Son No Known Problems Daughter No Known Problems Daughter PAST MEDICAL HISTORY: 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 2000, left 1992 HTN, goal below 140/90 Knee joint replacement status 01/13/[address] Priya Ricardo [facility] Knee joint replacement status 12/15/2013 right [facility] Macular degeneration Ugo Simon MD Menopause 1974 Need for prophylactic hormone replacement therapy (postmenopausal) 1974 Non-toxic multinodular goiter 04/2009 seen on US, repeat -10/2009 Other screening mammogram 10/24/03 Birad Code 2 Other specified glaucoma both eyes, Paul Simon MD, drops used, timolol S/P angioplasty with stent 06/30/09 [facility] Status post insertion of drug eluting coronary artery stent 04/07/20152009, DUS placed in the mid RCA at [facility] Vitamin D deficiency 10/13/2009 PAST SURGICAL HISTORY: Past Surgical History: Procedure Laterality Date ARTHROPLASTY KNEE TOTAL Left 01/13/2011 Left, Dr Priya Ricardo [facility] ARTHROPLASTY KNEE TOTAL Right 12/16/13 Right, Dr Priya Ricardo [facility] CARDIAC CATH SCANNED RESULT 06/30/2009 DUS placed in right coronary, [facility] CARPAL TUNNEL SURGERY Bilateral 2014 bilateral COLONOSCOPY 03/22/2006 normal repeat in 2015 COLONOSCOPY, DIAGNOSTIC (RECTUM) 09/01/2016 diverticulosis/COLONOSCOPY FLEXIBLE PROXIMAL DIAGNOSTIC performed by Kaylie Ford MD at ENDOSCOPY [facility] COLONOSCOPY, DIAGNOSTIC (RECTUM) 10/09/2018 diverticulosis/[facility] COLONOSCOPY, GI REFERRAL OP 03/22/2005 diverticulosis, repeat in 10 years for surveillance reasons COLORECTAL CANCER SCREEN;W/FLE 1999 normal, Dr Estrella DENTAL SURGERY PROCEDURE NEC 1970 Dental Surgery Procedure tumor benign palate DEXA SCAN/BONE MINERAL AXIAL 07/2002 normal, repeat 2007 DEXA SCAN/BONE MINERAL AXIAL 07/20/2006 normal repeat in 6-8 years EGD, FLEXIBLE, DIAGNOSTIC 01/30/2019 acid reflux, Schatzki ring, hiatal hernia / [facility] EXERCISE ECHO 09/02/2002 normal, Dr Genao [...] performed by Paul Berg, DO at [facility] MAMMOGRAM - BILATERAL [...] one ovary left in, Dr Chakraborty in [facility] REMOVE CATARACT, INSERT LENS PROSTH Right 01/05/[address] Messi Simon REMOVE CATARACT, INSERT LENS PROSTH Left 01/28/[address] Messi Simon STENT, COATED/COVERED, WITH DELIVERY SYSTEM 06/30/2009 [employer] [facility] Eluding Stent [facility] TOTAL HIP REPLACEMENT & PROSTHESIS 1992 left, Dr Ricardo TOTAL HIP REPLACEMENT & PROSTHESIS 10/2000 right , Dr Ricardo at [facility] CURRENT OUTPATIENT PRESCRIPTIONS: Current Outpatient Medications Medication Sig Dispense Refill [...] once a day with food 100 5 ALLERGIES: Patient has no known allergies. SOCIAL HISTORY: Social History Tobacco Use Smoking status: Never Smoker Smokeless tobacco: Never Used Substance Use Topics Alcohol use: Yes Comment: occ-once every couple of months Vaping/E-Cigarette Use Vaping/E-Cigarette Use Never User Vaping/E-Cigarette Substances Vaping/E-Cigarette Devices ROS: GEN: no weight loss, fever, fatigue HEENT: no changes in vision or hearing, no sinus problems, no sore throat, no hoarseness RESPIRATORY: no cough, wheezing, SOB or change in breathing CARDIOVASCULAR: no exertional chest pain, dyspnea, palpitations GI: no melena, hemetemesis, no vomiting or diarrhea : no dysuria, hematuria, frequency MUSCULOSKELETAL: no change in joint pains, no new arthritis PSYCHIATRIC: no significant anxiety or depression, unchanged sleep pattern HEME: no bleeding tendency, no clotting tendency NEURO: no significant headache, no seizures , no tremors SKIN: no new rashes, no itching PHYSICAL EXAMINATION Height (!) 1.575 m (5' 2"), weight 89.4 kg (197 lb), not currently . Constitutional: alert, healthy Head: normocephalic, atraumatic Eyes: conjunctiva non-injected, sclera white Ears: pinna normal shape and color Neck: supple, no adenopathy Lungs: clear to auscultation, breath sounds are equal and symmetric Heart: regular rate & rhythm and no murmur, gallops or rubs Abdomen: soft, non-tender Back: normal curvature Extremities: no edema Neuro: alert, gait normal, motor normal BREAST EXAMINATION: Right Breast: Right Breast: Masses noted: No Post XRT edema: No Post XRT erythema: No Other palpable abnormality: No Skin: Skin retraction: No Peau d'orange: No Telangectasia: No Scar(s) present: No Other changes: No Right Nipple: Nipple inversion: Yes, no mass present Pagets: No Nipple discharge: No Right Lymph Nodes: Arm edema: No Palpable axillary adenopathy: No Palpable supraclavicular adenopathy: No Previous axillary incision: No Left Breast: Left Breast: Masses noted: No Post XRT edema: No Post XRT erythema: No Other palpable abnormality: No Skin: Skin retraction: No Peau d'orange: No Telangectasia: No Scar(s) present: No Other changes: No Left Nipple: Nipple inversion: No Pagets: No Nipple discharge: No Left Lymph Nodes: Arm edema: No Palpable axillary adenopathy: No Palpable supraclavicular adenopathy: No Previous axillary incision: No RISK FACTORS FOR BREAST CANCER: Family history of breast cancer: No Known or suspected genetic mutation: No Previous suspicious breast biopsies: No Disaster Director factors: No Other: none ASSESSMENT: 85 yr old woman with right nipple inversion/ retraction, normal clinical exam except for the finding of nipple inversion, normal mammogram/ ultrasound. Explained that this is likely a benign finding and the rate of malignancy should be about 5%. Options would include repeating mammography in one year vs excisional biopsy. Unfortunately, as nothing is present on imaging or exam, biopsywould involve a surgical procedure to excise the tissue under the nipple. This is an outpatient surgery, is unlikely to result in an everted nipple, but would provide a tissue diagnosis. Given the benign imaging/ exam findings, I am comfortable with monitoring with repeat imaging. After discussion, she is in agreement to repeat mammogram in 1 yr. PLAN: In conclusion, our recommendation for this patient is recheck mammogram in 1 yr. Return if changes worsen. Vanessa Brambila M.D. 09/29/2020 9:39 AM documented in this encounter Nursing Notes * Rosemarie Nava LPN - 09/29/2020 9:02 AM EDT Chief Complaint Patient presents with NEW PATIENT right nipple retraction Patient presents today for evaluation of right nipple retraction. US/mammogram 09/09/20. BREAST HISTORY: Mass: No Breast Pain: no Nipple discharge: No Previous problems/surgeries: None Breast Cancer: no Other Cancers: yes-skin GYNECOLOGIC HISTORY: LMP: No LMP recorded. Patient has had a hysterectomy. Menarche at age: 13 Menopause at age: n/a Number of children: Patient's age at first live : 18 Did you breast feed any of your children: Yes Ever take oral contraceptives? Yes, history of use for less than 1 year(s) Ever take estrogen? Yes, history of use for over 10 year(s) Family History of Breast Cancer: No documented in this encounter Plan of Treatment Upcoming Encounters Date Type Specialty Care Team Description 10/06/2020 Office Visit Family Medicine Bj Mario, DO [address] [facility] [place] [address] [phone] 01/04/2021 Office Visit Cardiology Yvon Harris PA-C [address] [facility] [place] [address] [phone] 09/09/2021 Imaging Radiology Scheduled Orders Name Type Priority Associated Diagnoses Orde r Schedule MAMMOGRAM SCREENING BILATERAL Medical Imaging Routine Encounter for screening mammogram for breast cancer Expected: 09/09/2021 (Approximate), Expires: 10/30/2021 Health Maintenance Due Date Last Done Comments Dexa Scan 10/30/2020 10/30/2013, 10/20, 08/24/2009, Additional history exists CKD PHOS USE SMARTSET 33488 11/17/202010/21, 07/15/2019, 08/13/2018, Additional history exists CKD GFR USE SMARTSET 78812 03/17/202109/15, 07/02/2020, 04/06/2020, Additional history exists CKD HGB USE SMARTSET 15195 04/06/202104/06, 04/04/2019, 08/13/2018, Additional history exists DIABETES [...] as of this encounter Visit Diagnoses Diagnosis Inversion of right nipple- Primary Encounter for screening mammogram for breast cancer documented in this encounter Advance Directives Documents on File Type Date Recorded Patient Retail Stock Clerk Expl anation Advance Directives and Living Will 08/13/2009 12:00 AM LIVING WILL Power of Private Duty Aide 08/13/2009 12:00 AM DOMONIQUE R OF EMPLOYEE RELATIONS ADVISOR DURABLE HEALTH POA AND HEALTH CARE TREATMENT INSTR Power of Private Duty Aide 08/13/2009 12:00 AM DOMONIQUE R OF EMPLOYEE RELATIONS ADVISOR DURABLE HEALTH CARE POA Advanced Directive service [...]
--- OUTSIDE RECORDS SUMMARY | 2023-01-22 22:55 | External Medical Summary | Summary of Care ---
Author Name Unknown Organization [place] [address] Care Team Providers Care Technical Lead Name Role Phone Bj Mario DO Primary Care Provider [phone] [phone] Reason for Visit * Reason Onset Date Comments Appointment 08/28/2020 Encounter Details Date Type Department Care Team Description 08/28/2020 Telephone Family [facility] [place] [address] [place] [address] Rosalind German, RN Appointment Allergies No Known [...] placed in the mid RCA at [facility] Asymptomatic bilateral carotid artery st enosis 06/10/2014 Raynaud phenomenon 06/13/2011 Knee joint replacement status 01/13/2011 Overview: 2014, right Dr Ricardo [facility] 2011: left Dr rPiya Ricardo [facility] Dyslipidemia, goal LDL below 70 09/21/19 11 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 neurogenic claudication 02/17/2010 Vitamin D deficiency 10/13/2009 Chronic ischemic heart disease 0 S/P angioplasty with stent 06/30/2009 Overview: 07/01/2009 DUS in the RCA at [facility] Non-toxic multinodular goiter 04/21/2009 Overview: [...] encounter Miscellaneous Notes * Telephone Encounter - Rosalind German RN - 08/28/2020 12:01 PM EDT PT needs to be scheduled for a mammogram and breast US. documented in this encounter Plan of Treatment Upcoming Encounters Date Type Specialty Care Team Description 10/06/2020 Office Visit Family Medicine Bj Mario, [address] [facility] [place] [place] [address] [phone] 01/04/2021 Office Visit Cardiology Yvon Harris PA-C [address] [facility] [place] [address] [phone] Scheduled Orders Name Type Priority Associated Diagnoses Orde r Schedule MAMMOGRAM DIAGNOSTIC BILATERAL Medical Imaging Routine Inverted nipple Ordered: 08/28/2020 US BREAST LIMITED RIGHT Medical Imaging Routine Inverted nipple Ordered: 08/28/2020 Health Maintenance Due Date Last Done Comments *DEPRESSION SCREENING,ANNUAL FOR PTS 12 AND OVER 05/30/2020 Dexa Scan 10/30/2020 10/30/2013, 10/20, 08/24/2009, Additional history exists CKD PHOS USE SMARTSET 27025 11/17/202010/21, 07/15/2019, 08/13/2018, Additional history exists CKD GFR USE SMARTSET 58319 12/30/202007/02, 04/06/2020, 11/18/2019, Additional history exists CKD HGB USE SMARTSET 33970 04/06/202104/06, 04/04/2019, 08/13/2018, Additional history exists DIABETES [...] Documents on File Type Date Recorded Patient Qa Tester Expl anation Advance Directives and Living Will 08/13/2009 12:00 AM LIVING WILL Power of Division Service Manager 08/13/2009 12:00 AM DOMONIQUE R OF [place] OPERATOR DURABLE HEALTH POA AND HEALTH CARE TREATMENT INSTR Power of Division Service Manager 08/13/2009 12:00 AM DOMONIQUE R OF [place] OPERATOR DURABLE HEALTH CARE POA Advanced Directive service [...]
--- OUTSIDE RECORDS SUMMARY | 2023-01-22 22:55 | External Medical Summary | Summary of Care ---
Author Name Unknown Organization [place] [address] Care Team Providers Care Cottrell Blower Name Role Phone Bj Mario DO Primary Care Provider [phone] Reason for Visit * Reason Comments Adult Annual Wellness Visit, Subsequent Visit Encounter Details Date Type Department Care Team Description 08/28/2020 Nurse Only Ancillary Scenery [place] [address] [place] [address] Pauline, Nurse Annual Wellness Scenery [address] [place] [address] [phone] Adult Annual Wellness Visit, Subsequent Visit Allergies [...] DUS placed in the mid RCA at [facility] Asymptomatic bilateral carotid artery st enosis 06/10/2014 Raynaud phenomenon 06/13/2011 Knee joint replacement status 01/13/2011 Overview: 2014, right Dr Ricardo [facility] 2011: left Dr Priya Ricardo [facility] Dyslipidemia, goal LDL below 70 09/21/19 11 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 neurogenic claudication 02/17/2010 Vitamin D deficiency 10/13/2009 Chronic ischemic heart disease 0 S/P angioplasty with stent 06/30/2009 Overview: 07/01/2009 DUS in the RCA at [facility] Non-toxic multinodular goiter 04/21/2009 Overview: [...] >19 ng/mL Sincerely, Bj Mario, DO 08/28/2020 [facility] Calendar (as of Last Office/Telemedicine Visit: [...] your insurance company to determine what's covered. [employer] is a great tool that helps you review your medical record online, including test results, doctor notes and your health summary. You can also schedule appointments with me and other members of your care team, request prescription refills and ask for advice related to your medical conditions at [email or web address]. documented in this encounter Progress Notes * [...] replacement status 01/13/[address] Priya Ricardo [facility] Knee joint replacement status 12/15/2013 right [facility] Macular degeneration Ugo Simon MD Menopause 1974 Need for prophylactic hormone replacement therapy (postmenopausal) 1974 Non-toxic multinodular goiter 04/2009 seen on US, repeat -10/2009 Other screening mammogram 10/24/03 Birad Code 2 Other specified glaucoma both eyes, Paul Simon MD, drops used, timolol S/P angioplasty with stent 06/30/09 [facility] Status post insertion of drug eluting coronary artery stent 04/07/20152009, DUS placed in the mid RCA at [facility] Vitamin D deficiency 10/13/2009 Past Surgical History: Procedure Laterality Date ARTHROPLASTY KNEE TOTAL Left 01/13/2011 Left, Dr Priya Ricardo [facility] ARTHROPLASTY KNEE TOTAL Right 12/16/13 Right, Dr Priya Ricardo [facility] CARDIAC CATH SCANNED RESULT 06/30/2009 DUS placed in right coronary, [facility] CARPAL TUNNEL SURGERY Bilateral 2014 bilateral COLONOSCOPY 03/22/2006 normal repeat in 2015 COLONOSCOPY, DIAGNOSTIC (RECTUM) 09/01/2016 diverticulosis/COLONOSCOPY FLEXIBLE PROXIMAL DIAGNOSTIC performed by Kaylie Ford MD at ENDOSCOPY [facility] COLONOSCOPY, DIAGNOSTIC (RECTUM) 10/09/2018 diverticulosis/[facility] COLONOSCOPY, GI REFERRAL OP 03/22/2005 diverticulosis, repeat in 10 years for surveillance reasons COLORECTAL CANCER SCREEN;W/FLE 1999 normal, Dr Estrella DENTAL SURGERY PROCEDURE NEC 1970 Dental Surgery Procedure tumor benign palate DEXA SCAN/BONE MINERAL AXIAL 07/2002 normal, repeat 2007 DEXA SCAN/BONE MINERAL AXIAL 07/20/2006 normal repeat in 6-8 years EGD, FLEXIBLE, DIAGNOSTIC 01/30/2019 acid reflux, Schatzki ring, hiatal hernia / [facility] EXERCISE ECHO 09/02/2002 normal, Dr Genao INJECT DX/THER SUBSTANCE INTERLAMINAR LUMBAR/SACRAL W IMAGE GUIDE 01/18/2018 INJECTION SPINE LUMBAR OR SACRAL performed by Paul Azam Cousins, DO at [facility] INJECT DX/THER SUBSTANCE INTERLAMINAR LUMBAR/SACRAL W IMAGE GUIDE 02/12/2018 INJECTION SPINE LUMBAR OR SACRAL performed by Adea Cousins, DO at [facility] INJECT DX/THER SUBSTANCE INTERLAMINAR LUMBAR/SACRAL W IMAGE GUIDE 12/27/2018 INJECTION SPINE LUMBAR OR SACRAL performed by Adea Cousins, DO at [facility] INJECT DX/THER SUBSTANCE INTERLAMINAR LUMBAR/SACRAL W IMAGE GUIDE 02/21/2019 INJECTION SPINE LUMBAR OR SACRAL performed by Adea Cousins, DO at [facility] INJECT DX/THER [...] one ovary left in, Dr Chakraborty in [facility] REMOVE CATARACT, INSERT LENS PROSTH Right 01/05/[address] Messi Simon REMOVE CATARACT, INSERT LENS PROSTH Left 01/28/[address] Messi Simon STENT, COATED/COVERED, WITH DELIVERY SYSTEM 06/30/2009 [employer] Drug Eluding Stent [facility] TOTAL HIP REPLACEMENT & PROSTHESIS 1992 left, Dr Ricardo TOTAL HIP REPLACEMENT & PROSTHESIS 10/2000 right , Dr Ricardo at [facility] Family History Problem Relation Age of [...] looking into getting new hearing aides at [facility]. PT had not trouble hearing during this [...] than 4 medications Older than age 70 Hdb-Im-aqb-Go Test: Time began at 0900. Patient stood from sitting position and walked approximately 10 feet, returned and sat down. Total time for spa-un-pik-go test was 10 seconds. Uke-Gb-ijz-Go Test completed? Yes Gender Specific Preventative Plan: Health Maintenance Topic Date Due *DEPRESSION SCREENING,ANNUAL FOR PTS 12 AND OVER Never done Dexa Scan 10/30/2020 CKD PHOS USE SMARTSET 69404 11/17/2020 CKD GFR USE SMARTSET 48739 12/30/2020 CKD HGB USE SMARTSET 89262 04/06/2021 DIABETES SCREEN EVERY 3 YRS-AGE 45 [...] current medications. Continue to follow up with senior software qa engineer . 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 [...] the Flu, Shingrix, PNA and COVID-19 vaccines. PT reported that during her daily self breast exam she noted an inverted nipple. Spoke to PCP and ordered PT to have a mammogram and breast US. Would patient like to schedule next AWV [...] Family Medicine Bj Mario, [address] [place], [place] [address] [phone] 01/04/2021 Office Visit Cardiology Yvon Harris PA-C [address] [place] [address] [phone] Health Maintenance Due Date Last Done Comments *DEPRESSION SCREENING,ANNUAL FOR PTS 12 AND OVER 05/30/2020 Dexa Scan 10/30/2020 10/30/2013, 10/20, 08/24/2009, Additional history exists CKD PHOS USE SMARTSET 90943 11/17/202010/21, 07/15/2019, 08/13/2018, Additional history exists CKD GFR USE SMARTSET 43584 12/30/202007/02, 04/06/2020, 11/18/2019, Additional history exists CKD HGB USE SMARTSET 80381 04/06/202104/06, 04/04/2019, 08/13/2018, Additional history exists DIABETES [...] Documents on File Type Date Recorded Patient Vice President Medical Affairs Expl anation Advance Directives and Living Will 08/13/2009 12:00 AM LIVING WILL Power of Solaris Administrator 08/13/2009 12:00 AM DOMONIQUE R OF DIRECTOR OF PATIENT CARE DURABLE HEALTH POA AND HEALTH CARE TREATMENT INSTR Power of Solaris Administrator 08/13/2009 12:00 AM DOMONIQUE R OF DIRECTOR OF PATIENT CARE DURABLE HEALTH CARE POA Advanced Directive service [...]
--- OUTSIDE RECORDS SUMMARY | 2023-01-22 22:55 | External Medical Summary | Summary of Care ---
Author Name Unknown Organization [place] [address] Care Team Providers Care Retail Sales Vitamin Consultant Name Role Phone Bj Mario DO Primary Care Provider [phone] Reason for Referral * Evaluate & Treat - Unlimited Visits (Within 10 days (routine)) Status Reason Specialty Diagnoses / Procedures Referred By Contact Referred To Contact Pending Review Specialty Services Required General Surgery Diagnoses Nipple retraction Bj Mario DO [address] [place] [address] Vanessa Brambila MD [address] [place], [place] [address] Question Answer Referral Priority Within 10 days (routine) What condition is the patient being seen for? Skin Lesions Comments Nipple retraction and thickening Electronically signed by Bj Mario DO at Reason for Visit * Reason Onset Date Comments Appointment 09/09/2020 Encounter Details Date Type Department Care Team Description 09/09/2020 Telephone Family Practice [facility] [place] [address] [place] [address] Bj Mario DO [address] [facility] [place] [address] [phone] Appointment Allergies No Known Active Allergiesdocumented as of this encounter (statuses as of 09/11/2020) Medications Medication Sig Dispensed Refills Start Date [...] as of this encounter (statuses as of 09/11/2020) Active Problems Problem Noted Date Benign hypertension [...] as of this encounter (statuses as of 09/11/2020) Resolved Problems Problem Noted Date Resolved Date [...] as of this encounter (statuses as of 09/11/2020) Immunizations Name Administration Dates Next Due COVID-19 [...] Telephone Encounter - Bj Mario DO - 09/11/2020 1:24 PM EDT That's okay with me. * Telephone Encounter - Loretta Root LPN - 09/11/2020 12:[address] Mario. * Telephone Encounter - Yeimi Terrell OSA - 09/11/2020 9:05 AM EDT Patient returning call. Patient scheduled an appointment with PCP to discuss before scheduling withGeneral Surgery. Patient doesn't feel like she needs surgery. * Telephone Encounter - Kirsten Cox OSA - 09/10/2020 1:18 PM EDT LMOM to set up gen surgery appt with Dr. Brambila * Telephone Encounter - Bj Mario DO - 09/09/2020 3:26 PM EDT Call from Dr. Bowling: Eugenia had a retracted nipple with some thickening that patient felt wasnew. Mammogram and US looks okay but considering the changes she recommends seeing surgery for fullevaluation. She contacted Dr. Brambila and made her aware also. Please call patient to schedule with Dr. Vanessa Brambila documented in this encounter Plan of Treatment Upcoming Encounters Date Type Specialty Care Team Description 09/15/2020 Office Visit Family Medicine Bj Mario, DO [address] [facility] [place] [address] [phone] 10/06/2020 Office Visit Family Medicine Bj Mario, DO [address] [place] [address] [phone] 01/04/2021 Office Visit Cardiology Yvon Harris PA-C [address] [facility] [place] [address] [phone] Scheduled Referrals Name Type Priority Associated Diagnoses Orde r Schedule SURGERY REFERRAL OP Referral Within 10 da ys (routine) Nipple retraction Ordered: 09/09/2020 Health Maintenance Due Date Last Done Comments Dexa Scan 10/30/2020 10/30/2013, 10/20, 08/24/2009, Additional history exists CKD PHOS USE SMARTSET 06433 11/17/202010/21, 07/15/2019, 08/13/2018, Additional history exists CKD GFR USE SMARTSET 34434 12/30/202007/02, 04/06/2020, 11/18/2019, Additional history exists CKD HGB USE SMARTSET 51824 04/06/202104/06, 04/04/2019, 08/13/2018, Additional history exists DIABETES [...] as of this encounter Visit Diagnoses Diagnosis Nipple retraction- Primary Other sign and symptom in breast documented in this encounter Advance Directives Documents on File Type Date Recorded Patient Artists' Model Expl anation Advance Directives and Living Will 08/13/2009 12:00 AM LIVING WILL Power of Health Administrator 08/13/2009 12:00 AM DOMONIQUE R OF MANAGER UTILIZATION MANAGEMENT DURABLE HEALTH POA AND HEALTH CARE TREATMENT INSTR Power of Health Administrator 08/13/2009 12:00 AM DOMONIQUE R OF MANAGER UTILIZATION MANAGEMENT DURABLE HEALTH CARE POA Advanced Directive service [...]
--- OUTSIDE RECORDS SUMMARY | 2023-01-22 22:55 | External Medical Summary | Summary of Care ---
Author Name Unknown Organization [place] [address] Care Team Providers Care Oil Winterizer Name Role Phone Bj Mario DO Primary Care Provider [phone] Reason for Visit * Reason Comments Re-Check Encounter Details Date Type Department Care Team Description 09/15/2020 Office Visit Family Practice [facility] [place] [address] [facility] [place] [address] Bj Mario DO [address] [facility] [place] [address] [phone] Hypercalcemia*; Retracted nipple; Asymptomatic bilateral carotid artery stenosis Allergies No Known Active Allergiesdocumented as of this encounter (statuses as of 09/15/2020) Medications Medication Sig Dispensed Refills Start Date [...] as of this encounter (statuses as of 09/15/2020) Active Problems Problem Noted Date Benign hypertension [...] as of this encounter (statuses as of 09/15/2020) Resolved Problems Problem Noted Date Resolved Date [...] as of this encounter (statuses as of 09/15/2020) Immunizations Name Administration Dates Next Due COVID-19 [...] Sign Reading Time Taken Comments Blood Pressure 124/60 09/15/2020 7:38 AM EDT Pulse 61 09/15/2020 7:38 AM EDT Temperature 36.6 C (97.8 F) 09/15/2020 7:38 AM ED T Respiratory Rate 12 09/15/2020 7:38 AM EDT Oxygen Saturation 96% 09/15/2020 7:38 AM EDT Inhaled Oxygen Concentration - - Weight 89.4 kg (197 lb) 09/15/2020 7:38 AM EDT Height - - Body Mass Index 36.03 08/28/2020 9:06 AM EDT documented in this encounter Progress Notes * Bj Mario, DO - 09/15/2020 8:12 AM EDT Subjective: Eugenia Hu is a 85 year old female. Chief Complaint Patient presents with Re-Check HPI: Pt noted that her R nipple is retracted. Imagiung showed no cancer. PT says retraction has been for a few months. No family history of breast cancer. Radiology called and recommended a surgical referral. Pt asks about lymph nodes. Has not felt anything in her axilla but has had some lumps in he groin that drained and went away. Hypercalcemia discussed. She has stopped tums and is open to repeat blood work. PMHx, meds, and allergies reviewed Patient Active [...] (chronic kidney disease) stage III I12.9, N18.30 Current Outpatient Medications Medication Sig [...] allergies indicates: No Known Allergies OBJECTIVE: BP 124/60 | Pulse 61 | Temp 36.6 C (97.8 F) (Tympanic) | Resp 12 | Wt 89.4 kg (197 lb) | SpO2 96% | BMI 36.03 kg/m | BSA 1.98 m Estimated body mass index is 36.03 kg/m as calculated from the following: Height as of 08/28/20: 1.575 m (5' 2"). Weight as of this encounter: 89.4 kg (197 lb). BP Readings from Last 3 Encounters: 09/15/20 124/60 08/28/20 122/64 08/06/20 148/80 Wt Readings from Last 3 Encounters: 09/15/20 89.4 kg (197 lb) 08/28/20 88 kg (194 lb) 06/16/20 88.5 kg (195 lb 3.2 oz) ROS: Negative except for above PHYSICAL EXAM: General: alert, healthy and no distress Head: Normocephalic, No masses, lesions, tenderness or abnormalities Lymph: no palpable lymphadenopathy Breasts: R breast with nipple retraction and slight discharge within the retracted area. No deeper mass palpated ASSESSMENT/Plan Hypercalcemia (Primary) - BASIC METABOLIC PANEL; Future; Expected date: 09/15/2020 - CALCIUM, IONIZED; Future; Expected date: 09/15/2020 Retracted nipple Asymptomatic bilateral carotid artery stenosis I spent over 25 minutes of time face to face with more than half of it being in counseling and coordination of care We discussed options going forward and what the different areas of lymphadenopathy would mean. Pt agreeable to surgery referral as it does create some anxiety for her. The above was discussed and understanding was expressed. Bj Mario DO documented in this encounter Nursing Notes * Katia Villa LPN - 09/15/2020 7:38 AM EDT Check up documented in this encounter Plan of Treatment Upcoming Encounters Date Type Specialty Care Team Description 09/15/2020 Laboratory [facility] [place], Lab Scenery [address] [place] [address] [phone] Hypercalcemia 09/29/2020 Office Visit General Surgery Vanessa Brambila MD [address] [place] [address] [phone] 10/06/2020 Office Visit Family Medicine Bj Mario DO [address] [place] [address] [phone] 01/04/2021 Office Visit Cardiology Yvon Harris PA-C [address] [place] [address] [phone] Pending Results Name Type Priority Associated Diagnoses Date /Time BASIC METABOLIC PANEL Lab Routine Hypercalcemia 09/15/2020 8:32 AM EDT CALCIUM, IONIZED Lab Routine Hypercalcemia 09/15/2020 8:32 AM EDT Scheduled Orders Name Type Priority Associated Diagnoses Orde r Schedule BASIC METABOLIC PANEL Lab Routine Hypercalcemia Expected: 09/15/2020 (Approximate), Expires: 09/15/2021 CALCIUM, IONIZED Lab Routine Hypercalcemia Expected: 09/15/2020 (Approximate), Expires: 09/15/2021 Health Maintenance Due Date Last Done Comments Dexa Scan 10/30/2020 10/30/2013, 10/20, 08/24/2009, Additional history exists CKD PHOS USE SMARTSET 15516 11/17/202010/21, 07/15/2019, 08/13/2018, Additional history exists CKD GFR USE SMARTSET 41614 12/30/202007/02, 04/06/2020, 11/18/2019, Additional history exists CKD HGB USE SMARTSET 89762 04/06/202104/06, 04/04/2019, 08/13/2018, Additional history exists DIABETES [...] this encounter Visit Diagnoses Diagnosis Hypercalcemia- Primary Retracted nipple Other sign and symptom in breast Asymptomatic bilateral carotid artery stenosis Occlusion 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
--- OUTSIDE RECORDS SUMMARY | 2023-01-22 22:55 | External Medical Summary | Summary of Care ---
Author Name Unknown Organization [place] [address] Care Team Providers Care Hospital Cleaning Specialist Name Role Phone Bj Mario DO Primary Care Provider [phone] Reason for Visit * Reason Comments Re-Check Encounter Details Date Type Department Care Team Description 10/06/2020 Office Visit Family Practice [facility] [place] [address] [facility] [place] [address] Bj Mario DO [address] [facility] [place] [address] [phone] 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 neurogenic claudication*; Cervicalgia; HTN, goal below 140/90; Dyslipidemia, goal LDL below 70; Asymptomatic bilateral carotid artery stenosis Allergies No Known Active Allergiesdocumented as of this encounter (statuses as of 10/06/2020) Medications Medication Sig Dispensed Refills Start Date [...] mouth daily. 30 Tab 11 10/06/2020 Active documented as of this encounter (statuses as of 10/06/2020) Active Problems Problem Noted Date 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 09/29/2020 Overview: Per CKD protocol History of deep vein thrombosis (DVT) of lower extremity 09/08/2016 Status post insertion of drug eluting co ronary artery stent 04/07/2015 Overview: 2009, DUS placed in the mid RCA at [facility] Asymptomatic bilateral carotid artery st enosis 06/10/2014 Raynaud phenomenon 06/13/2011 Knee joint replacement status 01/13/2011 Overview: 2014, right Dr Ricardo [facility] 2011: left Dr Priya Ricardo [facility] Dyslipidemia, goal LDL below 70 09/21/19 11 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 neurogenic claudication 02/17/2010 Vitamin D deficiency 10/13/2009 Chronic ischemic heart disease 0 S/P angioplasty with stent 06/30/2009 Overview: 07/01/2009 DUS in the RCA at [facility] Non-toxic multinodular goiter 04/21/2009 Overview: [...] as of this encounter (statuses as of 10/06/2020) Resolved Problems Problem Noted Date Resolved Date [...] as of this encounter (statuses as of 10/06/2020) Immunizations Name Administration Dates Next Due COVID-19 [...] Sign Reading Time Taken Comments Blood Pressure 134/62 10/06/2020 9:39 AM EDT Pulse 58 10/06/2020 9:39 AM EDT Temperature 36.3 C (97.3 F) 10/06/2020 9:39 AM ED T Respiratory Rate 16 10/06/2020 9:39 AM EDT Oxygen Saturation 97% 10/06/2020 9:39 AM EDT Inhaled Oxygen Concentration - - Weight 90.6 kg (199 lb 12.8 oz) 10/06/2020 9:39 AM EDT Height - - Body Mass Index 36.54 09/29/2020 9:01 AM EDT documented in this encounter Progress Notes * Bj Mario, DO - 10/06/2020 9:47 AM EDT Subjective: Eugenia Hu is a 85 year old female. Chief Complaint Patient presents with Re-Check HPI: Calcium got better when she cut back on Tums. Saw surgery and no concerns to do surgery. Plan for a mammogram in one year She got a shot in her back from Dr. Berg. It worked for a few weeks. Pain is off and on. More active and more pain. NExt day it hurts. We discussed taking a Flexeril before bed after a bad day. Will send for Tramadol, she uses it very rarely. We discussed risks and benefits. She made 30 pillslast a month last year. Some swelling in her feet. Worse over the last month or two. Last ECHO and blood work reviewed. She feels there is a change in her body. The more she watches what she eats the fatter she gets. She does not feel constipated. She cut back on candy and eating after 7 o clock. PMHx, meds, and allergies reviewed Patient Active [...] once a day with food 100 5 nitroglycerin (NITROSTAT) 0.4 MG SUBL 1 every 5 min as needed with chest pain up to 3 doses in 15 minutes 25 Tab 11 Review of patient's allergies indicates: No Known Allergies OBJECTIVE: BP 140/74 | Pulse 58 | Temp 36.3 C (97.3 F) (Tympanic) | Resp 16 | Wt 90.6 kg (199 lb 12.8 oz) | SpO2 97% | BMI 36.54 kg/m | BSA 1.99 m Estimated body mass index is 36.54 kg/m as calculated from the following: Height as of 09/29/20: 1.575 m (5' 2"). Weight as of this encounter: 90.6 kg (199 lb 12.8 oz). BP Readings from Last 3 Encounters: 10/06/20 140/74 09/15/20 124/60 08/28/20 122/64 Wt Readings from Last 3 Encounters: 10/06/20 90.6 kg (199 lb 12.8 oz) 09/29/20 89.4 kg (197 lb) 09/15/20 89.4 kg (197 lb) ROS: Negative except [...] Extremities: less than 2 second capillary refill, and B/L 1+ edema ASSESSMENT/Plan 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 neurogenic claudication (Primary) - traMADol HCl 50 MG Oral Tablet (Ultram); Take 1 Tab by mouth daily as needed for Pain, Severe. Cervicalgia - traMADol HCl 50 MG Oral Tablet (Ultram); Take 1 Tab by mouth daily as needed for Pain, Severe. HTN, goal below 140/90 - Furosemide 20 MG Oral Tablet (Lasix); Take 1 Tab by mouth daily. - BASIC METABOLIC PANEL; Future; Expected date: 10/20/2020 Dyslipidemia, goal LDL below 70 Asymptomatic bilateral carotid artery stenosis Add lasix and check blood work int wo weeks to see if kidney function is tolerating lasix. The above was discussed and understanding was expressed. Bj Mario DO documented in this encounter Nursing Notes * Jannette Whittaker LPN - 10/06/2020 9:38 AM EDT Pt in today for a 6 month return documented in this encounter Plan of Treatment Upcoming Encounters Date Type Specialty Care Team Description 10/20/2020 Laboratory [facility] [place], Lab Scenery [address] [place] [address] [phone] 01/04/2021 Office Visit Cardiology Yvon Harris PA-C [address] [facility] [place] [address] [phone] 04/19/2021 Office Visit Family Medicine Bj Mario DO [address] [place] [address] [phone] 09/09/2021 Imaging Radiology Scheduled Orders Name Type Priority Associated Diagnoses Orde r Schedule BASIC METABOLIC PANEL Lab Routine HTN, goal below 140/90 Expected: 10/20/2020 (Approximate), Expires: 10/06/2021 Health Maintenance Due Date Last Done Comments [...] stenosis, lumbar region, without neurogenic claudication Cervicalgia HTN, goal below 140/90 Unspecified essential hypertension Dyslipidemia, goal LDL below 70 Other and unspecified hyperlipidemia Asymptomatic bilateral carotid artery stenosis Occlusion and stenosis of multiple and bilateral precerebral arteries without mention of cerebral infarction documented in this encounter Advance Directives Documents on File Type Date Recorded Patient Geophysical Prospector Expl anation Advance Directives and Living Will 08/13/2009 12:00 AM LIVING WILL Power of Inspector Line 08/13/2009 12:00 AM DOMONIQUE R OF COMMERCIAL FRONT LOAD DRIVER DURABLE HEALTH POA AND HEALTH CARE TREATMENT INSTR Power of Inspector Line 08/13/2009 12:00 AM DOMONIQUE R OF COMMERCIAL FRONT LOAD DRIVER DURABLE HEALTH CARE POA Advanced Directive service [...]
--- OUTSIDE RECORDS SUMMARY | 2023-01-22 22:55 | External Medical Summary | Summary of Care ---
Author Name Unknown Organization [place] [address] Care Team Providers Care Hazardous Waste Remover Name Role Phone Bj Mario Primary Care Provider [phone] [phone] Encounter Details Date Type Department Care Team Description 09/15/2020 Documentation Laboratory Scenery [place]ine [place] [address] [place] [address] [place], [facility] Scenery [address] [place] [address] [phone] Hypercalcemia Allergies No Known Active Allergiesdocumented as of this encounter (statuses as of 09/25/2020) Medications Medication Sig Dispensed Refills Start Date [...] as of this encounter (statuses as of 09/25/2020) Active Problems Problem Noted Date Benign hypertension with CKD (chronic ki dney disease) stage III 09/06/2017 History of deep vein thrombosis (DVT) of lower extremity 09/08/2016 Status post insertion of drug eluting co ronary artery stent 04/07/2015 Overview: 2009, DUS placed in the mid RCA at [facility] Asymptomatic bilateral carotid artery st enosis 06/10/2014 Raynaud phenomenon 06/13/2011 Knee joint replacement status 01/13/2011 Overview: 2014, right Dr Ricardo [facility] 2011: left Dr Priya Ricardo [facility] Dyslipidemia, goal LDL below 70 09/21/19 11 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 neurogenic claudication 02/17/2010 Vitamin D deficiency 10/13/2009 Chronic ischemic heart disease 0 S/P angioplasty with stent 06/30/2009 Overview: 07/01/2009 DUS in the RCA at [facility] Non-toxic multinodular goiter 04/21/2009 Overview: [...] as of this encounter (statuses as of 09/25/2020) Resolved Problems Problem Noted Date Resolved Date [...] as of this encounter (statuses as of 09/25/2020) Immunizations Name Administration Dates Next Due COVID-19 [...] encounter Nursing Notes * Data, Entry - 09/16/2020 5:32 AM EDT Automated conversion to a Documentation Encounter documented in this encounter Miscellaneous Notes * Result QuickNote - Bj Mario DO - 09/24/2020 3:45 PM EDT Letter: Your calcium improved on your repeat blood work. It was nice to see you in the office. documented in this encounter Plan of Treatment Upcoming Encounters Date Type Specialty Care Team Description 09/29/2020 Office Visit General Surgery Vanessa Brambila MD [address] [place] [address] [phone] 10/06/2020 Office Visit Family Medicine Bj Mario DO [address] [facility] [address] [phone] 01/04/2021 Office Visit Cardiology Yvon Harris PA-C [address] [place] [address] [phone] Health Maintenance Due Date Last Done Comments Dexa Scan 10/30/2020 10/30/2013, 10/20, 08/24/2009, Additional history exists CKD PHOS USE SMARTSET 99931 11/17/202010/21, 07/15/2019, 08/13/2018, Additional history exists CKD GFR USE SMARTSET 49693 03/17/202109/15, 07/02/2020, 04/06/2020, Additional history exists CKD HGB USE SMARTSET 34287 04/06/202104/06, 04/04/2019, 08/13/2018, Additional history exists DIABETES [...] Associated Diagnosis Comments BASIC METABOLIC PANEL Routine 09/15/2020 8:32 AM EDT Hypercalcemia CALCIUM, IONIZED Routine 09/15/2020 8:32 AM EDT Hypercalcemia documented in this encounter Results * CALCIUM, IONIZED (09/15/2020 8:32 AM EDT) Calcium, Ionized 1.37(H)Comment:This test was developed and its performance characteristics dtermined by [employer]. It has not been cleared or approved by the US Food and Drug Administration 1.13 - 1.32 mmol/L LABORATORY [facility] Specimen Blood - Venous blood specime n (specimen) LABORATORY [facility] [address] [place] [address] * BASIC METABOLIC PANEL (09/15/2020 8:32 AM EDT) BUN 21(H) 6 - 20 mg/dL LAB[facility]ATORY [facility] 56-02 Creatinine 1.4(H) 0.5 - 1.0 mg/dL [facility]ORY [facility] 56-02 Estimated Glomerular Filtration Rate 35.8(L)Comment:If patient is , multiply estimated GFR by 1.159. >=60.0 mL/min [facility] 56-02 Sodium 141 135 - 146 mmol/L [facility] 56-02 Potassium 4.6 3.5 - 5.1 mmol/L [facility] 56-02 Chloride 106 98 - 107 mmol/L [facility]-02 CO2 27 22 - 32 mmol/L [facility] 56-02 Anion Gap 8 7 - 15 mmol/L LAB[facility]ATORY [facility] 56-02 Glucose 100 70 - 120 mg/dL [facility] 56-02 Calcium 10.2 8.4 - 10.2 mg/dL LABORATORY [place] 56- Specimen Blood - Venous blood specime n (specimen) [facility] 56- [address] [place] [address] documented in this encounter Visit Diagnoses Diagnosis Hypercalcemia documented in this encounter Advance Directives Documents on File Type Date Recorded Patient Logistical Engineer Expl anation Advance Directives and Living Will 08/13/2009 12:00 AM LIVING WILL Power of City Maintenance Manager 08/13/2009 12:00 AM DOMONIQUE R OF TRAFFIC OPERATIONS MANAGER DURABLE HEALTH POA AND HEALTH CARE TREATMENT INSTR Power of City Maintenance Manager 08/13/2009 12:00 AM DOMONIQUE R OF TRAFFIC OPERATIONS MANAGER DURABLE HEALTH CARE POA Advanced Directive service [...]
--- OUTSIDE RECORDS SUMMARY | 2023-01-22 22:55 | External Medical Summary | Summary of Care ---
Author Name Unknown Organization [place] [address] Care Team Providers Care Snowblower Mechanic Name Role Phone Bj Mario DO Primary Care Provider [phone] Reason for Visit * Reason Comments Re-Check Encounter Details Date Type Department Care Team Description 09/15/2020 Office Visit Family Practice [facility] [place]ine [place] [address] [facility] [place] [address] Bj Mario DO [address] [facility] [place] [address] [phone] Hypercalcemia*; Retracted nipple; Asymptomatic bilateral carotid artery [...] Surgery Vanessa Brambila MD [address] [place] [address] [phone] 10/06/2020 Office Visit Family Medicine Bj Mario DO [address] [facility] [place] [address] [phone] 01/04/2021 Office Visit Cardiology Yvon Harris PA-C [address] [place] [address] [phone] Pending Results Name Type Priority Associated Diagnoses [...] Additional history exists CKD PHOS USE SMARTSET 79845 11/17/202010/21, 07/15/2019, 08/13/2018, Additional history exists CKD GFR USE SMARTSET 68408 12/30/202007/02, 04/06/2020, 11/18/2019, Additional history exists CKD HGB USE SMARTSET 43674 04/06/202104/06, 04/04/2019, 08/13/2018, Additional history exists DIABETES [...] Documents on File Type Date Recorded Patient Corrections Unit Supervisor Expl anation Advance Directives and Living Will 08/13/2009 12:00 AM LIVING WILL Power of Nickel Operator 08/13/2009 12:00 AM DOMONIQUE R OF LEATHER STRETCHER DURABLE HEALTH POA AND HEALTH CARE TREATMENT INSTR Power of Nickel Operator 08/13/2009 12:00 AM DOMONIQUE R OF LEATHER STRETCHER DURABLE HEALTH CARE POA Advanced Directive service [...]
--- OUTSIDE RECORDS SUMMARY | 2023-01-22 22:55 | External Medical Summary ---
Author Name Unknown Address Unknown Organization K01:[facility]AT[facility] [place] [address] [place] [address] Laboratory Report Ordering Provider Test Date Status ANIVAL HANKINS 09/15/2020 08:32:15 Final Observation Date Value Abnormality Reference (Units ) Status Calcium.ionized [Moles/volume] in Serum or Plasma by Ion-selective membrane electrode (ISE) 09/15/2020 08:32:15 1.37 Above high normal 1.13-1.32 (mmol/L) Final Performing Location LABORATORY [facility] - [address] [place] [address]
--- OUTSIDE RECORDS SUMMARY | 2023-01-22 22:55 | External Medical Summary | Summary of Care ---
Author Name Unknown Organization [place] [address] Care Team Providers Care Helper Electrical Name Role Phone Bj Mario DO Primary Care Provider [phone] Reason for Visit * Reason Comments Adult Annual Wellness Visit, Subsequent Visit Encounter Details Date Type Department Care Team Description 08/28/2020 Nurse Only Ancillary Scenery [place] [address] [place] [address] [place], Nurse Annual Wellness Scenery [address] [place] [address] [phone] Adult Annual Wellness Visit, Subsequent Visit Allergies [...] DUS placed in the mid RCA at [facility] Asymptomatic bilateral carotid artery st enosis 06/10/2014 Raynaud phenomenon 06/13/2011 Knee joint replacement status 01/13/2011 Overview: 2014, right Dr Ricardo [facility] 2011: left Dr Priya Ricardo [facility] Dyslipidemia, goal LDL below 70 09/21/19 11 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 neurogenic claudication 02/17/2010 Vitamin D deficiency 10/13/2009 Chronic ischemic heart disease 0 S/P angioplasty with stent 06/30/2009 Overview: 07/01/2009 DUS in the RCA at [facility] Non-toxic multinodular goiter 04/21/2009 Overview: seen on [...] >19 ng/mL Sincerely, Bj Mario, DO 08/28/2020 [facility] Calendar (as of Last Office/Telemedicine Visit: [...] your insurance company to determine what's covered. [employer] is a great tool that helps you review your medical record online, including test results, doctor notes and your health summary. You can also schedule appointments with me and other members of your care team, request prescription refills and ask for advice related to your medical conditions at [email or web address]. documented in this encounter Progress Notes * [...] replacement status 01/13/[address] Priya Ricardo [facility] Knee joint replacement status 12/15/2013 right [facility] Macular degeneration Ugo Simon MD Menopause 1974 Need for prophylactic hormone replacement therapy (postmenopausal) 1974 Non-toxic multinodular goiter 04/2009 seen on US, repeat -10/2009 Other screening mammogram 10/24/03 Birad Code 2 Other specified glaucoma both eyes, Paul Simon MD, drops used, timolol S/P angioplasty with stent 06/30/09 [facility] Status post insertion of drug eluting coronary artery stent 04/07/20152009, DUS placed in the mid RCA at [facility] Vitamin D deficiency 10/13/2009 Past Surgical History: Procedure Laterality Date ARTHROPLASTY KNEE TOTAL Left 01/13/2011 Left, Dr Priya Ricardo [facility] ARTHROPLASTY KNEE TOTAL Right 12/16/13 Right, Dr Priya Ricardo [facility] CARDIAC CATH SCANNED RESULT 06/30/2009 DUS placed in right coronary, [facility] CARPAL TUNNEL SURGERY Bilateral 2014 bilateral COLONOSCOPY 03/22/2006 normal repeat in 2015 COLONOSCOPY, DIAGNOSTIC (RECTUM) 09/01/2016 diverticulosis/COLONOSCOPY FLEXIBLE PROXIMAL DIAGNOSTIC performed by Kaylie Ford MD at ENDOSCOPY [facility] COLONOSCOPY, DIAGNOSTIC (RECTUM) 10/09/2018 diverticulosis/[facility] COLONOSCOPY, GI REFERRAL OP 03/22/2005 diverticulosis, repeat in 10 years for surveillance reasons COLORECTAL CANCER SCREEN;W/FLE 1999 normal, Dr Estrella DENTAL SURGERY PROCEDURE NEC 1970 Dental Surgery Procedure tumor benign palate DEXA SCAN/BONE MINERAL AXIAL 07/2002 normal, repeat 2007 DEXA SCAN/BONE MINERAL AXIAL 07/20/2006 normal repeat in 6-8 years EGD, FLEXIBLE, DIAGNOSTIC 01/30/2019 acid reflux, Schatzki ring, hiatal hernia / [facility] EXERCISE ECHO 09/02/2002 normal, Dr Genao INJECT DX/THER SUBSTANCE INTERLAMINAR LUMBAR/SACRAL W IMAGE GUIDE 01/18/2018 INJECTION SPINE LUMBAR OR SACRAL performed by Paul Azam Cousins, DO at OR [facility] INJECT DX/THER SUBSTANCE INTERLAMINAR LUMBAR/SACRAL W IMAGE GUIDE 02/12/2018 INJECTION SPINE LUMBAR OR SACRAL performed by [employer] Cousins, DO at OR [facility] INJECT DX/THER SUBSTANCE INTERLAMINAR LUMBAR/SACRAL W IMAGE GUIDE 12/27/2018 INJECTION SPINE LUMBAR OR SACRAL performed by [employer] Cousins, DO at OR [facility] INJECT DX/THER SUBSTANCE INTERLAMINAR LUMBAR/SACRAL W IMAGE GUIDE 02/21/2019 INJECTION SPINE LUMBAR OR SACRAL performed by [employer] Cousins, DO at OR [facility] INJECT DX/THER [...] one ovary left in, Dr Chakraborty in [facility] REMOVE CATARACT, INSERT LENS PROSTH Right 01/05/[address] Messi Simon REMOVE CATARACT, INSERT LENS PROSTH Left 01/28/[address] Messi Simon STENT, COATED/COVERED, WITH DELIVERY SYSTEM 06/30/2009 [employer] Endeaver Drug Eluding Stent [facility] TOTAL HIP REPLACEMENT & PROSTHESIS 1992 left, Dr Ricardo TOTAL HIP REPLACEMENT & PROSTHESIS 10/2000 right , Dr Ricardo at [facility] Family History Problem Relation Age of [...] looking into getting new hearing aides at [facility]. PT had not trouble hearing during this [...] than 4 medications Older than age 70 Iju-Kp-emh-Go Test: Time began at 0900. Patient stood from sitting position and walked approximately 10 feet, returned and sat down. Total time for jsg-le-bva-go test was 10 seconds. Cvv-Ws-tha-Go Test completed? Yes Gender Specific Preventative Plan: Health Maintenance Topic Date Due *DEPRESSION SCREENING,ANNUAL FOR PTS 12 AND OVER Never done Dexa Scan 10/30/2020 CKD PHOS USE SMARTSET 80784 11/17/2020 CKD GFR USE SMARTSET 61351 12/30/2020 CKD HGB USE SMARTSET 32524 04/06/2021 DIABETES SCREEN EVERY 3 YRS-AGE 45 [...] current medications. Continue to follow up with co op . 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 [...] Medicine Bj Mario, DO [address] [place], [place] [address] [phone] 01/04/2021 Office Visit Cardiology Yvon Harris PA-C [address] [facility] [place] [address] [phone] Health Maintenance Due Date Last Done Comments *DEPRESSION SCREENING,ANNUAL FOR PTS 12 AND OVER 05/30/2020 Dexa Scan 10/30/2020 10/30/2013, 10/20, 08/24/2009, Additional history exists CKD PHOS USE SMARTSET 17896 11/17/202010/21, 07/15/2019, 08/13/2018, Additional history exists CKD GFR USE SMARTSET 97752 12/30/202007/02, 04/06/2020, 11/18/2019, Additional history exists CKD HGB USE SMARTSET 86723 04/06/202104/06, 04/04/2019, 08/13/2018, Additional history exists DIABETES [...] Documents on File Type Date Recorded Patient Rn Residential Expl anation Advance Directives and Living Will 08/13/2009 12:00 AM LIVING WILL Power of Butter Maker 08/13/2009 12:00 AM DOMONIQUE R OF SALES LEAD DURABLE HEALTH POA AND HEALTH CARE TREATMENT INSTR Power of Butter Maker 08/13/2009 12:00 AM DOMONIQUE R OF SALES LEAD DURABLE HEALTH CARE POA Advanced Directive service [...]
--- OUTSIDE RECORDS SUMMARY | 2023-01-22 22:56 | External Medical Summary | Summary of Care ---
Author Name Unknown Organization [place] [address] Care Team Providers Care Bolt Threader Name Role Phone Bj Mario DO Primary Care Provider [phone] Reason for Visit * Reason Onset Date Comments Test Results 06/17/2020 Encounter Details Date Type Department Care Team Description 06/17/2020 Telephone General Internal Medicine [facility] [place] [address] [place] [address] Bj Mario DO [address] [place] [address] [phone] Test Results Allergies No Known Active Allergiesdocumented as of this encounter (statuses as of 06/17/2020) Medications Medication Sig Dispensed Refills Start Date [...] Additional Information Patient not taking. Reported on 06/16/2020 acetaminophen (TYLENOL EXTRA STRENGTH) 500 MG Tablet [...] at bedtime 90 Tab 3 02/12/2020 Active Rosuvastatin Calcium 20 MG Oral Tablet (CRESTOR)Indications: Dyslipidemia, goal LDL below 70 take 1 tablet by mouth once daily 90 Tab 1 02/12/2020 Active Lisinopril 10 MG Oral Tablet (PRINIVIL)Indications :Benign [...] Additional Information Patient not taking. Reported on 06/16/2020 documented as of this encounter (statuses as of 06/17/2020) Active Problems Problem Noted Date Benign hypertension [...] Ricardo [facility] 2011: left Dr Priya Ricardo [facility] Dyslipidemia, goal LDL [...] as of this encounter (statuses as of 06/17/2020) Resolved Problems Problem Noted Date Resolved Date [...] as of this encounter (statuses as of 06/17/2020) Immunizations Name Administration Dates Next Due Pneumococcal Conjugate Vacc, 13 Valent (Prevnar) 09/22/2014 Pneumococcal Polysaccharide PPV23 (Pneumovax) 03/12/2002 Seasonal Influenza, Quadriva lent, No Preserve, 6 Mons & Above, IM 03/14/2018,03/23/2017 Seasonal Influenza, Quadriva lent, No Preserve, Adjuvanted, 65+ Yrs, IM 04/08/2020 Seasonal Influenza, Quadriva lent, No Preserve, IM [...] Miscellaneous Notes * Telephone Encounter - Mary Roman LPN - 06/17/2020 12:37 PM EST Called Patient. Advised of message below. Patient verbalized understanding and will comply. * Telephone Encounter - Mary Roman LPN - 06/17/2020 12:37 PM EST ----- Message from Leonel Burns PA-C sent at 06/17/2020 7:27 AM EST ----- Please inform patient that hip x-rays look alright. Use Tylenol for a few days. If symptoms persistent for a couple weeks, we will get her back in with pain management. documented in this encounter Plan of Treatment Upcoming Encounters Date Type Specialty Care Team Description 07/07/2020 Office Visit Cardiology Yvon Harris PA-C [address] [place] [address] [phone] 10/06/2020 Office Visit Family Medicine Bj Mario, DO [address] [place] [address] [phone] Health Maintenance Due Date Last Done Comments *DEPRESSION SCREENING,ANNUAL FOR PTS 12 AND OVER 05/30/2020 CKD GFR USE SMARTSET 15503 10/04/202004/06, 11/18/2019, 07/15/2019, Additional history exists Dexa Scan 10/30/2020 10/30/2013, 10/20, 08/24/2009, Additional history exists CKD PHOS USE SMARTSET 00411 11/17/202010/21, 07/15/2019, 08/13/2018, Additional history exists CKD HGB USE SMARTSET 82328 04/06/202104/06, 04/04/2019, 08/13/2018, Additional history exists DIABETES SCREEN EVERY 3 YRS-AGE 45 AND ABOVE 04/06/2023 04/06/2020, 11/18/2019, 03/20/2019, Additional history exists DTaP,Tdap,and Td Vaccines (2 - Td) 08/28/2028 08/28/2018, 04/21/2012, 04/28/2008 Pneumococcal Vaccine: 65+ Years Completed 09/22/2014, 03/12/2002 Zoster Vaccines Completed 02/26/2020, 10/21, 06/11/2008 Influenza Vaccine (FLU shot) Completed , 03/20/2019, 03/14/2018, Additional history exists MENINGOCOCCAL (MENACTRA/MENVEO) Aged Out No longer eligible based on patient's age to complete this topic documented as of this encounter Implants Not on filedocumented as of this encounter Advance Directives Documents on File Type Date Recorded Patient Provider Network Manager Expl anation Advance Directives and Living Will 08/13/2009 12:00 AM LIVING WILL Power of Insurance Account Executive 08/13/2009 12:00 AM DOMONIQUE R OF [place] WEIGHER DURABLE HEALTH POA AND HEALTH CARE TREATMENT INSTR Power of Insurance Account Executive 08/13/2009 12:00 AM DOMONIQUE R OF [place] WEIGHER DURABLE HEALTH CARE POA Advanced Directive service [...]
--- OUTSIDE RECORDS SUMMARY | 2023-01-22 22:56 | External Medical Summary | Summary of Care ---
Author Name Unknown Organization [place] [address] Care Team Providers Care Medium Cycle Salesperson Name Role Phone Bj Mario DO Primary Care Provider [phone] Reason for Referral * Evaluate & Treat - Unlimited Visits (Within 30 days (routine)) Status Reason Specialty Diagnoses / Procedures Referred By Contact Referred To Contact Pending Review Specialty Services Required Pain Management Diagnoses Low back pain without sciatica, unspecified back pain laterality, unspecified chronicity Yvon Harris PA-C [address] [facility] [place] [address] Electronically signed by Yvon Harris PA-C at Reason for Visit * Reason Comments Follow Up Encounter Details Date Type Department Care Team Description 07/07/2020 Telemedicine Cardiology, [facility] [address] [place] [address] Yvon Harris PA-C [address] [place] [address] [phone] Chronic ischemic heart disease*; Low back pain without sciatica, unspecified back pain laterality, unspecified chronicity; Asymptomatic bilateral carotid artery stenosis; S/P angioplasty with stent; Benign hypertension with CKD (chronic kidney disease) stage III; Dyslipidemia, goal LDL below 70 Allergies No Known Active Allergiesdocumented as of this encounter (statuses as of 07/10/2020) Medications Medication Sig Dispensed Refills Start Date [...] Active Rosuvastatin Calcium 20 MG Oral Tablet (CRESTOR)Indications:D yslipidemia, goal LDL below 70 take 1 [...] for Dizziness. 30 Tab 0 04/25/2020 Active documented as of this encounter (statuses as of 07/10/2020) Active Problems Problem Noted Date Benign hypertension [...] as of this encounter (statuses as of 07/10/2020) Resolved Problems Problem Noted Date Resolved Date [...] as of this encounter (statuses as of 07/10/2020) Immunizations Name Administration Dates Next Due COVID-19 mRNA, LNP-s, No Pre serve, 2-Dose Series (Moderna) 07/02/2020 Pneumococcal Conjugate Vacc, 13 Valent (Prevnar) 09/22/2014 [...] as of this encounter Progress Notes * Yvon Harris PA-C - 07/07/2020 10:11 AM EST Date: 07/07/2020 TELEPHONE FOLLOWUP VISIT - CARDIOLOGY Name: Eugenia Hu After connecting to the patient via telephone, the patient was identified by name and date of . Patient was then informed that this was a telephone call only visit. The patient agreed to participate. This is an established patient evaluated in my specialty within the past three years: Yes Last seen on 04/06/2020 Visit Disposition: Routine follow-up. History of Present Illness: Eugenia Hu is an 85-year-old female who is being evaluated today via telemedicine due to the inclement weather. Her daughter is also available on a telephone. The patient notes that her main issue is recurrent trouble with low back pain. She believes that the pain is coming from her hip however she notes that her chiropractor believes it is coming from her back. She notes receiving an injection by Dr. Berg a year ago with improvement and would like referral to see him again. Recent laboratory work revealed mild hypercalcemia for which she has significantly reduced her Tums intake without resolution. Her heartburn has not significantly worsened and she does not feel the need to intensify her GERD therapy at this time. She notes being off of amlodipinefor the last couple weeks stating I just did not feel right, just weird." She does not check herblood pressure at home however daughter notes that the neighbor has a cuff that they could borrow and report readings. She notes receiving her 1st COVID-19 vaccination at [employer] on [facility] on 07/02/2020. Her daughter notes that she also received the seasonal influenza vaccination sometime in May 2020 at [facility]. No chest pain. Stable exertional dyspnea. No palpitations. No orthopnea or PND to accompany the minimal intermittent peripheral edema. No dizziness or lightheadedness. No near syncope or syncope. No melena or hematochezia. History includes [...] systolic function, EF 55%. Patient hospitalized at [facility] in June 2012 at which time [...] TTE was interpreted by Dr. Kidd at [facility] on September 02, 2016 as demonstrating [...] (chronic kidney disease) stage III I12.9, N18.30 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 2000, left 1992 HTN, goal below 140/90 Knee joint replacement status 01/13/[address] Priya Ricardo [facility] Knee joint replacement status 12/15/2013 right [facility] Macular degeneration Ugo Simon MD Menopause 1974 Need for prophylactic hormone replacement therapy (postmenopausal) 1974 Non-toxic multinodular goiter 04/2009 seen on US, repeat -10/2009 Other screening mammogram 10/24/03 Birad Code 2 Other specified glaucoma both eyes, Paul Simon MD, drops used, timolol S/P angioplasty with stent 06/30/09 [facility] Status post insertion of drug eluting coronary artery stent 04/07/20152009, DUS placed in the mid RCA at [facility] Vitamin D deficiency 10/13/2009 Past Surgical History: Procedure Laterality Date ARTHROPLASTY KNEE TOTAL Left 01/13/2011 Left, Dr Priya Ricardo [facility] ARTHROPLASTY KNEE TOTAL Right 12/16/13 Right, Dr Priya Ricardo [facility] CARDIAC CATH SCANNED RESULT 06/30/2009 DUS placed in right coronary, [facility] CARPAL TUNNEL SURGERY Bilateral 2015 bilateral COLONOSCOPY 03/22/2006 normal repeat in 2015 COLONOSCOPY, DIAGNOSTIC (RECTUM) 09/01/2016 diverticulosis/COLONOSCOPY FLEXIBLE PROXIMAL DIAGNOSTIC performed by Kaylie Ford MD at ENDOSCOPY [facility] COLONOSCOPY, DIAGNOSTIC (RECTUM) 10/09/2018 diverticulosis/[facility] COLONOSCOPY, GI REFERRAL OP 03/22/2005 diverticulosis, repeat in 10 years for surveillance reasons COLORECTAL CANCER SCREEN;W/FLE 1999 normal, Dr Estrella DENTAL SURGERY PROCEDURE NEC 1970 Dental Surgery Procedure tumor benign palate DEXA SCAN/BONE MINERAL AXIAL 07/2002 normal, repeat 2007 DEXA SCAN/BONE MINERAL AXIAL 07/20/2006 normal repeat in 6-8 years EGD, FLEXIBLE, DIAGNOSTIC 01/30/2019 acid reflux, Schatzki ring, hiatal hernia / [facility] EXERCISE ECHO 09/02/2002 normal, Dr Genao INJECT DX/THER SUBSTANCE INTERLAMINAR LUMBAR/SACRAL W IMAGE GUIDE 01/18/2018 INJECTION SPINE LUMBAR OR SACRAL performed by [facility] Cousins, DO at OR [facility] INJECT DX/THER SUBSTANCE INTERLAMINAR LUMBAR/SACRAL W IMAGE GUIDE 02/12/2018 INJECTION SPINE LUMBAR OR SACRAL performed by Paul B Cousins, DO at OR [facility] INJECT DX/THER SUBSTANCE INTERLAMINAR LUMBAR/SACRAL W IMAGE GUIDE 12/27/2018 INJECTION SPINE LUMBAR OR SACRAL performed by [facility] Cousins, DO at OR [facility] INJECT DX/THER SUBSTANCE INTERLAMINAR LUMBAR/SACRAL W IMAGE GUIDE 02/21/2019 INJECTION SPINE LUMBAR OR SACRAL performed by [facility] Cousins, DO at OR [facility] MAMMOGRAM - BILATERAL 2.1.02 negative finding. 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 Complete Review of Systems: See above. Otherwise negative or noncontributory. Review of patient's allergies indicates: No Known Allergies Outpatient Medications Marked as Taking for the 07/07/20 encounter (Telemedicine) with Yvon Harris PA-C Medication Sig Famotidine 20 MG Oral Tablet (Pepcid) Take 1 Tab by mouth 2 times a day. Metoprolol Succinate ER 25 MG Oral Tablet Extended Release 24 Hour (toPROL XL) Take 0.5 Tabs bymouth daily. amLODIPine Besylate 2.5 MG Oral Tablet (NORVASC) Take 1 Tab by mouth daily. Lisinopril 10 MG Oral Tablet (PRINIVIL) take 1 tablet by mouth once daily rOPINIRole HCl 0.25 MG Oral Tablet (REQUIP) take 1 tablet by mouth at bedtime Rosuvastatin Calcium 20 MG Oral Tablet (CRESTOR) take 1 tablet by mouth once daily travoprost, MAYA Free, (TRAVATAN Z) 0.004 % ophthalmic solution instill 1 drop into both eyes every evening Diclofenac Sodium (VOLTAREN) 1 % gel Place 4 g topically on the skin 4 times a day. To affectedarea as directed. acetaminophen (TYLENOL EXTRA STRENGTH) 500 MG Tablet Take 500 mg by mouth every 6 hours as needed for Pain. VITAMIN D 1000 UNIT PO CAPS 1 capsule daily ASPIRIN 81 MG PO CHEW One pill by mouth once a day with food OBJECTIVE/PHYSICAL EXAMINATION: There were no vitals taken for this visit. No physical examination - telephone only visit Additional Data: August 28, 2017 DSE Interpretation [...] stable, unchanged dating back to January 2015. ASSESSMENT: 1. ASCVD. 2. Hypertension. 3. Hyperlipidemia. Optimal LDL goal less than 70 mg/dL. 4. Stable bilateral internal carotid artery disease without infarction 5. Back pain, requesting referral to see Dr. Berg, Pain Management, possible injection. 6. ? Primary hyperparathyroidism. Will defer possible referral to Endocrinology to PCP. Options of management discussed. Plan as outlined below. RECOMMENDATIONS/PLAN: Patient to monitor blood pressure at home, retrying amlodipine 2.5 mg/day if systolic blood pressure is persistently greater than 140 mmHg. Referral for evaluation by Dr. Berg placed. Routine cardiology follow-up. ER with emergencies. Yvon Harris PA-C Department of Cardiology I spent a total of 37 minutes on the date of service in preparation, delivery, and documentation ofthe care provided to Eugenia Hu excluding any time spent in the performance of separately billed services. This chart was completed in part utilizing [employer] Speech Voice Recognition Software. Grammatical errors, random [...] documented in this encounter Nursing Notes * Alvaro León, RN - 07/07/2020 9:59 AM EST Phone call to pt today to prepare her for telephonic visit with Yvon Harris PAC for routine follow up appt. Pt denies chest pain, SOB, palpitations and lightheadedness since last appt. Has no home monitoring equipment. Med rec done. Alvaro León, RN documented in this encounter Plan of Treatment Upcoming Encounters Date Type Specialty Care Team Description 07/17/2020 Office Visit Pain Management Paul Berg, [address] [place] [address] [phone] 10/06/2020 Office Visit Family Medicine Bj Mario, DO [address] [place] [address] [phone] 01/04/2021 Office Visit Cardiology Yvon Harris PA-C [address] [place] [address] [phone] Scheduled Referrals Name Type Priority Associated Diagnoses Orde r Schedule PAIN MEDICINE REFERRAL OP Referral Within 30 days (routine) Low back pain without sciatica, unspecified back pain laterality, unspecified chronicity Ordered: 07/07/2020 Health Maintenance Due Date Last Done Comments *DEPRESSION SCREENING,ANNUAL FOR PTS 12 AND OVER 05/30/2020 COVID-19 Vaccine (2 of 2 - Moderna series) 07/30/2020 07/02/2020 Dexa Scan 10/30/2020 10/30/2013, 10/20, 08/24/2009, Additional history exists CKD PHOS USE SMARTSET 30335 11/17/202010/21, 07/15/2019, 08/13/2018, Additional history exists CKD GFR USE SMARTSET 70304 12/30/202007/02, 04/06/2020, 11/18/2019, Additional history exists CKD HGB USE SMARTSET 26474 04/06/202104/06, 04/04/2019, 08/13/2018, Additional history exists DIABETES SCREEN EVERY 3 YRS-AGE 45 AND ABOVE 07/02/2023 07/02/2020, 04/06/2020, 11/18/2019, Additional history exists DTaP,Tdap,and Td Vaccines (2 - Td) 08/28/2028 08/28/2018, 04/21/2012, 04/28/2008 Pneumococcal Vaccine: 65+ Years Completed 09/22/2014, 03/12/2002 Zoster Vaccines Completed 02/26/2020, 10/21, 06/11/2008 Influenza Vaccine (FLU shot) Completed , 04/08/2020, 03/20/2019, Additional history exists MENINGOCOCCAL (MENACTRA/MENVEO) Aged Out No longer eligible based on patient's age to complete this topic documented as of this encounter Implants Not on filedocumented as of this encounter Visit Diagnoses Diagnosis Chronic ischemic heart disease- Primary Chronic ischemic heart disease, unspecified Low back pain without sciatica, unspecified back pain laterality, unspecified chronicity Asymptomatic bilateral carotid artery stenosis Occlusion and stenosis of multiple and bilateral precerebral arteries without mention of cerebral infarction S/P angioplasty with stent Postsurgical percutaneous transluminal coronary angioplasty status Benign hypertension with CKD (chronic kidney disease) stage III Benign hypertensive kidney disease with chronic kidney disease stage I through stage IV, or unspecified Dyslipidemia, goal LDL below 70 Other and unspecified hyperlipidemia documented in this encounter Advance Directives Documents on File Type Date Recorded 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
--- OUTSIDE RECORDS SUMMARY | 2023-01-22 22:56 | External Medical Summary | Summary of Care ---
Author Name Unknown Organization [place] [address] Care Team Providers Care Licensed Sales Assistant Name Role Phone Bj Mario DO Primary Care Provider [phone] Reason for Visit * Reason Onset Date Comments Appointment 07/07/2020 inj approval? Encounter Details Date Type Department Care Team Description 07/07/2020 Telephone Interventional Pain Center, [facility] [address] [place] [address] Cousins Paul LeslieianDO [address] [place] [address] [phone] Appointment (inj approval? ) Allergies No Known Active Allergiesdocumented as of this encounter (statuses as of 07/07/2020) Medications Medication Sig Dispensed Refills Start Date [...] as of this encounter (statuses as of 07/07/2020) Active Problems Problem Noted Date Benign hypertension with CKD (chronic ki dney disease) stage III 09/06/2017 History of deep vein thrombosis (DVT) of lower extremity 09/08/2016 Status post insertion of drug eluting co ronary artery stent 04/07/2015 Overview: 2009, DUS placed in the mid RCA at [facility] Asymptomatic bilateral carotid artery st enosis 06/10/2014 Raynaud phenomenon 06/13/2011 Knee joint replacement status 01/13/2011 Overview: 2014, right Dr Ricardo [facility] 2011: left Dr Priya Ricardo [facility] Dyslipidemia, goal LDL below 70 09/21/19 11 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 neurogenic claudication 02/17/2010 Vitamin D deficiency 10/13/2009 Chronic ischemic heart disease 0 S/P angioplasty with stent 06/30/2009 Overview: 07/01/2009 DUS in the RCA at [facility] Non-toxic multinodular goiter 04/21/2009 Overview: seen on [...] as of this encounter (statuses as of 07/07/2020) Resolved Problems Problem Noted Date Resolved Date [...] as of this encounter (statuses as of 07/07/2020) Immunizations Name Administration Dates Next Due Pneumococcal [...] Telephone Encounter - Kathy José OSA - 07/07/2020 10:39 AM EST Pt is scheduled 07/17/[address] Berg. Pt needs a possible injection per cardio check out notes. Pt states approval for injection would beneeded. Please obtain if agreeable. Thank you. documented in this encounter Plan of Treatment Upcoming Encounters Date Type Specialty Care Team Description 07/17/2020 Office Visit Pain Management Paul Berg DO [address] [place] [address] [phone] 10/06/2020 Office Visit Family Medicine Bj Mario, DO [address] [place] [address] [phone] 01/04/2021 Office Visit Cardiology Yvon Harris PA-C [address] [facility] [place] [address] [phone] Health Maintenance Due Date Last Done Comments *DEPRESSION SCREENING,ANNUAL FOR PTS 12 AND OVER 05/30/2020 Dexa Scan 10/30/2020 10/30/2013, 10/20, 08/24/2009, Additional history exists CKD PHOS USE SMARTSET 64017 11/17/202010/21, 07/15/2019, 08/13/2018, Additional history exists CKD GFR USE SMARTSET 70654 12/30/202007/02, 04/06/2020, 11/18/2019, Additional history exists CKD HGB USE SMARTSET 68806 04/06/202104/06, 04/04/2019, 08/13/2018, Additional history exists DIABETES [...] Documents on File Type Date Recorded 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
--- OUTSIDE RECORDS SUMMARY | 2023-01-22 22:56 | External Medical Summary ---
Author Name Unknown Address Unknown Organization K01:LABORATORY [facility] - [address] [place] [address] Laboratory Report Ordering Provider Test Date Status NURYS RUCKERO 07/02/2020 10:38:04 Final Observation Date Value Abnormality Reference (Units ) Status Parathyrin.intact [Mass/volume] in Serum or Plasma 07/02/2020 10:38:04 62 15-65 (pg/mL) Final Performing Location LABORATORY [facility] - [address] [place] [place] [address]
--- OUTSIDE RECORDS SUMMARY | 2023-01-22 22:56 | External Medical Summary ---
Author Name Unknown Address Unknown Organization K0G:[facility] [address] - [address] [place] [address] Laboratory Report Ordering Provider Test Date Status SRINI RUCKER 07/02/2020 10:38:03 Final Observation Date Value Abnormality Reference (Units ) Status BUN 07/02/2020 10:38:03 20 6-20 (mg/dL) Final Creatinine 07/02/2020 10:38:03 1.4 Above high normal 0.5-1.0 (mg/dL) Final Glomerular filtration rate/1.73 sq M.predicted [Volume Rate/Area] in Serum, Plasma or Blood by Creatinine-based formula (CKD-EPI) 07/02/2020 10:38:03 35.8 Below low normal >=60.0 (mL/min) Final Performing Location LABORATORY [facility] - [address] [place] [address]
--- OUTSIDE RECORDS SUMMARY | 2023-01-22 22:56 | External Medical Summary | Summary of Care ---
Author Name Unknown Organization [place] [address] Care Team Providers Care Cow Trimmer Name Role Phone Bj Mario DO Primary Care Provider [phone] Reason for Visit * Reason Comments Acute Pt c/o Rt hip pain x 2 weeks. PT states that this is an artificial hip. Pt also states that she is having back pain by her tailbone. Encounter Details Date Type Department Care Team Description 06/16/2020 Office Visit General Internal Medicine [facility] [place] [address] [facility] [place] [address] Leonel Burns PA-C [address] [facility] [place] [address] [phone] Groin pain, right*; Benign hypertension with CKD (chronic kidney disease) stage III; HTN, goal below 140/90; Status post bilateral hip replacements; 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 neurogenic claudication; Risk and functional assessment Allergies No Known Active Allergiesdocumented as of this encounter (statuses as of 06/16/2020) Medications Medication Sig Dispensed Refills Start Date [...] as of this encounter (statuses as of 06/16/2020) Active Problems Problem Noted Date Benign hypertension [...] as of this encounter (statuses as of 06/16/2020) Resolved Problems Problem Noted Date Resolved Date [...] as of this encounter (statuses as of 06/16/2020) Immunizations Name Administration Dates Next Due Pneumococcal [...] Sign Reading Time Taken Comments Blood Pressure 130/64 06/16/2020 2:13 PM EST Pulse 62 06/16/2020 2:13 PM EST Temperature 35.9 C (96.6 F) 06/16/2020 2:13 PM ES T Respiratory Rate 12 06/16/2020 2:13 PM EST Oxygen Saturation - - Inhaled Oxygen Concentration - - Weight 88.5 kg (195 lb 3.2 oz) 06/16/2020 2:13 P M EST Height 157.5 cm (5' 2") 06/16/2020 2:13 PM EST Body Mass Index 35.7 06/16/2020 2:13 PM EST documented in this encounter Patient Instructions * Patient Instructions* Uzma ReyesANTIONETTE - 06/16/2020 2:09 PM EST Patient Instructions - Fall Prevention (This education [...] types of exercise can help improve balance. Raghu chi and yoga are good examples. Heres [...] 10 times. Repeat this throughout the day. [employer] Patient Education Copyright 2008 [employer] except where otherwise noted. Preventing Falls: Moving [...] that mean climbing, even on a stepstool. [employer] Patient Education Copyright 2008 - 2010 [employer] except where otherwise noted. Urinary Incontinence Plan [...] Wear support stockings (TEDs)if you have edema ANTIONETTE Kamara 06/16/2020 Kegel Exercises Kegel exercises dont require special [...] effective. [employer] Patient Education Copyright 2009 - 2010 [employer] except where otherwise noted. Here are [...] please feel free to contact our office. documented in this encounter Progress Notes * Uzma Reyes CCMA - 06/16/2020 2:09 PM EST Chief Complaint Patient presents with Acute Pt c/o Rt hip pain x 2 weeks. PT states that this is an artificial hip. Pt also states that she is having back pain by her tailbone. Urinary Incontinence Plan of Care Documentation: (This [...] Wear support stockings (TEDs)if you have edema ANTIONETTE Kamara 06/16/2020 * Leonel Burns PA-C - 06/16/2020 2:06 PM EST Subjective: Eugenia Hu is a 85 year old female. Chief Complaint Patient presents with Acute Pt c/o Rt hip pain x 2 weeks. PT states that this is an artificial hip. Pt also states that she is having back pain by her tailbone. HPI: 85 y/o female with glaucoma, macular degeneration, HTN, CAD, carotid artery stenosis, Lumbar spinal stenosis, CKD III, HLD presenting with complaint of hip pain where she describes a sharp pain at lateral hip that radiates to sacral area. Denies leg radiculopathy, bowel or bladder changes, extremity numbness/weakness, fever, chills, sweats. Took a Tylenol last night that helped and a dose ofFlexeril that also helped this morning. PMH: Patient Active Problem List Diagnosis Code [...] Current Outpatient Medications Medication Sig Dispense Refill Famotidine 20 MG Oral Tablet (Pepcid) Take [...] by mouth at bedtime 90 Tab 3 Rosuvastatin Calcium 20 MG Oral Tablet (CRESTOR) take 1 tablet by mouth once daily 90 Tab 1 travoprost, MAYA Free, (TRAVATAN Z) 0.004 % [...] for Dizziness. (Patient not taking: Reported on 06/16/2020) 30 Tab 0 nitroglycerin (NITROSTAT) 0.4 MG SUBL 1 every 5 min as needed with chest pain up to 3 doses in 15 minutes (Patient not taking: Reported on 06/16/2020) 25 Tab 11 Review of patient's allergies indicates: No Known Allergies No other ROS reviewed other than mentioned in HPI. Objective: BP 130/64 | Pulse 62 | Temp 35.9 C (96.6 F) (Tympanic) | Resp 12 | Ht (!) 1.575 m (5' 2") | Wt 88.5 kg (195 lb 3.2 oz) | BMI 35.70 kg/m | BSA 1.97 m Results for orders placed or performed in visit on 04/06/20 LIPID PANEL WITH DIRECT LDL IF TRIGLYCERIDE IS ELEVATED Result Value Ref Range HOURS FASTING >8 HOURS hours TRIGLYCERIDES 159 0 - 174 mg/dL CHOLESTEROL 142 <200 mg/dL HDL 54 >49 mg/dL NON-HDL CHOLESTEROL 88 0 - 159 mg/dL LDL DIRECT(REFLEX) 67 0 - 129 mg/dL MAGNESIUM Result Value Ref Range MAGNESIUM 2.0 1.5 - 2.6 mg/dL TSH WITH FREE T4 IF INDICATED Result Value Ref Range TSH 2.53 0.27 - 4.2 uIU/mL FREE T4 REFLEXIVE NOT APPLICABLE 0.9 - 1.7 ng/dL COMPR METAB PANEL Result Value Ref Range BUN 17 6 - 20 mg/dL CREATININE 1.3 (H) 0.5 - 1.0 mg/dL E GLOM FILT RATE 36.7 (L) >60 SODIUM 141 135 - 146 mmol/L POTASSIUM 4.6 3.5 - 5.1 mmol/L CHLORIDE 104 98 - 107 mmol/L CO2 26 22 - 32 mmol/L ANION GAP 11 7 - 15 mmol/L GLUCOSE 103 70 - 120 mg/dL ALBUMIN 4.2 3.8 - 5.0 g/dL AST 26 10 - 35 U/L ALKALINE PHOSPHATASE 97 0 - 153 U/L BILIRUBIN, TOTAL 0.4 0 - 1.2 mg/dL CALCIUM 10.9 (H) 8.4 - 10.2 mg/dL PROTEIN 7.2 6.0 - 8.3 g/dL ALT 14 10 - 35 U/L CBC Result Value Ref Range WBC 5.83 4.00 - 10.80 K/uL RBC 4.30 3.85 - 5.15 M/uL HGB 13.4 12.0 - 15.3 g/dL HCT 40.1 36.0 - 45.2 % MCV 93.3 81.5 - 97.5 fL MCH 31.2 27.0 - 34.0 pg MCHC 33.4 32.0 - 36.0 g/dL RDW 12.9 11.5 - 15.5 % PLATELET COUNT 279 140 - 400 K/uL MPV 9.8 6.6 - 11.1 fL Exam End Date Exam End Time 09/27/2017 10:40 AM 10/02/2017 9:26 AM - Socrates Stroud In Narrative & Impression EXAM MRI scan lumbar spine without contrast -09/27/2017 10:40 am HISTORY Low back pain radiating to her L leg, HGAs tried chiropractor and medications with little success COMPARISON MRI lumbar spine 09/29/2009. TECHNIQUE Multiplanar, multisequence MR images of the lumbar spine are acquired without IV contrast using standard protocol. FINDINGS There is whkviqaw-lk-uuzgth multilevel degenerative disc disease with loss of disc height and disc desiccation seen diffusely throughout the lumbar spine. Vertebral heights are preserved. There is a slight retrolisthesis of L1 over L2 and L2 over L3. Global disc bulges narrow the central canal at the multiple levels throughout the lumbar spine. Conus ends normally at L1 level. On the review of axial images, At L1-2 yurv-dg-dbythpik canal narrowing with jxei-xo-wermrbqt bilateral foraminal narrowing At L2-3 qxasysog-oe-idhtzk canal stenosis with moderate bilateral foraminal narrowing At L3-4 nbjgagpj-za-wvfkrq canal stenosis with moderate right and severe left foraminal narrowing. At L4-5 severe canal stenosis with moderate bilateral foraminal narrowing At L5-S1 uixn-fo-jvhdjrzz canal stenosis and at least moderate left foraminal narrowing and xgtu-uo-fkrvatwd right foraminal narrowing. When compared to the study of 2009, diffuse progression of degenerative disc disease with notable progression of canal stenosis. IMPRESSION IMPRESSION 1. Prtxlxrk-dv-frjwgv multilevel degenerative disc disease with multilevel canal and foraminal narrowing as described. 2. When compared to prior study 2009, there significant progression of degenerative disc disease with progression of canal stenosis at multiple levels. Results XR HIP UNILAT 2-3 VIEWS INCLUDING AP PELVIS [XRHIP2] (Spec. #[id number]) (Order [id number]) [employer] PACS Image PACS Images for Remote and MAC Users [employer] PACS Images for Remote Users and MAC Users 08/03/2017 3:08 PM - Interface, Rad In Narrative & Impression EXAM LEFT HIP, UNILATERAL 2-3 VIEWS INCLUDING AP PELVIS HISTORY pain TECHNIQUE A frontal view of the pelvis with coned-down frontal and frog-leg lateral views of the LEFT hip aresubmitted. COMPARISON None. FINDINGS Bilateral Press-Fit total hip arthroplasties are identified with acetabular screw fixation. The RIGHT total hip arthroplasty is in good position without evidence of periprosthetic lucency or osseous destructive changes. Suture anchors seen at the level of the RIGHT greater trochanter likely status post tendonrepair. The LEFT total hip arthroplasty is in good position without evidence of periprosthetic lucency or osseous destructive changes. Mild heterotopic ossification is noted around the hip joint. No acute fractureor dislocation is identified. The calcific foci the origins of the hamstring tendons from the ischial tuberosity is likely reflect calcium pyrophosphate deposition. Tfqb-sp-koqineeq disc degenerative changes are noted in the lower lumbar spine. IMPRESSION 1. No acute osseous abnormality to the pelvis. 2. Bilateral Press-Fit total hip arthroplasty. No radiographic evidence for implant complication. Physical Exam: Constitutional: No acute distress. Head: normocephalic, atraumatic Eyes: PERRL with intact EOM, no scleral icterus, injection, or nystagmus noted. Cardiovascular: RRR without rubs, murmurs, gallops. No peripheral edema. Pulmonary: Lungs clear to auscultation without rales, rhonchi, or wheezing. No intercostal retractions. Good air movement. Abdomen: Bowel sounds present x4, soft, nontender. No organomegaly, abdominal bruits, or masses. Musculoskeletal: 5/5 strength to bilateral lower extremity. No atrophy appreciated. Some pain elicited with resisted hip flexion in anterior groin area. Mild tenderness to right glute area on palpation. No tenderness to greater trochanter area. Neuro: Gait steady without ataxia. CN II-XII grossly intact. Sensation intact and equal bilaterally. ASSESSMENT: Groin pain, right (Primary) - XR HIP UNILAT 2-3 VIEWS INCLUDING AP PELVIS Patient with hx of bilateral hip replacement. Anterior groin pain elicited with exam today. No recent trauma. Will update imaging to ensure no issues with hardware. Does have issues with spinal stenosis with JACKIE in the past that helped. If imaging negative for hip pathology, would recommend evaluation by Dr. Berg again to see if it is time for another injection. Tylenol 500 mg q6 hours prn. NoNsaids secondary to renal disease, HTN, and cardiovascular disease. Benign hypertension with CKD (chronic kidney disease) stage III High calcium noted previously. Needs to have follow up lab done. 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 Leonel Burns PA-C documented in this encounter Plan of Treatment Upcoming Encounters Date Type Specialty Care Team Description 06/16/2020 Laboratory Laboratory [facility] [address] [place] [address] [phone] Chronic ischemic heart disease 07/07/2020 Office Visit Cardiology Yvon Harris PA-C [address] [place] [address] [place] [address] [phone] 10/06/2020 Office Visit Family Medicine Bj Mario DO [address] [place] [address] [phone] Pending Results Name Type Priority Associated Diagnoses Date /Time XR HIP UNILAT 2-3 VIEWS INCLUDING AP PELVIS Medical Imaging Routine Groin pain, right 06/16/2020 2:36 PM EST Health Maintenance Due Date Last Done Comments *DEPRESSION SCREENING,ANNUAL FOR PTS 12 AND OVER 05/30/2020 CKD GFR USE SMARTSET 90548 10/04/202004/06, 11/18/2019, 07/15/2019, Additional history exists Dexa Scan 10/30/2020 10/30/2013, 10/20, 08/24/2009, Additional history exists CKD PHOS USE SMARTSET 58918 11/17/202010/21, 07/15/2019, 08/13/2018, Additional history exists CKD HGB USE SMARTSET 29043 04/06/202104/06, 04/04/2019, 08/13/2018, Additional history exists DIABETES [...] as of this encounter Visit Diagnoses Diagnosis Groin pain, right- Primary Benign hypertension with CKD (chronic kidney disease) stage III Benign hypertensive kidney disease with chronic kidney disease stage I through stage IV, or unspecified HTN, goal below 140/90 Unspecified essential hypertension Status post bilateral hip replacements Hip joint replacement by other means 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 neurogenic claudication Spinal stenosis, lumbar region, without neurogenic claudication Risk and functional assessment Screening for unspecified condition Chronic ischemic heart disease Chronic ischemic heart disease, unspecified documented in this encounter Advance Directives Documents on File Type Date Recorded Patient Sales Ledger Clerk Expl anation Advance Directives and Living Will 08/13/2009 12:00 AM LIVING WILL Power of Attendance Secretary 08/13/2009 12:00 AM DOMONIQUE Madsen OF LASER/ELECTRO OPTICS TECHNICIAN DURABLE HEALTH POA AND HEALTH CARE TREATMENT INSTR Power of Attendance Secretary 08/13/2009 12:00 AM DOMONIQUE Madsen OF LASER/ELECTRO OPTICS TECHNICIAN DURABLE HEALTH CARE POA Advanced Directive [...]
--- OUTSIDE RECORDS SUMMARY | 2023-01-22 22:56 | External Medical Summary | Summary of Care ---
Author Name Unknown Organization [place] [address] Care Team Providers Care Event Host Name Role Phone Nhi Florian DO Primary Care Provider [phone] Reason for Visit * Reason Comments eRx-Medication Refill Encounter Details Date Type Department Care Team Description 08/11/2020 Refill Family Practice [facility] [place] [facility] [place] [address] Nhi Florian DO [address] [facility] [place] [address] [phone] Dyslipidemia, goal LDL below 70 Allergies No Known Active Allergiesdocumented as of this encounter (statuses as of 08/12/2020) Medications Medication Sig Dispensed Refills Start Date [...] 04/06/2020 Active Famotidine 20 MG Oral Tablet (Pepcid)Indication [...] once daily 90 Tab 2 08/12/2020 Active Rosuvastatin Calcium 20 MG Oral Tablet (CRESTOR)Indicatio ns:Dyslipidemia, goal LDL below 70 take 1 tablet by mouth once daily 90 Tab 1 02/12/2020 08/12/2020 Discontinued documented as of this encounter (statuses as of 08/12/2020) Active Problems Problem Noted Date Benign hypertension [...] as of this encounter (statuses as of 08/12/2020) Resolved Problems Problem Noted Date Resolved Date [...] as of this encounter (statuses as of 08/12/2020) Immunizations Name Administration Dates Next Due COVID-19 [...] encounter Miscellaneous Notes * Telephone Encounter - Shelley Parker [facility] - 08/12/2020 8:02 AM EDT Signed Prescriptions: Disp Refills Rosuvastatin Calcium 20 MG Oral Tablet (Cr*90 Tab 2 Sig: take 1 tablet by mouth once dailyAuthorizing Provider: NHI FLORIAN User: SHELLEY PARKER documented in this encounter Plan of Treatment Upcoming Encounters Date Type Specialty Care Team Description 10/06/2020 Office Visit Family Medicine Nhi Florian, DO [address] [place] [address] [phone] 01/04/2021 Office Visit Cardiology Yvon Harris PA-C [address] [facility] [place] [address] [phone] Health Maintenance Due Date Last Done Comments *DEPRESSION SCREENING,ANNUAL FOR PTS 12 AND OVER 05/30/2020 COVID-19 Vaccine (2 - Moderna 2-dose series) 07/30/2020 07/02/2020 Dexa Scan 10/30/2020 10/30/2013, 10/20, 08/24/2009, Additional history exists CKD PHOS USE SMARTSET 61752 11/17/202010/21, 07/15/2019, 08/13/2018, Additional history exists CKD GFR USE SMARTSET 80312 12/30/202007/02, 04/06/2020, 11/18/2019, Additional history exists CKD HGB USE SMARTSET 31210 04/06/202104/06, 04/04/2019, 08/13/2018, Additional history exists DIABETES [...] Documents on File Type Date Recorded Patient E Learning Coordinator Expl anation Advance Directives and Living Will 08/13/2009 12:00 AM LIVING WILL Power of Solar Energy Consultant And Designer 08/13/2009 12:00 AM DOMONIQUE R OF MOBILE PHONE SALESPERSON DURABLE HEALTH POA AND HEALTH CARE TREATMENT INSTR Power of Solar Energy Consultant And Designer 08/13/2009 12:00 AM DOMONIQUE R OF MOBILE PHONE SALESPERSON DURABLE HEALTH CARE POA Advanced Directive service [...]
--- OUTSIDE RECORDS SUMMARY | 2023-01-22 22:56 | External Medical Summary ---
Author Name Unknown Address Unknown Organization K01:[facility] - [address] [place] [address] Laboratory Report Ordering Provider Test Date Status SRINI RUCKER 07/02/2020 10:38:04 Final Observation Date Value Abnormality Reference (Units ) Status 25-OH Vitamin D total 07/02/2020 10:38:04 57 >19 (ng/mL) Final Performing Location LAB[facility]AT[facility] - [address] [place] [address]
--- OUTSIDE RECORDS SUMMARY | 2023-01-22 22:56 | External Medical Summary | Summary of Care ---
Author Name Unknown Organization [place] [address] Care Team Providers Care Resource Efficiency Manager Name Role Phone Bj Mario Primary Care Provider [phone] Reason for Visit * Reason Comments Back Pain * Evaluate & Treat - Unlimited Visits (Within 30 days (routine)) Status Reason Specialty Diagnoses / Procedures Referred By Contact Referred To Contact Pending Review Specialty Services Required Pain Management Diagnoses Low back pain without sciatica, unspecified back pain laterality, unspecified chronicity Yvon Harris PA-C [address] [facility] [place] [id number] Encounter Details Date Type Department Care Team Description 07/17/2020 Office Visit Interventional Pain Center, [facility] [address] [place] [address] Paul Berg DO [address] [place] [address] [phone] Spinal stenosis of lumbar region with neurogenic claudication*; Lumbar radicular pain Allergies No Known Active Allergiesdocumented as of this encounter (statuses as of 07/17/2020) Medications Medication Sig Dispensed Refills Start Date [...] as of this encounter (statuses as of 07/17/2020) Active Problems Problem Noted Date Benign hypertension [...] as of this encounter (statuses as of 07/17/2020) Resolved Problems Problem Noted Date Resolved Date [...] as of this encounter (statuses as of 07/17/2020) Immunizations Name Administration Dates Next Due COVID-19 [...] Pressure - - Pulse - - Temperature 35.7 C (96.2 F) 07/17/2020 10:[address] Respiratory Rate - - Oxygen Saturation - - Inhaled Oxygen Concentration - - Weight - - Height - - Body Mass Index - - documented in this encounter Progress Notes * Paul Berg, DO - 07/17/2020 10:53 AM EST Name: Eugenia Hu Date: 07/17/2020 HPI: Eugenia Hu is a 85 year old female seen in the pain management clinic for re-evaluation after I last saw her in March of 2019. At that time she experienced the probably 70% reduction in her back and lower extremity radicular pain with the epidural steroid injection. She indicates that she function pretty well up until about a month ago when she started noticing increased symptoms againparticularly into the right lower extremity extending below the knee. Pain is worse with standing and ambulation relieved by sitting. Her previous MRI does document severe underlying spinal stenosis worst at L4-L5. She has historically obtained significant improvement from intermittent injection asdocumented. She does not improved with the use of nonsteroidal anti-inflammatory agents, Tylenol ormuscle relaxants. She does do some home exercises although her ability to complete them as somewhatlimited in light of her age. 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, left 1992 HTN, goal below 140/90 Knee joint replacement status 01/13/[address] Priya Ricardo [facility] Knee joint replacement status 12/15/2013 right [facility] Macular degeneration Ugo Simon MD Menopause 1974 Need for prophylactic hormone replacement therapy (postmenopausal) 1974 Non-toxic multinodular goiter 04/2009 seen on US, repeat -10/2009 Other screening mammogram 10/24/03 Birad Code 2 Other specified glaucoma both eyes, Paul Simon MD, drops used, timolol S/P angioplasty with stent 06/30/09 [facility] Status post insertion of drug eluting coronary artery stent 04/07/20152009, DUS placed in the mid RCA at [facility] Vitamin D deficiency 10/13/2009 Past Surgical History: Procedure Laterality Date ARTHROPLASTY KNEE TOTAL Left 01/13/2011 Left, Dr Priya Ricardo [facility] ARTHROPLASTY KNEE TOTAL Right 12/16/13 Right, Dr Priya Ricardo [facility] CARDIAC CATH SCANNED RESULT 06/30/2009 DUS placed in right coronary, [facility] CARPAL TUNNEL SURGERY Bilateral 2015 bilateral COLONOSCOPY 03/22/2006 normal repeat in 2016 COLONOSCOPY, DIAGNOSTIC (RECTUM) 09/01/2016 diverticulosis/COLONOSCOPY FLEXIBLE PROXIMAL DIAGNOSTIC performed by Kaylie Ford MD at ENDOSCOPY [facility] COLONOSCOPY, DIAGNOSTIC (RECTUM) 10/09/2018 diverticulosis/[facility] COLONOSCOPY, GI REFERRAL OP 03/22/2005 diverticulosis, repeat in 10 years for surveillance reasons COLORECTAL CANCER SCREEN;W/FLE 1999 normal, Dr Estrella DENTAL SURGERY PROCEDURE NEC 1970 Dental Surgery Procedure tumor benign palate DEXA SCAN/BONE MINERAL AXIAL 07/2002 normal, repeat 2007 DEXA SCAN/BONE MINERAL AXIAL 07/20/2006 normal repeat in 6-8 years EGD, FLEXIBLE, DIAGNOSTIC 01/30/2019 acid reflux, Schatzki ring, hiatal hernia / [facility] EXERCISE ECHO 09/02/2002 normal, Dr Genao INJECT DX/THER SUBSTANCE INTERLAMINAR LUMBAR/SACRAL W IMAGE GUIDE 01/18/2018 INJECTION SPINE LUMBAR OR SACRAL performed by [facility] Cousins, DO at OR [facility] INJECT DX/THER SUBSTANCE INTERLAMINAR LUMBAR/SACRAL W IMAGE GUIDE 02/12/2018 INJECTION SPINE LUMBAR OR SACRAL performed by [facility] Cousins, DO at OR [facility] INJECT DX/THER SUBSTANCE INTERLAMINAR LUMBAR/SACRAL W IMAGE GUIDE 12/27/2018 INJECTION SPINE LUMBAR OR SACRAL performed by [facility] Cousins, DO at OR [facility] INJECT DX/THER SUBSTANCE INTERLAMINAR LUMBAR/SACRAL W IMAGE GUIDE 02/21/2019 INJECTION SPINE LUMBAR OR SACRAL performed by [facility] Cousins, DO at OR [facility] MAMMOGRAM - BILATERAL 2.1.02 negative finding. birad [...] one ovary left in, Dr Chakraborty in [facility] REMOVE CATARACT, INSERT LENS PROSTH Right 01/05/[address] Messi Simon REMOVE CATARACT, INSERT LENS PROSTH Left 01/28/[address] Messi Simon STENT, COATED/COVERED, WITH DELIVERY SYSTEM 06/30/2009 [employer] [facility] Eluding Stent [facility] TOTAL HIP REPLACEMENT & PROSTHESIS 1992 left, Dr Ricardo TOTAL HIP REPLACEMENT & PROSTHESIS 10/2000 right , Dr Ricardo at [facility] Current Outpatient Medications Medication Sig Dispense Refill [...] To affectedarea as directed. 100 g 5 acetaminophen (TYLENOL EXTRA STRENGTH) 500 MG [...] as needed for Dizziness. 30 Tab 0 cyclobenzaprine (FLEXERIL) 5 MG Tablet Take 1 Tab by mouth 2 times a day as needed for Muscle spasms. 60 Tab 5 nitroglycerin (NITROSTAT) 0.4 MG SUBL 1 every 5 min as needed with chest pain up to 3 doses in 15 minutes 25 Tab 11 Review of patient's allergies indicates: No Known Allergies Social History Tobacco Use Smoking Status Never Smoker Smokeless Tobacco Never Used Social History Substance and Sexual Activity Alcohol Use Yes Comment: occ-once every couple of months ROS CONSTITUTIONAL: Denies anorexia, weight loss, fever, night sweats RESPIRATORY: Denies shortness of breath, wheezing, productive cough CARDIOVASCULAR: Denies chest pains, irregular heartbeat HEME: Denies easy bruising , anti-coagulation therapy ROS EXAM: Remainder of ROS negative as discussed above in the HPI PHYSICAL EXAM: Temp 35.7 C (96.2 F) She can stand ambulate without gait abnormality. She has +5/5 motor function lower extremities. There are no gross sensory deficits noted. She does not have significant sacroiliac joint or trochanteric tenderness. Hip range of motion showed some modest restriction but no significant pain provocation. She has +1/4 Achilles and patellar reflexes. ASSESSMENT: Severe lumbar spinal stenosis with neurogenic claudication Right lumbar radicular pain RECOMMENDATION: Since she has obtain significant improvement in the past the from epidural injection and has not had any injection in 15 months, certainly reasonable pursue this again. She would like to proceed willbe scheduled for caudal epidural steroid injection pending insurance approval. She will continue with her current medical regimen and home exercise program. Paul Berg DO 07/17/2020 10:54 AM documented in this encounter Nursing Notes * Lorri Gotti LPN - 07/17/2020 10:43 AM EST Patient reports low back and R leg pain [id number] No improvement with chiro-Hall No MRI Does home stretching exercises documented in this encounter Plan of Treatment Upcoming Encounters Date Type Specialty Care Team Description 10/06/2020 Office Visit Family Medicine Bj Mario DO [address] [facility] [place] [address] [phone] 01/04/2021 Office Visit Cardiology Yvon Harris PA-C [address] [facility] [place] [address] [phone] Scheduled Orders Name Type Priority Associated Diagnoses Orde r Schedule INJECT DX/THER SUBSTANCE INTERLAMINAR LUMBAR/SACRAL W IMAGE GUIDE Procedures Routine Spinal stenosis of lumbar region with neurogenic claudication Ordered: 07/17/2020 Health Maintenance Due Date Last Done Comments *DEPRESSION SCREENING,ANNUAL FOR PTS 12 AND OVER 05/30/2020 COVID-19 Vaccine (2 of 2 - Moderna series) 07/30/2020 07/02/2020 Dexa Scan 10/30/2020 10/30/2013, 10/20, 08/24/2009, Additional history exists CKD PHOS USE SMARTSET 27571 11/17/202010/21, 07/15/2019, 08/13/2018, Additional history exists CKD GFR USE SMARTSET 15641 12/30/202007/02, 04/06/2020, 11/18/2019, Additional history exists CKD HGB USE SMARTSET 07370 04/06/202104/06, 04/04/2019, 08/13/2018, Additional history exists DIABETES [...] Documents on File Type Date Recorded Patient Net Applications Developer Expl anation Advance Directives and Living Will 08/13/2009 12:00 AM LIVING WILL Power of Hydrogeology Professor 08/13/2009 12:00 AM DOMONIQUE Mdasen OF [employer] DURABLE HEALTH POA AND HEALTH CARE TREATMENT INSTR Power of Hydrogeology Professor 08/13/2009 12:00 AM DOMONIQUE Madsen OF [employer] DURABLE HEALTH CARE POA Advanced Directive service [...]
--- OUTSIDE RECORDS SUMMARY | 2023-01-22 22:56 | External Medical Summary | Summary of Care ---
Author Name Unknown Organization [place] [address] Care Team Providers Care Sled Maker Name Role Phone Bj Mario DO Primary Care Provider [phone] Reason for Visit * Reason Comments Dizziness Ringing in Ears Encounter Details Date Type Department Care Team Description 04/25/2020 Convenient Care Visit [facility] [address] [place] [address] Sammy Sumner PA-C [address] [facility] [address] [place] [address] Benign paroxysmal vertigo of left ear* Allergies No Known Active Allergiesdocumented as of this encounter (statuses as of 04/25/2020) Medications Medication Sig Dispensed Refills Start Date [...] as of this encounter (statuses as of 04/25/2020) Active Problems Problem Noted Date Benign hypertension [...] as of this encounter (statuses as of 04/25/2020) Resolved Problems Problem Noted Date Resolved Date [...] as of this encounter (statuses as of 04/25/2020) Immunizations Name Administration Dates Next Due Pneumococcal [...] Sign Reading Time Taken Comments Blood Pressure 140/76 04/25/2020 2:56 PM EST Pulse 68 04/25/2020 2:56 PM EST Temperature 36.1 C (97 F) 04/25/2020 2:56 PM EST Respiratory Rate 16 04/25/2020 2:56 PM EST Oxygen Saturation 98% 04/25/2020 2:56 PM EST Inhaled Oxygen Concentration - - Weight 83.9 kg (185 lb) 04/25/2020 2:56 PM EST Height - - Body Mass Index 33.84 04/08/2020 9:13 AM EST documented in this encounter Patient Instructions * Patient Instructions* Sammy Sumner PA-C - 04/25/2020 3:26 PM EST - Stay well hydrated, Rest - Eat regular meals/snacks - Take Meclizine as needed for dizziness (may make you drowsy) - If symptoms worsen including severe headache, chest pain, SOB, vision changes, weakness call 911 for EMS transport to the ER. -Follow up with your primary care doctor if symptoms fail to improve in 3-4 days, sooner if worse Managing Balance Problems: Vestibular Rehabilitation Therapy An inner ear problem can knock out part of the balance system. Vestibular rehabilitation therapy helps you learn how to rely on specific parts of your balance system. Checking eye movement The therapist will check for nystagmus. This is an automatic, jumpy eye movement. Nystagmus in certain positions can mean an inner ear problem. It can even show which semicircular canal is affected. The therapist will watch your eyes while you move into different positions. Treating your condition Treatment can include: Canalith repositioning. This is a series of guided head and body movements. It helps move crystals, easing symptoms of benign positional vertigo (BPV). Habituation exercises to retrain your balance system. The therapist will teach you how to do these exercises at home. Gaze stabilization exercises. These areto retrain the eyes to stay in focus while your head moves. This helps ease dysequilibrium. Gait and balance training. This includes standing and walking on different surfaces. The therapist can teach you how to keep your balance and prevent falls. Doing habituation exercises The therapist will teach exercises suited to your condition. Habituation exercises will make you dizzy at first. Just remind yourself that symptoms probably will last for only a minute. If you keep doing the exercises, they will help lessen your dizziness. Then when you do a similar movement in daily life, it is less likely to bring on symptoms. Getting back into action Dizziness doesn't have to keep you from exercising. Start with activities that don't make you dizzy. Then ease into more challenging activities. Try these tips: Always exercise with a partner. Stop if you have nausea or faintness. Walk on a treadmill, holding on to the handles for support. Use a ball machine for sports like tennis until you're ready for a live game. This way you know where to expect the ball. Don't give up. With time, most people can return to activities and sports. Date Last Reviewed: 03/22/201619991427-2886 [employer]. [address] [place] [address], [place] [address]. All rights reserved. This information is not intended as a substitute for professional medical care. Always follow your healthcare professional's instructions. The Inner Ear: Understanding the Balance System Balance is a group effort of your eyes, inner ear, joints, and muscles. They each send signals to the brain about body position and head movement. The brain uses this information to balance the body.When you have an inner ear problem, the brain may get conflicting signals. This can cause symptoms such as the feeling of spinning (vertigo). The inner ear sends signals Inside the inner ear are 3 semicircular canals. Each canal contains tiny hairs, crystals, and fluid. These structures help the canals sense up-and-down, forward and backward, and mfow-sr-oshy motion.Nerves carry the signals from the canals to the brain. The brain interprets signals Signals from throughout your body travel to the brain. Once the signals arrive, the brain decides what they mean. Sometimes signals conflict. Have you ever sat on a stopped train and watched a movingtrain go by? When that happens, your eyes signal that you're moving. But your inner ear and body signal that you're still. The brain weighs conflicting data such as this and decides what is true. The result is balance. Date Last Reviewed: 02/20/201619998009-0861 [employer]. [address] [place] [address], [place] [address]. All rights reserved. This information is not intended as a substitute for professional medical care. Always follow your healthcare professional's instructions. documented in this encounter Progress Notes * Sammy Sumner PA-C - 04/25/2020 3:10 PM EST CONVENIENT CARE NOTE HPI: Eugenia Hu is a 85 year old female who presents with chief complaint of vertigo/tinnitus x this morning Pt reports she woke up this morning feeling dizzy. She notes that symptoms worsen with sudden movement of her head and position changes. However, when she lays on her right side symptoms improve. When she lays on on her left side symptoms worsen and she gets tinnitus and "noises" in her left ear. Denies MCKEON, vision changes, chest pain, SOB, palpitations, weakness, confusion, syncope, falls, trauma, N/V/D, abdominal pain, neck or back pain, loss of taste or smell. No recent URI symptoms. No known sick contacts. She notes she got a perm last week and is wondering if she maybe got water in her ear. Does not recall having vertigo like this in the past, not to this extent. This morning ate some cereal and drank small amount of water. 04/06: seen by cardiology, EKG stable, addition of amlodipine for tighter HTN control 04/08: seen by PCP for follow up of elevated BP, he thought likely situational with passing of a few friends and some family stressors Pt has felt well up until this morning. ROS: See HPI for positives and negatives. Patient denies additional complaints. PAST MEDICAL HISTORY: Patient Active Problem List Diagnosis Code Advance [...] kidney disease) stage III I12.9, N18.30 Past Surgical History: Procedure Laterality Date ARTHROPLASTY KNEE TOTAL Left 01/13/2011 Left, Dr Priya Ricardo [facility] ARTHROPLASTY KNEE TOTAL Right 12/16/13 Right, Dr Priya Ricardo [facility] CARDIAC CATH SCANNED RESULT 06/30/2009 DUS placed in right coronary, [facility] CARPAL TUNNEL SURGERY Bilateral 2015 bilateral COLONOSCOPY 03/22/2006 normal repeat in 2016 COLONOSCOPY, DIAGNOSTIC (RECTUM) 09/01/2016 diverticulosis/COLONOSCOPY FLEXIBLE PROXIMAL DIAGNOSTIC performed by Kaylie Ford MD at ENDOSCOPY [facility] COLONOSCOPY, DIAGNOSTIC (RECTUM) 10/09/2018 diverticulosis/[facility] COLONOSCOPY, GI REFERRAL OP 03/22/2005 diverticulosis, repeat in 10 years for surveillance reasons COLORECTAL CANCER SCREEN;W/FLE 1999 normal, Dr Estrella DENTAL SURGERY PROCEDURE NEC 1970 Dental Surgery Procedure tumor benign palate DEXA SCAN/BONE MINERAL AXIAL 07/2002 normal, repeat 2007 DEXA SCAN/BONE MINERAL AXIAL 07/20/2006 normal repeat in 6-8 years EGD, FLEXIBLE, DIAGNOSTIC 01/30/2019 acid reflux, Schatzki ring, hiatal hernia / [facility] EXERCISE ECHO 09/02/2002 normal, Dr Genao INJECT [...] Paul B Cousins, DO at OR [facility] MAMMOGRAM - [...] one ovary left in, Dr Chakraborty in [facility] REMOVE CATARACT, INSERT LENS PROSTH Right 01/05/[address] Messi Simon REMOVE CATARACT, INSERT LENS PROSTH Left 01/28/[address] Messi Simon STENT, COATED/COVERED, WITH DELIVERY SYSTEM 06/30/2009 [employer] Eluding Stent [facility] TOTAL HIP REPLACEMENT & PROSTHESIS 1992 left, Dr Ricardo TOTAL HIP REPLACEMENT & PROSTHESIS 10/2000 right , Dr Ricardo at [facility] Review of patient's allergies indicates: No Known Allergies Current Outpatient Medications Medication Sig Dispense Refill Meclizine HCl 12.5 MG Oral Tablet (ANTIVERT) [...] once a day with food 100 5 Nursing Notes: Tiffany Isaac LPN 04/25/20 1459 Signed 85 yo female presents with vertigo/tinnitus which she woke up with. If she lays on right side it improves EXAM: BP 140/76 (BP Site: Left Arm, BP Position: Sitting, BP Cuff Size: Regular) | Pulse 68 | Temp 36.1 C (97 F) (Tympanic) | Resp 16 | Wt 83.9 kg (185 lb) | SpO2 98% | No | BMI 33.84 kg/m | BSA 1.92 m GENERAL: alert, healthy, no distress, well nourished and well developed HEAD: Normocephalic, atraumatic EYES: PERRL, EOMI, Conjunctiva are pink and non-injected, sclera clear EARS: External ears normal, Canals clear, TM's clear with good cone of light NOSE: no purulent discharge, no sinus tenderness, no mucosal erythema or edema OROPHARYNX: no exudate, no erythema, lips, buccal mucosa, and tongue normal and mucous membranes are moist NECK: supple, no adenopathy HEART: regular rate & rhythm, no murmurs and no gallops LUNGS: clear to auscultation bilaterally, no wheezing, rales or rhonchi ABDOMEN: abdomen soft, non-tender, normal bowel sounds, no masses or organomegaly, no rebound or guarding, no CVA tenderness, no bladder distention identified and no bruits SKIN: skin color, texture, turgor are normal, no rashes or significant lesions NEURO: alert & oriented x 3 with fluent speech, no focal motor/sensory deficits, CN II-XII grossly intact, FNF normal, negative Romberg ASSESSMENT/PLAN Benign paroxysmal vertigo of left ear (Primary) - Meclizine HCl 12.5 MG Oral Tablet (ANTIVERT); Take 1 Tab by mouth 3 times a day as needed for Dizziness. Vitals and exam reassuring, normal. Normal neuro exam, no red flags. With positional changes ronna laying on L side worsens sounds like most likely BPPV. Discussed measure to stay safe at home-- taking her time to get up and walk. May need to continue PT or other therapy for symptoms if they persist. We discussed in detail signs/symptoms that would warrant urgent reevaluation in the ER- daughter was with pt and discussed with her, as well. Pt & daughter verbalized understanding and agrees with plan. Questions/Concerns addressed. Patient Goals for plan of care discussed in detail. Patient Instructions - Stay well hydrated, Rest - Eat regular meals/snacks - Take Meclizine as needed for dizziness (may make you drowsy) - If symptoms worsen including severe headache, chest pain, SOB, vision changes, weakness call 911 for EMS transport to the ER. -Follow up with your primary care doctor if symptoms fail to improve in 3-4 days, sooner if worse Managing Balance Problems: Vestibular Rehabilitation Therapy An inner ear problem can knock out part of the balance system. Vestibular rehabilitation therapy helps you learn how to rely on specific parts of your balance system. Checking eye movement The therapist will check for nystagmus. This is an automatic, jumpy eye movement. Nystagmus in certain positions can mean an inner ear problem. It can even show which semicircular canal is affected. The therapist will watch your eyes while you move into different positions. Treating your condition Treatment can include: Canalith repositioning. This is a series of guided head and body movements. It helps move crystals, easing symptoms of benign positional vertigo (BPV). Habituation exercises to retrain your balance system. The therapist will teach you how to do these exercises at home. Gaze stabilization exercises. These areto retrain the eyes to stay in focus while your head moves. This helps ease dysequilibrium. Gait and balance training. This includes standing and walking on different surfaces. The therapist can teach you how to keep your balance and prevent falls. Doing habituation exercises The therapist will teach exercises suited to your condition. Habituation exercises will make you dizzy at first. Just remind yourself that symptoms probably will last for only a minute. If you keep doing the exercises, they will help lessen your dizziness. Then when you do a similar movement in daily life, it is less likely to bring on symptoms. Getting back into action Dizziness doesn't have to keep you from exercising. Start with activities that don't make you dizzy. Then ease into more challenging activities. Try these tips: Always exercise with a partner. Stop if you have nausea or faintness. Walk on a treadmill, holding on to the handles for support. Use a ball machine for sports like tennis until you're ready for a live game. This way you know where to expect the ball. Don't give up. With time, most people can return to activities and sports. Date Last Reviewed: 03/22/201619995248-[address] [employer]. [address] [place] [id number]. All rights reserved. This information is not intended as a substitute for professional medical care. Always follow your healthcare professional's instructions. The Inner Ear: Understanding the Balance System Balance is a group effort of your eyes, inner ear, joints, and muscles. They each send signals to the brain about body position and head movement. The brain uses this information to balance the body.When you have an inner ear problem, the brain may get conflicting signals. This can cause symptoms such as the feeling of spinning (vertigo). The inner ear sends signals Inside the inner ear are 3 semicircular canals. Each canal contains tiny hairs, crystals, and fluid. These structures help the canals sense up-and-down, forward and backward, and jftw-it-cfwn motion.Nerves carry the signals from the canals to the brain. The brain interprets signals Signals from throughout your body travel to the brain. Once the signals arrive, the brain decides what they mean. Sometimes signals conflict. Have you ever sat on a stopped train and watched a movingtrain go by? When that happens, your eyes signal that you're moving. But your inner ear and body signal that you're still. The brain weighs conflicting data such as this and decides what is true. The result is balance. Date Last Reviewed: 02/20/201619992734-7410 [employer]. [address] [place] [address]. All rights reserved. This information is not intended as a substitute for professional medical care. Always follow your healthcare professional's instructions. FOLLOW UP: Patient instructed to follow up with Primary Care Provider if no better in 5-7 days and immediately if signs and symptoms worsen. Go to ED for acutely worsening symptoms. Sammy Sumner PA-C [facility] [address] [facility] [address] documented in this encounter Nursing Notes * Tiffany Isaac LPN - 04/25/2020 2:52 PM EST 85 yo female presents with vertigo/tinnitus which she woke up with. If she lays on right side it improves documented in this encounter Plan of Treatment Upcoming Encounters Date Type Specialty Care Team Description 07/07/2020 Office Visit Cardiology Yvon Harris PA-C [address] [facility] [place] [address] [phone] 10/06/2020 Office Visit Family Medicine Bj Mario, DO [address] [place] [address] [phone] Health Maintenance Due Date Last Done Comments CKD GFR USE SMARTSET 00841 10/04/202004/06, 11/18/2019, 07/15/2019, Additional history exists Dexa Scan 10/30/2020 10/30/2013, 10/20, 08/24/2009, Additional history exists CKD PHOS USE SMARTSET 53817 11/17/202010/21, 07/15/2019, 08/13/2018, Additional history exists CKD HGB USE SMARTSET 68754 04/06/202104/06, 04/04/2019, 08/13/2018, Additional history exists DIABETES [...] of this encounter Visit Diagnoses Diagnosis Benign paroxysmal vertigo of left ear- Primary Benign paroxysmal positional vertigo documented in this encounter Advance Directives Documents on File Type Date Recorded Patient Medication Specialist Expl anation Advance Directives and Living Will 08/13/2009 12:00 AM LIVING WILL Power of Sanitation Worker Cleaning Machinery 08/13/2009 12:00 AM DOMONIQUE R OF TRANSACTION COORDINATOR DURABLE HEALTH POA AND HEALTH CARE TREATMENT INSTR Power of Sanitation Worker Cleaning Machinery 08/13/2009 12:00 AM DOMONIQUE R OF TRANSACTION COORDINATOR DURABLE HEALTH CARE POA Advanced Directive service a mike default Advanced Directive Advanced Directive Advanced Directive Advanced Directive Advanced Directive Advanced Directive Advanced Directive Advanced Directive Advanced Directive Advanced Directive Advanced Directive Advanced Directive 09/01/2016 8:20 AM Advanced Directive Advanced Directive Advanced Directive Advanced Directive Advanced Directive Advanced Directive Advanced Directive Advanced Directive Advanced Directive
--- OUTSIDE RECORDS SUMMARY | 2023-01-22 22:56 | External Medical Summary | Summary of Care ---
Author Name Unknown Organization [place] [address] Care Team Providers Care Traffic Law Attorney Name Role Phone Bj Mario DO Primary Care Provider [phone] Reason for Visit * Reason Onset Date Comments Health Maintenance 08/19/2020 Encounter Details Date Type Department Care Team Description 08/19/2020 Telephone Family Practice [facility] [address] [place] [address] Bj Mario DO [address] [place] [address] [phone] Health Maintenance Allergies No Known Active Allergiesdocumented as of this encounter (statuses as of 08/19/2020) Medications Medication Sig Dispensed Refills Start Date [...] as of this encounter (statuses as of 08/19/2020) Active Problems Problem Noted Date Benign hypertension [...] as of this encounter (statuses as of 08/19/2020) Resolved Problems Problem Noted Date Resolved Date [...] as of this encounter (statuses as of 08/19/2020) Immunizations Name Administration Dates Next Due COVID-19 [...] Telephone Encounter - Martine Doherty LPN - 08/19/2020 10:17 AM EDT Care Gaps Comprehensive Care Outreach Last Office/Telemedicine Visit: Last Office/Telemedicine Visit: 04/08/2020 Next Office Visit: Next Office Visit: 10/06/2020 Scheduled Provider(s): Bj Mario DO Reviewed Health Maintenance below Health Maintenance Topic Date Due COVID-19 Vaccine (2 - Moderna 2-dose series) 07/30/2020 Dexa Scan 10/30/2020 CKD PHOS USE SMARTSET 63401 11/17/2020 CKD GFR USE SMARTSET 73677 12/30/2020 CKD HGB USE SMARTSET 79532 04/06/2021 Care Gap Outreach Action Taken: Able to reach: HM above ordered and scheduled as per patient agreement. AWV scheduled documented in this encounter Plan of Treatment Upcoming Encounters Date Type Specialty Care Team Description 08/28/2020 Nurse Only Ancillary Pauline, Nurse [facility] [address] [place] [address] [phone] 10/06/2020 Office Visit Family Medicine Bj Mario DO [address] [place] [address] [phone] 01/04/2021 Office Visit Cardiology Yvon Harris PA-C [address] [facility] [place] [address] [phone] Health Maintenance Due Date Last Done Comments *DEPRESSION SCREENING,ANNUAL FOR PTS 12 AND OVER 05/30/2020 COVID-19 Vaccine (2 - Moderna 2-dose series) 07/30/2020 07/02/2020 Dexa Scan 10/30/2020 10/30/2013, 10/20, 08/24/2009, Additional history exists CKD PHOS USE SMARTSET 47956 11/17/202010/21, 07/15/2019, 08/13/2018, Additional history exists CKD GFR USE SMARTSET 45784 12/30/202007/02, 04/06/2020, 11/18/2019, Additional history exists CKD HGB USE SMARTSET 54750 04/06/202104/06, 04/04/2019, 08/13/2018, Additional history exists DIABETES [...] Documents on File Type Date Recorded Patient Energy Derivatives Trader Expl anation Advance Directives and Living Will 08/13/2009 12:00 AM LIVING WILL Power of Pie Bakery Laborer 08/13/2009 12:00 AM DOMONIQUE R OF DRIVER EXAMINER DURABLE HEALTH POA AND HEALTH CARE TREATMENT INSTR Power of Pie Bakery Laborer 08/13/2009 12:00 AM DOMONIQUE R OF DRIVER EXAMINER DURABLE HEALTH CARE POA Advanced Directive service [...]
--- OUTSIDE RECORDS SUMMARY | 2023-01-22 22:56 | External Medical Summary | Summary of Care ---
Author Name Unknown Organization [place] [address] Care Team Providers Care Weigher And Crusher Name Role Phone Bj Mario DO Primary Care Provider [phone] Reason for Visit * Reason Comments Adult Annual Wellness Visit, Subsequent Visit Encounter Details Date Type Department Care Team Description 08/28/2020 Nurse Only [facility]illary [facility]enery [place] [address] [place] [address] Pauline, Nurse Annual Wellness Scenery [address] [place] [address] [phone] Adult Annual Wellness Visit, Subsequent Visit Allergies [...] >19 ng/mL Sincerely, Bj Mario, DO 08/28/2020 [facility] Calendar (as of Last Office/Telemedicine Visit: [...] your insurance company to determine what's covered. [employer] is a great tool that helps you review your medical record online, including test results, doctor notes and your health summary. You can also schedule appointments with me and other members of your care team, request prescription refills and ask for advice related to your medical conditions at [email or web address]. documented in this encounter Progress Notes * [...] replacement status 01/13/[address] Priya Ricardo [facility] Knee joint replacement status 12/15/2013 right [facility] Macular degeneration Ugo Simon MD Menopause 1974 Need for prophylactic hormone replacement therapy (postmenopausal) 1974 Non-toxic multinodular goiter 04/2009 seen on US, repeat -10/2009 Other screening mammogram 10/24/03 [facility] Code 2 Other specified glaucoma both eyes, Paul Simon MD, drops used, timolol S/P angioplasty with stent 06/30/09 [facility] Status post insertion of drug eluting coronary artery stent 04/07/20152009, DUS placed in the mid RCA at [facility] Vitamin D deficiency 10/13/2009 Past Surgical History: Procedure Laterality Date ARTHROPLASTY KNEE TOTAL Left 01/13/2011 Left, Dr Priya Ricardo [facility] ARTHROPLASTY KNEE TOTAL Right 12/16/13 Right, Dr Priya Ricardo [facility] CARDIAC CATH SCANNED RESULT 06/30/2009 DUS placed in right coronary, [facility] CARPAL TUNNEL SURGERY Bilateral 2014 bilateral COLONOSCOPY 03/22/2006 normal repeat in 2015 COLONOSCOPY, DIAGNOSTIC (RECTUM) 09/01/2016 diverticulosis/COLONOSCOPY FLEXIBLE PROXIMAL DIAGNOSTIC performed by Kaylie Ford MD at ENDOSCOPY [facility] COLONOSCOPY, DIAGNOSTIC (RECTUM) 10/09/2018 diverticulosis/[facility] COLONOSCOPY, GI REFERRAL OP 03/22/2005 diverticulosis, repeat in 10 years for surveillance reasons COLORECTAL CANCER SCREEN;W/FLE 1999 normal, Dr Estrella DENTAL SURGERY PROCEDURE NEC 1970 Dental Surgery Procedure tumor benign palate DEXA SCAN/BONE MINERAL AXIAL 07/2002 normal, repeat 2007 DEXA SCAN/BONE MINERAL AXIAL 07/20/2006 normal repeat in 6-8 years EGD, FLEXIBLE, DIAGNOSTIC 01/30/2019 acid reflux, Schatzki ring, hiatal hernia / [facility] EXERCISE ECHO 09/02/2002 normal, Dr Genao INJECT DX/THER SUBSTANCE INTERLAMINAR LUMBAR/SACRAL W IMAGE GUIDE 01/18/2018 INJECTION SPINE LUMBAR OR SACRAL performed by Paul Azam Cousins, DO at OR [facility] INJECT DX/THER SUBSTANCE INTERLAMINAR LUMBAR/SACRAL W IMAGE GUIDE 02/12/2018 INJECTION SPINE LUMBAR OR SACRAL performed by Vigoda Cousins, DO at OR [facility] INJECT DX/THER SUBSTANCE INTERLAMINAR LUMBAR/SACRAL W IMAGE GUIDE 12/27/2018 INJECTION SPINE LUMBAR OR SACRAL performed by Vigoda Cousins, DO at OR [facility] INJECT DX/THER SUBSTANCE INTERLAMINAR LUMBAR/SACRAL W IMAGE GUIDE 02/21/2019 INJECTION SPINE LUMBAR OR SACRAL performed by Vigoda Cousins, DO at OR [facility] INJECT DX/THER [...] one ovary left in, Dr Chakraborty in [facility] REMOVE CATARACT, INSERT LENS PROSTH Right 01/05/[address] Messi Simon REMOVE CATARACT, INSERT LENS PROSTH Left 01/28/[address] Messi Simon STENT, COATED/COVERED, WITH DELIVERY SYSTEM 06/30/2009 [employer] Drug Eluding Stent [facility] TOTAL HIP REPLACEMENT & PROSTHESIS 1992 left, Dr Ricardo TOTAL HIP REPLACEMENT & PROSTHESIS 10/2000 right , Dr Ricardo at [facility] Family History Problem Relation Age of [...] looking into getting new hearing aides at [facility]. PT had not trouble hearing during this [...] than 4 medications Older than age 70 Pcr-Lp-hpq-Go Test: Time began at 0900. Patient stood from sitting position and walked approximately 10 feet, returned and sat down. Total time for iev-zx-bnp-go test was 10 seconds. Srt-Fk-kgb-Go Test completed? Yes Gender Specific Preventative Plan: Health Maintenance Topic Date Due *DEPRESSION SCREENING,ANNUAL FOR PTS 12 AND OVER Never done Dexa Scan 10/30/2020 CKD PHOS USE SMARTSET 03739 11/17/2020 CKD GFR USE SMARTSET 92937 12/30/2020 CKD HGB USE SMARTSET 16984 04/06/2021 DIABETES SCREEN EVERY 3 YRS-AGE 45 [...] current medications. Continue to follow up with program developer . 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 [...] Visit Family Medicine Bj Mario, DO [address] [facility] [place] [address] [phone] 01/04/2021 Office Visit Cardiology Yvon Harris PA-C [address] [facility] [place] [address] [phone] Scheduled Orders Name Type Priority Associated Diagnoses Orde r Schedule MAMMOGRAM DIAGNOSTIC BILATERAL Medical Imaging Routine Inverted nipple Ordered: 08/28/2020 US BREAST LIMITED RIGHT Medical Imaging Routine Inverted nipple Ordered: 08/28/2020 Health Maintenance Due Date Last Done Comments *DEPRESSION SCREENING,ANNUAL FOR PTS 12 AND OVER 05/30/2020 Dexa Scan 10/30/2020 10/30/2013, 10/20, 08/24/2009, Additional history exists CKD PHOS USE SMARTSET 47942 11/17/202010/21, 07/15/2019, 08/13/2018, Additional history exists CKD GFR USE SMARTSET 78900 12/30/2020 02/11 /2021, 04/06/2020, 11/18/2019, Additional history exists CKD HGB USE SMARTSET 75473 04/06/202104/06, 04/04/2019, 08/13/2018, Additional history exists DIABETES [...] Documents on File Type Date Recorded Patient Licensed Embalmer Expl anation Advance Directives and Living Will 08/13/2009 12:00 AM LIVING WILL Power of Hog Confinement System Manager 08/13/2009 12:00 AM DOMONIQUE Madsen OF CONCRETE GRINDER OPERATOR DURABLE HEALTH POA AND HEALTH CARE TREATMENT INSTR Power of Hog Confinement System Manager 08/13/2009 12:00 AM DOMONIQUE Madsen OF CONCRETE GRINDER OPERATOR DURABLE HEALTH CARE POA Advanced Directive [...]
--- OUTSIDE RECORDS SUMMARY | 2023-01-22 22:56 | External Medical Summary ---
Author Name Unknown Address [facility] [place] [address] Phone Organization K01:[place] [id number] Laboratory Report Ordering Provider Test Date Status SRINI RUCKER 06/16/2020 14:40:00 Final Observation Date Value Abnormality Reference (Units ) Status Calcium.ionized [Molecules/volume] in Serum or Plasma by Ion-selective membrane electrode (ISE) 06/16/2020 21:01 1.39 Above high normal 1.13-1.32 (mmol/L) Final Performing Location [place] [id number]
--- OUTSIDE RECORDS SUMMARY | 2023-01-22 22:56 | External Medical Summary | Summary of Care ---
Author Name Unknown Organization [place] [address] Care Team Providers Care Stiff Neck Loader Name Role Phone Bj Mario DO Primary Care Provider [phone] Reason for Visit * Reason Comments Acute Pt c/o Rt hip pain x 2 weeks. PT states that this is an artificial hip. Pt also states that she is having back pain by her tailbone. Encounter Details Date Type Department Care Team Description 06/16/2020 Office Visit General Internal Medicine [facility] [place]ine [place] [address] [facility] [place] [address] Leonel Burns PA-C [address] [facility] [place] [address] [phone] Groin pain, right*; Benign hypertension with CKD [...] 10 times. Repeat this throughout the day. [employer] Patient Education Copyright 2008 [employer] except where otherwise noted. Preventing Falls: Moving [...] that mean climbing, even on a stepstool. [employer] Patient Education Copyright 2008 - 2010 [employer] except where otherwise noted. Urinary Incontinence Plan [...] support stockings (TEDs)if you have edema ANTIONETTE K[employer]ara 06/16/2020 * Leonel Burns PA-C - 06/16/2020 [...] contrast using standard protocol. FINDINGS There is atxdfiqe-oc-buhfjq multilevel degenerative disc disease with loss of [...] the review of axial images, At L1-2 ooef-ar-mvvduulz canal narrowing with atwn-fj-yyywhjxg bilateral foraminal narrowing At L2-3 shpxarco-iv-iscbex canal stenosis with moderate bilateral foraminal narrowing At L3-4 tgaqxkty-il-hxcqoc canal stenosis with moderate right and severe left foraminal narrowing. At L4-5 severe canal stenosis with moderate bilateral foraminal narrowing At L5-S1 gwqc-oy-nilytlij canal stenosis and at least moderate left foraminal narrowing and zlrx-iy-mlnlpivh right foraminal narrowing. When compared to the study of 2009, diffuse progression of degenerative disc disease with notable progression of canal stenosis. IMPRESSION IMPRESSION 1. Searpsde-in-kxuofv multilevel degenerative disc disease with multilevel canal and foraminal narrowing as described. 2. When compared to prior study 2009, there significant progression of degenerative disc disease with progression of canal stenosis at multiple levels. Results XR HIP UNILAT 2-3 VIEWS INCLUDING AP PELVIS [XRHIP2] (Spec. #[id number]) (Order [id number]) [employer] PACS Image PACS Images for Remote and MAC Users [employer] PACS Images for Remote Users and MAC [...] tuberosity is likely reflect calcium pyrophosphate deposition. Zumn-td-wxyzdmzc disc degenerative changes are noted in the [...] Office Visit Cardiology Yvon Harris PA-C [address] [facility] [place] [address] [phone] 10/06/2020 Office Visit Family Medicine Bj Mario, DO [address] [facility] [address] [phone] Pending Results Name Type Priority Associated Diagnoses Date /Time XR HIP UNILAT 2-3 VIEWS INCLUDING AP PELVIS Medical Imaging Routine Groin pain, right 06/16/2020 2:46 PM EST Health Maintenance Due Date Last Done Comments *DEPRESSION SCREENING,ANNUAL FOR PTS 12 AND OVER 05/30/2020 CKD GFR USE SMARTSET 28855 10/04/202004/06, 11/18/2019, 07/15/2019, Additional history exists Dexa Scan 10/30/2020 10/30/2013, 10/20, 08/24/2009, Additional history exists CKD PHOS USE SMARTSET 92952 11/17/202010/21, 07/15/2019, 08/13/2018, Additional history exists CKD HGB USE SMARTSET 04690 04/06/202104/06, 04/04/2019, 08/13/2018, Additional history exists DIABETES [...] and functional assessment Screening for unspecified condition documented in this encounter Advance Directives Documents on File Type Date Recorded Patient Financial Management Expl anation Advance Directives and Living Will 08/13/2009 12:00 AM LIVING WILL Power of Creative/Art Director 08/13/2009 12:00 AM DOMONIQUE R OF FINANCIAL REPRESENTATIVE DURABLE HEALTH POA AND HEALTH CARE TREATMENT INSTR Power of Creative/Art Director 08/13/2009 12:00 AM DOMONIQUE R OF FINANCIAL REPRESENTATIVE DURABLE HEALTH CARE POA Advanced Directive service [...]
--- OUTSIDE RECORDS SUMMARY | 2023-01-22 22:56 | External Medical Summary | Summary of Care ---
Author Name Unknown Organization [place] [address] Care Team Providers Care Gun Striper Name Role Phone Bj Mario DO Primary Care Provider [phone] Reason for Visit * Reason Onset Date Comments Test Results 06/19/2020 Encounter Details Date Type Department Care Team Description 06/19/2020 Telephone Cardiology, [facility] [address] [place] [address] Yvon Harris PA-C [address] [facility] [place] [address] [phone] Test Results Allergies No Known Active Allergiesdocumented as of this encounter (statuses as of 06/24/2020) Medications Medication Sig Dispensed Refills Start Date [...] as of this encounter (statuses as of 06/24/2020) Active Problems Problem Noted Date Benign hypertension [...] as of this encounter (statuses as of 06/24/2020) Resolved Problems Problem Noted Date Resolved Date [...] as of this encounter (statuses as of 06/24/2020) Immunizations Name Administration Dates Next Due Pneumococcal [...] encounter Miscellaneous Notes * Telephone Encounter - Jace Gonzalez RN - 06/19/2020 9:46 AM EST Called and spoke to the patient and reviewed the messsage with her from Yvon Harris PA-C in regards to her lab work. She stated she hascut way back on the use of the Tums. Explained to her that sheneeds further lab work done. She is requesting to come in to the lab on July 02, 2020. I told that would be fine. Orders pended. * Telephone Encounter - Jace Gonzalez RN - 06/19/2020 9:46 AM EST ----- Message from Yvon Harris Pa-C, PA-C sent at 06/18/2020 8:37 PM EST ----- Elevated ionized calcium. Decrease Tums if consuming Check PRP, intact PTH, 25-hydroxyvitamin D documented in this encounter Plan of Treatment Upcoming Encounters Date Type Specialty Care Team Description 07/07/2020 Office Visit Cardiology Yvon Harris PA-C [address] [facility] [place] [address] [phone] 10/06/2020 Office Visit Family Medicine Bj Mario, DO [address] [facility] [address] [phone] Scheduled Orders Name Type Priority Associated Diagnoses Orde r Schedule BASIC METABOLIC PANEL Lab Routine Serum calcium elevated Expected: 07/02/2020, Expires: 07/19/2021 PTH Lab Routine Serum calcium elevated Expected: 07/02/2020 (Approximate), Expires: 07/19/2021 25-HYDROXY VITAMIN D Lab Routine Serum calcium elevated Expected: 07/02/2020 (Approximate), Expires: 07/19/2021 Health Maintenance Due Date Last Done Comments *DEPRESSION SCREENING,ANNUAL FOR PTS 12 AND OVER 05/30/2020 CKD GFR USE SMARTSET 23816 10/04/202004/06, 11/18/2019, 07/15/2019, Additional history exists Dexa Scan 10/30/2020 10/30/2013, 10/20, 08/24/2009, Additional history exists CKD PHOS USE SMARTSET 47567 11/17/2020/01/2020, 07/15/2019, 08/13/2018, Additional history exists CKD HGB USE SMARTSET 79316 04/06/202104/06, 04/04/2019, 08/13/2018, Additional history exists DIABETES [...] as of this encounter Visit Diagnoses Diagnosis Serum calcium elevated- Primary Hypercalcemia documented in this encounter Advance Directives Documents on File Type Date Recorded Patient Ferry Pilot Expl anation Advance Directives and Living Will 08/13/2009 12:00 AM LIVING WILL Power of Financial Services Technician 08/13/2009 12:00 AM DOMONIQUE R OF BULB WEEDER DURABLE HEALTH POA AND HEALTH CARE TREATMENT INSTR Power of Financial Services Technician 08/13/2009 12:00 AM DOMONIQUE R OF [employer] DURABLE HEALTH CARE POA Advanced Directive service [...]
--- OUTSIDE RECORDS SUMMARY | 2023-01-22 22:57 | External Medical Summary ---
Author Name Unknown Address [address] [facility] [place] [address] Phone Organization K0G:CAROLYNE Callahan Jin [address] [facility] [place] [address] Laboratory Report Ordering Provider Test Date Status SRINI RUCKER 04/06/2020 10:20:00 Final Observation Date Value Abnormality Reference (Units ) Status Fasting status - Reported 04/06/2020 10:24 >8 HOURS (hours) Final Triglyceride 04/06/2020 21:23 159 0-174 (mg/dL) Final Performing Location [facility] Sindy Jin [address] [place] [address]
--- OUTSIDE RECORDS SUMMARY | 2023-01-22 22:57 | External Medical Summary | Summary of Care ---
Author Name Unknown Organization [place] [address] Care Team Providers Care Fish Smoker Name Role Phone Bj Mario Primary Care Provider [phone] Reason for Visit * Reason Comments Follow Up Encounter Details Date Type Department Care Team Description 10/03/2019 Telemedicine Cardiology, [facility] [address] [place] [place] [address] Yvon Harris PA-C [address] [place] [address] [phone] Chest pressure*; Chronic ischemic heart disease; Asymptomatic bilateral carotid artery stenosis; 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); S/P angioplasty with stent; Dyslipidemia, goal LDL below 70 Allergies No Known Allergiesdocumented as of this encounter (statuses as of 10/06/2019) Medications Medication Sig Dispensed Refills Start Date [...] hours as needed for Pain. 0 Active lisinopril (PRINIVIL) 10 MG TabletIndications:Charles gn hypertension with CKD (chronic kidney disease) stage III (HCC),Edema Take 1 Tab by mouth daily. 90 Tab 3 02/05/2019 Active rOPINIRole (REQUIP) 0.25 MG TabletIndications:Rest less legs syndrome Take 1 Tab by mouth at bedtime. 90 Tab 3 02/05/2019 Active cyclobenzaprine (FLEXERIL) 5 MG TabletIndications:Spas m of muscle Take 1 Tab by mouth 2 times a day as needed for Muscle spasms. 60 Tab 5 03/20/2019 Active famotidine (PEPCID) 20 MG TabletIndications:Juan roesophageal reflux disease without esophagitis Take 1 Tab by mouth 2 times a day. 60 Tab 11 03/20/2019 Active zoster vac recomb adjuvanted (SHINGRIX) 50 MCG/0.5ML injection Inject 0.5 mL into a large muscle now and repeat dose in 60 to 180 days. Please fax date this was given to our office. 1 Each 1 03/20/2019 Active metoprolol succinate XL (TOPROL XL) 25 MG [id number]:Chroni c ischemic heart disease Take 0.5 Tabs by mouth daily. 45 Tab 3 03/20/2019 Active rosuvastatin (CRESTOR) 20 MG TabletIndications:Dysl ipidemia, goal LDL below 70 take 1 tablet by mouth once daily 90 Tab 1 08/12/2019 Active travoprost, MAYA Free, (TRAVATAN Z) 0.004 % ophthalmic solution Instill 1 Drop into both eyes every evening. 2.5 mL 0 09/03/2019 Active traMADol (ULTRAM) 50 MG TabletIndications:Cerv icalgia Take 1 Tab by mouth daily as needed for Pain, Severe. 30 Tab 0 09/03/2019 Active Diclofenac Sodium (VOLTAREN) 1 % gelIndications:Cervica lgia Place 4 g topically on the skin 4 times a day. To affected area as directed. 100 g 5 09/03/2019 Active documented as of this encounter (statuses as of 10/06/2019) Active Problems Problem Noted Date Benign hypertension with CKD (chronic ki dney disease) stage III 09/06/2017 History of deep vein thrombosis (DVT) of lower extremity 09/08/2016 Status post insertion of drug eluting co ronary artery stent 04/07/2015 Overview: 2009, DUS placed in the mid RCA at [facility] Asymptomatic bilateral carotid artery st enosis 06/10/2014 Raynaud phenomenon 06/13/2011 Knee joint replacement status 01/13/2011 Overview: 2014, right Dr Ricardo [facility] 2011: left Dr Priya Ricardo [facility] Dyslipidemia, goal LDL below 70 09/21/19 11 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 neurogenic claudication 02/17/2010 Vitamin D deficiency 10/13/2009 Chronic ischemic heart disease 0 S/P angioplasty with stent 06/30/2009 Overview: 07/01/2009 DUS in the RCA at [facility] Non-toxic multinodular goiter 04/21/2009 Overview: seen [...] as of this encounter (statuses as of 10/06/2019) Resolved Problems Problem Noted Date Resolved Date [...] as of this encounter (statuses as of 10/06/2019) Immunizations Name Administration Dates Next Due Pneumococcal Conjugate Vacc, 13 Valent (Prevnar) 09/22/2014 Pneumococcal Polysaccharide PPV23 (Pneumovax) 03/12/2002 Seasonal Influenza, Quadriva lent, No Preserve, 6 Mons & Above, IM 03/14/2018,03/23/2017 Seasonal Influenza, Quadriva lent, No Preserve, IM 04/11/2016,04/06/2015 Seasonal Influenza, Trivalen t, Adjuvanted, 65+ yrs 03/20/2019 Seasonal Influenza, Trivalen t, with Preserve, 3yr & Above, Split 03/10/2014,04/25/2013,03/20/2012,03/18,02/17/2010,02/04/2009,04/28/2008 ,03/30/2007,02/22/2007,03/01/2006,02/20,03/12/2002 TD, Preservative Free 04/21/2012,04/28/2008 TDAP (age 10 and older)(Boostrix) 08/28/2018 Varicella Zoster Vaccine (Adult) 06/11/2008 documented as of this encounter Social History Tobacco Use Types Packs/Day Years Used Date Never Smoker Smokeless Tobacco: Never Used Tobacco Cessation:Counseling Given: Yes Alcohol Use Drinks/Week oz/Week Comments Yes occ-once [...] file Not on file Not on file Travel History Travel Start Travel End COVID-19 Exposure Response Date Recorded In the last month, have you been in contact with someone who was confirmed or suspected to have Coronavirus / COVID-19? Unable to assess 09/24/2019 8:54 AM EDT documented as of this encounter Last Filed Vital Signs Vital Sign Reading Time Taken Comments Blood Pressure - - Pulse - - Temperature - - Respiratory Rate - - Oxygen Saturation - - Inhaled Oxygen Concentration - - Weight 82.6 kg (182 lb) 10/03/2019 9:33 AM EDT r eading per pt Height - - Body Mass Index 33.29 07/15/2019 10:31 AM EST documented in this encounter Progress Notes * Yvon Harris PA-C - 10/03/2019 9:56 AM EDT Date: 10/03/2019 TELEPHONE FOLLOWUP VISIT - CARDIOLOGY Name: Eugenia Hu After connecting to the patient via telephone, the patient was identified by name and date of . Patient was then informed that this was a telephone call only visit. The patient agreed to participate. This is an established patient evaluated in my specialty within the past three years: Yes Last seen on April 04, 2019 Visit Disposition: Routine follow-up. History of Present Illness: Eugenia Hu is an 84-year-old female who is being evaluated today via telemedicine due to the COVID-19 pandemic. Patient describes a heaviness in her chest from time to time, without rhyme or reason, not particularly aggravated by exertional activity. Chronic PPI therapy notably prescribed by GI, discontinued by PCP due to concerns regarding dementia per patient report. On Pepcid twice per day. Patient previously described to the undersigned experiencing chest heaviness when first relaxing/retiring for the n ight, aided by taking an antacid. She has not tried antacids recently. Patient notes being able to do all her normal activities without significant limitation. Symptoms are not progressing in regardsto frequency or severity. Stable exertional dyspnea. No tachypalpitations. No orthopnea or PND to accompany the chronic left greater than right lower extremity edema. Stable fatigue. No dizziness, near syncope, or syncope. No fevers or chills. No night sweats. No interim ER evaluations or hospitalizations History includes chest pain and abnormal adenosine [...] systolic function, EF 55%. Patient hospitalized at [facility] in June 2012 at which time she was seen by the undersigned as well as Dr. Robert Kidd. She presented with atypical chest discomfort and was referred for exercise stress testing which was negative for ischemia at 99% age predicted maximal heart rate. Additional problems include carotid disease without infarction, hypertension, hyperlipidemia, multinodular goiter, macular degeneration, glaucoma, and osteoarthritis with cervical and lumbar spinal stenosis, bilateral hip replacements, December 2010 uneventful left knee replacement, and November 2013 right knee replacement complicated by postop DVT. Patient hospitalized in February 2014 with a [...] TTE was interpreted by Dr. Kidd at [facility] on September 02, 2016 as demonstrating normal LV chamber size with mild concentric LVH. Left ventricular wall motion was normal. Systolic function was normal, EF 60 to 65%. The right ventricle was noted be normal in size and function. There was moderate aortic sclerosis without significant stenosis and trace mitral regurgitation observed. Hospitalized at [facility] in July 2018 with acute diverticulitis. Colonoscopy in September 2018 revealed diverticulosis as well as nonbleeding internal hemorrhoids. Repeat colonoscopy not recommended for screening purposes. EGD on January 30, 2019 revealed a large hiatal hernia and a nonobstructing Schatzki's ring that was dilated and biopsied. Patient Active Problem List Diagnosis Code Advance [...] (chronic kidney disease) stage III (HCC) I12.9, N18.3 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 2000, left 1992 HTN, goal below 140/90 Knee joint replacement status 01/13/[address] Priya Ricardo [facility] Knee joint replacement status 12/15/2013 right [facility] Macular degeneration Ugo Simon MD Menopause 1974 Need for prophylactic hormone replacement therapy (postmenopausal) 1974 Non-toxic multinodular goiter 04/2009 seen on US, repeat -10/2009 Other screening mammogram 10/24/03 Birad Code 2 Other specified glaucoma both eyes, Paul Simon MD, drops used, timolol S/P angioplasty with stent 06/30/09 [facility] Status post insertion of drug eluting coronary artery stent 04/07/20152009, DUS placed in the mid RCA at [facility] Vitamin D deficiency 10/13/2009 Past Surgical History: Procedure Laterality Date ARTHROPLASTY KNEE TOTAL Left 01/13/2011 Left, Dr Priya Ricardo [facility] ARTHROPLASTY KNEE TOTAL Right 12/16/13 Right, Dr Priya Ricardo [facility] CARDIAC CATH SCANNED RESULT 06/30/2009 DUS placed in right coronary, [facility] CARPAL TUNNEL SURGERY Bilateral 2015 bilateral COLONOSCOPY 03/22/2006 normal repeat in 2016 COLONOSCOPY, DIAGNOSTIC (RECTUM) 09/01/2016 diverticulosis/COLONOSCOPY FLEXIBLE PROXIMAL DIAGNOSTIC performed by Kaylie Ford MD at [facility] COLONOSCOPY, DIAGNOSTIC (RECTUM) 10/09/2018 diverticulosis/[facility] COLONOSCOPY, GI REFERRAL OP 03/22/2005 diverticulosis, repeat in 10 years for surveillance reasons COLORECTAL CANCER SCREEN;W/FLE 1999 normal, Dr Estrella DENTAL SURGERY PROCEDURE NEC 1970 Dental Surgery Procedure tumor benign palate DEXA SCAN/BONE MINERAL AXIAL 07/2002 normal, repeat 2007 DEXA SCAN/BONE MINERAL AXIAL 07/20/2006 normal repeat in 6-8 years EGD, FLEXIBLE, DIAGNOSTIC 01/30/2019 acid reflux, Schatzki ring, hiatal hernia / [facility] EXERCISE ECHO 09/02/2002 normal, Dr Genao [...] left in, Dr Chakraborty in [facility] REMOVE CATARACT, INSERT LENS PROSTH Right 01/05/[address] Messi Simon REMOVE CATARACT, INSERT LENS PROSTH Left 01/28/[address] Messi Simon STENT, COATED/COVERED, WITH DELIVERY SYSTEM 06/30/2009 [employer] Drug Eluding Stent [facility] TOTAL HIP REPLACEMENT & PROSTHESIS 1992 left, Dr Ricardo TOTAL HIP REPLACEMENT & PROSTHESIS 10/2000 right , Dr Ricardo at 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 Complete Review of Systems: See above. Otherwise negative or noncontributory. Review of patient's allergies indicates: No Known Allergies Outpatient Medications Marked as Taking for the 10/03/19 encounter (Telemedicine) with Yvon Harris PA-C Medication Sig Diclofenac Sodium (VOLTAREN) 1 % gel Place 4 g topically on the skin 4 times a day. To affectedarea as directed. traMADol (ULTRAM) 50 MG Tablet Take 1 Tab by mouth daily as needed for Pain, Severe. travoprost, MAYA Free, (TRAVATAN Z) 0.004 % ophthalmic solution Instill 1 Drop into both eyes every evening. rosuvastatin (CRESTOR) 20 MG Tablet take 1 tablet by mouth once daily cyclobenzaprine (FLEXERIL) 5 MG Tablet Take 1 Tab by mouth 2 times a day as needed for Muscle spasms. famotidine (PEPCID) 20 MG Tablet Take 1 Tab by mouth 2 times a day. metoprolol succinate XL (TOPROL XL) 25 MG TB24 Take 0.5 Tabs by mouth daily. zoster vac recomb adjuvanted (SHINGRIX) 50 MCG/0.5ML injection Inject 0.5 mL into a large muscle now and repeat dose in 60 to 180 days. Please fax date this was given to our office. lisinopril (PRINIVIL) 10 MG Tablet Take 1 Tab by mouth daily. rOPINIRole (REQUIP) 0.25 MG Tablet Take 1 Tab by mouth at bedtime. acetaminophen (TYLENOL EXTRA STRENGTH) 500 MG Tablet [...] once a day with food OBJECTIVE/PHYSICAL EXAMINATION: Wt 182 lbs (82.555kg) | BMI 33.29 kg/m | BSA 1.9 m No physical examination transpired as this was a telephone visit only Additional Data: August 28, 2017 DSE Interpretation [...] visible on current study. Carotid duplex in November 2018 revealed mild right internal carotid artery disease, 50 to 69% left internal carotid artery disease. This was stable, unchanged dating back to January 2015. IMPRESSION: Complex 84-year-old female evaluated via telephone in the midst of the COVID-19 pandemic. Patient describes occasional episode of chest heaviness occurring without rhyme or reason. Etiology undefined though symptoms, by history, suggest GI etiology more than cardiac. Options of management discussed with patient and daughter. They do not believe symptoms warrant evaluation at this time. She will trial antacids as needed. If improvement noted would consider switching famotidine back to Protonix, as discussed. She will make an appointment with the undersigned if symptoms worsen in regards to frequency or severity. Routine cardiology follow-up in 4 to 6 months or as needed. ER with e mergencies. 1. Stable ASCVD. 2. Hypertension. Acceptably controlled. 3. Hyperlipidemia, on moderate intensity statin therapy. LDL 55 mg/dL in January 2018. 4. History of carotid disease without infarction RECOMMENDATIONS/PLAN: Fating lipid panel, TSH, CBC. Continue current cardiac medications as prescribed. Cardiology follow-up in 6 months or as needed. ER with emergencies Yvon Harris PA-C Department of Cardiology Total call duration was 14 minutes. I spent a total of 24 minutes on this patient, including reviewing the chart, the actual telephone visit, and typing this note. This chart was completed in part utilizing [employer] Speech Voice Recognition Software. Grammatical errors, random [...] documented in this encounter Nursing Notes * Richard Bliss LPN - 10/03/2019 9:35 AM EDT Telephone Appt Name: Eugenia Hu Date of : (1935) Reason for Visit: f/u Interim Hospitalization(s): denies Problems/Concerns: SOB with stairs/hills. Wishes to discuss labs as ordered by PCP & possible COVID-19 antibody testing. Chest Pain/SOB: denies chest pain [facility] is a way you can talk to your provider online through e-mail. Would you like to sign up? I can activate it for you? DECLINES documented in this encounter Plan of Treatment Upcoming Encounters Date Type Specialty Care Team Description 02/10/2020 Office Visit Family Medicine Bj Mario, DO [address] [facility] [place] [address] [phone] 04/06/2020 Office Visit Cardiology Yvon Harris PA-C [address] [place] [address] [phone] Health Maintenance Due Date Last Done Comments Zoster Vaccines (2 of 3) 08/06/2008 06/11/2008 CKD GFR USE SMARTSET 18588 01/13/202007/15, 03/20/2019, 08/13/2018, Additional history exists CKD HGB USE SMARTSET 84729 04/04/202004/04, 08/13/2018, 02/14/2018, Additional history exists CKD PHOS USE SMARTSET 19869 07/15/202006/23, 08/13/2018, 01/09/2017, Additional history exists DXA-SCREENING EVERY 7 YRS-USE SMARTSET# 3348 TO ORDER 10/30/2020 10/30/2013, 10/30/2013, 08/24/2009, Additional history exists DIABETES SCREEN EVERY 3 YRS-AGE 45 AND ABOVE 03/20/2022 03/20/2019, 08/13/2018, 03/08/2018, Additional history exists DTaP,Tdap,and Td Vaccines (2 - Td) 08/28/2028 08/28/2018, 04/21/2012, 04/28/2008 Pneumococcal Vaccine: 65+ Years Completed 09/22/2014, 03/12/2002 Influenza Vaccine (FLU shot) Completed , 03/14/2018, 03/23/2017, Additional history exists MENINGOCOCCAL (MENACTRA/MENVEO) Aged Out No longer eligible based on patient's age to complete this topic documented as of this encounter Implants Not on filedocumented as of this encounter Visit Diagnoses Diagnosis Chest pressure- Primary Other chest pain Chronic ischemic heart disease Chronic ischemic heart disease, unspecified Asymptomatic bilateral carotid artery stenosis Occlusion and stenosis of multiple and bilateral precerebral arteries without mention of cerebral infarction 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 I through stage IV, or unspecified S/P angioplasty with stent Postsurgical percutaneous transluminal coronary angioplasty status Dyslipidemia, goal LDL below 70 Other and unspecified hyperlipidemia documented in this encounter Advance Directives Documents on File Type Date Recorded Patient Acupuncture Physician Expl anation Advance Directives and Living Will 08/13/2009 12:00 AM LIVING WILL Power of Fruit And Vegetable Packer 08/13/2009 12:00 AM DOMONIQUE R OF CERTIFICATION OFFICER DURABLE HEALTH POA AND HEALTH CARE TREATMENT INSTR Power of Fruit And Vegetable Packer 08/13/2009 12:00 AM DOMONIQUE R OF CERTIFICATION OFFICER DURABLE HEALTH CARE POA Advanced Directive service a mike default Advanced Directive Advanced Directive Advanced Directive Advanced Directive Advanced Directive Advanced Directive Advanced Directive Advanced Directive Advanced Directive Advanced Directive Advanced Directive Advanced Directive 09/01/2016 8:20 AM Advanced Directive Advanced Directive"
--- OUTSIDE RECORDS SUMMARY | 2023-01-22 22:57 | External Medical Summary | Summary of Care ---
Author Name Unknown Organization [place] [address] Care Team Providers Care Etcher Electrolytic Name Role Phone Bj Mario DO Primary Care Provider [phone] Reason for Visit * Reason Comments Medication Administration Flu and/or Pne umo Inj Follow Up Encounter Details Date Type Department Care Team Description 04/08/2020 Office Visit Family Practice [facility] [address] [place] [address] Bj Mario [address] [place] [address] [phone] Gastroesophageal reflux disease without esophagitis*; Need for prophylactic vaccination and inoculation against influenza; CHR ISCHEMIC HRT DIS NOS; 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 neurogenic claudication; Dyslipidemia, goal LDL below 70; Asymptomatic bilateral carotid artery stenosis; Benign hypertension with CKD (chronic kidney disease) stage III; HTN, goal below 140/90 Allergies No Known Active Allergiesdocumented as of this encounter (statuses as of 04/08/2020) Medications Medication Sig Dispensed Refills Start Date [...] Additional Information Patient not taking. Reported on 04/06/2020 acetaminophen (TYLENOL EXTRA STRENGTH) 500 MG Tablet [...] Active rOPINIRole HCl 0.25 MG Oral Tablet (REQUIP)Indicatio ns:Restless legs syndrome take 1 tablet by mouth at bedtime 90 Tab 3 02/12/2020 Active Rosuvastatin Calcium 20 MG Oral Tablet (CRESTOR)Indicati ons:Dyslipidemia, goal LDL below 70 take 1 tablet by mouth once daily 90 Tab 1 02/12/2020 Active Lisinopril 10 MG Oral Tablet (PRINIVIL)Indicat ions:Benign hypertension with CKD (chronic kidney disease) stage III,Edema take 1 tablet by mouth once daily 90 Tab 3 03/26/2020 Active amLODIPine Besylate 2.5 MG Oral Tablet (NORVASC) Take 1 Tab by mouth daily. 31 Tab 5 04/06/2020 Active Famotidine 20 MG Oral Tablet (Pepcid)Indicatio ns:Gastroesophage al reflux disease without esophagitis Take 1 Tab by mouth 2 times a day. 60 Tab 11 04/08/2020 Active Metoprolol Succinate ER 25 MG Oral Tablet Extended Release 24 Hour (toPROL XL)Indications:Ch ronic ischemic heart disease Take 0.5 Tabs by mouth daily. 45 Tab 3 04/08/2020 Active famotidine (PEPCID) 20 MG TabletIndications :Gastroesophageal reflux disease without esophagitis Take 1 Tab by mouth 2 times a day. 60 Tab 11 03/20/2019 04/08/20 20 Discontinued(Ref ill) zoster vac recomb adjuvanted (SHINGRIX) 50 MCG/0.5ML injection Inject 0.5 mL into a large muscle now and repeat dose in 60 to 180 days. Please fax date this was given to our office. 1 Each 1 03/20/2019 04/08/20 20 Discontinued metoprolol succinate XL (TOPROL XL) 25 MG [id number]:C hronic ischemic heart disease Take 0.5 Tabs by mouth daily. 45 Tab 3 03/20/2019 04/08/20 20 Discontinued(Ref ill) traMADol (ULTRAM) 50 MG TabletIndications :Cervicalgia Take 1 Tab by mouth daily as needed for Pain, Severe. 30 Tab 0 09/03/2019 04/08/20 20 Discontinued documented as of this encounter (statuses as of 04/08/2020) Active Problems Problem Noted Date Benign hypertension with CKD (chronic ki dney disease) stage III 09/06/2017 History of deep vein thrombosis (DVT) of lower extremity 09/08/2016 Status post insertion of drug eluting co ronary artery stent 04/07/2015 Overview: 2009, DUS placed in the mid RCA at [facility] Asymptomatic bilateral carotid artery st enosis 06/10/2014 Raynaud phenomenon 06/13/2011 Knee joint replacement status 01/13/2011 Overview: 2014, right Dr Ricardo [facility] 2011: left Dr Priya Ricardo [facility] Dyslipidemia, goal LDL below 70 09/21/19 11 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 neurogenic claudication 02/17/2010 Vitamin D deficiency 10/13/2009 Chronic ischemic heart disease 0 S/P angioplasty with stent 06/30/2009 Overview: 07/01/2009 DUS in the RCA at [facility] Non-toxic multinodular goiter 04/21/2009 Overview: seen on [...] as of this encounter (statuses as of 04/08/2020) Resolved Problems Problem Noted Date Resolved Date [...] as of this encounter (statuses as of 04/08/2020) Immunizations Name Administration Dates Next Due Pneumococcal [...] Sign Reading Time Taken Comments Blood Pressure 128/68 04/08/2020 9:13 AM EST Pulse 68 04/08/2020 9:13 AM EST Temperature 35.9 C (96.7 F) 04/08/2020 9:13 AM ES T Respiratory Rate 16 04/08/2020 9:13 AM EST Oxygen Saturation - - Inhaled Oxygen Concentration - - Weight 86.9 kg (191 lb 9.6 oz) 04/08/2020 9:13 A M EST Height 157.5 cm (5' 2") 04/08/2020 9:13 AM EST Body Mass Index 35.04 04/08/2020 9:13 AM EST documented in this encounter Progress Notes * Bj Mario, - 04/08/2020 9:34 AM EST Subjective: Eugenia Hu is a 85 year old female. Chief Complaint Patient presents with Medication Administration Flu and/or Pneumo Inj Follow Up HPI: Pt with high BP two days ago. Started on Amlodipine. Better today. She also forgot her medication Monday night. Two friends and her grandson is going through a divorce. Calcium was a little high on her blood work. She takes Tums a few times per week. She does Vitamin C. Was called and told to not worry about. Shingrix shots done. PMHx, meds, and allergies reviewed Patient Active [...] Refill amLODIPine Besylate 2.5 MG Oral Tablet (NORVASC) [...] affected area as directed. 100 g 5 traMADol (ULTRAM) 50 MG Tablet Take 1 Tab by mouth daily as needed for Pain, Severe. (Patient not taking: Reported on 04/06/2020) 30 Tab 0 cyclobenzaprine (FLEXERIL) 5 MG Tablet Take 1 Tab by mouth 2 times a day as needed for Muscle spasms. 60 Tab 5 famotidine (PEPCID) 20 MG Tablet Take 1 Tab by mouth 2 times a day. 60 Tab 11 metoprolol succinate XL (TOPROL XL) 25 MG TB24 Take 0.5 Tabs by mouth daily. 45 Tab 3 zoster vac recomb adjuvanted (SHINGRIX) 50 MCG/0.5ML injection Inject 0.5 mL into a large muscle now and repeat dose in 60 to 180 days. Please fax date this was given to our office. 1 Each 1 acetaminophen (TYLENOL EXTRA STRENGTH) 500 MG Tablet Take 500 mg by mouth every 6 hours as needed for Pain. nitroglycerin (NITROSTAT) 0.4 MG SUBL 1 every 5 min as needed with chest pain up to 3 doses in 15 minutes (Patient not taking: Reported on 04/06/2020) 25 Tab 11 VITAMIN D 1000 UNIT PO CAPS 1 capsule daily 30 Cap 11 ASPIRIN 81 MG PO CHEW One pill by mouth once a day with food 100 5 Review of patient's allergies indicates: No Known Allergies OBJECTIVE: BP 128/68 | Pulse 68 | Temp 35.9 C (96.7 F) (Tympanic) | Resp 16 | Ht (!) 1.575 m (5' 2") | Wt 86.9 kg (191 lb 9.6 oz) | BMI 35.04 kg/m | BSA 1.95 m Estimated body mass index is 35.04 kg/m as calculated from the following: Height as of this encounter: 1.575 m (5' 2"). Weight as of this encounter: 86.9 kg (191 lb 9.6 oz). BP Readings from Last 3 Encounters: 04/08/20 128/68 04/06/20 176/96 09/03/19 165/88 Wt Readings from Last 3 Encounters: 04/08/20 86.9 kg (191 lb 9.6 oz) 04/06/20 86.9 kg (191 lb 8 oz) 10/03/19 82.6 kg (182 lb) ROS: Negative except for above PHYSICAL [...] no joint deformities, effusion, or inflammation ASSESSMENT/Plan Gastroesophageal reflux disease without esophagitis (Primary) - Famotidine 20 MG Oral Tablet (Pepcid); Take 1 Tab by mouth 2 times a day. Need for prophylactic vaccination and inoculation against influenza - INFLUENZA VACC, QUAD, PF, ADJUVANTED, 65+ YRS, IM CHR ISCHEMIC HRT DIS NOS - Metoprolol Succinate ER 25 MG Oral Tablet Extended Release 24 Hour (toPROL XL); Take 0.5 Tabs by mouth daily. 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 neurogenic claudication Dyslipidemia, goal LDL below 70 Asymptomatic bilateral carotid artery stenosis Benign hypertension with CKD (chronic kidney disease) stage III HTN, goal below 140/90 BP much better today, I think her missed pills Monday night and her stress was a component. Keep onamlodipine for how good her numbers look. The above was discussed and understanding was expressed. Bj Mario DO documented in this encounter Nursing Notes * Oli Tierney LPN - 04/08/2020 9:13 AM EST Chief Complaint Patient presents with Medication Administration Flu and/or Pneumo Inj Follow Up documented in this encounter Plan of Treatment Upcoming Encounters Date Type Specialty Care Team Description 04/09/2020 Imaging Radiology 07/07/2020 Office Visit Cardiology Yvon Harris PA-C [address] [facility] [place] [address] [phone] 10/06/2020 Office Visit Family Medicine Bj Mario DO [address] [place] [address] [phone] Health Maintenance Due Date Last Done Comments CKD GFR USE SMARTSET 30608 10/04/202004/06, 11/18/2019, 07/15/2019, Additional history exists Dexa Scan 10/30/2020 10/30/2013, 10/20, 08/24/2009, Additional history exists CKD PHOS USE SMARTSET 92764 11/17/202010/21, 07/15/2019, 08/13/2018, Additional history exists CKD HGB USE SMARTSET 59597 04/06/202104/06, 04/04/2019, 08/13/2018, Additional history exists DIABETES [...] Visit Diagnoses Diagnosis Gastroesophageal reflux disease without esophagitis- Primary Esophageal reflux Need for prophylactic vaccination and inoculation against influenza CHR ISCHEMIC HRT DIS NOS Chronic ischemic [...] Documents on File Type Date Recorded Patient Computing Services Director Expl anation Advance Directives and Living Will 08/13/2009 12:00 AM LIVING WILL Power of Inside Sales Associate 08/13/2009 12:00 AM DOMONIQUE R OF CABLE SWAGER DURABLE HEALTH POA AND HEALTH CARE TREATMENT INSTR Power of Inside Sales Associate 08/13/2009 12:00 AM DOMONIQUE R OF CABLE SWAGER DURABLE HEALTH CARE POA Advanced Directive service a mike default Advanced Directive Advanced Directive Advanced Directive Advanced Directive Advanced Directive Advanced Directive Advanced Directive Advanced Directive Advanced Directive Advanced Directive Advanced Directive Advanced Directive 09/01/2016 8:20 AM Advanced Directive Advanced Directive Advanced Directive Advanced Directive Advanced Directive Advanced Directive Advanced Directive Advanced Directive
--- OUTSIDE RECORDS SUMMARY | 2023-01-22 22:57 | External Medical Summary ---
Author Name Unknown Address [address] [facility] [place] [address] Phone Organization K0G:[facility] Sindy Jin [address] [place] [id number] Laboratory Report Ordering Provider Test Date Status SRINI RUCKER 04/06/2020 10:20:00 Final Observation Date Value Abnormality Reference (Units ) Status WBC, Total 04/06/2020 10:56 5.83 4.00-10.80 ( K/uL) Final RBC 04/06/2020 10:56 4.30 3.85-5.15 (M/ uL) Final Hemoglobin 04/06/2020 10:56 13.4 12.0-15.3 (g /dL) Final HCT 04/06/2020 10:56 40.1 36.0-45.2 (%) Final MCV 04/06/2020 10:56 93.3 81.5-97.5 (fL ) Final MCH 04/06/2020 10:56 31.2 27.0-34.0 (pg ) Final MCHC 04/06/2020 10:56 33.4 32.0-36.0 (g/ dL) Final RDW 04/06/2020 10:56 12.9 11.5-15.5 (%) Final Platelets 04/06/2020 10:56 279 140-400 (K/uL ) Final MPV 04/06/2020 10:56 9.8 6.6-11.1 (fL) Final Performing Location [facility] Sindy Jin [address] [place] [id number]
--- OUTSIDE RECORDS SUMMARY | 2023-01-22 22:57 | External Medical Summary | Summary of Care ---
Author Name Unknown Organization [place] [address] Care Team Providers Care Customer Advisor Name Role Phone Nhi Florian DO Primary Care Provider [phone] Reason for Visit * Reason Comments eRx-Medication Refill Encounter Details Date Type Department Care Team Description 03/25/2020 Refill Family Practice [facility] [address] [place] [address] Nhi Florian DO [address] [facility] [place] [address] [phone] Benign hypertension with CKD (chronic kidney disease) stage III; Edema Allergies No Known Active Allergiesdocumented as of this encounter (statuses as of 03/26/2020) Medications Medication Sig Dispensed Refills Start Date [...] 5 03/20/2019 Active famotidine (PEPCID) 20 MG TabletIndications: Gastroesophageal reflux disease without esophagitis Take 1 Tab by mouth 2 times a day. 60 Tab 11 03/20/2019 Active zoster vac recomb adjuvanted (SHINGRIX) 50 MCG/0.5ML injection Inject 0.5 mL into a large muscle now and repeat dose in 60 to 180 days. Please fax date this was given to our office. 1 Each 1 03/20/2019 Active metoprolol succinate XL (TOPROL XL) 25 MG [id number]:Ch ronic ischemic heart disease Take 0.5 Tabs by mouth daily. 45 Tab 3 03/20/2019 Active traMADol (ULTRAM) 50 MG TabletIndications: Cervicalgia Take 1 Tab by mouth daily as needed for Pain, Severe. 30 Tab 0 09/03/2019 Active Diclofenac Sodium (VOLTAREN) 1 % gelIndications:Cer [...] once daily 90 Tab 3 03/26/2020 Active lisinopril (PRINIVIL) 10 MG TabletIndications: Benign hypertension with CKD (chronic kidney disease) stage III,Edema Take 1 Tab by mouth daily. 90 Tab 3 02/05/2019 03/26/2020 Discontinued documented as of this encounter (statuses as of 03/26/2020) Active Problems Problem Noted Date Benign hypertension [...] as of this encounter (statuses as of 03/26/2020) Resolved Problems Problem Noted Date Resolved Date [...] as of this encounter (statuses as of 03/26/2020) Immunizations Name Administration Dates Next Due Pneumococcal [...] Recorded Female 09/14/2018 8:42 AM E DT documented as of this encounter Miscellaneous Notes * Telephone Encounter - Joaquín Mike RPh - 03/26/2020 11:16 AM EST Signed Prescriptions: Disp Refills Lisinopril 10 MG Oral Tablet (PRINIVIL) 90 Tab 3 Sig: take 1 tablet by mouth once dailyAuthorizing Provider: NHI FLORIAN User: JOAQUÍN MIKE--------- documented in this encounter Plan of Treatment Upcoming Encounters Date Type Specialty Care Team Description 04/06/2020 Office Visit Cardiology Yvon Harris, ALEXSANDRA [address] [facility] [place] [address] [phone] 04/08/2020 Office Visit Family Medicine Nhi Florian, [address] [place] [address] [phone] Health Maintenance Due Date Last Done Comments Zoster Vaccines (2 of 3) 08/06/2008 06/11/2008 Influenza Vaccine (FLU shot) (#1) 2019 03/20/2019, 03/14/2018, 03/23/2017, Additional history exists CKD HGB USE SMARTSET 44451 04/04/202004/04, 08/13/2018, 02/14/2018, Additional history exists CKD GFR USE SMARTSET 32058 05/19/202011/17, 07/15/2019, 03/20/2019, Additional history exists Dexa Scan 10/30/2020 10/30/2013, 10/20, 08/24/2009, Additional history exists CKD PHOS USE SMARTSET 47167 11/17/202010/21, 07/15/2019, 08/13/2018, Additional history exists DIABETES SCREEN EVERY 3 YRS-AGE 45 AND ABOVE 11/17/2022 11/18/2019, 03/20/2019, 08/13/2018, Additional history exists DTaP,Tdap,and Td Vaccines (2 - Td) 08/28/2028 08/28/2018, 04/21/2012, 04/28/2008 Pneumococcal Vaccine: 65+ Years Completed 09/22/2014, 03/12/2002 MENINGOCOCCAL (MENACTRA/MENVEO) Aged Out No longer eligible [...] Documents on File Type Date Recorded Patient Solar Designer Expl anation Advance Directives and Living Will 08/13/2009 12:00 AM LIVING WILL Power of Printed Forms Proofreader 08/13/2009 12:00 AM DOMONIQUE Madsen OF FOUNDRY WORKER APPRENTICE DURABLE HEALTH POA AND HEALTH CARE TREATMENT INSTR Power of Printed Forms Proofreader 08/13/2009 12:00 AM DOMONIQUE Madsen OF FOUNDRY WORKER APPRENTICE DURABLE HEALTH CARE POA Advanced Directive service a mike default Advanced Directive Advanced Directive Advanced Directive Advanced Directive Advanced Directive Advanced Directive Advanced Directive Advanced Directive Advanced Directive Advanced Directive Advanced Directive Advanced Directive 09/01/2016 8:20 AM Advanced Directive Advanced Directive Advanced Directive
--- OUTSIDE RECORDS SUMMARY | 2023-01-22 22:57 | External Medical Summary | Summary of Care ---
Author Name Unknown Organization [place] [address] Care Team Providers Care Flume Worker Name Role Phone Bj Mario DO Primary Care Provider [phone] Reason for Visit * Reason Onset Date Comments Advice 04/09/2020 BP Encounter Details Date Type Department Care Team Description 04/09/2020 Telephone Cardiology, [facility] [address] [place] [address] Yvon Harris PA-C [address] [place] [address] [phone] Advice (BP) Allergies No Known Active Allergiesdocumented as of this encounter (statuses as of 04/09/2020) Medications Medication Sig Dispensed Refills Start Date [...] mouth daily. 45 Tab 3 04/08/2020 Active documented as of this encounter (statuses as of 04/09/2020) Active Problems Problem Noted Date Benign hypertension with CKD (chronic ki dney disease) stage III 09/06/2017 History of deep vein thrombosis (DVT) of lower extremity 09/08/2016 Status post insertion of drug eluting co ronary artery stent 04/07/2015 Overview: 2009, DUS placed in the mid RCA at [facility] Asymptomatic bilateral carotid artery st enosis 06/10/2014 Raynaud phenomenon 06/13/2011 Knee joint replacement status 01/13/2011 Overview: 2014, right Dr Ricardo [facility] 2011: left Dr Priya Ricardo [facility] Dyslipidemia, goal LDL below 70 09/21/19 11 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 neurogenic claudication 02/17/2010 Vitamin D deficiency 10/13/2009 Chronic ischemic heart disease 0 S/P angioplasty with stent 06/30/2009 Overview: 07/01/2009 DUS in the RCA at [facility] Non-toxic multinodular goiter 04/21/2009 Overview: seen [...] as of this encounter (statuses as of 04/09/2020) Resolved Problems Problem Noted Date Resolved Date [...] as of this encounter (statuses as of 04/09/2020) Immunizations Name Administration Dates Next Due Pneumococcal [...] Telephone Encounter - Stanley Felix LPN - 04/09/2020 11:37 AM EST Called patient and left Yvon's message to make patient aware with instructions to call back if any other questions or concerns. * Telephone Encounter - Yvon Harris PA-C - 04/09/2020 11:21 AM EST Stay on amlodipine. Stay hydrated. Yvon Harris PA-C Department of Cardiology * Telephone Encounter - Alvaro León RN - 04/09/2020 10:50 AM EST Pt stopped by the cardiology dept on her way out of the vascular US testing area. She wants Yvon to know that when her BP was high 176/96) at Monday's offc visit, she forgot to mention that she had some family issues with a Grandson over the weekend and that she had found out about the passing of 2 close friends. She reports that yesterday at Dr Bj Bazzi's appt it was much better (128/68). She has started the new medicine (Amlodipine 2.5 mg daily) for the last 3 evenings, yesterday morning she had taken a dose Mond and evening. She reports some mild dizziness this am. She's wondering whether she should continue? Alvaro León, RN documented in this encounter Plan of Treatment Upcoming Encounters Date Type Specialty Care Team Description 07/07/2020 Office Visit Cardiology Yvon Harris PA-C [address] [facility] [place] [address] [phone] 10/06/2020 Office Visit Family Medicine Bj Mario, DO [address] [facility] [place] [address] [phone] Health Maintenance Due Date Last Done Comments CKD GFR USE SMARTSET 46309 10/04/202004/06, 11/18/2019, 07/15/2019, Additional history exists Dexa Scan 10/30/2020 10/30/2013, 10/20, 08/24/2009, Additional history exists CKD PHOS USE SMARTSET 11095 11/17/202010/21, 07/15/2019, 08/13/2018, Additional history exists CKD HGB USE SMARTSET 96433 04/06/202104/06, 04/04/2019, 08/13/2018, Additional history exists DIABETES [...] on File Type Date Recorded Patient Director Of It Operations Expl anation Advance Directives and Living Will 08/13/2009 12:00 AM LIVING WILL Power of Cover Making Machine Operator 08/13/2009 12:00 AM DOMONIQUE R OF PROP WORKER DURABLE HEALTH POA AND HEALTH CARE TREATMENT INSTR Power of Cover Making Machine Operator 08/13/2009 12:00 AM DOMONIQUE R OF PROP WORKER DURABLE HEALTH CARE POA Advanced Directive service a mike default Advanced Directive Advanced Directive Advanced Directive Advanced Directive Advanced Directive Advanced Directive Advanced Directive Advanced Directive Advanced Directive Advanced Directive Advanced Directive Advanced Directive 09/01/2016 8:20 AM Advanced Directive Advanced Directive Advanced Directive Advanced Directive Advanced Directive Advanced Directive Advanced Directive Advanced Directive
--- OUTSIDE RECORDS SUMMARY | 2023-01-22 22:57 | External Medical Summary | Summary of Care ---
Author Name Unknown Organization [place] [address] Care Team Providers Care Card Runner Name Role Phone Bj Mario DO Primary Care Provider [phone] Reason for Visit * Reason Comments Medication Administration Flu and/or Pne umo Inj Follow Up Encounter Details Date Type Department Care Team Description 04/08/2020 Office Visit Family Practice [facility] [address] [place] [address] Bj Mario [address] [place] [address] [phone] Gastroesophageal reflux disease without esophagitis*; Need for [...] metoprolol succinate XL (TOPROL XL) 25 MG [id number]:C hronic ischemic heart disease Take 0.5 Tabs [...] Office Visit Cardiology Yvon Harris PA-C [address] [facility] [place] [address] [phone] 10/06/2020 Office Visit Family Medicine Bj Mario DO [address] [place] [address] [phone] Health Maintenance Due Date Last Done Comments CKD GFR USE SMARTSET 80743 10/04/202004/06, 11/18/2019, 07/15/2019, Additional history exists Dexa Scan 10/30/2020 10/30/2013, 10/20, 08/24/2009, Additional history exists CKD PHOS USE SMARTSET 64138 11/17/202010/21, 07/15/2019, 08/13/2018, Additional history exists CKD HGB USE SMARTSET 36469 04/06/202104/06, 04/04/2019, 08/13/2018, Additional history exists DIABETES [...] Documents on File Type Date Recorded Patient C Programmer Expl anation Advance Directives and Living Will 08/13/2009 12:00 AM LIVING WILL Power of Research Scholar 08/13/2009 12:00 AM DOMONIQUE R OF CABIN SERVICE AGENT DURABLE HEALTH POA AND HEALTH CARE TREATMENT INSTR Power of Research Scholar 08/13/2009 12:00 AM DOMONIQUE R OF CABIN SERVICE AGENT DURABLE HEALTH CARE POA Advanced Directive service a mike default Advanced Directive Advanced Directive Advanced Directive Advanced Directive Advanced Directive Advanced Directive Advanced Directive Advanced Directive Advanced Directive Advanced Directive Advanced Directive Advanced Directive 09/01/2016 8:20 AM Advanced Directive Advanced Directive Advanced Directive Advanced Directive Advanced Directive Advanced Directive Advanced Directive Advanced Directive
--- OUTSIDE RECORDS SUMMARY | 2023-01-22 22:57 | External Medical Summary | Summary of Care ---
Author Name Unknown Organization [place] [address] Care Team Providers Care Labor Arbitrator Name Role Phone Bj Mario Primary Care Provider [phone] Reason for Visit * Reason Comments Follow Up 6 month return Encounter Details Date Type Department Care Team Description 04/06/2020 Office Visit Cardiology, [facility] [address] [facility] [place] [address] Yvon Harris PA-C [address] [facility] [place] [address] [phone] Uncontrolled hypertension*; Chronic ischemic heart disease; Asymptomatic bilateral carotid artery stenosis; Benign hypertension with CKD (chronic kidney disease) stage III; S/P angioplasty with stent; Dyslipidemia, goal LDL below 70; HTN, goal below 140/90; PVC (premature ventricular contraction) Allergies No Known Active Allergiesdocumented as of this encounter (statuses as of 04/07/2020) Medications Medication Sig Dispensed Refills Start Date [...] 5 03/20/2019 Active famotidine (PEPCID) 20 MG TabletIndications:Gas troesophageal reflux disease without esophagitis Take 1 Tab by mouth 2 times a day. 60 Tab 11 03/20/2019 Active zoster vac recomb adjuvanted (SHINGRIX) 50 MCG/0.5ML injection Inject 0.5 mL into a large muscle now and repeat dose in 60 to 180 days. Please fax date this was given to our office. 1 Each 1 03/20/2019 Active metoprolol succinate XL (TOPROL XL) 25 MG [id number]:Chron ic ischemic heart disease Take 0.5 Tabs by mouth daily. 45 Tab 3 03/20/2019 Active traMADol (ULTRAM) 50 MG TabletIndications:Cer vicalgia Take 1 Tab by mouth daily as needed for Pain, Severe. 30 Tab 0 09/03/2019 Active Additional Information Patient not taking. Reported on 04/06/2020 Diclofenac Sodium (VOLTAREN) 1 % gelIndications:Cervic algia [...] mouth daily. 31 Tab 5 04/06/2020 Active documented as of this encounter (statuses as of 04/07/2020) Active Problems Problem Noted Date Benign hypertension [...] as of this encounter (statuses as of 04/07/2020) Resolved Problems Problem Noted Date Resolved Date [...] as of this encounter (statuses as of 04/07/2020) Immunizations Name Administration Dates Next Due Pneumococcal [...] Sign Reading Time Taken Comments Blood Pressure 176/96 04/06/2020 9:18 AM EST Pulse 72 04/06/2020 9:18 AM EST Temperature 35.7 C (96.2 F) 04/06/2020 9:18 AM ES T Respiratory Rate 18 04/06/2020 9:18 AM EST Oxygen Saturation - - Inhaled Oxygen Concentration - - Weight 86.9 kg (191 lb 8 oz) 04/06/2020 9:18 AM EST Height - - Body Mass Index 35.03 07/15/2019 10:31 AM EST documented in this encounter Progress Notes * Yvon Harris PA-C - 04/06/2020 9:48 AM EST History of Present Illness: Eugenia Hu is an 85-year-old female here today for cardiology evaluation. Patient returns today feeling relatively well from a cardiac standpoint. She is concernedregarding observed hypertension. No headaches or unilateral complaints to suggest TIA/CVA. No new or worsening chest pain. Stable exertional dyspnea. No palpitations. No orthopnea or PND to accompanythe minimal intermittent peripheral edema. No dizziness or lightheadedness. No near syncope or syncope. No melena or hematochezia. Patient notably takes all medications at supper time. History includes chest pain and abnormal adenosine [...] systolic function, EF 55%. Patient hospitalized at [facility] in June 2012 at which time she [...] TTE was interpreted by Dr. Kidd at [facility] on September 02, 2016 as demonstrating normal [...] replacement status 01/13/[address] Priya Ricardo [facility] Knee joint replacement status 12/15/2013 right [facility] Macular degeneration Ugo Simon MD Menopause 1974 Need for prophylactic hormone replacement therapy (postmenopausal) 1974 Non-toxic multinodular goiter 04/2009 seen on US, repeat -10/2009 Other screening mammogram 10/24/03 Birad Code 2 Other specified glaucoma both eyes, Paul Simon MD, drops used, timolol S/P angioplasty with stent 06/30/09 [facility] Status post insertion of drug eluting coronary artery stent 04/07/20152009, DUS placed in the mid RCA at [facility] Vitamin D deficiency 10/13/2009 Past Surgical History: Procedure Laterality Date ARTHROPLASTY KNEE TOTAL Left 01/13/2011 Left, Dr Priya Ricardo [facility] ARTHROPLASTY KNEE TOTAL Right 12/16/13 Right, Dr Priya Ricardo [facility] CARDIAC CATH SCANNED RESULT 06/30/2009 DUS placed in right coronary, [facility] CARPAL TUNNEL SURGERY Bilateral 2015 bilateral COLONOSCOPY 03/22/2006 normal repeat in 2016 COLONOSCOPY, DIAGNOSTIC (RECTUM) 09/01/2016 diverticulosis/COLONOSCOPY FLEXIBLE PROXIMAL DIAGNOSTIC performed by Kaylie Ford MD at ENDOSCOPY [facility] COLONOSCOPY, DIAGNOSTIC (RECTUM) 10/09/2018 diverticulosis/[facility] COLONOSCOPY, GI REFERRAL OP 03/22/2005 diverticulosis, repeat in 10 years for surveillance reasons COLORECTAL CANCER SCREEN;W/FLE 1999 normal, Dr Estrella DENTAL SURGERY PROCEDURE NEC 1970 Dental Surgery Procedure tumor benign palate DEXA SCAN/BONE MINERAL AXIAL 07/2002 normal, repeat 2007 DEXA SCAN/BONE MINERAL AXIAL 07/20/2006 normal repeat in 6-8 years EGD, FLEXIBLE, DIAGNOSTIC 01/30/2019 acid reflux, Schatzki ring, hiatal hernia / [facility] EXERCISE ECHO 09/02/2002 normal, Dr Genao INJECT DX/THER SUBSTANCE INTERLAMINAR LUMBAR/SACRAL W IMAGE GUIDE 01/18/2018 INJECTION SPINE LUMBAR OR SACRAL performed by Paul Berg, at OR [facility] INJECT DX/THER SUBSTANCE INTERLAMINAR LUMBAR/SACRAL W IMAGE [...] one ovary left in, Dr Chakraborty in [facility] REMOVE CATARACT, INSERT LENS PROSTH Right 01/05/[address] Messi Simon REMOVE CATARACT, INSERT LENS PROSTH Left 01/28/[address] eMssi Simon STENT, COATED/COVERED, WITH DELIVERY SYSTEM 06/30/2009 [employer] [facility] Eluding Stent [facility] TOTAL HIP REPLACEMENT & PROSTHESIS 1992 left, Dr Ricardo TOTAL HIP REPLACEMENT & PROSTHESIS 10/2000 right , Dr Ricardo at [facility] Family History Problem Relation Age of [...] file Gets together: Not on file Attends christian service: Not on file Active member of [...] Social History Narrative born [place] in [facility] since 1953 ; 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 Complete Review of Systems: See above. Otherwise negative or noncontributory. Review of patient's allergies indicates: No Known Allergies Outpatient Medications Marked as Taking for the 04/06/20 encounter (Office Visit) with Yvon Harris PA-C Medication Sig Lisinopril 10 MG Oral Tablet (PRINIVIL) take [...] TB24 Take 0.5 Tabs by mouth daily. acetaminophen (TYLENOL EXTRA STRENGTH) 500 MG Tablet Take 500 mg by mouth every 6 hours as needed for Pain. VITAMIN D 1000 UNIT PO CAPS 1 capsule daily ASPIRIN 81 MG PO CHEW One pill by mouth once a day with food OBJECTIVE/PHYSICAL EXAMINATION: BP 176/96 | Pulse 72 | Temp 35.7 C (96.2 F) | Resp 18 | Wt 86.9 kg (191 lb 8 oz) | BMI 35.03 kg/m | BSA 1.95 m | General: NAD. HEENT: Normocephalic. Atraumatic. PER. Conjunctiva pink, sclera clear. Bilateral carotid bruits. No overt JVD. Heart: RRR, 60 bpm. Soft systolic murmur. Lungs: Clear to auscultation. Abdomen: +BS. Soft. Nontender. No masses or organomegaly. Extremities: Minimal distal edema. No clubbing. No cyanosis. Pulses: radial=2/4, [...] back to January 2015. ASSESSMENT: 1. ASCVD. Stable. 2. Hypertension. Uncontrolled. 3. Hyperlipidemia. Optimal LDL goal less than 70 mg/dL. 4. Internal carotid artery disease without infarction Options of management discussed. Plan as outlined below. RECOMMENDATIONS/PLAN: Add amlodipine 2.5 mg/day for additional blood pressure control. Prescription sent to the pharmacy of her choice electronically; benefits, use, and risks fully explained. Fasting laboratory work today Routine bilateral carotid duplex. Cardiology follow-up in 2 to 3 months or as needed. ER with emergencies. Yvon Harris PA-C Department of Cardiology documented in this encounter Procedure Notes * Thierno Marrero Jr., DO - 04/06/2020 9:27 AM EST Associated Order(s): EKG REASON FOR STUDY: Routine CONCLUSIONS: Sinus rhythm with occasional Premature ventricular complexes and Premature atrial complexes Low voltage QRS, consider pulmonary disease, pericardial effusion, or normal variant Septal infarct , age undetermined Abnormal ECG When compared with ECG of 18-SEP-2018 08:41, Premature ventricular complexes are now Present Premature atrial complexes are now Present Septal infarct is now Present Ventricular Rate: 67 Atrial Rate: 67 MA Interval: 176 QRS Duration: 104 QT/QTc: 398/420 ms P-R-T Center [place]: 71 : 27 : 67 degrees documented in this encounter Nursing Notes * Stanley Felix LPN - 04/06/2020 9:17 AM EST Patient identified by full name and date of Chief Complaint Patient presents with Follow Up 6 month return Examination Room: 2 Name: Eugenia Hu Date of : (1935). Reason for Visit: 6 month follow up Interim Hospitalization(s): Denies Problems/Concerns: Denies Chest Pain/SOB: SOB but no changes [facility] a way you can [...] Encounters Date Type Specialty Care Team Description 04/08/2020 Office Visit Family Medicine Bj Mario, DO [address] [facility] [place], [place] [address] [phone] 04/09/2020 Imaging Radiology 07/07/2020 Office Visit Cardiology Yvon Harris PA-C [address] [facility] [place] [address] [phone] Scheduled Orders Name Type Priority Associated Diagnoses Orde r Schedule VASC DUPLEX CAROTID BILAT Medical Imaging Routine Asymptomatic bilateral carotid artery stenosis Expected: 04/06/2020 (Approximate), Expires: 04/06/2021 Health Maintenance Due Date Last Done Comments Influenza Vaccine (FLU shot) (#1) 2019 03/20/2019, 03/14/2018, 03/23/2017, Additional history exists CKD GFR USE SMARTSET 26911 10/04/202004/06, 11/18/2019, 07/15/2019, Additional history exists Dexa Scan 10/30/2020 10/30/2013, 10/20, 08/24/2009, Additional history exists CKD PHOS USE SMARTSET 99388 11/17/202010/21, 07/15/2019, 08/13/2018, Additional history exists CKD HGB USE SMARTSET 74195 04/06/202104/06, 04/04/2019, 08/13/2018, Additional history exists DIABETES [...] Procedure Name Priority Date/Time Associated Diagnosis Comments EKG Routine 04/06/2020 9:27 AM EST Chronic ischemic heart disease documented in this encounter Results * LIPID PANEL WITH DIRECT LDL IF TRIGLYCERIDE IS ELEVATED (04/06/2020 10:20 AM EST) HOURS FASTING >8 HOURS hours [facility] TRIGLYCERIDES 159 Comment: Triglyceride Reference Ranges (mg/dL) <150 Acceptable 150-174 Borderline high 175-499 High >=500 Very high 0 - 174 mg/dL [facility] CHOLESTEROL 142 Comment: Total Cholesterol Reference Ranges (mg/dL) <200 Desirable 200-239 Borderline high >=240 High <200 mg/dL [facility] HDL 54 Comment: HDL Cholesterol Reference Ranges (mg/dL) >=60 High (Desirable) <50 Low (Undesirable) For Females <40 Low (Undesirable) For Males >49 mg/dL [facility] NON-HDL CHOLESTEROL 88 Comment: Non-HDL Cholesterol Reference Range (mg/dL) <100 Target level for high risk ASCVD patient <130 Optimal for general population 130-159 Near optimal for general population 160-189 Borderline High 190-219 High >=220 Very High 0 - 159 mg/dL [facility] LDL DIRECT(REFLEX) 67 Comment: LDL Cholesterol Reference Ranges (mg/dL) <70 Target level for high risk ASCVD patient <100 Optimal for general population 100-129 Near optimal for general population 130-159 Borderline high 160-189 High >=190 Very high LDL Cholesterol Reference Ranges (mg/dL) <70 Target level for high risk ASCVD patient <100 Optimal for general population 100-129 Near optimal for general population 130-159 Borderline high 160-189 High >=190 Very high 0 - 129 mg/dL [facility] Specimen Performing Organization Address City/[facility] Co de Phone Number [facility] [address] [place] [address] [facility] [address] [place] [address] * MAGNESIUM (04/06/2020 10:20 AM EST) MAGNESIUM 2.0 1.5 - 2.6 mg/dL [facility] NTER Specimen Performing Organization Address City/[facility]/ZIP Co de Phone Number [facility] [address] [place] [address] * TSH WITH FREE T4 IF INDICATED (04/06/2020 10:20 AM EST) TSH 2.53 0.27 - 4.2 uIU/mL [facility] FREE T4 REFLEXIVE NOT APPLICABLE 0.9 - 1.7 ng/dL [facility] Specimen [facility] [address] [facility] [place] [address] * COMPR METAB PANEL (04/06/2020 10:20 AM EST) BUN 17 6 - 20 mg/dL [facility] CREATININE 1.3(H) 0.5 - 1.0 mg/dL [facility] E GLOM FILT RATE 36.7(L)Comment:If patient is , multiply estimated GFR by 1.159. >60 [facility] SODIUM 141 135 - 146 mmol/L [facility] POTASSIUM 4.6 3.5 - 5.1 mmol/L [facility] CHLORIDE 104 98 - 107 mmol/L [facility] CO2 26 22 - 32 mmol/L [facility] ANION GAP 11 7 - 15 mmol/L [facility] GLUCOSE 103 70 - 120 mg/dL [facility] ALBUMIN 4.2 3.8 - 5.0 g/dL [facility] AST 26 10 - 35 U/L [facility] ALKALINE PHOSPHATASE 97 0 - 153 U/L [facility] BILIRUBIN, TOTAL 0.4 0 - 1.2 mg/dL [facility] CALCIUM 10.9(H) 8.4 - 10.2 mg/dL [facility] PROTEIN 7.2 6.0 - 8.3 g/dL [facility] ALT 14 10 - 35 U/L [facility] Specimen [facility] [address] [place] [address] * CBC (04/06/2020 10:20 AM EST) WBC 5.83 4.00 - 10.80 K/uL [facility] RBC 4.30 3.85 - 5.15 M/uL [facility] HGB 13.4 12.0 - 15.3 g/dL [facility] HCT 40.1 36.0 - 45.2 % [facility] MCV 93.3 81.5 - 97.5 fL [facility] MCH 31.2 27.0 - 34.0 pg [facility] MCHC 33.4 32.0 - 36.0 g/dL [facility] RDW 12.9 11.5 - 15.5 % [facility] OM PLATELET COUNT 279 140 - 400 K/uL [facility] PHL EB ROOM MPV 9.8 6.6 - 11.1 fL [facility] OM Specimen Performing Organization Address [facility] de Phone Number [facility] [address] [place] [address] * EKG (04/06/2020 9:27 AM EST) Specimen Procedure Note Thierno Marrero Jr., DO - 04/06/2020 9:27 AM EST REASON FOR STUDY: Routine CONCLUSIONS: Sinus rhythm with occasional Premature ventricular complexes and Prematureatrial complexes Low voltage QRS, consider pulmonary disease, pericardial effusion, ornormal variant Septal infarct , age undetermined Abnormal ECG When compared with ECG of 18-SEP-2018 08:41, Premature ventricular complexes are now Present Premature atrial complexes are now Present Septal infarct is now Present Ventricular Rate: 67 Atrial Rate: 67 MA Interval: 176 QRS Duration: 104 QT/QTc: 398/420 ms P-R-T Center [place]: 71 : 27 : 67 degrees Performing Organization Address City/[facility] Co de Phone Number [facility] documented in this encounter Visit Diagnoses Diagnosis Uncontrolled hypertension- Primary Unspecified essential hypertension Chronic ischemic heart disease Chronic ischemic heart [...] HTN, goal below 140/90 Unspecified essential hypertension PVC (premature ventricular contraction) Other premature beats documented in this encounter Advance Directives Documents on File Type Date Recorded Patient Photography Editor Expl anation Advance Directives and Living Will 08/13/2009 12:00 AM LIVING WILL Power of Diesel Engineer 08/13/2009 12:00 AM DOMONIQUE Madsen OF DIRECTOR SURGICAL DURABLE HEALTH POA AND HEALTH CARE TREATMENT INSTR Power of Diesel Engineer 08/13/2009 12:00 AM DOMONIQUE R OF DIRECTOR SURGICAL DURABLE HEALTH CARE POA Advanced Directive service a mike default Advanced Directive Advanced Directive Advanced Directive Advanced Directive Advanced Directive Advanced Directive Advanced Directive Advanced Directive Advanced Directive Advanced Directive Advanced Directive Advanced Directive 09/01/2016 8:20 AM Advanced Directive Advanced Directive Advanced Directive Advanced Directive Advanced Directive Advanced Directive Advanced Directive"
--- OUTSIDE RECORDS SUMMARY | 2023-01-22 22:57 | External Medical Summary | Summary of Care ---
Author Name Unknown Organization [place] [address] Care Team Providers Care Woodworking Machine Setter Name Role Phone Bj Mario DO Primary Care Provider [phone] Reason for Visit * Reason Onset Date Comments Test Results 04/07/2020 Encounter Details Date Type Department Care Team Description 04/07/2020 Telephone Cardiology, [facility] [address] [place] [address] Yvon Harris PA-C [address] [employer] [facility] [place] [address] [phone] Test Results Allergies No Known Active Allergiesdocumented [...] metoprolol succinate XL (TOPROL XL) 25 MG [id number]:Chron ic ischemic heart disease Take 0.5 Tabs [...] Telephone Encounter - Stanley Felix LPN - 04/07/2020 10:13 AM EST Called patient and informed of Yvon's message. Patient verbalized understanding. Patient stated shetakes Tums every other day or more as needed. Per Yvon, patient needs to cut back on the Tums and drink more water. Patient can have calcium checked again in a week or two. Lab order placed. Patient aware. ----- Message from Yvon Harris PA-C sent at 04/07/2020 10:05 AM EST ----- Thyroid is normal Magnesium is normal. Lipids look great. Stable renal dysfunction Mildly elevated calcium. ? Taking calcium supplement. Check ionized calcium. documented in this encounter Plan of Treatment Upcoming Encounters Date Type Specialty Care Team Description 04/08/2020 Office Visit Family Medicine Bj Mario, DO [address] [place] [address] [phone] 04/09/2020 Imaging Radiology 07/07/2020 Office Visit Cardiology Yvon Harris PA-C [address] [facility] [place] [address] [phone] Scheduled Orders Name Type Priority Associated Diagnoses Orde r Schedule CALCIUM, IONIZED Lab Routine Chronic ischemic heart disease Expected: 04/14/2020 (Approximate), Expires: 04/07/2021 Health Maintenance Due Date Last Done Comments Influenza Vaccine (FLU shot) (#1) 2019 03/20/2019, 03/14/2018, 03/23/2017, Additional history exists CKD GFR USE SMARTSET 08463 10/04/202004/06, 11/18/2019, 07/15/2019, Additional history exists Dexa Scan 10/30/2020 10/30/2013, 10/20, 08/24/2009, Additional history exists CKD PHOS USE SMARTSET 53087 11/17/202010/21, 07/15/2019, 08/13/2018, Additional history exists CKD HGB USE SMARTSET 83103 04/06/202104/06, 04/04/2019, 08/13/2018, Additional history exists DIABETES [...] Documents on File Type Date Recorded Patient Payroll Services Analyst Expl anation Advance Directives and Living Will 08/13/2009 12:00 AM LIVING WILL Power of Purse Framer 08/13/2009 12:00 AM DOMONIQUE R OF HEALTH TECHNICIAN DURABLE HEALTH POA AND HEALTH CARE TREATMENT INSTR Power of Purse Framer 08/13/2009 12:00 AM DOMONIQUE R OF HEALTH TECHNICIAN DURABLE HEALTH CARE POA Advanced Directive service a mike default Advanced Directive Advanced Directive Advanced Directive Advanced Directive Advanced Directive Advanced Directive Advanced Directive Advanced Directive Advanced Directive Advanced Directive Advanced Directive Advanced Directive 09/01/2016 8:20 AM Advanced Directive Advanced Directive Advanced Directive Advanced Directive Advanced Directive Advanced Directive Advanced Directive
--- OUTSIDE RECORDS SUMMARY | 2023-01-22 22:57 | External Medical Summary | Summary of Care ---
Author Name Unknown Organization [place] [address] Care Team Providers Care Marketing Database Consultant Name Role Phone Bj Mario Primary Care Provider [phone] Encounter Details Date Type Department Care Team Description 09/24/2019 Telemedicine General Internal Medicine [facility] [address] [place] [address] Rojas Quesada III, MD [address] [place] [address] [phone] 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)* Allergies No Known Allergiesdocumented as of this encounter (statuses as of 10/08/2019) Medications Medication Sig Dispensed Refills Start Date [...] metoprolol succinate XL (TOPROL XL) 25 MG [id number]:Chroni c ischemic heart disease Take 0.5 Tabs [...] as of this encounter (statuses as of 10/08/2019) Active Problems Problem Noted Date Benign hypertension with CKD (chronic ki dney disease) stage III 09/06/2017 History of deep vein thrombosis (DVT) of lower extremity 09/08/2016 Status post insertion of drug eluting co ronary artery stent 04/07/2015 Overview: 2009, DUS placed in the mid RCA at [facility] Asymptomatic bilateral carotid artery st enosis 06/10/2014 Raynaud phenomenon 06/13/2011 Knee joint replacement status 01/13/2011 Overview: 2014, right Dr Ricardo [facility] 2011: left Dr Priya Ricardo [facility] Dyslipidemia, goal LDL below 70 09/21/19 11 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 neurogenic claudication 02/17/2010 Vitamin D deficiency 10/13/2009 Chronic ischemic heart disease 0 S/P angioplasty with stent 06/30/2009 Overview: 07/01/2009 DUS in the RCA at [facility] Non-toxic multinodular goiter 04/21/2009 Overview: seen on [...] as of this encounter (statuses as of 10/08/2019) Resolved Problems Problem Noted Date Resolved Date [...] as of this encounter (statuses as of 10/08/2019) Immunizations Name Administration Dates Next Due Pneumococcal [...] AM EDT documented as of this encounter Progress Notes * Sangita FERREIRA, Rojas Willis MD - 09/24/2019 9:42 AM EDT After connecting to the patient via telephone, the patient was identified by name and date of . Patient was then informed that this was a telephone call only visit. The patient agreed to participate. Visit Disposition: Routine follow-up Follow up hypertension chronic kidney disease shoulder pain that she was seen for has resolved is painting some did some planting no exertional chest pain does have some dyspnea on exertion which might be slightly worsening but she just slows down no leg cramps no swelling no exertional chest pain has not taken any nitroglycerin will need labs 3 months these are ordered shingles vaccine litzylanette will check with her pharmacy call if problems Total call duration was 8 minutes. Okay if you could give me or full name please okay and year at date of okay and this is a telephone call visit IU okay to proceed with okay that is all that jump through the who stuff so how you doing with documented in this encounter Plan of Treatment Upcoming Encounters Date Type Specialty Care Team Description 02/10/2020 Office Visit Family Medicine Bj Mario, DO [address] [place] [address] [phone] 04/06/2020 Office Visit Cardiology Yvon Harris PA-C [address] [facility] [place] [address] [phone] Scheduled Orders Name Type Priority Associated Diagnoses Orde r Schedule RENAL FUNCTION PANEL Lab Routine 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) Expected: 09/24/2019 (Approximate), Expires: 09/23/2020 Health Maintenance Due Date Last Done Comments Zoster Vaccines (2 of 3) 08/06/2008 06/11/2008 CKD GFR USE SMARTSET 71904 01/13/202007/15, 03/20/2019, 08/13/2018, Additional history exists CKD HGB USE SMARTSET 98222 04/04/202004/04, 08/13/2018, 02/14/2018, Additional history exists CKD PHOS USE SMARTSET 88892 07/15/202006/23, 08/13/2018, 01/09/2017, Additional history exists DXA-SCREENING [...] IV, or unspecified documented in this encounter Advance Directives Documents on File Type Date Recorded Patient Fire Protection Inspector Expl anation Advance Directives and Living Will 08/13/2009 12:00 AM LIVING WILL Power of Capsule Filling Machine Operator 08/13/2009 12:00 AM DOMONIQUE R OF REHABILITATION SERVICES COUNSELOR DURABLE HEALTH POA AND HEALTH CARE TREATMENT INSTR Power of Capsule Filling Machine Operator 08/13/2009 12:00 AM DOMONIQUE R OF REHABILITATION SERVICES COUNSELOR DURABLE HEALTH CARE POA Advanced Directive service a mike default Advanced Directive Advanced Directive Advanced Directive Advanced Directive Advanced Directive Advanced Directive Advanced Directive Advanced Directive Advanced Directive Advanced Directive Advanced Directive Advanced Directive 09/01/2016 8:20 AM Advanced Directive Advanced Directive
--- OUTSIDE RECORDS SUMMARY | 2023-01-22 22:57 | External Medical Summary ---
Author Name Unknown Address [facility] [address] Phone Organization K01:[place] [address] [address] [place] [id number] Laboratory Report Ordering Provider Test Date Status NURYS RUCKERO 04/06/2020 10:20:00 Final Observation Date Value Abnormality Reference (Units ) Status Magnesium 04/06/2020 21:23 2.0 1.5-2.6 (mg/d L) Final Performing Location [address] [address]
--- OUTSIDE RECORDS SUMMARY | 2023-01-22 22:57 | External Medical Summary ---
Author Name Unknown Address [address] [place] [address] Phone Organization K09:[facility] [address] [place] [address] Laboratory Report Ordering Provider Test Date Status JENN GORDILLO III 11/18/2019 09:19:00 Final Observation Date Value Abnormality Reference (Units ) Status BUN 11/18/2019 10:50 14 6-20 (mg/dL) Final Creatinine 11/18/2019 10:50 1.2 Above high normal 0.5- 1.0 (mg/dL) Final E Glom Filt Rate 11/18/2019 10:50 39.9 Below low normal >60 Final Performing Location [facility] [place] [address] [place] [address]
--- OUTSIDE RECORDS SUMMARY | 2023-01-22 22:57 | External Medical Summary ---
Author Name Unknown Address [facility] [place] [address] Phone Organization K01:[place] [address] [place] [id number] Laboratory Report Ordering Provider Test Date Status SRINI RUCKER 04/06/2020 10:20:00 Final Observation Date Value Abnormality Reference (Units ) Status TSH 04/06/2020 22:25 2.53 0.27-4.2 (uIU /mL) Final T4, Free 04/06/2020 22:25 NOT APPLICABLE 0.9-1.7 (ng/dL) Final Performing Location [place] [address] [address] [facility] [address]
--- OUTSIDE RECORDS SUMMARY | 2023-01-22 22:57 | External Medical Summary | Summary of Care ---
Author Name Unknown Organization [place] [address] Care Team Providers Care 911 Dispatcher Name Role Phone Nhi Florian DO Primary Care Provider [phone] Reason for Visit * Reason Comments eRx-Medication Refill Encounter Details Date Type Department Care Team Description 02/11/2020 Refill Family Practice [facility] [address] [place] [address] Nhi Florian DO 200 [facility] [place] [address] [phone] Restless legs syndrome; Dyslipidemia, goal LDL below 70 Allergies No Known Active Allergiesdocumented as of this encounter (statuses as of 02/12/2020) Medications Medication Sig Dispensed Refills Start Date [...] Pain. 0 Active lisinopril (PRINIVIL) 10 MG TabletIndications: 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),Edema Take 1 Tab by mouth daily. 90 Tab 3 02/05/2019 Active cyclobenzaprine (FLEXERIL) 5 MG TabletIndications: Spasm [...] metoprolol succinate XL (TOPROL XL) 25 MG [id number]:Ch ronic ischemic heart disease Take 0.5 Tabs [...] once daily 90 Tab 1 02/12/2020 Active rOPINIRole (REQUIP) 0.25 MG TabletIndications: Restless legs syndrome Take 1 Tab by mouth at bedtime. 90 Tab 3 02/05/2019 02/12/2020 Discontinued rosuvastatin (CRESTOR) 20 MG TabletIndications: Dyslipidemia, goal LDL below 70 take 1 tablet by mouth once daily 90 Tab 1 08/12/2019 02/12/2020 Discontinued documented as of this encounter (statuses as of 02/12/2020) Active Problems Problem Noted Date Benign hypertension [...] as of this encounter (statuses as of 02/12/2020) Resolved Problems Problem Noted Date Resolved Date [...] as of this encounter (statuses as of 02/12/2020) Immunizations Name Administration Dates Next Due Pneumococcal [...] Miscellaneous Notes * Telephone Encounter - Nhi Florian, - 02/12/2020 1:27 PM EDT Signed Prescriptions: Disp Refills rOPINIRole HCl 0.25 MG Oral Tablet (REQUIP)90 Tab 3 Sig: take 1 tablet by mouth at bedtime Authorizing Provider: NHI FLORIAN Rosuvastatin Calcium 20 MG Oral Tablet (CR*90 Tab 1 Sig: take 1 tablet by mouth once daily Authorizing Provider: NHI FLORIAN Ordering User: CAROLYN CHOU * [facility] 12[facility]13 PM EDT Pending Prescriptions: Disp Refills rOPINIRole HCl 0.25 MG Oral Tablet (REQUIP)90 Tab 3 Sig: take 1 tablet by mouth at bedtime Signed Prescriptions: Disp Refills Rosuvastatin Calcium 20 MG Oral Tablet (CR*90 Tab 1 Sig: take 1 tablet by mouth once daily Authorizing Provider: NHI FLORIAN Ordering User: CAROLYN CHOU * Telephone Encounter - Carolyn Chou [facility] - 02/12/2020 12:13 PM EDT Refill pharmacists currently not authorized to approve refills for this class of medication per refill protocol. Please approve if appropriate. Thank you, Carolyn Chou, PharmD. Clinical Pharmacist Pharmacy Refill Call Center 02/12/2020, 12:13 PM Pending Prescriptions: Disp Refills rOPINIRole HCl 0.25 MG Oral Tablet (REQUIP)90 Tab 3 Sig: take 1 tablet by mouth at bedtime Signed Prescriptions: Disp Refills Rosuvastatin Calcium 20 MG Oral Tablet (CR*90 Tab 1 Sig: take 1 tablet by mouth once daily Authorizing Provider: NHI FLORIAN Ordering User: CAROLYN CHOU Last Office/Telemedicine Visit: 09/03/2019 Next Office Visit: No Future Appointments If no future appointments scheduled, and last appointment is greater than a year ago, please schedule patient for a follow-up appointment Last date the medication was ordered: 02/05/19 Pharmacy: [id number] [address] [facility] Is this request for a controlled substance?No Urine Drug Screen:No results found for this or any previous visit. Patient Phone Numbers Labs: Lab Results Component Value Date/Time CREAT 1.2 (H) 11/18/2019 09:19 AM POTASSIUM 4.5 11/18/2019 09:19 AM TSH 2.29 04/04/2019 10:11 AM LDLCALC 59 04/04/2019 10:11 AM LDLDIRECT 92 06/13/2011 10:52 AM ALT 8 (L) 02/14/2018 09:47 AM documented in this encounter Plan of Treatment Upcoming Encounters Date Type Specialty Care Team Description 04/06/2020 Office Visit Cardiology Yvon Harris PA-C [address] [facility] [place] [address] [phone] Health Maintenance Due Date Last Done Comments Zoster Vaccines (2 of 3) 08/06/2008 06/11/2008 Influenza Vaccine (FLU shot) (#1) 2019 03/20/2019, 03/14/2018, 03/23/2017, Additional history exists CKD HGB USE SMARTSET 42830 04/04/202004/04, 08/13/2018, 02/14/2018, Additional history exists CKD GFR USE SMARTSET 09598 05/19/202011/17, 07/15/2019, 03/20/2019, Additional history exists DXA-SCREENING EVERY 7 YRS-USE SMARTSET# 3348 TO ORDER 10/30/2020 10/30/2013, 10/30/2013, 08/24/2009, Additional history exists CKD PHOS USE SMARTSET 88523 11/17/2020/01/2020, 07/15/2019, 08/13/2018, Additional history exists DIABETES SCREEN [...] Documents on File Type Date Recorded Patient Annual Campaign Manager Expl anation Advance Directives and Living Will 08/13/2009 12:00 AM LIVING WILL Power of Grades 1 Thru 6 Visiting Teacher 08/13/2009 12:00 AM DOMONIQUE R OF MAIL CENSOR DURABLE HEALTH POA AND HEALTH CARE TREATMENT INSTR Power of Grades 1 Thru 6 Visiting Teacher 08/13/2009 12:00 AM DOMONIQUE R OF MAIL CENSOR DURABLE HEALTH CARE POA Advanced Directive service a mike default Advanced Directive Advanced Directive Advanced Directive Advanced Directive Advanced Directive Advanced Directive Advanced Directive Advanced Directive Advanced Directive Advanced Directive Advanced Directive Advanced Directive 09/01/2016 8:20 AM Advanced Directive Advanced Directive
--- OUTSIDE RECORDS SUMMARY | 2023-01-22 22:57 | External Medical Summary ---
Author Name Unknown Address [address] [facility] [place] [address] Phone Organization K0G:[facility] [employer] [address] [place] [address] Laboratory Report Ordering Provider Test Date Status SRINI RUCKER 04/06/2020 10:20:00 Final Observation Date Value Abnormality Reference (Units ) Status BUN 04/06/2020 12:29 17 6-20 (mg/dL) Final Creatinine 04/06/2020 12:29 1.3 Above high normal 0.5- 1.0 (mg/dL) Final E Glom Filt Rate 04/06/2020 12:29 36.7 Below low normal >60 Final Performing Location [facility] [employer] [address] [facility] [place] [address]
--- OUTSIDE RECORDS SUMMARY | 2023-01-22 22:57 | External Medical Summary | Summary of Care ---
Author Name Unknown Organization [place] [address] Care Team Providers Care Pilot Fuel Engineer Name Role Phone Bj Mario DO Primary Care Provider [phone] Reason for Visit * Reason Comments eRx-Medication Refill Encounter Details Date Type Department Care Team Description 04/07/2020 Refill Family Practice [facility] [address] [place] [address] Bj Mario DO [address] [place] [address] [phone] Gastroesophageal reflux disease without esophagitis Allergies No Known Active Allergiesdocumented as of [...] encounter Miscellaneous Notes * Telephone Encounter - Brandt Chambers [facility] - 04/09/2020 10:41 AM EST Refused Prescriptions: Disp Refills Famotidine 20 MG Oral Tablet (PEPCID) 60 Tab 11 Sig: take 1 tablet by mouth twice a dayRefused By: BRANDT CHAMBERSReason for Refusal: Duplicate RequestReason for Refusal Comment: Just approved within last week documented in this encounter Plan of Treatment Upcoming Encounters Date Type Specialty Care Team Description 07/07/2020 Office Visit Cardiology Yvon Harris PA-C [address] [facility] [place] [address] [phone] 10/06/2020 Office Visit Family Medicine Bj Mario, [address] [facility] [place] [address] [phone] Health Maintenance Due Date Last Done Comments CKD GFR USE SMARTSET 38893 10/04/202004/06, 11/18/2019, 07/15/2019, Additional history exists Dexa Scan 10/30/2020 10/30/2013, 10/20, 08/24/2009, Additional history exists CKD PHOS USE SMARTSET 06222 11/17/202010/21, 07/15/2019, 08/13/2018, Additional history exists CKD HGB USE SMARTSET 19786 04/06/202104/06, 04/04/2019, 08/13/2018, Additional history exists DIABETES [...] Documents on File Type Date Recorded Patient 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 Plasticoater Expl anation Advance Directives and Living Will 08/13/2009 12:00 AM LIVING WILL Power of Logistics Director 08/13/2009 12:00 AM DOMONIQUE R OF GAS TENDER DURABLE HEALTH POA AND HEALTH CARE TREATMENT INSTR Power of Logistics Director 08/13/2009 12:00 AM DOMONIQUE R OF GAS TENDER DURABLE HEALTH CARE POA Advanced Directive service a mike default Advanced Directive Advanced Directive Advanced Directive Advanced Directive Advanced Directive Advanced Directive Advanced Directive Advanced Directive Advanced Directive Advanced Directive Advanced Directive Advanced Directive 09/01/2016 8:20 AM Advanced Directive Advanced Directive Advanced Directive Advanced Directive Advanced Directive Advanced Directive Advanced Directive Advanced Directive
--- OUTSIDE RECORDS SUMMARY | 2023-01-22 22:57 | External Medical Summary | Summary of Care ---
Author Name Unknown Organization [facility] [place] [address] Care Team Providers Care Satellite Installation Technician Name Role Phone Bj Mario Primary Care Provider [phone] Reason for Visit * Reason Comments Scheduling 3 month return- F/u after Telemed appt Encounter Details Date Type Department Care Team Description 09/24/2019 Telephone Family Practice [facility] [address] [place] [address] Rojas Quesada III, MD [address] [facility] [place], [place] [id number] Scheduling (3 month return- F/u after Tele... Allergies No Known Allergiesdocumented as of this encounter (statuses as of 09/24/2019) Medications Medication Sig Dispensed Refills Start Date [...] metoprolol succinate XL (TOPROL XL) 25 MG [id number]:Chroni c ischemic heart disease Take 0.5 Tabs [...] as of this encounter (statuses as of 09/24/2019) Active Problems Problem Noted Date Benign hypertension with CKD (chronic ki dney disease) stage III 09/06/2017 History of deep vein thrombosis (DVT) of lower extremity 09/08/2016 Status post insertion of drug eluting co ronary artery stent 04/07/2015 Overview: 2009, DUS placed in the mid RCA at [facility] Asymptomatic bilateral carotid artery st enosis 06/10/2014 Raynaud phenomenon 06/13/2011 Knee joint replacement status 01/13/2011 Overview: 2014, right Dr Ricardo [facility] 2011: left Dr Priya Ricardo [facility] Dyslipidemia, goal LDL below 70 09/21/19 11 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 neurogenic claudication 02/17/2010 Vitamin D deficiency 10/13/2009 Chronic ischemic heart disease 0 S/P angioplasty with stent 06/30/2009 Overview: 07/01/2009 DUS in the RCA at [facility] Non-toxic multinodular goiter 04/21/2009 Overview: [...] as of this encounter (statuses as of 09/24/2019) Resolved Problems Problem Noted Date Resolved Date [...] as of this encounter (statuses as of 09/24/2019) Immunizations Name Administration Dates Next Due Pneumococcal [...] AM EDT documented as of this encounter Miscellaneous Notes * Telephone Encounter - Deanna Gaytan OSA - 09/24/2019 4:34 PM EDT Patient chose to schedule with Dr. Mario in January. * Telephone Encounter - Venice Satnos OSA - 09/24/2019 10:45 AM EDT Please call pt. To schedule a [address] Quesada documented in this encounter Plan of Treatment Upcoming Encounters Date Type Specialty Care Team Description 10/03/2019 Office Visit Cardiology Yvon Harris PA-C [address] [facility] [place] [address] [phone] 02/10/2020 Office Visit Family Medicine Bj Mario, DO [address] [place] [address] [phone] Health Maintenance Due Date Last Done Comments Zoster Vaccines (2 of 3) 08/06/2008 06/11/2008 CKD GFR USE SMARTSET 29315 01/13/202007/15, 03/20/2019, 08/13/2018, Additional history exists CKD HGB USE SMARTSET 78808 04/04/202004/04, 08/13/2018, 02/14/2018, Additional history exists CKD PHOS USE SMARTSET 14767 07/15/202006/23, 08/13/2018, 01/09/2017, Additional history exists DXA-SCREENING [...] Documents on File Type Date Recorded Patient Arc Furnace Operator Expl anation Advance Directives and Living Will 08/13/2009 12:00 AM LIVING WILL Power of Senior Test Analyst 08/13/2009 12:00 AM DOMONIQUE Madsen OF PLASTICS SPREADING MACHINE OPERATOR DURABLE HEALTH POA AND HEALTH CARE TREATMENT INSTR Power of Senior Test Analyst 08/13/2009 12:00 AM DOMONIQUE Madsen OF PLASTICS SPREADING MACHINE OPERATOR DURABLE HEALTH CARE POA Advanced Directive service a mike default Advanced Directive Advanced Directive Advanced Directive Advanced Directive Advanced Directive Advanced Directive Advanced Directive Advanced Directive Advanced Directive Advanced Directive Advanced Directive Advanced Directive 09/01/2016 8:20 AM Advanced Directive Advanced Directive
--- OUTSIDE RECORDS SUMMARY | 2023-01-22 22:58 | External Medical Summary | Summary of Care ---
Author Name Unknown Organization [place] [address] Care Team Providers Care Offset Label Rewinder Name Role Phone Bj Mario Primary Care Provider [phone] Reason for Visit * Reason Comments Acute Encounter Details Date Type Department Care Team Description 06/21/2019 Office Visit Family Practice [facility] [address] [place] [address] Luiza Phipps PA-C [address] [facility] [place] [address] [place] [address] [phone] Bronchitis, complicated*; Acute maxillary sinusitis, recurrence not specified; 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); Chronic ischemic heart disease Allergies No Known Allergiesdocumented as of this encounter (statuses as of 06/21/2019) Medications Medication Sig Dispensed Refills Start Date End Date Status ASPIRIN 81 MG PO CHEW One pill by mouth once a day with food 100 5 08/06/2008 Active VITAMIN D 1000 UNIT PO CAPSIndications:Vitami n D deficiency 1 capsule daily 30 Cap 11 10/13/2009 Active TRAVATAN Z 0.004 % ophthalmic solution Instill 1 Drop into both eyes every evening. 0 07/29/2014 Active nitroglycerin (NITROSTAT) 0.4 MG SUBLIndications:Chroni c [...] at bedtime. 90 Tab 3 02/05/2019 Active rosuvastatin (CRESTOR) 20 MG TabletIndications:Dysl ipidemia, goal LDL below 70 Take 1 Tab by mouth daily. 90 Tab 1 02/05/2019 Active traMADol (ULTRAM) 50 MG Tablet Take 1 Tab by mouth daily as needed for Pain, Severe. 30 Tab 0 02/19/2019 Active cyclobenzaprine (FLEXERIL) 5 MG TabletIndications:Spas m [...] metoprolol succinate XL (TOPROL XL) 25 MG PP36Nvmexyxzzic:Chroni c ischemic heart disease Take 0.5 Tabs by mouth daily. 45 Tab 3 03/20/2019 Active cefdinir (OMNICEF) 300 MG CapsuleIndications:Bro nchitis, complicated,Acute maxillary sinusitis, recurrence not specified Take 1 Cap by mouth every 12 hours for 10 days. For 10 days. 20 Cap 0 06/21/2019 07/01/2019 Active predniSONE (DELTASONE) 10 MG TabletIndications:Bron chitis, complicated,Acute maxillary sinusitis, recurrence not specified Take 5 tabs for 2 days, 4 tabs for 2 days, 3 tabs for 2 days, 2 tabs for 2 days 1 tab for 2 days 30 Tab 0 06/21/2019 Active documented as of this encounter (statuses as of 06/21/2019) Active Problems Problem Noted Date Benign hypertension [...] as of this encounter (statuses as of 06/21/2019) Resolved Problems Problem Noted Date Resolved Date [...] as of this encounter (statuses as of 06/21/2019) Immunizations Name Administration Dates Next Due Pneumococcal [...] Used Alcohol Use Drinks/Week oz/Week Comments Yes occ Food Insecurity Answer Date Recorded Within the [...] file Travel History Travel Start Travel End documented as of this encounter Last Filed Vital Signs Vital Sign Reading Time Taken Comments Blood Pressure 134/74 06/21/2019 11:18 AM EST Pulse 74 06/21/2019 11:18 AM EST Temperature 36.4 C (97.5 F) 06/21/2019 11:[address] Respiratory Rate 18 06/21/2019 11:18 AM EST Oxygen Saturation 97% 06/21/2019 11:18 AM EST Inhaled Oxygen Concentration - - Weight 86.2 kg (190 lb 0.6 oz) 06/21/2019 11:18 AM EST Height - - Body Mass Index 34.76 05/27/2019 4:44 PM EST documented in this encounter Progress Notes * Luiza Phipps PA-C - 06/21/2019 6:01 PM EST SUBJECTIVE: Eugenia Hu is a 84 year old female. Chief Complaint Patient presents with Acute HPI: Patient is a 84 year old female who presents with ongoing respiratory symptoms for close to a month. She has right earache, headache, nasal congestion, pn drip, chest tightness, productive cough, wheezing. Patient Active Problem List Diagnosis Code Advance [...] kidney disease) stage III (HCC) I12.9, N18.3 Current Outpatient Medications Medication Sig Dispense Refill cefdinir (OMNICEF) 300 MG Capsule Take 1 Cap by mouth every 12 hours for 10 days. For 10 days. 20 Cap 0 predniSONE (DELTASONE) 10 MG Tablet Take 5 tabs for 2 days, 4 tabs for 2 days, 3 tabs for 2 days, 2 tabs for 2 days 1 tab for 2 days 30 Tab 0 cyclobenzaprine (FLEXERIL) 5 MG Tablet Take 1 Tab by mouth 2 times a day as needed for Muscle spasms. 60 Tab 5 famotidine (PEPCID) 20 MG Tablet Take 1 Tab by mouth 2 times a day. 60 Tab 11 metoprolol succinate XL (TOPROL XL) 25 MG TB24 Take 0.5 Tabs by mouth daily. 45 Tab 3 traMADol (ULTRAM) 50 MG Tablet Take 1 Tab by mouth daily as needed for Pain, Severe. 30 Tab 0 lisinopril (PRINIVIL) 10 MG Tablet Take 1 Tab by mouth daily. 90 Tab 3 rOPINIRole (REQUIP) 0.25 MG Tablet Take 1 Tab by mouth at bedtime. 90 Tab 3 rosuvastatin (CRESTOR) 20 MG Tablet Take 1 Tab by mouth daily. 90 Tab 1 acetaminophen (TYLENOL EXTRA STRENGTH) 500 MG Tablet Take 500 mg by mouth every 6 hours as needed for Pain. nitroglycerin (NITROSTAT) 0.4 MG SUBL 1 every 5 min as needed with chest pain up to 3 doses in 15 minutes 25 Tab 11 TRAVATAN Z 0.004 % ophthalmic solution Instill 1 Drop into both eyes every evening. 0 VITAMIN D 1000 UNIT PO CAPS 1 capsule daily 30 Cap 11 ASPIRIN 81 MG PO CHEW One pill by mouth once a day with food 100 5 zoster vac recomb adjuvanted (SHINGRIX) 50 MCG/0.5ML injection Inject 0.5 mL into a large muscle now and repeat dose in 60 to 180 days. Please fax date this was given to our office. 1 Each 1 Review of patient's allergies indicates: No Known Allergies OBJECTIVE: BP 134/74 | Pulse 74 | Temp (Src) 97.5 (Tympanic) | Resp 18 | Wt 190 lbs .64 oz (86.202kg) | BMI 34.76 kg/m | BSA 1.94 m | SaO2 97% PHYSICAL EXAM: General: alert, well nourished, well developed, cooperative and ill looking Ears: External ears normal, Canals clear, R TM dull, L TM dull Nose: purulent rhinorrhea, mucosal edema, mucosal erythema Oropharynx: no exudate, lips, buccal mucosa, and tongue normal, mucous membranes are moist and milderythema Neck: supple, no adenopathy, no bruits, thyroid normal size, non-tender, without nodularity Heart: regular rate & rhythm, no murmurs and no gallops Lungs: chest symmetric with normal AP diameter, no chest deformities noted, no chest wall tenderness, coarse sounds heard, prolonged expiratory phase ASSESSMENT: J40 Bronchitis, complicated (primary encounter diagnosis) J01.00 Acute maxillary sinusitis, recurrence not specified I12.9,N18.3 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) I25.9 Chronic ischemic heart disease PLAN: Bronchitis, complicated (Primary) - XR CHEST 2 VIEWS - cefdinir (OMNICEF) 300 MG Capsule; Take 1 Cap by mouth every 12 hours for 10 days. For 10 days. - predniSONE (DELTASONE) 10 MG Tablet; Take 5 tabs for 2 days, 4 tabs for 2 days, 3 tabs for 2 days, 2 tabs for 2 days 1 tab for 2 days Acute maxillary sinusitis, recurrence not specified - cefdinir (OMNICEF) 300 MG Capsule; Take 1 Cap by mouth every 12 hours for 10 days. For 10 days. - predniSONE (DELTASONE) 10 MG Tablet; Take 5 tabs for 2 days, 4 tabs for 2 days, 3 tabs for 2 days, 2 tabs for 2 days 1 tab for 2 days 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) Chronic ischemic heart disease Follow up as needed. Luiza Phipps PA-C documented in this encounter Nursing Notes * Adrienne Mistry LPN - 06/21/2019 11:17 AM EST Pt presents today with complaints of chest congestion, sinus congestion, and right ear pain. documented in this encounter Miscellaneous Notes * Result QuickNote - Luiza Phipps PA-C - 06/21/2019 5:32 PM EST Please send a lab letter stating xray results normal. documented in this encounter Plan of Treatment Upcoming Encounters Date Type Specialty Care Team Description 09/23/2019 Office Visit Family Medicine Bj Mario, DO [address] [facility] [place] [address] [phone] 10/03/2019 Office Visit Cardiology Yvon Harris PA-C [address] [facility] [place] [address] [phone] Health Maintenance Due Date Last Done Comments Zoster Vaccines (2 of 3) 08/06/2008 06/11/2008 CKD PHOS USE SMARTSET 64181 08/14/201907/21, 01/09/2017, 04/11/2016, Additional history exists CKD GFR USE SMARTSET 29823 09/19/201903/20, 08/13/2018, 03/08/2018, Additional history exists CKD HGB USE SMARTSET 76963 04/04/202004/04, 08/13/2018, 02/14/2018, Additional history exists DXA-SCREENING EVERY 7 YRS-USE [...] Name Priority Date/Time Associated Diagnosis Comments XR CHEST 2 VIEWS STAT 06/21/2019 12:0 0 PM EST Bronchitis, complicated documented in this encounter Results * XR CHEST 2 VIEWS (06/21/2019 12:00 PM EST) Specimen Impressions Performed At IMPRESSION 1. No acute process. [facility] Narrative Performed At EXAM XR CHEST 2 VIEWS-06/21/2019 12:00 pm HISTORY persistent cough COMPARISON CHEST 1 VIEW dated 09/01/2016; CHEST 2 VIEWS AP OR PA AND LATERAL dated 06/23/2009 TECHNIQUE Frontal and lateral chest radiographs obtained. FINDINGS Stable cardiomediastinal silhouette. No focal consolidation. No pleural effusions or pneumothorax. A stable nodular focus in the right lower zone is likely a granuloma. Degenerative osseous changes. [facility] Procedure Note Interface, Rad In - 06/21/2019 5:09 PM EST EXAM XR CHEST 2 VIEWS-06/21/2019 12:00 pm HISTORY persistent cough COMPARISON CHEST 1 VIEW dated 09/01/2016; CHEST 2 VIEWS AP OR PA AND LATERAL date06/23/2009 TECHNIQUE Frontal and lateral chest radiographs obtained. FINDINGS Stable cardiomediastinal silhouette. No focal consolidation. No pleuraleffusions or pneumothorax. A stable nodular focus in the right lower zoneis likely a granuloma. Degenerative osseous changes. IMPRESSION IMPRESSION 1. No acute process. 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 I through stage IV, or unspecified Chronic ischemic heart disease Chronic ischemic heart disease, unspecified documented in this encounter Advance Directives Documents on File Type Date Recorded 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 Engine 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 Expl anation Advance Directives and Living Will 08/13/2009 12:00 AM LIVING WILL Power of Bistro Server 08/13/2009 12:00 AM DOMONIQUE R OF BUILDING MECHANIC DURABLE HEALTH POA AND HEALTH CARE TREATMENT INSTR Power of Bistro Server 08/13/2009 12:00 AM DOMONIQUE R OF BUILDING MECHANIC DURABLE HEALTH CARE POA Advanced Directive service a mike default Advanced Directive Advanced Directive Advanced Directive Advanced Directive Advanced Directive Advanced Directive Advanced Directive Advanced Directive Advanced Directive Advanced Directive Advanced Directive Advanced Directive 09/01/2016 8:20 AM Advanced Directive"
--- OUTSIDE RECORDS SUMMARY | 2023-01-22 22:58 | External Medical Summary | Summary of Care ---
Author Name Unknown Organization [place] [address] Care Team Providers Care Leaf Sucker Operator Name Role Phone Bj Mario DO Primary Care Provider [phone] Reason for Visit * Reason Comments Health Maintenance Encounter Details Date Type Department Care Team Description 07/11/2019 Telephone Family Practice [facility] [address] [place] [address] Bj Mario DO [address] [facility] [place] [address] [phone] Health Maintenance Allergies No Known Allergiesdocumented as of this encounter (statuses as of 07/11/2019) Medications Medication Sig Dispensed Refills Start Date End Date Status ASPIRIN 81 MG PO CHEW One pill by mouth once a day with food 100 5 08/06/2008 Active VITAMIN D 1000 UNIT PO CAPSIndications:Vitamin D deficiency 1 capsule daily 30 Cap 11 10/13/2009 Active TRAVATAN Z 0.004 % ophthalmic solution Instill 1 Drop into both eyes every evening. 0 07/29/2014 Active nitroglycerin (NITROSTAT) 0.4 MG SUBLIndications:Chronic ischemic heart disease 1 every 5 min as needed with chest pain up to 3 doses in 15 minutes 25 Tab 11 10/09/2017 Active acetaminophen (TYLENOL EXTRA STRENGTH) 500 MG Tablet Take 500 mg by mouth every 6 hours as needed for Pain. 0 Active lisinopril (PRINIVIL) 10 MG TabletIndications:Benig n hypertension with CKD (chronic kidney disease) stage III (HCC),Edema Take 1 Tab by mouth daily. 90 Tab 3 02/05/2019 Active rOPINIRole (REQUIP) 0.25 MG TabletIndications:Restl ess legs syndrome Take 1 Tab by mouth at bedtime. 90 Tab 3 02/05/2019 Active rosuvastatin (CRESTOR) 20 MG TabletIndications:Dysli pidemia, goal LDL below 70 Take 1 Tab by mouth daily. 90 Tab 1 02/05/2019 Active traMADol (ULTRAM) 50 MG Tablet Take 1 Tab by mouth daily as needed for Pain, Severe. 30 Tab 0 02/19/2019 Active cyclobenzaprine (FLEXERIL) 5 MG TabletIndications:Spasm of muscle Take 1 Tab by mouth 2 times a day as needed for Muscle spasms. 60 Tab 5 03/20/2019 Active famotidine (PEPCID) 20 MG TabletIndications:Gastr oesophageal reflux disease without esophagitis Take 1 Tab by mouth 2 times a day. 60 Tab 11 03/20/2019 Active zoster vac recomb adjuvanted (SHINGRIX) 50 MCG/0.5ML injection Inject 0.5 mL into a large muscle now and repeat dose in 60 to 180 days. Please fax date this was given to our office. 1 Each 1 03/20/2019 Active metoprolol succinate XL (TOPROL XL) 25 MG [id number]:Chronic ischemic heart disease Take 0.5 Tabs by mouth daily. 45 Tab 3 03/20/2019 Active predniSONE (DELTASONE) 10 MG TabletIndications:Bronc hitis, complicated,Acute maxillary sinusitis, recurrence not specified Take 5 tabs for 2 days, 4 tabs for 2 days, 3 tabs for 2 days, 2 tabs for 2 days 1 tab for 2 days 30 Tab 0 06/21/2019 Active documented as of this encounter (statuses as of 07/11/2019) Active Problems Problem Noted Date Benign hypertension [...] as of this encounter (statuses as of 07/11/2019) Resolved Problems Problem Noted Date Resolved Date [...] as of this encounter (statuses as of 07/11/2019) Immunizations Name Administration Dates Next Due Pneumococcal [...] Travel End documented as of this encounter Miscellaneous Notes * Telephone Encounter - Qi Gracia LPN - 07/11/2019 10:03 AM EST Patient contacted for Care Gaps Comprehensive Care Outreach. Last Office Visit: 06/21/2019 Next Office Visit: 09/23/2019 Scheduled Provider(s): Bj Mario, Health Maintenance Topic Date Due Zoster Vaccines (2 of 3) 08/06/2008 CKD PHOS USE SMARTSET 64820 08/14/2019 CKD GFR USE SMARTSET 10583 09/19/2019 CKD HGB USE SMARTSET 75986 04/04/2020 Outreach action taken: Appointments Scheduled:AWV documented in this encounter Plan of Treatment Upcoming Encounters Date Type Specialty Care Team Description 07/15/2019 Nurse Only [place], Nurse [facility] [address] [place] [address] [phone] 09/23/2019 Office Visit Family Medicine Bj Mario, [address] [facility] [place] [address] [phone] 10/03/2019 Office Visit Cardiology Yvon Harris PA-C [address] [facility] [place] [address] [phone] Health Maintenance Due Date Last Done Comments Zoster Vaccines (2 of 3) 08/06/2008 06/11/2008 CKD PHOS USE SMARTSET 91246 08/14/201907/21, 01/09/2017, 04/11/2016, Additional history exists CKD GFR USE SMARTSET 60525 09/19/201903/20, 08/13/2018, 03/08/2018, Additional history exists CKD HGB USE SMARTSET 59174 04/04/202004/04, 08/13/2018, 02/14/2018, Additional history exists DXA-SCREENING [...] Documents on File Type Date Recorded Patient Wind Site 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 Expl anation Advance Directives and Living Will 08/13/2009 12:00 AM LIVING WILL Power of Construction Trench Digger 08/13/2009 12:00 AM DOMONIQUE Madsen OF [employer] BLOOD TESTER DURABLE HEALTH POA AND HEALTH CARE TREATMENT INSTR Power of Construction Trench Digger 08/13/2009 12:00 AM DOMONIQUE Madsen OF [place] BLOOD TESTER DURABLE HEALTH CARE POA Advanced Directive service a mike default Advanced Directive Advanced Directive Advanced Directive Advanced Directive Advanced Directive Advanced Directive Advanced Directive Advanced Directive Advanced Directive Advanced Directive Advanced Directive Advanced Directive 09/01/2016 8:20 AM Advanced Directive
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
--- OUTSIDE RECORDS SUMMARY | 2023-01-22 22:58 | External Medical Summary | Summary of Care ---
Author Name Unknown Organization [place] [address] Care Team Providers Care Art Installer Name Role Phone Bj Mario Primary Care Provider [phone] Reason for Visit * Reason Comments Adult Annual Wellness Visit, Subsequent Visit Encounter Details Date Type Department Care Team Description 07/15/2019 Nurse Only [facility] [place] [address] [place] [address] [place], Nurse Annual Wellness [place] [address] [place] [id number] [phone] Adult Annual Wellness Visit, Subsequent Visit Allergies No Known Allergiesdocumented as of this encounter (statuses as of 07/15/2019) Medications Medication Sig Dispensed Refills Start Date [...] 0 07/29/2014 Active nitroglycerin (NITROSTAT) 0.4 MG SUBLIndications:Chr onic [...] 3 02/05/2019 Active rosuvastatin (CRESTOR) 20 MG TabletIndications:D yslipidemia, goal LDL below 70 Take 1 Tab by mouth daily. 90 Tab 1 02/05/2019 Active traMADol (ULTRAM) 50 MG Tablet Take 1 Tab by mouth daily as needed for Pain, Severe. 30 Tab 0 02/19/2019 Active cyclobenzaprine (FLEXERIL) 5 MG TabletIndications:S pasm [...] metoprolol succinate XL (TOPROL XL) 25 MG [id number]:Chr onic ischemic heart disease Take 0.5 Tabs by mouth daily. 45 Tab 3 03/20/2019 Active predniSONE (DELTASONE) 10 MG TabletIndications:B ronchitis, complicated,Acute maxillary sinusitis, recurrence not specified Take 5 tabs for 2 days, 4 tabs for 2 days, 3 tabs for 2 days, 2 tabs for 2 days 1 tab for 2 days 30 Tab 0 06/21/2019 07/15/2019 Discontinued (End of Procedure) documented as of this encounter (statuses as of 07/15/2019) Active Problems Problem Noted Date Benign hypertension [...] as of this encounter (statuses as of 07/15/2019) Resolved Problems Problem Noted Date Resolved Date [...] as of this encounter (statuses as of 07/15/2019) Immunizations Name Administration Dates Next Due Pneumococcal [...] Sign Reading Time Taken Comments Blood Pressure 128/70 07/15/2019 10:31 AM EST Pulse - - Temperature - - Respiratory Rate - - Oxygen Saturation - - Inhaled Oxygen Concentration - - Weight 87.9 kg (193 lb 12.8 oz) 020 10:31 AM EST Height 157.5 cm (5' 2") 07/15/2019 10:3 1 AM EST Body Mass Index 35.45 07/15/2019 10:31 AM EST documented in this encounter Patient Instructions * Patient Instructions* Megan Soares RN - 07/15/2019 10:33 AM EST Preventing Falls: Are You At Risk of Falling? Ask for help to reduce risk of falling in your home. As you get older, you're not as steady on your feet as you once were. And you may have health problems you didn't have when you were younger. So, it's not surprising that older people are more likelyto trip and fall. Falling can be very serious. It can change your overall health and quality of life. That's why it's important to be aware of your own risk of falling. The dangers of falling Falls are one of the main causes of injury in people over age 65. An older person who falls may take longer to get better than a younger person. And, after a fall, an older person is more likely to have problems that don't go away. So, preventing falls can help you avoid serious health problems. Are you at risk of falling? Answer these questions to rate your level of risk. Are you a woman? Have you fallen or stumbled in the last year? Are you over age 65? Are you ever dizzy or lightheaded with standing? Do you have a hard time getting in and out of the bathtub or on and off the toilet? Do you lean on objects to help you get around? Or do you use a cane or walker? Do you have vision or hearing problems? For example, do you need new glasses or hearing aids? Do you have 2 or more long-lasting (chronic) medical conditions? Do you take 3 or more medicines? Have you felt depressed recently? Have you had more trouble with your memory in recent months? Are there hazards in your home that might cause you to fall, such as loose rugs or poor lighting? Do you have a pet that jumps on you or might trip you? Have you stopped getting regular exercise? Do you have diabetes? Do you have a neurologic disease, such as Parkinson or Alzheimer disease? Do you drink alcohol? Do you wear athletic shoes or slippers, or go barefoot at home? You can help prevent falls If you answered "yes" to any of the above questions, take steps to reduce your risk of a fall. Monitoring health conditions and keeping walkways in your home free of clutter are just two ways. Changing is sometimes easier said than done. But keep in mind that even small changes can make you less likely to fall. The fear of falling It's normal to be scared of falling, especially if you've fallen before. But being afraid can actually make you more likely to fall. This is because: Fear might cause you to become less active. Being less active can lead to a loss of strength andbalance. Fear can lead to isolation from others, depression, or the use of more medicines or alcohol. Andall these things make falling even more likely. To break the cycle, learn more about ways to avoid falling. As you take control, you may find yourself feeling less afraid. Date Last Reviewed: 09/19/201619993837-3062 [employer] [place] [address], [place] [address]. All rights reserved. This information is not intended as a substitute for professional medical care. Always follow your healthcare professional's instructions. Exercises to Prevent Falls Certain types of exercises may help make you less likely to fall. Try the ones below. Or do other exercises that your healthcare provider suggests. Depending on your health, you may need to start slowly. Don't let that stop you. Even small amounts of exercise can help you. Be sure to talk to your healthcare provider before starting any exercise program. Improve balance Many types of exercise can help improve balance.Dwight chi and yoga are good examples. Here's another one to try. You can do [...] repeat 5 times. Switch legs. Build strength "Resistance" exercises help build strength. You can do them without equipment. Or you can use weights, elastic bands, or special machines. One such exercise is called the biceps curl. You can hold a 1-pound weight or even a can of soup. Do this exercise at least 3 times a week. Strive for every day. Sit up straight in a chair. Keep your elbow close to your body and your wrist straight. Bend your arm, moving your handup to your shoulder. Then slowly lower your arm. Repeat 5 times. Switch to the other arm. Build your staying power Aerobic exercises make your heart andlungs stronger so you can keep moving longer. Walking and swimming are two of the best types of exercises you can do. Using a stationary bike is great, too. Find an aerobic exercise that you enjoy. Start slowly and build up. Even5 minutes is helpful. Aim fora goal [id number], at [id number] a week. You don't have to [id number] in1 session.Break it up and walk a little throughout the day. More helpful tips Start easy. Slowly work up to doing more. Talk with your healthcareprovider about the best exercises for you. Call senior centers or healthclubs about exercise programs. If needed, have a family member watch you walk every so often to check your stability. Exercise with a friend. Choose an activity you both enjoy. Consider dwight chi or yoga to strengthen your balance. Try exercises that you can do anytime, anywhere. Here are2 examples. Have someone with you when you first try these: ? Practice walking by placing1 foot right in front of the other. ? Stand up and sit down10 times. Repeat this throughout the day. Date Last Reviewed: 09/19/201619994255-8047 [employer]. [address] [place] [address], [place] [address]. All rights reserved. This information is not intended as a substitute for professional medical care. Always follow your healthcare professional's instructions. ` [facility] [address] [id number] 07/15/2019 Eugenia Hu [address] [place] [id number] ADULT WELLNESS SELF MANAGEMENT GOALS Purpose: To promote health, disease detection and coordination of screening and preventative services. This self-management plan gives you information and tools to help you take charge of your healthwith the assistance of your primary care provider. Your Reports: CHOLESTEROL Your most recent LDL cholesterol (bad cholesterol) results are: LDL (CALCULATED)(mg/dL) Apollo Dt/Tm Resulted Value Status 04/04/19 10:11A 04/04/19 59 FINAL LDL DIRECT(REFLEX)(mg/dL) Apollo Dt/Tm Resulted Value Status 04/04/19 10:11A 04/04/19 FINAL Value: NOT APPLICABLE LDL (CALCULATED)(mg/dL) Apollo Dt/Tm Resulted Value Status 02/14/18 9:47A 02/14/18 55 FINAL This should be checked at least yearly. The above values should be LESS than 100 (LESS than 70, if you have heart disease). If these are consistently elevated then your chance for heart attack and stroke increases yearly. BLOOD PRESSURE Your most recent Blood Pressure readings are: BP Readings from Last 3 Encounters: 07/15/19 128/70 06/21/19 134/74 05/27/19 132/70 High blood pressure increases the risk of heart disease and strokes. The above values should be LESS than 140/80. Notify your physician if you check your blood pressure at home and it is consistentlyhigher than this. Flu Shot: Patients should receive a Flu shot every year to help prevent influenza. Pneumovax: This vaccine is given to help prevent pneumonia. You should receive this injection at least once in your lifetime. Medications: Take all your medications as prescribed by your healthcare provider to help prevent heart and kidney disease. Always let your doctor know of all [id number] medications that you aretaking Dental Hygiene: Good oral health is important for all patients. Have a dental exam and teeth cleaning at least yearly. Eye Exam: It is very important to see an eye customer care team coach for an eye exam once a year to check for early signs of blood vessel damage. Lead a healthy lifestyle: Disease: Any disease, illness or chronic condition which causes you to change the way you eat, or makes it hard for you to eat, puts your nutritional health at risk. Four out of five adults have chronic diseases that are affected by diet. Confusion or memory loss that keeps getting worse is estimated to affect one out of five or more of older adults. This can make it hard to remember what, when or if you've eaten. Feeling sad, or depressed, which happens to about on in eight older adults, can cause big changes in appetite, digestion, energy level, weight and well-being. Eating Poorly: Eating too little and eating too much both lead to poor health. Eating the same foods day after dayor not eating fruit, vegetables, and milk products daily will also cause poor nutritional health. One in five adults, skip meals daily. Only 13% of adults eat the minimum amount of fruit and vegetables needed. One in four older adults drink too much alcohol. Many health problems become worse if you drink more than one or two alcoholic beverages per day. Tooth Loss/Mouth Pain: A healthy mouth, teeth and gums are needed to eat. Missing, loose or rotten teeth or dentures whichdon't fit well or cause mouth sores make it hard to eat. Economic Hardship: As many as 40% of older Americans have incomes of less than $6,000 per year. Having less--or choosing to spend less--than $25.00 per week for food makes it very hard to get the foods you need to stayhealthy. Reduced Social Contact: One-third of all older people live alone. Being with people daily has a positive effect on morale, well-being and eating. Multiple Medicines: Many older Americans must take medicines for health problems. Almost half of older Americans take multiple medicines daily. Growing old may change the way we respond to drugs. The more medicines you take, the greater the chance for side effects such as increased or decreased appetite, change in taste, constipation, weakness, drowsiness, diarrhea, nausea, and others. Vitamins or minerals when taken in large doses act like drugs and can cause harm. Alert your doctor to everything you take. Involuntary Weight Loss/Gain: Losing or gaining a lot of weight when you ar not trying to do so is an important warning sign thatmust not be ignored. Being overweight or underweight also increases your chance of poor health. Needs Assistance In Self Care: Although most older people are able to eat, one of every five have trouble walking, shopping, buying and cooking food, especially as they get older. Elder Years Above Age 80: Most older people lead full and productive lives. But as age increases, risk of frailty and health problems increase. Checking your nutritional health regularly makes good sense. Encouragements: Exercise- Aim for 20-30 minutes of physical activity most days of the week. This helps you to lose weight and keep your heart in condition. Stop Smoking- Tobacco use causes damage to the inner lining of blood vessels. Work with your primary care provider and set a quit date. Regular office visits Patients should see their doctor on a regular basis, update their treatment plan, and receive preventive care. Your Personal Goals: What goal(s) do you feel like you would like to work on the most? Keep regular provider office visits Hi Ms. Hu, As your primary care [...] list that summarizes your electronic health record: Chronic Medical Conditions: @CHRONICDISEASE@ Current Medication List: (as of Last Office Visit: No Previous Office Visits) Current Outpatient Medications Medication Sig Dispense Refill cyclobenzaprine (FLEXERIL) 5 MG Tablet Take 1 [...] given to our office. 1 Each 1 Current List of Allergies: (as of Last Office Visit: No Previous Office Visits) Review of patient's allergies indicates: No Known Allergies Most Recent Lab Results: Results for orders placed or performed in visit on 04/04/19 TSH WITH FREE T4 IF INDICATED Result Value Ref Range TSH 2.29 0.27 - 4.2 uIU/mL FREE T4 REFLEXIVE NOT APPLICABLE 0.9 - 1.7 ng/dL LIPID PANEL WITH DIRECT LDL IF TRIGLYCERIDE IS ELEVATED Result Value Ref Range HOURS FASTING >8 HOURS hours TRIGLYCERIDES 110 0 - 174 mg/dL CHOLESTEROL 137 <200 mg/dL HDL 56 >49 mg/dL NON-HDL CHOLESTEROL 81 0 - 159 mg/dL LDL (CALCULATED) 59 0 - 129 mg/dL LDL DIRECT(REFLEX) NOT APPLICABLE 0 - 129 mg/dL CBC Result Value Ref Range WBC 6.93 4.00 - 10.80 K/uL RBC 4.13 3.85 - 5.15 M/uL HGB 12.5 12.0 - 15.3 g/dL HCT 38.9 36.0 - 45.2 % MCV 94.2 81.5 - 97.5 fL MCH 30.3 27.0 - 34.0 pg MCHC 32.1 32.0 - 36.0 g/dL RDW 13.1 11.5 - 15.5 % PLATELET COUNT 273 140 - 400 K/uL MPV 9.6 6.6 - 11.1 fL Sincerely, Bj Mario, DO 07/15/2019 [employer] Calendar (as of Last Office Visit: No Previous Office Visits) Check off each item when done! @Gold Lasso(,T,,Due Now or Overdue)@ @HMHEALTHCAL(T+1,T+90,,Due in 3 Months)@ @HMHEALTHCAL(T+91,T+180,,Due in 6 Months)@ @HMHEALTHCAL(T+181,,,Due This Year or Later)@ As you look over the recommended services, be sure to check with your insurance company to determine what's covered. [facility] is a great tool that helps you review your medical record online, including test results, doctor notes and your health summary. You can also schedule appointments with me and other members of your care team, request prescription refills and ask for advice related to your medical conditions at [employer]. documented in this encounter Progress Notes * Megan Soares, RN - 07/15/2019 10:12 AM EST I had the privilege of seeing this patient for an Annual Wellness Exam today. Here is a list [facility] as well as the results of the CDIS report. -Shingrix due. Sent to pharmacy back in February. Pt will get on wait list. -Some labs due for CKD in the next couple of months. Ordered. Pt will complete today since she is here. -Otherwise HM up to date -Pt feels well and has no concerns. She lives with her daughter who helps with meals and things around the house. Pt is able to do the things she wants and feels she is doing well. -Basic fall precautions discussed. Handouts given. AD8 Dementia Screening Interview Person answering questions: [...] Annual Wellness Visit: Eugenia Hu is a 84 year old female who presents for an Adult Annual Wellness Visit. Depression Screening: Did the patient complete the screening questionnaire for Depression: Yes. Completed in May Is the patient's total score for Depression 15 or greater? No, no further intervention needed, unless requested by patient.. Did the patient answer positively to the suicide question? No, no further intervention needed, unless requested by patient.. In general, compared to other people your age, what would you say that your health is? Good Ht Readings from Last 1 Encounters: 05/27/19 (!) 1.575 m (5' 2") Wt Readings from Last 1 Encounters: 06/21/19 86.2 kg (190 lb 0.6 oz) BMI: BMI Greater than 30 BMI: There is no height or weight on file. 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, left 1992 HTN, goal below 140/90 Knee joint replacement status 01/13/[address] Priya Ricardo [facility] Knee joint replacement status 12/15/2013 right [facility] Macular degeneration Ugo Simon MD Menopause 1974 Need for prophylactic hormone replacement therapy (postmenopausal) 1974 Non-toxic multinodular goiter 04/2009 seen on US, repeat -10/2009 Other screening mammogram 10/24/03 Birad Code 2 Other specified glaucoma both eyes, Paul Simon MD, drops used, timolol S/P angioplasty with stent 06/30/09 [facility] Status post insertion of drug eluting coronary artery stent 04/07/20152009, DUS placed in the mid RCA at [facility] Vitamin D deficiency 10/13/2009 Past Surgical History: Procedure Laterality Date ARTHROPLASTY KNEE TOTAL Left 01/13/2011 Left, Dr Priya Ricardo [facility] ARTHROPLASTY KNEE TOTAL Right 12/16/13 Right, Dr Priya Ricardo [facility] CARDIAC CATH SCANNED RESULT 06/30/2009 DUS placed in right coronary, [facility] CARPAL TUNNEL SURGERY Bilateral 2015 bilateral COLONOSCOPY 03/22/2006 normal repeat in 2016 COLONOSCOPY, DIAGNOSTIC (RECTUM) 09/01/2016 diverticulosis/COLONOSCOPY FLEXIBLE PROXIMAL DIAGNOSTIC performed by Kaylie Ford MD at ENDOSCOPY [facility] COLONOSCOPY, DIAGNOSTIC (RECTUM) 10/09/2018 diverticulosis/[facility] COLONOSCOPY, GI REFERRAL OP 03/22/2005 diverticulosis, repeat in 10 years for surveillance reasons COLORECTAL CANCER SCREEN;W/FLE 1999 normal, Dr Estrella DENTAL SURGERY PROCEDURE NEC 1970 Dental Surgery Procedure tumor benign palate DEXA SCAN/BONE MINERAL AXIAL 07/2002 normal, repeat 2007 DEXA SCAN/BONE MINERAL AXIAL 07/20/2006 normal repeat in 6-8 years EGD, FLEXIBLE, DIAGNOSTIC 01/30/2019 acid reflux, Schatzki ring, hiatal hernia / [facility] EXERCISE ECHO 09/02/2002 normal, Dr Genao INJECT DX/THER SUBSTANCE INTERLAMINAR LUMBAR/SACRAL W IMAGE GUIDE 01/18/2018 INJECTION SPINE LUMBAR OR SACRAL performed by Kewadin B Cousins, DO at OR [facility] INJECT DX/THER SUBSTANCE INTERLAMINAR LUMBAR/SACRAL W IMAGE GUIDE 02/12/2018 INJECTION SPINE LUMBAR OR SACRAL [facility] B Cousins[facility] INJECT DX/THER SUBSTANCE INTERLAMINAR LUMBAR/SACRAL W IMAGE GUIDE 12/27/2018 INJECTION SPINE LUMBAR OR SACRAL performed by [facility] Cousins, DO at OR [facility] INJECT DX/THER SUBSTANCE INTERLAMINAR LUMBAR/SACRAL W IMAGE GUIDE 02/21/2019 INJECTION SPINE LUMBAR OR SACRAL performed by [facility] Cousins, DO at OR [facility] MAMMOGRAM - [...] one ovary left in, Dr Chakraborty in [facility] REMOVE CATARACT, INSERT LENS PROSTH Right 01/05/[address] Messi Simon REMOVE CATARACT, INSERT LENS PROSTH Left 01/28/[address] Messi Simon STENT, COATED/COVERED, WITH DELIVERY SYSTEM 06/30/2009 [employer] [facility] Eluding Stent [facility] TOTAL HIP REPLACEMENT & PROSTHESIS 1992 left, Dr Ricardo TOTAL HIP REPLACEMENT & PROSTHESIS 10/2000 right , Dr Ricardo at [facility] Family History Problem Relation Age of Onset Cancer Mother cancer of bone Lung Disorder Father old age with heart failure Heart disease Father Lung Disorder Brother smoker Heart attack Brother age 62 Heart disease Brother angina No Known Problems Son No Known Problems Daughter No Known Problems Daughter Has patient ever had cancer? History of cancer, type: Skin cancer history and location: varied. Does not follow with derm any longer. Social History Tobacco Use Smoking status: Never Smoker Smokeless tobacco: Never Used Substance Use Topics Alcohol use: Yes Comment: occ-once every couple of months Vaping/E-Cigarette Use Vaping/E-Cigarette Use Never User Vaping/E-Cigarette Substances Vaping/E-Cigarette Devices Tobacco/Alcohol screening completed today: Yes Hospital Care: Admissions (within the last year): Hospital, Location: [facility] Date of Admission: 08/16/18 for diverticulitis. Also had her last colonoscopy at the hospital. ER within 30 days:No Does the patient have advance directives/living will? Yes Last Physical Exam: Last physical exam: 03/20/2019 Does patient see primary provider regularly? Yes Does patient see other providers? Yes, Specialist Patient care team updated? Yes Review of patient's allergies indicates: No Known Allergies Immunization History Administered Date(s) Administered Pneumococcal Conjugate Vacc, 13 Valent (Prevnar) 09/22/2014 Pneumococcal Polysaccharide PPV23 (Pneumovax) 03/12/2002 Seasonal Influenza, Quadrivalent, No Preserve, 6 Mons & Above, IM 03/23/2017, 03/14/2018 Seasonal Influenza, Quadrivalent, No Preserve, IM 04/06/2015, 04/11/2016 Seasonal Influenza, Trivalent, Adjuvanted, 65+ yrs 03/20/2019 Seasonal Influenza, Trivalent, with Preserve, 3yr & Above, Split 03/12/2002, 03/12/2003, 03/01/2006, 02/22/2007, 03/30/2007, 04/28/2008, 02/04/2009, 02/17/2010, 03/18/2011, 03/20/2012, 04/25/2013, 03/10/2014 TD, Preservative Free 04/28/2008, 04/21/2012 TDAP (age 10 and older)(Boostrix) 08/28/2018 Varicella Zoster Vaccine (Adult) 06/11/2008 Current Outpatient Medications Medication Sig Dispense Refill cyclobenzaprine (FLEXERIL) 5 MG Tablet Take 1 [...] given to our office. 1 Each 1 Medication Compliance: Patient is able to obtain all of her medications? Yes Patient takes medications as prescribed? Yes Patient manages own medications: Yes Patient uses a pill box? Yes, refill(s) completed by self Dental Exam: Yes: Every 6 Months Eye Screening: Yes: Every year Are you having trouble with hearing: Yes Do you use an assistive device to help your hearing: No. Has some hearing aides from [employer]. They never seemed to work right and the [employer] folks were not very helpful. She is doing a trialof some different ones. Exercise Screening: only the exercise associated with activities at home. 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 Unable to walk very far at a time. Nutrition Assessment: Eats a balanced diet and Eats three meals a day Pain Screening: Are you having any pain? No Patient and Caregiver Support System: Patient lives: with daughter Means of Transportation: Drives. Not a concern. Patient lives in: One Story - with basement stairs: Hand rail. Uses stairs daily, shower and laundry in the basement. Very careful on steps. Community Resources: Not Applicable Functional Status and [...] clothes and returns without any assistance: Independent continent of bladder and continent of bowel Feeding: Self Bathing: Self; Walk-in shower. Non-skid mat. Considering getting a seat. Requires none assistance with ADLs. Instrumental ADL's: [...] Does the patient use sedatives or narcotics? Yes Fall Risk Factors Present: Uses more than 4 medications Uses sedatives or narcotics Older than age 70 Kow-Pz-nov-Go Test: Time began at 1000. Patient stood from sitting position and walked approximately 10 feet, returned and sat down. Total time for pvk-zy-scv-go test was 10 seconds. Fhj-Hj-qrq-Go Test Completed: Yes Gender Specific Preventative Plan: Health Maintenance Topic Date Due Zoster Vaccines (2 of 3) 08/06/2008 CKD PHOS USE SMARTSET 53974 08/14/2019 CKD GFR USE SMARTSET 47578 09/19/2019 CKD HGB USE SMARTSET 37743 04/04/2020 DXA-SCREENING EVERY 7 YRS-USE SMARTSET# 3348 TO ORDER 10/30/2020 DIABETES SCREEN EVERY 3 YRS-AGE 45 AND ABOVE 03/20/2022 DTaP,Tdap,and Td Vaccines (2 - Td) 08/28/2028 Influenza Vaccine (FLU shot) Completed Pneumococcal Vaccine: 65+ Years Completed MENINGOCOCCAL (MENACTRA/MENVEO) Aged Out Follow Up/ Referrals/Handouts: Fall prevention POC document Goals Letter Would patient like to schedule next AWV visit: Yes Megan Soares RN documented in this encounter Plan of Treatment Upcoming Encounters Date Type Specialty Care Team Description 09/23/2019 Office Visit [facility] [address] [facility] [address] [phone] 10/03/2019 Office Visit Cardiology Yvon Harris PA-C [address] [facility] [place] [address] [phone] Pending Results Name Type Priority Associated Diagnoses Date /Time PHOSPHORUS Lab Routine Kidney disease, chronic, stage III (GFR 30-59 ml/min) ([facility]) 07/15/2019 10:41 AM EST CREATININE SERUM Lab Routine Kidney disease, chronic, stage III (GFR 30-59 ml/min) ([facility]) 07/15/2019 10:41 AM EST Scheduled Orders Name Type Priority Associated Diagnoses Orde r Schedule PHOSPHORUS Lab Routine Kidney disease, chronic, stage III (GFR 30-59 ml/min) ([facility]) Expected: 07/15/2019, Expires: 07/13/2020 CREATININE SERUM Lab Routine Kidney disease, chronic, stage III (GFR 30-59 ml/min) ([facility]) Expected: 07/15/2019, Expires: 07/13/2020 Health Maintenance Due Date Last Done Comments Zoster Vaccines (2 of 3) 08/06/2008 06/11/2008 CKD PHOS USE SMARTSET 08205 08/14/2019/09/2018, 01/09/2017, 04/11/2016, Additional history exists CKD GFR USE SMARTSET 15537 09/19/201903/20, 08/13/2018, 03/08/2018, Additional history exists CKD HGB USE SMARTSET 88825 04/04/202004/04, 08/13/2018, 02/14/2018, Additional history exists DXA-SCREENING [...] as of this encounter Visit Diagnoses Diagnosis Kidney disease, chronic, stage III (GFR 30-59 ml/min) (HCC)- Primary Chronic kidney disease, Stage III (moderate) Routine general medical examination at a health care facility documented in this encounter Advance Directives Documents on File Type Date Recorded 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 Advance Directives and Living Will 08/13/2009 12:00 AM LIVING WILL Power of Matcher Offbearer 08/13/2009 12:00 AM DOMONIQUE R OF COMMUNITY ORGANIZATION DIRECTOR DURABLE HEALTH POA AND HEALTH CARE TREATMENT INSTR Power of Matcher Offbearer 08/13/2009 12:00 AM DOMONIQUE R OF COMMUNITY ORGANIZATION DIRECTOR DURABLE HEALTH CARE POA Advanced Directive service a mike default Advanced Directive Advanced Directive Advanced Directive Advanced Directive Advanced Directive Advanced Directive Advanced Directive Advanced Directive Advanced Directive Advanced Directive Advanced Directive Advanced Directive 09/01/2016 8:20 AM Advanced Directive Advanced Directive
--- OUTSIDE RECORDS SUMMARY | 2023-01-22 22:58 | External Medical Summary | Summary of Care ---
Author Name Unknown Organization [place] [address] Care Team Providers Care Knife Glazer Name Role Phone Bj Mario Primary Care Provider [phone] Reason for Visit * Reason Comments Acute Encounter Details Date Type Department Care Team Description 06/21/2019 Office Visit Family Practice [facility] [address] [facility] [address] [place] [address] Luiza Phipps PA-C [address] [facility] [place] [address] [phone] Bronchitis, complicated*; Acute maxillary sinusitis, recurrence not specified; 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); Chronic ischemic heart disease Allergies No Known Allergiesdocumented as of this encounter (statuses as of 06/24/2019) Medications Medication Sig Dispensed Refills Start Date [...] metoprolol succinate XL (TOPROL XL) 25 MG [id number]:Chroni c ischemic heart disease Take 0.5 Tabs [...] as of this encounter (statuses as of 06/24/2019) Active Problems Problem Noted Date Benign hypertension [...] as of this encounter (statuses as of 06/24/2019) Resolved Problems Problem Noted Date Resolved Date [...] as of this encounter (statuses as of 06/24/2019) Immunizations Name Administration Dates Next Due Pneumococcal [...] in this encounter Miscellaneous Notes * Result Jannette Alcocer LPN - 06/24/2019 10:30 AM EST Letter sent * Result Luiza Heaton PA-C - 06/21/2019 5:32 PM EST Please send a lab letter stating xray results normal. documented in this encounter Plan of Treatment Upcoming Encounters Date Type Specialty Care Team Description 09/23/2019 Office Visit Family Medicine Bj Mario, [address] [place] [address] [phone] 10/03/2019 Office Visit Cardiology Yvon Harris PA-C [address] [facility] [place] [address] [phone] Health Maintenance Due Date Last Done Comments Zoster Vaccines (2 of 3) 08/06/2008 06/11/2008 CKD PHOS USE SMARTSET 37528 08/14/201907/21, 01/09/2017, 04/11/2016, Additional history exists CKD GFR USE SMARTSET 65096 09/19/201903/20, 08/13/2018, 03/08/2018, Additional history exists CKD HGB USE SMARTSET 73972 04/04/202004/04, 08/13/2018, 02/14/2018, Additional history exists DXA-SCREENING [...] Performed At IMPRESSION 1. No acute process. [facility] Narrative Performed At EXAM XR CHEST [...] is likely a granuloma. Degenerative osseous changes. [facility] Procedure Note Interface, Rad In - [...] Performing Organization Address City/State/Zipcod e Phone Number [facility] documented in this encounter Visit Diagnoses [...] Documents on File Type Date Recorded Patient Mat Machine Tender Expl anation Advance Directives and Living Will 08/13/2009 12:00 AM LIVING WILL Power of Game Programmer 08/13/2009 12:00 AM DOMONIQUE R OF FINAL INSPECTOR TRUCK TRAILER DURABLE HEALTH POA AND HEALTH CARE TREATMENT INSTR Power of Game Programmer 08/13/2009 12:00 AM DOMONIQUE R OF FINAL INSPECTOR TRUCK TRAILER DURABLE HEALTH CARE POA Advanced Directive service a mike default Advanced Directive Advanced Directive Advanced Directive Advanced Directive Advanced Directive Advanced Directive Advanced Directive Advanced Directive Advanced Directive Advanced Directive Advanced Directive Advanced Directive 09/01/2016 8:20 AM Advanced Directive"
--- OUTSIDE RECORDS SUMMARY | 2023-01-22 22:58 | External Medical Summary ---
Author Name Unknown Address [address] [place] [address] Phone Organization K01:[facility] [address] [id number] Laboratory Report Ordering Provider Test Date Status SRINI RUCKER 04/04/2019 10:11:00 Final Observation Date Value Abnormality Reference Status TSH 04/04/2019 20:26 2.29 0.27-4.2 Fin al T4, Free 04/04/2019 20:26 NOT APPLICABLE 0.9-1.7 Final Performing Location [facility] [address] [facility] [address]
--- OUTSIDE RECORDS SUMMARY | 2023-01-22 22:58 | External Medical Summary | Summary of Care ---
Author Name Unknown Organization [place] [address] Care Team Providers Care Billet Assembler Name Role Phone Bj Mario Primary Care Provider [phone] Reason for Visit * Reason Comments Acute Encounter Details Date Type Department Care Team Description 06/21/2019 Office Visit Family Practice [facility] [address] [place] [address] Luiza Phipps PA-C [address] [facility] [place] [address] [phone] Bronchitis, complicated*; Acute maxillary sinusitis, recurrence not [...] metoprolol succinate XL (TOPROL XL) 25 MG [id number]:Chroni c ischemic heart disease Take 0.5 Tabs [...] DUS placed in the mid RCA at [facility] Asymptomatic bilateral carotid artery st enosis 06/10/2014 Raynaud phenomenon 06/13/2011 Knee joint replacement status 01/13/2011 Overview: 2014, right Dr Ricardo [facility] 2011: left Dr Priya Ricardo [facility] Dyslipidemia, goal LDL below 70 09/21/19 11 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 neurogenic claudication 02/17/2010 Vitamin D deficiency 10/13/2009 Chronic ischemic heart disease 0 S/P angioplasty with stent 06/30/2009 Overview: 07/01/2009 DUS in the RCA at [facility] Non-toxic multinodular goiter 04/21/2009 Overview: [...] Visit Family Medicine Bj Mario, DO [address] [facility] [place] [address] [phone] 10/03/2019 Office Visit Cardiology Yvon Harris PA-C [address] [facility] [place] [address] [phone] Health Maintenance Due Date Last Done Comments Zoster Vaccines (2 of 3) 08/06/2008 06/11/2008 CKD PHOS USE SMARTSET 43352 08/14/201907/21, 01/09/2017, 04/11/2016, Additional history exists CKD GFR USE SMARTSET 62443 09/19/201903/20, 08/13/2018, 03/08/2018, Additional history exists CKD HGB USE SMARTSET 20448 04/04/202004/04, 08/13/2018, 02/14/2018, Additional history exists DXA-SCREENING [...] Performed At IMPRESSION 1. No acute process. [facility] Narrative Performed At EXAM XR CHEST [...] is likely a granuloma. Degenerative osseous changes. 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 Peeler Expl anation Advance Directives and Living Will 08/13/2009 12:00 AM LIVING WILL Power of Box Folding Machine Operator 08/13/2009 12:00 AM DOMONIQUE R OF BOX STAMPER DURABLE HEALTH POA AND HEALTH CARE TREATMENT INSTR Power of Box Folding Machine Operator 08/13/2009 12:00 AM DOMONIQUE R OF BOX STAMPER DURABLE HEALTH CARE POA Advanced Directive service a mike default Advanced Directive Advanced Directive Advanced Directive Advanced Directive Advanced Directive Advanced Directive Advanced Directive Advanced Directive Advanced Directive Advanced Directive Advanced Directive Advanced Directive 09/01/2016 8:20 AM Advanced Directive"
--- OUTSIDE RECORDS SUMMARY | 2023-01-22 22:58 | External Medical Summary | Summary of Care ---
Author Name Unknown Organization [place] [address] Care Team Providers Care Intervention Specialist Name Role Phone Bj Mario Primary Care Provider [phone] Reason for Visit * Reason Comments Follow Up 6 month return Encounter Details Date Type Department Care Team Description 04/04/2019 Office Visit Cardiology, [facility] [address] [place] [address] Yvon Harris PA-C [address] [facility] [place] [address] [phone] Chronic ischemic heart disease*; Dyslipidemia, goal LDL below 70; 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); S/P angioplasty with stent; HTN, goal below 140/90; Fatigue, unspecified type Allergies No Known Allergiesdocumented as of this encounter (statuses as of 04/08/2019) Medications Medication Sig Dispensed Refills Start Date [...] metoprolol succinate XL (TOPROL XL) 25 MG [id number]:Chronic ischemic heart disease Take 0.5 Tabs by mouth daily. 45 Tab 3 03/20/2019 Active documented as of this encounter (statuses as of 04/08/2019) Active Problems Problem Noted Date Benign hypertension with CKD (chronic ki dney disease) stage III 09/06/2017 History of deep vein thrombosis (DVT) of lower extremity 09/08/2016 Status post insertion of drug eluting co ronary artery stent 04/07/2015 Overview: 2009, DUS placed in the mid RCA at [facility] Asymptomatic bilateral carotid artery st enosis 06/10/2014 Raynaud phenomenon 06/13/2011 Knee joint replacement status 01/13/2011 Overview: 2014, right Dr Ricardo [facility] 2011: left Dr Priya Ricardo [facility] Dyslipidemia, goal LDL below 70 09/21/19 11 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 neurogenic claudication 02/17/2010 Vitamin D deficiency 10/13/2009 Chronic ischemic heart disease 0 S/P angioplasty with stent 06/30/2009 Overview: 07/01/2009 DUS in the RCA at [facility] Non-toxic multinodular goiter 04/21/2009 Overview: [...] as of this encounter (statuses as of 04/08/2019) Resolved Problems Problem Noted Date Resolved Date [...] as of this encounter (statuses as of 04/08/2019) Immunizations Name Administration Dates Next Due Pneumococcal [...] Alcohol Use Drinks/Week oz/Week Comments Yes occ Sex Assigned at Date Recorded Female 09/14/2018 8:42 AM E DT Job Start Date Occupation Industry Not on file Not on file Not on file Travel History Travel Start Travel End documented as of this encounter Last Filed Vital Signs Vital Sign Reading Time Taken Comments Blood Pressure 140/80 04/04/2019 9:27 AM EST Pulse 60 04/04/2019 9:27 AM EST Temperature - - Respiratory Rate 16 04/04/2019 9:27 AM EST Oxygen Saturation - - Inhaled Oxygen Concentration - - Weight 87 kg (191 lb 12.8 oz) 04/04/2019 9:27 AM EST Height - - Body Mass Index 33.56 03/20/2019 9:29 AM EDT documented in this encounter Progress Notes * Yvon Harris PA-C - 04/04/2019 9:37 AM EST History of Present Illness: Eugenia Hu is an 84-year-old female here today for cardiology evaluation. Hospitalized at [facility] in July 2018 with acute diverticulitis. Colonoscopy in September 2018 revealed diverticulosis as well as nonbleeding internal hemorrhoids. Repeat colonoscopy not recommended for screening purposes. EGD on January 30, 2019 revealed a large hiatal hernia and a nonobstructing Schatzki's ring that was dilated and biopsied. Swallowing improved. Chronic PPI therapy recommended by GI. Off Protonix, prescribed Pepcid by PCP. Chronic back pain. Followed by Dr. Berg - left thoracolumbar myofascial pain, severe lumbar spinal stenosis. Status post injection on 04/02/2019. Raked leaves on Monday for about two hours and did OK. "I got what I wanted done." Stable dyspnea on exertion. Notes dyspnea when walking up the cellar steps and/or walking across the street. No exertional chestpain. No sublingual nitroglycerin use. She previously had chronic stable chest heaviness when firstrelaxing/retiring for the night; this seems to be better "since I've been taking that antiacid." Notachypalpitations. No orthopnea or PND to accompany the chronic left greater than right lower extremity edema. Fatigue. No dizziness, near syncope, or syncope. No fevers or chills. No night sweats. Weight is up 7 pounds from last evaluation. "I mostly hang around 185 lbs." History includes chest pain and abnormal adenosine [...] systolic function, EF 55%. Patient hospitalized at [facility] in June 2012 at which [...] TTE was interpreted by Dr. Kidd at [facility] on September 02, 2016 as demonstrating normal LV chamber size with mild concentric LVH. Left ventricular wall motion was normal. Systolic function was normal, EF 60 to 65%. The right ventricle was noted be normal in size and function. There was moderate aortic sclerosis without significant stenosis and trace mitral regurgitation observed. Additional problems include carotid disease without infarction, [...] replacement status 01/13/[address] Priya Ricardo [facility] Knee joint replacement status 12/15/2013 right [facility] Macular degeneration Ugo Heimer, MD Menopause 1974 Need for prophylactic hormone replacement therapy (postmenopausal) 1974 Non-toxic multinodular goiter 04/2009 seen on US, repeat Other screening mammogram 10/24/03 Birad Code 2 Other specified glaucoma both eyes, Paul Simon MD, drops used, timolol S/P angioplasty with stent 06/30/09 [facility] Status post insertion of drug eluting coronary artery stent 04/07/20152009, DUS placed in the mid RCA at [facility] Vitamin D deficiency 10/13/2009 Past Surgical History: Procedure Laterality Date ARTHROPLASTY KNEE TOTAL Left 01/13/2011 Left, Dr Priya Ricardo [facility] ARTHROPLASTY KNEE TOTAL Right 12/16/13 Right, Dr Priya Ricardo [facility] CARDIAC CATH SCANNED RESULT 06/30/2009 DUS placed in right coronary, [facility] CARPAL TUNNEL SURGERY Bilateral 2014 bilateral COLONOSCOPY 03/22/2006 normal repeat in 2015 COLONOSCOPY, DIAGNOSTIC (RECTUM) 09/01/2016 diverticulosis/COLONOSCOPY FLEXIBLE PROXIMAL DIAGNOSTIC performed by Kaylie Ford MD at ENDOSCOPY [facility] COLONOSCOPY, DIAGNOSTIC (RECTUM) 10/09/2018 diverticulosis/[facility] COLONOSCOPY, GI REFERRAL OP 03/22/2005 diverticulosis, repeat in 10 years for surveillance reasons COLORECTAL CANCER SCREEN;W/FLE 1999 normal, Dr Estrella DENTAL SURGERY PROCEDURE NEC 1970 Dental Surgery Procedure tumor benign palate DEXA SCAN/BONE MINERAL AXIAL 07/2002 normal, repeat 2007 DEXA SCAN/BONE MINERAL AXIAL 07/20/2006 normal repeat in 6-8 years EGD, FLEXIBLE, DIAGNOSTIC 01/30/2019 acid reflux, Schatzki ring, hiatal hernia / [facility] EXERCISE ECHO 09/02/2002 normal, Dr Genao INJECT DX/THER SUBSTANCE INTERLAMINAR LUMBAR/SACRAL W IMAGE GUIDE 01/18/2018 INJECTION SPINE LUMBAR OR SACRAL performed by [place] Azam Kimsins, DO at OR [facility] INJECT DX/THER SUBSTANCE INTERLAMINAR LUMBAR/SACRAL W IMAGE GUIDE 02/12/2018 INJECTION SPINE LUMBAR OR SACRAL performed by [facility] Juliosins, DO at OR [facility] INJECT DX/THER SUBSTANCE INTERLAMINAR LUMBAR/SACRAL W IMAGE GUIDE 12/27/2018 INJECTION SPINE LUMBAR OR SACRAL performed by [facility] Juliosins, DO at OR [facility] INJECT DX/THER SUBSTANCE INTERLAMINAR LUMBAR/SACRAL W IMAGE GUIDE 02/21/2019 INJECTION SPINE LUMBAR OR SACRAL performed by Paul B Cousins, DO at OR [facility] MAMMOGRAM - BILATERAL 2.1.02 negative finding. [...] one ovary left in, Dr Chakraborty in [facility] REMOVE CATARACT, INSERT LENS PROSTH Right 01/05/[address] Messi Simon REMOVE CATARACT, INSERT LENS PROSTH Left 01/28/[address] Messi Simon STENT, COATED/COVERED, WITH DELIVERY SYSTEM 06/30/2009 [employer] Drug Eluding Stent [facility] TOTAL HIP REPLACEMENT & PROSTHESIS 1992 left, Dr Ricardo TOTAL HIP REPLACEMENT & PROSTHESIS 10/2000 right , Dr Ricardo at [facility] Family History Problem Relation Age of Onset Cancer Mother cancer of bone Lung Disorder Father old age with heart failure Heart Disorder Brother [place] at age 62 Heart Disorder Brother angina Social History Socioeconomic History Marital status: Spouse [...] Self-Exams Not Asked Social History Narrative born [place] [facility] since 1953 ; 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 Complete Review of Systems: See above. Otherwise negative or noncontributory. Review of patient's allergies indicates: No Known Allergies Outpatient Medications Marked as Taking for the 04/04/19 encounter (Office Visit) with Yvon Harris PA-C Medication Sig cyclobenzaprine (FLEXERIL) 5 MG Tablet Take 1 Tab by mouth 2 times a day as needed for Muscle spasms. famotidine (PEPCID) 20 MG Tablet Take 1 Tab by mouth 2 times a day. metoprolol succinate XL (TOPROL XL) 25 MG TB24 Take 0.5 Tabs by mouth daily. lisinopril (PRINIVIL) 10 MG Tablet Take 1 Tab by mouth daily. rOPINIRole (REQUIP) 0.25 MG Tablet Take 1 Tab by mouth at bedtime. rosuvastatin (CRESTOR) 20 MG Tablet Take 1 Tab by mouth daily. acetaminophen (TYLENOL EXTRA STRENGTH) 500 MG Tablet Take 500 mg by mouth every 6 hours as needed for Pain. TRAVATAN Z 0.004 % ophthalmic solution Instill 1 Drop into both eyes every evening. VITAMIN D 1000 UNIT PO CAPS 1 capsule daily ASPIRIN 81 MG PO CHEW One pill by mouth once a day with food OBJECTIVE/PHYSICAL EXAMINATION: BP 140/80 | Pulse 60 | Resp 16 | Wt 191 lbs 12.8 oz (87.000kg) | BMI 33.56 kg/m | BSA 1.97 m | General: NAD. HEENT: Normocephalic. Atraumatic. [...] dating back to January 2015. ASSESSMENT: 1. Stable ASCVD. 2. Hypertension. Acceptably controlled. 3. Hyperlipidemia, on moderate intensity statin therapy. LDL 55 mg/dL in January 2018. 4. History of carotid disease without infarction RECOMMENDATIONS/PLAN: Fating lipid panel, TSH, CBC. Continue current cardiac medications as prescribed. Cardiology follow-up in 6 months or as needed. ER with emergencies Yvon Harris PA-C Department of Cardiology documented in this encounter Nursing Notes * Carmen Srinivasan RN - 04/04/2019 9:29 AM EST Examination Room: 2 Name: Eugenia Hu Date of : (1935). Reason for Visit: 6 month return Interim Hospitalization(s): Denied Problems/Concerns: Pain in abdomen that radiates to back x 1-2 months Chest Pain/SOB: Denied [facility] is a way you can talk to your provider online through e-mail. Would you like to sign up? I can activate it for you? NO documented in this encounter Miscellaneous Notes * Result QuickNote - Yvon Harris PA-C - 04/05/2019 7:57 AM EST ok documented in this encounter Plan of Treatment Upcoming Encounters Date Type Specialty Care Team Description 09/23/2019 Office Visit Family Medicine Bj Mario, DO [address] [facility], [place] [address] [phone] 10/03/2019 Office Visit Cardiology Yvon Harris PA-C [address] [place] [address] [phone] Health Maintenance Due Date Last Done Comments CKD PHOS USE SMARTSET 89034 08/14/201907/21, 01/09/2017, 04/11/2016, Additional history exists CKD GFR USE SMARTSET 89634 09/19/201903/20, 08/13/2018, 03/08/2018, Additional history exists CKD HGB USE SMARTSET 15353 04/04/202004/04, 08/13/2018, 02/14/2018, Additional history exists DXA-SCREENING [...] , 03/14/2018, 03/23/2017, Additional history exists MENINGOCOCCAL (MENACTRA) Aged Out No longer eligible based on patient's age to complete this topic documented as of this encounter Implants Not on filedocumented as of this encounter Procedures Procedure Name Priority Date/Time Associated Diagnosis Comments TSH WITH FREE T4 IF INDICATED Routine 04/04/2019 10:11 AM EST Fatigue, unspecified type LIPID PANEL WITH DIRECT LDL IF TRIGLYCERIDE IS ELEVATED Routine 04/04/2019 10:11 AM EST Dyslipidemia, goal LDL below 70 CBC Routine 04/04/2019 10:11 AM EST Fatigue, unspecified type documented in this encounter Results * TSH WITH FREE T4 IF INDICATED (04/04/2019 10:11 AM EST) TSH 2.29 0.27 - 4.2 uIU/mL [facility] FREE T4 REFLEXIVE NOT APPLICABLE 0.9 - 1.7 ng/dL [facility] Specimen Performing Organization Address City/State/Zipcod e Phone Number [facility], [address] [place] [address] * LIPID PANEL WITH DIRECT LDL IF TRIGLYCERIDE IS ELEVATED (04/04/2019 10:11 AM EST) HOURS FASTING >8 HOURS hours [facility] TRIGLYCERIDES 110 Comment: Triglyceride Reference Ranges (mg/dL) <150 Acceptable 150-174 Borderline high 175-499 High >=500 Very high 0 - 174 mg/dL [facility] CHOLESTEROL 137 Comment: Total Cholesterol Reference Ranges (mg/dL) <200 Desirable 200-239 Borderline high >=240 High <200 mg/dL [facility] HDL 56 Comment: HDL Cholesterol Reference Ranges (mg/dL) >=60 High (Desirable) <50 Low (Undesirable) For Females <40 Low (Undesirable) For Males >49 mg/dL [facility] NON-HDL CHOLESTEROL 81 Comment: Non-HDL Cholesterol Reference Range (mg/dL) <100 Target level for high risk ASCVD patient <130 Optimal for general population 130-159 Near optimal for general population 160-189 Borderline High 190-219 High >=220 Very High 0 - 159 mg/dL [facility] LDL (CALCULATED) 59 Comment: LDL Cholesterol Reference Ranges (mg/dL) <70 Target level for high risk ASCVD patient <100 Optimal for general population 100-129 Near optimal for general population 130-159 Borderline high 160-189 High >=190 Very high 0 - 129 mg/dL [facility] LDL DIRECT(REFLEX) NOT APPLICABLE 0 - 129 mg/dL [facility] Specimen Performing Organization Address City/[facility]/Zipcod e Phone Number [facility], [address] [facility] [place] [address] SINDY Landas, [address] [place] [address] * CBC (04/04/2019 10:11 AM EST) WBC 6.93 4.00 - 10.80 K/uL [facility] RBC 4.13 3.85 - 5.15 M/[facility] HGB 12.5 12.0 - 15.3 g/dL [facility] HCT 38.9 36.0 - 45.2 % [facility] MCV 94.2 81.5 - 97.5 fL [facility] MCH 30.3 27.0 - 34.0 pg [facility] MCHC 32.1 32.0 - 36.0 g/dL [facility] RDW 13.1 11.5 - 15.5 % [facility] PLATELET COUNT 273 140 - 400 K/uL [facility] [place] [facility] EB [facility] MPV 9.6 6.6 - 11.1 fL [facility] Specimen Performing Organization Address City/[facility] Phone Number [facility], [address] [place] [address] documented in this encounter Visit Diagnoses Diagnosis Chronic ischemic heart disease- Primary Chronic ischemic heart disease, unspecified Dyslipidemia, goal LDL below 70 Other and unspecified hyperlipidemia 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 I through stage IV, or unspecified S/P angioplasty with stent Postsurgical percutaneous transluminal coronary angioplasty status HTN, goal below 140/90 Unspecified essential hypertension Fatigue, unspecified type documented in this encounter Advance Directives Documents on File Type Date Recorded 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 Advance Directives and Living Will 08/13/2009 12:00 AM LIVING WILL Power of Calibration Laboratory Technician 08/13/2009 12:00 AM DOMONIQUE Madsen OF [employer] DURABLE HEALTH POA AND HEALTH CARE TREATMENT INSTR Power of Calibration Laboratory Technician 08/13/2009 12:00 AM DOMONIQUE R OF [employer] DURABLE HEALTH CARE POA Advanced Directive service a mike default Advanced Directive Advanced Directive Advanced Directive Advanced Directive Advanced Directive Advanced Directive Advanced Directive Advanced Directive Advanced Directive Advanced Directive Advanced Directive Advanced Directive 09/01/2016 8:20 AM Advanced Directive
--- OUTSIDE RECORDS SUMMARY | 2023-01-22 22:58 | External Medical Summary ---
Author Name Unknown Address [address] [facility] [place] [address] Phone Organization [id number] [address] [facility] [place] [address] Laboratory Report Ordering Provider Test Date Status SRINI RUCKER 04/04/2019 10:11:00 Final Observation Date Value Abnormality Reference Status WBC, Total 04/04/2019 10:36 6.93 4.00-10.80 F inal RBC 04/04/2019 10:36 4.13 3.85-5.15 Fin al Hemoglobin 04/04/2019 10:36 12.5 12.0-15.3 Fi nal HCT 04/04/2019 10:36 38.9 36.0-45.2 Fin al MCV 04/04/2019 10:36 94.2 81.5-97.5 Fin al MCH 04/04/2019 10:36 30.3 27.0-34.0 Fin al MCHC 04/04/2019 10:36 32.1 32.0-36.0 Fin al RDW 04/04/2019 10:36 13.1 11.5-15.5 Fin al Platelets 04/04/2019 10:36 273 140-400 Fin al MPV 04/04/2019 10:36 9.6 6.6-11.1 Fin al Performing Location [facility] [address] [facility] [place] [address]
--- OUTSIDE RECORDS SUMMARY | 2023-01-22 22:58 | External Medical Summary | Summary of Care ---
Author Name Unknown Organization [place] [address] Care Team Providers Care Metal Welder Name Role Phone Bj Mario DO Primary Care Provider [phone] Reason for Visit * Reason Comments Acute Encounter Details Date Type Department Care Team Description 05/27/2019 Office Visit General Internal Medicine [facility] [address] [place] [address] Leonel Burns PA-C [address] [facility] [place] [address] Acute bronchitis, antibiotics not indicated* Allergies No Known Allergiesdocumented as of this encounter (statuses as of 05/27/2019) Medications Medication Sig Dispensed Refills Start Date [...] metoprolol succinate XL (TOPROL XL) 25 MG [id number]:Chroni c ischemic heart disease Take 0.5 Tabs by mouth daily. 45 Tab 3 03/20/2019 Active predniSONE (DELTASONE) 20 MG TabletIndications:Acut e bronchitis, antibiotics not indicated Take 2 Tabs by mouth daily for 5 days. 10 Tab 0 05/27/2019 06/01/2019 Active documented as of this encounter (statuses as of 05/27/2019) Active Problems Problem Noted Date Benign hypertension [...] as of this encounter (statuses as of 05/27/2019) Resolved Problems Problem Noted Date Resolved Date [...] as of this encounter (statuses as of 05/27/2019) Immunizations Name Administration Dates Next Due Pneumococcal [...] Yes Alcohol Use Drinks/Week oz/Week Comments Yes occ [...] Sign Reading Time Taken Comments Blood Pressure 132/70 05/27/2019 4:44 PM EST Pulse 90 05/27/2019 4:44 PM EST Temperature 36.4 C (97.5 F) 05/27/2019 4:44 PM ES T Respiratory Rate 13 05/27/2019 4:44 PM EST Oxygen Saturation - - Inhaled Oxygen Concentration - - Weight 87.3 kg (192 lb 6.4 oz) 05/27/2019 4:44 P M EST Height 157.5 cm (5' 2") 05/27/2019 4:44 PM EST Body Mass Index 35.19 05/27/2019 4:44 PM EST documented in this encounter Progress Notes * Leonel Burns PA-C - 05/27/2019 4:49 PM EST Subjective: Eugenia Hu is a 84 year old female. Chief Complaint Patient presents with Acute HPI: 84 y/o female presents with complaint of sinus congestin, runny nose, chest tightness, wheezing for 4 days. Has associated SOB with approximately 20 steps. Has been using cold and flu medicationand a decongestant for some symptom relief. Denies fever, chills, sweats, night sweats, SOB at rest. PMH: Patient Active Problem List Diagnosis Code [...] other than mentioned in HPI. Objective: BP 132/70 | Pulse 90 | Temp (Src) 97.5 (Tympanic) | Resp 13 | Ht 5' 2" (1.575m) | Wt 192 lbs 6.4 oz(87.272kg) | BMI 35.19 kg/m | BSA 1.95 m Physical Exam: Constitutional: No acute distress. Head: normocephalic, atraumatic Eyes: PERRLA with intact EOM, no scleral icterus, injection, or nystagmus noted. Ears: TM pearly bauer bilaterally with light reflex noted without erythema or drainage bilaterally. No tenderness to helix tug. Nose: Turbinates edematous with rhinorrhea. Throat: Pharynx with mild erythema. No exudates. Neck: supple without mass or nodule palpated. Cardiovascular: RRR without RMG. No carotid bruits, peripheral edema. Radial pulses and posterior tibial pulses +2. Pulmonary: Bilateral expiratory wheezing without rales or rhonchi. No intercostal retractions. [place]air movement. Lymph: No lymphadenopathy appreciated about occipital, anterior cervical, posterior cervical, supraclavicular, infraclavicular, submental, submandibular, tonsillar, pre-auricular, post-auricular regions ASSESSMENT: Acute bronchitis, antibiotics not indicated - predniSONE (DELTASONE) 20 MG Tablet; Take 2 Tabs by mouth daily for 5 days. - Advised on cough suppressant, antihistamines as needed for symptom relief. Leonel Burns PA-C documented in this encounter Nursing Notes * Mya Andrews LPN - 05/27/2019 4:43 PM EST Patient states uri for 5 days. Productive of thick yellow sputum. documented in this encounter Plan of Treatment Upcoming Encounters Date Type Specialty Care Team Description 09/23/2019 Office Visit Family Medicine Bj Mario, DO [address] [place] [address] [phone] 10/03/2019 Office Visit Cardiology Yvon Harris PA-C [address] [facility] [place] [address] [phone] Health Maintenance Due Date Last Done Comments Zoster Vaccines (2 of 3) 08/06/2008 06/11/2008 CKD PHOS USE SMARTSET 17445 08/14/201907/21, 01/09/2017, 04/11/2016, Additional history exists CKD GFR USE SMARTSET 50630 09/19/201903/20, 08/13/2018, 03/08/2018, Additional history exists CKD HGB USE SMARTSET 51257 04/04/202004/04, 08/13/2018, 02/14/2018, Additional history exists DXA-SCREENING [...] as of this encounter Visit Diagnoses Diagnosis Acute bronchitis, antibiotics not indicated- Primary Acute bronchitis documented in this encounter Advance Directives Documents on File Type Date Recorded 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 Advance Directives and Living Will 08/13/2009 12:00 AM LIVING WILL Power of Integration Aide 08/13/2009 12:00 AM DOMONIQUE Madsen OF [employer] DURABLE HEALTH POA AND HEALTH CARE TREATMENT INSTR Power of Integration Aide 08/13/2009 12:00 AM DOMONIQUE Madsen OF [employer] DURABLE HE[employer] CARE POA Advanced Directive service a mike default Advanced Directive Advanced Directive Advanced Directive Advanced Directive Advanced Directive Advanced Directive Advanced Directive Advanced Directive Advanced Directive Advanced Directive Advanced Directive Advanced Directive 09/01/2016 8:20 AM Advanced Directive
--- OUTSIDE RECORDS SUMMARY | 2023-01-22 22:58 | External Medical Summary | Summary of Care ---
Author Name Unknown Organization [place] [address] Care Team Providers Care Floor Coverer Name Role Phone Bj Mario Primary Care Provider [phone] Reason for Visit * Reason Comments Acute Encounter Details Date Type Department Care Team Description 06/21/2019 Office Visit Family Practice [facility] [address] [place] [address] Luiza Phipps PA-C [address] [place] [address] [phone] Bronchitis, complicated*; Acute maxillary sinusitis, recurrence not [...] metoprolol succinate XL (TOPROL XL) 25 MG [id number]:Chroni c ischemic heart disease Take 0.5 Tabs [...] Description 09/23/2019 Office Visit Family Medicine Bj Mairo, [address] [place] [address] [phone] 10/03/2019 Office Visit Cardiology Yvon Harris PA-C [address] [facility] [place] [address] [phone] Health Maintenance Due Date Last Done Comments Zoster Vaccines (2 of 3) 08/06/2008 06/11/2008 CKD PHOS USE SMARTSET 74401 08/14/201907/21, 01/09/2017, 04/11/2016, Additional history exists CKD GFR USE SMARTSET 77364 09/19/201903/20, 08/13/2018, 03/08/2018, Additional history exists CKD HGB USE SMARTSET 31812 04/04/202004/04, 08/13/2018, 02/14/2018, Additional history exists DXA-SCREENING [...] acute process. [facility] Narrative Performed At EXAM XR CHEST [...] is likely a granuloma. Degenerative osseous changes. [facility] Procedure Note Interface, Rad In - [...] Phone Number [facility] documented in this encounter Visit Diagnoses [...] Documents on File Type Date Recorded Patient Pit Slagman Expl anation Advance Directives and Living Will 08/13/2009 12:00 AM LIVING WILL Power of Steward/Stewardess Bath 08/13/2009 12:00 AM DOMONIQUE R OF DIRECTOR OF ENTERPRISE ARCHITECTURE DURABLE HEALTH POA AND HEALTH CARE TREATMENT INSTR Power of Steward/Stewardess Bath 08/13/2009 12:00 AM DOMONIQUE R OF DIRECTOR OF ENTERPRISE ARCHITECTURE DURABLE HEALTH CARE POA Advanced Directive service a mike default Advanced Directive Advanced Directive Advanced Directive Advanced Directive Advanced Directive Advanced Directive Advanced Directive Advanced Directive Advanced Directive Advanced Directive Advanced Directive Advanced Directive 09/01/2016 8:20 AM Advanced Directive"
--- OUTSIDE RECORDS SUMMARY | 2023-01-22 22:58 | External Medical Summary ---
Author Name Unknown Address [address] [facility] [place] [address] Phone Organization K0G:CAROLYNE Jin [address] [place] [address] Laboratory Report Ordering Provider Test Date Status SRINI RUCKER 04/04/2019 10:11:00 Final Observation Date Value Abnormality Reference Status Fasting status Patient Ql Reported 04/04/2019 10:13 >8 HOURS Final Triglyceride 04/04/2019 19:19 110 0-174 Final Performing Location CAROLYNE Jin [address] [address]
--- OUTSIDE RECORDS SUMMARY | 2023-01-22 22:58 | External Medical Summary | Summary of Care ---
Author Name Unknown Organization [place] [address] Care Team Providers Care Logistics/Shipper Name Role Phone Nhi Florian DO Primary Care Provider [phone] Reason for Visit * Reason Comments eRx-Medication Refill Encounter Details Date Type Department Care Team Description 08/11/2019 Refill Family Practice [facility] [address] [place] [address] Nhi Florian DO [address] [facility] [place] [address] [phone] Dyslipidemia, goal LDL below 70 Allergies No Known Allergiesdocumented as of this encounter (statuses as of 08/12/2019) Medications Medication Sig Dispensed Refills Start Date [...] at bedtime. 90 Tab 3 02/05/2019 Active traMADol (ULTRAM) 50 MG Tablet [...] metoprolol succinate XL (TOPROL XL) 25 MG [id number]:Chr onic ischemic heart disease Take 0.5 Tabs by mouth daily. 45 Tab 3 03/20/2019 Active rosuvastatin (CRESTOR) 20 MG TabletIndications:D yslipidemia, goal LDL below 70 take 1 tablet by mouth once daily 90 Tab 1 08/12/2019 Active rosuvastatin (CRESTOR) 20 MG TabletIndications:D yslipidemia, goal LDL below 70 Take 1 Tab by mouth daily. 90 Tab 1 02/05/2019 08/12/2019 Discontinued documented as of this encounter (statuses as of 08/12/2019) Active Problems Problem Noted Date Benign hypertension with CKD (chronic ki dney disease) stage III 09/06/2017 History of deep vein thrombosis (DVT) of lower extremity 09/08/2016 Status post insertion of drug eluting co ronary artery stent 04/07/2015 Overview: 2009, DUS placed in the mid RCA at [facility] Asymptomatic bilateral carotid artery st enosis 06/10/2014 Raynaud phenomenon 06/13/2011 Knee joint replacement status 01/13/2011 Overview: 2014, right Dr Ricardo [facility] 2011: left Dr Priya Ricardo [facility] Dyslipidemia, goal LDL below 70 09/21/19 11 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 neurogenic claudication 02/17/2010 Vitamin D deficiency 10/13/2009 Chronic ischemic heart disease 0 S/P angioplasty with stent 06/30/2009 Overview: 07/01/2009 DUS in the RCA at [facility] Non-toxic multinodular goiter 04/21/2009 Overview: [...] as of this encounter (statuses as of 08/12/2019) Resolved Problems Problem Noted Date Resolved Date [...] as of this encounter (statuses as of 08/12/2019) Immunizations Name Administration Dates Next Due Pneumococcal [...] encounter Miscellaneous Notes * Telephone Encounter - Sadaf Schmidt RPh - 08/12/2019 11:15 AM EDT Signed Prescriptions: Disp Refills rosuvastatin (CRESTOR) 20 MG Tablet 90 Tab 1 Sig: take 1 tablet by mouth once dailyAuthorizing Provider: NHI FLORIAN User: SADAF SCHMIDT------- documented in this encounter Plan of Treatment Upcoming Encounters Date Type Specialty Care Team Description 09/23/2019 Office Visit Family Medicine Nhi Florian, [address] [facility] [place] [address] [phone] 10/03/2019 Office Visit Cardiology Yvon Harris PA-C [address] [facility] [place] [address] [phone] Health Maintenance Due Date Last Done Comments Zoster Vaccines (2 of 3) 08/06/2008 06/11/2008 CKD GFR USE SMARTSET 88529 01/13/202007/15, 03/20/2019, 08/13/2018, Additional history exists CKD HGB USE SMARTSET 83571 04/04/202004/04, 08/13/2018, 02/14/2018, Additional history exists CKD PHOS USE SMARTSET 80190 07/15/202006/23, 08/13/2018, 01/09/2017, Additional history exists DXA-SCREENING [...] Documents on File Type Date Recorded 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 Advance Directives and Living Will 08/13/2009 12:00 AM LIVING WILL Power of Liquor Commissioner 08/13/2009 12:00 AM DOMONIQUE Madsen OF [employer] DURABLE HEALTH POA AND HEALTH CARE TREATMENT INSTR Power of Liquor Commissioner 08/13/2009 12:00 AM DOMONIQUE Madsen OF [employer] DURABLE HEALTH CARE POA Advanced Directive service a mike default Advanced Directive Advanced Directive Advanced Directive Advanced Directive Advanced Directive Advanced Directive Advanced Directive Advanced Directive Advanced Directive Advanced Directive Advanced Directive Advanced Directive 09/01/2016 8:20 AM Advanced Directive Advanced Directive
--- OUTSIDE RECORDS SUMMARY | 2023-01-22 22:58 | External Medical Summary | Summary of Care ---
Author Name Unknown Organization [place] [address] Care Team Providers Care Talent Acquisition Director Name Role Phone Bj Mario Primary Care Provider [phone] Reason for Visit * Reason Comments Follow Up 6 month return Encounter Details Date Type Department Care Team Description 04/04/2019 Office Visit Cardiology, [facility] [address] [facility] [place] [address] Yvon Harris PA-C [address] [facility] [place] [address] [phone] Chronic ischemic heart disease*; Dyslipidemia, goal LDL [...] metoprolol succinate XL (TOPROL XL) 25 MG [id number]:Chronic ischemic heart disease Take 0.5 Tabs by [...] here today for cardiology evaluation. Hospitalized at [facility] in July 2018 with acute [...] systolic function, EF 55%. Patient hospitalized at [facility] in June 2012 at which [...] TTE was interpreted by Dr. Kidd at [facility] on September 02, 2016 as [...] replacement status 01/13/[address] Priya Ricardo [facility] Knee joint replacement status 12/15/2013 right [facility] Macular degeneration Ugo Heimer, MD Menopause 1974 Need for prophylactic hormone replacement therapy (postmenopausal) 1974 Non-toxic multinodular goiter 04/2009 seen on US, repeat Other screening mammogram 10/24/03 Birad Code 2 Other specified glaucoma both eyes, Paul Simon MD, drops used, timolol S/P angioplasty with stent 06/30/09 [facility] Status post insertion of drug eluting coronary artery stent 04/07/20152009, DUS placed in the mid RCA at [facility] Vitamin D deficiency 10/13/2009 Past Surgical History: Procedure Laterality Date ARTHROPLASTY KNEE TOTAL Left 01/13/2011 Left, Dr Priya Ricardo [facility] ARTHROPLASTY KNEE TOTAL Right 12/16/13 Right, Dr Priya Ricardo [facility] CARDIAC CATH SCANNED RESULT 06/30/2009 DUS placed in right coronary, [facility] CARPAL TUNNEL SURGERY Bilateral 2014 bilateral COLONOSCOPY 03/22/2006 normal repeat in 2015 COLONOSCOPY, DIAGNOSTIC (RECTUM) 09/01/2016 diverticulosis/COLONOSCOPY FLEXIBLE PROXIMAL DIAGNOSTIC performed by Kaylie Ford MD at ENDOSCOPY [facility] COLONOSCOPY, DIAGNOSTIC (RECTUM) 10/09/2018 diverticulosis/[facility] COLONOSCOPY, GI REFERRAL OP 03/22/2005 diverticulosis, repeat in 10 years for surveillance reasons COLORECTAL CANCER SCREEN;W/FLE 1999 normal, Dr Estrella DENTAL SURGERY PROCEDURE NEC 1970 Dental Surgery Procedure tumor benign palate DEXA SCAN/BONE MINERAL AXIAL 07/2002 normal, repeat 2007 DEXA SCAN/BONE MINERAL AXIAL 07/20/2006 normal repeat in 6-8 years EGD, FLEXIBLE, DIAGNOSTIC 01/30/2019 acid reflux, Schatzki ring, hiatal hernia / [facility] EXERCISE ECHO 09/02/2002 normal, Dr Genao INJECT DX/THER SUBSTANCE INTERLAMINAR LUMBAR/SACRAL W IMAGE GUIDE 01/18/2018 INJECTION SPINE LUMBAR OR SACRAL performed by Wayland Azam Kimsins, DO at OR [facility] INJECT DX/THER SUBSTANCE INTERLAMINAR LUMBAR/SACRAL W IMAGE GUIDE 02/12/2018 INJECTION SPINE LUMBAR OR SACRAL performed by [facility] Juliosins, DO at OR [facility] INJECT DX/THER SUBSTANCE INTERLAMINAR LUMBAR/SACRAL W IMAGE GUIDE 12/27/2018 INJECTION SPINE LUMBAR OR SACRAL performed by [facility] Juliosins, DO at OR [facility] INJECT DX/THER SUBSTANCE INTERLAMINAR LUMBAR/SACRAL W IMAGE GUIDE 02/21/2019 INJECTION SPINE LUMBAR OR SACRAL performed by Paul B Cousins, DO at OR [facility] MAMMOGRAM - BILATERAL 2.1.02 negative finding. [...] one ovary left in, Dr Chakraborty in [facility] REMOVE CATARACT, INSERT LENS PROSTH Right 01/05/[address] Messi Simon REMOVE CATARACT, INSERT LENS PROSTH Left 01/28/[address] Messi Simon STENT, COATED/COVERED, WITH DELIVERY SYSTEM 06/30/2009 [employer] Drug Eluding Stent [facility] TOTAL HIP REPLACEMENT & PROSTHESIS 1992 left, Dr Ricardo TOTAL HIP REPLACEMENT & PROSTHESIS 10/2000 right , Dr Ricardo at [facility] Family History Problem Relation Age of Onset Cancer Mother cancer of bone Lung Disorder Father old age with heart failure Heart Disorder Brother [place] at age 62 Heart Disorder Brother angina [...] file Gets together: Not on file Attends restorationist service: Not on file Active member of [...] Social History Narrative born [place] [facility] since 1953 ; 3 healthy children; [...] encounter Miscellaneous Notes * Result QuickNote - Wood, Loretta L, RN - 04/08/2019 8:55 AM EST Letter sent. 04/08/2019 * Result Yvon Kirkpatrick PA-C - 04/05/2019 7:57 AM EST ok documented in this encounter Plan of Treatment Upcoming Encounters Date Type Specialty Care Team Description 09/23/2019 Office Visit Family Medicine Bj Mario, DO [address] [facility] [address] [phone] 10/03/2019 Office Visit Cardiology Yvon Harris PA-C [address] [facility] [place] [address] [phone] Health Maintenance Due Date Last Done Comments CKD PHOS USE SMARTSET 93675 08/14/201907/21, 01/09/2017, 04/11/2016, Additional history exists CKD GFR USE SMARTSET 92174 09/19/201903/20, 08/13/2018, 03/08/2018, Additional history exists CKD HGB USE SMARTSET 45950 04/04/202004/04, 08/13/2018, 02/14/2018, Additional history exists DXA-SCREENING [...] EST) TSH 2.29 0.27 - 4.2 uIU/mL [facility] FREE T4 REFLEXIVE NOT APPLICABLE 0.9 - 1.7 ng/dL [facility] Specimen Performing Organization Address City/State/Zipcod e Phone Number [facility], [address] [place] [address] * LIPID PANEL WITH DIRECT LDL IF TRIGLYCERIDE IS ELEVATED (04/04/2019 10:11 AM EST) HOURS FASTING >8 HOURS hours SINDY HEBERT TRIGLYCERIDES 110 Comment: Triglyceride Reference Ranges (mg/dL) <150 Acceptable 150-174 Borderline high 175-499 High >=500 Very high 0 - 174 mg/dL [facility] CHOLESTEROL 137 Comment: Total Cholesterol Reference Ranges (mg/dL) <200 Desirable 200-239 Borderline high >=240 High <200 mg/dL [facility] HDL 56 Comment: HDL Cholesterol Reference Ranges (mg/dL) >=60 High (Desirable) <50 Low (Undesirable) For Females <40 Low (Undesirable) For Males >49 mg/dL [facility] NON-HDL CHOLESTEROL 81 Comment: Non-HDL Cholesterol Reference Range (mg/dL) <100 Target level for high risk ASCVD patient <130 Optimal for general population 130-159 Near optimal for general population 160-189 Borderline High 190-219 High >=220 Very High 0 - 159 mg/dL [facility] LDL (CALCULATED) 59 Comment: LDL Cholesterol Reference Ranges (mg/dL) <70 Target level for high risk ASCVD patient <100 Optimal for general population 100-129 Near optimal for general population 130-159 Borderline high 160-189 High >=190 Very high 0 - 129 mg/dL [facility] LDL DIRECT(REFLEX) NOT APPLICABLE 0 - 129 mg/dL [facility] Specimen Performing Organization Address City/[facility] Phone Number [facility], [address] [facility] [place] [address] SINDY Callahan [facility], [address] [facility] [address] * CBC (04/04/2019 10:11 AM EST) WBC 6.93 4.00 - 10.80 K/uL S[facility]Y WOOD [facility] B ROOM RBC 4.13 3.85 - 5.15 M/uL [facility] WO[facility] RO[facility] HGB 12.5 12.0 - 15.3 g/dL [facility]INDY ENCINO [facility] ROOM HCT 38.9 36.0 - 45.2 % SINDY BAILON LT PHLEB RO OM MCV 94.2 81.5 - 97.5 fL SINDY ENCINO LT PHLEB R OOM MCH 30.3 27.0 - 34.0 pg SINDY ENCINO LT PHLEB R OOM MCHC 32.1 32.0 - 36.0 g/dL SINDY ENCINO LT [facility]LEB ROOM RDW 13.1 11.5 - 15.5 % SINDY WOOD LT PHLEB RO OM PLATELET COUNT 273 140 - 400 K/uL SINDY ADAMARIS LT PHL EB ROOM MPV 9.6 6.6 - 11.1 fL SINDY ADAMARIS LT PHLEB RO OM Specimen Performing Organization Address City/[facility] Phone Number SINDY ENCINO LT PHLEB ROOM Sindy [place] Lt Phle[facility] Room, [address] [place] [address] documented in this encounter Visit Diagnoses Diagnosis [...] Documents on File Type Date Recorded 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 Advance Directives and Living Will 08/13/2009 12:00 AM LIVING WILL Power of Director Of Event Management 08/13/2009 12:00 AM DOMONIQUE Madsen OF UNIT CONTROL WORKER DURABLE HEALTH POA AND HEALTH CARE TREATMENT INSTR Power of Director Of Event Management 08/13/2009 12:00 AM DOMONIQUE Madsen OF UNIT CONTROL WORKER DURABLE HEALTH CARE POA Advanced Directive service a mike default Advanced Directive Advanced Directive Advanced Directive Advanced Directive Advanced Directive Advanced Directive Advanced Directive Advanced Directive Advanced Directive Advanced Directive Advanced Directive Advanced Directive 09/01/2016 8:20 AM Advanced Directive
--- OUTSIDE RECORDS SUMMARY | 2023-01-22 22:58 | External Medical Summary ---
Author Name Unknown Address [address] [facility] [place] [address] Phone Organization K0G:[facility] [email or web address] [address] [facility] [place] [address] Laboratory Report Ordering Provider Test Date Status KENNETH HANKINSDANILO 07/15/2019 10:41:00 Final Observation Date Value Abnormality Reference (Units ) Status Creatinine 07/15/2019 12:18 1.3 Above high normal 0.5- 1.0 (mg/dL) Final E Glom Filt Rate 07/15/2019 12:18 39.5 Below low normal >60 Final Performing Location [facility] [email or web address] [address] [place] [address]
--- OUTSIDE RECORDS SUMMARY | 2023-01-22 22:58 | External Medical Summary ---
Author Name Unknown Address [address] [facility] [place] [address] Phone Organization K0G:Talha Jin [address] [facility] [place] [address] Laboratory Report Ordering Provider Test Date Status ANIVAL HANKINS 07/15/2019 10:41:00 Final Observation Date Value Abnormality Reference (Units ) Status Phosphate 07/15/2019 12:18 3.6 2.5-4.8 (mg/d L) Final Performing Location [facility] Sindy Jin [address] [facility] [place] [address]
--- OUTSIDE RECORDS SUMMARY | 2023-01-22 22:59 | External Medical Summary | Summary of Care ---
Author Name Unknown Organization [place] [address] Care Team Providers Care Hiv Prevention Specialist Name Role Phone Bj Mario Primary Care Provider [phone] Encounter Details Date Type Department Care Team Description 03/21/2019 Telephone Interventional Pain Center, [facility] [address] [place] [address] CouPaul gillespie [address] [place] [address] [phone] Allergies No Known Allergiesdocumented as of this encounter (statuses as of 03/21/2019) Medications Medication Sig Dispensed Refills Start Date [...] 0 02/19/2019 Active cyclobenzaprine (FLEXERIL) 5 MG Tablet Take 1 Tab by mouth 2 times a day as needed for Muscle spasms. 60 Tab 5 03/20/2019 Active famotidine (PEPCID) 20 MG TabletIndications:Juan roesophageal reflux disease without esophagitis Take 1 Tab by mouth 2 times a day. 60 Tab 11 03/20/2019 Active amoxicillin-clavulanat e (AUGMENTIN) 875-125 MG per TabletIndications:Acut e maxillary sinusitis, recurrence not specified Take 1 Tab by mouth 2 times a day for 7 days. 14 Tab 0 03/20/2019 03/27/2019 Active zoster vac recomb adjuvanted (SHINGRIX) 50 MCG/0.5ML injection Inject 0.5 mL into a large muscle now and repeat dose in 60 to 180 days. Please fax date this was given to our office. 1 Each 1 03/20/2019 Active metoprolol succinate XL (TOPROL XL) 25 MG [id number]:Chroni c ischemic heart disease Take 0.5 Tabs by mouth daily. 45 Tab 3 03/20/2019 Active documented as of this encounter (statuses as of 03/21/2019) Active Problems Problem Noted Date Benign hypertension [...] 06/13/2011 Knee joint replacement status 01/13/2011 Overview: 2013, right Dr Ricardo [facility] 2011: left Dr Priya Ricardo [facility] Dyslipidemia, goal LDL below 70 09/21/19 11 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 neurogenic claudication 02/17/2010 Vitamin D deficiency 10/13/2009 Chronic ischemic heart disease 03/29/201 0 S/P angioplasty with stent 06/30/2009 Overview: [...] as of this encounter (statuses as of 03/21/2019) Resolved Problems Problem Noted Date Resolved Date [...] as of this encounter (statuses as of 03/21/2019) Immunizations Name Administration Dates Next Due Pneumococcal [...] Telephone Encounter - Paul Berg DO - 03/21/2019 11:32 AM EDT That was her second injection since December. I can see her in the office and determine if there is anything else I can pursue. But need to wait on more JACKIE for at least another couple of months. * Telephone Encounter - Lorri Gotti LPN - 03/21/2019 10:44 AM EDT Patient reports 50% improvement, still having low back pain, worse on L side Currently on muscle relaxant from pcp, wanted you to be aware. documented in this encounter Plan of Treatment Upcoming Encounters Date Type Specialty Care Team Description 04/04/2019 Office Visit Cardiology Yvon Harris PA-C [address] [facility] [place] [address] [phone] 09/23/2019 Office Visit Family Medicine Bj Mario DO [address] [place] [address] [phone] Health Maintenance Due Date Last Done Comments CKD HGB USE SMARTSET 91630 08/14/201908/13, 02/14/2018, 07/25/2016, Additional history exists CKD PHOS USE SMARTSET 51786 08/14/201907/21, 01/09/2017, 04/11/2016, Additional history exists CKD GFR USE SMARTSET 51297 09/19/201903/20, 08/13/2018, 03/08/2018, Additional history exists DXA-SCREENING EVERY 7 YRS-USE [...] Documents on File Type Date Recorded 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 Law 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 Expl anation Advance Directives and Living Will 08/13/2009 12:00 AM LIVING WILL Power of Key Account Representative 08/13/2009 12:00 AM DOMONIQUE Madsen OF [employer] [place] DURABLE HEALTH POA AND HEALTH CARE TREATMENT INSTR Power of Key Account Representative 08/13/2009 12:00 AM DOMONIQUE Madsen OF [employer] DURABLE HEALTH CARE POA Advanced Directive service a mike default Advanced Directive Advanced Directive Advanced Directive Advanced Directive Advanced Directive Advanced Directive Advanced Directive Advanced Directive Advanced Directive Advanced Directive Advanced Directive Advanced Directive 09/01/2016 8:20 AM Advanced Directive
--- OUTSIDE RECORDS SUMMARY | 2023-01-22 22:59 | External Medical Summary | Summary of Care ---
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 90 Tab 3 02/05/2019 Active metoprolol succinate XL (TOPROL XL) 25 MG [id number]:Chr onic ischemic heart disease Take 0.5 Tabs by mouth daily. 45 Tab 3 02/05/2019 Active rOPINIRole (REQUIP) 0.25 MG TabletIndications:R estless legs syndrome Take 1 Tab by mouth at bedtime. 90 Tab 3 02/05/2019 Active rosuvastatin (CRESTOR) 20 MG TabletIndications:D yslipidemia, goal LDL below 70 Take 1 Tab by mouth daily. 90 Tab 1 02/05/2019 Active pantoprazole (PROTONIX) 40 MG TBECIndications:Gas troesophageal reflux disease without esophagitis Take 1 Tab by mouth daily. 90 Tab 3 02/05/2019 Active metoprolol succinate XL (TOPROL XL) 25 MG [id number]:Chr onic ischemic heart disease take 1/2 tablet once daily 31 Tab 5 05/10/2018 02/05/2019 Discontinued lisinopril (PRINIVIL) 10 MG TabletIndications:B enign hypertension with CKD (chronic kidney disease) stage III (HCC),Edema take 1 tablet by mouth once daily 30 Tab 5 08/31/2018 02/05/2019 Discontinued rOPINIRole (REQUIP) 0.25 MG TabletIndications:R estless legs syndrome take 1 tablet by mouth at bedtime 30 Tab 5 09/10/2018 02/05/2019 Discontinued rosuvastatin (CRESTOR) 20 MG TabletIndications:D yslipidemia, goal LDL below 70 take 1 tablet by mouth once daily 30 Tab 11 11/15/2018 02/05/2019 Discontinued pantoprazole (PROTONIX) 40 MG TBECIndications:Gas troesophageal reflux disease without esophagitis Take 1 Tab by mouth daily. 30 Tab 5 12/06/2018 02/05/2019 Discontinued documented as of this encounter (statuses as of 02/13/2019) Active Problems Problem Noted Date Benign hypertension with CKD (chronic ki dney disease) stage III 09/06/2017 History of deep vein thrombosis (DVT) of lower extremity 09/08/2016 Status post insertion of drug eluting co ronary artery stent 04/07/2015 Overview: 2009, DUS placed in the mid RCA at [facility] Asymptomatic bilateral carotid artery st enosis 06/10/2014 Raynaud phenomenon 06/13/2011 Knee joint replacement status 01/13/2011 Overview: 2014, right Dr Ricardo [facility] 2011: left Dr Priya Ricardo [facility] Dyslipidemia, goal LDL below 70 09/21/19 11 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 neurogenic claudication 02/17/2010 Vitamin D deficiency 10/13/2009 Chronic ischemic heart disease 0 S/P angioplasty with stent 06/30/2009 Overview: 07/01/2009 DUS in the RCA at [facility] Non-toxic multinodular goiter 04/21/2009 Overview: [...] as of this encounter (statuses as of 02/13/2019) Resolved Problems Problem Noted Date Resolved Date [...] as of this encounter (statuses as of 02/13/2019) Immunizations Name Administration Dates Next Due Pneumococcal Conjugate Vacc, 13 Valent (Prevnar) 09/22/2014 Pneumococcal Polysaccharide PPV23 (Pneumovax) 03/12/2002 Seasonal Influenza, Quadriva lent, No Preserve, 6 Mons & Above, IM 03/14/2018,03/23/2017 Seasonal Influenza, Quadriva lent, No Preserve, IM 04/11/2016,04/06/2015 Seasonal Influenza, Trivalen t, with Preserve, 3yr [...] * Telephone Encounter - Nhi Florian, - 02/05/2019 1:19 PM EDT Signed Prescriptions: Disp Refills lisinopril (PRINIVIL) 10 MG Tablet 90 Tab 3 Sig: Take 1 Tab by mouth daily. Authorizing Provider: NHI FLORIAN metoprolol succinate XL (TOPROL XL) 25 MG *45 Tab 3 Sig: Take 0.5 Tabs by mouth daily. Authorizing Provider: NHI FLORIAN rOPINIRole (REQUIP) 0.25 MG Tablet 90 Tab 3 Sig: Take 1 Tab by mouth at bedtime. Authorizing Provider: NHI FLORIAN rosuvastatin (CRESTOR) 20 MG Tablet 90 Tab 1 Sig: Take 1 Tab by mouth daily. Authorizing Provider: NHI FLORIAN pantoprazole (PROTONIX) 40 MG TBEC 90 Tab 3 Sig: Take 1 Tab by mouth daily. Authorizing Provider: NHI FLORIAN * Telephone Encounter - Rona Villa LPN - 02/05/2019 10:58 AM EDT Needs 90 day supply per insurance documented in this encounter Plan of Treatment Upcoming Encounters Date Type Specialty Care Team Description 02/21/2019 Hospital Encounter Surgery Paul Berg, [address] [place] [address] [phone] 02/21/2019 Surgery Surgery Paul Berg, [address] [place] [address] [phone] INJECTION SPINE LUMBAR OR SACRAL 03/20/2019 Office Visit Family Medicine Nhi Florian DO [address] [facility] [place] [address] [phone] 04/04/2019 Office Visit Cardiology Yvon Harris PA-C [address] [place] [address] [phone] Health Maintenance Due Date Last Done Comments Influenza Vaccine (FLU shot) (#1) 2019 03/14/2018, 03/23/2017, 04/11/2016, Additional history exists CKD GFR USE SMARTSET 82384 02/13/201908/13, 03/08/2018, 02/14/2018, Additional history exists CKD HGB USE SMARTSET 59827 08/14/201908/13, 02/14/2018, 07/25/2016, Additional history exists CKD PHOS USE SMARTSET 85900 08/14/201907/21, 01/09/2017, 04/11/2016, Additional history exists DXA-SCREENING EVERY 7 YRS-USE SMARTSET# 3348 TO ORDER 10/30/2020 10/30/2013, 10/30/2013, 08/24/2009, Additional history exists DIABETES SCREEN EVERY 3 YRS-AGE 45 AND ABOVE 08/13/2021 08/13/2018, 03/08/2018, 02/14/2018, Additional history exists DTaP,Tdap,and Td Vaccines (2 - Td) 08/28/2028 08/28/2018, 04/21/2012, 04/28/2008 Pneumococcal Vaccine: 65+ Years Completed 09/22/2014, 03/12/2002 MENINGOCOCCAL (MENACTRA) Aged Out No longer eligible based on patient's age to complete this topic documented as of this encounter Implants Not on filedocumented as of this encounter Visit Diagnoses Diagnosis 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 I through stage IV, or unspecified Edema CHR ISCHEMIC HRT DIS NOS Chronic ischemic heart disease, unspecified Restless legs syndrome Restless legs syndrome (RLS) Dyslipidemia, goal LDL below 70 Other and unspecified hyperlipidemia Gastroesophageal reflux disease without esophagitis Esophageal reflux documented in this encounter Advance Directives Documents on File Type Date Recorded Patient Headmaster/Mistress Expl anation Advance Directives and Living Will 08/13/2009 12:00 AM LIVING WILL Power of Coating Machine Operator 08/13/2009 12:00 AM DOMONIQUE R OF PMP PROJECT MANAGER DURABLE HEALTH POA AND HEALTH CARE TREATMENT INSTR Power of Coating Machine Operator 08/13/2009 12:00 AM DOMONIQUE R OF PMP PROJECT MANAGER DURABLE HEALTH CARE POA Advanced Directive service a mike default Advanced Directive Advanced Directive Advanced Directive Advanced Directive Advanced Directive Advanced Directive Advanced Directive Advanced Directive Advanced Directive Advanced Directive Advanced Directive Advanced Directive 09/01/2016 8:20 AM
--- OUTSIDE RECORDS SUMMARY | 2023-01-22 22:59 | External Medical Summary ---
Author Name Unknown Address [address] [place] [address] Phone Organization K09:[facility] [address] [place] [address] Laboratory Report Ordering Provider Test Date Status ANIVAL HANKINS 03/20/2019 10:11:00 Final Observation Date Value Abnormality Reference Status BUN 03/20/2019 11:38 21 Above high normal 6-20 Final Creatinine 03/20/2019 11:38 1.2 Above high normal 0.5- 1.0 Final Performing Location [facility] [place] [address] [place] [address]
--- OUTSIDE RECORDS SUMMARY | 2023-01-22 22:59 | External Medical Summary | Summary of Care ---
Author Name Unknown Organization [place] [address] Care Team Providers Care Linoleum Floor Installer Name Role Phone Bj Mario DO Primary Care Provider [phone] Reason for Visit * Reason Comments Advice Encounter Details Date Type Department Care Team Description 02/19/2019 Telephone Family Practice [facility] [address] [place] [address] Bj Mario DO [address] [place] [address] [phone] Advice Allergies No Known Allergiesdocumented as of this encounter (statuses as of 02/21/2019) Medications Medication Sig Dispensed Refills Start Date [...] metoprolol succinate XL (TOPROL XL) 25 MG [id number]:Chronic ischemic heart disease Take 0.5 Tabs by mouth daily. 45 Tab 3 02/05/2019 Active rOPINIRole (REQUIP) 0.25 MG TabletIndications:Restl ess legs syndrome Take 1 Tab by mouth at bedtime. 90 Tab 3 02/05/2019 Active rosuvastatin (CRESTOR) 20 MG TabletIndications:Dysli pidemia, goal LDL below 70 Take 1 Tab by mouth daily. 90 Tab 1 02/05/2019 Active pantoprazole (PROTONIX) 40 MG TBECIndications:Gastroe sophageal reflux disease without esophagitis Take 1 Tab by mouth daily. 90 Tab 3 02/05/2019 Active traMADol (ULTRAM) 50 MG Tablet Take 1 Tab by mouth daily as needed for Pain, Severe. 30 Tab 0 02/19/2019 Active documented as of this encounter (statuses as of 02/21/2019) Active Problems Problem Noted Date Benign hypertension [...] status 01/13/2011 Overview: 2013, right [facility] Ricardo [facility] [...] as of this encounter (statuses as of 02/21/2019) Resolved Problems Problem Noted Date Resolved Date [...] as of this encounter (statuses as of 02/21/2019) Immunizations Name Administration Dates Next Due Pneumococcal [...] encounter Miscellaneous Notes * Telephone Encounter - Billy Overton LPN - 02/21/2019 1:23 PM EDT Patient has been informed of below message and verbalized understanding. Pt states that she had a shot in her back this morning for the pain. Pt states that she picked up Tramadol Rx yesterday, but was only given 7 tabs. Pt states that she uses medication sparingly. * Telephone Encounter - Franny Holguin OSA - 02/21/2019 1:19 PM EDT Reason for patient's call: patient returning call Caller was transferred to [facility] at the nurse line. * Telephone Encounter - Katia Villa LPN - 02/21/2019 12:43 PM EDT left a message for patient (or parent) to return call to triage regarding message. * Telephone Encounter - Jannette Reyes LPN - 02/19/2019 3:27 PM EDT left message for patient to call back. * Telephone Encounter - Bj Mario DO - 02/19/2019 2:47 PM EDT Please call: I sent for tramadol for her to use but I would like her to use it as sparingly as possible. * Telephone Encounter - Socroro Aguilar LPN - 02/19/2019 2:14 PM EDT Pt states that she has been getting injections in her back for the pain and its not helping for anylonger than a few weeks. She states that Dr. Berg is aware and has told her that there are otheroptions. She states that she is just about ready to pursue those. Her next appt with Dr. Berg is02/21. She is requesting to go back on her tramadol at this time and would like to know if that is an option. Pharm selected. Please advise. * Telephone Encounter - Rona Solorzano OSA - 02/19/2019 2:11 PM EDT Reason for patient's call: Medication question Caller was transferred to [facility] at the nurse line. documented in this encounter Plan of Treatment Upcoming Encounters Date Type Specialty Care Team Description 03/20/2019 Office Visit Family Medicine Bj Mario, DO [address] [place] [address] [phone] 04/04/2019 Office Visit Cardiology Yvon Harris PA-C [address] [facility] [place] [address] [phone] Health Maintenance Due Date Last Done Comments Influenza Vaccine (FLU shot) (#1) 2019 03/14/2018, 03/23/2017, 04/11/2016, Additional history exists CKD GFR USE SMARTSET 20831 02/13/201908/13, 03/08/2018, 02/14/2018, Additional history exists CKD HGB USE SMARTSET 58605 08/14/201908/13, 02/14/2018, 07/25/2016, Additional history exists CKD PHOS USE SMARTSET 04610 08/14/201907/21, 01/09/2017, 04/11/2016, Additional history exists DXA-SCREENING [...] Documents on File Type Date Recorded Patient Photographer Lithographic Expl anation Advance Directives and Living Will 08/13/2009 12:00 AM LIVING WILL Power of Biochemical Engineer 08/13/2009 12:00 AM DOMONIQUE R OF SHANK PINNER DURABLE HEALTH POA AND HEALTH CARE TREATMENT INSTR Power of Biochemical Engineer 08/13/2009 12:00 AM DOMONIQUE R OF SHANK PINNER DURABLE HEALTH CARE POA Advanced Directive service a mike default Advanced Directive Advanced Directive Advanced Directive Advanced Directive Advanced Directive Advanced Directive Advanced Directive Advanced Directive Advanced Directive Advanced Directive Advanced Directive Advanced Directive 09/01/2016 8:20 AM
--- OUTSIDE RECORDS SUMMARY | 2023-01-22 22:59 | External Medical Summary | Summary of Care ---
Author Name Unknown Organization [place] [address] Care Team Providers Care Wellness Ambassador Name Role Phone Bj Mario Primary Care Provider [phone] Reason for Visit * Reason Comments Appointment Encounter Details Date Type Department Care Team Description 02/13/2019 Telephone Interventional Pain Center, [facility] [address] [place] [address] Paul Berg [address] [place] [address] [phone] Appointment Allergies No Known Allergiesdocumented as of this [...] Pain. 0 Active lisinopril (PRINIVIL) 10 MG TabletIndications:Rick manning hypertension with CKD (chronic kidney disease) stage III (HCC),Edema Take 1 Tab by mouth daily. 90 Tab 3 02/05/2019 Active metoprolol succinate XL (TOPROL XL) 25 MG [id number]:Chronic ischemic heart disease Take 0.5 Tabs by [...] mouth daily. 90 Tab 3 02/05/2019 Active documented as of this encounter (statuses [...] status 01/13/2011 Overview: 2013, right [facility] Ric[facility] [...] encounter Miscellaneous Notes * Telephone Encounter - Jagdeep Carter OSA - 02/13/2019 9:03 AM EDT Pt is asking to get another injection in her back. documented in this encounter Plan of Treatment Upcoming Encounters Date Type Specialty Care Team Description 02/21/2019 Hospital Encounter Surgery Paul Berg, DO [address] [place] [address] [phone] 02/21/2019 Surgery Surgery Paul Berg, DO [address] [place] [address] [phone] INJECTION SPINE LUMBAR OR SACRAL 03/20/2019 Office Visit Family Medicine Bj Mario, DO [address] [facility] [address] [phone] 04/04/2019 Office Visit Cardiology Yvon Harris PA-C [address] [place] [address] [phone] Scheduled Orders Name Type Priority Associated Diagnoses Orde r Schedule INJECT DX/THER SUBSTANCE INTERLAMINAR LUMBAR/SACRAL W IMAGE GUIDE Procedures Routine Spinal stenosis of lumbar region with neurogenic claudication Ordered: 02/13/2019 Health Maintenance Due Date Last Done Comments Influenza Vaccine (FLU shot) (#1) 2019 03/14/2018, 03/23/2017, 04/11/2016, Additional history exists CKD GFR USE SMARTSET 06304 02/13/201908/13, 03/08/2018, 02/14/2018, Additional history exists CKD HGB USE SMARTSET 03106 08/14/201908/13, 02/14/2018, 07/25/2016, Additional history exists CKD PHOS USE SMARTSET 96582 08/14/201907/21, 01/09/2017, 04/11/2016, Additional history exists DXA-SCREENING [...] with neurogenic claudication documented in this encounter Advance Directives Documents on File Type Date Recorded Patient Photoengraving Retoucher Expl anation Advance Directives and Living Will 08/13/2009 12:00 AM LIVING WILL Power of Cloth Mercerizing Supervisor 08/13/2009 12:00 AM DOMONIQUE R OF FURNACE COMBUSTION TESTER DURABLE HEALTH POA AND HEALTH CARE TREATMENT INSTR Power of Cloth Mercerizing Supervisor 08/13/2009 12:00 AM DOMONIQUE R OF FURNACE COMBUSTION TESTER DURABLE HEALTH CARE POA Advanced Directive service a mike default Advanced Directive Advanced Directive Advanced Directive Advanced Directive Advanced Directive Advanced Directive Advanced Directive Advanced Directive Advanced Directive Advanced Directive Advanced Directive Advanced Directive 09/01/2016 8:20 AM
--- OUTSIDE RECORDS SUMMARY | 2023-01-22 22:59 | External Medical Summary | Summary of Care ---
Author Name Unknown Organization [place] [address] Care Team Providers Care Technical Project Manager Name Role Phone Bj Mario Primary Care Provider [phone] Encounter Details Date Type Department Care Team Description 01/30/2019 Result Scan Gastroenterology, [facility] [address] [place] [address] Alo Jean MD [address] [place] [address] [phone] <No scans attached> Allergies No Known Allergiesdocumented as of this [...] hours as needed for Pain. 0 Active metoprolol succinate XL (TOPROL XL) 25 MG [id number]:Chr onic ischemic heart disease take 1/2 tablet [...] status 01/13/2011 Overview: 2013, right [facility] [...] Travel End documented as of this encounter Plan of Treatment Upcoming Encounters Date Type Specialty Care Team Description 03/20/2019 Office Visit Family Medicine Bj Mario, DO [address] [facility] [place] [address] [phone] 04/04/2019 Office Visit Cardiology Yvon Harris PA-C [address] [place] [address] [phone] Health Maintenance Due Date Last Done Comments Influenza Vaccine (FLU shot) (#1) 2019 03/14/2018, 03/23/2017, 04/11/2016, Additional history exists CKD GFR USE SMARTSET 47177 02/13/201908/13, 03/08/2018, 02/14/2018, Additional history exists CKD HGB USE SMARTSET 21898 08/14/201908/13, 02/14/2018, 07/25/2016, Additional history exists CKD PHOS USE SMARTSET 24201 08/14/201907/21, 01/09/2017, 04/11/2016, Additional history exists DXA-SCREENING [...] Procedure Name Priority Date/Time Associated Diagnosis Comments PATHOLOGY SCANNED RESULT 01/30/2019 documented in this encounter Results * PATHOLOGY SCANNED RESULT (01/30/2019) Specimen Narrative Performed At documented in this encounter Advance Directives Documents on File Type Date Recorded Patient Travel Accommodations Rater Expl anation Advance Directives and Living Will 08/13/2009 12:00 AM LIVING WILL Power of Vegetable Preparer 08/13/2009 12:00 AM DOMONIQUE R OF SOFTWARE REQUIREMENTS ENGINEER DURABLE HEALTH POA AND HEALTH CARE TREATMENT INSTR Power of Vegetable Preparer 08/13/2009 12:00 AM DOMONIQUE R OF SOFTWARE REQUIREMENTS ENGINEER DURABLE HEALTH CARE POA Advanced Directive service a mike default Advanced Directive Advanced Directive Advanced Directive Advanced Directive Advanced Directive Advanced Directive Advanced Directive Advanced Directive Advanced Directive Advanced Directive Advanced Directive Advanced Directive 09/01/2016 8:20 AM
--- OUTSIDE RECORDS SUMMARY | 2023-01-22 22:59 | External Medical Summary | Summary of Care ---
Author Name Unknown Organization [place] [address] Care Team Providers Care Wage Analyst Name Role Phone Bj Mario Primary Care Provider [phone] Encounter Details Date Type Department Care Team Description 01/30/2019 Result Scan Gastroenterology, [facility] [address] [place] [place] [address] Alo Jean MD [address] [place] [address] [phone] <No scans attached> Allergies No Known Allergiesdocumented as of this encounter (statuses as of 02/01/2019) Medications Medication Sig Dispensed Refills Start Date [...] metoprolol succinate XL (TOPROL XL) 25 MG [id number]:Chronic ischemic heart disease take 1/2 tablet once daily 31 Tab 5 05/10/2018 Active lisinopril (PRINIVIL) 10 MG TabletIndications:Benig n hypertension with CKD (chronic kidney disease) stage III (HCC),Edema take 1 tablet by mouth once daily 30 Tab 5 08/31/2018 Active rOPINIRole (REQUIP) 0.25 MG TabletIndications:Restl ess legs syndrome take 1 tablet by mouth at bedtime 30 Tab 5 09/10/2018 Active rosuvastatin (CRESTOR) 20 MG TabletIndications:Dysli pidemia, goal LDL below 70 take 1 tablet by mouth once daily 30 Tab 11 11/15/2018 Active pantoprazole (PROTONIX) 40 MG TBECIndications:Gastroe sophageal reflux disease without esophagitis Take 1 Tab by mouth daily. 30 Tab 5 12/06/2018 Active documented as of this encounter (statuses as of 02/01/2019) Active Problems Problem Noted Date Benign hypertension [...] status 01/13/2011 Overview: 2013, right [facility]ardo [facility] [...] as of this encounter (statuses as of 02/01/2019) Resolved Problems Problem Noted Date Resolved Date [...] as of this encounter (statuses as of 02/01/2019) Immunizations Name Administration Dates Next Due Pneumococcal [...] Visit Family Medicine Bj Mario, DO [address] [facility] [place] [address] [phone] 04/04/2019 Office Visit Cardiology [facility]C [address] [facility] [place] [address] [phone] Health Maintenance Due Date Last Done Comments Influenza Vaccine (FLU shot) (#1) 2019 03/14/2018, 03/23/2017, 04/11/2016, Additional history exists CKD GFR USE SMARTSET 43767 02/13/201908/13, 03/08/2018, 02/14/2018, Additional history exists CKD HGB USE SMARTSET 67549 08/14/201908/13, 02/14/2018, 07/25/2016, Additional history exists CKD PHOS USE SMARTSET 16300 08/14/201907/21, 01/09/2017, 04/11/2016, Additional history exists DXA-SCREENING [...] Documents on File Type Date Recorded Patient Training Project Manager Expl anation Advance Directives and Living Will 08/13/2009 12:00 AM LIVING WILL Power of Load Dispatcher 08/13/2009 12:00 AM DOMONIQUE R OF CAN CAPPER DURABLE HEALTH POA AND HEALTH CARE TREATMENT INSTR Power of Load Dispatcher 08/13/2009 12:00 AM DOMONIQUE Madsen OF CAN CAPPER DURABLE HEALTH CARE POA Advanced Directive service a mike default Advanced Directive Advanced Directive Advanced Directive Advanced Directive Advanced Directive Advanced Directive Advanced Directive Advanced Directive Advanced Directive Advanced Directive Advanced Directive Advanced Directive 09/01/2016 8:20 AM
--- OUTSIDE RECORDS SUMMARY | 2023-01-22 22:59 | External Medical Summary | Summary of Care ---
Author Name Unknown Organization [place] [address] Care Team Providers Care Traffic Coordinator Name Role Phone Bj Mario Primary Care Provider [phone] Encounter Details Date Type Department Care Team Description 01/30/2019 Scan Encounter Unspecified Department <No scans attached> Allergies No Known Allergiesdocumented as of this encounter (statuses as of 01/31/2019) Medications Medication Sig Dispensed Refills Start Date [...] metoprolol succinate XL (TOPROL XL) 25 MG [id number]:Chronic ischemic heart disease take 1/2 tablet once [...] as of this encounter (statuses as of 01/31/2019) Active Problems Problem Noted Date Benign hypertension [...] as of this encounter (statuses as of 01/31/2019) Resolved Problems Problem Noted Date Resolved Date [...] as of this encounter (statuses as of 01/31/2019) Immunizations Name Administration Dates Next Due Pneumococcal [...] Description 03/20/2019 Office Visit Family Medicine Bj Mario DO [address] [place] [address] [phone] 04/04/2019 Office Visit Cardiology Yvon Harris, PA-C [address] [facility] [place] [address] [phone] Health Maintenance Due Date Last Done Comments Influenza Vaccine (FLU shot) (#1) 2019 03/14/2018, 03/23/2017, 04/11/2016, Additional history exists CKD GFR USE SMARTSET 31299 02/13/201908/13, 03/08/2018, 02/14/2018, Additional history exists CKD HGB USE SMARTSET 77184 08/14/201908/13, 02/14/2018, 07/25/2016, Additional history exists CKD PHOS USE SMARTSET 88125 08/14/201907/21, 01/09/2017, 04/11/2016, Additional history exists DXA-SCREENING [...] Documents on File Type Date Recorded Patient Brick Catcher Expl anation Advance Directives and Living Will 08/13/2009 12:00 AM LIVING WILL Power of Uke Driver 08/13/2009 12:00 AM DOMONIQUE R OF CONTAINER WASHER DURABLE HEALTH POA AND HEALTH CARE TREATMENT INSTR Power of Uke Driver 08/13/2009 12:00 AM DOMONIQUE R OF CONTAINER WASHER DURABLE HEALTH CARE POA Advanced Directive service a mike default Advanced Directive Advanced Directive Advanced Directive Advanced Directive Advanced Directive Advanced Directive Advanced Directive Advanced Directive Advanced Directive Advanced Directive Advanced Directive Advanced Directive 09/01/2016 8:20 AM
--- OUTSIDE RECORDS SUMMARY | 2023-01-22 22:59 | External Medical Summary | Summary of Care ---
Author Name Unknown Organization [place] [address] Care Team Providers Care Mascara Molder Name Role Phone Bj Mario Primary Care Provider [phone] Reason for Visit * Reason Comments Back Pain Encounter Details Date Type Department Care Team Description 04/02/2019 Office Visit [facility] [address] [place] [address] Paul Berg [address] [place] [address] [phone] Spinal stenosis of lumbar region with neurogenic claudication*; Myofascial muscle pain Allergies No Known Allergiesdocumented as of this encounter (statuses as of 04/02/2019) Medications Medication Sig Dispensed Refills Start Date [...] metoprolol succinate XL (TOPROL XL) 25 MG [id number]:Chronic ischemic heart disease Take 0.5 Tabs by mouth daily. 45 Tab 3 03/20/2019 Active documented as of this encounter (statuses as of 04/02/2019) Active Problems Problem Noted Date Benign hypertension with CKD (chronic ki dney disease) stage III 09/06/2017 History of deep vein thrombosis (DVT) of lower extremity 09/08/2016 Status post insertion of drug eluting co ronary artery stent 04/07/2015 Overview: 2009, DUS placed in the mid RCA at [facility] Asymptomatic bilateral carotid artery st enosis 06/10/2014 Raynaud phenomenon 06/13/2011 Knee joint replacement status 01/13/2011 Overview: 2013, right Dr Ricardo [facility] 2011: left Dr Priya Ricardo [facility] Dyslipidemia, goal LDL below 70 09/21/19 11 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 neurogenic claudication 02/17/2010 Vitamin D deficiency 10/13/2009 Chronic ischemic heart disease 0 S/P angioplasty with stent 06/30/2009 Overview: 07/01/2009 DUS in the RCA at [facility] Non-toxic multinodular goiter 04/21/2009 Overview: seen [...] as of this encounter (statuses as of 04/02/2019) Resolved Problems Problem Noted Date Resolved Date [...] as of this encounter (statuses as of 04/02/2019) Immunizations Name Administration Dates Next Due Pneumococcal [...] Travel End documented as of this encounter Progress Notes * Paul Berg, - 04/02/2019 11:24 AM EST Name: Eugenia Hu Date: 04/02/2019 HPI: Eugenia Hu is a 84 year old female seen in the pain management clinic for re-evaluation. She did get at least 50% reduction her back and lower extremity pain with her 2nd epidural steroid injection. She presents today predominantly for evaluation of some pain in the left thoracolumbar junction. States that this particular part of her pain never improved with the injection. No recent trauma. There is no radicular quality. She does seem to get some modest improvement if she uses Flexeril at night. Things are little irritable today after she rate believes yesterday. 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, left 1992 HTN, goal below 140/90 Knee joint replacement status 01/13/[address] Priya Ricardo [facility] Knee joint replacement status 12/15/2013 right [facility] Macular degeneration Ugo Simon MD Menopause 1974 Need for prophylactic hormone replacement therapy (postmenopausal) 1974 Non-toxic multinodular goiter 04/2009 seen on US, repeat -10/2009 Other screening mammogram 10/24/03 Birad Code 2 Other specified glaucoma both eyes, Paul Simon MD, drops used, timolol S/P angioplasty with stent 06/30/09 [facility] Status post insertion of drug eluting coronary artery stent 04/07/20152009, DUS placed in the mid RCA at [facility] Vitamin D deficiency 10/13/2009 Past Surgical History: Procedure Laterality Date ARTHROPLASTY KNEE TOTAL Left 01/13/2011 Left, Dr Priya Ricardo [facility] ARTHROPLASTY KNEE TOTAL Right 12/16/13 Right, Dr Priya Ricardo [facility] CARDIAC CATH SCANNED RESULT 06/30/2009 DUS placed in right coronary, [facility] CARPAL TUNNEL SURGERY Bilateral 2014 bilateral COLONOSCOPY 03/22/2006 normal repeat in 2015 COLONOSCOPY, DIAGNOSTIC (RECTUM) 09/01/2016 diverticulosis/COLONOSCOPY FLEXIBLE PROXIMAL DIAGNOSTIC performed by Kaylie Ford MD at ENDOSCOPY [facility] COLONOSCOPY, DIAGNOSTIC (RECTUM) 10/09/2018 diverticulosis/[facility] COLONOSCOPY, GI REFERRAL OP 03/22/2005 diverticulosis, repeat in 10 years for surveillance reasons COLORECTAL CANCER SCREEN;W/FLE 1999 normal, Dr Estrella DENTAL SURGERY PROCEDURE NEC 1970 Dental Surgery Procedure tumor benign palate DEXA SCAN/BONE MINERAL AXIAL 07/2002 normal, repeat 2007 DEXA SCAN/BONE MINERAL AXIAL 07/20/2006 normal repeat in 6-8 years EGD, FLEXIBLE, DIAGNOSTIC 01/30/2019 acid reflux, Schatzki ring, hiatal hernia / [facility] EXERCISE ECHO 09/02/2002 normal, Dr Genao INJECT DX/THER SUBSTANCE INTERLAMINAR LUMBAR/SACRAL W IMAGE GUIDE 01/18/2018 INJECTION SPINE LUMBAR OR SACRAL performed by [facility] Cousins, DO at OR [facility] INJECT DX/THER SUBSTANCE INTERLAMINAR LUMBAR/SACRAL W IMAGE GUIDE 02/12/2018 INJECTION SPINE LUMBAR OR SACRAL performed by [facility] Cousins, DO at OR [facility] INJECT DX/THER SUBSTANCE INTERLAMINAR LUMBAR/SACRAL W IMAGE GUIDE 12/27/2018 INJECTION SPINE LUMBAR OR SACRAL performed by [facility] Cousins, DO at OR [facility] INJECT DX/THER SUBSTANCE INTERLAMINAR LUMBAR/SACRAL W IMAGE GUIDE 02/21/2019 INJECTION SPINE LUMBAR OR SACRAL performed by [facility] Cousins, DO at OR [facility] MAMMOGRAM - BILATERAL 2.1.02 negative finding. birad code 1 MAMMOGRAM - BILATERAL 09.13. negative findings, yearly mammograms appropriate, birad code 1-diffuse scattered calcifications MAMMOGRAM - BILATERAL 04/10/07 birad code 2 MAMMOGRAM SCREENING-BILATERAL 03/02/05 benign findings, yearly mammograms appropriate, birad code 2 MAMMOGRAM SCREENING-BILATERAL 03.03. benign findings, yearly mammograms appropriate, birad code 2 MAMMOGRAM SCREENING-BILATERAL 07/03/08 birad code 2 NUCLEAR SCAN OF HEART MUSCLE 05/31/09, 11/23/10 abnormal PARTIAL HYSTERECTOMY 1973 one ovary left in, Dr Chakraborty in [facility] REMOVE CATARACT, INSERT LENS PROSTH Right 01/05/[address] Messi Simon REMOVE CATARACT, INSERT LENS PROSTH Left 01/28/[address] Messi Simon STENT, COATED/COVERED, WITH DELIVERY SYSTEM 06/30/2009 [employer]deaver Drug Eluding Stent [facility] TOTAL HIP REPLACEMENT & PROSTHESIS 1992 left, Dr Ricardo TOTAL HIP REPLACEMENT & PROSTHESIS 10/2000 right , Dr Ricardo at [facility] Current Outpatient Medications Medication Sig Dispense [...] given to our office. 1 Each 1 traMADol (ULTRAM) 50 MG Tablet Take 1 [...] Status Never Smoker Smokeless Tobacco Never Used History Alcohol Use Yes Comment: occ PHYSICAL EXAM: There were no vitals taken for this visit. Trigger points left upper lumbar/lower thoracic. No rash. No allodynia. Motor 5/5 BL. Ambulates without assistance. ASSESSMENT: Left thoracolumbar myofascial pain Severe lumbar spinal stenosis RECOMMENDATION: I did offer to pursue trigger-point injection for her today. Procedural risks including bleeding, infection, or worsening pain were reviewed and accepted. After obtaining appropriate informed consent, time-out was taken to properly identify patient and injection sites and I did infiltrate 2 triggerpoints in the left the thoracolumbar junction just lateral to the paravertebral musculature with 1 ml of 1% lidocaine at each site using a 27 gauge needle after an alcohol prep. She tolerated injection well and I will re-evaluate her on an as-needed basis. Paul Berg DO 04/02/2019 11:24 AM documented in this encounter Nursing Notes * Lorri Gotti LPN - 04/02/2019 11:08 AM EST Patient reports 50% improvement in low back pain since injection Left lower side documented in this encounter Plan of Treatment Upcoming Encounters Date Type Specialty Care Team Description 04/04/2019 Office Visit Cardiology Yvon Harris PA-C [address] [facility] [place] [address] [phone] 09/23/2019 Office Visit Family Medicine Bj Mario DO [address] [facility] [place] [address] [phone] Health Maintenance Due Date Last Done Comments CKD HGB USE SMARTSET 22969 08/14/201908/13, 02/14/2018, 07/25/2016, Additional history exists CKD PHOS USE SMARTSET 96359 08/14/201907/21, 01/09/2017, 04/11/2016, Additional history exists CKD GFR USE SMARTSET 52420 09/19/201903/20, 08/13/2018, 03/08/2018, Additional history exists DXA-SCREENING [...] Spinal stenosis, lumbar region, with neurogenic claudication Myofascial muscle pain Mylagia and myositis, unspecified documented in this encounter Advance Directives Documents on File Type Date Recorded Patient International Accountant Expl anation Advance Directives and Living Will 08/13/2009 12:00 AM LIVING WILL Power of Research Phlebotomist 08/13/2009 12:00 AM DOMONIQUE R OF ANIMAL FEEDER DURABLE HEALTH POA AND HEALTH CARE TREATMENT INSTR Power of Research Phlebotomist 08/13/2009 12:00 AM DOMONIQUE R OF ANIMAL FEEDER DURABLE HEALTH CARE POA Advanced Directive service a mike default Advanced Directive Advanced Directive Advanced Directive Advanced Directive Advanced Directive Advanced Directive Advanced Directive Advanced Directive Advanced Directive Advanced Directive Advanced Directive Advanced Directive 09/01/2016 8:20 AM Advanced Directive
--- OUTSIDE RECORDS SUMMARY | 2023-01-22 22:59 | External Medical Summary | Summary of Care ---
Author Name Unknown Organization [place] [address] Care Team Providers Care Bar Attendant Name Role Phone Bj Mario DO Primary Care Provider [phone] Reason for Visit * Reason Comments eRx-Medication Refill Med Request Encounter Details Date Type Department Care Team Description 01/28/2019 Refill Family Practice [facility] [address] [place] [address] Bj Mario DO [address] [place] [address] [phone] Displacement of lumbar intervertebral disc without myelopathy Allergies No Known Allergiesdocumented as of this [...] metoprolol succinate XL (TOPROL XL) 25 MG [id number]:Chronic ischemic heart disease take 1/2 tablet once daily 31 Tab 5 05/10/2018 Active lisinopril (PRINIVIL) 10 MG TabletIndications:Rick manning [...] mid RCA at [facility] Asymptomatic bilateral carotid artery st enosis 06/10/2014 Raynaud phenomenon 06/13/2011 Knee joint replacement status 01/13/2011 Overview: 2013, right Dr Ricardo [facility] 2011: left Dr Priya Ricardo [facility] Dyslipidemia, goal LDL below 70 09/21/19 11 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 neurogenic claudication 02/17/2010 Vitamin D deficiency 10/13/2009 Chronic ischemic heart disease 0 S/P angioplasty with stent 06/30/2009 Overview: 07/01/2009 DUS in the RCA at [facility] Non-toxic multinodular goiter 04/21/2009 Overview: seen on [...] encounter Miscellaneous Notes * Telephone Encounter - Amanda Collins PHARM Tech - 01/31/2019 10:09 AM EDT Pt calling to request refills for Tramadol. Upon chart review, medication is listed as discontinued, with discontinuation reason as "Patient preference/discontinuation". Upcoming OV - 03/20/19 Please advise if you wish to continue this therapy for the patient. Patient can be reached at Patient Phone Numbers for any further questions or concerns. Thank You, Amanda Collins Azure Principal Solution Specialist Refill Call Center 01/31/2019, 10:09 AM * Telephone Encounter - Go Block RPh - 01/29/2019 7:29 AM EDT Refused Prescriptions: Disp Refills traMADol (ULTRAM) 50 MG Tablet [Pharmacy M*60 Tab 1 Sig: take 1 tablet by mouth every 6 hours if neededRefused By: Alfonso BLOCK for Refusal: Course of treatment complete * Telephone Encounter - Go Block RPh - 01/29/2019 7:28 AM EDT Tramadol discontinued 08/03/18. Thanks, João GoreD Clinical Pharmacist TelePharmacy 01/29/2019 7:29 AM documented in this encounter Plan of Treatment Upcoming Encounters Date Type Specialty Care Team Description 03/20/2019 Office Visit Family Medicine Bj Mario, DO [address] [place] [address] [phone] 04/04/2019 Office Visit Cardiology Yvon Harris PA-C [address] [facility] [place] [address] [phone] Health Maintenance Due Date Last Done Comments Influenza Vaccine (FLU shot) (#1) 2019 03/14/2018, 03/23/2017, 04/11/2016, Additional history exists CKD GFR USE SMARTSET 21776 02/13/201908/13, 03/08/2018, 02/14/2018, Additional history exists CKD HGB USE SMARTSET 26675 08/14/201908/13, 02/14/2018, 07/25/2016, Additional history exists CKD PHOS USE SMARTSET 72728 08/14/201907/21, 01/09/2017, 04/11/2016, Additional history exists DXA-SCREENING [...] as of this encounter Visit Diagnoses Diagnosis Displacement of lumbar intervertebral disc without myelopathy documented in this encounter Advance Directives Documents on File Type Date Recorded Patient Plan Examiner Expl anation Advance Directives and Living Will 08/13/2009 12:00 AM LIVING WILL Power of Hydrogeology Professor 08/13/2009 12:00 AM DOMONIQUE R OF SWITCHBOARD CLERK DURABLE HEALTH POA AND HEALTH CARE TREATMENT INSTR Power of Hydrogeology Professor 08/13/2009 12:00 AM DOMONIQUE R OF SWITCHBOARD CLERK DURABLE HEALTH CARE POA Advanced Directive service a mike default Advanced Directive Advanced Directive Advanced Directive Advanced Directive Advanced Directive Advanced Directive Advanced Directive Advanced Directive Advanced Directive Advanced Directive Advanced Directive Advanced Directive 09/01/2016 8:20 AM
--- OUTSIDE RECORDS SUMMARY | 2023-01-22 22:59 | External Medical Summary ---
Author Name Unknown Address [address] [id number] Phone Organization K01:[facility] [address] [id number] Laboratory Report Ordering Provider Test Date Status ANIVAL HANKINS 03/20/2019 10:11:00 Final Observation Date Value Abnormality Reference Status Vitamin B12 03/20/2019 17:58 [phone] F inal Performing Location [address] [address]
--- OUTSIDE RECORDS SUMMARY | 2023-01-22 22:59 | External Medical Summary | Summary of Care ---
Author Name Unknown Organization [facility] [address] Care Team Providers Care Ad Operations Coordinator Name Role Phone Bj Mario DO Primary Care Provider [phone] Reason for Visit * Reason Comments Follow Up Pt presents today fo r a six month return, would also like to get the flu shot. Medication Administration Flu and/or Pne umo Inj Encounter Details Date Type Department Care Team Description 03/20/2019 Office Visit Family Practice [facility] [address] [place] [address] Bj Mario DO [address] [place] [address] [phone] 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)*; Need for prophylactic vaccination and inoculation against influenza; Gastroesophageal reflux disease without esophagitis; Acute maxillary sinusitis, recurrence not specified; CHR ISCHEMIC HRT DIS NOS; Low energy; Spasm of muscle Allergies No Known Allergiesdocumented as of this encounter (statuses as of 03/26/2019) Medications Medication Sig Dispensed Refills Start Date [...] 0 07/29/2014 Active nitroglycerin (NITROSTAT) 0.4 MG SUBLIndications:Ch ronic [...] 3 02/05/2019 Active rOPINIRole (REQUIP) 0.25 MG TabletIndications: Restless legs syndrome Take 1 Tab by mouth at bedtime. 90 Tab 3 02/05/2019 Active rosuvastatin (CRESTOR) 20 MG TabletIndications: Dyslipidemia, goal LDL below 70 Take 1 Tab by mouth daily. 90 Tab 1 02/05/2019 Active traMADol (ULTRAM) 50 MG Tablet Take 1 Tab by mouth daily as needed for Pain, Severe. 30 Tab 0 02/19/2019 Active cyclobenzaprine (FLEXERIL) 5 MG TabletIndications: Spasm of muscle Take 1 Tab by mouth 2 times a day as needed for Muscle spasms. 60 Tab 5 03/20/2019 Active famotidine (PEPCID) 20 MG TabletIndications: Gastroesophageal reflux disease without esophagitis Take 1 Tab by mouth 2 times a day. 60 Tab 11 03/20/2019 Active amoxicillin-clavul anate (AUGMENTIN) 875-125 MG per TabletIndications: Acute maxillary sinusitis, recurrence not specified Take 1 Tab by mouth 2 times a day for 7 days. 14 Tab 0 03/20/2019 9 Active zoster vac recomb adjuvanted (SHINGRIX) 50 MCG/0.5ML injection Inject 0.5 mL into a large muscle now and repeat dose in 60 to 180 days. Please fax date this was given to our office. 1 Each 1 03/20/2019 Active metoprolol succinate XL (TOPROL XL) 25 MG [id number]:Ch ronic ischemic heart disease Take 0.5 Tabs by mouth daily. 45 Tab 3 03/20/2019 Active metoprolol succinate XL (TOPROL XL) 25 MG [id number]:Ch ronic ischemic heart disease Take 0.5 Tabs by mouth daily. 45 Tab 3 02/05/2019 9 Discontinued(Refi ll) pantoprazole (PROTONIX) 40 MG TBECIndications:Ga stroesophageal reflux disease without esophagitis Take 1 Tab by mouth daily. 90 Tab 3 02/05/2019 10/30/201 9 Discontinued documented as of this encounter (statuses as of 03/26/2019) Active Problems Problem Noted Date Benign hypertension with CKD (chronic ki dney disease) stage III 09/06/2017 History of deep vein thrombosis (DVT) of lower extremity 09/08/2016 Status post insertion of drug eluting co ronary artery stent 04/07/2015 Overview: 2009, DUS placed in the mid RCA at [facility] Asymptomatic bilateral carotid artery st enosis 06/10/2014 Raynaud phenomenon 06/13/2011 Knee joint replacement status 01/13/2011 Overview: 2014, right Dr Ricardo [facility] 2011: left Dr Priya Ricardo [facility] Dyslipidemia, goal LDL below 70 09/21/19 11 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 neurogenic claudication 02/17/2010 Vitamin D deficiency 10/13/2009 Chronic ischemic heart disease 0 S/P angioplasty with stent 06/30/2009 Overview: 07/01/2009 DUS in the RCA at [facility] Non-toxic multinodular goiter 04/21/2009 Overview: seen [...] as of this encounter (statuses as of 03/26/2019) Resolved Problems Problem Noted Date Resolved Date [...] as of this encounter (statuses as of 03/26/2019) Immunizations Name Administration Dates Next Due Pneumococcal [...] Sign Reading Time Taken Comments Blood Pressure 120/64 03/20/2019 9:29 AM EDT Pulse 60 03/20/2019 9:29 AM EDT Temperature 36.5 C (97.7 F) 03/20/2019 9:29 AM ED T Respiratory Rate 16 03/20/2019 9:29 AM EDT Oxygen Saturation - - Inhaled Oxygen Concentration - - Weight 87.2 kg (192 lb 3.2 oz) 03/20/2019 9:29 A M EDT Height 161 cm (5' 3.39") 03/20/2019 9:29 AM EDT Body Mass Index 33.63 03/20/2019 9:29 AM EDT documented in this encounter Progress Notes * Bj Mario, - 03/20/2019 9:49 AM EDT Subjective: Eugenia Hu is a 84 year old female. Chief Complaint Patient presents with Follow Up Pt presents today for a six month return, would also like to get the flu shot. Medication Administration Flu and/or Pneumo Inj HPI: Back has still been bad. She got an injection but it only helped two weeks. Tramadol does help. Pain is right inbthe middle of her back and radiates to the L. IT went down her leg until her last shot. The pain up in her back stayed. IT is not stabbing, just there. IT is worse with with sleepingon her bed. Walking hurts. No trouble sitting. Trying to get up hurts. Her foot does not go numb. Calling back to Dr. Berg tomorrow. HAs not seen the chiropractor in a while. Flu shot done today. She takes a PPI. Cold for a month. Was in bed for two days. No SOB or wheezing. Feels tired. Some ST initially. No ear pain but some pressure. In her R ear. NO sinus pressure. Not getting better. Still a lot of mucous. Less cough at leats. Will do shingrix at the pharmacy. BP good today. Would like B12 checked to consider shot. PMHx, meds, and allergies reviewed Patient Active [...] with CKD (chronic kidney disease) stage III ([facility]) I12.9, N18.3 Current Outpatient Medications Medication Sig Dispense Refill traMADol (ULTRAM) 50 MG Tablet Take 1 Tab by mouth daily as needed for Pain, Severe. 30 Tab 0 lisinopril (PRINIVIL) 10 MG Tablet Take 1 Tab by mouth daily. 90 Tab 3 metoprolol succinate XL (TOPROL XL) 25 MG TB24 Take 0.5 Tabs by mouth daily. 45 Tab 3 pantoprazole (PROTONIX) 40 MG TBEC Take 1 Tab by mouth daily. 90 [...] Drop into both eyes every evening. 0 ASPIRIN 81 MG PO CHEW One pill by mouth once a day with food 100 5 VITAMIN D 1000 UNIT PO CAPS 1 capsule daily 30 Cap 11 Review of patient's allergies indicates: No Known Allergies OBJECTIVE: BP 120/64 | Pulse 60 | Temp (Src) 97.7 (Tympanic) | Resp 16 | Ht 5' 3.39" (1.610m) | Wt 192 lbs 3.2oz (87.181kg) | BMI 33.63 kg/m | BSA 1.97 m Estimated body mass index is 33.63 kg/m as calculated from the following: Height as of this encounter: 1.61 m (5' 3.39"). Weight as of this encounter: 87.2 kg (192 lb 3.2 oz). BP Readings from Last 3 Encounters: 03/20/19 120/64 02/21/19 146/73 01/24/19 124/68 Wt Readings from Last 3 Encounters: 03/20/19 87.2 kg (192 lb 3.2 oz) 01/24/19 83.9 kg (185 lb) 12/24/18 84.4 kg (186 lb 1.6 oz) ROS: Negative except for above PHYSICAL EXAM: General: alert, healthy and no distress Head: Normocephalic, pain to palpation of maxillary sinuses Ears: External ears normal, Canals clear, TM's Normal Nose: no mucosal erythema, no mucosal edema, no purulent discharge Oropharynx: no exudate, no erythema, lips, buccal mucosa, and tongue normal and mucous membranes are moist Lymph: no palpable lymphadenopathy Heart: regular rate & rhythm, no murmurs and no gallops Lungs: chest symmetric with normal AP diameter, no chest deformities noted, no chest wall tenderness, lungs clear to auscultation Abdomen: abdomen soft, non-tender, normal bowel sounds and no masses or organomegaly Back: back symmetric, no curvature, no costovertebral angle tenderness, range of motion is normal, negative straight leg raising, Tender paralumbar muscles bilaterally ASSESSMENT/Plan 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) (Primary) - BASIC METAB PANEL, BMP; Future; Expected date: 03/20/2019 - BASIC METAB PANEL, BMP Need for prophylactic vaccination and inoculation against influenza - INFLUENZA VACC, IIV, SUBUNIT, ADJUVANTED, IM Gastroesophageal reflux disease without esophagitis - famotidine (PEPCID) 20 MG Tablet; Take 1 Tab by mouth 2 times a day. Acute maxillary sinusitis, recurrence not specified - amoxicillin-clavulanate (AUGMENTIN) 875-125 MG per Tablet; Take 1 Tab by mouth 2 times a day for 7 days. CHR ISCHEMIC HRT DIS NOS - metoprolol succinate XL (TOPROL XL) 25 MG TB24; Take 0.5 Tabs by mouth daily. Low energy - VITAMIN B12; Future; Expected date: 03/20/2019 - VITAMIN B12 Spasm of muscle - cyclobenzaprine (FLEXERIL) 5 MG Tablet; Take 1 Tab by mouth 2 times a day as needed for Muscle spasms. Other orders - zoster vac recomb adjuvanted (SHINGRIX) 50 MCG/0.5ML injection; Inject 0.5 mL into a large musclenow and repeat dose in 60 to 180 days. Please fax date this was given to our office. Try low dose muscle relaxer over further opioids for back pain. The above was discussed and understanding was expressed. Bj Mario DO * Oli Tierney LPN - 03/20/2019 9:30 AM EDT PRE - ADMINISTRATION DOCUMENTATION Are you allergic to latex? No Are you experiencing any cold symptoms or fever? No Have you had Guillain-Jerome Syndrome (an illness that causes paralysis) within the last 6 weeks? No Have you had the flu shot in the past? YES Have you ever had a reaction to the flu shot? No lOi Tierney LPN, 03/20/2019 9:30 AM Immunization Administration Documentation Time Out Procedure Performed: Yes Patient Identified (Ask Name/Date of ): Yes Does the patient have a fever greater than 101 degrees today? No Patient allergic to latex? No VFC Stock: No Immunization(s) verified: Yes, Immunization Name: Flu, VIS Sheet(s) given: Yes Verified Side and Site: Yes Verified Shot(s) with Parent(s)/Patient: Yes documented in this encounter Nursing Notes * Oli Tierney LPN - 03/20/2019 9:29 AM EDT Chief Complaint Patient presents with Follow Up Pt presents today for a six month return, would also like to get the flu shot. documented in this encounter Plan of Treatment Upcoming Encounters Date Type Specialty Care Team Description 04/02/2019 Office Visit Pain Management Paul Berg DO [address] [place] [address] [phone] 04/04/2019 Office Visit Cardiology Yovn Harris PA-C [address] [place] [address] [phone] 09/23/2019 Office Visit Family Medicine Bj Mario DO [address] [facility], [place] [address] [phone] Health Maintenance Due Date Last Done Comments CKD HGB USE SMARTSET 82405 08/14/201908/13, 02/14/2018, 07/25/2016, Additional history exists CKD PHOS USE SMARTSET 53911 08/14/201907/21, 01/09/2017, 04/11/2016, Additional history exists CKD GFR USE SMARTSET 30255 09/19/201903/20, 08/13/2018, 03/08/2018, Additional history exists DXA-SCREENING [...] Name Priority Date/Time Associated Diagnosis Comments BASIC METAB PANEL, BMP Routine 03/20/2019 10:11 AM EDT 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) VITAMIN B12 Routine 03/20/2019 10:11 AM EDT Low energy documented in this encounter Results * VITAMIN B12 (03/20/2019 10:11 AM EDT) VITAMIN B12 361 232 - 1,245 pg/mL [facility] Specimen Performing Organization Address City/State/Zipcod e Phone Number [facility], [address] [place] [address] * BASIC METAB PANEL, BMP (03/20/2019 10:11 AM EDT) BUN 21(H) 6 - 20 mg/dL [place] CREATININE 1.2(H) Comment: GFR should be used to assess renal function. Plasma/Serum creatinine may not be able to properly reflect renal function in some cases. 0.5 - 1.0 mg/dL [place] E GLOM FILT RATE 42.3(L)Comment:If patient is , multiply estimated GFR by 1.159. >60 [place] SODIUM 142 135 - 146 mmol/L [place] POTASSIUM 4.9 3.5 - 5.1 mmol/L [place] CHLORIDE 104 98 - 107 mmol/L [place] CO2 25 22 - 32 mmol/L [place] ANION GAP 13 7 - 15 mmol/L [place] GLUCOSE 93 70 - 120 mg/dL [place] CALCIUM 10.0 8.4 - 10.2 mg/dL [place] Specimen Performing Organization Address City/State/Zipcod e Phone Number [facility], [address] [place] [address] documented in this encounter Visit Diagnoses Diagnosis 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)- Primary Benign hypertensive kidney disease with chronic kidney disease stage I through stage IV, or unspecified Need for prophylactic vaccination and inoculation against influenza Gastroesophageal reflux disease without esophagitis Esophageal reflux Acute maxillary sinusitis, recurrence not specified CHR ISCHEMIC HRT DIS NOS Chronic ischemic heart disease, unspecified Low energy Spasm of muscle documented in this encounter Advance Directives Documents on File Type Date Recorded 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 Advance Directives and Living Will 08/13/2009 12:00 AM LIVING WILL Power of Social Sciences Department Chair 08/13/2009 12:00 AM DOMONIQUE Madsen OF LIAISON ENGINEER DURABLE HEALTH POA AND HEALTH CARE TREATMENT INSTR Power of Social Sciences Department Chair 08/13/2009 12:00 AM DOMONIQUE Madsen OF LIAISON ENGINEER DURABLE HEALTH CARE POA Advanced Directive service a mike default Advanced Directive Advanced Directive Advanced Directive Advanced Directive Advanced Directive Advanced Directive Advanced Directive Advanced Directive Advanced Directive Advanced Directive Advanced Directive Advanced Directive 09/01/2016 8:20 AM Advanced Directive
--- OUTSIDE RECORDS SUMMARY | 2023-01-22 22:59 | External Medical Summary | Summary of Care ---
Author Name Unknown Organization [place] [address] Care Team Providers Care Internal Specialist Name Role Phone Bj Mario Primary Care Provider [phone] Encounter Details Date Type Department Care Team Description 01/30/2019 Procedure Only Endoscopy, [facility] [address] [address] [facility] [address] [facility] [address] [phone] Encounter for diagnostic endoscopy* Allergies No Known Allergiesdocumented as of this encounter (statuses as of 02/02/2019) Medications Medication Sig Dispensed Refills Start Date [...] metoprolol succinate XL (TOPROL XL) 25 MG [id number]:Chronic ischemic heart disease take 1/2 tablet once [...] as of this encounter (statuses as of 02/02/2019) Active Problems Problem Noted Date Benign hypertension [...] as of this encounter (statuses as of 02/02/2019) Resolved Problems Problem Noted Date Resolved Date [...] as of this encounter (statuses as of 02/02/2019) Immunizations Name Administration Dates Next Due Pneumococcal [...] Family Medicine Bj Mario, DO [address] [place], [place] [address] [phone] 04/04/2019 Office Visit Cardiology Yvon Harris PA-C [address] [facility] [place] [address] [phone] Health Maintenance Due Date Last Done Comments Influenza Vaccine (FLU shot) (#1) 2019 03/14/2018, 03/23/2017, 04/11/2016, Additional history exists CKD GFR USE SMARTSET 41758 02/13/201908/13, 03/08/2018, 02/14/2018, Additional history exists CKD HGB USE SMARTSET 23805 08/14/201908/13, 02/14/2018, 07/25/2016, Additional history exists CKD PHOS USE SMARTSET 38713 08/14/201907/21, 01/09/2017, 04/11/2016, Additional history exists DXA-SCREENING [...] Procedure Name Priority Date/Time Associated Diagnosis Comments UPPER GI ENDOSCOPY 01/30/2019 documented in this encounter Results * UPPER GI ENDOSCOPY (01/30/2019) Specimen Narrative Performed At documented in this encounter Visit Diagnoses Diagnosis Encounter for diagnostic endoscopy- Primary Other specified pre-operative examination documented in this encounter Advance Directives Documents on File Type Date Recorded 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 Advance Directives and Living Will 08/13/2009 12:00 AM LIVING WILL Power of Bat Lathe Operator 08/13/2009 12:00 AM DOMONIQUE R OF SUPERVISOR ESTIMATOR AND DRAFTER DURABLE HEALTH POA AND HEALTH CARE TREATMENT INSTR Power of Bat Lathe Operator 08/13/2009 12:00 AM DOMONIQUE R OF SUPERVISOR ESTIMATOR AND DRAFTER DURABLE HEALTH CARE POA Advanced Directive service a mike default Advanced Directive Advanced Directive Advanced Directive Advanced Directive Advanced Directive Advanced Directive Advanced Directive Advanced Directive Advanced Directive Advanced Directive Advanced Directive Advanced Directive 09/01/2016 8:20 AM
--- OUTSIDE RECORDS SUMMARY | 2023-01-22 22:59 | External Medical Summary | Summary of Care ---
Author Name Unknown Organization [place] [address] Care Team Providers Care Head Housekeeper Name Role Phone Bj Mario DO Primary Care Provider [phone] Reason for Visit * Reason Comments eRx-Medication Refill Encounter Details Date Type Department Care Team Description 01/28/2019 Refill Family Practice [facility] [address] [place] [address] Bj Mario DO [address] [place] [address] [phone] Displacement of lumbar intervertebral disc without myelopathy Allergies No Known Allergiesdocumented as of this encounter (statuses as of 01/29/2019) Medications Medication Sig Dispensed Refills Start Date [...] metoprolol succinate XL (TOPROL XL) 25 MG [id number]:Chronic ischemic heart disease take 1/2 tablet once [...] as of this encounter (statuses as of 01/29/2019) Active Problems Problem Noted Date Benign hypertension [...] status 01/13/2011 Overview: 2013, right Dr Ricardo [facility] 2011: [...] as of this encounter (statuses as of 01/29/2019) Resolved Problems Problem Noted Date Resolved Date [...] as of this encounter (statuses as of 01/29/2019) Immunizations Name Administration Dates Next Due Pneumococcal [...] encounter Miscellaneous Notes * Telephone Encounter - Go Block [facility] - 01/29/2019 7:29 AM EDT Refused Prescriptions: Disp Refills traMADol (ULTRAM) 50 MG Tablet [Pharmacy M*60 Tab 1 Sig: take 1tablet by mouth every 6 hours if neededRefused By: Alfonso BLOCK for Refusal: Course of treatment complete * Telephone Encounter - Go Block [facility] - 01/29/2019 7:28 AM EDT Tramadol discontinued 08/03/18. Thanks, Go Block, PharmD Clinical Pharmacist TelePharmacy 01/29/2019 7:29 AM documented in this encounter Plan of Treatment Upcoming Encounters Date Type Specialty Care Team Description 01/30/2019 Procedure Only Endoscopy Alo Jean MD [address] [facility] [place] [address] [phone] 03/20/2019 Office Visit Family Medicine Bj Mario, DO [address] [facility] [address] [phone] Health Maintenance Due Date Last Done Comments Influenza Vaccine (FLU shot) (#1) 2019 03/14/2018, 03/23/2017, 04/11/2016, Additional history exists CKD GFR USE SMARTSET 86471 02/13/201908/13, 03/08/2018, 02/14/2018, Additional history exists CKD HGB USE SMARTSET 30249 08/14/201908/13, 02/14/2018, 07/25/2016, Additional history exists CKD PHOS USE SMARTSET 00659 08/14/201907/21, 01/09/2017, 04/11/2016, Additional history exists DXA-SCREENING EVERY 7 YRS-USE SMARTSET# 3348 TO ORDER 10/30/2020 10/30/2013, 10/30/2013, 08/24/2009, Additional history exists DIABETES SCREEN EVERY 3 YRS-AGE 45 AND ABOVE 08/13/2021 08/13/2018, 03/08/2018, 02/14/2018, Additional history exists DTaP,Tdap,and Td Vaccines (2 - Td) 08/28/2028 08/28/2018, 04/21/2012, 04/28/2008 PNEUMOCOCCAL ADULT 65 YRS AND OVER Completed 09/22/2014, 03/12/2002 MENINGOCOCCAL (MENACTRA) Aged Out No longer eligible based on patient's age to complete this topic documented as of this encounter Implants Not on filedocumented as of this encounter Visit Diagnoses Diagnosis Displacement of lumbar intervertebral disc without myelopathy documented in this encounter Advance Directives Documents on File Type Date Recorded 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
--- OUTSIDE RECORDS SUMMARY | 2023-01-22 23:00 | External Medical Summary | Summary of Care ---
Author Name Unknown Organization [place] [address] Care Team Providers Care Research Manufacturing Operator Name Role Phone Bj Mario Primary Care Provider [phone] Encounter Details Date Type Department Care Team Description 10/09/2018 Scan Encounter Unspecified Department <No scans attached> Allergies No Known Allergiesdocumented as of this encounter (statuses as of 10/10/2018) Medications Medication Sig Dispensed Refills Start Date [...] 15 minutes 25 Tab 11 10/09/2017 Active rosuvastatin (CRESTOR) 20 MG TabletIndications:Dysl ipidemia, goal LDL below 70 take 1 tablet by mouth once daily 31 Tab 11 10/31/2017 Active acetaminophen (TYLENOL EXTRA STRENGTH) 500 MG Tablet Take 500 mg by mouth every 6 hours as needed for Pain. 0 Active amoxicillin (AMOXIL) 500 MG CapsuleIndications:Pro phylactic antibiotic,History of bilateral hip replacements,Hip joint replacement status,Status post total bilateral knee replacement TAKE 4 CAPSULES BY MOUTH 1 HOUR PRIOR TO PROCEDURE. 4 Cap 6 04/27/2018 Active metoprolol succinate XL (TOPROL XL) 25 MG [id number]:Chroni c ischemic heart disease take 1/2 tablet once daily 31 Tab 5 05/10/2018 Active lisinopril (PRINIVIL) 10 MG TabletIndications:Charles gn hypertension with CKD (chronic kidney disease) stage III (HCC),Edema take 1 tablet by mouth once daily 30 Tab 5 08/31/2018 Active rOPINIRole (REQUIP) 0.25 MG TabletIndications:Rest less legs syndrome take 1 tablet by mouth at bedtime 30 Tab 5 09/10/2018 Active nystatin 451720 UNIT/ML suspensionIndications: Thrush Take 1 mL by mouth 4 times a day. For thrush. 60 mL 1 09/14/2018 Active pantoprazole (PROTONIX) 40 MG TBECIndications:Gastro esophageal reflux disease without esophagitis Take 1 Tab by mouth daily. 30 Tab 0 09/14/2018 Active documented as of this encounter (statuses as of 10/10/2018) Active Problems Problem Noted Date Benign hypertension with CKD (chronic ki dney disease) stage III 09/06/2017 History of deep vein thrombosis (DVT) of lower extremity 09/08/2016 Status post insertion of drug eluting co ronary artery stent 04/07/2015 Overview: 2009, DUS placed in the mid RCA at [facility] Asymptomatic bilateral carotid artery st enosis 06/10/2014 Raynaud phenomenon 06/13/2011 Knee joint replacement status 01/13/2011 Overview: 2013, right Dr Ricardo [facility] 2011: left Dr Priya Ricardo [facility] Dyslipidemia, goal LDL below 70 09/21/19 11 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 neurogenic claudication 02/17/2010 Vitamin D deficiency 10/13/2009 Chronic ischemic heart disease 0 S/P angioplasty with stent 06/30/2009 Overview: 07/01/2009 DUS in the RCA at [facility] Non-toxic multinodular goiter 04/21/2009 Overview: [...] as of this encounter (statuses as of 10/10/2018) Resolved Problems Problem Noted Date Resolved Date [...] as of this encounter (statuses as of 10/10/2018) Immunizations Name Administration Dates Next Due Pneumococcal [...] Encounters Date Type Specialty Care Team Description 12/18/2018 Imaging Radiology 03/20/2019 Office Visit Family Medicine Bj Mario, DO [address] [place] [address] [phone] 03/22/2019 Office Visit Cardiology Yvon Harris PA-C [address] [facility] [place] [address] [phone] Health Maintenance Due Date Last Done Comments *DEPRESSION SCREENING, ANNUAL FOR PTS 18 AND OVER 09/08/2018 CKD GFR USE SMARTSET 00539 02/13/201908/13, 03/08/2018, 02/14/2018, Additional history exists CKD HGB USE SMARTSET 30920 08/14/201908/13, 02/14/2018, 07/25/2016, Additional history exists CKD PHOS USE SMARTSET 61677 08/14/201907/21, 01/09/2017, 04/11/2016, Additional history exists DXA-SCREENING EVERY 7 YRS-USE SMARTSET# 3348 TO ORDER 10/30/2020 10/30/2013, 10/30/2013, 08/24/2009, Additional history exists DIABETES SCREEN EVERY 3 YRS-AGE 45 AND ABOVE 08/13/2021 08/13/2018, 03/08/2018, 02/14/2018, Additional history exists DTaP,Tdap,and Td Vaccines (2 - Td) 08/28/2028 08/28/2018, 04/21/2012, 04/28/2008 PNEUMOCOCCAL ADULT 65 YRS AND OVER Completed 09/22/2014, 03/12/2002 Influenza Vaccine (FLU shot) Completed , 03/23/2017, 04/11/2016, Additional history exists MENINGOCOCCAL (MENACTRA) Aged Out No longer eligible based on patient's age to complete this topic documented as of this encounter Implants Not on filedocumented as of this encounter Advance Directives Documents on File Type Date Recorded Patient Editor Map Expl anation Advance Directives and Living Will 08/13/2009 12:00 AM LIVING WILL Power of Director Funds Development 08/13/2009 12:00 AM DOMONIQUE R OF [place] [employer] PERSON DURABLE HEALTH POA AND HEALTH CARE TREATMENT INSTR Power of Director Funds Development 08/13/2009 12:00 AM DOMONIQUE Madsen OF [employer] PERSON DURABLE HEALTH CARE POA Advanced Directive service a mike default Advanced Directive Advanced Directive Advanced Directive Advanced Directive Advanced Directive Advanced Directive Advanced Directive Advanced Directive Advanced Directive Advanced Directive Advanced Directive Advanced Directive 09/01/2016 8:20 AM
--- OUTSIDE RECORDS SUMMARY | 2023-01-22 23:00 | External Medical Summary | Summary of Care ---
Author Name Unknown Organization [place] [address] Care Team Providers Care Patrol Deputy Sheriff Name Role Phone Bj Mario Primary Care Provider [phone] Reason for Visit * Reason Comments Follow Up 6 month return Encounter Details Date Type Department Care Team Description 09/18/2018 Office Visit Cardiology, [facility] [address] [place] [address] Yvon Harris PA-C [address] [facility] [place] [address] [phone] Chronic ischemic heart disease*; 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); HTN, goal below 140/90; S/P angioplasty with stent; Dyslipidemia, goal LDL below 70; Asymptomatic bilateral carotid artery stenosis Allergies No Known Allergiesdocumented as of this encounter (statuses as of 09/21/2018) Medications Medication Sig Dispensed Refills Start Date [...] metoprolol succinate XL (TOPROL XL) 25 MG [id number]:Chroni c ischemic heart disease take 1/2 tablet once daily 31 Tab 5 05/10/2018 Active lisinopril (PRINIVIL) 10 MG TabletIndications:Charles gn hypertension with CKD (chronic kidney disease) stage III (HCC),Edema take 1 tablet by mouth once daily 30 Tab 5 08/31/2018 Active rOPINIRole (REQUIP) 0.25 MG TabletIndications:Rest less legs syndrome take 1 tablet by mouth at bedtime 30 Tab 5 09/10/2018 Active nystatin 982434 UNIT/ML suspensionIndications: Thrush Take 1 mL by mouth 4 times a day. For thrush. 60 mL 1 09/14/2018 Active pantoprazole (PROTONIX) 40 MG TBECIndications:Gastro esophageal reflux disease without esophagitis Take 1 Tab by mouth daily. 30 Tab 0 09/14/2018 Active documented as of this encounter (statuses as of 09/21/2018) Active Problems Problem Noted Date Benign hypertension with CKD (chronic ki dney disease) stage III 09/06/2017 History of deep vein thrombosis (DVT) of lower extremity 09/08/2016 Status post insertion of drug eluting co ronary artery stent 04/07/2015 Overview: 2009, DUS placed in the mid RCA at [facility] Asymptomatic bilateral carotid artery st enosis 06/10/2014 Raynaud phenomenon 06/13/2011 Knee joint replacement status 01/13/2011 Overview: 2013, right Dr Ricardo [facility] 2011: left Dr Priya Ricardo [facility] Dyslipidemia, goal LDL below 70 09/21/19 11 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 neurogenic claudication 02/17/2010 Vitamin D deficiency 10/13/2009 Chronic ischemic heart disease 0 S/P angioplasty with stent 06/30/2009 Overview: 07/01/2009 DUS in the RCA at [facility] Non-toxic multinodular goiter 04/21/2009 Overview: [...] as of this encounter (statuses as of 09/21/2018) Resolved Problems Problem Noted Date Resolved Date [...] as of this encounter (statuses as of 09/21/2018) Immunizations Name Dates Previously Given Next Due Pneumococcal Conjugate Vacc, 13 Valent (Prevnar) 09/22/2014 Pneumococcal Polysaccharide PPV23 (Pneumovax) 03/12/2002 Seasonal Influenza, Quadriva lent, No Preserve, 6 Mons & Above, IM 03/14/2018,03/23/2017 Seasonal Influenza, Quadriva lent, No Preserve, IM 04/11/2016,04/06/2015 Seasonal Influenza, Trivalen t, with Preserve, 3yr & Above, Split 03/10/2014,04/25/2013,03/20/2012,,02/17/2010,02/04/2009,2007,03/30/2007,02/22/2007, 6,03/12/2003,03/12/2002 TD, Preservative Free 04/21/2012,04/28/2008 TDAP (age 10 [...] Vital Signs Vital Sign Reading Time Taken Blood Pressure 116/56 09/18/2018 8:35 AM EDT Pulse 64 09/18/2018 8:35 AM EDT Temperature - - Respiratory Rate 16 09/18/2018 8:35 AM EDT Oxygen Saturation - - Inhaled Oxygen Concentration - - Weight 83.8 kg (184 lb 12.8 oz) 019 8:35 AM EDT Height - - Body Mass Index 31.86 09/18/2018 8:35 AM EDT documented in this encounter Progress Notes * Yvon Harris PA-C - 09/18/2018 8:45 AM EDT History of Present Illness: Eugenia Hu is an 83-year-old female here today for routine cardiology follow-up. Dyspnea on exertion. This has been a slow gradual process that she attributes to the aging process.This is noted when walking up the cellar steps and/or walking across the street. 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 No exertional chest pain.Chronic stable chest heaviness when first relaxing/retiring for the night, unchanged for years, notrequiring any medication. No sublingual nitroglycerin use. No tachypalpitations. No orthopnea or PND. No lightheadedness, dizziness, near syncope, or true syncope. No fevers or chills. Hospitalized at [facility] in July 2018 with acute diverticulitis with post discharge course complicated by possible thrush. No melena or hematochezia post discharge. Colonoscopy planned at [facility] on 10/09/2018; history ofaspiration with prior colonoscopy. History includes chest pain and abnormal adenosine [...] systolic function, EF 55%. Patient hospitalized at [facility] in June 2012 at which time [...] TTE was interpreted by Dr. Kidd at [facility] on September 02, 2016 as demonstrating [...] status 01/13/[address] Priya Ricardo [facility] Knee joint replacement status 12/15/2013 right [facility] Macular degeneration Ugo Simon MD Menopause 1974 Need for prophylactic hormone replacement therapy (postmenopausal) 1974 Non-toxic multinodular goiter 04/2009 seen on US, repeat -10/2009 Other screening mammogram 10/24/03 Birad Code 2 Other specified glaucoma both eyes, Paul Simon MD, drops used, timolol S/P angioplasty with stent 06/30/09 [facility] Status post insertion of drug eluting coronary artery stent 04/07/20152009, DUS placed in the mid RCA at [facility] Vitamin D deficiency 10/13/2009 Past Surgical History: Procedure Laterality Date ARTHROPLASTY KNEE TOTAL Left 01/13/2011 Left, Dr Priya Ricardo [facility] ARTHROPLASTY KNEE TOTAL Right 12/16/13 Right, Dr Priya Ricardo [facility] CARDIAC CATH SCANNED RESULT 06/30/2009 DUS placed in right coronary, [facility] CARPAL TUNNEL SURGERY Bilateral 2015 bilateral COLONOSCOPY 03/22/2006 normal repeat in 2016 COLONOSCOPY, DIAGNOSTIC (RECTUM) 09/01/2016 diverticulosis/COLONOSCOPY FLEXIBLE PROXIMAL DIAGNOSTIC performed by Kaylie Ford MD at ENDOSCOPY [facility] COLONOSCOPY, GI REFERRAL OP 03/22/2005 diverticulosis, repeat in 10 years for surveillance reasons COLORECTAL CANCER SCREEN;W/FLE 1999 normal, Dr Estrella DENTAL SURGERY PROCEDURE NEC 1970 Dental Surgery Procedure tumor benign palate DEXA SCAN/BONE MINERAL AXIAL 07/2002 normal, repeat 2007 DEXA SCAN/BONE MINERAL AXIAL 07/20/2006 normal repeat in 6-8 years EXERCISE ECHO 09/02/2002 normal, Dr Genao INJECT DX/THER SUBSTANCE INTERLAMINAR LUMBAR/SACRAL W IMAGE GUIDE 01/18/2018 INJECTION SPINE LUMBAR OR SACRAL performed by [facility] Cousins, DO at OR [facility] INJECT DX/THER SUBSTANCE INTERLAMINAR LUMBAR/SACRAL W IMAGE GUIDE 02/12/2018 INJECTION SPINE LUMBAR OR SACRAL performed by Paul B Cousins, DO at OR [facility] MAMMOGRAM - BILATERAL 2.1.02 negative finding. birad [...] left in, Dr Chakraborty in [facility] REMOVE CATARACT, INSERT LENS PROSTH Right 01/05/[address] Messi Simon REMOVE CATARACT, INSERT LENS PROSTH Left 01/28/[address] Messi Simon STENT, COATED/COVERED, WITH DELIVERY SYSTEM 06/30/2009 [employer] Drug Eluding Stent [facility] TOTAL HIP REPLACEMENT & PROSTHESIS 1992 left, Dr Ricardo TOTAL HIP REPLACEMENT & PROSTHESIS 10/2000 right , Dr Ricardo at [facility] Family History Problem Relation Age of Onset Cancer Mother cancer of bone Lung Disorder Father old age with heart failure Heart Disorder Brother [place] at age 62 Heart Disorder Brother angina Social History Socioeconomic History Marital status: Spouse name: Silverio Number of children: 3 Years of education: Not on file Highest education level: Not on file Social Needs Financial resource strain: Not on file Food insecurity - worry: Not on file Food insecurity - inability: Not on file Transportation needs - medical: Not on file Transportation needs - non-medical: Not on file Occupational History 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 Complete Review of Systems: See above. Otherwise negative or noncontributory. Review of patient's allergies indicates: No Known Allergies Outpatient Medications Marked as Taking for the 09/18/18 encounter (Office Visit) with Yvon Harris PA-C Medication Sig nystatin 167510 UNIT/ML suspension Take 1 mL by mouth 4 times a day. For thrush. pantoprazole (PROTONIX) 40 MG TBEC Take 1 Tab by mouth daily. rOPINIRole (REQUIP) 0.25 MG Tablet take 1 tablet by mouth at bedtime lisinopril (PRINIVIL) 10 MG Tablet take 1 tablet by mouth once daily metoprolol succinate XL (TOPROL XL) 25 MG TB24 take 1/2 tablet once daily amoxicillin (AMOXIL) 500 MG Capsule TAKE 4 CAPSULES BY MOUTH 1 HOUR PRIOR TO PROCEDURE. acetaminophen (TYLENOL EXTRA STRENGTH) 500 MG Tablet Take 500 mg by mouth every 6 hours as needed for Pain. rosuvastatin (CRESTOR) 20 MG Tablet take 1 tablet by mouth once daily TRAVATAN Z 0.004 % ophthalmic solution Instill 1 Drop into both eyes every evening. VITAMIN D 1000 UNIT PO CAPS 1 capsule daily ASPIRIN 81 MG PO CHEW One pill by mouth once a day with food OBJECTIVE/PHYSICAL EXAMINATION: BP 116/56 | Pulse 64 | Resp 16 | Wt 184 lbs 12.8 oz (83.825kg) | BMI 31.86 kg/m | BSA 1.94 m | General: NAD. HEENT: Normocephalic. Atraumatic. PER. Conjunctiva pink, sclera clear. Bilateral carotid bruits. No overt JVD. Heart: RRR, 60 bpm. Soft systolic murmur. Lungs: Clear to auscultation. Abdomen: +BS. Soft. Nontender. No masses or organomegaly. Extremities: Minimal distal edema. No clubbing. No cyanosis. Pulses: radial=2/4, posterior tibial=1/4 on the left and nonpalpable on the right. Additional Data: November 2016 Carotid Duplex: Less than 50% STEPHENIE stenosis. 50-69% LICA stenosis. August 28, 2017 DSE Interpretation Summary (as [...] on current study. EKG today reveals sinus bradycardia at 59 bpm. QTc is 405 ms. ASSESSMENT: 1. Stable ASCVD. 2. Hypertension. BP well controlled. 3. Hyperlipidemia, on moderate intensity statin therapy. LDL 55 mg/dL in January 2018. 4. History of carotid disease without infarction RECOMMENDATIONS/PLAN: 1. Continue current cardiac medications as prescribed 2. Carotid duplex due next in November 2018 3. Cardiology follow-up in 6 months or as needed. 4. ER with emergencies Yvon Harris PA-C Department of Cardiology documented in this encounter Procedure Notes * Robert Kidd MD - 09/18/2018 8:41 AM EDT Associated Order(s): EKG REASON FOR STUDY: Chronic ischemic heart disease CONCLUSIONS: Sinus bradycardia Otherwise normal ECG When compared with ECG of 14-AUG-2017 10:27, No significant change was found Ventricular Rate: 59 Atrial Rate: 59 MD Interval: 172 QRS Duration: 100 QT/QTc: 410/405 ms P-R-T Branch: 72 : 30 : 32 degrees documented in this encounter Nursing Notes * Carmen Srinivasan RN - 09/18/2018 8:34 AM EDT Examination Room: 2 Name: Eugenia Hu Date of : (1935). Reason for Visit: 6 month return Interim Hospitalization(s): [facility] - Diverticulitis 08/13 to 08/16 Problems/Concerns: SOB w/walking Chest Pain/SOB: Denied [facility] is a way you can talk to your provider online through e-mail. Would you like to sign up? I can activate it for you? IN PROCESS documented in this encounter Plan of Treatment Upcoming Encounters Date Type Specialty Care Team Description 10/09/2018 Procedure Only Endoscopy Alo Jean MD [address] [place] [address] [phone] 12/18/2018 Imaging Radiology 03/20/2019 Office Visit Family Medicine Bj Mario, DO [address] [facility] [address] [phone] 03/22/2019 Office Visit Cardiology Yvon Harris PA-C [address] [place] [address] [phone] Scheduled Tests Name Priority Associated Diagnoses Order S chedule VASC DUPLEX CAROTID BILAT Routine Asymptomatic bilateral carotid artery stenosis Expected: 12/18/2018, Expires: 09/19/2019 Health Maintenance Due Date Last Done Comments *DEPRESSION SCREENING, ANNUAL FOR PTS 18 AND OVER 09/08/2018 CKD GFR USE SMARTSET 47904 02/13/201908/13, 03/08/2018, 02/14/2018, Additional history exists CKD HGB USE SMARTSET 47512 08/14/201908/13, 02/14/2018, 07/25/2016, Additional history exists CKD PHOS USE SMARTSET 90046 08/14/201907/21, 01/09/2017, 04/11/2016, Additional history exists DXA-SCREENING [...] Priority Date/Time Associated Diagnosis Comments EKG Routine 09/18/2018 8:41 AM EDT Chronic ischemic heart disease documented in this encounter Results * EKG (09/18/2018 8:41 AM EDT) Procedure Note Robert Kidd MD - 09/18/2018 8:41 AM EDT REASON FOR STUDY: Chronic ischemic heart disease CONCLUSIONS: Sinus bradycardia Otherwise normal ECG When compared with ECG of 14-AUG-2017 10:27, No significant change was found Ventricular Rate: 59 Atrial Rate: 59 MD Interval: 172 QRS Duration: 100 QT/QTc: 410/405 ms P-R-T Branch: 72 : 30 : 32 degrees Performing Organization Address City/State/Zipcod e Phone Number [facility] documented in this encounter Visit Diagnoses Diagnosis Chronic ischemic heart disease- Primary Chronic ischemic heart disease, unspecified Benign hypertension [...] infarction documented in this encounter Advance Directives Patient has advance care planning documents on file. For more information, please contact: [place] [phone]"
--- OUTSIDE RECORDS SUMMARY | 2023-01-22 23:00 | External Medical Summary | Summary of Care ---
Author Name Unknown Organization [place] [address] Care Team Providers Care Branch Service Associate Name Role Phone Bj Mario Primary Care Provider [phone] Reason for Visit * Reason Comments Follow Up Encounter Details Date Type Department Care Team Description 01/24/2019 Telephone Interventional Pain Center, [facility] [address] [place] [address] Paul Berg [address] [place] [id number] Follow Up Allergies No Known Allergiesdocumented as of this encounter (statuses as of 01/24/2019) Medications Medication Sig Dispensed Refills Start Date [...] metoprolol succinate XL (TOPROL XL) 25 MG [id number]:Chronic ischemic heart disease take 1/2 tablet once [...] as of this encounter (statuses as of 01/24/2019) Active Problems Problem Noted Date Benign hypertension with CKD (chronic ki dney disease) stage III 09/06/2017 History of deep vein thrombosis (DVT) of lower extremity 09/08/2016 Status post insertion of drug eluting co ronary artery stent 04/07/2015 Overview: 2009, DUS placed in the mid RCA at [facility] Asymptomatic bilateral carotid artery st enosis 06/10/2014 Raynaud phenomenon 06/13/2011 Knee joint replacement status 01/13/2011 Overview: 2013, right Dr Ricardo [facility] 2011: left Dr Priya Ricardo [facility] Dyslipidemia, goal LDL below 70 09/21/19 11 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 neurogenic claudication 02/17/2010 Vitamin D deficiency 10/13/2009 Chronic ischemic heart disease 0 S/P angioplasty with stent 06/30/2009 Overview: 07/01/2009 DUS in the RCA at [facility] Non-toxic multinodular goiter 04/21/2009 Overview: seen [...] as of this encounter (statuses as of 01/24/2019) Resolved Problems Problem Noted Date Resolved Date [...] as of this encounter (statuses as of 01/24/2019) Immunizations Name Administration Dates Next Due Pneumococcal [...] Telephone Encounter - Lorri Gotti LPN - 01/24/2019 10:46 AM EDT Patient reports 70% improvement with injection-is tolerable. documented in this encounter Plan of Treatment Upcoming Encounters Date Type Specialty Care Team Description 01/30/2019 Procedure Only Endoscopy Alo Jean MD [address] [facility] [place] [address] 03/20/2019 Office Visit Family Medicine Bj Mario, DO [address] [place] [address] Health Maintenance Due Date Last Done Comments Influenza Vaccine (FLU shot) (#1) 2019 03/14/2018, 03/23/2017, 04/11/2016, Additional history exists CKD GFR USE SMARTSET 04801 02/13/201908/13, 03/08/2018, 02/14/2018, Additional history exists CKD HGB USE SMARTSET 35074 08/14/201908/13, 02/14/2018, 07/25/2016, Additional history exists CKD PHOS USE SMARTSET 24012 08/14/201907/21, 01/09/2017, 04/11/2016, Additional history exists DXA-SCREENING [...] Documents on File Type Date Recorded Patient Medical Coder Expl anation Advance Directives and Living Will 08/13/2009 12:00 AM LIVING WILL Power of Vp Securities 08/13/2009 12:00 AM DOMONIQUE Madsen OF [place] OPERATOR HELPER DURABLE HEALTH POA AND HEALTH CARE TREATMENT INSTR Power of Vp Securities 08/13/2009 12:00 AM DOMONIQUE R OF [place] OPERATOR HELPER DURABLE HEALTH CARE POA Advanced Directive service a mike default Advanced Directive Advanced Directive Advanced Directive Advanced Directive Advanced Directive Advanced Directive Advanced Directive Advanced Directive Advanced Directive Advanced Directive Advanced Directive Advanced Directive 09/01/2016 8:20 AM
--- OUTSIDE RECORDS SUMMARY | 2023-01-22 23:00 | External Medical Summary | Summary of Care ---
Author Name Unknown Organization [place] [address] Care Team Providers Care River Rafting Guide Name Role Phone Bj Mario DO Primary Care Provider [phone] Reason for Referral * Evaluate & Treat - Unlimited Visits (Within 10 days (routine)) Status Reason Specialty Diagnoses / Procedures Referred By Contact Referred To Contact Pending Review Specialty Services Required Gastroenterology Diagnoses Gastroesophageal reflux disease without esophagitis Malina Martinez PA-C [address] [facility] [place] [address] Reason for Visit * Reason Comments Test Results Encounter Details Date Type Department Care Team Description 01/07/[address] [facility] [address] [place] [address] Malina Martinez PA-C [address] [facility] [place] [address] [phone] Test Results Allergies No Known Allergiesdocumented as of this encounter (statuses as of 01/07/2019) Medications Medication Sig Dispensed Refills Start Date [...] metoprolol succinate XL (TOPROL XL) 25 MG [id number]:Chronic ischemic heart disease take 1/2 tablet once daily 31 Tab 5 05/10/2018 Active lisinopril (PRINIVIL) 10 MG TabletIndications:Rick n hypertension with CKD (chronic kidney disease) [...] as of this encounter (statuses as of 01/07/2019) Active Problems Problem Noted Date Benign hypertension [...] 01/13/2011 Overview: 2013, right Dr Ricardo [facility] 2011: [...] as of this encounter (statuses as of 01/07/2019) Resolved Problems Problem Noted Date Resolved Date [...] as of this encounter (statuses as of 01/07/2019) Immunizations Name Administration Dates Next Due Pneumococcal [...] encounter Miscellaneous Notes * Telephone Encounter - Malina Martinez PA-C - 01/07/2019 2:45 PM EDT I put in a referral * Telephone Encounter - Dilma Wong OSA - 01/07/2019 2:08 PM EDT Spoke to patient I scheduled her with Gastro can you put in a referral or does that need to come from her PCP, it said she needs one with her insurance Thanks Dilma * Telephone Encounter - Malina Chen LPN - 01/07/2019 12:16 PM EDT Message left to call office. * Telephone Encounter - Malina Martinez PA-C - 01/07/2019 12:03 PM EDT Please let patient know that I received the results of her barium swallow study and she has a smallto moderate sized hiatal hernia, esophageal dysmotility and reflux. Recommend that she follow up with GI for these issues. documented in this encounter Plan of Treatment Upcoming Encounters Date Type Specialty Care Team Description 01/24/2019 Office Visit Gastroenterology Rosmery Arevalo CRNP [address] [place] [address] [phone] 03/20/2019 Office Visit Family Medicine Bj Mario DO [address] [facility] [place] [address] [phone] Scheduled Referrals Name Type Priority Associated Diagnoses Order Schedule GASTROENTEROLOGY REFERRAL OP Referral Within 10 days (routine) Gastroesophageal reflux disease without esophagitis Ordered: 01/07/2019 Health Maintenance Due Date Last Done Comments Influenza Vaccine (FLU shot) (#1) 2019 03/14/2018, 03/23/2017, 04/11/2016, Additional history exists CKD GFR USE SMARTSET 78936 02/13/201908/13, 03/08/2018, 02/14/2018, Additional history exists CKD HGB USE SMARTSET 44323 08/14/201908/13, 02/14/2018, 07/25/2016, Additional history exists CKD PHOS USE SMARTSET 94821 08/14/201907/21, 01/09/2017, 04/11/2016, Additional history exists DXA-SCREENING [...] reflux disease without esophagitis- Primary Esophageal reflux documented in this encounter Advance Directives Documents on File Type Date Recorded Patient Tire Buffer Expl anation Advance Directives and Living Will 08/13/2009 12:00 AM LIVING WILL Power of Computer Programmer Chief 08/13/2009 12:00 AM DOMONIQUE R OF WOOL SACKER DURABLE HEALTH POA AND HEALTH CARE TREATMENT INSTR Power of Computer Programmer Chief 08/13/2009 12:00 AM DOMONIQUE R OF WOOL SACKER DURABLE HEALTH CARE POA Advanced Directive service a mike default Advanced Directive Advanced Directive Advanced Directive Advanced Directive Advanced Directive Advanced Directive Advanced Directive Advanced Directive Advanced Directive Advanced Directive Advanced Directive Advanced Directive 09/01/2016 8:20 AM
--- OUTSIDE RECORDS SUMMARY | 2023-01-22 23:00 | External Medical Summary | Summary of Care ---
Author Name Unknown Organization [place] [address] Care Team Providers Care Barrel Turner Name Role Phone Bj Mario DO Primary Care Provider [phone] Reason for Visit * Reason Comments NEW PATIENT dysphagia * Evaluate & Treat - Unlimited Visits (Within 10 days (routine)) Status Reason Specialty Diagnoses / Procedures Referred By Contact Referred To Contact Pending Review Specialty Services Required Otolaryngology Diagnoses Globus sensation Irritation of both ears Bj Mario DO [address] [place] [address] Encounter Details Date Type Department Care Team Description 12/24/2018 Office [facility] [address] [place] [address] Malina [facility] PA-C [facility] [place] [address] [phone] Dysphagia, unspecified type* Allergies No Known Allergiesdocumented as of this encounter (statuses as of 12/24/2018) Medications Medication Sig Dispensed Refills Start Date [...] metoprolol succinate XL (TOPROL XL) 25 MG [id number]:Chronic ischemic heart disease take 1/2 tablet once daily 31 Tab 5 05/10/2018 Active lisinopril (PRINIVIL) 10 MG TabletIndications:Benfrederic n hypertension with CKD (chronic kidney disease) [...] as of this encounter (statuses as of 12/24/2018) Active Problems Problem Noted Date Benign hypertension [...] as of this encounter (statuses as of 12/24/2018) Resolved Problems Problem Noted Date Resolved Date [...] as of this encounter (statuses as of 12/24/2018) Immunizations Name Administration Dates Next Due Pneumococcal [...] Pressure - - Pulse - - Temperature 36.6 C (97.9 F) 12/24/2018 10:25 AM E DT Respiratory Rate - - Oxygen Saturation - - Inhaled Oxygen Concentration - - Weight 84.4 kg (186 lb 1.6 oz) 12/24/2018 10:25 AM EDT Height 161 cm (5' 3.39") 12/24/2018 10:25 AM EDT Body Mass Index 32.57 12/24/2018 10:25 AM EDT documented in this encounter Progress Notes * Malina Martinez PA-C - 12/24/2018 10:34 AM EDT 12/24/2018 HISTORY OF PRESENT ILLNESS This 83 year old female is seen at the request of Bj Mario DO for the initial evaluation of dysphagia. Patient reports that her symptoms started in July after she was treated with antibiotics for diverticulitis. She developed thrush after she was discharged from [place], she was treated with Nysatin swishand swallow with resolution of oral thrush. Dysphagia is to pills only, no dysphagia to solids or liquids. No swallowing evaluation has been preformed. No sore throat. She has noticed some hoarseness and has also had a cough and throat clearing. No history fo smoking. She does have acid reflux, she was started on Protonix while inpatient. Has never had EGD. 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 2000, left 1992 HTN, goal below 140/90 Knee joint replacement status 01/13/[address] Priya Ricardo [facility] Knee joint replacement status 12/15/2013 right [facility] Macular degeneration Ugo Simon MD Menopause 1973 Need for prophylactic hormone replacement therapy (postmenopausal) 1973 Non-toxic multinodular goiter 04/2009 seen on US, repeat 4-10/2009 Other screening mammogram 10/24/03 Birad Code 2 Other specified glaucoma both eyes, Paul Simon MD, drops used, timolol S/P angioplasty with stent 06/30/09 [facility] Status post insertion of drug eluting coronary artery stent 04/07/20152009, DUS placed in the mid RCA at [facility] Vitamin D deficiency 10/13/2009 Past Surgical History: Procedure Laterality Date ARTHROPLASTY KNEE TOTAL Left 01/13/2011 Left, Dr Priya Rciardo [facility] ARTHROPLASTY KNEE TOTAL Right 12/16/13 Right, Dr Priya Ricardo [facility] CARDIAC CATH SCANNED RESULT 06/30/2009 DUS placed in right coronary, [facility] CARPAL TUNNEL SURGERY Bilateral 2015 bilateral COLONOSCOPY 03/22/2006 normal repeat in 2015 COLONOSCOPY, DIAGNOSTIC (RECTUM) 09/01/2016 diverticulosis/COLONOSCOPY FLEXIBLE PROXIMAL DIAGNOSTIC performed by Kaylie Ford MD at ENDOSCOPY [facility] COLONOSCOPY, DIAGNOSTIC (RECTUM) 10/09/2018 diverticulosis/[facility] COLONOSCOPY, GI REFERRAL OP 03/22/2005 diverticulosis, repeat [...] INJECTION SPINE LUMBAR OR SACRAL performed by [facility] Cousins, DO at OR [facility] INJECT DX/THER SUBSTANCE INTERLAMINAR LUMBAR/SACRAL W IMAGE GUIDE 02/12/2018 INJECTION SPINE LUMBAR OR SACRAL performed by Roosevelt Azam Cousins, DO at OR [facility] MAMMOGRAM - BILATERAL 2.1.02 negative finding. birad code 1 MAMMOGRAM - BILATERAL 4.25.03 negative findings, yearly mammograms appropriate, birad code 1-diffuse scattered calcifications MAMMOGRAM - BILATERAL 04/10/07 birad code 2 MAMMOGRAM SCREENING-BILATERAL 03/02/05 benign findings, yearly mammograms appropriate, birad code 2 MAMMOGRAM SCREENING-BILATERAL .13.06 benign findings, yearly mammograms appropriate, birad code 2 MAMMOGRAM SCREENING-BILATERAL 07/03/08 birad code 2 NUCLEAR SCAN OF HEART MUSCLE 05/31/09, 11/23/10 abnormal PARTIAL HYSTERECTOMY 1974 one ovary left in, Dr Chakraborty in [facility] REMOVE CATARACT, INSERT LENS PROSTH Right 01/05/[address] Messi Simon REMOVE CATARACT, INSERT LENS PROSTH Left 01/28/[address] Messi Simon STENT, COATED/COVERED, WITH DELIVERY SYSTEM 06/30/2009 [employer] Drug Eluding Stent [facility] TOTAL HIP REPLACEMENT & PROSTHESIS 1992 left, Dr Ricardo TOTAL HIP REPLACEMENT & PROSTHESIS 10/2000 right , Dr Ricardo at [facility] Social History Socioeconomic History Marital status: Spouse [...] file Gets together: Not on file Attends alevism service: Not on file Active member of [...] Self-Exams Not Asked Social History Narrative born [place] in [facility] since 1953 ; 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 Family History Problem Relation Age of Onset Cancer Mother cancer of bone Lung Disorder Father old age with heart failure Heart Disorder Brother [place] at age 62 Heart Disorder Brother angina Medications: Current Outpatient Medications Medication Sig Dispense Refill pantoprazole (PROTONIX) 40 MG TBEC Take 1 Tab by mouth daily. 30 Tab 5 rosuvastatin (CRESTOR) 20 MG Tablet take 1 tablet by mouth once daily 30 Tab 11 rOPINIRole (REQUIP) 0.25 MG Tablet take 1 tablet by mouth at bedtime 30 Tab 5 lisinopril (PRINIVIL) 10 MG Tablet take 1 tablet by mouth once daily 30 Tab 5 metoprolol succinate XL (TOPROL XL) 25 MG TB24 take 1/2 tablet once daily 31 Tab 5 acetaminophen (TYLENOL EXTRA STRENGTH) 500 [...] of patient's allergies indicates: No Known Allergies REVIEW OF SYSTEMS Negative for constitutional, heart, lung, liver, kidney, digestive, hematologic, neurologic, rheumatologic, or endocrine complaints except as per history of present illness and past medical history. Physical Examination: Temp (Src) 97.9 (Tympanic) | Ht 5' 3.386" (1.610m) | Wt 186 lbs 1.6 oz (84.414kg) | BMI 32.57 kg/m | BSA 1.94 m General: this is a healthy appearing female who appears their stated age. The patient is alert and appropriately verbally conversant without hoarseness. Face: The face was inspected and no cutaneous masses or lesions were visualized. There was no erythema or edema noted. Facial movement was symmetric without weakness. No skin lesions were detected. There was no sinus tenderness elicited. The parotid and submandibular glands were normal to palpation. Eyes: Examination of the eyes revealed no lesions. Pupils were equal, round, and reactive to light and accommodation. Extra-ocular muscle function was intact. No nystagmus was observed. Cranial Nerves: Cranial nerves II, III, IV, and were noted to be intact via extra-ocular muscle movement testing. Cranial nerve VII noted to be intact and symmetric by facial movement. Cranial nerve VIII was tested with tuning fork examination and revealed symmetric hearing. Cranial nerves IX and X noted to be intact by gag reflex and palatal movement. Cranial nerve XII noted to be intact by active and symmetric tongue movement. Nose: Septum nonobstructing, turbinates normal, no masses, polyps, or mucopus. Oral Cavity: Examination of the oral cavity revealed no mass lesions nor infection. The palate was noted to be intact without evidence of clefting. The tongue exhibited normal mobility. Mucosa was moist without lesion. The lips were free of lesion. Gums were free of inflammation. Dentition: Unremarkable Oropharynx: The oral pharynx was free of mass lesion or mucosal abnormality. The palate was noted to be without lesions. The uvula was normal appearing. The tonsils were unremarkable. Nasopharynx/hypopharynx/larynx: See procedure documentation Ears: Examination of the ears revealed that the auricles were normally formed with no lesions. The external auditory canals were cleaned of any obstructing cerumen. The tympanic membranes were intactand freely mobile to pneumatoscopy without perforation or significant retraction pockets. Neck: Visualization and palpation of the neck revealed no mass lesions, no thyromegaly or thyroid masses. No skin lesions or inflammatory processes were detected. The cervical musculature was normal to palpation. Lymphatics (cervical): There were no palpable lymph nodes in the posterior triangle, submandibular triangle, jugulodigastric region, or central neck PROCEDURE NOTE Because of inability to cooperate with the mirror exam or in order to get a better assessment of the larynx, fiberoptic examination of the larynx was performed. The nose was first topically decongested with topical oxymetazoline 0.05% spray and topically anesthetized with topical Lidocaine 4% spray. The patient tolerated the procedure well. Patient should refrain from eating or drinking for 30-45minutes due to anesthesia of the pharynx and possible interference with swallowing. Fiberoptic examination revealed no mass lesions. Vocal cord mobility was normal without paralysis or paresis. No vocal cord masses were visualized. The pyriform sinuses were free of any mass lesions. There was no significant edema or erythema of the larynx. Encounter Diagnoses Name Primary? Dysphagia, unspecified type Yes Plan: Findings of examination and recommendations were discussed with the patient. Laryngoscopy is unremarkable and recommend barium and video swallowing studies. She will be contacted with results and further recommendations. Malina Martinez PA-C 12/24/2018 11:16 AM documented in this encounter Nursing Notes * Rolando Santamaria CMA - 12/24/2018 10:22 AM EDT Chief Complaint Patient presents with NEW PATIENT dysphagia Eugenia Hu is a 83 year old female who presents today with difficulty swallowing that she states began 3 months ago when she was admitted to [facility] on 08/13/2018 and shewas discharged on 08/16/2018. She states that she had diverticulitis and was given antibiotics. Shegot thrush shortly after she was placed on the antibiotics. She also mentions itchiness in her ears. documented in this encounter Plan of Treatment Upcoming Encounters Date Type Specialty Care Team Description 12/27/2018 Hospital Encounter Surgery Paul Berg, DO [address] [place] [address] [phone] 12/27/2018 Surgery Surgery Paul Berg, DO [address] [place] [address] [phone] INJECTION SPINE LUMBAR OR SACRAL 03/20/2019 Office Visit Family Medicine Bj Mario, DO [address] [facility] [address] [phone] 03/22/2019 Office Visit Cardiology Yvon Harris PA-C [address] [place] [address] [phone] Scheduled Orders Name Type Priority Associated Diagnoses Orde r Schedule FLUORO SWALLOWING FUNCTION W VIDEO CINE Medical Imaging Routine Dysphagia, unspecified type Ordered: 12/24/2018 FLUORO ESOPHAGRAM ENTIRE WO VIDEO Medical Imaging Routine Dysphagia, unspecified type Ordered: 12/24/2018 Health Maintenance Due Date Last Done Comments Influenza Vaccine (FLU shot) (#1) 2018 03/14/2018, 03/23/2017, 04/11/2016, Additional history exists CKD GFR USE SMARTSET 88863 02/13/201908/13, 03/08/2018, 02/14/2018, Additional history exists CKD HGB USE SMARTSET 21583 08/14/201908/13, 02/14/2018, 07/25/2016, Additional history exists CKD PHOS USE SMARTSET 33402 08/14/201907/21, 01/09/2017, 04/11/2016, Additional history exists DXA-SCREENING [...] as of this encounter Visit Diagnoses Diagnosis Dysphagia, unspecified type- Primary documented in this encounter Advance Directives Documents on File Type Date Recorded Patient Oiler Helper Expl anation Advance Directives and Living Will 08/13/2009 12:00 AM LIVING WILL Power of Pastry Cook 08/13/2009 12:00 AM DOMONIQUE Madsen OF SHIFT MGR DURABLE HEALTH POA AND HEALTH CARE TREATMENT INSTR Power of Pastry Cook 08/13/2009 12:00 AM DOMONIQUE R OF SHIFT MGR DURABLE HEALTH CARE POA Advanced Directive service a mike default Advanced Directive Advanced Directive Advanced Directive Advanced Directive Advanced Directive Advanced Directive Advanced Directive Advanced Directive Advanced Directive Advanced Directive Advanced Directive Advanced Directive 09/01/2016 8:20 AM
--- OUTSIDE RECORDS SUMMARY | 2023-01-22 23:00 | External Medical Summary | Summary of Care ---
Author Name Unknown Organization [place] [address] Care Team Providers Care System Consultant Name Role Phone Bj Mario DO Primary Care Provider [phone] Reason for Visit * Reason Comments Acute Patient c/o having h aving hard time to swallow. States it feels caught on the R side of her throat. States coughing at times. Patient also requesting to get her R ear check. Encounter Details Date Type Department Care Team Description 11/13/2018 Office Visit General Internal Medicine [facility] [address] [place] [address] Suki Fisher MD [address] [place] [address] [phone] Pharyngeal dysphagia*; Risk and functional assessment; Gastroesophageal reflux disease, esophagitis presence not specified; Excessive cerumen in ear canal, left Allergies No Known Allergiesdocumented as of this encounter (statuses as of 11/13/2018) Medications Medication Sig Dispensed Refills Start Date [...] 11 10/09/2017 Active rosuvastatin (CRESTOR) 20 MG TabletIndications:D yslipidemia, goal LDL below 70 take 1 tablet by mouth once daily 31 Tab 11 10/31/2017 Active acetaminophen (TYLENOL EXTRA STRENGTH) 500 MG Tablet Take 500 mg by mouth every 6 hours as needed for Pain. 0 Active amoxicillin (AMOXIL) 500 MG CapsuleIndications: Prophylactic antibiotic,History of bilateral hip replacements,Hip joint replacement status,Status post total bilateral knee replacement TAKE 4 CAPSULES BY MOUTH 1 HOUR PRIOR TO PROCEDURE. 4 Cap 6 04/27/2018 Active metoprolol succinate XL (TOPROL XL) 25 MG [id number]:Chr onic ischemic heart disease take 1/2 tablet once daily 31 Tab 5 05/10/2018 Active lisinopril (PRINIVIL) 10 MG TabletIndications:B enign hypertension with CKD (chronic kidney disease) stage III (HCC),Edema take 1 tablet by mouth once daily 30 Tab 5 08/31/2018 Active rOPINIRole (REQUIP) 0.25 MG TabletIndications:R estless legs syndrome take 1 tablet by mouth at bedtime 30 Tab 5 09/10/2018 Active pantoprazole (PROTONIX) 40 MG TBECIndications:Gas troesophageal reflux disease without esophagitis Take 1 Tab by mouth daily. 30 Tab 0 09/14/2018 Active nystatin 329028 UNIT/ML suspensionIndicatio ns:Thrush Take 1 mL by mouth 4 times a day. For thrush. 60 mL 1 09/14/2018 11/13/2018 Discontinued documented as of this encounter (statuses as of 11/13/2018) Active Problems Problem Noted Date Benign hypertension [...] status 01/13/2011 Overview: 2013, right Dr Ricardo [facility] 2011: left Dr Priya Ricardo [facility] Dyslipidemia, goal LDL below 70 09/21/19 11 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 neurogenic claudication 02/17/2010 Vitamin D deficiency 10/13/2009 Chronic ischemic heart disease 0 S/P angioplasty with stent 06/30/2009 Overview: 07/01/2009 DUS in the RCA at [facility] Non-toxic multinodular goiter 04/21/2009 Overview: seen on [...] as of this encounter (statuses as of 11/13/2018) Resolved Problems Problem Noted Date Resolved Date [...] as of this encounter (statuses as of 11/13/2018) Immunizations Name Administration Dates Next Due Pneumococcal [...] Sign Reading Time Taken Comments Blood Pressure 116/58 11/13/2018 3:54 PM EDT Pulse 60 11/13/2018 3:54 PM EDT Temperature 36.6 C (97.9 F) 11/13/2018 3:54 PM ED T Respiratory Rate 16 11/13/2018 3:54 PM EDT Oxygen Saturation - - Inhaled Oxygen Concentration - - Weight 83.9 kg (185 lb) 11/13/2018 3:54 PM EDT Height 161 cm (5' 3.39") 11/13/2018 3:54 PM EDT Body Mass Index 32.37 11/13/2018 3:54 PM EDT documented in this encounter Patient Instructions * Patient Instructions* Divina Galloway LPN - 11/13/2018 3:49 PM EDT Patient Instructions - Fall Prevention (This [...] 10 times. Repeat this throughout the day. Jelani Patient Education Copyright 2009 - 2010 [...] Sit down to get dressed. Use a aleaxnder pack or backpack to keep your hands free. Get help for jobs that mean climbing, even on a stepstool. myseekit Patient Education Copyright 2008 - 2010 myseekit except where otherwise noted. Urinary Incontinence Plan [...] Wear support stockings (TEDs)if you have edema Divina Galloway LPN 11/13/2018 Kegel Exercises Kegel exercises dont require special [...] even more effective. Jelani Patient Education Copyright 2008 - 2010 [...] documented in this encounter Progress Notes * Divina Galloway LPN - 11/13/2018 5:01 PM EDT Ear Irrigation done per Dr. Fisher's order. Ear Irrigation Procedure: Irrigation Solution: Up to 200 ml of solution may be instilled with one Procedure Solution Used: Water 180 ml/ Hydrogen Peroxide 20 ml (Mixed) Ear(s) Irrigated: Left Response: Particulate Returned,Patient tolerated it well. made aware,cleared patient to go. Divina Galloway LPN * Suki Fisher MD - 11/13/2018 4:23 PM EDT SUBJECTIVE: Eugenia Hu is a 83 year old female. Chief Complaint Patient presents with Acute Patient c/o having having hard time to swallow. States it feels caught on the R side of her throat.States coughing at times. Patient also requesting to get her R ear check. HPI: Patient presents today for an acute appointment with symptoms of difficulty swallowing pills.States she feels a gets stuck in the left side of her throat. No difficulty with swallowing liquidsor solids otherwise. History of reflux but does not take her Protonix on a daily basis. And she does take it in the middle of the night sometimes when she gets heartburn. She tries to keep her head of the bed elevated, does not eat too close to bedtime. No weight loss Last prescription was done august for 30 tablets. Denies any chest pain or shortness of breath. She also wants to have her ears checked, saw her town manager and was recommended to have her ears flushed Wt Readings from Last 3 Encounters: 11/13/18 83.9 kg (185 lb) 09/18/18 83.8 kg (184 lb 12.8 oz) 09/14/18 84 kg (185 lb 3.2 oz) Immunization History Administered Date(s) Administered Pneumococcal Conjugate Vacc, 13 Valent (Prevnar) 09/22/2014 Pneumococcal Polysaccharide PPV23 (Pneumovax) 03/12/2002 Seasonal Influenza, Quadrivalent, No Preserve, 6 Mons & Above, IM 03/23/2017, 03/14/2018 Seasonal Influenza, Quadrivalent, No Preserve, IM 04/06/2015, 04/11/2016 Seasonal Influenza, Trivalent, with Preserve, 3yr & Above, Split 03/12/2002, 03/12/2003, 03/01/2006, 02/22/2007, 03/30/2007, 04/28/2008, 02/04/2009, 02/17/2010, 03/18/2011, 03/20/2012, 04/25/2013, 03/10/2014 TD, Preservative Free 04/28/2008, 04/21/2012 TDAP (age 10 and older)(Boostrix) 08/28/2018 Varicella Zoster Vaccine (Adult) 06/11/2008 Current Outpatient Medications Medication Sig Dispense Refill pantoprazole (PROTONIX) 40 MG TBEC Take 1 Tab by mouth daily. 30 Tab 0 rOPINIRole (REQUIP) 0.25 MG Tablet take 1 tablet by mouth at bedtime 30 Tab 5 lisinopril (PRINIVIL) 10 MG Tablet take 1 tablet by mouth once daily 30 Tab 5 metoprolol succinate XL (TOPROL XL) 25 MG TB24 take 1/2 tablet once daily 31 Tab 5 rosuvastatin (CRESTOR) 20 MG Tablet take 1 tablet by mouth once daily 31 Tab 11 nitroglycerin (NITROSTAT) 0.4 MG SUBL 1 [...] once a day with food 100 5 amoxicillin (AMOXIL) 500 MG Capsule TAKE 4 CAPSULES BY MOUTH 1 HOUR PRIOR TO PROCEDURE. 4 Cap 6 acetaminophen (TYLENOL EXTRA STRENGTH) 500 MG Tablet Take 500 mg by mouth every 6 hours as needed for Pain. Patient Active Problem List Diagnosis Code Advance [...] kidney disease) stage III (HCC) I12.9, N18.3 Outpatient Medications Prior to Visit Medication Sig Dispense Refill pantoprazole (PROTONIX) 40 MG TBEC Take 1 Tab by mouth daily. 30 Tab 0 rOPINIRole (REQUIP) 0.25 MG Tablet take 1 tablet by mouth at bedtime 30 Tab 5 lisinopril (PRINIVIL) 10 MG Tablet take 1 tablet by mouth once daily 30 Tab 5 metoprolol succinate XL (TOPROL XL) 25 MG TB24 take 1/2 tablet once daily 31 Tab 5 rosuvastatin (CRESTOR) 20 MG Tablet take 1 tablet by mouth once daily 31 Tab 11 nitroglycerin (NITROSTAT) 0.4 MG SUBL 1 [...] once a day with food 100 5 [DISCONTINUED] nystatin [id number] UNIT/ML suspension Take 1 mL by mouth 4 times a day. For thrush.60 mL 1 amoxicillin (AMOXIL) 500 MG Capsule TAKE 4 CAPSULES BY MOUTH 1 HOUR PRIOR TO PROCEDURE. 4 Cap 6 acetaminophen (TYLENOL EXTRA STRENGTH) 500 MG Tablet Take 500 mg by mouth every 6 hours as needed for Pain. No facility-administered medications prior to visit. Last reviewed on 11/13/2018 3:51 PM by Divina Galloway LPN Review of patient's allergies indicates: No Known Allergies OBJECTIVE: BP 116/58 | Pulse 60 | Temp (Src) 97.9 (Tympanic) | Resp 16 | Ht 5' 3.386" (1.610m) | Wt 185 lbs (83.915kg) | BMI 32.37 kg/m | BSA 1.94 m PHYSICAL EXAM: General: alert, healthy, no distress, well nourished and well developed Ears: External ears normal, Canals scant cerumen rt-removed curetteTM's Normal on Right, left TM P seen due to cerumen antr canal Oropharynx: no exudate, no erythema Neck: supple, no adenopathy Heart: regular Rhythm and rate, no murmurs Lungs: lungs clear to auscultation ASSESSMENT/PLAN: Pharyngeal dysphagia (Primary) rec using ppi daily--she will call for RF when ready---should dec to 20mg then Ct GERD precautions If sx persist refer ENT Risk and functional assessment - PAT SCRN FOR FALL RISK - PRES OR ABS OF URIN INCONT Gastroesophageal reflux disease, esophagitis presence not specified Excessive cerumen in ear canal, left - REMOVAL IMPACTED CERUMEN IRRIGATION/LAVAGE, UNILAT Cc-pcp Follow Up: Return if symptoms worsen or fail to improve. (This note was completed using the dictation program Fluency Direct. As such, there may be misspellings, word substitutions, or other variations that should not change the essence of the clinical content of this encounter note. If there is need for further clarification, please direct questions to the provider listed above.) Patient and / caregiver verbalizes understanding of above instructions and agrees with plan of care. Suki Fisher MD 11/13/2018 documented in this encounter Nursing Notes * Divina Galloway LPN - 11/13/2018 3:51 PM EDT Patient c/o having having hard time to swallow. States it feels caught on the R side of her throat.States coughing at times. Patient also requesting to get her R ear check. documented in this encounter Plan of Treatment Upcoming Encounters Date Type Specialty Care Team Description 12/18/2018 Imaging Radiology 03/20/2019 Office Visit Family Medicine Bj Mario, DO [address] [facility] [address] [phone] 03/22/2019 Office Visit Cardiology Yvon Harris PA-C [address] [facility] [place] [address] [phone] Health Maintenance Due Date Last Done Comments *DEPRESSION SCREENING, ANNUAL FOR PTS 18 AND OVER 09/08/2018 CKD GFR USE SMARTSET 03726 02/13/201908/13, 03/08/2018, 02/14/2018, Additional history exists CKD HGB USE SMARTSET 88543 08/14/201908/13, 02/14/2018, 07/25/2016, Additional history exists CKD PHOS USE SMARTSET 95218 08/14/201907/21, 01/09/2017, 04/11/2016, Additional history exists DXA-SCREENING [...] as of this encounter Visit Diagnoses Diagnosis Pharyngeal dysphagia- Primary Dysphagia, pharyngeal phase Risk and functional assessment Screening for unspecified condition Gastroesophageal reflux disease, esophagitis presence not specified Excessive cerumen in ear canal, left documented in this encounter Advance Directives Documents on File Type Date Recorded Patient Vp Information Technology Expl anation Advance Directives and Living Will 08/13/2009 12:00 AM LIVING WILL Power of Church History Teacher 08/13/2009 12:00 AM DOMONIQUE R OF CONSUMER SAFETY INSPECTOR DURABLE HEALTH POA AND HEALTH CARE TREATMENT INSTR Power of Church History Teacher 08/13/2009 12:00 AM DOMONIQUE R OF CONSUMER SAFETY INSPECTOR DURABLE HEALTH CARE POA Advanced Directive service a mike default Advanced Directive Advanced Directive Advanced Directive Advanced Directive Advanced Directive Advanced Directive Advanced Directive Advanced Directive Advanced Directive Advanced Directive Advanced Directive Advanced Directive 09/01/2016 8:20 AM
--- OUTSIDE RECORDS SUMMARY | 2023-01-22 23:00 | External Medical Summary | Summary of Care ---
Author Name Unknown Organization [place] [address] Care Team Providers Care Fabrication Department Supervisor Name Role Phone Bj Mario DO Primary Care Provider [phone] Reason for Visit * Reason Comments Consultation * Evaluate & Treat - Unlimited Visits (Within 10 days (routine)) Status Reason Specialty Diagnoses / Procedures Referred By Contact Referred To Contact Pending Review Specialty Services Required Gastroenterology Diagnoses Gastroesophageal reflux disease without esophagitis Mikayla Ascencio PA-C [address] [facility] [place] [address] Encounter Details Date Type Department Care Team Description 01/24/2019 Office Visit Gastroenterology, [facility] [address] [facility] [place] [address] Rosmery Arevalo CRNP [address] [facility] [place] [address] Thrush, oral*; Dysphagia, unspecified type Allergies No Known Allergiesdocumented as [...] metoprolol succinate XL (TOPROL XL) 25 MG [id number]:Chronic ischemic heart disease take 1/2 tablet once [...] status 01/13/2011 Overview: 2013, right Dr Ricardo [facility] [place] [...] Sign Reading Time Taken Comments Blood Pressure 124/68 01/24/2019 9:56 AM EDT Pulse 60 01/24/2019 9:56 AM EDT Temperature 36.4 C (97.6 F) 01/24/2019 9:56 AM ED T Respiratory Rate - - Oxygen Saturation - - Inhaled Oxygen Concentration - - Weight 83.9 kg (185 lb) 01/24/2019 9:56 AM EDT Height - - Body Mass Index 32.37 12/24/2018 10:25 AM EDT documented in this encounter Progress Notes * Rosmery Arevalo CRNP - 01/24/2019 10:05 AM EDT Consult requested by Ref: MIKAYLA ASCENCIO[[id number]] [address] [facility] [place] [address] (office) [phone] (fax) 01/24/19 CC: Dysphagia HPI: 83 year old female pt of Dr. Mario with a hx of hyperlipidemia, HTN, macular degeneration,CAD S/P stenting in 2009 presents for dysphagia. She describes difficulty swallowing pills, "getting stuck," at the base of the throat. In general, no difficulty swallowing foods or liquids but she did notice one episode of slight discomfort while swallowing milk last night. She first noticed the dysphagia after taking antibiotics for diverticulitis. At the time, she was tx'ed for thrush which cleared up but the swallowing did not change. No coughing/spewing during swallowing. No abdominal pain. She did have some reflux but this was resolved after starting pantoprazole in July. No melena or hematochezia, no unexplained weight loss. Appetite is good. Prior work up to Date: Video swallow with small to moderate hiatal hernia, esophageal dysmotility, GERD. No prior EGD. ROS: No lightheadedness, dizziness No fevers, chills, sweats No vision loss, eye pain, redness No oral ulcers No chest pain, + palpitations, no new, follows with cardiology No syncope No cough, shortness of breath, exertional dyspnea No rashes or other skin lesions No new joint pain, swelling, myalgias No edema No bleeding tendencies or excessive bruising ALLERGIES: Review of patient's allergies indicates: No Known Allergies PMH/PSH/Soc Hx reviewed, significant for: hyperlipidemia, HTN, macular degeneration, CAD S/P stenting in 2009, hip and knee replacements, lumbar spine injections, cataract surgery. She is a anddoes not smoke or drink alcohol. Fam hx: Mother bone cancer; Father heart failure; Brother/s: CAD, [place]. Outpatient Medications Marked as Taking for the 01/24/19 encounter (Office Visit) with BHASKAR Ho Medication Sig pantoprazole (PROTONIX) 40 MG TBEC Take 1 Tab by mouth daily. rosuvastatin (CRESTOR) 20 MG Tablet take 1 tablet by mouth once daily rOPINIRole (REQUIP) 0.25 MG Tablet take 1 tablet by mouth at bedtime lisinopril (PRINIVIL) 10 MG Tablet take 1 tablet by mouth once daily metoprolol succinate XL (TOPROL XL) 25 MG TB24 take 1/2 tablet once daily nitroglycerin (NITROSTAT) 0.4 MG SUBL 1 every 5 min as needed with chest pain up to 3 doses in 15 minutes TRAVATAN Z 0.004 % ophthalmic solution Instill 1 Drop into both eyes every evening. VITAMIN D 1000 UNIT PO CAPS 1 capsule daily ASPIRIN 81 MG PO CHEW One pill by mouth once a day with food EXAM: BP 124/68 | Pulse 60 | Temp 97.6 | Wt 185 lbs (83.915kg) | BMI 32.37 kg/m | BSA 1.94 m GENERAL: 83 year old female well developed and well nourished in no acute distress SKIN: no rashes, ulcers, or spider angiomata HEENT: no evidence of thrush, upper dentures, normocephalic, sclera clear, pharynx normal NECK: supple, no lymphadenopathy, no masses or thyroid enlargement LUNGS: clear to auscultation anterior and posterior HEART: regular rate & rhythm, no murmurs and no gallops ABDOMEN: normo-active bowel sounds, soft, non-tender, non-distended no masses, no hepatosplenomegaly, no rebound or guarding, no bruits EXTREMITIES: no palmar erythema, no edema, no skin discoloration, no clubbing, no cyanosis NEURO: no lateralizing findings, Sensory/Motor grossly normal IMPRESSION: 83 year old female with dysphagia, likely caused by age related changes to the esophagus, reflux (seen on video swallow), and esophageal dysmotility. RECOMMENDATIONS: 1. Low dose, daily acid lift team technician to be used medical terminologist as acid suppression can prevent esophageal dysmotility. 2. Eat slowly, chew thoroughly, no distractions while eating. 3. Consider taking pills in applesauce. 4. EGD 5. Recheck here after EGD to review results. Thank you for the opportunity to be involved in the care of this patient. BHASKAR Ho [facility] Gastroenterology documented in this encounter Nursing Notes * Annmarie Hansen RN - 01/24/2019 9:53 AM EDT Chief Complaint Patient presents with Consultation Patient here for dysphagia, she had a barium swallow that revealed a hernia and reflux. She does feel as if pills and some foods get stuck in her throat. She has been started on protonix a few monthsago and has not seen any change with this. documented in this encounter Plan of Treatment Upcoming Encounters Date Type Specialty Care Team Description 01/30/2019 Procedure Only Endoscopy Alo Jean MD [address] [facility] [place] [address] [phone] 03/20/2019 Office Visit Family Medicine Bj Mario, DO [address] [facility] [place] [address] [phone] Scheduled Orders Name Type Priority Associated Diagnoses Orde r Schedule EGD, FLEXIBLE, DIAGNOSTIC Procedures Routine Thrush, oral Dysphagia, unspecified type Ordered: 01/24/2019 Health Maintenance Due Date Last Done Comments Influenza Vaccine (FLU shot) (#1) 2019 03/14/2018, 03/23/2017, 04/11/2016, Additional history exists CKD GFR USE SMARTSET 41935 02/13/201908/13, 03/08/2018, 02/14/2018, Additional history exists CKD HGB USE SMARTSET 96652 08/14/201908/13, 02/14/2018, 07/25/2016, Additional history exists CKD PHOS USE SMARTSET 32642 08/14/201907/21, 01/09/2017, 04/11/2016, Additional history exists DXA-SCREENING [...] as of this encounter Visit Diagnoses Diagnosis Thrush, oral- Primary Candidiasis of mouth Dysphagia, unspecified type documented in this encounter Advance Directives Documents on File Type Date Recorded Patient Stock Feeder Expl anation Advance Directives and Living Will 08/13/2009 12:00 AM LIVING WILL Power of Network Engineer Administrator 08/13/2009 12:00 AM DOMONIQUE R OF INTERNET MANAGER DURABLE HEALTH POA AND HEALTH CARE TREATMENT INSTR Power of Network Engineer Administrator 08/13/2009 12:00 AM DOMONIQUE R OF INTERNET MANAGER DURABLE HEALTH CARE POA Advanced Directive service a mike default Advanced Directive Advanced Directive Advanced Directive Advanced Directive Advanced Directive Advanced Directive Advanced Directive Advanced Directive Advanced Directive Advanced Directive Advanced Directive Advanced Directive 09/01/2016 8:20 AM
--- OUTSIDE RECORDS SUMMARY | 2023-01-22 23:00 | External Medical Summary | Summary of Care ---
Author Name Unknown Organization [place] [address] Care Team Providers Care Filler Shredding Machine Loader Name Role Phone Bj Mario DO Primary Care Provider [phone] Reason for Visit * Reason Comments Acute Pt states that she h as had thrush no and has been treated now for it for three times. States that she is now having a hard time swallowing her medications now. She is concerned the thrush is in the back of her throat. 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 30 Tab 5 12/06/2018 Active pantoprazole (PROTONIX) 40 MG TBECIndications:Gas troesophageal reflux disease without esophagitis Take 1 Tab by mouth daily. 30 Tab 0 09/14/2018 12/06/2018 Discontinued documented as of this encounter (statuses as of 12/11/2018) Active Problems Problem Noted Date Benign hypertension with CKD (chronic ki dney disease) stage III 09/06/2017 History of deep vein thrombosis (DVT) of lower extremity 09/08/2016 Status post insertion of drug eluting co ronary artery stent 04/07/2015 Overview: 2009, DUS placed in the mid RCA at [facility] Asymptomatic bilateral carotid artery st enosis 06/10/2014 Raynaud phenomenon 06/13/2011 Knee joint replacement status 01/13/2011 Overview: 2013, right Dr Ricardo [facility] 2011: left Dr Priya Ricardo [facility] Dyslipidemia, goal LDL below 70 09/21/19 11 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 neurogenic claudication 02/17/2010 Vitamin D deficiency 10/13/2009 Chronic ischemic heart disease 0 S/P angioplasty with stent 06/30/2009 Overview: 07/01/2009 DUS in the RCA at [facility] Non-toxic multinodular goiter 04/21/2009 Overview: seen [...] as of this encounter (statuses as of 12/11/2018) Resolved Problems Problem Noted Date Resolved Date [...] as of this encounter (statuses as of 12/11/2018) Immunizations Name Administration Dates Next Due Pneumococcal [...] Sign Reading Time Taken Comments Blood Pressure 104/64 12/06/2018 5:05 PM EDT Pulse 62 12/06/2018 5:05 PM EDT Temperature 36.6 C (97.9 F) 12/06/2018 5:05 PM ED T Respiratory Rate 16 12/06/2018 5:05 PM EDT Oxygen Saturation 98% 12/06/2018 5:05 PM EDT Inhaled Oxygen Concentration - - Weight 83.6 kg (184 lb 3.2 oz) 12/06/2018 5:05 P M EDT Height - - Body Mass Index 32.23 11/13/2018 3:54 PM EDT documented in this encounter Progress Notes * Bj Mario, DO - 12/06/2018 5:20 PM EDT Subjective: Eugenia Hu is a 83 year old female. Chief Complaint Patient presents with Acute Pt states that she has had thrush no and has been treated now for it for three times. States that she is now having a hard time swallowing her medications now. She is concerned the thrush is in the back of her throat. HPI:We put her on nystatin swish and swallow and it helped a little but did not clear it. Seen again. Dr. Fisher had recommedned more regular protonix. She did not understand her and did not start this. She feels like something is physical in her throat. She does not see a plaque. PMHx, meds, and allergies reviewed Patient Active [...] Current Outpatient Medications Medication Sig Dispense Refill rosuvastatin (CRESTOR) 20 MG Tablet take 1 tablet by mouth once daily 30 Tab 11 pantoprazole (PROTONIX) 40 MG TBEC Take 1 Tab by mouth daily. 30 Tab 0 rOPINIRole (REQUIP) 0.25 MG Tablet take 1 tablet by mouth at bedtime 30 Tab 5 lisinopril (PRINIVIL) 10 MG Tablet take 1 tablet by mouth once daily 30 Tab 5 metoprolol succinate XL (TOPROL XL) 25 MG TB24 take 1/2 tablet once daily 31 Tab 5 amoxicillin (AMOXIL) 500 MG Capsule TAKE [...] allergies indicates: No Known Allergies OBJECTIVE: BP 104/64 | Pulse 62 | Temp (Src) 97.9 (Tympanic) | Resp 16 | Wt 184 lbs 3.2 oz (83.553kg) | BMI 32.23 kg/m | BSA 1.93 m | SaO2 98% Estimated body mass index is 32.23 kg/m as calculated from the following: Height as of 11/13/18: 1.61 m (5' 3.39"). Weight as of this encounter: 83.6 kg (184 lb 3.2 oz). BP Readings from Last 3 Encounters: 12/06/18 104/64 11/13/18 116/58 09/18/18 116/56 Wt Readings from Last 3 Encounters: 12/06/18 83.6 kg (184 lb 3.2 oz) 11/13/18 83.9 kg (185 lb) 09/18/18 83.8 kg (184 lb 12.8 oz) ROS: Negative except for above PHYSICAL EXAM: General: alert, healthy and no distress Head: Normocephalic, No masses, lesions, tenderness or abnormalities Nose: no mucosal erythema, no mucosal edema, no purulent discharge Oropharynx: no exudate, no erythema, lips, buccal mucosa, and tongue normal and mucous membranes are moist Neck: supple, no adenopathy, thyroid normal size, non-tender, without nodularity ASSESSMENT/Plan Gastroesophageal reflux disease without esophagitis (Primary) - pantoprazole (PROTONIX) 40 MG TBEC; Take 1 Tab by mouth daily. Chronic ischemic heart disease 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) HTN, goal below 140/90 We discussed what a globus sensation is and she will start the PPI regularly. The above was discussed and understanding was expressed. Bj Mario DO documented in this encounter Nursing Notes * Oli Tierney LPN - 12/06/2018 5:05 PM EDT Chief Complaint Patient presents with Acute Pt states that she has had thrush no and has been treated now for it for three times. States that she is now having a hard time swallowing her medications now. She is concerned the thrush is in the back of her throat. documented in this encounter Plan of Treatment Upcoming Encounters Date Type Specialty Care Team Description 12/18/2018 Imaging Radiology 12/19/2018 Office Visit Family Medicine Bj Mario DO [address] [place], [place] [address] [phone] 03/20/2019 Office Visit Family Medicine Bj Mario, DO [address] [place] [address] [phone] 03/22/2019 Office Visit Cardiology Yvon Harris PA-C [address] [facility] [place] [address] [phone] Health Maintenance Due Date Last Done Comments Influenza Vaccine (FLU shot) (#1) 2018 03/14/2018, 03/23/2017, 04/11/2016, Additional history exists CKD GFR USE SMARTSET 16014 02/13/201908/13, 03/08/2018, 02/14/2018, Additional history exists CKD HGB USE SMARTSET 83631 08/14/201908/13, 02/14/2018, 07/25/2016, Additional history exists CKD PHOS USE SMARTSET 59179 08/14/201907/21, 01/09/2017, 04/11/2016, Additional history exists DXA-SCREENING [...] reflux disease without esophagitis- Primary Esophageal reflux Chronic ischemic heart disease Chronic ischemic heart disease, unspecified 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 I through stage IV, or unspecified HTN, goal below 140/90 Unspecified essential hypertension documented in this encounter Advance Directives Documents on File Type Date Recorded Patient Accessories Repairer Expl anation Advance Directives and Living Will 08/13/2009 12:00 AM LIVING WILL Power of Kerfer Machine Operator 08/13/2009 12:00 AM DOMONIQUE R OF MAGNETIC HEALER DURABLE HEALTH POA AND HEALTH CARE TREATMENT INSTR Power of Kerfer Machine Operator 08/13/2009 12:00 AM DOMONIQUE R OF MAGNETIC HEALER DURABLE HEALTH CARE POA Advanced Directive service a mike default Advanced Directive Advanced Directive Advanced Directive Advanced Directive Advanced Directive Advanced Directive Advanced Directive Advanced Directive Advanced Directive Advanced Directive Advanced Directive Advanced Directive 09/01/2016 8:20 AM
--- OUTSIDE RECORDS SUMMARY | 2023-01-22 23:00 | External Medical Summary | Summary of Care ---
Author Name Unknown Organization [place] [address] Care Team Providers Care Cook Ice Cream Name Role Phone Bj Mario DO Primary Care Provider [phone] Encounter Details Date Type Department Care Team Description 08/31/2018 Result Scan Unspecified Department <No scans attached> Allergies No Known Allergiesdocumented as of this encounter (statuses as of 09/18/2018) Medications Medication Sig Dispensed Refills Start Date [...] metoprolol succinate XL (TOPROL XL) 25 MG [id number]:Chroni c ischemic heart disease take 1/2 tablet once daily 31 Tab 5 05/10/2018 Active lisinopril (PRINIVIL) 10 MG TabletIndications:Charles gn hypertension with CKD (chronic kidney disease) stage III (HCC),Edema take 1 tablet by mouth once daily 30 Tab 5 08/31/2018 Active documented as of this encounter (statuses as of 09/18/2018) Active Problems Problem Noted Date Benign hypertension with CKD (chronic ki dney disease) stage III 09/06/2017 History of deep vein thrombosis (DVT) of lower extremity 09/08/2016 Status post insertion of drug eluting co ronary artery stent 04/07/2015 Overview: 2009, DUS placed in the mid RCA at [facility] Asymptomatic bilateral carotid artery st enosis 06/10/2014 Raynaud phenomenon 06/13/2011 Knee joint replacement status 01/13/2011 Overview: 2013, right Dr Ricardo [facility] 2011: left Dr Priya Ricardo [facility] Dyslipidemia, goal LDL below 70 09/21/19 11 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 neurogenic claudication 02/17/2010 Vitamin D deficiency 10/13/2009 Chronic ischemic heart disease 0 S/P angioplasty with stent 06/30/2009 Overview: 07/01/2009 DUS in the RCA at [facility] Non-toxic multinodular goiter 04/21/2009 Overview: seen [...] as of this encounter (statuses as of 09/18/2018) Resolved Problems Problem Noted Date Resolved Date [...] as of this encounter (statuses as of 09/18/2018) Immunizations Name Dates Previously Given Next Due [...] occ Sex Assigned at Date Recorded Female Job Start Date Occupation Industry Not on file Not on file Not on file Travel History Travel Start Travel End documented as of this encounter Plan of Treatment Upcoming Encounters Date Type Specialty Care Team Description 10/09/2018 Procedure Only Endoscopy Alo Jean MD [address] [place] [address] [phone] 12/18/2018 Imaging Radiology 03/20/2019 Office Visit Family Medicine Bj Mario, DO [address] [place] [address] [phone] 03/22/2019 Office Visit Cardiology Yvon Harris PA-C [address] [facility] [place] [address] [phone] Health Maintenance Due Date Last Done Comments *DEPRESSION SCREENING, ANNUAL FOR PTS 18 AND OVER 09/08/2018 CKD GFR USE SMARTSET 24320 02/13/201908/13, 03/08/2018, 02/14/2018, Additional history exists CKD HGB USE SMARTSET 68506 08/14/201908/13, 02/14/2018, 07/25/2016, Additional history exists CKD PHOS USE SMARTSET 74158 08/14/201907/21, 01/09/2017, 04/11/2016, Additional history exists DXA-SCREENING [...] Date/Time Associated Diagnosis Comments RADIOLOGY SCANNED RESULT 08/31/2018 documented in this encounter Results * RADIOLOGY SCANNED RESULT (08/31/2018) Narrative Performed At documented in this encounter Advance Directives Patient has advance care planning documents on file. For more information, please contact: [place] [phone]
--- OUTSIDE RECORDS SUMMARY | 2023-01-22 23:00 | External Medical Summary | Summary of Care ---
Author Name Unknown Organization [place] [address] Care Team Providers Care Administrative Support Assoc Name Role Phone Bj Mario DO Primary Care Provider [phone] Reason for Visit * Reason Comments Previsit Planning Encounter Details Date Type Department Care Team Description 09/17/2018 Telephone Family Practice [facility] [address] [place] [address] Bj Mario DO [address] [facility] [place], [place] [id number] Previsit Planning Allergies No Known Allergiesdocumented as of this encounter (statuses as of 09/17/2018) Medications Medication Sig Dispensed Refills Start Date [...] metoprolol succinate XL (TOPROL XL) 25 MG [id number]:Chroni c ischemic heart disease take 1/2 tablet once daily 31 Tab 5 05/10/2018 Active lisinopril (PRINIVIL) 10 MG TabletIndications:Charles gn hypertension with CKD (chronic kidney disease) stage III (HCC),Edema take 1 tablet by mouth once daily 30 Tab 5 08/31/2018 Active rOPINIRole (REQUIP) 0.25 MG TabletIndications:Rest less legs syndrome take 1 tablet by mouth at bedtime 30 Tab 5 09/10/2018 Active nystatin 311912 UNIT/ML suspensionIndications: Thrush Take 1 mL by mouth 4 times a day. For thrush. 60 mL 1 09/14/2018 Active pantoprazole (PROTONIX) 40 MG TBECIndications:Gastro esophageal reflux disease without esophagitis Take 1 Tab by mouth daily. 30 Tab 0 09/14/2018 Active documented as of this encounter (statuses as of 09/17/2018) Active Problems Problem Noted Date Benign hypertension [...] status 01/13/2011 Overview: 2013, right Dr Ricardo [facility] [...] as of this encounter (statuses as of 09/17/2018) Resolved Problems Problem Noted Date Resolved Date [...] as of this encounter (statuses as of 09/17/2018) Immunizations Name Dates Previously Given Next Due [...] encounter Miscellaneous Notes * Telephone Encounter - Lois Elizabeth LPN - 09/17/2018 8:33 AM EDT Patient contacted for Care Gaps Comprehensive Care Outreach. Last Office Visit: 09/14/2018 Next Office Visit: 03/20/2019 Scheduled Provider(s): Bj Mario DO Health Maintenance Due Topic Date Due *DEPRESSION SCREENING, ANNUAL FOR PTS 18 AND OVER 09/08/2018 Outreach action taken: Contacted: Left message. AWV documented in this encounter Plan of Treatment Upcoming Encounters Date Type Specialty Care Team Description 09/18/2018 Office Visit Cardiology Yvon Harris, PATylerC [address] [place] [address] [phone] 10/09/2018 Procedure Only Endoscopy Alo Jean MD [address] [place] [address] [phone] 03/20/2019 Office Visit Family Medicine Bj Mario DO [address] [place] [facility] [address] [phone] Health Maintenance Due Date Last Done Comments *DEPRESSION SCREENING, ANNUAL FOR PTS 18 AND OVER 09/08/2018 CKD GFR USE SMARTSET 30901 02/13/201908/13, 03/08/2018, 02/14/2018, Additional history exists CKD HGB USE SMARTSET 69712 08/14/201908/13, 02/14/2018, 07/25/2016, Additional history exists CKD PHOS USE SMARTSET 25748 08/14/201907/21, 01/09/2017, 04/11/2016, Additional history exists DXA-SCREENING [...] filedocumented as of this encounter Advance Directives Patient has advance care planning documents on file. For more information, please contact: [place] [phone]
--- OUTSIDE RECORDS SUMMARY | 2023-01-22 23:00 | External Medical Summary | Summary of Care ---
Author Name Unknown Organization [place] [address] Care Team Providers Care Summer Babysitter Name Role Phone Bj Mario DO Primary Care Provider [phone] Reason for Visit * Reason Comments eRx-Medication Refill Encounter Details Date Type Department Care Team Description 11/15/2018 Refill Cardiology, [facility] [address] [place] [address] Chaim Harris PA-C [address] [facility] [place] [address] [phone] Dyslipidemia, goal LDL below 70 Allergies No Known Allergiesdocumented as of this encounter (statuses as of 11/15/2018) Medications Medication Sig Dispensed Refills Start Date [...] metoprolol succinate XL (TOPROL XL) 25 MG [id number]:Chr onic ischemic heart disease take 1/2 tablet [...] mouth daily. 30 Tab 0 09/14/2018 Active rosuvastatin (CRESTOR) 20 MG TabletIndications:D yslipidemia, goal LDL below 70 take 1 tablet by mouth once daily 30 Tab 11 11/15/2018 Active rosuvastatin (CRESTOR) 20 MG TabletIndications:D yslipidemia, goal LDL below 70 take 1 tablet by mouth once daily 31 Tab 11 10/31/2017 11/15/2018 Discontinued documented as of this encounter (statuses as of 11/15/2018) Active Problems Problem Noted Date Benign hypertension [...] as of this encounter (statuses as of 11/15/2018) Resolved Problems Problem Noted Date Resolved Date [...] as of this encounter (statuses as of 11/15/2018) Immunizations Name Administration Dates Next Due Pneumococcal [...] Telephone Encounter - Chaim Harris PA-C - 11/15/2018 10:39 AM EDT Signed Prescriptions: Disp Refills rosuvastatin (CRESTOR) 20 MG Tablet 30 Tab 11 Sig: take 1 tablet by mouth once daily Authorizing Provider: CHAIM HARRIS * Telephone Encounter - Anika Kelly LPN - 11/15/2018 9:33 AM EDT Pending Prescriptions: Disp Refills rosuvastatin (CRESTOR) 20 MG Tablet [Phar*30 Tab 11 Sig: take 1 tablet by mouth once daily * Telephone Encounter - Anika Kelly LPN - 11/15/2018 9:33 AM EDT Pending Prescriptions: Disp Refills rosuvastatin (CRESTOR) 20 MG Tablet [Phar*30 Tab 11 Sig: take 1 tablet by mouth once daily Last Office Visit: 09/18/2018 Next Office Visit: 03/22/2019 Scheduled Provider(s): Chaim Harris PA-C Last medication order date: 10/31/2017 Patient Active Problem List Diagnosis Code Advance [...] kidney disease) stage III (HCC) I12.9, N18.3 Labs: CREATININE-OUTSIDE LAB(MG/DL) Apollo Dt/Tm Resulted Value Status 08/13/18 08/14/18 1.53* FINAL POTASSIUM-OUTSIDE LAB(MMOL/L) Apollo Dt/Tm Resulted Value Status 08/13/18 08/14/18 3.9 FINAL TSH(uIU/mL) Apollo Dt/Tm Resulted Value Status 10/02/17 1:29P 10/02/17 3.36 FINAL LDL (CALCULATED)(mg/dL) Apollo Dt/Tm Resulted Value Status 02/14/18 9:47A 02/14/18 55 FINAL LDL DIRECT(REFLEX)(mg/dL) Apollo Dt/Tm Resulted Value Status 02/14/18 9:47A 02/14/18 FINAL Value: NOT APPLICABLE ALT(U/L) Apollo Dt/Tm Resulted Value Status 02/14/18 9:47A 02/14/18 8* FINAL Hemoglobin AIC Results: No HEMOGLOBIN, A1C components found * Telephone Encounter - Grace Grady LPN - 11/15/2018 9:30 AM EDT Pending Prescriptions: Disp Refills rosuvastatin (CRESTOR) 20 MG Tablet [Phar*30 Tab 11 Sig: take 1 tablet by mouth once daily * Telephone Encounter - Grace Grady LPN - 11/15/2018 9:29 AM EDT Last Office Visit: 09/18/2018 Pending Prescriptions: Disp Refills rosuvastatin (CRESTOR) 20 MG Tablet [Phar*30 Tab 11 Sig: take 1 tablet by mouth once daily Next Office Visit: 03/22/2019 Scheduled Provider(s): Chaim Harris PA-C documented in this encounter Plan of Treatment Upcoming Encounters Date Type Specialty Care Team Description 12/18/2018 Imaging Radiology 03/20/2019 Office Visit Family Medicine Bj Mario, DO [address] [place] [address] [phone] 03/22/2019 Office Visit Cardiology Chaim Harris PA-C [address] [place] [address] [phone] Health Maintenance Due Date Last Done Comments CKD GFR USE SMARTSET 77300 02/13/201908/13, 03/08/2018, 02/14/2018, Additional history exists CKD HGB USE SMARTSET 52041 08/14/201908/13, 02/14/2018, 07/25/2016, Additional history exists CKD PHOS USE SMARTSET 95491 08/14/201907/21, 01/09/2017, 04/11/2016, Additional history exists DXA-SCREENING [...] Documents on File Type Date Recorded Patient Tool Keeper Expl anation Advance Directives and Living Will 08/13/2009 12:00 AM LIVING WILL Power of Brass Chaser 08/13/2009 12:00 AM DOMONIQUE R OF YARD GOODS SALESPERSON DURABLE HEALTH POA AND HEALTH CARE TREATMENT INSTR Power of Brass Chaser 08/13/2009 12:00 AM DOMONIQUE R OF YARD GOODS SALESPERSON DURABLE HEALTH CARE POA Advanced Directive service a mike default Advanced Directive Advanced Directive Advanced Directive Advanced Directive Advanced Directive Advanced Directive Advanced Directive Advanced Directive Advanced Directive Advanced Directive Advanced Directive Advanced Directive 09/01/2016 8:20 AM
--- OUTSIDE RECORDS SUMMARY | 2023-01-22 23:00 | External Medical Summary | Summary of Care ---
Author Name Unknown Organization [place] [address] Care Team Providers Care Felt Hat Mellowing Machine Operator Name Role Phone Bj Mario Primary Care Provider [phone] Reason for Visit * Reason Comments Back Pain Encounter Details Date Type Department Care Team Description 12/21/2018 Office Visit Interventional Pain Center, [facility] [address] [place] [address] Paul Berg [address] [place] [address] [phone] Spinal stenosis of lumbar region with neurogenic claudication*; Prophylactic antibiotic; History of bilateral hip replacements; Hip joint replacement status; Status post total bilateral knee replacement Allergies No Known Allergiesdocumented as of this encounter (statuses as of 12/21/2018) Medications Medication Sig Dispensed Refills Start Date [...] metoprolol succinate XL (TOPROL XL) 25 MG [id number]:Chr onic ischemic heart disease take 1/2 tablet [...] mouth daily. 30 Tab 5 12/06/2018 Active amoxicillin (AMOXIL) 500 MG CapsuleIndications: Prophylactic antibiotic,History of bilateral hip replacements,Hip joint replacement status,Status post total bilateral knee replacement TAKE 4 CAPSULES BY MOUTH 1 HOUR PRIOR TO PROCEDURE. 4 Cap 6 04/27/2018 12/21/2018 Discontinued documented as of this encounter (statuses as of 12/21/2018) Active Problems Problem Noted Date Benign hypertension with CKD (chronic ki dney disease) stage III 09/06/2017 History of deep vein thrombosis (DVT) of lower extremity 09/08/2016 Status post insertion of drug eluting co ronary artery stent 04/07/2015 Overview: 2009, DUS placed in the mid RCA at [facility] Asymptomatic bilateral carotid artery st enosis 06/10/2014 Raynaud phenomenon 06/13/2011 Knee joint replacement status 01/13/2011 Overview: 2013, right Dr Ricardo [facility] 2011: left Dr Priya Ricardo [facility] Dyslipidemia, goal LDL below 70 09/21/19 11 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 neurogenic claudication 02/17/2010 Vitamin D deficiency 10/13/2009 Chronic ischemic heart disease 08/17/201 0 S/P angioplasty with stent 06/30/2009 Overview: 07/01/2009 DUS in the RCA at [facility] Non-toxic multinodular goiter 04/21/2009 [...] as of this encounter (statuses as of 12/21/2018) Resolved Problems Problem Noted Date Resolved Date [...] as of this encounter (statuses as of 12/21/2018) Immunizations Name Administration Dates Next Due Pneumococcal [...] as of this encounter Progress Notes * Cousins, Paul Nascimento, DO - 12/21/2018 11:26 AM EDT Name: Eugenia Hu Date: 12/21/2018 HPI: Eugenia Hu is a 83 year old female seen in the pain management clinic for f/u after last appointment in July. Was scheduled for caudal JACKIE, but procedure cx because she was hospitalized withdiverticulitis. She would now like to be scheduled again. Having ongoing low back/buttock pain withambulation, relieved by sitting. Did well with JACKIE last given in 2017 for severe spinal stenosis. No motor weakness or bowel/bladder dysfunction. 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, left 1992 HTN, goal below 140/90 Knee joint replacement status 01/13/[address] Priya Ricardo [facility] Knee joint replacement status 12/15/2013 right [facility] Macular degeneration Ugo Simon MD Menopause 1974 Need for prophylactic hormone replacement therapy (postmenopausal) 1974 Non-toxic multinodular goiter 04/2009 seen on US, repeat -10/2009 Other screening mammogram 10/24/03 Birad Code 2 Other specified glaucoma both eyes, aPul Simon MD, drops used, timolol S/P angioplasty with stent 06/30/09 [facility] Status post insertion of drug eluting coronary artery stent 04/07/20152009, DUS placed in the mid RCA at [facility] Vitamin D deficiency 10/13/2009 Past Surgical History: Procedure Laterality Date ARTHROPLASTY KNEE TOTAL Left 01/13/2011 Left, Dr Priya Ricardo MDNATASHA ARTHROPLASTY KNEE TOTAL Right 12/16/13 Right, Dr Priya Ricardo [facility] CARDIAC CATH SCANNED RESULT 06/30/2009 DUS placed in right coronary, [facility] CARPAL TUNNEL SURGERY Bilateral 2014 bilateral COLONOSCOPY 03/22/2006 normal repeat in 2016 COLONOSCOPY, DIAGNOSTIC (RECTUM) 09/01/2016 diverticulosis/COLONOSCOPY FLEXIBLE PROXIMAL DIAGNOSTIC performed by Kaylie Ford MD at ENDOSCOPY [facility] COLONOSCOPY, DIAGNOSTIC (RECTUM) 10/09/2018 diverticulosis/[facility] COLONOSCOPY, GI REFERRAL OP [...] INJECTION SPINE LUMBAR OR SACRAL performed by [place] Azam Cousins, DO at OR [facility] INJECT DX/THER SUBSTANCE INTERLAMINAR LUMBAR/SACRAL W IMAGE GUIDE 02/12/2018 INJECTION SPINE LUMBAR OR SACRAL performed by Paul Azam Cousins, DO at OR [facility] MAMMOGRAM - BILATERAL 2.1.02 negative finding. [...] one ovary left in, Dr Chakraborty in [facility] REMOVE CATARACT, INSERT LENS PROSTH Right 01/05/[address] Messi Simon REMOVE CATARACT, INSERT LENS PROSTH Left 01/28/[address] Messi Simon STENT, COATED/COVERED, WITH DELIVERY SYSTEM 06/30/2009 [employer] Drug Eluding Stent [facility] TOTAL HIP REPLACEMENT & PROSTHESIS 1992 left, Dr Ricardo TOTAL HIP REPLACEMENT & PROSTHESIS 10/2000 right , Dr Ricardo at [facility] Current Outpatient Medications Medication Sig Dispense [...] 1/2 tablet once daily 31 Tab 5 VITAMIN D 1000 UNIT PO CAPS 1 capsule daily 30 Cap 11 ASPIRIN 81 MG PO CHEW One pill by mouth once a day with food 100 5 acetaminophen (TYLENOL EXTRA STRENGTH) 500 MG Tablet Take 500 mg by mouth every 6 hours as needed for Pain. nitroglycerin (NITROSTAT) 0.4 MG SUBL 1 every 5 min as needed with chest pain up to 3 doses in 15 minutes 25 Tab 11 TRAVATAN Z 0.004 % ophthalmic solution Instill 1 Drop into both eyes every evening. 0 Review of patient's allergies indicates: No Known Allergies Social History Tobacco Use Smoking Status Never Smoker Smokeless Tobacco Never Used History Alcohol Use Yes Comment: occ PHYSICAL EXAM: There were no vitals taken for this visit. No gait abnormality. Motor 5/5 BL lower. No SI tenderness ASSESSMENT: Severe lumbar spinal stenosis RECOMMENDATION: Will reschedule for caudal JACKIE as previously discussed. Paul Berg DO 12/21/2018 11:26 AM documented in this encounter Nursing Notes * Lorri Gotti LPN - 12/21/2018 11:17 AM EDT Patient reports low back pain, last inj was cancelled due to hospitalization for diverticulitis No new imaging documented in this encounter Plan of Treatment Upcoming Encounters Date Type Specialty Care Team Description 12/24/2018 Office Visit Otolaryngology Malina Martinez PA-C [address] [place] [address] [phone] 12/27/2018 Hospital Encounter Surgery Paul Berg DO [address] [place] [address] [phone] 12/27/2018 Surgery Surgery Paul Berg DO [address] [place] [address] [phone] INJECTION SPINE LUMBAR OR SACRAL 03/20/2019 Office Visit Family Medicine Bj Mario, DO [address] [place] [address] [phone] 03/22/2019 Office Visit Cardiology Yvon Harris PA-C [address] [facility] [place] [address] [phone] Health Maintenance Due Date Last Done Comments Influenza Vaccine (FLU shot) (#1) 2018 03/14/2018, 03/23/2017, 04/11/2016, Additional history exists CKD GFR USE SMARTSET 90341 02/13/201908/13, 03/08/2018, 02/14/2018, Additional history exists CKD HGB USE SMARTSET 75535 08/14/201908/13, 02/14/2018, 07/25/2016, Additional history exists CKD PHOS USE SMARTSET 68974 08/14/201907/21, 01/09/2017, 04/11/2016, Additional history exists DXA-SCREENING [...] Spinal stenosis, lumbar region, with neurogenic claudication Prophylactic antibiotic Encounter for long-term (current) use of antibiotics History of bilateral hip replacements Hip joint replacement by other means Status post total bilateral knee replacement documented in this encounter Advance Directives Documents on File Type Date Recorded Patient High Tension Tester Expl anation Advance Directives and Living Will 08/13/2009 12:00 AM LIVING WILL Power of Tow Truck Dispatcher 08/13/2009 12:00 AM DOMONIQUE R OF HEEL SLUGGER DURABLE HEALTH POA AND HEALTH CARE TREATMENT INSTR Power of Tow Truck Dispatcher 08/13/2009 12:00 AM DOMONIQUE R OF HEEL [employer]UGGER DURABLE HEALTH CARE POA Advanced Directive service a mike default Advanced Directive Advanced Directive Advanced Directive Advanced Directive Advanced Directive Advanced Directive Advanced Directive Advanced Directive Advanced Directive Advanced Directive Advanced Directive Advanced Directive 09/01/2016 8:20 AM
--- OUTSIDE RECORDS SUMMARY | 2023-01-22 23:00 | External Medical Summary | Summary of Care ---
Author Name Unknown Organization [place] [address] Care Team Providers Care Teenage Babysitter Name Role Phone Bj Mario DO Primary Care Provider [phone] Reason for Referral * Evaluate & Treat - Unlimited Visits (Within 10 days (routine)) Status Reason Specialty Diagnoses / Procedures Referred By Contact Referred To Contact Pending Review Specialty Services Required Otolaryngology Diagnoses Globus sensation Irritation of both ears Bj Mario DO [address] [place] [address] Reason for Visit * Reason Comments Follow Up Encounter Details Date Type Department Care Team Description 12/19/2018 Office Visit Family Practice [facility] [address] [place] [address] Bj Mario [address] [place] [address] [phone] Globus sensation*; Irritation of both ears Allergies No Known Allergiesdocumented as of this [...] metoprolol succinate XL (TOPROL XL) 25 MG [id number]:Chr onic ischemic heart disease take 1/2 tablet [...] placed in the mid RCA at [facility] Asymptomatic bilateral carotid artery st enosis 06/10/2014 Raynaud phenomenon 06/13/2011 Knee joint replacement status 01/13/2011 Overview: 2013, right Dr Ricardo [facility] 2011: left Dr Priya Ricardo [facility] Dyslipidemia, goal LDL below 70 09/21/19 11 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 neurogenic claudication 02/17/2010 Vitamin D deficiency 10/13/2009 Chronic ischemic heart disease 0 S/P angioplasty with stent 06/30/2009 Overview: 07/01/2009 DUS in the RCA at [facility] Non-toxic multinodular goiter 04/21/2009 Overview: seen on [...] Sign Reading Time Taken Comments Blood Pressure 118/60 12/19/2018 12:30 PM EDT Pulse 70 12/19/2018 12:30 PM EDT Temperature 36.7 C (98 F) 12/19/2018 12:30 PM EDT Respiratory Rate 16 12/19/2018 12:30 PM EDT Oxygen Saturation - - Inhaled Oxygen Concentration - - Weight 84.5 kg (186 lb 3.2 oz) 12/19/2018 12:30 PM EDT Height - - Body Mass Index 32.58 11/13/2018 3:54 PM EDT documented in this encounter Progress Notes * Bj Mario, - 12/19/2018 12:47 PM EDT Subjective: Eugenia Hu is a 83 year old female. Chief Complaint Patient presents with Follow Up HPI: She started the protonix after our last visit. It is a little better. She is not coughing muchbut feels like something is there. Protonix is helping with her burning sensation in her chest. Enrique says she sounds better. She used to pick her ears. Now she does not. She is scheduled with Dr. Berg in December. PMHx, meds, and allergies reviewed Patient Active [...] allergies indicates: No Known Allergies OBJECTIVE: BP 118/60 | Pulse 70 | Temp (Src) 98 (Tympanic) | Resp 16 | Wt 186 lbs 3.2 oz (84.460kg) | BMI 32.58 kg/m | BSA 1.94 m Estimated body mass index is 32.58 kg/m as calculated from the following: Height as of 11/13/18: 1.61 m (5' 3.39"). Weight as of this encounter: 84.5 kg (186 lb 3.2 oz). BP Readings from Last 3 Encounters: 12/19/18 118/60 12/06/18 104/64 11/13/18 116/58 Wt Readings from Last 3 Encounters: 12/19/18 84.5 kg (186 lb 3.2 oz) 12/06/18 83.6 kg (184 lb 3.2 oz) 11/13/18 83.9 kg (185 lb) ROS: Negative except for above PHYSICAL EXAM: General: alert, healthy and no distress Oropharynx: no exudate, no erythema, lips, buccal mucosa, and tongue normal and mucous membranes are moist ASSESSMENT/Plan Globus sensation (Primary) - OTOLARYNGOLOGY REFERRAL OP Irritation of both ears - OTOLARYNGOLOGY REFERRAL OP PT would like to see ENT for further visualization of her throat. The above was discussed and understanding was expressed. Bj Mario DO documented in this encounter Nursing Notes * Oli Tierney LPN - 12/19/2018 12:30 PM EDT Pt presents today for a two week return documented in this encounter Plan of Treatment Upcoming Encounters Date Type Specialty Care Team Description 12/27/2018 Hospital Encounter Surgery Paul Berg DO [address] [place] [address] [phone] 12/27/2018 Surgery Surgery Paul Berg DO [address] [place] [address] [phone] INJECTION SPINE LUMBAR OR SACRAL 03/20/2019 Office Visit Family Medicine Bj Mario DO [address] [facility] [address] [phone] 03/22/2019 Office Visit Cardiology Yvon Harris PA-C [address] [place] [address] [phone] Scheduled Referrals Name Type Priority Associated Diagnoses Order Schedule OTOLARYNGOLOGY REFERRAL OP Referral Within 10 days (routine) Globus sensation Irritation of both ears Ordered: 12/19/2018 Health Maintenance Due Date Last Done Comments Influenza Vaccine (FLU shot) (#1) 2018 03/14/2018, 03/23/2017, 04/11/2016, Additional history exists CKD GFR USE SMARTSET 99235 02/13/201908/13, 03/08/2018, 02/14/2018, Additional history exists CKD HGB USE SMARTSET 99443 08/14/201908/13, 02/14/2018, 07/25/2016, Additional history exists CKD PHOS USE SMARTSET 81647 08/14/201907/21, 01/09/2017, 04/11/2016, Additional history exists DXA-SCREENING [...] as of this encounter Visit Diagnoses Diagnosis Globus sensation- Primary Gastrointestinal malfunction arising from mental factors Irritation of both ears documented in this encounter Advance Directives Documents on File Type Date Recorded Patient Office Messenger Helper Expl anation Advance Directives and Living Will 08/13/2009 12:00 AM LIVING WILL Power of Clerical Investigator 08/13/2009 12:00 AM DOMONIQUE R OF ROUTE SALES PERSON DURABLE HEALTH POA AND HEALTH CARE TREATMENT INSTR Power of Clerical Investigator 08/13/2009 12:00 AM DOMONIQUE R OF ROUTE SALES PERSON DURABLE HEALTH CARE POA Advanced Directive service a mike default Advanced Directive Advanced Directive Advanced Directive Advanced Directive Advanced Directive Advanced Directive Advanced Directive Advanced Directive Advanced Directive Advanced Directive Advanced Directive Advanced Directive 09/01/2016 8:20 AM
--- OUTSIDE RECORDS SUMMARY | 2023-01-22 23:01 | External Medical Summary | Summary of Care ---
Author Name Unknown Organization [place] [address] Care Team Providers Care Senior Quality Technician Name Role Phone Bj Mario DO Primary Care Provider [phone] Reason for Visit * Reason Comments Follow Up Encounter Details Date Type Department Care Team Description 09/14/2018 Office Visit Family Practice [facility] [address] [place] [address] Bj Mario DO [address] [facility] [place] [address] [phone] Gastroesophageal reflux disease without esophagitis*; Thrush; Chronic ischemic heart disease; 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) Allergies No Known Allergiesdocumented as of this encounter (statuses as of 09/14/2018) Medications Medication Sig Dispensed Refills Start Date [...] metoprolol succinate XL (TOPROL XL) 25 MG [id number]:Chr onic ischemic heart disease take 1/2 tablet once daily 31 Tab 5 05/10/2018 Active lisinopril (PRINIVIL) 10 MG TabletIndications:B enign hypertension with CKD (chronic kidney disease) stage III (HCC),Edema take 1 tablet by mouth once daily 30 Tab 5 08/31/2018 Active rOPINIRole (REQUIP) 0.25 MG TabletIndications:R estless legs syndrome take 1 tablet by mouth at bedtime 30 Tab 5 09/10/2018 Active nystatin 183545 UNIT/ML suspensionIndicatio ns:Thrush Take 1 mL by mouth 4 times a day. For thrush. 60 mL 1 09/14/2018 Active pantoprazole (PROTONIX) 40 MG TBECIndications:Gas troesophageal reflux disease without esophagitis Take 1 Tab by mouth daily. 30 Tab 0 09/14/2018 Active nystatin 786331 UNIT/ML suspensionIndicatio ns:Thrush Take 1 mL by mouth 4 times a day for 30 days. For thrush. 60 mL 1 08/21/2018 09/14/2018 Discontinued documented as of this encounter (statuses as of 09/14/2018) Active Problems Problem Noted Date Benign hypertension [...] as of this encounter (statuses as of 09/14/2018) Resolved Problems Problem Noted Date Resolved Date [...] as of this encounter (statuses as of 09/14/2018) Immunizations Name Dates Previously Given Next Due [...] Vital Sign Reading Time Taken Blood Pressure 118/64 09/14/2018 8:46 AM EDT Pulse 64 09/14/2018 8:46 AM EDT Temperature 35.6 C (96 F) 09/14/2018 8:4 6 AM EDT Respiratory Rate 16 09/14/2018 8:46 AM EDT Oxygen Saturation - - Inhaled Oxygen Concentration - - Weight 84 kg (185 lb 3.2 oz) 09/14/2018 8:46 AM EDT Height 162.2 cm (5' 3.86") 09/14/2018 8 :46 AM EDT Body Mass Index 31.93 09/14/2018 8:46 AM EDT documented in this encounter Progress Notes * Bj Mario, - 09/14/2018 9:09 AM EDT Subjective: Eugenia Hu is a 83 year old female. Chief Complaint Patient presents with Follow Up HPI: Diarrhea and pain got. She finished the full course of antibiotics. We started nystatin for thrush last visit and it did make things better but not all gone. Sta the hospital she got a panytorazole for heart burn. She would like to stay on it but try and wean herself off of it. Otherwise doing well. Seeing cardio soon. Pt mentions SOB even just with walking. IT can happen over a block or two. COPDdiscussed considering her second hand exposure. PMHx, meds, and allergies reviewed Patient Active [...] Current Outpatient Medications Medication Sig Dispense Refill rOPINIRole (REQUIP) 0.25 MG Tablet take 1 [...] indicates: No Known Allergies OBJECTIVE: BP 118/64 | Pulse 64 | Temp (Src) 96 (Tympanic) | Resp 16 | Ht 5' 3.858" (1.622m) | Wt 185 lbs 3.2 oz (84.006kg) | BMI 31.93 kg/m | BSA 1.95 m Estimated body mass index is 31.93 kg/m as calculated from the following: Height as of this encounter: 1.622 m (5' 3.86"). Weight as of this encounter: 84 kg (185 lb 3.2 oz). BP Readings from Last 3 Encounters: 09/14/18 118/64 08/21/18 124/68 03/14/18 118/76 Wt Readings from Last 3 Encounters: 09/14/18 84 kg (185 lb 3.2 oz) 08/21/18 85.9 kg (189 lb 6.4 oz) 03/14/18 85.5 kg (188 lb 6.4 oz) ROS: Negative except for above PHYSICAL EXAM: General: alert, healthy and no distress Head: Normocephalic, No masses, lesions, tenderness or abnormalities Oropharynx: no exudate, no erythema, mucous membranes are moist and thrush Heart: regular rate & rhythm, no murmurs and no gallops Lungs: chest symmetric with normal AP diameter, no chest deformities noted, no chest wall tenderness, lungs clear to auscultation ASSESSMENT/Plan K21.9 Gastroesophageal reflux disease without esophagitis (primary encounter diagnosis) Plan: Pantoprazole sodium 40 mg po tbec Sig:Take 1 tab by mouth daily. B37.0 Thrush Plan: Nystatin 543385 unit/ml mt susp Sig:Take 1 ml by mouth 4 times a day. for thrush. I25.9 Chronic ischemic heart disease I12.9, N18.3 Benign hypertension with ckd (chronic kidney disease) stage iii (hcc) Follow up: Return in about 6 months (around 03/16/2019). We discussed a goal of not using the protonix long-term. The above was discussed and understanding was expressed. Bj Mario DO documented in this encounter Nursing Notes * Yanira Hall CMA - 09/14/2018 8:42 AM EDT Pt presents today for a 6 month follow up. Pt has no concerns at this time. Pt has finished her nystatin and the thrush is not completely gone yet. Pt would like to discuss getting her pantoprazole refilled, pt reports this prescription was given to her when she was in the hospital. documented in this encounter Plan of Treatment Upcoming Encounters Date Type Specialty Care Team Description 09/18/2018 Office Visit Cardiology Yvon Harris PA-C [address] [place] [address] 10/09/2018 Procedure Only Endoscopy Alo Jean MD [address] [place] [address] [phone] 03/20/2019 Office Visit Family Medicine Bj Mario, DO [address] [facility] [address] [phone] Health Maintenance Due Date Last Done Comments *DEPRESSION SCREENING, ANNUAL FOR PTS 18 AND OVER 09/08/2018 CKD GFR USE SMARTSET 62688 02/13/201908/13, 03/08/2018, 02/14/2018, Additional history exists CKD HGB USE SMARTSET 84030 08/14/201908/13, 02/14/2018, 07/25/2016, Additional history exists CKD PHOS USE SMARTSET 27195 08/14/201907/21, 01/09/2017, 04/11/2016, Additional history exists DXA-SCREENING [...] reflux disease without esophagitis- Primary Esophageal reflux Thrush Candidiasis of mouth Chronic ischemic heart disease Chronic ischemic heart disease, unspecified 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 I through stage IV, or unspecified documented in this encounter Advance Directives Patient has advance care planning documents on file. For more information, please contact: [place] [phone]
--- OUTSIDE RECORDS SUMMARY | 2023-01-22 23:01 | External Medical Summary | Summary of Care ---
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 Press Operator Name Role Phone Bj Mario DO Primary Care Provider [phone] Reason for Visit * Reason Comments Hospital Follow-Up Encounter Details Date Type Department Care Team Description 08/17/2018 Telephone Family Practice [facility] [address] [place] [address] Bj Mario DO [address] [place] [address] [phone] Hospital Follow-Up Allergies No Known Allergiesdocumented as of this encounter (statuses as of 08/27/2018) Medications Medication Sig Dispensed Refills Start Date End Date Status ASPIRIN 81 MG PO CHEW One pill by mouth once a day with food 100 5 08/06/2008 Active VITAMIN D 1000 UNIT PO CAPSIndications:Vitami n D deficiency 1 capsule daily 30 Cap 11 10/13/2009 Active TRAVATAN Z 0.004 % ophthalmic solution Instill 1 Drop into both eyes every evening. 0 07/29/2014 Active lisinopril (PRINIVIL) 10 MG TabletIndications:Charles gn hypertension with CKD (chronic kidney disease) stage III (HCC),Edema Take 1 Tab by mouth daily. 30 Tab 5 10/05/2017 Active nitroglycerin (NITROSTAT) 0.4 MG SUBLIndications:Chroni c [...] hours as needed for Pain. 0 Active rOPINIRole (REQUIP) 0.25 MG TabletIndications:Rest less legs syndrome take 1 tablet by mouth at bedtime 30 Tab 5 03/05/2018 Active amoxicillin (AMOXIL) 500 MG CapsuleIndications:Pro phylactic antibiotic,History of bilateral hip replacements,Hip joint replacement status,Status post total bilateral knee replacement TAKE 4 CAPSULES BY MOUTH 1 HOUR PRIOR TO PROCEDURE. 4 Cap 6 04/27/2018 Active metoprolol succinate XL (TOPROL XL) 25 MG [id number]:Chroni c ischemic heart disease take 1/2 tablet once daily 31 Tab 5 05/10/2018 Active documented as of this encounter (statuses as of 08/27/2018) Active Problems Problem Noted Date Benign hypertension with CKD (chronic ki dney disease) stage III 09/06/2017 History of deep vein thrombosis (DVT) of lower extremity 09/08/2016 Status post insertion of drug eluting co ronary artery stent 04/07/2015 Overview: 2009, DUS placed in the mid RCA at [facility] Carotid stenosis, non-symptomatic 2014 Raynaud phenomenon 06/13/2011 Knee joint replacement status 01/13/2011 Overview: 2013, right Dr Ricardo [facility] 2011: left Dr Pirya Ricardo [facility] Dyslipidemia, goal LDL below 70 09/21/19 11 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 neurogenic claudication 02/17/2010 Vitamin D deficiency 10/13/2009 Chronic ischemic heart disease 0 S/P angioplasty with stent 06/30/2009 Overview: 07/01/2009 DUS in the RCA at [facility] Non-toxic multinodular goiter 04/21/2009 Overview: seen [...] as of this encounter (statuses as of 08/27/2018) Resolved Problems Problem Noted Date Resolved Date [...] as of this encounter (statuses as of 08/27/2018) Immunizations Name Dates Previously Given Next Due Pneumococcal Conjugate Vacc, 13 Valent (Prevnar) 09/22/2014 Pneumococcal Polysaccharide PPV23 (Pneumovax) 03/12/2002 Seasonal Influenza, Quadriva lent, No Preserve, 6 Mons & Above, IM 03/14/2018,03/23/2017 Seasonal Influenza, Quadriva lent, No Preserve, IM 04/11/2016,04/06/2015 Seasonal Influenza, Trivalen t, with Preserve, 3yr & Above, Split 03/10/2014,04/25/2013,03/20/2012,,02/17/2010,02/04/2009,2007,03/30/2007,02/22/2007, 6,03/12/2003,03/12/2002 TD, Preservative Free 04/21/2012,04/28/2008 Varicella Zoster Vaccine (Adult) 06/11/2008 documented as of this encounter Social History Tobacco Use Types Packs/Day Years Used Date Never Smoker Smokeless Tobacco: Never Used Alcohol Use Drinks/Week oz/Week Comments Yes occ Sex Assigned at Date Recorded Not on file Job Start Date Occupation Industry Not on file Not on file Not on file Travel History Travel Start Travel End documented as of this encounter Miscellaneous Notes * Telephone Encounter - Amy Valladares RN - 08/17/2018 2:02 PM EDT Transitions of Care Note Reason for Referral:Recent Admission Phone visit for follow up: NIRMALA attempt #1 Left detailed message. Amy Valladares RN documented in this encounter Plan of Treatment Upcoming Encounters Date Type Specialty Care Team Description 08/28/2018 Nurse Only Ancillary Nurse Bhanu [address] [place] [address] [phone] 09/14/2018 Office Visit Family Medicine Bj Mario DO [address] [place] [address] [phone] 09/18/2018 Office Visit Cardiology Yvon Harris PA-C [address] [place] [id number] 10/09/2018 Procedure Only Endoscopy Alo Jean MD [address] [place] [id number] Health Maintenance Due Date Last Done Comments DTaP,Tdap,and Td Vaccines (1 - Tdap) 04/22/2012 04/21/2012, 04/28/2008 CKD GFR USE SMARTSET 93483 02/13/201908/13, 03/08/2018, 02/14/2018, Additional history exists CKD HGB USE SMARTSET 83842 08/14/201908/13, 02/14/2018, 07/25/2016, Additional history exists CKD PHOS USE SMARTSET 50157 08/14/201907/21, 01/09/2017, 04/11/2016, Additional history exists DXA-SCREENING EVERY 7 YRS-USE SMARTSET# 3348 TO ORDER 10/30/2020 10/30/2013, 10/30/2013, 08/24/2009, Additional history exists DIABETES SCREEN EVERY 3 YRS-AGE 45 AND ABOVE 08/13/2021 08/13/2018, 03/08/2018, 02/14/2018, Additional history exists PNEUMOCOCCAL ADULT 65 YRS AND OVER Completed [...] For more information, please contact: [place] [phone]
--- OUTSIDE RECORDS SUMMARY | 2023-01-22 23:01 | External Medical Summary | Summary of Care ---
Author Name Unknown Organization [place] [address] Care Team Providers Care Furniture Arranger Name Role Phone Bj Mario DO Primary Care Provider [phone] Encounter Details Date Type Department Care Team Description 08/14/2018 Scan Encounter Unspecified Department <No scans attached> Allergies No Known Allergiesdocumented as of this encounter (statuses as of 08/16/2018) Medications Medication Sig Dispensed Refills Start Date [...] metoprolol succinate XL (TOPROL XL) 25 MG [id number]:Chroni c ischemic heart disease take 1/2 tablet once daily 31 Tab 5 05/10/2018 Active documented as of this encounter (statuses as of 08/16/2018) Active Problems Problem Noted Date Benign hypertension with CKD (chronic ki dney disease) stage III 09/06/2017 History of deep vein thrombosis (DVT) of lower extremity 09/08/2016 Status post insertion of drug eluting co ronary artery stent 04/07/2015 Overview: 2009, DUS placed in the mid RCA at [facility] [place] Carotid stenosis, non-symptomatic 2014 Raynaud phenomenon 06/13/2011 [...] as of this encounter (statuses as of 08/16/2018) Resolved Problems Problem Noted Date Resolved Date [...] as of this encounter (statuses as of 08/16/2018) Immunizations Name Dates Previously Given Next Due [...] Encounters Date Type Specialty Care Team Description 08/21/2018 Office Visit Family Medicine Bj Mario DO [address] [place] [address] [phone] 09/14/2018 Office Visit Family Medicine Bj Mario DO [address] [place] [address] [phone] 09/18/2018 Office Visit Cardiology Yovn Harris PA-C [address] [facility] [place] [address] [phone] Health Maintenance Due Date Last Done Comments DTaP,Tdap,and Td Vaccines (1 - Tdap) 04/22/2012 04/21/2012, 04/28/2008 CKD GFR USE SMARTSET 15117 02/13/201908/13, 03/08/2018, 02/14/2018, Additional history exists CKD HGB USE SMARTSET 17314 08/14/201908/13, 02/14/2018, 07/25/2016, Additional history exists CKD PHOS USE SMARTSET 25019 08/14/201907/21, 01/09/2017, 04/11/2016, Additional history exists DXA-SCREENING [...] For more information, please contact: [place] [phone]
--- OUTSIDE RECORDS SUMMARY | 2023-01-22 23:01 | External Medical Summary | Summary of Care ---
Author Name Unknown Organization [place] [address] Care Team Providers Care Berry Picker Machine Operator Name Role Phone Bj Mario DO Primary Care Provider [phone] Encounter Details Date Type Department Care Team Description 09/13/2018 Orders Only Cardiology, [facility] [address] [place] [address] Yvon Harris PA-C [address] [facility] [place] [address] [phone] Chronic ischemic heart disease* Allergies No Known Allergiesdocumented as of this encounter (statuses as of 09/13/2018) Medications Medication Sig Dispensed Refills Start Date [...] 0 07/29/2014 Active nitroglycerin (NITROSTAT) 0.4 MG SUBLIndications:Chron ic ischemic heart disease 1 every 5 min as needed with chest pain up to 3 doses in 15 minutes 25 Tab 11 10/09/2017 Active rosuvastatin (CRESTOR) 20 MG TabletIndications:Dys lipidemia, goal LDL below 70 take 1 tablet by mouth once daily 31 Tab 11 10/31/2017 Active acetaminophen (TYLENOL EXTRA STRENGTH) 500 MG Tablet Take 500 mg by mouth every 6 hours as needed for Pain. 0 Active amoxicillin (AMOXIL) 500 MG CapsuleIndications:Pr ophylactic antibiotic,History of bilateral hip replacements,Hip joint replacement status,Status post total bilateral knee replacement TAKE 4 CAPSULES BY MOUTH 1 HOUR PRIOR TO PROCEDURE. 4 Cap 6 04/27/2018 Active metoprolol succinate XL (TOPROL XL) 25 MG [id number]:Chron ic ischemic heart disease take 1/2 tablet once daily 31 Tab 5 05/10/2018 Active nystatin 541525 UNIT/ML suspensionIndications :Thrush Take 1 mL by mouth 4 times a day for 30 days. For thrush. 60 mL 1 08/21/2018 09/20/2018 Active lisinopril (PRINIVIL) 10 MG TabletIndications:Shar ign hypertension with CKD (chronic kidney disease) stage III (HCC),Edema take 1 tablet by mouth once daily 30 Tab 5 08/31/2018 Active rOPINIRole (REQUIP) 0.25 MG TabletIndications:Res tless legs syndrome take 1 tablet by mouth at bedtime 30 Tab 5 09/10/2018 Active documented as of this encounter (statuses as of 09/13/2018) Active Problems Problem Noted Date Benign hypertension [...] as of this encounter (statuses as of 09/13/2018) Resolved Problems Problem Noted Date Resolved Date [...] as of this encounter (statuses as of 09/13/2018) Immunizations Name Dates Previously Given Next Due [...] Encounters Date Type Specialty Care Team Description 09/14/2018 Office Visit Family Medicine Bj Mario, DO [address] [place] [address] [phone] 09/18/2018 Office Visit Cardiology Yvon Harris PA-C [address] [place] [address] [phone] 10/09/2018 Procedure Only Endoscopy Alo Jean MD [address] [place] [address] [phone] Scheduled Tests Name Priority Associated Diagnoses Order S chedule EKG Routine Chronic ischemic heart disease Expected: 09/18/2018, Expires: 11/13/2018 Health Maintenance Due Date Last Done Comments *DEPRESSION SCREENING, ANNUAL FOR PTS 18 AND OVER 09/08/2018 CKD GFR USE SMARTSET 49065 02/13/201908/13, 03/08/2018, 02/14/2018, Additional history exists CKD HGB USE SMARTSET 78723 08/14/201908/13, 02/14/2018, 07/25/2016, Additional history exists CKD PHOS USE SMARTSET 90058 08/14/201907/21, 01/09/2017, 04/11/2016, Additional history exists DXA-SCREENING [...] For more information, please contact: [place] [phone]
--- OUTSIDE RECORDS SUMMARY | 2023-01-22 23:01 | External Medical Summary | Summary of Care ---
Author Name Unknown Organization [place] [address] Care Team Providers Care Salesforce Consultant Name Role Phone Bj Mario DO Primary Care Provider [phone] Encounter Details Date Type Department Care Team Description 08/09/2018 Orders Only Cardiology, [facility] [address] [facility] [facility] [place] [address] Yvon Harris PA-C [address] [place] [address] [phone] Chronic ischemic heart disease* Allergies No Known Allergiesdocumented as of this encounter (statuses as of 08/09/2018) Medications Medication Sig Dispensed Refills Start Date [...] metoprolol succinate XL (TOPROL XL) 25 MG [id number]:Chroni c ischemic heart disease take 1/2 tablet once daily 31 Tab 5 05/10/2018 Active documented as of this encounter (statuses as of 08/09/2018) Active Problems Problem Noted Date Benign hypertension with CKD (chronic ki dney disease) stage III 09/06/2017 History of deep vein thrombosis (DVT) of lower extremity 09/08/2016 Status post insertion of drug eluting co ronary artery stent 04/07/2015 Overview: 2009, DUS placed in the mid RCA at [facility] Carotid stenosis, non-symptomatic 2014 Raynaud phenomenon 06/13/2011 Knee joint replacement status 01/13/2011 Overview: 2013, right Dr Ricardo [facility] [...] as of this encounter (statuses as of 08/09/2018) Resolved Problems Problem Noted Date Resolved Date Prophylactic antibiotic 07/09/2015 01/12/20 18 Kidney disease, chronic, stage III (GFR [...] as of this encounter (statuses as of 08/09/2018) Immunizations Name Dates Previously Given Next Due [...] Encounters Date Type Specialty Care Team Description 08/13/2018 Hospital Encounter Surgery RobbimartinaaPul Azam, DO [address] [place] [address] [phone] 08/13/2018 Surgery Surgery Otis Paul Nascimento, DO [address] [place] [address] [phone] INJECTION SPINE LUMBAR OR SACRAL 08/15/2018 Office Visit Cardiology Yvon Harris PA-C [address] [place] [address] [phone] 09/14/2018 Office Visit Family Medicine Bj Mario, DO [address] [facility] [address] [phone] Scheduled Tests Name Priority Associated Diagnoses Order S chedule EKG Routine Chronic ischemic heart disease Expected: 08/15/2018, Expires: 10/09/2018 Health Maintenance Due Date Last Done Comments DTaP,Tdap,and Td Vaccines (1 - Tdap) 04/22/2012 04/21/2012, 04/28/2008 CKD PHOS USE SMARTSET 75640 01/09/201812/21, 04/11/2016, 09/22/2014 CKD GFR USE SMARTSET 00707 09/06/201803/08, 02/14/2018, 10/02/2017, Additional history exists CKD HGB USE SMARTSET 42321 02/14/201902/14, 07/25/2016, 04/11/2016, Additional history exists DXA-SCREENING EVERY 7 YRS-USE SMARTSET# 3348 TO ORDER 10/30/2020 10/30/2013, 10/30/2013, 08/24/2009, Additional history exists DIABETES SCREEN EVERY 3 YRS-AGE 45 AND ABOVE 03/08/2021 03/08/2018, 02/14/2018, 10/02/2017, Additional history exists PNEUMOCOCCAL ADULT 65 YRS [...] For more information, please contact: [place] [phone]
--- OUTSIDE RECORDS SUMMARY | 2023-01-22 23:01 | External Medical Summary | Summary of Care ---
Author Name Unknown Organization [place] [address] Care Team Providers Care Director Talent Acquisition Name Role Phone Bj Mario DO Primary Care Provider [phone] Reason for Visit * Reason Comments Hospital Follow-Up Pt presents today fo r a hospital follow up, was in the hospital for mild diverticulitis was discharged on 08/15. Meds reviewed. Hospital Follow-Up Encounter Details Date Type Department Care Team Description 08/21/2018 Office Visit Family [facility] [address] [place] [address] jB Mario DO [address] [place] [address] [phone] Acute diverticulitis*; Hospital discharge follow-up; Need for zjdwzaxsrl-zplyqni-gyo tussis (Tdap) vaccine; Thrush; Chronic ischemic heart disease; 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); HTN, goal below 140/90 Allergies No Known Allergiesdocumented as of this encounter (statuses as of 08/21/2018) Medications Medication Sig Dispensed Refills Start Date [...] 0 07/29/2014 Active lisinopril (PRINIVIL) 10 MG TabletIndications:Shar ign hypertension with CKD (chronic kidney disease) stage III (HCC),Edema Take 1 Tab by mouth daily. 30 Tab 5 10/05/2017 Active nitroglycerin (NITROSTAT) 0.4 MG SUBLIndications:Chron ic [...] Pain. 0 Active rOPINIRole (REQUIP) 0.25 MG TabletIndications:Res tless legs syndrome take 1 tablet by mouth at bedtime 30 Tab 5 03/05/2018 Active amoxicillin (AMOXIL) 500 MG CapsuleIndications:Pr ophylactic antibiotic,History of bilateral hip replacements,Hip joint replacement status,Status post total bilateral knee replacement TAKE 4 CAPSULES BY MOUTH 1 HOUR PRIOR TO PROCEDURE. 4 Cap 6 04/27/2018 Active metoprolol succinate XL (TOPROL XL) 25 MG [id number]:Chron ic ischemic heart disease take 1/2 tablet once daily 31 Tab 5 05/10/2018 Active nystatin 738151 UNIT/ML suspensionIndications :Thrush Take 1 mL by mouth 4 times a day for 30 days. For thrush. 60 mL 1 08/21/2018 09/20/2018 Active documented as of this encounter (statuses as of 08/21/2018) Active Problems Problem Noted Date Benign hypertension with CKD (chronic ki dney disease) stage III 09/06/2017 History of deep vein thrombosis (DVT) of lower extremity 09/08/2016 Status post insertion of drug eluting co ronary artery stent 04/07/2015 Overview: 2009, DUS placed in the mid RCA at [facility] Carotid stenosis, non-symptomatic 2014 Raynaud phenomenon 06/13/2011 Knee joint replacement status 01/13/2011 Overview: 2014, right Dr Ricardo [facility] 2011: left Dr Priya Ricardo [facility] Dyslipidemia, goal LDL below 70 09/21/19 11 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 neurogenic claudication 02/17/2010 Vitamin D deficiency 10/13/2009 Chronic ischemic heart disease 0 S/P angioplasty with stent 06/30/2009 Overview: 07/01/2009 DUS in the RCA at [facility] Non-toxic multinodular goiter 04/21/2009 Overview: seen on [...] as of this encounter (statuses as of 08/21/2018) Resolved Problems Problem Noted Date Resolved Date [...] as of this encounter (statuses as of 08/21/2018) Immunizations Name Dates Previously Given Next Due [...] Vital Sign Reading Time Taken Blood Pressure 124/68 08/21/2018 10:53 AM EDT Pulse 60 08/21/2018 10:53 AM EDT Temperature 35.7 C (96.2 F) 08/21/2018 1 0:53 AM EDT Respiratory Rate 16 08/21/2018 10:5 3 AM EDT Oxygen Saturation - - Inhaled Oxygen Concentration - - Weight 85.9 kg (189 lb 6.4 oz) 08/22/19 19 10:53 AM EDT Height - - Body Mass Index 32.49 08/21/2018 10:53 AM EDT documented in this encounter Progress Notes * Bj Mario DO - 08/21/2018 11:12 AM EDT Subjective: Eugenia Hu is a 83 year old female. Chief Complaint Patient presents with Hospital Follow-Up Pt presents today for a hospital follow up, was in the hospital for mild diverticulitis was discharged on 08/15. Meds reviewed. Hospital Follow-Up HPI: Pt to the ER on 08/13 after having 4 days of diarrhea. She developed L sided abdominal pain theday before admission. She was also having trouble eating and drinking. CT scan showed a mild diverticulitis of her transverse, descending and sigmoid colon. She was started on cipro and flagyl. She was negative for C Diff. She was recommended to complere 10-14 days of abx and follow-up with GI for a colonoscopy in 6-8 weeks. She was also recommended to take bentyl and needed and protonix. Her creatinine improved to baseline after IVF. She has her colo already scheduled for September. She feels no pain now and no diarrhea but not completely formed. She is having around 2 BMs per day. She is still taking abx for two more two. HEr urine was darker in the hospital. IT is still discolored. She is back to eating and drinking normal stuff. No F or C. No more blood in her stools. TDaP discussed. Pt feels like something is wrong with her throat She feels like pills are not going down. Feels like she needs to relax her throat to get them to go down. Started before the hospital. She says it feels like the R side is a little tight. No extra mucous. No trouble with liquids or solids otherwise. PMHx, meds, and allergies reviewed PHM: Patient Active Problem List Diagnosis Code Advance [...] joint replacement status Z96.659 Raynaud phenomenon I73.00 Carotid stenosis, non-symptomatic I65.29 Status post insertion of drug eluting coronary artery stent Z95.5 History of deep vein thrombosis (DVT) of lower extremity Z86.718 Benign hypertension with CKD (chronic kidney disease) stage III ([facility]) I12.9, N18.3 Current Outpatient Medications Medication Sig Dispense Refill metoprolol succinate XL (TOPROL XL) 25 MG TB24 take 1/2 tablet once daily 31 Tab 5 amoxicillin (AMOXIL) 500 MG Capsule TAKE 4 CAPSULES BY MOUTH 1 HOUR PRIOR TO PROCEDURE. 4 Cap 6 rOPINIRole (REQUIP) 0.25 MG Tablet take 1 tablet by mouth at bedtime 30 Tab 5 acetaminophen (TYLENOL EXTRA STRENGTH) 500 MG Tablet Take 500 mg by mouth every 6 hours as needed for Pain. rosuvastatin (CRESTOR) 20 MG Tablet take 1 tablet by mouth once daily 31 Tab 11 nitroglycerin (NITROSTAT) 0.4 MG SUBL 1 every 5 min as needed with chest pain up to 3 doses in 15 minutes 25 Tab 11 lisinopril (PRINIVIL) 10 MG Tablet Take 1 Tab by mouth daily. 30 Tab 5 TRAVATAN Z 0.004 % ophthalmic solution Instill 1 Drop into both eyes every evening. 0 VITAMIN D 1000 UNIT PO CAPS 1 capsule daily 30 Cap 11 ASPIRIN 81 MG PO CHEW One pill by mouth once a day with food 100 5 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 2000, left 1992 HTN, goal below 140/90 Knee joint replacement status 01/13/[address] Priya Ricardo [facility] Knee joint replacement status 12/15/2013 right [facility] Macular degeneration Ugo Simon MD Menopause 1974 Need for prophylactic hormone replacement therapy (postmenopausal) 1974 Non-toxic multinodular goiter 04/2009 seen on US, repeat -10/2009 Other screening mammogram 10/24/03 Birad Code 2 Other specified glaucoma both eyes, Paul Simon MD, drops used, timolol S/P angioplasty with stent 06/30/09 [facility] Status post insertion of drug eluting coronary artery stent 04/07/20152009, DUS placed in the mid RCA at [facility] Vitamin D deficiency 10/13/2009 Past Surgical History: Procedure Laterality Date ARTHROPLASTY KNEE TOTAL Left 01/13/2011 Left, Dr Priya Ricardo [facility] ARTHROPLASTY KNEE TOTAL Right 12/16/13 Right, Dr Priya Ricardo [facility] CARDIAC CATH SCANNED RESULT 06/30/2009 DUS placed in right coronary, [facility] CARPAL TUNNEL SURGERY Bilateral 2014 bilateral COLONOSCOPY 03/22/2006 normal repeat in 2016 COLONOSCOPY, DIAGNOSTIC (RECTUM) 09/01/2016 diverticulosis/COLONOSCOPY FLEXIBLE PROXIMAL DIAGNOSTIC performed by Kaylie Ford MD at ENDOSCOPY [facility] COLONOSCOPY, GI REFERRAL OP 03/22/2005 diverticulosis, [...] performed by Paul Berg, DO at OR [facility] INJECT DX/THER SUBSTANCE INTERLAMINAR LUMBAR/SACRAL W [...] one ovary left in, Dr Chakraborty in [facility] REMOVE CATARACT, INSERT LENS PROSTH Right 01/05/[address] Messi Simon REMOVE CATARACT, INSERT LENS PROSTH Left 01/28/[address] Messi Simon STENT, COATED/COVERED, WITH DELIVERY SYSTEM 06/30/2009 [employer] Drug Eluding Stent [facility] TOTAL HIP REPLACEMENT & PROSTHESIS 1992 left, Dr Ricardo TOTAL HIP REPLACEMENT & PROSTHESIS 10/2000 right , Dr Ricardo at [facility] Review of patient's allergies indicates: No Known Allergies Family History Problem Relation Age of Onset Cancer Mother cancer of bone Lung Disorder Father old age with heart failure Heart Disorder Brother CO at age 62 Heart Disorder Brother angina Family Status Relation Status Mo at age 79 cancer of bone Fa at age 82 old age Bro MVA Bro at age 62 heart attack Bro Alive TKR times two, angina, pancreas nodule Bro Alive Bro Alive Son Alive Ted Alive CHRISTINE at age 42 Ted Alive Bro (Not Specified) Bro (Not Specified) Social History Socioeconomic History Marital status: Spouse [...] Social History Narrative born [place] in [facility] since 1953 ; 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 Review of Systems: Negative except for above Objective: BP 124/68 | Pulse 60 | Temp (Src) 96.2 (Tympanic) | Resp 16 | Wt 189 lbs 6.4 oz (85.911kg) | BMI 32.49 kg/m | BSA 1.97 m Physical Exam: General: alert, healthy and no distress Head: Normocephalic, No masses, lesions, tenderness or abnormalities Nose: no mucosal erythema, no mucosal edema, no purulent discharge Oropharynx: no exudate, no erythema, lips, buccal mucosa, and tongue normal and mucous membranes are moist Neck: supple, no adenopathy, thyroid normal size, non-tender, without nodularity Heart: regular rate & rhythm, no murmurs and no gallops Lungs: chest symmetric with normal AP diameter, no chest deformities noted, no chest wall tenderness, lungs clear to auscultation Abdomen: abdomen soft, non-tender, normal bowel sounds and no masses or organomegaly ASSESSMENT: K57.92 Acute diverticulitis (primary encounter diagnosis) Plan: Disch med recon cur med lis Z09 Hospital discharge follow-up Plan: Disch med recon cur med lis Z23 Need for qfyhvkhhuu-yjardhg-viozkxird (tdap) vaccine Plan: Tdap (age 10 and older)(boostrix) B37.0 Thrush Plan: Nystatin 634821 unit/ml mt susp Sig:Take 1 ml by mouth 4 times a day for 30 days. for thrush. I25.9 Chronic ischemic heart disease I12.9, N18.3 Benign hypertension with ckd (chronic kidney disease) stage iii (hcc) I10 Htn, goal below 140/90 She has potential for thrush considering recent abx. Treat with nystatin and if no better by upcoming visit will ask GI to add an upper endoscopy to her colonoscopy. Bj Mario DO documented in this encounter Nursing Notes * Oli Tierney LPN - 08/21/2018 10:53 AM EDT Chief Complaint Patient presents with Hospital Follow-Up Pt presents today for a hospital follow up, was in the hospital for mild diverticulitis was discharged on 08/15. Meds reviewed. documented in this encounter Plan of Treatment Upcoming Encounters Date Type Specialty Care Team Description 08/28/2018 Nurse Only Ancillary Nurse Bhanu [address] [facility] [place] [address] [phone] 09/14/2018 Office Visit Family Medicine Bj Mario DO [address] [place] [address] [phone] 09/18/2018 Office Visit Cardiology Yvon Harris PA-C [address] [place] [address] 10/09/2018 Procedure Only Endoscopy Alo Jean MD [address] [place] [id number] Health Maintenance Due Date Last Done Comments DTaP,Tdap,and Td Vaccines (1 - Tdap) 04/22/2012 04/21/2012, 04/28/2008 CKD GFR USE SMARTSET 35433 02/13/201908/13, 03/08/2018, 02/14/2018, Additional history exists CKD HGB USE SMARTSET 56612 08/14/201908/13, 02/14/2018, 07/25/2016, Additional history exists CKD PHOS USE SMARTSET 03659 08/14/201907/21, 01/09/2017, 04/11/2016, Additional history exists DXA-SCREENING [...] of this encounter Visit Diagnoses Diagnosis Acute diverticulitis- Primary Diverticulitis of colon (without mention of hemorrhage) Hospital discharge follow-up Other follow-up examination Need for jkmggyxbdf-enyzupl-bphouumpe (Tdap) vaccine Need for prophylactic vaccination with combined cxqhpfbxzj-mmpqytt-dapustjrd (DTP) vaccine Thrush Candidiasis of mouth Chronic ischemic heart disease Chronic ischemic heart disease, unspecified 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 For more information, please contact: [place] [phone]"
--- OUTSIDE RECORDS SUMMARY | 2023-01-22 23:01 | External Medical Summary | Summary of Care ---
Author Name Unknown Organization [place] [address] Care Team Providers Care Extermination Supervisor Name Role Phone Bj Mario DO Primary Care Provider [phone] Encounter Details Date Type Department Care Team Description 08/14/2018 Orders Only Family Practice [facility] [address] [place] [address] Bj Mario DO [address] [place] [address] [phone] Allergies No Known Allergiesdocumented as of this encounter (statuses as of 08/14/2018) Medications Medication Sig Dispensed Refills Start Date [...] metoprolol succinate XL (TOPROL XL) 25 MG [id number]:Chroni c ischemic heart disease take 1/2 tablet once daily 31 Tab 5 05/10/2018 Active documented as of this encounter (statuses as of 08/14/2018) Active Problems Problem Noted Date Benign hypertension with CKD (chronic ki dney disease) stage III 09/06/2017 History of deep vein thrombosis (DVT) of lower extremity 09/08/2016 Status post insertion of drug eluting co ronary artery stent 04/07/2015 Overview: 2009, DUS placed in the mid RCA at [facility] Carotid stenosis, non-symptomatic 2014 Raynaud phenomenon 06/13/2011 Knee joint replacement status 01/13/2011 Overview: 2013, right Dr Ricardo [facility] 2011: left [...] as of this encounter (statuses as of 08/14/2018) Resolved Problems Problem Noted Date Resolved Date [...] as of this encounter (statuses as of 08/14/2018) Immunizations Name Dates Previously Given Next Due [...] Description 08/21/2018 Office Visit Family Medicine Bj Mario, DO [address] [place] [address] [phone] 09/14/2018 Office Visit Family Medicine Bj Mario, DO [address] [facility] [place] [address] [phone] 09/18/2018 Office Visit Cardiology Yvon Harris PA-C [address] [place] [address] [phone] Health Maintenance Due Date Last Done Comments DTaP,Tdap,and Td Vaccines (1 - Tdap) 04/22/2012 04/21/2012, 04/28/2008 CKD PHOS USE SMARTSET 02217 01/09/201812/21, 04/11/2016, 09/22/2014 CKD GFR USE SMARTSET 53854 09/06/201803/08, 02/14/2018, 10/02/2017, Additional history exists CKD HGB USE SMARTSET 07053 02/14/201902/14, 07/25/2016, 04/11/2016, Additional history exists DXA-SCREENING [...] Procedure Name Priority Date/Time Associated Diagnosis Comments CHEMISTRY-OUTSIDE Routine 08/13/2018 documented in this encounter Results * CHEMISTRY-OUTSIDE (08/13/2018) CREATININE-OUTSIDE LAB 1.53(A) 0.6 - 1.2 MG/DL OU TSIDE LAB (SEE SCANNED REPORT) GFR ESTIMATED-OUTSIDE LAB 31.1 ML/MIN/1.73M2 O UTSIDE LAB (SEE SCANNED REPORT) POTASSIUM-OUTSIDE LAB 3.9 3.5 - 5.1 MMOL/L OU TSIDE LAB (SEE SCANNED REPORT) GLUCOSE-OUTSIDE LAB 113(A) 70 - 99 MG/DL OUTSIDE LAB (SEE SCANNED REPORT) HOURS FASTING OUTSIDE LAB (S EE SCANNED REPORT) TRIGLYCERIDES-OUTSIDE LAB OU TSIDE LAB (SEE SCANNED REPORT) CHOLESTEROL-OUTSIDE LAB OUTS [facility] (SEE SCANNED REPORT) HDL-OUTSIDE LAB OUTSIDE LAB (SEE SCANNED REPORT) CHOL/HDL RATIO-OUTSIDE LAB O UTSIDE LAB (SEE SCANNED REPORT) LDL (CALCULATED)-OUTSIDE LAB OUTSIDE LAB (SEE SCANNED REPORT) LDL (DIRECT MEASURE)-OUTSIDE LAB OUTSIDE LAB (SEE SCANNED REPORT) HEMOGLOBIN, R4Z-CCNOTOF LAB OUTSIDE LAB (SEE SCANNED REPORT) PHOSPHORUS-OUTSIDE LAB 3.6 2.5 - 4.9 MG/DL OU TSIDE LAB (SEE SCANNED REPORT) PTH-OUTSIDE LAB OUTSIDE LAB (SEE SCANNED REPORT) MICROALBUMIN RATIO-OUTSIDE LAB OUTSIDE LAB (SEE SCANNED REPORT) PROTEIN, UA-OUTSIDE LAB OUTS [facility] (SEE SCANNED REPORT) HEMOGLOBIN-OUTSIDE LAB 13.4 12.0 - 16.0 G/DL O UTSIDE LAB (SEE SCANNED REPORT) CHEMISTRY COMMENT-OUTSIDE LAB Comment:SEE SCAN: ER LABS - CMP, PHOSPHORUS, MAGNESIUN, DIRECT BILI, TROPONIN, LIPASE, PT INR, CBCD OUTSIDE LAB (SEE SCANNED REPORT) Narrative Performed At Performing Organization Address City/State/Zipcod e Phone Number OUTSIDE LAB (SEE SCANNED REPORT) documented in this encounter Advance Directives Patient has advance care planning documents on file. For more information, please contact: [place] [phone]
--- OUTSIDE RECORDS SUMMARY | 2023-01-22 23:01 | External Medical Summary | Summary of Care ---
Author Name Unknown Organization [place] [address] Care Team Providers Care Coil Cutter Name Role Phone Bj Mario DO Primary Care Provider [phone] Encounter Details Date Type Department Care Team Description 08/13/2018 Scan Encounter Unspecified Department <No scans attached> Allergies No Known Allergiesdocumented as of this encounter (statuses as of 08/15/2018) Medications Medication Sig Dispensed Refills Start Date [...] metoprolol succinate XL (TOPROL XL) 25 MG [id number]:Chroni c ischemic heart disease take 1/2 tablet once daily 31 Tab 5 05/10/2018 Active documented as of this encounter (statuses as of 08/15/2018) Active Problems Problem Noted Date Benign hypertension with CKD (chronic ki dney disease) stage III 09/06/2017 History of deep vein thrombosis (DVT) of lower extremity 09/08/2016 Status post insertion of drug eluting co ronary artery stent 04/07/2015 Overview: 2009, DUS placed in the mid RCA at [facility] Carotid stenosis, non-symptomatic 2014 Raynaud phenomenon [...] as of this encounter (statuses as of 08/15/2018) Resolved Problems Problem Noted Date Resolved Date [...] as of this encounter (statuses as of 08/15/2018) Immunizations Name Dates Previously Given Next Due [...] Bj Mario DO [address] [place] [address] [phone] 09/14/2018 Office Visit Family Medicine Bj Mario DO [address] [place] [address] [phone] 09/18/2018 Office Visit Cardiology Yvon Harris PA-C [address] [facility] [place] [address] [phone] Health Maintenance Due Date Last Done Comments DTaP,Tdap,and Td Vaccines (1 - Tdap) 04/22/2012 04/21/2012, 04/28/2008 CKD GFR USE SMARTSET 21848 02/13/201908/13, 03/08/2018, 02/14/2018, Additional history exists CKD HGB USE SMARTSET 16853 08/14/201908/13, 02/14/2018, 07/25/2016, Additional history exists CKD PHOS USE SMARTSET 05475 08/14/201907/21, 01/09/2017, 04/11/2016, Additional history exists DXA-SCREENING [...] For more information, please contact: [place] [phone]
--- OUTSIDE RECORDS SUMMARY | 2023-01-22 23:01 | External Medical Summary | Summary of Care ---
Author Name Unknown Organization [place] [address] Care Team Providers Care Wound/Ostomy Clinical Nurse Specialist Name Role Phone Bj Mario DO Primary Care Provider [phone] Reason for Visit * Reason Comments eRx-Medication Refill Encounter Details Date Type Department Care Team Description 08/31/2018 Refill Cardiology, [facility] [address] [place] [address] Chaim Milligan PA-C [address] [place] [address] [phone] 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); Edema Allergies No Known Allergiesdocumented as of this encounter (statuses as of 08/31/2018) Medications Medication Sig Dispensed Refills Start Date [...] Pain. 0 Active rOPINIRole (REQUIP) 0.25 MG TabletIndications:R estless legs syndrome take 1 tablet by mouth at bedtime 30 Tab 5 03/05/2018 Active amoxicillin (AMOXIL) 500 MG CapsuleIndications: Prophylactic antibiotic,History of bilateral hip replacements,Hip joint replacement status,Status post total bilateral knee replacement TAKE 4 CAPSULES BY MOUTH 1 HOUR PRIOR TO PROCEDURE. 4 Cap 6 04/27/2018 Active metoprolol succinate XL (TOPROL XL) 25 MG [id number]:Chr onic ischemic heart disease take 1/2 tablet once daily 31 Tab 5 05/10/2018 Active nystatin 830879 UNIT/ML suspensionIndicatio ns:Thrush Take 1 mL by mouth 4 times a day for 30 days. For thrush. 60 mL 1 08/21/2018 09/20/2018 Active lisinopril (PRINIVIL) 10 MG TabletIndications:B enign hypertension with CKD (chronic kidney disease) stage III (HCC),Edema take 1 tablet by mouth once daily 30 Tab 5 08/31/2018 Active lisinopril (PRINIVIL) 10 MG TabletIndications:B enign hypertension with CKD (chronic kidney disease) stage III (HCC),Edema Take 1 Tab by mouth daily. 30 Tab 5 10/05/2017 08/31/2018 Discontinued documented as of this encounter (statuses as of 08/31/2018) Active Problems Problem Noted Date Benign hypertension with CKD (chronic ki dney disease) stage III 09/06/2017 History of deep vein thrombosis (DVT) of lower extremity 09/08/2016 Status post insertion of drug eluting co ronary artery stent 04/07/2015 Overview: 2009, DUS placed in the mid RCA at [facility] Carotid stenosis, non-symptomatic 2014 Raynaud phenomenon [...] as of this encounter (statuses as of 08/31/2018) Resolved Problems Problem Noted Date Resolved Date [...] as of this encounter (statuses as of 08/31/2018) Immunizations Name Dates Previously Given Next Due [...] Miscellaneous Notes * Telephone Encounter - Chaim Milligan PA-C - 08/31/2018 11:14 AM EDT Signed Prescriptions: Disp Refills lisinopril (PRINIVIL) 10 MG Tablet 30 Tab 5 Sig: take 1 tablet by mouth once daily Authorizing Provider: CHAIM MILLIGAN * Telephone Encounter - Loretta Landa RN - 08/31/2018 9:28 AM EDT Pending Prescriptions: Disp Refills lisinopril (PRINIVIL) 10 MG Tablet [Pharm*30 Tab 5 Sig: take 1 tablet by mouth once daily * Telephone Encounter - Laquita Masters LPN - 08/31/2018 9:23 AM EDT Pending Prescriptions: Disp Refills lisinopril (PRINIVIL) 10 MG Tablet [Pharm*30 Tab 5 Sig: take 1 tablet by mouth once daily * Telephone Encounter - Laquita Masters LPN - 08/31/2018 9:23 AM EDT Pending Prescriptions: Disp Refills lisinopril (PRINIVIL) 10 MG Tablet [Pharm*30 Tab 5 Sig: take 1 tablet by mouth once daily Last Office Visit: 02/14/2018 Next Office Visit: 09/18/2018 Scheduled Provider(s): Chaim Milligan PA-C Last date the medication was ordered: 10/05/17 Patient Active Problem List Diagnosis Code Advance [...] (chronic kidney disease) stage III ([facility]) I12.9, N18.3 Labs: CREATININE-OUTSIDE LAB(MG/DL) Apollo Dt/Tm [...] AIC Results: No HEMOGLOBIN, A1C components found documented in this encounter Plan of Treatment Upcoming Encounters Date Type Specialty Care Team Description 09/14/2018 Office Visit [facility] [address] [phone] 09/18/2018 Office Visit Cardiology Chaim Milligan PA-C [address] [facility] [place] [address] 10/09/2018 Procedure Only Endoscopy Alo Jean MD [address] [place] [address] [phone] Health Maintenance Due Date Last Done Comments CKD GFR USE SMARTSET 86611 02/13/201908/13, 03/08/2018, 02/14/2018, Additional history exists CKD HGB USE SMARTSET 58964 08/14/201908/13, 02/14/2018, 07/25/2016, Additional history exists CKD PHOS USE SMARTSET 15060 08/14/201907/21, 01/09/2017, 04/11/2016, Additional history exists DXA-SCREENING [...] Edema documented in this encounter Advance Directives Patient has advance care planning documents on file. For more information, please contact: [place] [phone]
--- OUTSIDE RECORDS SUMMARY | 2023-01-22 23:01 | External Medical Summary | Summary of Care ---
Author Name Unknown Organization [place] [address] Care Team Providers Care Visual C Developer Name Role Phone Bj Mario DO Primary Care Provider [phone] Reason for Visit * Reason Comments Appointment Encounter Details Date Type Department Care Team Description 08/14/2018 Telephone Gastroenterology, [facility] [address] [facility] [place] [address] Vivi Wiseman CRNP [address] [facility] [place] [address] Appointment Allergies No Known Allergiesdocumented as of [...] metoprolol succinate XL (TOPROL XL) 25 MG [id number]:Chroni c ischemic heart disease take 1/2 tablet [...] placed in the mid RCA at [facility] Carotid stenosis, non-symptomatic 2014 Raynaud phenomenon 06/13/2011 Knee joint replacement status 01/13/2011 Overview: 2013, right Dr Ricardo [facility] 2011: left Dr Priya Ricardo [facility] Dyslipidemia, goal LDL below 70 09/21/19 11 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 neurogenic claudication 02/17/2010 Vitamin D deficiency 10/13/2009 Chronic ischemic heart disease 0 S/P angioplasty with stent 06/30/2009 Overview: 07/01/2009 DUS in the RCA at [facility] Non-toxic multinodular goiter 04/21/2009 Overview: seen on [...] encounter Miscellaneous Notes * Telephone Encounter - Beatriz Rider OSA - 08/16/2018 10:00 AM EDT Lm at home number to call us back. Patient will need to be done at [facility]. * Telephone Encounter - Vivi Wiseman CRNP - 08/14/2018 4:55 PM EDT Pt seen at [facility] for diverticulitis. Per Dr. Jean, she needs colonoscopy w water emersion in 8week's time. Please schedule with Dr Jean. BHASKAR Estrada documented in this encounter Plan of Treatment Upcoming Encounters Date Type Specialty Care Team Description 08/21/2018 Office Visit Family Medicine Bj Mario, DO [address] [facility] [place] [address] [phone] 09/14/2018 Office Visit Family Medicine Bj Mario, DO [address] [facility] [place] [address] [phone] 09/18/2018 Office Visit Cardiology Yvon Harris PA-C 132 [facility] [place] [address] [phone] Health Maintenance Due Date Last Done Comments DTaP,Tdap,and Td Vaccines (1 - Tdap) 04/22/2012 04/21/2012, 04/28/2008 CKD GFR USE SMARTSET 33531 02/13/201908/13, 03/08/2018, 02/14/2018, Additional history exists CKD HGB USE SMARTSET 65931 08/14/201908/13, 02/14/2018, 07/25/2016, Additional history exists CKD PHOS USE SMARTSET 90777 08/14/201907/21, 01/09/2017, 04/11/2016, Additional history exists DXA-SCREENING [...] as of this encounter Visit Diagnoses Diagnosis Diverticulitis of colon- Primary Diverticulitis of colon (without mention of hemorrhage) documented in this encounter Advance Directives Patient has advance care planning documents on file. For more information, please contact: [place] [phone]
--- OUTSIDE RECORDS SUMMARY | 2023-01-22 23:01 | External Medical Summary | Summary of Care ---
Author Name Unknown Organization [place] [address] Care Team Providers Care Net Architect Name Role Phone Bj Mario DO Primary Care Provider [phone] Reason for Visit * Reason Comments Immunizations Encounter Details Date Type Department Care Team Description 08/28/2018 Nurse Only Ancillary [facility] [place] [address] [place] [address] Pauline, Nurse Fam Prac [facility] [address] [place] [address] [phone] Immunizations Allergies No Known Allergiesdocumented as of this encounter (statuses as of 08/28/2018) Medications Medication Sig Dispensed Refills Start Date [...] metoprolol succinate XL (TOPROL XL) 25 MG [id number]:Chron ic ischemic heart disease take 1/2 tablet once daily 31 Tab 5 05/10/2018 Active nystatin 821276 UNIT/ML suspensionIndications :Thrush Take 1 mL by mouth 4 times a day for 30 days. For thrush. 60 mL 1 08/21/2018 09/20/2018 Active documented as of this encounter (statuses as of 08/28/2018) Active Problems Problem Noted Date Benign hypertension with CKD (chronic ki dney disease) stage III 09/06/2017 History of deep vein thrombosis (DVT) of lower extremity 09/08/2016 Status post insertion of drug eluting co ronary artery stent 04/07/2015 Overview: 2009, DUS placed in the mid RCA at [facility] Carotid stenosis, non-symptomatic 2014 Raynaud phenomenon 06/13/2011 [...] as of this encounter (statuses as of 08/28/2018) Resolved Problems Problem Noted Date Resolved Date [...] as of this encounter (statuses as of 08/28/2018) Immunizations Name Dates Previously Given Next Due [...] Travel End documented as of this encounter Patient Instructions * Patient Instructions* Keerthi Barry RN - 08/28/2018 10:34 AM EDT ~~PATIENT INSTRUCTIONS FOR TDAP VACCINE~~ Possible side effects of TDAP vaccine, (tetanus shot), are usually mild and can include: 1. Soreness or redness at injection site 2. Low grade fever 3. Body aches You may use a fever / pain reducing medication as needed for these symptoms. LET YOUR DOCTOR KNOW IMMEDIATELY IF YOU HAVE DIFFICULTY BREATHING OR SWALLOWING, EXPERIENCE ITCHINGOF FEET OR HANDS, HAVE SWELLING OF EYES, FACE OR INSIDE OF NOSE. documented in this encounter Progress Notes * Keerthi Barry RN - 08/28/2018 10:34 AM EDT Immunization Administration Documentation Time Out Procedure Performed: Yes Patient Identified (Ask Name/Date of ): Yes Does the patient have a fever greater than 101 degrees today? No Patient allergic to latex? No VFC Stock: No Immunization(s) verified: Yes, Immunization Name: Tdap (Boostrix), VIS Sheet(s) given: Yes Verified Side and Site: Yes Verified Shot(s) with Parent(s)/Patient: Yes documented in this encounter Plan of Treatment Upcoming Encounters Date Type Specialty Care Team Description 09/14/2018 Office Visit Family Medicine Bj Mario, DO [address] [facility] [place] [address] [phone] 09/18/2018 Office Visit Cardiology Yvon Harris PA-C [address] [place] [address] [phone] 10/09/2018 Procedure Only Endoscopy Alo Jean MD [address] [place] [address] [phone] Health Maintenance Due Date Last Done Comments DTaP,Tdap,and Td Vaccines (1 - Tdap) 04/22/2012 04/21/2012, 04/28/2008 CKD GFR USE SMARTSET 87208 02/13/201908/13, 03/08/2018, 02/14/2018, Additional history exists CKD HGB USE SMARTSET 59999 08/14/201908/13, 02/14/2018, 07/25/2016, Additional history exists CKD PHOS USE SMARTSET 57809 08/14/201907/21, 01/09/2017, 04/11/2016, Additional history exists DXA-SCREENING [...] as of this encounter Visit Diagnoses Diagnosis Need for chuvgbbihf-sfkjzls-aesahjaiy (Tdap) vaccine- Primary Need for prophylactic vaccination with combined ofkvuevofx-lpzkobw-hkmnvooag (DTP) vaccine documented in this encounter Advance Directives Patient has advance care planning documents on file. For more information, please contact: [place] [phone]
--- OUTSIDE RECORDS SUMMARY | 2023-01-22 23:01 | External Medical Summary | Summary of Care ---
Author Name Unknown Organization [place] [address] Care Team Providers Care Warehouse Packaging Supervisor Name Role Phone Bj Mario DO Primary Care Provider [phone] Reason for Visit * Reason Comments Immunizations Encounter Details Date Type Department Care Team Description 08/28/2018 Nurse Only Ancillary [facility] [place] [address] [place] [address] Pauline, Nurse Fam Prac [facility] [address] [place] [address] [phone] Immunizations Allergies No Known Allergiesdocumented as of [...] metoprolol succinate XL (TOPROL XL) 25 MG [id number]:Chron ic ischemic heart disease take 1/2 tablet once daily 31 Tab 5 05/10/2018 Active nystatin 499982 UNIT/ML suspensionIndications :Thrush Take 1 mL by [...] placed in the mid RCA at [facility] Carotid stenosis, non-symptomatic 2014 Raynaud phenomenon 06/13/2011 Knee joint replacement status 01/13/2011 Overview: 2014, right Dr Ricardo [facility] 2011: left Dr Priya Ricrado [facility] Dyslipidemia, goal LDL below 70 09/21/19 11 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 neurogenic claudication 02/17/2010 Vitamin D deficiency 10/13/2009 Chronic ischemic heart disease 0 S/P angioplasty with stent 06/30/2009 Overview: 07/01/2009 DUS in the RCA at [facility] Non-toxic multinodular goiter 04/21/2009 Overview: seen [...] Visit Family Medicine Bj Mario, DO [address] [facility] [place] [address] [phone] 09/18/2018 Office Visit Cardiology Yvon Harris PA-C [address] [place] [address] [phone] 10/09/2018 Procedure Only Endoscopy Alo Jean MD [address] [place] [address] [phone] Health Maintenance Due Date Last Done Comments DTaP,Tdap,and Td Vaccines (1 - Tdap) 04/22/2012 04/21/2012, 04/28/2008 CKD GFR USE SMARTSET 65162 02/13/201908/13, 03/08/2018, 02/14/2018, Additional history exists CKD HGB USE SMARTSET 27232 08/14/201908/13, 02/14/2018, 07/25/2016, Additional history exists CKD PHOS USE SMARTSET 53159 08/14/201907/21, 01/09/2017, 04/11/2016, Additional history exists DXA-SCREENING [...] this encounter Visit Diagnoses Diagnosis Need for lxmanltfpm-ipjyyqn-pdjfmrivx (Tdap) vaccine- Primary Need for prophylactic vaccination with combined bsoaldjatn-pzfjwkb-uvcemcfdw (DTP) vaccine documented in this encounter Advance Directives Patient has advance care planning documents on file. For more information, please contact: [place] [phone]
--- OUTSIDE RECORDS SUMMARY | 2023-01-22 23:01 | External Medical Summary | Summary of Care ---
Author Name Unknown Organization [place] [address] Care Team Providers Care Central Service Tech Name Role Phone Bj Mario DO Primary Care Provider [phone] Encounter Details Date Type Department Care Team [...] metoprolol succinate XL (TOPROL XL) 25 MG [id number]:Chroni c ischemic heart disease take 1/2 tablet [...] RCA at [facility] Carotid stenosis, non-symptomatic 2014 Raynaud phenomenon [...] Bj Mario DO [address] [place] [address] [phone] 09/14/2018 Office Visit Family Medicine Bj Mario DO [address] [place] [address] [address] [phone] 09/18/2018 Office Visit Cardiology Yvon Harris PA-C [address] [facility] [place] [address] [phone] Health Maintenance Due Date Last Done Comments DTaP,Tdap,and Td Vaccines (1 - Tdap) 04/22/2012 04/21/2012, 04/28/2008 CKD GFR USE SMARTSET 48301 02/13/201908/13, 03/08/2018, 02/14/2018, Additional history exists CKD HGB USE SMARTSET 34839 08/14/201908/13, 02/14/2018, 07/25/2016, Additional history exists CKD PHOS USE SMARTSET 22521 08/14/201907/21, 01/09/2017, 04/11/2016, Additional history exists DXA-SCREENING [...] For more information, please contact: [place] [phone]
--- OUTSIDE RECORDS SUMMARY | 2023-01-22 23:01 | External Medical Summary | Summary of Care ---
Author Name Unknown Organization [place] [address] Care Team Providers Care Exam Proctor Name Role Phone Bj Mario DO Primary Care Provider [phone] Reason for Visit * Reason Comments eRx-Medication Refill Encounter Details Date Type Department Care Team Description 09/08/2018 Refill Family Practice [facility] [address] [place] [address] Bj Mario DO 200 [facility] [place] [address] [phone] Restless legs syndrome Allergies No Known Allergiesdocumented as of this encounter (statuses as of 09/10/2018) Medications Medication Sig Dispensed Refills Start Date [...] metoprolol succinate XL (TOPROL XL) 25 MG [id number]:Chr onic ischemic heart disease take 1/2 tablet once daily 31 Tab 5 05/10/2018 Active nystatin 205173 UNIT/ML suspensionIndicatio ns:Thrush Take 1 mL by [...] at bedtime 30 Tab 5 09/10/2018 Active rOPINIRole (REQUIP) 0.25 MG TabletIndications:R estless legs syndrome take 1 tablet by mouth at bedtime 30 Tab 5 03/05/2018 09/08/2018 Discontinued documented as of this encounter (statuses as of 09/10/2018) Active Problems Problem Noted Date Benign hypertension with CKD (chronic ki dney disease) stage III 09/06/2017 History of deep vein thrombosis (DVT) of lower extremity 09/08/2016 Status post insertion of drug eluting co ronary artery stent 04/07/2015 Overview: 2009, DUS placed in the mid RCA at [facility] Carotid stenosis, non-symptomatic 2014 Raynaud phenomenon 06/13/2011 [...] as of this encounter (statuses as of 09/10/2018) Resolved Problems Problem Noted Date Resolved Date [...] as of this encounter (statuses as of 09/10/2018) Immunizations Name Dates Previously Given Next Due [...] encounter Miscellaneous Notes * Telephone Encounter - Duy Barajas III, MD - 09/10/2018 9:21 AM EDT Signed Prescriptions: Disp Refills rOPINIRole (REQUIP) 0.25 MG Tablet 30 Tab 5 Sig: take 1 tablet by mouth at bedtime Authorizing Provider: DUY BARAJAS III * Telephone Encounter - Kathy Castro LPN - 09/10/2018 8:22 AM EDT Pending Prescriptions: Disp Refills rOPINIRole (REQUIP) 0.25 MG Tablet [Pharm*30 Tab 5 Sig: take 1 tablet by mouth at bedtime * Telephone Encounter - Kathy Castro LPN - 09/10/2018 8:21 AM EDT Pending Prescriptions: Disp Refills rOPINIRole (REQUIP) 0.25 MG Tablet [Pharm*30 Tab 5 Sig: take 1 tablet by mouth at bedtime Last Office Visit: 08/21/2018 Next Office Visit: 09/14/2018 Scheduled Provider(s): Bj Mario DO Last date the medication was ordered: 03/05/18 Patient Active Problem List Diagnosis Code Advance [...] AIC Results: No HEMOGLOBIN, A1C components found 1 documented in this encounter Plan of Treatment Upcoming Encounters Date Type Specialty Care Team Description 09/14/2018 Office Visit Family Medicine Bj Mario, DO [address] [facility] [place] [address] [phone] 09/18/2018 Office Visit Cardiology Yvon Harris PA-C [address] [place] [address] [phone] 10/09/2018 Procedure Only Endoscopy Alo Jean MD [address] [place] [address] [phone] Health Maintenance Due Date Last Done Comments *DEPRESSION SCREENING, ANNUAL FOR PTS 18 AND OVER 09/08/2018 CKD GFR USE SMARTSET 52417 02/13/201908/13, 03/08/2018, 02/14/2018, Additional history exists CKD HGB USE SMARTSET 86616 08/14/201908/13, 02/14/2018, 07/25/2016, Additional history exists CKD PHOS USE SMARTSET 25379 08/14/201907/21, 01/09/2017, 04/11/2016, Additional history exists DXA-SCREENING [...] (RLS) documented in this encounter Advance Directives Patient has advance care planning documents on file. For more information, please contact: [place] [phone]
--- OUTSIDE RECORDS SUMMARY | 2023-01-22 23:01 | External Medical Summary | Summary of Care ---
Author Name Unknown Organization [place] [address] Care Team Providers Care Line Staker Name Role Phone Bj Mario DO Primary Care Provider [phone] Reason for Visit * Reason Comments Previsit Planning Encounter Details Date Type Department Care Team Description 09/17/2018 Telephone Family Practice [facility] [address] [place] [address] Bj Mario DO [address] [facility] [place], [place] [id number] Previsit Planning Allergies No Known Allergiesdocumented as [...] metoprolol succinate XL (TOPROL XL) 25 MG [id number]:Chroni c ischemic heart disease take 1/2 tablet once daily 31 Tab 5 05/10/2018 Active lisinopril (PRINIVIL) 10 MG TabletIndications:Charles gn hypertension with CKD (chronic kidney disease) stage III (HCC),Edema take 1 tablet by mouth once daily 30 Tab 5 08/31/2018 Active rOPINIRole (REQUIP) 0.25 MG TabletIndications:Rest less legs syndrome take 1 tablet by mouth at bedtime 30 Tab 5 09/10/2018 Active nystatin 356207 UNIT/ML suspensionIndications: Thrush Take 1 mL by [...] Yvon Harris, PATylerC [address] [place] [address] [phone] 10/09/2018 Procedure Only Endoscopy Alo Jean MD [address] [place] [address] [phone] 03/20/2019 Office Visit Family Medicine Bj Mario DO [address] [place] [address] [phone] Health Maintenance Due Date Last Done Comments *DEPRESSION SCREENING, ANNUAL FOR PTS 18 AND OVER 09/08/2018 CKD GFR USE SMARTSET 40740 02/13/201908/13, 03/08/2018, 02/14/2018, Additional history exists CKD HGB USE SMARTSET 08786 08/14/201908/13, 02/14/2018, 07/25/2016, Additional history exists CKD PHOS USE SMARTSET 08455 08/14/201907/21, 01/09/2017, 04/11/2016, Additional history exists DXA-SCREENING [...] For more information, please contact: [place] [phone]
--- OUTSIDE RECORDS SUMMARY | 2023-01-22 23:01 | External Medical Summary | Summary of Care ---
Author Name Unknown Organization [place] [address] Care Team Providers Care Senior Benefits Specialist Name Role Phone Bj Mario DO Primary Care Provider [phone] Reason for Visit * Reason Comments Appointment Encounter Details Date Type Department Care Team Description 08/14/2018 Telephone Gastroenterology, [facility] [address] [facility] [place] [address] Vivi Wiseman CRNP [address] [facility] [place] [address] Appointment Allergies No Known Allergiesdocumented as of this encounter (statuses as of 08/20/2018) Medications Medication Sig Dispensed Refills Start Date [...] metoprolol succinate XL (TOPROL XL) 25 MG [id number]:Chroni c ischemic heart disease take 1/2 tablet once daily 31 Tab 5 05/10/2018 Active documented as of this encounter (statuses as of 08/20/2018) Active Problems Problem Noted Date Benign hypertension with CKD (chronic ki dney disease) stage III 09/06/2017 History of deep vein thrombosis (DVT) of lower extremity 09/08/2016 Status post insertion of drug eluting co ronary artery stent 04/07/2015 Overview: 2009, DUS placed in the mid RCA at [facility] Carotid stenosis, non-symptomatic 2014 Raynaud phenomenon 06/13/2011 [...] as of this encounter (statuses as of 08/20/2018) Resolved Problems Problem Noted Date Resolved Date [...] as of this encounter (statuses as of 08/20/2018) Immunizations Name Dates Previously Given Next Due [...] Telephone Encounter - Beatriz Rider OSA - 08/20/2018 10:00 AM EDT Patient is scheduled and aware of appointment on 10/09 at [facility] for colonoscopy. Letter and instructions sent to the patient Thank you * Telephone Encounter - Beatriz Rider OSA - 08/16/2018 10:00 AM EDT Lm at home number to call us back. Patient will need to be done at [facility]. * Telephone Encounter - Vivi Wiseman CRNP - 08/14/2018 4:55 PM EDT Pt seen at [facility] for diverticulitis. Per Dr. Jean, she needs colonoscopy w water emersion in 8week's time. Please schedule with Dr Jean. BHASKAR Estrada documented in this encounter Plan of Treatment Upcoming Encounters Date Type Specialty Care Team Description 08/21/2018 Office Visit Family Medicine Bj Mario, DO [address] [place] [address] [phone] 09/14/2018 Office Visit Family Medicine Bj Mario, DO [address] [address] [phone] 09/18/2018 Office Visit Cardiology Yvon Harris PA-C [address] [address] [phone] 10/09/2018 Procedure Only Endoscopy Alo Jean MD [address] [place] [address] [address] [phone] Health Maintenance Due Date Last Done Comments DTaP,Tdap,and Td Vaccines (1 - Tdap) 04/22/2012 04/21/2012, 04/28/2008 CKD GFR USE SMARTSET 08540 02/13/201908/13, 03/08/2018, 02/14/2018, Additional history exists CKD HGB USE SMARTSET 19646 08/14/201908/13, 02/14/2018, 07/25/2016, Additional history exists CKD PHOS USE SMARTSET 68855 08/14/201907/21, 01/09/2017, 04/11/2016, Additional history exists DXA-SCREENING [...] For more information, please contact: [place] [phone]
--- OUTSIDE RECORDS SUMMARY | 2023-01-22 23:01 | External Medical Summary | Summary of Care ---
Author Name Unknown Organization [place] [address] Care Team Providers Care Manager Applied Name Role Phone Bj Mario DO Primary Care Provider [phone] Encounter Details Date Type Department Care Team Description 08/16/2018 Scan Encounter Unspecified Department <No scans attached> [...] metoprolol succinate XL (TOPROL XL) 25 MG [id number]:Chroni c ischemic heart disease take 1/2 tablet [...] in the mid RCA at [facility] Carotid stenosis, non-symptomatic 2014 Raynaud phenomenon 06/13/2011 [...] Bj Mario DO [address] [address] [address] [phone] 09/14/2018 Office Visit Family Medicine Bj Mario DO [address] [address] [phone] 09/18/2018 Office Visit Cardiology Yvon Harris PA-C [address] [place] [address] [phone] 10/09/2018 Procedure Only Endoscopy Alo Jean MD [address] [place] [address] [phone] Health Maintenance Due Date Last Done Comments DTaP,Tdap,and Td Vaccines (1 - Tdap) 04/22/2012 04/21/2012, 04/28/2008 CKD GFR USE SMARTSET 61322 02/13/201908/13, 03/08/2018, 02/14/2018, Additional history exists CKD HGB USE SMARTSET 19243 08/14/201908/13, 02/14/2018, 07/25/2016, Additional history exists CKD PHOS USE SMARTSET 39524 08/14/201907/21, 01/09/2017, 04/11/2016, Additional history exists DXA-SCREENING [...] For more information, please contact: [place] [phone]
--- OUTSIDE RECORDS SUMMARY | 2023-01-22 23:02 | External Medical Summary ---
Author Name Unknown Address Unknown Organization [id number]:Performed at [place] [address] [facility] [place] [address] Laboratory Report Ordering Provider Test Date Status SRINI RUCKER 02/14/2018 09:47:00 Final Observation Date Value Abnormality Reference Status Fasting status - Reported 02/14/2018 09:48 12 Final Triglyceride 02/14/2018 17:24 82 <200 Final Performing Location Performed at [place] [address] [facility] [place] [address]
--- OUTSIDE RECORDS SUMMARY | 2023-01-22 23:02 | External Medical Summary | Summary of Care ---
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 Disp. Refills Start Date End Date Status ASPIRIN 81 MG PO CHEW One pill by mouth once a day with food 100 5 08/06/2008 Active VITAMIN D 1000 UNIT PO CAPSIndications:Vitamin D deficiency 1 capsule daily 30 Cap 11 10/13/2009 Active TRAVATAN Z 0.004 % ophthalmic solution Instill 1 Drop into both eyes every evening. 0 07/29/2014 Active amoxicillin (AMOXIL) 500 MG CapsuleIndications:Prop hylactic antibiotic,History of bilateral hip replacements,Hip joint replacement status,Status post total bilateral knee replacement take 4 capsules by mouth 1 hour PRIOR TO PROCEDURE 4 Cap 6 07/09/2015 Active metoprolol succinate XL (TOPROL XL) 25 MG [id number]:Chronic ischemic heart disease Take 0.5 Tabs by mouth daily. 31 Tab 5 09/07/2016 Active lisinopril (PRINIVIL) 10 MG TabletIndications:Benfrederic n hypertension with CKD (chronic kidney disease) stage III (HCC),Edema Take 1 Tab by mouth daily. 30 Tab 5 10/05/2017 Active nitroglycerin (NITROSTAT) 0.4 MG SUBLIndications:Chronic ischemic heart disease 1 every 5 min as needed with chest pain up to 3 doses in 15 minutes 25 Tab 11 10/09/2017 Active rosuvastatin (CRESTOR) 20 MG TabletIndications:Dysli pidemia, goal LDL below 70 take 1 tablet by mouth once daily 31 Tab 11 10/31/2017 Active acetaminophen (TYLENOL EXTRA STRENGTH) 500 MG Tablet Take 500 mg by mouth every 6 hours as needed for Pain. Active traMADol (ULTRAM) 50 MG TabletIndications:Displ acement of lumbar intervertebral disc without myelopathy take 1 tablet by mouth every 6 hours if needed 60 Tab 1 12/20/2017 Active rOPINIRole (REQUIP) 0.25 MG TabletIndications:Restl ess legs syndrome take 1 tablet by mouth at bedtime 30 Tab 5 03/05/2018 Active as of this encounter Active Problems Problem Noted Date Benign hypertension with CKD (chronic ki dney disease) stage III (HCC) 09/06/2017 History of deep vein thrombosis (DVT) of lower extremity 09/08/2016 Status post insertion of drug eluting co ronary artery stent 04/07/2015 Overview: 2009, DUS placed in the mid RCA at [facility] Carotid stenosis, non-symptomatic 2014 Raynaud phenomenon 06/13/2011 Knee joint replacement status 01/13/2011 Overview: 2013, right Dr Ricardo [facility] 2011: left Dr Priya Ricardo [facility] Dyslipidemia, goal LDL below 70 09/21/19 11 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 neurogenic claudication 02/17/2010 Vitamin D deficiency 10/13/2009 Chronic ischemic heart disease 0 S/P angioplasty with stent 06/30/2009 Overview: 07/01/2009 DUS in the RCA at [facility] Non-toxic multinodular goiter 04/21/2009 Overview: seen on US, repeat -10/2009 HTN, goal below 140/90 05/25/2006 Advance directive on file 01/19/2005 Overview: No, Advance Directive brochure given to patient. Hip joint replacement status 01/19/2005 Overview: right 2000, left 1992 Menopause Macular degeneration Overview: Ugo Simon MD Glaucoma of both eyes Overview: Paul Simon MD, drops used bilateral Both cataracts also as of this encounter Resolved Problems Problem Noted Date Resolved Date Prophylactic antibiotic 07/09/2015 06/02/19 18 Kidney disease, chronic, stage III (GFR 30-59 ml /min) 08/04/2014 10/12/2017 Overview: Per CKD protocol #1 Acute deep vein thrombosis of right lower extrem ity ([facility]) 03/05/2014 09/08/2016 Overview: Occurred after the right knee replacement Right leg DVT ([facility]) 03/05/2014 09/08/2016 Warfarin anticoagulation 03/05/2014 015 History of bilateral hip replacements 01/16/2013 06/02/2017 Primary open angle glaucoma 08/17/200905/22 Chest pain 06/23/2009 08/17/2009 SCREEN CANCER - COLON 02/06/2006 09/06/2017 Prophylactic antibiotic 01/19/2005 06/02/19 18 Need for prophylactic hormon e replacement therapy (postmenopausal) 06/13/2001 06/02/2017 ELEV BL PRES W-O HYPERTN 06/13/2001 007 as of this encounter Immunizations Name Dates Previously Given Next Due Pneumococcal Conjugate Vacc, 13 Valent (Prevnar) 09/22/2014 Pneumococcal Polysaccharide PPV23 (Pneumovax) 03/12/2002 Seasonal Influenza, Quadriva lent, No Preserve, 6 Mons & Above, IM 03/14/2018,03/23/2017 Seasonal Influenza, Quadriva lent, No Preserve, IM 04/11/2016,04/06/2015 Seasonal Influenza, Trivalen t, with Preserve, 3yr & Above, Split 03/10/2014,04/25/2013,03/20/2012,,02/17/2010,02/04/2009,2007,03/30/2007,02/22/2007, 6,03/12/2003,03/12/2002 TD, Preservative Free 04/21/2012,04/28/2008 Varicella Zoster Vaccine (Adult) 06/11/2008 as of this encounter Social History Tobacco Use Types Packs/Day Years Used Date Never Smoker Smokeless Tobacco: Never Used Alcohol Use Drinks/Week oz/Week Comments Yes occ Sex Assigned at Date Recorded Not on file as of this encounter Progress Notes * Cousinmartina, Paul Nascimento, DO - 03/14/2018 11:41 AM EDT Formatting of this note may be different from the original. Name: Eugenia Hu Date: 03/14/2018 HPI: Eugenia Hu is a 83 year old female seen in the pain management clinic as a follow up after having received 2 caudal epidural steroid injections. Actually doing quite well overall and has onlyvery modest discomfort with prolonged walking. 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, left 1992 HTN, goal below 140/90 Knee joint replacement status 01/13/[address] Priya Ricardo [facility] Knee joint replacement status 12/15/2013 right [facility] Macular degeneration Ugo Simon MD Menopause 1974 Need for prophylactic hormone replacement therapy (postmenopausal) 1974 Non-toxic multinodular goiter 04/2009 seen on US, repeat -10/2009 Other screening mammogram 10/24/03 Birad Code 2 Other specified glaucoma both eyes, Paul Simon MD, drops used, timolol S/P angioplasty with stent 06/30/09 [facility] Status post insertion of drug eluting coronary artery stent 04/07/20152009, DUS placed in the mid RCA at [facility] Vitamin D deficiency 10/13/2009 Past Surgical History: Procedure Laterality Date ARTHROPLASTY KNEE TOTAL Left 01/13/2011 Left, Dr Priya Ricardo [facility] ARTHROPLASTY KNEE TOTAL Right 12/16/13 Right, Dr Priya Ricardo [facility] CARDIAC CATH SCANNED RESULT 06/30/2009 DUS placed in right coronary, [facility] CARPAL TUNNEL SURGERY Bilateral 2014 bilateral COLONOSCOPY 03/22/2006 normal repeat in 2016 COLONOSCOPY, DIAGNOSTIC (RECTUM) 09/01/2016 diverticulosis/COLONOSCOPY FLEXIBLE PROXIMAL DIAGNOSTIC performed by Kaylie Ford MD at ENDOSCOPY [facility] COLONOSCOPY, GI REFERRAL OP 03/22/2005 diverticulosis, [...] INJECTION SPINE LUMBAR OR SACRAL performed by Quemado Azam Cousins, DO at [facility] INJECT DX/THER SUBSTANCE INTERLAMINAR LUMBAR/SACRAL W IMAGE GUIDE 02/12/2018 INJECTION SPINE LUMBAR OR SACRAL performed by Paul Azam Cousins, DO at [facility] MAMMOGRAM - [...] one ovary left in, Dr Chakraborty in [facility] REMOVE CATARACT, INSERT LENS PROSTH Right 01/05/[address] Messi Simon REMOVE CATARACT, INSERT LENS PROSTH Left 01/28/[address] eMssi Simon STENT, COATED/COVERED, WITH DELIVERY SYSTEM 06/30/2009 [employer] Drug Eluding Stent [facility] TOTAL HIP REPLACEMENT & PROSTHESIS 1992 left, Dr Ricardo TOTAL HIP REPLACEMENT & PROSTHESIS 10/2000 right , Dr Ricardo at [facility] Current Outpatient Prescriptions Medication Sig Dispense Refill rOPINIRole (REQUIP) 0.25 MG Tablet take 1 tablet by mouth at bedtime 30 Tab 5 acetaminophen (TYLENOL EXTRA STRENGTH) 500 MG Tablet Take 500 mg by mouth every 6 hours as needed for Pain. traMADol (ULTRAM) 50 MG Tablet take 1 tablet by mouth every 6 hours if needed 60 Tab 1 rosuvastatin (CRESTOR) 20 MG Tablet take 1 tablet by mouth once daily 31 Tab 11 nitroglycerin (NITROSTAT) 0.4 MG SUBL 1 every 5 min as needed with chest pain up to 3 doses in 15 minutes 25 Tab 11 lisinopril (PRINIVIL) 10 MG Tablet Take 1 Tab by mouth daily. 30 Tab 5 metoprolol succinate XL (TOPROL XL) 25 MG TB24 Take 0.5 Tabs by mouth daily. 31 Tab 5 amoxicillin (AMOXIL) 500 MG Capsule take 4 capsules by mouth 1 hour PRIOR TO PROCEDURE 4 Cap 6 TRAVATAN Z 0.004 % ophthalmic solution Instill 1 Drop into both eyes every evening. 0 VITAMIN D 1000 UNIT PO CAPS 1 capsule daily 30 Cap 11 ASPIRIN 81 MG PO CHEW One pill by mouth once a day with food 100 5 Review of patient's allergies indicates: No Known Allergies History Smoking Status Never Smoker Smokeless Tobacco Never Used History Alcohol Use Yes Comment: occ PHYSICAL EXAM: There were no vitals taken for this visit. No gait abnormality. Motor 5/5 BL. No gross sensory loss ASSESSMENT: Severe lumbar spinal stenosis RECOMMENDATION: Since she is doing well overall will defer further injection. She can contact me in the future if she has significant worsening of her symptoms. Paul Nascimento Cousins, DO 03/14/2018 11:41 AM in this encounter Nursing Notes * Lorri Gotti LPN - 03/14/2018 11:14 AM EDT Patient here for follow up after injection-reports 50-60% improvement Only having low back pain, no leg pain in this encounter Plan of Treatment Upcoming Encounters Date Type Specialty Care Team Description 08/15/2018 Office Visit Cardiology Yvon Harris PA-C [address] [facility] [place] [address] [phone] 09/14/2018 Office Visit [facility] Bj Mario, DO [address] [facility] [address] [phone] Health Maintenance Due Date Last Done Comments DTaP,Tdap,and Td Vaccines (1 - Tdap) 04/22/2012 04/21/2012, 04/28/2008 Influenza Vaccine (FLU shot) (#1) 2017 03/23/2017, 04/11/2016, 04/06/2015, Additional history exists CKD PHOS USE SMARTSET 96650 01/09/201812/21, 04/11/2016, 09/22/2014 CKD URINE PROTEIN/CREATININE RATION OR URINE MICROALBUMIN YEARLY USE SMARTSET 00259 01/09/2018 01/09/2017, 04/11/2016, 12/03/2013 CKD GFR USE SMARTSET 28600 09/06/201803/08, 02/14/2018, 10/02/2017, Additional history exists CKD HGB USE SMARTSET 93593 02/14/201902/14, 07/25/2016, 04/11/2016, Additional history exists DXA-SCREENING EVERY 7 YRS-US E SMARTSET# 3348 TO ORDER 10/30/2020 10/30/2013, 10/30/2013, 08/24/2009, Additional history exists DIABETES SCREEN EVERY 3 YRS- AGE 45 AND ABOVE 03/08/2021 03/08/2018, 02/14/2018, 10/02/2017, Additional history exists PNEUMOCOCCAL ADULT 65 YRS AND OVER Completed 2014, 03/12/2002 as of this encounter Implants Not on fileas of this encounter Visit Diagnoses Diagnosis Spinal stenosis of lumbar re gion with neurogenic claudication - Primary Spinal stenosis, lumbar region, with neurogenic claudication in this encounter
--- OUTSIDE RECORDS SUMMARY | 2023-01-22 23:02 | External Medical Summary ---
Author Name Unknown Address [address] [place] [address] Phone Organization K0G:[facility] [address] [facility] [place] [address] Laboratory Report Ordering Provider Test Date Status SRINI RUCKER 03/08/2018 10:40:00 Final Observation Date Value Abnormality Reference Status BUN 03/08/2018 11:56 18 6-20 Fin al Creatinine 03/08/2018 11:56 1.2 Above high normal 0.5- 1.0 Final Performing Location [facility] [address] [place] [address]
--- OUTSIDE RECORDS SUMMARY | 2023-01-22 23:02 | External Medical Summary ---
Author Name Unknown Address [facility] [place] [address] Phone Organization K01:[place] [address] [place] [id number] Laboratory Report Ordering Provider Test Date Status ANIVAL HANKINS 03/14/2018 11:07:00 Final Observation Date Value Abnormality Reference Status Protein, Urine 03/14/2018 19:23 6 Final Performing Location [facility] [address] [place] [id number]
--- OUTSIDE RECORDS SUMMARY | 2023-01-22 23:02 | External Medical Summary ---
Author Name Unknown Address [address] [facility] [place] [address] Phone Organization K0G:[facility] [address] [facility] [place] [address] Laboratory Report Ordering Provider Test Date Status SRINI RUCKER 02/14/2018 09:47:00 Final Observation Date Value Abnormality Reference Status BUN 02/14/2018 11:05 33 Above high normal 6-20 Final Creatinine 02/14/2018 11:05 1.3 Above high normal 0.5- 1.0 Final Performing Location [facility] [address] [place] [address]
--- OUTSIDE RECORDS SUMMARY | 2023-01-22 23:02 | External Medical Summary | Summary of Care ---
Author Name Unknown Organization [place] [address] Phone Care Team Providers Care Public Speaking Teacher Name Role Phone Bj Mario DO Primary Care Provider Reason for Visit * Reason Comments MEDICATION ADMINISTRATION Flu and/or Pne umo Inj Encounter Details Date Type Department Care Team Description 03/14/2018 Office Visit Family Practice [facility] [address] [place] [address] Bj Mario [address] [place] [address] [phone] Routine medical exam*;Need for prophylactic vaccination and inoculation against influenza;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) Allergies No Known Allergiesas of this encounter [...] metoprolol succinate XL (TOPROL XL) 25 MG [id number]:Chronic ischemic heart disease Take 0.5 Tabs by mouth daily. 31 Tab 5 09/07/2016 Active lisinopril (PRINIVIL) 10 MG TabletIndications:Rick manning [...] mid RCA at [facility] Carotid stenosis, non-symptomatic 2014 Raynaud [...] vein thrombosis of right lower extrem ity ([facility]) 03/05/2014 09/08/2016 Overview: Occurred after the right knee replacement Right leg DVT ([facility]) 03/05/2014 09/08/2016 Warfarin anticoagulation 03/05/2014 015 History [...] Not on file as of this encounter Last Filed Vital Signs Vital Sign Reading Time Taken Blood Pressure 118/76 03/14/2018 8:53 AM EDT Pulse 60 03/14/2018 8:53 AM EDT Temperature 35.6 C (96 F) 03/14/2018 8:5 3 AM EDT Respiratory Rate 16 03/14/2018 8:53 AM EDT Oxygen Saturation - - Inhaled Oxygen Concentration - - Weight 85.5 kg (188 lb 6.4 oz) 03/14/20 18 8:53 AM EDT Height - - Body Mass Index 32.32 03/14/2018 8:53 AM EDT in this encounter Progress Notes * Bj Mario, DO - 03/14/2018 9:15 AM EDT Formatting of this note may be different from the original. Subjective: Eugenia Hu is a 83 year old female. Chief Complaint Patient presents with MEDICATION ADMINISTRATION Flu and/or Pneumo Inj HPI: Pt here for a physical. Feeling better after second injection. Seeing Dr. Berg again today. Still seeing Dr. Hall also. CKD reviewed. Will get a urine today. PMHx, PSHx, SHx, FHx, Medications, and Allergies fully reviewed BP good today. Weight up and down. Avoding eating after 7 PM and it helps. Drinking more water. No falls. Trouble walking sometimes. PHM: Patient Active Problem List Diagnosis Code Advance directive on file Z78.9 Menopause Z78.0 Hip joint replacement status Z96.649 Macular degeneration H35.30 Glaucoma of both eyes H40.9 HTN, goal below 140/90 I10 Non-toxic multinodular goiter E04.2 Chronic ischemic heart disease I25.9 Vitamin D deficiency E55.9 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 neurogenic claudication M48.061 S/P angioplasty with stent Z95.9 Dyslipidemia, goal LDL below 70 E78.5 Knee joint replacement status Z96.659 Raynaud phenomenon I73.00 Carotid stenosis, non-symptomatic I65.29 Status post insertion of drug eluting coronary artery stent Z95.5 History of deep vein thrombosis (DVT) of lower extremity Z86.718 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) I12.9, N18.3 Current Outpatient Prescriptions Medication Sig Dispense Refill [...] TOTAL Left 01/13/2011 Left, Dr Priya Ricardo NCNATASHA ARTHROPLASTY KNEE TOTAL Right 12/16/13 Right, Dr Priya Ricardo [facility] CARDIAC CATH SCANNED RESULT 06/30/2009 DUS placed in right coronary, [facility] CARPAL TUNNEL SURGERY Bilateral 2014 bilateral COLONOSCOPY 03/22/2006 normal repeat in 2016 COLONOSCOPY, DIAGNOSTIC (RECTUM) 09/01/2016 diverticulosis/COLONOSCOPY FLEXIBLE PROXIMAL DIAGNOSTIC performed by Kaylie Fodr MD at ENDOSCOPY [facility] COLONOSCOPY, GI REFERRAL OP 03/22/2005 diverticulosis, repeat [...] INJECTION SPINE LUMBAR OR SACRAL performed by [facility] Cousins, DO at OR [facility] INJECT DX/THER SUBSTANCE INTERLAMINAR LUMBAR/SACRAL W IMAGE GUIDE 02/12/2018 INJECTION SPINE LUMBAR OR SACRAL performed by [facility] Cousins, DO at OR [facility] MAMMOGRAM - BILATERAL 2.1.02 negative finding. birad [...] one ovary left in, Dr Chakraborty in [facility] REMOVE CATARACT, INSERT LENS PROSTH Right 01/05/[address] Messi Simon REMOVE CATARACT, INSERT LENS PROSTH Left 01/28/[address] Messi Simon STENT, COATED/COVERED, WITH DELIVERY SYSTEM 06/30/2009 [employer] Endeaver Drug Eluding Stent [facility] TOTAL HIP REPLACEMENT & PROSTHESIS 1992 left, Dr Ricardo TOTAL HIP REPLACEMENT & PROSTHESIS 10/2000 right , Dr Ricardo at [facility] Review of patient's allergies indicates: No Known Allergies Family History Problem Relation Age of Onset Cancer Mother cancer of bone Lung Disorder Father old age with heart failure Heart Disorder Brother OK at age 62 Heart Disorder Brother angina Family Status Relation Status Mother at age 79 cancer of bone Father at age 82 old age Brother MVA Brother at age 62 heart attack Brother Alive TKR times two, angina, pancreas nodule Brother Alive Brother Alive Son Alive Daughter Alive CHRISTINE at age 42 Daughter Alive Brother Brother Social History Social History Marital status: Spouse name: Silverio Number of children: 3 Years of education: N/A Occupational History retired, [employer] Social History Main Topics Smoking status: Never Smoker Smokeless tobacco: Never Used Alcohol use Yes Comment: occ Drug use: No Sexual activity: Yes Partners: Male Other Topics Concern Service No Blood Transfusions No Social History Narrative born [place] in [facility] since 1953 ; 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 Review of Systems: General: No change in weight, No weakness, No fatigue and No fevers, sweats, or chills Head: No significant headache and No recent significant head injury Eyes: No recent significant change in vision, No eye pain, redness, discharge, or excessive tearing, No diplopia and No h/o cataracts or glaucoma Ears: No recent change in hearing, No tinnitus or vertigo, No ear pain and No ear discharge Nose: No h/o frequent colds or sinusitis, No nasal stuffiness, No h/o hay fever and No significant epistaxis Throat/Oropharynx: No teeth or gum problems, No bleeding gums, No tongue complaints, No sore throatand No recent change in voice or hoarseness Neck: No complaint of lumps in neck, No swollen glands, No recent swelling in thyroid area and No significant pain in neck Breast: No new breast lumps, No severe breast pain, No nipple discharge, No recent change in shape/contor and Patient does perform monthly self breast exam Respiratory: No cough, sputum, or hemoptysis, No wheezing, No shortness of breath and No recent change in breathing Cardiac: No chest pain, No shortness of breath, No dyspnea on exertion, No orthopnea, No paroxysmalnocturnal dyspnea, No edema, No palpitations and No syncope Gastrointestinal: No dysphagia, No significant heartburn, No significant change in appetite, No nausea, vomiting, diarrhea, or constipation, No hematemesis, No blood in stools or black tarry stools, No abdominal bloating or early satiety and No abdominal pain Urinary: No urinary frequency, No dysuria, No hematuria, No urinary urgency, No polyuria, No nocturia, No incontinence, No hesitancy and No sensation of incomplete voiding Musculoskeletal: as above Hematologic: No anemia, No easy bruising or abnormal bleeding and No history of transfusion Neurologic: No fainting or blackouts, No seizures, No paralysis or focal weakness, No numbness or tingling, No tremors and No significant problems with memory Objective: BP 118/76 | Pulse 60 | Temp 96 | Resp 16 | Wt 188 lbs 6.4 oz (85.458kg) | BMI 32.32 kg/m | BSA 1.97 m Physical Exam: General: alert, healthy and no distress Head: Normocephalic, No masses, lesions, tenderness or abnormalities Ears: External ears normal, Canals clear, TM's Normal Nose: no mucosal erythema, no mucosal edema, no purulent discharge, no septal hematoma Oropharynx: no exudate, no erythema, lips, buccal mucosa, and tongue normal and mucous membranes are moist Neck: supple, no adenopathy, no bruits, thyroid normal size, non-tender, without nodularity Heart: regular rate & rhythm, no murmurs and no gallops Lungs: chest symmetric with normal AP diameter, no chest deformities noted, no chest wall tenderness, lungs clear to auscultation Abdomen: abdomen soft, non-tender, normal bowel sounds and no masses or organomegaly Extremities: no joint deformities, effusion, or inflammation, no edema, no clubbing, no cyanosis ASSESSMENT: Z00.00 Routine medical exam (primary encounter diagnosis) Z23 Need for prophylactic vaccination and inoculation against influenza Plan: Influenza vacc, quad, pf, 6 months & up, 0.5 ml, im I12.9, N18.3 Benign hypertension with ckd (chronic kidney disease) stage iii (hcc) Plan: Protein, rd urine Protein, rd urine Follow up: Return in about 6 months (around 09/12/2018). Dental and sun care discussed along with weight. Bj Mario, DO * Keerthi Barry RN - 03/14/2018 8:57 AM EDT PRE - ADMINISTRATION DOCUMENTATION Are you allergic to latex? No Are you experiencing any cold symptoms or fever? No Have you had Guillain-Irvine Syndrome (an illness that causes paralysis)? No Have you had the flu shot in the past? YES Have you ever had a reaction to the flu shot? No Keerthi Barry RN, 03/14/2018 8:57 AM Immunization Administration Documentation Time Out Procedure Performed: Yes Patient Identified (Ask Name/Date of ): Yes Does the patient have a fever greater than 101 degrees today? No Patient allergic to latex? 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) 03/14/2018 11:07 AM EDT Scheduled Tests Name Priority Associated Diagnoses Order S chedule PROTEIN, RD URINE Routine 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) Expected: 03/14/2018 (Approximate), Expires: 03/14/2019 Health Maintenance Due Date Last Done Comments DTaP,Tdap,and Td Vaccines (1 - Tdap) 04/22/2012 04/21/2012, 04/28/2008 Influenza Vaccine (FLU shot) (#1) 2017 03/23/2017, 04/11/2016, 04/06/2015, Additional history exists CKD PHOS USE SMARTSET 33945 01/09/201812/21, 04/11/2016, 09/22/2014 CKD URINE PROTEIN/CREATININE RATION OR URINE MICROALBUMIN YEARLY USE SMARTSET 46595 01/09/2018 01/09/2017, 04/11/2016, 12/03/2013 CKD GFR USE SMARTSET 47637 09/06/201803/08, 02/14/2018, 10/02/2017, Additional history exists CKD HGB USE SMARTSET 31209 02/14/201902/14, 07/25/2016, 04/11/2016, Additional history exists DXA-SCREENING EVERY 7 YRS- E SMARTSET# [id number] TO ORDER 10/30/2020 10/30/2013, 10/30/2013, 08/24/2009, Additional history exists DIABETES SCREEN EVERY 3 YRS- AGE 45 AND ABOVE 03/08/2021 03/08/2018, 02/14/2018, 10/02/2017, Additional history exists PNEUMOCOCCAL ADULT 65 YRS AND OVER Completed 2014, 03/12/2002 as of this encounter Implants Not on fileas of this encounter Visit Diagnoses Diagnosis Routine medical exam - Prima ry Routine general medical examination at a health care facility Need for prophylactic vaccin ation and inoculation against influenza 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 I through stage IV, or unspecified in this encounter"
--- OUTSIDE RECORDS SUMMARY | 2023-01-22 23:02 | External Medical Summary | Summary of Care ---
Author Name Unknown Organization [place] [address] Care Team Providers Care Supervisor Whipped Topping Name Role Phone Bj Mario DO Primary Care Provider [phone] Reason for Visit * Reason Comments Back Pain Encounter Details Date Type Department Care Team Description 08/03/2018 Office Visit Interventional Pain Center, [facility] [address] [place] [address] CouPaul gillespie [address] [place] [address] [phone] Spinal stenosis of lumbar region with neurogenic claudication* Allergies No Known Allergiesdocumented as of this encounter (statuses as of 08/03/2018) Medications Medication Sig Dispensed Refills Start Date [...] 0 07/29/2014 Active lisinopril (PRINIVIL) 10 MG TabletIndications:Be nign hypertension with CKD (chronic kidney disease) stage III (HCC),Edema Take 1 Tab by mouth daily. 30 Tab 5 10/05/2017 Active nitroglycerin (NITROSTAT) 0.4 MG SUBLIndications:Bun Icer jose alberto ischemic heart disease 1 every 5 min as needed with chest pain up to 3 doses in 15 minutes 25 Tab 11 10/09/2017 Active rosuvastatin (CRESTOR) 20 MG TabletIndications:Dy slipidemia, goal LDL below 70 take 1 tablet by mouth once daily 31 Tab 11 10/31/2017 Active acetaminophen (TYLENOL EXTRA STRENGTH) 500 MG Tablet Take 500 mg by mouth every 6 hours as needed for Pain. 0 Active rOPINIRole (REQUIP) 0.25 MG TabletIndications:Re stless legs syndrome take 1 tablet by mouth at bedtime 30 Tab 5 03/05/2018 Active amoxicillin (AMOXIL) 500 MG CapsuleIndications:P rophylactic antibiotic,History of bilateral hip replacements,Hip joint replacement status,Status post total bilateral knee replacement TAKE 4 CAPSULES BY MOUTH 1 HOUR PRIOR TO PROCEDURE. 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 take 1 tablet by mouth every 6 hours if needed 60 Tab 1 04/17/2018 9 Discontinued documented as of this encounter (statuses as of 08/03/2018) Active Problems Problem Noted Date Benign hypertension with CKD (chronic ki dney disease) stage III 09/06/2017 History of deep vein thrombosis (DVT) of lower extremity 09/08/2016 Status post insertion of drug eluting co ronary artery stent 04/07/2015 Overview: 2009, DUS placed in the mid RCA at [facility] Carotid stenosis, non-symptomatic 2014 Raynaud [...] as of this encounter (statuses as of 08/03/2018) Resolved Problems Problem Noted Date Resolved Date [...] as of this encounter (statuses as of 08/03/2018) Immunizations Name Dates Previously Given Next Due [...] encounter Progress Notes * Paul Berg, - 08/03/2018 7:58 AM EDT Name: Eugenia Hu Date: 08/03/2018 HPI: Eugenia Hu is a 83 year old female seen in the pain management clinic as a follow up after last visit 6 months ago. Did well after last JACKIE in January, up until recently. Getting pain in BL low lumbar/buttocks again. Wants to consider injection if possible. Had PT for 6 weeks within the last 6 months and not improved with Tramadol, NSAIDS, Tylenol. No change in PMH, meds updated. History: Past Medical History: Diagnosis Date Dyslipidemia, [...] TOTAL Left 01/13/2011 Left, Dr Priya Ricardo AZNATASHA ARTHROPLASTY KNEE TOTAL Right 12/16/13 Right, Dr Priya Ricardo [facility] CARDIAC CATH SCANNED RESULT 06/30/2009 DUS placed in right coronary, [facility] CARPAL TUNNEL SURGERY Bilateral 2014 bilateral COLONOSCOPY 03/22/2006 normal repeat in 2016 COLONOSCOPY, DIAGNOSTIC (RECTUM) 09/01/2016 diverticulosis/COLONOSCOPY FLEXIBLE PROXIMAL DIAGNOSTIC performed by Kaylie Ford MD at ENDOSCOPY [facility] COLONOSCOPY, GI REFERRAL OP 03/22/2005 [...] Paul Nascimento Cousins, DO at OR [facility] MAMMOGRAM - [...] one ovary left in, Dr Chakraborty in [facility] REMOVE CATARACT, INSERT LENS PROSTH Right 01/05/[address] Messi Simon REMOVE CATARACT, INSERT LENS PROSTH Left 01/28/[address] Messi Simon STENT, COATED/COVERED, WITH DELIVERY SYSTEM 06/30/2009 [employer] Endeaver Drug Eluding Stent [facility] TOTAL HIP REPLACEMENT & PROSTHESIS 1992 left, Dr Ricardo TOTAL HIP REPLACEMENT & PROSTHESIS 10/2000 right , Dr Ricardo at [facility] Current Outpatient Medications Medication Sig [...] No gait abnormality. Motor 5/5 BL. No SI joint or GTB tenderness ASSESSMENT: Severe lumbar spinal stenosis RECOMMENDATION: Will schedule for caudal JACKIE as requested. Paul Berg DO 08/03/2018 7:59 AM documented in this encounter Plan of Treatment Upcoming Encounters Date Type Specialty Care Team Description 08/13/2018 Hospital Encounter Surgery Paul Berg DO [address] [place] [address] [phone] 08/13/2018 Surgery Surgery Paul Berg DO [address] [place] [address] [phone] INJECTION SPINE LUMBAR OR SACRAL 08/15/2018 Office Visit Cardiology Yvon Harris PA-C [address] [place] [address] [phone] 09/14/2018 Office Visit Family Medicine Bj Mario DO [address] [facility] [place] [address] [phone] Health Maintenance Due Date Last Done Comments DTaP,Tdap,and Td Vaccines (1 - Tdap) 04/22/2012 04/21/2012, 04/28/2008 CKD PHOS USE SMARTSET 84908 01/09/201812/21, 04/11/2016, 09/22/2014 CKD GFR USE SMARTSET 79319 09/06/2018 10/18 /2018, 02/14/2018, 10/02/2017, Additional history exists CKD HGB USE SMARTSET 81280 02/14/201902/14, 07/25/2016, 04/11/2016, Additional history exists DXA-SCREENING [...] claudication documented in this encounter Advance Directives Patient has advance care planning documents on file. For more information, please contact: [place] [phone]
--- OUTSIDE RECORDS SUMMARY | 2023-01-22 23:02 | External Medical Summary | Summary of Care ---
Author Name Unknown Organization [place] [address] Care Team Providers Care Heart Nurse Name Role Phone Nhi Florian DO Primary Care Provider Reason for Visit * Reason Comments eRx-Medication Refill Encounter Details Date Type Department Care Team Description 05/09/2018 Refill Cardiology, [facility] [address] [place] [address] Yvon Harris PA-C [address] [facility] [place] [address] [phone] CHR ISCHEMIC HRT DIS NOS Allergies No Known Allergiesas of this encounter Medications Medication Sig Dispensed Refills Start Date [...] 5 10/05/2017 Active nitroglycerin (NITROSTAT) 0.4 MG SUBLIndications:Professor/Nurse Anesthetist jose alberto ischemic heart disease 1 every [...] at bedtime 30 Tab 5 03/05/2018 Active traMADol (ULTRAM) 50 MG TabletIndications: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 4 Cap 6 04/27/2018 Active metoprolol succinate XL (TOPROL XL) 25 MG [id number]:Professor/Nurse Anesthetist jose alberto ischemic heart disease take 1/2 tablet once daily 31 Tab 5 05/10/2018 Active metoprolol succinate XL (TOPROL XL) 25 MG [id number]:Professor/Nurse Anesthetist jose 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 31 Tab 5 09/07/2016 8 Discontinued as of this encounter Active Problems Problem Noted Date Benign hypertension with CKD (chronic ki dney disease) stage III 09/06/2017 History of deep vein thrombosis (DVT) of lower extremity 09/08/2016 Status post insertion of drug eluting co ronary artery stent 04/07/2015 Overview: 2009, DUS placed in the mid RCA at [facility] Carotid stenosis, non-symptomatic 2014 Raynaud phenomenon 06/13/2011 Knee joint replacement status 01/13/2011 Overview: 2013, right Dr Ricardo [facility] 2011: left Dr Priya Ricardo [facility] Dyslipidemia, goal LDL below 70 09/21/19 11 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 neurogenic claudication 02/17/2010 Vitamin D deficiency 10/13/2009 Chronic ischemic heart disease 0 S/P angioplasty with stent 06/30/2009 Overview: 07/01/2009 DUS in the RCA at [facility] Non-toxic multinodular goiter 04/21/2009 Overview: seen [...] file Travel History Travel Start Travel End as of this encounter Miscellaneous Notes * Telephone Encounter - Nhi Florian DO - 05/10/2018 3:22 PM EST Signed Prescriptions: Disp Refills metoprolol succinate XL (TOPROL XL) 25 MG *31 Tab 5 Sig: take 1/2 tablet once daily Authorizing Provider: NHI FLORIAN * Telephone Encounter - Maisha Gates LPN - 05/10/2018 9:19 AM EST Pending Prescriptions: Disp Refills metoprolol succinate XL (TOPROL XL) 25 MG*31 Tab 5 Sig: take 1/2 tablet once daily * Telephone Encounter - Maisha Gates LPN - 05/10/2018 9:19 AM EST Pending Prescriptions: Disp Refills metoprolol succinate XL (TOPROL XL) 25 MG*31 Tab 5 Sig: take 1/2 tablet once daily Last Office Visit: 02/14/2018 Next Office Visit: 08/15/2018 Scheduled Provider(s): Yvon Harris PA-C Last date the medication was ordered: 09/07/16 Patient Active Problem List Diagnosis Code Advance [...] with CKD (chronic kidney disease) stage III ([facility]) I12.9, N18.3 Labs: CREATININE(mg/dL) Apollo Dt/Tm Resulted Value Status 03/08/18 10:40A 03/08/18 1.2* FINAL POTASSIUM(mmol/L) Apollo Dt/Tm Resulted Value Status 03/08/18 10:40A 03/08/18 4.6 FINAL TSH(uIU/mL) Apollo Dt/Tm Resulted Value Status 10/02/17 1:29P 10/02/17 3.36 FINAL LDL (CALCULATED)(mg/dL) Apollo Dt/Tm Resulted Value Status 02/14/18 9:47A 02/14/18 55 FINAL LDL DIRECT(REFLEX)(mg/dL) Apollo Dt/Tm Resulted Value Status 02/14/18 9:47A 02/14/18 FINAL Value: NOT APPLICABLE ALT(U/L) Apollo Dt/Tm Resulted Value Status 02/14/18 9:47A 02/14/18 8* FINAL Hemoglobin AIC Results: No HEMOGLOBIN, A1C components found in this encounter Plan of Treatment Upcoming Encounters Date Type Specialty Care Team Description 08/15/2018 Office Visit Cardiology Yvon Harris, PATylerC [address] [facility] [place] [address] [phone] 09/14/2018 Office Visit Family Medicine Nhi Florian, DO [address] [facility] [place] [place] [address] [phone] Health Maintenance Due Date Last Done Comments DTaP,Tdap,and Td Vaccines (1 - Tdap) 04/22/2012 04/21/2012, 04/28/2008 CKD PHOS USE SMARTSET 74315 01/09/201812/21, 04/11/2016, 09/22/2014 CKD GFR USE SMARTSET 78146 09/06/201803/08, 02/14/2018, 10/02/2017, Additional history exists CKD HGB USE SMARTSET 53835 02/14/201902/14, 07/25/2016, 04/11/2016, Additional history exists CKD URINE PROTEIN/CREATININE RATION OR URINE MICROALBUMIN YEARLY USE SMARTSET 34946 03/14/2019 03/14/2018, 01/09/2017, 04/11/2016, Additional history exists DXA-SCREENING EVERY 7 YRS-US E SMARTSET# [id number] TO ORDER 10/30/2020 10/30/2013, 10/30/2013, 08/24/2009, Additional history exists DIABETES SCREEN EVERY 3 YRS- AGE 45 AND ABOVE 03/08/2021 03/08/2018, 02/14/2018, 10/02/2017, Additional history exists PNEUMOCOCCAL ADULT 65 YRS AND OVER Completed 2014, 03/12/2002 Influenza Vaccine (FLU shot) Completed , 03/23/2017, 04/11/2016, Additional history exists as of this encounter Implants Not on fileas of this encounter Visit Diagnoses Diagnosis CHR ISCHEMIC HRT DIS NOS Chronic ischemic heart disease, unspecified in this encounter Advance Directives Patient has advance care planning documents on file. For more information, please contact: [place] [phone]
--- OUTSIDE RECORDS SUMMARY | 2023-01-22 23:02 | External Medical Summary | Summary of Care ---
Author Name Unknown Organization [place] [address] Care Team Providers Care Point Of Care Specialist Name Role Phone Nhi Florian DO Primary Care Provider [phone] Reason for Visit * Reason Comments Medication Refill Encounter Details Date Type Department Care Team Description 04/17/2018 Refill Family Practice [facility] [address] [place] [address] Nhi Florian DO [address] [place] [address] [phone] Displacement of lumbar intervertebral disc without myelopathy Allergies No Known Allergiesas of this encounter [...] 0 07/29/2014 Active amoxicillin (AMOXIL) 500 MG CapsuleIndications:P rophylactic antibiotic,History of bilateral hip replacements,Hip joint replacement status,Status post total bilateral knee replacement take 4 capsules by mouth 1 hour PRIOR TO PROCEDURE 4 Cap 6 07/09/2015 Active metoprolol succinate XL (TOPROL XL) 25 MG [id number]:Marketing Database Coordinator jose 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 31 Tab 5 09/07/2016 Active lisinopril (PRINIVIL) 10 MG TabletIndications:Be nign hypertension with CKD (chronic kidney disease) stage III (HCC),Edema Take 1 Tab by mouth daily. 30 Tab 5 10/05/2017 Active nitroglycerin (NITROSTAT) 0.4 MG SUBLIndications:Marketing Database Coordinator jose alberto ischemic heart disease 1 [...] if needed 60 Tab 1 04/17/2018 Active traMADol (ULTRAM) 50 MG TabletIndications:Di splacement of lumbar intervertebral disc without myelopathy take 1 tablet by mouth every 6 hours if needed 60 Tab 1 12/20/2017 8 Discontinued as of this encounter Active Problems Problem Noted Date Benign hypertension with CKD (chronic ki dney disease) stage III 09/06/2017 History of deep vein thrombosis (DVT) of lower extremity 09/08/2016 Status post insertion of drug eluting co ronary artery stent 04/07/2015 Overview: 2009, DUS placed in the mid RCA at [facility] Carotid stenosis, non-symptomatic 2014 Raynaud phenomenon 06/13/2011 Knee joint replacement status 01/13/2011 Overview: 2013, right Dr Ricardo [facility] 2011: [...] Telephone Encounter - Nhi Florian DO - 04/17/2018 3:28 PM EST Signed Prescriptions: Disp Refills traMADol (ULTRAM) 50 MG Tablet 60 Tab 1 Sig: take 1 tablet by mouth every 6 hours if needed Authorizing Provider: NHI FLORIAN * Telephone Encounter - Malorie Whitaker [facility] - 04/17/2018 12:59 PM EST I have reviewed the patients controlled substance dispensing history in the Prescription Drug Monitoring Program in compliance with the [facility] regulations before prescribing a controlled substance. PDMP checked on 04/17/2018. Patient requesting: Tramadol 50mg, filled 02/09/18, for #60 for a 15 day supply. Other recent controlled medication fills: None Date medication is due for refill: today Toxicology results: No results found for this or any previous visit. Please approve if appropriate. Thank You, Malorie Whitaker [facility] Staff Pharmacist Pharmacy Refill Call Center 04/17/2018, 12:59 PM * Telephone Encounter - Maura Bueno community development worker - 04/17/2018 10:35 AM EST JN Pending Prescriptions: Disp Refills traMADol (ULTRAM) 50 MG Tablet 60 Tab 1 Sig: take 1 tablet by mouth every 6 hours if needed Last Office Visit: 03/14/2018 Next Office Visit: 09/14/2018 Scheduled Provider(s): Nhi Florian DO If no future appointments scheduled, and last appointment is greater than a year ago, please schedule patient for a follow-up appointment Last date the medication was ordered: 12/20/17 Patient Phone Numbers Labs: Lab Results Component Value Date/Time CREAT 1.2 (H) 03/08/2018 10:40 AM POTASSIUM 4.6 03/08/2018 10:40 AM TSH 3.36 10/02/2017 01:29 PM LDLCALC 55 02/14/2018 09:47 AM LDLDIRECT 92 06/13/2011 10:52 AM ALT 8 (L) 02/14/2018 09:47 AM in this encounter Plan of Treatment Upcoming Encounters Date Type Specialty Care Team Description 08/15/2018 Office Visit Cardiology Yvon Harris PA-C [address] [place] [address] [phone] 09/14/2018 Office Visit Family Medicine Nhi Florian, DO [address] [facility] [address] [phone] Health Maintenance Due Date Last Done Comments DTaP,Tdap,and Td Vaccines (1 - Tdap) 04/22/2012 04/21/2012, 04/28/2008 CKD PHOS USE SMARTSET 51673 01/09/2018/05/2016, 04/11/2016, 09/22/2014 CKD GFR USE SMARTSET 93431 09/06/201803/08, 02/14/2018, 10/02/2017, Additional history exists CKD HGB USE SMARTSET 68311 02/14/201902/14, 07/25/2016, 04/11/2016, Additional history exists CKD URINE PROTEIN/CREATININE RATION OR URINE MICROALBUMIN YEARLY USE SMARTSET 57585 03/14/2019 03/14/2018, 01/09/2017, 04/11/2016, Additional history exists DXA-SCREENING EVERY 7 YRS- E SMARTSET# [id number] TO ORDER 10/30/2020 10/30/2013, 10/30/2013, 08/24/2009, Additional history exists DIABETES SCREEN EVERY 3 YRS- AGE 45 AND ABOVE 03/08/2021 03/08/2018, 02/14/2018, 10/02/2017, Additional history exists PNEUMOCOCCAL ADULT 65 YRS AND OVER Completed 2014, 03/12/2002 Influenza Vaccine (FLU shot) Completed , 03/23/2017, 04/11/2016, Additional history exists as of this encounter Implants Not on fileas of this encounter Visit Diagnoses Diagnosis Displacement of lumbar intervertebral disc without myelopathy in this encounter Advance Directives Patient has advance care planning documents on file. For more information, please contact: [place] [phone]
--- OUTSIDE RECORDS SUMMARY | 2023-01-22 23:02 | External Medical Summary | Summary of Care ---
Author Name Unknown Organization [place] [address] Phone Care Team Providers Care Ordering Machine Operator Name Role Phone AntioneBj barron Vin LINARES Primary Care Provider [phone] Reason for Visit * Reason Comments FOLLOW UP Encounter Details Date Type Department Care Team Description 02/05/2018 Telephone [facility], [facility] [address] [place] [address] CouPaul gillespieDO [address] [place] [address] [phone] FOLLOW UP Allergies No Known Allergiesas of this encounter [...] metoprolol succinate XL (TOPROL XL) 25 MG [id number]:Chronic ischemic heart disease Take 0.5 Tabs by mouth daily. 31 Tab 5 09/07/2016 Active isosorbide mononitrate SA (IMDUR) 30 MG [id number]:Chest heaviness Take 1 Tab by mouth daily. In the morning 31 Tab 5 08/14/2017 Active rOPINIRole (REQUIP) 0.25 MG TabletIndications:Restl ess legs syndrome Take 1 Tab by mouth at bedtime. 30 Tab 5 09/06/2017 Active lisinopril (PRINIVIL) 10 MG TabletIndications:Rick n hypertension with CKD (chronic kidney disease) stage III,Edema Take 1 Tab by mouth daily. 30 [...] if needed 60 Tab 1 12/20/2017 Active as of this encounter Active Problems Problem Noted Date Benign hypertension with CKD (chronic ki dney disease) stage III 09/06/2017 History of deep vein thrombosis (DVT) of lower extremity 09/08/2016 Status post insertion of drug eluting co ronary artery stent 04/07/2015 Overview: 2009, DUS placed in the mid RCA at [facility] Carotid stenosis, non-symptomatic 2014 Raynaud phenomenon 06/13/2011 [...] vein thrombosis of right lower extrem ity (HCC) 03/05/2014 09/08/2016 Overview: Occurred after the right knee replacement Right leg DVT (HCC) 03/05/2014 09/08/2016 Warfarin anticoagulation 03/05/2014 015 History [...] No Preserve, 6 Mons & Above, IM 03/23/2017 Seasonal Influenza, Quadriva lent, No Preserve, IM [...] Not on file as of this encounter Miscellaneous Notes * Telephone Encounter - Venice Ortiz, ALESHA - 02/05/2018 8:00 AM EDT Calling after injection - she estimates 75% improvement for the first week. She is willing to do another injection if recommended. in this encounter Plan of Treatment Upcoming Encounters Date Type Specialty Care Team Description 02/14/2018 Office Visit Cardiology Yvon Harris, PA-C [address] [facility] [place] [address] [phone] 03/14/2018 Office Visit Family Medicine Bj Mario, DO [address] [place], [place] [address] [phone] Scheduled Tests Name Priority Associated Diagnoses Order S chedule INJECT DX/THER SUBSTANCE INTERLAMINAR LUMBAR/SACRAL W IMAGE GUIDE Routine Spinal stenosis of lumbar region with neurogenic claudication Ordered: 02/05/2018 Health Maintenance Due Date Last Done Comments Zoster Vaccines HMT (2 of 3) 08/06/2008 06/11/2008 DTaP,Tdap,and Td Vaccines (1 - Tdap) 04/22/2012 04/21/2012, 04/28/2008 CKD HGB USE SMARTSET 85599 07/25/201707/25, 04/11/2016, 10/12/2015, Additional history exists Influenza Vaccine (FLU shot) (#1) 2017 03/23/2017, 04/11/2016, 04/06/2015, Additional history exists CKD PHOS USE SMARTSET 77707 01/09/201812/21, 04/11/2016, 09/22/2014 CKD URINE PROTEIN/CREATININE RATION OR URINE MICROALBUMIN YEARLY USE SMARTSET 27195 01/09/2018 01/09/2017, 04/11/2016, 12/03/2013 *LDL AFTER STARTING A STATIN 02/02/2018 CKD GFR USE SMARTSET 03976 04/04/201810/02, 01/09/2017, 07/25/2016, Additional history exists DIABETES SCREEN EVERY 3 YRS- AGE 45 AND ABOVE 10/02/2020 10/02/2017, 01/09/2017, 07/25/2016, Additional history exists DXA-SCREENING EVERY 7 YRS-US E SMARTSET# [id number] TO ORDER 10/30/2020 10/30/2013, 10/30/2013, 08/24/2009, Additional history exists PNEUMOCOCCAL ADULT 65 YRS AND OVER Completed 2014, 03/12/2002 as of this encounter Implants Not on fileas of this encounter Visit Diagnoses Diagnosis Spinal stenosis of lumbar re gion with neurogenic claudication - Primary Spinal stenosis, lumbar region, with neurogenic claudication in this encounter
--- OUTSIDE RECORDS SUMMARY | 2023-01-22 23:02 | External Medical Summary | Summary of Care ---
Author Name Unknown Organization [place] [address] Care Team Providers Care Semiconductor Wafers Etcher Stripper Name Role Phone Bj Mario Primary Care Provider [phone] Reason for Visit * Reason Comments eRx-Medication Refill Encounter Details Date Type Department Care Team Description 04/16/2018 Refill Family Practice [facility] [address] [facility] [place] [address] Milad Torres DO [address] [place] [address] [phone] Allergies No Known Allergiesas of this encounter [...] metoprolol succinate XL (TOPROL XL) 25 MG [id number]:Chronic ischemic heart disease Take 0.5 Tabs by mouth daily. 31 Tab 5 09/07/2016 Active lisinopril (PRINIVIL) 10 MG TabletIndications:Benig n [...] hours as needed for Pain. 0 Active traMADol (ULTRAM) 50 MG TabletIndications:Displ acement [...] mid RCA at [facility] Carotid stenosis, non-symptomatic 2014 Raynaud phenomenon 06/13/2011 Knee joint replacement status 01/13/2011 Overview: 2013, right Dr Ricardo [facility] [...] encounter Miscellaneous Notes * Telephone Encounter - Corrie Florez LPN - 04/16/2018 1:08 PM EST Refused Prescriptions: Disp Refills MethylPREDNISolone (MEDROL DOSEPACK) 4 MG *21 Tab 0 Sig: take as directed on packRefused By: CORRIE FLOREZ for Refusal: Other (comment below)Reason for Refusal Comment: pt needs to call office for refill in this encounter Plan of Treatment Upcoming Encounters Date Type Specialty Care Team Description 08/15/2018 Office Visit Cardiology Yvon Harris PA-C [address] [facility] [place] [address] [phone] 09/14/2018 Office Visit Family Medicine Bj [facility] [address] [facility] [address] [phone] Health Maintenance Due Date Last Done Comments DTaP,Tdap,and Td Vaccines (1 - Tdap) 04/22/2012 04/21/2012, 04/28/2008 CKD PHOS USE SMARTSET 49118 01/09/201812/21, 04/11/2016, 09/22/2014 CKD GFR USE SMARTSET 45921 09/06/201803/08, 02/14/2018, 10/02/2017, Additional history exists CKD HGB USE SMARTSET 59630 02/14/201902/14, 07/25/2016, 04/11/2016, Additional history exists CKD URINE PROTEIN/CREATININE RATION OR URINE MICROALBUMIN YEARLY USE SMARTSET 68075 03/14/2019 03/14/2018, 01/09/2017, 04/11/2016, Additional history exists [...] Implants Not on fileas of this encounter Advance Directives Patient has advance care planning documents on file. For more information, please contact: [place] [phone]
--- OUTSIDE RECORDS SUMMARY | 2023-01-22 23:02 | External Medical Summary | Summary of Care ---
Author Name Unknown Organization [place] [address] Phone Care Team Providers Care Abrasive Grader Name Role Phone AntioneBj barron Primary Care Provider [phone] Reason for Visit * Reason Comments FOLLOW UP 6 month return Encounter Details Date Type Department Care Team Description 02/14/2018 Office Visit Cardiology, [facility] [address] [place] [address] Yvon Harris PA-C [address] [facility] [place] [address] [phone] Chronic ischemic heart disease*;Dyslipidemia, goal LDL below 70;Asymptomatic bilateral carotid artery stenosis;Benign hypertension with CKD (chronic kidney disease) stage III;HTN, goal below 140/90;S/P angioplasty with stent Allergies No Known Allergiesas of this encounter [...] metoprolol succinate XL (TOPROL XL) 25 MG [id number]:Director Of Sustainability Programs jose 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 31 Tab 5 09/07/2016 Active rOPINIRole (REQUIP) 0.25 MG TabletIndications:Re stless legs syndrome Take 1 Tab by mouth at bedtime. 30 Tab 5 09/06/2017 Active lisinopril (PRINIVIL) 10 MG TabletIndications:Be nign hypertension with CKD (chronic kidney disease) stage III,Edema Take 1 Tab by mouth daily. 30 Tab 5 10/05/2017 Active nitroglycerin (NITROSTAT) 0.4 MG SUBLIndications:Director Of Sustainability Programs jose alberto ischemic heart disease 1 every [...] for Pain. 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 In the morning 31 Tab 5 08/14/2017 8 Discontinued as of this encounter Active [...] vein thrombosis of right lower extrem ity ([facility]) 03/05/2014 09/08/2016 Overview: Occurred after the right knee replacement Right leg DVT ([facility]) 03/05/2014 09/08/2016 Warfarin anticoagulation 03/05/2014 015 History [...] Vital Sign Reading Time Taken Blood Pressure 140/80 02/14/2018 9:00 AM EDT Pulse 56 02/14/2018 9:00 AM EDT Temperature - - Respiratory Rate 16 02/14/2018 9:00 AM EDT Oxygen Saturation - - Inhaled Oxygen Concentration - - Weight 83.1 kg (183 lb 1.9 oz) 02/15/20 18 9:00 AM EDT Height - - Body Mass Index 31.42 02/14/2018 9:00 AM EDT in this encounter Progress Notes * Yvon Harris PA-C - 02/14/2018 8:04 PM EDT Lipids look great. CBC normal Abnormal metabolic panel may reflect fasting status, mild volume depletion. Increase intake of water. Check follow-up basic metabolic panel in two weeks * Yvon Harris PA-C - 02/14/2018 9:12 AM EDT Formatting of this note may be different from the original. History of Present Illness: Eugenia Hu is an 83-year-old female here today for routine cardiology follow-up. No exertional chest pain. Chronic stable chest heaviness when first relaxing/retiring for the night, unchanged for years, not requiring any medication. No sublingual nitroglycerin use. No tachypalpitations. Stable shortness of breath when walking up the cellar steps and/or walking across the street. No orthopnea or PND. No lightheadedness, dizziness, near syncope, or true syncope. No fevers or chills. No epistaxis, hemoptysis, melena, hematochezia, or hematuria. Weight is down,eating less, not eating after supper. Lone complaint is that of chronic lower back pain. Notes someimprovement following chiropractic manipulation by Dr. Hall. She did not experience any improvementfollowing the first steroid injection by Dr. Berg though she has noticed some improvement after the second injection which was done two days ago. She takes Tramadol as needed for back pain, none needed yet this week. She does not take Tylenol as it upsets her stomach History includes chest pain and abnormal adenosine [...] systolic function, EF 55%. Patient hospitalized at [facility] in June 2012 at which time [...] TTE was interpreted by Dr. Kidd at [facility] on September 02, 2016 as demonstrating [...] CKD (chronic kidney disease) stage III I12.9, N18.3 Past Medical History: Diagnosis Date [...] MD at ENDOSCOPY [facility] COLONOSCOPY, GI REFERRAL OP 03/22/2005 diverticulosis, repeat [...] INJECTION SPINE LUMBAR OR SACRAL performed by [facility], DO at OR [facility] INJECT DX/THER SUBSTANCE INTERLAMINAR LUMBAR/SACRAL W IMAGE GUIDE 02/12/2018 INJECTION SPINE LUMBAR OR SACRAL performed by [facility], DO at OR [facility] MAMMOGRAM - BILATERAL 2.1.02 negative finding. birad [...] one ovary left in, Dr Chakraborty in [facility] REMOVE CATARACT, INSERT LENS PROSTH Right 01/05/[address] Messi Simon REMOVE CATARACT, INSERT LENS PROSTH Left 01/28/[address] Messi Simon STENT, COATED/COVERED, WITH DELIVERY SYSTEM 06/30/2009 [employer] [facility] Eluding Stent [facility] TOTAL HIP REPLACEMENT & PROSTHESIS 1992 left, Dr Ricardo TOTAL HIP REPLACEMENT & PROSTHESIS 10/2000 right , Dr Ricardo at [facility] Family History Problem Relation Age of Onset Cancer Mother cancer of bone Lung Disorder Father old age with heart failure Heart Disorder Brother [place] at age 62 Heart Disorder Brother angina Social History Social History Marital status: Spouse name: Silverio Number of children: 3 Years of education: N/A Occupational History retired, [employer] Social History Main Topics Smoking status: Never Smoker Smokeless tobacco: Never Used Alcohol use Yes Comment: occ Drug use: No Sexual activity: Yes Partners: Male Other Topics Concern Service No Blood Transfusions No Social History Narrative born [place] in [facility] since 1953 ; 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 Complete Review of Systems: See above. Otherwise negative or noncontributory. Review of patient's allergies indicates: No Known Allergies Outpatient Prescriptions Marked as Taking for the 02/14/18 encounter (Office Visit) with Yvon Harris PA-C Medication Sig traMADol (ULTRAM) 50 MG Tablet take 1 tablet by mouth every 6 hours if needed rosuvastatin (CRESTOR) 20 MG Tablet take 1 tablet by mouth once daily lisinopril (PRINIVIL) 10 MG Tablet Take 1 Tab by mouth daily. rOPINIRole (REQUIP) 0.25 MG Tablet Take 1 Tab by mouth at bedtime. metoprolol succinate XL (TOPROL XL) 25 MG TB24 Take 0.5 Tabs by mouth daily. TRAVATAN Z 0.004 % ophthalmic solution Instill 1 Drop into both eyes every evening. VITAMIN D 1000 UNIT PO CAPS 1 capsule daily ASPIRIN 81 MG PO CHEW One pill by mouth once a day with food OBJECTIVE/PHYSICAL EXAMINATION: BP 140/80 | Pulse 56 | Resp 16 | Wt 183 lbs 1.92 oz (83.063kg) | BMI 31.42 kg/m | BSA 1.94 m | General: NAD. HEENT: Normocephalic. Atraumatic. PER. Conjunctiva pink, sclera clear. Bilateral carotid bruits. No overt JVD. Heart: RRR, 60 bpm. Soft systolic murmur. Lungs: Clear to auscultation. Abdomen: +BS. Soft. Nontender. No masses or organomegaly. Extremities: Minimal distal edema. No clubbing. No cyanosis. Pulses: radial=2/4, posterior tibial=1/4 on the left and nonpalpable on the right. Additional Data: July 2016 Holter (as per Dr. Kidd): Sinus rhythm with an average rate of 75 bpm. PACs - occasional, 227 with 29 couplets and 6 brief runs of atrial tachycardia 3 to 6 beats in duration. PVCs - occasional, 464 with 20 couplets and 1 triplet. No sustained atrial or ventricular arrhythmias were observed no pauses or bradyarrhythmias. Symptoms - none reported. November 2016 Carotid Duplex: Less than 50% [...] Prior described VSD not visible on current study ASSESSMENT: 1. Stable ASCVD. 2. Carotid disease without infarction 3. Hypertension 4. Hyperlipidemia 5. Chronic back pain, as above. RECOMMENDATIONS/PLAN: 1. Fasting laboratory work today. 2. Continue current cardiac medications as prescribed, pending #1. 3. Carotid duplex due next in November 2018 4. Cardiology follow-up in 6 months or as needed. 5. ER with emergencies Yvon Harris PA-C Department of Cardiology in this encounter Nursing Notes * Carmen Srinivasan RN - 02/14/2018 8:59 AM EDT Examination Room: 2 Name: Eugenia Hu Date of : (1935). Reason for Visit: 4 month return Interim Hospitalization(s): Denied Problems/Concerns: No cardiac problems voiced Chest Pain/SOB: Denied [facility] is a way you can talk to your provider online through e-mail. Would you like to sign up? I can activate it for you? IN PROCESS in this encounter Plan of Treatment Upcoming Encounters Date Type Specialty Care Team Description 03/14/2018 Office Visit Family Medicine Bj Mario DO [address] [facility], [place] [address] [phone] 03/14/2018 Office Visit Pain Management Otis Paul Nascimento DO [address] [place] [address] [phone] 08/15/2018 Office Visit Cardiology Yvon Harris PA-C [address] [place] [address] [phone] Health Maintenance Due Date Last Done Comments Zoster Vaccines HMT (2 of 3) 08/06/2008 06/11/2008 DTaP,Tdap,and Td Vaccines (1 - Tdap) 04/22/2012 04/21/2012, 04/28/2008 Influenza Vaccine (FLU shot) (#1) 2017 03/23/2017, 04/11/2016, 04/06/2015, Additional history exists CKD PHOS USE SMARTSET 35280 01/09/201812/21, 04/11/2016, 09/22/2014 CKD URINE PROTEIN/CREATININE RATION OR URINE MICROALBUMIN YEARLY USE SMARTSET 09545 01/09/2018 01/09/2017, 04/11/2016, 12/03/2013 *LDL AFTER STARTING A STATIN 02/02/2018 CKD GFR USE SMARTSET 63904 08/14/201802/14, 10/02/2017, 01/09/2017, Additional history exists CKD HGB USE SMARTSET 10866 02/14/201902/14, 07/25/2016, 04/11/2016, Additional history exists DXA-SCREENING EVERY 7 YRS-US E SMARTSET# 3348 TO ORDER 10/30/2020 10/30/2013, 10/30/2013, 08/24/2009, Additional history exists DIABETES SCREEN EVERY 3 YRS- AGE 45 AND ABOVE 02/14/2021 02/14/2018, 10/02/2017, 01/09/2017, Additional history exists PNEUMOCOCCAL ADULT 65 YRS AND OVER Completed 2014, 03/12/2002 as of this encounter Implants Not on fileas of this encounter Results * COMPR METAB PANEL (02/14/2018 9:47 AM) Component Value Ref Range BUN 33(H) 6 - 20 mg/dL CREATININE 1.3(H) Comment: GFR should be used to assess renal function.Plasma/Serum creatinine may not be able to properly reflect renal function in some cases. 0.5 - 1.0 mg/dL E GLOM FILT RATE 39.0(L)Comment:If [place] is , multiply estimated GFR by 1.159. >60 SODIUM 143 135 - 146 mmol/L POTASSIUM 4.9 3.5 - 5.1 mmol/L CHLORIDE 105 98 - 107 mmol/L CO2 25 22 - 32 mmol/L ANION GAP 13 7 - 15 mmol/L GLUCOSE 113 70 - 120 mg/dL ALBUMIN 3.8 3.8 - 5.0 g/dL AST 24 10 - 35 U/L ALKALINE PHOSPHATASE 112 0 - 153 U/L BILIRUBIN, TOTAL 0.2 0 - 1.2 mg/dL CALCIUM 10.5(H) 8.4 - 10.2 mg/dL PROTEIN 7.5 6.0 - 8.3 g/dL ALT 8(L) 10 - 35 U/L Specimen Performing Laborator y [facility] [address] [facility] [place] [address] * CBC (02/14/2018 9:47 AM) Component Value Ref Range WBC 10.55 4.00 - 10.80 K/u L RBC 4.26 3.85 - 5.15 M/uL HGB 12.8 12.0 - 15.3 g/dL HCT 38.7 36.0 - 45.2 % MCV 90.8 81.5 - 97.5 fL MCH 30.0 27.0 - 34.0 pg MCHC 33.1 32.0 - 36.0 g/dL RDW 12.9 11.5 - 15.5 % PLATELET COUNT 393 140 - 400 K/uL MPV 9.4 6.6 - 11.1 fL Specimen Performing Laborator [facility] LT PHLEB ROOM [facility] [address] [facility] [place] [address] * LIPID PANEL WITH DIRECT LDL IF TG ABOVE 400 MG/DL (02/14/2018 9:47 AM) Component Value Ref Range HOURS FASTING 12 hours TRIGLYCERIDES 82 Comment: TRIGLYCERIDE REFERENCE RANGES (mg/dL) <150 NORMAL 150-199BORDERLINE HIGH 200-499HIGH >499 VERY HIGH <200 mg/dL CHOLESTEROL 129 Comment: TOTAL CHOLESTEROL REFERENCE RANGES(mg/dL) <200 DESIRABLE 200-239BORDERLINE HIGH >239 HIGH <200 mg/dL HDL 58 Comment: HDL CHOLESTEROL REFERENCE RANGES(mg/dL) <40LOW(UNDESIRABLE) >59HIGH(DESIRABLE) >39 mg/dL CHOL/HDL RATIO 2.2 LDL (CALCULATED) 55 Comment: LDL CHOLESTEROL REFERENCE RANGES(mg/dL) <100 OPTIMAL GOAL FOR HIGH RISK PATIENTS 100-129NEAR OR ABOVE NORMAL 130-159BORDERLINE HIGH 160-189HIGH >189 VERY HIGH 0 - 129 mg/dL LDL DIRECT(REFLEX) NOT APPLICABLE 0 - 129 mg/dL Specimen Performing Laborator y [facility] [address] [place] [place] [address] in this encounter Visit Diagnoses Diagnosis Chronic ischemic heart disea se - Primary Chronic ischemic heart disease, unspecified Dyslipidemia, goal LDL below 70 Other and unspecified hyperlipidemia Asymptomatic bilateral carot id artery stenosis 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
--- OUTSIDE RECORDS SUMMARY | 2023-01-22 23:02 | External Medical Summary | Summary of Care ---
Author Name Unknown Organization [place] [address] Phone Care Team Providers Care Entertainment Musician Name Role Phone Nhi Florian DO Primary Care Provider Reason for Visit * Reason Comments eRx-Medication Refill Encounter Details Date Type Department Care Team Description 03/04/2018 Refill Family Practice [facility] [address] [place] [address] Nhi Florian DO [address] [place] [address] [phone] Restless legs syndrome Allergies No Known Allergiesas of this encounter [...] metoprolol succinate XL (TOPROL XL) 25 MG [id number]:Oncology Coordinator jose 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 31 Tab 5 09/07/2016 Active lisinopril (PRINIVIL) 10 MG TabletIndications:Be nign hypertension with CKD (chronic kidney disease) stage III (HCC),Edema Take 1 Tab by mouth daily. 30 Tab 5 10/05/2017 Active nitroglycerin (NITROSTAT) 0.4 MG SUBLIndications:Oncology Coordinator jose alberto ischemic heart disease 1 [...] 1 12/20/2017 Active rOPINIRole (REQUIP) 0.25 MG TabletIndications:Re stless legs syndrome take 1 tablet by mouth at bedtime 30 Tab 5 03/05/2018 Active rOPINIRole (REQUIP) 0.25 MG TabletIndications:Re stless legs syndrome Take 1 Tab by mouth at bedtime. 30 Tab 5 09/06/2017 8 Discontinued as of this encounter Active Problems Problem Noted Date Benign hypertension with CKD (chronic ki dney disease) stage III (HCC) 09/06/2017 History of deep vein thrombosis (DVT) of lower extremity 09/08/2016 Status post insertion of drug eluting co ronary artery stent 04/07/2015 Overview: 2009, DUS placed in the mid RCA at [facility] Carotid stenosis, non-symptomatic 2014 Raynaud phenomenon 06/13/2011 Knee joint replacement status 01/13/2011 Overview: 2013, right Dr Ricardo [facility] 2011: left Dr Priya Ricardo [facility] Dyslipidemia, goal LDL below 70 09/21/19 11 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 neurogenic claudication 02/17/2010 Vitamin D deficiency 10/13/2009 Chronic ischemic heart disease 0 S/P angioplasty with stent 06/30/2009 Overview: 07/01/2009 DUS in the RCA at [facility] Non-toxic multinodular goiter 04/21/2009 Overview: seen [...] the right knee replacement Right leg DVT ([facility]) 03/05/2014 09/08/2016 Warfarin anticoagulation 03/05/2014 015 History [...] Telephone Encounter - Nhi Florian DO - 03/05/2018 3:49 PM EDT Signed Prescriptions: Disp Refills rOPINIRole (REQUIP) 0.25 MG Tablet 30 Tab 5 Sig: take 1 tablet by mouth at bedtime Authorizing Provider: NHI FLORIAN * Telephone Encounter - Yady Mathis LPN - 03/05/2018 2:13 PM EDT Pending Prescriptions: Disp Refills rOPINIRole (REQUIP) 0.25 MG Tablet [Pharm*30 Tab 5 Sig: take 1 tablet by mouth at bedtime * Telephone Encounter - Yady Mathis LPN - 03/05/2018 2:13 PM EDT Formatting of this note may be different from the original. Pending Prescriptions: Disp Refills rOPINIRole (REQUIP) 0.25 MG Tablet [Pharm*30 Tab 5 Sig: take 1 tablet by mouth at bedtime Last Office Visit: 12/20/2017 Next Office Visit: 03/14/2018 Scheduled Provider(s): Nhi Florian DO If no future appointments scheduled, and last appointment is greater than a year ago, please schedule patient for a follow-up appointment Last date the medication was ordered: 09/06/17 Patient Phone Numbers Labs: Lab Results Component Value Date/Time CREAT 1.3 (H) 02/14/2018 09:47 AM POTASSIUM 4.9 02/14/2018 09:47 AM TSH 3.36 10/02/2017 01:29 PM LDLCALC 55 02/14/2018 09:47 AM LDLDIRECT 92 06/13/2011 10:52 AM ALT 8 (L) 02/14/2018 09:47 AM in this encounter Plan of Treatment Upcoming Encounters Date Type Specialty Care Team Description 03/14/2018 Office Visit Family Medicine Nhi Florian, DO [address] [place] [address] [phone] 03/14/2018 Office Visit Pain Management Paul Berg DO [address] [place] [address] [phone] 08/15/2018 Office Visit Cardiology Yvon Harris PA-C [address] [place] [address] [phone] Health Maintenance Due Date Last Done Comments DTaP,Tdap,and Td Vaccines (1 - Tdap) 04/22/2012 04/21/2012, 04/28/2008 Influenza Vaccine (FLU shot) (#1) 2017 03/23/2017, 04/11/2016, 04/06/2015, Additional history exists CKD PHOS USE SMARTSET 62238 01/09/2018/05/2016, 04/11/2016, 09/22/2014 CKD URINE PROTEIN/CREATININE RATION OR URINE MICROALBUMIN YEARLY USE SMARTSET 50494 01/09/2018 01/09/2017, 04/11/2016, 12/03/2013 CKD GFR USE SMARTSET 41922 08/14/201802/14, 10/02/2017, 01/09/2017, Additional history exists CKD HGB USE SMARTSET 66809 02/14/201902/14, 07/25/2016, 04/11/2016, Additional history exists DXA-SCREENING EVERY 7 YRS-US E SMARTSET# 3348 TO ORDER 10/30/2020 10/30/2013, 10/30/2013, 08/24/2009, Additional history exists DIABETES SCREEN EVERY 3 YRS- AGE 45 AND ABOVE 02/14/2021 02/14/2018, 10/02/2017, 01/09/2017, Additional history exists PNEUMOCOCCAL ADULT 65 YRS AND OVER Completed 2014, 03/12/2002 as of this encounter Implants Not on fileas of this encounter Visit Diagnoses Diagnosis Restless legs syndrome Restless legs syndrome (RLS) in this encounter
--- OUTSIDE RECORDS SUMMARY | 2023-01-22 23:02 | External Medical Summary ---
Author Name Unknown Address [address] [facility] [place] [address] Phone Organization K0G:[facility] [address] [place] [address] Laboratory Report Ordering Provider Test Date Status SRINI RUCKER 02/14/2018 09:47:00 Final Observation Date Value Abnormality Reference Status WBC, Total 02/14/2018 10:01 10.55 4.00-10.80 F inal RBC 02/14/2018 10:01 4.26 3.85-5.15 Fin al Hemoglobin 02/14/2018 10:01 12.8 12.0-15.3 Fi nal HCT 02/14/2018 10:01 38.7 36.0-45.2 Fin al MCV 02/14/2018 10:01 90.8 81.5-97.5 Fin al MCH 02/14/2018 10:01 30.0 27.0-34.0 Fin al MCHC 02/14/2018 10:01 33.1 32.0-36.0 Fin al RDW 02/14/2018 10:01 12.9 11.5-15.5 Fin al Platelets 02/14/2018 10:01 393 140-400 Fin al MPV 02/14/2018 10:01 9.4 6.6-11.1 Fin al Performing Location [facility] [address] [place] [address]
--- OUTSIDE RECORDS SUMMARY | 2023-01-22 23:02 | External Medical Summary | Summary of Care ---
Author Name Unknown Organization [place] [address] Phone Care Team Providers Care Video Editing Intern Name Role Phone AntioneBj barron Primary Care Provider [phone] Reason for Visit * Reason Comments TEST RESULTS Encounter Details Date Type Department Care Team Description 02/15/2018 Telephone Cardiology, [facility] [address] [place] [address] Carmen Srinivasan RN [address] [facility] [id number] TEST RESULTS Allergies No Known Allergiesas of this encounter [...] metoprolol succinate XL (TOPROL XL) 25 MG [id number]:Chronic ischemic heart disease Take 0.5 Tabs by mouth daily. 31 Tab 5 09/07/2016 Active rOPINIRole (REQUIP) 0.25 MG TabletIndications:Restl ess legs syndrome Take 1 Tab by mouth at bedtime. 30 Tab 5 09/06/2017 Active lisinopril (PRINIVIL) 10 MG TabletIndications:Rick nigel hypertension with CKD (chronic kidney disease) stage [...] DUS placed in the mid RCA at [facility] Carotid stenosis, non-symptomatic 2014 Raynaud phenomenon 06/13/2011 Knee joint replacement status 01/13/2011 Overview: 2013, right Dr Ricardo [facility] 2011: left Dr Priya Ricardo [facility] Dyslipidemia, goal LDL below 70 09/21/19 11 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 neurogenic claudication 02/17/2010 Vitamin D deficiency 10/13/2009 Chronic ischemic heart disease 0 S/P angioplasty with stent 06/30/2009 Overview: 07/01/2009 DUS in the RCA at [facility] Non-toxic multinodular goiter 04/21/2009 Overview: [...] encounter Miscellaneous Notes * Telephone Encounter - Senia Garcia LPN - 02/16/2018 9:10 AM EDT Patient aware and verbalized understanding, will comply * Telephone Encounter - Mya Jin ALESHA - 02/16/2018 9:07 AM EDT Reason for patient's call: test result explanation Caller was transferred to [facility] at the dedicated phone nurse line. * Telephone Encounter - Carmen Srinivasan RN - 02/15/2018 3:39 PM EDT Call placed to patient home. No answer at this time, did leave message on machine. Requested returncall to [phone] to discuss below information. Order placed for BMP in 2 weeks See result information below and advise or transfer to triage upon return call. * Telephone Encounter - Carmen Srinivasan RN - 02/15/2018 3:38 PM EDT ----- Message from Yvon Harris PA-C sent at 02/14/2018 8:04 PM EDT ----- Lipids look great. CBC normal Abnormal metabolic panel may reflect fasting status, mild volume depletion. Increase intake of water. Check follow-up basic metabolic panel in two weeks in this encounter Plan of Treatment Upcoming Encounters Date Type Specialty Care Team Description 03/14/2018 Office Visit Family Medicine Bj Mario, DO [address] [place] [facility] [place] [address] [phone] 03/14/2018 Office Visit Pain Management Paul Berg, DO [address] [place] [address] [phone] 08/15/2018 Office Visit Cardiology Yvon Harris PA-C [address] [place] [address] [phone] Scheduled Tests Name Priority Associated Diagnoses Order S chedule BASIC METAB PANEL, BMP Routine Benign hypertension with CKD (chronic kidney disease) stage III Expected: 03/01/2018 (Approximate), Expires: 03/17/2019 Health Maintenance Due Date Last Done Comments Zoster Vaccines HMT (2 of 3) 08/06/2008 06/11/2008 DTaP,Tdap,and Td Vaccines (1 - Tdap) 04/22/2012 04/21/2012, 04/28/2008 Influenza Vaccine (FLU shot) (#1) 2017 03/23/2017, 04/11/2016, 04/06/2015, Additional history exists CKD PHOS USE SMARTSET 55820 01/09/2018/05/2016, 04/11/2016, 09/22/2014 CKD URINE PROTEIN/CREATININE RATION OR URINE MICROALBUMIN YEARLY USE SMARTSET 66880 01/09/2018 01/09/2017, 04/11/2016, 12/03/2013 *LDL AFTER STARTING A STATIN 02/02/2018 CKD GFR USE SMARTSET 72644 08/14/201802/14, 10/02/2017, 01/09/2017, Additional history exists CKD HGB USE SMARTSET 58498 02/14/201902/14, 07/25/2016, 04/11/2016, Additional history exists DXA-SCREENING EVERY 7 YRS-US E SMARTSET# 3348 TO ORDER 10/30/2020 10/30/2013, 10/30/2013, 08/24/2009, Additional history exists DIABETES SCREEN EVERY 3 YRS- AGE 45 AND ABOVE 02/14/2021 02/14/2018, 10/02/2017, 01/09/2017, Additional history exists PNEUMOCOCCAL ADULT 65 YRS AND OVER Completed 2014, 03/12/2002 as of this encounter Implants Not on fileas of this encounter Visit Diagnoses Diagnosis Benign hypertension with CKD (chronic kidney disease) stage III - Primary Benign hypertensive kidney disease with chronic kidney disease stage I through stage IV, or unspecified in this encounter
--- OUTSIDE RECORDS SUMMARY | 2023-01-22 23:02 | External Medical Summary | Summary of Care ---
Author Name Unknown Organization [place] [address] Care Team Providers Care Coding Support Specialist Name Role Phone Leroy Floriane Vin LINARES Primary Care Provider [phone] Reason for Visit * Reason Comments eRx-Medication Refill Encounter Details Date Type Department Care Team Description 04/27/2018 Refill Family Practice [facility] [address] [place] [address] Cassidy Florian DO [address] [place] [address] Prophylactic antibiotic; History of bilateral hip replacements; Hip joint replacement status; Status post total bilateral knee replacement Allergies No Known Allergiesas of this encounter [...] both eyes every evening. 0 07/29/2014 Active metoprolol succinate XL (TOPROL XL) 25 MG [id number]:Golf Course Designer jose 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 31 Tab 5 09/07/2016 Active lisinopril (PRINIVIL) 10 MG TabletIndications:Be nign hypertension with CKD (chronic kidney disease) stage III (HCC),Edema Take 1 Tab by mouth daily. 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 4 Cap 6 04/27/2018 Active amoxicillin (AMOXIL) 500 MG CapsuleIndications:P rophylactic antibiotic,History of bilateral hip replacements,Hip joint replacement status,Status post total bilateral knee replacement take 4 capsules by mouth 1 hour PRIOR TO PROCEDURE 4 Cap 6 07/09/2015 8 Discontinued as of this encounter Active Problems Problem Noted Date Benign hypertension with CKD (chronic ki dney disease) stage III 09/06/2017 History of deep vein thrombosis (DVT) of lower extremity 09/08/2016 Status post insertion of drug eluting co ronary artery stent 04/07/2015 Overview: 2009, DUS placed in the mid RCA at [facility] Carotid stenosis, non-symptomatic 2014 Raynaud phenomenon 06/13/2011 Knee joint replacement status 01/13/2011 Overview: 2013, right Dr Ricardo [facility] [...] Telephone Encounter - Nhi Florian DO - 04/27/2018 1:11 PM EST Signed Prescriptions: Disp Refills amoxicillin (AMOXIL) 500 MG Capsule 4 Cap 6 Sig: TAKE 4 CAPSULES BY MOUTH 1 HOUR PRIOR TO PROCEDURE. Authorizing Provider: NHI FLORIAN * Telephone Encounter - Laquita Masters LPN - 04/27/2018 10:22 AM EST Pending Prescriptions: Disp Refills amoxicillin (AMOXIL) 500 MG Capsule [Phar*4 Cap 6 Sig: TAKE 4 CAPSULES BY MOUTH 1 HOUR PRIOR TO PROCEDURE. * Telephone Encounter - Laquita Masters LPN - 04/27/2018 10:22 AM EST Pending Prescriptions: Disp Refills amoxicillin (AMOXIL) 500 MG Capsule [Phar*4 Cap 6 Sig: TAKE 4 CAPSULES BY MOUTH 1 HOUR PRIOR TO PROCEDURE. Last Office Visit: 03/14/2018 Next Office Visit: 09/14/2018 Scheduled Provider(s): Nhi Florian DO Last date the medication was ordered: 07/09/15 Patient Active Problem List Diagnosis Code Advance [...] with CKD (chronic kidney disease) stage III ([facility]) I12.9, N18.3 Labs: CREATININE(mg/dL) Apollo Dt/Tm [...] Visit Cardiology Yvon Harris PA-C [address] [facility] [place] [address] [phone] 09/14/2018 Office Visit Family Medicine Nhi Florian, DO [address] [place] [address] [phone] Health Maintenance Due Date Last Done Comments DTaP,Tdap,and Td Vaccines (1 - Tdap) 04/22/2012 04/21/2012, 04/28/2008 CKD PHOS USE SMARTSET 51764 01/09/201812/21, 04/11/2016, 09/22/2014 CKD GFR USE SMARTSET 41419 09/06/201803/08, 02/14/2018, 10/02/2017, Additional history exists CKD HGB USE SMARTSET 09624 02/14/201902/14, 07/25/2016, 04/11/2016, Additional history exists CKD URINE PROTEIN/CREATININE RATION OR URINE MICROALBUMIN YEARLY USE SMARTSET 87441 03/14/2019 03/14/2018, 01/09/2017, 04/11/2016, Additional history exists [...] fileas of this encounter Visit Diagnoses Diagnosis Prophylactic antibiotic Encounter for long-term (current) use of antibiotics History of bilateral hip replacements Hip joint replacement by other means Status post total bilateral knee replacement in this encounter Advance Directives Patient has advance care planning documents on file. For more information, please contact: [place] [phone]
--- OUTSIDE RECORDS SUMMARY | 2023-01-22 23:03 | External Medical Summary | Summary of Care ---
Author Name Unknown Organization [place] [address] Phone Care Team Providers Care Residential Collections Name Role Phone AntioneBj barron Primary Care Provider [phone]- [phone] Reason for Visit * Reason Comments FOLLOW UP 2 month return Encounter Details Date Type Department Care Team Description 10/09/2017 Office Visit Cardiology, [facility] [address] [place] [address] Yvon Harris PA-C [address] [facility] [place] [address] [phone] Peripheral edema*;Chronic ischemic heart disease;Dyslipidemia, goal LDL below 70;Asymptomatic bilateral carotid artery stenosis;Kidney disease, chronic, stage III (GFR 30-59 ml/min);HTN, goal below 140/90;S/P angioplasty with stent Allergies [...] metoprolol succinate XL (TOPROL XL) 25 MG [id number]: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 In the morning 31 Tab 5 08/14/2017 Active rOPINIRole (REQUIP) 0.25 MG TabletIndications:Re stless legs syndrome Take 1 Tab by mouth at bedtime. 30 Tab 5 09/06/2017 Active lisinopril (PRINIVIL) 10 MG TabletIndications:Be nign hypertension with CKD (chronic kidney disease) stage III,Edema Take 1 Tab by mouth daily. 30 Tab 5 10/05/2017 Active Ibuprofen (ADVIL) 200 MG Capsule Take 200 mg by mouth every 4 hours as needed for Pain. 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 30 Patch 0 08/09/2017 8 Discontinued as of this encounter Active Problems Problem Noted Date Benign hypertension with CKD (chronic ki dney disease) stage III 09/06/2017 History of deep vein thrombosis (DVT) of lower extremity 09/08/2016 Status post insertion of drug eluting co ronary artery stent 04/07/2015 Overview: 2009, DUS placed in the mid RCA at [facility] Kidney disease, chronic, stage III (GFR 30-59 ml/min) 08/04/2014 Overview: Per CKD protocol #1 Carotid stenosis, non-symptomatic 2014 Raynaud phenomenon 06/13/2011 Knee joint replacement status 01/13/2011 Overview: 2014, right Dr Ricardo [facility] 2011: left Dr Priya Ricardo [facility] Dyslipidemia, goal LDL below 70 09/21/19 11 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 neurogenic claudication 02/17/2010 Vitamin D deficiency 10/13/2009 Chronic ischemic heart disease 0 S/P angioplasty with stent 06/30/2009 Overview: 07/01/2009 DUS in the RCA at [facility] Non-toxic multinodular goiter 04/21/2009 Overview: seen [...] Resolved Date Prophylactic antibiotic 07/09/2015 06/02/19 18 Acute deep vein thrombosis of right lower [...] Conjugate Vacc, 13 Valent (Prevnar) 09/22/2014 Pneumococcal Polyvalent Vacc (Pneumovax) 03/12/2002 Seasonal Influenza, Quadriva lent, No Preserve, 6 Mons & Above, IM 03/23/2017 Seasonal Influenza, Quadriva lent, No Preserve, IM 04/11/2016,04/06/2015 Seasonal Influenza, Trivalen t, with Preserve, 3yr & Above, Split 03/10/2014,04/25/2013,03/20/2012,02/20,02/17/2010,02/04/2009,04/28/20 08,03/30/2007,02/22/2007,03/01/2006,1 ,03/12/2002 TD, Preservative Free 04/21/2012,04/28/2008 Varicella Zoster Vaccine (Adult) 06/11/2008 as of this encounter Social History Tobacco Use Types Packs/Day Years Used Date Never Smoker Smokeless Tobacco: Never Used Alcohol Use Drinks/Week oz/Week Comments Yes occ Sex Assigned at Date Recorded Not on file as of this encounter Last Filed Vital Signs Vital Sign Reading Time Taken Blood Pressure 140/72 10/09/2017 2:58 PM EDT Pulse 68 10/09/2017 2:58 PM EDT Temperature - - Respiratory Rate 16 10/09/2017 2:58 PM EDT Oxygen Saturation - - Inhaled Oxygen Concentration - - Weight 90.2 kg (198 lb 12.8 oz) 018 2:58 PM EDT Height - - Body Mass Index 34.11 10/09/2017 2:58 PM EDT in this encounter Progress Notes * Yvon Harris PA-C - 10/09/2017 3:05 PM EDT Formatting of this note may be different from the original. History of Present Illness: Eugenia Hu is an 82-year-old female who is scheduled today's evaluation due to questions regarding her medications. She specifically wonders if she should have sublingual nitroglycerin on hand and is concerned regarding what dose of lisinopril she should be taking. She had been taking 5 mg of lisinopril per day. When she was evaluated by Dr. Higgins due to peripheral edema her blood pressure was elevated she was advised to take 20 mg of lisinopril per day as her medication list said she was already taking 10 mg/day. She has been taking Advil twice a day for the last two months due to chronic back pain. Seeing Dr. Hall with transient relief. She is alsonot taking Imdur which was prescribed after she presented recently with some chest heaviness that was somewhat reminiscent of her symptoms leading to initial coronary intervention and led to Dobutamine stress echocardiography in August that showed no evidence of pharmacologically induced myocardial ischemia. No chest pain. No palpitations. Stable shortness of breath. No orthopnea or PND. No dizziness, near syncope, or true syncope. No [...] function, EF 55%. Patient hospitalized at [facility] in June 2012 at which time [...] was interpreted by Dr. Kidd at [facility] on September 02, 2016 as demonstrating [...] Raynaud phenomenon I73.00 Carotid stenosis, non-symptomatic I65.29 Kidney disease, chronic, stage III (GFR 30-59 ml/min) N18.3 Status post insertion of drug eluting coronary [...] status 01/13/[address] Priya Ricardo [facility] Knee joint replacement status 12/15/2013 right [facility] Macular degeneration Ugo Simon MD Menopause 1974 Need for prophylactic hormone replacement therapy (postmenopausal) 1974 Non-toxic multinodular goiter 04/2009 seen on US, repeat -10/2009 Other screening mammogram 10/24/03 Birad Code 2 Other specified glaucoma both eyes, Paul Simon MD, drops used, timolol S/P angioplasty with stent 06/30/09 [facility] Status post insertion of drug eluting coronary artery stent 04/07/20152009, DUS placed in the mid RCA at [facility] Vitamin D deficiency 10/13/2009 Past Surgical History: Procedure Laterality Date ARTHROPLASTY KNEE TOTAL Left 01/13/2011 Left, Dr Priya Ricardo [facility] ARTHROPLASTY KNEE TOTAL Right 12/16/13 Right, Dr Priya Ricardo [facility] CARDIAC CATH SCANNED RESULT 06/30/2009 DUS placed in right coronary, [facility] CARPAL TUNNEL SURGERY Bilateral 2014 bilateral COLONOSCOPY 03/22/2006 normal repeat in 2015 COLONOSCOPY, DIAGNOSTIC (RECTUM) 09/01/2016 diverticulosis/COLONOSCOPY FLEXIBLE PROXIMAL DIAGNOSTIC performed by Kaylie Ford MD at ENDOSCOPY [facility] COLONOSCOPY, GI REFERRAL OP 03/22/2005 diverticulosis, repeat in 10 years for surveillance reasons COLORECTAL CANCER SCREEN;W/FLE 1999 normal, Dr Estrella DENTAL SURGERY PROCEDURE NEC 1970 Dental Surgery Procedure tumor benign palate DEXA SCAN/BONE MINERAL AXIAL 07/2002 normal, repeat 2007 DEXA SCAN/BONE MINERAL AXIAL 07/20/2006 normal repeat in 6-8 years EXERCISE ECHO 09/02/2002 normal, Dr Genao MAMMOGRAM - BILATERAL 2.1.02 negative finding. 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 Complete Review of Systems: See above. Otherwise negative or noncontributory. Review of patient's allergies indicates: No Known Allergies Outpatient Prescriptions Marked as Taking for the 10/09/17 encounter (Office Visit) with Yvon Harris PA-C Medication Sig ASPIRIN 81 MG PO CHEW One pill by mouth once a day with food Ibuprofen (ADVIL) 200 MG Capsule Take 200 mg by mouth every 4 hours as needed for Pain. lisinopril (PRINIVIL) 10 MG Tablet Take 1 Tab by mouth daily. metoprolol succinate XL (TOPROL XL) 25 MG TB24 Take 0.5 Tabs by mouth daily. nitroglycerin (NITROSTAT) 0.4 MG SUBL 1 every 5 min as needed with chest pain up to 3 doses in 15 minutes rOPINIRole (REQUIP) 0.25 MG Tablet Take 1 Tab by mouth at bedtime. rosuvastatin (CRESTOR) 20 MG Tablet take 1 tablet by mouth once daily traMADol (ULTRAM) 50 MG Tablet take 1 tablet by mouth every 6 hours if needed TRAVATAN Z 0.004 % ophthalmic solution Instill 1 Drop into both eyes every evening. VITAMIN D 1000 UNIT PO CAPS 1 capsule daily OBJECTIVE/PHYSICAL EXAMINATION: BP 140/72 | Pulse 68 | Resp 16 | Wt 198 lbs 12.8 oz (90.175kg) | BMI 34.11 kg/m | BSA 2.02 m | General: NAD. HEENT: Normocephalic. Atraumatic. PER. Conjunctiva pink, sclera clear. Bilateral carotid bruits. No overt JVD. Heart: RRR, 60 bpm. Soft systolic murmur. Lungs: Clear to auscultation. Abdomen: +BS. Soft. Nontender. No masses or organomegaly. Extremities: 1+ edema. No clubbing. No cyanosis. Pulses: radial=2/4, [...] not visible on current study ASSESSMENT: 1. ASCVD. Stable. 2. Carotid disease without infarction 3. Hypertension 4. Hyperlipidemia 5. Mild bradycardia 6. Chronic back pain. RECOMMENDATIONS/PLAN: 1. Discontinue Advil. Avoid NSAID's 2. Utilize PRN Tylenol or Tramadol 3. Decrease sodium intake 4. Increase water consumption. 5. Patient to call if edema remains after the above at which time low dose diuretic therapy would be prescribed a couple of days per week. 6. Carotid duplex due in November 2018 7. Cardiology follow-up as scheduled or as needed. 8. ER with emergencies Yvon Harris PA-C Department of Cardiology in this encounter Nursing Notes * Carmen Srinivasan RN - 10/09/2017 2:57 PM EDT Examination Room: 2 Name: Eugenia Hu Date of : (1935). Reason for Visit: Has questions about medication Interim Hospitalization(s): Denied Problems/Concerns: Wants to discuss dose of Metoprolol. Is Nitro still needed Chest Pain/SOB: Denied [facility] is a way you can talk to your provider online through e-mail. Would you like to sign up? I can activate it for you? NO in this encounter Plan of Treatment Upcoming Encounters Date Type Specialty Care Team Description 12/20/2017 Office Visit Family Medicine Bj Mario, DO [address] [place] [address] [phone] 02/14/2018 Office Visit Cardiology Yvon Harris PA-C [address] [facility] [place] [address] [phone] 03/14/2018 Office Visit Family Medicine Bj Mario, DO [address] [place] [address] [phone] Health Maintenance Due Date Last Done Comments DTaP,Tdap,and Td Vaccines (1 - Tdap) 04/22/2012 04/21/2012, 04/28/2008 CKD HGB USE SMARTSET 64071 07/25/201707/25, 04/11/2016, 10/12/2015, Additional history exists *LDL AFTER STARTING A STATIN 10/03/2017 CKD PHOS USE SMARTSET 92949 01/09/201812/21, 04/11/2016, 09/22/2014 CKD URINE PROTEIN/CREATININE RATION OR URINE MICROALBUMIN YEARLY USE SMARTSET 12147 01/09/2018 01/09/2017, 04/11/2016, 12/03/2013 CKD GFR USE SMARTSET 14673 04/04/201810/02, 01/09/2017, 07/25/2016, Additional history exists DIABETES SCREEN EVERY 3 YRS- AGE 45 AND ABOVE 10/02/2020 10/02/2017, 01/09/2017, 07/25/2016, Additional history exists DXA-SCREENING EVERY 7 YRS-US E SMARTSET# [id number] TO ORDER 10/30/2020 10/30/2013, 10/30/2013, 08/24/2009, Additional history exists PNEUMOCOCCAL ADULT 65 YRS AND OVER Completed 2014, 03/12/2002 Influenza Vaccine (FLU shot) Completed 06/2016, 04/11/2016, 04/06/2015, Additional history exists as of this encounter Implants Not on fileas of this encounter Visit Diagnoses Diagnosis Peripheral edema - Primary Edema Chronic ischemic heart disea se Chronic ischemic heart disease, unspecified Dyslipidemia, goal LDL below 70 Other and unspecified hyperlipidemia Asymptomatic bilateral carot id artery stenosis Occlusion and stenosis of multiple and bilateral precerebral arteries without mention of cerebral infarction Kidney disease, chronic, sta ge III (GFR 30-59 ml/min) Chronic kidney disease, Stage III (moderate) HTN, goal below 140/90 Unspecified essential hypertension S/P angioplasty with stent Postsurgical percutaneous transluminal coronary angioplasty status in this encounter"
--- OUTSIDE RECORDS SUMMARY | 2023-01-22 23:03 | External Medical Summary | Summary of Care ---
Author Name Unknown Organization [place] [address] Phone Care Team Providers Care Powder Expert Name Role Phone AntioneBj barron Primary Care Provider [phone] [phone] Reason for Visit * Reason Comments eRx-Medication Refill Encounter Details Date Type Department Care Team Description 10/31/2017 Refill Cardiology, [facility] [address] [facility] [place] [address] Chaim Milligan PA-C [address] [facility] [place] [address] [phone] Dyslipidemia, goal LDL below 70* Allergies No Known Allergiesas of this encounter [...] metoprolol succinate XL (TOPROL XL) 25 MG [id number]: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 ischemic heart disease 1 every 5 min as needed with chest pain up to 3 doses in 15 minutes 25 Tab 11 10/09/2017 Active rosuvastatin (CRESTOR) 20 MG TabletIndications:Dy slipidemia, goal LDL below 70 take 1 tablet by mouth once daily 31 Tab 11 10/31/2017 Active rosuvastatin (CRESTOR) 20 MG TabletIndications:Dy slipidemia, goal LDL below 70 take 1 tablet by mouth once daily 31 Tab 5 04/10/2017 8 Discontinued as of this encounter Active Problems Problem Noted Date Benign hypertension with CKD (chronic ki dney disease) stage III 09/06/2017 History of deep vein thrombosis (DVT) of lower extremity 09/08/2016 Status post insertion of drug eluting co ronary artery stent 04/07/2015 Overview: 2009, DUS placed in the mid RCA at [facility] Carotid stenosis, non-symptomatic 2014 Raynaud phenomenon 06/13/2011 Knee joint replacement status 01/13/2011 Overview: 2013, right Dr Ricardo [facility] 2011: left Dr Priya Ricardo [facility] Dyslipidemia, goal LDL below 70 09/21/19 11 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 neurogenic claudication 02/17/2010 Vitamin D deficiency 10/13/2009 Chronic ischemic heart disease 0 S/P angioplasty with stent 06/30/2009 Overview: 07/01/2009 DUS in the RCA at [facility] Non-toxic multinodular goiter 04/21/2009 Overview: [...] Telephone Encounter - Chaim Milligan PA-C - 10/31/2017 12:31 PM EDT Signed Prescriptions: Disp Refills rosuvastatin (CRESTOR) 20 MG Tablet 31 Tab 11 Sig: take 1 tablet by mouth once daily Authorizing Provider: CHAIM MILLIGAN * Telephone Encounter - Richard Bliss LPN - 10/31/2017 11:07 AM EDT Pending Prescriptions: Disp Refills rosuvastatin (CRESTOR) 20 MG Tablet [Phar*31 Tab 11 Sig: take 1 tablet by mouth once daily * Telephone Encounter - Richard Bliss LPN - 10/31/2017 11:06 AM EDT Formatting of this note may be different from the original. Pending Prescriptions: Disp Refills rosuvastatin (CRESTOR) 20 MG Tablet [Phar*31 Tab 11 Sig: take 1 tablet by mouth once daily Last Office Visit: 10/09/2017 Next Office Visit: 02/14/2018 Scheduled Provider(s): Chaim Milligan PA-C Last medication order date: 04/10/17 Have you choosen a preferred pharm?? y Patient Active Problem List Diagnosis Code Advance [...] (chronic kidney disease) stage III I12.9, N18.3 Labs: CREATININE(mg/dL) Apollo Dt/Tm Resulted Value Status 10/02/17 1:29P 10/02/17 1.1* FINAL POTASSIUM(mmol/L) Apollo Dt/Tm Resulted Value Status 10/02/17 1:29P 10/02/17 4.2 FINAL TSH(uIU/mL) Apollo Dt/Tm Resulted Value Status 10/02/17 1:29P 10/02/17 3.36 FINAL LDL (CALCULATED)(mg/dL) Apollo Dt/Tm Resulted Value Status 04/11/16 8:46A 04/11/16 64 FINAL LDL DIRECT(REFLEX)(mg/dL) Apollo Dt/Tm Resulted Value Status 04/11/16 8:46A 04/11/16 FINAL Value: NOT APPLICABLE ALT(U/L) Apollo Dt/Tm Resulted Value Status 04/11/16 8:46A 04/11/16 11 FINAL Hemoglobin AIC Results: No HEMOGLOBIN, A1C components found * Telephone Encounter - Lety Mathiszack Romano LPN - 10/31/2017 10:07 AM EDT Pending Prescriptions: Disp Refills rosuvastatin (CRESTOR) 20 MG Tablet [Phar*31 Tab 11 Sig: take 1 tablet by mouth once daily * Telephone Encounter - Ilyasaumya Kamryn Romano LPN - 10/31/2017 10:06 AM EDT Pending Prescriptions: Disp Refills rosuvastatin (CRESTOR) 20 MG Tablet [Phar*31 Tab11 Sig: take 1 tablet by mouth once daily Last Office Visit: 10/09/2017 Next Office Visit: 02/14/2018 Scheduled Provider(s): Chaim Milligan PA-C in this encounter Plan of Treatment Upcoming Encounters Date Type Specialty Care Team Description 12/20/2017 Office Visit Family Medicine Bj Mario DO [address] [place] [address] [phone] 02/14/2018 Office Visit Cardiology Chaim Milligan PA-C [address] [facility] [place] [address] [phone] 03/14/2018 Office Visit Family Medicine Bj Mario DO [address] [place] [address] [phone] Health Maintenance Due Date Last Done Comments DTaP,Tdap,and Td Vaccines (1 - Tdap) 04/22/2012 04/21/2012, 04/28/2008 CKD HGB USE SMARTSET 56347 07/25/201707/25, 04/11/2016, 10/12/2015, Additional history exists *LDL AFTER STARTING A STATIN 10/03/2017 CKD PHOS USE SMARTSET 42206 01/09/201812/21, 04/11/2016, 09/22/2014 CKD URINE PROTEIN/CREATININE RATION OR URINE MICROALBUMIN YEARLY USE SMARTSET 44363 01/09/2018 01/09/2017, 04/11/2016, 12/03/2013 CKD GFR USE SMARTSET 69900 04/04/201810/02, 01/09/2017, 07/25/2016, Additional history exists DIABETES [...] fileas of this encounter Visit Diagnoses Diagnosis Dyslipidemia, goal LDL below 70 - Primary Other and unspecified hyperlipidemia in this encounter
--- OUTSIDE RECORDS SUMMARY | 2023-01-22 23:03 | External Medical Summary | Summary of Care ---
Author Name Unknown Organization [place] [address] Phone Care Team Providers Care Chip Bin Operator Name Role Phone Bj Mario Primary Care Provider [phone] Encounter Details Date Type Department Care Team Description 10/12/2017 Scan Encounter Unspecified Department <No scans attached> Allergies No Known Allergiesas of this encounter [...] metoprolol succinate XL (TOPROL XL) 25 MG [id number]:Chronic ischemic heart disease Take 0.5 Tabs by mouth daily. 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 [...] for Pain. Active nitroglycerin (NITROSTAT) 0.4 MG SUBLIndications:Chronic ischemic heart disease 1 every 5 min as needed with chest pain up to 3 doses in 15 minutes 25 Tab 11 10/09/2017 Active as of this encounter Active Problems [...] Not on file as of this encounter Plan of Treatment Upcoming Encounters Date Type Specialty Care Team Description 12/20/2017 Office Visit Family Medicine Bj Mario DO [address] [place] [address] [phone] 02/14/2018 Office Visit Cardiology [facility]-C [facility] [place] [address] [phone] 03/14/2018 Office Visit Family Medicine Bj Mario, DO [address] [place] [address] [phone] Health Maintenance Due Date Last Done Comments DTaP,Tdap,and Td Vaccines (1 - Tdap) 04/22/2012 04/21/2012, 04/28/2008 CKD HGB USE SMARTSET 66934 07/25/201707/25, 04/11/2016, 10/12/2015, Additional history exists *LDL AFTER STARTING A STATIN 10/03/2017 CKD PHOS USE SMARTSET 12159 01/09/2018/05/2016, 04/11/2016, 09/22/2014 CKD URINE PROTEIN/CREATININE RATION OR URINE MICROALBUMIN YEARLY USE SMARTSET 21141 01/09/2018 01/09/2017, 04/11/2016, 12/03/2013 CKD GFR USE SMARTSET 93393 04/04/201810/02, 01/09/2017, 07/25/2016, Additional history exists DIABETES [...]
--- OUTSIDE RECORDS SUMMARY | 2023-01-22 23:03 | External Medical Summary | Summary of Care ---
Author Name Unknown Organization [place] [address] Phone Care Team Providers Care Oriental Medicine Practitioner Name Role Phone Bj Mario Primary Care Provider [phone] Encounter Details Date Type Department Care Team Description 01/26/2018 Scan Encounter Unspecified Department <No scans attached> [...] metoprolol succinate XL (TOPROL XL) 25 MG BD05Zkjsejstlxs:Chronic ischemic heart disease Take 0.5 Tabs by mouth daily. 31 Tab 5 09/07/2016 Active isosorbide mononitrate SA (IMDUR) 30 MG [id number]:Chest heaviness Take 1 Tab by mouth daily. In the morning 31 Tab 5 08/14/2017 Active rOPINIRole (REQUIP) 0.25 MG TabletIndications:Restl ess legs syndrome Take 1 Tab by mouth at bedtime. 30 Tab 5 09/06/2017 Active lisinopril (PRINIVIL) 10 MG TabletIndications:Benig n [...] DUS placed in the mid RCA at [facility] Carotid stenosis, non-symptomatic 2014 Raynaud phenomenon 06/13/2011 Knee joint replacement status 01/13/2011 Overview: 2013, right Dr Ricardo [facility] 2011: left Dr Priya Ricardo [facility] Dyslipidemia, goal LDL below 70 09/21/19 11 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 neurogenic claudication 02/17/2010 Vitamin D deficiency 10/13/2009 Chronic ischemic heart disease 0 S/P angioplasty with stent 06/30/2009 Overview: 07/01/2009 DUS in the RCA at [facility] Non-toxic multinodular goiter 04/21/2009 [...] Team Description 02/14/2018 Office Visit Cardiology Yvon Harris PA-C [address] [facility] [place] [address] [phone] 03/14/2018 Office Visit Family Medicine Bj Mario, DO [address] [place] [facility] [place] [address] [phone] Health Maintenance Due Date Last Done Comments Zoster Vaccines HMT (2 of 3) 08/06/2008 06/11/2008 DTaP,Tdap,and Td Vaccines (1 - Tdap) 04/22/2012 04/21/2012, 04/28/2008 CKD HGB USE SMARTSET 76667 07/25/201707/25, 04/11/2016, 10/12/2015, Additional history exists Influenza Vaccine (FLU shot) (#1) 2017 03/23/2017, 04/11/2016, 04/06/2015, Additional history exists CKD PHOS USE SMARTSET 60259 01/09/201812/21, 04/11/2016, 09/22/2014 CKD URINE PROTEIN/CREATININE RATION OR URINE MICROALBUMIN YEARLY USE SMARTSET 69407 01/09/2018 01/09/2017, 04/11/2016, 12/03/2013 CKD GFR USE SMARTSET 76114 04/04/201810/02, 01/09/2017, 07/25/2016, Additional history exists DIABETES [...]
--- OUTSIDE RECORDS SUMMARY | 2023-01-22 23:03 | External Medical Summary | Summary of Care ---
Author Name Unknown Organization [place] [address] Phone Care Team Providers Care Loft Worker Head Name Role Phone Bj Mario Primary Care Provider [phone] Encounter Details Date Type Department Care Team Description 10/27/2017 Scan Encounter Unspecified Department <No scans attached> [...] metoprolol succinate XL (TOPROL XL) 25 MG HD44Aprrsjusvzs:Chronic ischemic heart disease Take 0.5 Tabs by mouth daily. 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 [...] the mid RCA at [facility] Carotid stenosis, non-symptomatic 2014 Raynaud phenomenon [...] Visit Family Medicine Bj Mario, DO [address] [place] [address] [phone] 02/14/2018 Office Visit Cardiology Yvon Harris PA-C [address] [facility] [place] [address] [phone] 03/14/2018 Office Visit Family Medicine Bj Mario, DO [address] [place] [address] [phone] Health Maintenance Due Date Last Done Comments DTaP,Tdap,and Td Vaccines (1 - Tdap) 04/22/2012 04/21/2012, 04/28/2008 CKD HGB USE SMARTSET 51257 07/25/201707/25, 04/11/2016, 10/12/2015, Additional history exists *LDL AFTER STARTING A STATIN 10/03/2017 CKD PHOS USE SMARTSET 19919 01/09/2018/05/2016, 04/11/2016, 09/22/2014 CKD URINE PROTEIN/CREATININE RATION OR URINE MICROALBUMIN YEARLY USE SMARTSET 09164 01/09/2018 01/09/2017, 04/11/2016, 12/03/2013 CKD GFR USE SMARTSET 70588 04/04/201810/02, 01/09/2017, 07/25/2016, Additional history exists DIABETES [...]
--- OUTSIDE RECORDS SUMMARY | 2023-01-22 23:03 | External Medical Summary | Summary of Care ---
Author Name Unknown Organization [place] [address] Phone Care Team Providers Care Human Resources File Clerk Name Role Phone Bj Mario Primary Care Provider [phone] Reason for Visit * Reason Comments ADVICE Encounter Details Date Type Department Care Team Description 10/24/2017 Telephone Cardiology, [facility] [address] [facility] [place] [address] Yvon Harris PA-C [address] [facility] [place] [address] [phone] ADVICE Allergies No Known Allergiesas of this encounter [...] metoprolol succinate XL (TOPROL XL) 25 MG VZ43Jjrbnabbqxa:Chronic ischemic heart disease Take 0.5 Tabs by [...] Active isosorbide mononitrate SA (IMDUR) 30 MG PF65Bwtslkavsty:Chest heaviness Take 1 Tab by mouth daily. [...] mid RCA at [facility] Carotid stenosis, non-symptomatic 2014 Raynaud [...] encounter Miscellaneous Notes * Telephone Encounter - Yvon Harris PA-C - 10/25/2017 4:34 PM EDT I returned the patient 's telephone call. Her peripheral edema has improved but not completely resolved. She is not interested in utilizing low-dose loop diuretic a few days per week at this point. She will let me know if/when things progress. Follow-up as scheduled or as needed. Yvon Harris PA-C Department of Cardiology * Telephone Encounter - Carmen Alonso LPN - 10/25/2017 2:15 PM EDT Pt returned call and feet continue to swell, less in am and worse at night. Has some pitting. Occurs in ankles occ and when it does it is as bad as the feet. No difficult walking but can only walk short distances. Denies cp and sob Will be available for return call * Telephone Encounter - Leidy Nieto, ALESHA - 10/25/2017 2:11 PM EDT Reason for patient's call: return call Caller was transferred to Leidy at the dedicated phone nurse line. * Telephone Encounter - Yvon Harris PA-C - 10/24/2017 12:19 PM EDT I called the patient and left a message for her to return my call. Yvon Harris PA-C Department of Cardiology * Telephone Encounter - Maisha Gates LPN - 10/24/2017 8:[address] Harris told her to call back in 2 weeks. Feet swelling have gone done some. Not completely. It is better than what it was. Denies lower leg edema. Some ankle and some foot edema. Denies shortness of breath. * Telephone Encounter - Carmel Zamudio, ALESHA - 10/24/2017 8:32 AM EDT Reason for patient's call: give update on leg swelling Caller was transferred to Maisha at the dedicated phone nurse line. in this encounter Plan of Treatment Upcoming Encounters Date Type Specialty Care Team Description 12/20/2017 Office Visit Family Medicine Bj Mario, DO [address] [place] [address] [phone] 02/14/2018 Office Visit [facility]C [facility] [place] [address] [phone] 03/14/2018 Office Visit Family Medicine Bj Mario, DO [address] [place] [address] [phone] Health Maintenance Due Date Last Done Comments DTaP,Tdap,and Td Vaccines (1 - Tdap) 04/22/2012 04/21/2012, 04/28/2008 CKD HGB USE SMARTSET 99303 07/25/201707/25, 04/11/2016, 10/12/2015, Additional history exists *LDL AFTER STARTING A STATIN 10/03/2017 CKD PHOS USE SMARTSET 27377 01/09/201812/21, 04/11/2016, 09/22/2014 CKD URINE PROTEIN/CREATININE RATION OR URINE MICROALBUMIN YEARLY USE SMARTSET 17735 01/09/2018 01/09/2017, 04/11/2016, 12/03/2013 CKD GFR USE SMARTSET 66863 04/04/201810/02, 01/09/2017, 07/25/2016, Additional history exists DIABETES [...]
--- OUTSIDE RECORDS SUMMARY | 2023-01-22 23:03 | External Medical Summary | Summary of Care ---
Author Name Unknown Organization [place] [address] Phone Care Team Providers Care Housekeeping Assistant Name Role Phone AntioneBj barron Primary Care Provider [phone] Reason for Visit * Reason Comments BACK PAIN Encounter Details Date Type Department Care Team Description 01/10/2018 Office Visit Interventional Pain Center, [facility] [address] [place] [address] CouPaul gillespieDO [address] [place] [address] [phone] Spinal stenosis of lumbar region with neurogenic [...] metoprolol succinate XL (TOPROL XL) 25 MG EC21Scowvlnheoo:Chronic ischemic heart disease Take 0.5 Tabs by mouth daily. 31 Tab 5 09/07/2016 Active isosorbide mononitrate SA (IMDUR) 30 MG BK41Ydocihmnzfe:Chest heaviness Take 1 Tab by mouth daily. In the morning 31 Tab 5 08/14/2017 Active rOPINIRole (REQUIP) 0.25 MG TabletIndications:Restl ess legs syndrome Take 1 Tab by mouth at bedtime. 30 Tab 5 09/06/2017 Active lisinopril (PRINIVIL) 10 MG TabletIndications:Rick manning [...] the mid RCA at [facility] Carotid stenosis, non-symptomatic 2014 Raynaud phenomenon 06/13/2011 Knee joint replacement status 01/13/2011 Overview: 2013, right Dr Ricardo [facility] 2011: [...] vein thrombosis of right lower extrem ity ([facility]) 03/05/2014 09/08/2016 Overview: Occurred after the right knee replacement Right leg DVT ([facility]) 03/05/2014 09/08/2016 Warfarin anticoagulation 03/05/2014 [...] Vital Sign Reading Time Taken Blood Pressure 160/82 01/10/2018 9:19 AM EDT Pulse - - Temperature - - Respiratory Rate - - Oxygen Saturation - - Inhaled Oxygen Concentration - - Weight - - Height - - Body Mass Index - - in this encounter Progress Notes * Paul Berg DO - 01/10/2018 9:34 AM EDT Formatting of this note may be different from the original. GENERAL HISTORY & PHYSICAL EXAMINATION - Anesthesia and Pain Service Name: Eugenia Hu Location: [facility], [facility] REFERRING PHYSICIAN: Bj Mario DO Thank you for referring Eugenia Hu. CHIEF COMPLAINT: She complains of Low back/leg pain. Most recent vital signs: BP 160/82 HPI: Eugenia Hu is a 82 year old female who presents for consultation at the request of , regarding a 1 year history of persistent pain in the bilateral lower lumbar buttock region. She was also experiencing radiation lower extremities although this did seem to improve somewhatwith recent care assistant by Dr. Hall. Pain is exclusively with standing and ambulation and promptly relieved by sitting. She also gets relief by forward flexion against a shopping cart. She denies bowel or bladder dysfunction or obvious motor weakness. There was no preceding trauma. She has had organized physical therapy within the last several months and did 10 for least 6 weeks. This was in addition to her care assistant. She has not had adequate improvement with the use of nonsteroidal anti-inflammatory agents, Tylenol or tramadol. I did review an MRI of the lumbar spine and she does have rather severe multilevel spinal stenosis. PAST MEDICAL HISTORY: 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 2000, left 1992 HTN, goal below 140/90 Knee joint replacement status 01/13/[address] Priya Ricardo [facility] Knee joint replacement status 12/15/2013 right [facility] Macular degeneration Ugo Simon MD Menopause 1974 Need for prophylactic hormone replacement therapy (postmenopausal) 1974 Non-toxic multinodular goiter 04/2009 seen on US, repeat -10/2009 Other screening mammogram 10/24/03 Birad Code 2 Other specified glaucoma both eyes, Paul Simon MD, drops used, timolol S/P angioplasty with stent 06/30/09 [facility] Status post insertion of drug eluting coronary artery stent 04/07/20152009, DUS placed in the mid RCA at [facility] Vitamin D deficiency 10/13/2009 PAST SURGICAL HISTORY: Past Surgical History: Procedure Laterality Date ARTHROPLASTY KNEE TOTAL Left 01/13/2011 Left, Dr Priya Ricardo [facility] ARTHROPLASTY KNEE TOTAL Right 12/16/13 Right, Dr Priya Ricardo [facility] CARDIAC CATH SCANNED RESULT 06/30/2009 DUS placed in right coronary, [facility] CARPAL TUNNEL SURGERY Bilateral 2015 bilateral COLONOSCOPY 03/22/2006 normal repeat in 2015 COLONOSCOPY, DIAGNOSTIC (RECTUM) 09/01/2016 diverticulosis/COLONOSCOPY FLEXIBLE PROXIMAL DIAGNOSTIC performed by Kaylie Ford MD at ENDOSCOPY [facility] COLONOSCOPY, GI REFERRAL OP 03/22/2005 diverticulosis, repeat [...] finding. birad code 1 MAMMOGRAM - BILATERAL .25.03 negative findings, yearly mammograms appropriate, birad code 1-diffuse scattered calcifications MAMMOGRAM - BILATERAL 04/10/07 birad code 2 MAMMOGRAM SCREENING-BILATERAL 03/02/05 benign findings, yearly mammograms appropriate, birad code 2 MAMMOGRAM SCREENING-BILATERAL ..06 benign findings, yearly mammograms appropriate, birad code 2 MAMMOGRAM SCREENING-BILATERAL 07/03/08 birad code 2 NUCLEAR SCAN OF HEART MUSCLE 05/31/09, 11/23/10 abnormal PARTIAL HYSTERECTOMY 1974 one ovary left in, Dr Chakraborty in [facility] REMOVE CATARACT, INSERT LENS PROSTH Right 01/05/[address] Messi Simon REMOVE CATARACT, INSERT LENS PROSTH Left 01/28/[address] Messi Simon STENT, COATED/COVERED, WITH DELIVERY SYSTEM 06/30/2009 [employer] Drug Eluding Stent [facility] TOTAL HIP REPLACEMENT & PROSTHESIS 1992 left, Dr Ricardo TOTAL HIP REPLACEMENT & PROSTHESIS 10/2000 right , Dr Ricardo at [facility] FAMILY HISTORY: Family History Problem Relation Age of Onset Cancer Mother cancer of bone Lung Disorder Father old age with heart failure Heart Disorder Brother AL at age 62 Heart Disorder Brother angina SOCIAL HISTORY: Social History Substance Use Topics Smoking status: Never Smoker Smokeless tobacco: Never Used Alcohol use Yes Comment: occ CURRENT MEDICATIONS: Note that discontinued and completed medications (per the MAR) continue to display for 24 hours. Ordered medications to be given in the future also display. Current Outpatient Prescriptions Medication Sig Dispense Refill acetaminophen (TYLENOL EXTRA STRENGTH) 500 MG Tablet [...] Tab by mouth daily. 30 Tab 5 rOPINIRole (REQUIP) 0.25 MG Tablet Take 1 Tab by mouth at bedtime. 30 Tab 5 isosorbide mononitrate SA (IMDUR) 30 MG TB24 Take 1 Tab by mouth daily. In the morning 31 Tab 5 metoprolol succinate XL (TOPROL XL) [...] a day with food 100 5 ALLERGIES: Review of patient's allergies indicates no known allergies. ROS: Constitutional: Negative for fatigue, fever, appetite change, unexplained weight loss and insomnia. Eyes: Negative for abnormal vision, dryness, or pain. ENT: Negative for hearing loss, tinnitus, vertigo, dizziness, epistaxis, sore throat or dysphagia. Respiratory: Negative for cough, sputum production, shortness of breath, dyspnea, pleuritic chest pain, hemoptysis. Musculoskeletal:Positive for low back pain Neurological: Negative for headaches, fainting, seizures, memory loss, and paralysis. Psychiatric: Negative for anxiety, depression, hallucinations, suicidal thoughts. Genitourinary: Negative for dysuria, urinary frequency or urgency, and hematuria. Hematologic/ Lymphatic: Negative for easy bleeding, bruising, or lymphadenopathy. Integumentary: Negative for dryness, alopecia, nail changes. Gastrointestinal: Negative for abdominal pain, nausea, vomiting, constipation, diarrhea, cramping, heart burn, or fecal incontinence. Endocrine: Negative for cold or heat intolerance and diaphoresis. Cardiovascular: Negative for chest pain, palpations, ankle swelling, orthopnea. PHYSICAL EXAMINATION: Most Recent Vital Signs: Filed Vitals: 01/10/18 0919 BP: 160/82 General Appearance: Patient appears to be about stated age, pleasant and cooperative with normal affect. HEENT: head normocephalic, pupils equal round and reactive to light and accommodation, EOMI, hearing intact and equal bilaterally and nose clear, throat normal Heart: regular rate and rhythm Lungs: Clear to Auscultation Abdomen: within normal limits and no tenderness, masses or rigidity MS: She can stand and ambulate with a slightly antalgic gait. She has +5/5 motor function lower extremities. There are no gross sensory deficits present. No pain with straight leg raising. She has +1/4 Achilles +2 or 4 patellar reflexes. Has lumbar pain with extension and facet loading bilaterally.She does not have significant sacroiliac joint or trochanteric tenderness. LABS: Labs reviewed as indicated below: Results for orders placed or performed in visit on 10/02/17 BASIC METAB PANEL, BMP Result Value Ref Range BUN 25 (H) 6 - 20 mg/dL CREATININE 1.1 (H) 0.5 - 1.0 mg/dL E GLOM FILT RATE 48.9 (L) >60 SODIUM 142 135 - 146 mmol/L POTASSIUM 4.2 3.5 - 5.1 mmol/L CHLORIDE 106 98 - 107 mmol/L CO2 25 22 - 32 mmol/L ANION GAP 11 7 - 15 mmol/L GLUCOSE 99 70 - 120 mg/dL CALCIUM 9.6 8.4 - 10.2 mg/dL TSH Result Value Ref Range TSH 3.36 0.27 - 4.2 uIU/mL IMAGING: EXAM MRI scan lumbar spine without contrast -09/27/2017 10:40 am HISTORY Low back pain radiating to her L leg, HGAs tried chiropractor and medications with little success COMPARISON MRI lumbar spine 09/29/2009. TECHNIQUE Multiplanar, multisequence MR images of the lumbar spine are acquired without IV contrast using standard protocol. FINDINGS There is qxxzchqh-ee-nndlkx multilevel degenerative disc disease with loss of [...] the review of axial images, At L1-2 kwqu-cz-sxtedici canal narrowing with zbbn-as-hnrairdt bilateral foraminal narrowing At L2-3 youvigmj-fc-fcmqth canal stenosis with moderate bilateral foraminal narrowing At L3-4 pskfdzdc-rr-pelyeq canal stenosis with moderate right and severe left foraminal narrowing. At L4-5 severe canal stenosis with moderate bilateral foraminal narrowing At L5-S1 rguc-xw-ebliraag canal stenosis and at least moderate left foraminal narrowing and smne-fc-ptsnrxia right foraminal narrowing. When compared to the study of 2009, diffuse progression of degenerative disc disease with notable progression of canal stenosis. Impression IMPRESSION 1. Glcnlffm-zi-qmjxxj multilevel degenerative disc disease with multilevel canal and foraminal narrowing as described. 2. When compared to prior study 2009, there significant progression of degenerative disc disease with progression of canal stenosis at multiple levels. IMPRESSION: Eugenia Hu is a 82 year old female who has a history of Severe lumbar spinal stenosis. PLAN: Her symptoms are certainly consistent with underlying spinal stenosis and since she has not adequately improved with extensive conservative treatment over the past year certainly reasonable to consider epidural steroid injection is a non operative option.The procedural risks including, but not limited to, bleeding, infection, headache, nerve or spinal cord injury, worsening pain or steroid side effects, were reviewed and accepted. The "off label" use of corticosteroids for epidural use was alsodiscussed. She would like to proceed with caudal JACKIE as discussed. ASA III Paul Berg DO 01/10/2018 9:34 AM in this encounter Nursing Notes * Lorri Gotti LPN - 01/10/2018 9:17 AM EDT Patient here for low back pain, no leg symptoms MRI in chart Saw and PT at [facility] Worse with walking in this encounter Plan of Treatment Upcoming Encounters Date Type Specialty Care Team Description 01/18/2018 Surgery Surgery Paul Berg, DO [address] [place] [address] [phone] INJECTION SPINE LUMBAR OR SACRAL 01/18/2018 Hospital Encounter Surgery RobbimartinaPaul, DO [address] [place] [address] [phone] 02/14/2018 Office Visit Cardiology Yvon Harris, PATylerC [address] [place] [address] [phone] 03/14/2018 Office Visit Family Medicine Bj Mario, DO [address] [facility] [place] [address] [phone] Scheduled Tests Name Priority Associated Diagnoses Order S chedule INJECT DX/THER SUBSTANCE INTERLAMINAR LUMBAR/SACRAL W IMAGE GUIDE Routine Spinal stenosis of lumbar region with neurogenic claudication Ordered: 01/10/2018 Health Maintenance Due Date Last Done Comments DTaP,Tdap,and Td Vaccines (1 - Tdap) 04/22/2012 04/21/2012, 04/28/2008 CKD HGB USE SMARTSET 86709 07/25/201707/25, 04/11/2016, 10/12/2015, Additional history exists CKD PHOS USE SMARTSET 41824 01/09/201812/21, 04/11/2016, 09/22/2014 CKD URINE PROTEIN/CREATININE RATION OR URINE MICROALBUMIN YEARLY USE SMARTSET 01134 01/09/2018 01/09/2017, 04/11/2016, 12/03/2013 Influenza Vaccine (FLU shot) (#1) 2018 03/23/2017, 04/11/2016, 04/06/2015, Additional history exists CKD GFR USE SMARTSET 41960 04/04/201810/02, 01/09/2017, 07/25/2016, Additional history exists DIABETES [...]
--- OUTSIDE RECORDS SUMMARY | 2023-01-22 23:03 | External Medical Summary | Summary of Care ---
Author Name Unknown Organization [place] [address] Phone Care Team Providers Care Patient Care Associate Name Role Phone Bj Mario Primary Care Provider [phone] Encounter Details Date Type Department Care Team Description 12/29/2017 Scan Encounter Unspecified Department <No scans attached> [...] metoprolol succinate XL (TOPROL XL) 25 MG [id number]:Chronic ischemic heart disease Take 0.5 Tabs by mouth daily. 31 Tab 5 09/07/2016 Active isosorbide mononitrate SA (IMDUR) 30 MG PJ60Qkczbxwbbuf:Chest heaviness Take 1 Tab by mouth daily. [...] RCA at [facility] Carotid stenosis, non-symptomatic 2014 Raynaud phenomenon 06/13/2011 Knee joint replacement status 01/13/2011 Overview: 2013, right Dr Ricardo [facility] [...] Encounters Date Type Specialty Care Team Description 01/10/2018 Office Visit Pain Management Paul Berg, [address] [place] [address] [phone] 02/14/2018 Office Visit Cardiology [facility]von [facility]C [facility] [place] [address] [phone] 03/14/2018 Office Visit Family Medicine Bj Mario, DO [address] [facility] [place] [address] [phone] Health Maintenance Due Date Last Done Comments DTaP,Tdap,and Td Vaccines (1 - Tdap) 04/22/2012 04/21/2012, 04/28/2008 CKD HGB USE SMARTSET 08156 07/25/201707/25, 04/11/2016, 10/12/2015, Additional history exists CKD PHOS USE SMARTSET 40354 01/09/201812/21, 04/11/2016, 09/22/2014 CKD URINE PROTEIN/CREATININE RATION OR URINE MICROALBUMIN YEARLY USE SMARTSET 08745 01/09/2018 01/09/2017, 04/11/2016, 12/03/2013 Influenza Vaccine (FLU shot) (#1) 2018 03/23/2017, 04/11/2016, 04/06/2015, Additional history exists CKD GFR USE SMARTSET 77778 04/04/201810/02, 01/09/2017, 07/25/2016, Additional history exists DIABETES [...]
--- OUTSIDE RECORDS SUMMARY | 2023-01-22 23:03 | External Medical Summary | Summary of Care ---
Author Name Unknown Organization [place] [address] Phone Care Team Providers Care Field Care Advocate Name Role Phone Bj Mario Primary Care Provider Encounter Details Date Type Department Care Team Description 12/11/2017 Scan Encounter Unspecified Department <No scans attached> [...] metoprolol succinate XL (TOPROL XL) 25 MG [id number]:Chronic ischemic heart disease Take 0.5 Tabs by mouth daily. 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 [...] once daily 31 Tab 11 10/31/2017 Active as of this encounter Active Problems Problem Noted Date Benign hypertension with CKD (chronic ki dney disease) stage III 09/06/2017 History of deep vein thrombosis (DVT) of lower extremity 09/08/2016 Status post insertion of drug eluting co ronary artery stent 04/07/2015 Overview: 2009, DUS placed in the mid RCA at [facility] Carotid stenosis, non-symptomatic 2014 Raynaud phenomenon 06/13/2011 Knee joint replacement status 01/13/2011 Overview: 2013, right [facility] Ric[facility] [...] Medicine Bj Mario DO [address] [place] [address] [phone] 02/14/2018 Office Visit Cardiology Yvon Harris PA-C [address] [facility] [place] [address] [phone] 03/14/2018 Office Visit Family Medicine Bj Mario, DO [address] [place] [address] [phone] Health Maintenance Due Date Last Done Comments DTaP,Tdap,and Td Vaccines (1 - Tdap) 04/22/2012 04/21/2012, 04/28/2008 CKD HGB USE SMARTSET 07181 07/25/201707/25, 04/11/2016, 10/12/2015, Additional history exists Influenza Vaccine (FLU shot) (#1) 2017 03/23/2017, 04/11/2016, 04/06/2015, Additional history exists CKD PHOS USE SMARTSET 29256 01/09/201812/21, 04/11/2016, 09/22/2014 CKD URINE PROTEIN/CREATININE RATION OR URINE MICROALBUMIN YEARLY USE SMARTSET 60705 01/09/2018 01/09/2017, 04/11/2016, 12/03/2013 CKD GFR USE SMARTSET 40262 04/04/201810/02, 01/09/2017, 07/25/2016, Additional history exists DIABETES [...]
--- OUTSIDE RECORDS SUMMARY | 2023-01-22 23:03 | External Medical Summary | Summary of Care ---
Author Name Unknown Organization [place] [address] Phone Care Team Providers Care Front Desk Monitor Name Role Phone Bj Mario Primary Care Provider Encounter Details Date Type Department Care Team Description 11/10/2017 Scan Encounter Unspecified Department <No scans attached> [...] metoprolol succinate XL (TOPROL XL) 25 MG IL51Ebzkqmxqult:Chronic ischemic heart disease Take 0.5 Tabs by mouth daily. 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 [...] mid RCA at [facility] Carotid stenosis, non-symptomatic 2014 Raynaud [...] Medicine Bj Mario DO [address] [place] [address] [phone] 02/14/2018 Office Visit Cardiology Yvon Harris PA-C [address] [facility] [place] [address] [phone] 03/14/2018 Office Visit Family Medicine Bj Mario, DO [address] [place] [address] [phone] Health Maintenance Due Date Last Done Comments DTaP,Tdap,and Td Vaccines (1 - Tdap) 04/22/2012 04/21/2012, 04/28/2008 CKD HGB USE SMARTSET 94518 07/25/201707/25, 04/11/2016, 10/12/2015, Additional history exists CKD PHOS USE SMARTSET 28445 01/09/201812/21, 04/11/2016, 09/22/2014 CKD URINE PROTEIN/CREATININE RATION OR URINE MICROALBUMIN YEARLY USE SMARTSET 62318 01/09/2018 01/09/2017, 04/11/2016, 12/03/2013 CKD GFR USE SMARTSET 99051 04/04/201810/02, 01/09/2017, 07/25/2016, Additional history exists DIABETES [...]
--- OUTSIDE RECORDS SUMMARY | 2023-01-22 23:03 | External Medical Summary | Summary of Care ---
Author Name Unknown Organization [place] [address] Phone Care Team Providers Care Sas Clinical Programmer Name Role Phone Bj Mario Primary Care Provider Encounter Details Date Type Department Care Team Description 11/24/2017 Scan Encounter Unspecified Department <No scans attached> [...] metoprolol succinate XL (TOPROL XL) 25 MG LU26Nrqbxwzfeao:Chronic ischemic heart disease Take 0.5 Tabs by mouth daily. 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 [...] 01/13/2011 Overview: 2013, right Dr Ricardo [facility] 2011: left [...] Medicine Bj Mario DO [address] [place] [address] [phone] 02/14/2018 Office Visit Cardiology Yvon Harris PA-C [address] [facility] [place] [address] [phone] 03/14/2018 Office Visit Family Medicine Bj Mario, DO [address] [place] [address] [phone] Health Maintenance Due Date Last Done Comments DTaP,Tdap,and Td Vaccines (1 - Tdap) 04/22/2012 04/21/2012, 04/28/2008 CKD HGB USE SMARTSET 79449 07/25/201707/25, 04/11/2016, 10/12/2015, Additional history exists Influenza Vaccine (FLU shot) (#1) 2017 03/23/2017, 04/11/2016, 04/06/2015, Additional history exists CKD PHOS USE SMARTSET 33583 01/09/201812/21, 04/11/2016, 09/22/2014 CKD URINE PROTEIN/CREATININE RATION OR URINE MICROALBUMIN YEARLY USE SMARTSET 03851 01/09/2018 01/09/2017, 04/11/2016, 12/03/2013 CKD GFR USE SMARTSET 46753 04/04/201810/02, 01/09/2017, 07/25/2016, Additional history exists DIABETES [...]
--- OUTSIDE RECORDS SUMMARY | 2023-01-22 23:03 | External Medical Summary | Summary of Care ---
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 Bj Mario, DO [address] [place] [address] Reason for Visit * Reason Comments RECHECK 2 month recheck Encounter Details Date Type Department Care Team Description 12/20/2017 Office Visit Family Practice [facility] [address] [place] [address] Bj Mario, [address] [address] [phone] 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 neurogenic claudication*;Displaceme nt of lumbar intervertebral disc without myelopathy Allergies [...] metoprolol succinate XL (TOPROL XL) 25 MG CQ60Exmfeibffho:Tool 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 31 Tab 5 09/07/2016 Active isosorbide mononitrate SA (IMDUR) 30 MG VM85Kblmdupurmg:Ches t heaviness Take 1 Tab by mouth [...] 5 10/05/2017 Active nitroglycerin (NITROSTAT) 0.4 MG SUBLIndications:Tool Shaper Setup Operator jose alberto ischemic heart disease 1 [...] if needed 60 Tab 1 12/20/2017 Active traMADol (ULTRAM) 50 MG TabletIndications:Di splacement of lumbar intervertebral disc without myelopathy take 1 tablet by mouth every 6 hours if needed 40 Tab 1 08/09/2017 8 Discontinued Ibuprofen (ADVIL) 200 MG Capsule Take 200 mg by mouth every 4 hours as needed for Pain. 8 Discontinued as of this encounter Active Problems Problem Noted Date Benign hypertension with CKD (chronic ki dney disease) stage III 09/06/2017 History of deep vein thrombosis (DVT) of lower extremity 09/08/2016 Status post insertion of drug eluting co ronary artery stent 04/07/2015 Overview: 2009, DUS placed in the mid RCA at [facility] Carotid stenosis, non-symptomatic 2014 Raynaud phenomenon [...] Vital Sign Reading Time Taken Blood Pressure 126/84 12/20/2017 12:03 PM EDT Pulse 60 12/20/2017 12:03 PM EDT Temperature 36.1 C (97 F) 12/20/2017 12: 03 PM EDT Respiratory Rate 16 12/20/2017 12:0 3 PM EDT Oxygen Saturation - - Inhaled Oxygen Concentration - - Weight 86.2 kg (190 lb) 12/20/2017 12:0 3 PM EDT Height - - Body Mass Index 32.6 12/20/2017 12:03 PM EDT in this encounter Progress Notes * Bj Mario, DO - 12/20/2017 12:22 PM EDT Formatting of this note may be different from the original. Subjective: Eugenia Hu is a 82 year old female. Chief Complaint Patient presents with RECHECK 2 month recheck HPI: BP better today. Still some swelling in her legs on higher dose of ANT. Wants to stay on 10 mg of ANT. Pt with continued back pain. Less pain going down her L leg. She did PT and sees Dr. Hall. That helped clear the pain going down her L leg. She still has pain in her back down low in the middle. Her MRI showed spinal stenosis at multiple levels. She takes Tramadol and it helps. She takes it around once per day but not every day. Does not take it when she feels good. Some good days. She takes some tylenol also. She stopped Advil because of her kidneys. She feels like she needs to do something. Her pain is just a pain. No burning or numbness. No more down her leg. Does exercises some day. Still active. PMHx, meds, and allergies reviewed Patient Active [...] (chronic kidney disease) stage III I12.9, N18.3 Current Outpatient Prescriptions Medication Sig [...] daily. In the morning 31 Tab 5 traMADol (ULTRAM) 50 MG Tablet take 1 tablet by mouth every 6 hours if needed 40 Tab 1 metoprolol succinate XL (TOPROL XL) 25 MG [...] allergies indicates: No Known Allergies OBJECTIVE: BP 126/84 | Pulse 60[irregular[ | Temp (Src) 97 (Tympanic) | Resp 16 | Wt 190 lbs (86.183kg) | BMI 32.6 kg/m | BSA 1.97 m Estimated body mass index is 32.6 kg/(m^2) as calculated from the following: Height as of 03/23/17: 1.626 m (5' 4.02"). Weight as of this encounter: 86.2 kg (190 lb). BP Readings from Last 3 Encounters: 12/20/17 126/84 10/09/17 140/72 10/02/17 156/78 Wt Readings from Last 3 Encounters: 12/20/17 86.2 kg (190 lb) 10/09/17 90.2 kg (198 lb 12.8 oz) 10/02/17 90.3 kg (199 lb) ROS: Negative except for above PHYSICAL [...] inflammation, no edema, no clubbing, no cyanosis ASSESSMENT/Plan M48.061 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 neurogenic claudication (primary encounter diagnosis) Plan: Pain medicine referral op M51.26 Displacement of lumbar intervertebral disc without myelopathy Plan: Pain medicine referral op Tramadol hcl 50 mg po tabs Sig:Take 1 tablet by mouth every 6 hours if needed Continue tramadol and get in with Dr. Berg to talk about possible injections. The above was discussed and understanding was expressed. Bj Mario DO in this encounter Nursing Notes * Abbie Sumner LPN - 12/20/2017 12:06 PM EDT Patient presents today for a 2 month recheck. Patient would like to discuss ongoing back pain and treatment options. 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 Ordered: 12/20/2017 Health Maintenance Due Date Last Done Comments DTaP,Tdap,and Td Vaccines (1 - Tdap) 04/22/2012 04/21/2012, 04/28/2008 CKD HGB USE SMARTSET 36276 07/25/201707/25, 04/11/2016, 10/12/2015, Additional history exists CKD PHOS USE SMARTSET 09302 01/09/201812/21, 04/11/2016, 09/22/2014 CKD URINE PROTEIN/CREATININE RATION OR URINE MICROALBUMIN YEARLY USE SMARTSET 84727 01/09/2018 01/09/2017, 04/11/2016, 12/03/2013 Influenza Vaccine (FLU shot) (#1) 2018 03/23/2017, 04/11/2016, 04/06/2015, Additional history exists CKD GFR USE SMARTSET 77037 04/04/201810/02, 01/09/2017, 07/25/2016, Additional history exists DIABETES [...] Diagnosis Spinal stenosis of lumbar re gion without neurogenic claudication - Primary Spinal stenosis, lumbar region, without neurogenic claudication Displacement of lumbar inter vertebral disc without myelopathy in this encounter
--- OUTSIDE RECORDS SUMMARY | 2023-01-22 23:04 | External Medical Summary | Summary of Care ---
Author Name Unknown Organization [place] [address] Phone Care Team Providers Care Production Manager Name Role Phone AntioneBj barron Primary Care Provider Reason for Visit * Reason Comments EDEMA to both feet - for t he past 2-3 weeks; pt states she can't recall having swelling before Encounter Details Date Type Department Care Team Description 10/02/2017 Office Visit General Internal Medicine [facility] [address] [place] [address] Maury Higgins MD [address] [place] [address] [phone] Edema, unspecified type*;Benign hypertension with CKD (chronic kidney disease) stage III Allergies No Known Allergiesas of this encounter Medications Prescription Sig. Disp. Refills Start Date End Date Status ASPIRIN 81 MG PO CHEW One pill by mouth once a day with food 100 5 08/06/2008 Active VITAMIN D 1000 UNIT PO CAPSIndications:Vitami n D deficiency 1 capsule daily 30 Cap 11 10/13/2009 Active NITROGLYCERIN 0.4 MG SL SUBLIndications:Chroni c ischemic heart disease 1 every 5 min as needed with chest pain up to 3 doses in 15 minutes 25 Tab 11 03/10/2014 Active TRAVATAN Z 0.004 % ophthalmic solution Instill 1 Drop into both eyes every evening. 0 07/29/2014 Active amoxicillin (AMOXIL) 500 MG CapsuleIndications:Pro phylactic antibiotic,History of bilateral hip replacements,Hip joint replacement status,Status post total bilateral knee replacement take 4 capsules by mouth 1 hour PRIOR TO PROCEDURE 4 Cap 6 07/09/2015 Active metoprolol succinate XL (TOPROL XL) 25 MG [id number]:Chroni c ischemic heart disease Take 0.5 Tabs by mouth daily. 31 Tab 5 09/07/2016 Active lisinopril (PRINIVIL) 10 MG TabletIndications:HTN, goal below 140/90 Take 1 Tab by mouth daily. 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 30 Patch 0 08/09/2017 Active isosorbide mononitrate SA (IMDUR) 30 MG [id number]:Chest heaviness Take 1 Tab by mouth daily. In the morning 31 Tab 5 08/14/2017 Active rOPINIRole (REQUIP) 0.25 MG TabletIndications:Rest less legs syndrome Take 1 Tab by mouth at bedtime. 30 Tab 5 09/06/2017 Active as of this encounter Active Problems Problem Noted Date Benign hypertension with CKD (chronic ki dney disease) stage III 09/06/2017 History of deep vein thrombosis (DVT) of lower extremity 09/08/2016 Status post insertion of drug eluting co ronary artery stent 04/07/2015 Overview: 2009, DUS placed in the mid RCA at [facility] Kidney disease, chronic, stage III (GFR 30-59 ml/min) 08/04/2014 Overview: Per CKD protocol #1 Carotid stenosis, non-symptomatic 2014 Raynaud phenomenon 06/13/2011 Knee joint replacement status 01/13/2011 Overview: 2013, right Dr Ricardo [facility] 2011: [...] vein thrombosis of right lower extrem ity ([facility]) 03/05/2014 09/08/2016 Overview: Occurred after the right knee replacement Right leg DVT ([facility]) 03/05/2014 09/08/2016 Warfarin anticoagulation 03/05/2014 015 History [...] Vital Sign Reading Time Taken Blood Pressure 156/78 10/02/2017 1:27 PM EDT Pulse 64 10/02/2017 1:02 PM EDT Temperature 36.6 C (97.9 F) 10/02/2017 1 :02 PM EDT Respiratory Rate 16 10/02/2017 1:02 PM EDT Oxygen Saturation 96% 10/02/2017 1:0 2 PM EDT Inhaled Oxygen Concentration - - Weight 90.3 kg (199 lb) 10/02/2017 1:02 PM EDT Height - - Body Mass Index 34.14 10/02/2017 1:02 PM EDT in this encounter Instructions * Patient Instructions - Maury Higgins MD - 10/02/2017 1:22 PM EDT Formatting of this note may be different from the original. High Blood Pressure: Eating Foods Low in Salt: Brief Version If you have high blood pressure, cutting down on salt can help lower it. Sodium is the part of saltthat causes the problems. You should have no more than 2300 milligrams of sodium a day. One teaspoon of salt has about 2300 milligrams of sodium. Our taste for salt is mainly a habit. When you use less salt, your taste starts to change. After a while, food tastes better without salt than it did with it. You can use less salt. There are two main ways to use less salt: Do not add salt to your foods. Choose foods that have less salt. Read the labels on canned and prepared foods. If you need to eat very little salt, you may need help in planning your meals. Talk to your health care provider or dietitian. Remember there are many healthy ways to add taste without adding salt. You can use less salt by doing these things: Read labels carefully. Look for any form of salt or sodium (another word for salt). Remember that baking soda, MSG, and baking powder have sodium, too. Do not use foods that have too much sodium. Add very little or no salt to the food you make. Do not add salt to food at the table. Watch what you eat when you eat out. Fast foods are often very high in salt, as are many other restaurant foods. When cooking or preparing foods, stay away from: Ketchup, prepared mustard, pickles, and olives. Soy sauce, steak or barbecue sauce, chili sauce, or Worcestershire sauce. Bottled salad dressings. Bouillon cubes. Self-rising flour and biscuit mixes. Don't eat foods high in salt, such as: Cured meats or fish (for example, kong, luncheon meats, and canned sardines). Canned vegetables, soups, and other packaged foods. Cheeses and buttermilk. Salted nuts and peanut butter. Salted crackers, chips, popcorn, and pretzels. Instant cooked cereals. You can get many of these foods with no or low salt. Read the labels. You may also want to try someof the many frozen low-salt and low-fat dinners. Ask your health care provider about using salt substitutes. Many salt substitutes have potassium. You may need to watch how much potassium you use. You can learn to cook without using salt. You can be creative and make food look and taste great. It's a good idea to eat fresh foods as muchas you can. Also, plain frozen fruits and vegetables usually do not have added salt. Instead of salt, there are many kinds of things you can use to flavor your foods. You can try: Worley, cilantro, cumin, or vi. Thyme, le, bay leaf, or oregano. Onions, garlic, mushrooms, or tomatoes. Waldo, lemon, hopland juice, or wine. Here are some other great suggestions: If you use canned products, use the low-salt types. Rinse canned vegetables with tap water before cooking. Use unsalted margarine instead of regular margarine or butter. Eat tuna and salmon. Rinse first with running water. Take care of yourself. Find out more about eating healthy foods. You can: Go to the library. Call the [place] [employer] ( ). Ask your health care provider or dietitian for more information about eating right. Look at your bookstore for low-salt cookbooks. Remember to read food labels to find out how much salt and fat are used. Take time to plan and enjoy your meals. It can be fun to learn to cook new dishes. And it's great to know that when you use less salt, you will lower your blood pressure. Developed by [employer]. Published by [employer]. Last modified: 2004-09-24 Last reviewed: 2004-08-09 This content is reviewed periodically and is subject to change as new health information becomes available. The information is intended to inform and educate and is not a replacement for medical evaluation, advice, diagnosis or treatment by a healthcare professional. Women's Health Advisor 2004.2 Index Women's Health Advisor 2004.2 Credits Copyright 2005 [employer] and/or one of its subsidiaries. All Rights Reserved. What Is High Blood Pressure? What You Can Do Quit smoking Lose weight Eat healthier Limit alcohol intake Exercise Reduce stress Take your medications Check your blood pressure regularly High blood pressure is known as the "silent killer" because it often has no symptoms. Left uncontrolled, high blood pressure can lead to heart disease, heart attack, stroke, kidney disease, or blindness. Making some lifestyle changes and taking any prescribed medication should keep your blood pressure under control. How Blood Pressure Affects Arteries As blood moves through your body, it presses against the inside sanders of arteries (blood vessels that carry blood to the body). Frequent high blood pressure can cause changes in the artery sanders. Thewalls thicken and become rough, which leads to a buildup of plaque (a fatty material). Measuring Blood Pressure Your blood pressure is too high if it measures 140/90 (140 over 90) or higher most of the time. Thetop number is the pressure of blood against the artery sanders during a heartbeat (systolic). The bottom number is the pressure of blood against artery sanders between heartbeats (diastolic). Normal Prehypertensive Too High Top (systolic) Below 120 [id number] 140 or higher Bottom (diastolic) Below 80 8089 90 or higher 5975-9664 [employer], [address] [place] [address], [place] [address]. All rights reserved. This information is not intended as a substitute for professional medical care. Always follow your healthcare professional's instructions. in this encounter Progress Notes * Maury Higgins MD - 10/02/2017 1:16 PM EDT Formatting of this note may be different from the original. Chief Complaint Patient presents with EDEMA to both feet - for the past 2-3 weeks; pt states she can't recall having swelling before SUBJECTIVE: Eugenia Hu is a 82 year old female with PMH as below who presents for edema. Bilateral 2-3 weeks. Slowly worse as day goes on, better in am and with feet up. Not sure if had edema before, butfamily who is studying to be a nurse told her to be checked out (were at Mother's day event yesterday). Other then chronic backpain she feels "fine," No cp, sob, cancino, no weight changes. No N/V/D. Notsure how much salt in diet. Mood is good. Patient denies chest pain, PND or orthopnea. She is compliant with bp meds. Patient Active Problem List Diagnosis Code Advance [...] Current Outpatient Prescriptions Medication Sig Dispense Refill amoxicillin (AMOXIL) 500 MG Capsule take 4 capsules by mouth 1 hour PRIOR TO PROCEDURE 4 Cap 6 ASPIRIN 81 MG PO CHEW One pill by mouth once a day with food 100 5 isosorbide mononitrate SA (IMDUR) 30 MG TB24 Take 1 Tab by mouth daily. In the morning 31 Tab 5 lidocaine (LIDODERM) 5 % Place 1 Patch topically on the skin daily. 30 Patch 0 lisinopril (PRINIVIL) 10 MG Tablet Take 1 Tab by mouth daily. 90 Tab 3 metoprolol succinate XL (TOPROL XL) 25 MG TB24 Take 0.5 Tabs by mouth daily. 31 Tab 5 NITROGLYCERIN 0.4 MG SL SUBL 1 every 5 min as needed with chest pain up to 3 doses in 15 minutes 25 Tab 11 rOPINIRole (REQUIP) 0.25 MG Tablet Take 1 Tab by mouth at bedtime. 30 Tab 5 rosuvastatin (CRESTOR) 20 MG Tablet take 1 tablet by mouth once daily 31 Tab 5 traMADol (ULTRAM) 50 MG Tablet take 1 tablet by mouth every 6 hours if needed 40 Tab 1 TRAVATAN Z 0.004 % ophthalmic solution Instill 1 Drop into both eyes every evening. 0 VITAMIN D 1000 UNIT PO CAPS 1 capsule daily 30 Cap 11 Review of patient's allergies indicates: No Known Allergies Health Maintenance Due Topic Date Due DTaP,Tdap,and Td Vaccines (1 - Tdap) 04/22/2012 CKD GFR USE SMARTSET 19847 07/12/2017 CKD HGB USE SMARTSET 48917 07/25/2017 ROS: CONSTITUTIONAL: No change in weight, No weakness and No fevers, sweats, or chills PULMONARY: No cough, sputum, or hemoptysis, No wheezing, No rales, No shortness of breath and No recent change in breathing CARDIOVASCULAR: No chest pain, No shortness of breath, No dyspnea on exertion, No orthopnea, No paroxysmal nocturnal dyspnea, No palpitations and No syncope GASTROINTESTINAL: No abdominal pain, No change in bowel habits, No significant heartburn, No significant change in appetite, No nausea, vomiting, diarrhea, or constipation, No hematemesis, No blood in stools or black tarry stools, No abdominal bloating or early satiety and No dysphagia All OTHER SYSTEMS NEGATIVE EXCEPT STATED IN HPI ABOVE, OVER 10 SYSTEMS REVIEWED I reviewed social, PMH, PSH, and family history and updated where needed. 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 2000, left 1992 HTN, goal below 140/90 Knee joint replacement status 01/13/[address] Priya Ricardo [facility] Knee joint replacement status 12/15/2013 right [facility] Macular degeneration Ugo Simon MD Menopause 1974 Need for prophylactic hormone replacement therapy (postmenopausal) 1974 Non-toxic multinodular goiter 04/2009 seen on US, repeat -10/2009 Other screening mammogram 10/24/03 Birad Code 2 Other specified glaucoma both eyes, Paul Simon MD, drops used, timolol S/P angioplasty with stent 06/30/09 [facility] Status post insertion of drug eluting coronary artery stent 04/07/20152009, DUS placed in the mid RCA at [facility] Vitamin D deficiency 10/13/2009 Past Surgical History: Procedure Laterality Date ARTHROPLASTY KNEE TOTAL Left 01/13/2011 Left, Dr Priya Ricardo [facility] ARTHROPLASTY KNEE TOTAL Right 12/16/13 Right, Dr Priya Ricardo [facility] CARDIAC CATH SCANNED RESULT 06/30/2009 DUS placed in right coronary, [facility] CARPAL TUNNEL SURGERY Bilateral 2014 bilateral [...] left in, Dr Chakraborty in [facility] REMOVE CATARACT, INSERT LENS PROSTH Right 01/05/[address] Messi Simon REMOVE CATARACT, INSERT LENS PROSTH Left 01/28/[address] Messi Simon STENT, COATED/COVERED, WITH DELIVERY SYSTEM 06/30/2009 [employer] [facility] Eluding Stent [facility] TOTAL HIP REPLACEMENT & PROSTHESIS 1992 left, Dr Ricardo TOTAL HIP REPLACEMENT & PROSTHESIS 10/2000 right , Dr Ricardo at [facility] Family History Problem Relation Age of Onset Cancer Mother cancer of bone Lung Disorder Father old age with heart failure Heart Disorder Brother ID at age 62 Heart Disorder Brother angina OBJECTIVE: PHYSICAL EXAM: BP 154/76 | Pulse 64 | Temp (Src) 97.9 (Tympanic) | Resp 16 | Wt 199 lbs (90.266kg) | BMI 34.14 kg/m | BSA 2.02 m | SaO2 96[room air[% General: alert, healthy, no distress, well nourished and well developed Head: Normocephalic, No masses, lesions, tenderness or abnormalities Eye Exam: PERRLA, Conjunctiva are pink and non-injected, sclera clear Ears: External ears normal, Canals clear, TM's Normal Nose: no mucosal erythema, no mucosal edema, no purulent discharge, no septal hematoma Oropharynx: no exudate, no erythema, lips, buccal mucosa, and tongue normal and mucous membranes are moist Heart: regular rate & rhythm, no murmurs, no gallops, PMI non-displaced, S-1 normal and S-2 normal Lungs: normal respiratory rate and rhythm, lungs clear to auscultation Extremities: 1+ edema bilaterally to ankles w/o pain or warmth Neuro Exam: no focal motor/sensory deficits, gait normal Psych: normal affect, no flight of ideas or tangential thought, good eye contact, no pressured speech I reviewed last labs Stress echo 08/2017: The stress echo is negative for inducible ischemia. There was an adequate and appropriate heart rate and blood pressure response to the dobutamine/atropine stress protocol. No symptoms were noted. The stress EKG response showed no evidence of ischemia. Occasional PVCs were noted with stress. Nonsustained supraventricular tachycardia was noted during stress. The left ventricular wall motion is normal. The left ventricular ejection fraction increases normally with stress. The left ventricular wall motion with stress is normal. The left ventricular cavity size is normal. The LV wall thickness is moderately increased (concentric). The basal septum is thickened and angulated consistent with sigmoid septum. The qualitative LV ejection fraction is 6064% (normal). Moderate aortic valve sclerosis is present. Prior described VSD not visible on current study Filed Vitals: 10/02/17 1302 10/02/17 1327 BP: 154/76 156/78 Pulse: 64 Resp: 16 Temp: 36.6 C (97.9 F) TempSrc: Tympanic SpO2: 96% Weight: 90.3 kg (199 lb) ASSESSMENT: R60.9 Edema, unspecified type (primary encounter diagnosis) I12.9,N18.3 Benign hypertension with CKD (chronic kidney disease) stage III PLAN: R60.9 Edema, unspecified type (primary encounter diagnosis) Plan:?dependent edema given worse as day goes on. Doubt ischemia given recent normal stress. May also be related to salt/diet/bp check labs t/c increasing acei pending labs low salt diet info discussed, given at check out Basic metab panel, bmp Tsh leg elevation discussed I12.9, N18.3 Benign hypertension with ckd (chronic kidney disease) stage iii Plan: Basic metab panel, bmp Tsh Follow up: Return in about 2 months (around 12/02/2017) for bp recheck with pcp . Maury Higgins MD in this encounter Nursing Notes * Marco Antonio Flores RN - 10/02/2017 1:01 PM EDT Formatting of this note may be different from the original. Chief Complaint Patient presents with EDEMA to both feet - for the past 2-3 weeks; pt states she can't recall having swelling before in this encounter Miscellaneous Notes * Addendum Note - Valentine Hui PBT - 10/02/2017 1:29 PM EDT Addended by: VALENTINE HUI on: 10/02/2017 01:29 PM Modules accepted: Orders in this encounter Plan of Treatment Upcoming Encounters Date Type Specialty Care Team Description 12/20/2017 Office Visit Family Practice Bj Mario, DO [address] [place] [address] [phone] 02/14/2018 Office Visit Cardiology Yvon Harris PA-C [address] [facility] [place] [address] [phone] 03/14/2018 Office Visit Family Practice Bj Mario, DO [address] [place] [address] [phone] Scheduled Tests Name Priority Associated Diagnoses Order S chedule BASIC METAB PANEL, BMP Routine Edema, unspecified type Benign hypertension with CKD (chronic kidney disease) stage III Expected: 10/02/2017 (Approximate), Expires: 10/02/2018 TSH Routine Edema, unspecified type Benign hypertension with CKD (chronic kidney disease) stage III Expected: 10/02/2017 (Approximate), Expires: 10/02/2018 Health Maintenance Due Date Last Done Comments DTaP,Tdap,and Td Vaccines (1 - Tdap) 04/22/2012 04/21/2012, 04/28/2008 CKD GFR USE SMARTSET 59446 07/12/201701/09, 07/25/2016, 04/11/2016, Additional history exists CKD HGB USE SMARTSET 77965 07/25/201707/25, 04/11/2016, 10/12/2015, Additional history exists CKD PHOS USE SMARTSET 69872 01/09/201812/21, 04/11/2016, 09/22/2014 CKD URINE PROTEIN/CREATININE RATION OR URINE MICROALBUMIN YEARLY USE SMARTSET 77244 01/09/2018 01/09/2017, 04/11/2016, 12/03/2013 DIABETES SCREEN EVERY 3 YRS- AGE 45 AND ABOVE 01/10/2020 01/09/2017, 07/25/2016, 04/11/2016, Additional history exists DXA-SCREENING EVERY 7 YRS-US E SMARTSET# [id number] TO ORDER 10/30/2020 10/30/2013, 10/30/2013, 08/24/2009, Additional history exists PNEUMOCOCCAL ADULT 65 YRS AND OVER Completed 2014, 03/12/2002 Influenza Vaccine (FLU shot) Completed 06/2016, 04/11/2016, 04/06/2015, Additional history exists as of this encounter Implants Not on fileas of this encounter Visit Diagnoses Diagnosis Edema, unspecified type - Pr imary Benign hypertension with CKD (chronic kidney disease) stage III Benign hypertensive kidney disease with chronic kidney disease stage I through stage IV, or unspecified in this encounter
--- OUTSIDE RECORDS SUMMARY | 2023-01-22 23:04 | External Medical Summary | Summary of Care ---
Author Name Unknown Organization [place] [address] Phone Care Team Providers Care Sand Blaster Name Role Phone Bj Mario DO Primary Care Provider [phone] Reason for Referral * Precert (Routine) Status Reason Specialty Diagnoses / Procedures Referred By Contact Referred To Contact Pending Review Precert Radiology Diagnoses Chronic left-sided low back pain with left-sided sciatica Procedures MRI L SPINE WO CONTRAST Bj Mario, DO [address] [facility] [place] [address] Reason for Visit * Reason Comments RECHECK Encounter Details Date Type Department Care Team Description 09/06/2017 Office Visit Family Practice [facility] [address] [place] [address] Bj Mario, [address] [facility] [place] [address] [phone] Benign hypertension with CKD (chronic kidney disease) stage III*;Chronic left-sided low back pain with left-sided sciatica;Restless legs syndrome Allergies No Known Allergiesas of this encounter Medications Prescription Sig. Disp. Refills Start Date End Date Status ASPIRIN 81 MG PO CHEW One pill by mouth once a day with food 100 5 08/06/2008 Active VITAMIN D 1000 UNIT PO CAPSIndications:Carmel min D deficiency 1 capsule daily 30 Cap 11 10/13/2009 Active NITROGLYCERIN 0.4 MG SL SUBLIndications:Manager Acute jose alberto ischemic heart disease 1 every [...] metoprolol succinate XL (TOPROL XL) 25 MG [id number]:Manager Acute jose 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 31 Tab 5 09/07/2016 Active lisinopril (PRINIVIL) 10 MG TabletIndications:HT N, goal below 140/90 Take 1 Tab by mouth daily. 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 30 Patch 0 08/09/2017 Active isosorbide mononitrate SA (IMDUR) 30 MG [id number]:Ches t heaviness Take 1 Tab by mouth daily. In the morning 31 Tab 5 08/14/2017 Active rOPINIRole (REQUIP) 0.25 MG TabletIndications:Re stless legs syndrome Take 1 Tab by mouth at bedtime. 30 Tab 5 09/06/2017 Active rOPINIRole (REQUIP) 0.25 MG TabletIndications:Re stless legs syndrome Take 1 Tab by mouth at bedtime. 30 Tab 5 04/11/2016 8 Discontinued PredniSONE (DELTASONE) 20 MG TabletIndications:Ch ronic left-sided low back pain with left-sided sciatica Take 2 pills by mouth for 5 days and then 1 pill for 5 days 15 Tab 0 08/09/2017 8 Discontinued as of this encounter Active Problems Problem Noted Date Benign hypertension with CKD (chronic ki dney disease) stage III 09/06/2017 History of deep vein thrombosis (DVT) of lower extremity 09/08/2016 Status post insertion of drug eluting co ronary artery stent 04/07/2015 Overview: 2009, DUS placed in the mid RCA at [facility] Kidney disease, chronic, stage III (GFR 30-59 [...] Smokeless Tobacco: Never Used Tobacco Cessation:Counseling Given: No Alcohol Use Drinks/Week oz/Week Comments Yes occ Sex Assigned at Date Recorded Not on file as of this encounter Last Filed Vital Signs Vital Sign Reading Time Taken Blood Pressure 138/86 09/06/2017 4:10 PM EDT Pulse 72 09/06/2017 4:10 PM EDT Temperature 36.1 C (97 F) 09/06/2017 4:1 0 PM EDT Respiratory Rate 16 09/06/2017 4:10 PM EDT Oxygen Saturation - - Inhaled Oxygen Concentration - - Weight 88.8 kg (195 lb 12.8 oz) 018 4:10 PM EDT Height - - Body Mass Index 33.59 09/06/2017 4:10 PM EDT in this encounter Progress Notes * Bj Mario, - 09/06/2017 4:38 PM EDT Formatting of this note may be different from the original. Subjective: Eugenia Hu is a 82 year old female. Chief Complaint Patient presents with RECHECK HPI: Pt here in follow-up. Pt got prednisone. When she was on it that helped. Pain came back to the same pain afterwards. She is seeing Dr. Hall and it helps some. Less pain going down her leg. She is going to go once weekly now. She has less of the sciatica going down her leg. The pain in her back is still there. She says she is not better at all. She is rarely taking pain pills. She went square dancing but could only do half a dance. PMHx, meds, and allergies reviewed Patient Active [...] allergies indicates: No Known Allergies OBJECTIVE: BP 138/86 | Pulse 72 | Temp (Src) 97 (Tympanic) | Resp 16 | Wt 195 lbs 12.8 oz (88.814kg) | BMI 33.59 kg/m | BSA 2 m Estimated body mass index is 33.59 kg/(m^2) as calculated from the following: Height as of 03/23/17: 1.626 m (5' 4.02"). Weight as of this encounter: 88.8 kg (195 lb 12.8 oz). BP Readings from Last 3 Encounters: 09/06/17 138/86 08/14/17 140/86 08/09/17 130/70 Wt Readings from Last 3 Encounters: 09/06/17 88.8 kg (195 lb 12.8 oz) 08/14/17 85.8 kg (189 lb 1.9 oz) 08/09/17 88.1 kg (194 lb 3.2 oz) ROS: Negative except for above PHYSICAL EXAM: General: alert, healthy, no distress, well nourished and well developed Head: Normocephalic, No masses, lesions, tenderness or abnormalities ASSESSMENT/Plan I12.9, N18.3 Benign hypertension with ckd (chronic kidney disease) stage iii (primary encounter diagnosis) M54.42, G89.29 Chronic left-sided low back pain with left-sided sciatica Plan: Mri l spine wo contrast G25.81 Restless legs syndrome Plan: Ropinirole hcl 0.25 mg po tabs Sig:Take 1 tab by mouth at bedtime. Follow up: Return in about 6 months (around 03/08/2018). Check MRI considering lack of improvement with chiropractor or medications. The above was discussed and understanding was expressed. Bj Mario DO in this encounter Nursing Notes * Rona Mota LPN - 09/06/2017 4:09 PM EDT Patient presents today for 4 week recheck. in this encounter Plan of Treatment Upcoming Encounters Date Type Specialty Care Team Description 09/27/2017 Imaging Radiology [id number] [address] [place] [address] [phone] Prep, [facility] [address] [place] [address] [phone] 02/14/2018 Office Visit Cardiology Yvon Harris PA-C [address] [place] [address] [phone] 03/14/2018 Office Visit Family Practice Bj Mario, DO [address] [facility] [address] [phone] Scheduled Tests Name Priority Associated Diagnoses Order S chedule MRI L SPINE WO CONTRAST Routine Chronic left-sided low back pain with left-sided sciatica Ordered: 09/06/2017 Health Maintenance Due Date Last Done Comments DTaP,Tdap,and Td Vaccines (1 - Tdap) 04/22/2012 04/21/2012, 04/28/2008 CKD GFR USE SMARTSET 11445 07/12/201701/09, 07/25/2016, 04/11/2016, Additional history exists CKD HGB USE SMARTSET 29209 07/25/201707/25, 04/11/2016, 10/12/2015, Additional history exists CKD PHOS USE SMARTSET 10567 01/09/201812/21, 04/11/2016, 09/22/2014 CKD URINE PROTEIN/CREATININE RATION OR URINE MICROALBUMIN YEARLY USE SMARTSET 41700 01/09/2018 01/09/2017, 04/11/2016, 12/03/2013 DIABETES SCREEN EVERY [...] I through stage IV, or unspecified Chronic left-sided low back pain with left-sided sciatica Restless legs syndrome Restless legs syndrome (RLS) in this encounter Insurance Payer Benefit Plan / Group Subscriber ID Type Phone Address MEDICARE REPLACEMENT DENISE PPO [id number] Medicar e as of this encounter
--- OUTSIDE RECORDS SUMMARY | 2023-01-22 23:04 | External Medical Summary | Summary of Care ---
Author Name Unknown Organization [place] [address] Phone Care Team Providers Care Dog Sitter Name Role Phone Bj Mario Primary Care Provider [phone] Encounter Details Date Type Department Care Team Description 08/29/2017 Scan Encounter Unspecified Department <No scans attached> [...] TO PROCEDURE 4 Cap 6 07/09/2015 Active rOPINIRole (REQUIP) 0.25 MG TabletIndications:Rest less legs syndrome Take 1 Tab by mouth at bedtime. 30 Tab 5 04/11/2016 Active metoprolol succinate XL (TOPROL XL) 25 MG [id number]:Chroni c ischemic heart disease Take 0.5 Tabs by mouth daily. 31 Tab 5 09/07/2016 Active lisinopril (PRINIVIL) 10 MG TabletIndications:HTN, goal below 140/90 Take 1 Tab by mouth daily. 90 Tab 3 12/06/2016 Active rosuvastatin (CRESTOR) 20 MG TabletIndications:Dysl ipidemia, goal LDL below 70 take 1 tablet by mouth once daily 31 Tab 5 04/10/2017 Active PredniSONE (DELTASONE) 20 MG TabletIndications:[employer] Chocolate Dipper jose alberto left-sided low back pain with left-sided sciatica Take 2 pills by mouth for 5 days and then 1 pill for 5 days 15 Tab 0 08/09/2017 Active traMADol (ULTRAM) 50 MG TabletIndications:Disp lacement of lumbar intervertebral disc without myelopathy take 1 tablet by mouth every 6 hours if needed 40 Tab 1 08/09/2017 Active lidocaine (LIDODERM) 5 %Indications:Displacem ent of lumbar intervertebral disc without myelopathy Place 1 Patch topically on the skin daily. 30 Patch 0 08/09/2017 Active isosorbide mononitrate SA (IMDUR) 30 MG [id number]:Chest heaviness Take 1 Tab by mouth daily. In the morning 31 Tab 5 08/14/2017 Active as of this encounter Active Problems Problem Noted Date History of deep vein thrombosis (DVT) of lower extremity 09/08/2016 Status post insertion of drug eluting co ronary artery stent 04/07/2015 Overview: 2009, DUS placed in the mid RCA at [facility] Kidney disease, chronic, stage III (GFR 30-59 ml/min) 08/04/2014 Overview: Per CKD protocol #1 Carotid stenosis, non-symptomatic 2014 Raynaud phenomenon 06/13/2011 Knee joint replacement status 01/13/2011 Overview: 2014, right Dr Ricardo [facility] 2011: left Dr Priya Ricardo [facility] Dyslipidemia, goal LDL below 70 09/21/19 11 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 neurogenic claudication 02/17/2010 Vitamin D deficiency 10/13/2009 Chronic ischemic heart disease 0 S/P angioplasty with stent 06/30/2009 Overview: 07/01/2009 DUS in the RCA at [facility] Non-toxic multinodular goiter 04/21/2009 Overview: seen on US, repeat -10/2009 HTN, goal below 140/90 05/25/2006 SCREEN CANCER - COLON 02/06/2006 Advance directive on file 01/19/2005 Overview: No, Advance Directive brochure given to patient. Hip joint replacement status 01/19/2005 Overview: right 2000, left 1993 Menopause Macular degeneration Overview: Ugo Simon MD [...] angle glaucoma 08/17/200905/22 Chest pain 06/23/2009 08/17/2009 Prophylactic antibiotic 01/19/2005 06/02/19 18 Need for [...] Encounters Date Type Specialty Care Team Description 09/06/2017 Office Visit Family [facility] Bj Mario, DO [address] [place] [address] [phone] 02/14/2018 Office Visit Cardiology Yvon Harris PA-C [address] [facility] [place] [address] [phone] Health Maintenance Due Date Last Done Comments DTaP,Tdap,and Td Vaccines (1 - Tdap) 04/22/2012 04/21/2012, 04/28/2008 CKD GFR USE SMARTSET 61897 07/12/201701/09, 07/25/2016, 04/11/2016, Additional history exists CKD HGB USE SMARTSET 82935 07/25/201707/25, 04/11/2016, 10/12/2015, Additional history exists CKD PHOS USE SMARTSET 54702 01/09/201812/21, 04/11/2016, 09/22/2014 CKD URINE PROTEIN/CREATININE RATION OR URINE MICROALBUMIN YEARLY USE SMARTSET 80672 01/09/2018 01/09/2017, 04/11/2016, 12/03/2013 DIABETES SCREEN EVERY [...] Implants Not on fileas of this encounter Insurance Payer Benefit Plan / Group Subscriber ID Type Phone Address MEDICARE REPLACEMENT [employer] PPO [id number] Medicar e as of this encounter
--- OUTSIDE RECORDS SUMMARY | 2023-01-22 23:04 | External Medical Summary | Summary of Care ---
Author Name Unknown Organization [place] [address] Phone Care Team Providers Care Bin Worker Name Role Phone AntioneBj barron Primary Care Provider [phone] Reason for Visit * Reason Comments TEST RESULTS Encounter Details Date Type Department Care Team Description 10/04/2017 Telephone General Internal Medicine [facility] [address] [place], [place] [id number] Maury Higgins MD [address] [place], [place] [id number] TEST RESULTS Allergies No Known Allergiesas of this encounter Medications Prescription Sig. Disp. 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 In the morning 31 Tab 5 08/14/2017 Active rOPINIRole (REQUIP) 0.25 MG TabletIndications:Re stless legs syndrome Take 1 Tab by mouth at bedtime. 30 Tab 5 09/06/2017 Active lisinopril (PRINIVIL) 20 MG Tablet Take 1 Tab by mouth daily. 30 Tab 5 10/04/2017 Active lisinopril (PRINIVIL) 10 MG TabletIndications:HT N, goal below 140/90 Take 1 Tab by mouth daily. 90 Tab 3 12/06/2016 8 Discontinued as of this encounter Active [...] the right knee replacement Right leg DVT ([facility]) 03/05/2014 09/08/2016 Warfarin anticoagulation 03/05/2014 [...] t, with Preserve, 3yr & Above, Split 03/10/2014,04/25/2013,03/20/2012,1012/2010,02/17/2010,02/04/2009,04/28/20 08,03/30/2007,02/22/2007,03/01/2006,1 ,03/12/2002 TD, Preservative Free 04/21/2012,04/28/2008 Varicella Zoster Vaccine (Adult) 06/11/2008 as of this encounter Social History Tobacco Use Types Packs/Day Years Used Date Never Smoker Smokeless Tobacco: Never Used Alcohol Use Drinks/Week oz/Week Comments Yes occ Sex Assigned at Date Recorded Not on file as of this encounter Miscellaneous Notes * Telephone Encounter - Avery Charmaine YESENIA Graham - 10/04/2017 9:34 AM EDT Pt aware/verbalized understanding/will comply. New script for lisinopril pended. Future BMP ordered. ----- Message from Maury Higgins MD sent at 10/02/2017 6:38 PM EDT ----- Thyroid fine, gfr better. For her edema from 10/02/17 visit 1. Suggest increasing lisinopril to 20 mg daily given borderline bp - watch for cough, should checkbmp 1 month dx htn to make sure kidney function stable on med (rare chance it can get worse) 2. Reduce salt, raise legs 3. Let us know if edema worsens, sob, cancino, or new symptoms 4. It was nice meeting her Dr. Fabiano JOINER in this encounter Plan of Treatment Upcoming Encounters Date Type Specialty Care Team Description 12/20/2017 Office Visit Family Practice Bj Mario, DO [address] [place] [address] [phone] 02/14/2018 Office Visit Cardiology Yvon Harris PA-C [address] [facility] [place] [address] [phone] 03/14/2018 Office Visit Family Practice Bj Mario DO [address] [place] [address] [phone] Scheduled Tests Name Priority Associated Diagnoses Order S chedule BASIC METAB PANEL, BMP Routine HTN (hypertension) Expected: 11/04/2017 (Approximate), Expires: 10/04/2018 Health Maintenance Due Date Last Done Comments DTaP,Tdap,and Td Vaccines (1 - Tdap) 04/22/2012 04/21/2012, 04/28/2008 CKD HGB USE SMARTSET 44509 07/25/201707/25, 04/11/2016, 10/12/2015, Additional history exists *LDL AFTER STARTING A STATIN 10/03/2017 CKD PHOS USE SMARTSET 61434 01/09/2018 08/2 05/2016, 04/11/2016, 09/22/2014 CKD URINE PROTEIN/CREATININE RATION OR URINE MICROALBUMIN YEARLY USE SMARTSET 25208 01/09/2018 01/09/2017, 04/11/2016, 12/03/2013 CKD GFR USE SMARTSET 40192 04/04/201810/02, 01/09/2017, 07/25/2016, Additional history exists DIABETES [...] fileas of this encounter Visit Diagnoses Diagnosis HTN (hypertension) - Primary Unspecified essential hypertension in this encounter
--- OUTSIDE RECORDS SUMMARY | 2023-01-22 23:04 | External Medical Summary ---
Author Name Unknown Address [facility] [address] [place] [id number] Phone Organization K01:[place] [address] [address] [place] [id number] Laboratory Report Ordering Provider Test Date Status HECTOR CELIS 10/02/2017 13:29:00 Final Observation Date Value Abnormality Reference Status TSH 10/02/2017 18:30 3.36 0.27-4.2 Fin al Performing Location [address] [address]
--- OUTSIDE RECORDS SUMMARY | 2023-01-22 23:04 | External Medical Summary | Summary of Care ---
Author Name Unknown Organization [place] [address] Phone Care Team Providers Care Nut Cracker Name Role Phone Bj Mario Primary Care Provider Encounter Details Date Type Department Care Team Description 09/12/2017 Scan Encounter Unspecified Department <No scans attached> [...] metoprolol succinate XL (TOPROL XL) 25 MG [id number]:Chroni c ischemic heart disease Take 0.5 Tabs [...] Active isosorbide mononitrate SA (IMDUR) 30 MG [id number]:Chest heaviness Take 1 Tab by mouth daily. [...] the mid RCA at [facility] Kidney disease, chronic, stage III (GFR [...] Specialty Care Team Description 09/27/2017 Imaging Radiology [facility] [address] [place] [address] [phone] Prep, [facility] [address] [place] [address] [phone] 02/14/2018 Office Visit Cardiology Yvon Harris PA-C [address] [place] [address] [phone] 03/14/2018 Office Visit Family Practice Bj Mario, DO [address] [facility] [address] [phone] Health Maintenance Due Date Last Done Comments DTaP,Tdap,and Td Vaccines (1 - Tdap) 04/22/2012 04/21/2012, 04/28/2008 CKD GFR USE SMARTSET 86856 07/12/201701/09, 07/25/2016, 04/11/2016, Additional history exists CKD HGB USE SMARTSET 23072 07/25/201707/25, 04/11/2016, 10/12/2015, Additional history exists CKD PHOS USE SMARTSET 15154 01/09/201812/21, 04/11/2016, 09/22/2014 CKD URINE PROTEIN/CREATININE RATION OR URINE MICROALBUMIN YEARLY USE SMARTSET 26787 01/09/2018 01/09/2017, 04/11/2016, 12/03/2013 DIABETES SCREEN EVERY [...] Type Phone Address MEDICARE REPLACEMENT [employer] PPO [id number] Medicar e as of this encounter
--- OUTSIDE RECORDS SUMMARY | 2023-01-22 23:04 | External Medical Summary | Summary of Care ---
Author Name Unknown Organization [place] [address] Phone Care Team Providers Care Amusement Ride Inspector Name Role Phone Bj Mario Primary Care Provider Encounter Details Date Type Department Care Team Description 10/03/2017 Scan Encounter Unspecified Department <No scans attached> [...] metoprolol succinate XL (TOPROL XL) 25 MG [id number]:Chroni c ischemic heart disease Take 0.5 Tabs by mouth daily. 31 Tab 5 09/07/2016 Active rosuvastatin (CRESTOR) 20 MG TabletIndications:Dysl ipidemia, [...] Active isosorbide mononitrate SA (IMDUR) 30 MG [id number]:Chest heaviness Take 1 Tab by mouth daily. [...] mid RCA at [facility] Kidney disease, chronic, stage III (GFR 30-59 ml/min) 08/04/2014 Overview: Per CKD protocol #1 Carotid stenosis, non-symptomatic 2014 Raynaud phenomenon 06/13/2011 Knee joint replacement status 01/13/2011 Overview: 2013, right [facility] Ricardo [facility] [...] Encounters Date Type Specialty Care Team Description 10/09/2017 Office Visit Cardiology Yvon Harris PA-C [address] [facility] [place] [address] [phone] 12/20/2017 [facility] Visit [facility] DO [address] [facility] [address] [phone] 02/14/2018 Office Visit Cardiology Yvon Harris PA-C [address] [facility] [place] [address] [phone] 03/14/2018 Office Visit Family Practice Bj Mario, DO [address] [place] [address] [phone] Health Maintenance Due Date Last Done Comments DTaP,Tdap,and Td Vaccines (1 - Tdap) 04/22/2012 04/21/2012, 04/28/2008 CKD HGB USE SMARTSET 28836 07/25/201707/25, 04/11/2016, 10/12/2015, Additional history exists *LDL AFTER STARTING A STATIN 10/03/2017 CKD PHOS USE SMARTSET 62856 01/09/201812/21, 04/11/2016, 09/22/2014 CKD URINE PROTEIN/CREATININE RATION OR URINE MICROALBUMIN YEARLY USE SMARTSET 48846 01/09/2018 01/09/2017, 04/11/2016, 12/03/2013 CKD GFR USE SMARTSET 04289 04/04/201810/02, 01/09/2017, 07/25/2016, Additional history exists DIABETES [...]
--- OUTSIDE RECORDS SUMMARY | 2023-01-22 23:04 | External Medical Summary | Summary of Care ---
Author Name Unknown Organization [place] [address] Phone Care Team Providers Care Furniture Installer Name Role Phone AntioneBj barron Primary Care Provider [phone] Reason for Visit * Reason Comments EDEMA to both feet - for t he past 2-3 weeks; pt states she can't recall having swelling before Encounter Details Date Type Department Care Team Description 10/02/2017 Office Visit [facility] [address] [place] [address] Maury Higgins MD [address] [place] [address] [phone] Edema, unspecified type*;Benign hypertension with CKD (chronic [...] metoprolol succinate XL (TOPROL XL) 25 MG [id number]:Chroni c ischemic heart disease Take 0.5 Tabs [...] Active isosorbide mononitrate SA (IMDUR) 30 MG SJ43Uoibmmocywy:Chest heaviness Take 1 Tab by mouth daily. [...] in the mid RCA at [facility] Kidney disease, chronic, stage III (GFR 30-59 ml/min) 08/04/2014 Overview: Per CKD protocol #1 Carotid stenosis, non-symptomatic 2014 Raynaud phenomenon 06/13/2011 Knee joint replacement status 01/13/2011 Overview: 2013, right Dr Ricardo [facility] 2011: left Dr Priya Ricardo [facility] Dyslipidemia, goal LDL below 70 09/21/19 11 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 neurogenic claudication 02/17/2010 Vitamin D deficiency 10/13/2009 Chronic ischemic heart disease 0 S/P angioplasty with stent 06/30/2009 Overview: 07/01/2009 DUS in the RCA at [facility] Non-toxic multinodular goiter 04/21/2009 Overview: seen [...] vein thrombosis of right lower extrem ity ([facility]) 03/05/2014 09/08/2016 Overview: Occurred after the right knee replacement Right leg DVT ([facility]) 03/05/2014 09/08/2016 Warfarin anticoagulation 03/05/2014 015 [...] or oregano. Onions, garlic, mushrooms, or tomatoes. [place], lemon, jena juice, or wine. Here are some other great suggestions: If you use canned products, use the low-salt types. Rinse canned vegetables with tap water before cooking. Use unsalted margarine instead of regular margarine or butter. Eat tuna and salmon. Rinse first with running water. Take care of yourself. Find out more about eating healthy foods. You can: Go to the library. Call the [employer] [place] [employer] ( ). Ask your health [...] will lower your blood pressure. Developed by [employer]. Published by [employer]. Last modified: 2004-09-24 Last reviewed: 2004-08-09 This content is reviewed periodically and is subject to change as new health information becomes available. The information is intended to inform and educate and is not a replacement for medical evaluation, advice, diagnosis or treatment by a healthcare professional. Women's Health Advisor 2004.2 Index Women's Health Advisor 2004.2 Credits Copyright 2005 [employer] and/or one of its subsidiaries. All Rights [...] Prehypertensive Too High Top (systolic) Below 120 826494 140 or higher Bottom (diastolic) Below 80 8089 90 or higher 3084-2654 [employer], [address] [place] [address], [place] [address]. All rights reserved. 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 2000, left 1992 HTN, goal below 140/90 Knee joint replacement status 01/13/[address] Priya Ricardo [facility] Knee joint replacement status 12/15/2013 right [facility] Macular degeneration Ugo Simon MD Menopause 1974 Need for prophylactic hormone replacement therapy (postmenopausal) 1974 Non-toxic multinodular goiter 04/2009 seen on US, repeat -10/2009 Other screening mammogram 10/24/03 Birad Code 2 Other specified glaucoma both eyes, Paul Simon MD, drops used, timolol S/P angioplasty with stent 06/30/09 [facility] Status post insertion of drug eluting coronary artery stent 04/07/20152009, DUS placed in the mid RCA at [facility] Vitamin D deficiency 10/13/2009 Past Surgical History: Procedure Laterality Date ARTHROPLASTY KNEE TOTAL Left 01/13/2011 Left, Dr Priya Ricardo [facility] ARTHROPLASTY KNEE TOTAL Right 12/16/13 Right, Dr Priya Ricardo [facility] CARDIAC CATH SCANNED RESULT 06/30/2009 DUS placed in right coronary, [facility] CARPAL TUNNEL SURGERY Bilateral 2014 bilateral COLONOSCOPY 03/22/2006 normal repeat in 2016 COLONOSCOPY, DIAGNOSTIC (RECTUM) 09/01/2016 diverticulosis/COLONOSCOPY FLEXIBLE PROXIMAL DIAGNOSTIC performed by Kaylie Ford MD at [facility] COLONOSCOPY, GI REFERRAL OP 03/22/2005 diverticulosis, repeat [...] ovary left in, Dr Chakraborty in [facility] REMOVE CATARACT, INSERT LENS PROSTH Right 01/05/[address] Messi Simon REMOVE CATARACT, INSERT LENS PROSTH Left 01/28/[address] Messi Simon STENT, COATED/COVERED, WITH DELIVERY SYSTEM 06/30/2009 [employer] Drug Eluding Stent [facility] TOTAL HIP REPLACEMENT & PROSTHESIS 1992 left, Dr Ricardo TOTAL HIP REPLACEMENT & PROSTHESIS 10/2000 right , Dr Ricardo at [facility] Family History Problem Relation Age of Onset Cancer Mother cancer of bone Lung Disorder Father old age with heart failure Heart Disorder Brother MD at age 62 Heart Disorder Brother angina [...] recall having swelling before in this encounter Plan of Treatment Upcoming Encounters Date Type Specialty Care Team Description 12/20/2017 Office Visit Family Practice Bj Mario DO [address] [facility] [address] [phone] 02/14/2018 Office Visit Cardiology Yvon Harris PA-C [address] [facility] [place] [address] [phone] 03/14/2018 Office Visit Family Practice Bj Mario DO [address] [place] [address] [phone] Scheduled Tests Name Priority Associated Diagnoses Order [...] 04/22/2012 04/21/2012, 04/28/2008 CKD GFR USE SMARTSET 16184 07/12/201701/09, 07/25/2016, 04/11/2016, Additional history exists CKD HGB USE SMARTSET 89190 07/25/201707/25, 04/11/2016, 10/12/2015, Additional history exists CKD PHOS USE SMARTSET 88174 01/09/201812/21, 04/11/2016, 09/22/2014 CKD URINE PROTEIN/CREATININE RATION OR URINE MICROALBUMIN YEARLY USE SMARTSET 35091 01/09/2018 01/09/2017, 04/11/2016, 12/03/2013 DIABETES SCREEN EVERY [...]
--- OUTSIDE RECORDS SUMMARY | 2023-01-22 23:04 | External Medical Summary | Summary of Care ---
Author Name Unknown Organization [place] [address] Phone Care Team Providers Care Dispatcher Automobile Rental Name Role Phone Bj Mario Primary Care Provider [phone] Reason for Referral * Precert (Routine) Status Reason Specialty Diagnoses / Procedures Referred By Contact Referred To Contact Closed Precert Cardiac Studies Diagnoses Chest heaviness Procedures ECHO, STRESS (DOBUTAMINE) Yvon Harris PA-C [address] [place] [address] Reason for Visit * Reason Comments Cardiology Study Dobutamine * Precert (Routine) Status Reason Specialty Diagnoses / Procedures Referred By Contact Referred To Contact Closed Precert Cardiac Studies Diagnoses Chest heaviness Procedures ECHO, STRESS (DOBUTAMINE) Yvon Harris PA-C [address] [place] [address] Encounter Details Date Type Department Care Team Description 08/28/2017 Cardiac Studies Cardiac Studies, [facility] [address] [place] [address] Gw, Tool Room Supervisor [address] [place] [address] [phone] Chest heaviness* Allergies No Known Allergiesas of this encounter [...] metoprolol succinate XL (TOPROL XL) 25 MG OZ67Muzwfvoglts:Chroni c ischemic heart disease Take 0.5 Tabs by mouth daily. 31 Tab 5 09/07/2016 Active lisinopril (PRINIVIL) 10 MG TabletIndications:HTN, goal below 140/90 Take 1 Tab by mouth daily. 90 Tab 3 12/06/2016 Active rosuvastatin (CRESTOR) 20 MG TabletIndications:Dysl ipidemia, goal LDL below 70 take 1 tablet by mouth once daily 31 Tab 5 04/10/2017 Active PredniSONE (DELTASONE) 20 MG TabletIndications:Gimp Tacker jose alberto left-sided low back pain with [...] Active isosorbide mononitrate SA (IMDUR) 30 MG CH65Vcrhshhoabv:Chest heaviness Take 1 Tab by mouth daily. In the morning 31 Tab 5 08/14/2017 Active as of this encounter Active Problems Problem Noted Date History of deep vein thrombosis (DVT) of lower extremity 09/08/2016 Status post insertion of drug eluting co ronary artery stent 04/07/2015 Overview: 2009, DUS placed in the mid RCA at [facility] Kidney disease, chronic, stage III (GFR 30-59 [...] as of this encounter Progress Notes * Aden Hardy TECH - 08/28/2017 11:28 AM EDT Patient arrived in echo lab and identified by name and date of . Procedure and risk factors explained and questions answered. Informed consent obtained. IV site created with #22 gauge in right antecubital area at 10:45 with one Attempt(s) made. Catheter capped and flushed with 1cc of NSS. NSS lock discontinued at 11:07 post Dobutamine Stress Echo, IV site unremarkable with dressing dry and intact. IV Dobutamine 250mg/250ml infused using the established protocol. See final report. Dobutamine Stress echo completed today without incident. Vital Signs stable and patient denies chest pain, chest discomfort or shortness of breath. Additional medications given during Dobutamine Stress Echo: Dobutamine [facility] 2120-4611-34; Lot [id number]; Exp. [id number]; Metoprolol [facility] 63148-532-59; Lot [id number]; Exp. 2019-03; Atropine [facility] 7972-8510-26; Lot [id number]; Exp. [id number]; Metoprolol 3.0 mg IV given; 2.0 ml (2.0) mg wasted from single-use vial Atropine 0.3 mg IV given; 7.0 ml (0.7 mg) wasted from single-use syringe in this encounter Plan of Treatment Upcoming Encounters Date Type Specialty Care Team Description 09/06/2017 Office Visit Family Practice Bj Mario, DO [address] [place] [address] [phone] 02/14/2018 Office Visit [facility]C [facility] [place] [address] [phone] Health Maintenance Due Date Last Done Comments DTaP,Tdap,and Td Vaccines (1 - Tdap) 04/22/2012 04/21/2012, 04/28/2008 CKD GFR USE SMARTSET 44916 07/12/201701/09, 07/25/2016, 04/11/2016, Additional history exists CKD HGB USE SMARTSET 09773 07/25/201707/25, 04/11/2016, 10/12/2015, Additional history exists CKD PHOS USE SMARTSET 48305 01/09/201812/21, 04/11/2016, 09/22/2014 CKD URINE PROTEIN/CREATININE RATION OR URINE MICROALBUMIN YEARLY USE SMARTSET 73104 01/09/2018 01/09/2017, 04/11/2016, 12/03/2013 DIABETES SCREEN EVERY [...] fileas of this encounter Visit Diagnoses Diagnosis Chest heaviness - Primary Other chest pain in this encounter Insurance Payer Benefit Plan / Group Subscriber ID Type Phone Address MEDICARE REPLACEMENT [employer] PPO [id number] Medicar e as of this encounter
--- OUTSIDE RECORDS SUMMARY | 2023-01-22 23:04 | External Medical Summary | Summary of Care ---
Author Name Unknown Organization [place] [address] Phone Care Team Providers Care Compensation Analyst Name Role Phone Bj Mario Primary Care Provider [phone] Reason for Referral * Precert (Routine) Status Reason Specialty Diagnoses / Procedures Referred By Contact Referred To Contact Closed Precert Cardiac Studies Diagnoses Chest heaviness Procedures ECHO, STRESS (DOBUTAMINE) Yvon Harris PA-C [address] [place] [address] Reason for Visit * Reason Comments Cardiology Study Dobutamine * Precert (Routine) Status Reason Specialty Diagnoses / Procedures Referred By Contact Referred To Contact Closed Precert Cardiac Studies Diagnoses Chest heaviness Procedures ECHO, STRESS (DOBUTAMINE) Yvon Harris PA-C [address] [place] [address] Encounter Details Date Type Department Care Team Description 08/28/2017 Cardiac Studies Cardiac Studies, [facility] [address] [place] [address] Gw, Firesetter [address] [place] [address] [phone] Chest heaviness* Allergies No Known Allergiesas of [...] metoprolol succinate XL (TOPROL XL) 25 MG KQ41Qmpsgheiokj:Chroni c ischemic heart disease Take 0.5 Tabs by mouth daily. 31 Tab 5 09/07/2016 Active lisinopril (PRINIVIL) 10 MG TabletIndications:HTN, goal below 140/90 Take 1 Tab by mouth daily. 90 Tab 3 12/06/2016 Active rosuvastatin (CRESTOR) 20 MG TabletIndications:Dysl ipidemia, goal LDL below 70 take 1 tablet by mouth once daily 31 Tab 5 04/10/2017 Active PredniSONE (DELTASONE) 20 MG TabletIndications:Counselor Marriage And Family jose alberto left-sided low back pain with [...] Active isosorbide mononitrate SA (IMDUR) 30 MG GY97Orcsudknsju:Chest heaviness Take 1 Tab by mouth daily. In the morning 31 Tab 5 08/14/2017 Active as of this encounter Active Problems Problem Noted Date History of deep vein thrombosis (DVT) of lower extremity 09/08/2016 Status post insertion of drug eluting co ronary artery stent 04/07/2015 Overview: 2009, DUS placed in the mid RCA at [facility] Kidney disease, chronic, stage III (GFR 30-59 ml/min) 08/04/2014 Overview: Per CKD protocol #1 Carotid stenosis, non-symptomatic 2014 Raynaud phenomenon 06/13/2011 Knee joint replacement status 01/13/2011 Overview: 2014, right Dr Ricardo [facility] 2011: left Dr Priya Ricardo [facility] Dyslipidemia, goal LDL below 70 09/21/19 11 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 neurogenic claudication 02/17/2010 Vitamin D deficiency 10/13/2009 Chronic ischemic heart disease 0 S/P angioplasty with stent 06/30/2009 Overview: 07/01/2009 DUS in the RCA at [facility] Non-toxic multinodular goiter 04/21/2009 Overview: seen [...] Progress Notes * Yvon Harris PA-C - 08/28/2017 3:59 PM EDT ok * Aden Hardy TECH - 08/28/2017 11:28 [...] medications given during Dobutamine Stress Echo: Dobutamine [facility] 2134-7075-30; Lot [id number]; Exp. [id number]; Metoprolol [facility] 48127-278-90; Lot [id number]; Exp. 2019-03; Atropine [facility] 9435-0313-61; Lot [id number]; Exp. [id number]; Metoprolol 3.0 mg IV given; 2.0 ml (2.0) mg wasted from single-use vial Atropine 0.3 mg IV given; 7.0 ml (0.7 mg) wasted from single-use syringe in this encounter Plan of Treatment Upcoming Encounters Date Type Specialty Care Team Description 09/06/2017 Office Visit Family Practice Bj Mario DO [address] [place] [address] [phone] 02/14/2018 Office Visit Cardiology Yvon Harris PA-C [address] [facility] [place] [address] [phone] Health Maintenance Due Date Last Done Comments DTaP,Tdap,and Td Vaccines (1 - Tdap) 04/22/2012 04/21/2012, 04/28/2008 CKD GFR USE SMARTSET 44760 07/12/201701/09, 07/25/2016, 04/11/2016, Additional history exists CKD HGB USE SMARTSET 49707 07/25/201707/25, 04/11/2016, 10/12/2015, Additional history exists CKD PHOS USE SMARTSET 35374 01/09/201812/21, 04/11/2016, 09/22/2014 CKD URINE PROTEIN/CREATININE RATION OR URINE MICROALBUMIN YEARLY USE SMARTSET 14103 01/09/2018 01/09/2017, 04/11/2016, 12/03/2013 DIABETES SCREEN EVERY [...] on fileas of this encounter Results * ECHO, STRESS (DOBUTAMINE) (08/28/2017 10:02 AM) Specimen Performing Laborator y [facility] in this encounter Visit Diagnoses Diagnosis Chest heaviness - Primary Other chest pain in this encounter Insurance Payer Benefit Plan / Group Subscriber ID Type Phone Address MEDICARE REPLACEMENT [employer] PPO [id number] Medicar e as of this encounter
--- OUTSIDE RECORDS SUMMARY | 2023-01-22 23:04 | External Medical Summary | Summary of Care ---
Author Name Unknown Organization [place] [address] Phone Care Team Providers Care Admissions Officer Name Role Phone AntioneBj barron Primary Care Provider [phone] Reason for Visit * Reason Comments ADVICE Encounter Details Date Type Department Care Team Description 10/05/2017 Telephone Cardiology, [facility] [address] [facility] [place] [address] Yvon Harris PA-C [address] [facility] [place] [address] [phone] ADVICE Allergies No Known Allergiesas of this encounter Medications Prescription Sig. Disp. Refills Start Date End Date Status ASPIRIN 81 MG PO CHEW One pill by mouth once a day with food 100 5 08/06/2008 Active VITAMIN D 1000 UNIT PO CAPSIndications:Carmel min D deficiency 1 capsule daily 30 Cap 11 10/13/2009 Active NITROGLYCERIN 0.4 MG SL SUBLIndications:Squad Leader jose alberto ischemic heart disease 1 every [...] metoprolol succinate XL (TOPROL XL) 25 MG HL00Paeviapxkpz:Squad Leader jose alberto ischemic heart disease Take 0.5 [...] Active isosorbide mononitrate SA (IMDUR) 30 MG UU21Usghkkfncer:Ches t heaviness Take 1 Tab by mouth daily. In the morning 31 Tab 5 08/14/2017 Active rOPINIRole (REQUIP) 0.25 MG TabletIndications:Re stless legs syndrome Take 1 Tab by mouth at bedtime. 30 Tab 5 09/06/2017 Active lisinopril (PRINIVIL) 10 MG TabletIndications:Be nign hypertension with CKD (chronic kidney disease) stage III,Edema Take 1 Tab by mouth daily. 30 Tab 5 10/05/2017 Active lisinopril (PRINIVIL) 20 MG Tablet Take 1 Tab by mouth daily. 30 Tab 5 10/04/2017 8 Discontinued as of this encounter Active Problems Problem Noted Date Benign hypertension with CKD (chronic ki dney disease) stage III 09/06/2017 History of deep vein thrombosis (DVT) of lower extremity 09/08/2016 Status post insertion of drug eluting co ronary artery stent 04/07/2015 Overview: 2009, DUS placed in the mid RCA at [facility] Kidney disease, chronic, stage III (GFR [...] thrombosis of right lower extrem ity ([facility]) 03/05/2014 09/08/2016 Overview: Occurred after the right knee replacement Right leg DVT ([facility]) 03/05/2014 09/08/2016 Warfarin anticoagulation 03/05/2014 015 History [...] encounter Miscellaneous Notes * Telephone Encounter - GatesAnabelMaisha K, LPN - 10/05/2017 3:01 PM EDT Patient returned call. Informed of message below. Verbalized understanding. * Telephone Encounter - Anika Kelly LPN - 10/05/2017 2:23 PM EDT LMOM for pt to return call to [phone] for instruction from Yvon Harris PA-C. Medication and labs pended, if agreeable please route to provider. * Telephone Encounter - Yvon Harris PA-C - 10/05/2017 2:04 PM EDT Increase lisinopril from 5 mg per day to 10 mg per day. Check a basic metabolic panel in 2 to 3 weeks. Yvon Harris PA-C Department of Cardiology * Telephone Encounter - Carmen Srinivasan RN - 10/05/2017 1:52 PM EDT Lisinopril was raised by PCP to 20mg daily. Patient has only been taking 5 mg daily and is concerned this is too much and wants your opinion. Please advise * Telephone Encounter - Jessica Pagan OSA - 10/05/2017 9:16 AM EDT Patient calling in with a few concerns about her medications and dosages. Patient requested an appointment for today, nothing was available. Offered soonest appointment with Yvon Harris on 10/09. Patient accepted. Patient still has a few questions about her medications. Please advise patient at [phone]. in this encounter Plan of Treatment Upcoming Encounters Date Type Specialty Care Team Description 10/09/2017 Office Visit Cardiology Yvon Harris PA-C [address] [place] [address] [place] [address] [phone] 12/20/2017 Office Visit [facility] [address] [phone] 02/14/2018 Office Visit Cardiology Yvon Harris PA-C [address] [place] [address] [phone] 03/14/2018 Office Visit Family Medicine Bj Mario, DO [address] [place] [address] [phone] Scheduled Tests Name Priority Associated Diagnoses Order S chedule BASIC METAB PANEL, BMP Routine Benign hypertension with CKD (chronic kidney disease) stage III Edema Expected: 10/19/2017 (Approximate), Expires: 11/05/2018 Health Maintenance Due Date Last Done Comments DTaP,Tdap,and Td Vaccines (1 - Tdap) 04/22/2012 04/21/2012, 04/28/2008 CKD HGB USE SMARTSET 90939 07/25/201707/25, 04/11/2016, 10/12/2015, Additional history exists *LDL AFTER STARTING A STATIN 10/03/2017 CKD PHOS USE SMARTSET 23906 01/09/201812/21, 04/11/2016, 09/22/2014 CKD URINE PROTEIN/CREATININE RATION OR URINE MICROALBUMIN YEARLY USE SMARTSET 00735 01/09/2018 01/09/2017, 04/11/2016, 12/03/2013 CKD GFR USE SMARTSET 47600 04/04/201810/02, 01/09/2017, 07/25/2016, Additional history exists DIABETES [...] I through stage IV, or unspecified Edema in this encounter
--- OUTSIDE RECORDS SUMMARY | 2023-01-22 23:04 | External Medical Summary | Summary of Care ---
Author Name Unknown Organization [place] [address] Phone Care Team Providers Care Welder/Installer Name Role Phone Bj Mario Primary Care Provider Encounter Details Date Type Department Care Team Description 09/05/2017 Scan Encounter Unspecified Department <No scans attached> [...] metoprolol succinate XL (TOPROL XL) 25 MG AP57Gdzoufqztzu:Chroni c ischemic heart disease Take 0.5 Tabs [...] Active isosorbide mononitrate SA (IMDUR) 30 MG ML17Ezwaazcuygg:Chest heaviness Take 1 Tab by mouth daily. [...] mid RCA at [facility] Kidney disease, chronic, stage III (GFR 30-59 ml/min) 08/04/2014 Overview: Per CKD protocol #1 Carotid stenosis, non-symptomatic 2014 Raynaud phenomenon 06/13/2011 Knee joint replacement status 01/13/2011 Overview: 2013, right Dr Ricardo [facility] [...] 09/27/2017 Imaging Radiology [id number] [address] [place] [address] [phone] Prep, Gwm[facility] [address] [place] [address] [phone] 02/14/2018 Office Visit Cardiology Yvon Harris PA-C [address] [place] [address] [phone] 03/14/2018 Office Visit Family Practice Bj Mario, DO [address] [place] [address] [phone] Health Maintenance Due Date Last Done Comments DTaP,Tdap,and Td Vaccines (1 - Tdap) 04/22/2012 04/21/2012, 04/28/2008 CKD GFR USE SMARTSET 31842 07/12/201701/09, 07/25/2016, 04/11/2016, Additional history exists CKD HGB USE SMARTSET 00613 07/25/201707/25, 04/11/2016, 10/12/2015, Additional history exists CKD PHOS USE SMARTSET 03927 01/09/201812/21, 04/11/2016, 09/22/2014 CKD URINE PROTEIN/CREATININE RATION OR URINE MICROALBUMIN YEARLY USE SMARTSET 76119 01/09/2018 01/09/2017, 04/11/2016, 12/03/2013 DIABETES SCREEN EVERY [...] Type Phone Address MEDICARE REPLACEMENT [employer] PPO [id number] Medicar e as of this encounter
--- OUTSIDE RECORDS SUMMARY | 2023-01-22 23:04 | External Medical Summary | Summary of Care ---
Author Name Unknown Organization [place] [address] Phone Care Team Providers Care Outside Event Sales Specialist Name Role Phone Bj Mario DO Primary Care Provider Reason for Visit * Reason Comments TEST RESULTS Encounter Details Date Type Department Care Team Description 10/04/2017 Telephone Family Practice [facility] [address] [place] [address] Bj Mario DO [address] [place] [address] [phone] TEST RESULTS Allergies No Known Allergiesas of this encounter Medications Prescription Sig. Disp. 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 ischemic heart disease 1 every [...] metoprolol succinate XL (TOPROL XL) 25 MG [id number]:Agricultural Produce Commission Agent jose alberto ischemic heart disease Take 0.5 [...] Active isosorbide mononitrate SA (IMDUR) 30 MG [id number]:Ches t heaviness Take 1 Tab by mouth [...] DUS placed in the mid RCA at [facility] Kidney disease, chronic, stage III (GFR 30-59 ml/min) 08/04/2014 Overview: Per CKD protocol #1 Carotid stenosis, non-symptomatic 2014 Raynaud phenomenon 06/13/2011 Knee joint replacement status 01/13/2011 Overview: 2013, right Dr Ricardo [facility] 2011: left Dr Priya Ricardo [facility] Dyslipidemia, goal LDL below 70 09/21/19 11 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 neurogenic claudication 02/17/2010 Vitamin D deficiency 10/13/2009 Chronic ischemic heart disease 0 S/P angioplasty with stent 06/30/2009 Overview: 07/01/2009 DUS in the RCA at [facility] Non-toxic multinodular goiter 04/21/2009 [...] the right knee replacement Right leg DVT ([facility]) 03/05/2014 09/08/2016 Warfarin anticoagulation 03/05/2014 015 History [...] Miscellaneous Notes * Telephone Encounter - Bj Mario, - 10/04/2017 3:46 PM EDT That's fine * Telephone Encounter - Loretta Root, TYPE PROOF REPRODUCER - 10/04/2017 3:12 PM EDT Patient made aware of below. States she is unsure what course she wants to take. Says she has been going to a chiropractor and using a decompression table there which has helped a little bit. She said she may want to wait and see if it continues to help or not and then decide if she wants to proceed with seeing a specialist to discuss further options. MARISEL Mario. * Telephone Encounter - Bj Mario, - 10/04/2017 2:55 PM EDT Please call patient: Her MRI shows multiple levels of moderate to severe stenosis of her spine. This means that her nerves are getting pressed on and causing pain. Please ask if she is willing to go see someone to discuss injection or surgery? in this encounter Plan of Treatment Upcoming Encounters Date Type Specialty Care Team Description 12/20/2017 Office Visit Family Practice Bj Mario DO [address] [place] [address] [phone] 02/14/2018 Office Visit Cardiology Yvon Harris PA-C [address] [facility] [place] [address] [phone] 03/14/2018 Office Visit Family Practice Bj Mario DO [address] [place] [address] [phone] Health Maintenance Due Date Last Done Comments DTaP,Tdap,and Td Vaccines (1 - Tdap) 04/22/2012 04/21/2012, 04/28/2008 CKD HGB USE SMARTSET 06423 07/25/201707/25, 04/11/2016, 10/12/2015, Additional history exists *LDL AFTER STARTING A STATIN 10/03/2017 CKD PHOS USE SMARTSET 25463 01/09/201812/21, 04/11/2016, 09/22/2014 CKD URINE PROTEIN/CREATININE RATION OR URINE MICROALBUMIN YEARLY USE SMARTSET 34050 01/09/2018 01/09/2017, 04/11/2016, 12/03/2013 CKD GFR USE SMARTSET 60288 04/04/201810/02, 01/09/2017, 07/25/2016, Additional history exists DIABETES [...]
--- OUTSIDE RECORDS SUMMARY | 2023-01-22 23:04 | External Medical Summary ---
Author Name Unknown Address [address] [place] [address] Phone Organization K09:[facility] [address] [place] [address] Laboratory Report Ordering Provider Test Date Status HECTOR CELIS 10/02/2017 13:29:00 Final Observation Date Value Abnormality Reference Status BUN 10/02/2017 15:02 25 Above high normal 6-20 Final Creatinine 10/02/2017 15:02 1.1 Above high normal 0.5- 1.0 Final Performing Location [facility] [place] [address] [place] [address]
--- OUTSIDE RECORDS SUMMARY | 2023-01-22 23:04 | External Medical Summary | Summary of Care ---
Author Name Unknown Organization [place] [address] Phone Care Team Providers Care Night Manager Name Role Phone Bj Mario Primary Care Provider [phone]- [phone] Encounter Details Date Type Department Care Team Description 08/25/2017 Scan Encounter Unspecified Department <No scans attached> [...] metoprolol succinate XL (TOPROL XL) 25 MG [id number]:Chroni c ischemic heart disease Take 0.5 Tabs by mouth daily. 31 Tab 5 09/07/2016 Active lisinopril (PRINIVIL) 10 MG TabletIndications:HTN, goal below 140/90 Take 1 Tab by mouth daily. 90 Tab 3 12/06/2016 Active rosuvastatin (CRESTOR) 20 MG TabletIndications:Dysl ipidemia, goal LDL below 70 take 1 tablet by mouth once daily 31 Tab 5 04/10/2017 Active PredniSONE (DELTASONE) 20 MG TabletIndications:Bpm Architect jose alberto left-sided low back pain with [...] Active isosorbide mononitrate SA (IMDUR) 30 MG [id number]:Chest heaviness Take 1 Tab by mouth daily. In the morning 31 Tab 5 08/14/2017 Active as of this encounter Active Problems Problem Noted Date History of deep vein thrombosis (DVT) of lower extremity 09/08/2016 Status post insertion of drug eluting co ronary artery stent 04/07/2015 Overview: 2009, DUS placed in the mid RCA at [facility] Kidney disease, chronic, stage III (GFR 30-59 ml/min) 08/04/2014 Overview: Per CKD protocol #1 Carotid stenosis, non-symptomatic 2014 Raynaud phenomenon 06/13/2011 Knee joint replacement status 01/13/2011 Overview: 2014, right Dr Ricardo [facility] 2011: left Dr Priya Ricardo [facility] Dyslipidemia, goal LDL below 70 09/21/19 11 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 neurogenic claudication 02/17/2010 Vitamin D deficiency 10/13/2009 Chronic ischemic heart disease 0 S/P angioplasty with stent 06/30/2009 Overview: 07/01/2009 DUS in the RCA at [facility] Non-toxic multinodular goiter 04/21/2009 Overview: [...] Care Team Description 09/06/2017 Office Visit Family [facility] Bj Mario, DO [address] [place] [address] [phone] 02/14/2018 Office Visit Cardiology Yvon Harris PA-C [address] [facility] [place] [address] [phone] Health Maintenance Due Date Last Done Comments DTaP,Tdap,and Td Vaccines (1 - Tdap) 04/22/2012 04/21/2012, 04/28/2008 CKD GFR USE SMARTSET 96956 07/12/201701/09, 07/25/2016, 04/11/2016, Additional history exists CKD HGB USE SMARTSET 00048 07/25/201707/25, 04/11/2016, 10/12/2015, Additional history exists CKD PHOS USE SMARTSET 08979 01/09/201812/21, 04/11/2016, 09/22/2014 CKD URINE PROTEIN/CREATININE RATION OR URINE MICROALBUMIN YEARLY USE SMARTSET 49035 01/09/2018 01/09/2017, 04/11/2016, 12/03/2013 DIABETES SCREEN EVERY [...] Type Phone Address MEDICARE REPLACEMENT [employer] PPO [id number] Medicar e as of this encounter
--- OUTSIDE RECORDS SUMMARY | 2023-01-22 23:04 | External Medical Summary | Summary of Care ---
Author Name Unknown Organization [place] [address] Phone Care Team Providers Care Nut Threader Name Role Phone Bj Mario DO Primary Care Provider Reason for Visit * Reason Comments OTHER Fax Encounter Details Date Type Department Care Team Description 10/03/2017 Telephone Family Practice [facility] [address] [place] [address] Bj Mario [address] [place] [address] [phone] OTHER (Fax) Allergies No Known Allergiesas of this encounter [...] metoprolol succinate XL (TOPROL XL) 25 MG [id number]:Chroni c ischemic heart disease Take 0.5 Tabs [...] Active isosorbide mononitrate SA (IMDUR) 30 MG QX36Vvwvkrrhlnu:Chest heaviness Take 1 Tab by mouth daily. [...] mid RCA at [facility] Kidney disease, chronic, stage III [...] the right knee replacement Right leg DVT ([facility]) 03/05/2014 09/08/2016 Warfarin anticoagulation 03/05/2014 015 [...] Miscellaneous Notes * Telephone Encounter - Leidy Nieto, ALESHA - 10/03/2017 10:11 AM EDT Faxed [place] to [place] [facility] Patient was there and waiting to be treated. in this encounter Plan of Treatment Upcoming Encounters Date Type Specialty Care Team Description 12/20/2017 Office Visit [facility] Bj Mario, DO [address] [place] [address] [phone] 02/14/2018 Office Visit Cardiology Yvon Harris PA-C [address] [facility] [place] [address] [phone] 03/14/2018 Office Visit [facility] Bj Mario, DO [address] [place] [address] [phone] Health Maintenance Due Date Last Done Comments DTaP,Tdap,and Td Vaccines (1 - Tdap) 04/22/2012 04/21/2012, 04/28/2008 CKD HGB USE SMARTSET 01021 07/25/201707/25, 04/11/2016, 10/12/2015, Additional history exists *LDL AFTER STARTING A STATIN 10/03/2017 CKD PHOS USE SMARTSET 46177 01/09/2018 08/05/2016, 04/11/2016, 09/22/2014 CKD URINE PROTEIN/CREATININE RATION OR URINE MICROALBUMIN YEARLY USE SMARTSET 45345 01/09/2018 01/09/2017, 04/11/2016, 12/03/2013 CKD GFR USE SMARTSET 53856 04/04/201810/02, 01/09/2017, 07/25/2016, Additional history exists DIABETES [...]
--- OUTSIDE RECORDS SUMMARY | 2023-01-22 23:05 | External Medical Summary ---
Author Name Unknown Address [address] [place] [address] Phone Organization K09:[facility] [address] [place] [address] Laboratory Report Ordering Provider Test Date Status NHIANIVAL 01/09/2017 09:51:00 Final Observation Date Value Abnormality Reference Status BUN 01/09/2017 11:09 30 Above high normal 6-20 Final Creatinine 01/09/2017 11:09 1.3 Above high normal 0.5- 1.0 Final Performing Location [facility] [place] [address] [place] [address]
--- OUTSIDE RECORDS SUMMARY | 2023-01-22 23:05 | External Medical Summary | Summary of Care ---
Author Name Unknown Organization [place] [address] Phone Care Team Providers Care Waterway Traffic Checker Name Role Phone AntioneBj braron Primary Care Provider [phone]- [phone] Reason for Visit * Reason Comments eRx-Medication Refill Encounter Details Date Type Department Care Team Description 04/08/2017 Refill Cardiology, [facility] [place] [address] Yvon Harris PA-C [address] [place] [address] [phone] Dyslipidemia, goal LDL below 70 Allergies No Known Allergiesas of this encounter Medications Prescription Sig. Disp. 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 30 Tab 5 04/11/2016 Active metoprolol succinate XL (TOPROL XL) 25 MG [id number]:Library Helper jose 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 31 Tab 5 09/07/2016 Active lisinopril (PRINIVIL) 10 MG TabletIndications:HT N, goal below 140/90 Take 1 Tab by mouth daily. 90 Tab 3 12/06/2016 Active rosuvastatin (CRESTOR) 20 MG TabletIndications:Dy slipidemia, goal LDL below 70 take 1 tablet by mouth once daily 31 Tab 5 04/10/2017 Active rosuvastatin (CRESTOR) 20 MG TabletIndications:Dy slipidemia, goal LDL below 70 Take 1 Tab by mouth daily. 31 Tab 5 09/07/2016 7 Discontinued as of this encounter Active Problems Problem Noted Date History of deep vein thrombosis (DVT) of lower extremity 09/08/2016 Prophylactic antibiotic 07/09/2015 Status post insertion of drug eluting co ronary artery stent 04/07/2015 Overview: 2009, DUS placed in the mid RCA at [facility] Kidney disease, chronic, stage III (GFR 30-59 ml/min) 08/04/2014 Overview: Per CKD protocol #1 Carotid stenosis, non-symptomatic 2014 History of bilateral hip replacements Raynaud phenomenon 06/13/2011 Knee joint replacement status 01/13/2011 Overview: 2014, right Dr Ricardo [facility] 2011: left Dr Priya Ricardo [facility] Dyslipidemia, goal LDL below 70 09/21/19 11 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 neurogenic claudication 02/17/2010 Vitamin D deficiency 10/13/2009 Chronic ischemic heart disease 0 Primary open angle glaucoma 08/17/2009 S/P angioplasty with stent 06/30/2009 Overview: 07/01/2009 DUS in the RCA at [facility] Non-toxic multinodular goiter 04/21/2009 Overview: seen on US, repeat -10/2009 HTN, goal below 140/90 05/25/2006 SCREEN CANCER - COLON 02/06/2006 Advance directive on file 01/19/2005 Overview: No, Advance Directive brochure given to patient. Prophylactic antibiotic 01/19/2005 Hip joint replacement status 01/19/2005 Overview: right 2000, left 1992 Need for prophylactic hormone replacemen t therapy (postmenopausal) 06/13/2001 Menopause Macular degeneration Overview: Ugo Simon MD Glaucoma of both eyes Overview: Paul Simon MD, drops used bilateral Both cataracts also as of this encounter Resolved Problems Problem Noted Date Resolved Date Acute deep vein thrombosis of right lower extrem ity (HCC) 03/05/2014 09/08/2016 Overview: Occurred after the right knee replacement Right leg DVT ([facility]) 03/05/2014 09/08/2016 Warfarin anticoagulation 03/05/2014 015 Chest pain 06/23/2009 08/17/2009 ELEV BL PRES W-O HYPERTN 06/13/2001 007 [...] Encounters Date Type Specialty Care Team Description 08/09/2017 Office Visit Family Practice Bj Mario DO [address] [place] [address] [phone] 08/14/2017 Office Visit Cardiology Yvon Harris PA-C [address] [place] [address] [phone] Studies, Nurse Arrival Cardiac, RN [address] [place] [address] [phone] Health Maintenance Due Date Last Done Comments CKD GFR USE SMARTSET 43113 07/12/201701/09, 07/25/2016, 04/11/2016, Additional history exists CKD PHOS USE SMARTSET 20611 07/12/201712/21, 04/11/2016, 09/22/2014 CKD HGB USE SMARTSET 65356 07/25/201707/25, 04/11/2016, 10/12/2015, Additional history exists CKD URINE PROTEIN/CREATININE RATION OR URINE MICROALBUMIN YEARLY USE SMARTSET 24523 01/09/2018 01/09/2017, 04/11/2016, 12/03/2013 DIABETES SCREEN EVERY 3 YRS- AGE 45 AND ABOVE 01/10/2020 01/09/2017, 07/25/2016, 04/11/2016, Additional history exists DXA-SCREENING EVERY 7 YRS-US E SMARTSET# 3348 TO ORDER 10/30/2020 10/30/2013, 10/30/2013, 08/24/2009, Additional history exists TETANUS EVERY 10 YEARS-TDAP (BOOSTRIX OR ADACEL) SUGGESTED IF NOT RECEIVED IN THE PAST. 04/21/2022 04/21/2012, 04/28/2008 PNEUMOCOCCAL ADULT 65 YRS AND OVER Completed 2014, 03/12/2002 Influenza Vaccine (FLU shot) Completed 06/2016, 04/11/2016, 04/06/2015, Additional history exists as of this encounter Implants Not on fileas of this encounter Visit Diagnoses Diagnosis Dyslipidemia, goal LDL below 70 Other and unspecified hyperlipidemia in this encounter Insurance Payer Benefit Plan / Group Subscriber ID Type Phone Address MEDICARE REPLACEMENT [employer] PPO [id number] Medicar e as of this encounter
--- OUTSIDE RECORDS SUMMARY | 2023-01-22 23:05 | External Medical Summary | Summary of Care ---
Author Name Unknown Organization [place] [address] Phone Care Team Providers Care Rubber Tire Curer Name Role Phone Bj Mario Primary Care Provider [phone]- [phone] Encounter Details Date Type Department Care Team Description 08/17/2017 Scan Encounter Unspecified Department <No scans attached> [...] metoprolol succinate XL (TOPROL XL) 25 MG [id number]:Chroni c ischemic heart disease Take 0.5 Tabs by mouth daily. 31 Tab 5 09/07/2016 Active lisinopril (PRINIVIL) 10 MG TabletIndications:HTN, goal below 140/90 Take 1 Tab by mouth daily. 90 Tab 3 12/06/2016 Active rosuvastatin (CRESTOR) 20 MG TabletIndications:Dysl ipidemia, goal LDL below 70 take 1 tablet by mouth once daily 31 Tab 5 04/10/2017 Active PredniSONE (DELTASONE) 20 MG TabletIndications:Living Skills Advisor jose alberto left-sided low back pain with [...] Active isosorbide mononitrate SA (IMDUR) 30 MG JQ12Kljeqwwwojf:Chest heaviness Take 1 Tab by mouth daily. In the morning 31 Tab 5 08/14/2017 Active as of this encounter Active Problems Problem Noted Date History of deep vein thrombosis (DVT) of lower extremity 09/08/2016 Status post insertion of drug eluting co ronary artery stent 04/07/2015 Overview: 2009, DUS placed in the mid RCA at [facility] Kidney disease, chronic, stage III (GFR 30-59 ml/min) 08/04/2014 Overview: Per CKD protocol #1 Carotid stenosis, non-symptomatic 2014 Raynaud phenomenon 06/13/2011 Knee joint replacement status 01/13/2011 Overview: 2014, right Dr Ricardo [facility] 2011: left Dr Priya Ricardo [facility] Dyslipidemia, goal LDL below 70 09/21/19 11 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 neurogenic claudication 02/17/2010 Vitamin D deficiency 10/13/2009 Chronic ischemic heart disease 0 S/P angioplasty with stent 06/30/2009 Overview: 07/01/2009 DUS in the RCA at [facility] Non-toxic multinodular goiter 04/21/2009 Overview: seen on US, repeat -10/2009 HTN, goal below 140/90 05/25/2006 SCREEN CANCER - COLON 02/06/2006 Advance directive on file 01/19/2005 Overview: No, Advance Directive brochure given to patient. Hip joint replacement status 01/19/2005 Overview: right 2000, left 1993 Menopause Macular degeneration Overview: Ugo iSmon MD Glaucoma of both eyes Overview: Paul [...] Encounters Date Type Specialty Care Team Description 08/28/2017 Cardiac Studies Cardiac Studies Gw, Compensation Specialist 1 [address] [facility] [place] [address] [phone] 09/06/2017 Office Visit Family Practice Bj Mario, DO [address] [place] [address] [phone] 02/14/2018 Office Visit Cardiology Yvon Harris PA-C [address] [place] [address] [phone] Health Maintenance Due Date Last Done Comments DTaP,Tdap,and Td Vaccines (1 - Tdap) 04/22/2012 04/21/2012, 04/28/2008 CKD GFR USE SMARTSET 15991 07/12/201701/09, 07/25/2016, 04/11/2016, Additional history exists CKD HGB USE SMARTSET 93402 07/25/201707/25, 04/11/2016, 10/12/2015, Additional history exists CKD PHOS USE SMARTSET 64479 01/09/201812/21, 04/11/2016, 09/22/2014 CKD URINE PROTEIN/CREATININE RATION OR URINE MICROALBUMIN YEARLY USE SMARTSET 35885 01/09/2018 01/09/2017, 04/11/2016, 12/03/2013 DIABETES SCREEN EVERY [...] Type Phone Address MEDICARE REPLACEMENT [employer] PPO [id number] Medicar e as of this encounter
--- OUTSIDE RECORDS SUMMARY | 2023-01-22 23:05 | External Medical Summary | Summary of Care ---
Author Name Unknown Organization [place] [address] Phone Care Team Providers Care Tip Tester Name Role Phone AntioneBj barron Primary Care Provider [phone] Reason for Referral * Evaluate & Treat - Unlimited Visits (Within 10 days (routine)) Status Reason Specialty Diagnoses / Procedures Referred By Contact Referred To Contact Pending Review Specialty Services Required Physical Therapy Diagnoses Piriformis syndrome, left Rojas Quesada III, MD [address] [place] [id number] Reason for Visit * Reason Comments Acute back pain Encounter Details Date Type Department Care Team Description 08/03/2017 [address] [facility] [address] [place] [address] Rojas Quesada III, MD [address] [place] [address] [phone] Piriformis syndrome, left* Allergies No Known Allergiesas of this encounter Medications Prescription Sig. Disp. Refills Start Date End Date Status ASPIRIN 81 MG PO CHEW One pill by mouth once a day with food 100 5 08/06/2008 Active VITAMIN D 1000 UNIT PO CAPSIndications:Carmel min D deficiency 1 capsule daily 30 Cap 11 10/13/2009 Active NITROGLYCERIN 0.4 MG SL SUBLIndications:Transport Rn jose alberto ischemic heart disease 1 every [...] metoprolol succinate XL (TOPROL XL) 25 MG [id number]:Transport Rn jose 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 31 Tab 5 09/07/2016 Active lisinopril (PRINIVIL) 10 MG TabletIndications:HT N, goal below 140/90 Take 1 Tab by mouth daily. 90 Tab 3 12/06/2016 Active rosuvastatin (CRESTOR) 20 MG TabletIndications:Dy slipidemia, goal LDL below 70 take 1 tablet by mouth once daily 31 Tab 5 04/10/2017 Active PredniSONE (DELTASONE) 20 MG Tablet Take 3 tabs for 3 days, 2 tabs for 3 days, 1 tab for 3 days, 1/2 tab for 3 days 20 Tab 0 06/02/2017 8 Discontinued as of this encounter Active Problems Problem Noted Date History of deep vein thrombosis (DVT) of lower extremity 09/08/2016 Status post insertion of drug eluting co ronary artery stent 04/07/2015 Overview: 2009, DUS placed in the mid RCA at [facility] Kidney disease, chronic, stage III (GFR 30-59 ml/min) 08/04/2014 Overview: Per CKD protocol #1 Carotid stenosis, non-symptomatic 2014 Raynaud phenomenon 06/13/2011 Knee joint replacement status 01/13/2011 Overview: 2013, right Dr Ricardo [facility] 2010: left Dr Priya Ricardo [facility] Dyslipidemia, [...] MD Glaucoma of both eyes Overview: Paul Siomn MD, drops used bilateral Both cataracts also [...] t, with Preserve, 3yr & Above, Split 03/10/2014,04/25/2013,03/20/2012,10/12/2010,02/17/2010,02/04/2009,04/28/20 08,03/30/2007,02/22/2007,03/01/2006,1 ,03/12/2002 TD, Preservative Free 04/21/2012,04/28/2008 Varicella Zoster Vaccine (Adult) 06/11/2008 as of this encounter Social History Tobacco Use Types Packs/Day Years Used Date Never Smoker Smokeless Tobacco: Never Used Alcohol Use Drinks/Week oz/Week Comments Yes occ Sex Assigned at Date Recorded Not on file as of this encounter Last Filed Vital Signs Vital Sign Reading Time Taken Blood Pressure 124/64 08/03/2017 1:26 PM EDT Pulse 76 08/03/2017 1:26 PM EDT Temperature 36.1 C (97 F) 08/03/2017 1:2 6 PM EDT Respiratory Rate 16 08/03/2017 1:26 PM EDT Oxygen Saturation - - Inhaled Oxygen Concentration - - Weight 88.7 kg (195 lb 9.6 oz) 08/04/19 18 1:26 PM EDT Height - - Body Mass Index 33.56 08/03/2017 1:26 PM EDT in this encounter Progress Notes * Rojas Quesada III, MD - 08/03/2017 3:14 PM EDT Negative Shows previous surgery in this encounter H&P Notes * Rojas Quesada III, MD - 08/03/2017 1:45 PM EDT Formatting of this note may be different from the original. Subjective: Eugenia Hu is a 82 year old female. Chief Complaint Patient presents with Acute back pain HPI: Having for the past 5 days pain left low back buttocks area radiating down lateral aspect of thigh does not reach the knee had written back from [place] in a car the day before no injury thatshe is aware of no rash no urinary or bowel related issues has tried ice and heat this morning was quite painful only relief she would get from this would be sitting or lying down to standing walkingvery painful. PMH: Patient Active Problem List Diagnosis Code Advance directive on file Z78.9 Menopause Z78.0 Hip joint replacement status Z96.649 SCREEN CANCER - COLON Z12.11 Macular degeneration H35.30 Glaucoma of both eyes [...] vein thrombosis (DVT) of lower extremity Z86.718 Current Outpatient Prescriptions Medication Sig Dispense Refill amoxicillin (AMOXIL) 500 MG Capsule take 4 capsules by mouth 1 hour PRIOR TO PROCEDURE 4 Cap 6 ASPIRIN 81 MG PO CHEW One pill by mouth once a day with food 100 5 lisinopril (PRINIVIL) 10 MG Tablet Take 1 [...] MD at [facility]OSCOPY [facility] COLONOSCOPY, GI REFERRAL OP 03/22/2005 [...] one ovary left in, Dr Chakraborty in [facility] REMOVE CATARACT, INSERT LENS PROSTH Right 01/05/[address] eMssi Simon REMOVE CATARACT, INSERT LENS PROSTH Left 01/28/[address] Messi Simon STENT, COATED/COVERED, WITH DELIVERY SYSTEM 06/30/2009 [employer]tronic Endeaver Drug Eluding Stent [facility] TOTAL HIP REPLACEMENT & PROSTHESIS 1992 left, Dr Ricardo TOTAL HIP REPLACEMENT & PROSTHESIS 10/2000 right , Dr Ricardo at [facility] Objective: The patient is a 82 year old female BP 124/64 | Pulse 76 | Temp (Src) 97 (Tympanic) | Resp 16 | Wt 195 lbs 9.6 oz (88.724kg) | BMI 33.56 kg/m | BSA 2 m General: alert, healthy, no distress, well nourished and well developed Straight leg raising is negative no trochanteric area tenderness no pain with range of motion of the hip -marked piriformis area tenderness on the left some discomfort with palpation of the iliotibial band on the left ASSESSMENT: G57.02 Piriformis syndrome, left (primary encounter diagnosis) PLAN: X-ray hip physical therapy referral call if not resolving or worsening Follow up as needed. Rojas Quesada III, MD in this encounter Nursing Notes * Burak Abbiejeannette Vega LPN - 08/03/2017 1:29 PM EDT Pt presents today for lower back pain since Monday. Patient states no injury significantly worse this morning. Thinks maybe from left hip pain moving down leg. Rates pain 8 out of 10 now this [id number] out of 10. Hm and med reviewed in this encounter Plan of Treatment Upcoming Encounters Date Type Specialty Care Team Description 08/09/2017 Office Visit Family Practice Bj Mario, DO [address] [facility] [place] [address] [phone] 08/14/2017 Office Visit Cardiology Yvon Harris PA-C [address] [facility] [place] [address] [phone] Scheduled Referrals Name Priority Associated Diagnoses Order S chedule PHYSICAL THERAPY REFERRAL OP Within 10 days (routine) Piriformis syndrome, left Ordered: 08/03/2017 Health Maintenance Due Date Last Done Comments DTaP,Tdap,and Td Vaccines (1 - Tdap) 04/22/2012 04/21/2012, 04/28/2008 CKD GFR USE SMARTSET 42398 07/12/201701/09, 07/25/2016, 04/11/2016, Additional history exists CKD HGB USE SMARTSET 49496 07/25/201707/25, 04/11/2016, 10/12/2015, Additional history exists CKD PHOS USE SMARTSET 09084 01/09/201812/21, 04/11/2016, 09/22/2014 CKD URINE PROTEIN/CREATININE RATION OR URINE MICROALBUMIN YEARLY USE SMARTSET 43576 01/09/2018 01/09/2017, 04/11/2016, 12/03/2013 DIABETES SCREEN EVERY [...] on fileas of this encounter Results * XR HIP UNILAT 2-3 VIEWS INCLUDING AP PELVIS (08/03/2017 2:09 PM) Specimen Performing Laborator y [facility] [address] [place] [address] Narrative EXAM LEFT HIP, UNILATERAL 2-3 VIEWS INCLUDING AP PELVIS HISTORY pain TECHNIQUE A frontal view of the pelvis with coned-down frontal and frog-leg lateral views of the LEFT hip are submitted. COMPARISON None. FINDINGS Bilateral Press-Fit total hip arthroplasties are identified with acetabular screw fixation.The RIGHT total hip arthroplasty is in good position without evidence of periprosthetic lucency or osseous destructive changes.Suture anchors seen at the level of the RIGHT greater trochanter likely status post tendon repair. The LEFT total hip arthroplasty is in good position without evidence of periprosthetic lucency or osseous destructive changes.Mild heterotopic ossification is noted around the hip joint.No acute fracture or dislocation is identified.The calcific foci the origins of the hamstring tendons from the ischial tuberosity is likely reflect calcium pyrophosphate deposition.Inol-lu-gdoasfdk disc degenerative changes are noted in the lower lumbar spine. IMPRESSION 1. No acute osseous abnormality to the pelvis. 2. Bilateral Press-Fit total hip arthroplasty.No radiographic evidence for implant complication. Authenticated By Authenticating DateAuthenticating TimeReading Providers(s) MARI NGUYEN MD 08-03-2017 15:06MARI NGUYEN MD Procedure Note Interface, Rad In - 08/03/2017 3:08 PM EDT EXAM LEFT HIP, UNILATERAL 2-3 VIEWS INCLUDING AP PELVIS HISTORY pain TECHNIQUE A frontal view of the pelvis with coned-down frontal and frog-leg lateralviews of the LEFT hip are submitted. COMPARISON None. FINDINGS Bilateral Press-Fit total hip arthroplasties are identified withacetabular screw fixation. The RIGHT total hip arthroplasty is in good position without evidence of periprostheticlucency or osseous destructive changes. Suture anchors seen at the level of the RIGHT greater trochanterlikely status post tendon repair. The LEFT total hip arthroplasty is in good position without evidence ofperiprosthetic lucency or osseous destructive changes. Mild heterotopic ossification is noted around thehip joint. No acute fracture or dislocation is identified. The calcific foci the origins of the hamstringtendons from the ischial tuberosity is likely reflect calcium pyrophosphate deposition.Wzvi-vs-hsotmejo disc degenerative changes are noted in the lower lumbar spine. IMPRESSION 1. No acute osseous abnormality to the pelvis. 2. Bilateral Press-Fit total hip arthroplasty. No radiographic evidencefor implant complication. Authenticated By Authenticating Date AuthenticatingTime Reading Providers(s) MARI NGUYEN MD 08-03-2017 15:06MARI NGUYEN MD in this encounter Visit Diagnoses Diagnosis Piriformis syndrome, left - Primary in this encounter Insurance Payer Benefit Plan / Group Subscriber ID Type Phone Address MEDICARE REPLACEMENT [employer] PPO [id number] Medicar e as of this encounter"
--- OUTSIDE RECORDS SUMMARY | 2023-01-22 23:05 | External Medical Summary ---
Author Name Unknown Address [address] [id number] Phone Organization K01:[facility] [address] [id number] Laboratory Report Ordering Provider Test Date Status SRINI RUCKER GAGE 08/05/2016 09:34:00 Final Observation Date Value Abnormality Reference Status TSH 08/05/2016 17:11 3.39 0.27-4.2 Fin al Performing Location [facility] [address] [facility] [address]
--- OUTSIDE RECORDS SUMMARY | 2023-01-22 23:05 | External Medical Summary | Summary of Care ---
Author Name Unknown Organization [place] [address] Phone Care Team Providers Care Therapist'S Assistant Name Role Phone AntioneBj barron Primary Care Provider [phone] Reason for Referral * Precert (Routine) Status Reason Specialty Diagnoses / Procedures Referred By Contact Referred To Contact Pending Review Precert Cardiac Studies Diagnoses Chest heaviness Procedures ECHO, STRESS (DOBUTAMINE) Yvon Harris PA-C [address] [place] [address] Reason for Visit * Reason Comments FOLLOW UP 6 month return Encounter Details Date Type Department Care Team Description 08/14/2017 Office Visit Cardiology, [facility] [address] [place] [address] Yvon Harris PA-C [address] [place] [address] [phone] Chest heaviness*;Chronic ischemic heart disease;Dyslipidemia, goal LDL below 70;Asymptomatic bilateral carotid artery stenosis;HTN, goal below 140/90;S/P angioplasty with stent;Status post insertion of drug eluting coronary artery stent;Raynaud's phenomenon without gangrene Allergies No Known Allergiesas of this encounter [...] metoprolol succinate XL (TOPROL XL) 25 MG [id number]:Chroni c ischemic heart disease Take 0.5 Tabs by mouth daily. 31 Tab 5 09/07/2016 Active lisinopril (PRINIVIL) 10 MG TabletIndications:HTN, goal below 140/90 Take 1 Tab by mouth daily. 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 In the morning 31 Tab 5 08/14/2017 Active as of this encounter Active Problems Problem Noted Date History of deep vein thrombosis (DVT) of lower extremity 09/08/2016 Status post insertion of drug eluting co ronary artery stent 04/07/2015 Overview: 2009, DUS placed in the mid RCA at [facility] Kidney disease, chronic, stage III (GFR 30-59 [...] US, repeat HTN, goal below 140/90 05/25/2006 SCREEN CANCER [...] Vital Sign Reading Time Taken Blood Pressure 140/86 08/14/2017 10:24 AM EDT Pulse 60 08/14/2017 10:24 AM EDT Temperature - - Respiratory Rate 16 08/14/2017 10:2 4 AM EDT Oxygen Saturation - - Inhaled Oxygen Concentration - - Weight 85.8 kg (189 lb 1.9 oz) 08/15/19 18 10:24 AM EDT Height - - Body Mass Index 32.45 08/14/2017 10:24 AM EDT in this encounter Progress Notes * Yvon Harris PA-C - 08/14/2017 10:49 AM EDT Formatting of this note may be different from the original. History of Present Illness: Eugenia Hu is an 82-year-old female here today for routine cardiology follow-up. She notes occasionally experiencing a hard or heavy feeling in the chest when frustrated, not particularly when active. Notes sitting down and trying to relax with prompt resolution. Symptoms are reminiscent of those leading to prior coronary intervention. She notes being able to clean including cleaning out the attic after getting a new roof, running the sweeper, and square dancing on occasion without much difficulty (limited primarily by the chronic back pain). No sublingual nitroglycerin use. No tachypalpitations. No new or worsening shortness of breath. No orthopnea, PND, or edema. No lightheadedness, dizziness, near syncope, or true syncope. No epistaxis, hemoptysis, melena, hematochezia, or hematuria. Back and leg pain, sciatica. Using Lidocaine patches, rare as needed Tramadol, prednisone (today is her first day with one pill), and attending physical therapy. History includes chest pain and abnormal adenosine [...] systolic function, EF 55%. Patient hospitalized at [facility] in June 2012 at which time she [...] TTE was interpreted by Dr. Kidd at [facility] on September 02, 2016 as demonstrating normal [...] vein thrombosis (DVT) of lower extremity Z86.718 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 2000, left 1992 HTN, goal below 140/90 Knee joint replacement status 01/13/[address] Priya Ricardo [facility] Knee joint replacement status 12/15/2013 right [facility] Macular degeneration Ugo Simon MD Menopause 1974 Need for prophylactic hormone replacement therapy (postmenopausal) 1974 Non-toxic multinodular goiter 04/2009 seen on US, repeat -10/2009 Other screening mammogram 10/24/03 Birad Code 2 Other specified glaucoma both eyes, Paul Simon MD, drops used, timolol S/P angioplasty with stent 06/30/09 [facility] Status post insertion of drug eluting coronary artery stent 04/07/20152009, DUS placed in the mid RCA at [facility] Vitamin D deficiency 10/13/2009 Past Surgical History: Procedure Laterality Date ARTHROPLASTY KNEE TOTAL Left 01/13/2011 Left, Dr Priya Ricardo [facility] ARTHROPLASTY KNEE TOTAL Right 12/16/13 Right, Dr Priya Ricardo [facility] CARDIAC CATH SCANNED RESULT 06/30/2009 DUS placed in right coronary, [facility] CARPAL TUNNEL SURGERY Bilateral 2015 bilateral COLONOSCOPY 03/22/2006 normal repeat in 2015 COLONOSCOPY, DIAGNOSTIC (RECTUM) 09/01/2016 diverticulosis/COLONOSCOPY FLEXIBLE PROXIMAL DIAGNOSTIC performed by Kaylie Ford MD at ENDOSCOPY [facility] COLONOSCOPY, GI REFERRAL OP 03/22/2005 diverticulosis, [...] finding. birad code 1 MAMMOGRAM - BILATERAL ..03 negative findings, yearly mammograms appropriate, birad code 1-diffuse scattered calcifications MAMMOGRAM - BILATERAL 04/10/07 birad code 2 MAMMOGRAM SCREENING-BILATERAL 03/02/05 benign findings, yearly mammograms appropriate, birad code 2 MAMMOGRAM SCREENING-BILATERAL ..06 benign findings, yearly mammograms appropriate, birad code 2 MAMMOGRAM SCREENING-BILATERAL 07/03/08 birad code 2 NUCLEAR SCAN OF HEART MUSCLE 05/31/09, 11/23/10 abnormal PARTIAL HYSTERECTOMY 1974 one ovary left in, Dr Chakraborty in [facility] REMOVE CATARACT, INSERT LENS PROSTH Right 01/05/[address] Messi Simon REMOVE CATARACT, INSERT LENS PROSTH Left 01/28/[address] Messi Simon STENT, COATED/COVERED, WITH DELIVERY SYSTEM 06/30/2009 [employer]tr[employer] Endeaver Drug Eluding Stent [facility] TOTAL HIP REPLACEMENT & PROSTHESIS 1992 left, Dr Ricardo TOTAL HIP REPLACEMENT & PROSTHESIS 10/2000 right , Dr Ricardo at [facility] Family History Problem Relation Age of Onset [...] Blood Transfusions No Social History Narrative born [place] in [facility] since 1953 ; 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 Complete Review of Systems: See above. Otherwise negative or noncontributory. Review of patient's allergies indicates: No Known Allergies Outpatient Prescriptions Marked as Taking for the 08/14/17 encounter (Office Visit) with Yvon Harris PA-C Medication Sig isosorbide mononitrate SA (IMDUR) 30 MG TB24 Take 1 Tab by mouth daily. In the morning ASPIRIN 81 MG PO CHEW One pill by mouth once a day with food lidocaine (LIDODERM) 5 % Place 1 Patch topically on the skin daily. lisinopril (PRINIVIL) 10 MG Tablet Take 1 Tab by mouth daily. metoprolol succinate XL (TOPROL XL) 25 MG TB24 Take 0.5 Tabs by mouth daily. PredniSONE (DELTASONE) 20 MG Tablet Take 2 pills by mouth for 5 days and then 1 pill for 5 days rOPINIRole (REQUIP) 0.25 MG Tablet Take 1 [...] CAPS 1 capsule daily OBJECTIVE/PHYSICAL EXAMINATION: BP 140/86 | Pulse 60 | Resp 16 | Wt 189 lbs 1.92 oz (85.784kg) | BMI 32.45 kg/m | BSA 1.97 m | General: NAD. HEENT: Normocephalic. Atraumatic. PER. Conjunctiva pink, sclera clear. Bilateral carotid bruits. No overt JVD. Heart: RRR, 54 bpm. Soft systolic murmur. Lungs: Clear to auscultation. Abdomen: +BS. Soft. Nontender. No masses or organomegaly. Extremities: No clubbing, cyanosis, or edema.Pulses: radial=2/4, posterior tibial=1/4 on the left and [...] than 50% STEPHENIE stenosis. 50-69% LICA stenosis. EKG today demonstrates sinus bradycardia at 54 bpm with a possible old septal infarct. ASSESSMENT: 1. Chest heaviness somewhat reminiscent of her symptoms leading to initial coronary intervention 2. ASCVD as detailed above. 3. Carotid disease without infarction 4. Hypertension 5. Hyperlipidemia 6. Mild bradycardia RECOMMENDATIONS/PLAN: 1. Add Imdur 30 mg/day. Benefit, use, and risks explained 2. Refer for dobutamine stress echocardiography 3. Carotid duplex due in November 2018 4. Routine cardiac follow-up in 6 months or as needed 5. ER with emergencies Yvon Harris PA-C Department of Cardiology in this encounter Nursing Notes * Carmen Srinivasan RN - 08/14/2017 10:22 AM EDT Examination Room: 1 Name: Eugenia Hu Date of : (1935). Reason for Visit: 6 month return Interim Hospitalization(s): Denied - Did have an ER visit for back and leg pain Problems/Concerns: No cardiac problems voiced. Taking prednisone and tramadol for pain and attending PT and using Lidocaine patches Chest Pain/SOB: Denied [facility] is a way you can talk to your provider online through e-mail. Would you like to sign up? I can activate it for you? NO in this encounter Plan of Treatment Upcoming Encounters Date Type Specialty Care Team Description 08/28/2017 Cardiac Studies Cardiac Studies Gw, Environmental Control Administrator [address] [place] [address] [phone] 09/06/2017 Office Visit Family Practice Bj Mario DO [address] [place] [address] [phone] 02/14/2018 Office Visit Cardiology Yvon Harris PA-C [address] [facility] [place] [address] [phone] Scheduled Tests Name Priority Associated Diagnoses Order S chedule ECHO, STRESS (DOBUTAMINE) Routine Chest heaviness Expected: 08/15/2017 (Approximate), Expires: 09/14/2018 Health Maintenance Due Date Last Done Comments DTaP,Tdap,and Td Vaccines (1 - Tdap) 04/22/2012 04/21/2012, 04/28/2008 CKD GFR USE SMARTSET 30278 07/12/201701/09, 07/25/2016, 04/11/2016, Additional history exists CKD HGB USE SMARTSET 87782 07/25/201707/25, 04/11/2016, 10/12/2015, Additional history exists CKD PHOS USE SMARTSET 28142 01/09/201812/21, 04/11/2016, 09/22/2014 CKD URINE PROTEIN/CREATININE RATION OR URINE MICROALBUMIN YEARLY USE SMARTSET 02209 01/09/2018 01/09/2017, 04/11/2016, 12/03/2013 DIABETES SCREEN EVERY [...] Chest heaviness - Primary Other chest pain Chronic ischemic heart disea se Chronic ischemic heart disease, unspecified Dyslipidemia, goal LDL below 70 Other and unspecified hyperlipidemia Asymptomatic bilateral carot id artery stenosis Occlusion and stenosis of multiple and bilateral precerebral arteries without mention of cerebral infarction HTN, goal below 140/90 Unspecified essential hypertension S/P angioplasty with stent Postsurgical percutaneous transluminal coronary angioplasty status Status post insertion of sanaz g eluting coronary artery stent Postsurgical percutaneous transluminal coronary angioplasty status Raynaud's phenomenon without gangrene in this encounter Insurance Payer Benefit Plan / Group Subscriber ID Type Phone Address MEDICARE REPLACEMENT [employer] PPO [id number] Medicar e as of this encounter"
--- OUTSIDE RECORDS SUMMARY | 2023-01-22 23:05 | External Medical Summary ---
Author Name Unknown Address [address] [place] [address] Phone Organization K09:[facility] [address] [place] [address] Laboratory Report Ordering Provider Test Date Status NHIANIVAL 01/09/2017 09:51:00 Final Observation Date Value Abnormality Reference Status Phosphate 01/09/2017 11:09 3.4 2.5-4.8 Fin al Performing Location [facility] Reading [address] [place] [address]
--- OUTSIDE RECORDS SUMMARY | 2023-01-22 23:05 | External Medical Summary | Summary of Care ---
Author Name Unknown Organization [place] [address] Phone Care Team Providers Care Technical Education Teacher Name Role Phone Bj Mario Primary Care Provider [phone] Reason for Visit * Reason Comments EARACHE has had cold sx for 3 weeks, improving but now with R ear pain Encounter Details Date Type Department Care Team Description 05/03/2017 Office [address] [facility] [address] [facility] [place] [address] Milad Kenny DO [address] [facility] [place] [address] [phone] Bilateral impacted cerumen*;Dysfunction of right eustachian tube;Viral upper respiratory tract infection;HTN, goal below 140/90;Obesity, Class I, BMI 30.0-34.9 (see actual BMI) Allergies No Known Allergiesas of this encounter Medications Prescription Sig. Disp. 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 30 Tab 5 04/11/2016 Active metoprolol succinate XL (TOPROL XL) 25 MG [id number]:Chronic ischemic heart disease Take 0.5 Tabs by mouth daily. 31 Tab 5 09/07/2016 Active lisinopril (PRINIVIL) 10 MG TabletIndications:HTN, goal below 140/90 Take 1 Tab by mouth daily. 90 Tab 3 12/06/2016 Active rosuvastatin (CRESTOR) 20 MG TabletIndications:Dysli pidemia, goal LDL below 70 take 1 tablet by mouth once daily 31 Tab 5 04/10/2017 Active MethylPREDNISolone (MEDROL) 4 MG TBPK follow package directions 21 Tab 0 05/03/2017 Active as of this encounter Active Problems Problem Noted Date History of deep vein thrombosis (DVT) of lower extremity 09/08/2016 Prophylactic antibiotic 07/09/2015 Status post insertion of drug eluting co ronary artery stent 04/07/2015 Overview: 2009, DUS placed in the mid RCA at [facility] Kidney disease, chronic, stage III (GFR 30-59 ml/min) 08/04/2014 Overview: Per CKD protocol #1 Carotid stenosis, non-symptomatic 2014 History of bilateral hip replacements Raynaud phenomenon 06/13/2011 Knee joint replacement status 01/13/2011 Overview: 2014, right Dr Ricardo [facility] 2011: left Dr Priya Ricardo [facility] Dyslipidemia, goal LDL below 70 09/21/19 11 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 neurogenic claudication 02/17/2010 Vitamin D deficiency 10/13/2009 Chronic ischemic heart disease 0 Primary open angle glaucoma 08/17/2009 S/P angioplasty with stent 06/30/2009 Overview: 07/01/2009 DUS in the RCA at [facility] Non-toxic multinodular goiter 04/21/2009 Overview: [...] the right knee replacement Right leg DVT ([facility]) 03/05/2014 09/08/2016 Warfarin anticoagulation 03/05/2014 [...] Vital Sign Reading Time Taken Blood Pressure 132/70 05/03/2017 11:28 AM EST Pulse 60 05/03/2017 11:04 AM EST Temperature 35.9 C (96.7 F) 05/03/2017 1 1:04 AM EST Respiratory Rate 16 05/03/2017 11:0 4 AM EST Oxygen Saturation - - Inhaled Oxygen Concentration - - Weight 86.6 kg (191 lb) 05/03/2017 11:0 4 AM EST Height - - Body Mass Index 32.77 05/03/2017 11:04 AM EST in this encounter Instructions * Patient Instructions - Milad Kenny DO - 05/03/2017 11:58 AM EST BMI (Body Mass Index) is the number obtained by dividing a person's weight in kilograms by his or her height in meters squared. BMI is used in determining obesity. BMI is not used to determine a person's actual percentage of body fat, but it is a good tool to brim presser weight in terms of what is healthy and unhealthy. It is used to identify adults at increased risk for developing weight related medical problems. Estimated body mass index is 32.77 kg/(m^2) as calculated from the following: Height as of 03/23/17: 1.626 m (5' 4.02"). Weight as of this encounter: 86.6 kg (191 lb). Obesity - BMI 30 kg/m2 to 34.9 kg/mg - Obese individuals are at risk for developing: * Heart disease * Stroke * Diabetes * High Blood Pressure * High Cholesterol * GERD (acid reflux) * Sleep Apnea * Osteoarthritis * Fatty Liver Disease * Certain Types of Cancers * Gout * Gall Bladder Disease - Weight loss has been shown to decrease weight related medical problems. - Each additional 5 unit increase in BMI at/above 25 kg/m2 is linked to a 40% increase in from heart and coronary artery disease. - The lifespan of those with a BMI of 30-35 kg/m2 is reduced by two to four years compared to thosewith a normal BMI. - A 12-week weight management text message program is also available. Go to [employer]MeIn[employer]Foodzai and seethe message under 'WorkMe[employer] News' for more information and enrollment. Patient is Instructed to: Diet: * Limit total fat intake to no more than 40 grams per day (low fat diet). * Increase fruits and vegetables to 5 servings per day, combined. * Limited starches (breads, pasta, rice, potatoes, corn, cereals) to 4 servings per day. Avoid Calorie Containing Drinks: * No fruit juices, regular sodas or sweetened drinks. * Water is preferred - 64 ounces per day unless advised of a fluid restriction. * Diet sodas and drinks permitted. Keep Honest, Accurate Food logs: * www.In[employer].Peers App * www.inDegree * If you bite it - write it! Weigh Yourself Weekly: * Morning is best. * Try to do this outside your home. * Have a friend/spouse remind you to weigh yourself, accountability to others helps. Perform 30 minutes of physical activity daily: * Can do all at once or 5 minutes 6 times per day * 8, 000-10,000 steps per day using a pedometer * Make it fun! in this encounter Progress Notes * Milad Kenny DO - 05/03/2017 11:20 AM EST Formatting of this note may be different from the original. Subjective: Eugenia Hu is a 82 year old female. Chief Complaint Patient presents with EARACHE has had cold sx for 3 weeks, improving but now with R ear pain HPI: Pt complains of left earache times 2 days. Pt complains of bilateral ears clogged. Pt wears hearing aids and has noted increased difficulty hearing. Pt complains of nonproductive cough times 3 weeks now improving. Pt denies chest pain or SOB. Pt denies nasal congestion, sore throat. Pt denies fever, chills or sweats. ROS otherwise negative PMH: Patient Active Problem List Diagnosis Code Need for prophylactic hormone replacement therapy (postmenopausal) Z79.890 Advance directive on file Z78.9 Prophylactic antibiotic Z79.2 Menopause Z78.0 Hip joint replacement status Z96.649 SCREEN CANCER - COLON Z12.11 Macular degeneration H35.30 Glaucoma of both eyes H40.9 HTN, goal below 140/90 I10 Non-toxic multinodular goiter E04.2 Chronic ischemic heart disease I25.9 Primary open angle glaucoma H40.1190 Vitamin D deficiency E55.9 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 neurogenic claudication M48.061 S/P angioplasty with stent Z95.9 Dyslipidemia, goal LDL below 70 E78.5 Knee joint replacement status Z96.659 Raynaud phenomenon I73.00 History of bilateral hip replacements Z96.643 Carotid stenosis, non-symptomatic I65.29 Kidney disease, chronic, stage III (GFR 30-59 ml/min) N18.3 Status post insertion of drug eluting coronary artery stent Z95.5 Prophylactic antibiotic Z79.2 History of deep vein thrombosis (DVT) of lower extremity Z86.718 Current Outpatient Prescriptions Medication Sig Dispense Refill rosuvastatin (CRESTOR) 20 MG Tablet take 1 tablet by mouth once daily 31 Tab 5 lisinopril (PRINIVIL) 10 MG Tablet Take 1 Tab by mouth daily. 90 Tab 3 metoprolol succinate XL (TOPROL XL) 25 MG TB24 Take 0.5 Tabs by mouth daily. 31 Tab 5 rOPINIRole (REQUIP) 0.25 MG Tablet Take 1 Tab by mouth at bedtime. 30 Tab 5 traMADol (ULTRAM) 50 MG Tablet take 1 tablet by mouth every 6 hours if needed 40 Tab 1 amoxicillin (AMOXIL) 500 MG Capsule take 4 capsules by mouth 1 hour PRIOR TO PROCEDURE 4 Cap 6 TRAVATAN Z 0.004 % ophthalmic solution Instill 1 Drop into both eyes every evening. 0 NITROGLYCERIN 0.4 MG SL SUBL 1 every [...] replacement status 01/13/[address] Priya Ricardo [facility] Knee joint replacement status 12/15/2013 right [facility] Macular degeneration Ugo Simon MD Menopause 1974 Need for prophylactic hormone replacement therapy (postmenopausal) 1974 Non-toxic multinodular goiter 04/2009 seen on US, repeat -10/2009 Other screening mammogram 10/24/03 Birad Code 2 Other specified glaucoma both eyes, Paul Simon MD, drops used, timolol S/P angioplasty with stent 06/30/09 [facility] Status post insertion of drug eluting coronary artery stent 04/07/20152009, DUS placed in the mid RCA at [facility] Vitamin D deficiency 10/13/2009 Past Surgical History: Procedure Laterality Date ARTHROPLASTY KNEE TOTAL Left 01/13/2011 Left, Dr Priya Ricardo [facility] ARTHROPLASTY KNEE TOTAL Right 12/16/13 Right, Dr Priya Ricardo [facility] CARDIAC CATH SCANNED RESULT 06/30/2009 DUS placed in right coronary, [facility] CARPAL TUNNEL SURGERY Bilateral 2015 bilateral COLONOSCOPY 03/22/2006 normal repeat in 2016 COLONOSCOPY, DIAGNOSTIC (RECTUM) 09/01/2016 diverticulosis/COLONOSCOPY FLEXIBLE PROXIMAL DIAGNOSTIC performed by Kaylie Ford MD at ENDOSCOPY [facility] COLONOSCOPY, GI REFERRAL OP 03/22/2005 [...] one ovary left in, Dr Chakraborty in [facility] REMOVE CATARACT, INSERT LENS PROSTH Right 01/05/[address] Messi Simon REMOVE CATARACT, INSERT LENS PROSTH Left 01/28/[address] Messi Simon STENT, COATED/COVERED, WITH DELIVERY SYSTEM 06/30/2009 [employer] [facility] Eluding Stent [facility] TOTAL HIP REPLACEMENT & PROSTHESIS 1992 left, Dr Ricardo TOTAL HIP REPLACEMENT & PROSTHESIS 10/2000 right , Dr Ricardo at [facility] Review of patient's allergies indicates: No Known Allergies Family History Problem Relation Age of Onset Cancer Mother cancer of bone Lung Disorder Father old age with heart failure Heart Disorder Brother [place] at age 62 Heart Disorder Brother angina Family Status Relation Status Mother at age 79 cancer of bone Father at age 82 old age Brother MVA Brother at age 62 heart attack Brother Alive TKR times two, angina, pancreas nodule Brother Alive Brother Alive Son Alive Daughter Alive CHRISTINE at age 42 Daughter Alive Social History Social History Marital status: Spouse name: Silverio Number of children: 3 Years of education: N/A Occupational History retired, [employer] Social History Main Topics Smoking status: Never Smoker Smokeless tobacco: Never Used Alcohol use Yes Comment: occ Drug use: No Sexual activity: Yes Partners: Male Other Topics Concern Service No Blood Transfusions No Social History Narrative born [place], [place] in [facility] since 1953 ; 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 Review of Systems Constitutional: Negative for chills, diaphoresis, fatigue and fever. HENT: Positive for ear pain and hearing loss. Negative for ear discharge, postnasal drip, rhinorrhea, sinus pain, sore throat and tinnitus. Eyes: Negative for pain, discharge and redness. Respiratory: Positive for cough. Negative for chest tightness, shortness of breath and wheezing. Cardiovascular: Negative for chest pain, palpitations and leg swelling. Gastrointestinal: Negative for abdominal pain, constipation, diarrhea, nausea and vomiting. Endocrine: Negative. Genitourinary: Negative. Musculoskeletal: Negative. Skin: Negative. Negative for rash. Neurological: Negative for dizziness, light-headedness and headaches. Objective: BP 132/70 | Pulse 60 | Temp (Src) 96.7 (Tympanic) | Resp 16 | Wt 191 lbs (86.637kg) | BMI 32.77 kg/m | BSA 1.98 m Physical Exam Constitutional: She is oriented to person, place, and time. She appears well- developed and well-nourished. No distress. HENT: Head: Normocephalic and atraumatic. Nose: Nose normal. Mouth/Throat: No oropharyngeal exudate. Cerumen impaction bilateral Eyes: Conjunctivae and EOM are normal. Pupils are equal, round, and reactive to light. Neck: Normal range of motion. Neck supple. No thyromegaly present. Cardiovascular: Normal rate, regular rhythm and normal heart sounds. No murmur heard. Pulmonary/Chest: Effort normal and breath sounds normal. She has no wheezes. She has no rales. Abdominal: Soft. Bowel sounds are normal. She exhibits no distension. There is no tenderness. Musculoskeletal: Normal range of motion. Lymphadenopathy: She has no cervical adenopathy. Neurological: She is alert and oriented to person, place, and time. She has normal reflexes. Skin: Skin is warm and dry. No rash noted. She is not diaphoretic. ASSESSMENT/PLAN: H61.23 Bilateral impacted cerumen (primary encounter diagnosis) Plan: Procedures: ear irrigation performed with success, pt tolerated procedure well with no complications 1. Removal impacted cerumen irrigation/lavage, unilat 2. Removal impacted cerumen irrigation/lavage, unilat H69.81 Dysfunction of right eustachian tube Medrol dose pack as directed J06.9, B97.89 Viral upper respiratory tract infection Supportive care, increase fluid intake, tylenol OTC as directed prn pain or fever. Avoid OTC decongestants I10 Htn, goal below 140/90 Continue present treatment, cardiac diet and exercise program Milad Kenny DO Patient counseling on weight management given. in this encounter Nursing Notes * Joann Mendoza, RN - 05/03/2017 11:20 AM EST Formatting of this note may be different from the original. Chief Complaint Patient presents with EARACHE has had cold sx for 3 weeks, improving but now with R ear pain in this encounter Plan of Treatment Upcoming Encounters Date Type Specialty Care Team Description 08/09/2017 Office Visit Family Practice Bj Mario, DO [address] [place] [address] [phone] 08/14/2017 Office Visit Cardiology Yvon Harris PA-C [address] [facility] [place] [address] [phone] Studies, Nurse Arrival Cardiac, RN [address] [facility] [place] [address] [phone] Scheduled Tests Name Priority Associated Diagnoses Order S chedule REMOVAL IMPACTED CERUMEN IRRIGATION/LAVAGE, UNILAT Routine Bilateral impacted cerumen Ordered: 05/03/2017 REMOVAL IMPACTED CERUMEN IRRIGATION/LAVAGE, UNILAT Routine Bilateral impacted cerumen Ordered: 05/03/2017 Health Maintenance Due Date Last Done Comments CKD GFR USE SMARTSET 61230 07/12/201701/09, 07/25/2016, 04/11/2016, Additional history exists CKD PHOS USE SMARTSET 17694 07/12/201712/21, 04/11/2016, 09/22/2014 CKD HGB USE SMARTSET 97793 07/25/201707/25, 04/11/2016, 10/12/2015, Additional history exists CKD URINE PROTEIN/CREATININE RATION OR URINE MICROALBUMIN YEARLY USE SMARTSET 67294 01/09/2018 01/09/2017, 04/11/2016, 12/03/2013 DIABETES SCREEN EVERY [...] fileas of this encounter Visit Diagnoses Diagnosis Bilateral impacted cerumen - Primary Impacted cerumen Dysfunction of right eustach allie tube Dysfunction of Eustachian tube Viral upper respiratory trac t infection Acute upper respiratory infections of unspecified site HTN, goal below 140/90 Unspecified essential hypertension Obesity, Class I, BMI 30.0-3 4.9 (see actual BMI) Obesity, unspecified in this encounter Insurance Payer Benefit Plan / Group Subscriber ID Type Phone Address MEDICARE REPLACEMENT FREEDOMTEDDYUE PPO [id number] Medicar e as of this encounter
--- OUTSIDE RECORDS SUMMARY | 2023-01-22 23:05 | External Medical Summary | Summary of Care ---
Author Name Unknown Organization [place] [address] Phone Care Team Providers Care Cosmetic Surgeon Name Role Phone DoraBj caputo Primary Care Provider [phone] Reason for Visit * Reason Comments Acute Encounter Details Date Type Department Care Team Description 06/02/2017 [address] [facility] [address] [place] [address] Luiza Phipps PA-C [address] [place] [address] [phone] DDD (degenerative disc disease), lumbosacral* Allergies No Known Allergiesas of this encounter Medications Prescription Sig. Disp. 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 jose alberto ischemic heart disease 1 every [...] metoprolol succinate XL (TOPROL XL) 25 MG [id number]:Senior Sales Representative jose alberto ischemic heart disease Take 0.5 [...] for 3 days 20 Tab 0 06/02/2017 Active MethylPREDNISolone (MEDROL) 4 MG TBPK follow package directions 21 Tab 0 05/03/2017 8 Discontinued as of this encounter Active Problems Problem Noted Date History of deep vein thrombosis (DVT) of lower extremity 09/08/2016 Status post insertion of drug eluting co ronary artery stent 04/07/2015 Overview: 2009, DUS placed in the mid RCA at [facility] Kidney disease, chronic, stage III (GFR 30-59 ml/min) 08/04/2014 Overview: Per CKD protocol #1 Carotid stenosis, non-symptomatic 2014 Raynaud phenomenon 06/13/2011 Knee joint replacement status 01/13/2011 Overview: 2013, right Dr Ricardo [facility] 2011: [...] vein thrombosis of right lower extrem ity ([facility]) 03/05/2014 09/08/2016 Overview: Occurred after the right knee replacement Right leg DVT ([facility]) 03/05/2014 09/08/2016 Warfarin anticoagulation 03/05/2014 [...] Vital Sign Reading Time Taken Blood Pressure 126/80 06/02/2017 3:56 PM EST Pulse 68 06/02/2017 3:56 PM EST Temperature 36.5 C (97.7 F) 06/02/2017 3 :56 PM EST Respiratory Rate 16 06/02/2017 3:56 PM EST Oxygen Saturation - - Inhaled Oxygen Concentration - - Weight 87.1 kg (192 lb) 06/02/2017 3:56 PM EST Height - - Body Mass Index 32.94 06/02/2017 3:56 PM EST in this encounter Progress Notes * Luiza Phipps PA-C - 06/02/2017 5:05 PM EST Formatting of this note may be different from the original. SUBJECTIVE: Eugenia Hu is a 82 year old female. Chief Complaint Patient presents with Acute HPI: Patient is an 81-year-old female who presents today with low back pain which has been going onnow for over 6 months. No history of any injury. Pain is in the low back. She denies any radiation or paresthesias. States urination bowel movements are normal. History of both hip replacements and knee replacements. Patient Active Problem List Diagnosis Code Advance [...] Current Outpatient Prescriptions Medication Sig Dispense Refill PredniSONE (DELTASONE) 20 MG Tablet Take 3 tabs for 3 days, 2 tabs for 3 days, 1 tab for 3 days, 1/2 tab for 3 days 20 Tab 0 rosuvastatin (CRESTOR) 20 MG Tablet take [...] allergies indicates: No Known Allergies OBJECTIVE: BP 126/80 | Pulse 68 | Temp (Src) 97.7 (Tympanic) | Resp 16 | Wt 192 lbs (87.091kg) | BMI 32.94 kg/m | BSA 1.98 m PHYSICAL EXAM: General: alert, healthy, no distress, well nourished, well developed, comfortable and cooperative Back: No CVA tenderness, no skin lesions, erythema or scars, no tenderness to percussion or palpation, Normal heel walk and toe walk, without evidence of muscle weakness, Some limitation of flexion Extremities: no joint deformities, effusion, or inflammation, no edema, no skin discoloration, no clubbing, no cyanosis, Full ROM, Pulses Intact, Strength equal bilaterally ASSESSMENT: M51.37 DDD (degenerative disc disease), lumbosacral (primary encounter diagnosis) PLAN: M51.37 Ddd (degenerative disc disease), lumbosacral (primary encounter diagnosis) Orders Placed This Encounter Medications PredniSONE (DELTASONE) 20 MG Tablet Sig: Take 3 tabs for 3 days, 2 tabs for 3 days, 1 tab for 3 days, 1/2 tab for 3 days Dispense: 20 Tab Refill: 0 Will consider physical therapy if no oimprovement. Follow up as needed. Luiza Phipps PA-C in this encounter Nursing Notes * Sunday Schaffer, YESENIA - 06/02/2017 3:55 PM EST Pt reports having back pain for several months in this encounter Plan of Treatment Upcoming Encounters Date Type Specialty Care Team Description 08/09/2017 Office Visit Family Practice Bj Mario, DO [address] [place] [address] [phone] 08/14/2017 Office Visit Cardiology Yvon Harris PA-C [address] [facility] [place] [address] [phone] Health Maintenance Due Date Last Done Comments CKD GFR USE SMARTSET 95191 07/12/201701/09, 07/25/2016, 04/11/2016, Additional history exists CKD PHOS USE SMARTSET 20337 07/12/201712/21, 04/11/2016, 09/22/2014 CKD HGB USE SMARTSET 62423 07/25/201707/25, 04/11/2016, 10/12/2015, Additional history exists CKD URINE PROTEIN/CREATININE RATION OR URINE MICROALBUMIN YEARLY USE SMARTSET 89766 01/09/2018 01/09/2017, 04/11/2016, 12/03/2013 DIABETES SCREEN EVERY [...] fileas of this encounter Visit Diagnoses Diagnosis DDD (degenerative disc disea se), lumbosacral - Primary Degeneration of lumbar or lumbosacral intervertebral disc in this encounter Insurance Payer Benefit Plan / Group Subscriber ID Type Phone Address MEDICARE REPLACEMENT [employer]UE PPO [id number] Medicar e as of this encounter"
--- OUTSIDE RECORDS SUMMARY | 2023-01-22 23:05 | External Medical Summary | Summary of Care ---
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 Disp. 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 in this encounter Plan of Treatment Upcoming Encounters Date Type Specialty Care Team Description 08/09/2017 Office Visit Family Practice Bj Mario, [address] [place] [address] [phone] 08/14/2017 Office Visit Cardiology [facility] [place] [address] [phone] Health Maintenance Due Date Last Done Comments DTaP,Tdap,and Td Vaccines (1 - Tdap) 04/22/2012 04/21/2012, 04/28/2008 CKD GFR USE SMARTSET 76062 07/12/201701/09, 07/25/2016, 04/11/2016, Additional history exists CKD HGB USE SMARTSET 30948 07/25/201707/25, 04/11/2016, 10/12/2015, Additional history exists CKD PHOS USE SMARTSET 84904 01/09/201812/21, 04/11/2016, 09/22/2014 CKD URINE PROTEIN/CREATININE RATION OR URINE MICROALBUMIN YEARLY USE SMARTSET 74629 01/09/2018 01/09/2017, 04/11/2016, 12/03/2013 DIABETES SCREEN EVERY [...] Type Phone Address MEDICARE REPLACEMENT [employer] PPO [id number] Medicar e as of this encounter
--- OUTSIDE RECORDS SUMMARY | 2023-01-22 23:05 | External Medical Summary | Summary of Care ---
Author Name Unknown Organization [place] [address] Phone Care Team Providers Care Stave Block Splitter Name Role Phone Bj Mario Primary Care Provider [phone]- [phone] Encounter Details Date Type Department Care Team Description 08/05/2017 Scan Encounter Unspecified Department <No scans attached> [...] metoprolol succinate XL (TOPROL XL) 25 MG [id number]:Chronic ischemic heart disease Take 0.5 Tabs by mouth daily. 31 Tab 5 09/07/2016 Active lisinopril (PRINIVIL) 10 MG TabletIndications:HTN, goal below 140/90 Take 1 Tab by mouth daily. 90 Tab 3 12/06/2016 Active rosuvastatin (CRESTOR) 20 MG TabletIndications:Dysli pidemia, goal LDL below 70 take 1 tablet by mouth once daily 31 Tab 5 04/10/2017 Active as of this encounter Active Problems Problem Noted Date History of deep vein thrombosis (DVT) of lower extremity 09/08/2016 Status post insertion of drug eluting co ronary artery stent 04/07/2015 Overview: 2009, DUS placed in the mid RCA at [facility] Kidney disease, chronic, stage III (GFR 30-59 [...] Visit Family Practice Bj Mario, DO [address] [facility], [place] [address] [phone] 08/14/2017 Office Visit Cardiology Yvon Harris PA-C [address] [facility] [place] [address] [phone] Health Maintenance Due Date Last Done Comments DTaP,Tdap,and Td Vaccines (1 - Tdap) 04/22/2012 04/21/2012, 04/28/2008 CKD GFR USE SMARTSET 82376 07/12/201701/09, 07/25/2016, 04/11/2016, Additional history exists CKD HGB USE SMARTSET 55862 07/25/201707/25, 04/11/2016, 10/12/2015, Additional history exists CKD PHOS USE SMARTSET 81587 01/09/201812/21, 04/11/2016, 09/22/2014 CKD URINE PROTEIN/CREATININE RATION OR URINE MICROALBUMIN YEARLY USE SMARTSET 34883 01/09/2018 01/09/2017, 04/11/2016, 12/03/2013 DIABETES SCREEN EVERY [...] Type Phone Address MEDICARE REPLACEMENT [employer] PPO [id number] Medicar e as of this encounter
--- OUTSIDE RECORDS SUMMARY | 2023-01-22 23:05 | External Medical Summary | Summary of Care ---
Author Name Unknown Organization [place] [address] Phone Care Team Providers Care Breaker Off Name Role Phone Bj Mario DO Primary Care Provider [phone]- [phone] Reason for Visit * Reason Comments FOLLOW UP Encounter Details Date Type Department Care Team Description 08/09/2017 [address] [facility] [address] [place] [address] Bj Mario DO 200 [facility] [place] [address] [phone] Displacement of lumbar intervertebral disc without myelopathy*;Kidney disease, chronic, stage III (GFR 30-59 ml/min);Chronic left-sided low back pain with left-sided sciatica Allergies No Known Allergiesas of this encounter Medications Prescription Sig. Disp. 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 30 Tab 5 04/11/2016 Active metoprolol succinate XL (TOPROL XL) 25 MG [id number]:Operating Room Surgical Technician jose 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 31 Tab 5 09/07/2016 Active lisinopril (PRINIVIL) 10 MG TabletIndications:HT N, goal below 140/90 Take 1 Tab by mouth daily. 90 Tab 3 12/06/2016 Active rosuvastatin (CRESTOR) 20 MG TabletIndications:Dy slipidemia, goal LDL below 70 take 1 tablet by mouth once daily 31 Tab 5 04/10/2017 Active PredniSONE (DELTASONE) 20 MG TabletIndications:Ch ronic left-sided low back pain with left-sided sciatica Take 2 pills by mouth for 5 days and then 1 pill for 5 days 15 Tab 0 08/09/2017 Active traMADol (ULTRAM) 50 MG TabletIndications:Di splacement of lumbar intervertebral disc without myelopathy take 1 tablet by mouth every 6 hours if needed 40 Tab 1 08/09/2017 Active lidocaine (LIDODERM) 5 %Indications:Displac ement of lumbar intervertebral disc without myelopathy Place 1 Patch topically on the skin daily. 30 Patch 0 08/09/2017 Active traMADol (ULTRAM) 50 MG TabletIndications:Di splacement of lumbar intervertebral disc without myelopathy take 1 tablet by mouth every 6 hours if needed 40 Tab 1 12/28/2015 8 Discontinued as of this encounter Active Problems Problem Noted Date History of deep vein thrombosis (DVT) of lower extremity 09/08/2016 Status post insertion of drug eluting co ronary artery stent 04/07/2015 Overview: 2009, DUS placed in the mid RCA at [facility] Kidney disease, chronic, stage III [...] Vital Sign Reading Time Taken Blood Pressure 130/70 08/09/2017 10:18 AM EDT Pulse 66 08/09/2017 10:18 AM EDT Temperature 36.7 C (98 F) 08/09/2017 10: 18 AM EDT Respiratory Rate 18 08/09/2017 10:1 8 AM EDT Oxygen Saturation - - Inhaled Oxygen Concentration - - Weight 88.1 kg (194 lb 3.2 oz) 08/10/19 18 10:18 AM EDT Height - - Body Mass Index 33.32 08/09/2017 10:18 AM EDT in this encounter Progress Notes * Bj Mario, DO - 08/09/2017 10:52 AM EDT Formatting of this note may be different from the original. Subjective: Eugenia Hu is a 82 year old female. Chief Complaint Patient presents with FOLLOW UP HPI: Pt to the ER on 08/05 for Left hip and back pain. It started 6 days before. She also complainedof some nausea. She had full ROM and no instability. X-rays looked good per ER doctor. They discussed that this may be from her spine. They gave her a lidocaine patch. Pt recommended to PT for piriformis syndrome at last visit. Pt with CKD. Sitting down causes no pain. Getting up causes pain. It goes down her L leg to her knee. She has had some shooting pain that took her to her knees. It starts over her back side below her SI joint. She has had it for a few weeks now. It is on an off for 6 months to a year. No falls or car accidents to precipitate it. No numbness or tingling. At the hospital they gave her 3 pills. Uncertain what they were. She takes advil and tramadol. Theydo not help much. PMHx, meds, and allergies reviewed Patient Active [...] allergies indicates: No Known Allergies OBJECTIVE: BP 130/70 | Pulse 66 | Temp (Src) 98 (Tympanic) | Resp 18 | Wt 194 lbs 3.2 oz (88.089kg) | BMI 33.32 kg/m | BSA 1.99 m Estimated body mass index is 33.32 kg/(m^2) as calculated from the following: Height as of 03/23/17: 1.626 m (5' 4.02"). Weight as of this encounter: 88.1 kg (194 lb 3.2 oz). BP Readings from Last 3 Encounters: 08/09/17 130/70 08/03/17 124/64 06/02/17 126/80 Wt Readings from Last 3 Encounters: 08/09/17 88.1 kg (194 lb 3.2 oz) 08/03/17 88.7 kg (195 lb 9.6 oz) 06/02/17 87.1 kg (192 lb) ROS: Negative except for above PHYSICAL [...] sounds and no masses or organomegaly Back: No CVA tenderness, negative straight leg raising, no tenderness to percussion or palpation Extremities: no joint deformities, effusion, or inflammation, no edema, no clubbing, no cyanosis ASSESSMENT/Plan M51.26 Displacement of lumbar intervertebral disc without myelopathy (primary encounter diagnosis) Plan: Tramadol hcl 50 mg po tabs Sig:Take 1 tablet by mouth every 6 hours if needed Lidocaine 5 % ex ptch Sig:Place 1 patch topically on the skin daily. N18.3 Kidney disease, chronic, stage iii (gfr 30-59 ml/min) Plan: Basic metab panel, bmp Hgb M54.42, G89.29 Chronic left-sided low back pain with left-sided sciatica Plan: Prednisone 20 mg po tabs Sig:Take 2 pills by mouth for 5 days and then 1 pill for 5 days Follow up: Return in about 4 weeks (around 09/06/2017). We discussed options and went forward with prednisone, lidocaine patches, and tramadol as needed. Continue PT and if not better in a month consider MRI. The above was discussed and understanding was expressed. Bj Mario DO in this encounter Nursing Notes * Loretta Root LPN - 08/09/2017 10:18 AM EDT Eugenia Leonila Fritz presents for 7 month recheck. Medications & HM reviewed. in this encounter Plan of Treatment Upcoming Encounters Date Type Specialty Care Team Description 08/14/2017 Office Visit Cardiology Yvon Harris PA-C [address] [facility] [place] [address] [phone] 09/06/2017 Office Visit Family Practice Bj Mario, DO [address] [place] [address] [phone] Scheduled Tests Name Priority Associated Diagnoses Order S chedule BASIC METAB PANEL, BMP Routine Kidney disease, chronic, stage III (GFR 30-59 ml/min) Expected: 08/09/2017 (Approximate), Expires: 08/09/2018 HGB Routine Kidney disease, chronic, stage III (GFR 30-59 ml/min) Expected: 08/09/2017 (Approximate), Expires: 08/09/2018 Health Maintenance Due Date Last Done Comments DTaP,Tdap,and Td Vaccines (1 - Tdap) 04/22/2012 04/21/2012, 04/28/2008 CKD GFR USE SMARTSET 87801 07/12/201701/09, 07/25/2016, 04/11/2016, Additional history exists CKD HGB USE SMARTSET 15163 07/25/201707/25, 04/11/2016, 10/12/2015, Additional history exists CKD PHOS USE SMARTSET 77245 01/09/201812/21, 04/11/2016, 09/22/2014 CKD URINE PROTEIN/CREATININE RATION OR URINE MICROALBUMIN YEARLY USE SMARTSET 30926 01/09/2018 01/09/2017, 04/11/2016, 12/03/2013 DIABETES SCREEN EVERY [...] encounter Visit Diagnoses Diagnosis Displacement of lumbar inter vertebral disc without myelopathy - Primary Kidney disease, chronic, sta ge III (GFR 30-59 ml/min) Chronic kidney disease, Stage III (moderate) Chronic left-sided low back pain with left-sided sciatica in this encounter Insurance Payer Benefit Plan / Group Subscriber ID Type Phone Address MEDICARE REPLACEMENT [employer] PPO [id number] Medicar e as of this encounter
--- OUTSIDE RECORDS SUMMARY | 2023-01-22 23:05 | External Medical Summary ---
Author Name Unknown Address [facility] [place] [address] Phone Organization K01:[place] [address] [place] [address] Laboratory Report Ordering Provider Test Date Status ANIVAL HANKINS 01/09/2017 09:51:00 Final Observation Date Value Abnormality Reference Status Parathyrin.intact [Mass/volu me] in Serum or Plasma 01/09/2017 17:35 56 15-65 Final Performing Location [address] [address]
--- OUTSIDE RECORDS SUMMARY | 2023-01-22 23:05 | External Medical Summary ---
Author Name Unknown Address [facility] [place] [address] Phone Organization K01:[place] [address] [place] [id number] Laboratory Report Ordering Provider Test Date Status ANIVAL HANKINS 01/09/2017 09:51:00 Final Observation Date Value Abnormality Reference Status Protein, Urine 01/09/2017 13:24 21 Final Performing Location [place] [id number]
--- OUTSIDE RECORDS SUMMARY | 2023-01-22 23:05 | External Medical Summary | Summary of Care ---
Author Name Unknown Organization [place] [address] Phone Care Team Providers Care Hospice Fellow Name Role Phone Bj Mario Primary Care Provider [phone]- [phone] Encounter Details Date Type Department Care Team Description 08/22/2017 Scan Encounter Unspecified Department <No scans attached> [...] metoprolol succinate XL (TOPROL XL) 25 MG [id number]:Chroni c ischemic heart disease Take 0.5 Tabs by mouth daily. 31 Tab 5 09/07/2016 Active lisinopril (PRINIVIL) 10 MG TabletIndications:HTN, goal below 140/90 Take 1 Tab by mouth daily. 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 In the morning 31 Tab 5 08/14/2017 Active as of this encounter Active Problems Problem Noted Date History of deep vein thrombosis (DVT) of lower extremity 09/08/2016 Status post insertion of drug eluting co ronary artery stent 04/07/2015 Overview: 2009, DUS placed in the mid RCA at [facility] Kidney disease, chronic, stage III (GFR 30-59 [...] Description 08/28/2017 Cardiac Studies Cardiac Studies Gw, Combat Systems Operator [employer] 1 [address] [facility] [place] [address] [phone] 09/06/2017 Office Visit Family Practice Bj Mario, DO [address] [place] [address] [phone] 02/14/2018 Office Visit Cardiology Yvon Harris PA-C [address] [place] [address] [phone] Health Maintenance Due Date Last Done Comments DTaP,Tdap,and Td Vaccines (1 - Tdap) 04/22/2012 04/21/2012, 04/28/2008 CKD GFR USE SMARTSET 79642 07/12/201701/09, 07/25/2016, 04/11/2016, Additional history exists CKD HGB USE SMARTSET 23216 07/25/201707/25, 04/11/2016, 10/12/2015, Additional history exists CKD PHOS USE SMARTSET 39457 01/09/201812/21, 04/11/2016, 09/22/2014 CKD URINE PROTEIN/CREATININE RATION OR URINE MICROALBUMIN YEARLY USE SMARTSET 27245 01/09/2018 01/09/2017, 04/11/2016, 12/03/2013 DIABETES SCREEN EVERY [...] Type Phone Address [employer]IC[employer] REPLACEMENT [employer] PPO [id number] Medicar e as of this encounter
--- OUTSIDE RECORDS SUMMARY | 2023-01-22 23:05 | External Medical Summary ---
Author Name Unknown Address [address] [place], [place] [address] Phone Organization K09:[facility] [address] [place] [address] Laboratory Report Ordering Provider Test Date Status ANIVAL HANKINS 07/25/2016 11:23:00 Final Obs # Observation Date Value Abnormality Reference Status Performing Location 0 WBC, Total 07/25/2016 11:32 9.54 4.00-10.80 Final [facility] [address] [place] [address] 1 RBC 07/25/2016 11:32 4.13 3.85-5.15 Final 2 Hemoglobin 07/25/2016 11:32 11.8 Below low normal 12.0-15.3 Final 3 HCT 07/25/2016 11:32 37.4 36.0-45.2 Final 4 MCV 07/25/2016 11:32 90.6 81.5-97.5 Final 5 MCH 07/25/2016 11:32 28.6 27.0-34.0 Final 6 MCHC 07/25/2016 11:32 31.6 Below low normal 32.0-36.0 Final 7 RDW 07/25/2016 11:32 14.1 11.5-15.5 Final 8 Platelets 07/25/2016 11:32 328 140-400 Final 9 MPV 07/25/2016 11:32 9.3 6.6-11.1 Final
--- OUTSIDE RECORDS SUMMARY | 2023-01-22 23:05 | External Medical Summary | Summary of Care ---
Author Name Unknown Organization [place] [address] Phone Care Team Providers Care Chief Engineer Waterworks Name Role Phone Bj Mario Primary Care Provider +1- [phone] Encounter Details Date Type Department Care Team Description 08/15/2017 Scan Encounter Unspecified Department <No scans attached> [...] metoprolol succinate XL (TOPROL XL) 25 MG [id number]:Chroni c ischemic heart disease Take 0.5 Tabs by mouth daily. 31 Tab 5 09/07/2016 Active lisinopril (PRINIVIL) 10 MG TabletIndications:HTN, goal below 140/90 Take 1 Tab by mouth daily. 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 In the morning 31 Tab 5 08/14/2017 Active as of this encounter Active Problems Problem Noted Date History of deep vein thrombosis (DVT) of lower extremity 09/08/2016 Status post insertion of drug eluting co ronary artery stent 04/07/2015 Overview: 2009, DUS placed in the mid RCA at [facility] Kidney disease, chronic, stage III (GFR 30-59 [...] Description 08/28/2017 Cardiac Studies Cardiac Studies Gw, Shearing Shed Worker 1 [address] [facility] [place] [address] [phone] 09/06/2017 Office Visit Family Practice Bj Mario, DO [address] [place] [address] [phone] 02/14/2018 Office Visit Cardiology Yvon Harris PA-C [address] [place] [address] [phone] Health Maintenance Due Date Last Done Comments DTaP,Tdap,and Td Vaccines (1 - Tdap) 04/22/2012 04/21/2012, 04/28/2008 CKD GFR USE SMARTSET 38649 07/12/201701/09, 07/25/2016, 04/11/2016, Additional history exists CKD HGB USE SMARTSET 90215 07/25/201707/25, 04/11/2016, 10/12/2015, Additional history exists CKD PHOS USE SMARTSET 74150 01/09/201812/21, 04/11/2016, 09/22/2014 CKD URINE PROTEIN/CREATININE RATION OR URINE MICROALBUMIN YEARLY USE SMARTSET 54452 01/09/2018 01/09/2017, 04/11/2016, 12/03/2013 DIABETES SCREEN EVERY [...] Type Phone Address MEDICARE REPLACEMENT [employer] PPO [id number] Medicar e as of this encounter
--- OUTSIDE RECORDS SUMMARY | 2023-01-22 23:05 | External Medical Summary | Summary of Care ---
Author Name Unknown Organization [place] [address] Phone Care Team Providers Care Millinery Blocker Name Role Phone AntioneBj barron Primary Care Provider +1 [phone] Encounter Details Date Type Department Care Team Description 08/11/2017 Orders Only Cardiology, [facility] [place] [address] Yvon Harris PA-C [address] [facility] [address] [phone] Chronic ischemic heart disease*;Asymptomatic bilateral carotid artery stenosis Allergies No Known Allergiesas of this encounter [...] metoprolol succinate XL (TOPROL XL) 25 MG [id number]:Chroni c ischemic heart disease Take 0.5 Tabs by mouth daily. 31 Tab 5 09/07/2016 Active lisinopril (PRINIVIL) 10 MG TabletIndications:HTN, goal below 140/90 Take 1 Tab by mouth daily. 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 30 Patch 0 08/09/2017 Active as of this encounter Active Problems Problem Noted Date History of deep vein thrombosis (DVT) of lower extremity 09/08/2016 Status post insertion of drug eluting co ronary artery stent 04/07/2015 Overview: 2009, DUS placed in the mid RCA at [facility] Kidney disease, chronic, stage III (GFR 30-59 ml/min) 08/04/2014 Overview: Per CKD protocol #1 Carotid stenosis, non-symptomatic 2014 Raynaud phenomenon 06/13/2011 Knee joint replacement status 01/13/2011 Overview: 2014, right Dr Ricardo [facility] 2011: left Dr Priya Ricardo [facility] Dyslipidemia, goal LDL [...] vein thrombosis of right lower extrem ity ([facility]) 03/05/2014 09/08/2016 Overview: Occurred after the right knee replacement Right leg DVT ([facility]) 03/05/2014 09/08/2016 Warfarin anticoagulation 03/05/2014 015 History [...] Cardiology Yvon Harris PA-C [address] [place] [address] [phone] 09/06/2017 Office Visit Family Practice Bj Mario DO [address] [place] [address] [phone] Scheduled Tests Name Priority Associated Diagnoses Order S chedule EKG Routine Chronic ischemic heart disease Asymptomatic bilateral carotid artery stenosis Expected: 08/11/2017 (Approximate), Expires: 10/11/2017 Health Maintenance Due Date Last Done Comments DTaP,Tdap,and Td Vaccines (1 - Tdap) 04/22/2012 04/21/2012, 04/28/2008 CKD GFR USE SMARTSET 14823 07/12/201701/09, 07/25/2016, 04/11/2016, Additional history exists CKD HGB USE SMARTSET 62886 07/25/201707/25, 04/11/2016, 10/12/2015, Additional history exists CKD PHOS USE SMARTSET 93187 01/09/201812/21, 04/11/2016, 09/22/2014 CKD URINE PROTEIN/CREATININE RATION OR URINE MICROALBUMIN YEARLY USE SMARTSET 59497 01/09/2018 01/09/2017, 04/11/2016, 12/03/2013 DIABETES SCREEN EVERY [...] fileas of this encounter Visit Diagnoses Diagnosis Chronic ischemic heart disea se - Primary Chronic ischemic heart disease, unspecified Asymptomatic bilateral carot id artery stenosis 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
--- OUTSIDE RECORDS SUMMARY | 2023-01-22 23:05 | External Medical Summary | Summary of Care ---
Author Name Unknown Organization [place] [address] Phone Care Team Providers Care Drapery Worker Name Role Phone Bj Mario DO Primary Care Provider Reason for Visit * Reason Comments Encounter Created in Error Encounter Details Date Type Department Care Team Description 06/01/2017 Telephone Family Practice [facility] [address] [facility] [address] [place] [address] Bj Mario DO 200 [facility] [place] [address] [phone] Encounter Created in Error Allergies No Known Allergiesas of this encounter [...] metoprolol succinate XL (TOPROL XL) 25 MG VC84Fuzgyxoiivm:Chronic ischemic heart disease Take 0.5 Tabs by [...] the mid RCA at [facility] Kidney disease, chronic, stage III (GFR 30-59 ml/min) 08/04/2014 Overview: Per CKD protocol #1 Carotid stenosis, non-symptomatic 2014 History of bilateral hip replacements Raynaud phenomenon 06/13/2011 Knee joint replacement status 01/13/2011 Overview: 2014, right Dr Ricardo [facility] 2011: [...] vein thrombosis of right lower extrem ity ([facility]) 03/05/2014 09/08/2016 Overview: Occurred after the right knee replacement Right leg DVT ([facility]) 03/05/2014 09/08/2016 Warfarin anticoagulation 03/05/2014 015 Chest [...] Encounters Date Type Specialty Care Team Description 06/02/2017 Office Visit Family Practice Luiza Phipps PA-C [address] [place], [place] [address] [phone] 08/09/2017 Office Visit Family Practice Bj Mario DO [address] [place] [address] [phone] 08/14/2017 Office Visit Cardiology Yvon Harris PA-C [address] [facility] [place] [address] [phone] Health Maintenance Due Date Last Done Comments CKD GFR USE SMARTSET 85399 07/12/201701/09, 07/25/2016, 04/11/2016, Additional history exists CKD PHOS USE SMARTSET 16684 07/12/201712/21, 04/11/2016, 09/22/2014 CKD HGB USE SMARTSET 76911 07/25/201707/25, 04/11/2016, 10/12/2015, Additional history exists CKD URINE PROTEIN/CREATININE RATION OR URINE MICROALBUMIN YEARLY USE SMARTSET 46986 01/09/2018 01/09/2017, 04/11/2016, 12/03/2013 DIABETES SCREEN EVERY [...] Type Phone Address MEDICARE REPLACEMENT [employer] PPO [id number] Medicar e as of this encounter
--- OUTSIDE RECORDS SUMMARY | 2023-01-22 23:06 | External Medical Summary ---
Author Name Unknown Organization K09:[facility] [address], [place] [address] Laboratory Report Ordering Provider Test Date Status HOSEA HARRELL MD 09/22/2014 08:36:00-0400 Final Obs # Observation Date Value ABNL Reference Status Pe rforming Location 1 Albumin 09/22/2014 10:12-0400 4.0 3.8-5.0 g/dL Final
--- OUTSIDE RECORDS SUMMARY | 2023-01-22 23:06 | External Medical Summary ---
Author Name Unknown Address Unknown Organization : Laboratory Report Ordering Provider Test Date Status SRINI RUCKER GAGE [id number] Final Obs # Observation Date Value Abnormality Reference Status Performing Location 0 hours fasting [id number] 12 Final 1 Triglyceride [id number] 109 <200 Final
--- OUTSIDE RECORDS SUMMARY | 2023-01-22 23:06 | External Medical Summary ---
Author Name Unknown Address [facility] [address] [place], [place] Phone Organization K01:[facility] [address] [address] Laboratory Report Ordering Provider Test Date Status JULIO CESAR JC MD [id number] Final Obs # Observation Date Value Abnormality Reference Status Performing Location 0 Color of Urine by Auto [id number] YELLOW YEL [facility] [address] [facility] 1 Clarity, Urine SLIGHTLY CLOUDY Abnormal CLEAR [facility] [address] [facility] 2 Glucose [Mass/volume] in Urine by Automated test strip NEGATIVE NEG [facility] [address] [facility] 3 Bilirubin.tota l [Presence] in Urine by Automated test strip NEGATIVE NEG [facility] [address] [facility] 4 Ketones [Mass/volume] in Urine by Automated test strip NEGATIVE NEG [facility] [address] [facility] 5 Specific gravity, Urine 1.026 1.003-1.030 [facility] [address] [facility] 6 Hemoglobin [Presence] in Urine by Automated test strip NEGATIVE NEG [facility] [address] [facility] 7 pH of Urine by Automated test strip 6.0 5.0-7.5 [facility] [address] [facility] 8 Protein [Mass/volume] in Urine by Automated test strip 30 Abnormal NEG [facility] [address] [facility] 9 Urobilinogen [Mass/volume] in Urine by Automated test strip NORMAL NORM [facility] [address] [facility] 10 Nitrite [Presence] in Urine by Automated test strip NEGATIVE NEG [facility] [address] [facility] 11 Leukocyte esterase [Presence] in Urine by Automated test strip LARGE Abnormal NEG [facility] [address] [facility] 12 Bacteria [Presence] in Urine by Automated MANY (50+) Abnormal NONE [facility] [address] [facility] 13 Leukocytes [#/area] in Urine sediment by Automated count 20-29 Abnormal U02 [facility] [address] [facility] 14 Erythrocytes [#/area] in Urine sediment by Automated count 3-5 Abnormal U02 [facility] [address] [facility] 15 Epithelial cells.squamous [#/area] in Urine sediment by Automated count MANY [facility] [address] [facility] 16 Hyaline casts [#/area] in Urine sediment by Automated count 5-9 Abnormal UM1 [facility] [address] [facility]
--- OUTSIDE RECORDS SUMMARY | 2023-01-22 23:06 | External Medical Summary ---
Author Name Unknown Organization K01[facility], [address] [address] Laboratory Report Ordering Provider Test Date Status [facility]IN[facility] SCEN PK 05/08/2014 09:06:00-0500 Fin al Obs # Observation Date Value ABNL Reference Status Pe rforming Location 1 INR, fingerstick (POC) 05/08/2014 09:18-0500 1.4 INR Final 2 Target range 05/08/2014 09:18-0500 Final Therapeutic ranges for non-operative patients: Prophylaxsis/treatment of DVT: (Range:2.0-3.0) Treatment of pulmonary embolism:(Range:2.0-3.0) Prevention of systemic embolism from: -tissue heart valves -acute myocardial infarction -valvular heart disease -atrial fibrillation (Range: 2.0-3.0) Mechanical prosthetic valves: (Range: 2.5-3.5)
--- OUTSIDE RECORDS SUMMARY | 2023-01-22 23:06 | External Medical Summary ---
Author Name Unknown Address [address] [place] [address] Phone Organization K09:[facility] [address] [place] [address] Laboratory Report Ordering Provider Test Date Status ANIVAL HANKINS DO 04/11/2016 08:46:00 Final Obs # Observation Date Value Abnormality Reference Status Performing Location 0 Hemoglobin 04/11/2016 09:02 12.2 12.0-15.3 Final [facility] [address] [place] [address]
--- OUTSIDE RECORDS SUMMARY | 2023-01-22 23:06 | External Medical Summary ---
Author Name Unknown Address [address] [place] [address] Phone Organization K09:[facility] [address] [place] [address] Laboratory Report Ordering Provider Test Date Status ANIVAL HANKINS DO 07/25/2016 11:23:00 Final Obs # Observation Date Value Abnormality Reference Status Performing Location 0 BUN 07/25/2016 12:31 17 6-20 Final [facility] [place] [address] [place] [address] 1 Creatinine 07/25/2016 12:31 1.1 Above high normal 0.5-1.0 Final
--- OUTSIDE RECORDS SUMMARY | 2023-01-22 23:06 | External Medical Summary ---
Author Name Unknown Address [address] [place], [place] [address] Phone Organization K09:[facility] e [address] [place] [address] Laboratory Report Ordering Provider Test Date Status ANIVAL HANKINS DO 04/11/2016 08:46:00 Final Obs # Observation Date Value Abnormality Reference Status Performing Location 0 Fasting status - Reported 04/11/2016 08:48 12 Final [facility] [place] [address] [place] [address] 1 Triglyceride 04/11/2016 13:02 130 <200 Final
--- OUTSIDE RECORDS SUMMARY | 2023-01-22 23:06 | External Medical Summary ---
Author Name Unknown Organization K01:[facility], [address] [address] Laboratory Report Ordering Provider Test Date Status COAG CLINIC SCEN PK 07/08/2014 08:54:00-0500 Fin al Obs # Observation Date Value ABNL Reference Status Pe rforming Location 1 INR, fingerstick (POC) 07/08/2014 08:56-0500 1.8 INR Final 2 Target range 07/08/2014 08:56-0500 Final Therapeutic ranges for non-operative patients: Prophylaxsis/treatment of DVT: (Range:2.0-3.0) Treatment of pulmonary embolism:(Range:2.0-3.0) Prevention of systemic embolism from: -tissue heart valves -acute myocardial infarction -valvular heart disease -atrial fibrillation (Range: 2.0-3.0) Mechanical prosthetic valves: (Range: 2.5-3.5)
--- OUTSIDE RECORDS SUMMARY | 2023-01-22 23:06 | External Medical Summary ---
Author Name Unknown Address Unknown Organization : Laboratory Report Ordering Provider Test Date Status MEDARDO SOTO DO [id number] Final Obs # Observation Date Value Abnormality Reference Status Performing Location 0 specimen [id number] CLEAN CATCH URINE Final 1 result [id number] 10,000 TO 100,000 COLONIES/ML ESCHERICHIA COLI Final 2 result [id number] LESS THAN 10,000 COLONIES/ML MIXED JANES Final 3 report status [id number] 08/21/2015 FINAL Final 4 Bacteria identified in Unspecified specimen by Culture [id number] ESCHERICHIA COLI Abnormal Final
--- OUTSIDE RECORDS SUMMARY | 2023-01-22 23:06 | External Medical Summary ---
Author Name Unknown Address [address] [place], [place] [address] Phone Organization K09:[facility] [address] [place] [address] Laboratory Report Ordering Provider Test Date Status ANIVAL HANKINS DO 04/11/2016 08:46:00 Final Obs # Observation Date Value Abnormality Reference Status Performing Location 0 BUN 04/11/2016 09:50 16 6-20 Final [facility] [address] [place] [address] 1 Creatinine 04/11/2016 09:50 1.2 Above high normal 0.5-1.0 Final
--- OUTSIDE RECORDS SUMMARY | 2023-01-22 23:06 | External Medical Summary ---
Author Name Unknown Address [address] [facility] [place] [address] Phone Organization K0G:[facility] S[facility] [address] [facility] [place] [address] Laboratory Report Ordering Provider Test Date Status SRINI RUCKER GAGE [id number] Final Obs # Observation Date Value Abnormality Reference Status Performing Location 0 Magnesium [id number] 1.8 1.5-2.6 Final [facility] [address] [place] [address]
--- OUTSIDE RECORDS SUMMARY | 2023-01-22 23:06 | External Medical Summary ---
Author Name Unknown Organization K09[facility] [address], [place] [address] Laboratory Report Ordering Provider Test Date Status HOSEA HARRLEL MD 09/22/2014 08:36:00-0400 Final Obs # Observation Date Value ABNL Reference Status Pe rforming Location 1 Phosphate 09/22/2014 10:120400 4.2 2.5-4.8 mg/dL Final
--- OUTSIDE RECORDS SUMMARY | 2023-01-22 23:06 | External Medical Summary ---
Author Name Unknown Address Unknown Organization : Laboratory Report Ordering Provider Test Date Status JULIO CESAR JC MD [id number] Final Obs # Observation Date Value Abnormality Reference Status Performing Location 0 Source [id number] URINE Final 1 Bacteria identified in Unspecified specimen by Culture [id number] LESS THAN 10,000 COLONIES/ ML MIXED JANES Final 2 [id number] 6 FINAL Final
--- OUTSIDE RECORDS SUMMARY | 2023-01-22 23:06 | External Medical Summary ---
Author Name Unknown Address [address] [place] [address] Phone Organization K09:[facility] [address] [place] [address] Laboratory Report Ordering Provider Test Date Status JULIO CESAR JC MD [id number] Final Obs # Observation Date Value Abnormality Reference Status Performing Location 0 BUN [id number] 19 6-[address] [facility] [address] [place] [address] 1 Creatinine [id number] 1.2 0.5-1.2 Final [facility] [address] [place] [address]
--- OUTSIDE RECORDS SUMMARY | 2023-01-22 23:06 | External Medical Summary ---
Author Name Unknown Organization K09:[facility] [address] [place] [address] Laboratory Report Ordering Provider Test Date Status CHAIM MILLIGAN PAC 07/21/2014 06:59:00-0500 Final Obs # Observation Date Value ABNL Reference Status Pe rforming Location 1 BUN 07/21/2014 11:59-0500 24 H 6-20 mg/dL Final 2 Creatinine 07/21/2014 11:59-0500 1.2 0.5-1.2 mg/dL Final GFR should be used to assess renal function. Plasma/Serum creatinine may not be able to properly reflect renal function in some cases. If patient is , multiply estimated GFR by 1.159.
--- OUTSIDE RECORDS SUMMARY | 2023-01-22 23:06 | External Medical Summary ---
Author Name Unknown Organization K01:[employer] [facility], [address] [address] Laboratory Report Ordering Provider Test Date Status COAG CLINIC SCEN PK 06/09/2014 08:57:00-0500 Fin al Obs # Observation Date Value ABNL Reference Status Pe rforming Location 1 INR, fingerstick (POC) 06/09/2014 09:00-0500 2.2 INR Final 2 Target range 06/09/2014 09:00-0500 Final Therapeutic ranges for non-operative patients: Prophylaxsis/treatment of DVT: (Range:2.0-3.0) Treatment of pulmonary embolism:(Range:2.0-3.0) Prevention of systemic embolism from: -tissue heart valves -acute myocardial infarction -valvular heart disease -atrial fibrillation (Range: 2.0-3.0) Mechanical prosthetic valves: (Range: 2.5-3.5)
--- OUTSIDE RECORDS SUMMARY | 2023-01-22 23:06 | External Medical Summary ---
Author Name Unknown Address [address] [id number] Phone Organization K01:[facility] [address] [facility] [address] Laboratory Report Ordering Provider Test Date Status JULIO CESAR JC MD [id number] Final Obs # Observation Date Value Abnormality Reference Status Performing Location 0 Parathyrin.intac t [Mass/volume] in Serum or Plasma [id number] Final [facility] [address] [facility] [address]
--- OUTSIDE RECORDS SUMMARY | 2023-01-22 23:06 | External Medical Summary ---
Author Name Unknown Address [address] [place] [address] Phone Organization K0G:[facility] [address] [place] [address] Laboratory Report Ordering Provider Test Date Status SRINI RUCKER PAC [id number] Final Obs # Observation Date Value Abnormality Reference Status Performing Location 0 BUN [id number] Above high normal 6-20 Final [facility] S[facility] [address] [place] [address] 1 Creatinine [id number] 1.2 0.5-1.2 Final [facility] S[facility] [address] [place] [address]
--- OUTSIDE RECORDS SUMMARY | 2023-01-22 23:06 | External Medical Summary ---
Author Name Unknown Address [address] [id number] Phone Organization K01:[facility] [address] [facility] [address] Laboratory Report Ordering Provider Test Date Status ANIVAL HANKINS DO 04/11/2016 08:47:00 Final Obs # Observation Date Value Abnormality Reference Status Performing Location 0 Albumin, Urine 04/11/2016 13:[address] [facility] [address] [facility] [address] 1 Creatinine [Moles/volume] in Urine 04/11/2016 13:07 195 Final 2 Microalbumin / Creatinine Ratio 04/11/2016 13:07 12 <30 Final
--- OUTSIDE RECORDS SUMMARY | 2023-01-22 23:06 | External Medical Summary ---
Author Name Unknown Organization K0G:[facility] [place], [address], [place] [address] Laboratory Report Ordering Provider Test Date Status CHAIM MILLIGAN PAC 07/21/2014 06:59:00-0500 Final Obs # Observation Date Value ABNL Reference Status Pe rforming Location 1 hours fasting 07/21/2014 07:00-0500 12 hours Final 2 Triglyceride 07/21/2014 13:38-0500 124 <200 mg/dL Final TRIGLYCERIDE REFERENCE RANGES (mg/dL) <150 NORMAL 150-199 BORDERLINE HIGH 200-499 HIGH >499 VERY HIGH TOTAL CHOLESTEROL REFERENCE RANGES(mg/dL) <200 DESIRABLE 200-239 BORDERLINE HIGH >239 HIGH HDL CHOLESTEROL REFERENCE RANGES(mg/dL) <40 LOW(UNDESIRABLE) >59 HIGH(DESIRABLE) LDL CHOLESTEROL REFERENCE RANGES(mg/dL) <100 OPTIMAL GOAL FOR HIGH RISK PATIENTS 100-129 NEAR OR ABOVE NORMAL 130-159 BORDERLINE HIGH 160-189 HIGH >189 VERY HIGH
--- OUTSIDE RECORDS SUMMARY | 2023-01-22 23:06 | External Medical Summary ---
Author Name Unknown Address [address] [phone] Phone Organization K01:[facility] [address] [address] Laboratory Report Ordering Provider Test Date Status SRINI RUCKER GAGE [id number] Final Obs # Observation Date Value Abnormality Reference Status Performing Location 0 TSH [id number] 3.45 0.27-4.2 Final [facility] [address] [facility] [address] 1 FREE T4 REFLEXIVE [id number] NOT APPLICABLE 0.7-1.7 Final [facility] [address] [facility] [address]
--- OUTSIDE RECORDS SUMMARY | 2023-01-22 23:06 | External Medical Summary ---
Author Name Unknown Address [address] [place] [address] Phone Organization K09:[facility] e [address] [place] [address] Laboratory Report Ordering Provider Test Date Status ANIVAL HANKINS DO 04/11/2016 08:46:00 Final Obs # Observation Date Value Abnormality Reference Status Performing Location 0 Phosphate 04/11/2016 09:50 3.2 2.5-4.8 Final [facility] [place] ge [address] [place] [address]
--- OUTSIDE RECORDS SUMMARY | 2023-01-22 23:06 | External Medical Summary ---
Author Name Unknown Address [address] [facility] [place] [address] Phone Organization K09:[facility] [address] [facility] [place] [address] Laboratory Report Ordering Provider Test Date Status JULIO CESAR JC MD [id number] Final Obs # Observation Date Value Abnormality Reference Status Performing Location 0 Leukocytes [#/volume] in Blood by Automated count [id number] 6.84 4.00-10.80 Final [facility] [address] [facility] [place] [address] 1 Erythrocytes [#/volume] in Blood by Automated count [id number] 4.21 3.85-5.15 Final [facility] [address] [facility] [place] [address] 2 Hemoglobin [id number] 12.3 12.0-15.3 Final [facility] [address] [facility] [place] [address] 3 HCT [id number] 37.6 36.0-45.2 Final [facility] [address] [facility] [place] [address] 4 Erythrocyte mean corpuscular volume [Entitic volume] by Automated count [id number] 89.3 81.5-97.5 Final [facility] [address] [facility] [place] [address] 5 Erythrocyte mean corpuscular hemoglobin [Entitic mass] by Automated count 937525363705 29.2 27.0-34.0 Final [facility] [address] [place] [address] 6 Erythrocyte mean corpuscular hemoglobin concentration [Mass/volume] by Automated count [id number] 32.7 32.0-36.0 Final [facility] [address] [facility] [place] [address] 7 Erythrocyte distribution width [Ratio] by Automated count [id number] 13.6 11.5-15.5 Final [facility] [address] [facility] [place] [address] 8 Platelets [#/volume] in Blood by Automated count [id number] 360 140-400 Final [facility] [address] [facility] [place] [address] 9 Platelet mean volume [Entitic volume] in Blood by Automated count [id number] 8.9 6.6-11.1 Final [facility] [address] [place] [address]
--- OUTSIDE RECORDS SUMMARY | 2023-01-22 23:06 | External Medical Summary ---
Author Name Unknown Organization K01:[employer] [facility], [address] [address] Laboratory Report Ordering Provider Test Date Status COAG CLINIC SCEN PK 05/19/2014 08:53:00-0500 Fin al Obs # Observation Date Value ABNL Reference Status Pe rforming Location 1 INR, fingerstick (POC) 05/19/2014 08:55-0500 2.9 INR Final 2 Target range 05/19/2014 08:55-0500 Final Therapeutic ranges for non-operative patients: Prophylaxsis/treatment of DVT: (Range:2.0-3.0) Treatment of pulmonary embolism:(Range:2.0-3.0) Prevention of systemic embolism from: -tissue heart valves -acute myocardial infarction -valvular heart disease -atrial fibrillation (Range: 2.0-3.0) Mechanical prosthetic valves: (Range: 2.5-3.5)
--- OUTSIDE RECORDS SUMMARY | 2023-01-22 23:06 | External Medical Summary ---
Author Name Unknown Organization K09:[facility], [address], [place] [address] Laboratory Report Ordering Provider Test Date Status HOSEA HARRELL MD 09/22/2014 08:36:00-0400 Final Obs # Observation Date Value ABNL Reference Status Pe rforming Location 1 WBC 09/22/2014 09:040400 5.98 4.00-10.80 K/uL Final 2 RBC 09/22/2014 09:040400 4.46 3.85-5.15 M/uL Final 3 HGB 09/22/2014 09:040400 13.5 12.0-15.3 g/dL Final 4 HCT 09/22/2014 09:040400 41.3 36.0-45.2 % Final 5 MCV 09/22/2014 09:040400 92.6 81.5-97.5 fL Final 6 MCH 09/22/2014 09:040400 30.3 27.0-34.0 pg Final 7 MCHC 09/22/2014 09:040400 32.7 32.0-36.0 g/dL Final 8 RDW 09/22/2014 09:040400 13.3 11.5-15.5 % Final 9 PLT 09/22/2014 09:040400 305 140-400 K/uL Final 10 MPV 09/22/2014 09:040400 9.6 6.6-11.1 fL Final
--- OUTSIDE RECORDS SUMMARY | 2023-01-22 23:06 | External Medical Summary ---
Author Name Unknown Address [address] [place] [address] Phone Organization K0G:[facility] [address] [place] [address] Laboratory Report Ordering Provider Test Date Status SRINI RUCKER PAC [id number] Final Obs # Observation Date Value Abnormality Reference Status Performing Location 0 WBC [id number] 6.07 4.00-10.80 Final [facility] Sindy Jin [address] [place] [address] 1 RBC [id number] 4.08 3.85-5.15 Final [facility] Sindy Jin [address] [place] [address] 2 Hemoglobin 052277755328 12.6 12.0-15.3 Final [facility] Sindy Jin [address] [place] [address] 3 HCT [id number] 38.2 36.0-45.2 Final [facility] Sindy Jin [address] [place] [address] 4 MCV [id number] 93.6 81.5-97.5 Final [facility] Sindy Jin [address] [place] [address] 5 MCH [id number] 30.9 27.0-34.0 Final [facility] Sindy Jin [address] [place] [address] 6 [facility] [id number] 33.0 32.0-36.0 Final [facility] Sindy Jin [address] [place] [address] 7 RDW [id number] 12.9 11.5-15.5 Final [facility] Sindy Jin [address] [place] [address] 8 Platelets [id number] 311 140-400 Final [facility] Sindy Jin [address] [place] [address] 9 MPV [id number] 9.5 6.6-11.1 Final [facility] Sindy Jin [address] [place] [address]
--- OUTSIDE RECORDS SUMMARY | 2023-01-22 23:06 | External Medical Summary ---
Author Name Unknown Organization K01[facility], [address] [address] Laboratory Report Ordering Provider Test Date Status COAG CLINIC SCEN PK 04/24/2014 09:02:00-0500 Fin al Obs # Observation Date Value ABNL Reference Status Pe rforming Location 1 INR, fingerstick (POC) 04/24/2014 09:05-0500 2.4 INR Final 2 Target range 04/24/2014 09:05-0500 Final Therapeutic ranges for non-operative patients: Prophylaxsis/treatment of DVT: (Range:2.0-3.0) Treatment of pulmonary embolism:(Range:2.0-3.0) Prevention of systemic embolism from: -tissue heart valves -acute myocardial infarction -valvular heart disease -atrial fibrillation (Range: 2.0-3.0) Mechanical prosthetic valves: (Range: 2.5-3.5)
--- OUTSIDE RECORDS SUMMARY | 2023-01-22 23:07 | External Medical Summary ---
Author Name JULIO CESAR KAPADIA Organization K09:[address] , [place] [address] Support Name Relationship Address Phone JULIO CESAR KAPADIA, [facility] Unknown [facility] Laboratory Report Ordering Provider Test Date Status HOSEA HARRELL MD 06/13/2011 10:52:00-0500 Final Obs # Observation Date Value ABNL Reference Status Pe rforming Location 1 ALT (Alanine aminotransferase) 06/13/2011 12:42-0500 10 10-35 U/L Final
--- OUTSIDE RECORDS SUMMARY | 2023-01-22 23:07 | External Medical Summary ---
Author Name Unknown Organization K01:[facility] [address] [address] Laboratory Report Ordering Provider Test Date Status CHAIM MILLIGAN PAC 07/05/2013 16:03:00-0500 Final Obs # Observation Date Value ABNL Reference Status Pe rforming Location 1 TSH 4 22:00-050 0 3.13 0.27-4.2 uIU/mL Final 2 FREE T4 REFLEXIVE 4 22:00-050 0 NOT APPLICABLE 0.7-1.7 Final
--- OUTSIDE RECORDS SUMMARY | 2023-01-22 23:07 | External Medical Summary ---
Author Name JULIO CESAR KAPADIA Organization K09:[facility], [address] [place] [address] , [place] [address] Support Name Relationship Address Phone HOSEA HARRELL MD [facility] Unknown Unavailabl e Laboratory Report Ordering Provider Test Date Status HOSEA HARRELL MD 07/25/2012 11:54:00-0500 Final Obs # Observation Date Value ABNL Reference Status Pe rforming Location 1 BUN 07/25/2012 13:29-0500 25 H 6-20 mg/dL Final 2 Creatinine 07/25/2012 13:29-0500 0.9 0.5-1.2 mg/dL Final GFR should be used to assess renal function. Plasma/Serum creatinine may not be able to properly reflect renal function in some cases.
--- OUTSIDE RECORDS SUMMARY | 2023-01-22 23:07 | External Medical Summary ---
Author Name JULIO CESAR KAPADIA Organization K01:[facility], [address] [address] Support Name Relationship Address Phone HOSEA HARRELL MD [facility] Unknown Unavailabl e Laboratory Report Ordering Provider Test Date Status HOSEA HARRELL MD 06/13/2011 10:52:00-0500 Final Obs # Observation Date Value ABNL Reference Status Pe rforming Location 1 Iron 06/13/2011 19:38-0500 66 33-151 ug/dL Final 2 Iron-binding capacity 06/13/2011 19:38-0500 315 228-428 ug/dL Final 3 Transferrin Sat % 06/13/2011 19:38-0500 21 15-55 % Final
--- OUTSIDE RECORDS SUMMARY | 2023-01-22 23:07 | External Medical Summary ---
Author Name Unknown Organization K01:[facility], [address] [address] Laboratory Report Ordering Provider Test Date Status [facility] 04/10/2014 08:47:00-0500 Fin al Obs # Observation Date Value ABNL Reference Status Pe rforming Location 1 INR, fingerstick (POC) 04/10/2014 09:07-0500 4.0 INR Final 2 Target range 04/10/2014 09:07-0500 Final Therapeutic ranges for non-operative patients: Prophylaxsis/treatment of DVT: (Range:2.0-3.0) Treatment of pulmonary embolism:(Range:2.0-3.0) Prevention of systemic embolism from: -tissue heart valves -acute myocardial infarction -valvular heart disease -atrial fibrillation (Range: 2.0-3.0) Mechanical prosthetic valves: (Range: 2.5-3.5)
--- OUTSIDE RECORDS SUMMARY | 2023-01-22 23:07 | External Medical Summary ---
Author Name JULIO CESAR KAPADIA Organization K01:[facility], [address] [address] Support Name Relationship Address Phone JULIO CESAR KAPADIA, HOSEA LARSON Unknown Unavailabl e Laboratory Report Ordering Provider Test Date Status HOSEA HARRELL MD 06/13/2011 10:52:00-0500 Final Obs # Observation Date Value ABNL Reference Status Pe rforming Location 1 LDL, (direct) 06/13/2011 19:38-0500 92 0-129 mg/dL Final LDL CHOLESTEROL REFERENCE RANGES(mg/dL) <100 OPTIMAL GOAL FOR HIGH RISK PATIENTS 100-129 NEAR OR ABOVE NORMAL 130-159 BORDERLINE HIGH 160-189 HIGH >189 VERY HIGH
--- OUTSIDE RECORDS SUMMARY | 2023-01-22 23:07 | External Medical Summary ---
Author Name Unknown Organization K01:[employer] [facility], [address] [address] Laboratory Report Ordering Provider Test Date Status [facility]I FLORIAN 05/10/2013 16:43:00-0500 Yuliana l Obs # Observation Date Value ABNL Reference Status Pe rforming Location 1 BUN 05/10/2013 21:58-0500 19 6-20 mg/dL Final 2 Creatinine 05/10/2013 21:58-0500 1.0 0.5-1.2 mg/dL Final GFR should be used to assess renal function. Plasma/Serum creatinine may not be able to properly reflect renal function in some cases.
--- OUTSIDE RECORDS SUMMARY | 2023-01-22 23:07 | External Medical Summary ---
Author Name JULIO CESAR KAPADIA Organization K09:[address] , [place] [address] Support Name Relationship Address Phone JULIO CESAR KAPADIA, HOSEA [facility] Laboratory Report Ordering Provider Test Date Status HOSEA HARRELL MD 06/20/2012 08:59:00-0500 Final Obs # Observation Date Value ABNL Reference Status Pe rforming Location 1 ALT (Alanine aminotransferase) 06/20/2012 09:58-0500 13 10-35 U/L Final
--- OUTSIDE RECORDS SUMMARY | 2023-01-22 23:07 | External Medical Summary ---
Author Name JULIO CESAR KAPADIA Organization K01:[facility], [address] [address] Support Name Relationship Address Phone HOSEA HARRELL MD [facility] Unknown Unavailabl e Laboratory Report Ordering Provider Test Date Status HOSEA HARRELL MD 06/13/2011 10:52:00-0500 Final Obs # Observation Date Value ABNL Reference Status Pe rforming Location 1 T4, Free 06/13/2011 19:46-0500 0.85 0.7-1.7 ng/dL Final
--- OUTSIDE RECORDS SUMMARY | 2023-01-22 23:07 | External Medical Summary ---
Author Name Unknown Organization K01:Rayna Meléndez [facility], [address] [address] Laboratory Report Ordering Provider Test Date Status [facility]I [facility] 05/10/2013 16:43:00-0500 Yuliana l Obs # Observation Date Value ABNL Reference Status Pe rforming Location 1 WBC 05/10/2013 21:18-0500 7.49 4.00-10.80 K/uL Final 2 RBC 05/10/2013 21:18-0500 4.47 3.85-5.15 M/uL Final 3 HGB 05/10/2013 21:18-0500 13.3 12.0-14.5 g/dL Final 4 HCT 05/10/2013 21:18-0500 41.9 36.0-44.5 % Final 5 MCV 05/10/2013 21:18-0500 93.7 81.5-97.5 fL Final 6 MCH 05/10/2013 21:18-0500 29.8 27.0-34.0 pg Final 7 MCHC 05/10/2013 21:18-0500 31.7 L 32.0-36.0 g/dL Final 8 RDW 05/10/2013 21:18-0500 13.5 11.5-15.5 % Final 9 PLT 05/10/2013 21:18-0500 285 140-400 K/uL Final 10 MPV 05/10/2013 21:18-0500 10.8 6.6-11.1 fL Final
--- OUTSIDE RECORDS SUMMARY | 2023-01-22 23:07 | External Medical Summary ---
Author Name JULIO CESAR KAPADIA Organization K09:[facility] e, [address] [facility] , [place] [address] Support Name Relationship Address Phone HOSEA HARRELL MD PROV Unknown Unavailabl e Laboratory Report Ordering Provider Test Date Status HOSEA HARRELL MD 06/13/2011 10:52:00-0500 Final Obs # Observation Date Value ABNL Reference Status Pe rforming Location 1 WBC 06/13/2011 11:50-0500 8.10 4.00-10.80 K/uL Final 2 RBC 06/13/2011 11:50-0500 4.42 3.85-5.15 M/uL Final 3 HGB 06/13/2011 11:50-0500 12.8 12.0-14.5 g/dL Final 4 HCT 06/13/2011 11:50-0500 39.2 36.0-44.5 % Final 5 MCV 06/13/2011 11:50-0500 88.7 81.5-97.5 fL Final 6 MCH 06/13/2011 11:50-0500 29.0 27.0-34.0 pg Final 7 MCHC 06/13/2011 11:50-0500 32.7 32.0-36.0 g/dL Final 8 RDW 06/13/2011 11:50-0500 13.9 11.5-15.5 % Final 9 PLT 06/13/2011 11:50-0500 265 140-400 K/uL Final 10 MPV 06/13/2011 11:50-0500 10.0 6.6-11.1 fL Final
--- OUTSIDE RECORDS SUMMARY | 2023-01-22 23:07 | External Medical Summary ---
Author Name Unknown Organization K09:[facility] e, [address], [place] [address] Support Name Relationship Address Phone CHAIM RIVERA PROV Unknown Unavaila ble Laboratory Report Ordering Provider Test Date Status CHAIM RIVERA 12/07/2010 10:42-0400 Final Obs # Observation Date Value ABNL Reference Status Pe rforming Location 1 BUN 1 16:00-040 0 17 6-20 mg/dL Final 2 Creatinine 1 16:00-040 0 0.8 0.5-1.2 mg/dL Final 3 Creatinine 1 16:00-040 0 GFR should be used to assess renal function. Plasma/Serum creatinine may not be able to properly reflect renal function in some cases. Final 4 Sodium 1 16:00-040 0 136 135-146 mmol/L Final 5 Potassium 1 16:00-040 0 4.4 3.5-5.1 mmol/L Final 6 Cl 1 16:00-040 0 103 98-111 mmol/L Final 7 CO2 1 16:00-040 0 25 22-32 mmol/L Final 8 Glucose 1 16:00-040 0 115 70-120 mg/dL Final 9 Anion gap 1 16:00-040 0 8 7-15 mmol/L Final 10 Calcium 1 16:00-040 0 9.1 8.3-10.5 mg/dL Final 11 GFR / 1.73 sq M.predicted 1 16:00-040 0 >60.0 >60 mL/min Final
--- OUTSIDE RECORDS SUMMARY | 2023-01-22 23:07 | External Medical Summary ---
Author Name CHAIM RIVERA Organization K09:[facility], [address], [place] [address] Support Name Relationship Address Phone CHAIM RIVERA PROV Unknown Unavaila ble Laboratory Report Ordering Provider Test Date Status CHAIM RIVERA 04/25/2011 10:00-0500 Final Obs # Observation Date Value ABNL Reference Status Pe rforming Location 1 BUN 1 15:03-050 0 20 6-20 mg/dL Final 2 Creatinine 1 15:03-050 0 1.0 0.5-1.2 mg/dL Final 3 Creatinine 1 15:03-050 0 GFR should be used to assess renal function. Plasma/Serum creatinine may not be able to properly reflect renal function in some cases. Final 4 SODIUM 1 15:03-050 0 140 135-146 mmol/L Final 5 POTASSIUM 1 15:03-050 0 4.7 3.5-5.1 mmol/L Final 6 Cl 1 15:03-050 0 104 98-111 mmol/L Final 7 CO2 1 15:03-050 0 27 22-32 mmol/L Final 8 GLUCOSE 1 15:03-050 0 95 70-120 mg/dL Final 9 Albumin 1 15:03-050 0 3.8 3.8-5.0 g/dL Final 10 AST (Aspartate aminotransferase ) 1 15:03-050 0 21 10-35 U/L Final 11 Alk Phos 1 15:03-050 0 88 0-153 U/L Final 12 Bilirubin, Total 1 15:03-050 0 0.3 0.3-1.3 mg/dL Final 13 Calcium 1 15:03-050 0 9.9 8.3-10.5 mg/dL Final 14 PROTEIN 1 15:03-050 0 6.7 6.0-8.3 g/dL Final 15 ALT (Alanine aminotransferase ) 1 15:03-050 0 13 10-35 U/L Final 16 Anion gap 1 15:03-050 0 9 7-15 mmol/L Final 17 GFR ESTIMATED 1 15:03-050 0 53.9 L >60 mL/min Final
--- OUTSIDE RECORDS SUMMARY | 2023-01-22 23:07 | External Medical Summary ---
Author Name Unknown Organization K09:[facility] [address] [place] [address] Laboratory Report Ordering Provider Test Date Status NHI FLORIAN DO 05/28/2013 12:00:00-0500 Yuliana l Obs # Observation Date Value ABNL Reference Status Pe rforming Location 1 BUN 05/28/2013 13:52-0500 15 6-20 mg/dL Final 2 Creatinine 05/28/2013 13:52-0500 1.0 0.5-1.2 mg/dL Final GFR should be used to assess renal function. Plasma/Serum creatinine may not be able to properly reflect renal function in some cases. RESULT MAY BE FALSELY ELEVATED DUE TO HEMOLYSIS
--- OUTSIDE RECORDS SUMMARY | 2023-01-22 23:07 | External Medical Summary ---
Author Name Unknown Organization K01:[employer], [address] [address] Laboratory Report Ordering Provider Test Date Status [facility] SC[facility] PK 03/10/2014 15:13:00-0400 Fin al Obs # Observation Date Value ABNL Reference Status Pe rforming Location 1 INR, fingerstick (POC) 03/10/2014 15:15-0400 3.5 INR Final 2 Target range 03/10/2014 15:15-0400 Final Therapeutic ranges for non-operative patients: Prophylaxsis/treatment of DVT: (Range:2.0-3.0) Treatment of pulmonary embolism:(Range:2.0-3.0) Prevention of systemic embolism from: -tissue heart valves -acute myocardial infarction -valvular heart disease -atrial fibrillation (Range: 2.0-3.0) Mechanical prosthetic valves: (Range: 2.5-3.5)
--- OUTSIDE RECORDS SUMMARY | 2023-01-22 23:07 | External Medical Summary ---
Author Name Unknown Organization K09:[facility], [address], [place] [address] Laboratory Report Ordering Provider Test Date Status NHI FLORIAN 07/02/2013 09:02:00-0500 Yuliana l Obs # Observation Date Value ABNL Reference Status Pe rforming Location 1 Albumin 07/02/2013 10:25-0500 3.9 3.8-5.0 g/dL Final 2 AST (Aspartate aminotransferase) 07/02/2013 10:25-0500 24 10-35 U/L Final 3 Alk Phos 07/02/2013 10:25-0500 142 0-153 U/L Final 4 ALT (Alanine aminotransferase) 07/02/2013 10:25-0500 21 10-35 U/L Final 5 Bilirubin, Total 07/02/2013 10:25-0500 0.4 0.3-1.3 mg/dL Final 6 Bilirubin, Direct 07/02/2013 10:25-0500 <0.2 0.0-0.3 mg/dL Final 7 Protein 07/02/2013 10:25-0500 7.4 6.0-8.3 g/dL Final
--- OUTSIDE RECORDS SUMMARY | 2023-01-22 23:07 | External Medical Summary ---
Author Name CHAIM RIVERA Organization K0G:[facility], [address] [place] [address] Support Name Relationship Address Phone CHAIM RIVERA PROV Unknown Unavaila ble Laboratory Report Ordering Provider Test Date Status CHAIM RIVERA 04/25/2011 10:00-0500 Final Obs # Observation Date Value ABNL Reference Status Pe rforming Location 1 HOURS FASTING 04/25/20 11 10:01-05 00 12 hours Final 2 TRIGLYCERIDES 04/25/20 11 21:38-05 00 154 <200 mg/dL Final 3 TRIGLYCERIDES 04/25/20 11 21:38-05 00 Final 4 TRIGLYCERIDES 04/25/20 11 21:38-05 00 TRIGLYCERIDE REFERENCE RANGES (mg/dL) Final 5 TRIGLYCERIDES 04/25/20 11 21:38-05 00 Final 6 TRIGLYCERIDES 04/25/20 11 21:38-05 00 <150 NORMAL Final 7 TRIGLYCERIDES 04/25/20 11 21:38-05 00 150-199 BORDERLINE HIGH Final 8 TRIGLYCERIDES 04/25/20 11 21:38-05 00 200-499 HIGH Final 9 TRIGLYCERIDES 04/25/20 11 21:38-05 00 >499 VERY HIGH Final 10 Cholesterol 04/25/20 11 21:38-05 00 162 <200 mg/dL Final 11 Cholesterol 04/25/20 11 21:38-05 00 Final 12 Cholesterol 04/25/20 11 21:38-05 00 TOTAL CHOLESTEROL REFERENCE RANGES(mg/dL) Final 13 Cholesterol 04/25/20 11 21:38-05 00 Final 14 Cholesterol 04/25/20 11 21:38-05 00 <200 DESIRABLE Final 15 Cholesterol 04/25/20 11 21:38-05 00 200-239 BORDERLINE HIGH Final 16 Cholesterol 04/25/20 11 21:38-05 00 >239 HIGH Final 17 Cholesterol 04/25/20 11 21:38-05 00 Final 18 HDL 04/25/20 11 21:38-05 00 62 H 40-59 mg/dL Final 19 HDL 04/25/20 11 21:38-05 00 Final 20 HDL 04/25/20 11 21:38-05 00 HDL CHOLESTEROL REFERENCE RANGES(mg/dL) Final 21 HDL 04/25/20 11 21:38-05 00 Final 22 HDL 04/25/20 11 21:38-05 00 <40 LOW Final 23 HDL 04/25/20 11 21:38-05 00 >59 HIGH Final 24 HDL 04/25/20 11 21:38-05 00 Final 25 CHOL/HDL RATIO 04/25/20 11 21:38-05 00 2.6 Final 26 LDL (CALCULATED) 04/25/20 11 21:38-05 00 69 0-129 mg/dL Final 27 LDL (CALCULATED) 04/25/20 11 21:38-05 00 Final 28 LDL (CALCULATED) 04/25/20 11 21:38-05 00 LDL CHOLESTEROL REFERENCE RANGES(md/dL) Final 29 LDL (CALCULATED) 04/25/20 11 21:38-05 00 Final 30 LDL (CALCULATED) 04/25/20 11 21:38-05 00 <100 OPTIMAL GOAL FOR HIGH RISK PATIENTS Final 31 LDL (CALCULATED) 04/25/20 11 21:38-05 00 100-129 NEAR OR ABOVE NORMAL Final 32 LDL (CALCULATED) 04/25/20 11 21:38-05 00 130-159 BORDERLINE HIGH Final 33 LDL (CALCULATED) 04/25/20 11 21:38-05 00 160-189 HIGH Final 34 LDL (CALCULATED) 04/25/20 11 21:38-05 00 >189 VERY HIGH Final 35 LDL (CALCULATED) 04/25/20 11 21:38-05 00 Final
--- OUTSIDE RECORDS SUMMARY | 2023-01-22 23:07 | External Medical Summary ---
Author Name JULIO CESAR KAPADIA Organization K01:[place] [address] [address] Support Name Relationship Address Phone HOSEA HARRELL MD Unknown Unavailabl e Laboratory Report Ordering Provider Test Date Status HOSEA HARRELL MD 06/13/2011 10:52:00-0500 Final Obs # Observation Date Value ABNL Reference Status Pe rforming Location 1 TSH 06/13/2011 19:46-0500 2.94 0.27-4.2 uIU/mL Final
--- OUTSIDE RECORDS SUMMARY | 2023-01-22 23:07 | External Medical Summary ---
Author Name JULIO CESAR KAPADIA [facility], [address] [address] Support Name Relationship Address Phone JULIO CESAR KAPADIA, HOSEA [facility] Unknown Unavailabl e Laboratory Report Ordering Provider Test Date Status HOSEA HARRELL MD 06/20/2012 08:59:00-0500 Final Obs # Observation Date Value ABNL Reference Status Pe rforming Location 1 25OH VITAMIN D TOTAL 06/20/2012 13:55-0500 46.4 30.0-100.0 ng/mL Final Deficient: <20.0 ng/mL Insufficient: 20.0-29.9 ng/ml Sufficient: 30.0-100.0 ng/ml High: >100.0 ng/ml Refer to [facility] Osteoporosis for Practitioners Best Practice Guidelines for therapeutic recommendations.
--- OUTSIDE RECORDS SUMMARY | 2023-01-22 23:07 | External Medical Summary ---
Author Name Unknown Organization K01:[employer] [facility], [address] [address] Laboratory Report Ordering Provider Test Date Status [facility] PK 03/19/2014 08:51:00-0400 Fin al Obs # Observation Date Value ABNL Reference Status Pe rforming Location 1 INR, fingerstick (POC) 03/19/2014 08:52-0400 2.1 INR Final 2 Target range 03/19/2014 08:52-0400 Final Therapeutic ranges for non-operative patients: Prophylaxsis/treatment of DVT: (Range:2.0-3.0) Treatment of pulmonary embolism:(Range:2.0-3.0) Prevention of systemic embolism from: -tissue heart valves -acute myocardial infarction -valvular heart disease -atrial fibrillation (Range: 2.0-3.0) Mechanical prosthetic valves: (Range: 2.5-3.5)
--- OUTSIDE RECORDS SUMMARY | 2023-01-22 23:07 | External Medical Summary ---
Author Name Unknown Organization K01:[employer] [facility], [address] [address] Laboratory Report Ordering Provider Test Date [facility] 03/27/2014 09:40:00-0500 Fin al Obs # Observation Date Value ABNL Reference Status Pe rforming Location 1 INR, fingerstick (POC) 03/27/2014 09:42-0500 3.1 INR Final 2 Target range 03/27/2014 09:42-0500 Final Therapeutic ranges for non-operative patients: Prophylaxsis/treatment of DVT: (Range:2.0-3.0) Treatment of pulmonary embolism:(Range:2.0-3.0) Prevention of systemic embolism from: -tissue heart valves -acute myocardial infarction -valvular heart disease -atrial fibrillation (Range: 2.0-3.0) Mechanical prosthetic valves: (Range: 2.5-3.5)
--- OUTSIDE RECORDS SUMMARY | 2023-01-22 23:07 | External Medical Summary ---
Author Name Unknown Organization K01:[facility], [address] [address] Laboratory Report Ordering Provider Test Date Status [facility] SC[facility] PK 03/13/2014 08:48:00-0400 Fin al Obs # Observation Date Value ABNL Reference Status Pe rforming Location 1 INR, fingerstick (POC) 03/13/2014 08:50-0400 2.3 INR Final 2 Target range 03/13/2014 08:50-0400 Final Therapeutic ranges for non-operative patients: Prophylaxsis/treatment of DVT: (Range:2.0-3.0) Treatment of pulmonary embolism:(Range:2.0-3.0) Prevention of systemic embolism from: -tissue heart valves -acute myocardial infarction -valvular heart disease -atrial fibrillation (Range: 2.0-3.0) Mechanical prosthetic valves: (Range: 2.5-3.5)
--- OUTSIDE RECORDS SUMMARY | 2023-01-22 23:07 | External Medical Summary ---
Author Name JULIO CESAR KAPADIA Organization K09:[facility] e, [address] , [place] [address] Support Name Relationship Address Phone JULIO CESAR KAPADIA, HOSEA PROV Unknown Unavailabl e Laboratory Report Ordering Provider Test Date Status HOSEA HARRELL MD 06/20/2012 08:59:00-0500 Final Obs # Observation Date Value ABNL Reference Status Pe rforming Location 1 hours fasting 06/20/2012 09:05-0500 12 hours Final 2 Triglyceride 06/20/2012 15:15-0500 194 <200 mg/dL Final TRIGLYCERIDE REFERENCE RANGES (mg/dL) [...]
--- OUTSIDE RECORDS SUMMARY | 2023-01-22 23:07 | External Medical Summary ---
Author Name JULIO CESAR KAPADIA Organization K09:[address] , [place] [address] Support Name Relationship Address Phone JULIO CESAR KAPADIA, HOSEA [facility] Unknown [facility] Laboratory Report Ordering Provider Test Date Status HOSEA HARRELL MD 06/20/2012 08:59:00-0500 Final Obs # Observation Date Value ABNL Reference Status Pe rforming Location 1 AST (Aspartate aminotransferase) 06/20/2012 09:58-0500 23 10-35 U/L Final
--- OUTSIDE RECORDS SUMMARY | 2023-01-22 23:07 | External Medical Summary ---
Author Name Unknown Organization K01:[employer] [facility], [address] [address] Laboratory Report Ordering Provider Test Date Status [facility] SCEN PK 03/07/2014 09:20:00-0400 Fin al Obs # Observation Date Value ABNL Reference Status Pe rforming Location 1 INR, fingerstick (POC) 03/07/2014 09:32-0400 3.1 INR Final 2 Target range 03/07/2014 09:32-0400 Final Therapeutic ranges for non-operative patients: Prophylaxsis/treatment of DVT: (Range:2.0-3.0) Treatment of pulmonary embolism:(Range:2.0-3.0) Prevention of systemic embolism from: -tissue heart valves -acute myocardial infarction -valvular heart disease -atrial fibrillation (Range: 2.0-3.0) Mechanical prosthetic valves: (Range: 2.5-3.5)
--- OUTSIDE RECORDS SUMMARY | 2023-01-22 23:07 | External Medical Summary ---
Author Name JULIO CESAR KAPADIA Organization K09:[address] , [place] [address] Support Name Relationship Address Phone HOSEA HARRELL MD [facility] Unknown Unavailabl e Laboratory Report Ordering Provider Test Date Status HOSEA HARRELL MD 06/20/2012 08:59:00-0500 Final Obs # Observation Date Value ABNL Reference Status Pe rforming Location 1 BUN 06/20/2012 09:58-0500 18 6-20 mg/dL Final 2 Creatinine 06/20/2012 09:58-0500 0.9 0.5-1.2 mg/dL Final GFR should be used to assess renal function. Plasma/Serum creatinine may not be able to properly reflect renal function in some cases.
--- OUTSIDE RECORDS SUMMARY | 2023-01-22 23:07 | External Medical Summary ---
Author Name Unknown Organization K09:[facility] [address] [place] [address] Laboratory Report Ordering Provider Test Date Status NHI FLORIAN 07/02/2013 09:02:00-0500 Yuliana l Obs # Observation Date Value ABNL Reference Status Pe rforming Location 1 hours fasting 07/02/2013 09:03-0500 12 hours Final 2 Triglyceride 07/02/2013 13:30-0500 180 <200 mg/dL Final TRIGLYCERIDE REFERENCE RANGES (mg/dL) [...]
--- OUTSIDE RECORDS SUMMARY | 2023-01-22 23:08 | External Medical Summary ---
Author Name Unknown Organization K09:[facility] e, [address], [place] [address] Support Name Relationship Address Phone CHAIM RIVERA PROV Unknown Unavaila ble Laboratory Report Ordering Provider Test Date Status CHAIM RIVERA 06/21/2010 09:090500 Final Obs # Observation Date Value ABNL Reference Status Pe rforming Location 1 BUN 06/21/2010 13:36-0500 18 6-20 mg/dL Final 2 Creatinine 06/21/2010 13:36-0500 0.9 0.7-1.5 mg/dL Final 3 Sodium 06/21/2010 13:36-0500 136 135-146 mmol/L Final 4 Potassium 06/21/2010 13:36-0500 4.0 3.5-5.1 mmol/L Final 5 Cl 06/21/2010 13:36-0500 101 98-111 mmol/L Final 6 CO2 06/21/2010 13:36-0500 25 22-32 mmol/L Final 7 Glucose 06/21/2010 13:36-0500 91 70-120 mg/dL Final 8 Albumin, Serum 06/21/2010 13:36-0500 3.8 3.8-5.0 g/dL Final 9 AST (Aspartate aminotransferase) 06/21/2010 13:36-0500 25 10-35 U/L Final 10 Alk Phos 06/21/2010 13:36-0500 120 25-125 U/L Final 11 Bilirubin, Total 06/21/2010 13:36-0500 0.4 0.3-1.3 mg/dL Final 12 Calcium 06/21/2010 13:36-0500 9.6 8.3-10.5 mg/dL Final 13 Protein 06/21/2010 13:36-0500 7.2 6.0-8.3 g/dL Final 14 ALT (Alanine aminotransferase) 06/21/2010 13:36-0500 27 10-35 U/L Final 15 Anion gap 06/21/2010 13:36-0500 10 7-15 mEq/L Final 16 GFR / 1.73 sq M.predicted 06/21/2010 13:36-0500 >60.0 >60 mL/min Final
--- OUTSIDE RECORDS SUMMARY | 2023-01-22 23:08 | External Medical Summary ---
Author Name Unknown Organization [employer] Support Name Relationship Address Phone Unavailable PROV Unknown Unavailable Laboratory Report Ordering Provider Test Date Status 02/08/2010 09:59-0400 F Obs # Observation Date Value ABNL Reference Status Pe rforming Location 1 Albumin SerPl-nc 02/08/2010 12:55-0400 3.9 3.8-5.0 g/dL Final 2 AST SerPl-[facility] 02/08/2010 12:55-0400 32 10-35 U/L Final 3 [facility] 02/08/2010 12:55-0400 140 H 25-125 U/L Final 4 ALT SerPl-[facility] 02/08/2010 12:55-0400 19 10-35 U/L Final 5 Bilirub SerPl-[facility] 02/08/2010 12:55-0400 0.3 0.3-1.3 mg/dL Final 6 Bilirub Direct SerPl-nc 02/08/2010 12:55-0400 <0.2 0.0-0.3 mg/dL Final 7 Prot SerPl-nc 02/08/2010 12:55-0400 7.4 6.0-8.3 g/dL Final
--- OUTSIDE RECORDS SUMMARY | 2023-01-22 23:08 | External Medical Summary ---
Author Name Unknown Organization K09:[facility] [address] [place] [address] Support Name Relationship Address Phone CHAIM RIVERA PROV Unknown Unavaila ble Laboratory Report Ordering Provider Test Date Status CHAIM RIVERA 09/20/2010 09:52-0400 Final Obs # Observation Date Value ABNL Reference Status Pe rforming Location 1 ALT (Alanine aminotransferase) 09/20/2010 12:24-0400 16 10-35 U/L Final
--- OUTSIDE RECORDS SUMMARY | 2023-01-22 23:08 | External Medical Summary ---
Author Name Unknown Organization [employer] Support Name Relationship Address Phone Unavailable PROV Unknown Unavailable Laboratory Report Ordering Provider Test Date Status 02/08/2010 09:58-0400 F Obs # Observation Date Value ABNL Reference Status Pe rforming Location 1 25OH VITAMIN D TOTAL 02/10/20 10 11:16 29.8 L 30.0-100.0 ng/mL Final 2 25OH VITAMIN D TOTAL 02/10/20 10 11:16 Final 3 25OH VITAMIN D TOTAL 02/10/20 10 11:1604 00 Deficient: <20.0 ng/mL Final 4 25OH VITAMIN D TOTAL 02/10/20 10 11:16 00 Insufficient: 20.0-29.9 ng/ml Final 5 25OH VITAMIN D TOTAL 02/10/20 10 11:1604 00 Sufficient: 30.0-100.0 ng/ml Final 6 25OH VITAMIN D TOTAL 02/10/20 10 11:16-04 00 High: >100.0 ng/ml Final 7 25OH VITAMIN D TOTAL 02/10/20 10 11:16-04 00 Final 8 25OH VITAMIN D TOTAL 02/10/20 10 11:16-04 00 [facility] Final 9 25OH VITAMIN D TOTAL 02/10/20 10 11:16-04 00 for Practitioners Best Practice Final 10 25OH VITAMIN D TOTAL 02/10/20 10 11:16-04 00 Guidelines for therapeutic Final 11 25OH VITAMIN D TOTAL 02/10/20 10 11:1604 00 recommendations. Final
--- OUTSIDE RECORDS SUMMARY | 2023-01-22 23:08 | External Medical Summary ---
Author Name Unknown Organization [id number]:[facility] e, [address] , [place] [address] Support Name Relationship Address Phone CHAIM RIVERA PROV Unknown Unavaila ble Laboratory Report Ordering Provider Test Date Status CHAIM RIVERA 12/07/2010 10:42-0400 Final Obs # Observation Date Value ABNL Reference Status Pe rforming Location 1 WBC 12/07/2010 15:32-0400 7.78 4.00-10.80 K/uL Final 2 RBC 12/07/2010 15:32-0400 4.07 3.85-5.15 M/uL Final 3 HGB 12/07/2010 15:32-0400 12.3 12.0-14.5 g/dL Final 4 HCT 12/07/2010 15:32-0400 36.7 36.0-44.5 % Final 5 MCV 12/07/2010 15:32-0400 90.2 81.5-97.5 fL Final 6 MCH 12/07/2010 15:32-0400 30.2 27.0-34.0 pg Final 7 MCHC 12/07/2010 15:32-0400 33.5 32.0-36.0 g/dL Final 8 RDW 12/07/2010 15:32-0400 13.2 11.5-15.5 % Final 9 PLT 12/07/2010 15:32-0400 286 140-400 K/uL Final 10 MPV 12/07/2010 15:32-0400 10.0 6.6-11.1 fL Final
--- OUTSIDE RECORDS SUMMARY | 2023-01-22 23:08 | External Medical Summary ---
Author Name Unknown Organization K09:[address] , [place] [address] Support Name Relationship Address Phone HOSEA HARRELL MD PROV Unknown Unavailab le Laboratory Report Ordering Provider Test Date Status HOSEA HARRELL MD 06/21/2010 09:05-0500 Final Obs # Observation Date Value ABNL Reference Status Pe rforming Location 1 ESR 06/21/2010 12:08-0500 48 H 0-20 mm/hour Final
--- OUTSIDE RECORDS SUMMARY | 2023-01-22 23:08 | External Medical Summary ---
Author Name Unknown Organization K01:[facility], [address] [address] Support Name Relationship Address Phone HOSEA HARRELL MD PROV Unknown Unavailab le Laboratory Report Ordering Provider Test Date Status HOSEA HARRELL MD 06/21/2010 09:05-0500 Final Obs # Observation Date Value ABNL Reference Status Pe rforming Location 1 TSH 06/21/2010 23:35-0500 2.89 0.27-4.2 uIU/mL Final
--- OUTSIDE RECORDS SUMMARY | 2023-01-22 23:08 | External Medical Summary ---
Author Name Unknown Organization K09:[facility] [address] [place] [address] Support Name Relationship Address Phone CHAIM RIVERA PROV Unknown Unavaila ble Laboratory Report Ordering Provider Test Date Status CHAIM RIVERA 09/20/2010 09:52-0400 Final Obs # Observation Date Value ABNL Reference Status Pe rforming Location 1 AST (Aspartate aminotransferase) 09/20/2010 12:24-0400 23 10-35 U/L Final
--- OUTSIDE RECORDS SUMMARY | 2023-01-22 23:08 | External Medical Summary ---
Author Name Unknown Organization K09:[facility] e, [address] [facility] , [place] [address] Support Name Relationship Address Phone HOSEA HARRELL MD PROV Unknown Unavailab le Laboratory Report Ordering Provider Test Date Status HOSEA HARRELL MD 06/21/2010 09:05-0500 Final Obs # Observation Date Value ABNL Reference Status Pe rforming Location 1 WBC 06/21/2010 11:06-0500 5.75 4.00-10.80 K/uL Final 2 RBC 06/21/2010 11:06-0500 4.19 3.85-5.15 M/uL Final 3 HGB 06/21/2010 11:06-0500 13.0 12.0-14.5 g/dL Final 4 HCT 06/21/2010 11:06-0500 38.7 36.0-44.5 % Final 5 MCV 06/21/2010 11:06-0500 92.4 81.5-97.5 fL Final 6 MCH 06/21/2010 11:06-0500 31.0 27.0-34.0 pg Final 7 MCHC 06/21/2010 11:06-0500 33.6 32.0-36.0 g/dL Final 8 RDW 06/21/2010 11:06-0500 13.2 11.5-15.5 % Final 9 PLT 06/21/2010 11:06-0500 287 150-400 K/uL Final 10 MPV 06/21/2010 11:06-0500 9.9 6.6-11.1 fL Final
--- OUTSIDE RECORDS SUMMARY | 2023-01-22 23:08 | External Medical Summary ---
Author Name Unknown Organization K09:[facility] [address] , [place] [address] Support Name Relationship Address Phone CHAIM RIVERA PROV Unknown Unavaila ble Laboratory Report Ordering Provider Test Date Status CHAIM RIVERA 06/21/2010 09:09-0500 Final Obs # Observation Date Value ABNL Reference Status Pe rforming Location 1 CK 06/21/2010 13:36-0500 35 34-174 U/L Final
--- OUTSIDE RECORDS SUMMARY | 2023-01-22 23:08 | External Medical Summary ---
Author Name Unknown Organization [employer] [facility] tem Support Name Relationship Address Phone Unavailable PROV Unknown Unavailable Laboratory Report Ordering Provider Test Date Status 02/08/2010 09:59-0400 F Obs # Observation Date Value ABNL Reference Status Pe rforming Location 1 HOURS FASTING 02/08/2010 09:59-0400 12 hours Final 2 Trigl SerPl-mCnc 02/08/2010 20:32-0400 209 60-245 mg/dL Final 3 Cholest SerPl-mCnc 02/08/2010 20:32-0400 216 H <200 mg/dL Final 4 HDLc SerPl-mCnc 02/08/2010 20:32-0400 62 H 40-59 mg/dL Final 5 Cholest/HDLc SerPl-mRto 02/08/2010 20:32-0400 3.5 Final 6 LDLc SerPl Calc-mCnc 02/08/2010 20:32-0400 112 H 0-100 mg/dL Final
--- OUTSIDE RECORDS SUMMARY | 2023-01-22 23:08 | External Medical Summary ---
Author Name Unknown Organization K01:[facility], [address] [id number] Support Name Relationship Address Phone CHAIM RIVERA PROV Unknown Unavaila ble Laboratory Report Ordering Provider Test Date Status SRINI GAGECHAIM 12/07/2010 10:42-0400 Final Obs # Observation Date Value ABNL Reference Status Pe rforming Location 1 aPTT 12/07/2010 20:20-0400 27 23-35 seconds Final
--- OUTSIDE RECORDS SUMMARY | 2023-01-22 23:08 | External Medical Summary ---
Author Name Unknown Organization K01:[facility], [address] [address] Support Name Relationship Address Phone CHAIM RIVERA PROV Unknown Unavaila ble Laboratory Report Ordering Provider Test Date Status SRINI GAGECHAIM 12/07/2010 10:42-0400 Final Obs # Observation Date Value ABNL Reference Status Pe rforming Location 1 PT 12/07/2010 20:20-0400 13.5 12.5-14.3 seconds Final 2 INR 12/07/2010 20:20-0400 1.01 0.94-1.12 Final
--- OUTSIDE RECORDS SUMMARY | 2023-01-22 23:08 | External Medical Summary ---
Author Name Unknown Organization K01:[facility], [address] [facility] [address] Support Name Relationship Address Phone CHAIM RIVERA PROV Unknown Unavaila ble Laboratory Report Ordering Provider Test Date Status CHAIM RIVERA 09/20/2010 09:52-0400 Final Obs # Observation Date Value ABNL Reference Status Pe rforming Location 1 HOURS FASTING 09/21/19 11 20:35-04 00 NOT PROVIDED hours Final 2 Triglyceride 09/21/19 11 20:35-04 00 189 60-245 mg/dL Final 3 Cholesterol 09/21/19 11 20:35-04 00 176 <200 mg/dL Final 4 HDL 09/21/19 11 20:35-04 00 52 40-59 mg/dL Final 5 Cholesterol / HDL ratio 09/21/19 11 20:35-04 00 3.4 Final 6 LDL (calculated) 09/21/19 11 20:35-04 00 86 0-129 mg/dL Final 7 LDL (calculated) 09/21/19 11 20:35-04 00 Final 8 LDL (calculated) 09/21/19 11 20:35-04 00 LIPID PANEL REFERENCE RANGES (mg/dL) Final 9 LDL (calculated) 09/21/19 11 20:35-04 00 Final 10 LDL (calculated) 09/21/19 11 20:35-04 00 LDL CHOLESTEROL Final 11 LDL (calculated) 09/21/19 11 20:35-04 00 <100 OPTIMAL GOAL FOR HIGH RISK PATIENTS Final 12 LDL (calculated) 09/21/19 11 20:35-04 00 100-129 NEAR OR ABOVE NORMAL Final 13 LDL (calculated) 09/21/19 11 20:35-04 00 130-159 BORDERLINE HIGH Final 14 LDL (calculated) 09/21/19 11 20:35-04 00 160-189 HIGH Final 15 LDL (calculated) 09/21/19 11 20:35-04 00 >189 VERY HIGH Final 16 LDL (calculated) 09/21/19 11 20:35-04 00 Final 17 LDL (calculated) 09/21/19 11 20:35-04 00 TOTAL CHOLESTEROL Final 18 LDL (calculated) 09/21/19 11 20:35-04 00 <200 DESIRABLE Final 19 LDL (calculated) 09/21/19 11 20:35-04 00 200-239 BORDERLINE HIGH Final 20 LDL (calculated) 09/21/19 11 20:35-04 00 >239 HIGH Final 21 LDL (calculated) 09/21/19 11 20:35-04 00 Final 22 LDL (calculated) 09/21/19 11 20:35-04 00 HDL [id number] Final 23 LDL (calculated) 09/21/19 11 20:35-04 00 <40 LOW Final 24 LDL (calculated) 09/21/19 11 20:35-04 00 40-59 NORMAL Final 25 LDL (calculated) 09/21/19 11 20:35-04 00 >59 HIGH Final
--- OUTSIDE RECORDS SUMMARY | 2023-01-22 23:08 | External Medical Summary ---
Author Name Unknown Organization K09:[facility] e, [address], [place] [address] Support Name Relationship Address Phone CHAIM RIVERA PROV Unknown Unavaila ble Laboratory Report Ordering Provider Test Date Status CHAIM RIVERA 06/21/2010 09:090500 Final Obs # Observation Date Value ABNL Reference Status Pe rforming Location 1 HOURS FASTING 06/21/19 11 09:10-05 00 12 hours Final 2 Triglyceride 06/21/19 11 18:57-05 00 178 60-245 mg/dL Final 3 Cholesterol 06/21/19 11 18:57-05 00 197 <200 mg/dL Final 4 HDL 06/21/19 11 18:57-05 00 74 H 40-59 mg/dL Final 5 Cholesterol / HDL ratio 06/21/19 11 18:57-05 00 2.7 Final 6 LDL (calculated) 06/21/19 11 18:57-05 00 87 0-129 mg/dL Final 7 LDL (calculated) 06/21/19 11 18:57-05 00 Final 8 LDL (calculated) 06/21/19 11 18:57-05 00 LIPID PANEL REFERENCE RANGES (mg/dL) Final 9 LDL (calculated) 06/21/19 11 18:57-05 00 Final 10 LDL (calculated) 06/21/19 11 18:57-05 00 LDL CHOLESTEROL Final 11 LDL (calculated) 06/21/19 11 18:57-05 00 <100 OPTIMAL GOAL FOR HIGH RISK PATIENTS Final 12 LDL (calculated) 06/21/19 11 18:57-05 00 100-129 NEAR OR ABOVE NORMAL Final 13 LDL (calculated) 06/21/19 11 18:57-05 00 130-159 BORDERLINE HIGH Final 14 LDL (calculated) 06/21/19 11 18:57-05 00 160-189 HIGH Final 15 LDL (calculated) 06/21/19 11 18:57-05 00 >189 VERY HIGH Final 16 LDL (calculated) 06/21/19 11 18:57-05 00 Final 17 LDL (calculated) 06/21/19 11 18:57-05 00 TOTAL CHOLESTEROL Final 18 LDL (calculated) 06/21/19 11 18:57-05 00 <200 DESIRABLE Final 19 LDL (calculated) 06/21/19 11 18:57-05 00 200-239 BORDERLINE HIGH Final 20 LDL (calculated) 06/21/19 11 18:57-05 00 >239 HIGH Final 21 LDL (calculated) 06/21/19 11 18:57-05 00 Final 22 LDL (calculated) 06/21/19 11 18:57-05 00 HDL [id number] Final 23 LDL (calculated) 06/21/19 11 18:57-05 00 <40 LOW Final 24 LDL (calculated) 06/21/19 11 18:57-05 00 40-59 NORMAL Final 25 LDL (calculated) 06/21/19 11 18:57-05 00 >59 HIGH Final
[2023-01-23] MEDS: traMADol HCL 50 MG TABLET PO SCH ×4 (02:43→20:34)
[2023-01-23] MEDS: methylPREDNISolone 4 MG TAB PO SCH ×2 (06:01→20:36)
[2023-01-23] MEDS ORDERED: methylPREDNISolone 4 MG TAB PO SCH (07:00)
[2023-01-23] MEDS: FAMOTIDINE 20 MG TAB PO SCH ×2 (09:23→20:36)
[2023-01-23] MEDS: GABAPENTIN 300 MG CAP PO SCH ×3 (09:24→20:36)
[2023-01-23] MEDS: FUROSEMIDE 20 MG TAB PO SCH (09:24)
[2023-01-23] MEDS: ISOSORBIDE MONO EXTENDED REL 30 MG TABCR PO SCH (09:24)
[2023-01-23] MEDS: DOCUSATE SODIUM 100 MG CAP PO SCH ×2 (09:24→20:38)
[2023-01-23] MEDS: TIMOLOL MALEATE 0.5% OP SOLN 5 ML BTL OP SCH (09:24)
[2023-01-23] MEDS: HEPARIN SOD 5,000 UNIT/0.5 ML VIAL SQ SCH ×2 (09:24→20:37)
--- NOTE | 2023-01-23 10:42 | Orthopedic Progress Note ---
Date of Service January 23, 2023 Assessment & Plan (1) Spinal stenosis of lumbar region: Plan: At this time we are planning for lumbar decompression and fusion next week. I will make her n.p.o. after midnight tonight in the event that we be able to find or time tomorrow to perform procedure. If not Monday looks very promising. All questions were addressed. Patient is comfortable at this time. Admission and Anticipated Discharge Date Admission Date: January 18, 2023 Subjective Patient continues to have incapacitating back and leg pain with any activity. Physical Exam Physical Exam: Patient is currently in bed. She is cooperative with exam. Is comfortable to sitting position. Results & Data Vital Signs (Past 12 Hours) Vital Signs Temp Pulse Pulse Resp BP BP Pulse Ox 01/23/23 08:43 57 L 18 143/77 H 93 01/23/23 07:32 56 L 01/23/23 03:02 36.7 C 58 L 18 122/78 95 01/22/23 23:38 61 01/22/23 22:56 36.5 C 61 18 112/70 97 O2 Del Method 01/23/23 08:43 Room Air 01/23/23 07:32 01/23/23 03:02 Room Air 01/22/23 23:38 01/22/23 22:56 Room Air
--- NOTE | 2023-01-23 13:59 | Hospitalist Progress Note ---
Date of Service January 23, 2023 Assessment & Plan (1) Back pain: Plan: Secondary to known spinal stenosis Pt reports having back pain for years but now unfortunately worsening and has difficulty to function at home, reports using a walker at home but per daughters it's difficult to deal with the pain takes gabapentin tramadol hydrocodone Was given decadron and oxycodone in the ED will start methylprednisolone pack, and add baclofen prn Appreciate pain management input and recommendation Medications will be adjusted by the pain therapist The patient will need to have follow-up appointment with [facility] neurosurgery department as planned and also with pain therapist in the [facility] MRI showed severe spinal stenosis She was referred to spine Ortho evaluation and recommendation Pain is reasonably controlled and awaiting decision about surgery The patient has decided to go for lumbar decompression fusion after discussion with the family members Pain is controlled at rest-does not have any bladder and or bowel retention Will get EKG today-otherwise medically cleared for the proposed surgery tomorrow Pt was referred to [facility] neurosurgery by PCP - currently has appointment scheduled for Feb 07. Trying to move up her appointment. Per ED provider - ED CM called [facility] neurosurgery office as well as [facility] to see how early pt can be possibly seen. PT/OT Cont. to closely monitor (2) CAD (coronary artery disease): Plan: S/P Stent to RCA in 2009 No CP. -continue aspirin, metoprolol, statin, imdur -Will get EKG , chest x-ray and echocardiographic before the proposed surgery -Echo of the heart showedmild concentric LVH, LV wall motion is normal, LV systolic function is normal with EF 55 to 60%, aortic valve sclerosis moderate without significant aortic valvular stenosis and grade 1 diastolic dysfunction -Awaiting EKG and the chest x-ray did not show any cardiomegaly under CHF -There will not be any contraindication to proposed surgery (3) HTN (hypertension): Plan: -monitor BP -cont. home lisinopril, imdur Hyperlipidemia - cont. home statin (4) Spinal stenosis: Plan: -as above (5) CKD (chronic kidney disease) stage 3, GFR 30-59 ml/min: Plan: Baseline: 1.1-1.3, current Cr at baseline - monitor renal function Admission and Anticipated Discharge Date Admission Date: January 18, 2023 Subjective 01/19/2023 The patient was seen and examined in medical telemetry unit in presence of the daughter She was admitted with severe pain with radiculopathy involving the lower back and posterior thighs She has been waiting to see neurosurgery at [facility] on of next month Denies any bladder and/or bowel problem and does have minimal weakness involving the legs 01/20/2023 The patient was seen and examined in medical telemetry unit Her pain seems to be reasonably controlled with current regimen of pain med ications She was seen by spine Ortho and awaiting decision for surgery Denies any other significant symptoms 01/21/2023 The patient was seen and examined in medical telemetry unit She has decided to go for lumbar surgery after discussion with the family members Pain seems to be controlled and denies any other symptoms 01/22/2023 The patient was seen and examined in medical telemetry unit Heart pain seems to be controlled at rest Complains back pain with radiation to the back of the thighs and buttock with any movement Awaiting lumbar spine surgery 01/23/2023 The patient was seen and examined in medical telemetry unit Her pain is controlled at rest She will go for lumbar fusion and decompression by Dr. Marina tomorrow Review of Systems Review of Systems: All systems reviewed and are unremarkable except as noted below Musculoskeletal: Severe lower back pain with radiculopathy mostly involving back of thighs Physical Exam Physical Exam: Sitting on a chair with moderate distress due to back pain Constitutional: well developed, well nourished, + ill appearing and + obese Eyes: PERRL, conjunctivae normal, anicteric sclerae ENMT: external ear and nose normal, oropharynx normal Neck: trachea midline, no thyromegaly Respiratory: no respiratory distress Auscultation: lungs clear to auscultation bilaterally Cardiovascular: Rate/Rhythm: regular rate and regular rhythm; not tachycardic Heart Sounds: normal S1 and normal S2; no murmur Extremities: no edema Gastrointestinal (Abdomen): Inspection/Auscultation: normal bowel sounds; abdomen not distended Percussion/Palpation: abdomen soft; abdomen nontender Neurologic: normal touch/pain/proprioception and moves all extremities; no focal motor deficits Psychiatric: A+Ox3, euthymic affect Lymphatic: no cervical or axillary lymphadenopathy Results & Data Results & Data Vital Signs (Past 12 Hours) Vital Signs Temp Pulse Pulse Resp BP BP Pulse Ox 01/23/23 12:44 36.8 C 52 L 16 126/75 97 01/23/23 08:43 57 L 18 143/77 H 93 01/23/23 07:32 56 L 01/23/23 03:02 36.7 C 58 L 18 122/78 95 O2 Del Method 01/23/23 12:44 Room Air 01/23/23 08:43 Room Air 01/23/23 07:32 01/23/23 03:02 Room Air Medications Administered Current Inpatient Medications Acetaminophen (Acetaminophen 325 Mg Tab) 650 mg PO Q4H PRN PRN Reason: Pain or Fever Stop: 02/17/23 18:14 Last Admin: 01/20/23 13:12 Dose: 650 mg Aspirin (Aspirin 81 Mg Ectab) 81 mg PO PM PATEL Stop: 02/17/23 20:59 Last Admin: 01/22/23 21:01 Dose: 81 mg Baclofen (Baclofen 10 Mg Tab) 10 mg PO TID PRN PRN Reason: back spasm pain Stop: 02/17/23 20:59 Last Admin: 01/20/23 17:58 Dose: 10 mg Diclofenac Sodium (Diclofenac Sod 1% Gel 100 Gm Tube) 0 gm EXT QID PRN PRN Reason: Pain Stop: 02/18/23 08:59 Docusate Sodium (Docusate Sodium 100 Mg Cap) 100 mg PO BID PATEL Stop: 02/18/23 20:59 Last Admin: 01/23/23 09:24 Dose: 100 mg Famotidine (Famotidine 20 Mg Tab) 20 mg PO BID PATEL Stop: 02/17/23 20:59 Last Admin: 01/23/23 09:23 Dose: 20 mg Furosemide (Furosemide 20 Mg Tab) 20 mg PO DAILY PATEL Stop: 02/18/23 08:59 Last Admin: 01/23/23 09:24 Dose: 20 mg Gabapentin (Gabapentin 300 Mg Cap) 300 mg PO TID PATEL Stop: 02/17/23 18:14 Last Admin: 01/23/23 09:24 Dose: 300 mg Heparin Sodium (Porcine) (Heparin Sod 5,000 Unit/0.5 Ml Vial) 5,000 units SQ Q12 PATEL Stop: 02/19/23 20:59 Last Admin: 01/23/23 09:24 Dose: 5,000 units Isosorbide Mononitrate (Isosorbide [place] Extended Rel 30 Mg Tabcr) 30 mg PO DAILY PATEL Stop: 02/18/23 08:59 Last Admin: 01/23/23 09:24 Dose: 30 mg Lisinopril (Lisinopril 10 Mg Tab) 10 mg PO PM PATEL Stop: 02/17/23 20:59 Last Admin: 01/22/23 20:59 Dose: 10 mg Methylprednisolone (Methylprednisolone 4 Mg Tab) 4 mg PO 0700,2100 PATEL Stop: 01/23/23 21:01 Last Admin: 01/23/23 06:01 Dose: 4 mg Methylprednisolone (Methylprednisolone 4 Mg Tab) 4 mg PO 0700 PATEL Stop: 01/24/23 07:01 Metoprolol Succinate (Metoprolol Succ 25mg Ext Rel Tab) 12.5 mg PO PM PATEL Stop: 02/17/23 20:59 Last Admin: 01/22/23 20:59 Dose: 12.5 mg Polyethylene Glycol (Polyethylene (Miralax) 17 Gm Pack) 17 gm PO DAILY PRN PRN Reason: Constipation Stop: 02/18/23 15:33 Last Admin: 01/22/23 10:06 Dose: 17 gm Rosuvastatin Calcium (Rosuvastatin Calcium 20 Mg Tab) 20 mg PO PM PATEL Stop: 02/17/23 20:59 Last Admin: 01/22/23 20:59 Dose: 20 mg Timolol Maleate (Timolol Maleate 0.5% Op Soln 5 Ml Btl) 1 drops OP DAILY PATEL Stop: 02/18/23 08:59 Last Admin: 01/23/23 09:24 Dose: 1 drops Tramadol HCl (Tramadol Hcl 50 Mg Tablet) 50 mg PO Q6H PATEL Stop: 02/19/23 08:59 Last Admin: 01/23/23 09:26 Dose: 50 mg Travoprost (Travoprost Z 0.004% Oph Soln 2.5 Ml Btl) 1 drops OPB HS PATEL Stop: 02/17/23 20:59 Last Admin: 01/22/23 20:59 Dose: 1 drops Vitamin D (Cholecalciferol 1,000 Units 25 Mcg Tab) 1,000 units PO PM PATEL Stop: 02/17/23 20:59 Last Admin: 01/22/23 21:01 Dose: 1,000 units
[2023-01-23] MEDS: TRAVOPROST Z 0.004% OPH SOLN 2.5 ML BTL OPB SCH (20:34)
[2023-01-23] MEDS: ROSUVASTATIN CALCIUM 20 MG TAB PO SCH (20:35)
[2023-01-23] MEDS: METOPROLOL SUCC 25MG EXT REL TAB PO SCH (20:36)
[2023-01-23] MEDS: lisinopril 10 MG TAB PO SCH (20:36)
[2023-01-23] MEDS: CHOLECALCIFEROL 1,000 UNITS 25 MCG TAB PO SCH (20:37)
[2023-01-23] MEDS: ASPIRIN 81 MG ECTAB PO SCH (20:37)
--- NOTE | 2023-01-23 23:33 | Electrocardiogram Report ---
Test Reason : Blood Pressure : / mmHG Vent. Rate : 063 BPM Atrial Rate : 063 BPM P-R Int : 164 ms QRS Dur : 108 ms QT Int : 394 ms P-R-T Axes : 076 -42 071 degrees QTc Int : 403 ms Normal sinus rhythm Left axis deviation Low voltage QRS Nonspecific ST and T wave abnormality Poor R wave progression, consider anterior HI vs. lead placement vs. LVH Abnormal ECG When compared with ECG of 13-AUG-2018 12:12, QRS axis Shifted left T wave inversion no longer evident in Inferior leads Nonspecific T wave abnormality now evident in Lateral leads Premature ventricular complexes are no longer Present Confirmed by Skyler Segal ([id number]) on 01/23/2023 11:33:10 PM Referred By: REFERRED SELF Confirmed By:Skyler Segal
[2023-01-24] MEDS: traMADol HCL 50 MG TABLET PO SCH ×4 (03:28→20:40)
[2023-01-24] MEDS ORDERED: methylPREDNISolone 4 MG TAB PO SCH (07:00)
[2023-01-24 09:09] LABS: Basophils # (auto) 0.03 K/uL (0.00-0.20); Basophils % (auto) 0.3 %; Eosinophils # (auto) 0.28 K/uL (0.00-0.50); Eosinophils % (auto) 2.4 %; Hematocrit (blood only) 37.8 % (37.0-47.0); Hemoglobin 12.5 g/dl (12.0-16.0); Immature Granulocytes % (auto) 0.9 %; Lymphocytes # (auto) 1.57 K/uL (1.20-3.40); Lymphocytes % (auto) 13.6 %; Mean Corpuscular Hgb Conc 33.1 g/dL (32.0-36.0); Mean Corpuscular Volume 93.8 fL (80.0-100.0); Mean Platelet Volume 10.3 fL (9.4-12.4); Monocytes # (auto) 1.08 K/uL (0.11-0.59); Monocytes % (auto) 9.4 %; Neutrophils # (auto) 8.46 K/uL (1.40-6.50); Neutrophils % (auto) 73.4 %; Platelet Count 288 K/uL (130-400); RDW Coefficient of Variation 12.9 % (11.5-14.5); RDW Standard Deviation 44.4 fL (36.4-46.3); Red Blood Count 4.03 M/uL (4.20-5.40); White Blood Count 11.52 K/ul (4.8-10.8)
[2023-01-24] MEDS: ISOSORBIDE MONO EXTENDED REL 30 MG TABCR PO SCH (09:25)
[2023-01-24] MEDS: FUROSEMIDE 20 MG TAB PO SCH (09:25)
[2023-01-24] MEDS: FAMOTIDINE 20 MG TAB PO SCH ×2 (09:25→20:41)
[2023-01-24] MEDS: GABAPENTIN 300 MG CAP PO SCH ×3 (09:25→20:41)
[2023-01-24] MEDS: DOCUSATE SODIUM 100 MG CAP PO SCH ×2 (09:25→20:42)
[2023-01-24] MEDS: TIMOLOL MALEATE 0.5% OP SOLN 5 ML BTL OP SCH (09:26)
[2023-01-24] MEDS: HEPARIN SOD 5,000 UNIT/0.5 ML VIAL SQ SCH ×2 (09:26→20:42)
--- NOTE | 2023-01-24 10:13 | Orthopedic Progress Note ---
Date of Service January 24, 2023 Assessment & Plan (1) Spinal stenosis of lumbar region: Plan: She will be made n.p.o. after midnight and plan for surgery tomorrow. Admission and Anticipated Discharge Date Admission Date: January 18, 2023 Subjective Patient continues to have significant back and leg pain Physical Exam Physical Exam: Patient is currently in bed she is comfortable at rest. Neurologically intact. Results & Data Vital Signs (Past 12 Hours) Vital Signs Temp Pulse Pulse Resp BP BP Pulse Ox 01/24/23 07:21 36.7 C 57 L 18 119/75 95 01/24/23 07:07 54 L 01/24/23 02:47 36.5 C 58 L 18 117/73 96 01/24/23 00:01 56 L 01/23/23 23:09 36.3 C L 58 L 18 109/71 96 O2 Del Method 01/24/23 07:21 Room Air 01/24/23 07:07 01/24/23 02:47 Room Air 01/24/23 00:01 01/23/23 23:09 Room Air
[2023-01-24 10:14] LABS: Magnesium 1.9 mg/dl (1.7-2.4); Potassium 5.4 mmol/L (3.5-5.1)
[2023-01-24 10:19] LABS: BUN Creatinine Ratio 29.4 (10-20); Creatinine Clr Calc Pharmacy 27.8 ml/min; Est GFR (African American) 38.1 ml/min; Est GFR (Non-African American) 32.8 ml/min
[2023-01-24] MEDS: SODIUM CHLORIDE 0.9% 1,000 ML IV SCH ×2 (11:01→23:53)
[2023-01-24] MEDS: ROSUVASTATIN CALCIUM 20 MG TAB PO SCH (20:41)
[2023-01-24] MEDS: lisinopril 10 MG TAB PO SCH (20:41)
[2023-01-24] MEDS: METOPROLOL SUCC 25MG EXT REL TAB PO SCH (20:42)
[2023-01-24] MEDS: CHOLECALCIFEROL 1,000 UNITS 25 MCG TAB PO SCH (20:43)
[2023-01-24] MEDS: ASPIRIN 81 MG ECTAB PO SCH (20:43)
[2023-01-24] MEDS: TRAVOPROST Z 0.004% OPH SOLN 2.5 ML BTL OPB SCH (20:44)
[2023-01-25] MEDS: traMADol HCL 50 MG TABLET PO SCH ×3 (04:49→16:51)
--- NOTE | 2023-01-25 06:52 | Anesthesiology Consultation ---
Date of Service January 25, 2023 Assessment & Plan Chart Review Chart Review: entry level finance initiated History Surgery Operation Date: 01/25/23 12:45 Proposed Procedures p L4-S1 Decompression and Fusion, Spinal Cord Monitoring - Jace Marina DO Height/Weight Height: 5 ft 2 in Weight: 84.7 kg Allergies Allergy/AdvReac Type Severity Reaction Status Date / Time No Known Allergies Allergy Verified 10/20/21 13:29 Medications Home Medications Medication Instructions Recorded Confirmed Last Taken aspirin 81 mg tablet,delayed 81 mg PO PM 08/13/18 01/18/23 01/29/19 17:00 release cholecalciferol (vitamin D3) 25 1,000 unit PO PM 08/13/18 01/18/23 01/29/19 17:00 mcg (1,000 unit) tablet (Vitamin D3) lisinopril 10 mg tablet 10 mg PO PM 08/13/18 01/18/23 01/29/19 17:00 metoprolol succinate 25 mg 12.5 mg PO PM 08/13/18 01/18/23 01/29/19 17:00 tablet,extended release 24 hr ropinirole 0.25 mg tablet See Rx Instructions .Route .COMPLEX 08/13/18 01/18/23 01/29/19 17:00 rosuvastatin 20 mg tablet 20 mg PO PM 08/13/18 01/18/23 01/29/19 17:00 travoprost 0.004 % eye drops 1 drp OPB HS 08/13/18 01/18/23 01/29/19 21:00 (Travatan Z) tramadol 50 mg tablet 50 mg PO Q6H PRN Pain 10/02/18 01/18/23 10/01/18 acetaminophen 500 mg tablet 500 mg PO Q6H PRN Pain 01/28/19 01/18/23 Unknown diclofenac sodium 1 % gel topical 0 g topical QID 08/30/21 01/18/23 Unknown kit famotidine 20 mg tablet 20 mg PO BID 08/30/21 01/18/23 Unknown furosemide 20 mg tablet 20 mg PO DAILY 08/30/21 01/18/23 Unknown isosorbide mononitrate 30 mg 0 mg PO DAILY 08/30/21 01/18/23 Unknown tablet,extended release 24 hr timolol maleate 0.5 % eye drops 1 drp ophthalmic (eye) DAILY 08/30/21 01/18/23 Unknown gabapentin 300 mg capsule See Rx Instructions .Route .COMPLEX 11/29/22 01/18/23 Unknown Active Medications Generic Name Dose Route Start Last Admin Trade Name Konstantin PRN Reason Stop Dose Admin Acetaminophen 650 mg 01/18/23 18:15 01/20/23 13:12 Acetaminophen 325 Mg Tab PO 02/17/23 18:14 650 mg Q4H PRN Administration Pain or Fever Aspirin 81 mg 01/18/23 21:00 01/24/23 20:43 Aspirin 81 Mg Ectab PO 02/17/23 20:59 81 mg PM PATEL Administration Baclofen 10 mg 01/18/23 18:21 01/20/23 17:58 Baclofen 10 Mg Tab PO 02/17/23 20:59 10 mg TID PRN Administration back spasm pain Docusate Sodium 100 mg 01/19/23 21:00 01/24/23 20:42 Docusate Sodium 100 Mg Cap PO 02/18/23 20:59 Not Given BID PATEL Famotidine 20 mg 01/18/23 21:00 01/24/23 20:41 Famotidine 20 Mg Tab PO 02/17/23 20:59 20 mg BID PATEL Administration Furosemide 20 mg 01/19/23 09:00 01/24/23 09:25 Furosemide 20 Mg Tab PO 02/18/23 08:59 20 mg DAILY PATEL Administration Gabapentin 300 mg 01/18/23 18:15 01/24/23 20:41 Gabapentin 300 Mg Cap PO 02/17/23 18:14 300 mg TID PATEL Administration Heparin Sodium (Porcine) 5,000 units 01/20/23 21:00 01/24/23 20:42 Heparin Sod 5,000 Unit/0.5 Ml Vial SQ 02/19/23 20:59 5,000 units Q12 PATEL Administration Sodium Chloride 1,000 mls @ 80 mls/hr 01/24/23 10:45 01/24/23 23:53 Nss 1000ml IV 02/23/23 10:44 80 mls/hr .[id number] PATEL Administration Isosorbide Mononitrate 30 mg 01/19/23 09:00 01/24/23 09:25 Isosorbide Jewell Extended Rel 30 Mg Tabcr PO 02/18/23 08:59 30 mg DAILY PATEL Administration Lisinopril 10 mg 01/18/23 21:00 01/24/23 20:41 Lisinopril 10 Mg Tab PO 02/17/23 20:59 10 mg PM PATEL Administration Metoprolol Succinate 12.5 mg 01/18/23 21:00 01/24/23 20:42 Metoprolol Succ 25mg Ext Rel Tab PO 02/17/23 20:59 12.5 mg PM PATEL Administration Polyethylene Glycol 17 gm 01/19/23 15:34 01/22/23 10:06 Polyethylene (Miralax) 17 Gm Pack PO 02/18/23 15:33 17 gm DAILY PRN Administration Constipation Rosuvastatin Calcium 20 mg 01/18/23 21:00 01/24/23 20:41 Rosuvastatin Calcium 20 Mg Tab PO 02/17/23 20:59 20 mg PM PATEL Administration Timolol Maleate 1 drops 01/19/23 09:00 01/24/23 09:26 Timolol Maleate 0.5% Op Soln 5 Ml Btl OP 02/18/23 08:59 1 drops DAILY PATEL Administration Tramadol HCl 50 mg 01/20/23 09:00 01/25/23 04:49 Tramadol Hcl 50 Mg Tablet PO 02/19/23 08:59 50 mg Q6H PATEL Administration Travoprost 1 drops 01/18/23 21:00 01/24/23 20:44 Travoprost Z 0.004% Oph Soln 2.5 Ml Btl OPB 02/17/23 20:59 1 drops HS PATEL Administration Vitamin D 1,000 units 01/18/23 21:00 01/24/23 20:43 Cholecalciferol 1,000 Units 25 Mcg Tab PO 02/17/23 20:59 1,000 units PM PATEL Administration Past Medical History Medical History Aspiration pneumonia CAD (coronary artery disease) "DENA to RCA 06/2009 cath 06/2010 showed widely patent RCA and no progression of disease" Chronic back pain CKD (chronic kidney disease) stage 3, GFR 30-59 ml/min Degenerative disc disease Diverticulitis Dyslipidemia Fibromyalgia GERD (gastroesophageal reflux disease) Glaucoma bilt Hearing deficit History of anesthesia reaction aspirated during colonoscopy at [facility] 5-7yrs ago--taken to [facility] and admitted for 2 nights in ICU--no further issues, had colonoscopy 10/09/18 @ [facility] with no issues History of DVT (deep vein thrombosis) 15 yrs? ago--left leg after left knee sx HTN (hypertension) Hypercalcemia Hyperparathyroidism Lumbosacral radiculopathy due to degenerative joint disease of spine Macular degeneration Osteoarthritis Spinal stenosis Spinal stenosis of lumbar region Spondylolisthesis Past Family History Family History Brother Myocardial infarction Other Cancer Heart disease Hypertension No family history of adverse response to anesthesia Past Surgical History Surgical History H/O cataract removal with insertion of prosthetic lens bilt H/O heart artery stent "DENA to RCA in 2009" x1 History of cardiac cath 2009 with 1 stent--follows with Dr. Harris History of carpal tunnel surgery bilt History of colonoscopy History of hysterectomy with unilateral oophorectomy History of left hip replacement History of right hip replacement History of tooth extraction all upper teeth History of total left knee replacement (TKR) History of total right knee replacement (TKR) Social History Smoking Status: Never smoker Smoking cigarettes per day: 0 Do You Dip or Chew Tobacco: No Hx Alcohol Use: Yes Alcohol type: hard liquor alcohol intake frequency: holidays/special occasions only Hx Substance Use: No substance use type: does not use Physical Exam Vital Signs Last Vital Signs Temp 98.2 F 01/25/23 03:00 Pulse 63 01/25/23 03:00 Resp 16 01/25/23 03:00 BP 102/66 01/25/23 03:00 Pulse Ox 95 01/25/23 03:00 O2 Del Method Room Air 01/25/23 03:00 Testing Laboratory Results 01/24/23 07:31 01/24/23 07:31 Electrocardiogram Date: 01/22/23 Normal sinus rhythm Left axis deviation Low voltage QRS Nonspecific ST and T wave abnormality Poor R wave progression, consider anterior ME vs. lead placement vs. LVH Abnormal ECG When compared with ECG of 13-AUG-2018 12:12, QRS axis Shifted left T wave inversion no longer evident in Inferior leads Nonspecific T wave abnormality now evident in Lateral leads Premature ventricular complexes are no longer Present Confirmed by Skyler Segal ([id number]) on 01/23/2023 11:33:10 PM Chest X-Ray Date: 01/21/23 Findings: + NAD Echocardiogram Date: 01/21/23 Mild concentric LVH LV wall motion is normal LV systolic function is normal EF 55-60% AV sclerosis moderate, without significant AV stenosis Grade 1 diastolic dysfunction
[2023-01-25] MEDS ORDERED: DEXTROSE 50% 50 ML SYRINGE IV STA (08:05)
[2023-01-25] MEDS ORDERED: STAT IV STA (08:05)
[2023-01-25] MEDS: HEPARIN SOD 5,000 UNIT/0.5 ML VIAL SQ SCH (08:08)
[2023-01-25] MEDS ORDERED: ALBUTEROL 0.5% NEB SOLN 2.5 MG/0.5 ML VIAL NEB ONE (08:08)
[2023-01-25] MEDS ORDERED: FUROSEMIDE INJ 20 MG/2 ML VIAL IV ONE (08:10)
[2023-01-25] MEDS ORDERED: INSULIN HUMAN REGULAR PER UNIT 10 UNITS in SYRINGE 9.9 ML IV STA (08:13)
[2023-01-25] MEDS ORDERED: CALCIUM GLUCONATE 10% 1,000 MG in DEXTROSE 5% 50 ML IV ONE (08:15)
[2023-01-25] MEDS: DOCUSATE SODIUM 100 MG CAP PO SCH ×2 (08:43→20:59)
[2023-01-25] MEDS: ISOSORBIDE MONO EXTENDED REL 30 MG TABCR PO SCH (08:43)
[2023-01-25] MEDS: FAMOTIDINE 20 MG TAB PO SCH ×2 (08:44→21:00)
[2023-01-25] MEDS: GABAPENTIN 300 MG CAP PO SCH ×3 (08:44→21:00)
[2023-01-25 09:08] LABS: BUN Creatinine Ratio 31.9 (10-20); Calcium 9.5 mg/dl (8.6-10.3); Creatinine Clr Calc Pharmacy 28.4 ml/min; Est GFR (African American) 38.7 ml/min; Est GFR (Non-African American) 33.4 ml/min; Potassium 4.6 mmol/L (3.5-5.1)
--- NOTE | 2023-01-25 10:14 | History & Physical Bridge Note ---
Date of Service January 25, 2023 History & Physical Bridge Note I have examined the patient, reviewed the History & Physical and in the interval since the performance of the History & Physical I have noted the following changes of clinical significance: no changes noted Patient continues to demonstrate neurologic decline with progressive strength deficit urinary incontinence and severe pain with any attempted ambulation. Subsequently recommending emergent decompression and fusion to prevent further neurologic deterioration and permanent damage.
[2023-01-25] MEDS: TIMOLOL MALEATE 0.5% OP SOLN 5 ML BTL OP SCH (10:43)
[2023-01-25] MEDS: SODIUM CHLORIDE 0.9% 1,000 ML IV SCH ×2 (10:44→16:54)
[2023-01-25] MEDS ORDERED: LIDOCAINE 2% 2 ML VIAL/AMP(20MG/ML) INFIL ONE (11:11)
[2023-01-25] MEDS ORDERED: ROCURONIUM BROMIDE 10 MG/ML 5 ML VIAL IV ONE (11:11)
[2023-01-25] MEDS ORDERED: fentaNYL citrate PF 100 MCG/2 ML VIAL ONE (11:11)
[2023-01-25] MEDS ORDERED: DEXAMETHASONE SOD INJ 4 MG/ML VIAL ONE (11:11)
[2023-01-25] MEDS ORDERED: MIDAZOLAM HCL 1 MG/ML 2ML VIAL ONE (11:11)
[2023-01-25] MEDS ORDERED: PROPOFOL IV EMULSION 10 MG/ML 20 ML VIAL IV ONE (11:11)
[2023-01-25] MEDS ORDERED: ONDANSETRON INJ 2 MG/ML 2 ML VIAL ONE (11:11)
[2023-01-25] MEDS ORDERED: SUGAMMADEX SODIUM 200 MG/2 ML VIAL IV ONE (11:12)
[2023-01-25] MEDS ORDERED: fentaNYL citrate PF 100 MCG/2 ML VIAL IV PRN (11:55)
[2023-01-25] MEDS ORDERED: ATROPINE SULFATE 0.1 MG/ML 10ML SYR IV PRN (11:55)
[2023-01-25] MEDS ORDERED: ONDANSETRON INJ 2 MG/ML 2 ML VIAL IV PRN ×2 (11:55→16:46)
[2023-01-25] MEDS ORDERED: ePHEDrine sulfate 50 MG/ML AMP IV PRN (11:55)
[2023-01-25] MEDS ORDERED: ceFAZolin 2000MG 2,000 MG/15 ML SYR IV ONE (13:09)
[2023-01-25] MEDS ORDERED: ceFAZolin 2,000 MG/15 ML IV PUSH IV ONE (13:10)
[2023-01-25] MEDS ORDERED: BUPIVACAINE/EPINEPHRINE 0.25% 1:200,000 30 ML VIAL ONE (13:10)
[2023-01-25] MEDS ORDERED: ceFAZolin 330 MG/ML 1 GM VIAL ONE (13:10)
[2023-01-25] MEDS ORDERED: FLOSEAL HEMOSTATIC MATRIX 10ML TOP ONE (14:15)
--- NOTE | 2023-01-25 15:29 | Hospitalist Progress Note ---
Date of Service January 25, 2023 Assessment & Plan (1) Back pain: Plan: Back pain Secondary to Lumbar spinal stenosis Pt reports having back pain for years but now unfortunately worsening and has difficulty to function at home, reports using a walker at home but per daughters it's difficult to deal with the pain. takes gabapentin tramadol hydrocodone --MRI Lumbar Spine:Multilevel degenerative changes with up to severe canal stenosis, AP diameter and 3 mm, and severe bilateral neuroforaminal stenosis. Pain management, orthopedics consulted Plan for lumbar surgery today Monitor for postop anemia Bowel regimen to prevent constipation P T/OT as able Pain control Fall precautions Hyperkalemia Hold lisinopril resume Lasix as able Monitor Hypertension Hold lisinopril Continue metoprolol, Imdur with holding parameters Continue IV fluids Monitor (2) CAD (coronary artery disease): Plan: S/P Stent to RCA in 2009 -continue aspirin, metoprolol, statin, imdur --Echo :mild concentric LVH, LV wall motion is normal, LV systolic function is normal with EF 55 to 60%, aortic valve sclerosis moderate without significant aortic valvular stenosis and grade 1 diastolic dysfunction -Continue home medications (3) HTN (hypertension): Plan: Hyperlipidemia -continue statin (4) Spinal stenosis: Plan: -as above (5) CKD (chronic kidney disease) stage 3, GFR 30-59 ml/min: Plan: Baseline: 1.1-1.3 Monitor renal function Plan DVT Px: Heparin SQ Code Status DNI/DNR Admission and Anticipated Discharge Date Admission Date: January 18, 2023 Subjective Patient is seen and examined at bedside States having chronic bilateral lower extremity pain associated with tingling and numbness Also reports chronic back pain Plan for back surgery today Denies any chest pain, dyspnea, dizziness, nausea, vomiting No other complaints Review of Systems Review of Systems: All systems reviewed & are unremarkable except as noted in Subjective Physical Exam Physical Exam: Physical Exam: Vitals signs as noted above General Appearance:Obese, no apparent distress Head: normocephalic, Atraumatic Eyes: normal inspection, EOMI Neck: supple, Trachea midline Respiratory/Chest: Normal breath sounds, CTA, No accessory muscle use Cardiovascular: S1, S2, No murmur Abdomen/GI:Soft, Non tender, Bowel sounds present Extremities/Musculoskeletal:normal inspection, Trace edema Neurologic/Psych:AAOX3, grossly no focal neurological deficits Skin: normal color, warm Results & Data Results & Data Vital Signs (Past 12 Hours) Vital Signs Temp Pulse Pulse Resp BP Pulse Ox O2 Del Method 01/25/23 11:33 36.6 C 61 16 92/60 L 90 Room Air 01/25/23 09:48 66 18 94 Room Air 01/25/23 07:35 36.5 C 65 16 104/68 95 Room Air 01/25/23 07:[address] [facility] 01/25/23 08:02 Sodium 137 Potassium 4.6 Chloride 103 Carbon Dioxide 28 BUN 45 H Creatinine 1.41 H Glucose 88 Calcium 9.5
--- NOTE | 2023-01-25 15:40 | Operative Report ---
Post Operative Report Pre & Post Diagnosis Operation Date: 01/25/23 12:45 Pre-Op Diagnosis: Spinal stenosis of lumbar region Spondylolisthesis L4-L5 Post-Op Diagnosis: Spinal stenosis of lumbar region same I identified the patient and participated in the time-out.: Yes Procedure Operation Date: 01/25/23 12:45 Actual Procedures #1 lumbar compression bilaterally vasectomies and foraminotomies L3-4 L4-5 L5- S1. #2 posterior spinal fusion L4-L5 L5-S1. #3 please posterior instrumentation L4-5 L5-S1. #4 interbody fusion L4-L5 L5-S1. #5 placement spi ral 10 x 26 mm at L4-L5 and 1 x 26 mm L5-S1. 6 placement locally harvested morselized autograft in the posterior gutters. #7 placement of I factor in the interbody spaces and infuse collagen sponge, mass graft in the posterior gutters. Surgeon Jace Marina, Golf Tournament Consultant Abbie Napier Estimated Blood Loss 250 Findings See Below The patient is 5 foot 2 weighing over 84 kg with a BMI in excess of 34 but the patient's body habitus did contribute to significant technical difficulty requiring her to put retractors longer instruments in order to perform her procedure. This at least 50% increased operative time. Specimens None Indications This is a 87-year-old female presents above-mentioned diagnosis after failing course of nonoperative care she is here for surgical invention. Description of Procedure Patient was met with identified informed consent obtained. Patient was then taken to the operative suite underwent patient placed in a prone position inject table topicals and frame. All bony prominences well-padded eyes inspected to ensure no external pressure of the spine. This point the lumbar spine was prepped and draped in normal sterile fashion. Sharp dissection with the assistance of Bovie cautery form down to and exposing the lamina and transverse processes of L for L5 and sacral ala bilaterally. From caudal cephalad fashion complete laminectomy L5 L4 L3 was performed including bilateral medial facetectomies and foraminotomies addressing severe spinal stenosis and neural compression. Pedicle screws were then placed inL4 L5 and S1 levels bilaterally with assistance of fluoroscopy and the properly sized chana placed. Bilateral transforaminal put on the left we discectomy L5-S1 was performed endplates guarded to subcortical mean bone and 11 x 26 mm prior cage with I factor tapped position. Then proceeded to the and again by way of a transparent approach and left complete discectomy performed endplates guarded to subcortical bleeding bone and a 10 x 26 mm prior cage with hyperextension position. The rods were then locked in final position bilaterally. The transverse processes of L4-5 and sacral ala burred to subcortical bone. Infuse collagen sponge, mass graft and locally harvested morselized allograft was then placed in the posterior gutters. 15 round ROGERS inserted. The incision was then closed with 1 Vicryl fascia 2-0 Vicryl subcutaneously and 4 Monocryl for final skin closure. Steri-Strips sterile dressings placed. Patient waken taken PACU stable addition. Please note spinal cord monitoring was utilized at the procedure no changes noted. Lastly Abbie Napier was present that the entire surgeon on the patient positioning complex portion of the surgery and final skin closure. L4-L5 I attest to the content of the Intraoperative Record and any orders documented therein. Any exceptions are noted below.
--- NOTE | 2023-01-25 16:17 | Fluoroscopy Report ---
FL lumbar spine 2-3V CLINICAL HISTORY: L4-S1 DECOMP/FUSION TECHNIQUE: 2 views were obtained with the C-arm in the OR with the above procedure. Total fluoroscopy time was 21 seconds. Radiation dose was 17.07 mGy. Comparison: Comparison is made to MRI lumbar spine 01/19/2023 FINDINGS/IMPRESSION: Intraoperative images were obtained of lumbar spine decompression/fusion at L4 S 1. Please correlate with intraoperative fluoroscopy and operative report. ACT 112: Negative or not required by law. Electronically signed by: Boone Belle M.D. 01/25/2023 4:16 PM
--- NOTE | 2023-01-25 16:44 | Anesthesiology Progress Note ---
Date of Service January 25, 2023 Anesthesia Post Procedure Vital Signs Vital Signs: Temp Pulse Pulse Pulse Resp BP BP 01/25/23 16:20 36.4 C L 65 20 107/53 L 01/25/23 16:10 66 14 106/55 L 01/25/23 16:00 69 15 113/53 L 01/25/23 15:51 36.7 C 69 13 115/59 L 01/25/23 11:33 36.6 C 61 16 92/60 L 01/25/23 09:48 66 18 01/25/23 07:35 36.5 C 65 16 104/68 01/25/23 07:28 62 01/25/23 03:00 36.8 C 63 16 102/66 01/24/23 21:59 61 01/24/23 23:01 36.6 C 58 L 16 95/60 L 01/24/23 19:45 36.9 C 65 18 108/71 01/24/23 17:12 62 Pulse Ox O2 Del Method O2 Flow Rate 01/25/23 16:20 95 Nasal Cannula 2 01/25/23 16:10 97 Nasal Cannula 3 01/25/23 16:00 95 Oxymask 11 01/25/23 15:51 96 Oxymask 11 01/25/23 11:33 90 Room Air 01/25/23 09:48 94 Room Air 01/25/23 07:35 95 Room Air 01/25/23 07:28 01/25/23 03:00 95 Room Air 01/24/23 21:59 01/24/23 23:01 96 Room Air 01/24/23 19:45 94 Room Air 01/24/23 17:12 Pain Intensity Back: Pain Intensity: 5 Transfer of Care Handoff Completed per policy Notes Mental Status: alert / awake / arousable and participated in evaluation Patient Amnestic to Procedure: Yes Nausea / Vomiting: adequately controlled Pain: adequately controlled Airway Patency, RR, SpO2: stable & adequate BP & HR: stable & adequate Hydration State: stable & adequate Anesthetic Complications: no major complications apparent and Pt Satisfied with anesthetic care
[2023-01-25] MEDS ORDERED: ONDANSETRON 4 MG OD TAB PO PRN (16:46)
[2023-01-25] MEDS ORDERED: ALUMINUM/MAGNESIUM SUSP 30 ML UDC PO PRN (16:46)
[2023-01-25] MEDS ORDERED: HYDROmorphone INJ 1 MG/ML SYRINGE IV PRN (16:46)
[2023-01-25] MEDS ORDERED: NALOXONE HCL 0.4 MG/1 ML VIAL/CARP IV PRN (16:46)
[2023-01-25] MEDS ORDERED: hydrOXYzine HCl 25 MG TAB PO PRN (16:46)
[2023-01-25] MEDS ORDERED: ACETAMINOPHEN 500 MG TAB PO PRN (16:46)
[2023-01-25] MEDS ORDERED: SOD PHOSPHATE/SOD BIPHOSPHATE ENEMA 132 ML BTL PR PRN (16:46)
[2023-01-25] MEDS ORDERED: MAGNESIUM HYDROXIDE SUSP 30 ML UDC PO PRN (16:46)
[2023-01-25] MEDS ORDERED: ACETAMINOPHEN 1,000 MG/100 ML VIAL IV PRN (16:46)
[2023-01-25] MEDS ORDERED: LORazepam 0.5 MG TAB PO PRN (16:46)
[2023-01-25] MEDS ORDERED: PROMETHAZINE HCL 12.5 MG in SODIUM CHLORIDE 0.9% 50 ML IV PRN (16:46)
[2023-01-25] MEDS ORDERED: METOCLOPRAMIDE HCL INJ 5 MG/ML 2 ML VIAL IV PRN (16:46)
[2023-01-25] MEDS ORDERED: LORazepam 2 MG/1 ML VIAL IV PRN (16:46)
[2023-01-25] MEDS ORDERED: diphenhydrAMINE Capsule 25 MG CAP PO PRN (16:46)
[2023-01-25] MEDS ORDERED: DO NOT ADMINISTER FLU VACCINE PRN (16:46)
[2023-01-25] MEDS ORDERED: HYDROmorphone INJ 0.5 MG/0.5 ML SYR IV PRN (16:46)
[2023-01-25] MEDS ORDERED: DO NOT ADMINISTER PNEUMOCOCCAL VACCINE PRN (16:46)
[2023-01-25] MEDS ORDERED: bisacodyL 10 MG SUPP PR PRN (16:46)
[2023-01-25] MEDS ORDERED: traMADol HCL 50 MG TABLET PO PRN (16:46)
[2023-01-25] MEDS ORDERED: FAMOTIDINE 20 MG TAB PO PRN (16:46)
[2023-01-25] MEDS: ROSUVASTATIN CALCIUM 20 MG TAB PO SCH (21:00)
[2023-01-25] MEDS: ASPIRIN 81 MG ECTAB PO SCH (21:00)
[2023-01-25] MEDS: TRAVOPROST Z 0.004% OPH SOLN 2.5 ML BTL OPB SCH (21:01)
[2023-01-25] MEDS: DOCUSATE SODIUM/SENNA 50/8.6MG TAB PO SCH (21:04)
[2023-01-25] MEDS: CHOLECALCIFEROL 1,000 UNITS 25 MCG TAB PO SCH (21:04)
[2023-01-25] MEDS: METOPROLOL SUCC 25MG EXT REL TAB PO SCH (21:08)
[2023-01-25] MEDS: ceFAZolin 2000MG 2,000 MG/15 ML SYR IV SCH (21:37)
[2023-01-26] MEDS: SODIUM CHLORIDE 0.9% 1,000 ML IV SCH (01:48)
[2023-01-26] MEDS ORDERED: SODIUM CHLORIDE 0.9% 500 ML IV ONE (04:11)
[2023-01-26] MEDS ORDERED: SODIUM CHLORIDE 0.9% 1,000 ML IV SCH (05:00)
[2023-01-26] MEDS: POLYETHYLENE (MIRALAX) 17 GM PACK PO SCH ×4 (05:19→23:06)
[2023-01-26] MEDS: ceFAZolin 2000MG 2,000 MG/15 ML SYR IV SCH (05:19)
[2023-01-26 05:25] LABS: BUN Creatinine Ratio 32.3 (10-20); Calcium 7.9 mg/dl (8.6-10.3); Creatinine Clr Calc Pharmacy 30.1 ml/min; Est GFR (African American) 41.6 ml/min; Est GFR (Non-African American) 35.9 ml/min; Magnesium 1.6 mg/dl (1.7-2.4); Potassium 4.6 mmol/L (3.5-5.1)
[2023-01-26] MEDS ORDERED: MAGNESIUM SULFATE / D5W 1 GM/100 ML BAG IV ONE (05:45)
[2023-01-26 06:34] LABS: Basophils # (auto) 0.01 K/uL (0.00-0.20); Basophils % (auto) 0.1 %; Hematocrit (blood only) 27.9 % (37.0-47.0); Hemoglobin 9.2 g/dl (12.0-16.0); Immature Granulocytes # (auto) 0.14 K/uL (0.01-0.20); Immature Granulocytes % (auto) 0.9 %; Lymphocytes # (auto) 0.78 K/uL (1.20-3.40); Lymphocytes % (auto) 5.1 %; Mean Corpuscular Hemoglobin 31.8 pg (25.0-34.0); Mean Corpuscular Volume 96.5 fL (80.0-100.0); Mean Platelet Volume 10.3 fL (9.4-12.4); Monocytes # (auto) 0.94 K/uL (0.11-0.59); Monocytes % (auto) 6.1 %; Neutrophils # (auto) 13.44 K/uL (1.40-6.50); Neutrophils % (auto) 87.8 %; Platelet Count 222 K/uL (130-400); RDW Standard Deviation 45.6 fL (36.4-46.3); Red Blood Count 2.89 M/uL (4.20-5.40); White Blood Count 15.31 K/ul (4.8-10.8)
[2023-01-26] MEDS: GABAPENTIN 300 MG CAP PO SCH ×3 (08:36→20:17)
[2023-01-26] MEDS: FAMOTIDINE 20 MG TAB PO SCH ×2 (08:37→20:51)
[2023-01-26] MEDS: dexAMETHasone 6 MG in SYRINGE 0 ML IV SCH (08:37)
[2023-01-26] MEDS: DOCUSATE SODIUM 100 MG CAP PO SCH ×2 (08:37→20:51)
[2023-01-26] MEDS: TIMOLOL MALEATE 0.5% OP SOLN 5 ML BTL OP SCH (08:38)
--- NOTE | 2023-01-26 08:44 | Orthopedic Progress Note ---
Date of Service January 26, 2023 Assessment & Plan (1) Spinal stenosis of lumbar region: Plan: At this time initiate physical therapy monitor ROGERS output anticipate discharge in the next few days. Admission and Anticipated Discharge Date Admission Date: January 18, 2023 Subjective Back pain controlled leg pain markedly improved she was up yesterday and able to ambulate without leg radiculopathy and Physical Exam Physical Exam: Patient is seen up in bed. She is comfortable. Is good strength testing. Results & Data Vital Signs (Past 12 Hours) Vital Signs Temp Pulse Resp BP BP Pulse Ox O2 Del Method 01/26/23 07:07 36.7 C 62 17 99/65 L 96 Room Air 01/26/23 05:17 36.4 C L 64 18 95/62 L 94 Room Air 01/26/23 03:30 63 94/64 L 01/26/23 03:00 36.4 C L 61 18 90/56 L 94 Room Air 01/25/23 23:06 36.5 C 62 18 94/60 L 95 Room Air 01/25/23 21:58 36.5 C 60 18 106/64 95 Room Air 01/25/23 21:07 61 96/57 L
[2023-01-26] MEDS: ISOSORBIDE MONO EXTENDED REL 30 MG TABCR PO SCH (09:36)
[2023-01-26] MEDS: MAGNESIUM CHLORIDE W/CALCIUM 64MG DELAYED REL TAB PO SCH ×2 (09:54→20:17)
--- NOTE | 2023-01-26 16:35 | Hospitalist Progress Note ---
Date of Service January 26, 2023 Assessment & Plan (1) Back pain: Plan: Back pain Secondary to Lumbar spinal stenosis Postoperative acute blood loss anemia Pt reports having back pain for years but now unfortunately worsening and has difficulty to function at home, reports using a walker at home but per daughters it's difficult to deal with the pain. takes gabapentin tramadol hydrocodone --MRI Lumbar Spine:Multilevel degenerative changes with up to severe canal stenosis, AP diameter and 3 mm, and severe bilateral neuroforaminal stenosis. Pain management, orthopedics consulted S/P: Lumbar decompression, fusion surgery by Dr. Marina on 01/25/2023. Bowel regimen to prevent constipation Continue P T/OT Pain control Fall precautions No indication for blood transfusion currently Monitor CBC Leukocytosis likely reactive and also due to steroid Hyperkalemia Hold lisinopril resume Lasix as able Monitor Hypertension BP low currently Hold lisinopril Continue metoprolol, Imdur with holding parameters Received IV fluids Monitor Hypomagnesemia Replete electrolytes as needed (2) CAD (coronary artery disease): Plan: S/P Stent to RCA in 2009 -continue aspirin, metoprolol, statin, imdur --Echo :mild concentric LVH, LV wall motion is normal, LV systolic function is normal with EF 55 to 60%, aortic valve sclerosis moderate without significant aortic valvular stenosis and grade 1 diastolic dysfunction -Continue home medications (3) HTN (hypertension): Plan: Hyperlipidemia -continue statin (4) Spinal stenosis: Plan: -as above (5) CKD (chronic kidney disease) stage 3, GFR 30-59 ml/min: Plan: Baseline: 1.1-1.3 Monitor renal function Plan DVT Px: Heparin SQ Code Status DNI/DNR Admission and Anticipated Discharge Date Admission Date: January 18, 2023 Subjective Patient is seen and examined at bedside Denies any significant back pain at surgical site Sitting in chair during my encounter this morning Ambulated with physical therapy today Lower extremity pain, tingling, numbness improving Denies any chest pain, dyspnea, dizziness, nausea, vomiting Review of Systems Review of Systems: All systems reviewed & are unremarkable except as noted in Subjective Physical Exam Physical Exam: Physical Exam: Vitals signs as noted above General Appearance:Obese, no apparent distress Head: normocephalic, Atraumatic Eyes: normal inspection, EOMI Neck: supple, Trachea midline Respiratory/Chest: Normal breath sounds, CTA, No accessory muscle use Cardiovascular: S1, S2, No murmur Abdomen/GI:Soft, Non tender, Bowel sounds present Extremities/Musculoskeletal:normal inspection, Trace edema Neurologic/Psych:AAOX3, grossly no focal neurological deficits Skin: normal color, warm Results & Data Results & Data Vital Signs (Past 12 Hours) Vital Signs Temp Pulse Resp BP BP Pulse Ox O2 Del Method 01/26/23 14:27 36.5 C 66 18 102/59 L 95 Room Air 01/26/23 11:30 36.3 C L 60 18 109/71 95 Room Air 01/26/23 10:36 36.3 C L 17 93/54 L 96 Room Air 01/26/23 07:07 36.7 C 62 17 99/65 L 96 Room Air 01/26/23 05:17 36.4 C L 64 18 95/62 L 94 Room Air Laboratory Results Short CBC 01/26/23 Range/Units 04:52 WBC 15.31 H (4.8-10.8) K/ul Hgb 9.2 L D (12.0-16.0) g/dl Hct 27.9 L (37.0-47.0) % Plt Count 222 (130-400) K/uL BMP 01/26/23 04:52 Sodium 134 L Potassium 4.6 Chloride 108 H Carbon Dioxide 21 BUN 43 H Creatinine 1.33 H Glucose 153 H Calcium 7.9 L
[2023-01-26] MEDS: METOPROLOL SUCC 25MG EXT REL TAB PO SCH (20:16)
[2023-01-26] MEDS: DOCUSATE SODIUM/SENNA 50/8.6MG TAB PO SCH (20:16)
[2023-01-26] MEDS: ROSUVASTATIN CALCIUM 20 MG TAB PO SCH (20:17)
[2023-01-26] MEDS: ASPIRIN 81 MG ECTAB PO SCH (20:17)
[2023-01-26] MEDS: CHOLECALCIFEROL 1,000 UNITS 25 MCG TAB PO SCH (20:17)
[2023-01-26] MEDS: TRAVOPROST Z 0.004% OPH SOLN 2.5 ML BTL OPB SCH (20:19)
[2023-01-27] MEDS: POLYETHYLENE (MIRALAX) 17 GM PACK PO SCH ×4 (05:16→23:12)
[2023-01-27 07:39] LABS: Hematocrit (blood only) 27.3 % (37.0-47.0); Hemoglobin 9.2 g/dl (12.0-16.0); Mean Corpuscular Hemoglobin 31.6 pg (25.0-34.0); Mean Corpuscular Hgb Conc 33.7 g/dL (32.0-36.0); Mean Corpuscular Volume 93.8 fL (80.0-100.0); Mean Platelet Volume 10.6 fL (9.4-12.4); Platelet Count 241 K/uL (130-400); RDW Coefficient of Variation 13.2 % (11.5-14.5); RDW Standard Deviation 45.1 fL (36.4-46.3); Red Blood Count 2.91 M/uL (4.20-5.40)
[2023-01-27 07:52] LABS: BUN Creatinine Ratio 36.7 (10-20); Creatinine Clr Calc Pharmacy 33.3 ml/min; Est GFR (African American) 47.1 ml/min; Est GFR (Non-African American) 40.6 ml/min; Potassium 4.5 mmol/L (3.5-5.1)
[2023-01-27] MEDS: DOCUSATE SODIUM 100 MG CAP PO SCH ×2 (08:39→19:39)
[2023-01-27] MEDS: MAGNESIUM CHLORIDE W/CALCIUM 64MG DELAYED REL TAB PO SCH ×2 (08:39→19:39)
[2023-01-27] MEDS: FAMOTIDINE 20 MG TAB PO SCH ×2 (08:39→19:39)
[2023-01-27] MEDS: GABAPENTIN 300 MG CAP PO SCH ×3 (08:39→19:38)
[2023-01-27] MEDS: ISOSORBIDE MONO EXTENDED REL 30 MG TABCR PO SCH (08:39)
[2023-01-27] MEDS: TIMOLOL MALEATE 0.5% OP SOLN 5 ML BTL OP SCH (08:40)
[2023-01-27] MEDS: oxyCODONE HCL IR 5 MG TAB (IMMEDIATE RELEASE) PO PRN (09:02)
--- NOTE | 2023-01-27 10:10 | Orthopedic Progress Note ---
Date of Service January 27, 2023 Assessment & Plan (1) Spinal stenosis of lumbar region: Plan: This time we will continue physical therapy monitor ROGERS output anticipate discharge to rehab when bed available. Admission and Anticipated Discharge Date Admission Date: January 18, 2023 Subjective Patient's back pain is controlled leg symptoms markedly improved Physical Exam Physical Exam: Patient is ambulating halls with the therapist. She is comfortable. No strength testing. Results & Data Vital Signs (Past 12 Hours) Vital Signs Temp Pulse Resp BP Pulse Ox O2 Del Method 01/27/23 07:11 36.3 C L 67 16 113/74 98 Room Air Queries Orthopedic Spine Acute Posthemorrhagic Anemia: Yes
[2023-01-27] MEDS: dexAMETHasone 6 MG in SYRINGE 0 ML IV SCH (10:29)
--- NOTE | 2023-01-27 17:22 | Hospitalist Progress Note ---
Date of Service January 27, 2023 Assessment & Plan (1) Back pain: Plan: Back pain Secondary to Lumbar spinal stenosis Postoperative acute blood loss anemia Pt reports having back pain for years but now unfortunately worsening and has difficulty to function at home, reports using a walker at home but per daughters it's difficult to deal with the pain. takes gabapentin tramadol hydrocodone --MRI Lumbar Spine:Multilevel degenerative changes with up to severe canal stenosis, AP diameter and 3 mm, and severe bilateral neuroforaminal stenosis. Pain management, orthopedics consulted S/P: Lumbar decompression, fusion surgery by Dr. Marina on 01/25/2023. Hgb stable at 9.2 today (unchanged from yesterday) Bowel regimen to prevent constipation Continue P T/OT Pain control Fall precautions No indication for blood transfusion currently Monitor CBC Leukocytosis likely reactive and also due to steroid Hyperkalemia -> resolved Hold lisinopril resume Lasix as able Hypertension BP low currently Holding lisinopril as BP remains low normal Continue metoprolol, Imdur with holding parameters Received IV fluids Monitor Hypomagnesemia -> resolved Replete electrolytes as needed (2) CAD (coronary artery disease): Plan: S/P Stent to RCA in 2009 -continue aspirin, metoprolol, statin, imdur --Echo :mild concentric LVH, LV wall motion is normal, LV systolic function is normal with EF 55 to 60%, aortic valve sclerosis moderate without significant aortic valvular stenosis and grade 1 diastolic dysfunction -Continue home medications (3) HTN (hypertension): Plan: Hyperlipidemia -continue statin (4) Spinal stenosis: Plan: -as above (5) CKD (chronic kidney disease) stage 3, GFR 30-59 ml/min: Plan: Baseline: 1.1-1.3 Monitor renal function Plan DVT Px: Heparin SQ Code Status DNI/DNR Admission and Anticipated Discharge Date Admission Date: January 18, 2023 Supervising Physician Co-Signing Physician Notes Patient is seen and examined at bedside. Denies any significant back pain at surgical site. Reports minimal left hip pain. Had surgical dressing change today. Denies any chest pain, shortness of breath, dizziness, nausea, vomiting, abdominal pain. Physical Exam: Vitals signs as noted above General Appearance:Obese, no apparent distress Head: normocephalic, Atraumatic Eyes: normal inspection, EOMI Neck: supple, Trachea midline Respiratory/Chest: Normal breath sounds, CTA, No accessory muscle use Cardiovascular: S1, S2, No murmur Abdomen/GI:Soft, Non tender, Bowel sounds present Extremities/Musculoskeletal:normal inspection, Trace edema Neurologic/Psych:AAOX3, grossly no focal neurological deficits Skin: normal color, warm Secondary to Lumbar spinal stenosis Postoperative acute blood loss anemia S/P Lumbar decompression, fusion surgery by Dr. Marina on 01/25/2023. Hemoglobin stable today No indication for blood transfusion Wound care, activity as per orthopedics Plan to discharge once cleared by orthopedics May need rehab placement Agree with holding lisinopril given blood pressure relatively low Case management to help with discharge planning I personally reviewed the record. Patient is interviewed and examined at bedside. Patient's care is coordinated with Susannah Martinez PA-C. Please refer to the documentation above for details of patient's presentation and for discussion of other issues. Subjective Patient seen and examined in 375 bed 2 in follow-up for lumbar decompression surgery. Patient feeling well with minimal incisional surgical site discomfort. Denies any pain or numbness in lower extremities. Had 2 postop bowel movements today. Denies any new symptoms overnight. No fever, chills, lightheadedness, chest pain, shortness of breath, nausea, vomiting, abdominal pain, dysuria or diarrhea. Review of Systems Review of Systems: At least ten systems reviewed and negative except as noted in the HPI. Physical Exam Physical Exam: Gen: WD/WN, NAD, sitting in bedside chair, A&Ox3 HEENT: Normocephalic, atraumatic, conjunctivae moist, sclerae anicteric, mucous membranes moist Lung: Clear to Auscultation bilaterally, no wheezes/rales/rhonchi Heart: Regular rate, regular rhythm, no murmurs, rubs, or gallops Abdomen: Soft, NT, ND +BS x 4 Extremities: +spinal dressing c/d/i. ROGERS drain with minimal amount of serosanguineous output. No edema Skin: Warm, no rash Results & Data Results & Data Vital Signs (Past 12 Hours) Vital Signs Temp Pulse Resp BP BP Pulse Ox O2 Del Method 01/27/23 14:30 36.8 C 65 16 111/65 93 Room Air 01/27/23 08:00 Room Air 01/27/23 07:11 36.3 C L 67 16 113/74 98 Room Air Laboratory Results Short CBC 01/27/23 Range/Units 06:33 WBC 12.80 H (4.8-10.8) K/ul Hgb 9.2 L (12.0-16.0) g/dl Hct 27.3 L (37.0-47.0) % Plt Count 241 (130-400) K/uL BMP 01/27/23 06:33 Sodium 136 Potassium 4.5 Chloride 109 H Carbon Dioxide 21 BUN 44 H Creatinine 1.20 Glucose 158 H Calcium 9.0 Diagnostic Findings Lumbar Spine MRI 01/19/23 09:39 MR lumbar spine wo con CLINICAL HISTORY: Hx severe spinal stenosis; worsening pain TECHNIQUE: Multiplanar sequences through the lumbar spine were obtained, without intravenous contrast. Comparison: Comparison is made to CT lumbar spine 11/29/2022 FINDINGS: The alignment is anatomical. L1-L2: No significant abnormality. L2-L3: Broad-based posterior disc bulge is seen resulting in moderate canal stenosis, AP diameter 5 mm, and mild bilateral neural foraminal stenosis. L3-L4: Broad-based posterior disc bulge with moderate bilateral neural foraminal stenosis. L4-L5: Broad-based posterior disc bulge and bilateral facet arthropathy result in severe canal stenosis, AP diameter 3 mm, and severe bilateral neuroforaminal stenosis. L5-S1: Broad-based posterior disc bulge is seen with moderate to severe jorge luis ateral neural foraminal stenosis, mild canal stenosis is seen. The spinal ligaments are intact, without evidence of disruption or abnormal signal intensity. The spinal cord is normal in signal intensity and there is no evidence of cord contusion. There is no evidence of an extradural, intradural, extramedullary or intramedullary lesion. Visualized soft tissues are normal. IMPRESSION: Multilevel degenerative changes with up to severe canal stenosis, AP diameter and 3 mm, and severe bilateral neuroforaminal stenosis. ACT 112: Negative or not required by law. Electronically signed by: Boone Belle M.D. 01/19/2023 3:43 PM Chest X-Ray 01/21/23 13:25 XR chest 1V portable CLINICAL HISTORY: pre-op TECHNIQUE: Single frontal radiograph of the chest was obtained. Comparison: Comparison is made to chest radiograph 09/01/2016 FINDINGS: No lines and tubes are seen. The cardiomediastinal silhouette is normal. The lungs are clear. No evidence of pleural effusion or pneumothorax. IMPRESSION: No acute chest disease. ACT 112: Negative or not required by law. Electronically signed by: Boone Belle M.D. 01/21/2023 5:17 PM Lumbar Spine X-Ray 01/25/23 00:00 FL lumbar spine 2-3V CLINICAL HISTORY: L4-S1 DECOMP/FUSION TECHNIQUE: 2 views were obtained with the C-arm in the OR with the above procedure. Total fluoroscopy time was 21 seconds. Radiation dose was 17.07 mGy. Comparison: Comparison is made to MRI lumbar spine 01/19/2023 FINDINGS/IMPRESSION: Intraoperative images were obtained of lumbar spine decompression/fusion at L4 S1. Please correlate with intraoperative fluoroscopy and operative report. ACT 112: Negative or not required by law. Electronically signed by: Boone Belle M.D. 01/25/2023 4:16 PM
[2023-01-27] MEDS: CHOLECALCIFEROL 1,000 UNITS 25 MCG TAB PO SCH (19:39)
[2023-01-27] MEDS: ROSUVASTATIN CALCIUM 20 MG TAB PO SCH (19:40)
[2023-01-27] MEDS: ASPIRIN 81 MG ECTAB PO SCH (19:40)
[2023-01-27] MEDS: DOCUSATE SODIUM/SENNA 50/8.6MG TAB PO SCH (19:40)
[2023-01-27] MEDS: TRAVOPROST Z 0.004% OPH SOLN 2.5 ML BTL OPB SCH (19:41)
[2023-01-27] MEDS: METOPROLOL SUCC 25MG EXT REL TAB PO SCH (19:45)
[2023-01-28] MEDS: POLYETHYLENE (MIRALAX) 17 GM PACK PO SCH ×3 (05:14→17:48)
[2023-01-28 06:58] LABS: Hematocrit (blood only) 25.9 % (37.0-47.0); Hemoglobin 8.8 g/dl (12.0-16.0); Mean Corpuscular Hemoglobin 31.9 pg (25.0-34.0); Mean Corpuscular Volume 93.8 fL (80.0-100.0); Mean Platelet Volume 10.5 fL (9.4-12.4); Platelet Count 253 K/uL (130-400); RDW Coefficient of Variation 13.1 % (11.5-14.5); RDW Standard Deviation 45.3 fL (36.4-46.3); Red Blood Count 2.76 M/uL (4.20-5.40); White Blood Count 10.27 K/ul (4.8-10.8)
[2023-01-28 07:29] LABS: BUN Creatinine Ratio 35.8 (10-20); Calcium 9.2 mg/dl (8.6-10.3); Creatinine Clr Calc Pharmacy 33.3 ml/min; Est GFR (African American) 47.1 ml/min; Est GFR (Non-African American) 40.6 ml/min
[2023-01-28] MEDS: FAMOTIDINE 20 MG TAB PO SCH ×2 (09:01→19:51)
[2023-01-28] MEDS: ISOSORBIDE MONO EXTENDED REL 30 MG TABCR PO SCH (09:01)
[2023-01-28] MEDS: MAGNESIUM CHLORIDE W/CALCIUM 64MG DELAYED REL TAB PO SCH ×2 (09:01→19:50)
[2023-01-28] MEDS: DOCUSATE SODIUM 100 MG CAP PO SCH ×2 (09:01→19:50)
[2023-01-28] MEDS: GABAPENTIN 300 MG CAP PO SCH ×3 (09:01→19:50)
[2023-01-28] MEDS: TIMOLOL MALEATE 0.5% OP SOLN 5 ML BTL OP SCH (09:02)
[2023-01-28] MEDS: dexAMETHasone 6 MG in SYRINGE 0 ML IV SCH (09:03)
--- NOTE | 2023-01-28 09:23 | Orthopedic Progress Note ---
Date of Service January 28, 2023 Assessment & Plan (1) Spinal stenosis of lumbar region: Plan: At this time continue physical therapy monitor ROGERS operatively discharge to rehab next week. Admission and Anticipated Discharge Date Admission Date: January 18, 2023 Subjective Patient's back pain is controlled leg pain markedly improved Physical Exam Physical Exam: Patient appears comfortable. She is good strength testing. Results & Data Vital Signs (Past 12 Hours) Vital Signs Temp Pulse Resp BP Pulse Ox O2 Del Method 01/28/23 07:12 36.3 C L 65 18 117/75 98 Room Air Queries Orthopedic Spine Acute Posthemorrhagic Anemia: Yes
--- NOTE | 2023-01-28 18:10 | Hospitalist Progress Note ---
Date of Service January 28, 2023 Assessment & Plan (1) Back pain: Plan: Back pain Secondary to Lumbar spinal stenosis Postoperative acute blood loss anemia Pt reports having back pain for years but now unfortunately worsening and has difficulty to function at home, reports using a walker at home but per daughters it's difficult to deal with the pain. takes gabapentin tramadol hydrocodone --MRI Lumbar Spine:Multilevel degenerative changes with up to severe canal stenosis, AP diameter and 3 mm, and severe bilateral neuroforaminal stenosis. Pain management, orthopedics consulted S/P: Lumbar decompression, fusion surgery by Dr. Marina on 01/25/2023. Bowel regimen to prevent constipation Continue P T/OT Pain control Fall precautions No indication for blood transfusion currently Leukocytosis resolved Waiting for rehab placement Hemoglobin 8.8 today Hyperkalemia -> resolved Hold lisinopril for now Monitor potassium levels Hypertension BP low currently Hold lisinopril for now Continue metoprolol, Imdur with holding parameters Received IV fluids Monitor Hypomagnesemia -> resolved Replete electrolytes as needed (2) CAD (coronary artery disease): Plan: S/P Stent to RCA in 2009 -continue aspirin, metoprolol, statin, imdur --Echo :mild concentric LVH, LV wall motion is normal, LV systolic function is normal with EF 55 to 60%, aortic valve sclerosis moderate without significant aortic valvular stenosis and grade 1 diastolic dysfunction -Continue home medications (3) HTN (hypertension): Plan: Hyperlipidemia -continue statin (4) Spinal stenosis: Plan: -as above (5) CKD (chronic kidney disease) stage 3, GFR 30-59 ml/min: Plan: Baseline: 1.1-1.3 Monitor renal function Plan DVT Px: SCDs for now Encourage to ambulate Code Status DNI/DNR Admission and Anticipated Discharge Date Admission Date: January 18, 2023 Subjective Patient is seen and examined at bedside States feeling better today No significant pain at surgical site Denies any chest pain, dyspnea, dizziness, nausea, vomiting, abdominal pain Waiting for rehab placement Review of Systems Review of Systems: All systems reviewed & are unremarkable except as noted in Subjective Physical Exam Physical Exam: Physical Exam: Vitals signs as noted above General Appearance:Obese, no apparent distress Head: normocephalic, Atraumatic Eyes: normal inspection, EOMI Neck: supple, Trachea midline Respiratory/Chest: Normal breath sounds, CTA, No accessory muscle use Cardiovascular: S1, S2, No murmur Abdomen/GI:Soft, Non tender, Bowel sounds present Extremities/Musculoskeletal:normal inspection, Trace edema Neurologic/Psych:AAOX3, grossly no focal neurological deficits Skin: normal color, warm Results & Data Results & Data Vital Signs (Past 12 Hours) Vital Signs Temp Pulse Resp BP BP Pulse Ox O2 Del Method 01/28/23 14:20 37.1 C 78 18 123/61 97 Room Air 01/28/23 07:12 36.3 C L 65 18 117/75 98 Room Air Laboratory Results Short CBC 01/28/23 Range/Units 06:33 WBC 10.27 (4.8-10.8) K/ul Hgb 8.8 L (12.0-16.0) g/dl Hct 25.9 L (37.0-47.0) % Plt Count 253 (130-400) K/uL BMP 01/28/23 06:33 Sodium 135 L Potassium 5.0 Chloride 110 H Carbon Dioxide 21 BUN 43 H Creatinine 1.20 Glucose 124 H Calcium 9.2
[2023-01-28] MEDS: TRAVOPROST Z 0.004% OPH SOLN 2.5 ML BTL OPB SCH (19:48)
[2023-01-28] MEDS: METOPROLOL SUCC 25MG EXT REL TAB PO SCH (19:49)
[2023-01-28] MEDS: ASPIRIN 81 MG ECTAB PO SCH (19:49)
[2023-01-28] MEDS: ROSUVASTATIN CALCIUM 20 MG TAB PO SCH (19:49)
[2023-01-28] MEDS: DOCUSATE SODIUM/SENNA 50/8.6MG TAB PO SCH (19:50)
[2023-01-28] MEDS: CHOLECALCIFEROL 1,000 UNITS 25 MCG TAB PO SCH (19:50)
[2023-01-29] MEDS: oxyCODONE HCL IR 5 MG TAB (IMMEDIATE RELEASE) PO PRN (03:04)
[2023-01-29 07:49] LABS: Hematocrit (blood only) 29.2 % (37.0-47.0); Hemoglobin 9.8 g/dl (12.0-16.0); Mean Corpuscular Hemoglobin 31.3 pg (25.0-34.0); Mean Corpuscular Hgb Conc 33.6 g/dL (32.0-36.0); Mean Corpuscular Volume 93.3 fL (80.0-100.0); Mean Platelet Volume 10.2 fL (9.4-12.4); Platelet Count 281 K/uL (130-400); RDW Coefficient of Variation 13.2 % (11.5-14.5); RDW Standard Deviation 45.1 fL (36.4-46.3); Red Blood Count 3.13 M/uL (4.20-5.40); White Blood Count 11.67 K/ul (4.8-10.8)
[2023-01-29 08:15] LABS: BUN Creatinine Ratio 36.4 (10-20); Calcium 9.6 mg/dl (8.6-10.3); Creatinine Clr Calc Pharmacy 37.4 ml/min; Est GFR (African American) 54.1 ml/min; Est GFR (Non-African American) 46.6 ml/min; Potassium 4.8 mmol/L (3.5-5.1)
[2023-01-29] MEDS: ISOSORBIDE MONO EXTENDED REL 30 MG TABCR PO SCH (08:43)
[2023-01-29] MEDS: GABAPENTIN 300 MG CAP PO SCH ×3 (08:43→20:30)
[2023-01-29] MEDS: MAGNESIUM CHLORIDE W/CALCIUM 64MG DELAYED REL TAB PO SCH (08:43)
[2023-01-29] MEDS: DOCUSATE SODIUM 100 MG CAP PO SCH ×2 (08:43→20:31)
[2023-01-29] MEDS: FAMOTIDINE 20 MG TAB PO SCH ×2 (08:43→20:30)
[2023-01-29] MEDS: TIMOLOL MALEATE 0.5% OP SOLN 5 ML BTL OP SCH (08:43)
--- NOTE | 2023-01-29 16:16 | Hospitalist Progress Note ---
Date of Service January 29, 2023 Assessment & Plan (1) Back pain: Plan: Back pain Secondary to Lumbar spinal stenosis Postoperative acute blood loss anemia Pt reports having back pain for years but now unfortunately worsening and has difficulty to function at home, reports using a walker at home but per daughters it's difficult to deal with the pain. takes gabapentin tramadol hydrocodone --MRI Lumbar Spine:Multilevel degenerative changes with up to severe canal stenosis, AP diameter and 3 mm, and severe bilateral neuroforaminal stenosis. Pain management, orthopedics consulted S/P: Lumbar decompression, fusion surgery by Dr. Marina on 01/25/2023. Bowel regimen to prevent constipation Continue P T/OT Pain control Fall precautions No indication for blood transfusion currently Leukocytosis resolved Waiting for rehab placement Hemoglobin 9.8 today Rehab as able Hyperkalemia -> resolved Hold lisinopril for now given low BP Monitor potassium levels Hypertension BP low currently Hold lisinopril for now Continue metoprolol, Imdur with holding parameters Received IV fluids Monitor Hypomagnesemia -> resolved Replete electrolytes as needed (2) CAD (coronary artery disease): Plan: S/P Stent to RCA in 2009 -continue aspirin, metoprolol, statin, imdur --Echo :mild concentric LVH, LV wall motion is normal, LV systolic function is normal with EF 55 to 60%, aortic valve sclerosis moderate without significant aortic valvular stenosis and grade 1 diastolic dysfunction -Continue home medications (3) HTN (hypertension): Plan: Hyperlipidemia -continue statin (4) Spinal stenosis: Plan: -as above (5) CKD (chronic kidney disease) stage 3, GFR 30-59 ml/min: Plan: Baseline: 1.1-1.3 Monitor renal function Plan DVT Px: SCDs for now Encourage to ambulate Code Status DNI/DNR Admission and Anticipated Discharge Date Admission Date: January 18, 2023 Subjective Patient is seen and examined at bedside Sitting in chair comfortably Offers no new complaints Back pain is well controlled Waiting for rehab placement Family at bedside Denies any chest pain, dyspnea, dizziness, nausea, vomiting, abdominal pain Review of Systems Review of Systems: All systems reviewed & are unremarkable except as noted in Subjective Physical Exam Physical Exam: Physical Exam: Vitals signs as noted above General Appearance:Obese, no apparent distress Head: normocephalic, Atraumatic Eyes: normal inspection, EOMI Neck: supple, Trachea midline Respiratory/Chest: Normal breath sounds, CTA, No accessory muscle use Cardiovascular: S1, S2, No murmur Abdomen/GI:Soft, Non tender, Bowel sounds present Extremities/Musculoskeletal:normal inspection, Trace edema Neurologic/Psych:AAOX3, grossly no focal neurological deficits Skin: normal color, warm Results & Data Results & Data Vital Signs (Past 12 Hours) Vital Signs Temp Pulse Resp BP BP Pulse Ox O2 Del Method 01/29/23 14:51 36.5 C 73 18 108/64 97 Room Air 01/29/23 08:08 36.8 C 66 16 144/70 H 96 Room Air Laboratory Results Short CBC 01/29/23 Range/Units 07:32 WBC 11.67 H (4.8-10.8) K/ul Hgb 9.8 L (12.0-16.0) g/dl Hct 29.2 L (37.0-47.0) % Plt Count 281 (130-400) K/uL BMP 01/29/23 07:32 Sodium 136 Potassium 4.8 Chloride 109 H Carbon Dioxide 22 BUN 39 H Creatinine 1.07 Glucose 104 H Calcium 9.6
[2023-01-29] MEDS: METOPROLOL SUCC 25MG EXT REL TAB PO SCH (20:30)
[2023-01-29] MEDS: CHOLECALCIFEROL 1,000 UNITS 25 MCG TAB PO SCH (20:30)
[2023-01-29] MEDS: DOCUSATE SODIUM/SENNA 50/8.6MG TAB PO SCH (20:32)
[2023-01-29] MEDS: TRAVOPROST Z 0.004% OPH SOLN 2.5 ML BTL OPB SCH (20:32)
[2023-01-29] MEDS: ROSUVASTATIN CALCIUM 20 MG TAB PO SCH (20:34)
[2023-01-29] MEDS: ASPIRIN 81 MG ECTAB PO SCH (20:38)
[2023-01-30] MEDS: oxyCODONE HCL IR 5 MG TAB (IMMEDIATE RELEASE) PO PRN ×2 (05:34→10:51)
[2023-01-30] MEDS: ISOSORBIDE MONO EXTENDED REL 30 MG TABCR PO SCH (07:54)
[2023-01-30] MEDS: GABAPENTIN 300 MG CAP PO SCH (07:54)
[2023-01-30] MEDS: DOCUSATE SODIUM 100 MG CAP PO SCH (07:54)
[2023-01-30] MEDS: FAMOTIDINE 20 MG TAB PO SCH (07:54)
[2023-01-30] MEDS: TIMOLOL MALEATE 0.5% OP SOLN 5 ML BTL OP SCH (07:55)
[2023-01-30 08:41] LABS: Hematocrit (blood only) 28.1 % (37.0-47.0); Hemoglobin 9.4 g/dl (12.0-16.0)
--- NOTE | 2023-01-30 09:45 | Hospitalist Progress Note ---
Date of Service January 30, 2023 Assessment & Plan (1) Back pain: Plan: Back pain Secondary to Lumbar spinal stenosis Postoperative acute blood loss anemia Pt reports having back pain for years but now unfortunately worsening and has difficulty to function at home, reports using a walker at home but per daughters it's difficult to deal with the pain. takes gabapentin tramadol hydrocodone --MRI Lumbar Spine:Multilevel degenerative changes with up to severe canal stenosis, AP diameter and 3 mm, and severe bilateral neuroforaminal stenosis. Pain management, orthopedics consulted S/P: Lumbar decompression, fusion surgery by Dr. Marina on 01/25/2023. Bowel regimen to prevent constipation Continue P T/OT Pain control Fall precautions No indication for blood transfusion currently Leukocytosis resolved Waiting for rehab placement Hemoglobin 9.4 today Plan to discharge to Rehab facility today e Hyperkalemia -> resolved Hold lisinopril for now given low BP/Hyperkalemia Monitor potassium levels Hypertension BP relatively low Hold lisinopril for now Continue metoprolol, Imdur with holding parameters Received IV fluids Monitor Hypomagnesemia -> resolved Replete electrolytes as needed (2) CAD (coronary artery disease): Plan: S/P Stent to RCA in 2009 -continue aspirin, metoprolol, statin, imdur --Echo :mild concentric LVH, LV wall motion is normal, LV systolic function is normal with EF 55 to 60%, aortic valve sclerosis moderate without significant aortic valvular stenosis and grade 1 diastolic dysfunction -Continue home medications (3) HTN (hypertension): Plan: Hyperlipidemia -continue statin (4) Spinal stenosis: Plan: -as above (5) CKD (chronic kidney disease) stage 3, GFR 30-59 ml/min: Plan: Baseline: 1.1-1.3 Monitor renal function Plan DVT Px: SCDs for now Encourage to ambulate Code Status DNI/DNR Disposition SNF Admission and Anticipated Discharge Date Admission Date: January 18, 2023 Subjective Patient is seen and examined at bedside States feeling well today Still has Back pain but improving Denies any chest pain, dyspnea, dizziness, nausea, vomiting, abdominal pain Plan to discharge to rehab facility today Review of Systems Review of Systems: All systems reviewed & are unremarkable except as noted in Subjective Physical Exam Physical Exam: Physical Exam: Vitals signs as noted above General Appearance:Obese, no apparent distress Head: normocephalic, Atraumatic Eyes: normal inspection, EOMI Neck: supple, Trachea midline Respiratory/Chest: Normal breath sounds, CTA, No accessory muscle use Cardiovascular: S1, S2, No murmur Abdomen/GI:Soft, Non tender, Bowel sounds present Extremities/Musculoskeletal:normal inspection, Trace edema Neurologic/Psych:AAOX3, grossly no focal neurological deficits Skin: normal color, warm Results & Data Results & Data Vital Signs (Past 12 Hours) Vital Signs Temp Pulse Resp BP Pulse Ox O2 Del Method 01/30/23 08:00 37.1 C 75 16 107/68 97 Room Air Laboratory Results Short CBC 01/30/23 Range/Units 07:29 Hgb 9.4 L (12.0-16.0) g/dl Hct 28.1 L (37.0-47.0) %
--- NOTE | 2023-01-30 09:53 | Discharge Summary ---
Date of Service January 30, 2023 Admission HPI Per Admitting Provider Pt is an 87 y/o F with lumbar spinal stenosis, CAD s/p stent to RCA in 2009, carotid stenosis, CKD III, HTN, dyslipidemia,hyperparathyroidism, non toxic nodular goiter, DVT in 2013 to RLE post R TKA, osteoarthritis who presents with complaint of severe back pain. Pt reports she has been dealing with lumbar stenosis and back pain for several years however it is getting worse and she can hardly function at home. Her 2 daughters are presents at the bedside and report that she is using walker at home but can hardly do anything due to pain. Pt's PCP sent referral to [facility] neurosurgery for for further evaluation and poss. surgical treatment. Daughters say that they have an appointment right now for February 07 but they are trying to move it up. ED provider reported to me that CM in ED contacted the [place] neurosurgery office as well as [facility] office to see if they can get to see pt earlier. When reviewing pt's chart, pt seen a chiropracter at [facility]. Asked if she was seen by any orthopedic surgeon at [facility] and pt denies - her daughters state that they were told that there is nobody in this area that can possibly operate on the pt. And they are trying to see a neurosurgeon/spine surgeon. Pt denies fever/chills, chest pain, shortness of breath, abd. pain, N/V. Denies incontinence. Denies any recent trauma. Denies any new weakness. Admission Exam Per Admitting Provider Physical Exam Constitutional: WD/WN, vitals as above Eyes:L PERRL, conjunctivae normal, anicteric sclerae ENMT: external ear and nose normal, oropharynx normal Neck: trachea midline, no thyromegaly Respiratory: normal respiratory effort, lungs clear to auscultation Cardiovascular: RRR, no murmur, no edema Chest (Breasts): Chest: normal inspection of chest Gastrointestinal (Abdomen): normal bowel sounds, soft, nontender, no hepatosplenomegaly Musculoskeletal: Extremities: extremities normal to inspection (pt moves extremities however mvmt causes back pain) Skin: no rashes, warm and dry Neurologic: PERRL, EOMI, accommodation nl, no face palsy, no dysarthria Psychiatric: A+Ox3, euthymic affect Principal Diagnosis Lumbar spinal stenosis with radiculopathy Hyperkalemia Discharge Data Allergies Allergy/AdvReac Type Severity Reaction Status Date / Time No Known Allergies Allergy Verified 10/20/21 13:29 Consultations 01/18/23 17:24 ED Decision to Admit Stat 01/18/23 21:37 Consult Pain Management Routine 01/19/23 18:34 Consult Orthopedic Spine Surgery Routine Procedures Performed Operation Date: 01/25/23 12:45 Actual Procedures p L4-S1 Decompression and Fusion, Spinal Cord Monitoring(Not Applicable) - Jace Marina DO Ordered Studies 01/19/23 09:39 MR lumbar spine wo con Routine 01/25/23 FL lumbar spine 2-3V Routine Laboratory Results WBC 11.67 K/ul (4.8-10.8) H 01/29/23 07:32 RBC 3.13 M/uL (4.20-5.40) L 01/29/23 07:32 Hgb 9.4 g/dl (12.0-16.0) L 01/30/23 07:29 Hct 28.1 % (37.0-47.0) L 01/30/23 07:29 MCV 93.3 fL (80.0-100.0) 01/29/23 07:32 MCH 31.3 pg (25.0-34.0) 01/29/23 07:32 MCHC 33.6 g/dL (32.0-36.0) 01/29/23 07:32 RDW Std Deviation 45.1 fL (36.4-46.3) 01/29/23 07:32 RDW Coeff of Sheryl 13.2 % (11.5-14.5) 01/29/23 07:32 Plt Count 281 K/uL (130-400) 01/29/23 07:32 MPV 10.2 fL (9.4-12.4) 01/29/23 07:32 Immature Gran % (Auto) 0.9 % 01/26/23 04:52 Neut % (Auto) 87.8 % 01/26/23 04:52 Lymph % (Auto) 5.1 % 01/26/23 04:52 Limestone % (Auto) 6.1 % 01/26/23 04:52 Eos % (Auto) 0.0 % 01/26/23 04:52 Baso % (Auto) 0.1 % 01/26/23 04:52 Neut # (Auto) 13.44 K/uL (1.40-6.50) H 01/26/23 04:52 Lymph # (Auto) 0.78 K/uL (1.20-3.40) L 01/26/23 04:52 Limestone # (Auto) 0.94 K/uL (0.11-0.59) H 01/26/23 04:52 Eos # (Auto) 0.00 K/uL (0.00-0.50) 01/26/23 04:52 Baso # (Auto) 0.01 K/uL (0.00-0.20) 01/26/23 04:52 Immature Gran # (Auto) 0.14 K/uL (0.01-0.20) 01/26/23 04:52 Sodium 136 mmol/L (136-145) 01/29/23 07:32 Potassium 4.8 mmol/L (3.5-5.1) 01/29/23 07:32 Chloride 109 mmol/L (98-107) H 01/29/23 07:32 Carbon Dioxide 22 mmol/L (21-32) 01/29/23 07:32 Anion Gap 5 (3-11) 01/29/23 07:32 BUN 39 mg/dl (6-23) H 01/29/23 07:32 Creatinine 1.07 mg/dl (0.6-1.2) 01/29/23 07:32 Est Cr Clr Drug Dosing 37.4 ml/min 01/29/23 07:32 Est GFR ( Amer) 54.1 ml/min 01/29/23 07:32 Est GFR (Non-Af Amer) 46.6 ml/min 01/29/23 07:32 BUN/Creatinine Ratio 36.4 (10-20) H 01/29/23 07:32 Glucose 104 mg/dl (70-99(Fasting)) H 01/29/23 07:32 Lactate 1.5 mmol/L (0.4-2.0) 01/26/23 04:52 Calcium 9.6 mg/dl (8.6-10.3) 01/29/23 07:32 Phosphorus 3.3 mg/dl (2.5-4.9) 01/19/23 06:55 Magnesium 2.0 mg/dl (1.7-2.4) 01/28/23 06:33 Total Bilirubin 0.5 mg/dl (0.2-1.0) 01/18/23 14:34 AST 20 U/L (13-39) 01/18/23 14:34 ALT 10 U/L (7-52) 01/18/23 14:34 Alkaline Phosphatase 82 U/L (34-104) 01/18/23 14:34 Total Protein 6.9 gm/dl (6.0-8.3) 01/18/23 14:34 Albumin 3.8 gm/dl (3.4-5.0) 01/18/23 14:34 Globulin 3.1 gm/dl (2.5-4.0) 01/18/23 14:34 Albumin/Globulin Ratio 1.2 (0.9-2) 01/18/23 14:34 Blood Type B Positive 01/25/23 08:02 Blood Type Recheck B Positive 01/24/23 07:31 Antibody Screen NEGATIVE 01/25/23 08:02 Crossmatch See Detail 01/25/23 08:02 Impressions Lumbar Spine MRI 01/19/23 09:39 MR lumbar spine wo con CLINICAL HISTORY: Hx severe spinal stenosis; worsening pain TECHNIQUE: Multiplanar sequences through the lumbar spine were obtained, without intravenous contrast. Comparison: Comparison is made to CT lumbar spine 11/29/2022 FINDINGS: The alignment is anatomical. L1-L2: No significant abnormality. L2-L3: Broad-based posterior disc bulge is seen resulting in moderate canal stenosis, AP diameter 5 mm, and mild bilateral neural foraminal stenosis. L3-L4: Broad-based posterior disc bulge with moderate bilateral neural foraminal stenosis. L4-L5: Broad-based posterior disc bulge and bilateral facet arthropathy result in severe canal stenosis, AP diameter 3 mm, and severe bilateral neuroforaminal stenosis. L5-S1: Broad-based posterior disc bulge is seen with moderate to severe bilateral neural foraminal stenosis, mild canal stenosis is seen. The spinal ligaments are intact, without evidence of disruption or abnormal signal intensity. The spinal cord is normal in signal intensity and there is no evidence of cord contusion. There is no evidence of an extradural, intradural, extramedullary or intramedullary lesion. Visualized soft tissues are normal. IMPRESSION: Multilevel degenerative changes with up to severe canal stenosis, AP diameter and 3 mm, and severe bilateral neuroforaminal stenosis. ACT 112: Negative or not required by law. Electronically signed by: Boone Belle M.D. 01/19/2023 3:43 PM Chest X-Ray 01/21/23 13:25 XR chest 1V portable CLINICAL HISTORY: pre-op TECHNIQUE: Single frontal radiograph of the chest was obtained. Comparison: Comparison is made to chest radiograph 09/01/2016 FINDINGS: No lines and tubes are seen. The cardiomediastinal silhouette is normal. The lungs are clear. No evidence of pleural effusion or pneumothorax. IMPRESSION: No acute chest disease. ACT 112: Negative or not required by law. Electronically signed by: Boone Belle M.D. 01/21/2023 5:17 PM Lumbar Spine X-Ray 01/25/23 00:00 FL lumbar spine 2-3V CLINICAL HISTORY: L4-S1 DECOMP/FUSION TECHNIQUE: 2 views were obtained with the C-arm in the OR with the above procedure. Total fluoroscopy time was 21 seconds. Radiation dose was 17.07 mGy. Comparison: Comparison is made to MRI lumbar spine 01/19/2023 FINDINGS/IMPRESSION: Intraoperative images were obtained of lumbar spine decompression/fusion at L4 S1. Please correlate with intraoperative fluoroscopy and operative report. ACT 112: Negative or not required by law. Electronically signed by: Boone Belle M.D. 01/25/2023 4:16 PM Hospital Course (1) Back pain: Back pain Secondary to Lumbar spinal stenosis Postoperative acute blood loss anemia Pt reports having back pain for years but now unfortunately worsening and has difficulty to function at home, reports using a walker at home but per daughters it's difficult to deal with the pain. takes gabapentin tramadol hydrocodone --MRI Lumbar Spine:Multilevel degenerative changes with up to severe canal stenosis, AP diameter and 3 mm, and severe bilateral neuroforaminal stenosis. Pain management, orthopedics consulted S/P: Lumbar decompression, fusion surgery by Dr. Marina on 01/25/2023. Bowel regimen to prevent constipation Continue P T/OT Pain control Fall precautions No indication for blood transfusion currently Leukocytosis resolved Waiting for rehab placement Hemoglobin 9.4 today Plan to discharge to Rehab facility today e Hyperkalemia -> resolved Hold lisinopril for now given low BP/Hyperkalemia Monitor potassium levels Hypertension BP relatively low Hold lisinopril for now Continue metoprolol, Imdur with holding parameters Received IV fluids Monitor Hypomagnesemia -> resolved Replete electrolytes as needed (2) CAD (coronary artery disease): S/P Stent to RCA in 2009 -continue aspirin, metoprolol, statin, imdur --Echo :mild concentric LVH, LV wall motion is normal, LV systolic function is normal with EF 55 to 60%, aortic valve sclerosis moderate without significant aortic valvular stenosis and grade 1 diastolic dysfunction -Continue home medications (3) HTN (hypertension): Hyperlipidemia -continue statin (4) Spinal stenosis: -as above (5) CKD (chronic kidney disease) stage 3, GFR 30-59 ml/min: Baseline: 1.1-1.3 Monitor renal function Plan DVT Px: SCDs for now Encourage to ambulate Code Status DNI/DNR Disposition SNF Total Time Total Time Spent Total Time Spent (In Minutes): 54 minutes Discharge Plan Discharge Items Patient Disposition: Transfer Inpatient Rehab Fac Reason For Visit: BACK PAIN Discharge Diagnosis: Lumbar spinal stenosis with radiculopathy Hyperkalemia Activity: As commented below Exercise/Sports: As tolerated Non-emergency contact: Primary Care Provider and Surgeon Call non-emergency contact if: you have any medication questions, your symptoms worsen, your pain is concerning for you and you have a fever Follow-up/Referrals: Bj Mario, [Primary Care Provider] - ( ) Diet: Regular Addtl Attending Provider Instructions: ACTIVITY RECOMMENDATIONS: SELF CARE INSTRUCTIONS AFTER THORACIC/LUMBAR FUSIONS 1. You may walk to your tolerance. It is good exercise for your legs and back. Expect some back and intermittent leg aches and pains. 2. You may perform "counter-top" level activities (make a sandwich, sharri with a project, etc.). 3. No bending or lifting of more than 10 pounds or back twisting of any nature (roll like a log when turning in bed). 4. You may ride in a car for 20-30 minutes at a time. No driving until after your first visit with your doctor. 5. Frequent changes of position and restricting sitting to 30 minutes at a time will help limit the amount of back spasms and stiffness you may experience. 6. You may discontinue the use of ambulatory aids (cane, crutches, etc.) once your strength and confidence allow. 7. You may screw machine operator single spindle the shower and let water strike your incision when you arrive home at least once daily. Do not take a tub bath, sit in a hot tub or go into a swimming pool until after your first recheck in the office. SPECIAL CARE INSTRUCTIONS: VERY IMPORTANT TO READ AND REVIEW A. Your surgical incision has been closed with a cosmetic suture under the skin that will dissolve in about 6 weeks. In 14 days, you can use a pair of clean scissors and cut the suture that is left outside of the skin at the ends of your incision. 1. The small skin tapes can be removed 7 days after surgery if they have not fallen off by that point. 2. You may keep the wound open to air as much as possible to promote healing after post-op day number 5 unless told otherwise by your doctor. 3. If you think the wound looks like it is becoming infected (redness or worsening drainage) and/or you are experiencing fever, chill or worsening back pain and muscle spasms, contact the office so that we may evaluate you as soon as possible. B. Complications are uncommon, but please contact us if you have any signs or symptoms of: 1. wound infection (fever higher than 102.5 degrees F, redness, separation of wound, drainage, or increasing pain from the incision) 2. blood clots in legs (pain, swelling, redness and warmth in legs) 3. urinary tract infection (fever higher than 102.5 degrees F, burning upon urination or increased frequency of urination) 4. nerve problems (inability to walk on your toes or heels, numbness, loss of bowel or bladder control) 5. any other symptoms that concern you C. Please call the office at if you have any concerns or questions about your operation or recovery. D. No smoking! Smoking drastically decreases the chance of a solid fusion. E. Do not take any anti-inflammatory medications (Indocin, Advil, Motrin, Aspirin, Naprosyn, etc.) as these may inhibit the chance of a solid fusion. Tylenol is okay to take for pain. MANAGING PAIN AFTER SPINAL SURGERY 1. Narcotic medication is intended for short-term use and will be provided for surgical pain. Surgical pain usually lasts for a period of 4-6 weeks. Narcotic medication includes Percocet, Vicodin, Darvocet, Tylenol #3 or Lortab. 2. Longer-term pain is more appropriately treated with non-narcotic medication such as Tylenol ES. 3. Muscle spasm is not appropriately treated with narcotics. Muscle relaxers such as Soma, Flexeril or Skelaxin can be used along with Tylenol ES. 4. Remember that we all live with some "aches and pains". This is not unusual or uncommon after an injury or as we get older. a. Back pain is expected and may include muscle spasms for 4 to 6 weeks after surgery. The pain should gradually improve. If the pain worsens for no apparent reason, please contact the office. b. Intermittent leg pain may also be experienced and should not be concerned about unless it worsens for no apparent reason. If so, please contact the office. 5. We will provide appropriate medication within the normal guidelines of their prescribed use. We will also be very cautious and aware of potential abuse and extended duration of patients' medication needs. a. Pain medications are for your comfort and to assist with sleep and rest so that the tissue can heal. They are not provided in order to return to normal activity and should not be used through the day. To do so or worsening pain at night can result from ongoing tissue damage and development of tolerance to the prescribed medicine. 6. Please allow 2-3 days to process refills. Prescriptions will not be mailed but must be picked up at the office. FOLLOW UP VISIT: Keep your scheduled follow-up appointment. Any questions, please call the office at . Addtl Plumber'S Assistant Provider Instructions: Follow-up with your primary care physician Dr. Mario in 1 week upon discharge from rehab facility Follow-up with your surgeon Dr. Marina as instructed. Seek immediate medical attention if your symptoms reoccur or worsen Please take all medications as instructed on discharge list below. Please call if you have any questions or problems. You can reach a [facility] hospitalist on duty at [facility] 24 hours a day by calling [phone] Pending Studies at Discharge: No Stand-Alone Forms: My [facility] Skilled Items Patient informed of condition?: Yes DNR: No Discharge Level of Care: Acute rehab Communicable Disease: No Discharge Prognosis: Improving Lines: None Urinary Catheter: No Medications and DC Order Prescriptions: New baclofen 10 mg Tablet 10 mg PO TID PRN (Reason: muscle spasm) Qty: 30 0RF docusate sodium 100 mg Capsule 100 mg PO BID Qty: 30 0RF oxycodone 5 mg Tablet 5 mg PO Q8H PRN (Reason: pain) Qty: 10 0RF Continued diclofenac sodium 1 % kit 0 g topical QID Rx Instructions: 11/29/22- pt isnt sure if she still uses this apply to single knee, ankle, foot; for foot includes sole/toes/top of foot timolol maleate 0.5 % drops 1 drp ophthalmic (eye) DAILY isosorbide mononitrate 30 mg tablet extended release 24 hr 0 mg PO DAILY famotidine 20 mg tablet 20 mg PO BID travoprost [Travatan Z] 0.004 % Drops 1 drp OPB HS aspirin 81 mg Tablet,Delayed Release (Dr/Ec) 81 mg PO PM metoprolol succinate 25 mg tablet extended release 24 hr 12.5 mg PO PM rosuvastatin 20 mg tablet 20 mg PO PM cholecalciferol (vitamin D3) [Vitamin D3] 1,000 unit Tablet 1,000 unit PO PM ropinirole 0.25 mg Tablet See Rx Instructions .ROUTE .COMPLEX Rx Instructions: Per Pt she states she take 2 tablets, one AM and one PM. Pt maybe confused on how to take medication. Fill History is 0.25 mg QHS acetaminophen 500 mg Tablet 500 mg PO Q6H PRN (Reason: Pain) gabapentin 300 mg capsule See Rx Instructions .ROUTE .COMPLEX Rx Instructions: Per pt she takes 3 capsules daily instead of twice daily Held furosemide 20 mg tablet 20 mg PO DAILY Hold Instructions: Hold taking for 1 week lisinopril 10 mg tablet 10 mg PO PM Hold Instructions: Until further instructions by Primary Care Physician Discontinued tramadol 50 mg Tablet 50 mg PO Q6H PRN (Reason: Pain) Discharge Orders: Discharge Order (Routine); Ordered 01/30/23 Ordered By: Wilson Presley Admission Data Admit Date/Time: 01/18/23 18:15 Attending Provider: Wilson Presley Admit Provider: Kvng Barahona Primary Care Provider: Bj Mario Other Providers: Kvng Barahona ; Chapo Perez ; Jace Marina ; Susannah Martinez ; Scar Graham [facility] [place] ; [place]
== END 2023-01-30 11:06 | DRG 454 ==
LOC: ED 11:32 → EDINP 18:15 → SUATTDRO 18:15 → 2N 01-19 02:21 → 3N 01-25 15:40